=== PATIENT | female | born 1985 | race Caucasian/White ===

== ENCOUNTER 2018-01-25 13:47 | Emergency (ER) | payer SELFPAY ==
[2018-01-25 13:52] VITALS: BP 173/112; PULSE 104; RESP 16; TEMP 36.8; O2SAT 96; BMI 30.9
[2018-01-25] MEDS: HYDROcodone Bitartrate/Apap 5/325 Tablet PO (14:40)
--- NOTE | 2018-01-25 14:48 | RAD_ITS ---
STUDY: X-RAY - LEFT SHOULDER REASON FOR EXAM: Female, 32 years old. Pain following injury. TECHNIQUE: 2 view(s) of the shoulder. COMPARISON: None. FINDINGS: Normal glenohumeral articulation. Normal acromioclavicular joint. Normal acromion. Normal humeral head and visualized proximal humerus. The soft tissue structures are unremarkable. Normal visualized pulmonary apex. RAD/Shoulder min 2 Views IMPRESSION: Normal x-ray examination of the shoulder. Electronically Signed: Shalom Lewis MD at 15:04 EDT Tel [phone], Service support ,
--- NOTE | 2018-01-25 15:08 | ED.VISSUMM ---
- ER Visit Summary Date of Service: 01/25/18 Chief Complaint: Left shoulder pain after traumatic injury History of Present Illness: The patient is a 32 F who is right-handed and was doing flips. She landed on her left shoulder. Her arm was initially outstretched. She states she cannot move it. She denies paresthesia, anesthesia motors. She denied head trauma. Denies neck pain. No radicular pain. She denies any cardiac respiratory symptoms. Physical Examination: Patient vitals are noted. She appears in discomfort. She is holding her left upper extremity internally rotated and adductor. Radial pulses palpable. Axillary, median, radial and ulnar function intact. There is no pain the patient of the clavicle or AC joint. There is pain abrasion of the proximal humerus. She is apprehensive will not allow me to AB duct her left arm. There is no pain the patient of the lateral medial epicondyle has no pain the patient malignant process. Is no pain the patient over the radial head with supination pronation. Is no pain the patient with distal radius ulna. No pain patient with carpal bones, metacarpal bones or phalanges. Test Results: Two-view x-ray of the shoulder was obtained and reveals no evidence of fracture to the clavicle there is any widening of the AC joint. There is no fracture proximal humerus. Emergency Department Course and Treatment: X-ray was obtained to evaluate for fracture. Based on my dictation the x-ray was negative and patient allowed me now to AB duct to 90 degrees. She had negative drop test. She was medicated with one [place] tablet. Treatment Plan: Rest, ice, pendulous exercises and opiate analgesia since she had anaphylaxis to NSAIDs. Disposition: Discharge to home Impression: Left shoulder strain initial encounter This note was generated with [employer] dictation software. It may contain incorrect words, spelling, and punctuation that were not noted in review of the chart prior to signing ED Disposition - Plan for ED Patient: Disposition: Home or Assisted Living Chief Complaint: Upper Extremity Injury Instructions: ED Sprain Shoulder Prescriptions: Hydrocodone Bitart/Apap 5-325 [[place] 5MG-325MG] 1 tab PO Q6H PRN PRN 3 Days #10 tab PRN Reason: Pain Referrals: Kamari Pro MD [Primary Care Provider] - 3-5 Days if not improving
--- NOTE | 2018-01-25 15:13 | ED.DCSUM_ITS ---
- ER Visit Summary Date of Service: 01/25/18 Chief Complaint: Left shoulder pain after traumatic injury History of Present Illness: The patient is a 32 F who is right-handed and was doing flips. She landed on her left shoulder. Her arm was initially outstretched. She states she cannot move it. She denies paresthesia, anesthesia motors. She denied head trauma. Denies neck pain. No radicular pain. She denies any cardiac respiratory symptoms. Physical Examination: Patient vitals are noted. She appears in discomfort. She is holding her left upper extremity internally rotated and adductor. Radial pulses palpable. Axillary, median, radial and ulnar function intact. There is no pain the patient of the clavicle or AC joint. There is pain abrasion of the proximal humerus. She is apprehensive will not allow me to AB duct her left arm. There is no pain the patient of the lateral medial epicondyle has no pain the patient malignant process. Is no pain the patient over the radial head with supination pronation. Is no pain the patient with distal radius ulna. No pain patient with carpal bones, metacarpal bones or phalanges. Test Results: Two-view x-ray of the shoulder was obtained and reveals no evidence of fracture to the clavicle there is any widening of the AC joint. There is no fracture proximal humerus. Emergency Department Course and Treatment: X-ray was obtained to evaluate for fracture. Based on my dictation the x-ray was negative and patient allowed me now to AB duct to 90 degrees. She had negative drop test. She was medicated with one [place] tablet. Treatment Plan: Rest, ice, pendulous exercises and opiate analgesia since she had anaphylaxis to NSAIDs. Disposition: Discharge to home Impression: Left shoulder strain initial encounter This note was generated with [employer] dictation software. It may contain incorrect words, spelling, and punctuation that were not noted in review of the chart prior to signing ED Disposition - Plan for ED Patient: Disposition: Home or Assisted Living Chief Complaint: Upper Extremity Injury Instructions: ED Sprain Shoulder Prescriptions: Hydrocodone Bitart/Apap 5-325 [[place] 5MG-325MG] 1 tab PO Q6H PRN PRN 3 Days #10 tab PRN Reason: Pain Referrals: Kamari Pro MD [Primary Care Provider] - 3-5 Days if not improving
[2018-01-25 15:47] VITALS: BP 168/94; PULSE 89; RESP 16; O2SAT 98
== END 2018-01-25 15:51 | disposition home or self-care (01) ==
LOC: ED 15:29
PROVIDERS: Emergency Provider Emergency Medicine; Family Provider Family Medicine; PCP Family Medicine
DX: S46.912A Strain of unspecified muscle, fascia and tendon at shoulder and upper arm level, left arm, initial encounter (principal); W19.XXXA Unspecified fall, initial encounter; Y93.43 Activity, gymnastics; Y92.9 Unspecified place or not applicable; Y99.9 Unspecified external cause status; Z79.899 Other long term (current) drug therapy
CPT/HCPCS: 73030; 99283

== ENCOUNTER → 2018-07-23 13:00 | Outpatient (CLI) | payer MEDICAID, SELFPAY ==
[2018-07-24 14:35] LABS: Chlamydia Trachomatis by PCR Negative (Negative); Neisserai gonorrhoeae by PCR Negative (Negative); Probe Check PASS; Sample Adequacy Control PASS; Specimen Processing Control PASS
[2018-07-31 16:10] LABS: HPV Reflexed? NOT INDICATED
== END ==
PROVIDERS: Visit Provider Obstetrics & Gynecology
DX: Z12.4 Encounter for screening for malignant neoplasm of cervix (principal); Z11.3 Encounter for screening for infections with a predominantly sexual mode of transmission
CPT/HCPCS: 87491; 87591; 87624; 88175; G0145

== ENCOUNTER 2020-07-23 11:47 | Outpatient (RCR) | payer MEDICAID, SELFPAY | END 2020-09-08 23:59 | LOC: IMMUN 11:47 | PROVIDERS: Referring Provider Family Medicine; Visit Provider Family Medicine | DX: Z23 Encounter for immunization (principal) | CPT/HCPCS: 0001A; 0002A; 91300 ==

== ENCOUNTER 2023-11-27 11:29 | Emergency (ER) | payer OTHER, SELFPAY ==
[2023-11-27 11:31] VITALS: BP 215/135; PULSE 101; RESP 16; TEMP 36.3; O2SAT 100; BMI 30.5
--- NOTE | 2023-11-27 11:36 | EKG12_ITS ---
Test Reason : Blood Pressure : / mmHG Vent. Rate : 088 BPM Atrial Rate : 088 BPM P-R Int : 142 ms QRS Dur : 090 ms QT Int : 382 ms P-R-T Axes : 003 018 043 degrees QTc Int : 462 ms Normal sinus rhythm Normal ECG Confirmed by Chevy Gann ([id number]), senior editor KAVON BARONE ([id number]) on 11/29/2023 8:16:27 AM Referred By: BRANDY Confirmed By:Chevy Gann
[2023-11-27 12:36] LABS: Absolute Lymphocyte Count 2.14 X10^3/uL (0.83-4.51); Absolute Neutrophil Count 6.8 X10^3/uL (2.0-7.7); Basophil# 0.04 X10^3/uL; Basophil% 0.4 % (0-1); Eosinophil# 0.08 X10^3/uL; Eosinophils% 0.8 % (0-5); Hematocrit 43.8 % (37-47); Hemoglobin 14.5 g/dL (12.0-15.0); Lymphocyte # 2.14 X10^3/ul (0.83-4.51); Mean Corp Hgb Conc 33.1 g/dL (32-36); Mean Corpuscular Hgb 30.1 pg (27.0-32.0); Mean Corpuscular Volume 91.1 fL (81-99); Mean Platelet Vol. 9.6 fl (6.2-12.0); Monocyte# 0.65 X10^3/uL; Monocyte% 6.7 % (0-10); NRBC Flagged by Analyzer 0 % (0-5); Neutrophil # 6.75 X10^3/uL (2.7-7.7); Neutrophil % 69.5 % (47-70); Platelet Count 260 K/mm3 (150-450); RBC Distribution Width CV 11.2 % (11.6-14.6); RBC Distribution Width SD 37.7 fl (35.1-43.9); Red Blood Count 4.81 M/mm3 (4.2-5.4); White Blood Count 9.7 K/mm3 (4.4-11.0)
--- NOTE | 2023-11-27 12:55 | RAD_ITS ---
STUDY: X-RAY CHEST REASON FOR EXAM: Female, 38 years old. Chest pain. TECHNIQUE: Single frontal view of the chest. COMPARISON: None. FINDINGS: The lungs are clear and expanded. There is no demonstrated pleural abnormality. Normal size heart. Normal mediastinum and jessica. Normal visualized pulmonary arteries. Normal visualized aortic arch and descending thoracic aorta. No abnormality of the visualized soft tissue structures of the upper abdomen. RAD/Chest 1 View (Portable) IMPRESSION: Normal x-ray examination of the chest. Electronically Signed: Anuj Mancilla MD at 13:12 EDT ,
[2023-11-27 13:00] VITALS: O2SAT 98
--- NOTE | 2023-11-27 13:02 | EDS_ITS ---
HPI History of Present Illness Chief Complaint: Shortness of Breath Informant: patient Narrative Narrative: 38-year-old female presenting to the emergency concerns for hypertension. Patient states that yesterday she developed a sore throat and some fatigue. Today after dropping her child off at school she decided to take a nap prior to going to work in case she was getting sick. She began to have some right arm discomfort and felt a flushed feeling that she has had before when she has had hypertension. She noticed some tightness particularly right side of her chest when she went to take a full breath. She did not feel any wheezing. No cough no rhinorrhea. Patient states that now she feels pretty good. She states that the right arm is more annoying. She is not currently treated for hypertension as she states has been very episodic and many years ago was the last time it happened to her. No headache. No neurologic deficits. PFSH PFSH Home Medications ?Medication ?Instructions ?Recorded ?Last Taken ?Type dextroamphetamine-amphetamine 15 25 mg PO BID 07/17/14 Unknown History mg tablet (Adderall) loratadine 10 mg tablet (Claritin) 10 mg PO DAILY PRN PRN Allergies 01/25/18 Unknown History clonidine HCl 0.1 mg tablet 0.1 mg PO Q6H PRN hypertensive 11/27/23 Unknown Rx emergency #10 tabs Allergy/AdvReac Type Severity Reaction Status Date / Time codeine Allergy Unknown Verified 11/27/23 11:31 naproxen Allergy Hives Verified 11/27/23 11:31 Social History Smoking Status: Never smoker [facility] ED Constitutional Constitutional ED: Denies chills, fever(s) or weight loss Eyes Eyes: Denies change in vision or diplopia ENT ENT ED: Reports sore throat; Denies ear pain or rhinorrhea Cardiovascular Cardiovascular: Reports chest pain; Denies orthopnea, palpitations or racing heartbeat Respiratory/Chest Respiratory/Chest: Reports dyspnea; Denies cough or orthopnea Gastrointestinal Gastrointestinal: Denies abdominal pain, diarrhea, nausea or vomiting Genitourinary Genitourinary ED: Denies dysuria, hematuria or urinary frequency Musculoskeletal Musculoskeletal: Denies arthralgias or myalgias Integumentary Denies abscess or rash Neurologic Neurologic: Denies headache(s) or weakness Psychiatric Psychiatric: Denies anxiety, depression, suicidal ideation or suicidal thoughts Endocrine Endocrinology: Denies polydipsia, polyphagia or polyuria Allergic/Immunologic Allergic/Immunologic ED: Denies mouth swelling, tongue swelling or urticaria EXAM Physical Exam Const Vital Signs: 11/27/23 11:31 11/27/23 12:27 11/27/23 13:00 Temperature 97.4 F L Temperature Source Temporal Pulse Rate 101 H Respiratory Rate 16 Respiratory Effort Normal Non-Labored Respiratory Depth Normal Respiratory Pattern Normal Blood Pressure 215/135 H Blood Pressure Mean 161 Pulse Ox 100 Oxygen Delivery Method Room Air Room Air Room Air 11/27/23 13:19 11/27/23 13:25 11/27/23 14:32 Temperature Temperature Source Pulse Rate 85 99 Respiratory Rate Respiratory Effort Respiratory Depth Respiratory Pattern Blood Pressure 185/120 H 200/128 H 192/103 H Blood Pressure Mean 141 152 132 Pulse Ox Oxygen Delivery Method 11/27/23 15:21 Temperature 98 F Temperature Source Pulse Rate 101 H Respiratory Rate 19 H Respiratory Effort Respiratory Depth Respiratory Pattern Blood Pressure 190/102 H Blood Pressure Mean 131 Pulse Ox 95 Oxygen Delivery Method Positive well nourished and well developed General Appearance ED: well developed HEENT Reports normocephalic, head/scalp atraumatic and moist mucous membranes Eyes PERRL and EOMs intact bilaterally Neck no lymphadenopathy, supple and no JVD Resp normal respiratory effort and clear to auscultation bilaterally Cardio regular rate, regular rhythm and no murmurs GI normal to inspection, nondistended, normoactive bowel sounds and non-tender Palpation: soft Back/Spine no CVA tenderness and normal ROM Extremity normal to inspection General Extremety ED: Negative for edema General Extremity: Negative for edema Neuro oriented x3 and CN's II-XII intact bilaterally Sensorium / Orientation: alert Motor Exam: strength 5/5 throughout Psych mental status grossly normal Mood & Affect: Negative for depressed or tearful Skin no rashes or lesions noted and no wounds MDM MDM MDM Narrative Medical decision making narrative: Differential diagnosis includes but not limited to acute coronary syndrome aortic dissection/aneurysm hypertensive urgency/emergency renal and liver dysfunction CBC is essentially normal. Troponin is normal. Normal creatinine. My independent interpretation of the chest x-ray is no acute process normal mediastinal silhouette. Patient received a dose of hydralazine and later clonidine. Her blood pressure is improved but still high however hesitant to take her much lower. Patient is feeling rather asymptomatic at the current time. I will write for some clonidine should her blood pressure rise again to a concerning range. The patient continues to have high blood pressure would recommend PCP or cardiology follow-up. Return if symptomatic or concerns. Patient is comfortable with this plan. History & Record Review Discussion w/independent historian: Patient Lab Data Attestation: I reviewed the patient's lab results. Labs: Laboratory Results - last 24 hr 11/27/23 11/27/23 11/27/23 12:10 12:10 12:31 WBC Cancelled 9.7 Corrected WBC Cancelled RBC Cancelled 4.81 Hgb Cancelled 14.5 Hct Cancelled 43.8 MCV Cancelled 91.1 MCH Cancelled 30.1 MCHC Cancelled 33.1 RDW Std Deviation Cancelled 37.7 RDW Coeff of Maria Teresa Cancelled 11.2 L Plt Count Cancelled 260 MPV Cancelled 9.6 Immature Gran % (Auto) Cancelled 0.600 Neut % (Auto) Cancelled 69.5 Lymph % (Auto) Cancelled 22.0 Bond % (Auto) Cancelled 6.7 Eos % (Auto) Cancelled 0.8 Baso % (Auto) Cancelled 0.4 Absolute Neuts (auto) Cancelled 6.8 Absolute Lymphs (auto) Cancelled 2.14 Total Counted Cancelled Neutrophils % (Manual) Cancelled Band Neutrophils % Cancelled Lymphocytes % (Manual) Cancelled Monocytes % (Manual) Cancelled Eosinophils % (Manual) Cancelled Basophils % (Manual) Cancelled Metamyelocytes % Cancelled Myelocytes % Cancelled Promyelocytes % Cancelled Blast Cells % Cancelled Plasma Cell % (Manual) Cancelled Other Cells % Cancelled Nucleated RBC % Cancelled 0 Nucleated RBCs/100 WBC Cancelled Differential Comment Cancelled Diff Path Review Cancelled Hypersegmented Neuts Cancelled Atypical Lymphocytes Cancelled Reactive Lymphocytes Cancelled Smudge Cells Cancelled Toxic Granulation Cancelled Toxic Vacuolation Cancelled Dohle Bodies Cancelled Valerie Rods Cancelled Platelet Estimate Cancelled Plt Morphology Comment Cancelled RBC Morphology Cancelled Cancelled Polychromasia Cancelled Hypochromasia Cancelled Basophilic Stippling Cancelled Anisocytosis Cancelled Microcytosis Cancelled Macrocytosis Cancelled Spherocytes Cancelled Sickle Cells Cancelled Target Cells Cancelled Tear Drop Cells Cancelled Ovalocytes Cancelled Stomatocytes Cancelled [place] Bodies Cancelled [place] Cells Cancelled Bite Cells Cancelled Crenated Cell Cancelled Acanthocytes (Spur) Cancelled Rouleaux Cancelled Schistocytes Cancelled Sodium Cancelled Potassium Cancelled Chloride Cancelled Carbon Dioxide Cancelled Anion Gap Cancelled BUN Cancelled Creatinine Cancelled Estim Creat Clear Calc Cancelled Est GFR (MDRD) Af Amer Cancelled Est GFR (MDRD) Non-Af Cancelled BUN/Creatinine Ratio Cancelled Glucose Cancelled Calcium Cancelled Troponin I High Sens Cancelled 11/27/23 12:52 WBC Corrected WBC RBC Hgb Hct MCV MCH MCHC RDW Std Deviation RDW Coeff of Maria Teresa Plt Count MPV Immature Gran % (Auto) Neut % (Auto) Lymph % (Auto) Bond % (Auto) Eos % (Auto) Baso % (Auto) Absolute Neuts (auto) Absolute Lymphs (auto) Total Counted Neutrophils % (Manual) Band Neutrophils % Lymphocytes % (Manual) Monocytes % (Manual) Eosinophils % (Manual) Basophils % (Manual) Metamyelocytes % Myelocytes % Promyelocytes % Blast Cells % Plasma Cell % (Manual) Other Cells % Nucleated RBC % Nucleated RBCs/100 WBC Differential Comment Diff Path Review Hypersegmented Neuts Atypical Lymphocytes Reactive Lymphocytes Smudge Cells Toxic Granulation Toxic Vacuolation Dohle Bodies Valerie Rods Platelet Estimate Plt Morphology Comment RBC Morphology Polychromasia Hypochromasia Basophilic Stippling Anisocytosis Microcytosis Macrocytosis Spherocytes Sickle Cells Target Cells Tear Drop Cells Ovalocytes Stomatocytes [place] Bodies [place] Cells Bite Cells Crenated Cell Acanthocytes (Spur) Rouleaux Schistocytes Sodium 138 Potassium 4.1 Chloride 107 Carbon Dioxide 28.0 Anion Gap 3 L BUN 11 Creatinine 0.69 Estim Creat Clear Calc 111.41 Est GFR (MDRD) Af Amer 121 Est GFR (MDRD) Non-Af 100 BUN/Creatinine Ratio 15.9 Glucose 107 H Calcium 9.1 Troponin I High Sens 6 Radiography Diagnostic Testing: Clinical Impression(s) from Imaging Studies Chest X-Ray 11/27/23 12:55 IMPRESSION: Normal x-ray examination of the chest. Electronically Signed: Anuj Mancilla MD at 13:12 EDT Reading Location ID and State: [facility] / [place] , Service support , EKG Initial EKG: Attestation: I personally reviewed and interpreted this EKG as follows: Comments: Normal sinus rhythm ventricular rate of 88 bpm Discharge Plan Triage Chief Complaint: Shortness of Breath ED Provider: Lauri Puga Dx/Rx/DC Orders Clinical Impression: Hypertensive urgency, Chest pain Instructions: ED High Blood Pressure Hypertension Prescriptions: New clonidine HCl 0.1 mg tablet 0.1 mg PO Q6H PRN (Reason: hypertensive emergency) Qty: 10 0RF No Action dextroamphetamine-amphetamine [Adderall] 15 MG tablet 25 mg PO BID loratadine [Claritin] 10 MG tablet 10 mg PO DAILY PRN PRN (Reason: Allergies) Stand Alone Forms: ED Work / School Excuse, Work Status Form Primary Care Provider: Care Physician,No Primary Referrals: Chevy Gann MD [Med Staff - Active Staff] - As Needed Care Physician,No Primary [Primary Care Provider] - Activity Restrictions/Additional Instructions: Please take the clonidine if you find your systolic (top number) pressure greater than 200 or your diastolic pressure (bottom number greater than 115) If you continue to have elevated pressures I do recommend following up with primary care or the cash applications representative listed above Print Language: Martiniquais Disposition Disposition: Home, Self Care Discharge Date/Time: 11/27/23 15:27
[2023-11-27 13:15] LABS: Anion Gap 3 (5-15); BUN 11 mg/dL (7-18); BUN/Creat Ratio 15.9 RATIO (10-20); Calcium,Total 9.1 mg/dL (8.5-10.1); Chloride 107 mmol/L (98-107); Creatinine, Serum 0.69 mg/dL (0.55-1.02); EST Glomerular Filtration Rate 100 mL/min (>60); Est Glom Filt Rate - Afr Amer 121 mL/min (>60); Estimated Creatinine Clearance 111.41 ml/min; Glucose 107 mg/dL (74-106); Potassium 4.1 mmol/L (3.5-5.1); Sodium Level 138 mmol/L (136-145); Troponin-I HS (w/2H Reflex) 6 pg/mL (3.0-54.0)
[2023-11-27 13:19] VITALS: BP 185/120; PULSE 85
[2023-11-27] MEDS: hydrALAZINE 20 MG/ML Vial IV (13:19)
[2023-11-27 13:25] VITALS: BP 200/128
[2023-11-27 14:32] VITALS: BP 192/103; PULSE 99
[2023-11-27] MEDS: cloNIDine HCl 0.1 MG Tablet PO (14:33)
[2023-11-27 14:54] LABS: Reflex Troponin-HS? (from REC) Y
--- NOTE | 2023-11-27 15:20 | ED.RN ---
provider notified of pt elevated blood pressure. per Dr. Puga pt is still okay to DC.
[2023-11-27 15:21] VITALS: BP 190/102; PULSE 101; RESP 19; TEMP 36.6; O2SAT 95
[2023-11-27 15:35] LABS: Troponin-I HS 7 pg/mL (3.0-54.0)
== END 2023-11-27 15:27 | disposition home or self-care (01) ==
PROVIDERS: Emergency Provider Emergency Medicine; Visit Provider Emergency Medicine
DX: I16.0 Hypertensive urgency (principal); R07.9 Chest pain, unspecified; R06.00 Dyspnea, unspecified; I10 Essential (primary) hypertension; Z79.899 Other long term (current) drug therapy
CPT/HCPCS: 71045; 80048; 84484; 85025; 93005; 96374; 99283; A4216

== ENCOUNTER → 2024-08-19 | Outpatient (CLI) | payer OTHER, SELFPAY ==
--- NOTE | 2024-08-19 10:58 | RAD_ITS ---
PROCEDURE: FOOT MIN 3 VIEWS N/A REASON FOR EXAM: PAIN Of the great toe. TECHNIQUE: 3 views of the right foot. COMPARISON: None FINDINGS: Bones: No visible fracture. No suspicious bone lesion. Tiny spur at the insertion of the Achilles tendon. Joints: Moderate degree of degenerative changes at the 1st metatarsophalangeal joint in keeping with osteoarthritis. No evidence of fracture or dislocation. Soft tissues: Mild degree of soft tissue swelling. 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 No acute fracture or dislocation. Mild degree of soft tissue swelling. Reading Location: [facility]
== END | disposition home or self-care (01) ==
LOC: MTRAD 10:58
PROVIDERS: Referring Provider Physician Assistant; Visit Provider Physician Assistant
DX: M79.671 Pain in right foot (principal)
CPT/HCPCS: 73630

== ENCOUNTER 2024-10-30 20:40 | Inpatient (IN) | payer OTHER, SELFPAY ==
[2024-10-30] VITALS (9 sets, daily range): BP systolic 160–222; BP diastolic 95–121; PULSE 68–80; RESP 11–18; TEMP 36.6; O2SAT 98–100; BMI 29.3
--- NOTE | 2024-10-30 20:43 | EKG12_ITS ---
Test Reason : STROKE Blood Pressure : */* mmHG Vent. Rate : 73 BPM Atrial Rate : 73 BPM P-R Int : 152 ms QRS Dur : 94 ms QT Int : 428 ms P-R-T Axes : 33 26 51 degrees QTcB Int : 471 ms Normal sinus rhythm Normal ECG Confirmed by MAE SCHWAB, STELLA ([id number]), city editor STEPHANIE VILLA ([id number]) on 10/31/2024 8:43:28 AM Referred By: Confirmed By: STELLA WALL MD
--- NOTE | 2024-10-30 20:44 | ED.VIS.STROK ---
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 Patient's last known well was 3:30 PM today. Patient has been having weakness of her left upper and lower extremities. Patient denies any difficulty with her speech. Patient admits to a headache and some nausea. Patient denies any vomiting. Patient denies any chest pain. Patient denies any fevers or chills. [facility] Medical History (Updated 10/31/24 @ 00:[address] Domenico Silva, ) HTN (hypertension) ADHD Migraine Strain of great toe, right Contusion of right great toe without damage to nail Home Medications ?Medication ?Instructions ?Recorded ?Last Taken ?Type dextroamphetamine-amphetamine 15 25 mg PO BID 07/17/14 Unknown History mg tablet (Adderall) loratadine 10 mg tablet (Claritin) 10 mg PO DAILY PRN PRN Allergies 01/25/18 Unknown History clonidine HCl 0.1 mg tablet 0.1 mg PO Q6H PRN hypertensive 11/27/23 Unknown Rx emergency #10 tabs dexamethasone sodium phosphate 0.1 1 drp ophthalmic (eye) 4X/DAY 10/30/24 Unknown History % eye drops dextroamphetamine-amphetamine 30 1 tab PO BID 10/30/24 Unknown History mg tablet erythromycin 5 mg/gram (0.5 %) eye 1 applic ophthalmic (eye) QPM 10/30/24 Unknown History ointment rizatriptan 10 mg tablet 10 mg PO Q2H PRN migraine headache 10/30/24 Unknown History Allergy/AdvReac Type Severity Reaction Status Date / Time codeine Allergy Unknown Verified 10/30/24 21:22 naproxen Allergy Hives Verified 10/30/24 21:22 Social History Smoking Status: Current every day smoker tobacco type: e-cigarettes EXAM Physical Exam Const Vital Signs: 10/30/24 20:41 10/30/24 20:50 10/30/24 20:50 Temperature 98 F Temperature Source Oral Pulse Rate 80 Respiratory Rate 17 Blood Pressure 222/121 H Blood Pressure Mean 154 Pulse Ox 100 Oxygen Delivery Method Room Air Room Air 10/30/24 21:00 10/30/24 21:15 10/30/24 21:30 Temperature Temperature Source Pulse Rate 70 68 Respiratory Rate 11 L 17 Blood Pressure 201/116 H 188/109 H 171/102 H Blood Pressure Mean 144 135 125 Pulse Ox 99 99 Oxygen Delivery Method Room Air Room Air 10/30/24 22:00 10/30/24 22:30 10/30/24 23:00 Temperature Temperature Source Pulse Rate 68 68 69 Respiratory Rate 15 14 15 Blood Pressure 172/97 H 160/107 H 162/99 H Blood Pressure Mean 122 124 120 Pulse Ox 98 99 100 Oxygen Delivery Method Room Air Room Air Room Air 10/30/24 23:14 Temperature 98 F Temperature Source Pulse Rate 72 Respiratory Rate 18 Blood Pressure 163/95 H Blood Pressure Mean 117 Pulse Ox 100 Oxygen Delivery Method Positive well nourished and well developed General Appearance ED: well developed and NAD HEENT Reports moist mucous membranes Neck supple and no JVD Resp normal respiratory effort and clear to auscultation bilaterally Cardio Rate: regular rate Rhythm: regular rhythm GI soft to palpation, non-tender and non-distended Extremity normal to inspection General Extremety ED: Negative for deformity or edema General Extremity: Negative for deformity or edema Neuro oriented x3 and CN's II-XII intact bilaterally Didier Coma Scale: document GCS findings Spontaneous Obeys Commands Oriented 15 Sensorium / Orientation: alert Speech: speech normal MDM MDM MDM Narrative Medical decision making narrative: Prehospital stroke alert was called. Upon arrival, patient was evaluated in the ambulance bay. Patient had a left upper and lower extremity weakness. Patient was taken immediately to CT scan for CT scan of the brain to assess for intracranial bleeding and stroke. CTA of the head and neck was also obtained to assess for large vessel occlusion and vascular stenosis. Chest x-ray will be obtained to assess for pneumonia or bronchitis. EKG will be obtained to assess for cardiac dysrhythmia and cardiac ischemia. CBC will be obtained to assess for leukocytosis and anemia. Basic metabolic profile will be obtained to assess for electrolyte abnormality renal function. PT with INR and PTT will be obtained to assess for coagulopathy. High-sensitivity troponin will be obtained to assess for cardiac ischemia. 2-hour repeat high-sensitivity troponin will be obtained to assess for ongoing cardiac ischemia. Lab Data Attestation: I reviewed the patient's lab results. Lab results narrative: CBC was reviewed. Hemoglobin was slightly elevated at 18.5. Hematocrit was slightly elevated at 54.8. The remainder is within normal limits. PT with INR and PTT were reviewed and were within normal limits. Basic metabolic profile was reviewed and was essentially within normal limits. Initial high-sensitivity troponin was reviewed and was less than 6. Labs: Laboratory Results - last 24 hr 10/30/24 10/30/24 20:40 22:45 WBC 10.5 RBC 6.08 H Hgb 18.5 H* Hct 54.8 H MCV 90.1 MCH 30.4 MCHC 33.8 RDW Std Deviation 39.9 RDW Coeff of Maria Teresa 12.1 Plt Count 311 MPV 10.0 Immature Gran % (Auto) 0.600 Neut % (Auto) 79.3 H Lymph % (Auto) 15.0 L Wilcox % (Auto) 4.2 Eos % (Auto) 0.4 Baso % (Auto) 0.5 Absolute Neuts (auto) 8.3 H Absolute Lymphs (auto) 1.57 Nucleated RBC % 0 PT 11.8 INR 0.9 APTT 25.8 Sodium 141 Potassium 3.4 Chloride 100 Carbon Dioxide 24.6 Anion Gap 16 H BUN 13 Creatinine 0.80 Estim Creat Clear Calc 93.24 Est GFR (MDRD) Non-Af 95 BUN/Creatinine Ratio 16.5 Glucose 92 Hemoglobin A1c 5.4 Calcium 10.5 Troponin T High Sens < 6 Troponin T Hi Sens 2 Hr < 6 TSH 3.230 Radiography Chest X-Ray - ED: 1 View, Read by ED Physician, Read by Radiologist and No Acute Disease Diagnostic Testing: Clinical Impression(s) from Imaging Studies Brain CT 10/30/24 20:46 IMPRESSION: Left frontal lobe periventricular white matter focal hypodensity measuring approximally 7 x 7 mm, which may reflect a lacunar infarction however acute infarction is not entirely excluded. Dr. Silva was notified by Jeanette De Jesus at 9:01 pm EST on 10/30/24. Reading Location: [facility] Head/Neck CTA 10/30/24 20:52 IMPRESSION: No acute large vessel occlusion. No high grade stenosis. Reading Location: [facility] Chest X-Ray 10/30/24 21:41 IMPRESSION: No acute cardiopulmonary disease. Reading Location: [facility] CT scan of the brain was obtained. There is a left frontal lobe periventricular hypodensity measuring approximately 7 x 7 mm. This could be a lacunar infarct. This was interpreted by the radiologist and was also independently reviewed by myself. CTA of the head and neck was obtained. There is no acute large vessel occlusion. There is no high-grade stenosis. This was interpreted by the radiologist and was also independently reviewed by myself. Portable 1 view chest x-ray was obtained. On my independent interpretation, lung de leon are clear. There is normal cardiac silhouette. Bony thorax is normal. There is no acute process noted. Radiologist also interpreted the x-ray and agrees. EKG Initial EKG: Attestation: I personally reviewed and interpreted this EKG as follows: Interpretation: Sinus Rhythm (73) and No Acute Injury Pattern Comments: EKG was obtained. On my independent interpretation, it showed a normal sinus rhythm with a rate of 73. MI interval, QRS interval, and QTc intervals were all normal. [place] was normal. There are no acute ST or T wave changes. Prior EKG tracings: available for review Prior: Unchanged (11/27/2023) Management Discussion w/another healthcare provider: Hospitalist, Cafeteria Server (Stroke neurologist [facility]) and Radiologist Treatment and Re-Evaluation Narrative: Patient was evaluated by stroke neurologist. Patient is outside the window for tenecteplase. Patient's blood pressure remained elevated. Patient was given labetalol for her blood pressure. Patient was given Reglan, Benadryl, and IV fluids for migraine headache. Patient states her headache improved after this. Patient was advised of her findings. Patient was advised of the need for admission to the hospital for further stroke evaluation. Patient is agreeable with this. Case was discussed with the hospitalist. He will admit the patient for observation. Patient understood and was agreeable with plan. All questions were answered. Critical Care Time Critical Care Time: Yes Critical care time (excluding procedures): 30-74 minutes (36), Including time spent:, Discussing w/Patient &/or Family/Geomorphologist, Discussing w/Consultants, Arranging Admission or Transfer and Performing Direct Patient Care at Bedside Discharge Plan Dx/Rx/DC Orders Clinical Impression: Acute left-sided weakness, Hypertension, Migraine headache, Overweight (BMI 25.0-29.9), Polycythemia Disposition Disposition: [facility] Discharge Date/Time: 10/31/24 00:35 NIHSS NIHSS 1a. Level of Consciousness: 0 - Alert; keenly responsive 1b. LOC Questions: 0 - Answers BOTH questions correctly 1c. LOC Commands: 0 - Performs BOTH tasks correctly 2. Best Gaze: 0 - Normal 4. Facial Palsy: 0 - Normal symmetrical movements 5a. Left Arm: 1 - Drift; arm drifts downward but doesn?t hit the bed 5b. Right Arm: 0 - No drift; arm holds 90 (or 45) degrees for full 10 seconds 6a. Left Le - No effort against gravity; leg falls to bed immediately 6b. Right Le - No drift; leg holds 30-degree position for full 5 seconds 8. Sensory: 0 - Normal; no sensory loss 9. Best Language: 0 - No aphasia; normal 10. Dysarthria: 0 - Normal Total: 4 Stroke Questions Stroke Team Activated: Yes Reviewed Inclusion/Exclusion criteria: Yes IV Thrombolytic Administered: No (Patient's symptoms began more than 3 hours prior to arrival.)
--- NOTE | 2024-10-30 20:46 | CT_ITS ---
PROCEDURE: STROKE BRAIN/HEAD WITHOUT CONT 10/30/2024 REASON FOR EXAM: NEURO DEFICIT, ACUTE, STROKE SUSPECTED TECHNIQUE: STROKE BRAIN/HEAD WITHOUT CONT Coronal and Sagittal reconstruction series were provided. One or more dose reduction techniques were used (e.g., Automated exposure control, adjustment of the mA and/or kV according to patient size, use of iterative reconstruction technique. RADIATION DOSE SUMMARY: DLP: 813 mGycm COMPARISON: none FINDINGS: Left frontal lobe periventricular white matter focal hypodensity measuring approximally 7 x 7 mm, which may reflect a lacunar infarction however acute infarction is not entirely excluded. There is no intracranial hemorrhage, or mass effect. There is no hydrocephalus or significant midline shift. No acute, depressed calvarial fractures. No large scalp hematomas. The paranasal sinuses are clear. CT/STROKE Brain/Head without Cont IMPRESSION: Left frontal lobe periventricular white matter focal hypodensity measuring appr oximally 7 x 7 mm, which may reflect a lacunar infarction however acute infarction is not entirely excluded. Dr. Silva was notified by Jeanette De Jesus at 9:01 pm EST on 10/30/24. Reading Location: [facility]
--- NOTE | 2024-10-30 20:52 | CT_ITS ---
PROCEDURE: STROKE CTA HEAD AND NECK W/CON 10/30/2024 REASON FOR EXAM: NEURO DEFICIT, ACUTE, STROKE SUSPECTED TECHNIQUE: STROKE CTA HEAD AND NECK W/CON Multiplanar Sagittal and Coronal images were obtained. CONTRAST: 100 mL of Isovue 370 One or more dose reduction techniques were used (e.g., Automated exposure control, adjustment of the mA and/or kV according to patient size, use of iterative reconstruction technique). RADIATION DOSE SUMMARY: DLP: 987 mGycm COMPARISON: none FINDINGS: The aortic arch demonstrates a type I configuration. The ostia of the great vessels are patent. There is conventional branching. The right CCA is patent. There is no significant stenosis of the right carotid bifurcation by NASCET criteria. The cervical right ICA is patent. The right MCA and right CARMEN appear patent. There is no large vessel occlusion. The left CCA is patent. There is no significant stenoses at the left carotid bifurcation by NASCET criteria. The cervical left ICA is patent. The left MCA and left CARMEN appear patent. There is no large vessel occlusion. The right vertebral artery arises from the right subclavian artery. The left vertebral artery arises from the left subclavian artery. Both vertebral arteries are patent. Both vertebral arteries join to form the patent basilar artery. Both posterior cerebral arteries arise from the tip of the basilar. 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 There is no large vessel occlusion. There is no enhancing intracranial mass. [place] cervical lymph nodes are identified. The thyroid gland is heterogeneous. The lung apices demonstrate no pneumothorax. No destructive osseous abnormalities identified. CT/STROKE CTA Head AND Neck W/Con IMPRESSION: No acute large vessel occlusion. No high grade stenosis. Reading Location: [facility]
[2024-10-30 20:58] LABS: Hematocrit 54.8 % (37-47); Immature Granulocytes Count 0.060 X10^3/uL (0.0-0.0); Mean Corp Hgb Conc 33.8 g/dL (32-36); Mean Corpuscular Volume 90.1 fL (81-99); Mean Platelet Vol. 10.0 fl (6.2-12.0); NRBC Flagged by Analyzer 0 % (0-5); Platelet Count 311 K/mm3 (150-450); RBC Distribution Width CV 12.1 % (11.6-14.6); RBC Distribution Width SD 39.9 fl (35.1-43.9); Red Blood Count 6.08 M/mm3 (4.2-5.4); White Blood Count 10.5 K/mm3 (4.4-11.0)
[2024-10-30 21:00] LABS: Hemoglobin 18.5 g/dL (12.0-15.0)
[2024-10-30 21:05] LABS: Prothrombin Time (Protime)PT. 11.8 SECONDS (11.7-14.9)
[2024-10-30 21:06] LABS: Partial Thromboplast Time 25.8 Seconds (24.1-36.2)
--- NOTE | 2024-10-30 21:20 | ED.RN ---
Pt's symptom worse after returbing from ct scan. NIHSS increased from initial 4 to 9. ED MD aware.
[2024-10-30] MEDS: DiphenhydrAMINE 50 MG/ML Syringe 25 MG IV (21:26)
[2024-10-30] MEDS: 0.9% Normal Saline (1000mL) 1,000 ML 999 ML IV (21:26)
--- NOTE | 2024-10-30 21:41 | RAD_ITS ---
PROCEDURE: CHEST 1 VIEW 10/30/2024 REASON FOR EXAM: NEURO DEFICIT, ACUTE, STROKE SUSPECTED TECHNIQUE: Frontal view of the chest. COMPARISON: 11/27/2023 FINDINGS: Lungs/Pleura: Clear. Heart/Mediastinum: Normal in size. Bones/Soft tissues: Within normal limits. RAD/Chest 1 View IMPRESSION: No acute cardiopulmonary disease. Reading Location: [id number]
[2024-10-30 21:48] LABS: Anion Gap 16 (5-15); BUN 13 mg/dL (4-19); BUN/Creat Ratio 16.5 RATIO (10-20); Calcium,Total 10.5 mg/dL (7.6-11.0); Carbon Dioxide 24.6 mmol/L (21.0-32.0); Chloride 100 mmol/L (98-108); Estimated Creatinine Clearance 93.24 ml/min (50-250); Glucose 92 mg/dL (70-99); Potassium 3.4 mmol/L (3.3-5.1); Troponin T High Sensitivity < 6 ng/L (<=14)
--- NOTE | 2024-10-30 22:13 | ED.RN ---
Symptoms wax and wane, at times pt states she has less sensation on left side, other times she states she cannot feel any sensation. Facial paralysis fluctuates as well, so does dysarthria.
--- NOTE | 2024-10-30 22:52 | ED.RN ---
Pts family states pt was moving her left foot prior to this RN entering room. Pt previously had no movement in same foot and leg. Pt now withdraws left leg when bottom of left foot touched. No states she cannot move left hand at all, however moves left arm out of way of face and controls fall to bed. Pt speaking without slurring words at this time as well.
[2024-10-30 23:13] LABS: Troponin T High Sens 2 HR < 6 ng/L (<=14)
--- NOTE | 2024-10-30 23:23 | HP.PCM.HOS_ITS ---
[facility] - General General Date of Admission: 10/30/24 Date of Service: 10/30/24 Chief Complaint: Acute Left-sided Weakness with Slurred Speech. HPI Narrative JAYDA MACKEY, is a 39 F with a past medical history of being overweight; with BMI of 29.3 this admission, essential hypertension; on prn clonidine, tobacco abuse, migraine headaches; on prn rizatriptan, ADHD; on dextroamphetamine-amphetamine BID and seasonal allergies; on loratadine who presents to [facility] ER complaining of acute Left-sided weakness with slurred speech. Ms. Mackey reports her symptoms began at approximately 3:30 PM earlier today when she developed a migraine headache with nausea yesterday and this a.m. but then she experienced the abrupt-onset of weakness in the Left arm and leg. She also admits to somewhat slurred speech with occassional muscle spasms. She states her symptoms were not made better or worse by anything. She denies related fever, chills, vomiting, abdominal pain, diarrhea, constipation, chest pain, palpitations, heart racing, lower extremity edema, dysuria, hematuria or rash. In the ER she was noted to have a highly elevated initial blood pressure of 222/121 mmHg with a corresponding brain CT without contrast that revealed left frontal lobe periventricular white matter focal hypodensity measuring ~7mm x ~7mm which may reflect lacunar infarction, however acute infarction is not entirely excluded followed by a CTA of the head and neck with IV contrast that revealed no acute large vessel occlusion or high-grade stenosis. The [facility] teleneurologist suspected ischemic CVA with a stroke NIHSS score of 11 and with thrombolytics not recommended since she was outside of the time window. She was also incidentally noted to have Polycythemia with hemoglobin of 18.5 g/dL present on admission. She was admitted to the PCU for ongoing care for status expected to extend beyond 2 midnights. [facility] Medical History (Updated 10/31/24 @ 00:[address] Nehemiah Haney, DO) HTN (hypertension) ADHD Migraine Strain of great toe, right Contusion of right great toe without damage to nail Home Medications ?Medication ?Instructions ?Recorded ?Last Taken ?Type dextroamphetamine-amphetamine 15 25 mg PO BID 07/17/14 Unknown History mg tablet (Adderall) loratadine 10 mg tablet (Claritin) 10 mg PO DAILY PRN PRN Allergies 01/25/18 Unknown History clonidine HCl 0.1 mg tablet 0.1 mg PO Q6H PRN hyperten sive 11/27/23 Unknown Rx emergency #10 tabs dexamethasone sodium phosphate 0.1 1 drp ophthalmic (e ye) 4X/DAY 10/30/24 Unknown History % eye drops dextroamphetamine-amphetamine 30 1 tab PO BID 10/30/24 Unknown History mg tablet erythromycin 5 mg/gram (0.5 %) eye 1 applic ophthalmic (eye) QPM 10/30/24 Unknown History ointment rizatriptan 10 mg tablet 10 mg PO Q2H PRN migraine he adache 10/30/24 Unknown History Allergy/AdvReac Type Severity Reaction Status Date / Time codeine Allergy Unknown Verified 10/30/24 21:22 naproxen Allergy Hives Verified 10/30/24 21:22 Social History Smoking Status: Current every day smoker tobacco type: e-cigarettes ROS ROS Narrative Review of Systems: Constitutional: Patient denies fever or chills. Eyes: Patient denies changes in vision or discharge from eyes. ENT: Patient denies runny nose, sore throat or ear pain. Resp: Patient denies shortness of breath or cough. CV: Patient denies chest pain, palpitations, heart racing or lower extremity edema. GI: Patient admits to nausea but she denies vomiting as per HPI. She denies abdominal pain, diarrhea or constipation. : Patient denies dysuria or hematuria. MSK: Patient admits to Left-sided weakness as per HPI. Skin: Patient denies rash, abscess, wounds or jaundice. Psych: Patient denies symptoms of uncontrolled depression or anxiety. Neuro: Patient admits to migraine headaches and sudden-onset Left-sided weakness with transient slurred speech as per HPI. Allergy: Patient denies lip swelling, tongue swelling or urticaria. Hematology: Patient denies easy bleeding or easy bruisability. Endocrinology: Patient denies polyuria, polydipsia, polyphagia or heat/cold intolerance. 14 point ROS otherwise negative except for positives noted above in HPI. Vital Signs Vital Signs Vital Signs: 10/30/24 20:41 10/30/24 20:50 10/30/24 20:50 Temperature 98 F Temperature Source Oral Pulse Rate 80 Respiratory Rate 17 Blood Pressure 222/121 H Blood Pressure Mean 154 Pulse Ox 100 Oxygen Delivery Method Room Air Room Air 10/30/24 21:00 10/30/24 21:15 10/30/24 21:30 Temperature Temperature Source Pulse Rate 70 68 Respiratory Rate 11 L 17 Blood Pressure 201/116 H 188/109 H 171/102 H Blood Pressure Mean 144 135 125 Pulse Ox 99 99 Oxygen Delivery Method Room Air Room Air 10/30/24 22:00 10/30/24 22:30 10/30/24 23:14 Temperature 98 F Temperature Source Pulse Rate 68 68 72 Respiratory Rate 15 14 18 Blood Pressure 172/97 H 160/107 H 163/95 H Blood Pressure Mean 122 124 117 Pulse Ox 98 99 100 Oxygen Delivery Method Room Air Room Air Weight Weight: 170 lb 13.732 oz Body Mass Index (BMI) 29.3 Physical Exam Const alert, oriented x3, no apparent distress, average body habitus and healthy appearing General Appearance: cooperative HEENT normocephalic, head/scalp atraumatic, hearing grossly normal bilaterally and moist oral mucous membranes Eyes PERRL, EOMs intact bilaterally and conjunctivae normal Neck no lymphadenopathy, supple and no JVD Resp normal respiratory effort, no retractions, no use of accessory muscles and clear to auscultation bilaterally Cardio regular rate and regular rhythm GI normal to inspection, nondistended, normoactive bowel sounds, soft to palpation, non-tender and non-distended Extremity normal to inspection, full ROM and no clubbing, cyanosis or edema Skin Skin Narrative: Patient has no evidence of rash, abscess, wounds or jaundice. Neuro oriented x3 and CN's II-XII intact bilaterally Neuro Narrative: Patient has moderate left-sided weakness in the upper and lower extremity. Her speech is not slurred at this time. Sensorium / Orientation: awake, alert, oriented to person, oriented to place and oriented to time Speech: speech normal Psych affect normal Results Medical Records Data Attestation: I reviewed the patient's medical records Lab / Micro Data Attestation: I reviewed the patient's lab results. 10/30/24 20:40 10/30/24 20:40 Labs: Laboratory Results - last 24 hr 10/30/24 20:40: WBC 10.5, RBC 6.08 H, Hgb 18.5 H*, Hct 54.8 H, MCV 90.1, MCH 30.4, MCHC 33.8, RDW Std Deviation 39.9, RDW Coeff of Maria Teresa 12.1, Plt Count 311, MPV 10.0, Immature Gran % (Auto) 0.600, Neut % (Auto) 79.3 H, Lymph % (Auto) 15.0 L, Sumner % (Auto) 4.2, Eos % (Auto) 0.4, Baso % (Auto) 0.5, Absolute Neuts (auto) 8.3 H, Absolute Lymphs (auto) 1.57, Nucleated RBC % 0, PT 11.8, INR 0.9, APTT 25.8, Sodium 141, Potassium 3.4, Chloride 100, Carbon Dioxide 24.6, Anion Gap 16 H, BUN 13, Creatinine 0.80, Estim Creat Clear Calc 93.24, Est GFR (MDRD) Non-Af 95, BUN/Creatinine Ratio 16.5, Glucose 92, Calcium 10.5, Troponin T High Sens < 6 10/30/24 22:45: Troponin T Hi Sens 2 Hr < 6 Imaging Radiology Impression Brain CT 10/30/24 20:46 IMPRESSION: Left frontal lobe periventricular white matter focal hypodensity measuring approximally 7 x 7 mm, which may reflect a lacunar infarction however acute infarction is not entirely excluded. Dr. Silva was notified by Jeanette De Jesus at 9:01 pm EST on 10/30/24. Reading Location: [facility] Head/Neck CTA 10/30/24 20:52 IMPRESSION: No acute large vessel occlusion. No high grade stenosis. Reading Location: [facility] Chest X-Ray 10/30/24 21:41 IMPRESSION: No acute cardiopulmonary disease. Reading Location: [facility] Assessment & Plan Assessment/Plan (1) Ischemic cerebrovascular accident (CVA): (2) Acute left-sided weakness: (3) Migraine headache: QUALIFIERS: Intractability: not intractable Migraine type: u nspecified Status migrainosus presence: without status migrainosus Qualified Code(s): G43.909 - Migraine, unspecified, not intractable, without status migrainosus (4) Tobacco abuse: (5) Polycythemia: (6) ADHD: QUALIFIERS: Attention deficit-hyperactivity disorder type: u nspecified Qualified Code(s): F90.9 - Attention-deficit hyperactivity disorder, unspecified type (7) Overweight (BMI 25.0-29.9): PLAN: Plan 1. Left-sided weakness with transient slurred speech and head CT without contrast that revealed Left frontal lobe periventricular white matter focal hypodensity measuring ~7mm x ~7mm which may reflect lacunar infarction, however acute infarction is not entirely excluded - Admit to PCU. Check MRI of the brain without contrast to confirm suspicion of CVA noted on CT. Check echocardiogram to evaluate LVEF. Give BASA and statin plus check TSH, B12, Folate, FRANKIE, UDS and Lipid Profile to expand evaluation. Finally, [facility] teleneurology will be consulted to see patient after her new imaging and laboratory test have been completed with help appreciated in advance. 2. Uncontrolled Hypertension with highly elevated initial blood pressure of 222/121 mmHg likely due to #1 - Allow for permissive hypertension until CVA definitively ruled out on MRI. 3. Migraine headaches complicating #1 & #2 - Hold rizatriptan until further notice to diminish risk of potential cerebral artery vasospasm. Give acetaminophen as needed for [id number] (level 1-5/10) pain or fever. Give morphine IV as needed for severe (level 6-10/10) pain. 4. Tobacco abuse with Polycythemia revealed by elevated hemoglobin of 18.5 gram per deciliter present on admission compounding #1 - #3 - Tobacco Cessation will be strongly encouraged with nicotine patch however to control cravings. Check RITA-2 mutation. 5. Overweight; with BMI of 29.3 this admission - Weight loss will be recommended. Check TSH. 6. ADHD; on dextroamphetamine-amphetamine BID - Hold this agent until further notice to prevent potentially spiking blood pressure. 7. Seasonal allergies; on loratadine - Maintain loratadine as before. 8. DVT prophylaxis - Enoxaparin 40 mg sq daily plus SCD's. Total time: Approximately (but not less than) 75 minutes. Charges/Coding Visit Charges Inpatient E&M: 35002 Init Hosp L3
--- NOTE | 2024-10-30 23:42 | ECHOD_ITS ---
Reason For Study Reason For Study: TIA/Stroke Procedure This was a 2D Doppler, Color Flow transthoracic echocardiogram. Exam performed portable in patient room. Left Ventricle Normal LV size. The left ventricular ejection fraction is 65 %. Stage 1 diastolic dysfunction. No regional wall motion abnormalities noted. Right Ventricle Normal RV size. Normal systolic function. Atria Normal left atrium. Normal right atrium. Intact atrial septum. Bubble contrast study negative for right to left interatrial shunt. Mitral Valve Normal mitral valve. Tricuspid Valve Normal tricuspid valve. Aortic Valve Trisinus/trileaflet aortic valve. Pulmonic Valve Normal pulmonic valve. Great Vessels Normal aortic root. The pulmonary artery is normal size. Inferior vena cava collapse with respiration. Pericardium/Pleural No pericardial effusion. Medication Performed a rapid injection of agitated mix of 9 cc saline and 1cc air to assess for atrial septal defect. MMode/2D Measurements & Calculations LVIDd: 4.8 cm IVSd: 1.2 cm Ao root diam: 2.8 cm LVIDs: 3.1 cm LVPWd: 1.3 cm FS: 36.0 % LAV(MOD-bp): 29.9 ml LVAd ap4: 27.0 cm2 SV(MOD-sp4): 48.8 ml LAV(MOD-bp) Indexed: 16.2 ml/m2 LVLd ap4: 8.4 cm SI(MOD-sp4): 26.4 ml/m2 LAV(MOD-sp2): 12.7 ml EDV(MOD-sp4): 74.7 ml LAV(MOD-sp4): 45.0 ml EDV(sp4-el): 73.9 ml LVAs ap4: 14.1 cm2 LVLs ap4: 7.0 cm ESV(MOD-sp4): 25.9 ml ESV(sp4-el): 24.1 ml EF(MOD-sp4): 65.3 % EF(sp4-el): 67.4 % SV(sp4-el): 49.9 ml LA A4 area: 17.0 cm2 LA dimension(2D): 3.2 cm RA A4 area: 9.6 cm2 Time Measurements MV dec time: 0.20 sec Doppler Measurements & Calculations MV E max michael: 65.5 cm/sec Lat Peak E' Michael: 10.8 cm/sec Med Peak E' Michael: 10.6 cm/sec MV A max michael: 69.8 cm/sec E/E' lat: 6.1 E/E' med: 6.2 MV E/A: 0.94 MV V2 max: 83.7 cm/sec MV dec slope: 331.8 cm/sec2 Ao V2 max: 134.2 cm/sec MV max P.8 mmHg Ao max P.2 mmHg MV V2 mean: 45.0 cm/sec Ao V2 mean: 96.2 cm/sec MV mean P.98 mmHg Ao mean P.2 mmHg MV V2 VTI: 27.6 cm Ao V2 VTI: 29.1 cm LV V1 max: 101.3 cm/sec PA V2 max: 89.4 cm/sec LV V1 max P.1 mmHg PA V2 mean: 63.0 cm/sec ECHO/Echo Complete Interpretation Summary Normal LV size. The left ventricular ejection fraction is 65 %. Bubble contrast study negative for right to left interatrial shunt. Intact atrial septum Stage 1 diastolic dysfunction. Ordering Physician: Nehemiah Haney Referring Physician: Felicita PCP Performed By: Sandhya Baker and Student
--- OUTSIDE RECORDS SUMMARY | 2024-10-30 23:51 | XMS RPT_ITS | CCD ---
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 Order Comment: REDRA W. PREVIOUS SPECIMEN REJECTED DUE TO CLOT' . 11/27/23 1222 Елена Lewis. Performed By: #### L 100.0100 #### [facility] [address] [place], [address] RBC (Bld) [#/Vol] 4.81 10*6/uL Normal 4.2-5.4 [facility] Comment on above: Order Comment: REDRA W. PREVIOUS SPECIMEN REJECTED DUE TO CLOT' . 11/27/23 1222 Елена Joshua. Performed By: #### L 100.0100 #### [facility] [address] [place], [address] RDW SD 37.7 fl Normal 35.1-43.9 [facility] Comment on above: Order Comment: REDRA W. PREVIOUS SPECIMEN REJECTED DUE TO CLOT' . 11/27/23 1222 Еленаmalcolm Lewis. Performed By: #### L 100.0100 #### [facility] [address] [place], [address] WBC (Bld) [#/Vol] 9.7 10*3/uL Normal 4.4-11.0 [facility] Comment on above: Order Comment: REDRA W. PREVIOUS SPECIMEN REJECTED DUE TO CLOT' . 11/27/23 1222 Еленаsol Lewis. Performed By: #### L 100.0100 #### [facility] [address] [place], [address] Absolute Neut Normal 2.0-7.7 [facility] Comment on above: Result Comment: This specimen has been REJECTED due to Laboratory criteria: Clotted. NATALIA has been notified of need of recollection. 11/27/23 1221 Елена Lewis Performed By: #### L 100.0100, L500.2500 #### [facility] [address] [place], [address] HCT Normal 37-47 [facility] Comment on above: Result Comment: This specimen has been REJECTED due to Laboratory criteria: Clotted. NATALIA has been notified of need of recollection. 11/27/23 1221 Елена Lewis Performed By: #### L 100.0100, L500.2500 #### [facility] [address] [place], [address] HGB Normal 12.0-15.0 [facility] Comment on above: Result Comment: This specimen has been REJECTED due to Laboratory criteria: Clotted. NATALIA has been notified of need of recollection. 11/27/23 1221 Елена Lewis Performed By: #### L 100.0100, L500.2500 #### [facility] [address] [place], [address] MCH Normal 27.0-32.0 [facility] Comment on above: Result Comment: This specimen has been REJECTED due to Laboratory criteria: Clotted. NATALIA has been notified of need of recollection. 11/27/23 1221 Елена Lewis Performed By: #### L 100.0100, L500.2500 #### [facility] [address] [place], [address] MCHC Normal 32-36 [facility] Comment on above: Result Comment: This specimen has been REJECTED due to Laboratory criteria: Clotted. NATALIA has been notified of need of recollection. 11/27/23 1221 Елена Lewis Performed By: #### L 100.0100, L500.2500 #### [facility] [address] [place], [address] MCV Normal 81-99 [facility] Comment on above: Result Comment: This specimen has been REJECTED due to Laboratory criteria: Clotted. NATALIA has been notified of need of recollection. 11/27/23 1221 Елена Lewis Performed By: #### L 100.0100, L500.2500 #### [facility] [address] [place], [address] NEUT% Normal 47-70 [facility] Comment on above: Result Comment: This specimen has been REJECTED due to Laboratory criteria: Clotted. NATALIA has been notified of need of recollection. 11/27/23 1221 Елена Lewis Performed By: #### L 100.0100, L500.2500 #### [facility] [address] [place], [address] PLT Normal 150-450 [facility] Comment on above: Result Comment: This specimen has been REJECTED due to Laboratory criteria: Clotted. NATALIA has been notified of need of recollection. 11/27/23 1221 Елена Lewis Performed By: #### L 100.0100, L500.2500 #### [facility] [address] [place], [address] RBC Normal 4.2-5.4 [facility] Comment on above: Result Comment: This specimen has been REJECTED due to Laboratory criteria: Clotted. NATALIA has been notified of need of recollection. 11/27/23 1221 Елена Lewis Performed By: #### L 100.0100, L500.2500 #### [facility] [address] [place], [address] RDW CV Normal 11.6-14.6 [facility] Comment on above: Result Comment: This specimen has been REJECTED due to Laboratory criteria: Clotted. NATALIA has been notified of need of recollection. 11/27/23 1221 Елена Lewis Performed By: #### L 100.0100, L500.2500 #### [facility] [address] [place], [address] RDW SD Normal 35.1-43.9 [facility] Comment on above: Result Comment: This specimen has been REJECTED due to Laboratory criteria: Clotted. NATALIA has been notified of need of recollection. 11/27/23 1221 Елена Lewis Performed By: #### L 100.0100, L500.2500 #### [facility] [address] [place], [place], [address] WBC Normal 4.4-11.0 [facility] Comment on above: Result Comment: This specimen has been REJECTED due to Laboratory criteria: Clotted. NATALIA has been notified of need of recollection. 11/27/23 1221 Елена Lewis Performed By: #### L 100.0100, L500.2500 #### [facility] [address] [place], [place], [address] CNOVon 11-27-2023 CNOV Office Visit ([facility] ) -------- JAYDA OSHEA ([id number]) 1985 F Date Time Provider Department 11/27/23 11:30 AM VONNIE DICKERSON [facility] During your visit today, we recorded the following information about you: Blood pressure 190/110 Vonnie Dickerson APRN.CNP 11/27/2023 11:37 AM Signed Patient triaged at [facility]. Here today with sob, left arm pain, elevated bp. Bp 190/110. I will refer to ER. Patient declines squad. Patient in no visible distress at time of triage. Allergies As of Date: 11/27/2023 Noted Allergy Reaction NAPROSYN (NAPROXEN) 07/25/2014 4 - Hives SEASONAL ALLERGIES 06/30/2009 Comments: sinus reaction Date Reviewed: 05/15/2020 Reviewed by: Corinne Nichole ([facility]) - Fully Assessed Reason for Visit: Shortness of Breath [227] Primary Visit Diagnosis:Chest pressure [R07.89] Prescriptions as of 11/27/2023 - Lactobacillus acidophilus (FLORAJEN) 460 mg (20 billion cell) cap Take 1 capsule by mouth once daily. - metoprolol succinate ER (TOPROL XL) 50 mg 24 hr tablet Take 1 tablet by mouth once daily. - dextroamphetamine-amphet amine (ADDERALL) 20 mg tablet Take 1 tablet by mouth twice daily for 30 days. - dextroamphetamine-amphet amine (ADDERALL) 5 mg tablet Take 1 tablet by mouth twice daily for 30 days. - dicyclomine (BENTYL) 10 mg capsule Take 1 capsule by mouth three times daily as needed. - LORATADINE (CLARITIN ORAL) Take by mouth. Problem List As Of Date 11/27/2023 Noted Resolved ADD (attention deficit disorder) [F98.8] 11/12/2013 Migraine, unspecified, without mention of intra*11/12/2013 Hypertension, essential [I10] 01/02/2019 Toe pain, chronic, right [M79.674, G89.29] 01/02/2019 Irritable bowel syndrome with both constipation*01/02/2019 Marijuana use [F12.90] 04/15/2019 Controlled substance agreement broken [Z91.148] 04/15/2019 Encounter Status:Closed by VONNIE DICKERSON on 11/27/23 Normal [facility] Chest 1 View (Portable)on Chest 1 View (Portable) [facility] Imaging Services [address] [place] [address] [id number] Chest 1 View (Portable) MR#: [id number] Acct: [id number] Name: JAYDA OSHEA Maritza Rep #: [id number] : 1985 F 38 From: Anuj Mancilla MD PCP: Care Physician,No Primary Status: REG ER Study: Chest 1 View (Portable) Date of Exam: 11/27/23 Exam# [id number] Ordering Dr: Lauri Puga DO [id number] STUDY: X-RAY CHEST REASON FOR EXAM: Female, 38 years old. Chest pain. TECHNIQUE: Single frontal view of the chest. COMPARISON: None. FINDINGS: The lungs are clear and expanded. There is no demonstrated pleural abnormality. Normal size heart. Normal mediastinum and jessica. Normal visualized pulmonary arteries. Normal visualized aortic arch and descending thoracic aorta. No abnormality of the visualized soft tissue structures of the upper abdomen. RAD/Chest 1 View (Portable) IMPRESSION: Normal x-ray examination of the chest. Electronically Signed: Anuj Mancilla MD at 13:12 EDT , CC: Dr. Lauri Puga, ; No Primary Care Physician Manager Utilization Management: Signed Normal [facility] Emergency Department Summary on 11-27-2023 Emergency Department Summary [facility] Medical Records Department [address] [place] [id number] Emergency Department Summary 11/27/23 MR#: [id number] Acct: [id number] Name: JAYDA OSHEA Rep #: [id number] : 1985 38 From: Lauri Puga DO PCP: Care Physician,No Primary Status:DEP ER Location: ED HPI History of Present Illness Chief Complaint: Shortness of Breath Informant: patient Narrative Narrative: 38-year-old female presenting to the emergency concerns for hypertension. Patient states that yesterday she developed a sore throat and some fatigue. Today after dropping her child off at school she decided to take a nap prior to going to work in case she was getting sick. She began to have some right arm discomfort and felt a flushed feeling that she has had before when she has had hypertension. She noticed some tightness particularly right side of her chest when she went to take a full breath. She did not feel any wheezing. No cough no rhinorrhea. Patient states that now she feels pretty good. She states that the right arm is more annoying. She is not currently treated for hypertension as she states has been very episodic and many years ago was the last time it happened to her. No headache. No neurologic deficits. PFSH PFSH Home Medications ???Medication ???Instructions ???Recorded ???Last Taken ???Type dextroamphetamine-amphet amine 15 25 mg PO BID 07/17/14 Unknown History mg tablet (Adderall) loratadine 10 mg tablet (Claritin) 10 mg PO DAILY PRN PRN Allergies 01/25/18 Unknown History clonidine HCl 0.1 mg tablet 0.1 mg PO Q6H PRN hypertensive 11/27/23 Unknown Rx emergency #10 tabs Allergy/AdvReac Type Severity Reaction Status Date / Time codeine Allergy Unknown Verified 11/27/23 11:31 naproxen Allergy Hives Verified 11/27/23 11:31 Social History Smoking Status: Never smoker ROS ROS ED Constitutional Constitutional ED: Denies chills, fever(s) or weight loss Eyes Eyes: Denies change in vision or diplopia ENT ENT ED: Reports sore throat; Denies ear pain or rhinorrhea Cardiovascular Cardiovascular: Reports chest pain; Denies orthopnea, palpitations or racing heartbeat Respiratory/Chest Respiratory/Chest: Reports dyspnea; Denies cough or orthopnea Gastrointestinal Gastrointestinal: Denies abdominal pain, diarrhea, nausea or vomiting Genitourinary Genitourinary ED: Denies dysuria, hematuria or urinary frequency Musculoskeletal Musculoskeletal: Denies arthralgias or myalgias Integumentary Denies abscess or rash Neurologic Neurologic: Denies headache(s) or weakness Psychiatric Psychiatric: Denies anxiety, depression, suicidal ideation or suicidal thoughts Endocrine Endocrinology: Denies polydipsia, polyphagia or polyuria Allergic/Immunologic Allergic/Immunologic ED: Denies mouth swelling, tongue swelling or urticaria EXAM Physical Exam Const Vital Signs: 11/27/23 11:31 11/27/23 12:27 11/27/23 13:00 Temperature 97.4 F L Temperature Source Temporal Pulse Rate 101 H Respiratory Rate 16 Respiratory Effort Normal Non-Labored Respiratory Depth Normal Respiratory Pattern Normal Blood Pressure 215/135 H Blood Pressure Mean 161 Pulse Ox 100 Oxygen Delivery Method Room Air Room Air Room Air 11/27/23 13:19 11/27/23 13:25 11/27/23 14:32 Temperature Temperature Source Pulse Rate 85 99 Respiratory Rate Respiratory Effort Respiratory Depth Respiratory Pattern Blood Pressure 185/120 H 200/128 H 192/103 H Blood Pressure Mean 141 152 132 Pulse Ox Oxygen Delivery Method 11/27/23 15:21 Temperature 98 F Temperature Source Pulse Rate 101 H Respiratory Rate 19 H Respiratory Effort Respiratory Depth Respiratory Pattern Blood Pressure 190/102 H Blood Pressure Mean 131 Pulse Ox 95 Oxygen Delivery Method Positive well nourished and well developed General Appearance ED: well developed HEENT Reports normocephalic, head/scalp atraumatic and moist mucous membranes Eyes PERRL and EOMs intact bilaterally Neck no lymphadenopathy, supple and no JVD Resp normal respiratory effort and clear to auscultation bilaterally Cardio regular rate, regular rhythm and no murmurs GI normal to inspection, nondistended, normoactive bowel sounds and non-tender Palpation: soft Back/Spine no CVA tenderness and normal ROM Extremity normal to inspection General Extremety ED: Negative for edema General Extremity: Negative for edema Neuro oriented x3 and CN's II-XII intact bilaterally Sensorium / Orientation: alert Motor Exam: strength 5/5 throughout Psych mental status grossly normal Mood Affect: Negative for depressed or tearful Skin no rashes or lesions note (more content not included)... Normal [facility] L501.4020on 11-27-2023 TROPONIN-I HS 7 pg/mL Normal 3.0-54.0 [facility] Comment on above: Result Comment: Plea se Note: New Test Units and Gender Specific Reference Ranges. For more information see Policy Stat Procedure Dawson High Sensitivity Troponin (TNIH) and attachments. Performed By: #### L 501.4020 #### [facility] [address] [place], [place], [address] L501.5425on 11-27-2023 TROPONIN-I HS 6 pg/mL Normal 3.0-54.0 [facility] Comment on above: Order Comment: CIARA Perez PREVIOUS SPECIMEN REJECTED DUE TO HEMOLYSIS. 11/27/23 1248 1 Y Result Comment: Plea se Note: New Test Units and Gender Specific Reference Ranges. For more information see Policy Stat Procedure Dawson High Sensitivity Troponin (TNIH) and attachments. Performed By: #### L 500.2500, L501.5425 #### [facility] [address] [place], [address] Vital Signs Date Time Vital Sign Value Performing Clinician Leslye levin 08-19-2024 11:28-0400 Body height 162.56 cm No Primary Care Physician [facility] 08-19-2024 11:28-0400 Body mass index (BMI) [Ratio] 29.9 kg/m2 No Primary Care Physician [facility] 08-19-2024 11:28-0400 Body temperature 98.2 [degF] No Primary Care Physician [facility] 08-19-2024 11:28-0400 Body weight 79.03 kg No Primary Care Physician [facility] 08-19-2024 11:28-0400 Diastolic blood pressure 86 mm[Hg] No Primary Care Physician [facility] 08-19-2024 11:28-0400 Heart rate 94 /min No Primary Care Physician [facility] 08-19-2024 11:28-0400 SaO2% (BldA) [Mass fraction] 97 % No Primary Care Physician [facility] 08-19-2024 11:28-0400 Systolic blood pressure 122 mm[Hg] No Primary Care Physician [facility] 11-27-2023 11:34-0400 Diastolic blood pressure 110 mm[Hg] Vonnie Dickerson APRN.NC MACHINIST Work Phone: [facility] 11-27-2023 11:34-0400 Systolic blood pressure 190 mm[Hg] Vonnie Dickerson APRN.NC MACHINIST Work Phone: [facility] Encounters Encounter Date Encounter Type Care Provider Facility Start: 08-19-2024 End: 08-19-2024 Patient encounter procedure Yefri Sotelo [facility] Work Phone: Start: 08-19-2024 End: 08-19-2024 ambulatory No Primary Care Physician [facility] Work Phone: Start: 08-19-2024 End: 08-19-2024 ambulatory No Primary Care Physician Facility:[facility] Start: 11-27-2023 End: 11-27-2023 Patient encounter procedure Vonnie Dickerson APRN.NC MACHINIST Work Phone: [facility] Comment on above: Chest pressure (Prim michael Dx) Start: 11-27-2023 End: 11-27-2023 Emergency department patient visit No Primary Care Physician Facility:[facility] Start: 11-27-2023 End: 11-27-2023 ambulatory Facility:[facility] Procedures Date Procedure Procedure Detail Performing Clinician Start: 08-19-2024 X-ray of foot, three or more views No Primary Care Physician Plan of Treatment Date Care Activity Detail Author Start: 12-03-2023 Influenza vaccination Influenza Vacc ine (#1) [facility] Start: 2023 Screening for malign ant neoplasm of breast Mammogram Screening [facility] Start: 12-02-2022 Covid-19 Vaccine ( season) Covid-19 Vaccine () [facility] Start: 07-23-2021 Screening for malign ant neoplasm of cervix Cervical Cancer Screening [facility] Start: 04-09-2020 Annual PCP Team [employer] melba Disease Visit Annual PCP Team Chronic Disease Visit [facility] Start: 10-10-2002 Hepatitis B Vaccine (1 of 3 - 19+ 3-dose series) Hepatitis B Vaccine (1 of 3 - 19+ 3-dose series) [facility] Start: 10-10-2002 Urine microalbumin profile DTa P,Tdap,Td Vaccine (1 - Tdap) [facility] Start: 10-10-2001 Anxiety Screening Anxiety Screening [facility] Start: 10-10-2001 BP Controlled (<130/80) BP Controlle d (<130/80) [facility] Start: 10-10-2001 Depression Screening Depression Scre ening [facility] Start: 10-10-2001 Hepatitis C screening Hepatitis C Sc cece [facility] Start: 10-10-2001 HIV screening HIV Screening Justina grey [facility] Payers Date Payer Category Payer Self-pay [id number] 2023 Unknown [id number] 2013 Medicaid MEDICAID [id number] 2013 Unknown LUL [id number] Unknown [id number] Unknown [id number] Unknown [id number] Social History Date Type Detail Facility Start: 02[facility]18[facility] Start: 01-02-2011 End: 01-03-2016 History of tobacco use Current smoker [facility] Start: 01-02-2011 End: 01-03-2016 History of tobacco use Cigarette Smoker [facility] Start: 02-18-2019 End: 03-11-2020 Cigarettes smoked current (pack per day) - Reported 0.5 [facility] Start: 02-18-2019 Tobacco use and exposure Smokeless tobacco non-user [facility] Start: 05-15-2020 Alcoholic beverage intake Current drinker of alcohol (finding) [facility] Start: 03-11-2020 End: 05-15-2020 Tobacco use panel [facility] National Score (1-10 0), lower number is lower risk Not on file [facility] Start: 1985 Sex assigned at Not on file [facility] Start: 11-27-2023 [facility] tobacco (finding) [facility] Start: 1985 Sex Assigned At Female [facility] Progress note 11-27-2023 Note Date & Type Note Facility 11-27-2023 Note HNO ID: [id number] Author: VONNIE DICKERSON APRN.NC MACHINIST Service: ? Author Type: Nurse Practitioner Type: Progress Notes Filed: 11/27/2023 11:37 Note Text: Patient triaged at [facility]. Here today with sob, left arm pain, elevated bp. Bp 190/110. I will refer to ER. Patient declines squad. Patient in no visible distress at time of triage. [facility] History of Present illness Narrative 11-27-2023 Vonnie Dickerson APRN.MARY - 11/27/2023 11:35 AM EDT Note Date & Type Note Facility 11-27-2023 History of Presen t illness Narrative Patient triaged at [facility]. Here today with sob, left arm pain, elevated bp. Bp 190/110. I will refer to ER. Patient declines squad. Patient in no visible distress at time of triage. documented in this encounter [facility] Evaluation note Note Date & Type Note Facility Evaluation note Diagnosis Chest pressure- Primary Other chest pain documented in this encounter [facility] Evaluation note Note Date & Type Note Facility Evaluation note No assessment information availa moi [facility] Work Phone: Reason for referral (narrative) Note Date & Type Note Facility Reason for referral (narrative) No reason for referral information available [facility] Work Phone: Summary Purpose Family History No Family History Records FoundNo Family History Records Found Advance Directives No Advanced Directives Records FoundNo Advanced Directives Records Found Chief Complaint and Reason for Visit Chief Complaint Admit Date R FOOT INJURY August 19, 2024 10:40 am pain- RIGHT FOOT August 19, 2024 10:57 am Additional Source Comments Source Comments (unrecognize d section and content) In the event this informatio n is protected by the Federal Confidentiality of Alcohol and Drug Abuse Patient Records regulations: The Federal rules restrict any use of the information to criminally investigate or prosecute any alcohol or drug abuse patient.[facility] Reason for Visit (unrecogniz ed section and content) Reason Comments Shortness of Breath INFORMATION SOURCE (unrecogn ized section and content) DATE CREATED AUTHOR 11/28/2023 [facility] DATE CREATED AUTHOR AUTHOR'S ROHINI ATION 08/29/[address] [facility] Care Teams (unrecognized sec tion and content) Team Status: Active Member Role Status Dates No Primary Care Physician Primary Care Provider Active Team Status: Inactive Member Role Status Dates No Primary Care Physician Primary Care Provider Active Start: August 19, 2024 End: August 19, 2024 No Primary Care Physician Referring Provider Active Start: August 19, 2024 End: August 19, 2024 STAN Tai Attending Provider Active Start: August 19, 2024 End: August 19, 2024 Team Status: Active Member Role Status Dates No Primary Care Physician Primary Care Provider Active Start: August 19, 2024 STAN Tai Attending Provider Active Start: August 19, 2024 STAN Tai Referring Provider Active Start: August 19, 2024 Goals (unrecognized section and content) Goals may be documented in a n alternate section FOR RECORDS PERTAINING TO PATIENTS WHO ARE OR HAVE BEEN ENROLLED IN A CHEMICAL DEPENDENCY/SUBSTANCEABUSE PROGRAM, SOME INFORMATION MAY BE OMITTED. This clinical summary was aggregated from multiple sources. Caution should be exercised in using it in the provision of clinical care. This summary normalizes information from multiple sources, and as a consequence, information in this document may materially change the coding, format and clinical context of patient data. In addition, data may be omitted in some cases. CLINICAL DECISIONS SHOULD BE BASED ON THE PRIMARY CLINICAL RECORDS. [facility] [employer] provides no warranty or guarantee of the accuracy or completeness of information in this document.
[2024-10-31] VITALS (11 sets, daily range): BP systolic 118–187; BP diastolic 84–110; PULSE 62–85; RESP 16–18; TEMP 36.8–37.3; O2SAT 95–100
--- NOTE | 2024-10-31 00:12 | ED.RN ---
Pt unable to sit upright, leans to side, did not attempt further dysphagia screen due to lack of trunk control
--- OUTSIDE RECORDS SUMMARY | 2024-10-31 00:17 | XMS RPT_ITS | CCD ---
Author Organization [facility] Care Team Providers Care Aircraft Design Engineer Name Role Phone Unavailable Primary Care Provider Unavailabl e Care Physician, No Primary Primary Care Provider Unavailable Care Physician, No Primary Referring Provider Un available Yefri Mancera Attending Provider Yefri Mancera Referring Provider Care Physician, No Primary Primary Care Unava ilable Yefri Sotelo Attending Unavailable Care Physician, No Primary Referring Unava ilable Care Physician, No Primary Primary Care Unava ilable Yefri Sotelo Referring Unavailable Yefri Sotelo Attending Unavailable Care Physician, No Primary Primary Care Unava ilable Lauri Puga Attending Unavailable Allergies Allergy Classification Reported Allergen(s) Allergy Type Date of Onset Reaction(s) Facility (3 sources) Naproxen; Translations: [NAPROXEN] Drug Allergy 5 [facility] Work Phone: (2 sources) Seasonal allergy; Translations: [SEASONAL ALLERGIES] Propensity to adverse reactions 0 [facility] [place] (1 source) Codeine Drug Allergy 5 [facility] (1 source) Codeine Drug Allergy 5 [facility] (1 source) Naproxen Drug Allergy 5 [facility] Medications Current Medications Medication Drug Class(es) [...] Active Start: 03-25-2019 take 1 tablet by shya th twice daily dextroamphetamine-amphetamine (ADDERALL) 20 mg [...] 3 Viewson 5 Foot min 3 Views [facility] Imaging Services [address] [place], [place] [address] Foot min 3 Views MR#: [id number] Acct: [id number] Name: JAYDA OSHEA Maritza Rep #: [id number] : 1985 F 38 From: Shalom lin MD PCP: Care Physician,No Primary Status: REG CLI Study: Foot min 3 Views Date of Exam: 08/19/24 Exam# [id number] Ordering Dr: Yefri Sotelo PROCEDURE: FOOT MIN [...] degree of soft tissue swelling. Reading Location: [place] [address] CC: No Primary Care Physician; STAN Sanches Horticultural Farmworker: Signed Normal [facility] Urgent Care Visit Reporton 0 08-19-2024 Urgent Care Visit Report [facility] [address], [address] [place], [place] [address] OFFICE VISIT Date of Service: 08/19/24 MR#: [id number] Acct: [id number] Name: JAYDA OSHEA Maritza Rep #: [id number] : 1985 Provider: STAN Sanches Age/Sex: 38/F Location: [facility] [place] Status: Signed Intake Vital Signs 11/27/23 11:31 [...] as she describes. She has taken no wnyg-hxw-lkrifhc products to assist. Pain is aggravated/and with [...] the above. This note was generated with Flipter dictation software. It may contain incorrect words, spelling, and punctuation that were not noted in checking the note before signing. Orders: Orders Foot min 3 Views Today M79.671 - Pain in right foot 08/19/24 1149 Date Yefri Paniagua Signature: Date (if applicable) CC: Normal [facility] 12 Lead EKGon 11-27-2023 12 Lead EKG [facility] Cardiovascular Services [address] [place] [address] 12 Lead EKG 11/27/23 1143 MR#: [id number] Acct: [id number] Name: JAYDA OSHEA Rep #: [id number] : 1985 38 From: Chevy Gann MD [...] Normal ECG Confirmed by Chevy Gann ([id number]), copy editor KAVON BARONE ([id number]) on 11/29/2023 8:16:27 AM Referred By: BRANDY Confirmed By:Chevy Gann 11/29/23 0816 Date Cehvy Gann MD CC: Dr. Lauri Puga, ; No Primary Care Physician Signed Normal [facility] Basic Metabolic Profile (BMP )on 11-27-2023 BUN/CRE 15.9 RATIO Normal 10-20 [facility] Comment on above: Order Comment: REDRA W. PREVIOUS SPECIMEN REJECTED DUE TO HEMOLYSIS. 11/27/23 1248 1 Y Performed By: #### L 500.2500, L553.2408 #### [facility] [address] [facility] [facility], [place], [id number] CA,Total 9.1 mg/dL Normal 8.5-10.1 [facility] Comment on above: Order Comment: REDRA W. PREVIOUS SPECIMEN REJECTED DUE TO HEMOLYSIS. 11/27/23 1248 1 Y Performed By: #### L 500.2500, L501.5401 #### [facility] [address] [place], [place], [address] Chloride [Moles/Vol] 107 mmol/L Normal 98-107 [facility] Comment on above: Order Comment: REDRA W. PREVIOUS SPECIMEN REJECTED DUE TO HEMOLYSIS. 11/27/231247 1 Y Performed By: #### L 500.2500, L501.5425 #### [facility] [address] [place], [address] CO2 [Moles/Vol] 28.0 mmol/L Normal 21.0-32.0 [facility] Comment on above: Order Comment: REDRA W. PREVIOUS SPECIMEN REJECTED DUE TO HEMOLYSIS. 11/27/231247 1 Y Performed By: #### L 500.2500, L501.5425 #### [facility] [address] [place], [address] Creatinine [Mass/Vol] 0.69 mg/dL Normal 0.55-1.02 [facility] Comment on above: Order Comment: REDRA W. PREVIOUS SPECIMEN REJECTED DUE TO HEMOLYSIS. 11/27/231247 1 Y Result Comment: The validity of the calculated GFR GFRAA in patients over 70 years has not been determined. Clinical correlation is essential. Performed By: #### L 500.2500, L501.5425 #### [facility] [address] [place], [address] ECRCL 111.41 ml/min Normal [facility] Comment on above: Order Comment: REDRA W. PREVIOUS SPECIMEN REJECTED DUE TO HEMOLYSIS. 11/27/231247 1 Y Performed By: #### L 500.2500, L501.5425 #### [facility] [address] [place], [address] EST GFR - AA 121 mL/min Normal >60 [facility] Comment on above: Order Comment: REDRA W. PREVIOUS SPECIMEN REJECTED DUE TO HEMOLYSIS. 11/27/231247 1 Y Result Comment: Afri can [place] GFR Calc Performed By: #### L 500.2500, L501.5425 #### [facility] [address] [place], [address] GAP 3 Low 5-15 [facility] Comment on above: Order Comment: REDRA W. PREVIOUS SPECIMEN REJECTED DUE TO HEMOLYSIS. 11/27/231247 1 Y Performed By: #### L 500.2500, L501.5425 #### [facility] [address] [place], [address] GFR/1.73 sq M.predicted among non-blacks MDRD (S/P/Bld) [Vol rate/Area] 100 mL/min/{1.73_m2} Normal >60 [facility] Comment on above: Order Comment: REDRA W. PREVIOUS SPECIMEN REJECTED DUE TO HEMOLYSIS. 11/27/231247 1 Y Result Comment: Non- GFR Calc Performed By: #### L 500.2500, L501.5425 #### [facility] [address] [place], [address] Glucose [Mass/Vol] 107 mg/dL High 74-106 [facility] Comment on above: Order Comment: REDRA W. PREVIOUS SPECIMEN REJECTED DUE TO HEMOLYSIS. 11/27/231247 1 Y Result Comment: Fast ing Glucose result from 100 to 125 mg/dL suggests IMPAIRED HOMEOSTASIS per A.D.A. criteria. Performed By: #### L 500.2500, L501.5425 #### [facility] [address] [place], [address] Potassium [Moles/Vol] 4.1 mmol/L Normal 3.5-5.1 [facility] Comment on above: Order Comment: REDRA W. PREVIOUS SPECIMEN REJECTED DUE TO HEMOLYSIS. 11/27/231247 1 Y Performed By: #### L 500.2500, L501.5425 #### [facility] [address] [place], [address] Sodium [Moles/Vol] 138 mmol/L Normal 136-145 [facility] Comment on above: Order Comment: REDRA W. PREVIOUS SPECIMEN REJECTED DUE TO HEMOLYSIS. 11/27/231247 1 Y Performed By: #### L 500.2500, L501.5425 #### [facility] [address] [place], [address] Urea nitrogen [Mass/Vol] 11 mg/dL Normal 7-18 [facility] Comment on above: Order Comment: CIARA Miller. PREVIOUS SPECIMEN REJECTED DUE TO HEMOLYSIS. 11/27/23 1248 1 Y Performed By: #### L 500.2500, L501.5425 #### [facility] [address] [place], [address] BUN Normal 7-18 [facility] Comment on above: Order Comment: 1Y Result Comment: This specimen has been REJECTED due to Laboratory criteria: [golden CHRISTENSEN]. NATALIA has been notified of need of recollection. 11/27/236 Francisca Clapper Performed By: #### L 100.0100, L500.2500 ####[facility] [address] [place], [address] BUN/CRE Normal 10-20 [facility] Comment on above: Order Comment: 1Y Result Comment: This specimen has been REJECTED due to Laboratory criteria: [golden CHRISTENSEN]. NATALIA has been notified of need of recollection. 11/27/236 Francisca Clapper Performed By: #### L 100.0100, L500.2500 ####[facility] [address] [place], [address] CA,Total Normal 8.5-10.1 [facility] Comment on above: Order Comment: 1Y Result Comment: This specimen has been REJECTED due to Laboratory criteria: [golden CHRISTENSEN]. NATALIA has been notified of need of recollection. 11/27/23 1246 Francisca Clapper Performed By: #### L 100.0100, L500.2500 ####[facility] [address] [place], [address] CL Normal 98-107 [facility] Comment on above: Order Comment: 1Y Result Comment: This specimen has been REJECTED due to Laboratory criteria: [golden CHRISTENSEN]. NATALIA has been notified of need of recollection. 11/27/23 1246 Francisca Clapper Performed By: #### L 100.0100, L500.2500 ####[facility] [address] [place], [address] CO2 Normal 21.0-32.0 [facility] Comment on above: Order Comment: 1Y Result Comment: This specimen has been REJECTED due to Laboratory criteria: [golden CHRISTENSEN]. NATALIA has been notified of need of recollection. 11/27/23 1246 Francisca Clapper Performed By: #### L 100.0100, L500.2500 ####[facility] [address] [place], [address] CREAT,SERUM Normal 0.55-1.02 [facility] Comment on above: Order Comment: 1Y Result Comment: This specimen has been REJECTED due to Laboratory criteria: [golden CHRISTENSEN]. NATALIA has been notified of need of recollection. 11/27/23 1246 Francisca Clapper Performed By: #### L 100.0100, L500.2500 ####[facility] [address] [place], [address] EST GFR Normal >60 [facility] Comment on above: Order Comment: 1Y Result Comment: This specimen has been REJECTED due to Laboratory criteria: [golden CHRISTENSEN]. NATALIA has been notified of need of recollection. 11/27/23 1246 Francisca Clapper Performed By: #### L 100.0100, L500.2500 ####[facility] [address] [place], [address] EST GFR - AA Normal >60 [facility] Comment on above: Order Comment: 1Y Result Comment: This specimen has been REJECTED due to Laboratory criteria: [golden CHRISTENSEN]. NATALIA has been notified of need of recollection. 11/27/23 1246 Francisca Clapper Performed By: #### L 100.0100, L500.2500 ####[facility] [address] [place], [address] GAP Normal 5-15 [facility] Comment on above: Order Comment: 1Y Result Comment: This specimen has been REJECTED due to Laboratory criteria: [golden CHRISTENSEN]. NATALIA has been notified of need of recollection. 11/27/23 1246 Francisca Clapper Performed By: #### L 100.0100, L500.2500 ####[facility] [address] [place], [address] GLU Normal 74-106 [facility] Comment on above: Order Comment: 1Y Result Comment: This specimen has been REJECTED due to Laboratory criteria: [golden CHRISTENSEN]. NATALIA has been notified of need of recollection. 11/27/23 1246 Francisca Clapper Performed By: #### L 100.0100, L500.2500 ####[facility] [address] [place], [address] Potassium Normal 3.5-5.1 [facility] Comment on above: Order Comment: 1Y Result Comment: This specimen has been REJECTED due to Laboratory criteria: [golden CHRISTENSEN]. NATALIA has been notified of need of recollection. 11/27/23 1246 Francisca Clapper Performed By: #### L 100.0100, L500.2500 ####[facility] [address] [place], [address] Basic Metabolic Profile (BMP) Normal 136-145 [facility] Comment on above: Order Comment: 1Y Result Comment: This specimen has been REJECTED due to Laboratory criteria: [golden CHRISTENSEN]. NATALIA has been notified of need of recollection. 11/27/23 1246 Francisca Clapper Performed By: #### L 100.0100, L500.2500 ####[facility] [address] [place], [address] CBC W/Diff, Automatedon 08-2 6-2024 Absolute Lymph 2.14 X10 3/uL Normal 0.83-4.51 [facility] Comment on above: Order Comment: REDRA W. PREVIOUS SPECIMEN REJECTED DUE TO CLOT' . 11/27/23 1222 Елена Lewis. Performed By: #### L 100.0100 #### [facility] [address] [place], [address] Absolute Neut 6.8 X10 3/uL Normal 2.0-7.7 [facility] Comment on above: Order Comment: REDRA W. PREVIOUS SPECIMEN REJECTED DUE TO CLOT' . 11/27/23 1222 Еленаmalcolm Lewis. Performed By: #### L 100.0100 #### [facility] [address] [place], [address] Basophils/100 WBC (Bld) 0.4 % Normal 0-1 [facility] Comment on above: Order Comment: REDRA W. PREVIOUS SPECIMEN REJECTED DUE TO CLOT' . 11/27/23 1222 Елена Lewis. Performed By: #### L 100.0100 #### [facility] [address] [place], [address] Eosinophils/100 WBC (Bld) 0.8 % Normal 0-5 [facility] Comment on above: Order Comment: REDRA W. PREVIOUS SPECIMEN REJECTED DUE TO CLOT' . 11/27/23 1222 Елена Lewis. Performed By: #### L 100.0100 #### [facility] [address] [place], [address] Erythrocyte distribution width (RBC) [Ratio] 11.2 % Low 11.6-14.6 [facility] Comment on above: Order Comment: REDRA W. PREVIOUS SPECIMEN REJECTED DUE TO CLOT' . 11/27/23 1222 Еленаmalcolm Lewis. Performed By: #### L 100.0100 #### [facility] [address] [place], [address] Hematocrit (Bld) [Volume fraction] 43.8 % Normal 37-47 [facility] Comment on above: Order Comment: REDRA W. PREVIOUS SPECIMEN REJECTED DUE TO CLOT' . 11/27/23 1222 Елена Lewis. Performed By: #### L 100.0100 #### [facility] [address] [place], [address] Hemoglobin (Bld) [Mass/Vol] 14.5 g/dL Normal 12.0-15.0 [facility] Comment on above: Order Comment: REDRA W. PREVIOUS SPECIMEN REJECTED DUE TO CLOT' . 11/27/23 1222 Елена Lewis. Performed By: #### L 100.0100 #### [facility] [address] [place], [address] IG% 0.600 Normal 0.0-0.9 [facility] Comment on above: Order Comment: REDRA W. PREVIOUS SPECIMEN REJECTED DUE TO CLOT' . 11/27/23 1222 Елена Lewis. Result Comment: IG% - Immature Granulocytes (promyelocytes, myelocytes and metamyelocytes) > 1% indicates that a LEFT SHIFT is Present. Performed By: #### L 100.0100 #### [facility] [address] [place], [address] Lymphocytes/100 WBC (Bld) 22.0 % Normal 19-41 [facility] Comment on above: Order Comment: REDRA W. PREVIOUS SPECIMEN REJECTED DUE TO CLOT' . 11/27/23 1222 Елена Lewis. Performed By: #### L 100.0100 #### [facility] [address] [place], [address] MCH (RBC) [Entitic mass] 30.1 pg Normal 27.0-32.0 [facility] Comment on above: Order Comment: REDRA W. PREVIOUS SPECIMEN REJECTED DUE TO CLOT' . 11/27/23 122Karissa Lewis. Performed By: #### L 100.0100 #### [facility] [address] [place], [address] MCHC (RBC) [Mass/Vol] 33.1 g/dL Normal 32-36 [facility] Comment on above: Order Comment: REDRA W. PREVIOUS SPECIMEN REJECTED DUE TO CLOT' . 11/27/23 1222 Елена Lewis. Performed By: #### L 100.0100 #### [facility] [address] [place], [address] MCV (RBC) [Entitic vol] 91.1 fL Normal 81-99 [facility] Comment on above: Order Comment: REDRA W. PREVIOUS SPECIMEN REJECTED DUE TO CLOT' . 11/27/23 1222 Елена Lewis. Performed By: #### L 100.0100 #### [facility] [address] [place], [address] Monocytes/100 WBC (Bld) 6.7 % Normal 0-10 [facility] Comment on above: Order Comment: REDRA W. PREVIOUS SPECIMEN REJECTED DUE TO CLOT' . 11/27/23 1222 Еленаmalcolm Lewis. Performed By: #### L 100.0100 #### [facility] [address] [place], [address] Neutrophils/100 WBC (Bld) 69.5 % Normal 47-70 [facility] Comment on above: Order Comment: REDRA W. PREVIOUS SPECIMEN REJECTED DUE TO CLOT' . 11/27/23 1222 Еленаmalcolm Lewis. Performed By: #### L 100.0100 #### [facility] [address] [place], [address] Nucleated RBC (Bld) [#/Vol] 0 10*3/uL Normal 0-5 [facility] Comment on above: Order Comment: REDRA W. PREVIOUS SPECIMEN REJECTED DUE TO CLOT' . 11/27/23 1222 Елена Lewis. Performed By: #### L 100.0100 #### [facility] [address] [place], [address] Platelet mean volume (Bld) [Entitic vol] 9.6 fL Normal 6.2-12.0 [facility] Comment on above: Order Comment: REDRA W. PREVIOUS SPECIMEN REJECTED DUE TO CLOT' . 11/27/23 1222 Елена Lewis. Performed By: #### L 100.0100 #### [facility] [address] [place], [address] Platelets (Bld) [#/Vol] 260 10*3/uL Normal 150-450 [facility] Comment on above: Order Comment: REDRA W. PREVIOUS SPECIMEN REJECTED DUE TO CLOT' . 11/27/23 1222 Елена Lewis. Performed By: #### L 100.0100 #### [facility] [address] [place], [address] RBC (Bld) [#/Vol] 4.81 10*6/uL Normal 4.2-5.4 [facility] Comment on above: Order Comment: REDRA W. PREVIOUS SPECIMEN REJECTED DUE TO CLOT' . 11/27/23 1222 Елена Joshua. Performed By: #### L 100.0100 #### [facility] [address] [place], [address] RDW SD 37.7 fl Normal 35.1-43.9 [facility] Comment on above: Order Comment: REDRA W. PREVIOUS SPECIMEN REJECTED DUE TO CLOT' . 11/27/23 1222 Еленаmalcolm Lewis. Performed By: #### L 100.0100 #### [facility] [address] [place], [address] WBC (Bld) [#/Vol] 9.7 10*3/uL Normal 4.4-11.0 [facility] Comment on above: Order Comment: REDRA W. PREVIOUS SPECIMEN REJECTED DUE TO CLOT' . 11/27/23 1222 Еленаsol Lewis. Performed By: #### L 100.0100 #### [facility] [address] [place], [address] Absolute Neut Normal 2.0-7.7 [facility] Comment on above: Result Comment: This specimen has been REJECTED due to Laboratory criteria: Clotted. NATALIA has been notified of need of recollection. 11/27/23 1221 Елена Lewis Performed By: #### L 100.0100, L500.2500 #### [facility] [address] [place], [address] HCT Normal 37-47 [facility] Comment on above: Result Comment: This specimen has been REJECTED due to Laboratory criteria: Clotted. NATALIA has been notified of need of recollection. 11/27/23 1221 Елена Lewis Performed By: #### L 100.0100, L500.2500 #### [facility] [address] [place], [address] HGB Normal 12.0-15.0 [facility] Comment on above: Result Comment: This specimen has been REJECTED due to Laboratory criteria: Clotted. NATALIA has been notified of need of recollection. 11/27/23 1221 Елена Lewis Performed By: #### L 100.0100, L500.2500 #### [facility] [address] [place], [address] MCH Normal 27.0-32.0 [facility] Comment on above: Result Comment: This specimen has been REJECTED due to Laboratory criteria: Clotted. NATALIA has been notified of need of recollection. 11/27/23 1221 Елена Lewis Performed By: #### L 100.0100, L500.2500 #### [facility] [address] [place], [address] MCHC Normal 32-36 [facility] Comment on above: Result Comment: This specimen has been REJECTED due to Laboratory criteria: Clotted. NATALIA has been notified of need of recollection. 11/27/23 1221 Елена Lewis Performed By: #### L 100.0100, L500.2500 #### [facility] [address] [place], [address] MCV Normal 81-99 [facility] Comment on above: Result Comment: This specimen has been REJECTED due to Laboratory criteria: Clotted. NATALIA has been notified of need of recollection. 11/27/23 1221 Елена Lewis Performed By: #### L 100.0100, L500.2500 #### [facility] [address] [place], [address] NEUT% Normal 47-70 [facility] Comment on above: Result Comment: This specimen has been REJECTED due to Laboratory criteria: Clotted. NATALIA has been notified of need of recollection. 11/27/23 1221 Елена Lewis Performed By: #### L 100.0100, L500.2500 #### [facility] [address] [place], [address] PLT Normal 150-450 [facility] Comment on above: Result Comment: This specimen has been REJECTED due to Laboratory criteria: Clotted. NATALIA has been notified of need of recollection. 11/27/23 1221 Елена Lewis Performed By: #### L 100.0100, L500.2500 #### [facility] [address] [place], [address] RBC Normal 4.2-5.4 [facility] Comment on above: Result Comment: This specimen has been REJECTED due to Laboratory criteria: Clotted. NATALIA has been notified of need of recollection. 11/27/23 1221 Елена Lewis Performed By: #### L 100.0100, L500.2500 #### [facility] [address] [place], [address] RDW CV Normal 11.6-14.6 [facility] Comment on above: Result Comment: This specimen has been REJECTED due to Laboratory criteria: Clotted. NATALIA has been notified of need of recollection. 11/27/23 1221 Елена Lewis Performed By: #### L 100.0100, L500.2500 #### [facility] [address] [place], [address] RDW SD Normal 35.1-43.9 [facility] Comment on above: Result Comment: This specimen has been REJECTED due to Laboratory criteria: Clotted. NATALIA has been notified of need of recollection. 11/27/23 1221 Елена Lewis Performed By: #### L 100.0100, L500.2500 #### [facility] [address] [place], [place], [address] WBC Normal 4.4-11.0 [facility] Comment on above: Result Comment: This specimen has been REJECTED due to Laboratory criteria: Clotted. NATALIA has been notified of need of recollection. 11/27/23 1221 Елена Lewis Performed By: #### L 100.0100, L500.2500 #### [facility] [address] [place], [place], [address] CNOVon 11-27-2023 CNOV Office Visit ([facility] ) -------- JAYDA OSHEA ([id number]) 1985 F Date Time Provider Department 11/27/23 11:30 AM VONNIE DICKERSON [facility] During your visit today, we recorded the following information about you: Blood pressure 190/110 Vonnie Dickerson APRN.CNP 11/27/2023 11:37 AM Signed Patient triaged at [facility]. Here today with sob, left arm pain, elevated bp. Bp 190/110. I will refer to ER. Patient declines squad. Patient in no visible distress at time of triage. Allergies As of Date: 11/27/2023 Noted Allergy Reaction NAPROSYN (NAPROXEN) 07/25/2014 4 - Hives SEASONAL ALLERGIES 06/30/2009 Comments: sinus reaction Date Reviewed: 05/15/2020 Reviewed by: Corinne Nichole ([facility]) - Fully Assessed Reason for Visit: Shortness [...] Status:Closed by VONNIE DICKERSON on 11/27/23 Normal [facility] Chest 1 View (Portable)on Chest 1 View (Portable) [facility] Imaging Services [address] [place] [address] [phone] Chest 1 View (Portable) MR#: [id number] Acct: [id number] Name: JAYDA OSHEA Maritza Rep #: [id number] : 1985 F 38 From: Anuj Mancilla MD PCP: Care Physician,No Primary Status: REG ER Study: Chest 1 View (Portable) Date of Exam: 11/27/23 Exam# [id number] Ordering Dr: Lauri Puga DO [id number] STUDY: X-RAY CHEST REASON FOR EXAM: Female, [...] Lauri Puga, ; No Primary Care 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 Normal [facility] L501.4020on 11-27-2023 TROPONIN-I HS 7 pg/mL Normal 3.0-54.0 [facility] Comment on above: Result Comment: Plea se Note: New Test Units and Gender Specific Reference Ranges. For more information see Policy Stat Procedure [place] High Sensitivity Troponin (TNIH) and attachments. Performed By: #### L 501.4020 #### [facility] Laboratory [facility] [address]. [place], [place], [address] L501.5425on 11-27-2023 TROPONIN-I HS 6 pg/mL Normal 3.0-54.0 [facility] Comment on above: Order Comment: CIARA Perez PREVIOUS SPECIMEN REJECTED DUE TO HEMOLYSIS. 11/27/23 1248 1 Y Result Comment: Plea se Note: New Test Units and Gender Specific Reference Ranges. For more information see Policy Stat Procedure [place] High Sensitivity Troponin (TNIH) and attachments. Performed By: #### L 500.2500, L501.5425 #### [facility] Laboratory [address] [place], [address] Vital Signs Date Time Vital Sign Value Performing Clinician Leslye levin 08-19-2024 11:28-0400 Body height 162.56 cm No Primary Care Physician [facility] 08-19-2024 11:28-0400 Body mass index (BMI) [Ratio] 29.9 kg/m2 No Primary Care Physician [facility] 08-19-2024 11:28-0400 Body temperature 98.2 [degF] No Primary Care Physician [facility] 08-19-2024 11:28-0400 Body weight 79.03 kg No Primary Care Physician [facility] 08-19-2024 11:28-0400 Diastolic blood pressure 86 mm[Hg] No Primary Care Physician [facility] 08-19-2024 11:28-0400 Heart rate 94 /min No Primary Care Physician [facility] 08-19-2024 11:28-0400 SaO2% (BldA) [Mass fraction] 97 % No Primary Care Physician [facility] 08-19-2024 11:28-0400 Systolic blood pressure 122 mm[Hg] No Primary Care Physician [facility] 11-27-2023 11:34-0400 Diastolic blood pressure 110 mm[Hg] Vonnie Dickerson APRN.CREDIT ADMINISTRATION MANAGER Work Phone: [facility] [place] 11-27-2023 11:34-0400 Systolic blood pressure 190 mm[Hg] Vonnie Dickerson APRN.CREDIT ADMINISTRATION MANAGER Work Phone: [facility] [place] Encounters Encounter Date Encounter Type Care Provider Facility Start: 08-19-2024 End: 08-19-2024 Patient encounter procedure Yefri Sotelo [facility] Work Phone: Start: 08-19-2024 End: 08-19-2024 ambulatory No Primary Care Physician [facility] Work Phone: Start: 08-19-2024 End: 08-19-2024 ambulatory No Primary Care Physician Facility:[facility] Start: 11-27-2023 End: 11-27-2023 Patient encounter procedure Vonnie Dickerson APRN.CREDIT ADMINISTRATION MANAGER Work Phone: [facility] Comment on above: Chest pressure (Prim michael Dx) Start: 11-27-2023 End: 11-27-2023 Emergency department patient visit No Primary Care Physician Facility:[facility] Start: 11-27-2023 End: 11-27-2023 ambulatory Facility:[facility] Procedures Date Procedure Procedure Detail Performing Clinician [...] - [place] Start: 04-09-2020 Annual PCP Team Net Making Supervisor melba Disease Visit Annual PCP Team Chronic [...] 10-10-2001 HIV screening HIV Screening Justina grey [facility] Payers Date Payer Category Payer Self-pay [id number] 2023 Unknown [id number] 2013 Medicaid MEDICAID [id number] 2013 Unknown LUL [id number] Unknown [id number] Unknown [id number] Unknown [id number] Social History Date Type Detail Facility Start: [facility]-18-[facility] [place] [...] 1985 Sex assigned at Not on file [facility] Start: 11-27-2023 [facility] (finding) [facility] Start: 1985 Sex Assigned At Female [facility] Progress note 11-27-2023 Note Date & Type Note Facility 11-27-2023 Note HNO ID: [id number] Author: VONNIE DICKERSON APRN.CREDIT ADMINISTRATION MANAGER Service: ? Author Type: Nurse Practitioner Type: Progress Notes Filed: 11/27/2023 11:37 Note Text: Patient triaged at [facility]. Here today with sob, left arm pain, elevated bp. Bp 190/110. I will refer to ER. Patient declines squad. Patient in no visible distress at time of triage. [facility] History of Present illness Narrative 11-27-2023 Vonnie Dickerson APRN.MARY - 11/27/2023 11:35 AM EDT Note Date & Type Note Facility 11-27-2023 History of Presen t illness Narrative Patient triaged at [facility]. Here today with sob, left arm pain, [...] Evaluation note No assessment information availa moi [facility] Work Phone: Reason for referral (narrative) Note Date & Type Note Facility Reason for referral (narrative) No reason for referral information available [facility] Work Phone: Summary Purpose Family History No [...] section and content) DATE CREATED AUTHOR 11/28/2023 [facility] DATE CREATED AUTHOR AUTHOR'S ROHINI ATION 08/29/2024 [facility] Care Teams (unrecognized sec tion and content) [...] BE BASED ON THE PRIMARY CLINICAL RECORDS. [employer] provides no warranty or guarantee of the accuracy or completeness of information in this document.
[2024-10-31 00:48] LABS: FOLATES,SERUM (FOLIC ACID) 7.69 ng/mL (4.60-34.80)
[2024-10-31] MEDS: 0.9% Normal Saline (1000mL) 1,000 ML 70 ML IV (01:26)
--- NOTE | 2024-10-31 06:00 | MRI_ITS ---
EXAM: BRAIN WITHOUT CONTRAST CLINICAL HISTORY: ISCHEMIC CVA SUSPECTED ON CT. COMPARISON: None. TECHNIQUE: Multiplanar, multisequence MR images of the brain were obtained without gadolinium contrast material. FINDINGS: There is a large area of restricted diffusion in the right frontal and superior parietal precentral cortex and superior periventricular region, measuring 9.0 by 3.0 by 4.6 cm, with associated increased T2 signal, and decreased T1 signal components, consistent with a subacute infarct. There is a 0.6 cm focus of restricted diffusion in the left superior precentral cortex, axial image 25/26, which appears acute. There is a 0.8 cm old lacunar infarct in the deep white matter on the left. No cerebellar tonsillar ectopia. No sellar/suprasellar signal abnormalities. The ocular globes and intraorbital soft tissues are symmetrically unremarkable. Paranasal sinuses are essentially clear. MRI/Brain without Contrast IMPRESSION: There is a large area of restricted diffusion in the right frontal and superior parietal precentral cortex and superior periventricular region, measuring 9.0 by 3.0 by 4.6 cm, with associated increas ed T2 signal, and decreased T1 signal components, consistent with a subacute infarct, with acute components. There is a 0.6 cm f ocus of restricted diffusion in the left superior precentral cortex, axial image 25/26, which appears acute. There is a 0.8 cm o ld lacunar infarct in the deep white matter on the left. Critical results were discussed with Velia Parada by Thai at the time o f dictation. Reading Location: [facility]
[2024-10-31 08:33] LABS: Vitamin B12 484 pg/mL (180-914)
[2024-10-31 08:43] LABS: Cholesterol 209 mg/dL (<=200); Low Density Lipoprotein Calc. 108 mg/dL; Triglycerides 201 mg/dL; Very Low Density Lipoprotein 40 mg/dL (5-40); cholesterol:hdl ratio screen 3.43
--- NOTE | 2024-10-31 09:15 | NURSING ---
Patient off unit for MRI
--- NOTE | 2024-10-31 09:34 | NURSING ---
Patient returned to unit from MRI
--- NOTE | 2024-10-31 09:38 | PN.HOSP_ITS ---
Subjective Subjective Still having a migraine, and having a significant NIH of 13 Objective Data Objective Data Vital Signs: Vital Signs Temp Pulse Resp BP Pulse Ox O2 Del Method 98.5 F 62 16 118/84 H 99 Room Air 10/31/24 06:00 10/31/24 08:17 10/31/24 06:00 10/31/24 06:00 10/31/24 06:00 10/31/24 08:13 Oxygen Delivery Method Room Air Weight: 175 lb 0.752 oz Body Mass Index (BMI) 30.0 Intake & Output: Intake and Output for Last 24 Hours 10/30/24 10/31/24 11/01/24 03:59 03:59 03:59 Intake Total 1000 / 1000 679.67 / 679.67 Output Total 1400 / 1400 Balance 1000 / 1000 -720.33 / -720.33 Lab / Micro Data 10/30/24 20:40 10/30/24 20:40 Labs: Laboratory Results - last 24 hr 10/30/24 20:40: WBC 10.5, RBC 6.08 H, Hgb 18.5 H*, Hct 54.8 H, MCV 90.1, MCH 30.4, MCHC 33.8, RDW Std Deviation 39.9, RDW Coeff of Maria Teresa 12.1, Plt Count 311, MPV 10.0, Immature Gran % (Auto) 0.600, Neut % (Auto) 79.3 H, Lymph % (Auto) 15.0 L, [place] % (Auto) 4.2, Eos % (Auto) 0.4, Baso % (Auto) 0.5, Absolute Neuts (auto) 8.3 H, Absolute Lymphs (auto) 1.57, Nucleated RBC % 0, PT 11.8, INR 0.9, APTT 25.8, Sodium 141, Potassium 3.4, Chloride 100, Carbon Dioxide 24.6, Anion Gap 16 H, BUN 13, Creatinine 0.80, Estim Creat Clear Calc 93.24, Est GFR (MDRD) Non-Af 95, BUN/Creatinine Ratio 16.5, Glucose 92, Calcium 10.5, Troponin T High Sens < 6 10/30/24 22:45: Hemoglobin A1c 5.4, Troponin T Hi Sens 2 Hr < 6, TSH 3.230 10/30/24 23:50: Serum Folate 7.69 10/31/24 06:38: Triglycerides 201 H, Cholesterol 209 H, LDL Cholesterol, Calc 108, VLDL Cholesterol 40, HDL Cholesterol 61, Cholesterol/HDL Ratio 3.43, Vitamin B12 484 Radiography Diagnostic Testing: Radiology Impression Brain CT 10/30/24 20:46 IMPRESSION: Left frontal lobe periventricular white matter focal hypodensity measuring approximally 7 x 7 mm, which may reflect a lacunar infarction however acute infarction is not entirely excluded. Dr. Silva was notified by Jeanette De Jesus at 9:01 pm EST on 10/30/24. Reading Location: [facility] Head/Neck CTA 10/30/24 20:52 IMPRESSION: No acute large vessel occlusion. No high grade stenosis. Reading Location: [facility] Chest X-Ray 10/30/24 21:41 IMPRESSION: No acute cardiopulmonary disease. Reading Location: [facility] Physical Exam Narrative General: Alert, Oriented x3, Cooperative, No apparent distress HEENT: Atraumatic, PERRLA, EOMI, Normocephalic Oral: Moist Mucosa Neck: Supple, No JVD Lungs: Diminished, Normal air movement, No rhonchi, No wheeze, No rales Cardiovascular: Regular rate, Regular Rhythm, Normal S1, Normal S2, No murmurs Abdomen: Soft, Non Tender, Non-Distended, No Hepato-splenomegaly Extremities: No edema, Capillary Refill Less than 3 Seconds Skin: No rashes, No breakdown Musculoskeletal: No Tenderness to Palpation of Joints or Extremities Neurological: Left-sided paralysis in her arm and leg with partial gaze palsy and facial paralysis Psych/Mental Status: Flat Assessment & Plan Assessment/Plan (1) Ischemic cerebrovascular accident (CVA): (2) Acute left-sided weakness: (3) Migraine headache: QUALIFIERS: Migraine type: unspecified Status migrainosus presence: without status migrainosus Intractability: not intractable Qualified Code(s): G43.909 - Migraine, unspecified, not intractable, without status migrainosus PLAN: Plan 1. CVA with left-sided deficits complicated by migraine/tobacco abuse ? She has been having a migraine during this entire episode that was not resolved with rizatriptan ? Continue with MRI and echocardiogram ? Appreciate neurology's assistance ? Continue with stroke protocol ? Continue with NIH as ? Continue with permissive hypertension ? Discussed tobacco cessation 2. Concern for polycythemia ? Check to being evaluated ? She may also just be dehydrated in the setting of tobacco use DVT: SCDs Charges/Coding Visit Charges Inpatient E&M: 77128 Subs Hosp L2 NIHSS NIHSS Nursing Documentation NIHSS Nursing Documentation: NIHSS: Ischemic Stroke/TIA Start: 10/31/24 01:12 Text: For PCU Patients: NIH and Neuro Check every 4 Status: Active hours, PRN and with change in RN caregiver. Freq: [id number] Protocol: Activity Type Activity Date Activity User E-sign Co-sign Detail Recorded Client Recorded Date Recorded By Document 10/31/24 06:00 [facility] [id number] 10/31/24 06:25 [facility] 10/31/24 06:00 NIH Stroke Scale [NIHSS] A score of 0 is normal or asymptomatic . Total possible score is 42. Inpatient: RN or Physician to activate a stroke alert for onset of new stroke symptoms or with NIHSS increase >/= 3 points. Following change in neurological status, NIHSS will be performed per physician order or more frequently PRN. -1a. Level of Consciousness 0 - Alert; keenly responsive -1b. LOC Questions 0 - Answers BOTH questions correctly -1c. LOC Commands 0 - Performs BOTH tasks correctly -2. Best Gaze 1 - Partial gaze palsy; -3. Visual 0 - No visual loss -4. Facial Palsy 2 - Partial paralysis ( total or near- total paralysis of lower face) -5a. Left Arm 3 - No effort against gravity ; arm falls -5b. Right Arm 0 - No drift; arm holds 90 ( or 45) degrees for full 10 seconds -6a. Left Leg 3 - No effort against gravity ; leg falls to bed immediately -6b. Right Leg 0 - No drift; leg holds 30- degree position for full 5 seconds -7. Limb Ataxia 2 - Present in 2 limbs -8. Sensory 2 - Severe to total sensory loss; -9. Best Language 0 - No aphasia; normal -10. Dysarthria 0 - Normal -11. Extinction and Inattention 0 - No abnormality -Total 13 Query Text:A score of 0 is normal or asymptomatic. Total possible score is 42 . ED: Notify Physician for NIHSS increase by > / = 3 points. Inpatient: RN or Physician to activate a stroke alert for NIHSS increase of > / = 3 points. Coma Scale [Assess] -Eye Opening Spontaneous -Motor Obeys Commands -Verbal Oriented [Total] -Coma Scale Total 15
--- NOTE | 2024-10-31 11:45 | CASEMGMT ---
Addendum entered by Xander Bean 10/31/24 12:41: 12:18 PM: Message sent to Nathalie, cardiology coordinator, via Backline and referral made to [facility]. Original Note: RN?CM?ASSESSMENT ? RN?CM?to room to meet with patient for initial transition planning/care coordination?assessment.?RN?CM?introduced self and role at [facility].? Pt voices understanding and consents to?assessment?at this time.? Pt resting in bed. Pt kept eyes closed for most of the assessment, but would open eyes occasionally and would answer questions appropriately.?? Care providers, pharmacy, and demographics verified/updated at this time. ? Strata: 1 PCP: No PCP. Physician's Directory provided. Preferred Pharmacy: [facility] Insurance: [facility] 4 Me Prescription Benefit:?yes LNOK: Grandmother, Renée. Mother, Yael. Living Arrangements: Pt lives in 2-story home w/her son. There are 3 steps to enter. Bedroom and full bathroom upstairs. 1/2 bath on main floor. Pt is independent @ her baseline w/ADL's and IADL's. 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 Transportation:?Pt drives. DME: Pt uses no DME. HHC/SNF: No hx ST eval has been completed. PT/OT evals pending. Discussed discharge plan. Questions answered. Pt would like to go to [facility] @ discharge and declines wanting list of other facilities/locations unless [facility] unable to accept her. PLAN:?? [facility], pending acceptance and insurance approval. ? Levar CHAWLAN?RN?CM ? ?
[2024-10-31] MEDS: DEXAMETHASONE SODIUM PHOSPHATE 1 ML OPHTHALMIC ×3 (12:07→22:50)
[2024-10-31] MEDS: DEXTROAMPHETAMINE/AMPHETAMINE 30 MG TABLET PO (12:07)
--- NOTE | 2024-10-31 12:53 | CON.PCM.NE_ITS ---
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 Suspect that hypertension is the primary risk factor in this case, but an evaluation for cardioembolic causes is needed given that the CARMEN is a common cardioembolic territory. Neurological examination shows left hemiparesis, arm worse than leg. Neuroimaging shows a right CARMEN infarct and several scattered t2 hypertintensities that likely reflect more subtle prior ischemic injuries: - TTE. If possible, SUNDAY would be beneficial to rule out a cardiac thrombus or other embolic source if TTE is unremarkable. If evidence of PFO, would scan her lower extremities for DVT and could consider PFO closure with ROPE score of 6. - If no cardioembolic source noted, would get a 30 day event monitor to assess for AF at discharge. - BP management is likely to be the most importnat preventive effort going forward. In the short term, permissive hypertension is warranted given her subtle exam fluctuations. 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 If her exam is stable would slowly start adding oral anti-hypertensives in dany next several days - initially with low doses and slowly titrating up over the next several wees - Check a urine drug screen - Continue asa 81 indefinitely - Continue atorvasttin 80 indefinitely - Stressed the importance of stopping smoking - Call 911 with new stroke symptoms in the future - PT, OT, speech evals. Patient is likely a good acute rehab candidate. [Quick text reminder: .OSUtnk/.OSUnontnk] HPI Consult Data Date of Consult: 10/31/24 HPI Narrative HPI Narrative: JAYDA MACKEY, is a 39 F who presents for evaluation of left hemiparesis Ms. Mackey was in her normal state of health yesterday afternoon when she fell after trying to stand from a chair and found that her left leg and arm were weak. She eventually presented to the ED, outside of a thrombolysis window and her hemiparesis has persisted mostly unchanged since that time - she thinks that she may have some more moveent in her proximal arm than she did initially, but her hand movements may have decreased. She denies other focal neurolgoic symptoms. It appears she has likely had severe hypertension since she was about 14 years ago. She states that her typical BPs are in dany range of the 180s or above (although sometimes lower). She presented with an SBP around 220 and is currently in the 180s. She is just on clonidine as an outpatient and doesn't recall trialing other BP meds. No history of snoring, apneic episodes of excessive daytime somnolence. [facility] Medical History (Updated 10/31/24 @ 00:[address] Nehemiah Haney, DO) HTN (hypertension) ADHD Migraine Strain of great toe, right Contusion of right great toe without damage to nail Home Medications ?Medication ?Instructions ?Recorded ?Last Taken ?Type dextroamphetamine-amphetamine 15 25 mg PO BID 07/17/14 Unknown History mg tablet (Adderall) loratadine 10 mg tablet (Claritin) 10 mg PO DAILY PRN PRN Allergies 01/25/18 Unknown History clonidine HCl 0.1 mg tablet 0.1 mg PO Q6H PRN hyperten sive 11/27/23 Unknown Rx emergency #10 tabs dexamethasone sodium phosphate 0.1 1 drp ophthalmic (e ye) 4X/DAY 10/30/24 Unknown History % eye drops dextroamphetamine-amphetamine 30 1 tab PO BID 10/30/24 Unknown History mg tablet erythromycin 5 mg/gram (0.5 %) eye 1 applic ophthalmic (eye) QPM 10/30/24 Unknown History ointment rizatriptan 10 mg tablet 10 mg PO Q2H PRN migraine he adache 10/30/24 Unknown History Allergy/AdvReac Type Severity Reaction Status Date / Time codeine Allergy Unknown Verified 10/30/24 21:22 naproxen Allergy Hives Verified 10/30/24 21:22 Social History Smoking Status: Current every day smoker tobacco type: e-cigarettes Vital Signs Vital Signs Vital Signs: 10/30/24 20:41 10/30/24 20:50 10/30/24 20:50 Temperature 98 F Temperature Source Oral Pulse Rate 80 Pulse Strength Respiratory Rate 17 Respiratory Effort Respiratory Depth Respiratory Pattern Blood Pressure 222/121 H Blood Pressure Mean 154 Blood Pressure Source Blood Pressure Position Blood Pressure Location Pulse Ox 100 Oxygen Delivery Method Room Air Room Air 10/30/24 21:00 10/30/24 21:15 10/30/24 21:30 Temperature Temperature Source Pulse Rate 70 68 Pulse Strength Respiratory Rate 11 L 17 Respiratory Effort Respiratory Depth Respiratory Pattern Blood Pressure 201/116 H 188/109 H 171/102 H Blood Pressure Mean 144 135 125 Blood Pressure Source Blood Pressure Position Blood Pressure Location Pulse Ox 99 99 Oxygen Delivery Method Room Air Room Air 10/30/24 22:00 10/30/24 22:30 10/30/24 23:00 Temperature Temperature Source Pulse Rate 68 68 69 Pulse Strength Respiratory Rate 15 14 15 Respiratory Effort Respiratory Depth Respiratory Pattern Blood Pressure 172/97 H 160/107 H 162/99 H Blood Pressure Mean 122 124 120 Blood Pressure Source Blood Pressure Position Blood Pressure Location Pulse Ox 98 99 100 Oxygen Delivery Method Room Air Room Air Room Air 10/30/24 23:14 10/31/24 00:00 10/31/24 00:30 Temperature 98 F 98.2 F Temperature Source Oral Pulse Rate 72 69 67 Pulse Strength Respiratory Rate 18 16 16 Respiratory Effort Respiratory Depth Respiratory Pattern Blood Pressure 163/95 H 166/99 H 170/105 H Blood Pressure Mean 117 121 126 Blood Pressure Source Monitor Blood Pressure Position Supine Blood Pressure Location Left Arm Pulse Ox 100 100 100 Oxygen Delivery Method Room Air 10/31/24 01:30 10/31/24 02:00 10/31/24 06:00 Temperature 98.2 F 98.5 F Temperature Source Oral Oral Pulse Rate 74 73 Pulse Strength Respiratory Rate 16 16 Respiratory Effort Normal Respiratory Depth Normal Respiratory Pattern Normal Blood Pressure 157/110 H 118/84 H Blood Pressure Mean 125 95 Blood Pressure Source Monitor Monitor Blood Pressure Position Semi-Fowlers Supine Blood Pressure Location Left Arm Left Arm Pulse Ox 99 99 Oxygen Delivery Method Room Air Room Air Room Air 10/31/24 06:00 10/31/24 08:13 10/31/24 08:17 Temperature Temperature Source Pulse Rate 62 Pulse Strength Respiratory Rate Respiratory Effort Normal Respiratory Depth Normal Respiratory Pattern Normal Blood Pressure Blood Pressure Mean Blood Pressure Source Blood Pressure Position Blood Pressure Location Pulse Ox Oxygen Delivery Method Room Air Room Air 10/31/24 09:35 10/31/24 10:00 Temperature 98.2 F Temperature Source Oral Pulse Rate 85 Pulse Strength Normal (2+) Respiratory Rate 16 Respiratory Effort Respiratory Depth Respiratory Pattern Blood Pressure 187/94 H Blood Pressure Mean 125 Blood Pressure Source Monitor Blood Pressure Position Semi-Fowlers Blood Pressure Location Left Forearm Pulse Ox 95 Oxygen Delivery Method Room Air Weight Weight: 79.4 kg Body Mass Index (BMI) 30.0 Physical Exam Narrative Severe left hemiparesis, arm worse than leg with a hemisensory deficit. Lab / Micro Data 10/30/24 20:40 10/30/24 20:40 Labs: Laboratory Results - last 24 hr 10/30/24 20:40: WBC 10.5, RBC 6.08 H, Hgb 18.5 H*, Hct 54.8 H, MCV 90.1, MCH 30.4, MCHC 33.8, RDW Std Deviation 39.9, RDW Coeff of Maria Teresa 12.1, Plt Count 311, MPV 10.0, Immature Gran % (Auto) 0.600, Neut % (Auto) 79.3 H, Lymph % (Auto) 15.0 L, [place] % (Auto) 4.2, Eos % (Auto) 0.4, Baso % (Auto) 0.5, Absolute Neuts (auto) 8.3 H, Absolute Lymphs (auto) 1.57, Nucleated RBC % 0, PT 11.8, INR 0.9, APTT 25.8, Sodium 141, Potassium 3.4, Chloride 100, Carbon Dioxide 24.6, Anion Gap 16 H, BUN 13, Creatinine 0.80, Estim Creat Clear Calc 93.24, Est GFR (MDRD) Non-Af 95, BUN/Creatinine Ratio 16.5, Glucose 92, Calcium 10.5, Troponin T High Sens < 6 10/30/24 22:45: Hemoglobin A1c 5.4, Troponin T Hi Sens 2 Hr < 6, TSH 3.230 10/30/24 23:50: Serum Folate 7.69 10/31/24 06:38: Triglycerides 201 H, Cholesterol 209 H, LDL Cholesterol, Calc 108, VLDL Cholesterol 40, HDL Cholesterol 61, Cholesterol/HDL Ratio 3.43, Vitamin B12 484 Imaging Radiology Impression Brain CT 10/30/24 20:46 IMPRESSION: Left frontal lobe periventricular white matter focal hypodensity measuring approximally 7 x 7 mm, which may reflect a lacunar infarction however acute infarction is not entirely excluded. Dr. Silva was notified by Jeanette De Jesus at 9:01 pm EST on 10/30/24. Reading Location: [facility] Head/Neck CTA 10/30/24 20:52 IMPRESSION: No acute large vessel occlusion. No high grade stenosis. Reading Location: [facility] Chest X-Ray 10/30/24 21:41 IMPRESSION: No acute cardiopulmonary disease. Reading Location: [facility] Brain MRI 10/31/24 06:00 IMPRESSION: There is a large area of restricted diffusion in the right frontal and superior parietal precentral cortex and superior periventricular region, measuring 9.0 by 3.0 by 4.6 cm, with associated increased T2 signal, and decreased T1 signal components, consistent with a subacute infarct, with acute components. There is a 0.6 cm focus of restricted diffusion in the left superior precentral cortex, axial image /, which appears acute. There is a 0.8 cm old lacunar infarct in the deep white matter on the left. Critical results were discussed with Velia Parada by Thai at the time of dictation. [facility] Active Medications Active Medications Active Medications: Current Medications Generic Name Dose Route Start Last Admin Trade Name Freq PRN Reason Stop Dose Admin Acetaminophen 650 mg 10/31/24 01:12 10/31/24 06:35 Acetaminophen 325 Mg Tablet PO 650 mg Q4H PRN PRN Administration Pain 1-10 Or Fever>99.6 Amphetamine/Dextroamphetamine 30 mg 10/31/24 10:00 10/31/24 12:07 Dextroamphetamine/Amphetamine 30 Mg Tablet PO 30 mg BID MARIN Administration Aspirin 81 mg 10/31/24 08:00 10/31/24 12:07 Aspirin 81 Mg Tab.Chew PO 81 mg DAILYCM MARIN Administration Atorvastatin Calcium 80 mg 10/30/24 23:43 10/31/24 01:31 Atorvastatin Calcium 80 Mg Tablet PO 80 mg QHS MARIN Administration Cyclobenzaprine HCl 10 mg 10/31/24 02:24 10/31/24 03:00 Cyclobenzaprine Hcl 10 Mg Tablet PO 10 mg TID PRN PRN Administration MUSCLE SPASM Dexamethasone Sodium Phosphate 1 ml 10/31/24 10:00 10/31/24 12:07 Dexamethasone Sodium Phosphate 5 Ml Drops OPHTHALMIC 1 ml 4X/DAY MARIN Administration Erythromycin 1 applic 10/31/24 22:00 Erythromycin Base 1 Opth.Tube OPHTHALMIC QHS MARIN Hydralazine HCl 5 mg 10/31/24 01:12 Hydralazine 20 Mg/Ml Vial IV 11/01/24 01:12 Q30M PRN maintain BP parameters with HR <60 Sodium Chloride 1,000 mls @ 70 mls/hr 10/30/24 23:45 10/31/24 09:56 IV 10/31/24 14:02 70 mls/hr .[id number] MARIN Infusion Labetalol HCl 10 - 20 mg 10/31/24 01:12 Labetalol 20 Mg/4 Ml Vial IV 11/01/24 01:12 Q10M PRN PRN maintain BP parameters with HR >/=60 Loratadine 10 mg 10/31/24 01:12 Loratadine 10 Mg Tablet PO DAILY PRN PRN Allergies Sodium Chloride 10 - 40 ml 10/31/24 01:16 0.9% Saline Lock 10 Ml Syringe IV UD PRN SALINE FLUSH NIHSS NIHSS Nursing Documentation NIHSS Nursing Documentation: NIHSS: Ischemic Stroke/TIA Start: 10/31/24 01:12 Text: For PCU Patients: NIH and Neuro Check every 4 Status: Active hours, PRN and with change in RN caregiver. Freq: [id number] Protocol: Activity Type Activity Date Activity User E-sign Co-sign Detail Recorded Client Recorded Date Recorded By Document 10/31/24 10:00 [facility] [id number] 10/31/24 10:07 [facility] 10/31/24 10:00 NIH Stroke Scale [NIHSS] A score of 0 is normal or asymptomatic . Total possible score is 42. Inpatient: RN or Physician to activate a stroke alert for onset of new stroke symptoms or with NIHSS increase >/= 3 points. Following change in neurological status, NIHSS will be performed per physician order or more frequently PRN. -1a. Level of Consciousness 1 - Not alert; Arousable by minor stimuli to obey, answer & respond -1b. LOC Questions 0 - Answers BOTH questions correctly -1c. LOC Commands 0 - Performs BOTH tasks correctly -2. Best Gaze 0 - Normal -3. Visual 0 - No visual loss -4. Facial Palsy 1 - Minor paralysis ( flattened nasolabial fold , asymmetry on smiling) -5a. Left Arm 4 - No movement -5b. Right Arm 0 - No drift; arm holds 90 ( or 45) degrees for full 10 seconds -6a. Left Leg 4 - No movement -6b. Right Leg 0 - No drift; leg holds 30- degree position for full 5 seconds -7. Limb Ataxia UN - Amputation or joint fusion, explain -'UN' explanation can not move left side -8. Sensory 2 - Severe to total sensory loss; -9. Best Language 0 - No aphasia; normal -10. Dysarthria 0 - Normal -11. Extinction and Inattention 0 - No abnormality -Total 12 Query Text:A score of 0 is normal or asymptomatic. Total possible score is 42 . ED: Notify Physician for NIHSS increase by > / = 3 points. Inpatient: RN or Physician to activate a stroke alert for NIHSS increase of > / = 3 points. NIHSS 1b. LOC Questions: 0 - Answers BOTH questions correctly 1c. LOC Commands: 0 - Performs BOTH tasks correctly 2. Best Gaze: 1 - Partial gaze palsy; 3. Visual: 0 - No visual loss 4. Facial Palsy: 1 - Minor paralysis (flattened nasolabial fold, asymmetry on smiling) 5a. Left Arm: 2 - Some effort against gravity; 5b. Right Arm: 0 - No drift; arm holds 90 (or 45) degrees for full 10 seconds 6a. Left Le - No drift; leg holds 30-degree position for full 5 seconds 6b. Right Le - No movement 7. Limb Ataxia: 0 - Absent 8. Sensory: 1 - [id number] sensory loss; 9. Best Language: 0 - No aphasia; normal 10. Dysarthria: 1 = [id number] dysarthria; 11. Extinction and Inattention: 0 - No abnormality Total: 10
--- NOTE | 2024-10-31 14:52 | CHAPLAIN ---
Type of Pastoral Visit _x__ Initial Visit ___ Follow-up Visit ___ On-call Visit ___ General Patient Visit ___ Spiritual Assessment ___ Family Conference ___ Bereavement ___ Rapid Response ___ Code Blue ___ Other (describe below) Pastoral Care Referral From _x__ Patient ___ Family ___ Nurse ___ Physician ___ Thread Weaver ___ Advisor To Command In Combat ___ Other (describe below) Sacrament/Intervention _x__ Active listening ___ Anointing ___ Taoist ___ Bereavement ___ Communion _x__ Yadira exploration ___ _x__ Life review _x__ Prayer ___ Reconciliation ___ Sacrament of Sick _x__ Supportive presence ___ Wedding ___ Other (describe below) Pastoral Comments patient and several family members are in the room; pt states that she specifically asked for the analyst business analysis because I wanted someone to talk to God for me; pt expresses fears and worries due to I had a stroke and I am so young; pt gives some review of her life situation and speaks of the people in her family that support her; pt has a teenage son; pt speaks of yadira in God but does not have a personal connection to a yadira community; pt is tearful at times; many in the room express support and speak of how determined the patient has been in life challenges; affirmed feelings and offered spiritual support and calming words of care; pt asked for Bible verses to read and this was later supplied to her; prayer and presence given; pt asks for follow up visit for tomorrow if possible
--- NOTE | 2024-10-31 15:50 | CASEMGMT ---
Addendum entered by Maggy Kramer 10/31/24 16:25: MARIA R LUX updated patient and family that patient has been accepted by [facility] pending precert. Patient and family had no further quesitons or concerns. Original Note: MARIA R LUX updated by Nathalie in [facility] Rehab patient had been accepted and precert will be started after SUNDAY report and tox screen completed. MARIA R LUX updated nursing.
--- NOTE | 2024-10-31 17:26 | ECHOTEE_ITS ---
Reason For Study Reason For Study: CVA Medication SUNDAY probe 6VT-D (SN [id number]) passed with minimal difficulty. No complications were noted. Cetacaine Topical [place] given X3 orally. Versed 2 mg given slow IVP. Fentanyl 50 mcg given slow IVP. Performed a rapid injection of agitated mix of 9 cc saline and 1cc air to assess for atrial septal defect. Left Ventricle Normal LV size. The left ventricular ejection fraction is 60 %. No regional wall motion abnormalities noted. Right Ventricle Normal RV size. Normal systolic function. Atria Bubble contrast study negative for right to left interatrial shunt. Normal left atrium. No thrombus is detected in the left atrial appendage. Normal right atrium. Mitral Valve Normal mitral valve. Tricuspid Valve Normal tricuspid valve. Aortic Valve Normal aortic valve. Trisinus/trileaflet aortic valve. Pulmonic Valve Normal pulmonic valve. Vessels Normal aortic root. Pericardium No pericardial effusion. ECHO/Echo Transesophageal (SUNDAY) Interpretation Summary Normal LV size. The left ventricular ejection fraction is 60 %. Bubble contrast study negative for right to left interatrial shunt. No thrombus is detected in the left atrial appendage. Ordering Physician: Sen Clarke Performed By: Kim Rodriguez RDCS
[2024-10-31 18:06] LABS: Barbiturate Urine NEGATIVE (< 200 ng/mL); Benzodiazepine Urine NEGATIVE (< 200 ng/mL); PCP Urine NEGATIVE (< 25 ng/mL); THC Urine PRESUMPTIVE POSITIVE (< 50 ng/mL)
[2024-10-31] MEDS: Erythromycin Base 1 OPTH.TUBE 1 APPLIC OPHTHALMIC (22:50)
[2024-11-01] VITALS (11 sets, daily range): BP systolic 158–208; BP diastolic 90–115; PULSE 65–89; RESP 14–18; TEMP 35.9–37.2; O2SAT 95–99
[2024-11-01 07:01] LABS: Hematocrit 47.1 % (37-47); Hemoglobin 16.2 g/dL (12.0-15.0); Immature Granulocytes Count 0.050 X10^3/uL (0.0-0.0); Mean Corp Hgb Conc 34.4 g/dL (32-36); Mean Corpuscular Volume 88.7 fL (81-99); Mean Platelet Vol. 10.4 fl (6.2-12.0); NRBC Flagged by Analyzer 0 % (0-5); Platelet Count 290 K/mm3 (150-450); RBC Distribution Width CV 12.0 % (11.6-14.6); RBC Distribution Width SD 39.5 fl (35.1-43.9); Red Blood Count 5.31 M/mm3 (4.2-5.4); White Blood Count 12.7 K/mm3 (4.4-11.0)
[2024-11-01] MEDS: 0.9% Saline Lock 10 ML Syringe IV (10:51)
[2024-11-01] MEDS: DEXTROAMPHETAMINE/AMPHETAMINE 30 MG TABLET PO (13:14)
--- NOTE | 2024-11-01 14:11 | CASEMGMT ---
Social Work Pt did have a stroke. SW to room multiple times to complete PHQ9. Pt not opening eyes and waking up enough to cooperate with PHQ9. SATYA Lewis
--- NOTE | 2024-11-01 14:22 | DCINST_ITS ---
Discharge Instructions DC O2, CPAP, BIPAP needs Home O2 Discharge instructions: No Dressing / Incision Discharge Activity: - (Discharging to [facility] rehab) Follow Up Care Test Results: Test results from this visit will be discussed in further detail at your follow- up appointment, if applicable. Discharge Plan Admission Admit Date/Time: 10/30/24 23:35 Primary Reason for Your Visit: Left hemiparesis Attending Provider: Vee Stuart Primary Care Provider: Care Physician,No Primary Consulting Providers: David Gale; Ehsan Uriarte; Sheeba Rodriguez; Lydia Orantes; Renee Cleveland; Kyle Ghosh; Leidy Mckinnon; Reagan White; Tong Rai; Juaquin Campos; Shakira Anthony; Aaron Chavez; Sherry Lugo; Natalya Arredondo; Hemanth Reyna; Ajay Johnson; Melissa Haywood; Isac Levi; Meme Pepe; Mark Garcias; Nehemiah Haney; Sen Clarke Instructions Patient Instructions: Discharge Instructions for Stroke Additional Instructions / Restrictions: DISCHARGE INSTRUCTIONS PLEASE READ *Please take this with you to your next doctors appointment* - It was recommended by neurology that a 30-day event monitor be prescribed on discharge, this order has been entered - You will need to follow-up with neurology after discharge, a referral to [facility] neurology will be made - You have been started on lisinopril 10 mg, given how high your blood pressure has been it is also advised that you start 12.5 mg of hydrochlorothiazide tomorrow as well and uptitrate both of these as tolerated, ultimately goal blood pressure less than 130/85 -Would recommend lab work (BMP) to check your potassium and kidney function in 3 to 4 days - You have been started on aspirin 81 mg and atorvastatin 80 mg, you will need to take these lifelong - Smoking cessation is strongly advised - Rizatriptan as needed for migraine headaches has been discontinued on discharge due to her stroke - May need to consider tapering Adderall or start alternate agents if patient's blood pressure continues to be difficult to control - Family indicated the patient has chronic headaches and follows with neurology, would recommend she continue following on discharge for further evaluation and treatment -Please call your primary care provider's office upon discharge to schedule a hospital follow up within 1 week. -If you do not have a primary care physician of list of local primary care physicians can be provided for you upon discharge. Please ask for this list prior to discharge -For any concerning signs or symptoms please call 911 or proceed to the nearest emergency department Discharge Orders/Prescriptions Prescriptions: New cyclobenzaprine 10 mg Tablet 10 mg PO TID PRN PRN (Reason: Muscle Spasm) Qty: 0 0RF atorvastatin 80 mg Tablet 80 mg PO QHS Qty: 0 0RF lisinopril 10 mg Tablet 10 mg PO DAILY Qty: 0 0RF hydrochlorothiazide 12.5 mg Capsule 12.5 mg PO DAILY Qty: 0 0RF aspirin 81 mg Tablet,Chewable 81 mg PO DAILYCM Qty: 0 0RF Continued loratadine [Claritin] 10 MG tablet 10 mg PO DAILY PRN PRN (Reason: Allergies) dexamethasone sodium phosphate 0.1 % drops 1 drp ophthalmic (eye) 4X/DAY dextroamphetamine-amphetamine 30 mg tablet 1 tab PO BID erythromycin 5 mg/gram (0.5 %) ointment 1 applic ophthalmic (eye) QPM Discontinued dextroamphetamine-amphetamine [Adderall] 15 MG tablet 25 mg PO BID clonidine HCl 0.1 mg tablet 0.1 mg PO Q6H PRN (Reason: hypertensive emergency) Qty: 10 0RF rizatriptan 10 mg tablet 10 mg PO Q2H PRN (Reason: migraine headache) Other Ambulatory Orders: 30 Day Event Recorder Preventi (Urgent) Timeframe: 1 Day Facility: [facility] - Location: Cardiovascular Services Ordered By: Dr. Vee Stuart Referrals / Follow Up: [facility] [Other] (A referral will be sent to [facility] neurology for follow-up) Care Physician,No Primary [Primary Care Provider] - ( -If you do not have a primary care physician of list of local primary care physicians can be provided for you upon discharge. Please ask for this list prior to discharge ) Disposition Disposition (needs filled in before D/C Order can be placed): Inpatient Rehab Unit/Facility
--- NOTE | 2024-11-01 14:30 | PCM.DC.SUM ---
Providers Date of Admission: 10/30/24 Date of Discharge: 11/01/24 Primary Care Physician: No Primary Care Phys Consultations 10/31/24 01:12 Consult: Tele-Neurology Routine Consulting Provider: [facility] Reason for Consult: Acute Ischemic Stroke/TIA EMERGENT Consult: No MD Notified: Yes Date Notified: 10/30/24 Time Notified: 23:38 Method of Notification: ED Physician Initiated Nursing Unit Staff Notify [facility] of Tele-Neurology Consult: Yes Reason For Visit: ISCHEMIC CVA WITH LEFT SIDED WEAKNESS Diagnosis Discharge Diagnosis (1) Ischemic cerebrovascular accident (CVA): Status: Acute Code(s): I63.9 - Cerebral infarction, unspecified (2) Acute left-sided weakness: Status: Acute Code(s): R53.1 - Weakness (3) Migraine headache: Status: Acute Code(s): G43.909 - Migraine, unspecified, not intractable, without status migrainosus Qualifiers: Intractability: not intractable Migraine type: unspecified Status migrainosus presence: without status migrainosus Qualified Code(s): G43.909 - Migraine, unspecified, not intractable, without status migrainosus Plan # Acute ischemic CVA # Hypertensive urgency # History of ADHD # Chronic tobacco use # History of chronic headaches/migraines following with neurology Medications at Discharge Home Medications loratadine 10 mg tablet (Claritin) 10 mg PO DAILY PRN PRN Allergies 01/25/18 dexamethasone sodium phosphate 0.1 % eye drops 1 drp ophthalmic (eye) 4X/DAY eye inflamattion 10/30/24 dextroamphetamine-amphetamine 30 mg tablet 1 tab PO BID inflammation 10/30/24 erythromycin 5 mg/gram (0.5 %) eye ointment 1 applic ophthalmic (eye) QHS eye 10/30/24 aspirin 81 mg chewable tablet 81 mg PO DAILY heart health #0 tabs 11/01/24 atorvastatin 80 mg tablet 80 mg PO QHS cholesterol #0 tabs 11/01/24 cyclobenzaprine 10 mg tablet 10 mg PO TID PRN PRN Muscle Spasm #0 tabs 11/01/24 hydrochlorothiazide 12.5 mg capsule 12.5 mg PO DAILY blood pressure #0 caps 11/01/24 lisinopril 10 mg tablet 10 mg PO DAILY blood pressure #0 tabs 11/01/24 Hospital Course Procedures Transesophageal Echo and Transthoracic echo Summary of Care Provided Minutes Spent on Discharge: 38 Hospital Course: # Acute ischemic CVA # Hypertensive urgency # History of ADHD # Chronic tobacco use # History of chronic headaches/migraines following with neurology 39-year-old female history of chronic headaches and migraines following with neurology, ADHD, tobacco use, untreated hypertension presented [facility] ED 10/30/2024 due to acute left-sided weakness with slurred speech. In the ED blood pressure 222/[address] without contrast revealed left frontal lobe periventricular white matter focal hypodensity measuring 7 mm x 7 mm which may reflect lacunar infarct but cannot rule out acute infarct. She then had CTA with no LVO or high-grade stenosis. [facility] evaluated but no thrombolytics as patient was outside the window. She was admitted to PCU for further workup and management. MRI brain demonstrated large area of restricted diffusion in the right frontal and superior parietal precentral cortex and superior periventricular region measuring 9 x 3 x 4.6 cm with associated increased T2 signal and decreased T1 signal components consistent with subacute infarct with some acute components. There was also a 0.6 cm foci of restricted diffusion in the left superior precentral cortex which appeared acute and 0.8 cm old lacunar infarct in the deep white matter on the left. Patient had TTE with stage I diastolic dysfunction, normal EF and negative bubble study however given the extent of patient's infarcts a SUNDAY was recommended, this was completed with no acute abnormalities on 11/01/2024. Teleneurology advised in consultation that patient be on aspirin indefinitely and atorvastatin 80 indefinitely, advised smoking cessation and blood pressure management. They recommended slowly starting additional oral antihypertensives over several days with slow titration over several weeks. Also recommended a 30-day event monitor at discharge. Patient worked with physical therapy and Occupational Therapy and ultimately med rehab was recommended. Patient accepted and was able to be discharged 11/01/2024 MED rehab. Initially saw patient at bedside after her SUNDAY and she was very tired and would not wake up and engage, discussed with staff who said this was something that patient would intermittently do but with additional prompting would wake up and answer questions. When I went back to see patient there were multiple family members in the room and patient opened her eyes and did answer questions and participated in exam and then went back to sleep. She has no new or acute complaints. Has a headache in the back of her head but reportedly has a problem with chronic headaches and follows with neurology on an outpatient basis without significant success in treatment. Ultimately would benefit from continuing to follow on discharge for further management of her headaches. Discharge instructions as follows: DISCHARGE INSTRUCTIONS PLEASE READ *Please take this with you to your next doctors appointment* - It was recommended by neurology that a 30-day event monitor be prescribed on discharge, this order has been entered - You will need to follow-up with neurology after discharge, a referral to [facility] will be made - You have been started on lisinopril 10 mg, given how high your blood pressure has been it is also advised that you start 12.5 mg of hydrochlorothiazide tomorrow as well and uptitrate both of these as tolerated, ultimately goal blood pressure less than 130/85 -Would recommend lab work (BMP) to check your potassium and kidney function in 3 to 4 days - You have been started on aspirin 81 mg and atorvastatin 80 mg, you will need to take these lifelong - Smoking cessation is strongly advised - Rizatriptan as needed for migraine headaches has been discontinued on discharge due to her stroke - May need to consider tapering Adderall or start alternate agents if patient's blood pressure continues to be difficult to control - Family indicated the patient has chronic headaches and follows with neurology, would recommend she continue following on discharge for further evaluation and treatment -Please call your primary care provider's office upon discharge to schedule a hospital follow up within 1 week. -If you do not have a primary care physician of list of local primary care physicians can be provided for you upon discharge. Please ask for this list prior to discharge -For any concerning signs or symptoms please call 911 or proceed to the nearest emergency department Physical Exam Narrative General: Patient initially reluctant to wake up and engage however with family prompting she did wake up and answer questions appropriately and participate in exam HEENT: Atraumatic, normocephalic Eyes: Anicteric, normal conjunctiva, extraocular movements grossly intact Neck: Supple Respiratory: Clear to auscultation bilaterally, normal respiratory effort Cardiovascular: Regular rate and rhythm GI: Soft, nontender, nondistended Extremities: No edema Musculoskeletal: Patient with left hemiplegia, unable to squeeze left hand or wiggle left toes Neuro: Left hemiplegia as noted, NIH is up and fairly consistent across shifts Skin: No rashes appreciated Psych: Slightly reluctant to engage Weight / BMI Weight Weight: 79.4 kg Body Mass Index (BMI) 30.0 ABG / Lab / Microbiology Data 11/01/24 06:04 10/30/24 20:40 Laboratory: Laboratory Results - last 24 hr 10/30/24 16:42: Urine Opiates Screen NEGATIVE, U Buprenorphine Qual NEGATIVE, Ur Oxycodone Screen NEGATIVE, Urine Methadone Screen NEGATIVE, Urine Fentanyl Screen NEGATIVE, Ur Barbiturates Screen NEGATIVE, Ur Phencyclidine Scrn NEGATIVE, Ur Amphetamines Screen PRESUMPTIVE POSITIVE, U Benzodiazepines Scrn NEGATIVE, Urine Cocaine Screen NEGATIVE, U Cannabinoids Screen PRESUMPTIVE POSITIVE 11/01/24 06:04: WBC 12.7 H, RBC 5.31, Hgb 16.2 H, Hct 47.1 H, MCV 88.7, MCH 30.5, MCHC 34.4, RDW Std Deviation 39.5, RDW Coeff of Maria Teresa 12.0, Plt Count 290, MPV 10.4, Immature Gran % (Auto) 0.400, Neut % (Auto) 69.5, Lymph % (Auto) 21.5, [place] % (Auto) 7.5, Eos % (Auto) 0.8, Baso % (Auto) 0.3, Absolute Neuts (auto) 8.9 H, Absolute Lymphs (auto) 2.74, Nucleated RBC % 0, Sodium Cancelled, Potassium Cancelled, Chloride Cancelled, Carbon Dioxide Cancelled, Anion Gap Cancelled, BUN Cancelled, Creatinine Cancelled, Estim Creat Clear Calc Cancelled, Est GFR (MDRD) Non-Af Cancelled, BUN/Creatinine Ratio Cancelled, Glucose Cancelled, Calcium Cancelled Radiography Diagnostic Testing: Radiology Impression Transesophageal Echocardiogram 10/31/24 17:26 Interpretation Summary Normal LV size. The left ventricular ejection fraction is 60 %. Bubble contrast study negative for right to left interatrial shunt. No thrombus is detected in the left atrial appendage. Ordering Physician: Sen Clarke Performed By: Kim Rodriguez RDCS D/C Instructions DC O2, CPAP, BIPAP Needs Home O2 Discharge instructions: No Meaningful Use Info Meaningful Use Meaningful Use Diagnoses (Choose all that apply): Ischemic CVA CVA Therapy Assessed for PT,OT and/or ST?: Yes Ischemic Stroke Antithrombotic order at d/c?: Yes Dx of Atrial fib/flutter?: No Statins at discharge?: Yes If patient is 75 or younger, pt will be discharged on HIGH intensity statin.: Yes Primary Dx Acute Ischemic CVA?: Yes Discharge Plan Admission Admit Date/Time: 10/30/24 23:35 Primary Reason for Your Visit: Left hemiparesis Attending Provider: Vee Stuart Primary Care Provider: Care Physician,No Primary Consulting Providers: David Gale; Ehsan Uriarte; Sheeba Rodriguez; Lydia Orantes; Renee Cleveland; Kyle Ghosh; Leidy Mckinnon; Reagan White; Tong Rai; Juaquin Campos; Shakira Anthony; Aaron Chavez; Sherry Lugo; Natalya Arredondo; Hemanth Reyna; Ajay Johnson; Melissa Haywood; Isac Levi; Meme Pepe; Mark Garcias; Nehemiah Haney; Sen Clarke Instructions Patient Instructions: Discharge Instructions for Stroke Additional Instructions / Restrictions: DISCHARGE INSTRUCTIONS PLEASE READ *Please take this with you to your next doctors appointment* - It was recommended by neurology that a 30-day event monitor be prescribed on discharge, this order has been entered - You will need to follow-up with neurology after discharge, a referral to [facility] will be made - You have been started on lisinopril 10 mg, given how high your blood pressure has been it is also advised that you start 12.5 mg of hydrochlorothiazide tomorrow as well and uptitrate both of these as tolerated, ultimately goal blood pressure less than 130/85 -Would recommend lab work (BMP) to check your potassium and kidney function in 3 to 4 days - You have been started on aspirin 81 mg and atorvastatin 80 mg, you will need to take these lifelong - Smoking cessation is strongly advised - Rizatriptan as needed for migraine headaches has been discontinued on discharge due to her stroke - May need to consider tapering Adderall or start alternate agents if patient's blood pressure continues to be difficult to control - Family indicated the patient has chronic headaches and follows with neurology, would recommend she continue following on discharge for further evaluation and treatment -Please call your primary care provider's office upon discharge to schedule a hospital follow up within 1 week. -If you do not have a primary care physician of list of local primary care physicians can be provided for you upon discharge. Please ask for this list prior to discharge -For any concerning signs or symptoms please call 911 or proceed to the nearest emergency department Discharge Orders/Prescriptions Prescriptions: New cyclobenzaprine 10 mg Tablet 10 mg PO TID PRN PRN (Reason: Muscle Spasm) Qty: 0 0RF atorvastatin 80 mg Tablet 80 mg PO QHS Qty: 0 0RF lisinopril 10 mg Tablet 10 mg PO DAILY Qty: 0 0RF hydrochlorothiazide 12.5 mg Capsule 12.5 mg PO DAILY Qty: 0 0RF aspirin 81 mg Tablet,Chewable 81 mg PO DAILYCM Qty: 0 0RF Continued loratadine [Claritin] 10 MG tablet 10 mg PO DAILY PRN PRN (Reason: Allergies) dexamethasone sodium phosphate 0.1 % drops 1 drp ophthalmic (eye) 4X/DAY dextroamphetamine-amphetamine 30 mg tablet 1 tab PO BID erythromycin 5 mg/gram (0.5 %) ointment 1 applic ophthalmic (eye) QHS Discontinued dextroamphetamine-amphetamine [Adderall] 15 MG tablet 25 mg PO BID clonidine HCl 0.1 mg tablet 0.1 mg PO Q6H PRN (Reason: hypertensive emergency) Qty: 10 0RF rizatriptan 10 mg tablet 10 mg PO Q2H PRN (Reason: migraine headache) Other Ambulatory Orders: 30 Day Event Recorder Preventi (Urgent) Timeframe: 1 Day Facility: [facility] - Location: Cardiovascular Services Ordered By: Dr. Vee Stuart Referrals / Follow Up: [facility] [Other] (A referral will be sent to [facility] for follow-up) Care Physician,No Primary [Primary Care Provider] - ( -If you do not have a primary care physician of list of local primary care physicians can be provided for you upon discharge. Please ask for this list prior to discharge ) Disposition Disposition (needs filled in before D/C Order can be placed): Inpatient Rehab Unit/Facility Charges/Coding Visit Charges Inpatient E&M: 17778 Disch Hosp >30min
--- NOTE | 2024-11-01 14:40 | CHAPLAIN ---
Type of Pastoral Visit ___ Initial Visit _x__ Follow-up Visit ___ On-call Visit ___ General Patient Visit ___ Spiritual Assessment ___ Family Conference ___ Bereavement ___ Rapid Response ___ Code Blue ___ Other (describe below) Pastoral Care Referral From _x__ Patient ___ Family ___ Nurse ___ Physician ___ Ensemble Member ___ Director Of Institutional Giving ___ Other (describe below) Sacrament/Intervention ___ Active listening ___ Anointing ___ Islam ___ Bereavement ___ Communion ___ Yadira exploration ___ ___ Life review _x__ Prayer ___ Reconciliation ___ Sacrament of Sick _x__ Supportive presence ___ Wedding ___ Other (describe below) Pastoral Comments patient is resting; this is a follow up as requested by the pt from yesterday; pt opens eyes just enough to give a 'thumbs down' on how she is feeling and to say one word 'pray'; two family members also in the room; offer of support to all, and prayer given
--- NOTE | 2024-11-01 14:42 | CASEMGMT ---
MARIA R LUX received updated from [facility] that precert has been obtained. MARIA R LUX updated hospitalist, patient to discharge today. Nathalie at updated that patient will discharge today. MARIA R LUX in to patient room and updated patinet and family that she has been approved for [facility] and will discharge today. Patient and family had no further questions or concerns.
--- NOTE | 2024-11-01 14:48 | NURSING ---
Report called to inpatient rehab [facility]. Patient to go to room 405.
[2024-11-01 17:07] LABS: Anion Gap 14 (5-15); BUN 8 mg/dL (4-19); BUN/Creat Ratio 13.4 RATIO (10-20); Calcium,Total 9.2 mg/dL (7.6-11.0); Carbon Dioxide 20.1 mmol/L (21.0-32.0); Chloride 106 mmol/L (98-108); Estimated Creatinine Clearance 127.93 ml/min (50-250); Glucose 140 mg/dL (70-99); Potassium 3.6 mmol/L (3.3-5.1)
== END 2024-11-01 15:00 | DRG 65 ==
LOC: ED 22:45 → PCU 10-31 00:15
PROVIDERS: Family Medicine; Admitting Provider Internal Medicine; Emergency Provider Emergency Medicine; Visit Provider Internal Medicine
DX: I63.9 Cerebral infarction, unspecified (principal); G81.94 Hemiplegia, unspecified affecting left nondominant side; I16.0 Hypertensive urgency; I10 Essential (primary) hypertension; G43.909 Migraine, unspecified, not intractable, without status migrainosus; J30.2 Other seasonal allergic rhinitis; F17.290 Nicotine dependence, other tobacco product, uncomplicated; F90.9 Attention-deficit hyperactivity disorder, unspecified type; E66.3 Overweight; Z68.29 Body mass index [BMI] 29.0-29.9, adult; R29.713 NIHSS score 13
CPT/HCPCS: 36415; 51702; 70450; 70496; 70498; 70551; 71045; 80048; 80061; 80307; 81270; 82607; 82746; 83036; 84443; 84484; 85025; 85610; 85730; 92523; 92610; 93005; 93306; 93312; 93320; 93325; 97110; 97112; 97162; 97166; 97530; 97802; 99285; 99406; Q9967; A4216

== ENCOUNTER 2024-11-01 15:18 | Inpatient (IN) | payer OTHER, SELFPAY ==
--- NOTE | 2024-11-01 16:17 | HP.PCM_ITS ---
HPI - General General Date of Admission: 11/01/24 Date of Service: 11/01/24 Chief Complaint: Here for 3 hours daily rehabilitation. HPI Narrative JAYDA OSHEA, is a 39 Female who presents with followin10/30/2024 [facility] ED stroke alert. Sudden left arm weakness, left leg weakness, slurred speech. Headache, nausea. Left sided weakness, started today, LUE weakness, LLE weakness. Hemoglobin 18.5, inr okay, ptt okay. CT brain left frontal lacunar infarct, CTA head/neck negative large vessel occlusion, negative high grade stenosis. NIHSS 11. Chest x-ray okay, EKG okay. Outside window for TNK, Labetalol given for elevated blood pressure. Reglan, Benadryl, IV fluids given for migraine headache, headache improved. 10/30/2024 Admit [facility]. MRI brain, Echo, Aspirin, Statin for stroke. Permissive hypertension for HTN/stroke. Tylenol, Morphine IV prn for migraine headache. Recommend smoking cessation. Hold Adderall. 10/30/2024 Echo Normal LV size. LVSF 65%. Bubble study negative. Stage 1 diastolic dysfunction. 10/31/2024 Migraine, NIHSS 13. Migraine unresolved with Maxalt. 10/31/2024 MRI brain showed large right sided acute/subacute infarct, small left sided acute infarct, old left lacunar infarct. 11/01/2024 30 day monitor. Lisinopril 10mg daily, HCTZ 12.5mg daily for Hypertension. Aspirin 81mg daily, Atorvastatin 80mg qhs lifelong. Stop Maxalt 2/2 stroke. Taper Adderall 2/2 stroke. 11/01/2024 Admit to with debility, here for 3 hours daily rehabilitation, strengthening, prior to disposition determination. [facility] Medical History (Updated 11/01/24 @ 16:[address] Luis Ravi MD) HTN (hypertension) ADHD Migraine Strain of great toe, right Contusion of right great toe without damage to nail Home Medications ?Medication ?Instructions ?Recorded ?Last Taken ?Type loratadine 10 mg tablet (Claritin) 10 mg PO DAILY PRN PRN Allergies 01/25/18 Unknown History dexamethasone sodium phosphate 0.1 1 drp ophthalmic (e ye) 4X/DAY eye 10/30/24 Unknown History % eye drops inflamattion dextroamphetamine-amphetamine 30 1 tab PO BID inflamma tion 10/30/24 Unknown History mg tablet erythromycin 5 mg/gram (0.5 %) eye 1 applic ophthalmic (eye) QHS eye 10/30/24 10/31/24 History ointment aspirin 81 mg chewable tablet 81 mg PO DAILYCM heart h ealth #0 11/01/24 11/01/24 Rx tabs atorvastatin 80 mg tablet 80 mg PO QHS cholesterol #0 tabs 11/01/24 10/31/24 Rx cyclobenzaprine 10 mg tablet 10 mg PO TID PRN PRN Musc le Spasm 11/01/24 11/01/24 13:15 Rx #0 tabs hydrochlorothiazide 12.5 mg capsule 12.5 mg PO DAILY b lood pressure #0 11/01/24 Unknown Rx caps lisinopril 10 mg tablet 10 mg PO DAILY blood pressur e #0 11/01/24 11/01/24 Rx tabs Allergy/AdvReac Type Severity Reaction Status Date / Time codeine Allergy Unknown Verified 10/30/24 21:22 naproxen Allergy Hives Verified 10/30/24 21:22 Family History (Updated 11/01/24 @ 16:[address] Luis Ravi MD) Mother Hypertension Depression Anxiety PTSD (post-traumatic stress disorder) Surgical History (Updated 11/01/24 @ 16:[address] Luis Ravi MD) History of section Social History (Updated 11/01/24 @ 16:[address] Luis Ravi MD) household members: children and other details: Lives with son. Smoking Status: Current every day smoker tobacco type: e-cigarettes alcohol intake: current alcohol intake frequency: 0-2 drinks per day Alcohol type: wine substance use type: does not use ROS Constitutional Constitutional: Reports fatigue and weakness; Denies chills, fever(s) or weight gain ENT HEENT: Denies headache(s), nasal congestion or nasal discharge Cardiovascular Cardiovascular: Denies chest pain or palpitations Respiratory/Chest Respiratory/Chest: Denies cough, excessive phlegm production or shortness of breath with exertion Gastrointestinal Gastrointestinal: Denies abdominal pain, nausea or vomiting Genitourinary Genitourinary: Denies dysuria Musculoskeletal Musculoskeletal: Denies joint pain or joint swelling Integumentary Integumentary: Denies rash or wounds Neurologic Neurologic: Denies focal weakness, numbness or tingling Psychiatric Psychiatric: Denies anxiety, auditory hallucinations, depression, homicidal ideation or suicidal ideation Indicators for Scoring Admitted with or Primary Diagnosis of CVA/Stroke: Yes Hx of CVA/Stroke: No Modified Quinn Score MRS Score at time of Evaluation: 4-Moderate/severe disability NIHSS NIHSS 1a. Level of Consciousness: 1 - Not alert; Arousable by minor stimuli to obey, answer & respond 1b. LOC Questions: 1 - Answers ONE question correctly 1c. LOC Commands: 0 - Performs BOTH tasks correctly 2. Best Gaze: 1 - Partial gaze palsy; 3. Visual: 0 - No visual loss 4. Facial Palsy: 2 - Partial paralysis (total or near-total paralysis of lower face) 5a. Left Arm: 4 - No movement 5b. Right Arm: 0 - No drift; arm holds 90 (or 45) degrees for full 10 seconds 6a. Left Le - No movement 6b. Right Le - No drift; leg holds 30-degree position for full 5 seconds 7. Limb Ataxia: 0 - Absent 8. Sensory: 1 - [id number] sensory loss; 9. Best Language: 0 - No aphasia; normal 10. Dysarthria: 0 - Normal 11. Extinction and Inattention: 2 - Profound keya-inattention or extinction to more than one modality; Total: 16 Stroke Questions Stroke Team Activated: Yes a.Reviewed Inclusion/Exclusion criteria: Yes Was Patient considered for Endovascular Intervention?: No IV Thrombolytic Administered: No No contraindications from thrombolytic administration: Yes Risks, Benefits, Alternatives Discussed: Yes Not given: Patient refusal: No Physical Exam Const alert General Appearance: cooperative HEENT normocephalic Eyes PERRL and EOMs intact bilaterally Neck supple, no JVD and no carotid bruits Resp normal respiratory effort, normal air movement and clear to auscultation bilaterally Cardio regular rate and regular rhythm GI normal to inspection, nondistended, normoactive bowel sounds, non-tender and non-distended Extremity normal capillary refill General Extremity: Negative for edema Skin no rashes or lesions noted General Skin Exam: no breakdown Neuro Neuro Narrative: Dense left hemiplegia, left sided neglect. Psych affect normal Appearance: appropriate Assessment & Plan Assessment/Plan (1) Debility: (2) Stroke: (3) Left hemiplegia: (4) Polycythemia: (5) Essential (primary) hypertension: (6) Tobacco abuse: (7) ADHD: QUALIFIERS: Attention deficit-hyperactivity disorder type: unspecified Qualified Code(s): F90.9 - Attention-deficit hyperactivity disorder, unspecified type (8) Allergic rhinitis: (9) Migraine headache: QUALIFIERS: Intractability: not intractable Migraine type: unspecified Status migrainosus presence: without status migrainosus Qualified Code(s): G43.909 - Migraine, unspecified, not intractable, without status migrainosus PLAN: Plan 39 year old female with below past medical history hospitalized for stroke, left hemiplegia, left sided neglect, complicated by polycythemia, migraines, admitted to for 3 hours daily rehabilitation, strengthening, prior to disposition determination. * Debility - PT/OT/ST. * Pain - Tylenol 1000mg q6 prn pain (1-10). * Bowel - senna/colace 2 tablets bid, Dulcolax 10mg pr x1 prn, MOM 30mL po x 1 prn. * DVT prophylaxis - Lovenox 40mg sc daily. * Stroke - Aspirin 81mg daily. * Hyperlipidemia - Atorvastatin 80mg qhs. * Muscle spasm - Flexeril 10mg tid prn. * Conjunctivitis - Dexamethasone 1ml 4x/day, E-mycin [facility] QHS. * ADHD - Adderall 30mg bid. * Hypertension - Lisinopril 10mg daily, HCTZ 12.5mg daily. * Allergic rhinitis - Loratadine 10mg daily prn.
[2024-11-01 16:45] VITALS: BP 183/117; PULSE 87; RESP 17; TEMP 36.6; O2SAT 98; BMI 28.0
[2024-11-01] MEDS: DEXAMETHASONE SODIUM PHOSPHATE 1 ML OPHTHALMIC ×2 (16:52→21:32)
[2024-11-01 17:49] VITALS: BP 183/117; PULSE 87; RESP 19; TEMP 36.6; O2SAT 98
[2024-11-01] MEDS: Erythromycin Base 1 OPTH.TUBE 1 APPLIC OPHTHALMIC (21:31)
[2024-11-01] MEDS: Senna/Docusate Sodium 1 Tablet 2 TABLET PO (21:32)
[2024-11-01 23:00] VITALS: BP 175/105; PULSE 80
[2024-11-01 23:52] VITALS: BP 173/108; PULSE 79
[2024-11-02] VITALS (10 sets, daily range): BP systolic 148–180; BP diastolic 82–115; PULSE 73–108; RESP 16; TEMP 36.6; O2SAT 95–98; BMI 28.0
[2024-11-02 07:09] LABS: Hematocrit 53.0 % (37-47); Hemoglobin 17.9 g/dL (12.0-15.0); Immature Granulocytes Count 0.050 X10^3/uL (0.0-0.0); Mean Corp Hgb Conc 33.8 g/dL (32-36); Mean Corpuscular Volume 89.5 fL (81-99); Mean Platelet Vol. 10.2 fl (6.2-12.0); NRBC Flagged by Analyzer 0 % (0-5); Platelet Count 345 K/mm3 (150-450); RBC Distribution Width CV 12.3 % (11.6-14.6); RBC Distribution Width SD 40.8 fl (35.1-43.9); Red Blood Count 5.92 M/mm3 (4.2-5.4); White Blood Count 15.1 K/mm3 (4.4-11.0)
[2024-11-02 07:28] LABS: AST(SGOT) 19 U/L (<=31); Alanine Aminotransfer ALT/SGPT 15 U/L (<=34); Albumin, Serum 4.6 g/dL (3.5-5.0); Alkaline Phosphatase 103 U/L (35-104); Anion Gap 14 (5-15); BUN 11 mg/dL (4-19); BUN/Creat Ratio 19.1 RATIO (10-20); Calcium,Total 9.8 mg/dL (7.6-11.0); Carbon Dioxide 20.0 mmol/L (21.0-32.0); Chloride 104 mmol/L (98-108); Estimated Creatinine Clearance 130.27 ml/min (50-250); Globulin 3.2 g/dL (2.2-4.2); Glucose 152 mg/dL (70-99); Magnesium 2.4 mg/dL (1.5-2.2); Potassium 3.7 mmol/L (3.3-5.1)
[2024-11-02] MEDS: Senna/Docusate Sodium 1 Tablet 2 TABLET PO ×2 (08:25→22:18)
[2024-11-02] MEDS: DEXAMETHASONE SODIUM PHOSPHATE 1 ML OPHTHALMIC ×4 (08:30→22:21)
--- NOTE | 2024-11-02 13:06 | PCM.RU.PYE ---
Admission Information Primary Diagnosis:: Stroke, left hemiplegia, Hypertension, Migraines. Status Changes from Prescreening?: No changes Identified Actual Problem List:: Pain, ALteration in Cmfrt, Cognitve Impr/Memory Loss, Alteration in Sleep, Mobility Impaired, Self Care Deficit, Ineffective Communication, Know.Dfct/Disease Process, Know.Dfct of Medicaitons, BP, Hypertension and Alteration-Leisure Activ. Potential Problem List:: DVT, Bleeding, Infection, UTI, Aspiration, Falls, Skin Integrity and Depression Risk of Complications DVT: LMWH, DEBORAH Hose and Sequential Compression Device Bleeding: Monitor Lab Values, Nursing to Teach Precautions for anti-coagulation therapy., Wound, if applicable, to be assessed every shift. and Stroke patients assessed for lethargy or change in status. Infection: Clinical Staff to Monitor for S/S of infection: and S/S of infection include fever, redness, warmth, etc. Urinary Tract Infection: Monitor for frequency, burning, discomfort, or incontinence. and Nursing will obtain urine sample for urinalysis and C&S when ordered. Aspiration: Clinical staff will monitor for coughing, drooling, congestion., Speech will evaluate swallowing and dsyphasia. and Nursing will monitor patient swallowing during meals. Falls: Patient will be evaluated for Fall Precautions and Patient will be placed on Fall Precautions as indicated per protocol. Skin Breakdown: Nursing will assess skin daily using assessment tool. and Nursing will place on Skin Breakdown Precautions as indicated. Pain: Clinical staff will assess patient's pain level per protocol., Medications will be given, if needed, and the pain level reassessed. and Other methods: Massage, distraction, decrease stimulus, etc. used PRN. Plan of Care Patient requires physician specializing in physical medicine and rehab oversight to provide close medical supervision of rehab issues including: Pain Management, Sleep Problems, Bowel and Bladder, Medical and co-morbidity Management, DVT prophylaxis, Rehabilitation Leadership and Coordination of treatment team Patient needs Physical Therapy: For a minimum of 1 hour and At least 5 out of 7 days Patient needs Physical Therapy to improve:: Mobility, Strengthening, Transfers, Stretching, ROM, Endurance, Stairs, Gait and Balance Patient needs Occupational Therapy: For a minimum of 1 hour Patient needs Occupational Therapy to improve ADL's incl.: Eating, Grooming, Bathing, Dressing, Toileting, Toilet transfers, Community Reintegration, Higher functioning activities, Household tasks, Adaptive Equipment, Splinting and Other activities as determined Patient requires speech therapy: For a minimum of 1 hour Patient requires speech therapy for: Swallowing, Cognition, Language Skills and Compensatory Strategies Patient requires 24/7 Rehabilitation Nursing for: Pain Issues, Identifying and preventing risk factors, Monitoring and reporting current medical conditions, Assisting with ambulation, transfer, and all ADL's, Teaching patients about disease process and medications, Family teaching, Providing safe environment, Bowel and Bladder Issues, Skin integrity and Medication Management Patient needs Vineyard Tender/ Case Management for: Discharge Planning, Arranging Home Equipment or Services and Family Interventions Patient needs Dietary and Nutrition Services for: Adequate Nutrition, Nutritional Supplements and Nutritional Education Goals Goals Patient will remain: free from falls and or injury at time of discharge. Patient will perform bed mobility at: - (Min A.) Patient will complete transfers from bed to chair at: - (Min A.) Patient will ambulate: - (75 feet w/ hemiwalker min A x 1; 25 feet w/ hemiwalker min A x 2.) Patient will complete upper body dressing at: - (Min A.) Patient will complete lower body dressing at: - (Min A.) Patient will complete toilet transfer at: - (Min A.) Patient will complete toileting at: - (Min A.) Patient will perform bathing at: - (Min A.) Patient will perform Tub/Shower transfer at: - (DME PRN Min A.) Patient will complete grooming at: - (Min A.) Patient will complete home management skills at: - (Min A.) Patient will achieve: - (3 steps w/ 1 rail Min A.) Patient will have pain level of: of 3 or less Patient's skin will: remain intact and free from infection. Patient will receive: adequate nutrition. Discharge Planning Pt Prognosis for Sig. Practical Improv. w/in Reasonable Time: Fair Estimated Length of stay (days): 21 Anticipated D/C Destination: Home with Outpt Therapy Was Preadmission Assessment Accurate?: Yes
[2024-11-02] MEDS: 0.9% Saline Lock 10 ML Syringe IV (14:30)
[2024-11-02] MEDS: Ensure Plus High Protein 120 ML LIQUID PO (16:34)
--- NOTE | 2024-11-02 19:26 | NURSING ---
pt states she does not need to take Dextroamphetamie/Amphetamine medication while in the hospital. Medication returned to patients mother to take home per patients aprroval.
[2024-11-02] MEDS: Erythromycin Base 1 OPTH.TUBE 1 APPLIC OPHTHALMIC (22:18)
[2024-11-03] VITALS (12 sets, daily range): BP systolic 122–180; BP diastolic 76–112; PULSE 83–103; RESP 16–20; TEMP 35.8–36.8; O2SAT 94–98; BMI 28.0
--- NOTE | 2024-11-03 00:26 | NURSING ---
At 0000, Pt. complaining of 5/10 in her neck and back. Pt. last had Tylenol 1000 mg and Flexeril 10 mg at 2236. Hospitalist, Dr. Nehemiah Haney, paged and returned call. New order placed for one time dose of Oxy 5 mg now and Hydralazine [address] Nehemiah Haney requesting that regular physician on unit set parameters for patient's pain and BP.
[2024-11-03] MEDS: 0.9% Saline Lock 10 ML Syringe IV ×2 (00:51→13:18)
[2024-11-03 07:16] LABS: Hemoglobin 19.2 g/dL (12.0-15.0); Immature Granulocytes Count 0.080 X10^3/uL (0.0-0.0); Mean Corp Hgb Conc 32.8 g/dL (32-36); Mean Corpuscular Volume 91.1 fL (81-99); Mean Platelet Vol. 10.3 fl (6.2-12.0); NRBC Flagged by Analyzer 0 % (0-5); Platelet Count 371 K/mm3 (150-450); RBC Distribution Width CV 12.9 % (11.6-14.6); RBC Distribution Width SD 43.6 fl (35.1-43.9); Red Blood Count 6.42 M/mm3 (4.2-5.4); White Blood Count 17.6 K/mm3 (4.4-11.0)
[2024-11-03 07:20] LABS: Hematocrit 58.5 % (37-47)
[2024-11-03 08:07] LABS: Anion Gap 19 (5-15); BUN 21 mg/dL (4-19); BUN/Creat Ratio 31.0 RATIO (10-20); Calcium,Total 10.2 mg/dL (7.6-11.0); Carbon Dioxide 19.6 mmol/L (21.0-32.0); Chloride 99 mmol/L (98-108); Estimated Creatinine Clearance 105.73 ml/min (50-250); Glucose 122 mg/dL (70-99); Potassium 4.0 mmol/L (3.3-5.1)
[2024-11-03] MEDS: DEXAMETHASONE SODIUM PHOSPHATE 1 ML OPHTHALMIC ×4 (08:50→21:26)
[2024-11-03] MEDS: Ensure Plus High Protein 120 ML LIQUID PO ×3 (08:51→16:38)
[2024-11-03] MEDS: Senna/Docusate Sodium 1 Tablet 2 TABLET PO ×2 (08:52→21:28)
[2024-11-03 10:22] LABS: Mucous, Urine 0 SEEN /hpf (<or=2+); Red Blood Cells-Urine 0 SEEN /hpf (0-5); Squamous Epithelial Cells - UA 0 SEEN /hpf (5-10)
[2024-11-03 10:24] LABS: Color, Urine Yellow (Yellow); Glucose, Dipstick Normal (Normal); Ketone-Dipstick Negative (Negative); Leukocyte Esterase-Dipstick Negative /ul (Negative); Nitrite-Dipstick Negative (Negative); Occult Blood-Urine 10 /ul (Negative); Protein-Dipstick 30 mg/dl (Negative); Specific Gravity, Urine 1.025 (1.002-1.030); Urine Bilirubin Dipstick Negative (Negative)
[2024-11-03] MEDS: 0.9% Normal Saline (1000mL) 1,000 ML 75 ML IV (14:09)
[2024-11-03] MEDS: Erythromycin Base 1 OPTH.TUBE 1 APPLIC OPHTHALMIC (21:27)
[2024-11-04] VITALS (7 sets, daily range): BP systolic 122–172; BP diastolic 79–90; PULSE 76–87; RESP 14–16; TEMP 36.1–36.6; O2SAT 94–95; BMI 28.0
[2024-11-04] MEDS: 0.9% Normal Saline (1000mL) 1,000 ML 75 ML IV ×2 (03:15→10:22)
[2024-11-04 05:51] LABS: Hematocrit 54.0 % (37-47); Hemoglobin 17.7 g/dL (12.0-15.0); Immature Granulocytes Count 0.030 X10^3/uL (0.0-0.0); Mean Corp Hgb Conc 32.8 g/dL (32-36); Mean Corpuscular Volume 91.1 fL (81-99); Mean Platelet Vol. 10.2 fl (6.2-12.0); NRBC Flagged by Analyzer 0 % (0-5); Platelet Count 377 K/mm3 (150-450); RBC Distribution Width CV 12.8 % (11.6-14.6); RBC Distribution Width SD 43.2 fl (35.1-43.9); Red Blood Count 5.93 M/mm3 (4.2-5.4); White Blood Count 12.1 K/mm3 (4.4-11.0)
[2024-11-04] MEDS: DEXAMETHASONE SODIUM PHOSPHATE 1 ML OPHTHALMIC (05:53)
[2024-11-04] MEDS: Senna/Docusate Sodium 1 Tablet 2 TABLET PO (08:21)
[2024-11-04] MEDS: Ensure Plus High Protein 120 ML LIQUID PO (08:22)
--- NOTE | 2024-11-04 09:07 | EKG12_ITS ---
Test Reason : REPEAT Blood Pressure : */* mmHG Vent. Rate : 88 BPM Atrial Rate : 88 BPM P-R Int : 136 ms QRS Dur : 84 ms QT Int : 396 ms P-R-T Axes : 40 21 120 degrees QTcB Int : 479 ms Normal sinus rhythm with sinus arrhythmia T wave abnormality, consider lateral ischemia Abnormal ECG Confirmed by MAE SCHWAB, STELLA ([id number]), assistant film editor STEPHANIE VILLA ([id number]) on 11/05/2024 7:47:25 AM Referred By: Confirmed By: STELLA WALL MD
--- NOTE | 2024-11-04 09:10 | NURSING ---
This nurse notified by therapy that pt c/o chest tightness. Dr Domingo made aware. Stat EKG ordered. Nitro ordered. Troponin series and 500ml NS Bolus ordered. BP 172/84 HR 87.
[2024-11-04] MEDS: Nitroglycerin (INPATIENT USE) 0.4 MG TAB.SUBL SL (09:40)
--- NOTE | 2024-11-04 09:48 | EKG12_ITS ---
Test Reason : cp Blood Pressure : */* mmHG Vent. Rate : 83 BPM Atrial Rate : 83 BPM P-R Int : 134 ms QRS Dur : 86 ms QT Int : 386 ms P-R-T Axes : 10 19 175 degrees QTcB Int : 453 ms Normal sinus rhythm with sinus arrhythmia ST & T wave abnormality, consider inferolateral ischemia Abnormal ECG Confirmed by MAE SCHWAB, STELLA ([id number]), assistant editor STEPHANIE VILLA ([id number]) on 11/05/2024 7:47:51 AM Referred By: Confirmed By: STELLA WALL MD
--- NOTE | 2024-11-04 10:32 | EX.DISCHREH ---
Providers Date of Admission: 11/01/24 Date of Discharge: 11/04/24 Primary Care Physician: Felicita Primary Care Phys Consultations 11/04/24 10:09 Consult: Cardiology Routine Consulting Provider: Ventura Avilez Reason for Consult: chest pain with abnormal EKG EMERGENT Consult: Yes MD Notified: Yes Date Notified: 11/04/24 Time Notified: 10:09 Method of Notification: Text 11/04/24 10:12 Consult: Oncology/Hematology Routine Consulting Provider: Shaun Del Angel Reason for Consult: polycythemia with CVA EMERGENT Consult: Yes MD Notified: Yes Date Notified: 11/04/24 Time Notified: 10:12 Method of Notification: Text Reason For Visit: STROKE Diagnosis Discharge Diagnosis (1) Chest pain: Status: Acute Code(s): R07.9 - Chest pain, unspecified Qualifiers: Chest pain type: chest pain due to myocardial ischemia Ischemic chest pain type: unstable angina pectoris Qualified Code(s): I20.0 - Unstable angina (2) Debility: Status: Acute Code(s): R53.81 - Other malaise (3) Stroke: Status: Acute Code(s): I63.9 - Cerebral infarction, unspecified Qualifiers: CVA mechanism: unspecified Qualified Code(s): I63.9 - Cerebral infarction, unspecified (4) Left hemiplegia: Status: Acute Code(s): G81.94 - Hemiplegia, unspecified affecting left nondominant side (5) Polycythemia: Status: Acute Code(s): D75.1 - Secondary polycythemia (6) Essential (primary) hypertension: Status: Chronic Code(s): I10 - Essential (primary) hypertension (7) Tobacco abuse: Status: Chronic Code(s): Z72.0 - Tobacco use Plan: Vaping every day (8) ADHD: Status: Chronic Code(s): F90.9 - Attention-deficit hyperactivity disorder, unspecified type Qualifiers: Attention deficit-hyperactivity disorder type: unspecified Qualified Code(s): F90.9 - Attention-deficit hyperactivity disorder, unspecified type Plan: Taking dextroamphetamine/amphetamine 30 mg twice daily chronically. (9) Allergic rhinitis: Status: Acute Code(s): J30.9 - Allergic rhinitis, unspecified Qualifiers: Allergic rhinitis seasonality: unspecified Allergic rhinitis trigger: unspecified Qualified Code(s): J30.9 - Allergic rhinitis, unspecified (10) Migraine headache: Status: Chronic Code(s): G43.909 - Migraine, unspecified, not intractable, without status migrainosus Qualifiers: Intractability: not intractable Migraine type: unspecified Status migrainosus presence: without status migrainosus Qualified Code(s): G43.909 - Migraine, unspecified, not intractable, without status migrainosus Medications at Discharge Home Medications loratadine 10 mg tablet (Claritin) 10 mg PO DAILY PRN PRN Allergies 01/25/18 dexamethasone sodium phosphate 0.1 % eye drops 1 drp ophthalmic (eye) 4X/DAY eye inflamattion 10/30/24 dextroamphetamine-amphetamine 30 mg tablet 1 tab PO BID inflammation 10/30/24 erythromycin 5 mg/gram (0.5 %) eye ointment 1 applic ophthalmic (eye) QHS eye 10/30/24 aspirin 81 mg chewable tablet 81 mg PO DAILYCM heart health #0 tabs 11/01/24 atorvastatin 80 mg tablet 80 mg PO QHS cholesterol #0 tabs 11/01/24 cyclobenzaprine 10 mg tablet 10 mg PO TID PRN PRN Muscle Spasm #0 tabs 11/01/24 hydrochlorothiazide 12.5 mg capsule 12.5 mg PO DAILY blood pressure #0 caps 11/01/24 lisinopril 10 mg tablet 10 mg PO DAILY blood pressure #0 tabs 11/01/24 Physical Exam Const Constitutional Narrative: She is drowsy and c/o feeling very tired. She arouses easily and is able to stay awake to converse with me. General Appearance: cooperative HEENT HEENT Narrative: Mucous membranes are very dry Eyes PERRL, EOMs intact bilaterally, conjunctivae normal and no scleral icterus Eyes Narrative: No discharge from the eyes Resp normal respiratory effort, normal air movement and clear to auscultation bilaterally Resp Narrative: Diminished in the bases, suspect secondary to poor inspiratory effort. Effort and Inspection: able to speak in complete sentences Cardio regular rate, regular rhythm, S1 normal heart sound, S2 normal heart sound, no murmurs, no rub and no gallops GI normal to inspection, nondistended, normoactive bowel sounds, soft to palpation and non-tender GI Narrative: No guarding with palpation. no CVA tenderness Narrative: She came to us with a Smith catheter in place secondary to urinary retention. Bladder / Kidney Exam: catheter in place Extremity no calf tenderness and no pedal edema Skin General Skin Exam: no breakdown Rashes: no rashes Neuro Neuro Narrative: She has weakness of the entire left face. Positive left facial droop, weakness of the periorbital muscles on the left and inability to furrow her brow. Shoulder shrug on the left is very weak. Mucous membranes are very dry. Tongue protrudes on the midline. Mild dysarthria. She has no movement in the left upper extremity or the left lower extremity. No extinction. No visual field cuts. Psych cooperative Psych Narrative: Flat affect. Anxious. Appearance: appropriate Activity / Motor Behavior: appropriate eye contact Weight / BMI Weight Weight: 163 lb 2.273 oz Body Mass Index (BMI) 28.0 ABG / Lab / Microbiology Data 11/04/24 05:27 11/03/24 06:38 Laboratory: Laboratory Results - last 24 hr 11/04/24 05:27: WBC 12.1 H, RBC 5.93 H, Hgb 17.7 H, Hct 54.0 H, MCV 91.1, MCH 29.8, MCHC 32.8, RDW Std Deviation 43.2, RDW Coeff of Maria Teresa 12.8, Plt Count 377, MPV 10.2, Immature Gran % (Auto) 0.200, Neut % (Auto) 65.7, Lymph % (Auto) 24.9, Norman % (Auto) 8.2, Eos % (Auto) 0.6, Baso % (Auto) 0.4, Absolute Neuts (auto) 7.9 H, Absolute Lymphs (auto) 3.01, Nucleated RBC % 0 11/04/24 09:40: Troponin T High Sens Cancelled Indicators for Scoring Admitted with or Primary Diagnosis of CVA/Stroke: Yes Hx of CVA/Stroke: No Modified Quinn Score MRS Score at time of Evaluation: 5-Severe disability NIHSS NIHSS 1a. Level of Consciousness: 1 - Not alert; Arousable by minor stimuli to obey, answer & respond 1b. LOC Questions: 1 - Answers ONE question correctly 1c. LOC Commands: 0 - Performs BOTH tasks correctly 2. Best Gaze: 0 - Normal 3. Visual: 0 - No visual loss 4. Facial Palsy: 3 - Complete paralysis of one or both sides 5a. Left Arm: 0 - No drift; arm holds 90 (or 45) degrees for full 10 seconds 5b. Right Arm: 0 - No drift; arm holds 90 (or 45) degrees for full 10 seconds 6a. Left Le - No movement 6b. Right Le - No drift; leg holds 30-degree position for full 5 seconds 7. Limb Ataxia: 0 - Absent (Cannot be tested due to no movement of the left side. She has no ataxia on the right side.) 8. Sensory: 1 - Ydss-nv-[id number] sensory loss; 9. Best Language: 0 - No aphasia; normal 10. Dysarthria: 1 = Lazo-gm-mxenibst dysarthria; 11. Extinction and Inattention: 0 - No abnormality Total: 11 Stroke Questions Stroke Team Activated: No D/C Instructions Diet Diet Order/Speech Therapy: INPATIENT Hospital Diet / Speech Therapy Order(s) 11/01/24 15:46 Diet: Cardiac - Heart Healthy Discharge order: Continue INPATIENT Hospital Diet / Speech Therapy Orders: Yes DC O2, CPAP, BIPAP Needs RN Home O2 qualification: No Data to Display Home O2 Discharge instructions: No Meaningful Use Info Meaningful Use Meaningful Use Diagnoses (Choose all that apply): Ischemic CVA CVA Therapy Assessed for PT,OT and/or ST?: Yes Ischemic Stroke Antithrombotic order at d/c?: Yes Dx of Atrial fib/flutter?: No Anticoagulant at discharge?: No Reason anticoagulant not ordered: Treatment not Indicated Statin Dosing Therapy Reference: STATIN DOSE THERAPY REFERENCE: * Patients > 75 years receive moderate or high dose statin therapy. * Patients 75 years or YOUNGER should receive HIGH intensity statin dose unless contraindicated. You will be required to document reason for non-treatment if statin daily dose does not meet guidelines. HIGH DOSE STATIN THERAPY DAILY Atorvastatin > than or = to 40 mg Rosuvastatin > than or = to 20 mg Amlodipine + Atorvastatin > than or = to 2.5/40 mg Ezetimibe + Simvastatin 10/80 mg Simvastatin 80mg Statins at discharge?: Yes If patient is 75 or younger, pt will be discharged on HIGH intensity statin.: Yes Primary Dx Acute Ischemic CVA?: Yes IV thrombolytic ordered during stay?: No Reason IV thrombolytic not ordered: Procedure not Indicated Discharge Plan Admission Admit Date/Time: 11/01/24 15:18 Attending Provider: Kaleb Horta Primary Care Provider: Care Physician,No Primary Consulting Providers: Lori Hay; Kanwal Rodríguez; Eulalia Carpio; Susan Salas; Maurilio Rivera; Pedro Hong; Law Eduardo; Nehemiah Horton; Pratima Arrieta; Chevy Gann; Abigail Guerrero; Ellis Jerome; Nghia Hdez; Jarred Garg NP; Danielle Ferro; Omer Naranjo; Shaun Del Angel; Luis Ravi Chi Discharge Orders/Prescriptions Prescriptions: No Action loratadine [Claritin] 10 MG tablet 10 mg PO DAILY PRN PRN (Reason: Allergies) dexamethasone sodium phosphate 0.1 % drops 1 drp ophthalmic (eye) 4X/DAY dextroamphetamine-amphetamine 30 mg tablet 1 tab PO BID erythromycin 5 mg/gram (0.5 %) ointment 1 applic ophthalmic (eye) QHS cyclobenzaprine 10 mg Tablet 10 mg PO TID PRN PRN (Reason: Muscle Spasm) Qty: 0 0RF atorvastatin 80 mg Tablet 80 mg PO QHS Qty: 0 0RF lisinopril 10 mg Tablet 10 mg PO DAILY Qty: 0 0RF hydrochlorothiazide 12.5 mg Capsule 12.5 mg PO DAILY Qty: 0 0RF aspirin 81 mg Tablet,Chewable 81 mg PO DAILYCM Qty: 0 0RF Referrals / Follow Up: Care Physician,No Primary [Primary Care Provider] - Charges/Coding Visit Charges Inpatient E&M: 18109 Disch Hosp >30min Hospital Course RU Procedures Transesophageal Echo Summary of Care Provided Minutes Spent on Discharge: 55 Hospital Course: Patient is a 39-year-old female who presented to the emergency department at [facility] on 10/30/2024 complaining of left arm weakness, left leg weakness and slurred speech. Hemoglobin at admission was 18.5 and lab was not consistent with dehydration. Urine drug screen at admission was positive for amphetamine and cannabinoids. CT brain showed a left frontal lacunar infarct. CTA of the head and neck was negative for large vessel occlusion, high-grade stenosis and aneurysm. She was not a candidate for TNK due to time. She was admitted to the hospitalist service. MRI showed a large area of restricted diffusion in the right frontal and superior parietal precentral cortex and superior periventricular region measuring 9 cm x 3 cm x 4.6 cm with associated increased T2 signal and decreased T1 signal components. This was consistent with a subacute infarct. There was a 0.6 cm focus of restricted diffusion in the left superior precentral cortex which appeared acute. There was an old 0.8 cm lacunar infarct in the deep white matter on the left. Transesophageal echo showed normal left ventricular size with an ejection fraction of 60%. Bubble contrast study was negative for sompt-cy-oyim interatrial shunt and no thrombus was detected in the left atrial appendage. She was seen by neurology and they recommended aspirin 81 mg daily and atorvastatin 80 mg daily. She was instructed to stop vaping. Blood Pressures have been quite elevated at times and she is quite anxious. She had been taking dextroamphetamine/amphetamine 30 mg twice daily for ADD. She was transferred to the acute inpt rehab unit at [facility] on 11/01/24 for 3 hours of therapy daily to restore function, independence at or near her level prior to admission to the hospital. On 11/04/24 she c/o chest tightness associated with SOB. An EKG was checked and she had inferolateral ST and T wave changes that were new when compared to an EKG done at admission to the hospital. She was given a SL NTG and the pain resolved. Repeat EKG after NTG continued to show inferolateral ST and T wave changes. HGB on 11/03/24 was 91.2 but on 11/04 it was 17.7 following hydration. She was given a 500 cc bolus of NS and the IV rate was increased to 125 cc/hr. hemoglobin at admission to the hospital was 18.5 with a BUN of 13 and a creatinine of 0.8. The first troponin is elevated at 26. She was seen by Dr. Eduardo from cardiology who recommended adding metoprolol 25 mg p.o. twice daily. She is going to be transferred to the acute side of the hospital to the progressive care unit for NSTEMI with unstable angina. Dr. Mata is the admitting hospitalist. Dr. Del Angel was consulted for polycythemia. I ordered a Erythropoietin level prior to DC from rehab. She denies any hx of CP, VTE. She has migraines. Amphetamines have been discontinued and also HCTZ. I notified her aunt, Gloria Meehna, who is the primary contact listed of the change in her condition and transfer to PCU. I answered her questions.
--- NOTE | 2024-11-04 10:34 | PCM.HP.STD ---
HPI - General General Date of Admission: 11/01/24 Chief Complaint: Here for 3 hours daily rehabilitation. HPI Narrative JAYDA OSHEA, is a 39 F who presents [facility] Medical History HTN (hypertension) ADHD Migraine Strain of great toe, right Contusion of right great toe without damage to nail Home Medications ?Medication ?Instructions ?Recorded ?Last Taken ?Type loratadine 10 mg tablet (Claritin) 10 mg PO DAILY PRN PRN Allergies 01/25/18 Unknown History dexamethasone sodium phosphate 0.1 1 drp ophthalmic (eye) 4X/DAY eye 10/30/24 Unknown History % eye drops inflamattion dextroamphetamine-amphetamine 30 1 tab PO BID inflammation 10/30/24 Unknown History mg tablet erythromycin 5 mg/gram (0.5 %) eye 1 applic ophthalmic (eye) QHS eye 10/30/24 10/31/24 History ointment aspirin 81 mg chewable tablet 81 mg PO DAILYCM heart health #0 11/01/24 11/01/24 Rx tabs atorvastatin 80 mg tablet 80 mg PO QHS cholesterol #0 tabs 11/01/24 10/31/24 Rx cyclobenzaprine 10 mg tablet 10 mg PO TID PRN PRN Muscle Spasm 11/01/24 11/01/24 13:15 Rx #0 tabs hydrochlorothiazide 12.5 mg capsule 12.5 mg PO DAILY blood pressure #0 11/01/24 Unknown Rx caps lisinopril 10 mg tablet 10 mg PO DAILY blood pressure #0 11/01/24 11/01/24 Rx tabs Allergy/AdvReac Type Severity Reaction Status Date / Time naproxen Allergy Hives Verified 10/30/24 21:22 Family History Mother Hypertension Depression Anxiety PTSD (post-traumatic stress disorder) Surgical History History of section Social History household members: children and other details: Lives with son. Smoking Status: Current every day smoker tobacco type: e-cigarettes alcohol intake: current alcohol intake frequency: 0-2 drinks per day Alcohol type: wine substance use type: does not use Vital Signs Vital Signs Vital Signs: 11/03/24 13:46 11/03/24 14:00 11/03/24 18:00 Temperature 96.5 F L Temperature Source Temporal Pulse Rate 89 89 89 Pulse Strength Respiratory Rate 17 Blood Pressure 154/91 H 159/91 H 128/89 H Blood Pressure Mean 113 102 Blood Pressure Source Monitor Monitor Blood Pressure Position Semi-Fowlers Semi-Fowlers Blood Pressure Location Right Arm Right Arm Pulse Ox 94 Oxygen Delivery Method Room Air 11/03/24 20:20 11/03/24 21:28 11/03/24 21:58 Temperature 97 F L Temperature Source Temporal Pulse Rate 91 91 Pulse Strength Normal (2+) Respiratory Rate 16 Blood Pressure 156/94 H 156/94 H Blood Pressure Mean 114 Blood Pressure Source Monitor Blood Pressure Position Semi-Fowlers Blood Pressure Location Right Arm Pulse Ox 94 Oxygen Delivery Method Room Air 11/04/24 05:44 11/04/24 05:50 11/04/24 09:25 Temperature 97 F L Temperature Source Oral Pulse Rate 83 83 87 Pulse Strength Respiratory Rate 14 16 Blood Pressure 144/90 H 144/90 H 172/84 H Blood Pressure Mean 108 113 Blood Pressure Source Monitor Monitor Blood Pressure Position Semi-Fowlers Semi-Fowlers Blood Pressure Location Right Arm Right Arm Pulse Ox 95 94 Oxygen Delivery Method Room Air Room Air 11/04/24 09:40 11/04/24 09:50 11/04/24 10:00 Temperature Temperature Source Pulse Rate 87 76 Pulse Strength Normal (2+) Respiratory Rate Blood Pressure 172/84 H 122/79 H Blood Pressure Mean 93 Blood Pressure Source Monitor Blood Pressure Position Semi-Fowlers Blood Pressure Location Right Arm Pulse Ox Oxygen Delivery Method Weight Weight: 74 kg Body Mass Index (BMI) 28.0 Results Lab / Micro Data 11/04/24 05:27 11/03/24 06:38 Labs: Laboratory Results - last 24 hr 11/04/24 05:27: WBC 12.1 H, RBC 5.93 H, Hgb 17.7 H, Hct 54.0 H, MCV 91.1, MCH 29.8, MCHC 32.8, RDW Std Deviation 43.2, RDW Coeff of Maria Teresa 12.8, Plt Count 377, MPV 10.2, Immature Gran % (Auto) 0.200, Neut % (Auto) 65.7, Lymph % (Auto) 24.9, Lander % (Auto) 8.2, Eos % (Auto) 0.6, Baso % (Auto) 0.4, Absolute Neuts (auto) 7.9 H, Absolute Lymphs (auto) 3.01, Nucleated RBC % 0 11/04/24 09:40: Troponin T High Sens Cancelled
[2024-11-04 10:52] LABS: Troponin T High Sensitivity 26 ng/L (<=14)
--- NOTE | 2024-11-04 11:34 | NURSING ---
discharged to PCU report called to [place]
--- NOTE | 2024-11-04 11:41 | PCM.CONS.C ---
Assessment & Plan Assessment/Plan (1) Chest pain: QUALIFIERS: Chest pain type: chest pain due to myocardial ischemia Ischemic chest pain type: unstable angina pectoris Qualified Code(s): I20.0 - Unstable angina PLAN: She presents with chest discomfort etiology of which is unclear at this particular time. My recommendation is to proceed with a cardiac catheterization. Depending on the results further recommendations will be made. (2) Essential (primary) hypertension: PLAN: She does have a history of hypertension which does not appear to be very well-controlled. Will continue to try and better control this. I would recommend not using hydrochlorothiazide. An PALOMO inhibitor and a beta-vanita will be helpful. A calcium channel vanita should also be added. (3) Ischemic cerebrovascular accident (CVA): PLAN: She does have evidence of previous cerebrovascular accident. We should attempt to keep her blood pressure 130/80. HPI Consult Data Date of Consult: 11/04/24 HPI Narrative HPI Narrative: JAYDA OSHEA, is a 39 F who presented with a cerebrovascular accident was initially admitted to the progressive care unit. She had presented with left hemiparesis and a history of severe hypertension. Her blood pressure was approximately 220 systolic over 180 she had been on clonidine and was evaluated and echocardiogram demonstrated preserved ejection fraction. Cardiology was recommended to do a transesophageal echocardiogram which was unremarkable with no evidence of patent foramen ovale. The patient was treated with hypertensive therapy and had been on her Adderall was admitted to the rehabilitation unit and today started complaining of chest discomfort there were nonspecific ST changes and cardiology was called for further evaluation and management. There was a concern as to her polycythemic status may be contributing to coronary ischemia and her her cerebrovascular accident. At the time she was seen she had been complaining of vague chest discomfort EKG demonstrated sinus rhythm with lateral T wave inversions. [facility], LAT[facility] Medical History HTN (hypertension) ADHD Migraine Strain of great toe, right Contusion of right great toe without damage to nail Home Medications ?Medication ?Instructions ?Recorded ?Last Taken ?Type loratadine 10 mg tablet (Claritin) 10 mg PO DAILY PRN PRN Allergies 01/25/18 Unknown History dexamethasone sodium phosphate 0.1 1 drp ophthalmic (eye) 4X/DAY eye 10/30/24 Unknown History % eye drops inflamattion dextroamphetamine-amphetamine 30 1 tab PO BID inflammation 10/30/24 Unknown History mg tablet erythromycin 5 mg/gram (0.5 %) eye 1 applic ophthalmic (eye) QHS eye 10/30/24 10/31/24 History ointment aspirin 81 mg chewable tablet 81 mg PO DAILYCM heart health #0 11/01/24 11/01/24 Rx tabs atorvastatin 80 mg tablet 80 mg PO QHS cholesterol #0 tabs 11/01/24 10/31/24 Rx cyclobenzaprine 10 mg tablet 10 mg PO TID PRN PRN Muscle Spasm 11/01/24 11/01/24 13:15 Rx #0 tabs hydrochlorothiazide 12.5 mg capsule 12.5 mg PO DAILY blood pressure #0 11/01/24 Unknown Rx caps lisinopril 10 mg tablet 10 mg PO DAILY blood pressure #0 11/01/24 11/01/24 Rx tabs Allergy/AdvReac Type Severity Reaction Status Date / Time naproxen Allergy Hives Verified 10/30/24 21:22 Family History Mother Hypertension Depression Anxiety PTSD (post-traumatic stress disorder) Surgical History History of section Social History household members: children and other details: Lives with son. Smoking Status: Current every day smoker tobacco type: e-cigarettes alcohol intake: current alcohol intake frequency: 0-2 drinks per day Alcohol type: wine substance use type: does not use Risk Stratification Risk Stratification Applicable: Yes Age >/= 65: No >/= 3 CAD Risk Factors (HTN, HLD, DM, family hx of CAD, or current smoker): Yes Aspirin Use in the Past 7 Days: Yes Severe Angina (>/= episodes in 24 hours): No EKG ST Changes >/= 0.5mm: No Positive Cardiac Marker: No RICKEY Risk Stratification Score: 2 RICKEY % Risk: 8% Risk Objective Data Vital Signs: Vital Signs Temp Pulse Resp BP Pulse Ox O2 Del Method 97.8 F 76 16 172/84 H 94 Room Air 11/04/24 11:08 11/04/24 11:20 11/04/24 11:08 11/04/24 11:08 11/04/24 11:08 11/04/24 11:08 Oxygen Delivery Method Room Air Weight: 163 lb 2.273 oz Body Mass Index (BMI) 28.0 Intake & Output: Intake and Output for Last 24 Hours 11/02/24 11/03/24 11/04/24 23:59 23:59 23:59 Intake Total 300 / 300 1160 / 1160 2107. / 2107.08 Output Total 750 / 750 450 / 450 Balance 300 / 300 410 / 410 1657.08 / 1657.08 Lab / Micro Data 11/04/24 05:27 11/03/24 06:38 Labs: Laboratory Results - last 24 hr 11/04/24 05:27: WBC 12.1 H, RBC 5.93 H, Hgb 17.7 H, Hct 54.0 H, MCV 91.1, MCH 29.8, MCHC 32.8, RDW Std Deviation 43.2, RDW Coeff of Maria Teresa 12.8, Plt Count 377, MPV 10.2, Immature Gran % (Auto) 0.200, Neut % (Auto) 65.7, Lymph % (Auto) 24.9, Emmet % (Auto) 8.2, Eos % (Auto) 0.6, Baso % (Auto) 0.4, Absolute Neuts (auto) 7.9 H, Absolute Lymphs (auto) 3.01, Nucleated RBC % 0 11/04/24 09:40: Troponin T High Sens Cancelled 11/04/24 10:15: Troponin T High Sens 26 H D Cardiology Labs/Tests 11/04/24 05:27: WBC 12.1 H, RBC 5.93 H, Hgb 17.7 H, Hct 54.0 H, MCV 91.1, MCH 29.8, MCHC 32.8, Plt Count 377, MPV 10.2, Immature Gran % (Auto) 0.200, Neut % (Auto) 65.7, Lymph % (Auto) 24.9, Emmet % (Auto) 8.2, Eos % (Auto) 0.6, Baso % (Auto) 0.4, Absolute Neuts (auto) 7.9 H, Nucleated RBC % 0 Rhythm: EKG: ECHO: Stress Test: Cardiac Cath: PCI: CT Surgery: Holter monitor: EPS: PPM: CXR: Chest CT Scan:
--- NOTE | 2024-11-04 17:00 | CASEMGMT ---
Addendum entered by Tamra Romero 11/05/24 11:03: KATJA received return call from Aaron. KATJA educated to Aaron that he is the primary parent, and he is to assume all decision making with Ramiro. Aaron stated that he does have [employer] on Ramiro's phone to ensure the location of Ramiro. KATJA provided active listening to Aaron as he shared further history on the family dynamics. KATJA explained either the pt, pt's family or a SW will be in contact with Aaron if involvement is permitted. Aaron expressed understanding. Addendum entered by Tamra Romero 11/05/24 09:33: KATJA provided verbal hand-off to U SW on below information. Original Note: Social Work SW received VM from a man identifying as Aaron Warner requesting a return call for further assistance with pt's son and legal guardianship. SW returned call and spoke with Aaron ([phone]). Aaron explained he and pt have shared custody of their 16 yo son, Ramiro Warner 06/03/2008. Aaron stated his son texted him after the son found pt at home, but has not received an update on pt's condition since. Aaron is inquiring about pt's ability to make decisions, as he is seeking direction on how to proceed with caring for Ramiro. Aaron states he has been in contact with pt's mother and grandmother in regards to son's care, but is still wanting further direction. Aaron provided some examples of Ramiro staying at a cousin's house one night or asking for friends to come over pt's house, and Aaron was unsure if pt would allow those things to happen. Aaron stated Ramiro informed him that he was enrolled in the career center for the upcoming school year and Aaron stated he was unaware of this previously, citing the lack of communication with son and pt. 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 Aaron inquired further about pt's condition and timeframe for admission. Aaron acknowledged HIPPA but is looking for further assistance. SW to gather further information on how to proceed and follow up with Aaron with outcome. Aaron appreciative. - KATJA collaborated with Galvanometer Assembler of CM on situation. SW was unable to meet with pt for initial assessment as pt was transferred to PCU. Galvanometer Assembler concluded for hand-off be given to PCU SW, has PCU SW meet with pt and assess cognitive abilities; inform pt of Aaron's inquires, and request for either pt or pt's mother to contact Aaron to update on pt's condition. In the meantime, this worker will follow up with Aaron and explain Aaron is now the primary parent and will care for Ramiro at this home, whereabouts and decisions regarding Ramiro. - SW left VM with Aaron requesting call back at 1700. Will await return call. Tamra Romero PEST CONTROL OPERATOR TUBE BACKER
--- NOTE | 2024-11-11 09:47 | CL.D_ITS ---
Patient Name: JAYDA OSHEA Study Date: 11/04/2024 Performing: Law Eduardo MD Ht: 64 inches 162.56 cm : 1985 Wt: 169.6 lbs 76.84 kg Age: 39 Gender: female BSA: 1.82 PROCEDURE(S) PERFORMED [id number])LHC/COR/LV CLINICAL PROFILE AND INDICATIONS Indications: Suspected CAD Heart Failure: None Stress/Imaging Stress/Image Study Performed: No CAD Presentations: Symptom unlikely to be ischemic. CONCLUSIONS Normal coronary arteries Normal LV size, wall motion,and systolic function RECOMMENDATIONS Medical therapy DESCRIPTION OF PROCEDURE The patient arrived to the procedure lab. The risks and benefits of the procedure as well as a full description of our services here and current unavailability of surgical backup were fully explained to the patient and/or their significant other prior to the catheterization. The Timeout was completed, verifying the correct patient and procedure. The patient's procedural site was prepped and draped in the usual fashion. Local anesthetic was given subcutaneously to right radial region with Lidocaine 2%. Using a modified Seldinger technique, arterial access was obtained via the right radial artery, a 6Fr sheath was inserted. Left Coronary Artery selective angiography was performed in multiple views using a 5 Fr. 4.0 Niles catheter. Right Coronary Artery selective angiography was then performed in multiple views using a 5 Fr. 4.0 Niles catheter. Left Ventriculography was performed in KRISHNA projection using a 5 Fr. Pigtail catheter. LV to AO pullback pressures were then recorded.The arterial sheath was pulled and a TR Band was applied for hemostasis CORONARY ANGIOGRAPHY DOMINANCE: Right Dominant LEFT HEART ASSESSMENT Left Ventricular Ejection Fraction: by LV Gram 65 % Normal LV wall motion Normal Left Ventricular systolic function LEFT MAIN: Angiographically normal LEFT ANTERIOR DESCENDING ARTERY: Angiographically normal CIRCUMFLEX ARTERY: Angiographically normal RIGHT CORONARY ARTERY: Angiographically normal COMPLICATIONS No Complications PROCEDURE MEDICATIONS Fentanyl 50 mcg IV Versed 1 mg IV Heparin given IA 11/04/2024 14:53:58 Verapamil 2.5mg, Ntg 100mcgs, 3000 units of Heparin given IA 11/04/2024 14:53:58 SUMMARY OF HEMODYNAMIC DATA Time AIR REST ECG 14:33:11 AO 125/86 (105) SA 14:55:59 LV 136/9, 15 15:02:06 LV 131/8, 13 15:02:15 LV 122/9, 14 15:02:59 LVp 126/9, 15 15:03:03 AOp 135/78 (101) 15:03:10 Signed By Law Eduardo MD On 11/04/2024 16:19:39 Law Eduardo MD
== END 2024-11-04 11:35 | disposition short-term general hospital (02) | DRG 56 ==
PROVIDERS: Admitting Provider Family Medicine Geriatric Medicine; Visit Provider Internal Medicine
DX: I69.354 Hemiplegia and hemiparesis following cerebral infarction affecting left non-dominant side (principal); I21.4 Non-ST elevation (NSTEMI) myocardial infarction; I20.0 Unstable angina; I69.322 Dysarthria following cerebral infarction; I10 Essential (primary) hypertension; I69.398 Other sequelae of cerebral infarction; J30.9 Allergic rhinitis, unspecified; E78.5 Hyperlipidemia, unspecified; G43.909 Migraine, unspecified, not intractable, without status migrainosus; D75.1 Secondary polycythemia; H10.9 Unspecified conjunctivitis; F17.290 Nicotine dependence, other tobacco product, uncomplicated; I69.392 Facial weakness following cerebral infarction; F90.9 Attention-deficit hyperactivity disorder, unspecified type; Z79.899 Other long term (current) drug therapy; Z79.82 Long term (current) use of aspirin
CPT/HCPCS: 36415; 80048; 80053; 81001; 82668; 83735; 84100; 84484; 85025; 92523; 93005; 93458; 94668; 97162; 97166; 97530; 97802; 99152; 99153; Q9967; A4216; C1769; C1894

== ENCOUNTER 2024-11-04 13:09 | Observation (INO) | payer OTHER, SELFPAY ==
[2024-11-04] VITALS (10 sets, daily range): BP systolic 129–155; BP diastolic 77–91; PULSE 65–99; RESP 11–20; TEMP 35.9–36.5; O2SAT 95–100; BMI 29.0
[2024-11-04 12:38] LABS: Internal QC Validated? YES +Cl - CLEAR BKGD; Pregnancy, Urine Negative Negative; Record Kit Lot#,Urine Preg 0000962302
[2024-11-04 13:04] LABS: Partial Thromboplast Time 27.0 Seconds (24.1-36.2)
--- NOTE | 2024-11-04 13:09 | HP.PCM.HOS_ITS ---
HPI - General General Date of Admission: 11/04/24 Date of Service: 11/04/24 Chief Complaint: Chest pain HPI Narrative JAYDA OSHEA, is a 39 F who presented from [facility] rehab unit for chest pain. Patient was hospitalized here from 10/30-11/01 for acute ischemic CVA with left-sided deficits. MRI brain showed a large area of infarcted territory in the right frontal and superior parietal areas. Primary risk factors were uncontrolled hypertension and smoking. Both TTE and SUNDAY were unremarkable. She was stable for discharge to acute rehab on 11/01. This morning patient was working with physical therapy and developed chest tightness with associated shortness of breath. EKG was obtained and showed inferolateral ST and T wave changes that were new compared to prior EKG. She was given a dose of submental nitro and the pain resolved, but repeat EKG continued to show ST and T wave changes. Case was discussed with cardiology who recommended admission to PCU for further evaluation. Hospitalist was then contacted for admission. I saw the patient at bedside in the rehab unit. She was fatigued appearing but otherwise sitting back comfortably in bed and in no acute distress. She denied any chest pain currently. Denies any other acute concerns at this time. Will be admitted to the PCU for further management. [facility] Medical History HTN (hypertension) ADHD Migraine Strain of great toe, right Contusion of right great toe without damage to nail Home Medications ?Medication ?Instructions ?Recorded ?Last Taken ?Type loratadine 10 mg tablet (Claritin) 10 mg PO DAILY PRN PRN Allergies 01/25/18 Unknown History dexamethasone sodium phosphate 0.1 1 drp ophthalmic (e ye) 4X/DAY eye 10/30/24 Unknown History % eye drops inflamattion dextroamphetamine-amphetamine 30 1 tab PO BID inflamma tion 10/30/24 Unknown History mg tablet erythromycin 5 mg/gram (0.5 %) eye 1 applic ophthalmic (eye) QHS eye 10/30/24 10/31/24 History ointment aspirin 81 mg chewable tablet 81 mg PO DAILYCM heart h ealth #0 11/01/24 11/01/24 Rx tabs atorvastatin 80 mg tablet 80 mg PO QHS cholesterol #0 tabs 11/01/24 10/31/24 Rx cyclobenzaprine 10 mg tablet 10 mg PO TID PRN PRN Musc le Spasm 11/01/24 11/01/24 13:15 Rx #0 tabs hydrochlorothiazide 12.5 mg capsule 12.5 mg PO DAILY b lood pressure #0 11/01/24 Unknown Rx caps lisinopril 10 mg tablet 10 mg PO DAILY blood pressur e #0 11/01/24 11/01/24 Rx tabs Allergy/AdvReac Type Severity Reaction Status Date / Time naproxen Allergy Hives Verified 10/30/24 21:22 Family History Mother Hypertension Depression Anxiety PTSD (post-traumatic stress disorder) Surgical History History of section Social History household members: children and other details: Lives with son. Smoking Status: Current every day smoker tobacco type: e-cigarettes alcohol intake: current alcohol intake frequency: 0-2 drinks per day Alcohol type: wine substance use type: does not use ROS Constitutional Constitutional: Reports fatigue and weakness; Denies chills or fever(s) Eyes Eyes: Denies change in vision Cardiovascular Cardiovascular: Denies chest pain Respiratory/Chest Respiratory/Chest: Denies shortness of breath at rest Gastrointestinal Gastrointestinal: Denies abdominal pain Vital Signs Vital Signs Vital Signs: Weight Weight: 76.839 kg Body Mass Index (BMI) 29.0 Physical Exam Const alert, oriented x3, no apparent distress and average body habitus Constitutional Narrative: Young middle-aged female, fatigued appearing, neurologic deficits as below, otherwise sitting back comfortably in bed, answering questions with short appropriate responses, in no acute distress. General Appearance: cooperative and comfortable HEENT normocephalic, head/scalp atraumatic, hearing grossly normal bilaterally, nasal mucous membranes and turbinates normal and moist oral mucous membranes Eyes PERRL, EOMs intact bilaterally and conjunctivae normal Neck full ROM Chest inspection of chest normal Resp normal respiratory effort, normal air movement, no use of accessory muscles and clear to auscultation bilaterally Cardio regular rate, regular rhythm, no murmurs and peripheral pulses 2+ throughout GI normal to inspection, nondistended, normoactive bowel sounds, soft to palpation, non-tender and non-distended Extremity normal to inspection and no pedal edema Skin no rashes or lesions noted Neuro Neuro Narrative: Weakness of entire left face. Positive left facial droop. Weakness of periorbital muscles on left and inability to furrow her brow. Shoulder shrug on left is very weak. Mild dysarthria noted. No movement in left upper or left lower extremities. Psych mental status grossly normal Results Lab / Micro Data Labs: Laboratory Results - last 24 hr 11/04/24 12:30: APTT 27.0, Urine Test Negative Assessment & Plan Assessment/Plan (1) Chest pain: QUALIFIERS: Chest pain type: chest pain due to myocardial ischemia Ischemic chest pain type: unstable angina pectoris Qualified Code(s): I20.0 - Unstable angina PLAN: Plan Patient is a 39-year-old female who presented from the [facility] rehab unit for chest pain. 1. Chest pain, ACS ruled out ? Admit under inpatient status to PCU. Cardiology following. Had chest pain with exertion in rehab unit on 11/04. EKG showed inferolateral ST and T wave changes. Pain improved with 1 dose of nitro. Troponin trend 26 > 31. Left heart cath with cardiology on 11/04 with normal coronary arteries and normal heart function. Unclear etiology for the symptoms; suspected they may be secondary to erythrocytosis as noted below. No further cardiac workup needed at this time. 2. Recent CVA with residual left-sided deficits ? PT/OT/case management following. Hospitalized from 10/30-11/01 for acute CVA with residual left-sided deficits. Discharged to rehab unit on 11/01. Suspect patient will be okay to return to rehab unit on this discharge as well. Continue home aspirin and statin. 3. Erythrocytosis with concern for polycythemia vera ? Heme-onc consulted. Hemoglobin has been high in the 17-19 range since 10/30 along with elevated hematocrit. Given the events above, have concern for symptomatic polycythemia vera. Erythropoietin level pending. Appreciate further heme-onc recommendations. 4. Hypertension ? Mildly hypertensive to the 130s to 140s systolic on admit. Continue home lisinopril and hydrochlorothiazide. 5. Tobacco dependence ? Has been without tobacco use since 10/30. No need for nicotine replacement therapy at this time. Discussed cessation on discharge. 6. ADHD ? Hold home Adderall as this could be contributing and contributing factor to her chest pain as well as recent CVA as above. DVT prophylaxis: Lovenox CODE STATUS: Full code, verified Expected disposition: TBD Total clinical time spent by myself addressing the patient's medical issues, reviewing all the data, and collaborating with patient's care team: 75 minutes. Charges/Coding Visit Charges Inpatient E&M: 78295 Init Hosp L3
[2024-11-04 13:46] LABS: Troponin T High Sens 2 HR 31 ng/L (<=14)
--- NOTE | 2024-11-04 15:06 | SUR.HOLD ---
per Dr. Eduardo no need to continue Trop series patient in heart cath at this time
--- NOTE | 2024-11-04 15:37 | CHAPLAIN ---
Type of Pastoral Visit ___ Initial Visit _x__ Follow-up Visit ___ On-call Visit ___ General Patient Visit ___ Spiritual Assessment ___ Family Conference ___ Bereavement ___ Rapid Response ___ Code Blue ___ Other (describe below) Pastoral Care Referral From ___ Patient _x__ Family ___ Nurse ___ Physician ___ Electrical Test Technician ___ Brew House Supervisor ___ Other (describe below) Sacrament/Intervention ___ Active listening ___ Anointing ___ Evangelical ___ Bereavement ___ Communion ___ Yadira exploration ___ ___ Life review _x__ Prayer ___ Reconciliation ___ Sacrament of Sick _x__ Supportive presence ___ Wedding ___ Other (describe below) Pastoral Comments a family member saw this childcare center director in the hallway and asked for prayers for this patient who will be having a heart cath in an hour or so; entered patient room and she is resting quietly in bed with a friend at bedside; pt is offered support and prayers which she accepts; pt does not engage in conversation but gives a short reply to a question and then closes her eyes; supportive words given
--- NOTE | 2024-11-04 17:46 | ONC.CONSULT ---
Assessment & Plan Assessment/Plan (1) Polycythemia: Status: Acute Code(s): D75.1 - Secondary polycythemia Plan: JAK2 [id number] is negative, erythropoietin level is pending. Chest x-ray is negative. Since patient has a CVA, will suggest phlebotomy to keep hematocrit around 45. Will also suggest obtaining ultrasound of the abdomen to rule out renal and hepatic tumors. Will follow-up with further suggestion when reports of testing become available. (2) Ischemic cerebrovascular accident (CVA): Status: Acute Code(s): I63.9 - Cerebral infarction, unspecified Plan: To continue supportive care. HPI Consult Data Date of Service:: 11/04/24 PCP / Referring Provider: No Primary Care Phys Attending: Dr. Kaleb Horta DO Chief Complaint Chief Complaint: Asked to see patient with polycythemia and CVA. History of Present Illness History of Present Illness: 39-year-old woman presented to the hospital with left-sided weakness and acute ischemic CVA of the right brain.. MRI of the brain on 10/31/2024 showed large infarct in the right frontal and superior parietal areas of the brain. She was found to have polycythemia. Advanced Directives Do you have a Healthcare Power of Mechanical Laboratory Technician?: No [facility] Medical History HTN (hypertension) ADHD Migraine Strain of great toe, right Contusion of right great toe without damage to nail Home Medications ?Medication ?Instructions ?Recorded ?Last Taken ?Type loratadine 10 mg tablet (Claritin) 10 mg PO DAILY PRN PRN Allergies 01/25/18 Unknown History dexamethasone sodium phosphate 0.1 1 drp ophthalmic (eye) 4X/DAY eye 10/30/24 Unknown History % eye drops inflamattion dextroamphetamine-amphetamine 30 1 tab PO BID inflammation 10/30/24 Unknown History mg tablet erythromycin 5 mg/gram (0.5 %) eye 1 applic ophthalmic (eye) QHS eye 10/30/24 10/31/24 History ointment aspirin 81 mg chewable tablet 81 mg PO DAILYCM heart health #0 11/01/24 11/01/24 Rx tabs atorvastatin 80 mg tablet 80 mg PO QHS cholesterol #0 tabs 11/01/24 10/31/24 Rx cyclobenzaprine 10 mg tablet 10 mg PO TID PRN PRN Muscle Spasm 11/01/24 11/01/24 13:15 Rx #0 tabs hydrochlorothiazide 12.5 mg capsule 12.5 mg PO DAILY blood pressure #0 11/01/24 Unknown Rx caps lisinopril 10 mg tablet 10 mg PO DAILY blood pressure #0 11/01/24 11/01/24 Rx tabs Allergy/AdvReac Type Severity Reaction Status Date / Time naproxen Allergy Hives Verified 10/30/24 21:22 Family History Mother Hypertension Depression Anxiety PTSD (post-traumatic stress disorder) Surgical History History of section Social History household members: children and other details: Lives with son. Smoking Status: Current every day smoker tobacco type: e-cigarettes alcohol intake: current alcohol intake frequency: 0-2 drinks per day Alcohol type: wine substance use type: does not use Physical Exam Const alert, oriented x3 and no apparent distress HEENT normocephalic Eyes EOMs intact bilaterally, conjunctivae normal and no scleral icterus Neck supple Lymph Lymphatic: no lymphadenopathy noted Resp normal respiratory effort, no use of accessory muscles and clear to auscultation bilaterally Cardio regular rate, regular rhythm, S1 normal heart sound, S2 normal heart sound and no murmurs GI normal to inspection, nondistended, normoactive bowel sounds Extremity no clubbing, cyanosis or edema Skin no rashes or lesions noted Neuro Neuro Narrative: +Hemiplegia L upper and Lower extremities. Psych mental status grossly normal and cooperative Vital Signs Temperature 97.7 F L 11/04/24 15:30 Temperature Source Temporal 11/04/24 15:30 Pulse Rate 99 11/04/24 17:00 Respiratory Rate 14 11/04/24 16:30 Respiratory Effort Normal, Non-Labored 11/04/24 14:00 Respiratory Depth Normal 11/04/24 14:00 Respiratory Pattern Normal 11/04/24 14:00 Blood Pressure 155/91 H 11/04/24 17:00 Blood Pressure Mean 112 11/04/24 17:00 Pulse Ox 97 11/04/24 17:00 Oxygen Delivery Method Room Air 11/04/24 17:00 Laboratory Results - last 24 hr 11/04/24 12:30: APTT 27.0, Troponin T Hi Sens 2 Hr 31 H, Urine Test Negative
[2024-11-04] MEDS: prednisoLONE eye drops (5 mL) 1 DROP OPTH.BTL 1 DRP OPHTHALMIC ×2 (18:58→22:57)
[2024-11-04] MEDS: Erythromycin Base 1 OPTH.TUBE 1 APPLIC OPHTHALMIC (21:55)
--- OUTSIDE RECORDS SUMMARY | 2024-11-04 22:10 | XMS RPT_ITS | CCD ---
Author Organization [facility] Care Team Providers Care Chemical Inspector Name Role Phone Unavailable Primary Care Provider Unavailabl e Care Physician, No Primary Primary Care Provider Unavailable Care Physician, No Primary Referring Provider Un available Yefri Mancera Attending Provider Yefri Mancera Referring Provider [phone] Dr. Domenico Silva DO Emergency Provider Haney DO, Dr. Cerna Admit Provider Unavail able Dr. Nehemiah Haney DO Attending Provider Unav ailable Haney DO, Dr. Cerna Other Provider Unavail able David Gale MD Other Provider Unavailable Dr. Ehsan Uriarte MD Other Provider [phone] Sheeba Rodriguez MD Other Provider Unavailable Dr. Lydia Orantes DO Other Provider [phone] Dr. Renee Cleveland MD Other Provider [phone] Kyle Ghosh MD Other Provider Dr. Leidy Mckinnon MD Other Provider [phone] Reagan White MD Other Provider Dr. Tong Rai MD Other Provider Andres SCHWAB, Dr. Reza Other Provider Shakira Anthony MD Other Provider [phone] Aaron Chavez MD Other Provider [phone] Dr. Sherry Lugo MD Other Provider Arnulfo SCHWAB, Dr. Hoang Other Provider Maribell SCHWAB, Dr. Hemanth Domingo Other Provider Alex SCHWAB, Dr. Moss Other Provider [phone] Yobany SCHWAB, Dr. Torres Other Provider Gurmeet SCHWAB, Dr. Chau Other Provider Afshin SCHWAB, Dr. Valentine Other Provider Unavailable Katerine SCHWAB, Mark Other Provider Unavailable Narciso SCHWAB, Dr. Baxter Attending Provider Vince SCHWAB, Dr. Sen Whipple Other Provider Vince SCHWAB, Dr. Sen Whipple Attending Provider Jayce SCHWAB, Dr. Foy Attending Provider Law Eduardo Attending Unavailable Care Physician, No Primary Primary Care Unava ilable Law Eduardo Attending Unavailable Care Physician, No Primary Primary Care Unava ilable David Gale Consulting Unavailable Nehemiah Haney Admitting Unavailable Sen Clarke Attending Unavailable Care Physician, No Primary Primary Care Unava ilable Adeli, Amir Consulting Unavailable Hinduja, Sheeba Consulting Unavailable Lamberto, Lydia Consulting Unavailable Zha, Renee Consulting Unavailable Augie, Kyle Consulting Unavailable Pratibha, Leidy Consulting Unavailable BitReagan carias Consulting Unavailable Tong Rai Consulting Unavailable Juaquin Campos Consulting Unavailable Shakira Anthony Consulting Unavailable Aaron Chavez Consulting Unavailable Sherry Lugo Consulting Unavailable Natalya Arredondo Consulting Unavailable Hemanth Reyna Consulting UnavailAjay Dahl Consulting Unavailable Melissa [place] Consulting Unavailable Isac Levi Consulting Unavailable Meme Pepe Consulting Unavailable Mark Garcias Consulting Unavailable Nehemiah Haney Consulting Unavailable Sen Clarke Consulting Unavailable Vee Stuart Attending Unavailable Vee Stuart Consulting Unavailable Nehemiah Haney Attending Unavailable Yefri Mancera Attending Unavailable Care Physician, No Primary Referring Unava ilable Care Physician, No Primary Primary Care Unava ilable Care Physician, No Primary Primary Care Unava ilable Lauri Puga Attending Unavailable Yefri Mancera Referring Unavailable Yefri Mancera Attending Unavailable Care Physician, No Primary Primary Care Unava ilable Lori Hay Consulting Unavailable Care Physician, No Primary Primary Care Unava ilable Kaleb Horta Attending Unavailable Trav, Luis Chi Admitting Unavailable JaRick vitalmaque Consulting Unavailable Eulalia Carpio Consulting Unavailable Susan Salas Consulting Unavailable Maurilio Rivera Consulting Unavailable Pedro Hong Consulting Unavailable Law Eduardo Consulting Unavailable Nehemiah Horton Consulting Unavailable Pratima Arrieta Consulting Unavailable Chevy Gann Consulting Unavailable Abigail Guerrero Consulting UnavailEllis Barcenas Consulting Unavailable Nghia Hdez Consulting Unavailable Jarred Garg NP Consulting Unavailable Danielle Palm Consulting Unavail able Omer Naranjo Consulting Unavailable hSaun Del Angel Consulting Unavailable Trav, Luis Chi Consulting Unavailable David Gale Consulting Unavailable Nehemiah Haney Admitting Unavailable Vee Stuart Attending Unavailable Care Physician, No Primary Primary Care Unava ilable Ehsan Uriarte Consulting Unavailable HindSheeba yang Consulting Unavailable Lydia Orantes Consulting Unavailable Megha Renee Consulting Unavailable AugieKyle reyna Consulting Unavailable PratibhaLeidy mcgarry Consulting Unavailable Reagan White Consulting Unavailable Tong Rai Consulting Unavailable Juaquin Campos Consulting Unavailable Shakira Anthony Consulting Unavailable Aaron Chavez Consulting Unavailable Sherry Lugo Consulting Unavailable Natalya Arredondo Consulting Unavailable Hemanth Reyna Consulting UnavailAjay Dahl Consulting Unavailable Melissa [place] Consulting Unavailable Isac Levi Consulting Unavailable Meme Pepe Consulting Unavailable Mark Garcias Consulting Unavailable Nehemiah Haney Consulting Unavailable Sen Clarke Consulting Unavailable Allergies Allergy Classification Reported Allergen(s) Allergy Type Date of Onset Reaction(s) Facility (5 sources) Naproxen; Translations: [NAPROXEN] [facility] Work Phone: (2 sources) Seasonal allergy; Translations: [SEASONAL ALLERGIES] Propensity to adverse reactions 0 [facility] (3 sources) Codeine Drug Allergy 5 Unknown [facility] (1 source) Codeine Drug Allergy 5 [facility] Repository (1 source) Naproxen Drug Allergy 5 [facility] Repository Medications Current Medications Medication Drug Class(es) Dates Sig (Normalized) Sig (Original) amphetamine aspartate 7.5 mg / amphetamine sulfate 7.5 mg / dextroamphetamine saccharate 7.5 mg / dextroamphetamine sulfate 7.5 mg oral tablet (7 sources) Central Nervous System Stimulant Start: 10-30-2024 Dextroamphetamin e-Amphetamine 30 mg tablet Active 1 {tbl} PO TWICE A DAY October 30, 2024 12:00am Start: 03-25-2019 take 1 tablet by shay th twice daily dextroamphetamine-amphetamine (ADDERALL) 5 mg tablet Indications: Attention deficit [...] days. 60 tablet 03/25/2019 Active Start: 07-17-2014 End: 11-01-2024 Dextroamphetamine-Amphetamin e (Adderall 15 Mg Tablet) 15 MG tablet Discontinued 25 mg PO TWICE A DAY July 17, 2014 12:00am November 01, 2024 2:24pm aspirin 81 mg chewable tablet (1 source) Platelet Aggregation Inhibitor, Nonsteroidal Anti-inflammatory Drug Start: 11-01-2024 take 1 tablet by mouth once daily at mealtime Aspirin 81 mg Tablet,Chewable Active 81 mg PO DAILY WITH MEALS 0 November 01, 2024 12:00am atorvastatin 80 mg oral tablet (1 source) HMG-CoA Reductase Inhibitor Start: 11-01-2024 take 1 tablet by mouth at bedtime Atorvastatin 80 mg Tablet Active 80 mg PO AT BEDTIME 0 November 01, 2024 12:00am cyclobenzaprine hydrochloride 10 mg oral tablet (1 source) Muscle Relaxant Start: 11-01-2024 take 1 tablet by mouth three times daily as needed for muscle spasms Cyclobenzaprine 10 mg Tablet Active 10 mg PO 3 TIMES DAILY NEEDED as needed for Muscle Spasm 0 November 01, 2024 12:00am dexamethasone phosphate 1 mg/ml ophthalmic solution (2 sources) Corticosteroid Start: 10-30-2024 Dexamethasone Sodium Phosphate 0.1 % drops Active 1 NMA OPHTHALMIC 4 TIMES DAILY October 30, 2024 12:00am dicyclomine hydrochloride 10 mg oral capsule (1 source) Anticholinergic Start: 02-11-2019 take 1 capsule by mouth three times daily as needed dicyclomine (BENTYL) 10 mg capsule Indications: Altered bowel habits , Generalized abdominal pain Take 1 capsule by mouth three times daily as needed. 90 capsule 3 02/11/2019 Active erythromycin 0.005 mg/mg ophthalmic ointment (2 sources) Macrolide, Macrolide Antimicrobial Start: 10-30-2024 Erythromycin 5 mg/gram (0.5 %) ointment Active 1 NMA OPHTHALMIC EVERY EVENING October 30, 2024 12:00am hydroCHLOROthiazide 12.5 mg oral capsule (1 source) Thiazide Diuretic Start: 11-01-2024 take 1 capsule by mouth once daily Hydrochlorothiazide 12.5 mg Capsule Active 12.5 mg PO DAILY 0 0 November 01, 2024 12:00am lactobacillus acidophilus 460 mg oral capsule (1 source) Start: 11-20-2019 take 1 capsule by mouth once daily Lactobacillus acidophilus (FLORAJEN) 460 mg (20 billion cell) cap Take 1 capsule by mouth once daily. 30 capsule 11/20/2019 Active lisinopril 10 mg oral tablet (1 source) Angiotensin Converting Enzyme Inhibitor Start: 11-01-2024 take 1 tablet by mouth once daily Lisinopril 10 mg Tablet Active 10 mg PO DAILY 0 0 November 01, 2024 12:00am loratadine 10 mg oral tablet (4 sources) Start: 01-25-2018 take 1 tablet by [...] / HYDROcodone bitartrate 5 mg oral tablet (3 sources) Opioid Agonist Start: 01-25-2018 End: 01-28-2018 Hydrocodone-Acetam inophen 1 TABLET tablet Discontinued 1 {tbl} PO EVERY 6 HOURS NEEDED as needed for Pain 10 3 0 January 25, 2018 12:00am January 27, 2018 12:00am January 28, 2018 12:11am Strain of left shoulder Drug-induced anaphylaxis Anaphylactic shock, unspecified, initial encounter cloNIDine hydrochloride 0.1 mg oral tablet (3 sources) Central alpha-2 Adrenergic Agonist Start: 11-27-2023 End: 11-01-2024 take 1 tablet by mouth every six hours as needed Clonidine Hcl 0.1 mg tablet Discontinued 0.1 mg PO EVERY 6 HOURS as needed for hypertensive emergency 10 0 November 27, 2023 12:00am November 01, 2024 2:24pm rizatriptan 10 mg oral tablet (2 sources) Serotonin-1b and Serotonin-1d Receptor Agonist Start: 10-30-2024 End: 11-01-2024 take 1 tablet by mouth every two hours as needed for headache Rizatriptan 10 mg tablet Discontinued 10 mg PO Q2H as needed for migraine headache October 30, 2024 12:00am November 01, 2024 2:24pm Problems Active Problems Problem Classification Problem Date Documented Da te Episodic/Chronic Acute cerebrovascular disease (6 sources) Ischemic stroke; Translations: [Cerebral infarction, unspecified] Onset: 11-01-2024 10-30-2024 Chronic Attention-deficit, conduct, and disruptive behavior disorders (4 sources) Attention deficit hyperactivity disorder; Translations: [Attention-deficit hyperactivity disorder, unspecified type] 10-30-2024 Chronic Attention-deficit, conduct, and disruptive behavior disorders (2 sources) Attention-deficit hyperactivity disorder, unspecified type; Translations: [Attention-deficit hyperactivity disorder, unspecified type] Onset: 11-01-2024 Chronic Disorders usually diagnosed in infancy, childhood, or adolescence (1 source) Attention deficit hyperactivity disorder, predominantly inattentive type; Translations: [Other specified behavioral and emotional disorders with onset usually occurring in childhood and adolescence] Onset: 11-12-2013 11-12-2013 Chronic Essential hypertension (7 sources) Essential hypertension; Translations: [Essential (primary) hypertension] Onset: 01-02-2019 01-02-2019 Chronic Headache; including migraine (7 sources) Migraine; Translations: [Migraine, unspecified, not intractable, without status migrainosus] Onset: 11-12-2013 11-12-2013 Chronic Hypertension with complications and secondary hypertension (3 sources) Hypertensive urgency ; Translations: [Hypertensive urgency] 12-05-2023 Chronic Malaise and fatigue (7 sources) Muscle weakness; Translations: [Weakness] Onset: 11-01-2024 10-30-2024 Episodic Nonspecific chest pain (4 sources) Chest discomfort; Translations: [Other chest pain] 11-27-2023 Episodic Other connective tissue disease (1 source) Pain in right foot; Translations: [Pain in right foot] Onset: 08-22-2024 Episodic Other gastrointestinal disorders (1 source) Irritable bowel syndrome; Translations: [Mixed irritable bowel syndrome] Onset: 01-02-2019 01-02-2019 Chronic Other hematologic conditions (2 sources) Erythrocytosis; 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] 10-31-2024 Episodic Other hematologic conditions (2 sources) Secondary polycythemia; 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] Onset: 11-01-2024 Episodic Other nutritional; endocrine; and metabolic disorders (4 sources) Body mass index 25-29 - overweight; Translations: [Overweight] 10-30-2024 Episodic Other nutritional; endocrine; and metabolic disorders (2 sources) Overweight; Translations: [Overweight] Onset: 11-01-2024 Episodic Other upper respiratory disease (1 source) Allergic rhinitis, unspecified; Translations: [Allergic rhinitis, unspecified] Onset: 11-04-2024 Chronic Paralysis (1 source) Hemiplegia, unspecified affecting left nondominant side; Translations: [Hemiplegia, unspecified affecting left nondominant side] Onset: 11-04-2024 Chronic Residual codes; unclassified (2 sources) Tobacco user; Translations: [Tobacco use] 10-31-2024 Episodic Residual codes; unclassified (2 sources) Tobacco use; Translations: [Tobacco use] Onset: 11-01-2024 Episodic Sprains and strains (5 sources) Strain of great toe; Translations: [Strain of unspecified muscle and tendon at ankle and foot level, right foot, initial encounter] 08-19-2024 Episodic Superficial injury; contusion (5 sources) Contusion of right great toe; Translations: [Contusion of right great toe without damage to nail, initial encounter] 08-19-2024 Episodic Unclassified (1 source) A referral will be sent to [facility] neurology for follow-up Past or Other Problems Problem Classification Problem [...] Test Name Value Interpretation Reference Range Facility CBC W/Diff, Automatedon 08-0 Absolute Lymph 3.01 X10 3/uL Normal 0.83-4.51 [facility] Comment on above: Performed By: #### L 503.0106 #### [facility] [address] [place], [address] Absolute Neut 7.9 X10 3/uL High 2.0-7.7 [facility] Comment on above: Performed By: #### L 503.0106 #### [facility] [address] [facility] [place], [address] Basophils/100 WBC (Bld) 0.4 % Normal 0-1 [facility] Comment on above: Performed By: #### L 503.0106 #### [facility] [address] [facility] [place], [address] Eosinophils/100 WBC (Bld) 0.6 % Normal 0-5 [facility] Comment on above: Performed By: #### L 503.0106 #### [facility] [address] [facility] [place], [address] Erythrocyte distribution width (RBC) [Ratio] 12.8 % Normal 11.6-14.6 [facility] Comment on above: Performed By: #### L 503.0106 #### [facility] [address] [place], [address] Hematocrit (Bld) [Volume fraction] 54.0 % High 37-47 [facility] Comment on above: Performed By: #### L 503.0106 #### [facility] [address] [place], [address] Hemoglobin (Bld) [Mass/Vol] 17.7 g/dL High 12.0-15.0 [facility] Comment on above: Performed By: #### L 503.0106 #### [facility] [address] [place], [address] IG% 0.200 Normal 0.0-0.9 [facility] Comment on above: Result Comment: IG% - Immature Granulocytes (promyelocytes, myelocytes and metamyelocytes) > 1% indicates that a LEFT SHIFT is Present. Performed By: #### L 503.0106 #### [facility] [address] [facility] [place], [address] Lymphocytes/100 WBC (Bld) 24.9 % Normal 19-41 [facility] Comment on above: Performed By: #### L 503.0106 #### [facility] [address] [place], [address] MCH (RBC) [Entitic mass] 29.8 pg Normal 27.0-32.0 [facility] Comment on above: Performed By: #### L 503.0106 #### [facility] [address] [place], [address] MCHC (RBC) [Mass/Vol] 32.8 g/dL Normal 32-36 [facility] Comment on above: Performed By: #### L 503.0106 #### [facility] [address] [place], [address] MCV (RBC) [Entitic vol] 91.1 fL Normal 81-99 [facility] Comment on above: Performed By: #### L 503.0106 #### [facility] [address] [place], [address] Monocytes/100 WBC (Bld) 8.2 % Normal 0-10 [facility] Comment on above: Performed By: #### L 503.0106 #### [facility] [address] [place], [address] Neutrophils/100 WBC (Bld) 65.7 % Normal 47-70 [facility] Comment on above: Performed By: #### L 503.0106 #### [facility] [address] [place], [address] Nucleated RBC (Bld) [#/Vol] 0 10*3/uL Normal 0-5 [facility] Comment on above: Performed By: #### L 503.0106 #### [facility] [address] [place], [address] Platelet mean volume (Bld) [Entitic vol] 10.2 fL Normal 6.2-12.0 [facility] Comment on above: Performed By: #### L 503.0106 #### [facility] [address] [place], [address] Platelets (Bld) [#/Vol] 377 10*3/uL Normal 150-450 [facility] Comment on above: Performed By: #### L 503.0106 #### [facility] [address] [place], [address] RBC (Bld) [#/Vol] 5.93 10*6/uL High 4.2-5.4 [facility] Comment on above: Performed By: #### L 503.0106 #### [facility] [address] [place], [address] RDW SD 43.2 fl Normal 35.1-43.9 [facility] Comment on above: Performed By: #### L 503.0106 #### [facility] [address] [place], [address] WBC (Bld) [#/Vol] 12.1 10*3/uL High 4.4-11.0 [facility] Comment on above: Performed By: #### L 503.0106 #### [facility] [address] [place], [address] JAK2 Mutation Analysison JAK2 COMMENT Comment Normal . [facility] Comment on above: Result Comment: Tech nical Component performed at [facility] RT Professional Component performed by: Lisbet Price, PhD, [facility] Director, Molecular Oncology [facility] [id number], [address] [address] This test was developed and its performance characteristics determined by [facility]. It has not been cleared or approved by the Food and Drug Administration. Performed at: [facility] [address] [place], [place] [id number] Whip Operator: Neil Campos [facility], Phone: [phone] Performed at: - [facility] [address] [place], [place] [id number] Whip Operator: Neil Campos [facility], Phone: [phone] Performed By: #### L 503.0106 #### [facility] [address] [place], [address] JAK2 COMMENT 2 Comment Normal . [facility] Comment on above: Result Comment: JAK2 is a cytoplasmic tyrosine kinase with a connell role in signal transduction from multiple hematopoietic growth factor receptors. A point mutation within exon 14 of the JAK2 gene ([id number]) encoding a valine to phenylalanine substitution at position 617 of the JAK2 protein (V617F) has been identified in most patients with polycythemia vera, and in about half of those with either essential thrombocythemia or idiopathic myelofibrosis. The V617F has also been detected, although infrequently, in other myeloid disorders such as chronic myelomonocytic leukemia and chronic neutrophilic luekemia. V617F is an acquired mutation that alters a highly conserved valine present in the negative regulatory JH2 domain of the JAK2 protein and is predicted to dysregulate kinase activity. Methodology: Total genomic DNA was extracted and subjected to TaqMan real-time PCR amplification/detection. Two amplification products per sample were monitored by real-time PCR using primers/probes specific to JAK2 wild type (WT) and JAK2 mutant V617F. The [employer] Absolute Quantitation software will compare the patient specimen valuse to the standard curves and generate percent values for wild type and mutant type. In vitro studies have indicated that this assay has an analytical sensitivity of 1%. References: Solo EJ, Roger BAIG, Macho PJ, et al. Acquired mutation of the tyrosine kinase JAK2 in human myeloproliferative disorders. Lancet. 2005 Jun 19; 365(4775):0705-4337. Tong Bolden, Geraldo V, Adelina Curry JP. A unique clonal JAK2 mutation leading to constitutive signaling causes polycythaemia vera. Nature. 2005 Jul 29; 434(6549):1231-3549. Maryann R, Aly F, Joseph , et al. A gain-of- function mutation of JAK2 in myeloproliferative disorders. N Engl J Med. 2005 Jul 29; 35217):8045-9768. Performed By: #### L 503.0106 #### [facility] [address] [facility] [place], [place], [address] JAK2 MUT QUAL Comment Normal . [facility] Comment on above: Result Comment: Resu lt: NEGATIVE for the JAK2 V617F mutation. Interpretation: The G to T nucleotide change encoding the V617F mutation was not detected. This result does not rule out the presence of the JAK2 mutation at a level below the sensitivity of detection of this assay, or the presence of other mutations within JAK2 not detected by this assay. This result does not rule out a diagnosis of polycythemia vera, essential thrombocythemia or idiopathic myelofibrosis as the V617F mutation is not detected in all patients with these disorders. Performed By: #### L 503.0106 #### [facility] [address] [place], [address] L501.4021on 11-04-2024 Trop T High Sen 26 ng/L High <=14 [facility] Comment on above: Order Comment: CIARA Perez PREVIOUS SPECIMEN REJECTED DUE TOHEMOLYSIS. 11/04/24 Comfort Boss Garcia. Performed By: #### L 501.4020 #### [facility] [address] [place], [address] Basic Metabolic Profile (BMP )on 11-03-2024 BUN/CRE 31.0 RATIO High 10-20 [facility] Comment on above: Performed By: #### L 500.2500 #### [facility] [address] [place], [address] Calcium [Mass/Vol] 10.2 mg/dL Normal 7.6-11.0 [facility] Comment on above: Performed By: #### L 500.2500 #### [facility] [address] [place], [address] Chloride [Moles/Vol] 99 mmol/L Normal 98-108 [facility] Comment on above: Performed By: #### L 500.2500 #### [facility] [address] [place], [address] CO2 [Moles/Vol] 19.6 mmol/L Low 21.0-32.0 [facility] Comment on above: Performed By: #### L 500.2500 #### [facility] [address] [place], [address] Creatinine [Mass/Vol] 0.69 mg/dL Low 0.70-1.20 [facility] Comment on above: Performed By: #### L 500.2500 #### [facility] [address] [place], [address] ECRCL 105.73 ml/min Normal 50-250 [facility] Comment on above: Performed By: #### L 500.2500 #### [facility] [address] [place], [address] GAP 19 High 5-15 [facility] Comment on above: Performed By: #### L 500.2500 #### [facility] [address] [place], [address] GFR/1.73 sq M.predicted among non-blacks MDRD (S/P/Bld) [Vol rate/Area] 112 mL/min/{1.73_m2} Normal >60 [facility] Comment on above: Result Comment: mL/m in/1.73m2 CKD-EPI Creatinine Equation (2020) Performed By: #### L 500.2500 #### [facility] [address] [place], [address] Glucose [Mass/Vol] 122 mg/dL High 70-99 [facility] Comment on above: Performed By: #### L 500.2500 #### [facility] [address] [place], [address] Potassium [Moles/Vol] 4.0 mmol/L Normal 3.3-5.1 [facility] Comment on above: Result Comment: Hemo lysis present, Results??could be affected. ?? Performed By: #### L 500.2500 #### [facility] [address] [place], [address] Sodium [Moles/Vol] 138 mmol/L Normal 133-145 [facility] Comment on above: Performed By: #### L 500.2500 #### [facility] [address] [place], [address] Urea nitrogen [Mass/Vol] 21 mg/dL High 4-19 [facility] Comment on above: Performed By: #### L 500.2500 #### [facility] [address] [place], [address] CBC W/Diff, Automatedon 08-0 -2024 Hematocrit (Bld) [Volume fraction] 58.5 % High 37-47 [facility] Comment on above: Order Comment: CRITI MONICA VALUE CALLED TO PATRICK HOOVERTLER11/03/24 0720 Елена Joshua.RESULTS READ BACK BY SAME. Performed By: #### L 501.4020 #### [facility] [address] [place], [address] Absolute Lymph 2.41 X10 3/uL Normal 0.83-4.51 [facility] Comment on above: Order Comment: CRITI MONICA VALUE CALLED TO PATRICK HOOVERTLER11/03/24 0720 Елена Lewis.RESULTS READ BACK BY SAME. Performed By: #### L 501.4020 #### [facility] [address] [place], [address] Absolute Neut 13.7 X10 3/uL High 2.0-7.7 [facility] Comment on above: Order Comment: CRITI MONICA VALUE CALLED TO PATRICK HOOVERTLER11/03/24 0720 Елена Joshua.RESULTS READ BACK BY SAME. Performed By: #### L 501.4020 #### [facility] [address] [place], [address] Basophils/100 WBC (Bld) 0.5 % Normal 0-1 [facility] Comment on above: Order Comment: CRITI MONICA VALUE CALLED TO PATRICK [id number]/03/25 0720 Елена Joshua.RESULTS READ BACK BY SAME. Performed By: #### L 501.4020 #### [facility] [address] [place], [address] Eosinophils/100 WBC (Bld) 0.3 % Normal 0-5 [facility] Comment on above: Order Comment: CRITI MONICA VALUE CALLED TO PATRICK [id number] 0720 Елена Joshua.RESULTS READ BACK BY SAME. Performed By: #### L 501.4020 #### [facility] [address] [place], [address] Erythrocyte distribution width (RBC) [Ratio] 12.9 % Normal 11.6-14.6 [facility] Comment on above: Order Comment: CRITI MONICA VALUE CALLED TO PATRICK MORENO11/03/24 0720 Елена Lewis.RESULTS READ BACK BY SAME. Performed By: #### L 501.4020 #### [facility] [address] [place], [address] Hemoglobin (Bld) [Mass/Vol] 19.2 g/dL Invalid Interpretation Code 12.0-15.0 [facility] Comment on above: Order Comment: CRITI MONICA VALUE CALLED TO PATRICK MORENO11/03/24719 Елена Lewis.RESULTS READ BACK BY SAME. Performed By: #### L 501.4020 #### [facility] [address] [place], [address] ( IG% 0.500 Normal 0.0-0.9 [facility] Comment on above: Order Comment: CRITI MONICA VALUE CALLED TO PATRICK MORENO11/03/24719 Елена Lewis.RESULTS READ BACK BY SAME. Result Comment: IG% - Immature Granulocytes (promyelocytes, myelocytes and metamyelocytes) > 1% indicates that a LEFT SHIFT is Present. Performed By: #### L 501.4020 #### [facility] [address] [place], [address] Lymphocytes/100 WBC (Bld) 13.7 % Low 19-41 [facility] Comment on above: Order Comment: CRITI MONICA VALUE CALLED TO PATRICK HOOVERTLER11/03/2420 Елена Lewis.RESULTS READ BACK BY SAME. Performed By: #### L 501.4020 #### [facility] [address] [place], [address] MCH (RBC) [Entitic mass] 29.9 pg Normal 27.0-32.0 [facility] Comment on above: Order Comment: CRITI MONICA VALUE CALLED TO PATRICK MORENO11/03/24719 Елена Joshua.RESULTS READ BACK BY SAME. Performed By: #### L 501.4020 #### [facility] [address] [place], [address] MCHC (RBC) [Mass/Vol] 32.8 g/dL Normal 32-36 [facility] Comment on above: Order Comment: CRITI MONICA VALUE CALLED TO PATRICK [id number]/03/25719 Елена Lewis.RESULTS READ BACK BY SAME. Performed By: #### L 501.4020 #### [facility] [address] [place], [address] MCV (RBC) [Entitic vol] 91.1 fL Normal 81-99 [facility] Comment on above: Order Comment: CRITI MONICA VALUE CALLED TO PATRICK [id number] Елена Lewis.RESULTS READ BACK BY SAME. Performed By: #### L 501.4020 #### [facility] [address] [place], [address] Monocytes/100 WBC (Bld) 7.3 % Normal 0-10 [facility] Comment on above: Order Comment: CRITI MONICA VALUE CALLED TO PATRICK [id number] Елена Lewis.RESULTS READ BACK BY SAME. Performed By: #### L 501.4020 #### [facility] [address] [place], [address] Neutrophils/100 WBC (Bld) 77.7 % High 47-70 [facility] Comment on above: Order Comment: CRITI MONICA VALUE CALLED TO PATRICK HOOVERTLER11/03/2420 Елена Lewis.RESULTS READ BACK BY SAME. Performed By: #### L 501.4020 #### [facility] [address] [place], [address] Nucleated RBC (Bld) [#/Vol] 0 10*3/uL Normal 0-5 [facility] Comment on above: Order Comment: CRITI MONICA VALUE CALLED TO PATRICK MORENO11/03/2420 Елена Lewis.RESULTS READ BACK BY SAME. Performed By: #### L 501.4020 #### [facility] [address] [place], [address] Platelet mean volume (Bld) [Entitic vol] 10.3 fL Normal 6.2-12.0 [facility] Comment on above: Order Comment: CRITI MONICA VALUE CALLED TO PATRICK MORENO11/03/2420 Елена Joshua.RESULTS READ BACK BY SAME. Performed By: #### L 501.4020 #### [facility] [address] [place], [address] Platelets (Bld) [#/Vol] 371 10*3/uL Normal 150-450 [facility] Comment on above: Order Comment: CRITI MONICA VALUE CALLED TO PATRICK MORENO11/03/2420 Елена Lewis.RESULTS READ BACK BY SAME. Performed By: #### L 501.4020 #### [facility] [address] [place], [address] RBC (Bld) [#/Vol] 6.42 10*6/uL High 4.2-5.4 [facility] Comment on above: Order Comment: CRITI MONICA VALUE CALLED TO PATRICK MORENO11/03/2420 Елена Lewis.RESULTS READ BACK BY SAME. Performed By: #### L 501.4020 #### [facility] [address] [place], [address] RDW SD 43.6 fl Normal 35.1-43.9 [facility] Comment on above: Order Comment: CRITI MONICA VALUE CALLED TO PATRICK MORENO11/03/2420 Елена Joshua.RESULTS READ BACK BY SAME. Performed By: #### L 501.4020 #### [facility] [address] [place], [address] WBC (Bld) [#/Vol] 17.6 10*3/uL High 4.4-11.0 [facility] Comment on above: Order Comment: CRITI MONICA VALUE CALLED TO PATRICK MORENO11/03/24 0720 Елена Lewis.RESULTS READ BACK BY SAME. Performed By: #### L 501.4020 #### [facility] [address] [place], [address] Urinalysis, Completeon 11-03 CAST,HYALINE 0-5 SEEN Normal 0-5 [facility] Comment on above: Order Comment: CHANDLER TER SPECIMEN Performed By: #### L 501.4020 #### [facility] [address] [place], [address] BACTERIA 0 SEEN Normal None Seen [facility] Comment on above: Order Comment: CHANDLER TER SPECIMEN Performed By: #### L 501.4020 #### [facility] [address] [place], [address] EPI,SQUAMOUS 0 SEEN Normal 5-10 [facility] Comment on above: Order Comment: CHANDLER TER SPECIMEN Performed By: #### L 501.4020 #### [facility] [address] [place], [address] Mucus Ql (Urine sed) 0 SEEN Normal [facility] Comment on above: Order Comment: CHANDLER TER SPECIMEN Performed By: #### L 501.4020 #### [facility] [address] [place], [address] RBC 0 SEEN Normal 0-5 [facility] Comment on above: Order Comment: CHANDLER TER SPECIMEN Performed By: #### L 501.4020 #### [facility] [address] [place], [address] WBC 0 SEEN Normal 0-5 [facility] Comment on above: Order Comment: CHANDLER TER SPECIMEN Performed By: #### L 501.4020 #### [facility] [address] [place], [address] CBC W/Diff, Automatedon 08-0 2-2025 Absolute Lymph 2.15 X10 3/uL Normal 0.83-4.51 [facility] Comment on above: Performed By: #### L 501.4020 #### [facility] [address] [place], [address] Absolute Neut 12.0 X10 3/uL High 2.0-7.7 [facility] Comment on above: Performed By: #### L 501.4020 #### [facility] [address] [place], [address] Basophils/100 WBC (Bld) 0.4 % Normal 0-1 [facility] Comment on above: Performed By: #### L 501.4020 #### [facility] [address] [place], [address] Eosinophils/100 WBC (Bld) 0.3 % Normal 0-5 [facility] Comment on above: Performed By: #### L 501.4020 #### [facility] [address] [place], [address] Erythrocyte distribution width (RBC) [Ratio] 12.3 % Normal 11.6-14.6 [facility] Comment on above: Performed By: #### L 501.4020 #### [facility] [address] [place], [address] Hematocrit (Bld) [Volume fraction] 53.0 % High 37-47 [facility] Comment on above: Performed By: #### L 501.4020 #### [facility] [address] [place], [address] Hemoglobin (Bld) [Mass/Vol] 17.9 g/dL High 12.0-15.0 [facility] Comment on above: Performed By: #### L 501.4020 #### [facility] [address] [place], [address] IG% 0.300 Normal 0.0-0.9 [facility] Comment on above: Result Comment: IG% - Immature Granulocytes (promyelocytes, myelocytes and metamyelocytes) > 1% indicates that a LEFT SHIFT is Present. Performed By: #### L 501.4020 #### [facility] [address] [place], [address] Lymphocytes/100 WBC (Bld) 14.2 % Low 19-41 [facility] Comment on above: Performed By: #### L 501.4020 #### [facility] [address] [place], [address] MCH (RBC) [Entitic mass] 30.2 pg Normal 27.0-32.0 [facility] Comment on above: Performed By: #### L 501.4020 #### [facility] [address] [place], [address] MCHC (RBC) [Mass/Vol] 33.8 g/dL Normal 32-36 [facility] Comment on above: Performed By: #### L 501.4020 #### [facility] [address] [place], [address] MCV (RBC) [Entitic vol] 89.5 fL Normal 81-99 [facility] Comment on above: Performed By: #### L 501.4020 #### [facility] [address] [place], [address] Monocytes/100 WBC (Bld) 5.7 % Normal 0-10 [facility] Comment on above: Performed By: #### L 501.4020 #### [facility] [address] [place], [address] Neutrophils/100 WBC (Bld) 79.1 % High 47-70 [facility] Comment on above: Performed By: #### L 501.4020 #### [facility] [address] [place], [address] Nucleated RBC (Bld) [#/Vol] 0 10*3/uL Normal 0-5 [facility] Comment on above: Performed By: #### L 501.4020 #### [facility] [address] [place], [address] Platelet mean volume (Bld) [Entitic vol] 10.2 fL Normal 6.2-12.0 [facility] Comment on above: Performed By: #### L 501.4020 #### [facility] [address] [place], [address] Platelets (Bld) [#/Vol] 345 10*3/uL Normal 150-450 [facility] Comment on above: Performed By: #### L 501.4020 #### [facility] [address] [place], [address] RBC (Bld) [#/Vol] 5.92 10*6/uL High 4.2-5.4 [facility] Comment on above: Performed By: #### L 501.4020 #### [facility] [address] [place], [address] RDW SD 40.8 fl Normal 35.1-43.9 [facility] Comment on above: Performed By: #### L 501.4020 #### [facility] [address] [place], [address] WBC (Bld) [#/Vol] 15.1 10*3/uL High 4.4-11.0 [facility] Comment on above: Performed By: #### L 501.4020 #### [facility] [address] [place], [address] Comprehensive Metabolic Prof ilon 11-02-2024 Albumin [Mass/Vol] 4.6 g/dL Normal 3.5-5.0 [facility] Comment on above: Performed By: #### L 501.4020 #### [facility] [address] [place], [address] Albumin/Globulin [Mass ratio] 1.4 {ratio} Normal 0.9-2.4 [facility] Comment on above: Performed By: #### L 501.4020 #### [facility] [address] [place], [address] ALK PHOS 103 U/L Normal 35-104 [facility] Comment on above: Performed By: #### L 501.4020 #### [facility] [address] [place], [address] ALT [Catalytic activity/Vol] 15 U/L Normal <=34 [facility] Comment on above: Performed By: #### L 501.4020 #### [facility] [address] [place], [address] AST [Catalytic activity/Vol] 19 U/L Normal <=31 [facility] Comment on above: Performed By: #### L 501.4020 #### [facility] [address] [place], [address] Bilirubin [Mass/Vol] 0.68 mg/dL Normal 0.00-1.30 [facility] Comment on above: Performed By: #### L 501.4020 #### [facility] [address] [place], [address] BUN/CRE 19.1 RATIO Normal 10-20 [facility] Comment on above: Performed By: #### L 501.4020 #### [facility] [address] [place], [address] Calcium [Mass/Vol] 9.8 mg/dL Normal 7.6-11.0 [facility] Comment on above: Performed By: #### L 501.4020 #### [facility] [address] [place], [address] Chloride [Moles/Vol] 104 mmol/L Normal 98-108 [facility] Comment on above: Performed By: #### L 501.4020 #### [facility] [address] [place], [address] CO2 [Moles/Vol] 20.0 mmol/L Low 21.0-32.0 [facility] Comment on above: Performed By: #### L 501.4020 #### [facility] [address] [place], [address] Creatinine [Mass/Vol] 0.56 mg/dL Low 0.70-1.20 [facility] Comment on above: Performed By: #### L 501.4020 #### [facility] [address] [place], [address] ECRCL 130.27 ml/min Normal 50-250 [facility] Comment on above: Performed By: #### L 501.4020 #### [facility] [address] [place], [address] GAP 14 Normal 5-15 [facility] Comment on above: Performed By: #### L 501.4020 #### [facility] [address] [place], [address] GFR/1.73 sq M.predicted among non-blacks MDRD (S/P/Bld) [Vol rate/Area] 118 mL/min/{1.73_m2} Normal >60 [facility] Comment on above: Result Comment: mL/m in/1.73m2 CKD-EPI Creatinine Equation (2020) Performed By: #### L 501.4020 #### [facility] [address] [place], [address] Globulin (S) [Mass/Vol] 3.2 g/dL Normal 2.2-4.2 [facility] Comment on above: Performed By: #### L 501.4020 #### [facility] [address] [place], [address] Glucose [Mass/Vol] 152 mg/dL High 70-99 [facility] Comment on above: Performed By: #### L 501.4020 #### [facility] [address] [place], [address] Potassium [Moles/Vol] 3.7 mmol/L Normal 3.3-5.1 [facility] Comment on above: Performed By: #### L 501.4020 #### [facility] [address] [place], [address] Sodium [Moles/Vol] 138 mmol/L Normal 133-145 [facility] Comment on above: Performed By: #### L 501.4020 #### [facility] [address] [place], [address] T PROT 7.7 g/dL Normal 5.9-8.4 [facility] Comment on above: Performed By: #### L 501.4020 #### [facility] [address] [place], [address] Urea nitrogen [Mass/Vol] 11 mg/dL Normal 4-19 [facility] Comment on above: Performed By: #### L 501.4020 #### [facility] [address] [place], [address] Magnesiumon 11-02-2024 Magnesium [Mass/Vol] 2.4 mg/dL High 1.5-2.2 [facility] Comment on above: Performed By: #### L 501.4020 #### [facility] [address] [place], [address] Phosphoruson 11-02-2024 Phosphate [Mass/Vol] 3.6 mg/dL Normal 2.7-4.5 [facility] Comment on above: Performed By: #### L 501.4020 #### [facility] [address] [place], [address] Absolute lymphocyte countOrd ered By: Sen Clarke on 11-01-2024 Lymphocytes Auto (Unsp spec) [#/Vol] 2.74 10*3/uL 0.83-4.51 [facility] Absolute neutrophil countOrd ered By: Sen Clarke on 11-01-2024 Neutrophils (Bld) [#/Vol] 8.9 10*3/uL High 2.0-7.7 [facility] Automated lymphocyte count a s percentage of total leukocytesOrdered By: Sen Clarke on 11-01-2024 Lymphocytes/100 WBC Auto (Unsp spec) 21.5 % 19-41 [facility] Basic Metabolic Profile (BMP )on 11-01-2024 BUN/CRE 13.4 RATIO Normal 10-20 [facility] Comment on above: Order Comment: REDRA W. PREVIOUS SPECIMEN REJECTED DUE TOHEMOLYSIS. 11/01/2439 Tong Mccormick. Performed By: #### L 503.0106 #### [facility] [address] [place], [address] Calcium [Mass/Vol] 9.2 mg/dL Normal 7.6-11.0 [facility] Comment on above: Order Comment: REDRA W. PREVIOUS SPECIMEN REJECTED DUE TOHEMOLYSIS. 11/01/2439 Tong Mccormick. Performed By: #### L 503.0106 #### [facility] [address] [place], [address] Chloride [Moles/Vol] 106 mmol/L Normal 98-108 [facility] Comment on above: Order Comment: REDRA W. PREVIOUS SPECIMEN REJECTED DUE TOHEMOLYSIS. 11/01/2439 Tong Mccormick. Performed By: #### L 503.0106 #### [facility] [address] [place], [address] CO2 [Moles/Vol] 20.1 mmol/L Low 21.0-32.0 [facility] Comment on above: Order Comment: REDRA W. PREVIOUS SPECIMEN REJECTED DUE TOHEMOLYSIS. 11/01/24738 Tong Castañeda Jace. Performed By: #### L 503.0106 #### [facility] [address] [place], [address] Creatinine [Mass/Vol] 0.59 mg/dL Low 0.70-1.20 [facility] Comment on above: Order Comment: REDRA W. PREVIOUS SPECIMEN REJECTED DUE TOHEMOLYSIS. 11/01/24738 Tong Mccormick. Performed By: #### L 503.0106 #### [facility] [address] [place], [address] ECRCL 127.93 ml/min Normal 50-250 [facility] Comment on above: Order Comment: REDRA W. PREVIOUS SPECIMEN REJECTED DUE TOHEMOLYSIS. 11/01/24738 Tong Garry Jace. Performed By: #### L 503.0106 #### [facility] [address] [place], [address] GAP 14 Normal 5-15 [facility] Comment on above: Order Comment: REDRA W. PREVIOUS SPECIMEN REJECTED DUE TOHEMOLYSIS. 11/01/24738 Tong Mccormick. Performed By: #### L 503.0106 #### [facility] [address] [place], [address] GFR/1.73 sq M.predicted among non-blacks MDRD (S/P/Bld) [Vol rate/Area] 116 mL/min/{1.73_m2} Normal >60 [facility] Comment on above: Order Comment: REDRA W. PREVIOUS SPECIMEN REJECTED DUE TOHEMOLYSIS. 11/01/24738 Tong Castañeda Jace. Result Comment: mL/m in/1.73m2 CKD-EPI Creatinine Equation (2020) Performed By: #### L 503.0106 #### [facility] [address] [place], [address] Glucose [Mass/Vol] 140 mg/dL High 70-99 [facility] Comment on above: Order Comment: REDRA W. PREVIOUS SPECIMEN REJECTED DUE TOHEMOLYSIS. 11/01/24738 Tong Mccormick. Performed By: #### L 503.0106 #### [facility] [address] [place], [address] Potassium [Moles/Vol] 3.6 mmol/L Normal 3.3-5.1 [facility] Comment on above: Order Comment: REDRA W. PREVIOUS SPECIMEN REJECTED DUE TOHEMOLYSIS. 11/01/24738 Tong Mccormick. Performed By: #### L 503.0106 #### [facility] [address] [place], [address] Sodium [Moles/Vol] 140 mmol/L Normal 133-145 [facility] Comment on above: Order Comment: REDRA W. PREVIOUS SPECIMEN REJECTED DUE TOHEMOLYSIS. 11/01/24738 Tong Mccormick. Performed By: #### L 503.0106 #### [facility] [address] [place], [address] Urea nitrogen [Mass/Vol] 8 mg/dL Normal 4-19 [facility] Comment on above: Order Comment: REDRA W. PREVIOUS SPECIMEN REJECTED DUE TOHEMOLYSIS. 11/01/2439 Tong Mccormick. Performed By: #### L 503.0106 #### [facility] [address] [place], [address] BUN Normal -19 [facility] Comment on above: Result Comment: This specimen has been REJECTED due to Laboratory criteria: Hemolyzed. NESS BURNETT has been notified of need of recollection. 11/01/2437 Tong Mccormick Performed By: #### L 100.0100, L500.2500 #### [facility] [address] [place], [address] BUN/CRE Normal 10-20 [facility] Comment on above: Result Comment: This specimen has been REJECTED due to Laboratory criteria: Hemolyzed. NESS BURNETT has been notified of need of recollection. 11/01/24736 Tong L White Performed By: #### L 100.0100, L500.2500 #### [facility] [address] [place], [address] Calcium Normal 7.6-11.0 [facility] Comment on above: Result Comment: This specimen has been REJECTED due to Laboratory criteria: Hemolyzed. NESS BURNETT has been notified of need of recollection. 11/01/24736 Tong L White Performed By: #### L 100.0100, L500.2500 #### [facility] [address] [place], [address] CL Normal 98-108 [facility] Comment on above: Result Comment: This specimen has been REJECTED due to Laboratory criteria: Hemolyzed. NESS BURNETT has been notified of need of recollection. 11/01/24736 Tong L White Performed By: #### L 100.0100, L500.2500 #### [facility] [address] [place], [address] CO2 Normal 21.0-32.0 [facility] Comment on above: Result Comment: This specimen has been REJECTED due to Laboratory criteria: Hemolyzed. NESS BURNETT has been notified of need of recollection. 11/01/24736 Tong L White Performed By: #### L 100.0100, L500.2500 #### [facility] [address] [place], [address] CREAT,SERUM Normal 0.70-1.20 [facility] Comment on above: Result Comment: This specimen has been REJECTED due to Laboratory criteria: Hemolyzed. NESS BURNETT has been notified of need of recollection. 11/01/24736 Tong L White Performed By: #### L 100.0100, L500.2500 #### [facility] [address] [place], [address] eGFR Normal >60 [facility] Comment on above: Result Comment: This specimen has been REJECTED due to Laboratory criteria: Hemolyzed. NESS BURNETT has been notified of need of recollection. 11/01/24736 Tong L White Performed By: #### L 100.0100, L500.2500 #### [facility] [address] [place], [address] GAP Normal 5-15 [facility] Comment on above: Result Comment: This specimen has been REJECTED due to Laboratory criteria: Hemolyzed. NESS BURNETT has been notified of need of recollection. 11/01/24736 Tong L White Performed By: #### L 100.0100, L500.2500 #### [facility] [address] [place], [address] GLU Normal 70-99 [facility] Comment on above: Result Comment: This specimen has been REJECTED due to Laboratory criteria: Hemolyzed. NESS BURNETT has been notified of need of recollection. 11/01/24736 Tong L White Performed By: #### L 100.0100, L500.2500 #### [facility] [address] [place], [address] Potassium Normal 3.3-5.1 [facility] Comment on above: Result Comment: This specimen has been REJECTED due to Laboratory criteria: Hemolyzed. NESS BURNETT has been notified of need of recollection. 11/01/24736 Tong L White Performed By: #### L 100.0100, L500.2500 #### [facility] [address] [place], [address] Basic Metabolic Profile (BMP) Normal 133-145 [facility] Comment on above: Result Comment: This specimen has been REJECTED due to Laboratory criteria: Hemolyzed. NESS BURNETT has been notified of need of recollection. 11/01/24736 Tong L White Performed By: #### L 100.0100, L500.2500 #### [facility] [address] [place], [address] Basophil percentageOrdered B y: Sen Clarke on 11-01-2024 Basophils/100 WBC (Bld) 0.3 % 0-1 [facility] CBC W/Diff, Automatedon Absolute Lymph 2.74 X10 3/uL Normal 0.83-4.51 [facility] Comment on above: Performed By: #### L 100.0100, L500.2500 #### [facility] [address] [place], [address] Absolute Neut 8.9 X10 3/uL High 2.0-7.7 [facility] Comment on above: Performed By: #### L 100.0100, L500.2500 #### [facility] [address] [place], [address] Basophils/100 WBC (Bld) 0.3 % Normal 0-1 [facility] Comment on above: Performed By: #### L 100.0100, L500.2500 #### [facility] [address] [place], [address] Eosinophils/100 WBC (Bld) 0.8 % Normal 0-5 [facility] Comment on above: Performed By: #### L 100.0100, L500.2500 #### [facility] [address] [place], [address] Erythrocyte distribution width (RBC) [Ratio] 12.0 % Normal 11.6-14.6 [facility] Comment on above: Performed By: #### L 100.0100, L500.2500 #### [facility] [address] [place], [address] Hematocrit (Bld) [Volume fraction] 47.1 % High 37-47 [facility] Comment on above: Performed By: #### L 100.0100, L500.2500 #### [facility] [address] [place], [address] Hemoglobin (Bld) [Mass/Vol] 16.2 g/dL High 12.0-15.0 [facility] Comment on above: Performed By: #### L 100.0100, L500.2500 #### [facility] [address] [place], [address] IG% 0.400 Normal 0.0-0.9 [facility] Comment on above: Result Comment: IG% - Immature Granulocytes (promyelocytes, myelocytes and metamyelocytes) > 1% indicates that a LEFT SHIFT is Present. Performed By: #### L 100.0100, L500.2500 #### [facility] [address] [place], [address] Lymphocytes/100 WBC (Bld) 21.5 % Normal 19-41 [facility] Comment on above: Performed By: #### L 100.0100, L500.2500 #### [facility] [address] [place], [address] MCH (RBC) [Entitic mass] 30.5 pg Normal 27.0-32.0 [facility] Comment on above: Performed By: #### L 100.0100, L500.2500 #### [facility] [address] [place], [address] MCHC (RBC) [Mass/Vol] 34.4 g/dL Normal 32-36 [facility] Comment on above: Performed By: #### L 100.0100, L500.2500 #### [facility] [address] [place], [address] MCV (RBC) [Entitic vol] 88.7 fL Normal 81-99 [facility] Comment on above: Performed By: #### L 100.0100, L500.2500 #### [facility] [address] [place], [address] Monocytes/100 WBC (Bld) 7.5 % Normal 0-10 [facility] Comment on above: Performed By: #### L 100.0100, L500.2500 #### [facility] [address] [place], [address] Neutrophils/100 WBC (Bld) 69.5 % Normal 47-70 [facility] Comment on above: Performed By: #### L 100.0100, L500.2500 #### [facility] [address] [place], [address] Nucleated RBC (Bld) [#/Vol] 0 10*3/uL Normal 0-5 [facility] Comment on above: Performed By: #### L 100.0100, L500.2500 #### [facility] [address] [place], [address] Platelet mean volume (Bld) [Entitic vol] 10.4 fL Normal 6.2-12.0 [facility] Comment on above: Performed By: #### L 100.0100, L500.2500 #### [facility] [address] [place], [address] Platelets (Bld) [#/Vol] 290 10*3/uL Normal 150-450 [facility] Comment on above: Performed By: #### L 100.0100, L500.2500 #### [facility] [address] [place], [address] RBC (Bld) [#/Vol] 5.31 10*6/uL Normal 4.2-5.4 [facility] Comment on above: Performed By: #### L 100.0100, L500.2500 #### [facility] [address] [place], [address] RDW SD 39.5 fl Normal 35.1-43.9 [facility] Comment on above: Performed By: #### L 100.0100, L500.2500 #### [facility] [address] [place], [address] WBC (Bld) [#/Vol] 12.7 10*3/uL High 4.4-11.0 [facility] Comment on above: Performed By: #### L 100.0100, L500.2500 #### [facility] [address] [place], [address] Discharge Instructionon 08-0 Discharge Instruction [facility] Medical Records Department [address] [place] [address] Instructions for Home/Discharge Instructions 11/01/24 1422 MR#: [id number] Acct: [id number] Name: JAYDA OSHEA Rep #: [id number] : 1985 39 From: Vee Stuart MD PCP: Care Physician,No Primary Status:ADM IN Discharge Instructions DC O2, CPAP, BIPAP needs Home O2 Discharge instructions: No Dressing / Incision Discharge Activity: - (Discharging to [facility]) Follow Up Care Test Results: Test results from this visit will be discussed in further detail at your follow-up appointment, if applicable. Discharge Plan Admission Admit Date/Time: 10/30/24 23:35 Primary Reason for Your Visit: Left hemiparesis Attending Provider: Vee Stuart Primary Care Provider: Care Physician,No Primary Consulting Providers: David Gale; Ehsan Uriarte; Sheeba Rodriguez; Lydia Orantes; Rneee Cleveland; Kyle Ghosh; Leidy Mckinnon; Reagan White; Tong Rai; Juaquin Campos; Shakira Anthony; Aaron Chavez; Sherry Lugo; Natalya Arredondo; Hemanth Reyna; Ajay Johnson; Melissa [place]; Isac Levi; Meme Pepe; Mark Garcias; Nehemiah Haney; Sen Clarke Instructions Patient Instructions: Discharge Instructions for Stroke Additional Instructions / Restrictions: DISCHARGE INSTRUCTIONS PLEASE READ *Please take this with you to your next doctors appointment* - It was recommended by neurology that a 30-day event monitor be prescribed on discharge, this order has been entered - You will need to follow-up with neurology after discharge, a referral to [facility] neurology will be made - You have been started on lisinopril 10 mg, given how high your blood pressure has been it is also advised that you start 12.5 mg of hydrochlorothiazide tomorrow as well and uptitrate both of these as tolerated, ultimately goal blood pressure less than 130/85 -Would recommend lab work (BMP) to check your potassium and kidney function in 3 to 4 days - You have been started on aspirin 81 mg and atorvastatin 80 mg, you will need to take these lifelong - Smoking cessation is strongly advised - Rizatriptan as needed for migraine headaches has been discontinued on discharge due to her stroke - May need to consider tapering Adderall or start alternate agents if patient's blood pressure continues to be difficult to control - Family indicated the patient has chronic headaches and follows with neurology, would recommend she continue following on discharge for further evaluation and treatment -Please call your primary care provider's office upon discharge to schedule a hospital follow up within 1 week. -If you do not have a primary care physician of list of local primary care physicians can be provided for you upon discharge. Please ask for this list prior to discharge -For any concerning signs or symptoms please call 911 or proceed to the nearest emergency department Discharge Orders/Prescriptions Prescriptions: New cyclobenzaprine 10 mg Tablet 10 mg PO TID PRN PRN (Reason: Muscle Spasm) Qty: 0 0RF atorvastatin 80 mg Tablet 80 mg PO QHS Qty: 0 0RF lisinopril 10 mg Tablet 10 mg PO DAILY Qty: 0 0RF hydrochlorothiazide 12.5 mg Capsule 12.5 mg PO DAILY Qty: 0 0RF aspirin 81 mg Tablet,Chewable 81 mg PO DAILYCM Qty: 0 0RF Continued loratadine [Claritin] 10 MG tablet 10 mg PO DAILY PRN PRN (Reason: Allergies) dexamethasone sodium phosphate 0.1 % drops 1 drp ophthalmic (eye) 4X/DAY dextroamphetamine-amph etamine 30 mg tablet 1 tab PO BID erythromycin 5 mg/gram (0.5 %) ointment 1 applic ophthalmic (eye) QPM Discontinued dextroamphetamine-amph etamine [Adderall] 15 MG tablet 25 mg PO BID clonidine HCl 0.1 mg tablet 0.1 mg PO Q6H PRN (Reason: hypertensive emergency) Qty: 10 0RF rizatriptan 10 mg tablet 10 mg PO Q2H PRN (Reason: migraine headache) Other Ambulatory Orders: 30 Day Event Recorder Preventi (Urgent) Timeframe: 1 Day Facility: [facility] - Location: Cardiovascular Services Ordered By: Dr. Vee Stuart Referrals / Follow Up: [facility] [Other] (A referral will be sent to [facility] neurology for follow-up) Care Physician,No Primary [Primary Care Provider] - ( -If you do not have a primary care physician of list of local primary care physicians can be provided for you upon discharge. Please ask for this list prior to discharge ) Disposition Disposition (needs filled in before D/C Order can be placed): Inpatient Rehab Unit/Facility 11/01/24 1430 Vee Stuart MD CC: Lydia Orantes; Sherry Luog; Ajay Johnson; Renee Cleveland MD; Sheeba Rodriguez MD; David Gale MD; Dr. Ehsan Uriarte MD; Dr. Nehemiah Haney DO; Dr. Kyle Ghosh MD; Dr. Leidy Mckinnon MD; Dr. Tong Rai MD; Dr. Reagan White MD; Dr. Juaquin Campos MD; Dr. Aaron Chavez DO; Dr. Hemanth Reyna MD; Dr. Natalya Arredondo MD (more content not included)... Normal [facility] Eosinophil percentageOrdered By: Sen Clarke on 11-01-2024 Eosinophils/100 WBC (Bld) 0.8 % 0-5 [facility] Erythrocyte distribution wid th ratioOrdered By: Sen Clarke on 11-01-2024 Erythrocyte distribution width (RBC) [Ratio] 12.0 % 11.6-14.6 [facility] Erythrocyte distribution wid th standard deviationOrdered By: Sen Clarke on 11-01-2024 Erythrocyte distribution width (RBC) [Ratio] 39.5 fl 35.1-43.9 [facility] Hematocrit Auto (Bld) [Volum e fraction]Ordered By: Sen Clarke on 11-01-2024 Hematocrit (Bld) [Volume fraction] 47.1 % High 37-47 [facility] Hemoglobin measurementOrdere d By: Sen Clarke on 11-01-2024 Hemoglobin (Bld) [Mass/Vol] 16.2 g/dL High 12.0-15.0 [facility] Immature granulocytes/100 WB C Auto (Bld)Ordered By: Sen Clarke on 11-01-2024 Immature granulocytes/100 WBC (Bld) 0.400 % 0.0-0.9 [facility] Comment on above: IG% - Immature Granu locytes (promyelocytes, myelocytes and metamyelocytes) > 1% indicates that a LEFT SHIFT is Present. MCV (mean corpuscular volume ) determinationOrdered By: Sen Clarke on 11-01-2024 MCV (RBC) [Entitic vol] 88.7 fL 81-99 [facility] Mean corpuscular hemoglobin (MCH) determinationOrdered By: Sen Clarke on 11-01-2024 MCH (RBC) [Entitic mass] 30.5 pg 27.0-32.0 [facility] Mean corpuscular hemoglobin concentration (MCHC) determinationOrdered By: Sen Clarke on 11-01-2024 MCHC (RBC) [Mass/Vol] 34.4 g/dL 32-36 [facility] Mean platelet volume determi nationOrdered By: Sen Clarke on 11-01-2024 Platelet mean volume (Bld) [Entitic vol] 10.4 fL 6.2-12.0 [facility] Monocyte percentageOrdered B y: Sen Clarke on 11-01-2024 Monocytes/100 WBC (Bld) 7.5 % 0-10 [facility] Neutrophil percentageOrdered By: Sen Clarke on 11-01-2024 Neutrophils/100 WBC (Bld) 69.5 % 47-70 [facility] Nucleated red blood cell per centageOrdered By: Sen Clarke on 11-01-2024 Nucleated RBC/100 WBC (Bld) [Ratio] 0 % 0-5 [facility] Platelet countOrdered By: Amita Clarke on 11-01-2024 Platelets (Bld) [#/Vol] 290 10*3/uL 150-450 [facility] RBC Auto (Bld) [#/Vol]Ordere d By: Seneli Clarke on 11-01-2024 RBC (Bld) [#/Vol] 5.31 10*6/uL 4.2-5.4 [facility] White blood cell (WBC) count Ordered By: Sen Clarke on 11-01-2024 WBC (Bld) [#/Vol] 12.7 10*3/uL High 4.4-11.0 [facility] Brain without Contraston Brain without Contrast [facility] Imaging Services [address] [place] [address] Brain without Contrast MR#: [id number] Acct: [id number] Name: DAYOJAYDA N Rep #: [id number] : 1985 F 39 From: Richi Andre MD PCP: Care Physician,No Primary Status: ADM IN Study: Brain without Contrast Date of Exam: 10/31/24 Exam# [id number] Ordering Dr: Nehemiah Haney DO EXAM: BRAIN WITHOUT CONTRAST CLINICAL HISTORY: ISCHEMIC CVA SUSPECTED ON CT. COMPARISON: None. TECHNIQUE: Multiplanar, multisequence MR images of the brain were obtained without gadolinium contrast material. FINDINGS: There is a large area of restricted diffusion in the right frontal and superior parietal precentral cortex and superior periventricular region, measuring 9.0 by 3.0 by 4.6 cm, with associated increased T2 signal, and decreased T1 signal components, consistent with a subacute infarct. There is a 0.6 cm focus of restricted diffusion in the left superior precentral cortex, axial image 25/26, which appears acute. There is a 0.8 cm old lacunar infarct in the deep white matter on the left. No cerebellar tonsillar ectopia. No sellar/suprasellar signal abnormalities. The ocular globes and intraorbital soft tissues are symmetrically unremarkable. Paranasal sinuses are essentially clear. MRI/Brain without Contrast IMPRESSION: There is a large area of restricted diffusion in the right frontal and superior parietal precentral cortex and superior periventricular region, measuring 9.0 by 3.0 by 4.6 cm, with associated increased T2 signal, and decreased T1 signal components, consistent with a subacute infarct, with acute components. There is a 0.6 cm focus of restricted diffusion in the left superior precentral cortex, axial image 25/26, which appears acute. There is a 0.8 cm old lacunar infarct in the deep white matter on the left. Critical results were discussed with Velia Parada by Thai at the time of dictation. [facility] CC: Dr. Nehemiah Haney, DO; No Primary Care Physician Carpenter Assembler: Signed Normal [facility] Calculated very low density lipoprotein (VLDL) cholesterol measurementOrdered By: Nehemiah Medrano on 10-31-2024 Calculated very low density lipoprotein (VLDL) cholesterol measurement 40 mg/dL 5-40 [facility] Echo Transesophageal (SUNDAY)on 10-31-2024 Echo Transesophageal (SUNDAY) [facility] Cardiovascular Services [address] [place] [address] Echo Transesophageal (SUNDAY) 11/01/24 0948 MR#: [id number] Acct: [id number] Name: JAYDA OSHEA Rep #: [id number] : 1985 39 From: Law Eduardo MD Attending Dr: Dr. Vee Stuart MD Status: DIS IN Ordering Dr: Sen Clarke MD Date: 10/31/24 Location: U Sex: F C Admitted: 10/30/24 Reason For Study Reason For Study: CVA Medication SUNDAY probe 6VT-D (SN [id number]) passed with minimal difficulty. No complications were noted. Cetacaine Topical [place] given X3 orally. Versed 2 mg given slow IVP. Fentanyl 50 mcg given slow IVP. Performed a rapid injection of agitated mix of 9 cc saline and 1cc air to assess for atrial septal defect. Left Ventricle Normal LV size. The left ventricular ejection fraction is 60 %. No regional wall motion abnormalities noted. Right Ventricle Normal RV size. Normal systolic function. Atria Bubble contrast study negative for right to left interatrial shunt. Normal left atrium. No thrombus is detected in the left atrial appendage. Normal right atrium. Mitral Valve Normal mitral valve. Tricuspid Valve Normal tricuspid valve. Aortic Valve Normal aortic valve. Trisinus/trileaflet aortic valve. Pulmonic Valve Normal pulmonic valve. Vessels Normal aortic root. Pericardium No pericardial effusion. ECHO/Echo Transesophageal (SUNDAY) Interpretation Summary Normal LV size. The left ventricular ejection fraction is 60 %. Bubble contrast study negative for right to left interatrial shunt. No thrombus is detected in the left atrial appendage. Ordering Physician: Sen Clarke Performed By: Kim Rodriguez RDCS 11/01/24 1628 Date Law Eduardo MD CC: Dr. Sen Clarke MD; Dr. Vee Stuart MD; No Primary Care Physician Date Dictated: 11/01/24 0948 Date Transcribed: 11/01/24 1628 Carpenter Assembler: Signed Normal [facility] Echocardiogram study reportO rdered By: Law Eduardo on 10-31-2024 Study report [facility] Cardiovascular Services [address] [place] [address] Echo Complete 10/31/24 1012 MR#: [id number] Acct: [id number] Name: JAYDA OSHEA Rep #:[id number] : 1985 39 From: Law Roque Attending Dr: Dr. Sen Clarke MD Status: ADM IN Ordering Dr: Nehemiah Haney DO Date: 10/30/24 Location: [facility] Sex: F C Admitted: 10/30/24 Reason For Study Reason For Study: TIA/Stroke Procedure This was a 2D Doppler, Color Flow transthoracic echocardiogram. Exam performed portable in patient room. Left Ventricle Normal LV size. The left ventricular ejection fraction is 65 %. Stage 1 diastolic dysfunction. No regional wall motion abnormalities noted. Right Ventricle Normal RV size. Normal systolic function. Atria Normal left atrium. Normal right atrium. Intact atrial septum. Bubble contrast study negative for right to left interatrial shunt. Mitral Valve Normal mitral valve. Tricuspid Valve Normal tricuspid valve. Aortic Valve Trisinus/trileaflet aortic valve. Pulmonic Valve Normal pulmonic valve. Great Vessels Normal aortic root. The pulmonary artery is normal size. Inferior vena cava collapse with respiration. Pericardium/Pleural No pericardial effusion. Medication Performed a rapid injection of agitated mix of 9 cc saline and 1cc air to assessfor atrial septal defect. MMode/2D Measurements & Calculations LVIDd: 4.8 cm IVSd: 1.2 cm Ao root diam: 2.8 cm LVIDs: 3.1 cm LVPWd: 1.3 cm FS: 36.0 % LAV(MOD-bp): 29.9 ml LVAd ap4: 27.0 cm2 SV(MOD-sp4): 48.8 ml LAV(MOD-bp) Indexed: 16.2 ml/m2 LVLd ap4: 8.4 cm SI(MOD-sp4): 26.4 ml/m2 LAV(MOD-sp2): 12.7 ml EDV(MOD-sp4): 74.7 ml LAV(MOD-sp4): 45.0 ml EDV(sp4-el): 73.9 ml LVAs ap4: 14.1 cm2 LVLs ap4: 7.0 cm ESV(MOD-sp4): 25.9 ml ESV(sp4-el): 24.1 ml EF(MOD-sp4): 65.3 % EF(sp4-el): 67.4 % SV(sp4-el): 49.9 ml LA A4 area: 17.0 cm2 LA dimension(2D): 3.2 cm RA A4 area: 9.6 cm2 Time Measurements MV dec time: 0.20 sec Doppler Measurements & Calculations MV E max les: 65.5 cm/sec Lat Peak E' Les: 10.8 cm/sec Med Peak E' Les: 10.6 cm/sec MV A max les: 69.8 cm/sec E/E' lat: 6.1 E/E' med: 6.2 MV E/A: 0.94 MV V2 max: 83.7 cm/sec MV dec slope: 331.8 cm/sec2 Ao V2 max: 134.2 cm/sec MV max P.8 mmHg Ao max P.2 mmHg MV V2 mean: 45.0 cm/sec Ao V2 mean: 96.2 cm/sec MV mean P.98 mmHg Ao mean P.2 mmHg MV V2 VTI: 27.6 cm Ao V2 VTI: 29.1 cm LV V1 max: 101.3 cm/sec PA V2 max: 89.4 cm/sec LV V1 max P.1 mmHg PA V2 mean: 63.0 cm/sec ECHO/Echo Complete Interpretation Summary Normal LV size. The left ventricular ejection fraction is 65 %. Bubble contrast study negative for right to left interatrial shunt. Intact atrial septum Stage 1 diastolic dysfunction. Ordering Physician: Nehemiah Haney Referring Physician: Felicita PCP Performed By: Sandhya Baker and Student 10/31/241658 Date _ Law Eduardo MD CC: Dr. Nehemiah Haney DO; Dr. Sen Clarke MD; No Primary Care Physician ~ Date Dictated: 10/31/24 1012 Date Transcribed: 10/31/241658 Carpenter Assembler: Signed [facility] Work Phone: Electrocardiogram reportOrde red By: Law Eduardo on 10-31-2024 EKG study [facility] Cardiovascular Services [address] [place] [address] 12 Lead EKG 10/30/242056 MR#: [id number] Acct: [id number] Name: JAYDA OSHEA Rep #:[id number] : 1985 39 From: Law Eduardo MD Attending Dr: Dr. Sen Clarke MD Status: ADM IN Ordering Dr: Domenico Silva DO Date: 10/30/24 Location: [facility] Sex: F C Admitted: 10/30/24 Test Reason : STROKE Blood Pressure : */* mmHG Vent. Rate : 73 BPM Atrial Rate : 73 BPM P-R Int : 152 ms QRS Dur : 94 ms QT Int : 428 ms P-R-T Axes : 33 26 51 degrees QTcB Int : 471 ms Normal sinus rhythm Normal ECG Confirmed by JAYCE SCHWAB, LAW ([id number]), book editor VELIA VILLA ([id number]) on 58:43:28 AM Referred By: Confirmed By: LAW EDUARDO MD 10/31/24 0843 Date _ Law Eduardo MD CC: Dr. Domenico Silva DO; Dr. Sen Clarke MD; No Primary Care Physician ~ Signed [facility] Work Phone: Folates,Serum (Folic Acid)on 10-31-2024 FOLATES,SERUM 7.69 ng/mL Normal 4.60-34.80 [facility] Comment on above: Result Comment: Hemo lysis, Results will be affected, Requires Recollection. Performed By: #### L 500.2500, L100.0100 #### [facility] [address] [place], [address] Hemoglobin A1con 10-31-2024 HbA1c (Bld) [Mass fraction] 5.4 % Normal <=5.6 [facility] Comment on above: Result Comment: Norm al < 5.7 % Prediabetic 5.7 - 6.4 % Diabetic >or= 6.5 % Please note range changes. Performed By: #### L 500.2500, L100.0100 #### [facility] [address] [place], [address] LDL calc ser/plasOrdered By: Nehemiah Medrano on 10-31-2024 Cholesterol in LDL [Mass/Vol] 108 mg/dL [facility] Comment on above: Xfgkukuliv=290-671 m g/dL & Higher Emhk=971 mg/dL or greaterFriedwald Equation for LDL-C Lipid Profileon 10-31-2024 CHOL:HDL 3.43 Normal [facility] Comment on above: Performed By: #### L 500.2500, L100.0100 #### [facility] [address] [place], [address] Cholesterol [Mass/Vol] 209 mg/dL High <=200 [facility] Comment on above: Result Comment: Chol esterol level, Desirable <200 mg/dL Borderline high cholesterol 200-239 mg/dL High cholesterol >=240 mg/dL Recommendations of the NCEP Adult Treatment Panel for the following risk-cutoff thresholds for the [place] population. Performed By: #### L 500.2500, L100.0100 #### [facility] [address] [place], [address] Cholesterol in HDL [Mass/Vol] 61 mg/dL Normal [facility] Comment on above: Result Comment: [place] onal Cholesterol Education Program (NCEP) guidelines: <40 mg/dL: Low HDL-cholesterol (major risk factor for CHD) >= 60 mg/dL: High HDL-cholesterol (negative risk factor for CHD) HDL-cholesterol is affected by a number of factors, e.g. smoking, exercise, hormones, sex and age. Performed By: #### L 500.2500, L100.0100 #### [facility] [address] [place], [address] Cholesterol in LDL [Mass/Vol] 108 mg/dL Normal [facility] Comment on above: Result Comment: Bord hqiaug=001-237 mg/dL Higher Byjd=204 mg/dL or greater Friedwald Equation for LDL-C Performed By: #### L 500.2500, L100.0100 #### [facility] [address] [place], [address] Cholesterol in VLDL [Mass/Vol] 40 mg/dL Normal 5-40 [facility] Comment on above: Performed By: #### L 500.2500, L100.0100 #### [facility] [address] [place], [address] Triglyceride [Mass/Vol] 201 mg/dL High [facility] Comment on above: Result Comment: The drugs N-Acetylcysteine and Metamizole may falsely depress this assay. Normal range: <150 mg/dL Borderline High: 150-199 mg/dL High: 200-499 mg/dL Very High: >500 mg/dL Performed By: #### L 500.2500, L100.0100 #### [facility] [address] [place], [address] MR/CON.PCM.NEon 10-31-2024 MR/CON.PCM.NE [facility] Medical Records Department [address] [place] [address] Consultation - Neurology 10/31/24 1253 MR#: [id number] Acct: [id number] Name: JAYDA OSHEA Maritza Rep #: [id number] : 1985 39 From: Tong Rai MD PCP: Care Physician,No Primary Status:ADM IN Location: [place] [address] Assessment and Plan: Stroke Assessment/Plan JAYDA OSHEA is a 39 F with a history of severe uncontrolled htn who presents for evaluation of left hemiparesi 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 Suspect that hypertension is the primary risk factor in this case, but an evaluation for cardioembolic causes is needed given that the CARMEN is a common cardioembolic territory. Neurological examination shows left hemiparesis, arm worse than leg. Neuroimaging shows a right CARMEN infarct and several scattered t2 hypertintensities that likely reflect more subtle prior ischemic injuries: - TTE. If possible, SUNDAY would be beneficial to rule out a cardiac thrombus or other embolic source if TTE is unremarkable. If evidence of PFO, would scan her lower extremities for DVT and could consider PFO closure with ROPE score of 6. - If no cardioembolic source noted, would get a 30 day event monitor to assess for AF at discharge. - BP management is likely to be the most importnat preventive effort going forward. In the short term, permissive hypertension is warranted given her subtle exam fluctuations. In the shelter, BP goal is < 130/85. If her exam is stable would slowly start adding oral anti-hypertensives in dany next several days - initially with low doses and slowly titrating up over the next several wees - Check a urine drug screen - Continue asa 81 indefinitely - Continue atorvasttin 80 indefinitely - Stressed the importance of stopping smoking - Call 911 with new stroke symptoms in the future - PT, OT, speech evals. Patient is likely a good acute rehab candidate. [Quick text reminder: .OSUtnk/.OSUnontnk] HPI Consult Data Date of Consult: 10/31/24 HPI Narrative HPI Narrative: JAYDA OSHEA, is a 39 F who presents for evaluation of left hemiparesis Ms. Oshea was in her normal state of health yesterday afternoon when she fell after trying to stand from a chair and found that her left leg and arm were weak. She eventually presented to the ED, outside of a thrombolysis window and her hemiparesis has persisted mostly unchanged since that time - she thinks that she may have some more moveent in her proximal arm than she did initially, but her hand movements may have decreased. She denies other focal neurolgoic symptoms. It appears she has likely had severe hypertension since she was about 14 years ago. She states that her typical BPs are in dany range of the 180s or above (although sometimes lower). She presented with an SBP around 220 and is currently in the 180s. She is just on clonidine as an outpatient and doesn't recall trialing other BP meds. No history of snoring, apneic episodes of excessive daytime somnolence. [facility] Medical History (Updated 10/31/24 @ 00:[address] Nehemiah Haney, DO) HTN (hypertension) ADHD Migraine Strain of great toe, right Contusion of right great toe without damage to nail Home Medications ???Medication ???Instructions ???Recorded ???Last Taken ???Type dextroamphetamine-amph etamine 15 25 mg PO BID 07/17/14 Unknown Hist ory mg tablet (Adderall) loratadine 10 mg tablet (Claritin) 10 mg PO DAILY PRN PRN Allergies 01/25/18 Unknown History clonidine HCl 0.1 mg tablet 0.1 mg PO Q6H PRN hypertensive Unknown Rx emergency #10 tabs dexamethasone sodium phosphate 0.1 1 drp ophthalmic (eye) 4X/DAY Unknown History % eye drops dextroamphetamine-amph etamine 30 1 tab PO BID 10/30/24 Unknown Hist ory mg tablet erythromycin 5 mg/gram (0.5 %) eye 1 applic ophthalmic (eye) QPM Unknown History ointment rizatriptan 10 mg tablet 10 mg PO Q2H PRN migraine headache 10/30/24 Unknown History Allergy/AdvReac Type Severity Reaction Status Date / Time codeine Allergy Unknown Verified 10/30/24 21:22 naproxen Allergy Hives Verified 10/30/24 21:22 Social History Smoking Status: Current every day smoker tobacco type: e-cigarettes Vital Signs Vital Signs Vital Signs: 10/30/24 20:41 10/30/24 20:50 10/30/24 20:50 Temperature 98 F Temperature Source Oral Pulse Rate 80 Pulse Strength Respiratory Rate 17 Respiratory Effort Respiratory Depth Respiratory Pattern Blood Pressure 222/121 H Blood Pressure Mean 154 Blood Pressure Source Blood Pressure Position Blood Pressure Location Pulse Ox 100 Oxygen Delivery Method Room Air Room Air 10/30/24 21:00 10/30/24 21:15 10/30/24 21:30 Temperature (more content not included)... Normal [facility] Magnetic resonance imaging r eportOrdered By: Richi Andre on 10-31-2024 Study report [facility] Imaging Services [address] [place] [address] Brain without Contrast MR#: [id number] Acct: [id number] Name: JAYDA OSHEA Rep #: [id number] : 1985 F 39 From: Ykoo Andre MD PCP: Care Physician,No Primary Status: ADM IN Study:Brain without Contrast Date of Exam: 10/31/24 Exam# [id number] Ordering Dr: Nehemiah Lorenz DO EXAM: BRAIN WITHOUT CONTRAST CLINICAL HISTORY: ISCHEMIC CVA SUSPECTED ON CT. COMPARISON: None. TECHNIQUE: Multiplanar, multisequence MR images of the brain were obtained without gadolinium contrast material. FINDINGS: There is a large area of restricted diffusion in the right frontal and superior parietal precentral cortex and superior periventricular region, measuring 9.0 by 3.0 by 4.6 cm, with associated increased T2 signal, and decreased T1 signal components, consistent with a subacute infarct. There is a 0.6 cm focus of restricted diffusion in the left superior precentral cortex, axial image 25/26, which appears acute. There is a 0.8 cm old lacunar infarct in the deep white matter on the left. No cerebellar tonsillar ectopia. No sellar/suprasellar signal abnormalities. The ocular globes and intraorbital soft tissues are symmetrically unremarkable. Paranasal sinuses are essentially clear. MRI/Brain without Contrast IMPRESSION: There is a large area of restricted diffusion in the right frontal and superior parietal precentral cortex and superior periventricular region, measuring 9.0 by 3.0 by 4.6 cm, with associated increased T2 signal, and decreased T1 signal components, consistent with a subacute infarct, with acute components. There is a 0.6 cm focus of restricted diffusion in the left superior precentral cortex, axial image 25/26, which appears acute. There is a 0.8 cm old lacunar infarct in the deep white matter on the left. Critical results were discussed with Velia Parada by Thai at the time ofdictation. Reading Location: [facility] CC: Dr. Nehemiah Haney DO; No Primary Care Physician ~ Carpenter Assembler: Signed [facility] Screening total cholesterol/ high density lipoprotein (HDL) cholesterol ratioOrdered By: Nehemiah Medrano on 10-31-2024 Cholesterol.total/Indy sterol in HDL [Mass ratio] 3.43 {ratio} [facility] Serum or plasma cholesterol in HDL measurement (mass/volume)Ordered By: Nehemiah Medrano on 10-31-2024 Cholesterol in HDL [Mass/Vol] 61 mg/dL >40 [facility] Comment on above: National Cholesterol Education Program (NCEP) guidelines:<40 mg/dL: Low HDL-cholesterol (major risk factor for CHD)>= 60 mg/dL: High HDL-cholesterol (negative risk factor for CHD)HDL-cholesterol is affected by a number of factors, e.g. smoking, exercise, hormones, sex and age. Serum or plasma cholesterol measurement (mass/volume)Ordered By: Nehemiah Medrano on 10-31-2024 Cholesterol [Mass/Vol] 209 mg/dL High <201 [facility] Comment on above: Cholesterol level, D esirable <200 mg/dLBorderline high cholesterol 200-239 mg/dLHigh cholesterol >=240 mg/dLRecommendations of the NCEP Adult Treatment Panel for the following risk-cutoff thresholds for the [place] population. Thyroid Stim Hormone (TSH)on 10-31-2024 TSH 3.230 uIU/mL Normal 0.300-4.200 [facility] Comment on above: Performed By: #### L 500.2500, L100.0100 #### [facility] [address] [place], [address] Triglycerides measurementOrd ered By: Nehemiah Medrano on 10-31-2024 Triglyceride [Mass/Vol] 201 mg/dL High <199 [facility] Comment on above: The drugs N-Acetylcy steine and Metamizole may falsely depress this assay. Normal range: <150 mg/dLBorderline High: 150-199 mg/dLHigh: 200-499 mg/dLVery High: >500 mg/dL Troponin T HS 4 HRon 025 Trop T High Sen Normal <=14 [facility] Comment on above: Result Comment: CANC ELLATION ORDER Performed By: #### L 501.4020 #### [facility] [address] [place], [place], [id number] Urine Drug Screen (VISTA)on 10-31-2024 AMPHETAMINES Positive Normal <1000 ng/mL [facility] Comment on above: Result Comment: If c onfirmation testing is needed, a separate order will be required to send out testing to the reference laboratory. Performed By: #### L 503.0106 #### [facility] [address] [place], [address] BARBITIURATES Negative Normal < 200 ng/mL [facility] Comment on above: Performed By: #### L 503.0106 #### [facility] [address] [place], [address] BENZODIAZIPINE Negative Normal < 200 ng/mL [facility] Comment on above: Performed By: #### L 503.0106 #### [facility] [address] [place], [address] BUP Ur Drug Scr Negative Normal < 200 ng/mL [facility] Comment on above: Performed By: #### L 503.0106 #### [facility] [address] [place], [address] COCAINE Negative Normal < 300 ng/mL [facility] Comment on above: Performed By: #### L 503.0106 #### [facility] [address] [place], [address] Fentanyl Negative Normal [facility] Comment on above: Performed By: #### L 503.0106 #### [facility] [address] [place], [address] METHADONE Negative Normal < 300 ng/mL [facility] Comment on above: Performed By: #### L 503.0106 #### [facility] [address] [place], [address] OPIATES Negative Normal < 300 ng/mL [facility] Comment on above: Performed By: #### L 503.0106 #### [facility] [address] [place], [place], [address] OXYCODONE Negative Normal < 100 ng/mL [facility] Comment on above: Performed By: #### L 503.0106 #### [facility] [address] [place], [place], [id number] PCP Negative Normal < 25 ng/mL [facility] Comment on above: Performed By: #### L 503.0106 #### [facility] [address] [place], [place], [id number] THC Positive Normal < 50 ng/mL [facility] Comment on above: Result Comment: If c onfirmation testing is needed, a separate order will be required to send out testing to the reference laboratory. Performed By: #### L 503.0106 #### [facility] [address] [place], [address] Vitamin B12on 10-31-2024 Cobalamin (Vitamin B12) [Mass/Vol] 484 pg/mL Normal 180-914 [facility] Comment on above: Performed By: #### L 503.0106 #### [facility] [address] [place], [place], [address] Vitamin B12 ser/plasOrdered By: Nehemiah Medrano on 10-31-2024 Cobalamin (Vitamin B12) [Mass/Vol] 484 pg/mL 180-914 [facility] 12 Lead EKGon 10-30-2024 12 Lead EKG [facility] Cardiovascular Services [address] [place] [address] 12 Lead EKG 10/30/242056 MR#: [id number] Acct: [id number] Name: JAYDA OSHEA Maritza Rep #: [id number] : 1985 39 From: Law Eduardo MD Attending Dr: Dr. Sen Clarke MD Status : ADM IN Ordering Dr: Domenico Silva DO Date: 10/30/24 Location: U Sex: F C Admitted: 10/30/24 Test Reason : STROKE Blood Pressure : */* mmHG Vent. Rate : 73 BPM Atrial Rate : 73 BPM P-R Int : 152 ms QRS Dur : 94 ms QT Int : 428 ms P-R-T Axes : 33 26 51 degrees QTcB Int : 471 ms Normal sinus rhythm Normal ECG Confirmed by JAYCE SCHWAB, LAW ([id number]), book editor ALLEN VELIA ([id number]) on 10/31/2024 8:43:28 AM Referred By: Confirmed By: LAW EDUARDO MD 10/31/24842 Date Law Eduardo MD CC: Dr. Domenico Silva, ; Dr. Sen Clarke MD; No Primary Care Physician Signed Normal [facility] Absolute lymphocyte countOrd ered By: Domenico Silva on 10-30-2024 Lymphocytes Auto (Unsp spec) [#/Vol] 1.57 10*3/uL 0.83-4.51 [facility] Absolute neutrophil countOrd ered By: Domenico Silva on 10-30-2024 Neutrophils (Bld) [#/Vol] 8.3 10*3/uL High 2.0-7.7 [facility] Activated partial thrombopla stin time (aPTT) in platelet poor plasma by coagulation aOrdered By: Domenico Silva on 10-30-2024 aPTT Coag (PPP) [Time] 25.8 s 24.1-36.2 [facility] Amphetamine detection with 1 000 ng/mL as cutoffOrdered By: Nehemiah Medrano on 10-30-2024 Amphetamines Screen method >1000 ng/mL Ql (U) Positive <1000 ng/mL [facility] Comment on above: If confirmation test ing is needed, a separate order will be required to send out testing to the reference laboratory. Amphetamines Screen method >1000 ng/mL Ql (U) Negative < 200 ng/mL [facility] Anion gap in Serum or Plasma Ordered By: Domenico Silva on 10-30-2024 Anion gap [Moles/Vol] 16 mmol/L High 5-15 [facility] Automated lymphocyte count a s percentage of total leukocytesOrdered By: Domenico Silva on 10-30-2024 Lymphocytes/100 WBC Auto (Unsp spec) 15.0 % Low 19-41 [facility] BUN/creatinine ratioOrdered By: Domenico Silva on 10-30-2024 Urea nitrogen/Creatinine [Mass ratio] 16.5 mg/mg 10- [facility] Basic Metabolic Profile (BMP )on 10-30-2024 BUN/CRE 16.5 RATIO Normal 10- [facility] Comment on above: Performed By: #### L 503.0106 #### [facility] [address] [place], [address] Calcium [Mass/Vol] 10.5 mg/dL Normal 7.6-11.0 [facility] Comment on above: Performed By: #### L 503.0106 #### [facility] [address] [place], [address] Chloride [Moles/Vol] 100 mmol/L Normal 98-108 [facility] Comment on above: Performed By: #### L 503.0106 #### [facility] [address] [place], [address] CO2 [Moles/Vol] 24.6 mmol/L Normal 21.0-32.0 [facility] Comment on above: Performed By: #### L 503.0106 #### [facility] [address] [place], [address] Creatinine [Mass/Vol] 0.80 mg/dL Normal 0.70-1.20 [facility] Comment on above: Performed By: #### L 503.0106 #### [facility] [address] [place], [address] ECRCL 93.24 ml/min Normal 50-250 [facility] Comment on above: Performed By: #### L 503.0106 #### [facility] [address] [place], [address] GAP 16 High 5-15 [facility] Comment on above: Performed By: #### L 503.0106 #### [facility] [address] [place], [address] GFR/1.73 sq M.predicted among non-blacks MDRD (S/P/Bld) [Vol rate/Area] 95 mL/min/{1.73_m2} Normal >60 [facility] Comment on above: Result Comment: mL/m in/1.73m2 CKD-EPI Creatinine Equation (2020) Performed By: #### L 503.0106 #### [facility] [address] [place], [address] Glucose [Mass/Vol] 92 mg/dL Normal 70-99 [facility] Comment on above: Performed By: #### L 503.0106 #### [facility] [address] [place], [address] Potassium [Moles/Vol] 3.4 mmol/L Normal 3.3-5.1 [facility] Comment on above: Performed By: #### L 503.0106 #### [facility] [address] [place], [address] Sodium [Moles/Vol] 141 mmol/L Normal 133-145 [facility] Comment on above: Performed By: #### L 503.0106 #### [facility] [address] [place], [address] Urea nitrogen [Mass/Vol] 13 mg/dL Normal 4-19 [facility] Comment on above: Performed By: #### L 503.0106 #### [facility] [address] [place], [address] Basophil percentageOrdered B y: Domenico Silva on 10-30-2024 Basophils/100 WBC (Bld) 0.5 % 0-1 [facility] CBC W/Diff, Automatedon 10-03 Absolute Lymph 1.57 X10 3/uL Normal 0.83-4.51 [facility] Comment on above: Performed By: #### L 503.0106 #### [facility] [address] [place], [address] Absolute Neut 8.3 X10 3/uL High 2.0-7.7 [facility] Comment on above: Performed By: #### L 503.0106 #### [facility] [address] [place], [address] Basophils/100 WBC (Bld) 0.5 % Normal 0-1 [facility] Comment on above: Performed By: #### L 503.0106 #### [facility] [address] [place], [address] Eosinophils/100 WBC (Bld) 0.4 % Normal 0-5 [facility] Comment on above: Performed By: #### L 503.0106 #### [facility] [address] [place], [address] Erythrocyte distribution width (RBC) [Ratio] 12.1 % Normal 11.6-14.6 [facility] Comment on above: Performed By: #### L 503.0106 #### [facility] [address] [place], [address] Hematocrit (Bld) [Volume fraction] 54.8 % High 37-47 [facility] Comment on above: Performed By: #### L 503.0106 #### [facility] [address] [place], [address] IG% 0.600 Normal 0.0-0.9 [facility] Comment on above: Result Comment: IG% - Immature Granulocytes (promyelocytes, myelocytes and metamyelocytes) > 1% indicates that a LEFT SHIFT is Present. Performed By: #### L 503.0106 #### [facility] [address] [place], [address] Lymphocytes/100 WBC (Bld) 15.0 % Low 19-41 [facility] Comment on above: Performed By: #### L 503.0106 #### [facility] [address] [place], [address] MCH (RBC) [Entitic mass] 30.4 pg Normal 27.0-32.0 [facility] Comment on above: Performed By: #### L 503.0106 #### [facility] [address] [place], [address] MCHC (RBC) [Mass/Vol] 33.8 g/dL Normal 32-36 [facility] Comment on above: Performed By: #### L 503.0106 #### [facility] [address] [place], [address] MCV (RBC) [Entitic vol] 90.1 fL Normal 81-99 [facility] Comment on above: Performed By: #### L 503.0106 #### [facility] [address] [place], [address] Monocytes/100 WBC (Bld) 4.2 % Normal 0-10 [facility] Comment on above: Performed By: #### L 503.0106 #### [facility] [address] [place], [address] Neutrophils/100 WBC (Bld) 79.3 % High 47-70 [facility] Comment on above: Performed By: #### L 503.0106 #### [facility] [address] [place], [address] Nucleated RBC (Bld) [#/Vol] 0 10*3/uL Normal 0-5 [facility] Comment on above: Performed By: #### L 503.0106 #### [facility] [address] [place], [address] Platelet mean volume (Bld) [Entitic vol] 10.0 fL Normal 6.2-12.0 [facility] Comment on above: Performed By: #### L 503.0106 #### [facility] [address] [place], [address] Platelets (Bld) [#/Vol] 311 10*3/uL Normal 150-450 [facility] Comment on above: Performed By: #### L 503.0106 #### [facility] [address] [place], [address] RBC (Bld) [#/Vol] 6.08 10*6/uL High 4.2-5.4 [facility] Comment on above: Performed By: #### L 503.0106 #### [facility] [address] [place], [address] RDW SD 39.9 fl Normal 35.1-43.9 [facility] Comment on above: Performed By: #### L 503.0106 #### [facility] [address] [place], [address] WBC (Bld) [#/Vol] 10.5 10*3/uL Normal 4.4-11.0 [facility] Comment on above: Performed By: #### L 503.0106 #### [facility] [address] [place], [address] Carbon dioxide, total [Moles /volume] in Central venous bloodOrdered By: Domenico Silva on 10-30-2024 CO2 [Moles/Vol] 24.6 mmol/L 21.0-32.0 [facility] Chest 1 Viewon 10-30-2024 Chest 1 View [facility] Imaging Services [address] [place] [address] Chest 1 View MR#: [id number] Acct: [id number] Name: JAYDA OSHEA Rep #: [id number] : 1985 F 39 From: Rich Hammond MD PCP: Care Physician,No Primary Status: REG ER Study: Chest 1 View Date of Exam: 10/30/24 Exam# [id number] Ordering Dr: Domenico Silva DO PROCEDURE: CHEST 1 VIEW 10/30/2024 REASON FOR EXAM: NEURO DEFICIT, ACUTE, STROKE SUSPECTED TECHNIQUE: Frontal view of the chest. COMPARISON: 11/27/2023 FINDINGS: Lungs/Pleura: Clear. Heart/Mediastinum: Normal in size. Bones/Soft tissues: Within normal limits. RAD/Chest 1 View IMPRESSION: No acute cardiopulmonary disease. Reading Location: [id number] CC: Dr. Domenico Silva, ; No Primary Care Physician Carpenter Assembler: Signed Normal [facility] Chloride assayOrdered By: Galen Silva on 10-30-2024 Chloride [Moles/Vol] 100 mmol/L 98-108 [facility] Echo Completeon 10-30-2024 Echo Complete [facility] [address] [place] [address] Echo Complete 10/31/24 1012 MR#: [id number] Acct: [id number] Name: JAYDA OSHEA Rep #: [id number] : 1985 39 From: Law Eduardo MD Attending Dr: Dr. Sen Clarke MD Status : ADM IN Ordering Dr: Nehemiah Haney DO Date: 10/30/24 Location: U Sex: F C Admitted: 10/30/24 Reason For Study Reason For Study: TIA/Stroke Procedure This was a 2D Doppler, Color Flow transthoracic echocardiogram. Exam performed portable in patient room. Left Ventricle Normal LV size. The left ventricular ejection fraction is 65 %. Stage 1 diastolic dysfunction. No regional wall motion abnormalities noted. Right Ventricle Normal RV size. Normal systolic function. Atria Normal left atrium. Normal right atrium. Intact atrial septum. Bubble contrast study negative for right to left interatrial shunt. Mitral Valve Normal mitral valve. Tricuspid Valve Normal tricuspid valve. Aortic Valve Trisinus/trileaflet aortic valve. Pulmonic Valve Normal pulmonic valve. Great Vessels Normal aortic root. The pulmonary artery is normal size. Inferior vena cava collapse with respiration. Pericardium/Pleural No pericardial effusion. Medication Performed a rapid injection of agitated mix of 9 cc saline and 1cc air to assess for atrial septal defect. MMode/2D Measurements Calculations LVIDd: 4.8 cm IVSd: 1.2 cm Ao root diam: 2.8 cm LVIDs: 3.1 cm LVPWd: 1.3 cm FS: 36.0 % LAV(MOD-bp): 29.9 ml LVAd ap4: 27.0 cm2 SV(MOD-sp4): 48.8 ml LAV(MOD-bp) Indexed: 16.2 ml/m2 LVLd ap4: 8.4 cm SI(MOD-sp4): 26.4 ml/m2 LAV(MOD-sp2): 12.7 ml EDV(MOD-sp4): 74.7 ml LAV(MOD-sp4): 45.0 ml EDV(sp4-el): 73.9 ml LVAs ap4: 14.1 cm2 LVLs ap4: 7.0 cm ESV(MOD-sp4): 25.9 ml ESV(sp4-el): 24.1 ml EF(MOD-sp4): 65.3 % EF(sp4-el): 67.4 % SV(sp4-el): 49.9 ml LA A4 area: 17.0 cm2 LA dimension(2D): 3.2 cm RA A4 area: 9.6 cm2 Time Measurements MV dec time: 0.20 sec Doppler Measurements Calculations MV E max les: 65.5 cm/sec Lat Peak E' Les: 10.8 cm/sec Med Peak E' Les: 10.6 cm/sec MV A max les: 69.8 cm/sec E/E' lat: 6.1 E/E' med: 6.2 MV E/A: 0.94 MV V2 max: 83.7 cm/sec MV dec slope: 331.8 cm/sec2 Ao V2 max: 134.2 cm/sec MV max P.8 mmHg Ao max P.2 mmHg MV V2 mean: 45.0 cm/sec Ao V2 mean: 96.2 cm/sec MV mean P.98 mmHg Ao mean P.2 mmHg MV V2 VTI: 27.6 cm Ao V2 VTI: 29.1 cm LV V1 max: 101.3 cm/sec PA V2 max: 89.4 cm/sec LV V1 max P.1 mmHg PA V2 mean: 63.0 cm/sec ECHO/Echo Complete Interpretation Summary Normal LV size. The left ventricular ejection fraction is 65 %. Bubble contrast study negative for right to left interatrial shunt. Intact atrial septum Stage 1 diastolic dysfunction. Ordering Physician: Nehemiah Haney Referring Physician: Felicita PCP Performed By: Sandhya Baker and Student 10/31/241658 Date Law Eduardo MD CC: Dr. Nehemiah Haney DO; Dr. Sen Clarke MD; No Primary Care Physician Date Dictated: 10/31/24 1012 Date Transcribed: 10/31/241658 Carpenter Assembler: Signed Normal [facility] Emergency Department Summary on 10-30-2024 Emergency Department Summary [facility] Medical Records Department [address] [place] [address] Emergency Department Summary 10/30/24 MR#: [id number] Acct: [id number] Name: JAYDA OSHEA Rep #: [id number] : 1985 39 From: Domenico Silva DO PCP: Care Physician,No Primary Status:ADM IN Location: [address] History of Present Illness Chief Complaint: Stroke Alert Informant: patient and EMS Onset/Context/Timing Onset: Today Context: Sudden Onset Timing: Continuous Quality and Location: Positive for Left Arm Weakness and Left Leg Weakness Onset: Last known well was 1530 today (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 Patient's last known well was 3:30 PM today. Patient has been having weakness of her left upper and lower extremities. Patient denies any difficulty with her speech. Patient admits to a headache and some nausea. Patient denies any vomiting. Patient denies any chest pain. Patient denies any fevers or chills. [facility] Medical History (Updated 10/31/24 @ 00:[address] Domenico Silva, DO) HTN (hypertension) ADHD Migraine Strain of great toe, right Contusion of right great toe without damage to nail Home Medications ???Medication ???Instructions ???Recorded ???Last Taken ???Type dextroamphetamine-amph etamine 15 25 mg PO BID 07/17/14 Unknown Hist ory mg tablet (Adderall) loratadine 10 mg tablet (Claritin) 10 mg PO DAILY PRN PRN Allergies 01/25/18 Unknown History clonidine HCl 0.1 mg tablet 0.1 mg PO Q6H PRN hypertensive Unknown Rx emergency #10 tabs dexamethasone sodium phosphate 0.1 1 drp ophthalmic (eye) 4X/DAY Unknown History % eye drops dextroamphetamine-amph etamine 30 1 tab PO BID 10/30/24 Unknown Hist ory mg tablet erythromycin 5 mg/gram (0.5 %) eye 1 applic ophthalmic (eye) QPM Unknown History ointment rizatriptan 10 mg tablet 10 mg PO Q2H PRN migraine headache 10/30/24 Unknown History Allergy/AdvReac Type Severity Reaction Status Date / Time codeine Allergy Unknown Verified 10/30/24 21:22 naproxen Allergy Hives Verified 10/30/24 21:22 Social History Smoking Status: Current every day smoker tobacco type: e-cigarettes EXAM Physical Exam Const Vital Signs: 10/30/24 20:41 10/30/24 20:50 10/30/24 20:50 Temperature 98 F Temperature Source Oral Pulse Rate 80 Respiratory Rate 17 Blood Pressure 222/121 H Blood Pressure Mean 154 Pulse Ox 100 Oxygen Delivery Method Room Air Room Air 10/30/24 21:00 10/30/24 21:15 10/30/24 21:30 Temperature Temperature Source Pulse Rate 70 68 Respiratory Rate 11 L 17 Blood Pressure 201/116 H 188/109 H 171/102 H Blood Pressure Mean 144 135 125 Pulse Ox 99 99 Oxygen Delivery Method Room Air Room Air 10/30/24 22:00 10/30/24 22:30 10/30/24 23:00 Temperature Temperature Source Pulse Rate 68 68 69 Respiratory Rate 15 14 15 Blood Pressure 172/97 H 160/107 H 162/99 H Blood Pressure Mean 122 124 120 Pulse Ox 98 99 100 Oxygen Delivery Method Room Air Room Air Room Air 10/30/24 23:14 Temperature 98 F Temperature Source Pulse Rate 72 Respiratory Rate 18 Blood Pressure 163/95 H Blood Pressure Mean 117 Pulse Ox 100 Oxygen Delivery Method Positive well nourished and well developed General Appearance ED: well developed and NAD HEENT Reports moist mucous membranes Neck supple and no JVD Resp normal respiratory effort and clear to auscultation bilaterally Cardio Rate: regular rate Rhythm: regular rhythm GI soft to palpation, non-tender and non-distended Extremity normal to inspection General Extremety ED: Negative for deformity or edema General Extremity: Negative for deformity or edema Neuro oriented x3 and CN's II-XII intact bilaterally Didier Coma Scale: document GCS findings Spontaneous Obeys Commands Oriented 15 Sensorium / Orientation: alert Speech: speech normal MDM MDM MDM Narrative Medical decision making narrative: Prehospital stroke alert was called. Upon arrival, patient was evaluated in the ambulance bay. Patient had a left upper and lower extremity weakness. Patient was taken immediately to CT scan for CT scan of the brain to assess for intracranial bleeding and stroke. CTA of the head and neck was also obtained to assess for large vessel occlusion and vascular stenosis. Chest x-ray will be obtained to assess for pneumonia or bronchitis. EKG will be obtained to assess for cardi (more content not included)... Normal [facility] Eosinophil percentageOrdered By: Domenico Silva on 10-30-2024 Eosinophils/100 WBC (Bld) 0.4 % 0-5 [facility] Erythrocyte distribution wid th ratioOrdered By: Domenico Silva on 10-30-2024 Erythrocyte distribution width (RBC) [Ratio] 12.1 % 11.6-14.6 [facility] Erythrocyte distribution wid th standard deviationOrdered By: Domenico Silva on 10-30-2024 Erythrocyte distribution width (RBC) [Ratio] 39.9 fl 35.1-43.9 [facility] Folate [Moles/volume] in Ser um or PlasmaOrdered By: Nehemiah Medrano on 10-30-2024 Folate [Moles/Vol] 7.69 ng/mL 4.60-34.80 [facility] Comment on above: Hemolysis, Results w ill be affected, Requires Recollection. Glomerular filtration rate ( GFR) estimation/1.73 sq m using serum, plasma, or whole bOrdered By: Domenico Silva on 10-30-2024 GFR/1.73 sq M.predicted among non-blacks MDRD (S/P/Bld) [Vol rate/Area] 95 mL/min/{1.73_m2} >60 [facility] Comment on above: mL/min/1.73m2 CKD-EP I Creatinine Equation (2020) H AND P Exam - [facility] 10-30-2024 H&P Exam - Hospitalist [facility] Medical Records Department [address] [place] [address] H P Exam - Hospitalist 10/30/24 2323 MR#: [id number] Acct: [id number] Name: JAYDA OSHEA Rep #: [id number] : 1985 39 From: Nehemiah Haney DO PCP: Care Physician,No Primary Status:ADM IN Location: [place] [address] HPI - General General Date of Admission: 10/30/24 Date of Service: 10/30/24 Chief Complaint: Acute Left-sided Weakness with Slurred Speech. HPI Narrative JAYDA OSHEA, is a 39 F with a past medical history of being overweight; with BMI of 29.3 this admission, essential hypertension; on prn clonidine, tobacco abuse, migraine headaches; on prn rizatriptan, ADHD; on dextroamphetamine-amph etamine BID and seasonal allergies; on loratadine who presents to [facility] ER complaining of acute Left-sided weakness with slurred speech. Ms. Oshea reports her symptoms began at approximately 3:30 PM earlier today when she developed a migraine headache with nausea yesterday and this a.m. but then she experienced the abrupt-onset of weakness in the Left arm and leg. She also admits to somewhat slurred speech with occassional muscle spasms. She states her symptoms were not made better or worse by anything. She denies related fever, chills, vomiting, abdominal pain, diarrhea, constipation, chest pain, palpitations, heart racing, lower extremity edema, dysuria, hematuria or rash. In the ER she was noted to have a highly elevated initial blood pressure of 222/121 mmHg with a corresponding brain CT without contrast that revealed left frontal lobe periventricular white matter focal hypodensity measuring 7mm x 7mm which may reflect lacunar infarction, however acute infarction is not entirely excluded followed by a CTA of the head and neck with IV contrast that revealed no acute large vessel occlusion or high-grade stenosis. The [facility] teleneurologist suspected ischemic CVA with a stroke NIHSS score of 11 and with thrombolytics not recommended since she was outside of the time window. She was also incidentally noted to have Polycythemia with hemoglobin of 18.5 g/dL present on admission. She was admitted to the PCU for ongoing care for status expected to extend beyond 2 midnights. [facility] Medical History (Updated 10/31/24 @ 00:[address] Nehemiah Haney, DO) HTN (hypertension) ADHD Migraine Strain of great toe, right Contusion of right great toe without damage to nail Home Medications ???Medication ???Instructions ???Recorded ???Last Taken ???Type dextroamphetamine-amph etamine 15 25 mg PO BID 07/17/14 Unknown Hist ory mg tablet (Adderall) loratadine 10 mg tablet (Claritin) 10 mg PO DAILY PRN PRN Allergies 01/25/18 Unknown History clonidine HCl 0.1 mg tablet 0.1 mg PO Q6H PRN hypertensive Unknown Rx emergency #10 tabs dexamethasone sodium phosphate 0.1 1 drp ophthalmic (eye) 4X/DAY Unknown History % eye drops dextroamphetamine-amph etamine 30 1 tab PO BID 10/30/24 Unknown Hist ory mg tablet erythromycin 5 mg/gram (0.5 %) eye 1 applic ophthalmic (eye) QPM Unknown History ointment rizatriptan 10 mg tablet 10 mg PO Q2H PRN migraine headache 10/30/24 Unknown History Allergy/AdvReac Type Severity Reaction Status Date / Time codeine Allergy Unknown Verified 10/30/24 21:22 naproxen Allergy Hives Verified 10/30/24 21:22 Social History Smoking Status: Current every day smoker tobacco type: e-cigarettes ROS ROS Narrative Review of Systems: Constitutional: Patient denies fever or chills. Eyes: Patient denies changes in vision or discharge from eyes. ENT: Patient denies runny nose, sore throat or ear pain. Resp: Patient denies shortness of breath or cough. CV: Patient denies chest pain, palpitations, heart racing or lower extremity edema. GI: Patient admits to nausea but she denies vomiting as per HPI. She denies abdominal pain, diarrhea or constipation. : Patient denies dysuria or hematuria. MSK: Patient admits to Left-sided weakness as per HPI. Skin: Patient denies rash, abscess, wounds or jaundice. Psych: Patient denies symptoms of uncontrolled depression or anxiety. Neuro: Patient admits to migraine headaches and sudden-onset Left-sided weakness with transient slurred speech as per HPI. Allergy: Patient denies lip swelling, tongue swelling or urticaria. Hematology: Patient denies easy bleeding or easy bruisability. Endocrinology: Patient denies polyuria, polydipsia, polyphagia or heat/cold intolerance. 14 point ROS otherwise negative except for positives noted above in HPI. Vital Signs Vital Signs Vital Signs: 10/30/24 20:41 10/30/24 20:50 10/30/24 20:50 Temperature 98 F Temperature Source Oral Pulse Rate 80 Respiratory Rate 17 (more content not included)... Normal [facility] Hematocrit Auto (Bld) [Volum e fraction]Ordered By: Domenico Silva on 10-30-2024 Hematocrit (Bld) [Volume fraction] 54.8 % High 37-47 [facility] Hemoglobin A1c percentageOrd ered By: Nehemiah Medrano on 10-30-2024 HbA1c (Bld) [Mass fraction] 5.4 % <5.7 [facility] Comment on above: Normal < 5.7 % Predi abetic 5.7 - 6.4 % Diabetic >or= 6.5 % Please note range changes. Hemoglobin measurementOrdere d By: Domenico Silva on 10-30-2024 Hemoglobin (Bld) [Mass/Vol] 18.5 g/dL Invalid Interpretation Code 12.0-15.0 [facility] Comment on above: CRITICAL VALUE PETERSON D TO [id number]/30/252058 Laquita Shell.RESULTS READ BACK BY SAME. Result Comment: CRIT ICAL VALUE CALLED TO MMARTIN 10/30/242058 Laquita Shell. RESULTS READ BACK BY SAME. Performed By: #### L 503.0106 #### [facility] [address] [place], [place], [address] Immature granulocytes/100 WB C Auto (Bld)Ordered By: Domenico Silva on 10-30-2024 Immature granulocytes/100 WBC (Bld) 0.600 % 0.0-0.9 [facility] Comment on above: IG% - Immature Granu locytes (promyelocytes, myelocytes and metamyelocytes) > 1% indicates that a LEFT SHIFT is Present. International normalized rat io (INR) calculationOrdered By: Domenico Silva on 10-30-2024 INR Coag (Bld) [Relative time] 0.9 {INR} [facility] L501.4021on 10-30-2024 Trop T High Sen < 6 Normal <=14 [facility] Comment on above: Performed By: #### L 503.0106 #### [facility] [address] [place], [place], [address] MCV (mean corpuscular volume ) determinationOrdered By: Domenico Silva on 10-30-2024 MCV (RBC) [Entitic vol] 90.1 fL 81-99 [facility] Mean corpuscular hemoglobin (MCH) determinationOrdered By: Domenico Silva on 10-30-2024 MCH (RBC) [Entitic mass] 30.4 pg 27.0-32.0 [facility] Mean corpuscular hemoglobin concentration (MCHC) determinationOrdered By: Domenico Silva on 10-30-2024 MCHC (RBC) [Mass/Vol] 33.8 g/dL 32-36 [facility] Mean platelet volume determi nationOrdered By: Domenico Silva on 10-30-2024 Platelet mean volume (Bld) [Entitic vol] 10.0 fL 6.2-12.0 [facility] Monocyte percentageOrdered B y: Domenico Silva on 10-30-2024 Monocytes/100 WBC (Bld) 4.2 % 0-10 [facility] Neutrophil percentageOrdered By: Domenico Silva on 10-30-2024 Neutrophils/100 WBC (Bld) 79.3 % High 47-70 [facility] No Panel InformationOrdered By: Nehemiah Medrano on 10-30-2024 Urine Buprenorphine Qualitative Negative < 200 ng/mL [facility] Urine Oxycodone Screen Negative < 100 ng/mL [facility] Nucleated red blood cell per centageOrdered By: Domenico Silva on 10-30-2024 Nucleated RBC/100 WBC (Bld) [Ratio] 0 % 0-5 [facility] Partial Thromboplast Timeon 10-30-2024 aPTT Coag (Bld) [Time] 25.8 s Normal 24.1-36.2 [facility] Comment on above: Performed By: #### L 503.0106 #### [facility] [address] [place], [place], [address] Platelet countOrdered By: Galen Silva on 10-30-2024 Platelets (Bld) [#/Vol] 311 10*3/uL 150-450 [facility] Potassium measurement (mass/ volume)Ordered By: Domenico Silva on 10-30-2024 Potassium (Unsp spec) [Mass/Vol] 3.4 mmol/L 3.3-5.1 [facility] Prothrombin Time w/INRon INR Coag (PPP) [Relative time] 0.9 {INR} Normal [facility] Comment on above: Performed By: #### L 503.0106 #### [facility] [address] [place], [place], [address] PT Coag (PPP) [Time] 11.8 s Normal 11.7-14.9 [facility] Comment on above: Performed By: #### L 503.0106 #### [facility] [address] [place], [place], [address] Prothrombin timeOrdered By: Domenico Silva on 10-30-2024 PT Coag (PPP) [Time] 11.8 s 11.7-14.9 [facility] Quantitative urine opiates m easurementOrdered By: Nehemiah Medrano on 10-30-2024 Opiates Ql (U) Negative < 300 ng/mL [facility] RBC Auto (Bld) [#/Vol]Ordere d By: Domenico Silva on 10-30-2024 RBC (Bld) [#/Vol] 6.08 10*6/uL High 4.2-5.4 [facility] STROKE Brain/Head without Co nton 10-30-2024 STROKE Brain/Head without Cont [facility] Imaging Services [address] [place] [address] STROKE Brain/Head without Cont MR#: [id number] Acct: [id number] Name: JAYDA OSHEA Rep #: [id number] : 1985 F 39 From: Jeanette Roque PCP: Care Physician,No Primary Status: REG ER Study: STROKE Brain/Head without Cont Date of Exam: 0 10/30/24 Exam# [id number] Ordering Dr: Domenico Silva DO PROCEDURE: STROKE BRAIN/HEAD WITHOUT CONT 10/30/2024 REASON FOR EXAM: NEURO DEFICIT, ACUTE, STROKE SUSPECTED TECHNIQUE: STROKE BRAIN/HEAD WITHOUT CONT Coronal and Sagittal reconstruction series were provided. One or more dose reduction techniques were used (e.g., Automated exposure control, adjustment of the mA and/or kV according to patient size, use of iterative reconstruction technique. RADIATION DOSE SUMMARY: DLP: 813 mGycm COMPARISON: none FINDINGS: Left frontal lobe periventricular white matter focal hypodensity measuring approximally 7 x 7 mm, which may reflect a lacunar infarction however acute infarction is not entirely excluded. There is no intracranial hemorrhage, or mass effect. There is no hydrocephalus or significant midline shift. No acute, depressed calvarial fractures. No large scalp hematomas. The paranasal sinuses are clear. CT/STROKE Brain/Head without Cont IMPRESSION: Left frontal lobe periventricular white matter focal hypodensity measuring approximally 7 x 7 mm, which may reflect a lacunar infarction however acute infarction is not entirely excluded. Dr. Silva was notified by Jeanette De Jesus at 9:01 pm EST on 10/30/24. Reading Location: [facility] CC: Dr. Domenico Silva, DO; No Primary Care Physician Carpenter Assembler: Signed Normal [facility] STROKE CTA Head AND Neck W/C onon 10-30-2024 STROKE CTA Head AND Neck W/Con [facility] Imaging Services [address] [place] [id number] STROKE CTA Head AND Neck W/Con MR#: [id number] Acct: [id number] Name: JAYDA OSHEA Rep #: [id number] : 1985 F 39 From: Jeanette Roque PCP: Care Physician,No Primary Status: REG ER Study: STROKE CTA Head AND Neck W/Con Date of Exam: 0 10/30/24 Exam# [id number] Ordering Dr: Domenico Silva DO PROCEDURE: STROKE CTA HEAD AND NECK W/CON 10/30/2024 REASON FOR EXAM: NEURO DEFICIT, ACUTE, STROKE SUSPECTED TECHNIQUE: STROKE CTA HEAD AND NECK W/CON Multiplanar Sagittal and Coronal images were obtained. CONTRAST: 100 mL of Isovue 370 One or more dose reduction techniques were used (e.g., Automated exposure control, adjustment of the mA and/or kV according to patient size, use of iterative reconstruction technique). RADIATION DOSE SUMMARY: DLP: 987 mGycm COMPARISON: none FINDINGS: The aortic arch demonstrates a type I configuration. The ostia of the great vessels are patent. There is conventional branching. The right CCA is patent. There is no significant stenosis of the right carotid bifurcation by NASCET criteria. The cervical right ICA is patent. The right MCA and right CARMEN appear patent. There is no large vessel occlusion. The left CCA is patent. There is no significant stenoses at the left carotid bifurcation by NASCET criteria. The cervical left ICA is patent. The left MCA and left CARMEN appear patent. There is no large vessel occlusion. The right vertebral artery arises from the right subclavian artery. The left vertebral artery arises from the left subclavian artery. Both vertebral arteries are patent. Both vertebral arteries join to form the patent basilar artery. Both posterior cerebral arteries arise from the tip of the basilar. Both proximal CONSUMER INSIGHT MANAGER segments are patent. There is no large vessel occlusion. There is no enhancing intracranial mass. Shotty cervical lymph nodes are identified. The thyroid gland is heterogeneous. The lung apices demonstrate no pneumothorax. No destructive osseous abnormalities identified. CT/STROKE CTA Head AND Neck W/Con IMPRESSION: No acute large vessel occlusion. No high grade stenosis. Reading Location: [facility] CC: Dr. Domenico Silva, DO; No Primary Care Physician Carpenter Assembler: Signed Normal [facility] Screening urine fentanyl silva surementOrdered By: Nehemiah Medrano on 10-30-2024 fentaNYL Screen Ql (U) Negative [facility] Serum creatinine measurement (mass/volume)Ordered By: Domenico Silva on 10-30-2024 Creatinine [Mass/Vol] 0.80 mg/dL 0.70-1.20 [facility] Serum glucose measurement (m ass/volume)Ordered By: Domenico Silva on 10-30-2024 Glucose [Mass/Vol] 92 mg/dL 70-99 [facility] Serum or plasma calcium sasha urement (mass/volume)Ordered By: Domenico Silva on 10-30-2024 Calcium [Mass/Vol] 10.5 mg/dL 7.6-11.0 [facility] Serum or plasma urea nitroge n measurement (mass/volume)Ordered By: Domenico Silva on 10-30-2024 Urea nitrogen [Mass/Vol] 13 mg/dL 4-19 [facility] Sodium levelOrdered By: Domenico Silva on 10-30-2024 Sodium [Moles/Vol] 141 mmol/L 133-145 [facility] TSH DL <= 0.005 mIU/L QnOrde red By: Nehemiah Medrano on 10-30-2024 TSH Qn 3.230 uIU/mL 0.300-4.200 [facility] Troponin T HS 2 HRon 025 Trop T High Sen < 6 Normal <=14 [facility] Comment on above: Performed By: #### L 503.0106 #### [facility] [address] [place], [place], [id number] Troponin T.cardiac [Mass/vol ume] in Serum or Plasma by High sensitivity methodOrdered By: Domenico Silva on 10-30-2024 Troponin T.cardiac High sensitivity method [Mass/Vol] < 6 ng/L <14 [facility] Troponin T.cardiac High sensitivity method [Mass/Vol] < 6 ng/L <14 [facility] Urine benzodiazepine levelOr dered By: Nehemiah Medrano on 10-30-2024 Benzodiazepines Ql (U) Negative < 200 ng/mL [facility] Urine cocaine levelOrdered B y: Nehemiah Medrano on 10-30-2024 Cocaine Ql (U) Negative < 300 ng/mL [facility] Urine avasz-9-odnemryataoccf abinol (THC) measurementOrdered By: Nehemiah Medrano on 10-30-2024 Cannabinoids Screen Ql (U) Positive < 50 ng/mL [facility] Comment on above: If confirmation test ing is needed, a separate order will be required to send out testing to the reference laboratory. Urine phencyclidine (PCP) de tectionOrdered By: Nehemiah Medrano on 10-30-2024 Phencyclidine Ql (U) Negative < 25 ng/mL [facility] White blood cell (WBC) count Ordered By: Domenico Silva on 10-30-2024 WBC (Bld) [#/Vol] 10.5 10*3/uL 4.4-11.0 [facility] Foot min 3 Viewson 5 Foot min 3 Views [facility] Imaging Services [address] [place], [place] [address] (931) Foot min 3 Views MR#: [id number] Acct: [id number] Name: JAYDA OSHEA Rep #: [id number] : 1985 F 38 From: Shalom lin MD PCP: Care Physician,No Primary Status: REG CLI Study: Foot min 3 Views Date of Exam: 08/19/24 Exam# [id number] Ordering Dr: Yefri Sotelo PROCEDURE: FOOT MIN [...] degree of soft tissue swelling. Reading Location: [place] [address] CC: No Primary Care Physician; STAN Sanches Carpenter Assembler: Signed Normal [facility] Urgent Care Visit Reporton 0 08-19-2024 Urgent Care Visit Report [facility] [address], [address] [place] [id number] OFFICE VISIT Date of Service: 08/19/24 MR#: [id number] Acct: [id number] Name: JAYDA OSHEA Rep #: [id number] : 1985 Provider: STAN Sanches Age/Sex: 38/F Location: [facility] [place] Status: Signed Intake Vital [...] Hives Medications ???Medication ???Instructions ???Recorded ???Confirmed ???Type dextroamphetamine-amph etamine 15 25 mg PO BID 07/17/14 08/19/24 [...] a HX of breaking her big toe. [facility] Medical History (Updated 08/19/24 @ 11:47 by Yefri PIERCE, PA) Strain of great toe, right Contusion of [...] as she describes. She has taken no suss-kxz-rsrsrrl products to assist. Pain is aggravated/and with weightbearing/ambulati on, alleviated with sit/rest. No other complaints at [...] same. Postop shoe and rodolfo taping as dispensed/applied/inst ructed today. Rest, ice, elevate, NSAIDs/acetaminophen as needed for symptomatic relief. Follow-up with orthopedics or podiatry in 5 to 7 days should symptoms not improve, sooner should symptoms only worsen or any other concerns develop. Patient states acknowledging understanding all the above. This note was generated with [employer] dictation software. It may contain incorrect words, spelling, and punctuation that were not noted in checking the note before signing. Orders: Orders Foot min 3 Views Today M79.671 - Pain in right foot 08/19/24 1149 Date Yefri Paniagua Signature: Date (if applicable) CC: Normal [facility] 12 Lead EKGon 11-27-2023 12 Lead EKG [facility] Cardiovascular Services [address] [place] [address] 12 Lead EKG 11/27/23 1143 MR#: [id number] Acct: [id number] Name: JAYDA OSHEA Rep #: [id number] : 1985 38 From: hCevy Gann MD Attending Dr: Status: DEP ER [...] rhythm Normal ECG Confirmed by Chevy Gann ([id number]), book editor KAVON BARONE ([id number]) on 11/29/2023 8:16:27 AM Referred By: BRANDY Confirmed By:Chevy Gann 11/29/23815 Date Chevy Gann MD CC: Dr. Lauri Puga, DO; No Primary Care Physician Signed Normal [facility] Basic Metabolic Profile (BMP )on 11-27-2023 BUN/CRE 15.9 RATIO Normal 10-20 [facility] Comment on above: Order Comment: REDRA W. PREVIOUS SPECIMEN REJECTED DUE TO HEMOLYSIS. 11/27/231247 1 Y Performed By: #### L 500.2500, L501.5425 #### [facility] Laboratory [address] [place], [address] CA,Total 9.1 mg/dL Normal 8.5-10.1 [facility] Comment on above: Order Comment: REDRA W. PREVIOUS SPECIMEN REJECTED DUE TO HEMOLYSIS. 11/27/231247 1 Y Performed By: #### L 500.2500, L501.5425 #### [facility] [address] [place], [address] Chloride [Moles/Vol] 107 mmol/L Normal 98-107 [facility] Comment on above: Order Comment: REDRA W. PREVIOUS SPECIMEN REJECTED DUE TO HEMOLYSIS. 11/27/231247 1 Y Performed By: #### L 500.2500, L501.5425 #### [facility] [address] [place], [address] CO2 [Moles/Vol] 28.0 mmol/L Normal 21.0-32.0 [facility] Comment on above: Order Comment: REDRA W. PREVIOUS SPECIMEN REJECTED DUE TO HEMOLYSIS. 11/27/231247 1 Y Performed By: #### L 500.2500, L501.5425 #### [facility] [address] [place], [address] Creatinine [Mass/Vol] 0.69 mg/dL Normal 0.55-1.02 [facility] Comment on above: Order Comment: REDRA W. PREVIOUS SPECIMEN REJECTED DUE TO HEMOLYSIS. 11/27/231247 1 Y Result Comment: The validity of the calculated GFR GFRAA in patients over 70 years has not been determined. Clinical correlation is essential. Performed By: #### L 500.2500, L501.5425 #### [facility] [address] [place], [address] ECRCL 111.41 ml/min Normal [facility] Comment on above: Order Comment: REDRA W. PREVIOUS SPECIMEN REJECTED DUE TO HEMOLYSIS. 11/27/231247 1 Y Performed By: #### L 500.2500, L501.5425 #### [facility] [address] [place], [address] EST GFR - AA 121 mL/min Normal >60 [facility] Comment on above: Order Comment: REDRA W. PREVIOUS SPECIMEN REJECTED DUE TO HEMOLYSIS. 11/27/231247 1 Y Result Comment: Afri can Guinean GFR Calc Performed By: #### L 500.2500, L501.5425 #### [facility] [address] [place], [address] GAP 3 Low 5-15 [facility] Comment on above: Order Comment: REDRA W. PREVIOUS SPECIMEN REJECTED DUE TO HEMOLYSIS. 11/27/231247 1 Y Performed By: #### L 500.2500, L501.5425 #### [facility] [address] [place], [address] GFR/1.73 sq M.predicted among non-blacks MDRD (S/P/Bld) [Vol rate/Area] 100 mL/min/{1.73_m2} Normal >60 [facility] Comment on above: Order Comment: REDRA W. PREVIOUS SPECIMEN REJECTED DUE TO HEMOLYSIS. 11/27/231247 1 Y Result Comment: Non- GFR Calc Performed By: #### L 500.2500, L501.5425 #### [facility] [address] [place], [address] Glucose [Mass/Vol] 107 mg/dL High 74-106 [facility] Comment on above: Order Comment: REDRA W. PREVIOUS SPECIMEN REJECTED DUE TO HEMOLYSIS. 11/27/231247 1 Y Result Comment: Fast ing Glucose result from 100 to 125 mg/dL suggests IMPAIRED HOMEOSTASIS per A.D.A. criteria. Performed By: #### L 500.2500, L501.5425 #### [facility] [address] [place], [address] Potassium [Moles/Vol] 4.1 mmol/L Normal 3.5-5.1 [facility] Comment on above: Order Comment: REDRA W. PREVIOUS SPECIMEN REJECTED DUE TO HEMOLYSIS. 11/27/231247 1 Y Performed By: #### L 500.2500, L501.5425 #### [facility] [address] [place], [address] Sodium [Moles/Vol] 138 mmol/L Normal 136-145 [facility] Comment on above: Order Comment: REDRA W. PREVIOUS SPECIMEN REJECTED DUE TO HEMOLYSIS. 11/27/231247 1 Y Performed By: #### L 500.2500, L501.5425 #### [facility] [address] [place], [address] Urea nitrogen [Mass/Vol] 11 mg/dL Normal 7-18 [facility] Comment on above: Order Comment: REDRA W. PREVIOUS SPECIMEN REJECTED DUE TO HEMOLYSIS. 11/27/231247 1 Y Performed By: #### L 500.2500, L501.5425 #### [facility] [address] [place], [address] BUN Normal 7-18 [facility] Comment on above: Order Comment: 1 Y Result Comment: This specimen has been REJECTED due to Laboratory criteria: [golden CHRISTENSEN]. NATALIA has been notified of need of recollection. 11/27/23 1246 Francisca Clapper Performed By: #### L 500.2500, L100.0100 #### [facility] [address] [place], [address] BUN/CRE Normal 10-20 [facility] Comment on above: Order Comment: 1 Y Result Comment: This specimen has been REJECTED due to Laboratory criteria: [golden CHRISTENSEN]. NATALIA has been notified of need of recollection. 11/27/23 1246 Francisca Clapper Performed By: #### L 500.2500, L100.0100 #### [facility] [address] [place], [address] CA,Total Normal 8.5-10.1 [facility] Comment on above: Order Comment: 1 Y Result Comment: This specimen has been REJECTED due to Laboratory criteria: [golden CHRISTENSEN]. NATALIA has been notified of need of recollection. 11/27/23 1246 Francisca Clapper Performed By: #### L 500.2500, L100.0100 #### [facility] [address] [place], [address] CL Normal 98-107 [facility] Comment on above: Order Comment: 1 Y Result Comment: This specimen has been REJECTED due to Laboratory criteria: [golden CHRISTENSEN]. NATALIA has been notified of need of recollection. 11/27/23 1246 Francisca Clapper Performed By: #### L 500.2500, L100.0100 #### [facility] [address] [place], [address] CO2 Normal 21.0-32.0 [facility] Comment on above: Order Comment: 1 Y Result Comment: This specimen has been REJECTED due to Laboratory criteria: [golden CHRISTENSEN]. NATALIA has been notified of need of recollection. 11/27/23 1246 Francisca Clapper Performed By: #### L 500.2500, L100.0100 #### [facility] [address] [place], [address] CREAT,SERUM Normal 0.55-1.02 [facility] Comment on above: Order Comment: 1 Y Result Comment: This specimen has been REJECTED due to Laboratory criteria: [golden CHRISTENSEN]. NATALIA has been notified of need of recollection. 11/27/23 1246 Francisca Clapper Performed By: #### L 500.2500, L100.0100 #### [facility] [address] [place], [address] EST GFR Normal >60 [facility] Comment on above: Order Comment: 1 Y Result Comment: This specimen has been REJECTED due to Laboratory criteria: [golden CHRISTENSEN]. NATALIA has been notified of need of recollection. 11/27/23 1246 Francisca Clapper Performed By: #### L 500.2500, L100.0100 #### [facility] [address] [place], [address] EST GFR - AA Normal >60 [facility] Comment on above: Order Comment: 1 Y Result Comment: This specimen has been REJECTED due to Laboratory criteria: [golden CHRISTENSEN]. NATALIA has been notified of need of recollection. 11/27/23 1246 Francisca Clapper Performed By: #### L 500.2500, L100.0100 #### [facility] [address] [place], [address] GAP Normal 5-15 [facility] Comment on above: Order Comment: 1 Y Result Comment: This specimen has been REJECTED due to Laboratory criteria: [golden CHRISTENSEN]. NATALIA has been notified of need of recollection. 11/27/23 1246 Francisca Clapper Performed By: #### L 500.2500, L100.0100 #### [facility] [address] [place], [address] GLU Normal 74-106 [facility] Comment on above: Order Comment: 1 Y Result Comment: This specimen has been REJECTED due to Laboratory criteria: [golden CHRISTENSEN]. NATALIA has been notified of need of recollection. 11/27/23 1246 Francisca Clapper Performed By: #### L 500.2500, L100.0100 #### [facility] [address] [place], [address] Potassium Normal 3.5-5.1 [facility] Comment on above: Order Comment: 1 Y Result Comment: This specimen has been REJECTED due to Laboratory criteria: [golden CHRISTENSEN]. NATALIA has been notified of need of recollection. 11/27/23 1246 Francisca Clapper Performed By: #### L 500.2500, L100.0100 #### [facility] [address] [place], [address] Basic Metabolic Profile (BMP) Normal 136-145 [facility] Comment on above: Order Comment: 1 Y Result Comment: This specimen has been REJECTED due to Laboratory criteria: [golden CHRISTENSEN]. NATALIA has been notified of need of recollection. 11/27/23 1246 Francisca Clapper Performed By: #### L 500.2500, L100.0100 #### [facility] [address] [place], [address] CBC W/Diff, Automatedon 11-02 Absolute Lymph 2.14 X10 3/uL Normal 0.83-4.51 [facility] Comment on above: Order Comment: REDRA W. PREVIOUS SPECIMEN REJECTED DUE TO CLOT' . 11/27/23 1222 Елена Lewis. Performed By: #### L 100.0100 #### [facility] [address] [place], [address] Absolute Neut 6.8 X10 3/uL Normal 2.0-7.7 [facility] Comment on above: Order Comment: REDRA W. PREVIOUS SPECIMEN REJECTED DUE TO CLOT' . 11/27/23 1222 Елена Lewis. Performed By: #### L 100.0100 #### [facility] [address] [place], [address] Basophils/100 WBC (Bld) 0.4 % Normal 0-1 [facility] Comment on above: Order Comment: REDRA W. PREVIOUS SPECIMEN REJECTED DUE TO CLOT' . 11/27/23 1222 Елена Lewis. Performed By: #### L 100.0100 #### [facility] [address] [place], [address] Eosinophils/100 WBC (Bld) 0.8 % Normal 0-5 [facility] Comment on above: Order Comment: REDRA W. PREVIOUS SPECIMEN REJECTED DUE TO CLOT' . 11/27/23 1222 Елена Joshua. Performed By: #### L 100.0100 #### [facility] [address] [place], [address] Erythrocyte distribution width (RBC) [Ratio] 11.2 % Low 11.6-14.6 [facility] Comment on above: Order Comment: REDRA W. PREVIOUS SPECIMEN REJECTED DUE TO CLOT' . 11/27/23 1222 Еленаmalcolm Lewis. Performed By: #### L 100.0100 #### [facility] [address] [place], [address] Hematocrit (Bld) [Volume fraction] 43.8 % Normal 37-47 [facility] Comment on above: Order Comment: REDRA W. PREVIOUS SPECIMEN REJECTED DUE TO CLOT' . 11/27/23 1222 Елена Lewis. Performed By: #### L 100.0100 #### [facility] [address] [place], [address] Hemoglobin (Bld) [Mass/Vol] 14.5 g/dL Normal 12.0-15.0 [facility] Comment on above: Order Comment: REDRA W. PREVIOUS SPECIMEN REJECTED DUE TO CLOT' . 11/27/23 1222 Елена Lewis. Performed By: #### L 100.0100 #### [facility] [address] [place], [address] IG% 0.600 Normal 0.0-0.9 [facility] Comment on above: Order Comment: REDRA W. PREVIOUS SPECIMEN REJECTED DUE TO CLOT' . 11/27/23 1222 Елена Joshua. Result Comment: IG% - Immature Granulocytes (promyelocytes, myelocytes and metamyelocytes) > 1% indicates that a LEFT SHIFT is Present. Performed By: #### L 100.0100 #### [facility] [address] [place], [address] Lymphocytes/100 WBC (Bld) 22.0 % Normal 19-41 [facility] Comment on above: Order Comment: REDRA W. PREVIOUS SPECIMEN REJECTED DUE TO CLOT' . 11/27/23 1222 Елена Joshua. Performed By: #### L 100.0100 #### [facility] [address] [place], [address] MCH (RBC) [Entitic mass] 30.1 pg Normal 27.0-32.0 [facility] Comment on above: Order Comment: REDRA W. PREVIOUS SPECIMEN REJECTED DUE TO CLOT' . 11/27/23 1222 Еленаmalcolm Lewis. Performed By: #### L 100.0100 #### [facility] [address] [place], [address] MCHC (RBC) [Mass/Vol] 33.1 g/dL Normal 32-36 [facility] Comment on above: Order Comment: REDRA W. PREVIOUS SPECIMEN REJECTED DUE TO CLOT' . 11/27/23 1222 Елена Lewis. Performed By: #### L 100.0100 #### [facility] [address] [place], [address] MCV (RBC) [Entitic vol] 91.1 fL Normal 81-99 [facility] Comment on above: Order Comment: REDRA W. PREVIOUS SPECIMEN REJECTED DUE TO CLOT' . 11/27/23 1222 Еленаmalcolm Lewis. Performed By: #### L 100.0100 #### [facility] [address] [place], [address] Monocytes/100 WBC (Bld) 6.7 % Normal 0-10 [facility] Comment on above: Order Comment: REDRA W. PREVIOUS SPECIMEN REJECTED DUE TO CLOT' . 11/27/23 1222 Елена Lewis. Performed By: #### L 100.0100 #### [facility] [address] [place], [address] Neutrophils/100 WBC (Bld) 69.5 % Normal 47-70 [facility] Comment on above: Order Comment: REDRA W. PREVIOUS SPECIMEN REJECTED DUE TO CLOT' . 11/27/23 1222 Елена Lewis. Performed By: #### L 100.0100 #### [facility] [address] [place], [address] Nucleated RBC (Bld) [#/Vol] 0 10*3/uL Normal 0-5 [facility] Comment on above: Order Comment: REDRA W. PREVIOUS SPECIMEN REJECTED DUE TO CLOT' . 11/27/23 [facility] Елена Lewis. Performed By: #### L 100.0100 #### [facility] [address] [place], [address] Platelet mean volume (Bld) [Entitic vol] 9.6 fL Normal 6.2-12.0 [facility] Comment on above: Order Comment: REDRA W. PREVIOUS SPECIMEN REJECTED DUE TO CLOT' . 11/27/23 1222 Елена Lewis. Performed By: #### L 100.0100 #### [facility] [address] [place], [address] Platelets (Bld) [#/Vol] 260 10*3/uL Normal 150-450 [facility] Comment on above: Order Comment: REDRA W. PREVIOUS SPECIMEN REJECTED DUE TO CLOT' . 11/27/23 1222 Елена Lewis. Performed By: #### L 100.0100 #### [facility] [address] [place], [address] RBC (Bld) [#/Vol] 4.81 10*6/uL Normal 4.2-5.4 [facility] Comment on above: Order Comment: REDRA W. PREVIOUS SPECIMEN REJECTED DUE TO CLOT' . 11/27/23 1222 Елена Lewis. Performed By: #### L 100.0100 #### [facility] [address] [place], [address] RDW SD 37.7 fl Normal 35.1-43.9 [facility] Comment on above: Order Comment: REDRA W. PREVIOUS SPECIMEN REJECTED DUE TO CLOT' . 11/27/23 1222 Елена Lewis. Performed By: #### L 100.0100 #### [facility] [address] [place], [address] WBC (Bld) [#/Vol] 9.7 10*3/uL Normal 4.4-11.0 [facility] Comment on above: Order Comment: REDRA W. PREVIOUS SPECIMEN REJECTED DUE TO CLOT' . 11/27/23 1222 Елена Joshua. Performed By: #### L 100.0100 #### [facility] [address] [place], [address] Absolute Neut Normal 2.0-7.7 [facility] Comment on above: Result Comment: This specimen has been REJECTED due to Laboratory criteria: Clotted. NATALIA has been notified of need of recollection. 11/27/23 1221 Елена Joshua Performed By: #### L 500.2500, L100.0100 #### [facility] [address] [place], [address] HCT Normal 37-47 [facility] Comment on above: Result Comment: This specimen has been REJECTED due to Laboratory criteria: Clotted. NATALIA has been notified of need of recollection. 11/27/23 1221 Елена Joshua Performed By: #### L 500.2500, L100.0100 #### [facility] [address] [place], [address] HGB Normal 12.0-15.0 [facility] Comment on above: Result Comment: This specimen has been REJECTED due to Laboratory criteria: Clotted. NATALIA has been notified of need of recollection. 11/27/23 1221 Елена Lewis Performed By: #### L 500.2500, L100.0100 #### [facility] [address] [place], [address] MCH Normal 27.0-32.0 [facility] Comment on above: Result Comment: This specimen has been REJECTED due to Laboratory criteria: Clotted. NATALIA has been notified of need of recollection. 11/27/23 1221 Елена Lewis Performed By: #### L 500.2500, L100.0100 #### [facility] [address] [place], [address] MCHC Normal 32-36 [facility] Comment on above: Result Comment: This specimen has been REJECTED due to Laboratory criteria: Clotted. NATALIA has been notified of need of recollection. 11/27/23 1221 Елена Lewis Performed By: #### L 500.2500, L100.0100 #### [facility] [address] [place], [address] MCV Normal 81-99 [facility] Comment on above: Result Comment: This specimen has been REJECTED due to Laboratory criteria: Clotted. NATALIA has been notified of need of recollection. 11/27/23 1221 Елена Lewis Performed By: #### L 500.2500, L100.0100 #### [facility] [address] [place], [address] NEUT% Normal 47-70 [facility] Comment on above: Result Comment: This specimen has been REJECTED due to Laboratory criteria: Clotted. NATALIA has been notified of need of recollection. 11/27/23 1221 Елена Lewis Performed By: #### L 500.2500, L100.0100 #### [facility] [address] [place], [address] PLT Normal 150-450 [facility] Comment on above: Result Comment: This specimen has been REJECTED due to Laboratory criteria: Clotted. NATALIA has been notified of need of recollection. 11/27/23 1221 Елена Lewis Performed By: #### L 500.2500, L100.0100 #### [facility] [address] [place], [address] RBC Normal 4.2-5.4 [facility] Comment on above: Result Comment: This specimen has been REJECTED due to Laboratory criteria: Clotted. NATALIA has been notified of need of recollection. 11/27/23 1221 Елена Lewis Performed By: #### L 500.2500, L100.0100 #### [facility] [address] [place], [address] RDW CV Normal 11.6-14.6 [facility] Comment on above: Result Comment: This specimen has been REJECTED due to Laboratory criteria: Clotted. NATALIA has been notified of need of recollection. 11/27/23 1221 Елена Lewis Performed By: #### L 500.2500, L100.0100 #### [facility] [address] [place], [address] RDW SD Normal 35.1-43.9 [facility] Comment on above: Result Comment: This specimen has been REJECTED due to Laboratory criteria: Clotted. NATALIA has been notified of need of recollection. 11/27/23 1221 Елена Lewis Performed By: #### L 500.2500, L100.0100 #### [facility] [address] [place], [address] WBC Normal 4.4-11.0 [facility] Comment on above: Result Comment: This specimen has been REJECTED due to Laboratory criteria: Clotted. NATALIA has been notified of need of recollection. 11/27/23 1221 Елена Lewis Performed By: #### L 500.2500, L100.0100 #### [facility] [address] [place], [address] CNOVon 11-27-2023 CNOV Office Visit (UCWSTR ) JAYDA OSHEA ([id number]) 1985 F Date Time Provider Department 11/27/23 11:30 AM VONNIE DICKERSON [facility] During your visit today, we recorded the following information about you: Blood pressure 190/110 Vonnie Dickerson APRN.CNP 11/27/2023 11:37 AM Signed Patient triaged at [facility]. Here today with sob, left arm pain, elevated bp. Bp 190/110. I will refer to ER. Patient declines squad. Patient in no visible distress at time of triage. Allergies As of Date: 11/27/2023 Noted Allergy Reaction NAPROSYN (NAPROXEN) 07/25/2014 4 - Hives SEASONAL ALLERGIES 06/30/2009 Comments: sinus reaction Date Reviewed: 05/15/2020 Reviewed by: Corinne Nichole ([facility]) - Fully Assessed Reason for Visit: Shortness of Breath [227] Primary Visit Diagnosis:Chest pressure [R07.89] Prescriptions as of 11/27/2023 - Lactobacillus acidophilus (FLORAJEN) 460 mg (20 billion cell) cap Take 1 capsule by mouth once daily. - metoprolol succinate ER (TOPROL XL) 50 mg 24 hr tablet Take 1 tablet by mouth once daily. - dextroamphetamine-amph etamine (ADDERALL) 20 mg tablet Take 1 tablet by mouth twice daily for 30 days. - dextroamphetamine-amph etamine (ADDERALL) 5 mg tablet Take 1 tablet [...] G89.29] 01/02/2019 Irritable bowel syndrome with both constipation* 9 Marijuana use [F12.90] 04/15/2019 Controlled substance agreement broken [Z91.148] 04/15/2019 Encounter Status:Closed by VONNIE DICKERSON on 11/27/23 Normal [facility] Chest 1 View (Portable)on Chest 1 View (Portable) [facility] Imaging Services [address] [place] [address] [id number] Chest 1 View (Portable) MR#: [id number] Acct: [id number] Name: JAYDA OSHEA Maritza Rep #: [id number] : 1985 F 38 From: Anuj Mancilla MD PCP: Care Physician,No Primary Status: REG ER Study: Chest 1 View (Portable) Date of Exam: 11/27/23 Exam# [id number] Ordering Dr: Lauri Puga DO [id number] STUDY: X-RAY CHEST REASON FOR EXAM: Female, [...] 13:12 EDT , CC: Dr. Lauri Puga, DO; No Primary Care Physician Carpenter Assembler: Signed Normal [facility] Emergency Department Summary on 11-27-2023 Emergency Department Summary [facility] Medical Records Department [address] [place] [address] Emergency Department Summary 11/27/23 MR#: [id number] Acct: [id number] Name: JAYDA OSHEA Rep #: [id number] : 1985 38 From: Lauri Puga DO [...] Medications ???Medication ???Instructions ???Recorded ???Last Taken ???Type dextroamphetamine-amph etamine 15 25 mg PO BID 07/17/14 Unknown [...] lesions note (more content not included)... Normal [facility] L501.4020on 11-27-2023 TROPONIN-I HS 7 pg/mL Normal 3.0-54.0 [facility] Comment on above: Result Comment: Plea se Note: New Test Units and Gender Specific Reference Ranges. For more information see Policy Stat Procedure [place] High Sensitivity Troponin (TNIH) and attachments. Performed By: #### L 501.4020 #### [facility] Laboratory [address] [place], [place], [address] L501.5425on 11-27-2023 TROPONIN-I HS 6 pg/mL Normal 3.0-54.0 [facility] Comment on above: Order Comment: RED W. PREVIOUS SPECIMEN REJECTED DUE TO HEMOLYSIS. 11/27/23 1248 1 Y Result Comment: Plea se Note: New Test Units and Gender Specific Reference Ranges. For more information see Policy Stat Procedure [place] High Sensitivity Troponin (TNIH) and attachments. Performed By: #### L 500.2500, L501.5425 #### [facility] [address] [place], [place], [address] Vital Signs Date Time Vital Sign Value Performing Clinician Leslye levin 11-01-2024 14:30-0400 Body temperature 97.2 [degF] No Primary Care Physician [facility] 11-01-2024 14:30-0400 Diastolic blood pressure 103 mm[Hg] No Primary Care Physician [facility] 11-01-2024 14:30-0400 Heart rate 77 /min No Primary Care Physician [facility] 11-01-2024 14:30-0400 Respiratory rate 16 /min No Primary Care Physician [facility] 11-01-2024 14:30-0400 SaO2% (BldA) [Mass fraction] 99 % No Primary Care Physician [facility] 11-01-2024 14:30-0400 Systolic blood pressure 183 mm[Hg] No Primary Care Physician [facility] 11-01-2024 13:00-0400 Body mass index (BMI) [Ratio] 30 kg/m2 No Primary Care Physician [facility] 10-31-2024 10:21-0400 Body height 162.56 cm No Primary Care Physician [facility] 10-31-2024 10:21-0400 Body weight 79.4 kg No Primary Care Physician [facility] 10-31-2024 00:00-0400 Diastolic blood pressure 99 mm[Hg] No Primary Care Physician [facility] 10-31-2024 00:00-0400 Heart rate 69 /min No Primary Care Physician [facility] 10-31-2024 00:00-0400 Respiratory rate 16 /min No Primary Care Physician [facility] 10-31-2024 00:00-0400 SaO2% (BldA) [Mass fraction] 100 % No Primary Care Physician [facility] 10-31-2024 00:00-0400 Systolic blood pressure 166 mm[Hg] No Primary Care Physician [facility] 10-30-2024 23:14-0400 Body temperature 98 [degF] No Primary Care Physician [facility] 10-30-2024 20:50-0400 Body height 162.56 cm No Primary Care Physician [facility] 10-30-2024 20:50-0400 Body mass index (BMI) [Ratio] 29.3 kg/m2 No Primary Care Physician [facility] 10-30-2024 20:50-0400 Body weight 77.5 kg No Primary Care Physician [facility] 08-19-2024 11:28-0400 Body height 162.56 cm No Primary Care Physician [facility] 08-19-2024 11:28-0400 Body mass index (BMI) [Ratio] 29.9 kg/m2 No Primary Care Physician [facility] 08-19-2024 11:28-0400 Body temperature 98.2 [degF] No Primary Care Physician [facility] 08-19-2024 11:28-0400 Body weight 79.03 kg No Primary Care Physician [facility] 08-19-2024 11:28-0400 Diastolic blood pressure 86 mm[Hg] No Primary Care Physician [facility] 08-19-2024 11:28-0400 Heart rate 94 /min No Primary Care Physician [facility] 08-19-2024 11:28-0400 SaO2% (BldA) [Mass fraction] 97 % No Primary Care Physician [facility] 08-19-2024 11:28-0400 Systolic blood pressure 122 mm[Hg] No Primary Care Physician [facility] 11-27-2023 11:34-0400 Diastolic blood pressure 110 mm[Hg] Vonnie Dickerson APRN.MANAGER OF INVESTIGATIONS Work Phone: [facility] 11-27-2023 11:34-0400 Systolic blood pressure 190 mm[Hg] Vonnie Dickerson APRN.MANAGER OF INVESTIGATIONS Work Phone: [facility] Encounters Encounter Date Encounter Type Care Provider Facility Start: 11-01-2024 Evaluation and management of inpatient Lori Mcdonougho Facility:[facility] Start: 11-01-2024 ambulatory [facility] Start: 10-31-2024 ambulatory Law Jayce Facility:[facility] Start: 10-31-2024 Non-patient / Non-visit [facility] Start: 10-30-2024 ambulatory David Baljinder [facility] Start: 10-30-2024 End: 11-01-2024 Evaluation and management of inpatient Dr. Nehemiah Haney DO -Progressive Care Unit Work Phone: Start: 08-19-2024 End: 08-19-2024 Patient encounter procedure Yefri Sotelo [facility] Work Phone: Start: 08-19-2024 End: 08-19-2024 ambulatory No Primary Care Physician [facility] Work Phone: Start: 08-19-2024 End: 08-19-2024 ambulatory Yefri PIERCE Facility:[facility] Start: 11-27-2023 End: 11-27-2023 Patient encounter procedure Vonnie Dickerson APRN.MANAGER OF INVESTIGATIONS Work Phone: [facility] Comment on above: Chest pressure (Prim michael Dx) Start: 11-27-2023 End: 11-27-2023 Emergency department patient visit No Primary Care Physician Facility:[facility] Start: 11-27-2023 End: 11-27-2023 ambulatory Facility:[facility] Procedures Date Procedure Procedure Detail Performing Clinician Start: 10-31-2024 MRI of brain without contrast No Primary Care Physician Start: 10-30-2024 Plain chest X-ray No Pr imary Care Physician Start: 10-30-2024 CT angiography of he ad and neck No Primary Care Physician Start: 10-30-2024 CT of head without contrast No Primary Care Physician Start: 10-30-2024 Estimated creatinine clearance No Primary Care Physician Start: 10-30-2024 Methadone measuremen t, urine No Primary Care Physician Start: 08-19-2024 X-ray of foot, three or more views No Primary Care Physician Plan of Treatment Date Care Activity Detail Author Start: 11-01-2024 Patient discharge [facility] Start: 10-31-2024 [facility] Start: 10-31-2024 Application of intermittent pneumatic compression device [facility] Start: 10-31-2024 Following clinical pathway protocol [facility] Start: 10-31-2024 Aspiration precautions [facility] Start: 10-31-2024 Cardiac monitoring [facility] Start: 10-31-2024 Catheterization of vein [facility] Start: 10-31-2024 Consultation [facility] Start: 10-31-2024 Elevation of head of bed [facility] Start: 10-31-2024 Exercises [facility] Start: 10-31-2024 Notification of physician [facility] Start: 10-31-2024 Oxygen therapy [facility] Start: 10-31-2024 End: 10-31-2024 Patient referral to dietitian [facility] Start: 10-31-2024 Referral to occupational therapist [facility] Start: 10-31-2024 Referral to service [facility] Start: 10-31-2024 Speech therapy assessment [facility] Start: 10-31-2024 Telemedicine consultation with patient [facility] Start: 10-31-2024 Tobacco use cessation education [facility] Start: 10-31-2024 End: 10-31-2024 [facility] Start: 10-31-2024 Vital signs measurements [facility] Start: 10-30-2024 MRI of brain without contrast Brain without Contrast [facility] Start: 10-30-2024 Hospital admission, emergency, from emergency room, medical nature [facility] Start: 10-30-2024 Admission procedure [facility] Start: 10-30-2024 Thyroid stimulating hormone measurement [facility] Start: 10-30-2024 Oxygen therapy [facility] Start: 10-30-2024 [facility] Start: 12-03-2023 Influenza vaccination Influenza Vaccine (#1) [facility] Start: 2023 Screening for malignant neoplasm of breast Mammogram Screening [facility] Start: 12-02-2022 Covid-19 Vaccine ( season) Covid-19 Vaccine ( season) [facility] Start: 07-23-2021 Screening for malignant neoplasm of cervix Cervical Cancer Screening [facility] Start: 04-09-2020 Annual PCP Team Chronic Disease Visit Annual PCP Team Chronic Disease Visit [facility] Start: 10-10-2002 Hepatitis B Vaccine (1 of 3 - 19+ 3-dose series) Hepatitis B Vaccine (1 of 3 - 19+ 3-dose series) [facility] Start: 10-10-2002 Urine microalbumin profile DTaP,Tdap,Td Vaccine (1 - Tdap) [facility] Start: 10-10-2001 Anxiety Screening Anxiety Screening [facility] Start: 10-10-2001 BP Controlled (<130/80) BP Controlled (<130/80) [facility] Start: 10-10-2001 Depression Screening Depression Screening [facility] Start: 10-10-2001 Hepatitis C screening Hepatitis C Screening [facility] Start: 10-10-2001 HIV screening HIV Screening [facility] Amphetamines [Presen ce] in Urine by Screen method >1000 ng/mL [facility] Anion gap in Serum o r Plasma [facility] Benzodiazepine measurement, urine [facility] BUN/Creatinine ratio [facility] Calcium [Mass/volume ] in Serum or Plasma [facility] Carbon dioxide, tota l [Moles/volume] in Central venous blood [facility] Cardiac event recording [facility] Cocaine measurement, urine [facility] Creatinine [Mass/vol ume] in Serum or Plasma [facility] fentaNYL [Presence] in Urine by Screen method [facility] Folate [Moles/volume ] in Serum or Plasma [facility] Glucose [Mass/volume ] in Serum or Plasma [facility] JAK2 gene [id number] [Presence] in Blood or Tissue by Molecular genetics method [facility] Measurement of renal function [facility] Methadone measuremen t, urine [facility] Patient Education Discharge Inst ructions for Stroke [facility] Work Phone: Phencyclidine [Prese nce] in Urine [facility] Potassium measurement [facility] Serum chloride measurement [facility] Sodium measurement [facility] Troponin T.cardiac [Mass/volume] in Serum or Plasma by High sensitivity method [facility] Urea nitrogen [Mass/volume] in Serum or Plasma [facility] Urine cannabinoid measurement [facility] Urine opiate measurement [facility] Payers Date Payer Category Payer Self-pay [id number] 2023 Unknown [id number] 2013 Medicaid [id number] 2013 Unknown [id number] Unknown [id number] 2.16.8 [id number] Unknown [id number] 2.16.8 [id number] Unknown [id number] 2.16.8 [id number] Unknown [id number] 2.16.8 [id number] Unknown [id number] 2.16.8 [id number] Unknown [id number] 2.16.8 [id number] Unknown [id number] 2.16.8 [id number] Unknown [id number] 2.16.8 [id number] Unknown [id number] 2.16.8 [id number] Unknown [id number] 2.16.8 [id number] Social History Date Type Detail Facility Start: 02-18-2019 Tobacco smoking stat us [facility]IS Ex-smoker [facility] Start: 01-02-2011 End: 01-03-2016 History of tobacco use Current smoker [facility] Start: 01-02-2011 End: 01-03-2016 History of tobacco use Cigarette Smoker [facility] Start: 02-18-2019 End: 03-11-2020 Cigarettes smoked current (pack per day) - Reported 0.5 [facility] Start: 02-18-2019 Tobacco use and exposure Smokeless tobacco non-user [facility] Start: 05-15-2020 Alcoholic beverage intake Current drinker of alcohol (finding) [facility] Start: 03-11-2020 End: 05-15-2020 Tobacco use panel [facility] National Score (1-10 0), lower number is lower risk Not on file [facility] Start: 1985 Sex assigned at Not on file [facility] Start: 11-27-2023 Tobacco smoking stat us MTIS Never smoked tobacco (finding) [facility] Start: 1985 Sex Assigned At Female [facility] Start: 10-30-2024 End: 11-01-2024 Tobacco smoking status NHIS Smokes tobacco daily (finding) [facility] Start: 11-01-2024 Tobacco Use Tobacco Use [facility] Goals Date Patient Goal Desired Activity /State Functional Status Date Assessment Result Facility 11-01-2024 Functional status Stand and pivot [facility] Work Phone: Mental Status Date Assessment Result Facility 11-01-2024 Cognitive function Voice/Name [facility] Work Phone: 10-30-2024 Cognitive function Awake;Alert;A ppropriate;Fol lows Commands [facility] Work Phone: Clinical Notes 11-27-2023 to 11-01-2024 Note Date & Type Note Facility 11-01-2024 Note [facility] Medical Records Department [address] [place] [address] History Physical Exam 11/01/24 1617 MR#: [id number] Acct: [id number] Name: JAYDA OSHEA Rep #: [id number] : 1985 39 From: Luis Ravi MD PCP: Care Physician,No Primary Status:ADM IN Location: [place] [address] HPI - General General Date of Admission: 11/01/24 Date of Service: 11/01/24 Chief Complaint: Here for 3 hours daily rehabilitation. HPI Narrative JAYDA OSHEA, is a 39 Female who presents with followin10/30/2024 [facility] ED stroke alert. Sudden left arm weakness, left leg weakness, slurred speech. Headache, nausea. Left sided weakness, started today, LUE weakness, LLE weakness. Hemoglobin 18.5, inr okay, ptt okay. CT brain left frontal lacunar infarct, CTA head/neck negative large vessel occlusion, negative high grade stenosis. NIHSS 11. Chest x-ray okay, EKG okay. Outside window for TNK, Labetalol given for elevated blood pressure. Reglan, Benadryl, IV fluids given for migraine headache, headache improved. 10/30/2024 Admit [facility]. MRI brain, Echo, Aspirin, Statin for stroke. Permissive hypertension for HTN/stroke. Tylenol, Morphine IV prn for migraine headache. Recommend smoking cessation. Hold Adderall. 10/30/2024 Echo Normal LV size. LVSF 65%. Bubble study negative. Stage 1 diastolic dysfunction. 10/31/2024 Migraine, NIHSS 13. Migraine unresolved with Maxalt. 10/31/2024 MRI brain showed large right sided acute/subacute infarct, small left sided acute infarct, old left lacunar infarct. 11/01/2024 30 day monitor. Lisinopril 10mg daily, HCTZ 12.5mg daily for Hypertension. Aspirin 81mg daily, Atorvastatin 80mg qhs lifelong. Stop Maxalt 2/2 stroke. Taper Adderall 2/2 stroke. 11/01/2024 Admit to with debility, here for 3 hours daily rehabilitation, strengthening, prior to disposition determination. [facility] Medical History (Updated 11/01/24 @ 16:[address] Luis Ravi MD) HTN (hypertension) ADHD Migraine Strain of great toe, right Contusion of right great toe without damage to nail Home Medications ???Medication ???Instructions ???Recorded ???Last Taken ???Type loratadine 10 mg tablet (Claritin) 10 mg PO DAILY PRN PRN Allergies 01/25/18 Unknown History dexamethasone sodium phosphate 0.1 1 drp ophthalmic (eye) 4X/DAY ey e 10/30/24 Unknown History % eye drops inflamattion dextroamphetamine-amphetamine 30 1 tab PO BID inflammation 10/30/24 Unknown History mg tablet erythromycin 5 mg/gram (0.5 %) eye 1 applic ophthalmic (eye) QHS ey e 10/30/24 10/31/24 History ointment aspirin 81 mg chewable tablet 81 mg PO DAILY heart health #0 0 11/01/24 11/01/24 Rx tabs atorvastatin 80 mg tablet 80 mg PO QHS cholesterol #0 tabs 0 11/01/24 10/31/24 Rx cyclobenzaprine 10 mg tablet 10 mg PO TID PRN PRN Muscle Spasm 11/01/24 11/01/24 13:15 Rx #0 tabs hydrochlorothiazide 12.5 mg capsule 12.5 mg PO DAILY blood pressure #0 11/01/24 Unknown Rx caps lisinopril 10 mg tablet 10 mg PO DAILY blood pressure #0 0 11/01/24 11/01/24 Rx tabs Allergy/AdvReac Type Severity Reaction Status Date / Time codeine Allergy Unknown Verified 10/30/24 21:22 naproxen Allergy Hives Verified 10/30/24 21:22 Family History (Updated 11/01/24 @ 16:[address] Luis Ravi MD) Mother Hypertension Depression Anxiety PTSD (post-traumatic stress disorder) Surgical History (Updated 11/01/24 @ 16:[address] Luis Ravi MD) History of section Social History (Updated 11/01/24 @ 16:[address] Luis Ravi MD) household members: children and other details: Lives with son. Smoking Status: Current every day smoker tobacco type: e-cigarettes alcohol intake: current alcohol intake frequency: 0-2 drinks per day Alcohol type: wine substance use type: does not use ROS Constitutional Constitutional: Reports fatigue and weakness; Denies chills, fever(s) or weight gain ENT HEENT: Denies headache(s), nasal congestion or nasal discharge Cardiovascular Cardiovascular: Denies chest pain or palpitations Respiratory/Chest Respiratory/Chest: Denies cough, excessive phlegm production or shortness of breath with exertion Gastrointestinal Gastrointestinal: Denies abdominal pain, nausea or vomiting Genitourinary Genitourinary: Denies dysuria Musculoskeletal Musculoskeletal: Denies joint pain or joint swelling Integumentary Integumentary: Denies rash or wounds Neurologic Neurologic: Denies focal weakness, numbness or tingling Psychiatric Psychiatric: Denies anxiety, auditory hallucinations, depression, homicidal ideation or suicidal ideation Indicators for Scoring Admitted with or Primary Diagnosis of CVA/Stroke: Yes Hx of CVA/Stroke: No Modified [place] Score MRS Score at time of Evaluation: 4-Moderate/severe disability NIHSS NIHSS 1a. L (more content not included)... [facility] 11-01-2024 Discharge summary [facility] 11-01-2024 Note [facility] Medical Records Department [address] [place] [address] Discharge Summary 11/01/24 1430 MR#: [id number] Acct: [id number] Name: DAYOJAYDA Murdock Maritza Rep #: [id number] : 1985 39 From: Vee Stuart MD PCP: Care Physician,No Primary Status:DIS IN Location: [facility] [id number] Providers Date of Admission: 10/30/24 Date of Discharge: 11/01/24 Primary Care Physician: No Primary Care Phys Consultations 10/31/24 01:12 Consult: Tele-Neurology Routine Consulting Provider: [facility] Reason for Consult: Acute Ischemic Stroke/TIA EMERGENT Consult: No MD Notified: Yes Date Notified: 10/30/24 Time Notified: 23:38 Method of Notification: ED Physician Initiated Nursing Unit Staff Notify [facility] of Tele-Neurology Consult: Yes Reason For Visit: ISCHEMIC CVA WITH LEFT SIDED WEAKNESS Diagnosis Discharge Diagnosis (1) Ischemic cerebrovascular accident (CVA): Status: Acute Code(s): I63.9 - Cerebral infarction, unspecified (2) Acute left-sided weakness: Status: Acute Code(s): R53.1 - Weakness (3) Migraine headache: Status: Acute Code(s): G43.909 - Migraine, unspecified, not intractable, without status migrainosus Qualifiers: Intractability: not intractable Migraine type: unspecified Status migrainosus presence: w ithout status migrainosus Qualified Code(s): G43.909 - Migraine, unspecified, not intractable, without status migrainosus Plan # Acute ischemic CVA # Hypertensive urgency # History of ADHD # Chronic tobacco use # History of chronic headaches/migraines following with neurology Medications at Discharge Home Medications loratadine 10 mg tablet (Claritin) 10 mg PO DAILY PRN PRN Allergies 01/25/18 dexamethasone sodium phosphate 0.1 % eye drops 1 drp ophthalmic (eye) 4X/DAY eye inflamattion 10/30/24 dextroamphetamine-amphetamine 30 mg tablet 1 tab PO BID inflammation 10/30/24 erythromycin 5 mg/gram (0.5 %) eye ointment 1 applic ophthalmic (eye) QHS eye 10/30/24 aspirin 81 mg chewable tablet 81 mg PO DAILY heart health #0 tabs 11/01/24 atorvastatin 80 mg tablet 80 mg PO QHS cholesterol #0 tabs 11/01/24 cyclobenzaprine 10 mg tablet 10 mg PO TID PRN PRN Muscle Spasm #0 tabs 11/01/24 hydrochlorothiazide 12.5 mg capsule 12.5 mg PO DAILY blood pressure #0 caps 11/01/24 lisinopril 10 mg tablet 10 mg PO DAILY blood pressure #0 tabs 11/01/24 Hospital Course Procedures Transesophageal Echo and Transthoracic echo Summary of Care Provided Minutes Spent on Discharge: 38 Hospital Course: # Acute ischemic CVA # Hypertensive urgency # History of ADHD # Chronic tobacco use # History of chronic headaches/migraines following with neurology 39-year-old female history of chronic headaches and migraines following with neurology, ADHD, tobacco use, untreated hypertension presented [facility] ED 10/30/2024 due to acute left-sided weakness with slurred speech. In the ED blood pressure 222/[address] without contrast revealed left frontal lobe periventricular white matter focal hypodensity measuring 7 mm x 7 mm which may reflect lacunar infarct but cannot rule out acute infarct. She then had CTA with no LVO or high-grade stenosis. [facility] teleneurology evaluated but no thrombolytics as patient was outside the window. She was admitted to PCU for further workup and management. MRI brain demonstrated large area of restricted diffusion in the right frontal and superior parietal precentral cortex and superior periventricular region measuring 9 x 3 x 4.6 cm with associated increased T2 signal and decreased T1 signal components consistent with subacute infarct with some acute components. There was also a 0.6 cm foci of restricted diffusion in the left superior precentral cortex which appeared acute and 0.8 cm old lacunar infarct in the deep white matter on the left. Patient had TTE with stage I diastolic dysfunction, normal EF and negative bubble study however given the extent of patient's infarcts a SUNDAY was recommended, this was completed with no acute abnormalities on 11/01/2024. Teleneurology advised in consultation that patient be on aspirin indefinitely and atorvastatin 80 indefinitely, advised smoking cessation and blood pressure management. They recommended slowly starting additional oral antihypertensives over several days with slow titration over several weeks. Also recommended a 30-day event monitor at discharge. Patient worked with physical therapy and Occupational Therapy and ultimately med rehab was recommended. Patient accepted and was able to be discharged 11/01/2024 MED rehab. Initially saw patient at bedside after her SUNDAY and she was very tired and would not wake up and engage, discussed with staff who said this was something that patient would intermittently do but with additional prompting would wake up and answer questions. When I went back to see patient (more content not included)... [facility] 10-31-2024 Consult note Note Date/Time October 31, 2024 1:03pm [facility] Medical Records Department [address] [place] [address] Consultation - Neurology 10/31/24 1253 MR#: [id number] Acct: [id number] Name: JAYDA OSHEA Rep #:[id number] : 1985 39 From: Tong Rai MD PCP: Care Physician,No Primary Status :ADM IN Location: [place] [address] Assessment and Plan: Stroke Assessment/Plan JAYDA OSHEA is a 39 F with a history of severe uncontrolled htn who presents for evaluation of left hemiparesi 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 Suspect that hypertension is the primary risk factor in this case, but an evaluation forcardioembolic causes is needed given that the CARMEN is a common cardioembolic territory. Neurological examination shows left hemiparesis, arm worse than leg. Neuroimaging shows a right CARMEN infarct and several scattered t2 hypertintensities that likely reflect more subtle prior ischemic injuries: - TTE. If possible, SUNDAY would be beneficial to rule out a cardiac thrombus or other embolic source if TTE is unremarkable. If evidence of PFO, would scan her lower extremities for DVT and could consider PFO closure with ROPE score of 6. - If no cardioembolic source noted, would get a 30 day event monitor to assess for AF at discharge. - BP management is likely to be the most importnat preventive effort going forward. In the short term, permissive hypertension is warranted given her subtle exam fluctuations. 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 If her exam is stable would slowly start adding oral anti-hypertensives in dany next several days - initially with low doses and slowly titrating up over the next several wees - Check a urine drug screen - Continue asa 81 indefinitely - Continue atorvasttin 80 indefinitely - Stressed the importance of stopping smoking - Call 911 with new stroke symptoms in the future - PT, OT, speech evals. Patient is likely a good acute rehab candidate. [Quick text reminder: .OSUtnk/.OSUnontnk] HPI Consult Data Date of Consult: 10/31/24 HPI Narrative HPI Narrative: JAYDA OSHEA, is a 39 F who presents for evaluation of left hemiparesis Ms. Oshea was in her normal state of health yesterday afternoon when she fell after tryingto stand from a chair and found that her left leg and arm were weak. She eventually presented to the ED, outside of a thrombolysis window and her hemiparesis has persisted mostly unchanged since that time - she thinks that shemay have some more moveent in her proximal arm than she did initially, but her hand movements may have decreased. She denies other focal neurolgoic symptoms. It appears she has likely had severe hypertension since she was about 16 years ago. She states that her typical BPs are in dany range of the 180s or above (although sometimes lower). She presented with an SBP around 220 and is currently in the 180s. She is just on clonidine as an outpatient and doesn't recall trialing other BP meds. No history of snoring, apneic episodes of excessive daytime somnolence. [facility] Medical History (Updated 10/31/24 @ 00:[address] Nehemiah Haney DO) HTN (hypertension) ADHD Migraine Strain of great toe, right Contusion of right great toe without damage to nail Home Medications ?Medication ?Instructions ?Recorded ?Last Taken ?Type dextroamphetamine-amphetamine 15 25 mg PO BID 07/17/14 Unknown History mg tablet (Adderall) loratadine 10 mg tablet (Claritin) 10 mg PO DAILY PRN PRN Allergies 01/25/18 Unknown History clonidine HCl 0.1 mg tablet 0.1 mg PO Q6H PRN hyperten sive 11/27/23 Unknown Rx emergency #10 tabs dexamethasone sodium phosphate 0.1 1 drp ophthalmic (e ye) 4X/DAY 10/30/24 Unknown History % eye drops dextroamphetamine-amphetamine 30 1 tab PO BID 10/30/24 Unknown History mg tablet erythromycin 5 mg/gram (0.5 %) eye 1 applic ophthalmic (eye) QPM 10/30/24 Unknown History ointment rizatriptan 10 mg tablet 10 mg PO Q2H PRN migraine he adache 10/30/24 Unknown History Allergy/AdvReac Type Severity Reaction Status Date / Time codeine Allergy Unknown Verified 10/30/24 21:22 naproxen Allergy Hives Verified 10/30/24 21:22 Social History Smoking Status: Current every day smoker tobacco type: e-cigarettes Vital Signs Vital Signs Vital Signs: 10/30/24 20:41 10/30/24 20:50 10/30/24 20:50 Temperature 98 F Temperature Source Oral Pulse Rate 80 Pulse Strength Respiratory Rate 17 Respiratory Effort Respiratory Depth Respiratory Pattern Blood Pressure 222/121 H Blood Pressure Mean 154 Blood Pressure Source Blood Pressure Position Blood Pressure Location Pulse Ox 100 Oxygen Delivery Method Room Air Room Air 10/30/24 21:00 10/30/24 21:15 10/30/24 21:30 Temperature Temperature Source Pulse Rate 70 68 Pulse Strength Respiratory Rate 11 L 17 Respiratory Effort Respiratory Depth Respiratory Pattern Blood Pressure 201/116 H 188/109 H 171/102 H Blood Pressure Mean 144 135 125 Blood Pressure Source Blood Pressure Position Blood Pressure Location Pulse Ox 99 99 Oxygen Delivery Method Room Air Room Air 10/30/24 22:00 10/30/24 22:30 10/30/24 23:00 Temperature Temperature Source Pulse Rate 68 68 69 Pulse Strength Respiratory Rate 15 14 15 Respiratory Effort Respiratory Depth Respiratory Pattern Blood Pressure 172/97 H 160/107 H 162/99 H Blood Pressure Mean 122 124 120 Blood Pressure Source Blood Pressure Position Blood Pressure Location Pulse Ox 98 99 100 Oxygen Delivery Method Room Air Room Air Room Air 10/30/24 23:14 10/31/24 00:00 10/31/24 00:30 Temperature 98 F 98.2 F Temperature Source Oral Pulse Rate 72 69 67 Pulse Strength Respiratory Rate 18 16 16 Respiratory Effort Respiratory Depth Respiratory Pattern Blood Pressure 163/95 H 166/99 H 170/105 H Blood Pressure Mean 117 121 126 Blood Pressure Source Monitor Blood Pressure Position Supine Blood Pressure Location Left Arm Pulse Ox 100 100 100 Oxygen Delivery Method Room Air 10/31/24 01:30 10/31/24 02:00 10/31/24 06:00 Temperature 98.2 F 98.5 F Temperature Source Oral Oral Pulse Rate 74 73 Pulse Strength Respiratory Rate 16 16 Respiratory Effort Normal Respiratory Depth Normal Respiratory Pattern Normal Blood Pressure 157/110 H 118/84 H Blood Pressure Mean 125 95 Blood Pressure Source Monitor Monitor Blood Pressure Position Semi-Fowlers Supine Blood Pressure Location Left Arm Left Arm Pulse Ox 99 99 Oxygen Delivery Method Room Air Room Air Room Air 10/31/24 06:00 10/31/24 08:13 10/31/24 08:17 Temperature Temperature Source Pulse Rate 62 Pulse Strength Respiratory Rate Respiratory Effort Normal Respiratory Depth Normal Respiratory Pattern Normal Blood Pressure Blood Pressure Mean Blood Pressure Source Blood Pressure Position Blood Pressure Location Pulse Ox Oxygen Delivery Method Room Air Room Air 10/31/24 09:35 10/31/24 10:00 Temperature 98.2 F Temperature Source Oral Pulse Rate 85 Pulse Strength Normal (2+) Respiratory Rate 16 Respiratory Effort Respiratory Depth Respiratory Pattern Blood Pressure 187/94 H Blood Pressure Mean 125 Blood Pressure Source Monitor Blood Pressure Position Semi-Fowlers Blood Pressure Location Left Forearm Pulse Ox 95 Oxygen Delivery Method Room Air Weight Weight: 79.4 kg Body Mass Index (BMI) 30.0 Physical Exam Narrative Severe left hemiparesis, arm worse than leg with a hemisensory deficit. Lab / Micro Data 10/30/24 20:40 10/30/24 20:40 Labs: Laboratory Results - last 24 hr 10/30/24 20:40: WBC 10.5, RBC 6.08 H, Hgb 18.5 H*, Hct 54.8 H, MCV 90.1, MCH 30.4, MCHC 33.8, RDW Std Deviation 39.9, RDW Coeff of Maria Teresa 12.1, Plt Count 311, MPV 10.0, Immature Gran % (Auto) 0.600, Neut % (Auto) 79.3 H, Lymph % (Auto) 15.0 L, [place] % (Auto) 4.2, Eos % (Auto) 0.4, Baso % (Auto) 0.5, Absolute Neuts (auto) 8.3 H, Absolute Lymphs (auto) 1.57, Nucleated RBC % 0, PT 11.8, INR 0.9, APTT 25.8, Sodium 141, Potassium 3.4, Chloride 100, Carbon Dioxide 24.6, Anion Gap 16 H, BUN 13, Creatinine 0.80, Estim Creat Clear Calc 93.24, Est GFR (MDRD) Non-Af 95, BUN/Creatinine Ratio 16.5, Glucose 92, Calcium 10.5, Troponin T High Sens < 6 10/30/24 22:45: Hemoglobin A1c 5.4, Troponin T Hi Sens 2 Hr < 6, TSH 3.230 10/30/24 23:50: Serum Folate 7.69 10/31/24 06:38: Triglycerides 201 H, Cholesterol 209 H, LDL Cholesterol, Calc 108, VLDL Cholesterol 40, HDL Cholesterol 61, Cholesterol/HDL Ratio 3.43, Vitamin B12 484 Imaging Radiology Impression Brain CT 10/30/24 20:46 IMPRESSION: Left frontal lobe periventricular white matter focal hypodensity measuring approximally 7 x 7 mm, which may reflect a lacunar infarction however acute infarction is not entirely excluded. Dr. Silva was notified by Jeanette De Jesus at 9:01 pm EST on 10/30/24. Reading Location: [facility] Head/Neck CTA 10/30/24 20:52 IMPRESSION: No acute large vessel occlusion. No high grade stenosis. Reading Location: [facility] Chest X-Ray 10/30/24 21:41 IMPRESSION: No acute cardiopulmonary disease. Reading Location: [facility] Brain MRI 10/31/24 06:00 IMPRESSION: There is a large area of restricted diffusion in the right frontal and superior parietal precentral cortex and superior periventricular region, measuring 9.0 by 3.0 by 4.6 cm, with associated increased T2 signal, and decreased T1 signal components, consistent with a subacute infarct, with acute components. There is a 0.6 cm focus of restricted diffusion in the left superior precentral cortex, axial image , which appears acute. There is a 0.8 cm old lacunar infarct in the deep white matter on the left. Critical results were discussed with Velia Parada by Thai at the time ofdictation. Reading [facility] Active Medications Active Medications Active Medications: Current Medications Generic Name Dose Route Start Last Admin Trade Name Freq PRN Reason Stop Dose Admin Acetaminophen 650 mg 10/31/24 01:12 10/31/24 06:35 Acetaminophen 325 Mg Tablet PO 650 mg Q4H PRN PRN Administration Pain 1-10 Or Fever>99.6 Amphetamine/Dextroamphetamine 30 mg 10/31/24 10:00 10/31/24 12:07 Dextroamphetamine/Amphetamine 30 Mg Tablet PO 30 mg BID MARIN Administration Aspirin 81 mg 10/31/24 08:00 10/31/24 12:07 Aspirin 81 Mg Tab.Chew PO 81 mg DAILYCM MARIN Administration Atorvastatin Calcium 80 mg 10/30/24 23:43 10/31/24 01:31 Atorvastatin Calcium 80 Mg Tablet PO 80 mg QHS MARIN Administration Cyclobenzaprine HCl 10 mg 10/31/24 02:24 10/31/24 03:00 Cyclobenzaprine Hcl 10 Mg Tablet PO 10 mg TID PRN PRN Administration MUSCLE SPASM Dexamethasone Sodium Phosphate 1 ml 10/31/24 10:00 10/31/24 12:07 Dexamethasone Sodium Phosphate 5 Ml Drops OPHTHALMIC 1 ml 4X/DAY MARIN Administration Erythromycin 1 applic 10/31/24 22:00 Erythromycin Base 1 Opth.Tube OPHTHALMIC QHS MARIN Hydralazine HCl 5 mg 10/31/24 01:12 Hydralazine 20 Mg/Ml Vial IV 11/01/24 01:12 Q30M PRN maintain BP parameters with HR <60 Sodium Chloride 1,000 mls @ 70 mls/hr 10/30/24 23:45 10/31/24 09:56 IV 10/31/24 14:02 70 mls/hr .[id number] MARIN Infusion Labetalol HCl 10 - 20 mg 10/31/24 01:12 Labetalol 20 Mg/4 Ml Vial IV 11/01/24 01:12 Q10M PRN PRN maintain BP parameters with HR >/=60 Loratadine 10 mg 10/31/24 01:12 Loratadine 10 Mg Tablet PO DAILY PRN PRN Allergies Sodium Chloride 10 - 40 ml 10/31/24 01:16 0.9% Saline Lock 10 Ml Syringe IV UD PRN SALINE FLUSH NIHSS NIHSS Nursing Documentation NIHSS Nursing Documentation: NIHSS: Ischemic Stroke/TIA Start: 10/31/24 01:12 Text: For PCU Patients: NIH and Neuro Check every 4 Status: Active hours, PRN and with change in RN caregiver. Freq: [id number] Protocol: Activity Type Activity Date Activity User E-sign Co-sign Detail Recorded Client Recorded Date Recorded By Document 10/31/24 10:00 TERESA [id number] 10/31/24 10:07 TERESA 10/31/24 10:00 NIH Stroke Scale [NIHSS] A score of 0 is normal or asymptomatic . Total possible score is 42. Inpatient: RN or Physician to activate a stroke alert for onset of new stroke symptoms or with NIHSS increase >/= 3 points. Following change in neurological status, NIHSS will be performed per physician order or more frequently PRN. -1a. Level of Consciousness 1 - Not alert; Arousable by minor stimuli to obey, answer & respond -1b. LOC Questions 0 - Answers BOTH questions correctly -1c. LOC Commands 0 - Performs BOTH tasks correctly -2. Best Gaze 0 - Normal -3. Visual 0 - No visual loss -4. Facial Palsy 1 - Minor paralysis ( flattened nasolabial fold , asymmetry on smiling) -5a. Left Arm 4 - No movement -5b. Right Arm 0 - No drift; arm holds 90 ( or 45) degrees for full 10 seconds -6a. Left Leg 4 - No movement -6b. Right Leg 0 - No drift; leg holds 30- degree position for full 5 seconds -7. Limb Ataxia UN - Amputation or joint fusion, explain -'UN' explanation can not move left side -8. Sensory 2 - Severe to total sensory loss; -9. Best Language 0 - No aphasia; normal -10. Dysarthria 0 - Normal -11. Extinction and Inattention 0 - No abnormality -Total 12 Query Text:A score of 0 is normal or asymptomatic. Total possible score is 42 . ED: Notify Physician for NIHSS increase by > / = 3 points. Inpatient: RN or Physician to activate a stroke alert for NIHSS increase of > / = 3 points. NIHSS 1b. LOC Questions: 0 - Answers BOTH questions correctly 1c. LOC Commands: 0 - Performs BOTH tasks correctly 2. Best Gaze: 1 - Partial gaze palsy; 3. Visual: 0 - No visual loss 4. Facial Palsy: 1 - Minor paralysis (flattened nasolabial fold, asymmetry on smiling) 5a. Left Arm: 2 - Some effort against gravity; 5b. Right Arm: 0 - No drift; arm holds 90 (or 45) degrees for full 10 seconds 6a. Left Le - No drift; leg holds 30-degree position for full 5 seconds 6b. Right Le - No movement 7. Limb Ataxia: 0 - Absent 8. Sensory: 1 - [id number]-[id number] sensory loss; 9. Best Language: 0 - No aphasia; normal 10. Dysarthria: 1 = Wjdw-[id number] dysarthria; 11. Extinction and Inattention: 0 - No abnormality Total: 10 10/31/24 1303 <Electronically signed by Tong Rai MD> Cosigner Signature (if applicable): CC: No Primary Care Physician~ Signed [facility] Work Phone: [phone]) 422-497307-31-2025 Consult note [facility] Medical Records Department [address] [place] [address] Consultation - Neurology 10/31/24 1253 MR#: [id number] Acct: [id number] Name: JAYDA OSHEA Rep #:[id number] : 1985 39 From: Tong Rai MD PCP: Care Physician,No Primary Status :ADM IN Location: [place] [address] Assessment and Plan: Stroke Assessment/Plan JAYDA OSHEA is a 39 F with a history of severe uncontrolled htn who presents for evaluation of left hemiparesi 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 Suspect that hypertension is the primary risk factor in this case, but an evaluation forcardioembolic causes is needed given that the CARMEN is a commoncardioembolic territory. Neurological examination shows left hemiparesis, arm worse than leg. Neuroimaging shows a right ACAinfarct and several scattered t2 hypertintensities that likely reflect more subtle prior ischemic injuries: - TTE. If possible, SUNDAY would be beneficial to rule out a cardiac thrombus or other embolic source if TTE is unremarkable. If evidence of PFO, would scan her lower extremities for DVT and could consider PFO closure with ROPE score of 6. - If no cardioembolic source noted, would get a 30 day event monitor to assess for AF at discharge. - BP management is likely to be the most importnat preventive effort going forward. In the short term, permissive hypertension is warranted given her subtle exam fluctuations. In the shelter, BP goal is < 130/85. If her exam is stable would slowly start adding oral anti-hypertensives in dany next several days - initially with low doses and slowly titrating up over the next several wees - Check a urine drug screen - Continue asa 81 indefinitely - Continue atorvasttin 80 indefinitely - Stressed the importance of stopping smoking - Call 911 with new stroke symptoms in the future - PT, OT, speech evals. Patient is likely a good acute rehab candidate. [Quick text reminder: .OSUtnk/.OSUnontnk] HPI Consult Data Date of Consult: 10/31/24 HPI Narrative HPI Narrative: JAYDA OSHEA, is a 39 F who presents for evaluation of left hemiparesis Ms. Oshea was in her normal state of health yesterday afternoon when she fell after tryingto stand from a chair and found that her left leg and arm were weak. She eventually presented to the ED, outside of a thrombolysis window and her hemiparesis has persisted mostly unchanged since that time - she thinks that shemay have somemore moveent in her proximal arm than she did initially, but her hand movements may have decreased.She denies other focal neurolgoic symptoms. It appears she has likely had severe hypertension sinceshe was about 16 years ago. She states that her typical BPs are in dany range of the 180s or above (although sometimes lower). She presented with an SBP around 220 and is currently in the 180s. She is just on clonidine as an outpatient and doesn't recall trialing other BP meds. No history of snoring, apneic episodes of excessive daytime somnolence. [facility] Medical History (Updated 10/31/24 @ 00:[address] Nehemiah Haney, ) HTN (hypertension) ADHD Migraine Strain of great toe, right Contusion of right great toe without damage to nail Home Medications ?Medication ?Instructions ?Recorded ?Last Taken ?Type dextroamphetamine-amphetamine 15 25 mg PO BID 07/17/14 Unknown History mg tablet (Adderall) loratadine 10 mg tablet (Claritin) 10 mg PO DAILY PRN PRN Allergies 01/25/18 Unknown History clonidine HCl 0.1 mg tablet 0.1 mg PO Q6H PRN hyperten sive 11/27/23 Unknown Rx emergency #10 tabs dexamethasone sodium phosphate 0.1 1 drp ophthalmic (e ye) 4X/DAY 10/30/24 Unknown History % eye drops dextroamphetamine-amphetamine 30 1 tab PO BID 10/30/24 Unknown History mg tablet erythromycin 5 mg/gram (0.5 %) eye 1 applic ophthalmic (eye) QPM 10/30/24 Unknown History ointment rizatriptan 10 mg tablet 10 mg PO Q2H PRN migraine he adache 10/30/24 Unknown History Allergy/AdvReac Type Severity Reaction Status Date / Time codeine Allergy Unknown Verified 10/30/24 21:22 naproxen Allergy Hives Verified 10/30/24 21:22 Social History Smoking Status: Current every day smoker tobacco type: e-cigarettes Vital Signs Vital Signs Vital Signs: 10/30/24 20:41 10/30/24 20:50 10/30/24 20:50 Temperature 98 F Temperature Source Oral Pulse Rate 80 Pulse Strength Respiratory Rate 17 Respiratory Effort Respiratory Depth Respiratory Pattern Blood Pressure 222/121 H Blood Pressure Mean 154 Blood Pressure Source Blood Pressure Position Blood Pressure Location Pulse Ox 100 Oxygen Delivery Method Room Air Room Air 10/30/24 21:00 10/30/24 21:15 10/30/24 21:30 Temperature Temperature Source Pulse Rate 70 68 Pulse Strength Respiratory Rate 11 L 17 Respiratory Effort Respiratory Depth Respiratory Pattern Blood Pressure 201/116 H 188/109 H 171/102 H Blood Pressure Mean 144 135 125 Blood Pressure Source Blood Pressure Position Blood Pressure Location Pulse Ox 99 99 Oxygen Delivery Method Room Air Room Air 10/30/24 22:00 10/30/24 22:30 10/30/24 23:00 Temperature Temperature Source Pulse Rate 68 68 69 Pulse Strength Respiratory Rate 15 14 15 Respiratory Effort Respiratory Depth Respiratory Pattern Blood Pressure 172/97 H 160/107 H 162/99 H Blood Pressure Mean 122 124 120 Blood Pressure Source Blood Pressure Position Blood Pressure Location Pulse Ox 98 99 100 Oxygen Delivery Method Room Air Room Air Room Air 10/30/24 23:14 10/31/24 00:00 10/31/24 00:30 Temperature 98 F 98.2 F Temperature Source Oral Pulse Rate 72 69 67 Pulse Strength Respiratory Rate 18 16 16 Respiratory Effort Respiratory Depth Respiratory Pattern Blood Pressure 163/95 H 166/99 H 170/105 H Blood Pressure Mean 117 121 126 Blood Pressure Source Monitor Blood Pressure Position Supine Blood Pressure Location Left Arm Pulse Ox 100 100 100 Oxygen Delivery Method Room Air 10/31/24 01:30 10/31/24 02:00 10/31/24 06:00 Temperature 98.2 F 98.5 F Temperature Source Oral Oral Pulse Rate 74 73 Pulse Strength Respiratory Rate 16 16 Respiratory Effort Normal Respiratory Depth Normal Respiratory Pattern Normal Blood Pressure 157/110 H 118/84 H Blood Pressure Mean 125 95 Blood Pressure Source Monitor Monitor Blood Pressure Position Semi-Fowlers Supine Blood Pressure Location Left Arm Left Arm Pulse Ox 99 99 Oxygen Delivery Method Room Air Room Air Room Air 10/31/24 06:00 10/31/24 08:13 10/31/24 08:17 Temperature Temperature Source Pulse Rate 62 Pulse Strength Respiratory Rate Respiratory Effort Normal Respiratory Depth Normal Respiratory Pattern Normal Blood Pressure Blood Pressure Mean Blood Pressure Source Blood Pressure Position Blood Pressure Location Pulse Ox Oxygen Delivery Method Room Air Room Air 10/31/24 09:35 10/31/24 10:00 Temperature 98.2 F Temperature Source Oral Pulse Rate 85 Pulse Strength Normal (2+) Respiratory Rate 16 Respiratory Effort Respiratory Depth Respiratory Pattern Blood Pressure 187/94 H Blood Pressure Mean 125 Blood Pressure Source Monitor Blood Pressure Position Semi-Fowlers Blood Pressure Location Left Forearm Pulse Ox 95 Oxygen Delivery Method Room Air Weight Weight: 79.4 kg Body Mass Index (BMI) 30.0 Physical Exam Narrative Severe left hemiparesis, arm worse than leg with a hemisensory deficit. Lab / Micro Data 10/30/24 20:40 10/30/24 20:40 Labs: Laboratory Results - last 24 hr 10/30/24 20:40: WBC 10.5, RBC 6.08 H, Hgb 18.5 H*, Hct 54.8 H, MCV 90.1, MCH 30.4, MCHC 33.8, RDW Std Deviation 39.9, RDW Coeff of Maria Teresa 12.1, Plt Count 311, MPV 10.0, Immature Gran % (Auto) 0.600, Neut % (Auto) 79.3 H, Lymph % (Auto) 15.0 L, [place] % (Auto) 4.2, Eos % (Auto) 0.4, Baso % (Auto) 0.5, Absolute Neuts (auto) 8.3 H, Absolute Lymphs (auto) 1.57, Nucleated RBC % 0, PT 11.8, INR 0.9, APTT 25.8, Sodium 141, Potassium 3.4, Chloride 100, Carbon Dioxide 24.6, Anion Gap 16 H, BUN 13, Creatinine0.80, Estim Creat Clear Calc 93.24, Est GFR (MDRD) Non-Af 95, BUN/Creatinine Ratio 16.5, Glucose 92, Calcium 10.5, Troponin T High Sens < 6 10/30/24 22:45: Hemoglobin A1c 5.4, Troponin T Hi Sens 2 Hr < 6, TSH 3.230 10/30/24 23:50: Serum Folate 7.69 10/31/24 06:38: Triglycerides 201 H, Cholesterol 209 H, LDL Cholesterol, Calc 108, VLDL [id number], HDL Cholesterol 61, Cholesterol/HDL Ratio 3.43, Vitamin B12 484 Imaging Radiology Impression Brain CT 10/30/24 20:46 IMPRESSION: Left frontal lobe periventricular white matter focal hypodensity measuring approximally 7 x 7 mm, which may reflect a lacunar infarction however acute infarction is not entirely excluded. Dr. Silva was notified by Jeanette De Jesus at 9:01 pm EST on 10/30/24. Reading Location: [facility] Head/Neck CTA 10/30/24 20:52 IMPRESSION: No acute large vessel occlusion. No high grade stenosis. Reading Location: [facility] Chest X-Ray 10/30/24 21:41 IMPRESSION: No acute cardiopulmonary disease. Reading Location: [facility] Brain MRI 10/31/24 06:00 IMPRESSION: There is a large area of restricted diffusion in the right frontal and superior parietal precentralcortex and superior periventricular region, measuring 9.0 by 3.0 by 4.6 cm, with associated increased T2 signal, and decreased T1 signal components, consistent with a subacute infarct, with acute components. There is a 0.6 cm focus of restricted diffusion in the left superior precentral cortex, axial image , which appears acute. There is a 0.8 cm old lacunar infarct inthe deep white matter on the left. Critical results were discussed with Velia Parada by Thai at the time ofdictation. [facility] Active Medications Active Medications Active Medications: Current Medications Generic Name Dose Route Start Last Admin Trade Name Freq PRN Reason Stop Dose Admin Acetaminophen 650 mg 10/31/24 01:12 10/31/24 06:35 Acetaminophen 325 Mg Tablet PO 650 mg Q4H PRN PRN Administration Pain 1-10 Or Fever>99.6 Amphetamine/Dextroamphetamine 30 mg 10/31/24 10:00 10/31/24 12:07 Dextroamphetamine/Amphetamine 30 Mg Tablet PO 30 mg BID MARIN Administration Aspirin 81 mg 10/31/24 08:00 10/31/24 12:07 Aspirin 81 Mg Tab.Chew PO 81 mg DAILYCM MARIN Administration Atorvastatin Calcium 80 mg 10/30/24 23:43 10/31/24 01:31 Atorvastatin Calcium 80 Mg Tablet PO 80 mg QHS MARIN Administration Cyclobenzaprine HCl 10 mg 10/31/24 02:24 10/31/24 03:00 Cyclobenzaprine Hcl 10 Mg Tablet PO 10 mg TID PRN PRN Administration MUSCLE SPASM Dexamethasone Sodium Phosphate 1 ml 10/31/24 10:00 10/31/24 12:07 Dexamethasone Sodium Phosphate 5 Ml Drops OPHTHALMIC 1 ml 4X/DAY MARIN Administration Erythromycin 1 applic 10/31/24 22:00 Erythromycin Base 1 Opth.Tube OPHTHALMIC QHS MARIN Hydralazine HCl 5 mg 10/31/24 01:12 Hydralazine 20 Mg/Ml Vial IV 11/01/24 01:12 Q30M PRN maintain BP parameters with HR <60 Sodium Chloride 1,000 mls @ 70 mls/hr 10/30/24 23:45 10/31/24 09:56 IV 10/31/24 14:02 70 mls/hr .[id number] MARIN Infusion Labetalol HCl 10 - 20 mg 10/31/24 01:12 Labetalol 20 Mg/4 Ml Vial IV 11/01/24 01:12 Q10M PRN PRN maintain BP parameters with HR >/=60 Loratadine 10 mg 10/31/24 01:12 Loratadine 10 Mg Tablet PO DAILY PRN PRN Allergies Sodium Chloride 10 - 40 ml 10/31/24 01:16 0.9% Saline Lock 10 Ml Syringe IV UD PRN SALINE FLUSH NIHSS NIHSS Nursing Documentation NIHSS Nursing Documentation: NIHSS: Ischemic Stroke/TIA Start: 10/31/24 01:12 Text: For PCU Patients: NIH and Neuro Check every 4 Status: Active hours, PRN and with change in RN caregiver. Freq: [id number] Protocol: Activity Type Activity Date Activity User E-sign Co-sign Detail Recorded Client Recorded Date Recorded By Document 10/31/24 10:00 [facility] [id number] 10/31/24 10:07 [facility] 10/31/24 10:00 NIH Stroke Scale [NIHSS] A score of 0 is normal or asymptomatic . Total possible score is 42. Inpatient: RN or Physician to activate a stroke alert for onset of new stroke symptoms or with NIHSS increase >/= 3 points. Following change in neurological status, NIHSS will be performed per physician order or more frequently PRN. -1a. Level of Consciousness 1 - Not alert; Arousable by minor stimuli to obey, answer & respond -1b. LOC Questions 0 - Answers BOTH questions correctly -1c. LOC Commands 0 - Performs BOTH tasks correctly -2. Best Gaze 0 - Normal -3. Visual 0 - No visual loss -4. Facial Palsy 1 - Minor paralysis ( flattened nasolabial fold , asymmetry on smiling) -5a. Left Arm 4 - No movement -5b. Right Arm 0 - No drift; arm holds 90 ( or 45) degrees for full 10 seconds -6a. Left Leg 4 - No movement -6b. Right Leg 0 - No drift; leg holds 30- degree position for full 5 seconds -7. Limb Ataxia UN - Amputation or joint fusion, explain -'UN' explanation can not move left side -8. Sensory 2 - Severe to total sensory loss; -9. Best Language 0 - No aphasia; normal -10. Dysarthria 0 - Normal -11. Extinction and Inattention 0 - No abnormality -Total 12 Query Text:A score of 0 is normal or asymptomatic. Total possible score is 42 . ED: Notify Physician for NIHSS increase by > / = 3 points. Inpatient: RN or Physician to activate a stroke alert for NIHSS increase of > / = 3 points. NIHSS 1b. LOC Questions: 0 - Answers BOTH questions correctly 1c. LOC Commands: 0 - Performs BOTH tasks correctly 2. Best Gaze: 1 - Partial gaze palsy; 3. Visual: 0 - No visual loss 4. Facial Palsy: 1 - Minor paralysis (flattened nasolabial fold, asymmetry on smiling) 5a. Left Arm: 2 - Some effort against gravity; 5b. Right Arm: 0 - No drift; arm holds 90 (or 45) degrees for full 10 seconds 6a. Left Le - No drift; leg holds 30-degree position for full 5 seconds 6b. Right Le - No movement 7. Limb Ataxia: 0 - Absent 8. Sensory: 1 - [id number] sensory loss; 9. Best Language: 0 - No aphasia; normal 10. Dysarthria: 1 = Wvak-eu-[id number] dysarthria; 11. Extinction and Inattention: 0 - No abnormality Total: 10 10/31/24 1303 Cosigner Signature (if applicable): CC: No Primary Care Physician~ Signed [facility]07-31-2025 Progress note Author Sen Clarke [facility] Note Date/Time October 31, 2024 9:46 am [facility] Medical Records Department [address] [place] [address] Progress Note - Hospitalist 10/31/2438 MR#: [id number] Acct: [id number] Name: JAYDA OSHEA Rep #:[id number] : 1985 39 From: Sen sherwood MD PCP: Care Physician,No Primary Status :ADM IN Location: [place] [address] Subjective Subjective Still having a migraine, and having a significant NIH of 13 Objective Data Objective Data Vital Signs: Vital Signs Temp Pulse Resp BP Pulse Ox O2 Del Method 98.5 F 62 16 118/84 H 99 Room Air 10/31/24 06:00 10/31/24 08:17 10/31/24 06:00 10/31/24 06:00 10/31/24 06:00 10/31/24 08:13 Oxygen Delivery Method Room Air Weight: 175 lb 0.752 oz Body Mass Index (BMI) 30.0 Intake & Output: Intake and Output for Last 24 Hours 10/30/24 10/31/24 11/01/24 03:59 03:59 03:59 Intake Total 1000 / 1000 679.67 / 679.67 Output Total 1400 / 1400 Balance 1000 / 1000 -720.33 / -720.33 Lab / Micro Data 10/30/24 20:40 10/30/24 20:40 Labs: Laboratory Results - last 24 hr 10/30/24 20:40: WBC 10.5, RBC 6.08 H, Hgb 18.5 H*, Hct 54.8 H, MCV 90.1, MCH 30.4, MCHC 33.8, RDW Std Deviation 39.9, RDW Coeff of Maria Teresa 12.1, Plt Count 311, MPV 10.0, Immature Gran % (Auto) 0.600, Neut % (Auto) 79.3 H, Lymph % (Auto) 15.0 L, [place] % (Auto) 4.2, Eos % (Auto) 0.4, Baso % (Auto) 0.5, Absolute Neuts (auto) 8.3 H, Absolute Lymphs (auto) 1.57, Nucleated RBC % 0, PT 11.8, INR 0.9, APTT 25.8, Sodium 141, Potassium 3.4, Chloride 100, Carbon Dioxide 24.6, Anion Gap 16 H, BUN 13, Creatinine 0.80, Estim Creat Clear Calc 93.24, Est GFR (MDRD) Non-Af 95, BUN/Creatinine Ratio 16.5, Glucose 92, Calcium 10.5, Troponin T High Sens < 6 10/30/24 22:45: Hemoglobin A1c 5.4, Troponin T Hi Sens 2 Hr < 6, TSH 3.230 10/30/24 23:50: Serum Folate 7.69 10/31/24 06:38: Triglycerides 201 H, Cholesterol 209 H, LDL Cholesterol, Calc 108, VLDL Cholesterol 40, HDL Cholesterol 61, Cholesterol/HDL Ratio 3.43, Vitamin B12 484 Radiography Diagnostic Testing: Radiology Impression Brain CT 10/30/24 20:46 IMPRESSION: Left frontal lobe periventricular white matter focal hypodensity measuring approximally 7 x 7 mm, which may reflect a lacunar infarction however acute infarction is not entirely excluded. Dr. Silva was notified by Jeanette De Jesus at 9:01 pm EST on 10/30/24. Reading Location: [facility] Head/Neck CTA 10/30/24 20:52 IMPRESSION: No acute large vessel occlusion. No high grade stenosis. Reading Location: [facility] Chest X-Ray 10/30/24 21:41 IMPRESSION: No acute cardiopulmonary disease. Reading Location: [facility] Physical Exam Narrative General: Alert, Oriented x3, Cooperative, No apparent distress HEENT: Atraumatic, PERRLA, EOMI, Normocephalic Oral: Moist Mucosa Neck: Supple, No JVD Lungs: Diminished, Normal air movement, No rhonchi, No wheeze, No rales Cardiovascular: Regular rate, Regular Rhythm, Normal S1, Normal S2, No murmurs Abdomen: Soft, Non Tender, Non-Distended, No Hepato-splenomegaly Extremities: No edema, Capillary Refill Less than 3 Seconds Skin: No rashes, No breakdown Musculoskeletal: No Tenderness to Palpation of Joints or Extremities Neurological: Left-sided paralysis in her arm and leg with partial gaze palsy and facial paralysis Psych/Mental Status: Flat Assessment & Plan Assessment/Plan (1) Ischemic cerebrovascular accident (CVA): (2) Acute left-sided weakness: (3) Migraine headache: QUALIFIERS: Migraine type: unspecified Status migrainosus presence: without status migrainosus Intractability: not intractable QualifiedCode(s): G43.909 - Migraine, unspecified, not intractable, without status migrainosus PLAN: Plan 1. CVA with left-sided deficits complicated by migraine/tobacco abuse ? She has been having a migraine during this entire episode that was not resolved with rizatriptan ? Continue with MRI and echocardiogram ? Appreciate neurology's assistance ? Continue with stroke protocol ? Continue with NIH as ? Continue with permissive hypertension ? Discussed tobacco cessation 2. Concern for polycythemia ? Check to being evaluated ? She may also just be dehydrated in the setting of tobacco use DVT: SCDs Charges/Coding Visit Charges Inpatient E&M: 92687 Subs Hosp L2 NIHSS NIHSS Nursing Documentation NIHSS Nursing Documentation: NIHSS: Ischemic Stroke/TIA Start: 10/31/24 01:12 Text: For PCU Patients: NIH and Neuro Check every 4 Status: Active hours, PRN and with change in RN caregiver. Freq: [id number] Protocol: Activity Type Activity Date Activity User E-sign Co-sign Detail Recorded Client Recorded Date Recorded By Document 10/31/24 06:00 RPS [id number] 10/31/24 06:25 RPS 10/31/24 06:00 NIH Stroke Scale [NIHSS] A score of 0 is normal or asymptomatic . Total possible score is 42. Inpatient: RN or Physician to activate a stroke alert for onset of new stroke symptoms or with NIHSS increase >/= 3 points. Following change in neurological status, NIHSS will be performed per physician order or more frequently PRN. -1a. Level of Consciousness 0 - Alert; keenly responsive -1b. LOC Questions 0 - Answers BOTH questions correctly -1c. LOC Commands 0 - Performs BOTH tasks correctly -2. Best Gaze 1 - Partial gaze palsy; -3. Visual 0 - No visual loss -4. Facial Palsy 2 - Partial paralysis ( total or near- total paralysis of lower face) -5a. Left Arm 3 - No effort against gravity ; arm falls -5b. Right Arm 0 - No drift; arm holds 90 ( or 45) degrees for full 10 seconds -6a. Left Leg 3 - No effort against gravity ; leg falls to bed immediately -6b. Right Leg 0 - No drift; leg holds 30- degree position for full 5 seconds -7. Limb Ataxia 2 - Present in 2 limbs -8. Sensory 2 - Severe to total sensory loss; -9. Best Language 0 - No aphasia; normal -10. Dysarthria 0 - Normal -11. Extinction and Inattention 0 - No abnormality -Total 13 Query Text:A score of 0 is normal or asymptomatic. Total possible score is 42 . ED: Notify Physician for NIHSS increase by > / = 3 points. Inpatient: RN or Physician to activate a stroke alert for NIHSS increase of > / = 3 points. Coma Scale [Assess] -Eye Opening Spontaneous -Motor Obeys Commands -Verbal Oriented [Total] -Coma Scale Total 15 10/31/24 0946 <Electronically signed by Sen Clarke MD> Cosigner Signature (if applicable): CC: ~ Signed [facility] Work Phone: [phone]) 454-668407-31-2025 Progress note [facility] Medical Records Department [address] [place] [address] Progress Note - Hospitalist 10/31/24937 MR#: [id number] Acct: [id number] Name: JAYDA OSHEA Rep #:[id number] : 1985 39 From: Sen sherwood MD PCP: Care Physician,No Primary Status :ADM IN Location: [facility] [id number] Subjective Subjective Still having a migraine, and having a significant NIH of 13 Objective Data Objective Data Vital Signs: Vital Signs Temp Pulse Resp BP Pulse Ox O2 Del Method 98.5 F 62 16 118/84 H 99 Room Air 10/31/24 06:00 10/31/24 08:17 10/31/24 06:00 10/31/24 06:00 10/31/24 06:00 10/31/24 08:13 Oxygen Delivery Method Room Air Weight: 175 lb 0.752 oz Body Mass Index (BMI) 30.0 Intake & Output: Intake and Output for Last 24 Hours 10/30/24 10/31/24 11/01/24 03:59 03:59 03:59 Intake Total 1000 / 1000 679.67 / 679.67 Output Total 1400 / 1400 Balance 1000 / 1000 -720.33 / -720.33 Lab / Micro Data 10/30/24 20:40 10/30/24 20:40 Labs: Laboratory Results - last 24 hr 10/30/24 20:40: WBC 10.5, RBC 6.08 H, Hgb 18.5 H*, Hct 54.8 H, MCV 90.1, MCH 30.4, MCHC 33.8, RDW Std Deviation 39.9, RDW Coeff of Maria Teresa 12.1, Plt Count 311, MPV 10.0, Immature Gran % (Auto) 0.600, Neut % (Auto) 79.3 H, Lymph % (Auto) 15.0 L, [place] % (Auto) 4.2, Eos % (Auto) 0.4, Baso % (Auto) 0.5, Absolute Neuts (auto) 8.3 H, Absolute Lymphs (auto) 1.57, Nucleated RBC % 0, PT 11.8, INR 0.9, APTT 25.8, Sodium 141, Potassium 3.4, Chloride 100, Carbon Dioxide 24.6, Anion Gap 16 H, BUN 13, Creatinine0.80, Estim Creat Clear Calc 93.24, Est GFR (MDRD) Non-Af 95, BUN/Creatinine Ratio 16.5, Glucose 92, Calcium 10.5, Troponin T High Sens < 6 10/30/24 22:45: Hemoglobin A1c 5.4, Troponin T Hi Sens 2 Hr < 6, TSH 3.230 10/30/24 23:50: Serum Folate 7.69 10/31/24 06:38: Triglycerides 201 H, Cholesterol 209 H, LDL Cholesterol, Calc 108, VLDL [id number], HDL Cholesterol 61, Cholesterol/HDL Ratio 3.43, Vitamin B12 484 Radiography Diagnostic Testing: Radiology Impression Brain CT 10/30/24 20:46 IMPRESSION: Left frontal lobe periventricular white matter focal hypodensity measuring approximally 7 x 7 mm, which may reflect a lacunar infarction however acute infarction is not entirely excluded. Dr. Silva was notified by Jeanette De Jesus at 9:01 pm EST on 10/30/24. Reading Location: [facility] Head/Neck CTA 10/30/24 20:52 IMPRESSION: No acute large vessel occlusion. No high grade stenosis. Reading Location: [facility] Chest X-Ray 10/30/24 21:41 IMPRESSION: No acute cardiopulmonary disease. Reading Location: [facility] Physical Exam Narrative General: Alert, Oriented x3, Cooperative, No apparent distress HEENT: Atraumatic, PERRLA, EOMI, Normocephalic Oral: Moist Mucosa Neck: Supple, No JVD Lungs: Diminished, Normal air movement, No rhonchi, No wheeze, No rales Cardiovascular: Regular rate, Regular Rhythm, Normal S1, Normal S2, No murmurs Abdomen: Soft, Non Tender, Non-Distended, No Hepato-splenomegaly Extremities: No edema, Capillary Refill Less than 3 Seconds Skin: No rashes, No breakdown Musculoskeletal: No Tenderness to Palpation of Joints or Extremities Neurological: Left-sided paralysis in her arm and leg with partial gaze palsy and facial paralysis Psych/Mental Status: Flat Assessment & Plan Assessment/Plan (1) Ischemic cerebrovascular accident (CVA): (2) Acute left-sided weakness: (3) Migraine headache: QUALIFIERS: Migraine type: unspecified Status migrainosus presence: without status migrainosus Intractability: not intractable QualifiedCode(s): G43.909 - Migraine, unspecified, not intractable, without status migrainosus PLAN: Plan 1. CVA with left-sided deficits complicated by migraine/tobacco abuse ? She has been having a migraine during this entire episode that was not resolved with rizatriptan ? Continue with MRI and echocardiogram ? Appreciate neurology's assistance ? Continue with stroke protocol ? Continue with NIH as ? Continue with permissive hypertension ? Discussed tobacco cessation 2. Concern for polycythemia ? Check to being evaluated ? She may also just be dehydrated in the setting of tobacco use DVT: SCDs Charges/Coding Visit Charges Inpatient E&M: 10940 Subs Hosp L2 NIHSS NIHSS Nursing Documentation NIHSS Nursing Documentation: NIHSS: Ischemic Stroke/TIA Start: 10/31/24 01:12 Text: For PCU Patients: NIH and Neuro Check every 4 Status: Active hours, PRN and with change in RN caregiver. Freq: [id number] Protocol: Activity Type Activity Date Activity User E-sign Co-sign Detail Recorded Client Recorded Date Recorded By Document 10/31/24 06:[address] [facility] [id number] 10/31/24 06:[address] [facility] 10/31/24 06:00 NIH Stroke Scale [NIHSS] A score of 0 is normal or asymptomatic . Total possible score is 42. Inpatient: RN or Physician to activate a stroke alert for onset of new stroke symptoms or with NIHSS increase >/= 3 points. Following change in neurological status, NIHSS will be performed per physician order or more frequently PRN. -1a. Level of Consciousness 0 - Alert; keenly responsive -1b. LOC Questions 0 - Answers BOTH questions correctly -1c. LOC Commands 0 - Performs BOTH tasks correctly -2. Best Gaze 1 - Partial gaze palsy; -3. Visual 0 - No visual loss -4. Facial Palsy 2 - Partial paralysis ( total or near- total paralysis of lower face) -5a. Left Arm 3 - No effort against gravity ; arm falls -5b. Right Arm 0 - No drift; arm holds 90 ( or 45) degrees for full 10 seconds -6a. Left Leg 3 - No effort against gravity ; leg falls to bed immediately -6b. Right Leg 0 - No drift; leg holds 30- degree position for full 5 seconds -7. Limb Ataxia 2 - Present in 2 limbs -8. Sensory 2 - Severe to total sensory loss; -9. Best Language 0 - No aphasia; normal -10. Dysarthria 0 - Normal -11. Extinction and Inattention 0 - No abnormality -Total 13 Query Text:A score of 0 is normal or asymptomatic. Total possible score is 42 . ED: Notify Physician for NIHSS increase by > / = 3 points. Inpatient: RN or Physician to activate a stroke alert for NIHSS increase of > / = 3 points. Coma Scale [Assess] -Eye Opening Spontaneous -Motor Obeys Commands -Verbal Oriented [Total] -Coma Scale Total 15 10/31/24 0946 Cosigner Signature (if applicable): CC: ~ Signed [facility]07-31-2025 History and physical note Author Nehemiah Medrano [facility] Note Date/Time October 31, 2024 6:31 am [facility] Medical Records Department [address] [place] [address] H&P Exam - Hospitalist 10/30/24 2323 MR#: [id number] Acct: [id number] Name: JAYDA OSHEA Rep #:[id number] : 1985 39 From: Nehemiah Cordova DO PCP: Care Physician,No Primary Status :ADM IN Location: [place] [address] HPI - General General Date of Admission: 10/30/24 Date of Service: 10/30/24 Chief Complaint: Acute Left-sided Weakness with Slurred Speech. HPI Narrative JAYDA OSHEA, is a 39 F with a past medical history of being overweight; with BMIof 29.3 this admission, essential hypertension; on prn clonidine, tobacco abuse,migraine headaches; on prn rizatriptan, ADHD; on dextroamphetamine-amphetamine BID and seasonal allergies; on loratadine who presents to [facility] ER complaining of acute Left-sided weakness with slurred speech. Ms. Oshea reports her symptoms began at approximately 3:30 PM earlier today when she developed a migraine headache with nausea yesterday and this a.m. but then she experienced the abrupt-onset of weakness in the Left arm and leg. She also admits to somewhat slurred speech with occassional muscle spasms. She states her symptoms were not made better or worse by anything. She denies related fever, chills, vomiting, abdominal pain, diarrhea, constipation, chest pain, palpitations, heart racing, lower extremity edema, dysuria, hematuria or rash. In the ER she was noted to have a highly elevated initial blood pressure of 222/121 mmHg with a corresponding brain CT without contrast that revealed left frontal lobe periventricular white matter focal hypodensity measuring ~7mm x ~7mm which may reflect lacunar infarction, however acute infarction is not entirely excluded followed by a CTA of the head and neck with IV contrast that revealed no acute large vessel occlusion or high-grade stenosis. The [facility] teleneurologist suspected ischemic CVA with a stroke NIHSS score of 11 and with thrombolytics not recommended since she was outside of the time window. She wasalso incidentally noted to have Polycythemia with hemoglobin of 18.5 g/dL present on admission. She was admitted to the PCU for ongoing care for status expected to extend beyond 2 midnights. [facility] Medical History (Updated 10/31/24 @ 00:[address] Nehemiah Haney DO) HTN (hypertension) ADHD Migraine Strain of great toe, right Contusion of right great toe without damage to nail Home Medications ?Medication ?Instructions ?Recorded ?Last Taken ?Type dextroamphetamine-amphetamine 15 25 mg PO BID 07/17/14 Unknown History mg tablet (Adderall) loratadine 10 mg tablet (Claritin) 10 mg PO DAILY PRN PRN Allergies 01/25/18 Unknown History clonidine HCl 0.1 mg tablet 0.1 mg PO Q6H PRN hyperten sive 11/27/23 Unknown Rx emergency #10 tabs dexamethasone sodium phosphate 0.1 1 drp ophthalmic (e ye) 4X/DAY 10/30/24 Unknown History % eye drops dextroamphetamine-amphetamine 30 1 tab PO BID 10/30/24 Unknown History mg tablet erythromycin 5 mg/gram (0.5 %) eye 1 applic ophthalmic (eye) QPM 10/30/24 Unknown History ointment rizatriptan 10 mg tablet 10 mg PO Q2H PRN migraine he adache 10/30/24 Unknown History Allergy/AdvReac Type Severity Reaction Status Date / Time codeine Allergy Unknown Verified 10/30/24 21:22 naproxen Allergy Hives Verified 10/30/24 21:22 Social History Smoking Status: Current every day smoker tobacco type: e-cigarettes ROS ROS Narrative Review of Systems: Constitutional: Patient denies fever or chills. Eyes: Patient denies changes in vision or discharge from eyes. ENT: Patient denies runny nose, sore throat or ear pain. Resp: Patient denies shortness of breath or cough. CV: Patient denies chest pain, palpitations, heart racing or lower extremity edema. GI: Patient admits to nausea but she denies vomiting as per HPI. She denies abdominal pain, diarrhea or constipation. : Patient denies dysuria or hematuria. MSK: Patient admits to Left-sided weakness as per HPI. Skin: Patient denies rash, abscess, wounds or jaundice. Psych: Patient denies symptoms of uncontrolled depression or anxiety. Neuro: Patient admits to migraine headaches and sudden-onset Left-sided weaknesswith transient slurred speech as per HPI. Allergy: Patient denies lip swelling, tongue swelling or urticaria. Hematology: Patient denies easy bleeding or easy bruisability. Endocrinology: Patient denies polyuria, polydipsia, polyphagia or heat/cold intolerance. 14 point ROS otherwise negative except for positives noted above in HPI. Vital Signs Vital Signs Vital Signs: 10/30/24 20:41 10/30/24 20:50 10/30/24 20:50 Temperature 98 F Temperature Source Oral Pulse Rate 80 Respiratory Rate 17 Blood Pressure 222/121 H Blood Pressure Mean 154 Pulse Ox 100 Oxygen Delivery Method Room Air Room Air 10/30/24 21:00 10/30/24 21:15 10/30/24 21:30 Temperature Temperature Source Pulse Rate 70 68 Respiratory Rate 11 L 17 Blood Pressure 201/116 H 188/109 H 171/102 H Blood Pressure Mean 144 135 125 Pulse Ox 99 99 Oxygen Delivery Method Room Air Room Air 10/30/24 22:00 10/30/24 22:30 10/30/24 23:14 Temperature 98 F Temperature Source Pulse Rate 68 68 72 Respiratory Rate 15 14 18 Blood Pressure 172/97 H 160/107 H 163/95 H Blood Pressure Mean 122 124 117 Pulse Ox 98 99 100 Oxygen Delivery Method Room Air Room Air Weight Weight: 170 lb 13.732 oz Body Mass Index (BMI) 29.3 Physical Exam Const alert, oriented x3, no apparent distress, average body habitus and healthy appearing General Appearance: cooperative HEENT normocephalic, head/scalp atraumatic, hearing grossly normal bilaterally and moist oral mucous membranes Eyes PERRL, EOMs intact bilaterally and conjunctivae normal Neck no lymphadenopathy, supple and no JVD Resp normal respiratory effort, no retractions, no use of accessory muscles and clearto auscultation bilaterally Cardio regular rate and regular rhythm GI normal to inspection, nondistended, normoactive bowel sounds, soft to palpation,non-tender and non-distended Extremity normal to inspection, full ROM and no clubbing, cyanosis or edema Skin Skin Narrative: Patient has no evidence of rash, abscess, wounds or jaundice. Neuro oriented x3 and CN's II-XII intact bilaterally Neuro Narrative: Patient has moderate left-sided weakness in the upper and lower extremity. Her speech is not slurred at this time. Sensorium / Orientation: awake, alert, oriented to person, oriented to place andoriented to time Speech: speech normal Psych affect normal Results Medical Records Data Attestation: I reviewed the patient's medical records Lab / Micro Data Attestation: I reviewed the patient's lab results. 10/30/24 20:40 10/30/24 20:40 Labs: Laboratory Results - last 24 hr 10/30/24 20:40: WBC 10.5, RBC 6.08 H, Hgb 18.5 H*, Hct 54.8 H, MCV 90.1, MCH 30.4, MCHC 33.8, RDW Std Deviation 39.9, RDW Coeff of Maria Teresa 12.1, Plt Count 311, MPV 10.0, Immature Gran % (Auto) 0.600, Neut % (Auto) 79.3 H, Lymph % (Auto) 15.0 L, [place] % (Auto) 4.2, Eos % (Auto) 0.4, Baso % (Auto) 0.5, Absolute Neuts (auto) 8.3 H, Absolute Lymphs (auto) 1.57, Nucleated RBC % 0, PT 11.8, INR 0.9, APTT 25.8, Sodium 141, Potassium 3.4, Chloride 100, Carbon Dioxide 24.6, Anion Gap 16 H, BUN 13, Creatinine 0.80, Estim Creat Clear Calc 93.24, Est GFR (MDRD) Non-Af 95, BUN/Creatinine Ratio 16.5, Glucose 92, Calcium 10.5, Troponin T High Sens < 6 10/30/24 22:45: Troponin T Hi Sens 2 Hr < 6 Imaging Radiology Impression Brain CT 10/30/24 20:46 IMPRESSION: Left frontal lobe periventricular white matter focal hypodensity measuring approximally 7 x 7 mm, which may reflect a lacunar infarction however acute infarction is not entirely excluded. Dr. Silva was notified by Jeanette De Jesus at 9:01 pm EST on 10/30/24. Reading Location: [facility] Head/Neck CTA 10/30/24 20:52 IMPRESSION: No acute large vessel occlusion. No high grade stenosis. Reading Location: [facility] Chest X-Ray 10/30/24 21:41 IMPRESSION: No acute cardiopulmonary disease. Reading Location: [facility] Assessment & Plan Assessment/Plan (1) Ischemic cerebrovascular accident (CVA): (2) Acute left-sided weakness: (3) Migraine headache: QUALIFIERS: Intractability: not intractable Migraine type: unspecified Status migrainosus presence: without status migrainosus Qualified Code(s): G43.909 - Migraine, unspecified, not intractable, without status migrainosus (4) Tobacco abuse: (5) Polycythemia: (6) ADHD: QUALIFIERS: Attention deficit-hyperactivity disorder type: unspecified Qualified Code(s): F90.9 - Attention-deficit hyperactivity disorder,unspecified type (7) Overweight (BMI 25.0-29.9): PLAN: Plan 1. Left-sided weakness with transient slurred speech and head CT without contrast that revealed Left frontal lobe periventricular white matter focal hypodensity measuring ~7mm x ~7mm which may reflect lacunar infarction, however acute infarction is not entirely excluded - Admit to PCU. Check MRI of the brain without contrast to confirm suspicion of CVA noted on CT. Check echocardiogram to evaluate LVEF. Give BASA and statin plus check TSH, B12, Folate, FRANKIE, UDS and Lipid Profile to expand evaluation. Finally, [facility] teleneurology will be consulted to see patient after her new imaging and laboratory test have been completed with help appreciated in advance. 2. Uncontrolled Hypertension with highly elevated initial blood pressure of 222/121 mmHg likely due to #1 - Allow for permissive hypertension until CVA definitively ruled out on MRI. 3. Migraine headaches complicating #1 & #2 - Hold rizatriptan until further notice to diminish risk of potential cerebral artery vasospasm. Give acetaminophen as needed for [id number] (level 1-5/10) pain or fever. Givemorphine IV as needed for severe (level 6-10/10) pain. 4. Tobacco abuse with Polycythemia revealed by elevated hemoglobin of 18.5 gramper deciliter present on admission compounding #1 - #3 - Tobacco Cessation will be strongly encouraged with nicotine patch however to control cravings. Check RITA-2 mutation. 5. Overweight; with BMI of 29.3 this admission - Weight loss will be recommended. Check TSH. 6. ADHD; on dextroamphetamine-amphetamine BID - Hold this agent until further notice to prevent potentially spiking blood pressure. 7. Seasonal allergies; on loratadine - Maintain loratadine as before. 8. DVT prophylaxis - Enoxaparin 40 mg sq daily plus SCD's. Total time: Approximately (but not less than) 75 minutes. Charges/Coding Visit Charges Inpatient E&M: 37596 Init Hosp L3 10/31/24 0631 <Electronically signed by Nehemiah Haney DO> Cosigner Signature (if applicable): CC: Dr. Nehemiah Haney DO; No Primary Care Physician~ Signed [facility] Work Phone: 1([phone]) 457-851307-31-2025 History and physical note [facility] Medical Records Department [address] [place] [address] H&P Exam - Hospitalist 10/30/24 2323 MR#: [id number] Acct: [id number] Name: JAYDA OSHEA Rep #:[id number] : 1985 39 From: Neehmiah Cordova DO PCP: Care Physician,No Primary Status :ADM IN Location: [address] HPI - General General Date of Admission: 10/30/24 Date of Service: 10/30/24 Chief Complaint: Acute Left-sided Weakness with Slurred Speech. HPI Narrative JAYDA OSHEA, is a 39 F with a past medical history of being overweight; with BMIof 29.3 this admission, essential hypertension; on prn clonidine, tobacco abuse,migraine headaches; on prn rizatriptan,ADHD; on dextroamphetamine- amphetamine BID and seasonal allergies; on loratadine who presents to [facility] ER complaining of acute Left-sided weakness with slurred speech. Ms. Oshea reports her symptoms began at approximately 3:30 PM earlier today when she developed a migraine headache with nausea yesterday and this a.m. but then she experienced the abrupt-onset of weakness in theLeft arm and leg. She also admits to somewhat slurred speech with occassional muscle spasms. She states her symptoms were not made better or worse by anything. She denies related fever, chills, vomiting, abdominal pain, diarrhea, constipation, chest pain, palpitations, heart racing, lower extremityedema, dysuria, hematuria or rash. In the ER she was noted to have a highly elevated initial blood pressure of 222/121 mmHg with a corresponding brain CT without contrast that revealed left frontal lobe periventricular white matter focal hypodensity measuring ~7mm x ~7mm which may reflect lacunar infarction, however acute infarction is not entirely excluded followed by a CTA of the head and neck with IV contrast that revealed no acute large vessel occlusion or high-grade stenosis. The [facility] telene urologist suspected ischemic CVA with a stroke NIHSS score of 11 and with thrombolytics not recommended since she was outside of the time window. She wasalso incidentally noted to have Polycythemia with hemoglobin of 18.5 g/dL present on admission. She was admitted to the PCU for ongoing care for status expected to extend beyond 2 midnights. [facility] Medical History (Updated 10/31/24 @ 00:[address] Nehemiah Haney, DO) HTN (hypertension) ADHD Migraine Strain of great toe, right Contusion of right great toe without damage to nail Home Medications ?Medication ?Instructions ?Recorded ?Last Taken ?Type dextroamphetamine-amphetamine 15 25 mg PO BID 07/17/14 Unknown History mg tablet (Adderall) loratadine 10 mg tablet (Claritin) 10 mg PO DAILY PRN PRN Allergies 01/25/18 Unknown History clonidine HCl 0.1 mg tablet 0.1 mg PO Q6H PRN hyperten sive 11/27/23 Unknown Rx emergency #10 tabs dexamethasone sodium phosphate 0.1 1 drp ophthalmic (e ye) 4X/DAY 10/30/24 Unknown History % eye drops dextroamphetamine-amphetamine 30 1 tab PO BID 10/30/24 Unknown History mg tablet erythromycin 5 mg/gram (0.5 %) eye 1 applic ophthalmic (eye) QPM 10/30/24 Unknown History ointment rizatriptan 10 mg tablet 10 mg PO Q2H PRN migraine he adache 10/30/24 Unknown History Allergy/AdvReac Type Severity Reaction Status Date / Time codeine Allergy Unknown Verified 10/30/24 21:22 naproxen Allergy Hives Verified 10/30/24 21:22 Social History Smoking Status: Current every day smoker tobacco type: e-cigarettes ROS ROS Narrative Review of Systems: Constitutional: Patient denies fever or chills. Eyes: Patient denies changes in vision or discharge from eyes. ENT: Patient denies runny nose, sore throat or ear pain. Resp: Patient denies shortness of breath or cough. CV: Patient denies chest pain, palpitations, heart racing or lower extremity edema. GI: Patient admits to nausea but she denies vomiting as per HPI. She denies abdominal pain, diarrhea or constipation. : Patient denies dysuria or hematuria. MSK: Patient admits to Left-sided weakness as per HPI. Skin: Patient denies rash, abscess, wounds or jaundice. Psych: Patient denies symptoms of uncontrolled depression or anxiety. Neuro: Patient admits to migraine headaches and sudden-onset Left-sided weaknesswith transient slurred speech as per HPI. Allergy: Patient denies lip swelling, tongue swelling or urticaria. Hematology: Patient denies easy bleeding or easy bruisability. Endocrinology: Patient denies polyuria, polydipsia, polyphagia or heat/cold intolerance. 14 point ROS otherwise negative except for positives noted above in HPI. Vital Signs Vital Signs Vital Signs: 10/30/24 20:41 10/30/24 20:50 10/30/24 20:50 Temperature 98 F Temperature Source Oral Pulse Rate 80 Respiratory Rate 17 Blood Pressure 222/121 H Blood Pressure Mean 154 Pulse Ox 100 Oxygen Delivery Method Room Air Room Air 10/30/24 21:00 10/30/24 21:15 10/30/24 21:30 Temperature Temperature Source Pulse Rate 70 68 Respiratory Rate 11 L 17 Blood Pressure 201/116 H 188/109 H 171/102 H Blood Pressure Mean 144 135 125 Pulse Ox 99 99 Oxygen Delivery Method Room Air Room Air 10/30/24 22:00 10/30/24 22:30 10/30/24 23:14 Temperature 98 F Temperature Source Pulse Rate 68 68 72 Respiratory Rate 15 14 18 Blood Pressure 172/97 H 160/107 H 163/95 H Blood Pressure Mean 122 124 117 Pulse Ox 98 99 100 Oxygen Delivery Method Room Air Room Air Weight Weight: 170 lb 13.732 oz Body Mass Index (BMI) 29.3 Physical Exam Const alert, oriented x3, no apparent distress, average body habitus and healthy appearing General Appearance: cooperative HEENT normocephalic, head/scalp atraumatic, hearing grossly normal bilaterally and moist oral mucous membranes Eyes PERRL, EOMs intact bilaterally and conjunctivae normal Neck no lymphadenopathy, supple and no JVD Resp normal respiratory effort, no retractions, no use of accessory muscles and clearto auscultation bilaterally Cardio regular rate and regular rhythm GI normal to inspection, nondistended, normoactive bowel sounds, soft to palpation,non-tender and non-distended Extremity normal to inspection, full ROM and no clubbing, cyanosis or edema Skin Skin Narrative: Patient has no evidence of rash, abscess, wounds or jaundice. Neuro oriented x3 and CN's II-XII intact bilaterally Neuro Narrative: Patient has moderate left-sided weakness in the upper and lower extremity. Her speech is not slurred at this time. Sensorium / Orientation: awake, alert, oriented to person, oriented to place andoriented to time Speech: speech normal Psych affect normal Results Medical Records Data Attestation: I reviewed the patient's medical records Lab / Micro Data Attestation: I reviewed the patient's lab results. 10/30/24 20:40 10/30/24 20:40 Labs: Laboratory Results - last 24 hr 10/30/24 20:40: WBC 10.5, RBC 6.08 H, Hgb 18.5 H*, Hct 54.8 H, MCV 90.1, MCH 30.4, MCHC 33.8, RDW Std Deviation 39.9, RDW Coeff of Maria Teresa 12.1, Plt Count 311, MPV 10.0, Immature Gran % (Auto) 0.600, Neut % (Auto) 79.3 H, Lymph % (Auto) 15.0 L, [place] % (Auto) 4.2, Eos % (Auto) 0.4, Baso % (Auto) 0.5, Absolute Neuts (auto) 8.3 H, Absolute Lymphs (auto) 1.57, Nucleated RBC % 0, PT 11.8, INR 0.9, APTT 25.8, Sodium 141, Potassium 3.4, Chloride 100, Carbon Dioxide 24.6, Anion Gap 16 H, BUN 13, Creatinine0.80, Estim Creat Clear Calc 93.24, Est GFR (MDRD) Non-Af 95, BUN/Creatinine Ratio 16.5, Glucose 92, Calcium 10.5, Troponin T High Sens < 6 10/30/24 22:45: Troponin T Hi Sens 2 Hr < 6 Imaging Radiology Impression Brain CT 10/30/24 20:46 IMPRESSION: Left frontal lobe periventricular white matter focal hypodensity measuring approximally 7 x 7 mm, which may reflect a lacunar infarction however acute infarction is not entirely excluded. Dr. Silva was notified by Jeanette De Jesus at 9:01 pm EST on 10/30/24. Reading Location: [facility] Head/Neck CTA 10/30/24 20:52 IMPRESSION: No acute large vessel occlusion. No high grade stenosis. Reading Location: [facility] Chest X-Ray 10/30/24 21:41 IMPRESSION: No acute cardiopulmonary disease. Reading Location: [facility] Assessment & Plan Assessment/Plan (1) Ischemic cerebrovascular accident (CVA): (2) Acute left-sided weakness: (3) Migraine headache: QUALIFIERS: Intractability: not intractable Migraine type: unspecified Status migrainosus presence:without status migrainosus Qualified Code(s): G43.909 - Migraine, unspecified, not intractable, without status migrainosus (4) Tobacco abuse: (5) Polycythemia: (6) ADHD: QUALIFIERS: Attention deficit-hyperactivity disorder type: unspecified Qualified Code(s): F90.9 - Attention-deficit hyperactivity disorder,unspecified type (7) Overweight (BMI 25.0-29.9): PLAN: Plan 1. Left-sided weakness with transient slurred speech and head CT without contrast that revealed Left frontal lobe periventricular white matter focal hypodensity measuring ~7mm x ~7mm which may reflect lacunar infarction, however acute infarction is not entirely excluded - Admit to PCU. Check MRI ofthe brain without contrast to confirm suspicion of CVA noted on CT. Check echocardiogram to evaluate LVEF. Give BASA and statin plus check TSH, B12, Folate, FRANKIE, UDS and Lipid Profile to expand evaluation. Finally, [facility] teleneurology will be consulted to see patient after her new imaging and laboratory test have been completed with help appreciated in advance. 2. Uncontrolled Hypertension with highly elevated initial blood pressure of 222/121 mmHg likely dueto #1 - Allow for permissive hypertension until CVA definitively ruled out on MRI. 3. Migraine headaches complicating #1 & #2 - Hold rizatriptan until further notice to diminish risk of potential cerebral artery vasospasm. Give acetaminophen as needed for [id number] (level 1-5/10) pain or fever. Givemorphine IV as needed for severe (level 6-10/10) pain. 4. Tobacco abuse with Polycythemia revealed by elevated hemoglobin of 18.5 gramper deciliter present on admission compounding #1 - #3 - Tobacco Cessation will be strongly encouraged with nicotine patch however to control cravings. Check RITA-2 mutation. 5. Overweight; with BMI of 29.3 this admission - Weight loss will be recommended. Check TSH. 6. ADHD; on dextroamphetamine-amphetamine BID - Hold this agent until further notice to prevent potentially spiking blood pressure. 7. Seasonal allergies; on loratadine - Maintain loratadine as before. 8. DVT prophylaxis - Enoxaparin 40 mg sq daily plus SCD's. Total time: Approximately (but not less than) 75 minutes. Charges/Coding Visit Charges Inpatient E&M: 74335 Init Hosp L3 10/31/24 0631 Cosigner Signature (if applicable): CC: Dr. Nehemiah Haney, ; No Primary Care Physician~ Signed [facility]07-31-2025 Discharge summary Author Domenico Silva [facility] Note Date/Time October 31, 2024 1:01 am [facility] Medical Records Department [address] [place] [address] Emergency Department Summary 10/30/24 MR#: [id number] Acct: [id number] Name: JAYDA OSHEA Rep #:[id number] : 1985 39 From: Domenico Poon PCP: Care Physician,No Primary Status :ADM IN Location: [address] History of Present Illness Chief Complaint: Stroke Alert Informant: patient and EMS Onset/Context/Timing Onset: Today Context: Sudden Onset Timing: Continuous Quality and Location: Positive for Left Arm Weakness and Left Leg Weakness Onset: Last known well was 1530 today (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 Patient's last known well was 3:30 PM today. Patient has been having weakness of her left upper and lower extremities. Patient denies any difficulty with her speech. Patient admits to a headache and some nausea. Patient denies any vomiting. Patient denies any chest pain. Patient denies any fevers or chills. [facility] Medical History (Updated 10/31/24 @ 00:[address] Domenico Silva DO) HTN (hypertension) ADHD Migraine Strain of great toe, right Contusion of right great toe without damage to nail Home Medications ?Medication ?Instructions ?Recorded ?Last Taken ?Type dextroamphetamine-amphetamine 15 25 mg PO BID 07/17/14 Unknown History mg tablet (Adderall) loratadine 10 mg tablet (Claritin) 10 mg PO DAILY PRN PRN Allergies 01/25/18 Unknown History clonidine HCl 0.1 mg tablet 0.1 mg PO Q6H PRN hyperten sive 11/27/23 Unknown Rx emergency #10 tabs dexamethasone sodium phosphate 0.1 1 drp ophthalmic (e ye) 4X/DAY 10/30/24 Unknown History % eye drops dextroamphetamine-amphetamine 30 1 tab PO BID 10/30/24 Unknown History mg tablet erythromycin 5 mg/gram (0.5 %) eye 1 applic ophthalmic (eye) QPM 10/30/24 Unknown History ointment rizatriptan 10 mg tablet 10 mg PO Q2H PRN migraine he adache 10/30/24 Unknown History Allergy/AdvReac Type Severity Reaction Status Date / Time codeine Allergy Unknown Verified 10/30/24 21:22 naproxen Allergy Hives Verified 10/30/24 21:22 Social History Smoking Status: Current every day smoker tobacco type: e-cigarettes EXAM Physical Exam Const Vital Signs: 10/30/24 20:41 10/30/24 20:50 10/30/24 20:50 Temperature 98 F Temperature Source Oral Pulse Rate 80 Respiratory Rate 17 Blood Pressure 222/121 H Blood Pressure Mean 154 Pulse Ox 100 Oxygen Delivery Method Room Air Room Air 10/30/24 21:00 10/30/24 21:15 10/30/24 21:30 Temperature Temperature Source Pulse Rate 70 68 Respiratory Rate 11 L 17 Blood Pressure 201/116 H 188/109 H 171/102 H Blood Pressure Mean 144 135 125 Pulse Ox 99 99 Oxygen Delivery Method Room Air Room Air 10/30/24 22:00 10/30/24 22:30 10/30/24 23:00 Temperature Temperature Source Pulse Rate 68 68 69 Respiratory Rate 15 14 15 Blood Pressure 172/97 H 160/107 H 162/99 H Blood Pressure Mean 122 124 120 Pulse Ox 98 99 100 Oxygen Delivery Method Room Air Room Air Room Air 10/30/24 23:14 Temperature 98 F Temperature Source Pulse Rate 72 Respiratory Rate 18 Blood Pressure 163/95 H Blood Pressure Mean 117 Pulse Ox 100 Oxygen Delivery Method Positive well nourished and well developed General Appearance ED: well developed and NAD HEENT Reports moist mucous membranes Neck supple and no JVD Resp normal respiratory effort and clear to auscultation bilaterally Cardio Rate: regular rate Rhythm: regular rhythm GI soft to palpation, non-tender and non-distended Extremity normal to inspection General Extremety ED: Negative for deformity or edema General Extremity: Negative for deformity or edema Neuro oriented x3 and CN's II-XII intact bilaterally Didier Coma Scale: document GCS findings Spontaneous Obeys Commands Oriented 15 Sensorium / Orientation: alert Speech: speech normal MDM MDM MDM Narrative Medical decision making narrative: Prehospital stroke alert was called. [facility] Patient had a left upper and lower extremity weakness. Patient was taken immediately to CT scan for CT scan of the brain to assess for intracranial bleeding and stroke. CTA of the head and neck was also obtained toassess for large vessel occlusion and vascular stenosis. Chest x-ray will be obtained to assess for pneumonia or bronchitis. EKG will be obtained to assess for cardiac dysrhythmia and cardiac ischemia. CBC will be obtained to assess for leukocytosis and anemia. Basic metabolic profile will be obtained to assessfor electrolyte abnormality renal function. PT with INR and PTT will be obtained to assess for coagulopathy. High-sensitivity troponin will be obtainedto assess for cardiac ischemia. 2-hour repeat high-sensitivity troponin will beobtained to assess for ongoing cardiac ischemia. Lab Data Attestation: I reviewed the patient's lab results. Lab results narrative: CBC was reviewed. Hemoglobin was slightly elevated at 18.5. Hematocrit was slightly elevated at 54.8. The remainder is within normal limits. PT with INR and PTT were reviewed and were within normal limits. Basic metabolic profile was reviewed and was essentially within normal limits. Initial high-sensitivitytroponin was reviewed and was less than 6. Labs: Laboratory Results - last 24 hr 10/30/24 10/30/24 20:40 22:45 WBC 10.5 RBC 6.08 H Hgb 18.5 H* Hct 54.8 H MCV 90.1 MCH 30.4 MCHC 33.8 RDW Std Deviation 39.9 RDW Coeff of Maria Teresa 12.1 Plt Count 311 MPV 10.0 Immature Gran % (Auto) 0.600 Neut % (Auto) 79.3 H Lymph % (Auto) 15.0 L [place] % (Auto) 4.2 Eos % (Auto) 0.4 Baso % (Auto) 0.5 Absolute Neuts (auto) 8.3 H Absolute Lymphs (auto) 1.57 Nucleated RBC % 0 PT 11.8 INR 0.9 APTT 25.8 Sodium 141 Potassium 3.4 Chloride 100 Carbon Dioxide 24.6 Anion Gap 16 H BUN 13 Creatinine 0.80 Estim Creat Clear Calc 93.24 Est GFR (MDRD) Non-Af 95 BUN/Creatinine Ratio 16.5 Glucose 92 Hemoglobin A1c 5.4 Calcium 10.5 Troponin T High Sens < 6 Troponin T Hi Sens 2 Hr < 6 TSH 3.230 Radiography Chest X-Ray - ED: 1 View, Read by ED Physician, Read by Radiologist and No AcuteDisease Diagnostic Testing: Clinical Impression(s) from Imaging Studies Brain CT 10/30/24 20:46 IMPRESSION: Left frontal lobe periventricular white matter focal hypodensity measuring approximally 7 x 7 mm, which may reflect a lacunar infarction however acute infarction is not entirely excluded. Dr. Silva was notified by Jeanette De Jesus at 9:01 pm EST on 10/30/24. Reading Location: [facility] Head/Neck CTA 10/30/24 20:52 IMPRESSION: No acute large vessel occlusion. No high grade stenosis. Reading Location: [facility] Chest X-Ray 10/30/24 21:41 IMPRESSION: No acute cardiopulmonary disease. Reading Location: [facility] CT scan of the brain was obtained. There is a left frontal lobe periventricularhypodensity measuring approximately 7 x 7 mm. This could be a lacunar infarct. This was interpreted by the radiologist and was also independently reviewed by myself. CTA of the head and neck was obtained. There is no acute large vessel occlusion. There is no high-grade stenosis. This was interpreted by the radiologist and was also independently reviewed by myself. Portable 1 view chest x-ray was obtained. On my independent interpretation, lung de leon are clear. There is normal cardiac silhouette. Bony thorax is normal. There is no acute process noted. Radiologist also interpreted the x-rayand agrees. EKG Initial EKG: Attestation: I personally reviewed and interpreted this EKG as follows: Interpretation: Sinus Rhythm (73) and No Acute Injury Pattern Comments: EKG was obtained. On my independent interpretation, it showed anormal sinus rhythm with a rate of 73. DC interval, QRS interval, and QTc intervals were all normal. Reserve was normal. There are no acute ST or T wave changes. Prior EKG tracings: available for review Prior: Unchanged (11/27/2023) Management Discussion w/another healthcare provider: Hospitalist, C2 Tactical Analysis Technician (Stroke neurologist [facility]) and Radiologist Treatment and Re-Evaluation Narrative: Patient was evaluated by stroke neurologist. Patient is outside the window for tenecteplase. Patient's blood pressure remained elevated. Patient was given labetalol for her blood pressure. Patient was given Reglan, Benadryl, and IV fluids for migraine headache. Patient states her headache improved after this. Patient was advised of her findings. Patient was advised of the need for admission to the hospital for further stroke evaluation. Patient is agreeable with this. Case was discussed with the hospitalist. He will admit the patient for observation. Patient understood and was agreeable with plan. All questionswere answered. Critical Care Time Critical Care Time: Yes Critical care time (excluding procedures): 30-74 minutes (36), Including time spent:, Discussing w/Patient &/or Family/Warehouse Representative, Discussing w/Consultants, Arranging Admission or Transfer and Performing Direct Patient Care at Bedside Discharge Plan Dx/Rx/DC Orders Clinical Impression: Acute left-sided weakness, Hypertension, Migraine headache, Overweight (BMI 25.0-29.9), Polycythemia Disposition Disposition: Acute Care Hospital [facility] Discharge Date/Time: 10/31/24 00:35 NIHSS NIHSS 1a. Level of Consciousness: 0 - Alert; keenly responsive 1b. LOC Questions: 0 - Answers BOTH questions correctly 1c. LOC Commands: 0 - Performs BOTH tasks correctly 2. Best Gaze: 0 - Normal 4. Facial Palsy: 0 - Normal symmetrical movements 5a. Left Arm: 1 - Drift; arm drifts downward but doesn?t hit the bed 5b. Right Arm: 0 - No drift; arm holds 90 (or 45) degrees for full 10 seconds 6a. Left Le - No effort against gravity; leg falls to bed immediately 6b. Right Le - No drift; leg holds 30-degree position for full 5 seconds 8. Sensory: 0 - Normal; no sensory loss 9. Best Language: 0 - No aphasia; normal 10. Dysarthria: 0 - Normal Total: 4 Stroke Questions Stroke Team Activated: Yes Reviewed Inclusion/Exclusion criteria: Yes IV Thrombolytic Administered: No (Patient's symptoms began more than 3 hours prior to arrival.) What to do if you have Problems For any increased pain, shortness of breath, bleeding, nausea or vomiting, chestpain, or any unexpected problems, contact your Primary Care Provider. Call [facility] ([phone]) or report to the closest Emergency Room. Call 911 if necessary. 10/31/24 0101 <Electronically signed by Domenico Silva DO> Cosigner Signature (if applicable): CC: No Primary Care Physician ~ Signed [facility] Work Phone: 1(469) 141-367907-31-2025 Discharge summary [facility] Medical Records Department [address] [place] [address] Emergency Department Summary 10/30/24 MR#: [id number] Acct: [id number] Name: JAYDA OSHEA Rep #:[id number] : 1985 39 From: Domenico Poon PCP: Care Physician,No Primary Status :ADM IN Location: [address] History of Present Illness Chief Complaint: Stroke Alert Informant: patient and EMS Onset/Context/Timing Onset: Today Context: Sudden Onset Timing: Continuous Quality and Location: Positive for Left Arm Weakness and Left Leg Weakness Onset: Last known well was 1530 today (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 Patient's last known well was 3:30 PM today. Patient has been having weakness of her left upper and lower extremities. Patient denies any difficulty with her speech. Patient admits to a headache and some nausea. Patient denies any vomiting. Patient denies any chest pain. Patient denies any fevers or chills. [facility] Medical History (Updated 10/31/24 @ 00:[address] Domenico Silva DO) HTN (hypertension) ADHD Migraine Strain of great toe, right Contusion of right great toe without damage to nail Home Medications ?Medication ?Instructions ?Recorded ?Last Taken ?Type dextroamphetamine-amphetamine 15 25 mg PO BID 07/17/14 Unknown History mg tablet (Adderall) loratadine 10 mg tablet (Claritin) 10 mg PO DAILY PRN PRN Allergies 01/25/18 Unknown History clonidine HCl 0.1 mg tablet 0.1 mg PO Q6H PRN hyperten sive 11/27/23 Unknown Rx emergency #10 tabs dexamethasone sodium phosphate 0.1 1 drp ophthalmic (e ye) 4X/DAY 10/30/24 Unknown History % eye drops dextroamphetamine-amphetamine 30 1 tab PO BID 10/30/24 Unknown History mg tablet erythromycin 5 mg/gram (0.5 %) eye 1 applic ophthalmic (eye) QPM 10/30/24 Unknown History ointment rizatriptan 10 mg tablet 10 mg PO Q2H PRN migraine he adache 10/30/24 Unknown History Allergy/AdvReac Type Severity Reaction Status Date / Time codeine Allergy Unknown Verified 10/30/24 21:22 naproxen Allergy Hives Verified 10/30/24 21:22 Social History Smoking Status: Current every day smoker tobacco type: e-cigarettes EXAM Physical Exam Const Vital Signs: 10/30/24 20:41 10/30/24 20:50 10/30/24 20:50 Temperature 98 F Temperature Source Oral Pulse Rate 80 Respiratory Rate 17 Blood Pressure 222/121 H Blood Pressure Mean 154 Pulse Ox 100 Oxygen Delivery Method Room Air Room Air 10/30/24 21:00 10/30/24 21:15 10/30/24 21:30 Temperature Temperature Source Pulse Rate 70 68 Respiratory Rate 11 L 17 Blood Pressure 201/116 H 188/109 H 171/102 H Blood Pressure Mean 144 135 125 Pulse Ox 99 99 Oxygen Delivery Method Room Air Room Air 10/30/24 22:00 10/30/24 22:30 10/30/24 23:00 Temperature Temperature Source Pulse Rate 68 68 69 Respiratory Rate 15 14 15 Blood Pressure 172/97 H 160/107 H 162/99 H Blood Pressure Mean 122 124 120 Pulse Ox 98 99 100 Oxygen Delivery Method Room Air Room Air Room Air 10/30/24 23:14 Temperature 98 F Temperature Source Pulse Rate 72 Respiratory Rate 18 Blood Pressure 163/95 H Blood Pressure Mean 117 Pulse Ox 100 Oxygen Delivery Method Positive well nourished and well developed General Appearance ED: well developed and NAD HEENT Reports moist mucous membranes Neck supple and no JVD Resp normal respiratory effort and clear to auscultation bilaterally Cardio Rate: regular rate Rhythm: regular rhythm GI soft to palpation, non-tender and non-distended Extremity normal to inspection General Extremety ED: Negative for deformity or edema General Extremity: Negative for deformity or edema Neuro oriented x3 and CN's II-XII intact bilaterally Mclean Coma Scale: document GCS findings Spontaneous Obeys Commands Oriented 15 Sensorium / Orientation: alert Speech: speech normal MDM MDM MDM Narrative Medical decision making narrative: Prehospital stroke alert was called. Upon arrival, patient was evaluated in [facility]. Patient had a left upper and lower extremity weakness. Patient was taken immediately to CT scan for CT scan of the brain to assess for intracranial bleeding and stroke. CTA of the head and neck was also obtained toassess for large vessel occlusion and vascular stenosis. Chest x-ray will be obtained to assess for pneumonia or bronchitis. EKG will be obtained to assess for cardiac dysrhythmia and cardiacischemia. CBC will be obtained to assess for leukocytosis and anemia. Basic metabolic profile will be obtained to assessfor electrolyte abnormality renal function. PT with INR and PTT will be obtained to assess for coagulopathy. High-sensitivity troponin will be obtainedto assess for cardiac ischemia. 2-hour repeat high-sensitivity troponin will beobtained to assess for ongoing cardiac ischemia. Lab Data Attestation: I reviewed the patient's lab results. Lab results narrative: CBC was reviewed. Hemoglobin was slightly elevated at 18.5. Hematocrit was slightly elevated at 54.8. The remainder is within normal limits. PT with INR and PTT were reviewed and were within normal limits. Basic metabolic profile was reviewed and was essentially within normal limits. Initial high-se nsitivitytroponin was reviewed and was less than 6. Labs: Laboratory Results - last 24 hr 10/30/24 10/30/24 20:40 22:45 WBC 10.5 RBC 6.08 H Hgb 18.5 H* Hct 54.8 H MCV 90.1 MCH 30.4 MCHC 33.8 RDW Std Deviation 39.9 RDW Coeff of Maria Teresa 12.1 Plt Count 311 MPV 10.0 Immature Gran % (Auto) 0.600 Neut % (Auto) 79.3 H Lymph % (Auto) 15.0 L [place] % (Auto) 4.2 Eos % (Auto) 0.4 Baso % (Auto) 0.5 Absolute Neuts (auto) 8.3 H Absolute Lymphs (auto) 1.57 Nucleated RBC % 0 PT 11.8 INR 0.9 APTT 25.8 Sodium 141 Potassium 3.4 Chloride 100 Carbon Dioxide 24.6 Anion Gap 16 H BUN 13 Creatinine 0.80 Estim Creat Clear Calc 93.24 Est GFR (MDRD) Non-Af 95 BUN/Creatinine Ratio 16.5 Glucose 92 Hemoglobin A1c 5.4 Calcium 10.5 Troponin T High Sens < 6 Troponin T Hi Sens 2 Hr < 6 TSH 3.230 Radiography Chest X-Ray - ED: 1 View, Read by ED Physician, Read by Radiologist and No AcuteDisease Diagnostic Testing: Clinical Impression(s) from Imaging Studies Brain CT 10/30/24 20:46 IMPRESSION: Left frontal lobe periventricular white matter focal hypodensity measuring approximally 7 x 7 mm, which may reflect a lacunar infarction however acute infarction is not entirely excluded. Dr. Silva was notified by Jeanette De Jesus at 9:01 pm EST on 10/30/24. Reading Location: [facility] Head/Neck CTA 10/30/24 20:52 IMPRESSION: No acute large vessel occlusion. No high grade stenosis. Reading Location: [facility] Chest X-Ray 10/30/24 21:41 IMPRESSION: No acute cardiopulmonary disease. Reading Location: [facility] CT scan of the brain was obtained. There is a left frontal lobe periventricularhypodensity measuring approximately 7 x 7 mm. This could be a lacunar infarct. This was interpreted by the radiologist and was also independently reviewed by myself. CTA of the head and neck was obtained. There is no acute large vessel occlusion. There is no high-grade stenosis. This was interpreted by the radiologist and was also independently reviewed by myself. Portable 1 view chest x-ray was obtained. On my independent interpretation, lung de leon are clear. There is normal cardiac silhouette. Bony thorax is normal. There is no acute process noted. Radiologist also interpreted the x-rayand agrees. EKG Initial EKG: Attestation: I personally reviewed and interpreted this EKG as follows: Interpretation: Sinus Rhythm (73) and No Acute Injury Pattern Comments: EKG was obtained. On my independent interpretation, it showed anormal sinus rhythm with arate of 73. DC interval, QRS interval, and QTc intervals were all normal. Reserve was normal. There are no acute ST or T wave changes. Prior EKG tracings: available for review Prior: Unchanged (11/27/2023) Management Discussion w/another healthcare provider: Hospitalist, C2 Tactical Analysis Technician (Stroke neurologist [facility]) and Radiologist Treatment and Re-Evaluation Narrative: Patient was evaluated by stroke neurologist. Patient is outside the window for tenecteplase. Patient's blood pressure remained elevated. Patient was given labetalol for her blood pressure. Patient was given Reglan, Benadryl, and IV fluids for migraine headache. Patient states her headache improved after this. Patient was advised of her findings. Patient was advised of the need for admission to the hospital for further stroke evaluation. Patient is agreeable with this. Case was discussed with the hospitalist. He will admit the patient for observation. Patient understood and was agreeable with plan. All questionswere answered. Critical Care Time Critical Care Time: Yes Critical care time (excluding procedures): 30-74 minutes (36), Including time spent:, Discussing w/Patient &/or Family/Warehouse Representative, Discussing w/Consultants, Arranging Admission or Transfer and Performing Direct Patient Care at Bedside Discharge Plan Dx/Rx/DC Orders Clinical Impression: Acute left-sided weakness, Hypertension, Migraine headache, Overweight (BMI 25.0-29.9), Polycythemia Disposition Disposition: Acute Care Hospital [facility] Discharge Date/Time: 10/31/24 00:35 NIHSS NIHSS 1a. Level of Consciousness: 0 - Alert; keenly responsive 1b. LOC Questions: 0 - Answers BOTH questions correctly 1c. LOC Commands: 0 - Performs BOTH tasks correctly 2. Best Gaze: 0 - Normal 4. Facial Palsy: 0 - Normal symmetrical movements 5a. Left Arm: 1 - Drift; arm drifts downward but doesn?t hit the bed 5b. Right Arm: 0 - No drift; arm holds 90 (or 45) degrees for full 10 seconds 6a. Left Le - No effort against gravity; leg falls to bed immediately 6b. Right Le - No drift; leg holds 30-degree position for full 5 seconds 8. Sensory: 0 - Normal; no sensory loss 9. Best Language: 0 - No aphasia; normal 10. Dysarthria: 0 - Normal Total: 4 Stroke Questions Stroke Team Activated: Yes Reviewed Inclusion/Exclusion criteria: Yes IV Thrombolytic Administered: No (Patient's symptoms began more than 3 hours prior to arrival.) What to do if you have Problems For any increased pain, shortness of breath, bleeding, nausea or vomiting, chestpain, or any unexpected problems, contact your Primary Care Provider. Call [facility] ([phone]) or report tothe closest Emergency Room. Call 911 if necessary. 10/31/24100 Cosigner Signature (if applicable): CC: No Primary Care Physician ~ Signed [facility]07-30-2025 Radiology Diagnostic study note [facility] Imaging Services [address] [place] [address] Chest 1 View MR#: [id number] Acct: [id number] Name: JAYDA OSHEA Rep #: [id number] : 1985 F 39 From: Lyndon Hammond MD PCP: Care Physician,No Primary Status: REG ER Study:Chest 1 View Date of Exam: 5 Exam# [id number] Ordering Dr: Domenico Silva DO PROCEDURE: CHEST 1 VIEW 10/30/2024 REASON FOR EXAM: NEURO DEFICIT, ACUTE, STROKE SUSPECTED TECHNIQUE: Frontal view of the chest. COMPARISON: 11/27/2023 FINDINGS: Lungs/Pleura: Clear. Heart/Mediastinum: Normal in size. Bones/Soft tissues: Within normal limits. RAD/Chest 1 View IMPRESSION: No acute cardiopulmonary disease. Reading Location: [facility] CC: Dr. Domenico Silva DO; No Primary Care Physician ~ Carpenter Assembler: Signed [facility]07-30-2025 Radiology Diagnostic study note [facility] Imaging Services [address] [place] [address] STROKE CTA Head AND Neck W/Con MR#: [id number] Acct: [id number] Name: JAYDA OSHEA Rep #: [id number] : 1985 F 39 From: Taylor De Jesus MD PCP: Care Physician,No Primary Status: REG ER Study:STROKE CTA Head AND Neck W/Con Date of Exam: 10/30/24 Exam# [id number] Ordering Dr: Domenico Silva DO PROCEDURE: STROKE CTA HEAD AND NECK W/CON 10/30/2024 REASON FOR EXAM: NEURO DEFICIT, ACUTE, STROKE SUSPECTED TECHNIQUE: STROKE CTA HEAD AND NECK W/CON Multiplanar Sagittal and Coronal images were obtained. CONTRAST: 100 mL of Isovue 370 One or more dose reduction techniques were used (e.g., Automated exposure control, adjustment of the mA and/or kV according to patient size, use of iterative reconstruction technique). RADIATION DOSE SUMMARY: DLP: 987 mGycm COMPARISON: none FINDINGS: The aortic arch demonstrates a type I configuration. The ostia of the great vessels are patent. There is conventional branching. The right CCA is patent. There is no significant stenosis of the right carotid bifurcation by NASCET criteria. The cervical right ICA is patent. The right MCA and right CARMEN appear patent. There is no large vessel occlusion. The left CCA is patent. There is no significant stenoses at the left carotid bifurcation by NASCET criteria. The cervical left ICA is patent. The left MCA and left CARMEN appear patent. There is no large vessel occlusion. The right vertebral artery arises from the right subclavian artery. The left vertebral artery arises from the left subclavian artery. Both vertebral arteries are patent. Both vertebral arteries join to form the patent basilarartery. Both posterior cerebral arteries arise from the tip of the basilar. Both proximal CONSUMER INSIGHT MANAGER segmentsare patent. There isno large vessel occlusion. There is no enhancing intracranial mass. Shotty cervical lymph nodes are identified. The thyroid gland is heterogeneous. The lung apices demonstrate no pneumothorax. No destructive osseous abnormalities identified. CT/STROKE CTA Head AND Neck W/Con IMPRESSION: No acute large vessel occlusion. No high grade stenosis. Reading Location: [facility] CC: Dr. Domenico Silva, ; No Primary Care Physician ~ Carpenter Assembler: Signed [facility]07-30-2025 Radiology Diagnostic study note [facility] Imaging Services [address] [place] [address] STROKE Brain/Head without Cont MR#: [id number] Acct: [id number] Name: JAYDA OSHEA Rep #: [id number] : 1985 F 39 From: Taylor De Jesus MD PCP: Care Physician,No Primary Status: REG ER Study:STROKE Brain/Head without Cont Date of Exam: 10/30/24 Exam# [id number] Ordering Dr: Domenico Silva DO PROCEDURE: STROKE BRAIN/HEAD WITHOUT CONT 10/30/2024 REASON FOR EXAM: NEURO DEFICIT, ACUTE, STROKE SUSPECTED TECHNIQUE: STROKE BRAIN/HEAD WITHOUT CONT Coronal and Sagittal reconstruction series were provided. One or more dose reduction techniques were used (e.g., Automated exposure control, adjustment of the mA and/or kV according to patient size, use of iterative reconstruction technique. RADIATION DOSE SUMMARY: DLP: 813 mGycm COMPARISON: none FINDINGS: Left frontal lobe periventricular white matter focal hypodensity measuring approximally 7 x 7 mm, which may reflect a lacunar infarction however acute infarction is not entirely excluded. There is no intracranial hemorrhage, or mass effect. There is no hydrocephalus or significant midline shift. No acute, depressed calvarial fractures. No large scalp hematomas. The paranasal sinuses are clear. CT/STROKE Brain/Head without Cont IMPRESSION: Left frontal lobe periventricular white matter focal hypodensity measuring approximally 7 x 7 mm, which may reflect a lacunar infarction however acute infarction is not entirely excluded. Dr. Silva was notified by Jeanette De Jesus at 9:01 pm EST on 10/30/24. Reading Location: [facility] CC: Dr. Domenico Silva DO; No Primary Care Physician ~ Carpenter Assembler: Signed [facility]05-19-2025 Evaluation note* Diagnosis Onset Date Resolution Status Admit Date Contusion of right great toe without damage to nail acute August 19, 2024 10:40am Strain of great toe, right acute August 19, 2024 10:40am Acute left-sided weakness acute October 30, 2024 11:35pm ADHD acute October 30 11:35pm Ischemic cerebrovascular acc ident (CVA) acute October 30, 2024 11:35pm Migraine headache acute October 302024 11:35pm Overweight (BMI 25.0-29.9) acute October 30, 2024 11:35pm Hypertension chronic October 30, 025 11:35pm [facility] Work Phone: 1(934) 367-479105-19-2025 Evaluation note* Diagnosis Onset Date Resolution Status Admit Date Contusion of right great toe without damage to nail acute August 19, 2024 10:40am Strain of great toe, right acute August 19, 2024 10:40am Acute left-sided weakness acute October 30, 2024 11:35pm ADHD acute October 30 11:35pm Ischemic cerebrovascular acc ident (CVA) acute October 30, 2024 11:35pm Migraine headache acute October 302024 11:35pm Overweight (BMI 25.0-29.9) acute October 30, 2024 11:35pm Polycythemia acute October 30, 025 11:35pm Tobacco abuse acute October 30, 2024 11:35pm Hypertension chronic October 30, 025 11:35pm [facility] Work Phone: 1(210) 343-195308-26-2024 NoteHNO ID: [id number] Author: VONNIE DICKERSON APRN.MARY Service: ? Author Type: Nurse Practitioner Type: Progress Notes Filed: 11/27/2023 11:37 Note Text: Patient triaged at [facility]. Here today with sob, left arm pain, elevated bp. Bp 190/110. I will refer to ER. Patient declines squad. Patient in no visible distress at time of triage.[facility]08-26-2024 History of Present illness Narrative* Vonnie Dickerson APRN.CNP - 11/27/2023 11:35 AM EDT Patient triaged at [facility]. Here today with sob, left arm pain, elevated bp. Bp 190/110. I will refer to ER. Patient declines squad. Patient in no visible distress at time of triage. [facility] Author Vee Stuart [facility] Note Date/Time November 01, 2024 2:3 0pm [facility] Medical Records Department [address] [place] [address] Instructions for Home/Discharge Instructions 11/01/24 1422 MR#: [id number] Acct: [id number] Name: JAYDA OSHEA Rep #:[id number] : 1985 39 From: Vee Stuart MD PCP: Care Physician,No Primary Status :ADM IN Discharge Instructions DC O2, CPAP, BIPAP needs Home O2 Discharge instructions: No Dressing / Incision Discharge Activity: - (Discharging to [facility]) Follow Up Care Test Results: Test results from this visit will be discussed in further detail at your follow- up appointment, if applicable. Discharge Plan Admission Admit Date/Time: 10/30/24 23:35 Primary Reason for Your Visit: Left hemiparesis Attending Provider: Vee Stuart Primary Care Provider: Care Physician,No Primary Consulting Providers: David Gale; Ehsan Uriarte; Sheeba Rodriguez; Lydia Orantes; Renee Cleveland; Kyle Ghosh; Leidy Mckinnon; Reagan White; Tong Rai; Juaquin Campos; Shakira Anthony; Aaron Chavez; Sherry Lugo; Natalya Arredondo; Hemanth Reyna; Ajay Johnson; Melissa Haywood; Isac Levi; Meme Pepe; Mark Garcias;Nehemiah Haney; Sen Clarke Instructions Patient Instructions: Discharge Instructions for Stroke Additional Instructions / Restrictions: DISCHARGE INSTRUCTIONS PLEASE READ *Please take this with you to your next doctors appointment* - It was recommended by neurology that a 30-day event monitor be prescribed on discharge, this order has been entered - You will need to follow-up with neurology after discharge, a referral to [facility] neurology will be made - You have been started on lisinopril 10 mg, given how high your blood pressure has been it is also advised that you start 12.5 mg of hydrochlorothiazide tomorrow as well and uptitrate both of these as tolerated, ultimately goal bloodpressure less than 130/85 -Would recommend lab work (BMP) to check your potassium and kidney function in 3to 4 days - You have been started on aspirin 81 mg and atorvastatin 80 mg, you will need to take these lifelong - Smoking cessation is strongly advised - Rizatriptan as needed for migraine headaches has been discontinued on discharge due to her stroke - May need to consider tapering Adderall or start alternate agents if patient's blood pressure continues to be difficult to control - Family indicated the patient has chronic headaches and follows with neurology,would recommend she continue following on discharge for further evaluation and treatment -Please call your primary care provider's office upon discharge to schedule a hospital follow up within 1 week. -If you do not have a primary care physician of list of local primary care physicians can be provided for you upon discharge. Please ask for this list prior to discharge -For any concerning signs or symptoms please call 911 or proceed to the nearest emergency department Discharge Orders/Prescriptions Prescriptions: New cyclobenzaprine 10 mg Tablet 10 mg PO TID PRN PRN (Reason: Muscle Spasm) Qty: 0 0RF atorvastatin 80 mg Tablet 80 mg PO QHS Qty: 0 0RF lisinopril 10 mg Tablet 10 mg PO DAILY Qty: 0 0RF hydrochlorothiazide 12.5 mg Capsule 12.5 mg PO DAILY Qty: 0 0RF aspirin 81 mg Tablet,Chewable 81 mg PO DAILYCM Qty: 0 0RF Continued loratadine [Claritin] 10 MG tablet 10 mg PO DAILY PRN PRN (Reason: Allergies) dexamethasone sodium phosphate 0.1 % drops 1 drp ophthalmic (eye) 4X/DAY dextroamphetamine-amphetamine 30 mg tablet 1 tab PO BID erythromycin 5 mg/gram (0.5 %) ointment 1 applic ophthalmic (eye) QPM Discontinued dextroamphetamine-amphetamine [Adderall] 15 MG tablet 25 mg PO BID clonidine HCl 0.1 mg tablet 0.1 mg PO Q6H PRN (Reason: hypertensive emergency) Qty: 10 0RF rizatriptan 10 mg tablet 10 mg PO Q2H PRN (Reason: migraine headache) Other Ambulatory Orders: 30 Day Event Recorder Preventi (Urgent) Timeframe: 1 Day Facility: [facility] - Location: Cardiovascular Services Ordered By: Dr. Vee Stuart Referrals / Follow Up: [facility] [Other] (A referral will be sent to [facility] for follow-up) Care Physician,No Primary [Primary Care Provider] - ( -If you do not have a primary care physician of list of local primary care physicians can be provided for you upon discharge. Please ask for this list prior to discharge ) Disposition Disposition (needs filled in before D/C Order can be placed): Inpatient Rehab Unit/Facility 11/01/24 1430<Electronically signed by Vee Stuart MD>Vee Stuart MD CC: Lydia Orantes; Sherry Lugo; Ajay Johnson; Renee Cleveland MD; Sheeba Rodriguez MD; David Gale MD; Dr. Ehsan Uriarte MD; Dr. Nehemiah Haney DO; Dr. Kyle Ghosh MD; Dr. Leidy Mckinnon MD; Dr. Tong Rai MD; Dr. Reagan White MD;Dr. Juaquin Campos MD; Dr. Aaron Chavez DO; Dr. Hemanth Reyna MD; Dr.Mohamed Arnulfo MD; Dr. Sen Clarke MD; Dr. Melissa Haywood MD; Dr. Sandra MD; Dr. Meme Pepe MD; Shakira Anthony DO; No Primary Care Physician; Mark Garcias MD ~ Signed [facility] Work Phone: Evaluation note* Diagnosis Chest pressure- Primary Other chest pain documented in this encounter [facility] noteNo assessment information availableProvidence Mission Hospital Work Phone: Hospital Discharge instructionsAdditional Instructions DISCHARGE INSTRUCTIONS PLEASE READ *Please take this with you to your next doctors appointment* - It was recommended by neurology that a 30-day event monitor be prescribed on discharge, this order has been entered - You will need to follow-up with neurology after discharge, a referral to [facility] will be made - You have been started on lisinopril 10 mg, given how high your blood pressure has been it is also advised that you start 12.5 mg of hydrochlorothiazide tomorrow as well and uptitrate both of these as tolerated, ultimately goal blood pressure less than 130/85 -Would recommend lab work (BMP) to check your potassium and kidney function in 3 to 4 days - You have been started on aspirin 81 mg and atorvastatin 80 mg, you will need to take these lifelong - Smoking cessation is strongly advised - Rizatriptan as needed for migraine headaches has been discontinued on discharge due to her stroke - May need to consider tapering Adderall or start alternate agents if patient's blood pressure continues to be difficult to control - Family indicated the patient has chronic headaches and follows with neurology, would recommend she continue following on discharge for further evaluation and treatment -Please call your primary care provider's office upon discharge to schedule a hospital follow up within 1 week. -If you do not have a primary care physician of list of local primary care physicians can be provided for you upon discharge. Please ask for this list prior to discharge -For any concerning signs or symptoms please call 911 or proceed to the nearest emergency departmentWLakeHealth [facility] Work Phone: Reason for referral (narrative)No reason for referral information availableSt. Elizabeth [facility] Work Phone: Summary Purpose Family History No Family History Records FoundNo Family History Records Found Advance Directives No Advanced Directives Records Found Advance Directive Response Recorded Date/ Time Do you have a Healthcare Power of Station [employer]? No October 30, 2024 9:22pm Advance Directive Response Recorded Date/ Time Do you have a Healthcare Power of Station Baggage [employer]? No October 31, 2024 12:41am Chief Complaint and Reason for Visit Chief Complaint Admit Date R FOOT INJURY August 19, 2024 10:40 am pain- RIGHT FOOT August 19, 2024 10:57 am Chief Complaint Admit Date R FOOT INJURY August 19, 2024 10:40 am pain- RIGHT FOOT August 19, 2024 10:57 am ISCHEMIC CVA WITH LEFT SIDED WEAKNESS Ju ly 2024 11:35pm Reason for Visit Admit Date Contusion of right great toe without dam age to nail August 19, 2024 10:40am Strain of great toe, right August 19 10:40am Acute left-sided weakness October 30 11:35pm ADHD October 30, 2024 11:3 5pm Ischemic cerebrovascular accident (CVA) October 30, 2024 11:35pm Migraine headache October 30, 2024 11:3 5pm Overweight (BMI 25.0-29.9) October 30 11:35pm Hypertension October 30, 2024 11:3 5pm Chief Complaint Admit Date R FOOT INJURY August 19, 2024 10:40 am pain- RIGHT FOOT August 19, 2024 10:57 am ISCHEMIC CVA WITH LEFT SIDED WEAKNESS Ju ly 2024 11:35pm ISCHEMIC CVA WITH LEFT SIDED WEAKNESS Ju ly 2024 9:38am Reason for Visit Admit Date Contusion of right great toe without dam age to nail August 19, 2024 10:40am Strain of great toe, right August 19 10:40am Acute left-sided weakness October 30 11:35pm ADHD October 30, 2024 11:3 5pm Ischemic cerebrovascular accident (CVA) October 30, 2024 11:35pm Migraine headache October 30, 2024 11:3 5pm Overweight (BMI 25.0-29.9) October 30 11:35pm Polycythemia October 30, 2024 11:3 5pm Tobacco abuse October 30, 2024 11:3 5pm Hypertension October 30, 2024 11:3 5pm Additional Source Comments Source Comments (unrecognize d section and content) In the event this informatio n is protected by the Federal Confidentiality of Alcohol and Drug Abuse Patient Records regulations: The Federal rules restrict any use of the information to criminally investigate or prosecute any alcohol or drug abuse patient.[facility] Reason for Visit (unrecogniz ed section and content) Reason Comments Shortness of Breath INFORMATION SOURCE (unrecogn ized section and content) DATE CREATED AUTHOR 11/28/2023 [facility] DATE CREATED AUTHOR AUTHOR'S ROHINI ATION [facility] Care Teams (unrecognized sec tion and content) Team Status: Active Member Role Status Dates No Primary Care Physician Primary Care Provider Active Team Status: Inactive Member Role Status Dates No Primary Care Physician Primary Care Provider Active Start: August 19, 2024 End: August 19, 2024 No Primary Care Physician Referring Provider Active Start: August 19, 2024 End: August 19, 2024 Yefri PIERCE PA Attending Provider Active Start: August 19, 2024 End: August 19, 2024 Team Status: Active Member Role Status Dates No Primary Care Physician Primary Care Provider Active Start: August 19, 2024 Yefri PIERCE PA Attending Provider Active Start: August 19, 2024 STAN Tai Referring Provider Active Start: August 19, 2024 Team Status: Active Member Role/Relationship Status Dates No Primary Care Physician Primary Care Provider Active Team Status: Inactive Member Role/Relationship Status Dates No Primary Care Physician Primary Care Provider Active Start: August 19, 2024 End: August 19, 2024 No Primary Care Physician Referring Provider Active Start: August 19, 2024 End: August 19, 2024 Yefri PIERCE PA Attending Provider Active Start: August 19, 2024 End: August 19, 2024 Team Status: Inactive Member Role/Relationship Status Dates No Primary Care Physician Primary Care Provider Active Start: August 19, 2024 End: August 19, 2024 Yefri PIERCE PA Attending Provider Active Start: August 19, 2024 End: August 19, 2024 Yefri PIERCE PA Referring Provider Active Start: August 19, 2024 End: August 19, 2024 Team Status: Active Member Role/Relationship Status Dates No Primary Care Physician Primary Care Provider Active Start: October 30, 2024 Dr. Domenico Silva , DO Emergency Provider Active Start: October 30, 2024 Dr. Nehemiah Haney , DO Admit Provider Active Start: October 30, 2024 Dr. Nehemiah Haney , Attending Provider Active Start: October 30, 2024 Team Status: Inactive Member Role/Relationship Status Dates No Primary Care Physician Primary Care Provider Active Start: October 30, 2024 End: November 01, 2024 Dr. Domenico Silva , Emergency Provider Active Start: October 30, 2024 End: November 01, 2024 Dr. Nehemiah Haney DO Admit Provider Active Start: October 30, 2024 End: November 01, 2024 Dr. Nehemiah Haney DO Other Provider Active Start: October 30, 2024 End: November 01, 2024 David Gale MD Other Provider Active Start: 2024 End: November 01, 2024 Dr. Ehsan Uriarte MD Other Provider Active Start: October 30, 2024 End: November 01, 2024 Sheeba Rodriguez MD Other Provider Active Start : October 30, 2024 End: November 01, 2024 Dr. Lydia Orantes DO Other Provider Active St art: October 30, 2024 End: November 01, 2024 Dr. Renee Cleveland MD Other Provider Active Start: October 30, 2024 End: November 01, 2024 Dr. Kyle Ghosh MD Other Provider Active Sta rt: October 30, 2024 End: November 01, 2024 Dr. Leidy Mckinnon MD Other Provider Active Start : October 30, 2024 End: November 01, 2024 Dr. Reagan White MD Other Provider Active Start: October 30, 2024 End: November 01, 2024 Dr. Tong Rai MD Other Provider Active Start : October 30, 2024 End: November 01, 2024 Dr. Juaquin Campos MD Other Provider Active Sta rt: October 30, 2024 End: November 01, 2024 Shakira Anthony MD Other Provider Active Start : October 30, 2024 End: November 01, 2024 Dr. Aaron Chavez MD Other Provider Active St art: October 30, 2024 End: November 01, 2024 Dr. Sherry Lugo MD Other Provider Active Start : October 30, 2024 End: November 01, 2024 Dr. Natalya Arredondo MD Other Provider Active Sta rt: October 30, 2024 End: November 01, 2024 Dr. Hemanth Reyna MD Other Provider Active Start: October 30, 2024 End: November 01, 2024 Dr. Ajay Johnson MD Other Provider Active St art: October 30, 2024 End: November 01, 2024 Dr. Melissa Haywood MD Other Provider Active Star t: October 30, 2024 End: November 01, 2024 Dr. Isac Levi MD Other Provider Active St art: October 30, 2024 End: November 01, 2024 Dr. Meme Pepe MD Other Provider Active Start: October 30, 2024 End: November 01, 2024 Mark Garcias MD Other Provider Active Start: October 30, 2024 End: November 01, 2024 Dr. Vee Stuart MD Attending Provider Active Start: October 30, 2024 End: November 01, 2024 Dr. Sen Clarke MD Other Provider Active Start: October 30, 2024 End: November 01, 2024 Team Status: Active Member Role/Relationship Status Dates No Primary Care Physician Primary Care Provider Active Start: October 31, 2024 Dr. Domenico Silva DO Emergency Provider Active Start: October 31, 2024 Dr. Nehemiah Haney DO Admit Provider Active Start: October 31, 2024 Dr. Nehemiah Haney DO Other Provider Active Start: October 31, 2024 David Gale MD Other Provider Active Start: 2024 Dr. Ehsan Uriarte MD Other Provider Active Start: October 31, 2024 Sheeba Rodriguez MD Other Provider Active Start : October 31, 2024 Dr. Lydia Orantes DO Other Provider Active St art: October 31, 2024 Dr. Renee Cleveland MD Other Provider Active Start: October 31, 2024 Dr. Kyle Ghosh MD Other Provider Active Sta rt: October 31, 2024 Dr. Leidy Mckinnon MD Other Provider Active Start : October 31, 2024 Dr. Reagan White MD Other Provider Active Start: October 31, 2024 Dr. Tong Rai MD Other Provider Active Start : October 31, 2024 Dr. Juaquin Campos MD Other Provider Active Sta rt: October 31, 2024 Shakira Anthony MD Other Provider Active Start : October 31, 2024 Dr. Aaron Chavez MD Other Provider Active St art: October 31, 2024 Dr. Sherry Lugo MD Other Provider Active Start : October 31, 2024 Dr. Natalya Arredondo MD Other Provider Active Sta rt: October 31, 2024 Dr. Hemanth Reyna MD Other Provider Active Start: October 31, 2024 Dr. Ajay Johnson MD Other Provider Active St art: October 31, 2024 Dr. Melissa Haywood MD Other Provider Active Star t: October 31, 2024 Dr. Isac Levi MD Other Provider Active St art: October 31, 2024 Dr. Meme Pepe MD Other Provider Active Start: October 31, 2024 Mark Garcias MD Other Provider Active Start: October 31, 2024 Dr. Sen Clarke MD Attending Provider Active Start: October 31, 2024 Dr. Sen Clarke MD Other Provider Active Start: October 31, 2024 Team Status: Active Member Role/Relationship Status Dates No Primary Care Physician Primary Care Provider Active Start: October 31, 2024 Dr. Law Eduardo MD Attending Provider Active S tart: October 31, 2024 Goals (unrecognized section and content) Goals may be documented in a n alternate sectionGoals may be documented in an alternate section FOR RECORDS PERTAINING TO PATIENTS [...] BE BASED ON THE PRIMARY CLINICAL RECORDS. [employer] provides no warranty or guarantee of the accuracy or completeness of information in this document.
--- OUTSIDE RECORDS SUMMARY | 2024-11-04 22:10 | XMS RPT_ITS | CCD ---
Author Organization [facility] Care Team Providers Care Pipe Recovery Specialist Name Role Phone Unavailable Primary Care Provider Unavailabl e Care Physician, No Primary Primary Care Provider Unavailable Care Physician, No Primary Referring Provider Un available Yefri Mancera Attending Provider Yefri Mancera Referring Provider [phone] Dr. Domenico Silva DO Emergency Provider Haney DO, Dr. Cerna Admit Provider Unavail able Dr. Nehemiah Haney DO Attending Provider Unav ailable Haney DO, Dr. Cerna Other Provider Unavail able David Gale MD Other Provider Unavailable Dr. Ehsan Uriarte MD Other Provider [phone] Sheeba Rodriguez MD Other Provider Unavailable Dr. Lydia Orantes DO Other Provider Dr. Renee Cleveland MD Other Provider Dr. Kyle Ghosh MD Other Provider Dr. Leidy Mckinnon MD Other Provider Dr. Reagan White MD Other Provider [phone] Tong Rai MD Other Provider [phone] Andres SCHWAB, Dr. Reza Other Provider Shakira Anthony MD Other Provider Dr. Aaron Chavez MD Other Provider Dr. Sherry Lugo MD Other Provider Arnulfo SCHWAB, Dr. Honag Other Provider Maribell SCHWAB, Dr. Hemanth Domingo Other Provider Alex SCHWAB, Dr. Moss Other Provider [phone] Yobany SCHWAB, Dr. Torres Other Provider Gurmeet [...] Salas Consulting Unavailable Maurilio Rivera Consulting Unavailable Perdo Hong Consulting Unavailable Law Eduardo Consulting Unavailable Nehemiah Horton Consulting Unavailable Pratima Arrieta Consulting Unavailable Chevy Gann Consulting Unavailable Abigail Guerrero Consulting UnavailEllis Barcenas Consulting Unavailable Nghia Hdez Consulting Unavailable Jarred Garg NP Consulting Unavailable Danielle Palm Consulting Unavail able Omer Naranjo Consulting Unavailable Shaun Del Angel Consulting Unavailable Trav, Luis Chi [...] sources) Naproxen; Translations: [NAPROXEN] [facility] Work Phone: (2 sources) Seasonal allergy; Translations: [SEASONAL ALLERGIES] Propensity to adverse reactions 0 [facility] (3 sources) Codeine Drug Allergy 5 Unknown [facility] (1 source) Codeine Drug Allergy 5 [facility] Repository (1 source) Naproxen Drug Allergy 5 [facility] Repository Medications Current Medications Medication Drug [...] Absolute Lymph 3.01 X10 3/uL Normal 0.83-4.51 [facility] Comment on above: Performed By: #### L 503.0106 #### [facility] [address] [place], [address] Absolute Neut 7.9 X10 3/uL High 2.0-7.7 [facility] Comment on above: Performed By: #### L 503.0106 #### [facility] [address] [facility] [place], [address] Basophils/100 WBC (Bld) 0.4 % Normal 0-[address] [facility] Comment on above: Performed By: #### L 503.0106 #### [facility] [address] [facility] [place], [address] Eosinophils/100 WBC (Bld) 0.6 % Normal 0-5 [facility] Comment on above: Performed By: #### L 503.0106 #### [facility] [address] [facility] [place], [address] Erythrocyte distribution width (RBC) [Ratio] 12.8 % Normal 11.6-14.6 [facility] Comment on above: Performed By: #### L 503.0106 #### [facility] [address] [place], [address] Hematocrit (Bld) [Volume fraction] 54.0 % High 37-47 [facility] Comment on above: Performed By: #### L 503.0106 #### [facility] [address] [place], [address] Hemoglobin (Bld) [Mass/Vol] 17.7 g/dL High 12.0-15.0 [facility] Comment on above: Performed By: #### L 503.0106 #### [facility] [address] [place], [address] IG% 0.200 Normal 0.0-0.9 [facility] Comment on above: Result Comment: IG% - Immature Granulocytes (promyelocytes, myelocytes and metamyelocytes) > 1% indicates that a LEFT SHIFT is Present. Performed By: #### L 503.0106 #### [facility] [address] [facility] [place], [address] Lymphocytes/100 WBC (Bld) 24.9 % Normal 19-41 [facility] Comment on above: Performed By: #### L 503.0106 #### [facility] [address] [place], [address] MCH (RBC) [Entitic mass] 29.8 pg Normal 27.0-32.0 [facility] Comment on above: Performed By: #### L 503.0106 #### [facility] [address] [place], [address] MCHC (RBC) [Mass/Vol] 32.8 g/dL Normal 32-36 [facility] Comment on above: Performed By: #### L 503.0106 #### [facility] [address] [place], [address] MCV (RBC) [Entitic vol] 91.1 fL Normal 81-[address] [facility] Comment on above: Performed By: #### L 503.0106 #### [facility] [address] [place], [address] Monocytes/100 WBC (Bld) 8.2 % Normal 0-10 [facility] Comment on above: Performed By: #### L 503.0106 #### [facility] [address] [place], [address] Neutrophils/100 WBC (Bld) 65.7 % Normal 47-70 [facility] Comment on above: Performed By: #### L 503.0106 #### [facility] [address] [place], [address] Nucleated RBC (Bld) [#/Vol] 0 10*3/uL Normal 0-5 [facility] Comment on above: Performed By: #### L 503.0106 #### [facility] [address] [place], [address] Platelet mean volume (Bld) [Entitic vol] 10.2 fL Normal 6.2-12.0 [facility] Comment on above: Performed By: #### L 503.0106 #### [facility] [address] [place], [address] Platelets (Bld) [#/Vol] 377 10*3/uL Normal 150-450 [facility] Comment on above: Performed By: #### L 503.0106 #### [facility] [address] [place], [address] RBC (Bld) [#/Vol] 5.93 10*6/uL High 4.2-5.4 [facility] Comment on above: Performed By: #### L 503.0106 #### [facility] [address] [place], [address] RDW SD 43.2 fl Normal 35.1-43.9 [facility] Comment on above: Performed By: #### L 503.0106 #### [facility] [address] [place], [address] WBC (Bld) [#/Vol] 12.1 10*3/uL High 4.4-11.0 [facility] Comment on above: Performed By: #### L 503.0106 #### [facility] [address] [place], [address] JAK2 Mutation Analysison JAK2 COMMENT Comment Normal . [facility] Comment on above: Result Comment: Tech nical Component performed at [facility] RT Professional Component performed by: Lisbet Price, PhD, [facility] Director, [facility] [id number], [address] [address] This test was developed and its performance characteristics determined by [facility]. It has not been cleared or approved by the Food and Drug Administration. Performed at: [facility] [address] [place], [place] [id number] Marketing Research Analyst: Neil Campos [facility], Phone: [phone] Performed at: - [facility] [address] [place], [place] [id number] Marketing Research Analyst: Neil Campos [facility], Phone: [phone] Performed By: #### L 503.0106 #### [facility] [address] [place], [address] JAK2 COMMENT 2 Comment Normal . [facility] Comment on above: Result Comment: JAK2 is a cytoplasmic tyrosine kinase with a connell role in signal transduction from multiple hematopoietic growth factor receptors. 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 The [employer] Absolute Quantitation software will compare the patient specimen valuse to the standard curves and generate percent values for wild type and mutant type. In vitro studies have indicated that this assay has an analytical sensitivity of 1%. References: Solo EJ, Roger BAIG, Macho PJ, et al. Acquired mutation of the tyrosine kinase JAK2 in human myeloproliferative disorders. Lancet. 2005 Jun 19; 365(9489):6054-5314. Tong Bolden, Geraldo V, Adelina Curry JP. A unique clonal JAK2 mutation leading to constitutive signaling causes polycythaemia vera. Nature. 2005 Jul 29; 434(5022):6477-5608. Maryann R, Aly F, Joseph , et al. A gain-of- function mutation of JAK2 in myeloproliferative disorders. N Engl J Med. 2005 Jul 29; 35217):2420-7580. Performed By: #### L 503.0106 #### [facility] [address] [facility]. [place], [place], [address] JAK2 MUT QUAL Comment Normal . [facility] Comment on above: Result Comment: Resu [...] disorders. Performed By: #### L 503.0106 #### [facility] [address] [place], [address] L501.4021on 11-04-2024 Trop T High Sen 26 ng/L High <=14 [facility] Comment on above: Order Comment: CIARA Perez PREVIOUS SPECIMEN REJECTED DUE TOHEMOLYSIS. 11/04/24 Comfort Boss Garcia. Performed By: #### L 501.4020 #### [facility] [address] [place], [address] Basic Metabolic Profile (BMP )on 11-03-2024 BUN/CRE 31.0 RATIO High 10-20 [facility] Comment on above: Performed By: #### L 500.2500 #### [facility] [address] [place], [address] Calcium [Mass/Vol] 10.2 mg/dL Normal 7.6-11.0 [facility] Comment on above: Performed By: #### L 500.2500 #### [facility] [address] [place], [address] Chloride [Moles/Vol] 99 mmol/L Normal 98-108 [facility] Comment on above: Performed By: #### L 500.2500 #### [facility] [address] [place], [address] CO2 [Moles/Vol] 19.6 mmol/L Low 21.0-32.0 [facility] Comment on above: Performed By: #### L 500.2500 #### [facility] [address] [place], [address] Creatinine [Mass/Vol] 0.69 mg/dL Low 0.70-1.20 [facility] Comment on above: Performed By: #### L 500.2500 #### [facility] [address] [place], [address] ECRCL 105.73 ml/min Normal 50-250 [facility] Comment on above: Performed By: #### L 500.2500 #### [facility] [address] [place], [address] GAP 19 High 5-15 [facility] Comment on above: Performed By: #### L 500.2500 #### [facility] [address] [place], [address] GFR/1.73 sq M.predicted among non-blacks MDRD (S/P/Bld) [Vol rate/Area] 112 mL/min/{1.73_m2} Normal >60 [facility] Comment on above: Result Comment: mL/m in/1.73m2 CKD-EPI Creatinine Equation (2020) Performed By: #### L 500.2500 #### [facility] [address] [place], [address] Glucose [Mass/Vol] 122 mg/dL High 70-99 [facility] Comment on above: Performed By: #### L 500.2500 #### [facility] [address] [place], [address] Potassium [Moles/Vol] 4.0 mmol/L Normal 3.3-5.1 [facility] Comment on above: Result Comment: Hemo lysis present, Results??could be affected. ?? Performed By: #### L 500.2500 #### [facility] [address] [place], [address] Sodium [Moles/Vol] 138 mmol/L Normal 133-145 [facility] Comment on above: Performed By: #### L 500.2500 #### [facility] [address] [place], [address] Urea nitrogen [Mass/Vol] 21 mg/dL High 4-19 [facility] Comment on above: Performed By: #### L 500.2500 #### [facility] [address] [place], [address] CBC W/Diff, Automatedon 08-0 -2024 Hematocrit (Bld) [Volume fraction] 58.5 % High 37-47 [facility] Comment on above: Order Comment: CRITI MONICA VALUE CALLED TO PATRICK HOOVERTLER11/03/24 0720 Елена Joshua.RESULTS READ BACK BY SAME. Performed By: #### L 501.4020 #### [facility] [address] [place], [address] Absolute Lymph 2.41 X10 3/uL Normal 0.83-4.51 [facility] Comment on above: Order Comment: CRITI MONICA VALUE CALLED TO PATRICK HOOVERTLER11/03/24 0720 Елена Lewis.RESULTS READ BACK BY SAME. Performed By: #### L 501.4020 #### [facility] [address] [place], [address] Absolute Neut 13.7 X10 3/uL High 2.0-7.7 [facility] Comment on above: Order Comment: CRITI MONICA VALUE CALLED TO PATRICK HOOVERTLER11/03/24 0720 Елена Joshua.RESULTS READ BACK BY SAME. Performed By: #### L 501.4020 #### [facility] [address] [place], [address] Basophils/100 WBC (Bld) 0.5 % Normal 0-[address] [facility] Comment on above: Order Comment: CRITI MONICA VALUE CALLED TO PATRICK HYQWHWM82/03/25 0720 Елена Joshua.RESULTS READ BACK BY SAME. Performed By: #### L 501.4020 #### [facility] [address] [place], [address] Eosinophils/100 WBC (Bld) 0.3 % Normal 0-5 [facility] Comment on above: Order Comment: CRITI MONICA VALUE CALLED TO PATRICK [id number] 0720 Елена Joshua.RESULTS READ BACK BY SAME. Performed By: #### L 501.4020 #### [facility] [address] [place], [address] Erythrocyte distribution width (RBC) [Ratio] 12.9 % Normal 11.6-14.6 [facility] Comment on above: Order Comment: CRITI MONICA VALUE CALLED TO PATRICK MORENO11/03/24 0720 Елена Lewis.RESULTS READ BACK BY SAME. Performed By: #### L 501.4020 #### [facility] [address] [place], [address] Hemoglobin (Bld) [Mass/Vol] 19.2 g/dL Invalid Interpretation Code 12.0-15.0 [facility] Comment on above: Order Comment: CRITI MONICA VALUE CALLED TO PATRICK MORENO11/03/24719 Елена Lewis.RESULTS READ BACK BY SAME. Performed By: #### L 501.4020 #### [facility] [address] [place], [address] ( IG% 0.500 Normal 0.0-0.9 [facility] Comment on above: Order Comment: CRITI MONICA VALUE CALLED TO PATRICK MORENO11/03/24719 Елена Lewis.RESULTS READ BACK BY SAME. Result Comment: IG% - Immature Granulocytes (promyelocytes, myelocytes and metamyelocytes) > 1% indicates that a LEFT SHIFT is Present. Performed By: #### L 501.4020 #### [facility] [address] [place], [address] Lymphocytes/100 WBC (Bld) 13.7 % Low 19-41 [facility] Comment on above: Order Comment: CRITI MONICA VALUE CALLED TO PATRICK HOOVERTLER11/03/2420 Елена Lewis.RESULTS READ BACK BY SAME. Performed By: #### L 501.4020 #### [facility] [address] [place], [address] MCH (RBC) [Entitic mass] 29.9 pg Normal 27.0-32.0 [facility] Comment on above: Order Comment: CRITI MONICA VALUE CALLED TO PATRICK MORENO11/03/24719 Елена Joshua.RESULTS READ BACK BY SAME. Performed By: #### L 501.4020 #### [facility] [address] [place], [address] MCHC (RBC) [Mass/Vol] 32.8 g/dL Normal 32-36 [facility] Comment on above: Order Comment: CRITI MONICA VALUE CALLED TO PATRICK VITOIUA54/03/25719 Елена Lewis.RESULTS READ BACK BY SAME. Performed By: #### L 501.4020 #### [facility] [address] [place], [address] MCV (RBC) [Entitic vol] 91.1 fL Normal 81-99 [facility] Comment on above: Order Comment: CRITI MONICA VALUE CALLED TO PATRICK [id number] Елена Lewis.RESULTS READ BACK BY SAME. Performed By: #### L 501.4020 #### [facility] [address] [place], [address] Monocytes/100 WBC (Bld) 7.3 % Normal 0-10 [facility] Comment on above: Order Comment: CRITI MONICA VALUE CALLED TO PATRICK HOOVERTLER08719 Елена Lewis.RESULTS READ BACK BY SAME. Performed By: #### L 501.4020 #### [facility] [address] [place], [address] Neutrophils/100 WBC (Bld) 77.7 % High 47-70 [facility] Comment on above: Order Comment: CRITI MONICA VALUE CALLED TO PATRICK HOOVERTLER11/03/2420 Елена Lewis.RESULTS READ BACK BY SAME. Performed By: #### L 501.4020 #### [facility] [address] [place], [address] Nucleated RBC (Bld) [#/Vol] 0 10*3/uL Normal 0-5 [facility] Comment on above: Order Comment: CRITI MONICA VALUE CALLED TO PATRICK MORENO11/03/2420 Елена Lewis.RESULTS READ BACK BY SAME. Performed By: #### L 501.4020 #### [facility] [address] [place], [address] Platelet mean volume (Bld) [Entitic vol] 10.3 fL Normal 6.2-12.0 [facility] Comment on above: Order Comment: CRITI MONICA VALUE CALLED TO PATRICK MORENO11/03/2420 Елена Joshua.RESULTS READ BACK BY SAME. Performed By: #### L 501.4020 #### [facility] [address] [place], [address] Platelets (Bld) [#/Vol] 371 10*3/uL Normal 150-450 [facility] Comment on above: Order Comment: CRITI MONICA VALUE CALLED TO PATRICK MORENO11/03/2420 Елена Lewis.RESULTS READ BACK BY SAME. Performed By: #### L 501.4020 #### [facility] [address] [place], [address] RBC (Bld) [#/Vol] 6.42 10*6/uL High 4.2-5.4 [facility] Comment on above: Order Comment: CRITI MONICA VALUE CALLED TO PATRICK MORENO11/03/2420 Елена Lewis.RESULTS READ BACK BY SAME. Performed By: #### L 501.4020 #### [facility] [address] [place], [address] RDW SD 43.6 fl Normal 35.1-43.9 [facility] Comment on above: Order Comment: CRITI MONICA VALUE CALLED TO PATRICK MORENO11/03/2420 Елена Joshua.RESULTS READ BACK BY SAME. Performed By: #### L 501.4020 #### [facility] [address] [place], [address] WBC (Bld) [#/Vol] 17.6 10*3/uL High 4.4-11.0 [facility] Comment on above: Order Comment: CRITI MONICA VALUE CALLED TO PATRICK MORENO11/03/24 0720 Елена Lewis.RESULTS READ BACK BY SAME. Performed By: #### L 501.4020 #### [facility] [address] [place], [address] Urinalysis, Completeon 11-03 CAST,HYALINE 0-5 SEEN Normal 0-5 [facility] Comment on above: Order Comment: CHANDLER TER SPECIMEN Performed By: #### L 501.4020 #### [facility] [address] [place], [address] BACTERIA 0 SEEN Normal None Seen [facility] Comment on above: Order Comment: CHANDLER TER SPECIMEN Performed By: #### L 501.4020 #### [facility] [address] [place], [address] EPI,SQUAMOUS 0 SEEN Normal 5-10 [facility] Comment on above: Order Comment: CHANDLER TER SPECIMEN Performed By: #### L 501.4020 #### [facility] [address] [place], [address] Mucus Ql (Urine sed) 0 SEEN Normal [facility] Comment on above: Order Comment: CHANDLER TER SPECIMEN Performed By: #### L 501.4020 #### [facility] [address] [place], [address] RBC 0 SEEN Normal 0-5 [facility] Comment on above: Order Comment: CHANDLER TER SPECIMEN Performed By: #### L 501.4020 #### [facility] [address] [place], [address] WBC 0 SEEN Normal 0-5 [facility] Comment on above: Order Comment: CHANDLER TER SPECIMEN Performed By: #### L 501.4020 #### [facility] [address] [place], [address] CBC W/Diff, Automatedon 08-0 2-2025 Absolute Lymph 2.15 X10 3/uL Normal 0.83-4.51 [facility] Comment on above: Performed By: #### L 501.4020 #### [facility] [address] [place], [address] Absolute Neut 12.0 X10 3/uL High 2.0-7.7 [facility] Comment on above: Performed By: #### L 501.4020 #### [facility] [address] [place], [address] Basophils/100 WBC (Bld) 0.4 % Normal 0-[address] [facility] Comment on above: Performed By: #### L 501.4020 #### [facility] [address] [place], [address] Eosinophils/100 WBC (Bld) 0.3 % Normal 0-5 [facility] Comment on above: Performed By: #### L 501.4020 #### [facility] [address] [place], [address] Erythrocyte distribution width (RBC) [Ratio] 12.3 % Normal 11.6-14.6 [facility] Comment on above: Performed By: #### L 501.4020 #### [facility] [address] [place], [address] Hematocrit (Bld) [Volume fraction] 53.0 % High 37-47 [facility] Comment on above: Performed By: #### L 501.4020 #### [facility] [address] [place], [address] Hemoglobin (Bld) [Mass/Vol] 17.9 g/dL High 12.0-15.0 [facility] Comment on above: Performed By: #### L 501.4020 #### [facility] [address] [place], [address] IG% 0.300 Normal 0.0-0.9 [facility] Comment on above: Result Comment: IG% - Immature Granulocytes (promyelocytes, myelocytes and metamyelocytes) > 1% indicates that a LEFT SHIFT is Present. Performed By: #### L 501.4020 #### [facility] [address] [place], [address] Lymphocytes/100 WBC (Bld) 14.2 % Low 19-41 [facility] Comment on above: Performed By: #### L 501.4020 #### [facility] [address] [place], [address] MCH (RBC) [Entitic mass] 30.2 pg Normal 27.0-32.0 [facility] Comment on above: Performed By: #### L 501.4020 #### [facility] [address] [place], [address] MCHC (RBC) [Mass/Vol] 33.8 g/dL Normal 32-36 [facility] Comment on above: Performed By: #### L 501.4020 #### [facility] [address] [place], [address] MCV (RBC) [Entitic vol] 89.5 fL Normal 81-[address] [facility] Comment on above: Performed By: #### L 501.4020 #### [facility] [address] [place], [address] Monocytes/100 WBC (Bld) 5.7 % Normal 0-[address] [facility] Comment on above: Performed By: #### L 501.4020 #### [facility] [address] [place], [address] Neutrophils/100 WBC (Bld) 79.1 % High 47-70 [facility] Comment on above: Performed By: #### L 501.4020 #### [facility] [address] [place], [address] Nucleated RBC (Bld) [#/Vol] 0 10*3/uL Normal 0-5 [facility] Comment on above: Performed By: #### L 501.4020 #### [facility] [address] [place], [address] Platelet mean volume (Bld) [Entitic vol] 10.2 fL Normal 6.2-12.0 [facility] Comment on above: Performed By: #### L 501.4020 #### [facility] [address] [place], [address] Platelets (Bld) [#/Vol] 345 10*3/uL Normal 150-450 [facility] Comment on above: Performed By: #### L 501.4020 #### [facility] [address], [address] RBC (Bld) [#/Vol] 5.92 10*6/uL High 4.2-5.4 [facility] Comment on above: Performed By: #### L 501.4020 #### [facility] [address] [place], [address] RDW SD 40.8 fl Normal 35.1-43.9 [facility] Comment on above: Performed By: #### L 501.4020 #### [facility] [address] [place], [address] WBC (Bld) [#/Vol] 15.1 10*3/uL High 4.4-11.0 [facility] Comment on above: Performed By: #### L 501.4020 #### [facility] [address] [place], [address] Comprehensive Metabolic Prof ilon 11-02-2024 Albumin [Mass/Vol] 4.6 g/dL Normal 3.5-5.0 [facility] Comment on above: Performed By: #### L 501.4020 #### [facility] [address] [place], [address] Albumin/Globulin [Mass ratio] 1.4 {ratio} Normal 0.9-2.4 [facility] Comment on above: Performed By: #### L 501.4020 #### [facility] [address] [place], [address] ALK PHOS 103 U/L Normal 35-104 [facility] Comment on above: Performed By: #### L 501.4020 #### [facility] [address] [place], [address] ALT [Catalytic activity/Vol] 15 U/L Normal <=34 [facility] Comment on above: Performed By: #### L 501.4020 #### [facility] [address] [place], [address] AST [Catalytic activity/Vol] 19 U/L Normal <=31 [facility] Comment on above: Performed By: #### L 501.4020 #### [facility] [address] [place], [address] Bilirubin [Mass/Vol] 0.68 mg/dL Normal 0.00-1.30 [facility] Comment on above: Performed By: #### L 501.4020 #### [facility] [address] [place], [address] BUN/CRE 19.1 RATIO Normal 10-20 [facility] Comment on above: Performed By: #### L 501.4020 #### [facility] [address] [place], [address] Calcium [Mass/Vol] 9.8 mg/dL Normal 7.6-11.0 [facility] Comment on above: Performed By: #### L 501.4020 #### [facility] [address] [place], [address] Chloride [Moles/Vol] 104 mmol/L Normal 98-108 [facility] Comment on above: Performed By: #### L 501.4020 #### [facility] [address] [place], [address] CO2 [Moles/Vol] 20.0 mmol/L Low 21.0-32.0 [facility] Comment on above: Performed By: #### L 501.4020 #### [facility] [address] [place], [address] Creatinine [Mass/Vol] 0.56 mg/dL Low 0.70-1.20 [facility] Comment on above: Performed By: #### L 501.4020 #### [facility] [address] [place], [address] ECRCL 130.27 ml/min Normal 50-250 [facility] Comment on above: Performed By: #### L 501.4020 #### [facility] [address] [place], [address] GAP 14 Normal 5-15 [facility] Comment on above: Performed By: #### L 501.4020 #### [facility] [address] [place], [address] GFR/1.73 sq M.predicted among non-blacks MDRD (S/P/Bld) [Vol rate/Area] 118 mL/min/{1.73_m2} Normal >60 [facility] Comment on above: Result Comment: mL/m in/1.73m2 CKD-EPI Creatinine Equation (2020) Performed By: #### L 501.4020 #### [facility] [address] [place], [address] Globulin (S) [Mass/Vol] 3.2 g/dL Normal 2.2-4.2 [facility] Comment on above: Performed By: #### L 501.4020 #### [facility] [address] [place], [address] Glucose [Mass/Vol] 152 mg/dL High 70-99 [facility] Comment on above: Performed By: #### L 501.4020 #### [facility] [address] [place], [address] Potassium [Moles/Vol] 3.7 mmol/L Normal 3.3-5.1 [facility] Comment on above: Performed By: #### L 501.4020 #### [facility] [address] [place], [address] Sodium [Moles/Vol] 138 mmol/L Normal 133-145 [facility] Comment on above: Performed By: #### L 501.4020 #### [facility] [address] [place], [address] T PROT 7.7 g/dL Normal 5.9-8.4 [facility] Comment on above: Performed By: #### L 501.4020 #### [facility] [address] [place], [address] Urea nitrogen [Mass/Vol] 11 mg/dL Normal 4-19 [facility] Comment on above: Performed By: #### L 501.4020 #### [facility] [address] [place], [address] Magnesiumon 11-02-2024 Magnesium [Mass/Vol] 2.4 mg/dL High 1.5-2.2 [facility] Comment on above: Performed By: #### L 501.4020 #### [facility] [address] [place], [address] Phosphoruson 11-02-2024 Phosphate [Mass/Vol] 3.6 mg/dL Normal 2.7-4.5 [facility] Comment on above: Performed By: #### L 501.4020 #### [facility] [address] [place], [address] Absolute lymphocyte countOrd ered By: Sen Clarke on 11-01-2024 Lymphocytes Auto (Unsp spec) [#/Vol] 2.74 10*3/uL 0.83-4.51 [facility] Absolute neutrophil countOrd ered By: Sen Clarke on 11-01-2024 Neutrophils (Bld) [#/Vol] 8.9 10*3/uL High 2.0-7.7 [facility] Automated lymphocyte count a s percentage of total leukocytesOrdered By: Sen Clarke on 11-01-2024 Lymphocytes/100 WBC Auto (Unsp spec) 21.5 % 19-41 [facility] Basic Metabolic Profile (BMP )on 11-01-2024 BUN/CRE 13.4 RATIO Normal 10-20 [facility] Comment on above: Order Comment: REDRA W. PREVIOUS SPECIMEN REJECTED DUE TOHEMOLYSIS. 11/01/2439 Tong Mccormick. Performed By: #### L 503.0106 #### [facility] [address] [place], [address] Calcium [Mass/Vol] 9.2 mg/dL Normal 7.6-11.0 [facility] Comment on above: Order Comment: REDRA W. PREVIOUS SPECIMEN REJECTED DUE TOHEMOLYSIS. 11/01/2439 Tong Mccormick. Performed By: #### L 503.0106 #### [facility] [address] [place], [address] Chloride [Moles/Vol] 106 mmol/L Normal 98-108 [facility] Comment on above: Order Comment: REDRA W. PREVIOUS SPECIMEN REJECTED DUE TOHEMOLYSIS. 11/01/2439 Tong Mccormick. Performed By: #### L 503.0106 #### [facility] [address] [place], [address] CO2 [Moles/Vol] 20.1 mmol/L Low 21.0-32.0 [facility] Comment on above: Order Comment: REDRA W. PREVIOUS SPECIMEN REJECTED DUE TOHEMOLYSIS. 11/01/24738 Tong Castañeda Jace. Performed By: #### L 503.0106 #### [facility] [address] [place], [address] Creatinine [Mass/Vol] 0.59 mg/dL Low 0.70-1.20 [facility] Comment on above: Order Comment: REDRA W. PREVIOUS SPECIMEN REJECTED DUE TOHEMOLYSIS. 11/01/24738 Tong Mccormick. Performed By: #### L 503.0106 #### [facility] [address] [place], [address] ECRCL 127.93 ml/min Normal 50-250 [facility] Comment on above: Order Comment: REDRA W. PREVIOUS SPECIMEN REJECTED DUE TOHEMOLYSIS. 11/01/24738 Tong Garry Jace. Performed By: #### L 503.0106 #### [facility] [address] [place], [address] GAP 14 Normal 5-15 [facility] Comment on above: Order Comment: REDRA W. PREVIOUS SPECIMEN REJECTED DUE TOHEMOLYSIS. 11/01/24738 Tong Mccormick. Performed By: #### L 503.0106 #### [facility] [address] [place], [address] GFR/1.73 sq M.predicted among non-blacks MDRD (S/P/Bld) [Vol rate/Area] 116 mL/min/{1.73_m2} Normal >60 [facility] Comment on above: Order Comment: REDRA W. PREVIOUS SPECIMEN REJECTED DUE TOHEMOLYSIS. 11/01/24738 Tong Castañeda Jace. Result Comment: mL/m in/1.73m2 CKD-EPI Creatinine Equation (2020) Performed By: #### L 503.0106 #### [facility] [address] [place], [address] Glucose [Mass/Vol] 140 mg/dL High 70-99 [facility] Comment on above: Order Comment: REDRA W. PREVIOUS SPECIMEN REJECTED DUE TOHEMOLYSIS. 11/01/24738 Tong Mccormick. Performed By: #### L 503.0106 #### [facility] [address] [place], [address] Potassium [Moles/Vol] 3.6 mmol/L Normal 3.3-5.1 [facility] Comment on above: Order Comment: REDRA W. PREVIOUS SPECIMEN REJECTED DUE TOHEMOLYSIS. 11/01/24738 Tong Mccormick. Performed By: #### L 503.0106 #### [facility] [address] [place], [address] Sodium [Moles/Vol] 140 mmol/L Normal 133-145 [facility] Comment on above: Order Comment: REDRA W. PREVIOUS SPECIMEN REJECTED DUE TOHEMOLYSIS. 11/01/24738 Tong Mccormick. Performed By: #### L 503.0106 #### [facility] [address] [place], [address] Urea nitrogen [Mass/Vol] 8 mg/dL Normal 4-19 [facility] Comment on above: Order Comment: REDRA W. PREVIOUS SPECIMEN REJECTED DUE TOHEMOLYSIS. 11/01/2439 Tong Mccormick. Performed By: #### L 503.0106 #### [facility] [address] [place], [address] BUN Normal -19 [facility] Comment on above: Result Comment: This specimen has been REJECTED due to Laboratory criteria: Hemolyzed. NESS BURNETT has been notified of need of recollection. 11/01/2437 Tong Mccormick Performed By: #### L 100.0100, L500.2500 #### [facility] [address] [place], [address] BUN/CRE Normal 10-20 [facility] Comment on above: Result Comment: This specimen has been REJECTED due to Laboratory criteria: Hemolyzed. NESS BURNETT has been notified of need of recollection. 11/01/24736 Tong L White Performed By: #### L 100.0100, L500.2500 #### [facility] [address] [place], [address] Calcium Normal 7.6-11.0 [facility] Comment on above: Result Comment: This specimen has been REJECTED due to Laboratory criteria: Hemolyzed. NESS BURNETT has been notified of need of recollection. 11/01/24736 Tong L White Performed By: #### L 100.0100, L500.2500 #### [facility] [address] [place], [address] CL Normal 98-108 [facility] Comment on above: Result Comment: This specimen has been REJECTED due to Laboratory criteria: Hemolyzed. NESS BURNETT has been notified of need of recollection. 11/01/24736 Tong L White Performed By: #### L 100.0100, L500.2500 #### [facility] [address] [place], [address] CO2 Normal 21.0-32.0 [facility] Comment on above: Result Comment: This specimen has been REJECTED due to Laboratory criteria: Hemolyzed. NESS BURNETT has been notified of need of recollection. 11/01/24736 Tong L White Performed By: #### L 100.0100, L500.2500 #### [facility] [address] [place], [address] CREAT,SERUM Normal 0.70-1.20 [facility] Comment on above: Result Comment: This specimen has been REJECTED due to Laboratory criteria: Hemolyzed. NESS BURNETT has been notified of need of recollection. 11/01/24736 Tong L White Performed By: #### L 100.0100, L500.2500 #### [facility] [address] [place], [address] eGFR Normal >60 [facility] Comment on above: Result Comment: This specimen has been REJECTED due to Laboratory criteria: Hemolyzed. NESS BURNETT has been notified of need of recollection. 11/01/24736 Tong L White Performed By: #### L 100.0100, L500.2500 #### [facility] [address] [place], [address] GAP Normal 5-15 [facility] Comment on above: Result Comment: This specimen has been REJECTED due to Laboratory criteria: Hemolyzed. NESS BURNETT has been notified of need of recollection. 11/01/24736 Tong L White Performed By: #### L 100.0100, L500.2500 #### [facility] [address] [place], [address] GLU Normal 70-99 [facility] Comment on above: Result Comment: This specimen has been REJECTED due to Laboratory criteria: Hemolyzed. NESS BURNETT has been notified of need of recollection. 11/01/24736 Tong L White Performed By: #### L 100.0100, L500.2500 #### [facility] [address] [place], [address] Potassium Normal 3.3-5.1 [facility] Comment on above: Result Comment: This specimen has been REJECTED due to Laboratory criteria: Hemolyzed. NESS BURNETT has been notified of need of recollection. 11/01/24736 Tong L White Performed By: #### L 100.0100, L500.2500 #### [facility] [address] [place], [address] Basic Metabolic Profile (BMP) Normal 133-145 [facility] Comment on above: Result Comment: This specimen has been REJECTED due to Laboratory criteria: Hemolyzed. NESS BURNETT has been notified of need of recollection. 11/01/24736 Tong L White Performed By: #### L 100.0100, L500.2500 #### [facility] [address] [place], [address] Basophil percentageOrdered B y: Sen Clarke on 11-01-2024 Basophils/100 WBC (Bld) 0.3 % 0-[address] [facility] CBC W/Diff, Automatedon Absolute Lymph 2.74 X10 3/uL Normal 0.83-4.51 [facility] Comment on above: Performed By: #### L 100.0100, L500.2500 #### [facility] [address] [place], [address] Absolute Neut 8.9 X10 3/uL High 2.0-7.7 [facility] Comment on above: Performed By: #### L 100.0100, L500.2500 #### [facility] [address] [place], [address] Basophils/100 WBC (Bld) 0.3 % Normal 0-[address] [facility] Comment on above: Performed By: #### L 100.0100, L500.2500 #### [facility] [address] [place], [address] Eosinophils/100 WBC (Bld) 0.8 % Normal 0-5 [facility] Comment on above: Performed By: #### L 100.0100, L500.2500 #### [facility] [address] [place], [address] Erythrocyte distribution width (RBC) [Ratio] 12.0 % Normal 11.6-14.6 [facility] Comment on above: Performed By: #### L 100.0100, L500.2500 #### [facility] [address] [place], [address] Hematocrit (Bld) [Volume fraction] 47.1 % High 37-47 [facility] Comment on above: Performed By: #### L 100.0100, L500.2500 #### [facility] [address] [place], [address] Hemoglobin (Bld) [Mass/Vol] 16.2 g/dL High 12.0-15.0 [facility] Comment on above: Performed By: #### L 100.0100, L500.2500 #### [facility] [address] [place], [address] IG% 0.400 Normal 0.0-0.9 [facility] Comment on above: Result Comment: IG% - Immature Granulocytes (promyelocytes, myelocytes and metamyelocytes) > 1% indicates that a LEFT SHIFT is Present. Performed By: #### L 100.0100, L500.2500 #### [facility] [address] [place], [address] Lymphocytes/100 WBC (Bld) 21.5 % Normal 19-41 [facility] Comment on above: Performed By: #### L 100.0100, L500.2500 #### [facility] [address] [place], [address] MCH (RBC) [Entitic mass] 30.5 pg Normal 27.0-32.0 [facility] Comment on above: Performed By: #### L 100.0100, L500.2500 #### [facility] [address] [place], [address] MCHC (RBC) [Mass/Vol] 34.4 g/dL Normal 32-36 [facility] Comment on above: Performed By: #### L 100.0100, L500.2500 #### [facility] [address] [place], [address] MCV (RBC) [Entitic vol] 88.7 fL Normal 81-99 [facility] Comment on above: Performed By: #### L 100.0100, L500.2500 #### [facility] [address] [place], [address] Monocytes/100 WBC (Bld) 7.5 % Normal 0-[address] [facility] Comment on above: Performed By: #### L 100.0100, L500.2500 #### [facility] [address] [place], [address] Neutrophils/100 WBC (Bld) 69.5 % Normal 47-70 [facility] Comment on above: Performed By: #### L 100.0100, L500.2500 #### [facility] [address] [place], [address] Nucleated RBC (Bld) [#/Vol] 0 10*3/uL Normal 0-5 [facility] Comment on above: Performed By: #### L 100.0100, L500.2500 #### [facility] [address] [place], [address] Platelet mean volume (Bld) [Entitic vol] 10.4 fL Normal 6.2-12.0 [facility] Comment on above: Performed By: #### L 100.0100, L500.2500 #### [facility] [address] [place], [address] Platelets (Bld) [#/Vol] 290 10*3/uL Normal 150-450 [facility] Comment on above: Performed By: #### L 100.0100, L500.2500 #### [facility] [address] [place], [address] RBC (Bld) [#/Vol] 5.31 10*6/uL Normal 4.2-5.4 [facility] Comment on above: Performed By: #### L 100.0100, L500.2500 #### [facility] [address] [place], [address] RDW SD 39.5 fl Normal 35.1-43.9 [facility] Comment on above: Performed By: #### L 100.0100, L500.2500 #### [facility] [address] [place], [address] WBC (Bld) [#/Vol] 12.7 10*3/uL High 4.4-11.0 [facility] Comment on above: Performed By: #### L 100.0100, L500.2500 #### [facility] [address] [place], [address] Discharge Instructionon 08-0 Discharge Instruction [facility] Medical Records Department [address] [place] [address] Instructions for Home/Discharge Instructions 11/01/24 1422 MR#: [id number] Acct: [id number] Name: JAYDA OSHEA Rep #: [id number] : 1985 39 From: Vee Stuart MD PCP: Care Physician,No Primary Status:ADM IN Discharge Instructions DC O2, CPAP, BIPAP needs Home O2 Discharge instructions: No Dressing / Incision Discharge Activity: - (Discharging to [facility]) Follow Up Care Test Results: Test [...] Recorder Preventi (Urgent) Timeframe: 1 Day Facility: [facility] - Location: Cardiovascular Services Ordered By: [...] Vee Stuart MD CC: Lydia Orantes; Sherry Lugo; Ajay Johnson; Renee Cleveland MD; Sheeba Rodriguez MD; David Gale MD; Dr. Ehsan Uriarte MD; Dr. Nehemiah Haney DO; Dr. Kyle Ghosh MD; Dr. Leidy Mckinnon MD; Dr. Tong Rai MD; Dr. Reagan White MD; Dr. Juaquin Campos MD; Dr. Aaron Chavez DO; Dr. Hemanth Reyna MD; Dr. Natalya Arredondo MD (more content not included)... Normal [facility] Eosinophil percentageOrdered By: Sen Clarke on 11-01-2024 Eosinophils/100 WBC (Bld) 0.8 % 0-5 [facility] Erythrocyte distribution wid th ratioOrdered By: Sen Clarke on 11-01-2024 Erythrocyte distribution width (RBC) [Ratio] 12.0 % 11.6-14.6 [facility] Erythrocyte distribution wid th standard deviationOrdered By: Sen Clarke on 11-01-2024 Erythrocyte distribution width (RBC) [Ratio] 39.5 fl 35.1-43.9 [facility] Hematocrit Auto (Bld) [Volum e fraction]Ordered By: Sen Clarke on 11-01-2024 Hematocrit (Bld) [Volume fraction] 47.1 % High 37-47 [facility] Hemoglobin measurementOrdere d By: Sen Clarke on 11-01-2024 Hemoglobin (Bld) [Mass/Vol] 16.2 g/dL High 12.0-15.0 [facility] Immature granulocytes/100 WB C Auto (Bld)Ordered By: Sen Clarke on 11-01-2024 Immature granulocytes/100 WBC (Bld) 0.400 % 0.0-0.9 [facility] Comment on above: IG% - Immature Granu locytes (promyelocytes, myelocytes and metamyelocytes) > 1% indicates that a LEFT SHIFT is Present. MCV (mean corpuscular volume ) determinationOrdered By: Sen Clarke on 11-01-2024 MCV (RBC) [Entitic vol] 88.7 fL 81-[address] [facility] Mean corpuscular hemoglobin (MCH) determinationOrdered By: Sen Clarke on 11-01-2024 MCH (RBC) [Entitic mass] 30.5 pg 27.0-32.0 [facility] Mean corpuscular hemoglobin concentration (MCHC) determinationOrdered By: Sen Clarke on 11-01-2024 MCHC (RBC) [Mass/Vol] 34.4 g/dL 32-36 [facility] Mean platelet volume determi nationOrdered By: Sen Clarke on 11-01-2024 Platelet mean volume (Bld) [Entitic vol] 10.4 fL 6.2-12.0 [facility] Monocyte percentageOrdered B y: Sen Clarke on 11-01-2024 Monocytes/100 WBC (Bld) 7.5 % 0-[address] [facility] Neutrophil percentageOrdered By: Sen Clarke on 11-01-2024 Neutrophils/100 WBC (Bld) 69.5 % 47-70 [facility] Nucleated red blood cell per centageOrdered By: Sen Clarke on 11-01-2024 Nucleated RBC/100 WBC (Bld) [Ratio] 0 % 0-5 [facility] Platelet countOrdered By: Amita Clarke on 11-01-2024 Platelets (Bld) [#/Vol] 290 10*3/uL 150-450 [facility] RBC Auto (Bld) [#/Vol]Ordere d By: Seneli Clarke on 11-01-2024 RBC (Bld) [#/Vol] 5.31 10*6/uL 4.2-5.4 [facility] White blood cell (WBC) count Ordered By: Sen Clarke on 11-01-2024 WBC (Bld) [#/Vol] 12.7 10*3/uL High 4.4-11.0 [facility] Brain without Contraston Brain without Contrast [facility] Imaging Services [address] [place] [address] Brain without Contrast MR#: [id number] Acct: [id number] Name: DAYOJAYDA N Rep #: [id number] : 1985 F 39 From: Richi Andre MD PCP: Care Physician,No Primary Status: ADM IN Study: Brain without Contrast Date of Exam: 10/31/24 Exam# [id number] Ordering Dr: Nehemiah Haney DO EXAM: BRAIN [...] at the time of dictation. [facility]: Dr. Nehemiah Haney, DO; No Primary Care Physician Busser: Signed Normal [facility] Calculated very low density lipoprotein (VLDL) cholesterol measurementOrdered By: Nehemiah Medrano on 10-31-2024 Calculated very low density lipoprotein (VLDL) cholesterol measurement 40 mg/dL 5-40 [facility] Echo Transesophageal (SUNADY)on 10-31-2024 Echo Transesophageal (SUNDAY) [facility] Cardi[facility] Services [address] [place] [address] Echo Transesophageal (SUNDAY) 11/01/24 0948 MR#: [id number] Acct: [id number] Name: JAYDA OSHEA Rep #: [id number] : 1985 39 From: Law Eduardo MD Attending Dr: Dr. Vee Stuart MD Status: DIS IN Ordering Dr: Sen Clarke MD Date: 10/31/24 Location: U Sex: F C Admitted: 10/30/24 Reason For Study Reason For Study: CVA Medication SUNDAY probe 6VT-D (SN [id number]) passed with minimal difficulty. No complications were noted. Cetacaine Topical [place] given X3 orally. Versed 2 mg given [...] Dictated: 11/01/24 0948 Date Transcribed: 11/01/24 1628 Busser: Signed Normal [facility] Echocardiogram study reportO rdered By: Law Eduardo on 10-31-2024 Study report [facility] [address] [place] [address] Echo Complete 10/31/24 1012 MR#: [id number] Acct: [id number] Name: JAYDA OSHEA Rep #:[id number] : 1985 39 From: Law Roque Attending Dr: Dr. Sen Clarke MD Status: ADM IN Ordering Dr: Nehemiah Haney DO Date: 10/30/24 Location: [facility] Sex: F C Admitted: 10/30/24 Reason For [...] Date Dictated: 10/31/24 1012 Date Transcribed: 10/31/241658 Busser: Signed [facility] Work Phone: Electrocardiogram reportOrde red By: Law Eduardo on 10-31-2024 EKG study [facility] Cardiovascular Services [address] [place] [address] 12 Lead EKG 10/30/242056 MR#: [id number] Acct: [id number] Name: JAYDA OSHEA Rep #:[id number] : 1985 39 From: Law Eduardo MD Attending Dr: Dr. Sen Clarke MD Status: ADM IN Ordering Dr: Domenico Silva DO Date: 10/30/24 Location: [facility] Sex: F C Admitted: 10/30/24 Test Reason : STROKE Blood Pressure : */* mmHG Vent. Rate : 73 BPM Atrial Rate : 73 BPM P-R Int : 152 ms QRS Dur : 94 ms QT Int : 428 ms P-R-T Axes : 33 26 51 degrees QTcB Int : 471 ms Normal sinus rhythm Normal ECG Confirmed by JAYCE SCHWAB, LAW ([id number]), communications editor VELIA VILLA ([id number]) on 58:43:28 AM Referred By: Confirmed By: LAW EDUARDO MD 10/31/24 0843 Date _ Law Eduardo MD CC: Dr. Domenico Silva DO; Dr. Sen Clarke MD; No Primary Care Physician ~ Signed [facility] Work Phone: Folates,Serum (Folic Acid)on 10-31-2024 FOLATES,SERUM 7.69 ng/mL Normal 4.60-34.80 [facility] Comment on above: Result Comment: Hemo lysis, Results will be affected, Requires Recollection. Performed By: #### L 500.2500, L100.0100 #### [facility] Laboratory [address] [place], [address] Hemoglobin A1con 10-31-2024 HbA1c (Bld) [Mass fraction] 5.4 % Normal <=5.6 [facility] Comment on above: Result Comment: Norm al < 5.7 % Prediabetic 5.7 - 6.4 % Diabetic >or= 6.5 % Please note range changes. Performed By: #### L 500.2500, L100.0100 #### [facility] Laboratory [address] [place], [address] LDL calc ser/plasOrdered By: Nehemiah Medrano on 10-31-2024 Cholesterol in LDL [Mass/Vol] 108 mg/dL [facility] Comment on above: Jhkdbjcqba=975-993 m g/dL & Higher Nvkb=656 mg/dL or greaterFriedwald Equation for LDL-C Lipid Profileon 10-31-2024 CHOL:HDL 3.43 Normal [facility] Comment on above: Performed By: #### L 500.2500, L100.0100 #### [facility] Laboratory [address] [place], [address] Cholesterol [Mass/Vol] 209 mg/dL High <=200 [facility] Comment on above: Result Comment: Chol esterol level, Desirable <200 mg/dL Borderline high cholesterol 200-239 mg/dL High cholesterol >=240 mg/dL Recommendations of the NCEP Adult Treatment Panel for the following risk-cutoff thresholds for the [place] population. Performed By: #### L 500.2500, L100.0100 #### [facility] Laboratory [address] [place], [address] Cholesterol in HDL [Mass/Vol] 61 mg/dL Normal [facility] Comment on above: Result Comment: [place] onal Cholesterol Education Program (NCEP) guidelines: <40 mg/dL: Low HDL-cholesterol (major risk factor for CHD) >= 60 mg/dL: High HDL-cholesterol (negative risk factor for CHD) HDL-cholesterol is affected by a number of factors, e.g. smoking, exercise, hormones, sex and age. Performed By: #### L 500.2500, L100.0100 #### [facility] Laboratory [address] [place], [address] Cholesterol in LDL [Mass/Vol] 108 mg/dL Normal [facility] Comment on above: Result Comment: Bord mmamfh=391-887 mg/dL Higher Gype=759 mg/dL or greater Friedwald Equation for LDL-C Performed By: #### L 500.2500, L100.0100 #### [facility] Laboratory [address] [place], [address] Cholesterol in VLDL [Mass/Vol] 40 mg/dL Normal 5-40 [facility] Comment on above: Performed By: #### L 500.2500, L100.0100 #### [facility] Laboratory [address] [place], [address] Triglyceride [Mass/Vol] 201 mg/dL High [facility] Comment on above: Result Comment: The drugs N-Acetylcysteine and Metamizole may falsely depress this assay. Normal range: <150 mg/dL Borderline High: 150-199 mg/dL High: 200-499 mg/dL Very High: >500 mg/dL Performed By: #### L 500.2500, L100.0100 #### [facility] Laboratory [address] [place], [address] MR/CON.PCM.NEon 10-31-2024 MR/CON.PCM.NE [facility] Medical Records Department [address] [place] [address] Consultation - Neurology 10/31/24 1253 MR#: [id number] Acct: [id number] Name: JAYDA OSHEA Maritza Rep #: [id number] : 1985 39 From: Tong Rai MD PCP: Care Physician,No Primary Status:ADM IN Location: [place] [address] Assessment and Plan: Stroke Assessment/Plan JAYDA OSHEA [...] given her subtle exam fluctuations. 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 If her [...] episodes of excessive daytime somnolence. [facility] Medical History (Updated 10/31/24 @ 00:55 by [...] 21:30 Temperature (more content not included)... Normal [facility] Magnetic resonance imaging r eportOrdered By: Richi Andre on 10-31-2024 Study report [facility] Imaging Services [address] [place] [address] Brain without Contrast MR#: [id number] Acct: [id number] Name: JAYDA OSHEA Rep #: [id number] : 1985 F 39 From: Yoko Andre MD PCP: Care Physician,No Primary Status: ADM IN Study:Brain without Contrast Date of Exam: 10/31/24 Exam# [id number] Ordering Dr: Nehemiah Lorenz DO EXAM: BRAIN [...] Haney DO; No Primary Care Physician ~ Busser: Signed [facility] Screening total cholesterol/ high density lipoprotein (HDL) cholesterol ratioOrdered By: Nehemiah Medrano on 10-31-2024 Cholesterol.total/Indy sterol in HDL [Mass ratio] 3.43 {ratio} [facility] Serum or plasma cholesterol in HDL measurement (mass/volume)Ordered By: Nehemiah Medrano on 10-31-2024 Cholesterol in HDL [Mass/Vol] 61 mg/dL >40 [facility] Comment on above: National Cholesterol Education Program (NCEP) guidelines:<40 mg/dL: Low HDL-cholesterol (major risk factor for CHD)>= 60 mg/dL: High HDL-cholesterol (negative risk factor for CHD)HDL-cholesterol is affected by a number of factors, e.g. smoking, exercise, hormones, sex and age. Serum or plasma cholesterol measurement (mass/volume)Ordered By: Nehemiah Medrano on 10-31-2024 Cholesterol [Mass/Vol] 209 mg/dL High <201 [facility] Comment on above: Cholesterol level, D esirable <200 mg/dLBorderline high cholesterol 200-239 mg/dLHigh cholesterol >=240 mg/dLRecommendations of the NCEP Adult Treatment Panel for the following risk-cutoff thresholds for the [place] population. Thyroid Stim Hormone (TSH)on 10-31-2024 TSH 3.230 uIU/mL Normal 0.300-4.200 [facility] Comment on above: Performed By: #### L 500.2500, L100.0100 #### [facility] Laboratory [address] [place], [address] Triglycerides measurementOrd ered By: Nehemiah Medrano on 10-31-2024 Triglyceride [Mass/Vol] 201 mg/dL High <[address] [facility] Comment on above: The drugs N-Acetylcy steine and Metamizole may falsely depress this assay. Normal range: <150 mg/dLBorderline High: 150-199 mg/dLHigh: 200-499 mg/dLVery High: >500 mg/dL Troponin T HS 4 HRon 025 Trop T High Sen Normal <=14 [facility] Comment on above: Result Comment: CANC ELLATION ORDER Performed By: #### L 501.4020 #### [facility] Laboratory [address] [place], [place], [address] Urine Drug Screen (VISTA)on 10-31-2024 AMPHETAMINES Positive Normal <1000 ng/mL [facility] Comment on above: Result Comment: If c onfirmation testing is needed, a separate order will be required to send out testing to the reference laboratory. Performed By: #### L 503.0106 #### [facility] Laboratory [address] [place], [address] BARBITIURATES Negative Normal < 200 ng/mL [facility] Comment on above: Performed By: #### L 503.0106 #### [facility] Laboratory [address] [place], [address] BENZODIAZIPINE Negative Normal < 200 ng/mL [facility] Comment on above: Performed By: #### L 503.0106 #### [facility] Laboratory [address] [place], [address] BUP Ur Drug Scr Negative Normal < 200 ng/mL [facility] Comment on above: Performed By: #### L 503.0106 #### [facility] Laboratory [address] [place], [address] COCAINE Negative Normal < 300 ng/mL [facility] Comment on above: Performed By: #### L 503.0106 #### [facility] Laboratory [address] [place], [address] Fentanyl Negative Normal [facility] Comment on above: Performed By: #### L 503.0106 #### [facility] Laboratory [address] [place], [address] METHADONE Negative Normal < 300 ng/mL [facility] Comment on above: Performed By: #### L 503.0106 #### [facility] Laboratory [address] [place], [address] OPIATES Negative Normal < 300 ng/mL [facility] Comment on above: Performed By: #### L 503.0106 #### [facility] Laboratory [address] [place], [place], [address] OXYCODONE Negative Normal < 100 ng/mL [facility] Comment on above: Performed By: #### L 503.0106 #### [facility] Laboratory [address] [place], [place], [address] PCP Negative Normal < 25 ng/mL [facility] Comment on above: Performed By: #### L 503.0106 #### [facility] Laboratory [address] [place], [place], [address] THC Positive Normal < 50 ng/mL [facility] Comment on above: Result Comment: If c onfirmation testing is needed, a separate order will be required to send out testing to the reference laboratory. Performed By: #### L 503.0106 #### [facility] Laboratory [address] [place], [address] Vitamin B12on 10-31-2024 Cobalamin (Vitamin B12) [Mass/Vol] 484 pg/mL Normal 180-914 [facility] Comment on above: Performed By: #### L 503.0106 #### [facility] Laboratory [address] [place], [place], [address] Vitamin B12 ser/plasOrdered By: Nehemiah Medrano on 10-31-2024 Cobalamin (Vitamin B12) [Mass/Vol] 484 pg/mL 180-914 [facility] 12 Lead EKGon 10-30-2024 12 Lead EKG [facility] Cardiovascular Services [address] [place] [address] 12 Lead EKG 10/30/242056 MR#: [id number] Acct: [id number] Name: JAYDA OSHEA Maritza Rep #: [id number] : 1985 39 From: Law Eduardo MD [...] ECG Confirmed by JAYCE SCHWAB, LAW ([id number]), communications editor ALLEN VELIA ([id number]) on 10/31/2024 8:43:28 AM Referred By: Confirmed By: LAW EDUARDO MD 10/31/24842 Date Law Eduardo MD CC: Dr. Domenico Silva, ; Dr. Sen Clarke MD; No Primary Care Physician Signed Normal [facility] Absolute lymphocyte countOrd ered By: Domenico Silva on 10-30-2024 Lymphocytes Auto (Unsp spec) [#/Vol] 1.57 10*3/uL 0.83-4.51 [facility] Absolute neutrophil countOrd ered By: Domenico Silva on 10-30-2024 Neutrophils (Bld) [#/Vol] 8.3 10*3/uL High 2.0-7.7 [facility] Activated partial thrombopla stin time (aPTT) in platelet poor plasma by coagulation aOrdered By: Domenico Silva on 10-30-2024 aPTT Coag (PPP) [Time] 25.8 s 24.1-36.2 [facility] Amphetamine detection with 1 000 ng/mL as cutoffOrdered By: Nehemiah Medrano on 10-30-2024 Amphetamines Screen method >1000 ng/mL Ql (U) Positive <1000 ng/mL [facility] Comment on above: If confirmation test ing is needed, a separate order will be required to send out testing to the reference laboratory. Amphetamines Screen method >1000 ng/mL Ql (U) Negative < 200 ng/mL [facility] Anion gap in Serum or Plasma Ordered By: Domenico Silva on 10-30-2024 Anion gap [Moles/Vol] 16 mmol/L High 5-15 [facility] Automated lymphocyte count a s percentage of total leukocytesOrdered By: Domenico Silva on 10-30-2024 Lymphocytes/100 WBC Auto (Unsp spec) 15.0 % Low 19-41 [facility] BUN/creatinine ratioOrdered By: Domenico Silva on 10-30-2024 Urea nitrogen/Creatinine [Mass ratio] 16.5 mg/mg 10- [facility] Basic Metabolic Profile (BMP )on 10-30-2024 BUN/CRE 16.5 RATIO Normal 10- [facility] Comment on above: Performed By: #### L 503.0106 #### [facility] Laboratory [address] [place], [address] Calcium [Mass/Vol] 10.5 mg/dL Normal 7.6-11.0 [facility] Comment on above: Performed By: #### L 503.0106 #### [facility] Laboratory [address] [place], [address] Chloride [Moles/Vol] 100 mmol/L Normal 98-108 [facility] Comment on above: Performed By: #### L 503.0106 #### [facility] Laboratory [address] [place], [address] CO2 [Moles/Vol] 24.6 mmol/L Normal 21.0-32.0 [facility] Comment on above: Performed By: #### L 503.0106 #### [facility] Laboratory [address] [place], [address] Creatinine [Mass/Vol] 0.80 mg/dL Normal 0.70-1.20 [facility] Comment on above: Performed By: #### L 503.0106 #### [facility] Laboratory [address] [place], [address] ECRCL 93.24 ml/min Normal 50-250 [facility] Comment on above: Performed By: #### L 503.0106 #### [facility] Laboratory [address] [place], [address] GAP 16 High 5-15 [facility] Comment on above: Performed By: #### L 503.0106 #### [facility] Laboratory [address] [place], [address] GFR/1.73 sq M.predicted among non-blacks MDRD (S/P/Bld) [Vol rate/Area] 95 mL/min/{1.73_m2} Normal >60 [facility] Comment on above: Result Comment: mL/m in/1.73m2 CKD-EPI Creatinine Equation (2020) Performed By: #### L 503.0106 #### [facility] Laboratory [address] [place], [address] Glucose [Mass/Vol] 92 mg/dL Normal 70-99 [facility] Comment on above: Performed By: #### L 503.0106 #### [facility] Laboratory [address] [place], [address] Potassium [Moles/Vol] 3.4 mmol/L Normal 3.3-5.1 [facility] Comment on above: Performed By: #### L 503.0106 #### [facility] [address] [place], [address] Sodium [Moles/Vol] 141 mmol/L Normal 133-145 [facility] Comment on above: Performed By: #### L 503.0106 #### [facility] Laboratory [address] [place], [address] Urea nitrogen [Mass/Vol] 13 mg/dL Normal 4-19 [facility] Comment on above: Performed By: #### L 503.0106 #### [facility] Laboratory [address] [place], [address] Basophil percentageOrdered B y: Domenico Silva on 10-30-2024 Basophils/100 WBC (Bld) 0.5 % 0-[address] [facility] CBC W/Diff, Automatedon 10-03 Absolute Lymph 1.57 X10 3/uL Normal 0.83-4.51 [facility] Comment on above: Performed By: #### L 503.0106 #### [facility] Laboratory [address] [place], [address] Absolute Neut 8.3 X10 3/uL High 2.0-7.7 [facility] Comment on above: Performed By: #### L 503.0106 #### [facility] Laboratory [address] [place], [address] Basophils/100 WBC (Bld) 0.5 % Normal 0-[address] [facility] Comment on above: Performed By: #### L 503.0106 #### [facility] Laboratory [address] [place], [address] Eosinophils/100 WBC (Bld) 0.4 % Normal 0-5 [facility] Comment on above: Performed By: #### L 503.0106 #### [facility] Laboratory [address] [place], [address] Erythrocyte distribution width (RBC) [Ratio] 12.1 % Normal 11.6-14.6 [facility] Comment on above: Performed By: #### L 503.0106 #### [facility] Laboratory [address] [place], [address] Hematocrit (Bld) [Volume fraction] 54.8 % High 37-47 [facility] Comment on above: Performed By: #### L 503.0106 #### [facility] Laboratory [address] [place], [address] IG% 0.600 Normal 0.0-0.9 [facility] Comment on above: Result Comment: IG% - Immature Granulocytes (promyelocytes, myelocytes and metamyelocytes) > 1% indicates that a LEFT SHIFT is Present. Performed By: #### L 503.0106 #### [facility] Laboratory [address] [place], [address] Lymphocytes/100 WBC (Bld) 15.0 % Low 19-41 [facility] Comment on above: Performed By: #### L 503.0106 #### [facility] Laboratory [address] [place], [address] MCH (RBC) [Entitic mass] 30.4 pg Normal 27.0-32.0 [facility] Comment on above: Performed By: #### L 503.0106 #### [facility] Laboratory [address] [place], [address] MCHC (RBC) [Mass/Vol] 33.8 g/dL Normal 32-36 [facility] Comment on above: Performed By: #### L 503.0106 #### [facility] Laboratory [address] [place], [address] MCV (RBC) [Entitic vol] 90.1 fL Normal 81-99 [facility] Comment on above: Performed By: #### L 503.0106 #### [facility] [address] [place], [address] Monocytes/100 WBC (Bld) 4.2 % Normal 0-10 [facility] Comment on above: Performed By: #### L 503.0106 #### [facility] [address] [place], [address] Neutrophils/100 WBC (Bld) 79.3 % High 47-70 [facility] Comment on above: Performed By: #### L 503.0106 #### [facility] Laboratory [address] [place], [address] Nucleated RBC (Bld) [#/Vol] 0 10*3/uL Normal 0-5 [facility] Comment on above: Performed By: #### L 503.0106 #### [facility] Laboratory [address] [place], [address] Platelet mean volume (Bld) [Entitic vol] 10.0 fL Normal 6.2-12.0 [facility] Comment on above: Performed By: #### L 503.0106 #### [facility] Laboratory [address] [place], [address] Platelets (Bld) [#/Vol] 311 10*3/uL Normal 150-450 [facility] Comment on above: Performed By: #### L 503.0106 #### [facility] [address] [place], [address] RBC (Bld) [#/Vol] 6.08 10*6/uL High 4.2-5.4 [facility] Comment on above: Performed By: #### L 503.0106 #### [facility] [address] [place], [address] RDW SD 39.9 fl Normal 35.1-43.9 [facility] Comment on above: Performed By: #### L 503.0106 #### [facility] [address] [place], [address] WBC (Bld) [#/Vol] 10.5 10*3/uL Normal 4.4-11.0 [facility] Comment on above: Performed By: #### L 503.0106 #### [facility] [address] [place], [address] Carbon dioxide, total [Moles /volume] in Central venous bloodOrdered By: Domenico Silva on 10-30-2024 CO2 [Moles/Vol] 24.6 mmol/L 21.0-32.0 [facility] Chest 1 Viewon 10-30-2024 Chest 1 View [facility] Imaging Services [address] [place] [address] Chest 1 View MR#: [id number] Acct: [id number] Name: JAYDA OSHEA Rep #: [id number] : 1985 F 39 From: Rich Hammond MD PCP: Care Physician,No Primary Status: REG ER Study: Chest 1 View Date of Exam: 10/30/24 Exam# [id number] Ordering Dr: Domenico Silva DO PROCEDURE: CHEST 1 VIEW 10/30/2024 REASON FOR EXAM: NEURO DEFICIT, ACUTE, STROKE SUSPECTED TECHNIQUE: Frontal view of the chest. COMPARISON: 11/27/2023 FINDINGS: Lungs/Pleura: Clear. Heart/Mediastinum: Normal in size. Bones/Soft tissues: Within normal limits. RAD/Chest 1 View IMPRESSION: No acute cardiopulmonary disease. Reading Location: [id number] CC: Dr. Domenico Silva, ; No Primary Care Physician Busser: Signed Normal [facility] Chloride assayOrdered By: Galen Silva on 10-30-2024 Chloride [Moles/Vol] 100 mmol/L 98-108 [facility] Echo Completeon 10-30-2024 Echo Complete [facility] [address] [place] [address] Echo Complete 10/31/24 1012 MR#: [id number] Acct: [id number] Name: JAYDA OSHEA Rep #: [id number] : 1985 39 From: Law Eduardo MD [...] Date Dictated: 10/31/24 1012 Date Transcribed: 10/31/241658 Busser: Signed Normal [facility] Emergency Department Summary on 10-30-2024 Emergency Department Summary [facility] Medical Records Department [address] [place] [address] Emergency Department Summary 10/30/24 MR#: [id number] Acct: [id number] Name: JAYDA OSHEA Rep #: [id number] : 1985 39 From: oDmenico Silva DO PCP: Care Physician,No Primary Status:ADM IN Location: [address] History of Present Illness Chief Complaint: Stroke Alert Informant: patient and EMS Onset/Context/Timing Onset: Today Context: Sudden Onset Timing: Continuous Quality and Location: Positive for Left Arm Weakness and Left Leg Weakness Onset: Last known well was 1530 today (approximately 5 hours and 15 minutes 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 Patient denies any fevers or chills. [facility] Medical History (Updated 10/31/24 @ 00:54 by [...] for cardi (more content not included)... Normal [facility] Eosinophil percentageOrdered By: Domenico Silva on 10-30-2024 Eosinophils/100 WBC (Bld) 0.4 % 0-5 [facility] Erythrocyte distribution wid th ratioOrdered By: Domenico Silva on 10-30-2024 Erythrocyte distribution width (RBC) [Ratio] 12.1 % 11.6-14.6 [facility] Erythrocyte distribution wid th standard deviationOrdered By: Domenico Silva on 10-30-2024 Erythrocyte distribution width (RBC) [Ratio] 39.9 fl 35.1-43.9 [facility] Folate [Moles/volume] in Ser um or PlasmaOrdered By: Nehemiah Medrano on 10-30-2024 Folate [Moles/Vol] 7.69 ng/mL 4.60-34.80 [facility] Comment on above: Hemolysis, Results w ill be affected, Requires Recollection. Glomerular filtration rate ( GFR) estimation/1.73 sq m using serum, plasma, or whole bOrdered By: Domenico Silva on 10-30-2024 GFR/1.73 sq M.predicted among non-blacks MDRD (S/P/Bld) [Vol rate/Area] 95 mL/min/{1.73_m2} >60 [facility] Comment on above: mL/min/1.73m2 CKD-EP I Creatinine Equation (2020) H AND P Exam - Hospital[place] 10-30-2024 H&P Exam - Hospitalist [facility] Medical Records Department [address] [place] [address] H P Exam - Hospitalist 10/30/24 2323 MR#: [id number] Acct: [id number] Name: JAYDA OSHEA Rep #: [id number] : 1985 39 From: Nehemiah Haney DO PCP: Care Physician,No Primary Status:ADM IN Location: [place] [address] HPI - General General Date of Admission: [...] seasonal allergies; on loratadine who presents to [facility] ER complaining of acute Left-sided weakness [...] to extend beyond 2 midnights. [facility] Medical History (Updated 10/31/24 @ 00:55 by [...] Rate 17 (more content not included)... Normal [facility] Hematocrit Auto (Bld) [Volum e fraction]Ordered By: Domenico Silva on 10-30-2024 Hematocrit (Bld) [Volume fraction] 54.8 % High 37-47 [facility] Hemoglobin A1c percentageOrd ered By: Nehemiah Medrano on 10-30-2024 HbA1c (Bld) [Mass fraction] 5.4 % <5.7 [facility] Comment on above: Normal < 5.7 % Predi abetic 5.7 - 6.4 % Diabetic >or= 6.5 % Please note range changes. Hemoglobin measurementOrdere d By: Domenico Silva on 10-30-2024 Hemoglobin (Bld) [Mass/Vol] 18.5 g/dL Invalid Interpretation Code 12.0-15.0 [facility] Comment on above: CRITICAL VALUE PETERSON D TO [id number]/30/252058 Laquita Shell.RESULTS READ BACK BY SAME. Result Comment: CRIT ICAL VALUE CALLED TO MMARTIN 10/30/242058 Laquita Shell. RESULTS READ BACK BY SAME. Performed By: #### L 503.0106 #### [facility] [address] [place], [place], [address] Immature granulocytes/100 WB C Auto (Bld)Ordered By: Domenico Silva on 10-30-2024 Immature granulocytes/100 WBC (Bld) 0.600 % 0.0-0.9 [facility] Comment on above: IG% - Immature Granu locytes (promyelocytes, myelocytes and metamyelocytes) > 1% indicates that a LEFT SHIFT is Present. International normalized rat io (INR) calculationOrdered By: Domenico Silva on 10-30-2024 INR Coag (Bld) [Relative time] 0.9 {INR} [facility] L501.4021on 10-30-2024 Trop T High Sen < 6 Normal <=14 [facility] Comment on above: Performed By: #### L 503.0106 #### [facility] [address] [place], [place], [address] MCV (mean corpuscular volume ) determinationOrdered By: Domenico Silva on 10-30-2024 MCV (RBC) [Entitic vol] 90.1 fL 81-[address] [facility] Mean corpuscular hemoglobin (MCH) determinationOrdered By: Domenico Silva on 10-30-2024 MCH (RBC) [Entitic mass] 30.4 pg 27.0-32.0 [facility] Mean corpuscular hemoglobin concentration (MCHC) determinationOrdered By: Domenico Silva on 10-30-2024 MCHC (RBC) [Mass/Vol] 33.8 g/dL 32-36 [facility] Mean platelet volume determi nationOrdered By: Domenico Silva on 10-30-2024 Platelet mean volume (Bld) [Entitic vol] 10.0 fL 6.2-12.0 [facility] Monocyte percentageOrdered B y: Domenico Silva on 10-30-2024 Monocytes/100 WBC (Bld) 4.2 % 0-[address] [facility] Neutrophil percentageOrdered By: Domenico Silva on 10-30-2024 Neutrophils/100 WBC (Bld) 79.3 % High 47-70 [facility] No Panel InformationOrdered By: Nehemiah Medrano on 10-30-2024 Urine Buprenorphine Qualitative Negative < 200 ng/mL [facility] Urine Oxycodone Screen Negative < 100 ng/mL [facility] Nucleated red blood cell per centageOrdered By: Domenico Silva on 10-30-2024 Nucleated RBC/100 WBC (Bld) [Ratio] 0 % 0-5 [facility] Partial Thromboplast Timeon 10-30-2024 aPTT Coag (Bld) [Time] 25.8 s Normal 24.1-36.2 [facility] Comment on above: Performed By: #### L 503.0106 #### [facility] [address] [place], [place], [address] Platelet countOrdered By: Galen Silva on 10-30-2024 Platelets (Bld) [#/Vol] 311 10*3/uL 150-450 [facility] Potassium measurement (mass/ volume)Ordered By: Domenico Silva on 10-30-2024 Potassium (Unsp spec) [Mass/Vol] 3.4 mmol/L 3.3-5.1 [facility] Prothrombin Time w/INRon INR Coag (PPP) [Relative time] 0.9 {INR} Normal [facility] Comment on above: Performed By: #### L 503.0106 #### [facility] [address] [place], [place], [address] PT Coag (PPP) [Time] 11.8 s Normal 11.7-14.9 [facility] Comment on above: Performed By: #### L 503.0106 #### [facility] [address] [place], [place], [address] Prothrombin timeOrdered By: Domenico Silva on 10-30-2024 PT Coag (PPP) [Time] 11.8 s 11.7-14.9 [facility] Quantitative urine opiates m easurementOrdered By: Nehemiah Medrano on 10-30-2024 Opiates Ql (U) Negative < 300 ng/mL [facility] RBC Auto (Bld) [#/Vol]Ordere d By: Domenico Silva on 10-30-2024 RBC (Bld) [#/Vol] 6.08 10*6/uL High 4.2-5.4 [facility] STROKE Brain/Head without Co nton 10-30-2024 STROKE Brain/Head without Cont [facility] Imaging Services [address] [place] [address] STROKE Brain/Head without Cont MR#: [id number] Acct: [id number] Name: JAYDA OSHEA Rep #: [id number] : 1985 F 39 From: Jeanette Roque PCP: Care Physician,No Primary Status: REG ER Study: STROKE Brain/Head without Cont Date of Exam: 0 10/30/24 Exam# [id number] Ordering Dr: Domenico Silva DO PROCEDURE: STROKE [...] 9:01 pm EST on 10/30/24. Reading Location: [facility] CC: Dr. Domenico Silva, DO; No Primary Care Physician Busser: Signed Normal [facility] STROKE CTA Head AND Neck W/C onon 10-30-2024 STROKE CTA Head AND Neck W/Con [facility] Imaging Services [address] [place] [address] STROKE CTA Head AND Neck W/Con MR#: [id number] Acct: [id number] Name: JAYDA OSHEA Rep #: [id number] : 1985 F 39 From: Jeanette Roque PCP: Care Physician,No Primary Status: REG ER Study: STROKE CTA Head AND Neck W/Con Date of Exam: 0 10/30/24 Exam# [id number] Ordering Dr: Domenico Silva DO PROCEDURE: STROKE [...] the tip of the basilar. Both proximal SCRATCH BRUSHER segments are patent. There is no large vessel occlusion. There is no enhancing intracranial mass. Shotty cervical lymph nodes are identified. The thyroid gland is heterogeneous. The lung apices demonstrate no pneumothorax. No destructive osseous abnormalities identified. CT/STROKE CTA Head AND Neck W/Con IMPRESSION: No acute large vessel occlusion. No high grade stenosis. Reading Location: [facility] CC: Dr. Domenico Silva, DO; No Primary Care Physician Busser: Signed Normal [facility] Screening urine fentanyl silva surementOrdered By: Nehemiah Medrano on 10-30-2024 fentaNYL Screen Ql (U) Negative [facility] Serum creatinine measurement (mass/volume)Ordered By: Domenico Silva on 10-30-2024 Creatinine [Mass/Vol] 0.80 mg/dL 0.70-1.20 [facility] Serum glucose measurement (m ass/volume)Ordered By: Domenico Silva on 10-30-2024 Glucose [Mass/Vol] 92 mg/dL 70-99 [facility] Serum or plasma calcium sasha urement (mass/volume)Ordered By: Domenico Silva on 10-30-2024 Calcium [Mass/Vol] 10.5 mg/dL 7.6-11.0 [facility] Serum or plasma urea nitroge n measurement (mass/volume)Ordered By: Domenico Silva on 10-30-2024 Urea nitrogen [Mass/Vol] 13 mg/dL 4-19 [facility] Sodium levelOrdered By: Domenico Silva on 10-30-2024 Sodium [Moles/Vol] 141 mmol/L 133-145 [facility] TSH DL <= 0.005 mIU/L QnOrde red By: Nehemiah Medrano on 10-30-2024 TSH Qn 3.230 uIU/mL 0.300-4.200 [facility] Troponin T HS 2 HRon 025 Trop T High Sen < 6 Normal <=14 [facility] Comment on above: Performed By: #### L 503.0106 #### [facility] Laboratory [address] [place], [place], [address] Troponin T.cardiac [Mass/vol ume] in Serum or Plasma by High sensitivity methodOrdered By: Domenico Silva on 10-30-2024 Troponin T.cardiac High sensitivity method [Mass/Vol] < 6 ng/L <14 [facility] Troponin T.cardiac High sensitivity method [Mass/Vol] < 6 ng/L <14 [facility] Urine benzodiazepine levelOr dered By: Nehemiah Medrano on 10-30-2024 Benzodiazepines Ql (U) Negative < 200 ng/mL [facility] Urine cocaine levelOrdered B y: Nehemiah Medrano on 10-30-2024 Cocaine Ql (U) Negative < 300 ng/mL [facility] Urine nbwhe-2-faagcrmpkygjge abinol (THC) measurementOrdered By: Nehemiah Medrano on 10-30-2024 Cannabinoids Screen Ql (U) Positive < 50 ng/mL [facility] Comment on above: If confirmation test ing is needed, a separate order will be required to send out testing to the reference laboratory. Urine phencyclidine (PCP) de tectionOrdered By: Nehemiah Medrano on 10-30-2024 Phencyclidine Ql (U) Negative < 25 ng/mL [facility] White blood cell (WBC) count Ordered By: Domenico Silva on 10-30-2024 WBC (Bld) [#/Vol] 10.5 10*3/uL 4.4-11.0 [facility] Foot min 3 Viewson 5 Foot min 3 Views [facility] Imaging Services [address] [place], [place] [address] (038) Foot min 3 Views MR#: [id number] Acct: [id number] Name: JAYDA OSHEA Rep #: [id number] : 1985 F 38 From: Shalom lin MD PCP: Care Physician,No Primary Status: REG CLI Study: Foot min 3 Views Date of Exam: 08/19/24 Exam# [id number] Ordering Dr: Yefri Sotelo PROCEDURE: FOOT MIN [...] degree of soft tissue swelling. Reading Location: [place] [address] CC: No Primary Care Physician; STAN Sanches Busser: Signed Normal [facility] Urgent Care Visit Reporton 0 08-19-2024 Urgent Care Visit Report [facility] [address] [place] [id number] OFFICE VISIT Date of Service: 08/19/24 MR#: [id number] Acct: [id number] Name: JAYDA OSHEA Rep #: [id number] : 1985 Provider: STAN Sanches Age/Sex: 38/F Location[facility] Status: Signed Intake Vital Signs 11/27/23 11:31 [...] of breaking her big toe. [facility] Medical History (Updated 08/19/24 @ 11:47 by [...] as she describes. She has taken no pmdn-tgi-tlenzmh products to assist. Pain is aggravated/and with [...] the above. This note was generated with [employer] dictation software. It may contain incorrect words, spelling, and punctuation that were not noted in checking the note before signing. Orders: Orders Foot min 3 Views Today M79.671 - Pain in right foot 08/19/24 1149 Date Yefri Paniagua Signature: Date (if applicable) CC: Normal [facility] 12 Lead EKGon 11-27-2023 12 Lead EKG [facility] Cardiovascular Services [address] [place] [address] 12 Lead EKG 11/27/23 1143 MR#: [id number] Acct: [id number] Name: JAYDA OSHEA Rep #: [id number] : 1985 38 From: Chevy Gann MD [...] rhythm Normal ECG Confirmed by Chevy Gann ([id number]), communications editor KAVON BARONE ([id number]) on 11/29/2023 8:16:27 AM Referred By: BRANDY Confirmed By:Chevy Gann 11/29/23815 Date Chevy Gann MD CC: Dr. Lauri Puga, DO; No Primary Care Physician Signed Normal [facility] Basic Metabolic Profile (BMP )on 11-27-2023 BUN/CRE 15.9 RATIO Normal 10-20 [facility] Comment on above: Order Comment: REDRA W. PREVIOUS SPECIMEN REJECTED DUE TO HEMOLYSIS. 11/27/231247 1 Y Performed By: #### L 500.2500, L501.5425 #### [facility] Laboratory [address] [place], [address] CA,Total 9.1 mg/dL Normal 8.5-10.1 [facility] Comment on above: Order Comment: REDRA W. PREVIOUS SPECIMEN REJECTED DUE TO HEMOLYSIS. 11/27/231247 1 Y Performed By: #### L 500.2500, L501.5425 #### [facility] [address] [place], [address] Chloride [Moles/Vol] 107 mmol/L Normal 98-107 [facility] Comment on above: Order Comment: REDRA W. PREVIOUS SPECIMEN REJECTED DUE TO HEMOLYSIS. 11/27/231247 1 Y Performed By: #### L 500.2500, L501.5425 #### [facility] [address] [place], [address] CO2 [Moles/Vol] 28.0 mmol/L Normal 21.0-32.0 [facility] Comment on above: Order Comment: REDRA W. PREVIOUS SPECIMEN REJECTED DUE TO HEMOLYSIS. 11/27/231247 1 Y Performed By: #### L 500.2500, L501.5425 #### [facility] [address] [place], [address] Creatinine [Mass/Vol] 0.69 mg/dL Normal 0.55-1.02 [facility] Comment on above: Order Comment: REDRA W. PREVIOUS SPECIMEN REJECTED DUE TO HEMOLYSIS. 11/27/231247 1 Y Result Comment: The validity of the calculated GFR GFRAA in patients over 70 years has not been determined. Clinical correlation is essential. Performed By: #### L 500.2500, L501.5425 #### [facility] [address] [place], [address] ECRCL 111.41 ml/min Normal [facility] Comment on above: Order Comment: REDRA W. PREVIOUS SPECIMEN REJECTED DUE TO HEMOLYSIS. 11/27/231247 1 Y Performed By: #### L 500.2500, L501.5425 #### [facility] [address] [place], [address] EST GFR - AA 121 mL/min Normal >60 [facility] Comment on above: Order Comment: REDRA W. PREVIOUS SPECIMEN REJECTED DUE TO HEMOLYSIS. 11/27/231247 1 Y Result Comment: Afri can Fijian GFR Calc Performed By: #### L 500.2500, L501.5425 #### [facility] [address] [place], [address] GAP 3 Low 5-15 [facility] Comment on above: Order Comment: REDRA W. PREVIOUS SPECIMEN REJECTED DUE TO HEMOLYSIS. 11/27/231247 1 Y Performed By: #### L 500.2500, L501.5425 #### [facility] [address] [place], [address] GFR/1.73 sq M.predicted among non-blacks MDRD (S/P/Bld) [Vol rate/Area] 100 mL/min/{1.73_m2} Normal >60 [facility] Comment on above: Order Comment: REDRA W. PREVIOUS SPECIMEN REJECTED DUE TO HEMOLYSIS. 11/27/231247 1 Y Result Comment: Non- GFR Calc Performed By: #### L 500.2500, L501.5425 #### [facility] [address] [place], [address] Glucose [Mass/Vol] 107 mg/dL High 74-106 [facility] Comment on above: Order Comment: REDRA W. PREVIOUS SPECIMEN REJECTED DUE TO HEMOLYSIS. 11/27/231247 1 Y Result Comment: Fast ing Glucose result from 100 to 125 mg/dL suggests IMPAIRED HOMEOSTASIS per A.D.A. criteria. Performed By: #### L 500.2500, L501.5425 #### [facility] [address] [place], [address] Potassium [Moles/Vol] 4.1 mmol/L Normal 3.5-5.1 [facility] Comment on above: Order Comment: REDRA W. PREVIOUS SPECIMEN REJECTED DUE TO HEMOLYSIS. 11/27/231247 1 Y Performed By: #### L 500.2500, L501.5425 #### [facility] [address] [place], [address] Sodium [Moles/Vol] 138 mmol/L Normal 136-145 [facility] Comment on above: Order Comment: REDRA W. PREVIOUS SPECIMEN REJECTED DUE TO HEMOLYSIS. 11/27/231247 1 Y Performed By: #### L 500.2500, L501.5425 #### [facility] [address] [place], [address] Urea nitrogen [Mass/Vol] 11 mg/dL Normal 7-18 [facility] Comment on above: Order Comment: REDRA W. PREVIOUS SPECIMEN REJECTED DUE TO HEMOLYSIS. 11/27/231247 1 Y Performed By: #### L 500.2500, L501.5425 #### [facility] [address] [place], [address] BUN Normal 7-18 [facility] Comment on above: Order Comment: 1 Y Result Comment: This specimen has been REJECTED due to Laboratory criteria: [golden CHRISTENSEN]. NATALIA has been notified of need of recollection. 11/27/23 1246 Francisca Clapper Performed By: #### L 500.2500, L100.0100 #### [facility] [address] [place], [address] BUN/CRE Normal 10-20 [facility] Comment on above: Order Comment: 1 Y Result Comment: This specimen has been REJECTED due to Laboratory criteria: [golden CHRISTENSEN]. NATALIA has been notified of need of recollection. 11/27/23 1246 Francisca Clapper Performed By: #### L 500.2500, L100.0100 #### [facility] [address] [place], [address] CA,Total Normal 8.5-10.1 [facility] Comment on above: Order Comment: 1 Y Result Comment: This specimen has been REJECTED due to Laboratory criteria: [golden CHRISTENSEN]. NATALIA has been notified of need of recollection. 11/27/23 1246 Francisca Clapper Performed By: #### L 500.2500, L100.0100 #### [facility] [address] [place], [address] CL Normal 98-107 [facility] Comment on above: Order Comment: 1 Y Result Comment: This specimen has been REJECTED due to Laboratory criteria: [golden CHRISTENSEN]. NATALIA has been notified of need of recollection. 11/27/23 1246 Francisca Clapper Performed By: #### L 500.2500, L100.0100 #### [facility] [address] [place], [address] CO2 Normal 21.0-32.0 [facility] Comment on above: Order Comment: 1 Y Result Comment: This specimen has been REJECTED due to Laboratory criteria: [golden CHRISTENSEN]. NATALIA has been notified of need of recollection. 11/27/23 1246 Francisca Clapper Performed By: #### L 500.2500, L100.0100 #### [facility] [address] [place], [address] CREAT,SERUM Normal 0.55-1.02 [facility] Comment on above: Order Comment: 1 Y Result Comment: This specimen has been REJECTED due to Laboratory criteria: [golden CHRISTENSEN]. NATALIA has been notified of need of recollection. 11/27/23 1246 Francisca Clapper Performed By: #### L 500.2500, L100.0100 #### [facility] [address] [place], [address] EST GFR Normal >60 [facility] Comment on above: Order Comment: 1 Y Result Comment: This specimen has been REJECTED due to Laboratory criteria: [golden CHRISTENSEN]. NATALIA has been notified of need of recollection. 11/27/23 1246 Francisca Clapper Performed By: #### L 500.2500, L100.0100 #### [facility] [address] [place], [address] EST GFR - AA Normal >60 [facility] Comment on above: Order Comment: 1 Y Result Comment: This specimen has been REJECTED due to Laboratory criteria: [golden CHRISTENSEN]. NATALIA has been notified of need of recollection. 11/27/23 1246 Francisca Clapper Performed By: #### L 500.2500, L100.0100 #### [facility] [address] [place], [address] GAP Normal 5-15 [facility] Comment on above: Order Comment: 1 Y Result Comment: This specimen has been REJECTED due to Laboratory criteria: [golden CHRISTENSEN]. NATALIA has been notified of need of recollection. 11/27/23 1246 Francisca Clapper Performed By: #### L 500.2500, L100.0100 #### [facility] [address] [place], [address] GLU Normal 74-106 [facility] Comment on above: Order Comment: 1 Y Result Comment: This specimen has been REJECTED due to Laboratory criteria: [golden CHRISTENSEN]. NATALIA has been notified of need of recollection. 11/27/23 1246 Francisca Clapper Performed By: #### L 500.2500, L100.0100 #### [facility] [address] [place], [address] Potassium Normal 3.5-5.1 [facility] Comment on above: Order Comment: 1 Y Result Comment: This specimen has been REJECTED due to Laboratory criteria: [golden CHRISTENSEN]. NATALIA has been notified of need of recollection. 11/27/23 1246 Francisca Clapper Performed By: #### L 500.2500, L100.0100 #### [facility] [address] [place], [address] Basic Metabolic Profile (BMP) Normal 136-145 [facility] Comment on above: Order Comment: 1 Y Result Comment: This specimen has been REJECTED due to Laboratory criteria: [gloden CHRISTENSEN]. NATALIA has been notified of need of recollection. 11/27/23 1246 Francisca Clapper Performed By: #### L 500.2500, L100.0100 #### [facility] [address] [place], [address] CBC W/Diff, Automatedon 11-02 Absolute Lymph 2.14 X10 3/uL Normal 0.83-4.51 [facility] Comment on above: Order Comment: REDRA W. PREVIOUS SPECIMEN REJECTED DUE TO CLOT' . 11/27/23 1222 Елена Lewis. Performed By: #### L 100.0100 #### [facility] [address] [place], [address] Absolute Neut 6.8 X10 3/uL Normal 2.0-7.7 [facility] Comment on above: Order Comment: REDRA W. PREVIOUS SPECIMEN REJECTED DUE TO CLOT' . 11/27/23 1222 Елена Lewis. Performed By: #### L 100.0100 #### [facility] [address] [place], [address] Basophils/100 WBC (Bld) 0.4 % Normal 0-[address] [facility] Comment on above: Order Comment: REDRA W. PREVIOUS SPECIMEN REJECTED DUE TO CLOT' . 11/27/23 1222 Елена Lewis. Performed By: #### L 100.0100 #### [facility] [address] [place], [address] Eosinophils/100 WBC (Bld) 0.8 % Normal 0-5 [facility] Comment on above: Order Comment: REDRA W. PREVIOUS SPECIMEN REJECTED DUE TO CLOT' . 11/27/23 1222 Леена Joshua. Performed By: #### L 100.0100 #### [facility] [address] [place], [address] Erythrocyte distribution width (RBC) [Ratio] 11.2 % Low 11.6-14.6 [facility] Comment on above: Order Comment: REDRA W. PREVIOUS SPECIMEN REJECTED DUE TO CLOT' . 11/27/23 1222 Еленаmalcolm Lewis. Performed By: #### L 100.0100 #### [facility] [address] [place], [address] Hematocrit (Bld) [Volume fraction] 43.8 % Normal 37-47 [facility] Comment on above: Order Comment: REDRA W. PREVIOUS SPECIMEN REJECTED DUE TO CLOT' . 11/27/23 1222 Елена Lewis. Performed By: #### L 100.0100 #### [facility] [address] [place], [address] Hemoglobin (Bld) [Mass/Vol] 14.5 g/dL Normal 12.0-15.0 [facility] Comment on above: Order Comment: REDRA W. PREVIOUS SPECIMEN REJECTED DUE TO CLOT' . 11/27/23 1222 Елена Lewis. Performed By: #### L 100.0100 #### [facility] [address] [place], [address] IG% 0.600 Normal 0.0-0.9 [facility] Comment on above: Order Comment: REDRA W. PREVIOUS SPECIMEN REJECTED DUE TO CLOT' . 11/27/23 1222 Елена Joshua. Result Comment: IG% - Immature Granulocytes (promyelocytes, myelocytes and metamyelocytes) > 1% indicates that a LEFT SHIFT is Present. Performed By: #### L 100.0100 #### [facility] [address] [place], [address] Lymphocytes/100 WBC (Bld) 22.0 % Normal 19-41 [facility] Comment on above: Order Comment: REDRA W. PREVIOUS SPECIMEN REJECTED DUE TO CLOT' . 11/27/23 1222 Елена Joshua. Performed By: #### L 100.0100 #### [facility] [address] [place], [address] MCH (RBC) [Entitic mass] 30.1 pg Normal 27.0-32.0 [facility] Comment on above: Order Comment: REDRA W. PREVIOUS SPECIMEN REJECTED DUE TO CLOT' . 11/27/23 1222 Еленаmalcolm Lewis. Performed By: #### L 100.0100 #### [facility] [address] [place], [address] MCHC (RBC) [Mass/Vol] 33.1 g/dL Normal 32-36 [facility] Comment on above: Order Comment: REDRA W. PREVIOUS SPECIMEN REJECTED DUE TO CLOT' . 11/27/23 1222 Елена Lewis. Performed By: #### L 100.0100 #### [facility] [address] [place], [address] MCV (RBC) [Entitic vol] 91.1 fL Normal 81-99 [facility] Comment on above: Order Comment: REDRA W. PREVIOUS SPECIMEN REJECTED DUE TO CLOT' . 11/27/23 1222 Еленаmalcolm Lewis. Performed By: #### L 100.0100 #### [facility] [address] [place], [address] Monocytes/100 WBC (Bld) 6.7 % Normal 0-[address] [facility] Comment on above: Order Comment: REDRA W. PREVIOUS SPECIMEN REJECTED DUE TO CLOT' . 11/27/23 1222 Елена Lewis. Performed By: #### L 100.0100 #### [facility] [address] [place], [address] Neutrophils/100 WBC (Bld) 69.5 % Normal 47-70 [facility] Comment on above: Order Comment: REDRA W. PREVIOUS SPECIMEN REJECTED DUE TO CLOT' . 11/27/23 1222 Елена Lewis. Performed By: #### L 100.0100 #### [facility] [address] [place], [address] Nucleated RBC (Bld) [#/Vol] 0 10*3/uL Normal 0-5 [facility] Comment on above: Order Comment: REDRA W. PREVIOUS SPECIMEN REJECTED DUE TO CLOT' . 11/27/23 [facility]2 Елена Lewis. Performed By: #### L 100.0100 #### [facility] [address] [place], [address] Platelet mean volume (Bld) [Entitic vol] 9.6 fL Normal 6.2-12.0 [facility] Comment on above: Order Comment: REDRA W. PREVIOUS SPECIMEN REJECTED DUE TO CLOT' . 11/27/23 1222 Елена Lewis. Performed By: #### L 100.0100 #### [facility] [address] [place], [address] Platelets (Bld) [#/Vol] 260 10*3/uL Normal 150-450 [facility] Comment on above: Order Comment: REDRA W. PREVIOUS SPECIMEN REJECTED DUE TO CLOT' . 11/27/23 1222 Елена Lewis. Performed By: #### L 100.0100 #### [facility] [address] [place], [address] RBC (Bld) [#/Vol] 4.81 10*6/uL Normal 4.2-5.4 [facility] Comment on above: Order Comment: REDRA W. PREVIOUS SPECIMEN REJECTED DUE TO CLOT' . 11/27/23 1222 Елена Lewis. Performed By: #### L 100.0100 #### [facility] [address] [place], [address] RDW SD 37.7 fl Normal 35.1-43.9 [facility] Comment on above: Order Comment: REDRA W. PREVIOUS SPECIMEN REJECTED DUE TO CLOT' . 11/27/23 1222 Елена Lewis. Performed By: #### L 100.0100 #### [facility] [address] [place], [address] WBC (Bld) [#/Vol] 9.7 10*3/uL Normal 4.4-11.0 [facility] Comment on above: Order Comment: REDRA W. PREVIOUS SPECIMEN REJECTED DUE TO CLOT' . 11/27/23 1222 Елена Joshua. Performed By: #### L 100.0100 #### [facility] [address] [place], [address] Absolute Neut Normal 2.0-7.7 [facility] Comment on above: Result Comment: This specimen has been REJECTED due to Laboratory criteria: Clotted. NATALIA has been notified of need of recollection. 11/27/23 1221 Елена Joshua Performed By: #### L 500.2500, L100.0100 #### [facility] [address] [place], [address] HCT Normal 37-47 [facility] Comment on above: Result Comment: This specimen has been REJECTED due to Laboratory criteria: Clotted. NATALIA has been notified of need of recollection. 11/27/23 1221 Елена Joshua Performed By: #### L 500.2500, L100.0100 #### [facility] [address] [place], [address] HGB Normal 12.0-15.0 [facility] Comment on above: Result Comment: This specimen has been REJECTED due to Laboratory criteria: Clotted. NATALIA has been notified of need of recollection. 11/27/23 1221 Елена Lewis Performed By: #### L 500.2500, L100.0100 #### [facility] [address] [place], [address] MCH Normal 27.0-32.0 [facility] Comment on above: Result Comment: This specimen has been REJECTED due to Laboratory criteria: Clotted. NATALIA has been notified of need of recollection. 11/27/23 1221 Елена Lewis Performed By: #### L 500.2500, L100.0100 #### [facility] [address] [place], [address] MCHC Normal 32-36 [facility] Comment on above: Result Comment: This specimen has been REJECTED due to Laboratory criteria: Clotted. NATALIA has been notified of need of recollection. 11/27/23 1221 Елена Lewis Performed By: #### L 500.2500, L100.0100 #### [facility] [address] [place], [address] MCV Normal 81-99 [facility] Comment on above: Result Comment: This specimen has been REJECTED due to Laboratory criteria: Clotted. NATALIA has been notified of need of recollection. 11/27/23 1221 Елена Lewis Performed By: #### L 500.2500, L100.0100 #### [facility] [address] [place], [address] NEUT% Normal 47-70 [facility] Comment on above: Result Comment: This specimen has been REJECTED due to Laboratory criteria: Clotted. NATALIA has been notified of need of recollection. 11/27/23 1221 Елена Lewis Performed By: #### L 500.2500, L100.0100 #### [facility] [address] [place], [address] PLT Normal 150-450 [facility] Comment on above: Result Comment: This specimen has been REJECTED due to Laboratory criteria: Clotted. NATALIA has been notified of need of recollection. 11/27/23 1221 Елена Lewis Performed By: #### L 500.2500, L100.0100 #### [facility] [address] [place], [address] RBC Normal 4.2-5.4 [facility] Comment on above: Result Comment: This specimen has been REJECTED due to Laboratory criteria: Clotted. NATALIA has been notified of need of recollection. 11/27/23 1221 Елена Lewis Performed By: #### L 500.2500, L100.0100 #### [facility] [address] [place], [address] RDW CV Normal 11.6-14.6 [facility] Comment on above: Result Comment: This specimen has been REJECTED due to Laboratory criteria: Clotted. NATALIA has been notified of need of recollection. 11/27/23 1221 Елена Lewis Performed By: #### L 500.2500, L100.0100 #### [facility] [address] [place], [address] RDW SD Normal 35.1-43.9 [facility] Comment on above: Result Comment: This specimen has been REJECTED due to Laboratory criteria: Clotted. NATALIA has been notified of need of recollection. 11/27/23 1221 Елена Lewis Performed By: #### L 500.2500, L100.0100 #### [facility] [address] [place], [address] WBC Normal 4.4-11.0 [facility] Comment on above: Result Comment: This specimen has been REJECTED due to Laboratory criteria: Clotted. NATALIA has been notified of need of recollection. 11/27/23 1221 Елена Lewis Performed By: #### L 500.2500, L100.0100 #### [facility] [address] [place], [address] CNOVon 11-27-2023 CNOV Office Visit (UCWSTR ) JAYDA OSHEA ([id number]) 1985 F Date Time Provider Department 11/27/23 11:30 AM VONNIE DICKERSON [facility] During your visit today, we recorded the following information about you: Blood pressure 190/110 Vonnie Dickerson APRN.CNP 11/27/2023 11:37 AM Signed Patient triaged at [facility]. Here today with sob, left arm pain, elevated bp. Bp 190/110. I will refer to ER. Patient declines squad. Patient in no visible distress at time of triage. Allergies As of Date: 11/27/2023 Noted Allergy Reaction NAPROSYN (NAPROXEN) 07/25/2014 4 - Hives SEASONAL ALLERGIES 06/30/2009 Comments: sinus reaction Date Reviewed: 05/15/2020 Reviewed by: Corinne Nichole ([facility]) - Fully Assessed Reason for [...] Status:Closed by VONNIE DICKERSON on 11/27/23 Normal [facility] Chest 1 View (Portable)on Chest 1 View (Portable) [facility] Imaging Services [address] [place] [id number] Chest 1 View (Portable) MR#: [id number] Acct: [id number] Name: JAYDA OSHEA Maritza Rep #: [id number] : 1985 F 38 From: Anuj Mancilla MD PCP: Care Physician,No Primary Status: REG ER Study: Chest 1 View (Portable) Date of Exam: 11/27/23 Exam# [id number] Ordering Dr: Lauri Puga [place] [id number] STUDY: X-RAY CHEST REASON FOR EXAM: Female, [...] Lauri Puga, DO; No Primary Care Physician Busser: Signed Normal [facility] Emergency Department Summary on 11-27-2023 Emergency Department Summary [facility] Medical Records Department [address] [place] [address] Emergency Department Summary 11/27/23 MR#: [id number] Acct: [id number] Name: JAYDA OSHEA Rep #: [id number] : 1985 38 From: Lauri Puga DO [...] lesions note (more content not included)... Normal [facility] L501.4020on 11-27-2023 TROPONIN-I HS 7 pg/mL Normal 3.0-54.0 [facility] Comment on above: Result Comment: Plea se Note: New Test Units and Gender Specific Reference Ranges. For more information see Policy Stat Procedure [place] High Sensitivity Troponin (TNIH) and attachments. Performed By: #### L 501.4020 #### [facility] [address] [place], [place], [address] L501.5425on 11-27-2023 TROPONIN-I HS 6 pg/mL Normal 3.0-54.0 [facility] Comment on above: Order Comment: RED W. PREVIOUS SPECIMEN REJECTED DUE TO HEMOLYSIS. 11/27/23 1248 1 Y Result Comment: Plea se Note: New Test Units and Gender Specific Reference Ranges. For more information see Policy Stat Procedure [place] High Sensitivity Troponin (TNIH) and attachments. Performed By: #### L 500.2500, L501.5425 #### [facility] [address] [place], [place], [address] Vital Signs Date Time Vital Sign Value Performing Clinician Leslye levin 11-01-2024 14:30-0400 Body temperature 97.2 [degF] No Primary Care Physician [facility] 11-01-2024 14:30-0400 Diastolic blood pressure 103 mm[Hg] No Primary Care Physician [facility] 11-01-2024 14:30-0400 Heart rate 77 /min No Primary Care Physician [facility] 11-01-2024 14:30-0400 Respiratory rate 16 /min No Primary Care Physician [facility] 11-01-2024 14:30-0400 SaO2% (BldA) [Mass fraction] 99 % No Primary Care Physician [facility] 11-01-2024 14:30-0400 Systolic blood pressure 183 mm[Hg] No Primary Care Physician [facility] 11-01-2024 13:00-0400 Body mass index (BMI) [Ratio] 30 kg/m2 No Primary Care Physician [facility] 10-31-2024 10:21-0400 Body height 162.56 cm No Primary Care Physician [facility] 10-31-2024 10:21-0400 Body weight 79.4 kg No Primary Care Physician [facility] 10-31-2024 00:00-0400 Diastolic blood pressure 99 mm[Hg] No Primary Care Physician [facility] 10-31-2024 00:00-0400 Heart rate 69 /min No Primary Care Physician [facility] 10-31-2024 00:00-0400 Respiratory rate 16 /min No Primary Care Physician [facility] 10-31-2024 00:00-0400 SaO2% (BldA) [Mass fraction] 100 % No Primary Care Physician [facility] 10-31-2024 00:00-0400 Systolic blood pressure 166 mm[Hg] No Primary Care Physician [facility] 10-30-2024 23:14-0400 Body temperature 98 [degF] No Primary Care Physician [facility] 10-30-2024 20:50-0400 Body height 162.56 cm No Primary Care Physician [facility] 10-30-2024 20:50-0400 Body mass index (BMI) [Ratio] 29.3 kg/m2 No Primary Care Physician [facility] 10-30-2024 20:50-0400 Body weight 77.5 kg No Primary Care Physician [facility] 08-19-2024 11:28-0400 Body height 162.56 cm No Primary Care Physician [facility] 08-19-2024 11:28-0400 Body mass index (BMI) [Ratio] 29.9 kg/m2 No Primary Care Physician [facility] 08-19-2024 11:28-0400 Body temperature 98.2 [degF] No Primary Care Physician [facility] 08-19-2024 11:28-0400 Body weight 79.03 kg No Primary Care Physician [facility] 08-19-2024 11:28-0400 Diastolic blood pressure 86 mm[Hg] No Primary Care Physician [facility] 08-19-2024 11:28-0400 Heart rate 94 /min No Primary Care Physician [facility] 08-19-2024 11:28-0400 SaO2% (BldA) [Mass fraction] 97 % No Primary Care Physician [facility] 08-19-2024 11:28-0400 Systolic blood pressure 122 mm[Hg] No Primary Care Physician [facility] 11-27-2023 11:34-0400 Diastolic blood pressure 110 mm[Hg] Vonnie Dickerson APRN.[employer] Work Phone: [facility] 11-27-2023 11:34-0400 Systolic blood pressure 190 mm[Hg] Vonnie Dickerson APRN.[employer]IST Work Phone: [facility] Encounters Encounter Date Encounter Type Care Provider Facility Start: 11-01-2024 Evaluation and management of inpatient Lori Mcdonougho Facility:[facility] Start: 11-01-2024 ambulatory [place] [facility] Start: 10-31-2024 ambulatory Law Jayce Facility:[facility] Start: 10-31-2024 Non-patient / Non-visit [facility] Start: 10-30-2024 ambulatory David Baljinder [facility] Start: 10-30-2024 End: 11-01-2024 Evaluation and management of inpatient Dr. Nehemiah Haney DO -Progressive Care Unit Work Phone: Start: 08-19-2024 End: 08-19-2024 Patient encounter procedure Yefri Sotelo [facility] Work Phone: Start: 08-19-2024 End: 08-19-2024 ambulatory No Primary Care Physician [facility] Work Phone: Start: 08-19-2024 End: 08-19-2024 ambulatory Yefri PIERCE Facility:[facility] Start: 11-27-2023 End: 11-27-2023 Patient encounter procedure Vonnie Dickerson APRN.[employer] Work Phone: [facility] Comment on above: Chest pressure (Prim michael Dx) Start: 11-27-2023 End: 11-27-2023 Emergency department patient visit No Primary Care Physician Facility:[facility] Start: 11-27-2023 End: 11-27-2023 ambulatory Facility:[facility] Procedures Date Procedure Procedure Detail Performing [...] Activity Detail Author Start: 11-01-2024 Patient discharge [facility] Start: 10-31-2024 [facility] Start: 10-31-2024 Application of intermittent pneumatic compression device [facility] Start: 10-31-2024 Following clinical pathway protocol [facility] Start: 10-31-2024 Aspiration precautions [facility] Start: 10-31-2024 Cardiac monitoring [facility] Start: 10-31-2024 Catheterization of vein [facility] Start: 10-31-2024 Consultation [facility] Start: 10-31-2024 Elevation of head of bed [facility] Start: 10-31-2024 Exercises [facility] Start: 10-31-2024 Notification of physician [facility] Start: 10-31-2024 Oxygen therapy [facility] Start: 10-31-2024 End: 10-31-2024 Patient referral to dietitian [facility] Start: 10-31-2024 Referral to occupational therapist [facility] Start: 10-31-2024 Referral to service [facility] Start: 10-31-2024 Speech therapy assessment [facility] Start: 10-31-2024 Telemedicine consultation with patient [facility] Start: 10-31-2024 Tobacco use cessation education [facility] Start: 10-31-2024 End: 10-31-2024 [facility] Start: 10-31-2024 Vital signs measurements [facility] Start: 10-30-2024 MRI of brain without contrast Brain without Contrast [facility] Start: 10-30-2024 Hospital admission, emergency, from emergency room, medical nature [facility] Start: 10-30-2024 Admission procedure [facility] Start: 10-30-2024 Thyroid stimulating hormone measurement [facility] Start: 10-30-2024 Oxygen therapy [facility] Start: 10-30-2024 [facility] Start: 12-03-2023 Influenza vaccination Influenza Vaccine (#1) [facility] Start: 2023 Screening for malignant neoplasm of breast Mammogram Screening [facility] Start: 12-02-2022 Covid-19 Vaccine ( season) Covid-19 Vaccine ( season) [facility] Start: 07-23-2021 Screening for malignant neoplasm of cervix Cervical Cancer Screening [facility] Start: 04-09-2020 Annual PCP Team Chronic Disease Visit Annual PCP Team Chronic Disease Visit [facility] Start: 10-10-2002 Hepatitis B Vaccine (1 of 3 - 19+ 3-dose series) Hepatitis B Vaccine (1 of 3 - 19+ 3-dose series) [facility] Start: 10-10-2002 Urine microalbumin profile DTaP,Tdap,Td Vaccine (1 - Tdap) [facility] Start: 10-10-2001 Anxiety Screening Anxiety Screening [facility] Start: 10-10-2001 BP Controlled (<130/80) BP Controlled (<130/80) [facility] Start: 10-10-2001 Depression Screening Depression Screening [facility] Start: 10-10-2001 Hepatitis C screening Hepatitis C Screening [facility] Start: 10-10-2001 HIV screening HIV Screening [facility] Amphetamines [Presen ce] in Urine by Screen method >1000 ng/mL [facility] Anion gap in Serum o r Plasma [facility] Benzodiazepine measurement, urine [facility] BUN/Creatinine ratio [facility] Calcium [Mass/volume ] in Serum or Plasma [facility] Carbon dioxide, tota l [Moles/volume] in Central venous blood [facility] Cardiac event recording [facility] Cocaine measurement, urine [facility] Creatinine [Mass/vol ume] in Serum or Plasma [facility] fentaNYL [Presence] in Urine by Screen method [facility] Folate [Moles/volume ] in Serum or Plasma [facility] Glucose [Mass/volume ] in Serum or Plasma [facility] JAK2 gene p.Yer859Ti e [Presence] in Blood or Tissue by Molecular genetics method [facility] Measurement of renal function [facility] Methadone measuremen t, urine [facility] Patient Education Discharge Inst ructions for Stroke [facility] Work Phone: Phencyclidine [Prese nce] in Urine [facility] Potassium measurement [facility] Serum chloride measurement [facility] Sodium measurement [facility] Troponin T.cardiac [Mass/volume] in Serum or Plasma by High sensitivity method [facility] Urea nitrogen [Mass/volume] in Serum or Plasma [facility] Urine cannabinoid measurement [facility] Urine opiate measurement [facility] Payers Date Payer Category Payer Self-pay [id number] 2023 Unknown [id number] 2013 Medicaid [id number] [id number] 2013 Unknown [id number] Unknown [id number] 2.16.8 [id number] Unknown [id number] 2.16.8 [id number] Unknown [id number] 2.16.8 [id number] Unknown [id number] 2.16.8 [id number] Unknown [id number] 2.16.8 [id number] Unknown [id number] 2.16.8 [id number] Unknown [id number] 2.16.8 [id number] Unknown [id number] 2.16.8 [id number] Unknown [id number] 2.16.8 [id number] Unknown [id number] 2.16.8 [id number] Social History Date Type Detail Facility Start: 02-18-2019 Tobacco smoking stat us LAIS Ex-smoker [facility] Start: 01-02-2011 End: 01-03-2016 History of tobacco use Current smoker [facility] Start: 01-02-2011 End: 01-03-2016 History of tobacco use Cigarette Smoker [facility] Start: 02-18-2019 End: 03-11-2020 Cigarettes smoked current (pack per day) - Reported 0.5 [facility] Start: 02-18-2019 Tobacco use and exposure Smokeless tobacco non-user [facility] Start: 05-15-2020 Alcoholic beverage intake Current drinker of alcohol (finding) [facility] Start: 03-11-2020 End: 05-15-2020 Tobacco use panel [facility] National Score (1-10 0), lower number is lower risk Not on file [facility] Start: 1985 Sex assigned at Not on file [facility] Start: 11-27-2023 Tobacco smoking stat us LAIS Never smoked tobacco (finding) [facility] Start: 1985 Sex Assigned At Female [facility] Start: 10-30-2024 End: 11-01-2024 Tobacco smoking status NHIS Smokes tobacco daily (finding) [facility] Start: 11-01-2024 Tobacco Use Tobacco Use [facility] Goals Date Patient Goal Desired Activity /State Functional Status Date Assessment Result Facility 11-01-2024 Functional status Stand and pivot [facility] Work Phone: Mental Status Date Assessment Result Facility 11-01-2024 Cognitive function Voice/Name [facility] Work Phone: 10-30-2024 Cognitive function Awake;Alert;A ppropriate;Fol lows Commands [facility] Work Phone: Clinical Notes 11-27-2023 to 11-01-2024 Note Date & Type Note Facility 11-01-2024 Note [facility] Medical Records Department [address] [place] [address] History Physical Exam 11/01/24 1617 MR#: [id number] Acct: [id number] Name: JAYDA OSHEA Rep #: [id number] : 1985 39 From: Luis Ravi MD PCP: Care Physician,No Primary Status:ADM IN Location: [place] [address] HPI - General General Date of Admission: 11/01/24 Date of Service: 11/01/24 Chief Complaint: Here for 3 hours daily rehabilitation. HPI Narrative JAYDA OSHEA, is a 39 Female who presents with followin10/30/2024 [facility] ED stroke alert. Sudden left arm weakness, [...] for migraine headache, headache improved. 10/30/[address] [facility]. MRI brain, Echo, Aspirin, Statin for stroke. [...] strengthening, prior to disposition determination. [facility] Medical History (Updated 11/01/24 @ 16:38 by [...] CVA/Stroke: Yes Hx of CVA/Stroke: No Modified [place] Score MRS Score at time of Evaluation: 4-Moderate/severe disability NIHSS NIHSS 1a. L (more content not included)... [facility] 11-01-2024 Discharge summary [facility] 11-01-2024 Note [facility] Medical Records Department [address] [place] [address] Discharge Summary 11/01/24 1430 MR#: [id number] Acct: [id number] Name: DAYOJAYDA Murdock Maritza Rep #: [id number] : 1985 39 From: Vee Stuart MD PCP: Care Physician,No Primary Status:DIS IN Location: [facility] [id number] Providers Date of Admission: 10/30/24 Date of [...] neurology, ADHD, tobacco use, untreated hypertension presented [facility] ED 10/30/2024 due to acute left-sided [...] to see patient (more content not included)... [facility] 10-31-2024 Consult note Note Date/Time October 31, 2024 1:03pm [facility] Medical Records Department [address] [place] [address] Consultation - Neurology 10/31/24 1253 MR#: [id number] Acct: [id number] Name: JAYDA OSHEA Rep #:[id number] : 1985 39 From: Tong Rai MD PCP: Care Physician,No Primary Status :ADM IN Location: [place] [address] Assessment and Plan: Stroke Assessment/Plan JAYDA OSHEA [...] given her subtle exam fluctuations. 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 If her [...] episodes of excessive daytime somnolence. [facility] Medical History (Updated 10/31/24 @ 00:55 by [...] 79.3 H, Lymph % (Auto) 15.0 L, Toombs % (Auto) 4.2, Eos % (Auto) 0.4, [...] 9:01 pm EST on 10/30/24. Reading Location: [facility] Head/Neck CTA 10/30/24 20:52 IMPRESSION: No acute large vessel occlusion. No high grade stenosis. Reading Location: [facility] Chest X-Ray 10/30/24 21:41 IMPRESSION: No acute cardiopulmonary disease. Reading Location: [facility] Brain MRI 10/31/24 06:00 IMPRESSION: There is [...] Thai at the time ofdictation. Reading [facility] Active Medications Active Medications Active Medications: Current [...] 10/31/24 09:56 IV 10/31/24 14:02 70 mls/hr .[id number] MARIN Infusion Labetalol HCl 10 - 20 [...] and with change in RN caregiver. Freq: [id number] Protocol: Activity Type Activity Date Activity User E-sign Co-sign Detail Recorded Client Recorded Date Recorded By Document 10/31/24 10:00 TERESA [id number] 10/31/24 10:07 TERESA 10/31/24 10:00 NIH Stroke [...] 0 - Absent 8. Sensory: 1 - Yeth-ue-szusebqj sensory loss; 9. Best Language: 0 - No aphasia; normal 10. Dysarthria: 1 = Hsht-sl-ntebhtqc dysarthria; 11. Extinction and Inattention: 0 - No abnormality Total: 10 10/31/24 1303 <Electronically signed by Tong Rai MD> Cosigner Signature (if applicable): CC: No Primary Care Physician~ Signed [facility] Work Phone: 1(685) 794-736607-31-2025 Consult note [facility] Medical Records Department [address] [place] [address] Consultation - Neurology 10/31/24 1253 MR#: [id number] Acct: [id number] Name: JAYDA OSHEA Rep #:[id number] : 1985 39 From: Tong Rai MD PCP: Care Physician,No Primary Status :ADM IN Location: [place] [address] Assessment and Plan: Stroke Assessment/Plan JAYDA OSHEA [...] given her subtle exam fluctuations. 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 If her [...] episodes of excessive daytime somnolence. [facility] Medical History (Updated 10/31/24 @ 00:55 by [...] 79.3 H, Lymph % (Auto) 15.0 L, Toombs % (Auto) 4.2, Eos % (Auto) 0.4, [...] 209 H, LDL Cholesterol, Calc 108, VLDL Kqfsaxcqbly78, HDL Cholesterol 61, Cholesterol/HDL Ratio 3.43, Vitamin B12 484 Imaging Radiology Impression Brain CT 10/30/24 20:46 IMPRESSION: Left frontal lobe periventricular white matter focal hypodensity measuring approximally 7 x 7 mm, which may reflect a lacunar infarction however acute infarction is not entirely excluded. Dr. Silva was notified by Jeanette De Jesus at 9:01 pm EST on 10/30/24. Reading Location: [facility] Head/Neck CTA 10/30/24 20:52 IMPRESSION: No acute large vessel occlusion. No high grade stenosis. Reading Location: [facility] Chest X-Ray 10/30/24 21:41 IMPRESSION: No acute cardiopulmonary disease. Reading Location: [facility] Brain MRI 10/31/24 06:00 IMPRESSION: There is [...] Thai at the time ofdictation. Reading [facility] Active Medications Active Medications Active [...] 10/31/24 09:56 IV 10/31/24 14:02 70 mls/hr .[id number] MARIN Infusion Labetalol HCl 10 - 20 [...] and with change in RN caregiver. Freq: [id number] Protocol: Activity Type Activity Date Activity User E-sign Co-sign Detail Recorded Client Recorded Date Recorded By Document 10/31/24 10:00 [facility] [id number] 10/31/24 10:07 [facility] 10/31/24 10:00 NIH Stroke Scale [NIHSS] [...] 0 - Absent 8. Sensory: 1 - Rvxk-js-xwykpxre sensory loss; 9. Best Language: 0 - No aphasia; normal 10. Dysarthria: 1 = Nvoi-rw-ilkiylyj dysarthria; 11. Extinction and Inattention: 0 - No abnormality Total: 10 10/31/24 1303 Cosigner Signature (if applicable): CC: No Primary Care Physician~ Signed [facility]07-31-2025 Progress note Author Sen Clarke [facility] Note Date/Time October 31, 2024 9:46 am [facility] Medical Records Department [address] [place] [address] Progress Note - Hospitalist 10/31/2438 MR#: [id number] Acct: [id number] Name: JAYDA OSHEA Rep #:[id number] : 1985 39 From: Sen sherwood MD PCP: Care Physician,No Primary Status :ADM IN Location: [place] [address] Subjective Subjective Still having a migraine, and [...] 79.3 H, Lymph % (Auto) 15.0 L, Toombs % (Auto) 4.2, Eos % (Auto) 0.4, [...] 9:01 pm EST on 10/30/24. Reading Location: [facility] Head/Neck CTA 10/30/24 20:52 IMPRESSION: No acute large vessel occlusion. No high grade stenosis. Reading Location: [facility] Chest X-Ray 10/30/24 21:41 IMPRESSION: No acute cardiopulmonary disease. Reading Location: [facility] Physical Exam Narrative General: Alert, Oriented x3, [...] DVT: SCDs Charges/Coding Visit Charges Inpatient E&M: 25139 Subs Hosp L2 NIHSS NIHSS Nursing Documentation NIHSS Nursing Documentation: NIHSS: Ischemic Stroke/TIA Start: 10/31/24 01:12 Text: For PCU Patients: NIH and Neuro Check every 4 Status: Active hours, PRN and with change in RN caregiver. Freq: [id number] Protocol: Activity Type Activity Date Activity User E-sign Co-sign Detail Recorded Client Recorded Date Recorded By Document 10/31/24 06:00 RPS [id number] 10/31/24 06:25 RPS 10/31/24 06:00 NIH Stroke [...] Cosigner Signature (if applicable): CC: ~ Signed [facility] Work Phone: 1(140) 717-501907-31-2025 Progress note [facility] Medical Records Department [address] [place] [address] Progress Note - Hospitalist 10/31/24937 MR#: [id number] Acct: [id number] Name: JAYDA OSHEA Rep #:[id number] : 1985 39 From: Sen sherwood MD PCP: Care Physician,No Primary Status :ADM IN Location: [facility] [id number] Subjective Subjective Still having a migraine, [...] 79.3 H, Lymph % (Auto) 15.0 L, Toombs % (Auto) 4.2, Eos % (Auto) 0.4, [...] 209 H, LDL Cholesterol, Calc 108, VLDL Qyjixccfbwg24, HDL Cholesterol 61, Cholesterol/HDL Ratio 3.43, Vitamin B12 484 Radiography Diagnostic Testing: Radiology Impression Brain CT 10/30/24 20:46 IMPRESSION: Left frontal lobe periventricular white matter focal hypodensity measuring approximally 7 x 7 mm, which may reflect a lacunar infarction however acute infarction is not entirely excluded. Dr. Silva was notified by Jeanette De Jesus at 9:01 pm EST on 10/30/24. Reading Location: [facility] Head/Neck CTA 10/30/24 20:52 IMPRESSION: No acute large vessel occlusion. No high grade stenosis. Reading Location: [facility] Chest X-Ray 10/30/24 21:41 IMPRESSION: No acute cardiopulmonary disease. Reading Location: [facility] Physical Exam Narrative General: Alert, Oriented x3, [...] DVT: SCDs Charges/Coding Visit Charges Inpatient E&M: 49754 Subs Hosp L2 NIHSS NIHSS Nursing Documentation NIHSS Nursing Documentation: NIHSS: Ischemic Stroke/TIA Start: 10/31/24 01:12 Text: For PCU Patients: NIH and Neuro Check every 4 Status: Active hours, PRN and with change in RN caregiver. Freq: [id number] Protocol: Activity Type Activity Date Activity User E-sign Co-sign Detail Recorded Client Recorded Date Recorded By Document 10/31/24 06:00 [facility] [id number] 10/31/24 06:25 [facility] 10/31/24 06:00 NIH Stroke Scale [NIHSS] [...] Cosigner Signature (if applicable): CC: ~ Signed [facility]07-31-2025 History and physical note Author Nehemiah Medrano [facility] Note Date/Time October 31, 2024 6:31 am [facility] Medical Records Department [address] [place] [address] H&P Exam - Hospitalist 10/30/24 2323 MR#: [id number] Acct: [id number] Name: JAYDA OSHEA Rep #:[id number] : 1985 39 From: Nehemiah Cordova DO PCP: Care Physician,No Primary Status :ADM IN Location: [place] [address] HPI - General General Date of Admission: [...] seasonal allergies; on loratadine who presents to [facility] ER complaining of acute Left-sided weakness [...] to extend beyond 2 midnights. [facility] Medical History (Updated 10/31/24 @ 00:55 by [...] 79.3 H, Lymph % (Auto) 15.0 L, Toombs % (Auto) 4.2, Eos % (Auto) 0.4, [...] 9:01 pm EST on 10/30/24. Reading Location: [facility] Head/Neck CTA 10/30/24 20:52 IMPRESSION: No acute large vessel occlusion. No high grade stenosis. Reading Location: [facility] Chest X-Ray 10/30/24 21:41 IMPRESSION: No acute cardiopulmonary disease. Reading Location: [facility] Assessment & Plan Assessment/Plan (1) Ischemic cerebrovascular [...] artery vasospasm. Give acetaminophen as needed for xrte-da-dxhzaarj (level 1-5/10) pain or fever. Givemorphine IV [...] 75 minutes. Charges/Coding Visit Charges Inpatient E&M: 81553 Init Hosp L3 10/31/24 0631 <Electronically signed by Neheimah Haney DO> Cosigner Signature (if applicable): CC: Dr. Nehemiah Haney DO; No Primary Care Physician~ Signed [facility] Work Phone: 1(154) 813-574807-31-2025 History and physical note [facility] Medical Records Department [address] [place] [address] H&P Exam - Hospitalist 10/30/24 2323 MR#: [id number] Acct: [id number] Name: JAYDA OSHEA Rep #:[id number] : 1985 39 From: Nehemiah Cordova DO PCP: Care Physician,No Primary Status :ADM IN Location: [address] HPI - General General Date [...] seasonal allergies; on loratadine who presents to [facility] ER complaining of acute Left-sided weakness [...] to extend beyond 2 midnights. [facility] Medical History (Updated 10/31/24 @ 00:55 by [...] 79.3 H, Lymph % (Auto) 15.0 L, Toombs % (Auto) 4.2, Eos % (Auto) 0.4, [...] 9:01 pm EST on 10/30/24. Reading Location: [facility] Head/Neck CTA 10/30/24 20:52 IMPRESSION: No acute large vessel occlusion. No high grade stenosis. Reading Location: [facility] Chest X-Ray 10/30/24 21:41 IMPRESSION: No acute cardiopulmonary disease. Reading Location: [facility] Assessment & Plan Assessment/Plan (1) Ischemic cerebrovascular [...] artery vasospasm. Give acetaminophen as needed for zljc-re-zuwiuvkz (level 1-5/10) pain or fever. Givemorphine IV [...] 75 minutes. Charges/Coding Visit Charges Inpatient E&M: 04824 Init Hosp L3 10/31/24 0631 Cosigner Signature (if applicable): CC: Dr. Nehemiah Haney, ; No Primary Care Physician~ Signed [facility]07-31-2025 Discharge summary Author Domenico Silva [facility] Note Date/Time October 31, 2024 1:01 am [facility] Medical Records Department [address] [place] [address] Emergency Department Summary 10/30/24 MR#: [id number] Acct: [id number] Name: JAYDA OSHEA Rep #:[id number] : 1985 39 From: Domenico Poon PCP: Care Physician,No Primary Status :ADM IN Location: [address] History of Present Illness Chief Complaint: Stroke Alert Informant: patient and EMS Onset/Context/Timing Onset: Today Context: Sudden Onset Timing: Continuous Quality and Location: Positive for Left Arm Weakness and Left Leg Weakness Onset: Last known well was 1530 today (approximately 5 hours and 15 minutes 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 Patient denies any fevers or chills. [facility] Medical History (Updated 10/31/24 @ 00:54 by [...] called. [facility] Patient had a left upper and [...] 79.3 H Lymph % (Auto) 15.0 L Toombs % (Auto) 4.2 Eos % (Auto) 0.4 [...] 9:01 pm EST on 10/30/24. Reading Location: [facility] Head/Neck CTA 10/30/24 20:52 IMPRESSION: No acute large vessel occlusion. No high grade stenosis. Reading Location: [facility] Chest X-Ray 10/30/24 21:41 IMPRESSION: No acute cardiopulmonary disease. Reading Location: [facility] CT scan of the brain was obtained. [...] sinus rhythm with a rate of 73. HI interval, QRS interval, and QTc intervals were all normal. Griffith was normal. There are no acute ST or T wave changes. Prior EKG tracings: available for review Prior: Unchanged (11/27/2023) Management Discussion w/another healthcare provider: Hospitalist, Construction Recruiter (Stroke neurologist [facility]) and Radiologist Treatment and Re-Evaluation Narrative: [...] (36), Including time spent:, Discussing w/Patient &/or Family/Stationary Engineer, Discussing w/Consultants, Arranging Admission or Transfer and Performing Direct Patient Care at Bedside Discharge Plan Dx/Rx/DC Orders Clinical Impression: Acute left-sided weakness, Hypertension, Migraine headache, Overweight (BMI 25.0-29.9), Polycythemia Disposition Disposition: Acute Care Hospital [facility] Discharge Date/Time: 10/31/24 00:35 NIHSS NIHSS 1a. [...] your Primary Care Provider. Call [facility] ([phone]) or report to the closest Emergency Room. Call 911 if necessary. 10/31/24 0101 <Electronically signed by Domenico Silva DO> Cosigner Signature (if applicable): CC: No Primary Care Physician ~ Signed [facility] Work Phone: 1(209) 234-333507-31-2025 Discharge summary [facility] Medical Records Department [address] [place] [address] Emergency Department Summary 10/30/24 MR#: [id number] Acct: [id number] Name: JAYDA OSHEA Rep #:[id number] : 1985 39 From: Domenico Poon PCP: Care Physician,No Primary Status :ADM IN Location: [address] History of Present Illness Chief Complaint: Stroke Alert Informant: patient and EMS Onset/Context/Timing Onset: Today Context: Sudden Onset Timing: Continuous Quality and Location: Positive for Left Arm Weakness and Left Leg Weakness Onset: Last known well was 1530 today (approximately 5 hours and 15 minutes 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 Patient denies any fevers or chills. [facility] Medical History (Updated 10/31/24 @ 00:54 by [...] oriented x3 and CN's II-XII intact bilaterally [place] Coma Scale: document GCS findings Spontaneous Obeys Commands Oriented 15 Sensorium / Orientation: alert Speech: speech normal MDM MDM MDM Narrative Medical decision making narrative: Prehospital stroke alert was called. Upon arrival, patient was evaluated in [facility]. Patient had a left upper and lower [...] 79.3 H Lymph % (Auto) 15.0 L Toombs % (Auto) 4.2 Eos % (Auto) 0.4 [...] 9:01 pm EST on 10/30/24. Reading Location: [facility] Head/Neck CTA 10/30/24 20:52 IMPRESSION: No acute large vessel occlusion. No high grade stenosis. Reading Location: [facility] Chest X-Ray 10/30/24 21:41 IMPRESSION: No acute cardiopulmonary disease. Reading Location: [facility] CT scan of the brain was obtained. [...] anormal sinus rhythm with arate of 73. HI interval, QRS interval, and QTc intervals were all normal. Griffith was normal. There are no acute ST or T wave changes. Prior EKG tracings: available for review Prior: Unchanged (11/27/2023) Management Discussion w/another healthcare provider: Hospitalist, Construction Recruiter (Stroke neurologist [facility]) and Radiologist Treatment and Re-Evaluation Narrative: [...] (36), Including time spent:, Discussing w/Patient &/or Family/Stationary Engineer, Discussing w/Consultants, Arranging Admission or Transfer and Performing Direct Patient Care at Bedside Discharge Plan Dx/Rx/DC Orders Clinical Impression: Acute left-sided weakness, Hypertension, Migraine headache, Overweight (BMI 25.0-29.9), Polycythemia Disposition Disposition: Acute Care Hospital [facility] Discharge Date/Time: 10/31/24 00:35 NIHSS NIHSS 1a. [...] your Primary Care Provider. Call [facility] ([phone]) or report tothe closest Emergency Room. Call 911 if necessary. 10/31/24100 Cosigner Signature (if applicable): CC: No Primary Care Physician ~ Signed [facility]07-30-2025 Radiology Diagnostic study note [facility] Imaging Services [address] [place] [address] Chest 1 View MR#: [id number] Acct: [id number] Name: JAYDA OSHEA Rep #: [id number] : 1985 F 39 From: Lyndon Hammond MD PCP: Care Physician,No Primary Status: REG ER Study:Chest 1 View Date of Exam: 5 Exam# [id number] Ordering Dr: Domenico Silva DO PROCEDURE: CHEST 1 VIEW 10/30/2024 REASON FOR EXAM: NEURO DEFICIT, ACUTE, STROKE SUSPECTED TECHNIQUE: Frontal view of the chest. COMPARISON: 11/27/2023 FINDINGS: Lungs/Pleura: Clear. Heart/Mediastinum: Normal in size. Bones/Soft tissues: Within normal limits. RAD/Chest 1 View IMPRESSION: No acute cardiopulmonary disease. Reading Location: [facility] CC: Dr. Domenico Silva DO; No Primary Care Physician ~ Busser: Signed [facility]07-30-2025 Radiology Diagnostic study note [facility] Imaging Services [address] [place] [address] STROKE CTA Head AND Neck W/Con MR#: [id number] Acct: [id number] Name: JAYDA OSHEA Rep #: [id number] : 1985 F 39 From: Taylor De Jesus MD PCP: Care Physician,No Primary Status: REG ER Study:STROKE CTA Head AND Neck W/Con Date of Exam: 10/30/24 Exam# [id number] Ordering Dr: Domenico Silva DO PROCEDURE: STROKE [...] the tip of the basilar. Both proximal SCRATCH BRUSHER segmentsare patent. There isno large vessel occlusion. There is no enhancing intracranial mass. Shotty cervical lymph nodes are identified. The thyroid gland is heterogeneous. The lung apices demonstrate no pneumothorax. No destructive osseous abnormalities identified. CT/STROKE CTA Head AND Neck W/Con IMPRESSION: No acute large vessel occlusion. No high grade stenosis. Reading Location: [facility] CC: Dr. Domenico Silva, ; No Primary Care Physician ~ Busser: Signed [facility]07-30-2025 Radiology Diagnostic study note [facility] Imaging Services [address] [place] [address] STROKE Brain/Head without Cont MR#: [id number] Acct: [id number] Name: JAYDA OSHEA Rep #: [id number] : 1985 F 39 From: Taylor De Jesus MD PCP: Care Physician,No Primary Status: REG ER Study:STROKE Brain/Head without Cont Date of Exam: 10/30/24 Exam# [id number] Ordering Dr: Domenico Silva DO PROCEDURE: STROKE [...] 9:01 pm EST on 10/30/24. Reading Location: [facility] CC: Dr. Domenico Silva DO; No Primary Care Physician ~ Busser: Signed [facility]05-19-2025 Evaluation note* Diagnosis Onset Date Resolution [...] 11:35pm Hypertension chronic October 30, 025 11:35pm [facility] Work Phone: [phone] Evaluation note* Diagnosis Onset Date Resolution Status [...] 11:35pm Hypertension chronic October 30, 025 11:35pm [facility] Work Phone: [phone] NoteHNO ID: [id number] Author: VONNIE DICKERSON APRN.MARY Service: ? Author Type: Nurse Practitioner Type: Progress Notes Filed: 11/27/2023 11:37 Note Text: Patient triaged at [facility]. Here today with sob, left arm pain, elevated bp. Bp 190/110. I will refer to ER. Patient declines squad. Patient in no visible distress at time of triage.[facility]08-26-2024 History of Present illness Narrative* Vonnie Dickerson APRN.CNP - 11/27/2023 11:35 AM EDT Patient triaged at [facility]. Here today with sob, left arm pain, elevated bp. Bp 190/110. I will refer to ER. Patient declines squad. Patient in no visible distress at time of triage. [facility] Author Vee Stuart [facility] Note Date/Time November 01, 2024 2:3 0pm [facility] Medical Records Department [address] [place] [address] Instructions for Home/Discharge Instructions 11/01/24 1422 MR#: [id number] Acct: [id number] Name: JAYDA OSHEA Rep #:[id number] : 1985 39 From: Vee Stuart MD PCP: Care Physician,No Primary Status :ADM IN Discharge Instructions DC O2, CPAP, BIPAP needs Home O2 Discharge instructions: No Dressing / Incision Discharge Activity: - (Discharging to [facility] rehab) Follow Up Care Test Results: Test [...] Recorder Preventi (Urgent) Timeframe: 1 Day Facility: [facility] - Location: Cardiovascular Services Ordered By: [...] Care Physician; Mark Garcias MD ~ Signed [facility] Work Phone: Evaluation note* Diagnosis Chest pressure- Primary Other chest pain documented in this encounter [facility] information available[facility] Work Phone: Hospital Discharge instructionsAdditional Instructions [...] 911 or proceed [facility] the [facility] Work Phone: Reason for referral (narrative)No reason for referral information [facility]Johnson [facility] Work Phone: Summary Purpose Family History No Family History Records FoundNo Family History Records Found Advance Directives No Advanced Directives Records Found Advance Directive Response Recorded Date/ Time Do you have a Healthcare Power of Air Press Operator? No October 30, 2024 9:22pm Advance Directive Response Recorded Date/ Time Do you have a Healthcare Power of Air Press Operator? No October 31, 2024 12:41am Chief Complaint [...] or prosecute any alcohol or drug abuse patient.[facility] Reason for Visit (unrecogniz ed section and content) Reason Comments Shortness of Breath INFORMATION SOURCE (unrecogn ized section and content) DATE CREATED AUTHOR 11/28/2023 [facility] DATE CREATED AUTHOR AUTHOR'S ROHINI ATION [facility] Care Teams (unrecognized sec tion [...] BE BASED ON THE PRIMARY CLINICAL RECORDS. [employer] provides no warranty or guarantee of the accuracy or completeness of information in this document.
[2024-11-04 23:52] LABS: Troponin T High Sens 4 HR 48 ng/L (<=14)
[2024-11-05 04:30] VITALS: BP 158/87; PULSE 101; RESP 16; TEMP 36.2; O2SAT 96
--- NOTE | 2024-11-05 06:00 | US_ITS ---
PROCEDURE: ABDOMEN COMPLETE 11/05/2024 REASON FOR EXAM: PV EVAL FOR HEPATOSPLENOMEGALY AND RENAL TUMOR TECHNIQUE: ABDOMEN COMPLETE COMPARISON: None. FINDINGS: The examination is somewhat limited due to patient's difficulty in positioning. Liver: The liver is not enlarged, measured at 14.1 cm in length. Normal hepatic echogenicity is seen. No evidence of intrahepatic biliary ductal dilation. The main portal vein demonstrates hepatopetal flow. Gallbladder: No stones, sludge, wall thickening or tenderness. Common bile duct: Normal measuring 5.8 mm diameter. Pancreas: Normal Kidneys: Limited visualization of the left kidney is seen due to the presence of overlying bowel. No renal mass is seen in visualized areas, bilaterally. The right kidney measures 10.6 x 4.6 x 5.3 cm. The right renal cortex is measured at 12 mm, the left also at 12 mm in thickness. The left kidney measures 11.7 x 3.9 x 4.8 cm. Renal parenchymal thicknesses and echotextures are preserved. No hydronephrosis. Spleen: Normal in size and echotexture measuring 10.5 x 3.2 x 2.3 cm. Aorta: Visualized abdominal aorta is of normal size. IVC: Visualized inferior vena cava is unremarkable. Peritoneal Findings: No ascites identified. US/Abdomen Complete IMPRESSION: 1. Limited visualization of the left kidney but no renal mass is seen on either side. 2. No evidence of hepatomegaly or splenomegaly. No focal hepatic process is no ro. Reading Location: [place] [address]
[2024-11-05 06:52] LABS: Hematocrit 52.8 % (37-47); Hemoglobin 17.5 g/dL (12.0-15.0); Mean Corp Hgb Conc 33.1 g/dL (32-36); Mean Corpuscular Volume 90.3 fL (81-99); Mean Platelet Vol. 10.3 fl (6.2-12.0); Platelet Count 342 K/mm3 (150-450); RBC Distribution Width CV 12.1 % (11.6-14.6); RBC Distribution Width SD 40.9 fl (35.1-43.9); Red Blood Count 5.85 M/mm3 (4.2-5.4); White Blood Count 12.9 K/mm3 (4.4-11.0)
[2024-11-05] MEDS: prednisoLONE eye drops (5 mL) 1 DROP OPTH.BTL 1 DRP OPHTHALMIC ×3 (08:59→18:02)
[2024-11-05 09:00] VITALS: BP 138/95; BP 174/97; PULSE 75; RESP 16; TEMP 37.2; O2SAT 99
--- NOTE | 2024-11-05 11:17 | PN.HOSP_ITS ---
Reason for Visit Chief Complaint: Chest pain Subjective Subjective Patient is a 39-year-old lady with recent CVA with significant left-sided deficit who presented with chest pain Objective Data Objective Data Vital Signs: Vital Signs Temp Pulse Resp BP Pulse Ox O2 Del Method 98.9 F 75 16 174/97 H 99 Room Air 11/05/24 09:00 11/05/24 09:00 11/05/24 09:00 11/05/24 09:00 11/05/24 09:00 11/05/24 09:00 Oxygen Delivery Method Room Air Weight: 76.839 kg Body Mass Index (BMI) 29.0 Intake & Output: Intake and Output for Last 24 Hours 11/03/24 11/04/24 11/05/24 23:59 23:59 23:59 Intake Total 500 / 500 Output Total 1700 / 2300 950 / 950 Balance -1700 / -1900 -450 / -450 Lab / Micro Data 11/05/24 06:05 Labs: Laboratory Results - last 24 hr 11/04/24 12:30: APTT 27.0, Troponin T Hi Sens 2 Hr 31 H, Urine Test Negative 11/04/24 22:44: Troponin T Hi Sens 4Hr 48 H 11/05/24 06:05: WBC 12.9 H, RBC 5.85 H, Hgb 17.5 H, Hct 52.8 H, MCV 90.3, MCH 29.9, MCHC 33.1, RDW Std Deviation 40.9, RDW Coeff of Maria Teresa 12.1, Plt Count 342, MPV 10.3 Radiography Diagnostic Testing: Radiology Impression Abdomen Ultrasound 11/05/24 06:00 IMPRESSION: 1. Limited visualization of the left kidney but no renal mass is seen on either side. 2. No evidence of hepatomegaly or splenomegaly. No focal hepatic process is noted. Reading Location: [place] [address] Physical Exam Narrative GENERAL: cooperative HEENT: Atraumatic; normocephalic EYES; Anicteric, Normal Conjunctiva NECK; supple, normal thyroid, RESPIRATORY: Diminished to auscultation CARDIOVASCULAR: Regular S1 S2, GI: soft, normoactive bowel sounds, : No Renal angle tenderness; EXTREMITIES: No edema, no clubbing, MUSCULOSKELETAL: no muscle wasting NEURO: Awake; left-sided hemiplegia SKIN: No Rash PSYCH; Flat affect Assessment & Plan Assessment/Plan (1) Chest pain: QUALIFIERS: Chest pain type: chest pain due to myocardial ischemia Ischemic chest pain type: unstable angina pectoris Qualified Code(s): I20.0 - Unstable angina PLAN: Plan Patient is a 39-year-old lady with recent CVA with significant left-sided deficit who presented with chest pain 1. Chest pain ? EKG demonstrated inferior lateral ST wave changes patient underwent left heart catheterization which showed normal coronaries and heart function 2.. Recent CVA with residual left-sided deficits ? PT/OT/case management following. Hospitalized from 10/30-11/01 for acute CVA with residual left-sided deficits. Discharged to rehab unit on 11/01. Continue home aspirin and statin.. Patient medically ready to be discharged back to inpatient rehab unit awaiting insurance precertification 3. Erythrocytosis with concern for polycythemia vera ? Heme-onc consulted. Hemoglobin has been high in the 17-19 range since 10/30 along with elevated hematocrit. Given the events above, have concern for symptomatic polycythemia vera. Erythropoietin level pending. Patient was seen in consultation by heme-onc notes and recommendations reviewed 4. Hypertension ? Mildly hypertensive to the 130s to 140s systolic on admit. Continue home lisinopril and hydrochlorothiazide. 5. Tobacco dependence ? Has been without tobacco use since 10/30. No need for nicotine replacement therapy at this time. Discussed cessation on discharge. 6. ADHD ? Hold home Adderall as this could be contributing and contributing factor to her chest pain as well as recent CVA as above. 7. DVT prophylaxis ? Subcu Lovenox Time spent in the patient's overall evaluation,decision-making process, review of diagnostic data, adjustment of management, discussion with other providers, nursing nursing and ancillary staff involved in patient's care documentation, 36 Minutes Charges/Coding Visit Charges Inpatient E&M: 65822 Subs Hosp L2 Date medically ready for discharge: 11/05/24 Reason for DC delay: Precert pending from insurance
--- NOTE | 2024-11-05 11:19 | CASEMGMT ---
Social Work SW spoke w/Nathalie in rehab, pt can return to rehab when ready, but will need a new precert. Pt has not yet had PT/OT so precert cannot be started yet, it has been ordered. SW spoke w/the SW in rehab, Tamra, pt's son Valeriano (Ramiro is 16) father Aaron Warner([phone]) has called her multiple times, not certain how to proceed in regard to Ramiro. As per Aaron, they coparent Ramiro. Aaron has indicated he does not know what is going on w/pt, how long she will be in the hospital, her prognosis. SW spoke w/pt in room in regard to discharge plan. She is agreeable to return to rehab, states will do the work, she wants to walk again. SW asked her about Aaron and Ramiro. Pt states Aaron came in yesterday w/his mother, and pt seemed to think he understood that he needs to step and care for Ramiro. She may be willing to speak w/Aaron later on the phone if needed, though she thought they had a good conversation yesterday and things were clarified. SW spoke w/KATJA in rehab Tamra again, Aaron has since called her and still does not seem to have an understanding of what he needs to do in regard to their son. SW will follow up later this afternoon w/pt and see if she is up for calling Aaron together. SW will continue to follow. MESSI Hamm
--- NOTE | 2024-11-05 14:54 | CT_ITS ---
PROCEDURE: ABDOMEN/PELVIS WITH CONTRAST 11/05/2024 REASON FOR EXAM: POLYCYTHEMIA RULE OUT ABDOMINAL MALIGNANCY TECHNIQUE: ABDOMEN/PELVIS WITH CONTRAST Coronal and Sagittal reconstruction series were provided. CONTRAST: Isovue 370 VOLUME: 100 mL One or more dose reduction techniques were used (e.g., Automated exposure control, adjustment of the mA and/or kV according to patient size, use of iterative reconstruction technique. RADIATION DOSE SUMMARY: CTDlvol: 18.19 mGy DLP: 994.27 mGycm COMPARISON: CT abdomen and pelvis earlier today November 05, 2024. FINDINGS: Lung bases: Clear. Liver: Unremarkable Gallbladder: Unremarkable. Spleen: Unremarkable. Pancreas: Unremarkable. Adrenals: Unremarkable. Kidneys: Unremarkable. No hydronephrosis. No nephrolithiasis. Bladder: The bladder is partially distended and decompressed by Smith catheter. Reproductive Organs: Unremarkable. Bowel: No bowel wall thickening or bowel obstruction. Appendix: No evidence of acute appendicitis. Lymph nodes: No lymphadenopathy. Vasculature: No aneurysm. Peritoneum / Retroperitoneum: No free air or free fluid. Bones: No acute bony findings. CT/Abdomen/Pelvis WITH Contrast IMPRESSION: Unremarkable study with no acute abdominopelvic abnormalities. Reading Location: [facility]
[2024-11-05 15:00] VITALS: BP 153/102; PULSE 95; RESP 18; TEMP 36.7; O2SAT 99
--- NOTE | 2024-11-05 15:07 | CASEMGMT ---
Social Work Pt completed POA for healthcare. LW deferred at this time. SW gave pt the originals and copies, and a copy placed on the chart and put to go to medical records. MESSI Hamm
--- NOTE | 2024-11-05 15:08 | CASEMGMT ---
Addendum entered by Genevieve Barajas 11/05/24 16:28: Social Work SW did get a call back from Aaron in regard to Ramiro, their son. Aaron expressed concerns about how to manage Ramiro, SW offered support. He states Ramiro has stayed w/a friend, and w/a cousin since this has happeneed, and he was okay w/this. Initially he informed SW that Ramiro was staying at home w/a roundhouse worker and this was not appropriate, as the roundhouse worker is only 23 and not equipped to be supervising Ramiro. SW agreed w/Aaron on this. SW reiterated to Aaron that Ramiro is 16 and should not be staying by himself at home however. It is this SW's undertanding that the and pt coparent Ramiro, Aaron states this to be true. SW did also reiterate to Aaron that pt had a stroke and has a long recovery, and when asked how long SW explained we do not know. SW explained cannot give additional information, it is up to the pt what information she wants to share w/Aaron. He states he has tried to text but doesn't know if it is her responding or someone else. SW explained If he wants further information he can come speak w/pt, pt states it is fine for him to come in to see her any time. Aaron does not want to come too often he said. SW did let Aaron know that pt's grandmother Yael had said that she can stay w/Ramiro at his home. As per Aaron, Ramiro does not want to do that, his grandmother smokes in the home. Additionally as per Aaron she may try to overstep. He also states Ramiro does not want to stay w/him as he has another family now with small children, he knows they can be annoying. SW again reiterated that he is going to need to be the decision maker for Ramiro at this time, and let him know that Ramiro can choose the best of the scenarios offered. SW again reiterated that Ramiro should not be staying by himself. SW explained the only thing this SW can do is call Children's Services which seems unnecessary with this many responsible adults available for pt's son. Aaron agreed and does not want Children's Services involved. Aaron also asked about visiting hours and if Ramiro can stay overnight w/pt. SW spoke w/roundhouse supervisor, SW let Aaron know that no, he cannot stay here overnight. We reviewed visiting hours as well. SW again reiterated that the adults need to come together for the well being of Ramiro. Aaron aware this is a difficult situation for a 16 year old, and they need to work together. SW remains available for support to family as needed. MESSI Hamm Original Note: Social Work SW spoke w/pt and mother(w/pt's permission) in room in regard to Aaron and his concerns around parenting Ramiro. Pt does not want Aaron to know information extensively about pt's condition, but he does already know as per pt that she had a stroke and the recovery will be long. Pt does not want to speak w/Aaron but states he is welcome to come visit. As per pt's mother, she is willing to stay w/Ramiro. Ramiro can also stay w/his father, but as per pt he will not want to do that. SW explained will call Aaron back and is going to direct him to speak w/the family to work out the best plan for Ramiro. Pt and pt's mother both state Ramiro is responsible. SW did remind pt and pt's mother that Ramiro is a minor and should not be staying by himself. Pt's mother states, he is 16, and SW again reminded them that he is still a minor. Both state understanding. SW reiterated to pt and mother that they need to work this out amongst themselves, as the only thing this SW can do is call Children's Services. Pt does not want this. SW explained will call Aaron to let him know that they need to work this out within the family. SW called Aaron, message left. KATJA will continue to follow. MESSI Hamm
[2024-11-05 23:00] VITALS: BP 152/83; PULSE 98; RESP 16; TEMP 35.9; O2SAT 97
[2024-11-06] VITALS (8 sets, daily range): BP systolic 129–185; BP diastolic 81–108; PULSE 73–110; RESP 12–18; TEMP 35.8–36.6; O2SAT 93–99
[2024-11-06] MEDS: prednisoLONE eye drops (5 mL) 1 DROP OPTH.BTL 1 DRP OPHTHALMIC ×5 (00:52→22:41)
[2024-11-06] MEDS: Erythromycin Base 1 OPTH.TUBE 1 APPLIC OPHTHALMIC ×2 (00:53→22:42)
--- NOTE | 2024-11-06 05:46 | PCM.HOSP.N ---
Hospitalist Note Patient with significant asymptomatic bout of VT. Resolved. Cardiology made aware. Will obtain a.m. labs including magnesium.
[2024-11-06 07:00] LABS: Hematocrit 52.1 % (37-47); Hemoglobin 17.4 g/dL (12.0-15.0); Immature Granulocytes Count 0.040 X10^3/uL (0.0-0.0); Mean Corp Hgb Conc 33.4 g/dL (32-36); Mean Corpuscular Volume 90.1 fL (81-99); Mean Platelet Vol. 10.3 fl (6.2-12.0); NRBC Flagged by Analyzer 0 % (0-5); Platelet Count 361 K/mm3 (150-450); RBC Distribution Width CV 11.9 % (11.6-14.6); RBC Distribution Width SD 39.6 fl (35.1-43.9); Red Blood Count 5.78 M/mm3 (4.2-5.4); White Blood Count 9.6 K/mm3 (4.4-11.0)
[2024-11-06 07:04] LABS: Magnesium 2.3 mg/dL (1.5-2.2)
--- NOTE | 2024-11-06 07:33 | PCM.PN.CARD ---
Subjective Subjective Patient seen and evaluated Objective Data Vital Signs: Vital Signs Temp Pulse Resp BP Pulse Ox O2 Del Method 96.6 F L 98 16 152/83 H 97 Room Air 11/05/24 23:00 11/05/24 23:00 11/05/24 23:00 11/05/24 23:00 11/05/24 23:00 11/05/24 23:00 Oxygen Delivery Method Room Air Weight: 169 lb 6.416 oz Body Mass Index (BMI) 29.0 Intake & Output: Intake and Output for Last 24 Hours 11/04/24 11/05/24 11/06/24 23:59 23:59 23:59 Intake Total 1100 / 1600 500 / 500 Output Total 1700 / 2300 1750 / 2375 625 / 625 Balance -1700 / -1900 -650 / -775 -125 / -125 Lab / Micro Data 11/06/24 06:16 11/06/24 06:16 Labs: Laboratory Results - last 24 hr 11/06/24 06:16: WBC 9.6, RBC 5.78 H, Hgb 17.4 H, Hct 52.1 H, MCV 90.1, MCH 30.1, MCHC 33.4, RDW Std Deviation 39.6, RDW Coeff of Maria Teresa 11.9, Plt Count 361, MPV 10.3, Immature Gran % (Auto) 0.400, Neut % (Auto) 58.7, Lymph % (Auto) 27.6, Sharkey % (Auto) 10.9 H, Eos % (Auto) 1.7, Baso % (Auto) 0.7, Absolute Neuts (auto) 5.7, Absolute Lymphs (auto) 2.66, Nucleated RBC % 0, Magnesium 2.3 H Cardiology Labs/Tests 11/06/24 06:16: WBC 9.6, RBC 5.78 H, Hgb 17.4 H, Hct 52.1 H, MCV 90.1, MCH 30.1, MCHC 33.4, Plt Count 361, MPV 10.3, Immature Gran % (Auto) 0.400, Neut % (Auto) 58.7, Lymph % (Auto) 27.6, Sharkey % (Auto) 10.9 H, Eos % (Auto) 1.7, Baso % (Auto) 0.7, Absolute Neuts (auto) 5.7, Nucleated RBC % 0, Magnesium 2.3 H Rhythm: EKG: ECHO: Stress Test: Cardiac Cath: PCI: CT Surgery: Holter monitor: EPS: PPM: CXR: Chest CT Scan: Radiography Diagnostic Testing: Radiology Impression Abdomen Ultrasound 11/05/24 06:00 IMPRESSION: 1. Limited visualization of the left kidney but no renal mass is seen on either side. 2. No evidence of hepatomegaly or splenomegaly. No focal hepatic process is noted. [facility]Pelvis CT 11/05/24 14:54 IMPRESSION: Unremarkable study with no acute abdominopelvic abnormalities. Reading Location: [facility] Assessment & Plan Assessment/Plan (1) Chest pain: QUALIFIERS: Chest pain type: chest pain due to myocardial ischemia Ischemic chest pain type: unstable angina pectoris Qualified Code(s): I20.0 - Unstable angina PLAN: She presented with chest discomfort and underwent a cardiac catheterization which revealed normal coronary arteries. Her echocardiogram had previously documented preserved ejection fraction. (2) Essential (primary) hypertension: PLAN: She does have a history of hypertension which does not appear to be very well-controlled. I had recommended an PALOMO inhibitor and a beta-vanita. (3) Ischemic cerebrovascular accident (CVA): PLAN: She does have evidence of previous cerebrovascular accident. We should attempt to keep her blood pressure 130/80. (4) V-tach: PLAN: Patient had an episode of asymptomatic nonsustained ventricular tachycardia. Was not on beta-vanita medication yet. Above started. Will check magnesium and potassium levels.
[2024-11-06 07:42] LABS: Anion Gap 15 (5-15); BUN 17 mg/dL (4-19); BUN/Creat Ratio 29.5 RATIO (10-20); Calcium,Total 9.5 mg/dL (7.6-11.0); Carbon Dioxide 22.2 mmol/L (21.0-32.0); Chloride 101 mmol/L (98-108); Estimated Creatinine Clearance 128.07 ml/min (50-250); Glucose 112 mg/dL (70-99); Potassium 3.9 mmol/L (3.3-5.1)
--- NOTE | 2024-11-06 08:58 | PN.HOSP_ITS ---
Reason for Visit Chief Complaint: Chest pain Subjective Subjective Patient is scheduled to undergo phlebectomy. Had runs of nonsustained VT was seen in consultation by Dr. Eduardo cardiology added beta-blockers. Objective Data Objective Data Vital Signs: Vital Signs Temp Pulse Resp BP Pulse Ox O2 Del Method 98 F 98 12 166/98 H 97 Room Air 11/06/24 08:24 11/06/24 08:28 11/06/24 08:24 11/06/24 08:24 11/06/24 08:24 11/06/24 08:24 Oxygen Delivery Method Room Air Weight: 76.839 kg Body Mass Index (BMI) 29.0 Intake & Output: Intake and Output for Last 24 Hours 11/04/24 11/05/24 11/06/24 23:59 23:59 23:59 Intake Total 1100 / 1600 1000 / 1000 Output Total 1700 / 2300 1750 / 2375 1025 / 1025 Balance -1700 / -1900 -650 / -775 -25 / -25 Lab / Micro Data 11/06/24 06:16 11/06/24 06:16 Labs: Laboratory Results - last 24 hr 11/06/24 06:16: WBC 9.6, RBC 5.78 H, Hgb 17.4 H, Hct 52.1 H, MCV 90.1, MCH 30.1, MCHC 33.4, RDW Std Deviation 39.6, RDW Coeff of Maria Teresa 11.9, Plt Count 361, MPV 10.3, Immature Gran % (Auto) 0.400, Neut % (Auto) 58.7, Lymph % (Auto) 27.6, [place] % (Auto) 10.9 H, Eos % (Auto) 1.7, Baso % (Auto) 0.7, Absolute Neuts (auto) 5.7, Absolute Lymphs (auto) 2.66, Nucleated RBC % 0, Sodium 138, Potassium 3.9, Chloride 101, Carbon Dioxide 22.2, Anion Gap 15, BUN 17, Creatinine 0.58 L, Estim Creat Clear Calc 128.07, Est GFR (MDRD) Non-Af 117, BUN/Creatinine Ratio 29.5 H, Glucose 112 H, Calcium 9.5, Magnesium 2.3 H Radiography Diagnostic Testing: Radiology Impression Abdomen/Pelvis CT 11/05/24 14:54 IMPRESSION: Unremarkable study with no acute abdominopelvic abnormalities. Reading Location: [facility] Physical Exam Narrative GENERAL: cooperative HEENT: Atraumatic; normocephalic EYES; Anicteric, Normal Conjunctiva NECK; supple, normal thyroid, RESPIRATORY: Diminished to auscultation CARDIOVASCULAR: Regular S1 S2, GI: soft, normoactive bowel sounds, : No Renal angle tenderness; EXTREMITIES: No edema, no clubbing, MUSCULOSKELETAL: no muscle wasting NEURO: Awake; left-sided hemiplegia SKIN: No Rash PSYCH; Flat affect Assessment & Plan Assessment/Plan (1) Chest pain: QUALIFIERS: Chest pain type: chest pain due to myocardial ischemia Ischemic chest pain type: unstable angina pectoris Qualified Code(s): I20.0 - Unstable angina PLAN: Plan Patient is a 39-year-old lady with recent CVA with significant left-sided deficit who presented with chest pain 1. Chest pain ? EKG demonstrated inferior lateral ST wave changes patient underwent left heart catheterization which showed normal coronaries and heart function 2.. Recent CVA with residual left-sided deficits ? PT/OT/case management following. Hospitalized from 10/30-11/01 for acute CVA with residual left-sided deficits. Discharged to rehab unit on 11/01. Continue home aspirin and statin.. Patient medically ready to be discharged back to inpatient rehab unit awaiting insurance precertification 3. Erythrocytosis with concern for polycythemia vera ? Heme-onc consulted. Hemoglobin has been high in the 17-19 range since 10/30 along with elevated hematocrit. Given the events above, have concern for symptomatic polycythemia vera. Erythropoietin level pending. Patient was seen in consultation by heme-onc notes and recommendations reviewed ? 11/06/2024. Scheduled to undergo phlebectomy 4. Hypertension ? Mildly hypertensive to the 130s to 140s systolic on admit. Continue home lisinopril and hydrochlorothiazide. 5. Tobacco dependence ? Has been without tobacco use since 10/30. No need for nicotine replacement therapy at this time. Discussed cessation on discharge. 6. ADHD ? Hold home Adderall as this could be contributing and contributing factor to her chest pain as well as recent CVA as above. 7. DVT prophylaxis ? Subcu Lovenox 8. Nonsustained VT ? Had runs of nonsustained VT was seen in consultation by Dr. Eduardo cardiology added beta-blockers. Time spent in the patient's overall evaluation,decision-making process, review of diagnostic data, adjustment of management, discussion with other providers, nursing nursing and ancillary staff involved in patient's care documentation, 35 Minutes Charges/Coding Visit Charges Inpatient E&M: 01103 Subs Hosp L2 Date medically ready for discharge: 11/05/24 Reason for DC delay: Precert pending from insurance
--- NOTE | 2024-11-06 14:19 | CASEMGMT ---
Social Work SW spoke with Nathalie in [facility]. Pt to have procedure today and tomorrow and may be ready for discharge tomorrow after procedure. [facility] will need to get a new precert prior to readmission to [facility]. SATYA Rogers
--- NOTE | 2024-11-06 15:04 | NURSING ---
phlebotomy started at 1430 by infusion nurse ended at 1445 300cc removed rt ac 20g needle
[2024-11-06 17:31] LABS: Hematocrit 51.2 % (37-47); Hemoglobin 17.0 g/dL (12.0-15.0)
[2024-11-06] MEDS: 0.9% Saline Lock 10 ML Syringe IV (22:53)
[2024-11-07] VITALS (7 sets, daily range): BP systolic 131–150; BP diastolic 85–105; PULSE 79–110; RESP 14–18; TEMP 36.4–36.8; O2SAT 95–100
[2024-11-07] MEDS: prednisoLONE eye drops (5 mL) 1 DROP OPTH.BTL 1 DRP OPHTHALMIC ×4 (09:31→21:31)
--- NOTE | 2024-11-07 10:06 | PCM.PN.HOSP ---
Reason for Visit Chief Complaint: Chest pain Subjective Subjective Patient had a second section of phlebotomy this a.m. Repeat H&H ordered for 1 PM this afternoon. Objective Data Objective Data Vital Signs: Vital Signs Temp Pulse Resp BP Pulse Ox O2 Del Method 97.9 F 110 H 18 150/105 H 98 Room Air 11/07/24 09:29 11/07/24 09:31 11/07/24 09:29 11/07/24 09:29 11/07/24 09:29 11/07/24 09:42 Oxygen Delivery Method Room Air Weight: 76.839 kg Body Mass Index (BMI) 29.0 Intake & Output: Intake and Output for Last 24 Hours 11/05/24 11/06/24 11/07/24 23:59 23:59 23:59 Intake Total 1100 / 1600 1950 / 1950 400 / 400 Output Total 1750 / 2375 2975 / 2975 350 / 350 Balance -650 / -775 -1025 / -1025 50 / 50 Lab / Micro Data 11/06/24 17:12 11/06/24 06:16 Labs: Laboratory Results - last 24 hr 11/06/24 17:12: Hgb 17.0 H, Hct 51.2 H Physical Exam Narrative GENERAL: cooperative HEENT: Atraumatic; normocephalic EYES; Anicteric, Normal Conjunctiva NECK; supple, normal thyroid, RESPIRATORY: Diminished to auscultation CARDIOVASCULAR: Regular S1 S2, GI: soft, normoactive bowel sounds, : No Renal angle tenderness; EXTREMITIES: No edema, no clubbing, MUSCULOSKELETAL: no muscle wasting NEURO: Awake; left-sided hemiplegia SKIN: No Rash PSYCH; Flat affect Assessment & Plan Assessment/Plan (1) Chest pain: QUALIFIERS: Chest pain type: chest pain due to myocardial ischemia Ischemic chest pain type: unstable angina pectoris Qualified Code(s): I20.0 - Unstable angina PLAN: Plan Patient is a 39-year-old lady with recent CVA with significant left-sided deficit who presented with chest pain 1. Chest pain ? EKG demonstrated inferior lateral ST wave changes patient underwent left heart catheterization which showed normal coronaries and heart function 2.. Recent CVA with residual left-sided deficits ? PT/OT/case management following. Hospitalized from 10/30-11/01 for acute CVA with residual left-sided deficits. Discharged to rehab unit on 11/01. Continue home aspirin and statin.. Patient medically ready to be discharged back to inpatient rehab unit awaiting insurance precertification 3. Erythrocytosis with concern for polycythemia vera ? Heme-onc consulted. Hemoglobin has been high in the 17-19 range since 10/30 along with elevated hematocrit. Given the events above, have concern for symptomatic polycythemia vera. Erythropoietin level pending. Patient was seen in consultation by heme-onc notes and recommendations reviewed ? 11/06/2024. Scheduled to undergo phlebectomy ? 11/07/2024;Patient had a second section of phlebotomy this a.m. Repeat H&H ordered for 1 PM this afternoon. 4. Hypertension ? Mildly hypertensive to the 130s to 140s systolic on admit. Continue home lisinopril and hydrochlorothiazide. 5. Tobacco dependence ? Has been without tobacco use since 10/30. No need for nicotine replacement therapy at this time. Discussed cessation on discharge. 6. ADHD ? Hold home Adderall as this could be contributing and contributing factor to her chest pain as well as recent CVA as above. 7. DVT prophylaxis ? Subcu Lovenox 8. Nonsustained VT ? Had runs of nonsustained VT was seen in consultation by Dr. Eduardo cardiology added beta-blockers. Time spent in the patient's overall evaluation,decision-making process, review of diagnostic data, adjustment of management, discussion with other providers, nursing nursing and ancillary staff involved in patient's care documentation, 35 Minutes Charges/Coding Visit Charges Inpatient E&M: 37866 Subs Hosp L2 Date medically ready for discharge: 11/05/24 Reason for DC delay: Precert pending from insurance
[2024-11-07 10:43] LABS: Hematocrit 46.2 % (37-47); Hemoglobin 15.8 g/dL (12.0-15.0); Immature Granulocytes Count 0.030 X10^3/uL (0.0-0.0); Mean Corp Hgb Conc 34.2 g/dL (32-36); Mean Corpuscular Volume 90.6 fL (81-99); Mean Platelet Vol. 10.2 fl (6.2-12.0); NRBC Flagged by Analyzer 0 % (0-5); Platelet Count 382 K/mm3 (150-450); RBC Distribution Width CV 11.7 % (11.6-14.6); RBC Distribution Width SD 38.9 fl (35.1-43.9); Red Blood Count 5.10 M/mm3 (4.2-5.4); White Blood Count 10.7 K/mm3 (4.4-11.0)
[2024-11-07] MEDS: 0.9% Normal Saline (1000mL) 1,000 ML 100 ML IV ×2 (11:01→21:26)
--- NOTE | 2024-11-07 11:41 | CASEMGMT ---
Social Work Per physician, pt will tentatively be ready to return to inpatient rehab tomorrow. Nathalie in [facility] notified. SATYA Rogers
--- NOTE | 2024-11-07 12:24 | CASEMGMT ---
Social Work SW met with pt, pt's mother and pt's grandmother. Updated on dc plan back to rehab and pt is agreeable. SW inquired about pt's son and living situation. Pt confirms son is with his father although son is unhappy about this. SW reiterated need for 14 year old son to be living with a responsible adult and all family members in the room acknowledged understanding of this. Pt family asking for information on disability. Information provided. SATYA Rogers
[2024-11-07] MEDS: FLUCONAZOLE 150 MG TABLET PO (13:24)
[2024-11-07 13:35] LABS: Hematocrit 46.4 % (37-47); Hemoglobin 15.4 g/dL (12.0-15.0); Mean Corp Hgb Conc 33.2 g/dL (32-36); Mean Corpuscular Volume 92.2 fL (81-99); Mean Platelet Vol. 10.4 fl (6.2-12.0); Platelet Count 424 K/mm3 (150-450); RBC Distribution Width CV 11.8 % (11.6-14.6); RBC Distribution Width SD 39.5 fl (35.1-43.9); Red Blood Count 5.03 M/mm3 (4.2-5.4); White Blood Count 11.0 K/mm3 (4.4-11.0)
[2024-11-07] MEDS: Hydrocortisone 2.5% Ointment 20 gm tube 1 APPLIC TOPICAL ×2 (18:00→21:34)
[2024-11-07] MEDS: Erythromycin Base 1 OPTH.TUBE 1 APPLIC OPHTHALMIC (21:30)
[2024-11-07] MEDS: 0.9% Saline Lock 10 ML Syringe IV (21:34)
[2024-11-08] VITALS (10 sets, daily range): BP systolic 124–151; BP diastolic 77–88; PULSE 75–102; RESP 14–16; TEMP 36.8–37.4; O2SAT 98–100
[2024-11-08] MEDS: 0.9% Normal Saline (1000mL) 1,000 ML 100 ML IV (07:36)
[2024-11-08 07:37] LABS: Hematocrit 39.2 % (37-47); Hemoglobin 13.0 g/dL (12.0-15.0); Immature Granulocytes Count 0.030 X10^3/uL (0.0-0.0); Mean Corp Hgb Conc 33.2 g/dL (32-36); Mean Corpuscular Volume 92.0 fL (81-99); Mean Platelet Vol. 10.7 fl (6.2-12.0); NRBC Flagged by Analyzer 0 % (0-5); Platelet Count 329 K/mm3 (150-450); RBC Distribution Width CV 11.7 % (11.6-14.6); RBC Distribution Width SD 39.6 fl (35.1-43.9); Red Blood Count 4.26 M/mm3 (4.2-5.4); White Blood Count 8.6 K/mm3 (4.4-11.0)
--- NOTE | 2024-11-08 07:51 | PCM.PN.HOSP ---
Reason for Visit Chief Complaint: Chest pain Subjective Subjective Patient hemoglobin down to 13.0 with hematocrit of 39.2. Patient complains of spasms lower extremity. On Flexeril for spasms. Awaiting insurance precertification prior to transfer back to inpatient rehab unit Objective Data Objective Data Vital Signs: Vital Signs Temp Pulse Resp BP Pulse Ox O2 Del Method 98.2 F 92 14 129/77 H 98 Room Air 11/08/24 04:07 11/08/24 04:07 11/08/24 04:07 11/08/24 04:07 11/08/24 04:07 11/08/24 04:08 Oxygen Delivery Method Room Air Weight: 76.839 kg Body Mass Index (BMI) 29.0 Intake & Output: Intake and Output for Last 24 Hours 11/06/24 11/07/24 11/08/24 23:59 23:59 23:59 Intake Total 1950 / 1950 1999 / 1999 1000 / 1000 Output Total 2975 / 2975 850 / 1100 1050 / 1050 Balance -1025 / -1025 1150 / 900 -50 / -50 Lab / Micro Data 11/08/24 06:45 11/08/24 06:45 Labs: Laboratory Results - last 24 hr 11/07/24 10:15: WBC 10.7, RBC 5.10, Hgb 15.8 H, Hct 46.2, MCV 90.6, MCH 31.0, MCHC 34.2, RDW Std Deviation 38.9, RDW Coeff of Maria Teresa 11.7, Plt Count 382, MPV 10.2, Immature Gran % (Auto) 0.300, Neut % (Auto) 63.9, Lymph % (Auto) 24.1, [place] % (Auto) 9.6, Eos % (Auto) 1.7, Baso % (Auto) 0.4, Absolute Neuts (auto) 6.8, Absolute Lymphs (auto) 2.57, Nucleated RBC % 0 11/07/24 13:20: WBC 11.0, RBC 5.03, Hgb 15.4 H, Hct 46.4, MCV 92.2, MCH 30.6, MCHC 33.2, RDW Std Deviation 39.5, RDW Coeff of Maria Teresa 11.8, Plt Count 424, MPV 10.4 11/08/24 06:45: WBC 8.6, RBC 4.26, Hgb 13.0, Hct 39.2, MCV 92.0, MCH 30.5, MCHC 33.2, RDW Std Deviation 39.6, RDW Coeff of Maria Teresa 11.7, Plt Count 329, MPV 10.7, Immature Gran % (Auto) 0.300, Neut % (Auto) 55.6, Lymph % (Auto) 32.3, [place] % (Auto) 9.0, Eos % (Auto) 2.2, Baso % (Auto) 0.6, Absolute Neuts (auto) 4.8, Absolute Lymphs (auto) 2.78, Nucleated RBC % 0 Physical Exam Narrative GENERAL: cooperative HEENT: Atraumatic; normocephalic EYES; Anicteric, Normal Conjunctiva NECK; supple, normal thyroid, RESPIRATORY: Diminished to auscultation CARDIOVASCULAR: Regular S1 S2, GI: soft, normoactive bowel sounds, : No Renal angle tenderness; EXTREMITIES: No edema, no clubbing, MUSCULOSKELETAL: no muscle wasting NEURO: Awake; left-sided hemiplegia SKIN: No Rash PSYCH; Flat affect Assessment & Plan Assessment/Plan (1) Chest pain: QUALIFIERS: Chest pain type: chest pain due to myocardial ischemia Ischemic chest pain type: unstable angina pectoris Qualified Code(s): I20.0 - Unstable angina PLAN: Plan Patient is a 39-year-old lady with recent CVA with significant left-sided deficit who presented with chest pain 1. Chest pain ? EKG demonstrated inferior lateral ST wave changes patient underwent left heart catheterization which showed normal coronaries and heart function 2.. Recent CVA with residual left-sided deficits ? PT/OT/case management following. Hospitalized from 10/30-11/01 for acute CVA with residual left-sided deficits. Discharged to rehab unit on 11/01. Continue home aspirin and statin.. Patient medically ready to be discharged back to inpatient rehab unit awaiting insurance precertification ? 11/08/2024; awaiting insurance precertification prior to transfer back to the inpatient rehab unit 3. Erythrocytosis with concern for polycythemia vera ? Heme-onc consulted. Hemoglobin has been high in the 17-19 range since 10/30 along with elevated hematocrit. Given the events above, have concern for symptomatic polycythemia vera. Erythropoietin level pending. Patient was seen in consultation by heme-onc notes and recommendations reviewed ? 11/06/2024. Scheduled to undergo phlebectomy ? 11/07/2024;Patient had a second section of phlebotomy this a.m. Repeat H&H ordered for 1 PM this afternoon. ? 11/08/2024; patient hematocrit down to 39.2 with hemoglobin of 13.0. 4. Hypertension ? Mildly hypertensive to the 130s to 140s systolic on admit. Continue home lisinopril and hydrochlorothiazide. 5. Tobacco dependence ? Has been without tobacco use since 10/30. No need for nicotine replacement therapy at this time. Discussed cessation on discharge. 6. ADHD ? Hold home Adderall as this could be contributing and contributing factor to her chest pain as well as recent CVA as above. 7. DVT prophylaxis ? Subcu Lovenox 8. Nonsustained VT ? Had runs of nonsustained VT was seen in consultation by Dr. Eduardo cardiology added beta-blockers. Time spent in the patient's overall evaluation,decision-making process, review of diagnostic data, adjustment of management, discussion with other providers, nursing nursing and ancillary staff involved in patient's care documentation, 35 Minutes Charges/Coding Visit Charges Inpatient E&M: 75402 Subs Hosp L2 Date medically ready for discharge: 11/05/24 Reason for DC delay: Precert pending from insurance
[2024-11-08 08:16] LABS: Anion Gap 9 (5-15); BUN 13 mg/dL (4-19); BUN/Creat Ratio 26.1 RATIO (10-20); Calcium,Total 8.4 mg/dL (7.6-11.0); Carbon Dioxide 20.9 mmol/L (21.0-32.0); Chloride 108 mmol/L (98-108); Estimated Creatinine Clearance 151.59 ml/min (50-250); Glucose 94 mg/dL (70-99); Magnesium 2.4 mg/dL (1.5-2.2); Potassium 4.3 mmol/L (3.3-5.1)
--- NOTE | 2024-11-08 09:00 | CASEMGMT ---
Social Work SW notified Nathalie in [facility] that per haroldo, pt is ready for discharge. Nathalie states she will start precert at this time. SATYA Rogers
[2024-11-08] MEDS: prednisoLONE eye drops (5 mL) 1 DROP OPTH.BTL 1 DRP OPHTHALMIC ×4 (09:53→20:47)
--- NOTE | 2024-11-08 16:20 | CASEMGMT ---
Social Work SW spoke with Nathalie in [facility]. Precert has not yet been obtained. If precert is obtained over the weekend, pt can admit to rehab on Monday (not Monday). Pt and physician updated. Green Sheet placed on chart to facilitate weekend discharge. plan: Inpaitent rehab, pending precert SATYA Lewis
[2024-11-08] MEDS: Erythromycin Base 1 OPTH.TUBE 1 APPLIC OPHTHALMIC (20:47)
[2024-11-08] MEDS: 0.9% Saline Lock 10 ML Syringe IV (20:48)
[2024-11-09] VITALS (7 sets, daily range): BP systolic 112–150; BP diastolic 68–86; PULSE 75–95; RESP 13–18; TEMP 36.6–36.7; O2SAT 95–97
[2024-11-09 03:48] LABS: Hematocrit 35.7 % (37-47); Hemoglobin 12.0 g/dL (12.0-15.0); Immature Granulocytes Count 0.030 X10^3/uL (0.0-0.0); Mean Corp Hgb Conc 33.6 g/dL (32-36); Mean Corpuscular Volume 90.4 fL (81-99); Mean Platelet Vol. 10.5 fl (6.2-12.0); NRBC Flagged by Analyzer 0 % (0-5); Platelet Count 325 K/mm3 (150-450); RBC Distribution Width CV 11.6 % (11.6-14.6); RBC Distribution Width SD 38.4 fl (35.1-43.9); Red Blood Count 3.95 M/mm3 (4.2-5.4); White Blood Count 9.1 K/mm3 (4.4-11.0)
[2024-11-09 04:41] LABS: Anion Gap 9 (5-15); BUN 12 mg/dL (4-19); BUN/Creat Ratio 20.4 RATIO (10-20); Calcium,Total 8.9 mg/dL (7.6-11.0); Carbon Dioxide 23.8 mmol/L (21.0-32.0); Chloride 108 mmol/L (98-108); Estimated Creatinine Clearance 130.32 ml/min (50-250); Glucose 123 mg/dL (70-99); Potassium 4.2 mmol/L (3.3-5.1)
--- NOTE | 2024-11-09 07:29 | PN.HOSP_ITS ---
Reason for Visit Chief Complaint: Chest pain Subjective Subjective No change in patient clinical condition awaiting insurance approval prior to transfer to the inpatient rehab unit Objective Data Objective Data Vital Signs: Vital Signs Temp Pulse Resp BP Pulse Ox O2 Del Method 97.9 F 75 13 112/71 96 Room Air 11/09/24 03:28 11/09/24 03:28 11/09/24 03:28 11/09/24 03:28 11/09/24 03:28 11/09/24 03:28 Oxygen Delivery Method Room Air Weight: 76.839 kg Body Mass Index (BMI) 29.0 Intake & Output: Intake and Output for Last 24 Hours 11/07/24 11/08/24 11/09/24 23:59 23:59 23:59 Intake Total 2000 / 1999 3400 / 3400 Output Total 850 / 1100 1050 / 1050 900 / 900 Balance 1150 / 900 2350 / 2350 -900 / -900 Lab / Micro Data 11/09/24 03:17 11/09/24 03:17 Labs: Laboratory Results - last 24 hr 11/08/24 06:45: WBC 8.6, RBC 4.26, Hgb 13.0, Hct 39.2, MCV 92.0, MCH 30.5, MCHC 33.2, RDW Std Deviation 39.6, RDW Coeff of Maria Teresa 11.7, Plt Count 329, MPV 10.7, Immature Gran % (Auto) 0.300, Neut % (Auto) 55.6, Lymph % (Auto) 32.3, [place] % (Auto) 9.0, Eos % (Auto) 2.2, Baso % (Auto) 0.6, Absolute Neuts (auto) 4.8, Absolute Lymphs (auto) 2.78, Nucleated RBC % 0, Sodium 138, Potassium 4.3, Chloride 108, Carbon Dioxide 20.9 L, Anion Gap 9, BUN 13, Creatinine 0.49 L, Estim Creat Clear Calc 151.59, Est GFR (MDRD) Non-Af 121, BUN/Creatinine Ratio 26.1 H, Glucose 94, Calcium 8.4, Phosphorus 3.5, Magnesium 2.4 H 11/09/24 03:17: WBC 9.1, RBC 3.95 L, Hgb 12.0, Hct 35.7 L, MCV 90.4, MCH 30.4, MCHC 33.6, RDW Std Deviation 38.4, RDW Coeff of Maria Teresa 11.6, Plt Count 325, MPV 10.5, Immature Gran % (Auto) 0.300, Neut % (Auto) 55.4, Lymph % (Auto) 32.6, [place] % (Auto) 9.2, Eos % (Auto) 1.9, Baso % (Auto) 0.6, Absolute Neuts (auto) 5.0, Absolute Lymphs (auto) 2.95, Nucleated RBC % 0, Sodium 140, Potassium 4.2, Chloride 108, Carbon Dioxide 23.8, Anion Gap 9, BUN 12, Creatinine 0.57 L, Estim Creat Clear Calc 130.32, Est GFR (MDRD) Non-Af 117, BUN/Creatinine Ratio 20.4 H, Glucose 123 H, Calcium 8.9 Physical Exam Narrative GENERAL: cooperative HEENT: Atraumatic; normocephalic EYES; Anicteric, Normal Conjunctiva NECK; supple, normal thyroid, RESPIRATORY: Diminished to auscultation CARDIOVASCULAR: Regular S1 S2, GI: soft, normoactive bowel sounds, : No Renal angle tenderness; EXTREMITIES: No edema, no clubbing, MUSCULOSKELETAL: no muscle wasting NEURO: Awake; left-sided hemiplegia SKIN: No Rash PSYCH; Flat affect Assessment & Plan Assessment/Plan (1) Chest pain: QUALIFIERS: Chest pain type: chest pain due to myocardial ischemia Ischemic chest pain type: unstable angina pectoris Qualified Code(s): I20.0 - Unstable angina PLAN: Plan Patient is a 39-year-old lady with recent CVA with significant left-sided deficit who presented with chest pain 1. Chest pain ? EKG demonstrated inferior lateral ST wave changes patient underwent left heart catheterization which showed normal coronaries and heart function 2.. Recent CVA with residual left-sided deficits ? PT/OT/case management following. Hospitalized from 10/30-11/01 for acute CVA with residual left-sided deficits. Discharged to rehab unit on 11/01. Continue home aspirin and statin.. Patient medically ready to be discharged back to inpatient rehab unit awaiting insurance precertification ? 11/08/2024; awaiting insurance precertification prior to transfer back to the inpatient rehab unit ? 11/09/2024; approval from patient insurance still pending prior to transfer to senior care for 3. Erythrocytosis with concern for polycythemia vera ? Heme-onc consulted. Hemoglobin has been high in the 17-19 range since 10/30 along with elevated hematocrit. Given the events above, have concern for symptomatic polycythemia vera. Erythropoietin level pending. Patient was seen in consultation by heme-onc notes and recommendations reviewed ? 11/06/2024. Scheduled to undergo phlebectomy ? 11/07/2024;Patient had a second section of phlebotomy this a.m. Repeat H&H ordered for 1 PM this afternoon. ? 11/08/2024; patient hematocrit down to 39.2 with hemoglobin of 13.0. 4. Hypertension ? Mildly hypertensive to the 130s to 140s systolic on admit. Continue home lisinopril and hydrochlorothiazide. 5. Tobacco dependence ? Has been without tobacco use since 10/30. No need for nicotine replacement therapy at this time. Discussed cessation on discharge. 6. ADHD ? Hold home Adderall as this could be contributing and contributing factor to her chest pain as well as recent CVA as above. 7. DVT prophylaxis ? Subcu Lovenox 8. Nonsustained VT ? Had runs of nonsustained VT was seen in consultation by Dr. Eduardo cardiology added beta-blockers. Time spent in the patient's overall evaluation,decision-making process, review of diagnostic data, adjustment of management, discussion with other providers, nursing nursing and ancillary staff involved in patient's care documentation, 35 Minutes Charges/Coding Visit Charges Inpatient E&M: 77584 Subs Hosp L2 Date medically ready for discharge: 11/08/24 Reason for DC delay: Precert pending from insurance
[2024-11-09] MEDS: prednisoLONE eye drops (5 mL) 1 DROP OPTH.BTL 1 DRP OPHTHALMIC ×4 (10:12→21:15)
--- NOTE | 2024-11-09 13:53 | CASEMGMT ---
Social Work Per Nathalie in inpatient rehab. Precert has been obtained and pt can admit to [facility] on Monday. Physician notified. SATYA Lewis
--- NOTE | 2024-11-09 14:29 | NURSING ---
Patient had chapin catheter when she came from Inpatient Rehab unit. Chapin catheter removed per .
[2024-11-09] MEDS: Erythromycin Base 1 OPTH.TUBE 1 APPLIC OPHTHALMIC (21:14)
[2024-11-10 05:30] VITALS: BP 134/90; PULSE 82; RESP 18; TEMP 37.1; O2SAT 95
[2024-11-10 06:47] LABS: Hematocrit 38.8 % (37-47); Hemoglobin 12.7 g/dL (12.0-15.0); Immature Granulocytes Count 0.030 X10^3/uL (0.0-0.0); Mean Corp Hgb Conc 32.7 g/dL (32-36); Mean Corpuscular Volume 91.7 fL (81-99); Mean Platelet Vol. 10.7 fl (6.2-12.0); NRBC Flagged by Analyzer 0 % (0-5); Platelet Count 384 K/mm3 (150-450); RBC Distribution Width CV 11.6 % (11.6-14.6); RBC Distribution Width SD 39.0 fl (35.1-43.9); Red Blood Count 4.23 M/mm3 (4.2-5.4); White Blood Count 8.8 K/mm3 (4.4-11.0)
[2024-11-10 07:04] LABS: Anion Gap 9 (5-15); BUN 12 mg/dL (4-19); BUN/Creat Ratio 19.8 RATIO (10-20); Calcium,Total 9.2 mg/dL (7.6-11.0); Carbon Dioxide 26.0 mmol/L (21.0-32.0); Chloride 107 mmol/L (98-108); Estimated Creatinine Clearance 123.80 ml/min (50-250); Glucose 98 mg/dL (70-99); Potassium 4.2 mmol/L (3.3-5.1)
--- NOTE | 2024-11-10 08:33 | PCM.DC.SUM ---
Providers Date of Admission: 11/04/24 Primary Care Physician: Felicita Primary Care Phys Consultations 11/04/24 13:13 Consult: Oncology/Hematology Routine Consulting Provider: [facility] ([facility]) Reason for Consult: 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 Domingo prior to transfer to [facility] 11/04/24 13:55 Consult: Cardiology Routine Consulting Provider: Law Eduardo Reason for Consult: CP with abnormal EKG EMERGENT Consult: No Notified: Yes Date Notified: 11/04/24 Time Notified: 13:55 Method of Notification: Text Reason For Visit: CHEST PAIN, RECENT CVA Diagnosis Discharge Diagnosis (1) Chest pain: Status: Acute Code(s): R07.9 - Chest pain, unspecified Qualifiers: Chest pain type: chest pain due to myocardial ischemia Ischemic chest pain type: unstable angina pectoris Qualified Code(s): I20.0 - Unstable angina Plan Patient is a 39-year-old lady with recent CVA with significant left-sided deficit who presented with chest pain 1. Chest pain ? EKG demonstrated inferior lateral ST wave changes patient underwent left heart catheterization which showed normal coronaries and heart function 2.. Recent CVA with residual left-sided deficits ? PT/OT/case management following. Hospitalized from 10/30-11/01 for acute CVA with residual left-sided deficits. Discharged to rehab unit on 11/01. Continue home aspirin and statin.. Patient medically ready to be discharged back to inpatient rehab unit awaiting insurance precertification ? 11/08/2024; awaiting insurance precertification prior to transfer back to the inpatient rehab unit ? 11/09/2024; approval from patient insurance still pending prior to transfer to assisted for 3. Erythrocytosis with concern for polycythemia vera ? Heme-onc consulted. Hemoglobin has been high in the 17-19 range since 10/30 along with elevated hematocrit. Given the events above, have concern for symptomatic polycythemia vera. Erythropoietin level pending. Patient was seen in consultation by heme-onc notes and recommendations reviewed ? 11/06/2024. Scheduled to undergo phlebectomy ? 11/07/2024;Patient had a second section of phlebotomy this a.m. Repeat H&H ordered for 1 PM this afternoon. ? 11/08/2024; patient hematocrit down to 39.2 with hemoglobin of 13.0. 4. Hypertension ? Mildly hypertensive to the 130s to 140s systolic on admit. Continue home lisinopril and hydrochlorothiazide. 5. Tobacco dependence ? Has been without tobacco use since 10/30. No need for nicotine replacement therapy at this time. Discussed cessation on discharge. 6. ADHD ? Hold home Adderall as this could be contributing and contributing factor to her chest pain as well as recent CVA as above. 7. DVT prophylaxis ? Subcu Lovenox 8. Nonsustained VT ? Had runs of nonsustained VT was seen in consultation by Dr. Eduardo cardiology added beta-blockers. Time spent in the patient's overall evaluation,decision-making process, review of diagnostic data, adjustment of management, discussion with other providers, nursing nursing and ancillary staff involved in patient's care documentation, 35 Minutes Medications at Discharge Home Medications loratadine 10 mg tablet (Claritin) 10 mg PO DAILY PRN PRN Allergies 01/25/18 dexamethasone sodium phosphate 0.1 % eye drops 1 drp ophthalmic (eye) 4X/DAY eye inflamattion 10/30/24 dextroamphetamine-amphetamine 30 mg tablet 1 tab PO BID inflammation 10/30/24 erythromycin 5 mg/gram (0.5 %) eye ointment 1 applic ophthalmic (eye) QHS eye 10/30/24 aspirin 81 mg chewable tablet 81 mg PO DAILY heart health #0 tabs 11/01/24 atorvastatin 80 mg tablet 80 mg PO QHS cholesterol #0 tabs 11/01/24 cyclobenzaprine 10 mg tablet 10 mg PO TID PRN PRN Muscle Spasm #0 tabs 11/01/24 lisinopril 10 mg tablet 10 mg PO DAILY blood pressure #0 tabs 11/01/24 metoprolol tartrate 50 mg tablet 50 mg PO BID #0 tabs 11/10/24 Physical Exam Narrative GENERAL: cooperative HEENT: Atraumatic; normocephalic EYES; Anicteric, Normal Conjunctiva NECK; supple, normal thyroid, RESPIRATORY: Diminished to auscultation CARDIOVASCULAR: Regular S1 S2, GI: soft, normoactive bowel sounds, : No Renal angle tenderness; EXTREMITIES: No edema, no clubbing, MUSCULOSKELETAL: no muscle wasting NEURO: Awake; left-sided hemiplegia SKIN: No Rash PSYCH; Flat affect Weight / BMI Weight Weight: 76.839 kg Body Mass Index (BMI) 29.0 ABG / Lab / Microbiology Data 11/10/24 05:55 11/10/24 05:55 Laboratory: Laboratory Results - last 24 hr 11/10/24 05:55: WBC 8.8, RBC 4.23, Hgb 12.7, Hct 38.8, MCV 91.7, MCH 30.0, MCHC 32.7, RDW Std Deviation 39.0, RDW Coeff of Maria Teresa 11.6, Plt Count 384, MPV 10.7, Immature Gran % (Auto) 0.300, Neut % (Auto) 51.5, Lymph % (Auto) 37.4, [place] % (Auto) 8.7, Eos % (Auto) 1.6, Baso % (Auto) 0.5, Absolute Neuts (auto) 4.5, Absolute Lymphs (auto) 3.28, Nucleated RBC % 0, Sodium 141, Potassium 4.2, Chloride 107, Carbon Dioxide 26.0, Anion Gap 9, BUN 12, Creatinine 0.60 L, Estim Creat Clear Calc 123.80, Est GFR (MDRD) Non-Af 116, BUN/Creatinine Ratio 19.8, Glucose 98, Calcium 9.2 D/C Instructions Discharge Activity: Return to Normal Activity Call your doctor if you observe: Fever of 101 or Higher, Shortness of breath, Fainting spells and Chest pain DC O2, CPAP, BIPAP Needs Home O2 Discharge instructions: No Meaningful Use Info Meaningful Use Meaningful Use Diagnoses (Choose all that apply): None applicable Discharge Plan Admission Admit Date/Time: 11/04/24 13:09 Attending Provider: Nehemiah Hammond Primary Care Provider: Care Physician,No Primary Consulting Providers: Nehemiah Ugarte; Shaun Del Angel; Trae Washington; Ann Andrews; Chase Mccauley; Jonathan Pérez; Aaron Crooks; Aubrey Saxena; Angelica Lawson NP; Law Eduardo; Kaleb Horta Discharge Orders/Prescriptions Prescriptions: New metoprolol tartrate 50 mg Tablet 50 mg PO BID Qty: 0 0RF Continued loratadine [Claritin] 10 MG tablet 10 mg PO DAILY PRN PRN (Reason: Allergies) dexamethasone sodium phosphate 0.1 % drops 1 drp ophthalmic (eye) 4X/DAY dextroamphetamine-amphetamine 30 mg tablet 1 tab PO BID erythromycin 5 mg/gram (0.5 %) ointment 1 applic ophthalmic (eye) QHS cyclobenzaprine 10 mg Tablet 10 mg PO TID PRN PRN (Reason: Muscle Spasm) Qty: 0 0RF atorvastatin 80 mg Tablet 80 mg PO QHS Qty: 0 0RF lisinopril 10 mg Tablet 10 mg PO DAILY Qty: 0 0RF aspirin 81 mg Tablet,Chewable 81 mg PO DAILYCM Qty: 0 0RF Discontinued hydrochlorothiazide 12.5 mg Capsule 12.5 mg PO DAILY Qty: 0 0RF Referrals / Follow Up: Shaun Del Angel MD [Med Staff - Active Staff] - Within 1 Month Care Physician,No Primary [Primary Care Provider] - Disposition Disposition (needs filled in before D/C Order can be placed): Inpatient Rehab Unit/Facility Charges/Coding Visit Charges Inpatient E&M: 07355 Disch Hosp >30min
[2024-11-10 10:25] VITALS: BP 125/90; PULSE 85; RESP 17; TEMP 36.6; O2SAT 95
[2024-11-10] MEDS: prednisoLONE eye drops (5 mL) 1 DROP OPTH.BTL 1 DRP OPHTHALMIC (10:28)
[2024-11-10 10:32] VITALS: PULSE 85
--- NOTE | 2024-11-10 12:32 | NURSING ---
Report called to Inpatient acid correction hand.
[2024-11-10 13:42] VITALS: BP 110/95; PULSE 88; RESP 17; O2SAT 96
== END 2024-11-10 13:45 ==
PROVIDERS: Family Medicine; Internal Medicine; Internal Medicine Cardiovascular Disease; Admitting Provider Hospitalist; Referring Provider Hospitalist; Visit Provider Internal Medicine
DX: I20.0 Unstable angina (principal); I69.354 Hemiplegia and hemiparesis following cerebral infarction affecting left non-dominant side; I47.20 Ventricular tachycardia, unspecified; I10 Essential (primary) hypertension; D75.1 Secondary polycythemia; F17.290 Nicotine dependence, other tobacco product, uncomplicated; F90.9 Attention-deficit hyperactivity disorder, unspecified type; Z79.82 Long term (current) use of aspirin; Z79.899 Other long term (current) drug therapy; Z82.49 Family history of ischemic heart disease and other diseases of the circulatory system
CPT/HCPCS: 36415; 74177; 76700; 80048; 81025; 81270; 83735; 84100; 84484; 85014; 85018; 85025; 85027; 85730; 93458; 94668; 96360; 96361; 96372; 97110; 97112; 97116; 97163; 97166; 97530; 97535; 97802; 99152; 99153; 99221; 99406; Q9967; A4216; C1769; C1894; G0378

== ENCOUNTER 2024-11-10 13:53 | Inpatient (IN) | payer OTHER, SELFPAY ==
--- OUTSIDE RECORDS SUMMARY | 2024-11-10 14:33 | XMS RPT_ITS | CCD ---
Author Organization [facility] Care Team Providers Care Order Entry Technician Name Role Phone Unavailable Primary Care Provider Unavailabl e Care Physician, No Primary Primary Care Provider Unavailable Care Physician, No Primary Referring Provider Un available Yefri Mancera Attending Provider Yefri Mancera Referring Provider Dr. Domenico Silva DO Emergency Provider Haney DO, Dr. Cerna Admit Provider Unavail able Haney DO, Dr. Cerna Attending Provider Unav ailable Haney DO, Dr. Cerna Other Provider Unavail able David Gale MD Other Provider Unavailable Dr. Ehsan Uriarte MD Other Provider Sheeba Rodriguez MD Other Provider Unavailable Dr. Lydia Orantes DO Other Provider [phone] Dr. Renee Cleveland MD Other Provider Dr. Kyle Ghosh MD Other Provider Dr. Leidy Mckinnon MD Other Provider Dr. Reagan White MD Other Provider Dr. Tong Rai MD Other Provider Andres SCHWAB, Dr. Reza Other Provider Shakira Anthony MD Other Provider Dr. Aaron Chvaez MD Other Provider Dr. Sherry Lugo MD Other Provider Arnulfo SCHWAB, Dr. Hoang Other Provider [phone] Dr. Hemanth Reyna MD Other Provider Alex SCHWAB Dr. Moss Other Provider [phone] Yobany SCHWAB, Dr. Torres Other Provider Gurmeet SCHWAB, Dr. Chau Other Provider Afshin SCHWAB, Dr. Valentine Other Provider Unavailable Katerine SCHWAB, Mark Other Provider Unavailable Narciso SCHWAB, Dr. Baxter Attending Provider Vince SCHWAB, Dr. Sen Whipple Other Provider Vince SCHWAB, Dr. Sen Whipple Attending Provider Jayce SCHWAB, Dr. Foy Attending Provider Narciso SCHWAB, Dr. Baxter Other Provider Trav SCHWAB, Dr. Luis Saucedo Admit Provider Trav SCHWAB, Dr. Luis Saucedo Other Provider Satnam SCHWAB, Dr. Sandoval Other Provider Unavailable Anne SCHWAB, Dr. Schofield Other Provider Unavailable Balaji SCHWAB, Dr. Esteban Other Provider Josue SCHWAB, Dr. Davis Other Provider Miguel SCHWAB, Dr. Thorpe Other Provider Hal SCHWAB, Dr. Vasquez Other Provider Unavailable Jayce SCHWAB, Dr. Foy Other Provider Clifford PHILLIPS, Dr. Nehemiah Jackson Other Provider Berny SCHWAB, Dr. Andujar Other Provider Sanjuanita SCHWAB, Dr. Reece Other Provider Yolanda SCHWAB, Dr. Hayes Other Provider Justus SCHWAB, Dr. Corral Other Provider Lemuel SCHWAB, Dr. Agrawal Other Provider Forest PROOFER PREPRESS-C, Jarred Medina Other Provider Danielle Palm Other Provider Omer Shaver Other Provider Dr. Shaun Del Angel MD Other Provider [phone] Chayo PHILLIPS, Dr. Lois Reyez Attending Provide r Dr. Kaleb Horta DO Other Provider Care Physician, No Primary Primary Care Unava ilable Nehemiah Haney Admitting Unavailable Vee Stuart Attending Unavailable David Gale Consulting Unavailable AdeEhsan rios Consulting Unavailable Hindulinda, Sheeba Consulting Unavailable Lamberto Lydia Consulting Unavailable Zha, Renee Consulting Unavailable Augie, Kyle Consulting Unavailable PratibhaLeidy mcgarry Consulting Unavailable Reagan [...] Unavailable Sen Clarke Consulting Unavailable Vee Stuart Consulting Unavailable Jayce, Bellef[place] Attending Unavailable Care Physician, No Primary Primary Care Unava ilable Kaleb Horta Admitting Unavailable Kaleb Horta Referring Unavailable Nehemiah Ugarte Consulting Unavailable Shaun Del Angel Consulting Unavailable Trae Washington Consulting Unavailable Ann Andrews Consulting Unavailable Chase Mccauley Consulting Unavailable Jonathan Pérez Consulting Unavailable Aaron Crooks Consulting Unavailable Aubrey Saxena Consulting Unavailable Renny QUICK, Angelica Consulting Unavailable Jayce, Law Consulting Unavailable Kaleb Horta Consulting Unavailable Nehemiah Hammond Consulting Unavailable Kaleb Horta Attending Unavailable Shaun Del Angel Attending Unavailable Nehemiah Hammond Attending Unavailable Lois Domingo Attending Unavaila [facility] Care Physician, No Primary Primary Care Unava ilable Lori Hay Consulting Unavailable Trav, Luis Chi Admitting Unavailable Rick Rodríguezmamya Consulting Unavailable afchristina Eulalia Consulting Unavailable Josue Susan Consulting Unavailable Maurilio Rivera Consulting Unavailable Pedro Hong Consulting Unavailable Jayce, Law Consulting Unavailable Nehemiah Horton Consulting Unavailable Pratima Arrieta Consulting Unavailable Chevy Gann Consulting Unavailable Docanehemiah, Nagapradee Consulting Unavailabl e Satti, Elils Consulting Unavailable Lemuel, Nghia Consulting Unavailable Roof PROOFER PREPRESS, Jarred Medina Consulting Unavailable Danielle Palm Consulting Unavail able Omer Naranjo Consulting Unavailable Shaun Del Angel Consulting Unavailable Trav, Luis Chi Consulting Unavailable Kaleb Horta Consulting Unavailable Law Eduardo Attending Unavailable Lois Domingo Consulting Unavaila ble Care Physician, No Primary Primary Care Unava ilable Yefri Mancera Referring Unavailable Yefri Mancera Attending Unavailable Care Physician, No Primary Referring Unava ilable Care Physician, No Primary Primary Care Unava ilable Yefri Mancera Attending Unavailable Ximena Mccormick Attending Unavailable JayceVinh noyolaril Attending Unavailable Care Physician, No Primary Primary Care Unava ilable Care Physician, No Primary Primary Care Unava ilable Lauri Puga Attending Unavailable SemenLois rose Attending Unavaila ble Care Physician, No Primary Primary Care Unava ilable Trav, Luis Chi Admitting Unavailable Amrangle Ahmed Consulting Unavailable Jabri, Ahmad Consulting Unavailable Mostafa, Eulalia Consulting Unavailable Josue, Susan Consulting Unavailable Maurilio Rivera Consulting Unavailable Pedro Hong Consulting Unavailable Jayce, Bellefonte Consulting Unavailable Nehemiah Horton Consulting Unavailable Pratima Arrieta Consulting Unavailable Chevy Gann Consulting Unavailable Yolanda, Nagapradee Consulting Unavailabl e Satti, Ellis Consulting Unavailable Lemuel, Nghia Consulting Unavailable Forest PROOFER PREPRESS, Jarred Medina Consulting Unavailable Danielle Palm Consulting Unavail able Omer Naranjo Consulting Unavailable Shaun Del Angel Consulting Unavailable Trav, Luis Chi Consulting Unavailable Kaleb Horta Consulting Unavailable Nehemiah Haney Admitting Unavailable Vee Stuart Attending Unavailable Care Physician, No Primary Primary Care Unava ilable David Gale Consulting Unavailable Ehsan Uriarte Consulting Unavailable Sheeba Rodriguez Consulting Unavailable Lydia Orantes Consulting Unavailable Renee Cleveland Consulting Unavailable Kyel Ghosh Consulting Unavailable Leidy Mckinnon Consulting Unavailable Reagan White Consulting Unavailable Tong Rai Consulting Unavailable Juaquin Campos Consulting Unavailable Shakira Anthony Consulting Unavailable Aaron Chavez Consulting Unavailable Sherry Lugo Consulting Unavailable Ridha, Mohamed Consulting Unavailable Zaghlouleh, Mhd Jose L Consulting UnavailAjay Dahl Consulting Unavailable Haywood, Rami Consulting Unavailable Carolyne Levihil Consulting Unavailable Meme Pepe Consulting Unavailable Katerine Gregghenny Consulting Unavailable Nehemiah Haney Consulting Unavailable Sen Clarke Consulting Unavailable Law Eduardo Attending Unavailable Care Physician, No Primary Primary Care Unava ilable Nehemiah Haney Attending Unavailable Sen Clarke Attending Unavailable Chayo PHILLIPS, Dr. Lois Reyez Other Provider Mychal PHILLIPS, Dr. Manuel Admit Provider [phone] Mychal PHILLIPS, Dr. Manuel Referring Provider Shanel SCHWAB, Dr. Cerna Other Provider Dr. Trae Washington MD Other Provider Unavailable Juliana SCHWAB, Dr. Juarez Other Provider Dr. Chase Mccauley MD Other Provider Beto SCHWAB, Dr. Castillo Other Provider Unavailable Valeriy SCHWAB, Dr. Walker Other Provider Dr. Aubrey Saxena DO Other Provider Renny PROOFER PREPRESS-C, Angelica Other Provider Dr. Nehemiah Hammond MD Attending Provider Unavaila Dr. Shaun Alvarenga MD Attending Provider Dr. Nehemiah Hammond MD Other Provider Unavailable Jace SCHWAB, Dr. Ximena Castañeda Attending Provider Allergies Allergy Classification Reported Allergen(s) Allergy Type Date of Onset Reaction(s) Facility (7 sources) Naproxen; Translations: [NAPROXEN] Drug Allergy [facility] Work Phone: (2 sources) Seasonal allergy; Translations: [SEASONAL ALLERGIES] Propensity to adverse reactions 0 [facility] (3 sources) Codeine Drug Allergy 5 [facility] (1 source) Codeine Drug Allergy 5 [facility] (1 source) Naproxen Drug Allergy [facility] Medications Current Medications Medication Drug Class(es) Dates Sig (Normalized) Sig (Original) amphetamine aspartate 7.5 mg / amphetamine sulfate 7.5 mg / dextroamphetamine saccharate 7.5 mg / dextroamphetamine sulfate 7.5 mg oral tablet (11 sources) Central Nervous System Stimulant Start: 10-30-2024 Dextroamphetamine- Amphetamine 30 mg tablet Active 1 {tbl} PO TWICE A DAY October 30, 2024 12:00am inflammation Start: 03-25-2019 take 1 tablet by shay [...] 2024 2:24pm aspirin 81 mg chewable tablet (3 sources) Platelet Aggregation Inhibitor, Nonsteroidal Anti-inflammatory Drug Start: 11-01-2024 take 1 tablet by mouth once daily at mealtime Aspirin 81 mg Tablet,Chewable Active 81 mg PO DAILY WITH MEALS 0 November 01, 2024 12:00am heart [facility] atorvastatin 80 mg oral tablet (3 sources) HMG-CoA Reductase Inhibitor Start: 11-01-2024 take 1 tablet by mouth at bedtime Atorvastatin 80 mg Tablet Active 80 mg PO AT BEDTIME 0 November 01, 2024 12:00am cholesterol cyclobenzaprine hydrochloride 10 mg oral tablet (3 sources) Muscle Relaxant Start: 11-01-2024 take 1 tablet by mouth three times daily as needed for muscle spasms Cyclobenzaprine 10 mg Tablet Active 10 mg PO 3 TIMES DAILY NEEDED as needed for Muscle Spasm 0 November 01, 2024 12:00am dexamethasone phosphate 1 mg/ml ophthalmic solution (4 sources) Corticosteroid Start: 10-30-2024 Dexamethasone Sodium Phosphate 0.1 % drops Active 1 NMA OPHTHALMIC 4 TIMES DAILY October 30, 2024 12:00am eye inflamattion dicyclomine hydrochloride 10 mg oral capsule (1 source) Anticholinergic Start: 02-11-2019 take 1 capsule by mouth three times daily as needed dicyclomine (BENTYL) 10 mg capsule Indications: Altered bowel habits , Generalized abdominal pain Take 1 capsule by mouth three times daily as needed. 90 capsule 3 02/11/2019 Active erythromycin 0.005 mg/mg ophthalmic ointment (4 sources) Macrolide, Macrolide Antimicrobial Start: 10-30-2024 Erythromycin 5 mg/gram (0.5 %) ointment Active 1 NMA OPHTHALMIC AT BEDTIME October 30, 2024 12:00am eye Start: 10-30-2024 Erythromycin 5 mg/gram (0.5 %) ointment Active 1 NMA OPHTHALMIC EVERY EVENING October 30, 2024 12:00am lactobacillus acidophilus 460 mg oral capsule (1 source) Start: 11-20-2019 take 1 capsule by mouth once daily Lactobacillus acidophilus (FLORAJEN) 460 mg (20 billion cell) cap Take 1 capsule by mouth once daily. 30 capsule 11/20/2019 Active lisinopril 10 mg oral tablet (3 sources) Angiotensin Converting Enzyme Inhibitor Start: 11-01-2024 take 1 tablet by mouth once daily Lisinopril 10 mg Tablet Active 10 mg PO DAILY 0 0 November 01, 2024 12:00am blood pressure loratadine 10 mg oral tablet (6 sources) Start: 01-25-2018 take 1 tablet by mouth once daily as needed Loratadine (Claritin) 10 MG tablet Active 10 mg PO DAILY NEEDED as needed for Allergies January 25, 2018 12:00am LORATADINE (CLAR ITIN ORAL) Take by mouth. Active metoprolol tartrate 50 mg oral tablet (2 sources) beta-Adrenergic Vanita Start: 11-10-2024 take 1 tablet by mouth twice daily Metoprolol Tartrate 50 mg Tablet Active 50 mg PO TWICE A DAY 0 0 November 10, 2024 12:00am Start: 04-09-2019 take 1 tablet by shay th once daily metoprolol succinate ER (TOPROL XL) 50 mg 24 hr tablet Indications: Hypertension, essential Take 1 tablet by mouth once daily. 30 tablet 5 04/09/2019 Active Completed/Discontinued Medications Medication Drug Class(es) Dates Sig (Normalized) Sig (Original) acetaminophen 325 mg / HYDROcodone bitartrate 5 mg oral tablet (5 sources) Opioid Agonist Start: 8 End: 8 Hydrocodone-Acetaminoph en 1 TABLET tablet Discontinued 1 {tbl} PO EVERY 6 HOURS NEEDED as needed for Pain 10 3 0 January 25, 2018 12:00am January 27, 2018 12:00am January 28, 2018 12:11am Strain of left shoulder Drug-induced anaphylaxis Anaphylactic shock, unspecified, initial encounter cloNIDine hydrochloride 0.1 mg oral tablet (5 sources) Central alpha-2 Adrenergic Agonist Start: 4 End: 5 take 1 tablet by mouth every six hours as needed Clonidine Hcl 0.1 mg tablet Discontinued 0.1 mg PO EVERY 6 HOURS as needed for hypertensive emergency 10 0 November 27, 2023 12:00am November 01, 2024 2:24pm hydroCHLOROthiazide 12.5 mg oral capsule (3 sources) Thiazide Diuretic Start: 5 End: 5 take 1 capsule by mouth once daily Hydrochlorothiazide 12.5 mg Capsule Discontinued 12.5 mg PO DAILY 0 0 November 01, 2024 12:00am November 10, 2024 8:34am blood pressure rizatriptan 10 mg oral tablet (4 sources) Serotonin-1b and Serotonin-1d Receptor Agonist Start: 5 End: 5 take 1 tablet by mouth every two hours as needed for headache Rizatriptan 10 mg tablet Discontinued 10 mg PO Q2H as needed for migraine headache October 30, 2024 12:00am November 01, 2024 2:24pm Problems Active Problems Problem Classification Problem Date Documented Da te Episodic/Chronic Acute cerebrovascular disease (16 sources) Ischemic stroke; Translations: [Cerebral infarction, unspecified] Onset: 11-06-2024 10-30-2024 Chronic Attention-deficit, conduct, and disruptive behavior disorders (10 sources) Attention deficit hyperactivity disorder; Translations: [Attention-deficit hyperactivity disorder, unspecified type] 10-30-2024 Chronic Attention-deficit, conduct, and disruptive behavior disorders (1 source) Attention-deficit hyperactivity disorder, unspecified type; Translations: [Attention-deficit hyperactivity disorder, unspecified type] Onset: 11-06-2024 Chronic Cardiac dysrhythmias (2 sources) Ventricular tachycardia; Translations: [Ventricular tachycardia] 11-06-2024 Chronic Coronary atherosclerosis and other heart disease (1 source) Unstable angina; Translations: [Unstable angina] Onset: 11-08-2024 Chronic Disorders usually diagnosed in infancy, childhood, or adolescence (1 source) Attention deficit hyperactivity disorder, predominantly inattentive type; Translations: [Other specified behavioral and emotional disorders with onset usually occurring in childhood and adolescence] Onset: 11-12-2013 11-12-2013 Chronic Essential hypertension (15 sources) Essential hypertension; Translations: [Essential (primary) hypertension] Onset: 01-02-2019 01-02-2019 Chronic Headache; including migraine (12 sources) Migraine; Translations: [Migraine, unspecified, not intractable, without status migrainosus] Onset: 11-12-2013 11-12-2013 Chronic Hypertension with complications and secondary hypertension (5 sources) Hypertensive urgency ; Translations: [Hypertensive urgency] 12-05-2023 Chronic Malaise and fatigue (14 sources) Muscle weakness; Translations: [Weakness] Onset: 11-05-2024 10-30-2024 Episodic Nonspecific chest pain (11 sources) Chest discomfort; Translations: [Other chest pain] 11-27-2023 Episodic Comment on above: with Inferolateral E KG changes. Other connective tissue disease (1 source) Pain in right foot; Translations: [Pain in right foot] Onset: 08-22-2024 Episodic Other gastrointestinal disorders (1 source) Irritable bowel syndrome; Translations: [Mixed irritable bowel syndrome] Onset: 01-02-2019 01-02-2019 Chronic Other hematologic conditions (9 sources) Erythrocytosis; 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] 10-31-2024 Episodic Other hematologic conditions (1 source) Secondary polycythemia; 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] Onset: 11-08-2024 Episodic Other nutritional; endocrine; and metabolic disorders (7 sources) Body mass index 25-29 - overweight; Translations: [Overweight] 10-30-2024 Episodic Other nutritional; endocrine; and metabolic disorders (1 source) Overweight; Translations: [Overweight] Onset: 11-06-2024 Episodic Other upper respiratory disease (4 sources) Allergic rhinitis; Translations: [Allergic rhinitis, unspecified] 11-04-2024 Chronic Other upper respiratory disease (1 source) Allergic rhinitis, unspecified; Translations: [Allergic rhinitis, unspecified] Onset: 11-05-2024 Chronic Paralysis (5 sources) Left hemiplegia; Translations: [Hemiplegia, unspecified affecting left nondominant side] Onset: 11-05-2024 11-01-2024 Chronic Residual codes; unclassified (8 sources) Tobacco user; Translations: [Tobacco use] 10-31-2024 Episodic Residual codes; unclassified (1 source) Tobacco use; Translations: [Tobacco use] Onset: 11-06-2024 Episodic Sprains and strains (9 sources) Strain of great toe; Translations: [Strain of unspecified muscle and tendon at ankle and foot level, right foot, initial encounter] 08-19-2024 Episodic Superficial injury; contusion (9 sources) Contusion of right great toe; Translations: [Contusion of right great toe without damage to nail, initial encounter] 08-19-2024 Episodic Unclassified (3 sources) A referral will be sent to [facility] neurology for follow-up Unclassified (1 source) Ventricular tachycardia, unspecified; Translations: [Ventricular tachycardia, unspecified] Onset: 11-08-2024 Past or Other Problems Problem Classification Problem [...] Test Name Value Interpretation Reference Range Facility Absolute lymphocyte countOrd ered By: Nehemiah Hammond on 11-10-2024 Lymphocytes Auto (Unsp spec) [#/Vol] 3.28 10*3/uL 0.83-4.51 [facility] Absolute neutrophil countOrd ered By: Nehemiah Hammond on 11-10-2024 Neutrophils (Bld) [#/Vol] 4.5 10*3/uL 2.0-7.7 [facility] Anion gap in Serum or Plasma Ordered By: Nehemiah Hammond on 11-10-2024 Anion gap [Moles/Vol] 9 mmol/L 5-15 [facility] Automated lymphocyte count a s percentage of total leukocytesOrdered By: Nehemiah Hammond on 11-10-2024 Lymphocytes/100 WBC Auto (Unsp spec) 37.4 % 19-41 [facility] BUN/creatinine ratioOrdered By: Nehemiah Hammond on 11-10-2024 Urea nitrogen/Creatinine [Mass ratio] 19.8 mg/mg 10-20 [facility] Basophil percentageOrdered B y: Nehemiah Hammond on 11-10-2024 Basophils/100 WBC (Bld) 0.5 % 0-1 [facility] Carbon dioxide, total [Moles /volume] in Central venous bloodOrdered By: Nehemiah Hammond on 11-10-2024 CO2 [Moles/Vol] 26.0 mmol/L 21.0-32.0 [facility] Chloride assayOrdered By: Edward Hammond on 11-10-2024 Chloride [Moles/Vol] 107 mmol/L 98-108 [facility] Eosinophil percentageOrdered By: Nehemiah Hammond on 11-10-2024 Eosinophils/100 WBC (Bld) 1.6 % 0-5 [facility] Erythrocyte distribution wid th ratioOrdered By: Nehemiah Hammond on 11-10-2024 Erythrocyte distribution width (RBC) [Ratio] 11.6 % 11.6-14.6 [facility] Erythrocyte distribution wid th standard deviationOrdered By: Nehemiah Hammond on 11-10-2024 Erythrocyte distribution width (RBC) [Ratio] 39.0 fl 35.1-43.9 [facility] Glomerular filtration rate ( GFR) estimation/1.73 sq m using serum, plasma, or whole bOrdered By: Nehemiah Hammond on 11-10-2024 GFR/1.73 sq M.predicted among non-blacks MDRD (S/P/Bld) [Vol rate/Area] 116 mL/min/{1.73_m2} >60 [facility] Comment on above: mL/min/1.73m2 CKD-EP I Creatinine Equation (2020) Hematocrit Auto (Bld) [Volum e fraction]Ordered By: Nehemiah Hammond on 11-10-2024 Hematocrit (Bld) [Volume fraction] 38.8 % 37-47 [facility] Hemoglobin measurementOrdere d By: Nehemiah Hammond on 11-10-2024 Hemoglobin (Bld) [Mass/Vol] 12.7 g/dL 12.0-15.0 [facility] Immature granulocytes/100 WB C Auto (Bld)Ordered By: Nehemiah Hammond on 11-10-2024 Immature granulocytes/100 WBC (Bld) 0.300 % 0.0-0.9 [facility] Comment on above: IG% - Immature Granu locytes (promyelocytes, myelocytes and metamyelocytes) > 1% indicates that a LEFT SHIFT is Present. MCV (mean corpuscular volume ) determinationOrdered By: Nehemiah Hammond on 11-10-2024 MCV (RBC) [Entitic vol] 91.7 fL 81-99 [facility] Mean corpuscular hemoglobin (MCH) determinationOrdered By: Nehemiah Hammond on 11-10-2024 MCH (RBC) [Entitic mass] 30.0 pg 27.0-32.0 [facility] Mean corpuscular hemoglobin concentration (MCHC) determinationOrdered By: Nehemiah Hammond on 11-10-2024 MCHC (RBC) [Mass/Vol] 32.7 g/dL 32-36 [facility] Mean platelet volume determi nationOrdered By: Nehemiah Hammond on 11-10-2024 Platelet mean volume (Bld) [Entitic vol] 10.7 fL 6.2-12.0 [facility] Monocyte percentageOrdered B y: Nehemiah Hammond on 11-10-2024 Monocytes/100 WBC (Bld) 8.7 % 0-10 [facility] Neutrophil percentageOrdered By: Nehemiah Hammond on 11-10-2024 Neutrophils/100 WBC (Bld) 51.5 % 47-70 [facility] Nucleated red blood cell per centageOrdered By: Nehemiah Hammond on 11-10-2024 Nucleated RBC/100 WBC (Bld) [Ratio] 0 % 0-5 [facility] Platelet countOrdered By: Edward Hammond on 11-10-2024 Platelets (Bld) [#/Vol] 384 10*3/uL 150-450 [facility] Potassium measurement (mass/ volume)Ordered By: Nehemiah Hammond on 11-10-2024 Potassium (Unsp spec) [Mass/Vol] 4.2 mmol/L 3.3-5.1 [facility] RBC Auto (Bld) [#/Vol]Ordere d By: Nehemiah Hammond on 11-10-2024 RBC (Bld) [#/Vol] 4.23 10*6/uL 4.2-5.4 [facility] Serum creatinine measurement (mass/volume)Ordered By: Nehemiah Hammond on 11-10-2024 Creatinine [Mass/Vol] 0.60 mg/dL Low 0.70-1.20 [facility] Serum glucose measurement (m ass/volume)Ordered By: Nehemiah Hammond on 11-10-2024 Glucose [Mass/Vol] 98 mg/dL 70-[address] [facility] Serum or plasma calcium sasha urement (mass/volume)Ordered By: Nehemiah Hammond on 11-10-2024 Calcium [Mass/Vol] 9.2 mg/dL 7.6-11.[address] [facility] Serum or plasma urea nitroge n measurement (mass/volume)Ordered By: Nehemiah Hammond on 11-10-2024 Urea nitrogen [Mass/Vol] 12 mg/dL 4-19 [facility] Sodium levelOrdered By: Himanshu Hammond on 11-10-2024 Sodium [Moles/Vol] 141 mmol/L 133-[address] [facility] White blood cell (WBC) count Ordered By: Nehemiah Hammond on 11-10-2024 WBC (Bld) [#/Vol] 8.8 10*3/uL 4.4-11.[address] [facility] Basic Metabolic Profile (BMP )on 11-08-2024 BUN/CRE 26.1 RATIO High 10-20 [facility] Comment on above: Performed By: #### L 100.0100, L500.2500, L501.5200, L501.2300 ####[facility] [id number] [place], [address] Calcium [Mass/Vol] 8.4 mg/dL Normal 7.6-11.[address] [facility] Comment on above: Performed By: #### L 100.0100, L500.2500, L501.5200, L501.2300 ####[facility] [id number] [place], [address] Chloride [Moles/Vol] 108 mmol/L Normal 98-108 [facility] Comment on above: Performed By: #### L 100.0100, L500.2500, L501.5200, L501.2300 ####[facility] [id number] [place], [address] CO2 [Moles/Vol] 20.9 mmol/L Low 21.0-32.0 [facility] Comment on above: Performed By: #### L 100.0100, L500.2500, L501.5200, L501.2300 ####[facility] [address] [place], [address] Creatinine [Mass/Vol] 0.49 mg/dL Low 0.70-1.20 [facility] Comment on above: Performed By: #### L 100.0100, L500.2500, L501.5200, L501.2300 ####[facility] [address] [place], [address] ECRCL 151.59 ml/min Normal 50-250 [facility] Comment on above: Performed By: #### L 100.0100, L500.2500, L501.5200, L501.2300 ####[facility] [address] [place], [address] GAP 9 Normal 5-15 [facility] Comment on above: Performed By: #### L 100.0100, L500.2500, L501.5200, L501.2300 ####[facility] [address] [place], [address] GFR/1.73 sq M.predicted among non-blacks MDRD (S/P/Bld) [Vol rate/Area] 121 mL/min/{1.73_m2} Normal >60 [facility] Comment on above: Result Comment: mL/m in/1.73m2 CKD-EPI Creatinine Equation (2020) Performed By: #### L 100.0100, L500.2500, L501.5200, L501.2300 ####[facility] [address] [place], [address] Glucose [Mass/Vol] 94 mg/dL Normal 70-[address] [facility] Comment on above: Performed By: #### L 100.0100, L500.2500, L501.5200, L501.2300 ####[facility] [address] [place], [address] Potassium [Moles/Vol] 4.3 mmol/L Normal 3.3-5.1 [facility] Comment on above: Performed By: #### L 100.0100, L500.2500, L501.5200, L501.2300 ####[facility] [address] [place], [address] Sodium [Moles/Vol] 138 mmol/L Normal 133-[address] [facility] Comment on above: Performed By: #### L 100.0100, L500.2500, L501.5200, L501.2300 ####[facility] [address] [place], [address] Urea nitrogen [Mass/Vol] 13 mg/dL Normal 4-19 [facility] Comment on above: Performed By: #### L 100.0100, L500.2500, L501.5200, L501.2300 ####[facility] [address] [place], [address] CBC W/Diff, Automatedon 08-0 8-2025 Absolute Lymph 2.78 X10 3/uL Normal 0.83-4.51 [facility] Comment on above: Performed By: #### L 100.0100, L500.2500, L501.5200, L501.2300 ####[facility] [address] [place], [address] Absolute Neut 4.8 X10 3/uL Normal 2.0-7.7 [facility] Comment on above: Performed By: #### L 100.0100, L500.2500, L501.5200, L501.2300 ####[facility] [address] [place], [address] Basophils/100 WBC (Bld) 0.6 % Normal 0-1 [facility] Comment on above: Performed By: #### L 100.0100, L500.2500, L501.5200, L501.2300 ####[facility] [address] [place], [address] Eosinophils/100 WBC (Bld) 2.2 % Normal 0-5 [facility] Comment on above: Performed By: #### L 100.0100, L500.2500, L501.5200, L501.2300 ####[facility] [address] [place], [address] Erythrocyte distribution width (RBC) [Ratio] 11.7 % Normal 11.6-14.6 [facility] Comment on above: Performed By: #### L 100.0100, L500.2500, L501.5200, L501.2300 ####[facility] [address] [place], [address] Hematocrit (Bld) [Volume fraction] 39.2 % Normal 37-47 [facility] Comment on above: Performed By: #### L 100.0100, L500.2500, L501.5200, L501.2300 ####[facility] [address] [place], [address] Hemoglobin (Bld) [Mass/Vol] 13.0 g/dL Normal 12.0-15.0 [facility] Comment on above: Performed By: #### L 100.0100, L500.2500, L501.5200, L501.2300 ####[facility] [address] [place], [address] IG% 0.300 Normal 0.0-0.9 [facility] Comment on above: Result Comment: IG% - Immature Granulocytes (promyelocytes, myelocytes andmetamyelocytes) > 1% indicates that a LEFT SHIFT is Present. Performed By: #### L 100.0100, L500.2500, L501.5200, L501.2300 ####[facility] [address] [place], [address] Lymphocytes/100 WBC (Bld) 32.3 % Normal 19-41 [facility] Comment on above: Performed By: #### L 100.0100, L500.2500, L501.5200, L501.2300 ####[facility] [address] [place], [address] MCH (RBC) [Entitic mass] 30.5 pg Normal 27.0-32.0 [facility] Comment on above: Performed By: #### L 100.0100, L500.2500, L501.5200, L501.2300 ####[facility] [address] [place], [address] MCHC (RBC) [Mass/Vol] 33.2 g/dL Normal 32-36 [facility] Comment on above: Performed By: #### L 100.0100, L500.2500, L501.5200, L501.2300 ####[facility] [address] [place], [address] MCV (RBC) [Entitic vol] 92.0 fL Normal 81-99 [facility] Comment on above: Performed By: #### L 100.0100, L500.2500, L501.5200, L501.2300 ####[facility] [address] [place], [address] Monocytes/100 WBC (Bld) 9.0 % Normal 0-10 [facility] Comment on above: Performed By: #### L 100.0100, L500.2500, L501.5200, L501.2300 ####[facility] [address] [place], [address] Neutrophils/100 WBC (Bld) 55.6 % Normal 47-70 [facility] Comment on above: Performed By: #### L 100.0100, L500.2500, L501.5200, L501.2300 ####[facility] [address] [place], [address] Nucleated RBC (Bld) [#/Vol] 0 10*3/uL Normal 0-5 [facility] Comment on above: Performed By: #### L 100.0100, L500.2500, L501.5200, L501.2300 ####[facility] [address] [place], [address] Platelet mean volume (Bld) [Entitic vol] 10.7 fL Normal 6.2-12.0 [facility] Comment on above: Performed By: #### L 100.0100, L500.2500, L501.5200, L501.2300 ####[facility] [address] [place], [address] Platelets (Bld) [#/Vol] 329 10*3/uL Normal 150-450 [facility] Comment on above: Performed By: #### L 100.0100, L500.2500, L501.5200, L501.2300 ####[facility] [address] [place], [address] RBC (Bld) [#/Vol] 4.26 10*6/uL Normal 4.2-5.4 [facility] Comment on above: Performed By: #### L 100.0100, L500.2500, L501.5200, L501.2300 ####[facility] [address] [place], [address] RDW SD 39.6 fl Normal 35.1-43.9 [facility] Comment on above: Performed By: #### L 100.0100, L500.2500, L501.5200, L501.2300 ####[facility] [address] [place], [address] WBC (Bld) [#/Vol] 8.6 10*3/uL Normal 4.4-11.[address] [facility] Comment on above: Performed By: #### L 100.0100, L500.2500, L501.5200, L501.2300 ####[facility] [address] [place], [address] Magnesiumon 11-08-2024 Magnesium [Mass/Vol] 2.4 mg/dL High 1.5-2.2 [facility] Comment on above: Performed By: #### L 100.0100, L500.2500, L501.5200, L501.2300 ####[facility] [address] [place], [address] Magnesium measurement (mass/ volume)Ordered By: Nehemiah Hammond on 11-08-2024 Magnesium (Unsp spec) [Mass/Vol] 2.4 mg/dL High 1.5-2.2 [facility] Phosphoruson 11-08-2024 Phosphate [Mass/Vol] 3.5 mg/dL Normal 2.7-4.5 [facility] Comment on above: Performed By: #### L 100.0100, L500.2500, L501.5200, L501.2300 ####[facility] [address] [place], [address] CBC W/Diff, Automatedon 08-0 7-2024 Absolute Lymph 2.57 X10 3/uL Normal 0.83-4.51 [facility] Comment on above: Performed By: #### L 100.0100 ####[facility] [address] [place], [address] Absolute Neut 6.8 X10 3/uL Normal 2.0-7.7 [facility] Comment on above: Performed By: #### L 100.0100 ####[facility] [address] [place], [address] Basophils/100 WBC (Bld) 0.4 % Normal 0-1 [facility] Comment on above: Performed By: #### L 100.0100 ####[facility] [address] [place], [address] Eosinophils/100 WBC (Bld) 1.7 % Normal 0-5 [facility] Comment on above: Performed By: #### L 100.0100 ####[facility] [address] [place], [address] Erythrocyte distribution width (RBC) [Ratio] 11.7 % Normal 11.6-14.6 [facility] Comment on above: Performed By: #### L 100.0100 ####[facility] [address] [place], [address] Hematocrit (Bld) [Volume fraction] 46.2 % Normal 37-47 [facility] Comment on above: Performed By: #### L 100.0100 ####[facility] [address] [place], [address] Hemoglobin (Bld) [Mass/Vol] 15.8 g/dL High 12.0-15.0 [facility] Comment on above: Performed By: #### L 100.0100 ####[facility] [address] [place], [address] IG% 0.300 Normal 0.0-0.9 [facility] Comment on above: Result Comment: IG% - Immature Granulocytes (promyelocytes, myelocytes andmetamyelocytes) > 1% indicates that a LEFT SHIFT is Present. Performed By: #### L 100.0100 ####[facility] [address] [place], [address] Lymphocytes/100 WBC (Bld) 24.1 % Normal 19-41 [facility] Comment on above: Performed By: #### L 100.0100 ####[facility] [address] [place], [address] MCH (RBC) [Entitic mass] 31.0 pg Normal 27.0-32.0 [facility] Comment on above: Performed By: #### L 100.0100 ####[facility] [address] [place], [address] MCHC (RBC) [Mass/Vol] 34.2 g/dL Normal 32-36 [facility] Comment on above: Performed By: #### L 100.0100 ####[facility] [address] [place], [address] MCV (RBC) [Entitic vol] 90.6 fL Normal 81-99 [facility] Comment on above: Performed By: #### L 100.0100 ####[facility] [address] [place], [address] Monocytes/100 WBC (Bld) 9.6 % Normal 0-10 [facility] Comment on above: Performed By: #### L 100.0100 ####[facility] [address] [place], [address] Neutrophils/100 WBC (Bld) 63.9 % Normal 47-70 [facility] Comment on above: Performed By: #### L 100.0100 ####[facility] [address] [place], [address] Nucleated RBC (Bld) [#/Vol] 0 10*3/uL Normal 0-5 [facility] Comment on above: Performed By: #### L 100.0100 ####[facility] [address] [place], [address] Platelet mean volume (Bld) [Entitic vol] 10.2 fL Normal 6.2-12.0 [facility] Comment on above: Performed By: #### L 100.0100 ####[facility] [address] [place], [address] Platelets (Bld) [#/Vol] 382 10*3/uL Normal 150-450 [facility] Comment on above: Performed By: #### L 100.0100 ####[facility] [address] [place], [address] RBC (Bld) [#/Vol] 5.10 10*6/uL Normal 4.2-5.4 [facility] Comment on above: Performed By: #### L 100.0100 ####[facility] [address] [place], [address] RDW SD 38.9 fl Normal 35.1-43.9 [facility] Comment on above: Performed By: #### L 100.0100 ####[facility] [address] [place], [address] WBC (Bld) [#/Vol] 10.7 10*3/uL Normal 4.4-11.0 [facility] Comment on above: Performed By: #### L 100.0100 ####[facility] [address] [place], [address] CBC-Complete Blood Cnt No Di ffon 11-07-2024 Erythrocyte distribution width (RBC) [Ratio] 11.8 % Normal 11.6-14.6 [facility] Comment on above: Performed By: #### L 100.0500 ####[facility] [address] [place], [address] Hematocrit (Bld) [Volume fraction] 46.4 % Normal 37-47 [facility] Comment on above: Performed By: #### L 100.0500 ####[facility] [address] [place], [address] Hemoglobin (Bld) [Mass/Vol] 15.4 g/dL High 12.0-15.0 [facility] Comment on above: Performed By: #### L 100.0500 ####[facility] [address] [place], [address] MCH (RBC) [Entitic mass] 30.6 pg Normal 27.0-32.0 [facility] Comment on above: Performed By: #### L 100.0500 ####[facility] [address] [place], [address] MCHC (RBC) [Mass/Vol] 33.2 g/dL Normal 32-36 [facility] Comment on above: Performed By: #### L 100.0500 ####[facility] [address] [place], [address] MCV (RBC) [Entitic vol] 92.2 fL Normal 81-99 [facility] Comment on above: Performed By: #### L 100.0500 ####[facility] [address] [place], [address] Platelet mean volume (Bld) [Entitic vol] 10.4 fL Normal 6.2-12.0 [facility] Comment on above: Performed By: #### L 100.0500 ####[facility] [address] [place], [address] Platelets (Bld) [#/Vol] 424 10*3/uL Normal 150-450 [facility] Comment on above: Performed By: #### L 100.0500 ####[facility] [address] [place], [address] RBC (Bld) [#/Vol] 5.03 10*6/uL Normal 4.2-5.4 [facility] Comment on above: Performed By: #### L 100.0500 ####[facility] [address] [place], [address] RDW SD 39.5 fl Normal 35.1-43.9 [facility] Comment on above: Performed By: #### L 100.0500 ####[facility] [address] [place], [address] WBC (Bld) [#/Vol] 11.0 10*3/uL Normal 4.4-11.0 [facility] Comment on above: Performed By: #### L 100.0500 ####[facility] [address] [place], [address] Basic Metabolic Profile (BMP )on 11-06-2024 BUN/CRE 29.5 RATIO High 10-20 [facility] Comment on above: Performed By: #### L 100.0100, L500.2500 ####[facility] [address] [place], [address] Calcium [Mass/Vol] 9.5 mg/dL Normal 7.6-11.[address] [facility] Comment on above: Performed By: #### L 100.0100, L500.2500 ####[facility] [address] [place], [address] Chloride [Moles/Vol] 101 mmol/L Normal 98-108 [facility] Comment on above: Performed By: #### L 100.0100, L500.2500 ####[facility] [address] [place], [address] CO2 [Moles/Vol] 22.2 mmol/L Normal 21.0-32.0 [facility] Comment on above: Performed By: #### L 100.0100, L500.2500 ####[facility] [address] [place], [address] Creatinine [Mass/Vol] 0.58 mg/dL Low 0.70-1.20 [facility] Comment on above: Performed By: #### L 100.0100, L500.2500 ####[facility] [address] [place], [address] ECRCL 128.07 ml/min Normal 50-250 [facility] Comment on above: Performed By: #### L 100.0100, L500.2500 ####[facility] [address] [place], [address] GAP 15 Normal 5-15 [facility] Comment on above: Performed By: #### L 100.0100, L500.2500 ####[facility] [address] [place], [address] GFR/1.73 sq M.predicted among non-blacks MDRD (S/P/Bld) [Vol rate/Area] 117 mL/min/{1.73_m2} Normal >60 [facility] Comment on above: Result Comment: mL/m in/1.73m2 CKD-EPI Creatinine Equation (2020) Performed By: #### L 100.0100, L500.2500 ####[facility] [address] [place], [address] Glucose [Mass/Vol] 112 mg/dL High 70-[address] [facility] Comment on above: Performed By: #### L 100.0100, L500.2500 ####[facility] [address] [place], [address] Potassium [Moles/Vol] 3.9 mmol/L Normal 3.3-5.1 [facility] Comment on above: Performed By: #### L 100.0100, L500.2500 ####[facility] [address] [place], [address] Sodium [Moles/Vol] 138 mmol/L Normal 133-[address] [facility] Comment on above: Performed By: #### L 100.0100, L500.2500 ####[facility] [address] [place], [address] Urea nitrogen [Mass/Vol] 17 mg/dL Normal 4-19 [facility] Comment on above: Performed By: #### L 100.0100, L500.2500 ####[facility] [address] [place], [address] CBC W/Diff, Automatedon 08-0 6-2024 Absolute Lymph 2.66 X10 3/uL Normal 0.83-4.51 [facility] Comment on above: Performed By: #### L 100.0100, L500.2500 ####[facility] [address] [place], [address] Absolute Neut 5.7 X10 3/uL Normal 2.0-7.7 [facility] Comment on above: Performed By: #### L 100.0100, L500.2500 ####[facility] [address] [place], [address] Basophils/100 WBC (Bld) 0.7 % Normal 0-1 [facility] Comment on above: Performed By: #### L 100.0100, L500.2500 ####[facility] [address] [place], [address] Eosinophils/100 WBC (Bld) 1.7 % Normal 0-5 [facility] Comment on above: Performed By: #### L 100.0100, L500.2500 ####[facility] [address] [place], [address] Erythrocyte distribution width (RBC) [Ratio] 11.9 % Normal 11.6-14.6 [facility] Comment on above: Performed By: #### L 100.0100, L500.2500 ####[facility] [address] [place], [address] Hematocrit (Bld) [Volume fraction] 52.1 % High 37-47 [facility] Comment on above: Performed By: #### L 100.0100, L500.2500 ####[facility] [address] [place], [address] Hemoglobin (Bld) [Mass/Vol] 17.4 g/dL High 12.0-15.0 [facility] Comment on above: Performed By: #### L 100.0100, L500.2500 ####[facility] [address] [place], [address] IG% 0.400 Normal 0.0-0.9 [facility] Comment on above: Result Comment: IG% - Immature Granulocytes (promyelocytes, myelocytes andmetamyelocytes) > 1% indicates that a LEFT SHIFT is Present. Performed By: #### L 100.0100, L500.2500 ####[facility] [address] [place], [address] Lymphocytes/100 WBC (Bld) 27.6 % Normal 19-41 [facility] Comment on above: Performed By: #### L 100.0100, L500.2500 ####[facility] [address] [place], [address] MCH (RBC) [Entitic mass] 30.1 pg Normal 27.0-32.0 [facility] Comment on above: Performed By: #### L 100.0100, L500.2500 ####[facility] [address] [place], [address] MCHC (RBC) [Mass/Vol] 33.4 g/dL Normal 32-36 [facility] Comment on above: Performed By: #### L 100.0100, L500.2500 ####[facility] [address] [place], [address] MCV (RBC) [Entitic vol] 90.1 fL Normal 81-99 [facility] Comment on above: Performed By: #### L 100.0100, L500.2500 ####[facility] [address] [place], [address] Monocytes/100 WBC (Bld) 10.9 % High 0-10 [facility] Comment on above: Performed By: #### L 100.0100, L500.2500 ####[facility] [address] [place], [address] Neutrophils/100 WBC (Bld) 58.7 % Normal 47-70 [facility] Comment on above: Performed By: #### L 100.0100, L500.2500 ####[facility] [address] [place], [address] Nucleated RBC (Bld) [#/Vol] 0 10*3/uL Normal 0-5 [facility] Comment on above: Performed By: #### L 100.0100, L500.2500 ####[facility] [address] [place], [address] Platelet mean volume (Bld) [Entitic vol] 10.3 fL Normal 6.2-12.0 [facility] Comment on above: Performed By: #### L 100.0100, L500.2500 ####[facility] [address] [place], [address] Platelets (Bld) [#/Vol] 361 10*3/uL Normal 150-450 [facility] Comment on above: Performed By: #### L 100.0100, L500.2500 ####[facility] [address] [place], [address] RBC (Bld) [#/Vol] 5.78 10*6/uL High 4.2-5.4 [facility] Comment on above: Performed By: #### L 100.0100, L500.2500 ####[facility] [address] [place], [address] RDW SD 39.6 fl Normal 35.1-43.9 [facility] Comment on above: Performed By: #### L 100.0100, L500.2500 ####[facility] [address] [place], [address] WBC (Bld) [#/Vol] 9.6 10*3/uL Normal 4.4-11.[address] [facility] Comment on above: Performed By: #### L 100.0100, L500.2500 ####[facility] [address] [place], [address] HH, Hemoglobin AND Hematocri ton 11-06-2024 Hematocrit (Bld) [Volume fraction] 51.2 % High 37-47 [facility] Comment on above: Performed By: #### L 100.0600 ####[facility] [address] [place], [address] Hemoglobin (Bld) [Mass/Vol] 17.0 g/dL High 12.0-15.0 [facility] Comment on above: Performed By: #### L 100.0600 ####[facility] [address] [place], [address] Magnesiumon 11-06-2024 Magnesium [Mass/Vol] 2.3 mg/dL High 1.5-2.2 [facility] Comment on above: Performed By: #### L 501.5200 ####[facility] [address] [place], [address] Abdomen Completeon Abdomen Complete Normal [facility] Abdomen/Pelvis WITH Contrast on 11-05-2024 Abdomen/Pelvis WITH Contrast Normal [facility] Basic Metabolic Profile (BMP )on 11-05-2024 BUN Normal 4-19 [facility] Comment on above: Result Comment: Canc elled via OM: MD Ordered Performed By: #### L 100.0500, L500.2500 ####[facility] [address] [place], [address] BUN/CRE Normal 10-20 [facility] Comment on above: Result Comment: Canc elled via OM: MD Ordered Performed By: #### L 100.0500, L500.2500 ####[facility] [address] [place], [address] Calcium Normal 7.6-11.0 [facility] Comment on above: Result Comment: Canc elled via OM: MD Ordered Performed By: #### L 100.0500, L500.2500 ####[facility] [address] [place], [address] CL Normal 98-108 [facility] Comment on above: Result Comment: Canc elled via OM: MD Ordered Performed By: #### L 100.0500, L500.2500 ####[facility] [address] [place], [address] CO2 Normal 21.0-32.0 [facility] Comment on above: Result Comment: Canc elled via OM: MD Ordered Performed By: #### L 100.0500, L500.2500 ####[facility] [address] [place], [address] CREAT,SERUM Normal 0.70-1.20 [facility] Comment on above: Result Comment: Canc elled via OM: MD Ordered Performed By: #### L 100.0500, L500.2500 ####[facility] [address] [place], [address] eGFR Normal >60 [facility] Comment on above: Result Comment: Canc elled via OM: MD Ordered Performed By: #### L 100.0500, L500.2500 ####[facility] [address] [place], [address] GAP Normal 5-15 [facility] Comment on above: Result Comment: Canc elled via OM: MD Ordered Performed By: #### L 100.0500, L500.2500 ####[facility] [address] [place], [address] GLU Normal 70-99 [facility] Comment on above: Result Comment: Canc elled via OM: MD Ordered Performed By: #### L 100.0500, L500.2500 ####[facility] [address] [place], [address] Potassium Normal 3.3-5.1 [facility] Comment on above: Result Comment: Canc elled via OM: MD Ordered Performed By: #### L 100.0500, L500.2500 ####[facility] [address] [place], [address] Basic Metabolic Profile (BMP) Normal 133-145 [facility] Comment on above: Result Comment: Canc elled via OM: MD Ordered Performed By: #### L 100.0500, L500.2500 ####[facility] [address] [place], [address] CBC-Complete Blood Cnt No Di ffon 11-05-2024 Erythrocyte distribution width (RBC) [Ratio] 12.1 % Normal 11.6-14.6 [facility] Comment on above: Performed By: #### L 100.0500, L500.2500 ####[facility] [address] [place], [address] Hematocrit (Bld) [Volume fraction] 52.8 % High 37-47 [facility] Comment on above: Performed By: #### L 100.0500, L500.2500 ####[facility] [address] [place], [address] Hemoglobin (Bld) [Mass/Vol] 17.5 g/dL High 12.0-15.0 [facility] Comment on above: Performed By: #### L 100.0500, L500.2500 ####[facility] [address] [place], [address] MCH (RBC) [Entitic mass] 29.9 pg Normal 27.0-32.0 [facility] Comment on above: Performed By: #### L 100.0500, L500.2500 ####[facility] [address] [place], [address] MCHC (RBC) [Mass/Vol] 33.1 g/dL Normal 32-36 [facility] Comment on above: Performed By: #### L 100.0500, L500.2500 ####[facility] [address] [place], [address] MCV (RBC) [Entitic vol] 90.3 fL Normal 81-99 [facility] Comment on above: Performed By: #### L 100.0500, L500.2500 ####[facility] [address] [place], [address] Platelet mean volume (Bld) [Entitic vol] 10.3 fL Normal 6.2-12.0 [facility] Comment on above: Performed By: #### L 100.0500, L500.2500 ####[facility] [address] [place], [address] Platelets (Bld) [#/Vol] 342 10*3/uL Normal 150-450 [facility] Comment on above: Performed By: #### L 100.0500, L500.2500 ####[facility] [address] [place], [address] RBC (Bld) [#/Vol] 5.85 10*6/uL High 4.2-5.4 [facility] Comment on above: Performed By: #### L 100.0500, L500.2500 ####[facility] [address] [place], [address] RDW SD 40.9 fl Normal 35.1-43.9 [facility] Comment on above: Performed By: #### L 100.0500, L500.2500 ####[facility] [address] [place], [address] WBC (Bld) [#/Vol] 12.9 10*3/uL High 4.4-11.0 [facility] Comment on above: Performed By: #### L 100.0500, L500.2500 ####[facility] [address] [place], [address] Erythropoietinon 11-05-2024 ERYTHROPOIETIN 2.1 mIU/mL Low 2.6-18.5 [facility] Comment on above: Result Comment: Mingly DxI 800 Immunoassay SystemValues obtained with different assay methods or kits cannotbe used interchangeably. Results cannot be interpreted asabsolute evidence of the presence or absence of malignantdisease.Performed at: [place] [id number] Director: Dl Campuzano PhD, Phone: [phone] Performed By: #### L 0193.5861 ####[facility] [address] [place], [address] 12 Lead EKGon 11-04-2024 12 Lead EKG Normal [facility] 12 Lead EKG Normal [facility] Absolute lymphocyte countOrd ered By: Luis Ravi on 11-04-2024 Lymphocytes Auto (Unsp spec) [#/Vol] 3.01 10*3/uL 0.83-4.51 [facility] Absolute neutrophil countOrd ered By: Luis Ravi on 11-04-2024 Neutrophils (Bld) [#/Vol] 7.9 10*3/uL High 2.0-7.7 [facility] Activated partial thrombopla stin time (aPTT) in platelet poor plasma by coagulation aOrdered By: Law Jayce on 11-04-2024 aPTT Coag (PPP) [Time] 27.0 s 24.1-36.2 [facility] Automated lymphocyte count a s percentage of total leukocytesOrdered By: Luis Ravi on 11-04-2024 Lymphocytes/100 WBC Auto (Unsp spec) 24.9 % 19-41 [facility] Basophil percentageOrdered B y: Luis Ravi on 11-04-2024 Basophils/100 WBC (Bld) 0.4 % 0-1 [facility] CBC W/Diff, Automatedon Absolute Lymph 3.01 X10 3/uL Normal 0.83-4.51 [facility] Comment on above: Performed By: #### L 100.0100 ####[facility] [address] [place], [address] Absolute Neut 7.9 X10 3/uL High 2.0-7.7 [facility] Comment on above: Performed By: #### L 100.0100 ####[facility] [address] [place], [address] Basophils/100 WBC (Bld) 0.4 % Normal 0-1 [facility] Comment on above: Performed By: #### L 100.0100 ####[facility] [address] [place], [address] Eosinophils/100 WBC (Bld) 0.6 % Normal 0-5 [facility] Comment on above: Performed By: #### L 100.0100 ####[facility] [address] [place], [address] Erythrocyte distribution width (RBC) [Ratio] 12.8 % Normal 11.6-14.6 [facility] Comment on above: Performed By: #### L 100.0100 ####[facility] [address] [place], [address] Hematocrit (Bld) [Volume fraction] 54.0 % High 37-47 [facility] Comment on above: Performed By: #### L 100.0100 ####[facility] [address] [place], [address] Hemoglobin (Bld) [Mass/Vol] 17.7 g/dL High 12.0-15.0 [facility] Comment on above: Performed By: #### L 100.0100 ####[facility] [address] [place], [address] IG% 0.200 Normal 0.0-0.9 [facility] Comment on above: Result Comment: IG% - Immature Granulocytes (promyelocytes, myelocytes andmetamyelocytes) > 1% indicates that a LEFT SHIFT is Present. Performed By: #### L 100.0100 ####[facility] [address] [place], [address] Lymphocytes/100 WBC (Bld) 24.9 % Normal 19-41 [facility] Comment on above: Performed By: #### L 100.0100 ####[facility] [address] [place], [address] MCH (RBC) [Entitic mass] 29.8 pg Normal 27.0-32.0 [facility] Comment on above: Performed By: #### L 100.0100 ####[facility] [address] [place], [address] MCHC (RBC) [Mass/Vol] 32.8 g/dL Normal 32-36 [facility] Comment on above: Performed By: #### L 100.0100 ####[facility] [address] [place], [address] MCV (RBC) [Entitic vol] 91.1 fL Normal 81-99 [facility] Comment on above: Performed By: #### L 100.0100 ####[facility] [address] [place], [address] Monocytes/100 WBC (Bld) 8.2 % Normal 0-10 [facility] Comment on above: Performed By: #### L 100.0100 ####[facility] [address] [place], [address] Neutrophils/100 WBC (Bld) 65.7 % Normal 47-70 [facility] Comment on above: Performed By: #### L 100.0100 ####[facility] [address] [place], [address] Nucleated RBC (Bld) [#/Vol] 0 10*3/uL Normal 0-5 [facility] Comment on above: Performed By: #### L 100.0100 ####[facility] [address] [place], [address] Platelet mean volume (Bld) [Entitic vol] 10.2 fL Normal 6.2-12.0 [facility] Comment on above: Performed By: #### L 100.0100 ####[facility] [address] [place], [address] Platelets (Bld) [#/Vol] 377 10*3/uL Normal 150-450 [facility] Comment on above: Performed By: #### L 100.0100 ####[facility] [address] [place], [address] RBC (Bld) [#/Vol] 5.93 10*6/uL High 4.2-5.4 [facility] Comment on above: Performed By: #### L 100.0100 ####[facility] [address] [place], [address] RDW SD 43.2 fl Normal 35.1-43.9 [facility] Comment on above: Performed By: #### L 100.0100 ####[facility] [address] [place], [place], [address] WBC (Bld) [#/Vol] 12.1 10*3/uL High 4.4-11.0 [facility] Comment on above: Performed By: #### L 100.0100 ####[facility] [address] [place], [address] Consultation - Cardiologyon 11-04-2024 Consultation - Cardiology Normal [facility] Consultation - Oncology IPon 11-04-2024 Consultation - Oncology IP Normal [facility] Eosinophil percentageOrdered By: Luis Ravi on 11-04-2024 Eosinophils/100 WBC (Bld) 0.6 % 0-5 [facility] Erythrocyte distribution wid th ratioOrdered By: Luis Ravi on 11-04-2024 Erythrocyte distribution width (RBC) [Ratio] 12.8 % 11.6-14.6 [facility] Erythrocyte distribution wid th standard deviationOrdered By: Luis Ravi on 11-04-2024 Erythrocyte distribution width (RBC) [Ratio] 43.2 fl 35.1-43.9 [facility] H AND P Exam - Hospitaliston 11-04-2024 H&P Exam - Hospitalist Normal [facility] Hematocrit Auto (Bld) [Volum e fraction]Ordered By: Luis Ravi on 11-04-2024 Hematocrit (Bld) [Volume fraction] 54.0 % High 37-47 [facility] Hemoglobin measurementOrdere d By: Luis Ravi on 11-04-2024 Hemoglobin (Bld) [Mass/Vol] 17.7 g/dL High 12.0-15.0 [facility] Immature granulocytes/100 WB C Auto (Bld)Ordered By: Luis Ravi on 11-04-2024 Immature granulocytes/100 WBC (Bld) 0.200 % 0.0-0.9 [facility] Comment on above: IG% - Immature Granu locytes (promyelocytes, myelocytes and metamyelocytes) > 1% indicates that a LEFT SHIFT is Present. JAK2 Mutation Analysison JAK2 COMMENT Comment Normal . [facility] Comment on above: Result Comment: Tech nical Component performed at [facility] RTPProfessional Component performed by:Lisbet Price, PhD, FACMGDirector, Molecular OncologyGaebler Children'S Center [id number], [address] [facility] [phone] test was developed and its performance characteristicsdetermined by [facility]. It has not been cleared orapproved by the Food and Drug Administration.Performed at: [facility] [id number] [facility], [place], [place] [id number] Director: Neil Campos [facility], Phone: [phone] at: [facility] [id number], [facility], [place] [id number] Director: Neil Campos [facility], Phone: [phone] Performed By: #### L 3440.5000 ####[facility] [address] [place], [place], [id number] JAK2 COMMENT 2 Comment Normal . [facility] Comment on above: Result Comment: JAK2 is a cytoplasmic tyrosine kinase with a connell role insignal transduction from multiple hematopoietic growthfactor receptors. A point mutation within exon 14 of theJAK2 gene ([id number]) encoding a valine to phenylalaninesubstitution at position 617 of the JAK2 protein (V617F)has been identified in most patients with polycythemiavera, and in about half of those with either essentialthrombocythemia or idiopathic myelofibrosis. The V617F hasalso been detected, although infrequently, in other myeloiddisorders such as chronic myelomonocytic leukemia andchronic neutrophilic luekemia. V617F is an acquiredmutation that alters a highly conserved valine present inthe negative regulatory JH2 domain of the JAK2 proteinand is predicted to dysregulate kinase activity.Methodology:Total genomic DNA was extracted and subjected to TaqManreal-time PCR amplification/detection. Two amplificationproducts per sample were monitored by real-time PCR usingprimers/probes specific to JAK2 wild type (WT) and JKP6ttpgav V617F. The [employer] Absolute Quantitation softwarewill compare the patient specimen valuse to the standardcurves and generate percent values for wild type andmutant type. In vitro studies have indicated that thisassay has an analytical sensitivity of 1%.References:Solo EJ, Roger LM, Macho PJ, et al. Acquiredmutation of the tyrosine kinase JAK2 in humanmyeloproliferative disorders. Lancet. 2005 Jun 19;365(0414):4740-3634. Tong Bolden, Geraldo V, Adelina Curry JP. Aunique clonal JAK2 mutation leading to constitutivesignaling causes polycythaemia vera. Nature. 2005 Jul 29;079(6111):8652-7337.Maryann R, Aly F, Joseph , et al. A otfo-wr-xpwrzvyn mutation of JAK2 in myeloproliferative disorders.N Engl J Med. 2005 Jul 29; 35217):6528-5646. Performed By: #### L 3440.5000 ####[facility] [address] [place], [place], [phone] JAK2 MUT QUAL Comment Normal . [facility] Comment on above: Result Comment: Resu lt: NEGATIVE for the JAK2 V617F mutation.Interpretation: The G to T nucleotide change encoding [id number] mutation was not detected. This result does not ruleout the presence of the JAK2 mutation at a level below thesensitivity of detection of this assay, or the presence ofother mutations within JAK2 not detected by this assay.This result does not rule out a diagnosis of polycythemiavera, essential thrombocythemia or idiopathicmyelofibrosis as the V617F mutation is not detected inall patients with these disorders. Performed By: #### L 0040.5000 ####[facility] [address] [place], [address] L501.4021on 11-04-2024 Trop T High Sen 26 ng/L High <=14 [facility] Comment on above: Order Comment: CIARA Perez PREVIOUS SPECIMEN REJECTED DUE TOHEMOLYSIS. 11/04/24 Comfort Garcia. Performed By: #### L 501.4021 ####[facility] [address] [place], [place], [id number] MCV (mean corpuscular volume ) determinationOrdered By: Luis Ravi on 11-04-2024 MCV (RBC) [Entitic vol] 91.1 fL 81-99 [facility] Mean corpuscular hemoglobin (MCH) determinationOrdered By: Luis Ravi on 11-04-2024 MCH (RBC) [Entitic mass] 29.8 pg 27.0-32.0 [facility] Mean corpuscular hemoglobin concentration (MCHC) determinationOrdered By: Luis Ravi on 11-04-2024 MCHC (RBC) [Mass/Vol] 32.8 g/dL 32-36 [facility] Mean platelet volume determi nationOrdered By: Luis Ravi on 11-04-2024 Platelet mean volume (Bld) [Entitic vol] 10.2 fL 6.2-12.0 [facility] Monocyte percentageOrdered B y: Luis Ravi on 11-04-2024 Monocytes/100 WBC (Bld) 8.2 % 0-10 [facility] Neutrophil percentageOrdered By: Luis Ravi on 11-04-2024 Neutrophils/100 WBC (Bld) 65.7 % 47-70 [facility] Nucleated red blood cell per centageOrdered By: Luis Ravi on 11-04-2024 Nucleated RBC/100 WBC (Bld) [Ratio] 0 % 0-5 [facility] Partial Thromboplast Timeon 11-04-2024 aPTT Coag (Bld) [Time] 27.0 s Normal 24.1-36.2 [facility] Comment on above: Performed By: #### L 300.8180 ####[facility] [address] [place], [address] Platelet countOrdered By: Aurelio Ravi on 11-04-2024 Platelets (Bld) [#/Vol] 377 10*3/uL 150-450 [facility] ,Urineon 11-04-2024 Beta HCG ( test) Ql (U) Negative Normal [facility] Comment on above: Result Comment: Very dilute urine specimens, as indicated by a low specificgravity, may not contain customer success representative levels of hCG.If is still suspected, a first morning urinespecimen should be collected 48 hours later and tested. Performed By: #### L 400.1640 ####[facility] [address] [place], [place], [phone] RBC Auto (Bld) [#/Vol]Ordere d By: Luis Ravi on 11-04-2024 RBC (Bld) [#/Vol] 5.93 10*6/uL High 4.2-5.4 [facility] Serum or plasma erythropoiet in (EPO) measurement (units/volume)Ordered By: Lois Domingo on 11-04-2024 Erythropoietin (EPO) Qn 2.1 mIU/mL Low 2.6-18.5 [facility] Comment on above: Lab42 el DxI 800 Immunoassay SystemValues obtained with different assay methods or kits cannotbe used interchangeably. Results cannot be interpreted asabsolute evidence of the presence or absence of malignantdisease.Performed at: [employer] [id number] Director: Dl Campuzano PhD, Phone: [phone] Troponin T HS 2 HRon 025 Trop T High Sen 31 ng/L High <=14 [facility] Comment on above: Performed By: #### L 499.0042 ####[facility] [address] [place], [address] Trop T High Sen Normal <=14 [facility] Comment on above: Result Comment: WAS DRAWN ON PCU UNDER PCU DR ORDER Performed By: #### L 499.0042 ####[facility] [address] [place], [place], [phone] Troponin T HS 4 HRon 025 Trop T High Sen 48 ng/L High <=14 [facility] Comment on above: Result Comment: Hemo lysis present, Results??could be affected.?? Performed By: #### L 499.0043 ####[facility] [address] [place], [place], [phone] Trop T High Sen Normal <=14 [facility] Comment on above: Result Comment: Canc elled via OM: Order cancelled - Patient discharged Performed By: #### L 499.0043 ####[facility] [address] [place], [place], [phone] Troponin T.cardiac [Mass/vol ume] in Serum or Plasma by High sensitivity methodOrdered By: Lois Domingo on 11-04-2024 Troponin T.cardiac High sensitivity method [Mass/Vol] 48 ng/L High <14 [facility] Comment on above: Hemolysis present, R esults could be affected. Troponin T.cardiac High sensitivity method [Mass/Vol] 31 ng/L High <14 [facility] Troponin T.cardiac [Mass/vol ume] in Serum or Plasma by High sensitivity methodOrdered By: Luis Ravi on 11-04-2024 Troponin T.cardiac High sensitivity method [Mass/Vol] 26 ng/L High <14 [facility] Comment on above: Delta: < 6 on -2039 Urine testOrdered By: Law Eduardo on 11-04-2024 HCG ( test) Ql (U) Negative [facility] Comment on above: Very dilute urine sp ecimens, as indicated by a low specificgravity, may not contain customer success representative levels of hCG. If is still suspected, a first morning urinespecimen should be collected 48 hours later and tested. White blood cell (WBC) count Ordered By: Luis Ravi on 11-04-2024 WBC (Bld) [#/Vol] 12.1 10*3/uL High 4.4-11.0 [facility] Anion gap in Serum or Plasma Ordered By: Luis Ravi on 11-03-2024 Anion gap [Moles/Vol] 19 mmol/L High 5-15 [facility] BUN/creatinine ratioOrdered By: Luis Ravi on 11-03-2024 Urea nitrogen/Creatinine [Mass ratio] 31.0 mg/mg High 10-20 [facility] Basic Metabolic Profile (BMP )on 11-03-2024 BUN/CRE 31.0 RATIO High - [facility] Comment on above: Performed By: #### L 500.2500 ####[facility] [address] [place], [address] Calcium [Mass/Vol] 10.2 mg/dL Normal 7.6-11.[address] [facility] Comment on above: Performed By: #### L 500.2500 ####[facility] [address] [place], [address] Chloride [Moles/Vol] 99 mmol/L Normal 98-108 [facility] Comment on above: Performed By: #### L 500.2500 ####[facility] [address] [place], [address] CO2 [Moles/Vol] 19.6 mmol/L Low 21.0-32.0 [facility] Comment on above: Performed By: #### L 500.2500 ####[facility] [address] [place], [address] Creatinine [Mass/Vol] 0.69 mg/dL Low 0.70-1.20 [facility] Comment on above: Performed By: #### L 500.2500 ####[facility] [address] [place], [address] ECRCL 105.73 ml/min Normal 50-250 [facility] Comment on above: Performed By: #### L 500.2500 ####[facility] [address] [place], [address] GAP 19 High 5-15 [facility] Comment on above: Performed By: #### L 500.2500 ####[facility] [address] [place], [address] GFR/1.73 sq M.predicted among non-blacks MDRD (S/P/Bld) [Vol rate/Area] 112 mL/min/{1.73_m2} Normal >60 [facility] Comment on above: Result Comment: mL/m in/1.73m2 CKD-EPI Creatinine Equation (2020) Performed By: #### L 500.2500 ####[facility] [address] [place], [address] Glucose [Mass/Vol] 122 mg/dL High 70-[address] [facility] Comment on above: Performed By: #### L 500.2500 ####[facility] [address] [place], [address] Potassium [Moles/Vol] 4.0 mmol/L Normal 3.3-5.1 [facility] Comment on above: Result Comment: Hemo lysis present, Results??could be affected.?? Performed By: #### L 500.2500 ####[facility] [address] [place], [address] Sodium [Moles/Vol] 138 mmol/L Normal 133-[address] [facility] Comment on above: Performed By: #### L 500.2500 ####[facility] [address] [place], [address] Urea nitrogen [Mass/Vol] 21 mg/dL High 4-19 [facility] Comment on above: Performed By: #### L 500.2500 ####[facility] [address] [place], [address] Bilirubin Test strip Ql (U)O rdered By: Lois Domingo on 11-03-2024 Bilirubin Ql (U) Negative Negative [facility] CBC W/Diff, Automatedon 08-0 Hematocrit (Bld) [Volume fraction] 58.5 % High 37-47 [facility] Comment on above: Order Comment: CRITI MONICA VALUE CALLED TO PATRICK MORENO11/03/24 0720 Елена Lewis.RESULTS READ BACK BY SAME. Performed By: #### L 100.0100 ####[facility] [address] [place], [address] Absolute Lymph 2.41 X10 3/uL Normal 0.83-4.51 [facility] Comment on above: Order Comment: CRITI MONICA VALUE CALLED TO PATRICK MORENO11/03/24 0720 Елена Lewis.RESULTS READ BACK BY SAME. Performed By: #### L 100.0100 ####[facility] [address] [place], [address] Absolute Neut 13.7 X10 3/uL High 2.0-7.7 [facility] Comment on above: Order Comment: CRITI MONICA VALUE CALLED TO PATRICK MORENO11/03/24 0720 Елена Lewis.RESULTS READ BACK BY SAME. Performed By: #### L 100.0100 ####[facility] [address] [place], [address] Basophils/100 WBC (Bld) 0.5 % Normal 0-1 [facility] Comment on above: Order Comment: CRITI MONICA VALUE CALLED TO PATRICK HOOVERTLER11/03/2420 Елена Lewis.RESULTS READ BACK BY SAME. Performed By: #### L 100.0100 ####[facility] [address] [place], [address] Eosinophils/100 WBC (Bld) 0.3 % Normal 0-5 [facility] Comment on above: Order Comment: CRITI MONICA VALUE CALLED TO PATRICK HOOVERTLER11/03/24 0720 Елена Lewis.RESULTS READ BACK BY SAME. Performed By: #### L 100.0100 ####[facility] [address] [place], [address] Erythrocyte distribution width (RBC) [Ratio] 12.9 % Normal 11.6-14.6 [facility] Comment on above: Order Comment: CRITI MONICA VALUE CALLED TO PATRICK PEOPLES 0720 Елена Lewis.RESULTS READ BACK BY SAME. Performed By: #### L 100.0100 ####[facility] [address] [place], [address] Hemoglobin (Bld) [Mass/Vol] 19.2 g/dL Invalid Interpretation Code 12.0-15.0 [facility] Comment on above: Order Comment: CRITI MONICA VALUE CALLED TO PATRICK GQCLVEM48 0720 Елена Lewis.RESULTS READ BACK BY SAME. Performed By: #### L 100.0100 ####[facility] [address] [place], [address] IG% 0.500 Normal 0.0-0.9 [facility] Comment on above: Order Comment: CRITI MONICA VALUE CALLED TO PATRICK MORENO11/03/24 0720 Елена Lewis.RESULTS READ BACK BY SAME. Result Comment: IG% - Immature Granulocytes (promyelocytes, myelocytes andmetamyelocytes) > 1% indicates that a LEFT SHIFT is Present. Performed By: #### L 100.0100 ####[facility] [address] [place], [address] Lymphocytes/100 WBC (Bld) 13.7 % Low 19-41 [facility] Comment on above: Order Comment: CRITI MONICA VALUE CALLED TO PATRICK HOOVERTLER08 0720 Елена Lewis.RESULTS READ BACK BY SAME. Performed By: #### L 100.0100 ####[facility] [address] [place], [address] MCH (RBC) [Entitic mass] 29.9 pg Normal 27.0-32.0 [facility] Comment on above: Order Comment: CRITI MONICA VALUE CALLED TO PATRICK MORENO08 0720 Елена Joshua.RESULTS READ BACK BY SAME. Performed By: #### L 100.0100 ####[facility] [address] [place], [address] MCHC (RBC) [Mass/Vol] 32.8 g/dL Normal 32-36 [facility] Comment on above: Order Comment: CRITI MONICA VALUE CALLED TO PATRICK MORENO08 0720 Елена Lewis.RESULTS READ BACK BY SAME. Performed By: #### L 100.0100 ####[facility] [address] [place], [address] MCV (RBC) [Entitic vol] 91.1 fL Normal 81-99 [facility] Comment on above: Order Comment: CRITI MONICA VALUE CALLED TO PATRICK MORENO11/03/2420 Елена Lewis.RESULTS READ BACK BY SAME. Performed By: #### L 100.0100 ####[facility] [address] [place], [address] Monocytes/100 WBC (Bld) 7.3 % Normal 0-10 [facility] Comment on above: Order Comment: CRITI MONICA VALUE CALLED TO PATRICK MORENO11/03/2420 Елена Lewis.RESULTS READ BACK BY SAME. Performed By: #### L 100.0100 ####[facility] [address] [place], [address] Neutrophils/100 WBC (Bld) 77.7 % High 47-70 [facility] Comment on above: Order Comment: CRITI MONICA VALUE CALLED TO PATRICK MORENO11/03/2420 Елена Lewis.RESULTS READ BACK BY SAME. Performed By: #### L 100.0100 ####[facility] [address] [place], [address] Nucleated RBC (Bld) [#/Vol] 0 10*3/uL Normal 0-5 [facility] Comment on above: Order Comment: CRITI MONICA VALUE CALLED TO PATRICK MORENO11/03/2420 Елена Lewis.RESULTS READ BACK BY SAME. Performed By: #### L 100.0100 ####[facility] [address] [place], [address] Platelet mean volume (Bld) [Entitic vol] 10.3 fL Normal 6.2-12.0 [facility] Comment on above: Order Comment: CRITI MONICA VALUE CALLED TO PATRICK MORENO11/03/2420 Елена Lewis.RESULTS READ BACK BY SAME. Performed By: #### L 100.0100 ####[facility] [address] [place], [address] Platelets (Bld) [#/Vol] 371 10*3/uL Normal 150-450 [facility] Comment on above: Order Comment: CRITI MONICA VALUE CALLED TO PATRICK MORENO11/03/24719 Елена Lewis.RESULTS READ BACK BY SAME. Performed By: #### L 100.0100 ####[facility] [address] [place], [address] RBC (Bld) [#/Vol] 6.42 10*6/uL High 4.2-5.4 [facility] Comment on above: Order Comment: CRITI MONICA VALUE CALLED TO PATRICK MORENO11/03/2420 Елена Lewis.RESULTS READ BACK BY SAME. Performed By: #### L 100.0100 ####[facility] [address] [place], [address] RDW SD 43.6 fl Normal 35.1-43.9 [facility] Comment on above: Order Comment: CRITI MONICA VALUE CALLED TO PATRICK MORENO11/03/2420 Елена Lewis.RESULTS READ BACK BY SAME. Performed By: #### L 100.0100 ####[facility] [address] [place], [address] WBC (Bld) [#/Vol] 17.6 10*3/uL High 4.4-11.0 [facility] Comment on above: Order Comment: CRITI MONICA VALUE CALLED TO PATRICK MORENO11/03/24719 Елена Lewis.RESULTS READ BACK BY SAME. Performed By: #### L 100.0100 ####[facility] [address] [place], [address] Carbon dioxide, total [Moles /volume] in Central venous bloodOrdered By: Luis Ravi on 11-03-2024 CO2 [Moles/Vol] 19.6 mmol/L Low 21.0-32.0 [facility] Chloride assayOrdered By: Aurelio Ravi on 11-03-2024 Chloride [Moles/Vol] 99 mmol/L 98-108 [facility] Glomerular filtration rate ( GFR) estimation/1.73 sq m using serum, plasma, or whole bOrdered By: Luis Ravi on 11-03-2024 GFR/1.73 sq M.predicted among non-blacks MDRD (S/P/Bld) [Vol rate/Area] 112 mL/min/{1.73_m2} >60 [facility] Comment on above: mL/min/1.73m2 CKD-EP I Creatinine Equation (2020) Hyaline casts LM.LPF (Urine sed) [#/Area]Ordered By: Lois Domingo on 11-03-2024 Hyaline casts (Urine sed) [#/Area] 0 /[LPF] 0-5 [facility] Ketones Test strip Ql (U)Ord ered By: Lois Domingo on 11-03-2024 Ketones Ql (U) Negative Negative [facility] Microscopic analysis of urin e for red blood cells (RBC)Ordered By: Lois Domingo on 11-03-2024 Microscopic analysis of urine for red blood cells (RBC) 0 SEEN /hpf 0-5 [facility] Mucus LM Ql (Urine sed)Order ed By: Lois Domingo on 11-03-2024 Mucus Ql (Urine sed) 0 SEEN /hpf [facility] Nitrite Test strip Ql (U)Ord ered By: Lois Domingo on 11-03-2024 Nitrite Ql (U) Negative Negative [facility] Potassium measurement (mass/ volume)Ordered By: Luis Ravi on 11-03-2024 Potassium (Unsp spec) [Mass/Vol] 4.0 mmol/L 3.3-5.1 [facility] Comment on above: Hemolysis present, R esults could be affected. Protein Test strip Ql (U)Ord ered By: Lois Domingo on 11-03-2024 Protein Ql (U) 30 mg/dl High Negative [facility] Serum creatinine measurement (mass/volume)Ordered By: Luis Ravi on 11-03-2024 Creatinine [Mass/Vol] 0.69 mg/dL Low 0.70-1.20 [facility] Serum glucose measurement (m ass/volume)Ordered By: Luis Ravi on 11-03-2024 Glucose [Mass/Vol] 122 mg/dL High 70-[address] [facility] Serum or plasma calcium sasha urement (mass/volume)Ordered By: Luis Ravi on 11-03-2024 Calcium [Mass/Vol] 10.2 mg/dL 7.6-11.[address] [facility] Serum or plasma urea nitroge n measurement (mass/volume)Ordered By: Luis Ravi on 11-03-2024 Urea nitrogen [Mass/Vol] 21 mg/dL High 4-19 [facility] Sodium levelOrdered By: Luis aRvi on 11-03-2024 Sodium [Moles/Vol] 138 mmol/L 133-[address] [facility] Squamous epithelial cells de tection in urine sediment by light microscopyOrdered By: Lois Mendozamilton on 11-03-2024 Epithelial cells.squamous LM Ql (Urine sed) 0 SEEN /hpf -10 [facility] Urinalysis, Completeon 11-03 CAST,HYALINE 0-5 SEEN Normal 0-5 [facility] Comment on above: Order Comment: CHANDLER TER SPECIMEN Performed By: #### L 400.0001 ####[facility] [address] [place], [address] BACTERIA 0 SEEN Normal None Seen [facility] Comment on above: Order Comment: CHANDLER TER SPECIMEN Performed By: #### L 400.0001 ####[facility] [address] [place], [address] EPI,SQUAMOUS 0 SEEN Normal 5- [facility] Comment on above: Order Comment: CHANDLER TER SPECIMEN Performed By: #### L 400.0001 ####[facility] [address] [place], [address] Mucus Ql (Urine sed) 0 SEEN Normal [facility] Comment on above: Order Comment: CHANDLER TER SPECIMEN Performed By: #### L 400.0001 ####[facility] [address] [place], [address] RBC 0 SEEN Normal 0-5 [facility] Comment on above: Order Comment: CHANDLER TER SPECIMEN Performed By: #### L 400.0001 ####[facility] [address] [place], [place], [id number] WBC 0 SEEN Normal 0-5 [facility] Comment on above: Order Comment: CHANDLER TER SPECIMEN Performed By: #### L 400.0001 ####[facility] [address] [place], [address] Urine clarityOrdered By: Liz marte Chayo on 11-03-2024 Clarity (U) Clear Clear [facility] Urine color determinationOrd ered By: Lois Domingo on 11-03-2024 Color (U) Yellow Yellow [facility] Urine glucose detectionOrder ed By: Lois Domingo on 11-03-2024 Glucose Ql (U) Normal mg/dl Normal [facility] Urine leukocyte esterase det ection by dipstickOrdered By: Lois Domingo on 11-03-2024 Leukocyte esterase Test strip Ql (U) Negative Negative [facility] Urine pHOrdered By: Lois cruz on 11-03-2024 pH (U) 5.0 [pH] 5.0 - 8.0 [facility] Urine sediment bacteria coun t by microscopy (number/high power field)Ordered By: Lois Domingo on 11-03-2024 Bacteria LM.HPF (Urine sed) [#/Area] 0 /[HPF] None Seen [facility] Urine specific gravity measu rementOrdered By: Lois Domingo on 11-03-2024 Specific gravity (U) [Rel density] 1.025 1.002-1.03 0 [facility] Urine urobilinogen measureme ntOrdered By: Lois Domingo on 11-03-2024 Urobilinogen Ql (U) Normal mg/dl Normal [facility] White blood cell countOrdere d By: Lois Domingo on 11-03-2024 White blood cell count 0 SEEN /hpf 0-5 [facility] Bilirubin, totalOrdered By: Luis Ravi on 11-02-2024 Bilirubin [Mass/Vol] 0.68 mg/dL 0.00-1.30 [facility] CBC W/Diff, Automatedon Absolute Lymph 2.15 X10 3/uL Normal 0.83-4.51 [facility] Comment on above: Performed By: #### L 501.5200, L501.2300, L100.0100, L500.4050 ####[facility] [address] [place], [address] Absolute Neut 12.0 X10 3/uL High 2.0-7.7 [facility] Comment on above: Performed By: #### L 501.5200, L501.2300, L100.0100, L500.4050 ####[facility] [address] [place], [address] Basophils/100 WBC (Bld) 0.4 % Normal 0-1 [facility] Comment on above: Performed By: #### L 501.5200, L501.2300, L100.0100, L500.4050 ####[facility] [address] [place], [address] Eosinophils/100 WBC (Bld) 0.3 % Normal 0-5 [facility] Comment on above: Performed By: #### L 501.5200, L501.2300, L100.0100, L500.4050 ####[facility] [address] [place], [address] Erythrocyte distribution width (RBC) [Ratio] 12.3 % Normal 11.6-14.6 [facility] Comment on above: Performed By: #### L 501.5200, L501.2300, L100.0100, L500.4050 ####[facility] [address] [place], [address] Hematocrit (Bld) [Volume fraction] 53.0 % High 37-47 [facility] Comment on above: Performed By: #### L 501.5200, L501.2300, L100.0100, L500.4050 ####[facility] [address] [place], [address] Hemoglobin (Bld) [Mass/Vol] 17.9 g/dL High 12.0-15.0 [facility] Comment on above: Performed By: #### L 501.5200, L501.2300, L100.0100, L500.4050 ####[facility] [address] [place], [address] IG% 0.300 Normal 0.0-0.9 [facility] Comment on above: Result Comment: IG% - Immature Granulocytes (promyelocytes, myelocytes andmetamyelocytes) > 1% indicates that a LEFT SHIFT is Present. Performed By: #### L 501.5200, L501.2300, L100.0100, L500.4050 ####[facility] [address] [place], [address] Lymphocytes/100 WBC (Bld) 14.2 % Low 19-41 [facility] Comment on above: Performed By: #### L 501.5200, L501.2300, L100.0100, L500.4050 ####[facility] [address] [place], [address] MCH (RBC) [Entitic mass] 30.2 pg Normal 27.0-32.0 [facility] Comment on above: Performed By: #### L 501.5200, L501.2300, L100.0100, L500.4050 ####[facility] [address] [place], [address] MCHC (RBC) [Mass/Vol] 33.8 g/dL Normal 32-36 [facility] Comment on above: Performed By: #### L 501.5200, L501.2300, L100.0100, L500.4050 ####[facility] [address] [place], [address] MCV (RBC) [Entitic vol] 89.5 fL Normal 81-99 [facility] Comment on above: Performed By: #### L 501.5200, L501.2300, L100.0100, L500.4050 ####[facility] [address] [place], [address] Monocytes/100 WBC (Bld) 5.7 % Normal 0-10 [facility] Comment on above: Performed By: #### L 501.5200, L501.2300, L100.0100, L500.4050 ####[facility] [address] [place], [address] Neutrophils/100 WBC (Bld) 79.1 % High 47-70 [facility] Comment on above: Performed By: #### L 501.5200, L501.2300, L100.0100, L500.4050 ####[facility] [address] [place], [address] Nucleated RBC (Bld) [#/Vol] 0 10*3/uL Normal 0-5 [facility] Comment on above: Performed By: #### L 501.5200, L501.2300, L100.0100, L500.4050 ####[facility] [address] [place], [address] Platelet mean volume (Bld) [Entitic vol] 10.2 fL Normal 6.2-12.0 [facility] Comment on above: Performed By: #### L 501.5200, L501.2300, L100.0100, L500.4050 ####[facility] [address] [place], [address] Platelets (Bld) [#/Vol] 345 10*3/uL Normal 150-450 [facility] Comment on above: Performed By: #### L 501.5200, L501.2300, L100.0100, L500.4050 ####[facility] [address] [place], [address] RBC (Bld) [#/Vol] 5.92 10*6/uL High 4.2-5.4 [facility] Comment on above: Performed By: #### L 501.5200, L501.2300, L100.0100, L500.4050 ####[facility] [address] [place], [address] RDW SD 40.8 fl Normal 35.1-43.9 [facility] Comment on above: Performed By: #### L 501.5200, L501.2300, L100.0100, L500.4050 ####[facility] [address] [place], [address] WBC (Bld) [#/Vol] 15.1 10*3/uL High 4.4-11.0 [facility] Comment on above: Performed By: #### L 501.5200, L501.2300, L100.0100, L500.4050 ####[facility] [address] [place], [address] Comprehensive Metabolic Prof [facility] 11-02-2024 Albumin [Mass/Vol] 4.6 g/dL Normal 3.5-5.[address] [facility] Comment on above: Performed By: #### L 501.5200, L501.2300, L100.0100, L500.4050 ####[facility] [address] [place], [address] Albumin/Globulin [Mass ratio] 1.4 {ratio} Normal 0.9-2.4 [facility] Comment on above: Performed By: #### L 501.5200, L501.2300, L100.0100, L500.4050 ####[facility] [address] [place], [address] ALK PHOS 103 U/L Normal 35-104 [facility] Comment on above: Performed By: #### L 501.5200, L501.2300, L100.0100, L500.4050 ####[facility] [address] [place], [address] ALT [Catalytic activity/Vol] 15 U/L Normal <=34 [facility] Comment on above: Performed By: #### L 501.5200, L501.2300, L100.0100, L500.4050 ####[facility] [address] [place], [address] AST [Catalytic activity/Vol] 19 U/L Normal <=31 [facility] Comment on above: Performed By: #### L 501.5200, L501.2300, L100.0100, L500.4050 ####[facility] [address] [place], [address] Bilirubin [Mass/Vol] 0.68 mg/dL Normal 0.00-1.30 [facility] Comment on above: Performed By: #### L 501.5200, L501.2300, L100.0100, L500.4050 ####[facility] [address] [place], [address] BUN/CRE 19.1 RATIO Normal 10-20 [facility] Comment on above: Performed By: #### L 501.5200, L501.2300, L100.0100, L500.4050 ####[facility] [address] [place], [address] Calcium [Mass/Vol] 9.8 mg/dL Normal 7.6-11.[address] [facility] Comment on above: Performed By: #### L 501.5200, L501.2300, L100.0100, L500.4050 ####[facility] [address] [place], [address] Chloride [Moles/Vol] 104 mmol/L Normal 98-108 [facility] Comment on above: Performed By: #### L 501.5200, L501.2300, L100.0100, L500.4050 ####[facility] [address] [place], [address] CO2 [Moles/Vol] 20.0 mmol/L Low 21.0-32.0 [facility] Comment on above: Performed By: #### L 501.5200, L501.2300, L100.0100, L500.4050 ####[facility] [address] [place], [address] Creatinine [Mass/Vol] 0.56 mg/dL Low 0.70-1.20 [facility] Comment on above: Performed By: #### L 501.5200, L501.2300, L100.0100, L500.4050 ####[facility] [address] [place], [address] ECRCL 130.27 ml/min Normal 50-250 [facility] Comment on above: Performed By: #### L 501.5200, L501.2300, L100.0100, L500.4050 ####[facility] [address] [place], [address] GAP 14 Normal 5-15 [facility] Comment on above: Performed By: #### L 501.5200, L501.2300, L100.0100, L500.4050 ####[facility] [address] [place], [address] GFR/1.73 sq M.predicted among non-blacks MDRD (S/P/Bld) [Vol rate/Area] 118 mL/min/{1.73_m2} Normal >60 [facility] Comment on above: Result Comment: mL/m in/1.73m2 CKD-EPI Creatinine Equation (2020) Performed By: #### L 501.5200, L501.2300, L100.0100, L500.4050 ####[facility] [address] [place], [address] Globulin (S) [Mass/Vol] 3.2 g/dL Normal 2.2-4.2 [facility] Comment on above: Performed By: #### L 501.5200, L501.2300, L100.0100, L500.4050 ####[facility] [address] [place], [address] Glucose [Mass/Vol] 152 mg/dL High 70-[address] [facility] Comment on above: Performed By: #### L 501.5200, L501.2300, L100.0100, L500.4050 ####[facility] [address] [place], [address] Potassium [Moles/Vol] 3.7 mmol/L Normal 3.3-5.1 [facility] Comment on above: Performed By: #### L 501.5200, L501.2300, L100.0100, L500.4050 ####[facility] [address] [place], [address] Sodium [Moles/Vol] 138 mmol/L Normal 133-[address] [facility] Comment on above: Performed By: #### L 501.5200, L501.2300, L100.0100, L500.4050 ####[facility] [address] [place], [address] T PROT 7.7 g/dL Normal 5.9-8.4 [facility] Comment on above: Performed By: #### L 501.5200, L501.2300, L100.0100, L500.4050 ####[facility] [address] [place], [address] Urea nitrogen [Mass/Vol] 11 mg/dL Normal 4-19 [facility] Comment on above: Performed By: #### L 501.5200, L501.2300, L100.0100, L500.4050 ####[facility] [address] [place], [address] Laboratory - Chemistry and C hemistry - challengeOrdered By: Luis Ravi on 11-02-2024 AST [Catalytic activity/Vol] 19 U/L <32 [facility] Magnesiumon 11-02-2024 Magnesium [Mass/Vol] 2.4 mg/dL High 1.5-2.2 [facility] Comment on above: Performed By: #### L 501.5200, L501.2300, L100.0100, L500.4050 ####[facility] [address] [place], [address] Magnesium measurement (mass/ volume)Ordered By: Luis Ravi on 11-02-2024 Magnesium (Unsp spec) [Mass/Vol] 2.4 mg/dL High 1.5-2.2 [facility] Phosphoruson 11-02-2024 Phosphate [Mass/Vol] 3.6 mg/dL Normal 2.7-4.5 [facility] Comment on above: Performed By: #### L 501.5200, L501.2300, L100.0100, L500.4050 ####[facility] [address] [place], [address] Serum globulin measurementOr dered By: Luis Ravi on 11-02-2024 Globulin (S) [Mass/Vol] 3.2 g/dL 2.2-4.2 [facility] Serum or plasma alanine quintana otransferase (ALT) measurementOrdered By: Luis Ravi on 11-02-2024 ALT [Catalytic activity/Vol] 15 U/L <35 [facility] Serum or plasma albumin sasha urement (mass/volume)Ordered By: Luis Ravi 11-02-2024 Albumin [Mass/Vol] 4.6 g/dL 3.5-5.[address] [facility] Serum or plasma albumin/glob ulin mass ratioOrdered By: Luis Ravi 11-02-2024 Albumin/Globulin [Mass ratio] 1.4 {ratio} 0.9-2.4 [facility] Serum or plasma alkaline malvin sphatase measurementOrdered By: Luis Ravi on 11-02-2024 ALP [Catalytic activity/Vol] 103 U/L 35-104 [facility] Total proteinOrdered By: Luis Ravi on 11-02-2024 Protein [Mass/Vol] 7.7 g/dL 5.9-8.[address] [facility] Absolute lymphocyte countOrd ered By: Sen Clarke on 11-01-2024 Lymphocytes Auto (Unsp spec) [#/Vol] 2.74 10*3/uL 0.83-4.51 [facility] Absolute neutrophil countOrd ered By: Sen Clarke on 11-01-2024 Neutrophils (Bld) [#/Vol] 8.9 10*3/uL High 2.0-7.7 [facility] Anion gap in Serum or Plasma Ordered By: Vee Stuart on 11-01-2024 Anion gap [Moles/Vol] 14 mmol/L 5-15 [facility] Automated lymphocyte count a s percentage of total leukocytesOrdered By: Sen Clarke on 11-01-2024 Lymphocytes/100 WBC Auto (Unsp spec) 21.5 % 19-41 [facility] BUN/creatinine ratioOrdered By: Vee Stuart on 11-01-2024 Urea nitrogen/Creatinine [Mass ratio] 13.4 mg/mg 10-20 [facility] Basic Metabolic Profile (BMP )on 11-01-2024 BUN/CRE 13.4 RATIO Normal - [facility] Comment on above: Order Comment: CIARA Perez PREVIOUS SPECIMEN REJECTED DUE TOHEMOLYSIS. 11/01/24738 Tong Pope Performed By: #### L 500.2500 ####[facility] [address] [place], [place], [address] Calcium [Mass/Vol] 9.2 mg/dL Normal 7.6-11.[address] [facility] Comment on above: Order Comment: CIARA Miller. PREVIOUS SPECIMEN REJECTED DUE TOHEMOLYSIS. 11/01/24738 Tong Mccormick. Performed By: #### L 500.2500 ####[facility] [address] [place], [address] Chloride [Moles/Vol] 106 mmol/L Normal 98-108 [facility] Comment on above: Order Comment: REDRA W. PREVIOUS SPECIMEN REJECTED DUE TOHEMOLYSIS. 11/01/24738 Tong Mccormick. Performed By: #### L 500.2500 ####[facility] [address] [place], [place], [phone] CO2 [Moles/Vol] 20.1 mmol/L Low 21.0-32.0 [facility] Comment on above: Order Comment: REDRA W. PREVIOUS SPECIMEN REJECTED DUE TOHEMOLYSIS. 11/01/24738 Tong Castañeda Jace. Performed By: #### L 500.2500 ####[facility] [address] [place], [place], [phone] Creatinine [Mass/Vol] 0.59 mg/dL Low 0.70-1.20 [facility] Comment on above: Order Comment: REDRA W. PREVIOUS SPECIMEN REJECTED DUE TOHEMOLYSIS. 11/01/24738 Tong Castañeda Jace. Performed By: #### L 500.2500 ####[facility] [address] [place], [place], [phone] ECRCL 127.93 ml/min Normal 50-250 [facility] Comment on above: Order Comment: REDRA W. PREVIOUS SPECIMEN REJECTED DUE TOHEMOLYSIS. 11/01/24738 Tong Garry Jace. Performed By: #### L 500.2500 ####[facility] [address] [place], [address] GAP 14 Normal 5-15 [facility] Comment on above: Order Comment: REDRA W. PREVIOUS SPECIMEN REJECTED DUE TOHEMOLYSIS. 11/01/24738 Tong Castañeda Jace. Performed By: #### L 500.2500 ####[facility] [address] [place], [place], [phone] GFR/1.73 sq M.predicted among non-blacks MDRD (S/P/Bld) [Vol rate/Area] 116 mL/min/{1.73_m2} Normal >60 [facility] Comment on above: Order Comment: REDRA W. PREVIOUS SPECIMEN REJECTED DUE TOHEMOLYSIS. 11/01/24738 Tong Mccormick. Result Comment: mL/m in/1.73m2 CKD-EPI Creatinine Equation (2020) Performed By: #### L 500.2500 ####[facility] [address] [place], [address] Glucose [Mass/Vol] 140 mg/dL High 70-[address] [facility] Comment on above: Order Comment: REDRA W. PREVIOUS SPECIMEN REJECTED DUE TOHEMOLYSIS. 11/01/24738 Tong Mccormick. Performed By: #### L 500.2500 ####[facility] [address] [place], [address] Potassium [Moles/Vol] 3.6 mmol/L Normal 3.3-5.1 [facility] Comment on above: Order Comment: REDRA W. PREVIOUS SPECIMEN REJECTED DUE TOHEMOLYSIS. 11/01/24738 Tong cMcormick. Performed By: #### L 500.2500 ####[facility] [address] [place], [address] Sodium [Moles/Vol] 140 mmol/L Normal 133-[address] [facility] Comment on above: Order Comment: REDRA W. PREVIOUS SPECIMEN REJECTED DUE TOHEMOLYSIS. 11/01/24738 Tong Mccormick. Performed By: #### L 500.2500 ####[facility] [address] [place], [address] Urea nitrogen [Mass/Vol] 8 mg/dL Normal 4-19 [facility] Comment on above: Order Comment: REDRA W. PREVIOUS SPECIMEN REJECTED DUE TOHEMOLYSIS. 11/01/24738 Tong Mccormick. Performed By: #### L 500.2500 ####[facility] [address] [place], [address] BUN Normal 4-19 [facility] Comment on above: Result Comment: This specimen has been REJECTED due to Laboratory criteria:Hemolyzed.NESS BURNETT has been notified of need of recollection.11/01/24736 Tong L White Performed By: #### L 100.0100, L500.2500 ####[facility] [address] [place], [address] BUN/CRE Normal 10-20 [facility] Comment on above: Result Comment: This specimen has been REJECTED due to Laboratory criteria:Hemolyzed.NESS BURNETT has been notified of need of recollection.11/01/24736 Tong L White Performed By: #### L 100.0100, L500.2500 ####[facility] [address] [place], [address] Calcium Normal 7.6-11.0 [facility] Comment on above: Result Comment: This specimen has been REJECTED due to Laboratory criteria:Hemolyzed.NESS BURNETT has been notified of need of recollection.11/01/24736 Tong L White Performed By: #### L 100.0100, L500.2500 ####[facility] [address] [place], [address] CL Normal 98-108 [facility] Comment on above: Result Comment: This specimen has been REJECTED due to Laboratory criteria:Hemolyzed.NESS BURNETT has been notified of need of recollection.11/01/24736 Tong L White Performed By: #### L 100.0100, L500.2500 ####[facility] [address] [place], [address] CO2 Normal 21.0-32.0 [facility] Comment on above: Result Comment: This specimen has been REJECTED due to Laboratory criteria:Hemolyzed.NESS BURNETT has been notified of need of recollection.11/01/24736 Tong L White Performed By: #### L 100.0100, L500.2500 ####[facility] [address] [place], [address] CREAT,SERUM Normal 0.70-1.20 [facility] Comment on above: Result Comment: This specimen has been REJECTED due to Laboratory criteria:Hemolyzed.NESS BURNETT has been notified of need of recollection.11/01/2437 Tong L White Performed By: #### L 100.0100, L500.2500 ####[facility] [address] [place], [address] eGFR Normal >60 [facility] Comment on above: Result Comment: This specimen has been REJECTED due to Laboratory criteria:Hemolyzed.NESS BURNETT has been notified of need of recollection.11/01/24736 Tong L White Performed By: #### L 100.0100, L500.2500 ####[facility] [address] [place], [address] GAP Normal 5-15 [facility] Comment on above: Result Comment: This specimen has been REJECTED due to Laboratory criteria:Hemolyzed.NESS BURNETT has been notified of need of recollection.11/01/24736 Tong L White Performed By: #### L 100.0100, L500.2500 ####[facility] [address] [place], [address] GLU Normal 70-99 [facility] Comment on above: Result Comment: This specimen has been REJECTED due to Laboratory criteria:Hemolyzed.NESS BURNETT has been notified of need of recollection.11/01/24736 Tong L White Performed By: #### L 100.0100, L500.2500 ####[facility] [address] [place], [address] Potassium Normal 3.3-5.1 [facility] Comment on above: Result Comment: This specimen has been REJECTED due to Laboratory criteria:Hemolyzed.NESS BURNETT has been notified of need of recollection.11/01/24736 Tong L White Performed By: #### L 100.0100, L500.2500 ####[facility] [address] [place], [address] Basic Metabolic Profile (BMP) Normal 133-145 [facility] Comment on above: Result Comment: This specimen has been REJECTED due to Laboratory criteria:Hemolyzed.NESS BURNETT has been notified of need of recollection.11/01/24 0737 Tong Mccormick Performed By: #### L 100.0100, L500.2500 ####[facility] [address] [place], [address] Basophil percentageOrdered B y: Sen Clarke on 11-01-2024 Basophils/100 WBC (Bld) 0.3 % 0-1 [facility] CBC W/Diff, Automatedon -2024 Absolute Lymph 2.74 X10 3/uL Normal 0.83-4.51 [facility] Comment on above: Performed By: #### L 100.0100, L500.2500 ####[facility] [address] [place], [address] Absolute Neut 8.9 X10 3/uL High 2.0-7.7 [facility] Comment on above: Performed By: #### L 100.0100, L500.2500 ####[facility] [address] [place], [address] Basophils/100 WBC (Bld) 0.3 % Normal 0-1 [facility] Comment on above: Performed By: #### L 100.0100, L500.2500 ####[facility] [address] [place], [address] Eosinophils/100 WBC (Bld) 0.8 % Normal 0-5 [facility] Comment on above: Performed By: #### L 100.0100, L500.2500 ####[facility] [address] [place], [address] Erythrocyte distribution width (RBC) [Ratio] 12.0 % Normal 11.6-14.6 [facility] Comment on above: Performed By: #### L 100.0100, L500.2500 ####[facility] [address] [place], [address] Hematocrit (Bld) [Volume fraction] 47.1 % High 37-47 [facility] Comment on above: Performed By: #### L 100.0100, L500.2500 ####[facility] [address] [place], [address] Hemoglobin (Bld) [Mass/Vol] 16.2 g/dL High 12.0-15.0 [facility] Comment on above: Performed By: #### L 100.0100, L500.2500 ####[facility] [address] [place], [address] IG% 0.400 Normal 0.0-0.9 [facility] Comment on above: Result Comment: IG% - Immature Granulocytes (promyelocytes, myelocytes andmetamyelocytes) > 1% indicates that a LEFT SHIFT is Present. Performed By: #### L 100.0100, L500.2500 ####[facility] [address] [place], [address] Lymphocytes/100 WBC (Bld) 21.5 % Normal 19-41 [facility] Comment on above: Performed By: #### L 100.0100, L500.2500 ####[facility] [address] [place], [address] MCH (RBC) [Entitic mass] 30.5 pg Normal 27.0-32.0 [facility] Comment on above: Performed By: #### L 100.0100, L500.2500 ####[facility] [address] [place], [address] MCHC (RBC) [Mass/Vol] 34.4 g/dL Normal 32-36 [facility] Comment on above: Performed By: #### L 100.0100, L500.2500 ####[facility] [address] [place], [address] MCV (RBC) [Entitic vol] 88.7 fL Normal 81-99 [facility] Comment on above: Performed By: #### L 100.0100, L500.2500 ####[facility] [address] [place], [address] Monocytes/100 WBC (Bld) 7.5 % Normal 0-10 [facility] Comment on above: Performed By: #### L 100.0100, L500.2500 ####[facility] [address] [place], [address] Neutrophils/100 WBC (Bld) 69.5 % Normal 47-70 [facility] Comment on above: Performed By: #### L 100.0100, L500.2500 ####[facility] [address] [place], [address] Nucleated RBC (Bld) [#/Vol] 0 10*3/uL Normal 0-5 [facility] Comment on above: Performed By: #### L 100.0100, L500.2500 ####[facility] [address] [place], [address] Platelet mean volume (Bld) [Entitic vol] 10.4 fL Normal 6.2-12.0 [facility] Comment on above: Performed By: #### L 100.0100, L500.2500 ####[facility] [address] [place], [address] Platelets (Bld) [#/Vol] 290 10*3/uL Normal 150-450 [facility] Comment on above: Performed By: #### L 100.0100, L500.2500 ####[facility] [address] [place], [address] RBC (Bld) [#/Vol] 5.31 10*6/uL Normal 4.2-5.4 [facility] Comment on above: Performed By: #### L 100.0100, L500.2500 ####[facility] [address] [place], [address] RDW SD 39.5 fl Normal 35.1-43.9 [facility] Comment on above: Performed By: #### L 100.0100, L500.2500 ####[facility] [address] [place], [address] WBC (Bld) [#/Vol] 12.7 10*3/uL High 4.4-11.0 [facility] Comment on above: Performed By: #### L 100.0100, L500.2500 ####[facility] [address] [place], [address] Carbon dioxide, total [Moles /volume] in Central venous bloodOrdered By: Vee Stuart on 11-01-2024 CO2 [Moles/Vol] 20.1 mmol/L Low 21.0-32.0 [facility] Chloride assayOrdered By: Stan Stuart on 11-01-2024 Chloride [Moles/Vol] 106 mmol/L 98-108 [facility] Discharge Instructionon 08-0 Discharge Instruction Normal [facility] Eosinophil percentageOrdered By: Sen Clarke on 11-01-2024 Eosinophils/100 WBC (Bld) 0.8 % 0-5 [facility] Erythrocyte distribution wid th ratioOrdered By: eSn Clarke on 11-01-2024 Erythrocyte distribution width (RBC) [Ratio] 12.0 % 11.6-14.6 [facility] Erythrocyte distribution wid th standard deviationOrdered By: Sen Clarke on 11-01-2024 Erythrocyte distribution width (RBC) [Ratio] 39.5 fl 35.1-43.9 [facility] Glomerular filtration rate ( GFR) estimation/1.73 sq m using serum, plasma, or whole bOrdered By: Vee Stuart on 11-01-2024 GFR/1.73 sq M.predicted among non-blacks MDRD (S/P/Bld) [Vol rate/Area] 116 mL/min/{1.73_m2} >60 [facility] Comment on above: mL/min/1.73m2 CKD-EP I Creatinine Equation (2020) Hematocrit Auto (Bld) [Volum e fraction]Ordered By: Sen Clarke on 11-01-2024 Hematocrit (Bld) [Volume fraction] 47.1 % High 37-47 [facility] Hemoglobin measurementOrdere d By: Sen Clarke on 11-01-2024 Hemoglobin (Bld) [Mass/Vol] 16.2 g/dL High 12.0-15.0 [facility] Immature granulocytes/100 WB C Auto (Bld)Ordered By: Sen Clarke on 11-01-2024 Immature granulocytes/100 WBC (Bld) 0.400 % 0.0-0.9 [facility] Comment on above: IG% - Immature Granu locytes (promyelocytes, myelocytes and metamyelocytes) > 1% indicates that a LEFT SHIFT is Present. MCV (mean corpuscular volume ) determinationOrdered By: Sen Clarke on 11-01-2024 MCV (RBC) [Entitic vol] 88.7 fL 81-99 [facility] Mean corpuscular hemoglobin (MCH) determinationOrdered By: Sen Clarke on 11-01-2024 MCH (RBC) [Entitic mass] 30.5 pg 27.0-32.0 [facility] Mean corpuscular hemoglobin concentration (MCHC) determinationOrdered By: Sen Clarke on 11-01-2024 MCHC (RBC) [Mass/Vol] 34.4 g/dL 32-36 [facility] Mean platelet volume determi nationOrdered By: Sen Clarke on 11-01-2024 Platelet mean volume (Bld) [Entitic vol] 10.4 fL 6.2-12.0 [facility] Monocyte percentageOrdered B y: Sen Clarke on 11-01-2024 Monocytes/100 WBC (Bld) 7.5 % 0-10 [facility] Neutrophil percentageOrdered By: Sen Clarke on 11-01-2024 Neutrophils/100 WBC (Bld) 69.5 % 47-70 [facility] Nucleated red blood cell per centageOrdered By: Sen Clarke on 11-01-2024 Nucleated RBC/100 WBC (Bld) [Ratio] 0 % 0-5 [facility] Platelet countOrdered By: Amita Clarke on 11-01-2024 Platelets (Bld) [#/Vol] 290 10*3/uL 150-450 [facility] Potassium measurement (mass/ volume)Ordered By: Vee Stuart on 11-01-2024 Potassium (Unsp spec) [Mass/Vol] 3.6 mmol/L 3.3-5.1 [facility] RBC Auto (Bld) [#/Vol]Ordere d By: Sen Clarke on 11-01-2024 RBC (Bld) [#/Vol] 5.31 10*6/uL 4.2-5.4 [facility] Serum creatinine measurement (mass/volume)Ordered By: Vee Stuart on 11-01-2024 Creatinine [Mass/Vol] 0.59 mg/dL Low 0.70-1.20 [facility] Serum glucose measurement (m ass/volume)Ordered By: Vee Stuart on 11-01-2024 Glucose [Mass/Vol] 140 mg/dL High 70-[address] [facility] Serum or plasma calcium sasha urement (mass/volume)Ordered By: Vee Stuart on 11-01-2024 Calcium [Mass/Vol] 9.2 mg/dL 7.6-11.[address] [facility] Serum or plasma urea nitroge n measurement (mass/volume)Ordered By: Vee Stuart on 11-01-2024 Urea nitrogen [Mass/Vol] 8 mg/dL 4-19 [facility] Sodium levelOrdered By: Aron Stuart on 11-01-2024 Sodium [Moles/Vol] 140 mmol/L 133-[address] [facility] White blood cell (WBC) count Ordered By: Sen Clarke on 11-01-2024 WBC (Bld) [#/Vol] 12.7 10*3/uL High 4.4-11.0 [facility] Brain without Contraston Brain without Contrast Normal [facility] Calculated very low density lipoprotein (VLDL) cholesterol measurementOrdered By: Nehemiah Medrano on 10-31-2024 Calculated very low density lipoprotein (VLDL) cholesterol measurement 40 mg/dL 5-40 [facility] Echo Transesophageal (SUNDAY)on 10-31-2024 Echo Transesophageal (SUNDAY) Normal [facility] Echocardiogram study reportO rdered By: Law Eduardo on 10-31-2024 Study report [facility] [address] [place] [address] Echo Complete 10/31/24 1012 MR#: [id number] Acct: [id number] Name: JAYDA OSHEA Rep #:[id number] : 1985 39 From: Law Roque Attending [...] Date Dictated: 10/31/24 1012 Date Transcribed: 10/31/241658 Pastoral Worker: Signed [facility] Work Phone: Electrocardiogram reportOrde red By: Law Eduardo on 10-31-2024 EKG study [facility] [address] [place] [address] 12 Lead EKG 10/30/242056 MR#: [id number] Acct: [id number] Name: AJYDA OSHEA Rep #:[id number] : 1985 39 From: Law Eduardo MD Attending Dr: Dr. Sen Clarke MD Status: ADM IN Ordering Dr: Domenico Silva DO Date: 0 10/30/24 Location: [facility] Sex: F C Admitted: 10/30/24 Test Reason : STROKE Blood Pressure : */* mmHG Vent. Rate : 73 BPM Atrial Rate : 73 BPM P-R Int : 152 ms QRS Dur : 94 ms QT Int : 428 ms P-R-T Axes : 33 26 51 degrees QTcB Int : 471 ms Normal sinus rhythm Normal ECG Confirmed by LAW EDUARDO MD ([id number]), editor publications VELIA VILLA ([id number]) on 58:43:28 AM Referred By: Confirmed By: LAW EDUARDO MD 10/31/24 0843 Date _ Law Eduardo MD CC: Dr. Domenico Silva, DO; Dr. Sen Clarke MD; No Primary Care Physician ~ Signed [facility] Work Phone: Folates,Serum (Folic Acid)on 10-31-2024 FOLATES,SERUM 7.69 ng/mL Normal 4.60-34.80 [facility] Comment on above: Result Comment: Hemo lysis, Results will be affected, Requires Recollection. Performed By: #### L 505.5000, L501.9985, L501.9520, L506.0200 ####[facility] [address] [place], [place], [address] Hemoglobin A1con 10-31-2024 HbA1c (Bld) [Mass fraction] 5.4 % Normal <=5.6 [facility] Comment on above: Result Comment: Norm al < 5.7 % Prediabetic 5.7 - 6.4 % Diabetic >or= 6.5 % Please note range changes. Performed By: #### L 505.5000, L501.9985, L501.9520, L506.0200 ####[facility] [address] [place], [place], [address] LDL calc ser/plasOrdered By: Nehemiah Medrano on 10-31-2024 Cholesterol in LDL [Mass/Vol] 108 mg/dL [facility] Comment on above: Pdzclgynik=689-160 m g/dL & Higher Qtoh=062 mg/dL or greaterFriedwald Equation for LDL-C Lipid Profileon 10-31-2024 CHOL:HDL 3.43 Normal [facility] Comment on above: Performed By: #### L 500.4100 ####[facility] [address] [place], [place], [address] Cholesterol [Mass/Vol] 209 mg/dL High <=200 [facility] Comment on above: Result Comment: Chol esterol level, Desirable <200 mg/dLBorderline high cholesterol 200-239 mg/dLHigh cholesterol >=240 mg/dLRecommendations of the NCEP Adult Treatment Panel for thefollowing risk-cutoff thresholds for the [place] Americanpopulation. Performed By: #### L 500.4100 ####[facility] [address] [facility] [address] Cholesterol in HDL [Mass/Vol] 61 mg/dL Normal [facility] Comment on above: Result Comment: [place] onal Cholesterol Education Program (NCEP) guidelines:<40 mg/dL: Low HDL-cholesterol (major risk factor for CHD)>= 60 mg/dL: High HDL-cholesterol (negative risk factor forCHD)HDL-cholesterol is affected by a number of factors, e.g.smoking, exercise, hormones, sex and age. Performed By: #### L 500.4100 ####[facility] [address] [place] [address] Cholesterol in LDL [Mass/Vol] 108 mg/dL Normal [facility] Comment on above: Result Comment: Bord fspudg=039-656 mg/dL Higher Jcfu=473 mg/dL or greaterFriedwald Equation for LDL-C Performed By: #### L 500.4100 ####[facility] [address] [place], [address] Cholesterol in VLDL [Mass/Vol] 40 mg/dL Normal 5-40 [facility] Comment on above: Performed By: #### L 500.4100 ####[facility] [address] [place], [address] Triglyceride [Mass/Vol] 201 mg/dL High [facility] Comment on above: Result Comment: The drugs N-Acetylcysteine and Metamizole may falselydepress this assay.Normal range: <150 mg/dLBorderline High: 150-199 mg/dLHigh: 200-499 mg/dLVery High: >500 mg/dL Performed By: #### L 500.4100 ####[facility] [address] [place], [address] MR/CON.PCM.NEon 10-31-2024 MR/CON.PCM.NE Normal [facility] Magnetic resonance imaging r eportOrdered By: Richi Andre on 10-31-2024 Study report [facility] Services [address] [place] [address] Brain without Contrast MR#: [id number] Acct: [id number] Name: JAYDA OSHEA Rep #: [id number] : 1985 F 39 From: Yoko Andre MD PCP: Care Physician,No Primary Status: ADM IN Study:Brain without Contrast Date of Exam: 10/31/24 Exam# [id number] Ordering Dr: Nehemiah Lorenz DO EXAM: BRAIN [...] ofdictation. Reading Location: [facility] CC: Dr. Nehemiah Haney, DO; No Primary Care Physician ~ Pastoral Worker: Signed [facility] No Panel InformationOrdered By: Nehemiah Medrano on 10-31-2024 JAK2 Mutation Comment . [facility] Comment on above: Technical Component performed at [employer] RTPProfessional Component performed by:Lisbet Price, PhD, FACMGDirector, Molecular OncologyLabco [id number], [address] [facility] [phone] test was developed and its performance characteristicsdetermined by [employer]. 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 [facility] Comment on above: JAK2 is a cytoplasmi c tyrosine kinase with a connell role insignal transduction from multiple hematopoietic growthfactor receptors. A point mutation within exon 14 of theJAK2 gene (L2010I) encoding a valine to phenylalaninesubstitution at position 617 of the JAK2 protein (V617F)has been identified in most patients with polycythemiavera, and in about half of those with either essentialthrombocythemia or idiopathic myelofibrosis. The V617F hasalso been detected, although infrequently, in other myeloiddisorders such as chronic myelomonocytic leukemia andchronic neutrophilic luekemia. V617F is an acquiredmutation that alters a highly conserved valine present inthe negative regulatory JH2 domain of the JAK2 proteinand is predicted to dysregulate kinase activity.Methodology:Total genomic DNA was extracted and subjected to TaqManreal-time PCR amplification/detection. Two amplificationproducts per sample were monitored by real-time PCR usingprimers/probes specific to JAK2 wild type (WT) and SVR4zugsjr V617F. The [employer] Absolute Quantitation softwarewill compare the patient specimen valuse to the standardcurves and generate percent values for wild type andmutant type. In vitro studies have indicated that thisassay has an analytical sensitivity of 1%.References:Solo EJ, Roger BAIG, Macho PJ, et al. Acquiredmutation of the tyrosine kinase JAK2 in humanmyeloproliferative disorders. Lancet. 2005 Jun 19;365(4089):5383-0451. Tong Bolden, Geraldo Jean-Baptiste, Adelina Curry JP. Aunique clonal JAK2 mutation leading to constitutivesignaling causes polycythaemia vera. Nature. 2005 Jul 29;590(7782):0203-3624.Maryann R, Aly F, Joseph , et al. A xmoo-bn-lcexxgxl mutation of JAK2 in myeloproliferative disorders.N Engl J Med. 2005 Jul 29; 352(79):3287-7236. Screening total cholesterol/ high density lipoprotein (HDL) cholesterol ratioOrdered By: Nehemiah Medrano on 10-31-2024 Cholesterol.total/Chol esterol in HDL [Mass ratio] 3.43 {ratio} [facility] Serum or plasma cholesterol in HDL measurement (mass/volume)Ordered By: Nehemiah Medrano on 10-31-2024 Cholesterol in HDL [Mass/Vol] 61 mg/dL >40 [facility] Comment on above: National Cholesterol Education Program (NCEP) guidelines:<40 mg/dL: Low HDL-cholesterol (major risk factor for CHD)>= 60 mg/dL: High HDL-cholesterol (negative risk factor for CHD)HDL-cholesterol is affected by a number of factors, e.g. smoking, exercise, hormones, sex and age. Serum or plasma cholesterol measurement (mass/volume)Ordered By: Nehemiah Medrano on 10-31-2024 Cholesterol [Mass/Vol] 209 mg/dL High <201 [facility] Comment on above: Cholesterol level, D esirable <200 mg/dLBorderline high cholesterol 200-239 mg/dLHigh cholesterol >=240 mg/dLRecommendations of the NCEP Adult Treatment Panel for the following risk-cutoff thresholds for the [place] population. Thyroid Stim Hormone (TSH)on 10-31-2024 TSH 3.230 uIU/mL Normal 0.300-4.20 0 [facility] Comment on above: Performed By: #### L 505.5000, L501.9985, L501.9520, L506.0200 ####[facility] [address] [place], [place], [address] Triglycerides measurementOrd ered By: Nehemiah Medrano on 10-31-2024 Triglyceride [Mass/Vol] 201 mg/dL High <199 [facility] Comment on above: The drugs N-Acetylcy steine and Metamizole may falsely depress this assay. Normal range: <150 mg/dLBorderline High: 150-199 mg/dLHigh: 200-499 mg/dLVery High: >500 mg/dL Troponin T HS 4 HRon 025 Trop T High Sen Normal <=14 [facility] Comment on above: Result Comment: CANC ELLATION ORDER Performed By: #### L 499.0043 ####[facility] [address] [place], [place], [address] Urine Drug Screen (VISTA)on 10-31-2024 AMPHETAMINES Positive Normal <1000 ng/mL [facility] Comment on above: Result Comment: If c onfirmation testing is needed, a separate order will berequired to send out testing to the reference laboratory. Performed By: #### L 505.5000, L501.9985, L501.9520, L506.0200 ####[facility] [address] [place], [place], [address] BARBITIURATES Negative Normal < 200 ng/mL [facility] Comment on above: Performed By: #### L 505.5000, L501.9985, L501.9520, L506.0200 ####[facility] [address] [place], [address] BENZODIAZIPINE Negative Normal < 200 ng/mL [facility] Comment on above: Performed By: #### L 505.5000, L501.9985, L501.9520, L506.0200 ####[facility] [address] [place], [address] BUP Ur Drug Scr Negative Normal < 200 ng/mL [facility] Comment on above: Performed By: #### L 505.5000, L501.9985, L501.9520, L506.0200 ####[facility] [address] [place], [address] COCAINE Negative Normal < 300 ng/mL [facility] Comment on above: Performed By: #### L 505.5000, L501.9985, L501.9520, L506.0200 ####[facility] [address] [place], [address] Fentanyl Negative Normal [facility] Comment on above: Performed By: #### L 505.5000, L501.9985, L501.9520, L506.0200 ####[facility] [address] [place], [address] METHADONE Negative Normal < 300 ng/mL [facility] Comment on above: Performed By: #### L 505.5000, L501.9985, L501.9520, L506.0200 ####[facility] [address] [place], [address] OPIATES Negative Normal < 300 ng/mL [facility] Comment on above: Performed By: #### L 505.5000, L501.9985, L501.9520, L506.0200 ####[facility] [address] [place], [address] OXYCODONE Negative Normal < 100 ng/mL [facility] Comment on above: Performed By: #### L 505.5000, L501.9985, L501.9520, L506.0200 ####[facility] [address] [place], [address] PCP Negative Normal < 25 ng/mL [facility] Comment on above: Performed By: #### L 505.5000, L501.9985, L501.9520, L506.0200 ####[facility] [address] [place], [address] THC Positive Normal < 50 ng/mL [facility] Comment on above: Result Comment: If c onfirmation testing is needed, a separate order will berequired to send out testing to the reference laboratory. Performed By: #### L 505.5000, L501.9985, L501.9520, L506.0200 ####[facility] [address] [place], [address] Vitamin B12on 10-31-2024 Cobalamin (Vitamin B12) [Mass/Vol] 484 pg/mL Normal 180-914 [facility] Comment on above: Performed By: #### L 503.0106 ####[facility] [address] [place], [address] Vitamin B12 ser/plasOrdered By: Nehemiah Medrano on 10-31-2024 Cobalamin (Vitamin B12) [Mass/Vol] 484 pg/mL 180-914 [facility] 12 Lead EKGon 10-30-2024 12 Lead EKG Normal [facility] Absolute lymphocyte countOrd ered By: Domenico Silva on 10-30-2024 Lymphocytes Auto (Unsp spec) [#/Vol] 1.57 10*3/uL 0.83-4.51 [facility] Absolute neutrophil countOrd ered By: Domenico Silva on 10-30-2024 Neutrophils (Bld) [#/Vol] 8.3 10*3/uL High 2.0-7.7 [facility] Activated partial thrombopla stin time (aPTT) in platelet poor plasma by coagulation aOrdered By: Domenico Silva on 10-30-2024 aPTT Coag (PPP) [Time] 25.8 s 24.1-36.2 [facility] Amphetamine detection with 1 000 ng/mL as cutoffOrdered By: Nehemiah Medrano on 10-30-2024 Amphetamines Screen method >1000 ng/mL Ql (U) Positive <1000 ng/mL [facility] Comment on above: If confirmation test ing is needed, a separate order will be required to send out testing to the reference laboratory. Amphetamines Screen method >1000 ng/mL Ql (U) Negative < 200 ng/mL [facility] Anion gap in Serum or Plasma Ordered By: Domenico Silva on 10-30-2024 Anion gap [Moles/Vol] 16 mmol/L High 5-15 [facility] Automated lymphocyte count a s percentage of total leukocytesOrdered By: Domenico Silva on 10-30-2024 Lymphocytes/100 WBC Auto (Unsp spec) 15.0 % Low 19-41 [facility] BUN/creatinine ratioOrdered By: Domenico Silva on 10-30-2024 Urea nitrogen/Creatinine [Mass ratio] 16.5 mg/mg 10- [facility] Basic Metabolic Profile (BMP )on 10-30-2024 BUN/CRE 16.5 RATIO Normal 01-20 [facility] Comment on above: Performed By: #### L 300.3900, L300.4310, L500.2500, L100.0100, L501.4021 ####[facility] [address] [place], [address] Calcium [Mass/Vol] 10.5 mg/dL Normal 7.6-11.[address] [facility] Comment on above: Performed By: #### L 300.3900, L300.4310, L500.2500, L100.0100, L501.4021 ####[facility] [address] [place], [address] Chloride [Moles/Vol] 100 mmol/L Normal 98-108 [facility] Comment on above: Performed By: #### L 300.3900, L300.4310, L500.2500, L100.0100, L501.4021 ####[facility] [address] [place], [address] CO2 [Moles/Vol] 24.6 mmol/L Normal 21.0-32.0 [facility] Comment on above: Performed By: #### L 300.3900, L300.4310, L500.2500, L100.0100, L501.4021 ####[facility] [address] [place], [address] Creatinine [Mass/Vol] 0.80 mg/dL Normal 0.70-1.20 [facility] Comment on above: Performed By: #### L 300.3900, L300.4310, L500.2500, L100.0100, L501.4021 ####[facility] [address] [place], [address] ECRCL 93.24 ml/min Normal 50-250 [facility] Comment on above: Performed By: #### L 300.3900, L300.4310, L500.2500, L100.0100, L501.4021 ####[facility] [address] [place], [address] GAP 16 High 5-15 [facility] Comment on above: Performed By: #### L 300.3900, L300.4310, L500.2500, L100.0100, L501.4021 ####[facility] [address] [place], [address] GFR/1.73 sq M.predicted among non-blacks MDRD (S/P/Bld) [Vol rate/Area] 95 mL/min/{1.73_m2} Normal >60 [facility] Comment on above: Result Comment: mL/m in/1.73m2 CKD-EPI Creatinine Equation (2020) Performed By: #### L 300.3900, L300.4310, L500.2500, L100.0100, L501.4021 ####[facility] [address] [place], [address] Glucose [Mass/Vol] 92 mg/dL Normal 70-[address] [facility] Comment on above: Performed By: #### L 300.3900, L300.4310, L500.2500, L100.0100, L501.4021 ####[facility] [address] [place], [address] Potassium [Moles/Vol] 3.4 mmol/L Normal 3.3-5.1 [facility] Comment on above: Performed By: #### L 300.3900, L300.4310, L500.2500, L100.0100, L501.4021 ####[facility] [address] [place], [address] Sodium [Moles/Vol] 141 mmol/L Normal 133-[address] [facility] Comment on above: Performed By: #### L 300.3900, L300.4310, L500.2500, L100.0100, L501.4021 ####[facility] [address] [place], [address] Urea nitrogen [Mass/Vol] 13 mg/dL Normal 4-19 [facility] Comment on above: Performed By: #### L 300.3900, L300.4310, L500.2500, L100.0100, L501.4021 ####[facility] [address] [place], [address] Basophil percentageOrdered B y: Domenico Silva on 10-30-2024 Basophils/100 WBC (Bld) 0.5 % 0-1 [facility] CBC W/Diff, Automatedon 10-03 0 Absolute Lymph 1.57 X10 3/uL Normal 0.83-4.51 [facility] Comment on above: Performed By: #### L 300.3900, L300.4310, L500.2500, L100.0100, L501.4021 ####[facility] [address] [place], [address] Absolute Neut 8.3 X10 3/uL High 2.0-7.7 [facility] Comment on above: Performed By: #### L 300.3900, L300.4310, L500.2500, L100.0100, L501.4021 ####[facility] [address] [place], [address] Basophils/100 WBC (Bld) 0.5 % Normal 0-1 [facility] Comment on above: Performed By: #### L 300.3900, L300.4310, L500.2500, L100.0100, L501.4021 ####[facility] [address] [place], [address] Eosinophils/100 WBC (Bld) 0.4 % Normal 0-5 [facility] Comment on above: Performed By: #### L 300.3900, L300.4310, L500.2500, L100.0100, L501.4021 ####[facility] [address] [place], [address] Erythrocyte distribution width (RBC) [Ratio] 12.1 % Normal 11.6-14.6 [facility] Comment on above: Performed By: #### L 300.3900, L300.4310, L500.2500, L100.0100, L501.4021 ####[facility] [address] [place], [address] Hematocrit (Bld) [Volume fraction] 54.8 % High 37-47 [facility] Comment on above: Performed By: #### L 300.3900, L300.4310, L500.2500, L100.0100, L501.4021 ####[facility] [address] [place], [address] IG% 0.600 Normal 0.0-0.9 [facility] Comment on above: Result Comment: IG% - Immature Granulocytes (promyelocytes, myelocytes andmetamyelocytes) > 1% indicates that a LEFT SHIFT is Present. Performed By: #### L 300.3900, L300.4310, L500.2500, L100.0100, L501.4021 ####[facility] [address] [place], [address] Lymphocytes/100 WBC (Bld) 15.0 % Low 19-41 [facility] Comment on above: Performed By: #### L 300.3900, L300.4310, L500.2500, L100.0100, L501.4021 ####[facility] [address] [place], [address] MCH (RBC) [Entitic mass] 30.4 pg Normal 27.0-32.0 [facility] Comment on above: Performed By: #### L 300.3900, L300.4310, L500.2500, L100.0100, L501.4021 ####[facility] [address] [place], [address] MCHC (RBC) [Mass/Vol] 33.8 g/dL Normal 32-36 [facility] Comment on above: Performed By: #### L 300.3900, L300.4310, L500.2500, L100.0100, L501.4021 ####[facility] [address] [place], [address] MCV (RBC) [Entitic vol] 90.1 fL Normal 81-99 [facility] Comment on above: Performed By: #### L 300.3900, L300.4310, L500.2500, L100.0100, L501.4021 ####[facility] [address] [place], [address] Monocytes/100 WBC (Bld) 4.2 % Normal 0-10 [facility] Comment on above: Performed By: #### L 300.3900, L300.4310, L500.2500, L100.0100, L501.4021 ####[facility] [address] [place], [address] Neutrophils/100 WBC (Bld) 79.3 % High 47-70 [facility] Comment on above: Performed By: #### L 300.3900, L300.4310, L500.2500, L100.0100, L501.4021 ####[facility] [address] [place], [address] Nucleated RBC (Bld) [#/Vol] 0 10*3/uL Normal 0-5 [facility] Comment on above: Performed By: #### L 300.3900, L300.4310, L500.2500, L100.0100, L501.4021 ####[facility] [address] [place], [address] Platelet mean volume (Bld) [Entitic vol] 10.0 fL Normal 6.2-12.0 [facility] Comment on above: Performed By: #### L 300.3900, L300.4310, L500.2500, L100.0100, L501.4021 ####[facility] [address] [place], [address] Platelets (Bld) [#/Vol] 311 10*3/uL Normal 150-450 [facility] Comment on above: Performed By: #### L 300.3900, L300.4310, L500.2500, L100.0100, L501.4021 ####[facility] [address] [place], [address] RBC (Bld) [#/Vol] 6.08 10*6/uL High 4.2-5.4 [facility] Comment on above: Performed By: #### L 300.3900, L300.4310, L500.2500, L100.0100, L501.4021 ####[facility] [address] [place], [address] RDW SD 39.9 fl Normal 35.1-43.9 [facility] Comment on above: Performed By: #### L 300.3900, L300.4310, L500.2500, L100.0100, L501.4021 ####[facility] [address] [place], [address] WBC (Bld) [#/Vol] 10.5 10*3/uL Normal 4.4-11.0 [facility] Comment on above: Performed By: #### L 300.3900, L300.4310, L500.2500, L100.0100, L501.4021 ####[facility] [address] [facility], [address] Carbon dioxide, total [Moles /volume] in Central venous bloodOrdered By: Domenico Silva on 10-30-2024 CO2 [Moles/Vol] 24.6 mmol/L 21.0-32.0 [facility] Chest 1 Viewon 10-30-2024 Chest 1 View Normal [facility] Chloride assayOrdered By: Galen Silva on 10-30-2024 Chloride [Moles/Vol] 100 mmol/L 98-108 [facility] Echo Completeon 10-30-2024 Echo Complete Normal [facility] Emergency Department Summary on 10-30-2024 Emergency Department Summary Normal [facility] Eosinophil percentageOrdered By: Domenico Silva on 10-30-2024 Eosinophils/100 WBC (Bld) 0.4 % 0-5 [facility] Erythrocyte distribution wid th ratioOrdered By: Domenico Silva on 10-30-2024 Erythrocyte distribution width (RBC) [Ratio] 12.1 % 11.6-14.6 [facility] Erythrocyte distribution wid th standard deviationOrdered By: Domenico Silva on 10-30-2024 Erythrocyte distribution width (RBC) [Ratio] 39.9 fl 35.1-43.9 [facility] Folate [Moles/volume] in Ser um or PlasmaOrdered By: Nehemiah Medrano on 10-30-2024 Folate [Moles/Vol] 7.69 ng/mL 4.60-34.[address] [facility] Comment on above: Hemolysis, Results w ill be affected, Requires Recollection. Glomerular filtration rate ( GFR) estimation/1.73 sq m using serum, plasma, or whole bOrdered By: Domenico Silva on 10-30-2024 GFR/1.73 sq M.predicted among non-blacks MDRD (S/P/Bld) [Vol rate/Area] 95 mL/min/{1.73_m2} >60 [facility] Comment on above: mL/min/1.73m2 CKD-EP I Creatinine Equation (2020) H AND P Exam - [facility] 10-30-2024 H&P Exam - Hospitalist Normal [facility] Hematocrit Auto (Bld) [Volum e fraction]Ordered By: Domenico Silva on 10-30-2024 Hematocrit (Bld) [Volume fraction] 54.8 % High 37-47 [facility] Hemoglobin A1c percentageOrd ered By: Nehemiah Medrano on 10-30-2024 HbA1c (Bld) [Mass fraction] 5.4 % <5.7 [facility] Comment on above: Normal < 5.7 % Predi abetic 5.7 - 6.4 % Diabetic >or= 6.5 % Please note range changes. Hemoglobin measurementOrdere d By: Domenico Silva on 10-30-2024 Hemoglobin (Bld) [Mass/Vol] 18.5 g/dL Invalid Interpretation Code 12.0-15.0 [facility] Comment on above: CRITICAL VALUE PETERSON D TO [id number] Laquita Shell.RESULTS READ BACK BY SAME. Result Comment: CRIT ICAL VALUE CALLED TO [id number] Laquita Shell.RESULTS READ BACK BY SAME. Performed By: #### L 300.3900, L300.4310, L500.2500, L100.0100, L501.4021 ####[facility] [address] [place], [address] Immature granulocytes/100 WB C Auto (Bld)Ordered By: Domenico Silva on 10-30-2024 Immature granulocytes/100 WBC (Bld) 0.600 % 0.0-0.9 [facility] Comment on above: IG% - Immature Granu locytes (promyelocytes, myelocytes and metamyelocytes) > 1% indicates that a LEFT SHIFT is Present. International normalized rat io (INR) calculationOrdered By: Domenico Silva on 10-30-2024 INR Coag (Bld) [Relative time] 0.9 {INR} [facility] L501.4021on 10-30-2024 Trop T High Sen < 6 Normal <=14 [facility] Comment on above: Performed By: #### L 300.3900, L300.4310, L500.2500, L100.0100, L501.4021 ####[facility] [address] [place], [address] MCV (mean corpuscular volume ) determinationOrdered By: Domenico Silva on 10-30-2024 MCV (RBC) [Entitic vol] 90.1 fL 81-99 [facility] Mean corpuscular hemoglobin (MCH) determinationOrdered By: Domenico Silva on 10-30-2024 MCH (RBC) [Entitic mass] 30.4 pg 27.0-32.0 [facility] Mean corpuscular hemoglobin concentration (MCHC) determinationOrdered By: Domenico Silva on 10-30-2024 MCHC (RBC) [Mass/Vol] 33.8 g/dL 32-36 [facility] Mean platelet volume determi nationOrdered By: Domenico Silva on 10-30-2024 Platelet mean volume (Bld) [Entitic vol] 10.0 fL 6.2-12.0 [facility] Monocyte percentageOrdered B y: Domenico Silva on 10-30-2024 Monocytes/100 WBC (Bld) 4.2 % 0-10 [facility] Neutrophil percentageOrdered By: Domenico Silva on 10-30-2024 Neutrophils/100 WBC (Bld) 79.3 % High 47-70 [facility] No Panel InformationOrdered By: Nehemiah Medrano on 10-30-2024 Urine Buprenorphine Qualitative Negative < 200 ng/mL [facility] Urine Oxycodone Screen Negative < 100 ng/mL [facility] Nucleated red blood cell per centageOrdered By: Domenico Silva on 10-30-2024 Nucleated RBC/100 WBC (Bld) [Ratio] 0 % 0-5 [facility] Partial Thromboplast Timeon 10-30-2024 aPTT Coag (Bld) [Time] 25.8 s Normal 24.1-36.2 [facility] Comment on above: Performed By: #### L 300.3900, L300.4310, L500.2500, L100.0100, L501.4021 ####[facility] [address] [place], [address] Platelet countOrdered By: Galen Silva on 10-30-2024 Platelets (Bld) [#/Vol] 311 10*3/uL 150-450 [facility] Potassium measurement (mass/ volume)Ordered By: Domenico Silva on 10-30-2024 Potassium (Unsp spec) [Mass/Vol] 3.4 mmol/L 3.3-5.1 [facility] Prothrombin Time w/INRon INR Coag (PPP) [Relative time] 0.9 {INR} Normal [facility] Comment on above: Performed By: #### L 300.3900, L300.4310, L500.2500, L100.0100, L501.4021 ####[facility] [address] [place], [address] PT Coag (PPP) [Time] 11.8 s Normal 11.7-14.9 [facility] Comment on above: Performed By: #### L 300.3900, L300.4310, L500.2500, L100.0100, L501.4021 ####[facility] [address] [place], [address] Prothrombin timeOrdered By: Domenico Silva on 10-30-2024 PT Coag (PPP) [Time] 11.8 s 11.7-14.9 [facility] Quantitative urine opiates m easurementOrdered By: Nehemiah Medrano on 10-30-2024 Opiates Ql (U) Negative < 300 ng/mL [facility] RBC Auto (Bld) [#/Vol]Ordere d By: Domenico Silva on 10-30-2024 RBC (Bld) [#/Vol] 6.08 10*6/uL High 4.2-5.4 [facility] STROKE Brain/Head without Co nton 10-30-2024 STROKE Brain/Head without Cont Normal [facility] STROKE CTA Head AND Neck W/C onon 10-30-2024 STROKE CTA Head AND Neck W/Con Normal [facility] Screening urine fentanyl silva surementOrdered By: Nehemiah Medrano on 10-30-2024 fentaNYL Screen Ql (U) Negative [facility] Serum creatinine measurement (mass/volume)Ordered By: Domenico Silva on 10-30-2024 Creatinine [Mass/Vol] 0.80 mg/dL 0.70-1.20 [facility] Serum glucose measurement (m ass/volume)Ordered By: Domenico Silva on 10-30-2024 Glucose [Mass/Vol] 92 mg/dL 70-[address] [facility] Serum or plasma calcium sasha urement (mass/volume)Ordered By: Domenico Silva on 10-30-2024 Calcium [Mass/Vol] 10.5 mg/dL 7.6-11.[address] [facility] Serum or plasma urea nitroge n measurement (mass/volume)Ordered By: Domenico Silva on 10-30-2024 Urea nitrogen [Mass/Vol] 13 mg/dL 4-19 [facility] Sodium levelOrdered By: Domenico Silva on 10-30-2024 Sodium [Moles/Vol] 141 mmol/L 133-[address] [facility] TSH DL <= 0.005 mIU/L QnOrde red By: Nehemiah Medrano on 10-30-2024 TSH Qn 3.230 uIU/mL 0.300-4.20 0 [facility] Troponin T HS 2 HRon 025 Trop T High Sen < 6 Normal <=14 [facility] Comment on above: Performed By: #### L 499.0042 ####[facility] [address] [place], [address] Troponin T.cardiac [Mass/vol ume] in Serum or Plasma by High sensitivity methodOrdered By: Domenico Silva on 10-30-2024 Troponin T.cardiac High sensitivity method [Mass/Vol] < 6 ng/L <14 [facility] Troponin T.cardiac High sensitivity method [Mass/Vol] < 6 ng/L <14 [facility] Urine benzodiazepine levelOr dered By: Nehemiah Medrano on 10-30-2024 Benzodiazepines Ql (U) Negative < 200 ng/mL [facility] Urine cocaine levelOrdered B y: Nehemiah Medrano on 10-30-2024 Cocaine Ql (U) Negative < 300 ng/mL [facility] Urine zuwnu-3-ppjfkdisrzdokq abinol (THC) measurementOrdered By: Nehemiah Medrano on 10-30-2024 Cannabinoids Screen Ql (U) Positive < 50 ng/mL [facility] Comment on above: If confirmation test ing is needed, a separate order will be required to send out testing to the reference laboratory. Urine phencyclidine (PCP) de tectionOrdered By: Nehemiah Medrano on 10-30-2024 Phencyclidine Ql (U) Negative < 25 ng/mL [facility] White blood cell (WBC) count Ordered By: Domenico Silva on 10-30-2024 WBC (Bld) [#/Vol] 10.5 10*3/uL 4.4-11.0 [facility] Foot min 3 Viewson 5 Foot min 3 Views Normal [facility] Urgent Care Visit Reporton 0 08-19-2024 Urgent Care Visit Report Normal [facility] 12 Lead EKGon 11-27-2023 12 Lead EKG Normal [facility] Basic Metabolic Profile (BMP )on 11-27-2023 BUN/CRE 15.9 RATIO Normal 10-20 [facility] Comment on above: Order Comment: CIARA Perez PREVIOUS SPECIMEN REJECTED DUE TOHEMOLYSIS. 11/27/23 [id number] Performed By: #### L 500.2500, L501.5425 ####[facility] [address] [place], [address] CA,Total 9.1 mg/dL Normal 8.5-10.1 [facility] Comment on above: Order Comment: REDRA W. PREVIOUS SPECIMEN REJECTED DUE TOHEMOLYSIS. 11/27/23 [id number] Performed By: #### L 500.2500, L501.5425 ####[facility] [address] [place], [address] Chloride [Moles/Vol] 107 mmol/L Normal 98-107 [facility] Comment on above: Order Comment: REDRA W. PREVIOUS SPECIMEN REJECTED DUE TOHEMOLYSIS. 11/27/23 [id number] Performed By: #### L 500.2500, L501.5425 ####[facility] [address] [place], [address] CO2 [Moles/Vol] 28.0 mmol/L Normal 21.0-32.0 [facility] Comment on above: Order Comment: REDRA W. PREVIOUS SPECIMEN REJECTED DUE TOHEMOLYSIS. 11/27/23 [id number] Performed By: #### L 500.2500, L501.5425 ####[facility] [address] [place], [address] Creatinine [Mass/Vol] 0.69 mg/dL Normal 0.55-1.02 [facility] Comment on above: Order Comment: REDRA W. PREVIOUS SPECIMEN REJECTED DUE TOHEMOLYSIS. 11/27/23 [id number] Result Comment: The validity of the calculated GFR GFRAA in patients over70 years has not been determined. Clinical correlation isessential. Performed By: #### L 500.2500, L501.5425 ####[facility] [address] [place], [address] ECRCL 111.41 ml/min Normal [facility] Comment on above: Order Comment: REDRA W. PREVIOUS SPECIMEN REJECTED DUE TOHEMOLYSIS. 11/27/23 [id number] Performed By: #### L 500.2500, L501.5425 ####[facility] [address] [place], [address] EST GFR - AA 121 mL/min Normal >60 [facility] Comment on above: Order Comment: REDRA W. PREVIOUS SPECIMEN REJECTED DUE TOHEMOLYSIS. 11/27/23 [id number] Result Comment: Afri can Lithuanian GFR Calc Performed By: #### L 500.2500, L501.5425 ####[facility] [address] [place], [address] GAP 3 Low 5-15 [facility] Comment on above: Order Comment: REDRA W. PREVIOUS SPECIMEN REJECTED DUE TOHEMOLYSIS. 11/27/23 [id number] Performed By: #### L 500.2500, L501.5425 ####[facility] [address] [place], [address] GFR/1.73 sq M.predicted among non-blacks MDRD (S/P/Bld) [Vol rate/Area] 100 mL/min/{1.73_m2} Normal >60 [facility] Comment on above: Order Comment: REDRA W. PREVIOUS SPECIMEN REJECTED DUE TOHEMOLYSIS. 11/27/23 [id number] Result Comment: Non- GFR Calc Performed By: #### L 500.2500, L501.5425 ####[facility] [address] [place], [address] Glucose [Mass/Vol] 107 mg/dL High 74-[address] [facility] Comment on above: Order Comment: REDRA W. PREVIOUS SPECIMEN REJECTED DUE TOHEMOLYSIS. 11/27/23 [id number] Result Comment: Fast ing Glucose result from 100 to 125 mg/dLsuggests IMPAIRED HOMEOSTASIS per A.D.A. criteria. Performed By: #### L 500.2500, L501.5425 ####[facility] [address] [place], [address] Potassium [Moles/Vol] 4.1 mmol/L Normal 3.5-5.1 [facility] Comment on above: Order Comment: REDRA W. PREVIOUS SPECIMEN REJECTED DUE TOHEMOLYSIS. 11/27/23 [id number] Performed By: #### L 500.2500, L501.5425 ####[facility] [address] [place], [address] Sodium [Moles/Vol] 138 mmol/L Normal 136-[address] [facility] Comment on above: Order Comment: REDRA W. PREVIOUS SPECIMEN REJECTED DUE TOHEMOLYSIS. 11/27/23 [id number] Performed By: #### L 500.2500, L501.5425 ####[facility] [address] [place], [address] Urea nitrogen [Mass/Vol] 11 mg/dL Normal 7-18 [facility] Comment on above: Order Comment: REDRA W. PREVIOUS SPECIMEN REJECTED DUE TOHEMOLYSIS. 11/27/23 [id number] Performed By: #### L 500.2500, L501.5425 ####[facility] [address] [place], [address] BUN Normal 7-18 [facility] Comment on above: Order Comment: 1Y Result Comment: This specimen has been REJECTED due to Laboratory criteria:[golden CHRISTENSEN].NATALIA has been notified of need of recollection.11/27/23 1246 Francisca Clapper Performed By: #### L 500.2500, L100.0100 ####[facility] [address] [place], [address] BUN/CRE Normal 10-20 [facility] Comment on above: Order Comment: 1Y Result Comment: This specimen has been REJECTED due to Laboratory criteria:[golden CHRISTENSEN].NATALIA has been notified of need of recollection.11/27/23 1246 Francisca Clapper Performed By: #### L 500.2500, L100.0100 ####[facility] [address] [place], [address] CA,Total Normal 8.5-10.1 [facility] Comment on above: Order Comment: 1Y Result Comment: This specimen has been REJECTED due to Laboratory criteria:[golden CHRISTENSEN]JUSTYN has been notified of need of recollection.11/27/23 1246 Francisca Clapper Performed By: #### L 500.2500, L100.0100 ####[facility] [address] [place], [address] CL Normal 98-107 [facility] Comment on above: Order Comment: 1Y Result Comment: This specimen has been REJECTED due to Laboratory criteria:[golden CHRISTENSEN].NATALIA has been notified of need of recollection.11/27/23 1246 Francisca Clapper Performed By: #### L 500.2500, L100.0100 ####[facility] [address] [place], [address] CO2 Normal 21.0-32.0 [facility] Comment on above: Order Comment: 1Y Result Comment: This specimen has been REJECTED due to Laboratory criteria:[golden CHRISTENSEN].NATALIA has been notified of need of recollection.11/27/23 1246 Francisca Clapper Performed By: #### L 500.2500, L100.0100 ####[facility] [address] [place], [address] CREAT,SERUM Normal 0.55-1.02 [facility] Comment on above: Order Comment: 1Y Result Comment: This specimen has been REJECTED due to Laboratory criteria:[golden CHRISTENSEN].NATALIA has been notified of need of recollection.11/27/23 1246 Francisca Clapper Performed By: #### L 500.2500, L100.0100 ####[facility] [address] [place], [address] EST GFR Normal >60 [facility] Comment on above: Order Comment: 1Y Result Comment: This specimen has been REJECTED due to Laboratory criteria:[golden CHRISTENSEN].NATALIA has been notified of need of recollection.11/27/23 1246 Francisca Clapper Performed By: #### L 500.2500, L100.0100 ####[facility] [address] [place], [address] EST GFR - AA Normal >60 [facility] Comment on above: Order Comment: 1Y Result Comment: This specimen has been REJECTED due to Laboratory criteria:[golden CHRISTENSEN].NATALIA has been notified of need of recollection.11/27/23 1246 Francisca Clapper Performed By: #### L 500.2500, L100.0100 ####[facility] [facility] [address] [place], [address] GAP Normal 5-15 [facility] Comment on above: Order Comment: 1Y Result Comment: This specimen has been REJECTED due to Laboratory criteria:[golden CHRISTENSEN].NATALIA has been notified of need of recollection.11/27/23 1246 Francisca Clapper Performed By: #### L 500.2500, L100.0100 ####[facility] [address] [place], [address] GLU Normal 74-106 [facility] Comment on above: Order Comment: 1Y Result Comment: This specimen has been REJECTED due to Laboratory criteria:[golden CHRISTENSEN].NATALIA has been notified of need of recollection.11/27/23 1246 Francisca Clapper Performed By: #### L 500.2500, L100.0100 ####[facility] [address] [place], [address] Potassium Normal 3.5-5.1 [facility] Comment on above: Order Comment: 1Y Result Comment: This specimen has been REJECTED due to Laboratory criteria:[golden CHRISTENSEN].NATALIA has been notified of need of recollection.11/27/23 1246 Francisca Clapper Performed By: #### L 500.2500, L100.0100 ####[facility] [address] [place], [address] Basic Metabolic Profile (BMP) Normal 136-145 [facility] Comment on above: Order Comment: 1Y Result Comment: This specimen has been REJECTED due to Laboratory criteria:[golden CHRISTENSEN].NATALIA has been notified of need of recollection.11/27/23 1246 Francisca Pete Performed By: #### L 500.2500, L100.0100 ####[facility] [address] [place], [address] CBC W/Diff, Automatedon 11-02 Absolute Lymph 2.14 X10 3/uL Normal 0.83-4.51 [facility] Comment on above: Order Comment: REDRA W. PREVIOUS SPECIMEN REJECTED DUE TOCLOT'. 11/27/23 1222 Елена Lewis. Performed By: #### L 100.0100 ####[facility] [address] [place], [address] Absolute Neut 6.8 X10 3/uL Normal 2.0-7.7 [facility] Comment on above: Order Comment: REDRA W. PREVIOUS SPECIMEN REJECTED DUE TOCLOT'. 11/27/23 1222 Елена Lewis. Performed By: #### L 100.0100 ####[facility] [address] [place], [address] Basophils/100 WBC (Bld) 0.4 % Normal 0-1 [facility] Comment on above: Order Comment: REDRA W. PREVIOUS SPECIMEN REJECTED DUE TOCLOT'. 11/27/23 1222 Елена Lewis. Performed By: #### L 100.0100 ####[facility] [address] [place], [address] Eosinophils/100 WBC (Bld) 0.8 % Normal 0-5 [facility] Comment on above: Order Comment: REDRA W. PREVIOUS SPECIMEN REJECTED DUE TOCLOT'. 11/27/23 1222 Елена Lewis. Performed By: #### L 100.0100 ####[facility] [address] [place], [address] Erythrocyte distribution width (RBC) [Ratio] 11.2 % Low 11.6-14.6 [facility] Comment on above: Order Comment: REDRA W. PREVIOUS SPECIMEN REJECTED DUE TOCLOT'. 11/27/23 1222 Елена Lewis. Performed By: #### L 100.0100 ####[facility] [address] [place], [address] Hematocrit (Bld) [Volume fraction] 43.8 % Normal 37-47 [facility] Comment on above: Order Comment: REDRA W. PREVIOUS SPECIMEN REJECTED DUE TOCLOT'. 11/27/23 1222 Елена Lewis. Performed By: #### L 100.0100 ####[facility] [address] [place], [address] Hemoglobin (Bld) [Mass/Vol] 14.5 g/dL Normal 12.0-15.0 [facility] Comment on above: Order Comment: REDRA W. PREVIOUS SPECIMEN REJECTED DUE TOCLOT'. 11/27/23 1222 Елена Joshua. Performed By: #### L 100.0100 ####[facility] [address] [place], [address] IG% 0.600 Normal 0.0-0.9 [facility] Comment on above: Order Comment: REDRA W. PREVIOUS SPECIMEN REJECTED DUE TOCLOT'. 11/27/23 1222 Елена Lewis. Result Comment: IG% - Immature Granulocytes (promyelocytes, myelocytes andmetamyelocytes) > 1% indicates that a LEFT SHIFT is Present. Performed By: #### L 100.0100 ####[facility] [address] [place], [address] Lymphocytes/100 WBC (Bld) 22.0 % Normal 19-41 [facility] Comment on above: Order Comment: REDRA W. PREVIOUS SPECIMEN REJECTED DUE TOCLOT'. 11/27/23 1222 Елена Lewis. Performed By: #### L 100.0100 ####[facility] [address] [place], [address] MCH (RBC) [Entitic mass] 30.1 pg Normal 27.0-32.0 [facility] Comment on above: Order Comment: REDRA W. PREVIOUS SPECIMEN REJECTED DUE TOCLOT'. 11/27/23 1222 Елена Lewis. Performed By: #### L 100.0100 ####[facility] [address] [place], [address] MCHC (RBC) [Mass/Vol] 33.1 g/dL Normal 32-36 [facility] Comment on above: Order Comment: REDRA W. PREVIOUS SPECIMEN REJECTED DUE TOCLOT'. 11/27/23 1222 Елена Lewis. Performed By: #### L 100.0100 ####[facility] [address] [place], [address] MCV (RBC) [Entitic vol] 91.1 fL Normal 81-99 [facility] Comment on above: Order Comment: REDRA W. PREVIOUS SPECIMEN REJECTED DUE TOCLOT'. 11/27/23 1222 Елена Lewis. Performed By: #### L 100.0100 ####[facility] [address] [place], [address] Monocytes/100 WBC (Bld) 6.7 % Normal 0-10 [facility] Comment on above: Order Comment: REDRA W. PREVIOUS SPECIMEN REJECTED DUE TOCLOT'. 11/27/23 1222 Елена Lewis. Performed By: #### L 100.0100 ####[facility] [address] [place], [address] Neutrophils/100 WBC (Bld) 69.5 % Normal 47-70 [facility] Comment on above: Order Comment: REDRA W. PREVIOUS SPECIMEN REJECTED DUE TOCLOT'. 11/27/23 1222 Елена Lewis. Performed By: #### L 100.0100 ####[facility] [address] [place], [address] Nucleated RBC (Bld) [#/Vol] 0 10*3/uL Normal 0-5 [facility] Comment on above: Order Comment: REDRA W. PREVIOUS SPECIMEN REJECTED DUE TOCLOT'. 11/27/23 1222 Елена Lewis. Performed By: #### L 100.0100 ####[facility] [address] [place], [address] Platelet mean volume (Bld) [Entitic vol] 9.6 fL Normal 6.2-12.0 [facility] Comment on above: Order Comment: REDRA W. PREVIOUS SPECIMEN REJECTED DUE TOCLOT'. 11/27/23 1222 Елена Lewis. Performed By: #### L 100.0100 ####[facility] [address] [place], [address] Platelets (Bld) [#/Vol] 260 10*3/uL Normal 150-450 [facility] Comment on above: Order Comment: REDRA W. PREVIOUS SPECIMEN REJECTED DUE TOCLOT'. 11/27/23 1222 Елена Lewis. Performed By: #### L 100.0100 ####[facility] [address] [place], [address] RBC (Bld) [#/Vol] 4.81 10*6/uL Normal 4.2-5.4 [facility] Comment on above: Order Comment: REDRA W. PREVIOUS SPECIMEN REJECTED DUE TOCLOT'. 11/27/23 1222 Елена Lewis. Performed By: #### L 100.0100 ####[facility] [address] [place], [address] RDW SD 37.7 fl Normal 35.1-43.9 [facility] Comment on above: Order Comment: REDRA W. PREVIOUS SPECIMEN REJECTED DUE TOCLOT'. 11/27/23 1222 Елена Lewis. Performed By: #### L 100.0100 ####[facility] [address] [place], [address] WBC (Bld) [#/Vol] 9.7 10*3/uL Normal 4.4-11.[address] [facility] Comment on above: Order Comment: RONY W. PREVIOUS SPECIMEN REJECTED DUE TOCLOT'. 11/27/23 1222 Елена Lewis. Performed By: #### L 100.0100 ####[facility] [address] [place], [address] Absolute Neut Normal 2.0-7.7 [facility] Comment on above: Result Comment: This specimen has been REJECTED due to Laboratory criteria:Clotted.NATALIA has been notified of need of recollection.11/27/23 1221 Елена Lewis Performed By: #### L 500.2500, L100.0100 ####[facility] [address] [place], [address] HCT Normal 37-47 [facility] Comment on above: Result Comment: This specimen has been REJECTED due to Laboratory criteria:Clotted.NATALIA has been notified of need of recollection.11/27/23 1221 Елена Lewis Performed By: #### L 500.2500, L100.0100 ####[facility] [address] [place], [address] HGB Normal 12.0-15.0 [facility] Comment on above: Result Comment: This specimen has been REJECTED due to Laboratory criteria:Clotted.NATALIA has been notified of need of recollection.11/27/23 1221 Елена Lewis Performed By: #### L 500.2500, L100.0100 ####[facility] [address] [place], [address] MCH Normal 27.0-32.0 [facility] Comment on above: Result Comment: This specimen has been REJECTED due to Laboratory criteria:Clotted.NATALIA has been notified of need of recollection.11/27/23 1221 Елена Lewis Performed By: #### L 500.2500, L100.0100 ####[facility] [address] [place], [address] MCHC Normal 32-36 [facility] Comment on above: Result Comment: This specimen has been REJECTED due to Laboratory criteria:Clotted.NATALIA has been notified of need of recollection.11/27/23 1221 Елена Lewis Performed By: #### L 500.2500, L100.0100 ####[facility] [address] [place], [address] MCV Normal 81-99 [facility] Comment on above: Result Comment: This specimen has been REJECTED due to Laboratory criteria:Clotted.NATALIA has been notified of need of recollection.11/27/23 1221 Елена Lewis Performed By: #### L 500.2500, L100.0100 ####[facility] [address] [place], [address] NEUT% Normal 47-70 [facility] Comment on above: Result Comment: This specimen has been REJECTED due to Laboratory criteria:Clotted.NATALIA has been notified of need of recollection.11/27/23 1221 Елена Lewis Performed By: #### L 500.2500, L100.0100 ####[facility] [address] [place], [address] PLT Normal 150-450 [facility] Comment on above: Result Comment: This specimen has been REJECTED due to Laboratory criteria:Clotted.NATALIA has been notified of need of recollection.11/27/23 1221 Елена Lewis Performed By: #### L 500.2500, L100.0100 ####[facility] [address] [place], [address] RBC Normal 4.2-5.4 [facility] Comment on above: Result Comment: This specimen has been REJECTED due to Laboratory criteria:Clotted.NATALIA has been notified of need of recollection.11/27/23 1221 Елена Lewis Performed By: #### L 500.2500, L100.0100 ####[facility] [address] [place], [address] RDW CV Normal 11.6-14.6 [facility] Comment on above: Result Comment: This specimen has been REJECTED due to Laboratory criteria:Clotted.NATALIA has been notified of need of recollection.11/27/23 1221 Елена Lewis Performed By: #### L 500.2500, L100.0100 ####[facility] [address] [place], [address] RDW SD Normal 35.1-43.9 [facility] Comment on above: Result Comment: This specimen has been REJECTED due to Laboratory criteria:Clotted.NATALIA has been notified of need of recollection.11/27/23 1221 Елена Lewis Performed By: #### L 500.2500, L100.0100 ####[facility] [address] [place], [address] WBC Normal 4.4-11.0 [facility] Comment on above: Result Comment: This specimen has been REJECTED due to Laboratory criteria:Clotted.NATALIA has been notified of need of recollection.11/27/23 1221 Елена Lewis Performed By: #### L 500.2500, L100.0100 ####[facility] [address] [place], [address] CNOVon 11-27-2023 CNOV Office Visit ([facility] ) JAYDA OSHEA ([id number]) 1985 F Date Time Provider Department 11/27/23 11:[address] [facility] During your visit today, we recorded the following information about you: Blood pressure 190/110 Vonnie Dickerson APRN.CNP 11/27/2023 11:37 AM Signed Patient triaged at [facility]. Here today with sob, left arm pain, elevated bp. Bp 190/110. I will refer to ER. Patient declines squad. Patient in no visible distress at time of triage. Allergies As of Date: 11/27/2023 Noted Allergy Reaction NAPROSYN (NAPROXEN) 07/25/2014 4 - Hives SEASONAL ALLERGIES 06/30/2009 Comments: sinus reaction Date Reviewed: 05/15/2020 Reviewed by: Corinne Nichole ([facility]) - Fully Assessed Reason for Visit: Shortness of Breath [227] Primary Visit Diagnosis:Chest pressure [R07.89] Prescriptions as of 11/27/2023 - Lactobacillus acidophilus (FLORAJEN) 460 mg (20 billion cell) cap Take 1 capsule by mouth once daily. - metoprolol succinate ER (TOPROL XL) 50 mg 24 hr tablet Take 1 tablet by mouth once daily. - dextroamphetamine-amphetami ne (ADDERALL) 20 mg tablet Take 1 tablet by mouth twice daily for 30 days. - dextroamphetamine-amphetami ne (ADDERALL) 5 mg tablet Take 1 tablet [...] Status:Closed by VONNIE DICKERSON on 11/27/23 Normal [facility] Chest 1 View (Portable)on Chest 1 View (Portable) Normal [facility] Emergency Department Summary on 11-27-2023 Emergency Department Summary Normal [facility] L501.4020on 11-27-2023 TROPONIN-I HS 7 pg/mL Normal 3.0-54.0 [facility] Comment on above: Result Comment: Mahogany fulton Note: New Test Units and Gender Specific Reference Ranges. For more information see Policy Stat Procedure [place] High Sensitivity Troponin (TNIH) and attachments. Performed By: #### L 501.4020 ####[facility] [address] [place], [place], [address] L501.5425on 11-27-2023 TROPONIN-I HS 6 pg/mL Normal 3.0-54.0 [facility] Comment on above: Order Comment: CIARA W. PREVIOUS SPECIMEN REJECTED DUE TOHEMOLYSIS. 11/27/23 [id number] Result Comment: Mahogany fulton Note: New Test Units and Gender Specific Reference Ranges. For more information see Policy Stat Procedure [place] High Sensitivity Troponin (TNIH) and attachments. Performed By: #### L 500.2500, Y211.4272 ####[facility] [address] [place], [place], [address] Vital Signs Date Time Vital Sign Value Performing Clinician Leslye levin 11-10-2024 13:42-0400 Diastolic blood pressure 95 mm[Hg] No Primary Care Physician [facility] 11-10-2024 13:42-0400 Heart rate 88 /min No Primary Care Physician [facility] 11-10-2024 13:42-0400 Respiratory rate 17 /min No Primary Care Physician [facility] 11-10-2024 13:42-0400 SaO2% (BldA) [Mass fraction] 96 % No Primary Care Physician [facility] 11-10-2024 13:42-0400 Systolic blood pressure 110 mm[Hg] No Primary Care Physician [facility] 11-10-2024 10:25-0400 Body temperature 97.9 [degF] No Primary Care Physician [facility] 11-05-2024 13:39-0400 Body height 162.56 cm No Primary Care Physician [facility] 11-05-2024 13:39-0400 Body weight 76.83 kg No Primary Care Physician [facility] 11-04-2024 12:25-0400 Body mass index (BMI) [Ratio] 29 kg/m2 No Primary Care Physician [facility] 11-04-2024 11:20-0400 Heart rate 76 /min No Primary Care Physician [facility] 11-04-2024 11:08-0400 Body temperature 97.8 [degF] No Primary Care Physician [facility] 11-04-2024 11:08-0400 Diastolic blood pressure 84 mm[Hg] No Primary Care Physician [facility] 11-04-2024 11:08-0400 Respiratory rate 16 /min No Primary Care Physician [facility] 11-04-2024 11:08-0400 SaO2% (BldA) [Mass fraction] 94 % No Primary Care Physician [facility] 11-04-2024 11:08-0400 Systolic blood pressure 172 mm[Hg] No Primary Care Physician [facility] 11-04-2024 04:16-0400 Body mass index (BMI) [Ratio] 28 kg/m2 No Primary Care Physician [facility] 11-02-2024 13:33-0400 Body height 162.56 cm No Primary Care Physician [facility] 11-02-2024 13:33-0400 Body weight 74 kg No Primary Care Physician [facility] 11-01-2024 14:30-0400 Body temperature 97.2 [degF] No Primary Care Physician [facility] 11-01-2024 14:30-0400 Diastolic blood pressure 103 mm[Hg] No Primary Care Physician [facility] 11-01-2024 14:30-0400 Heart rate 77 /min No Primary Care Physician [facility] 11-01-2024 14:30-0400 Respiratory rate 16 /min No Primary Care Physician [facility] 11-01-2024 14:30-0400 SaO2% (BldA) [Mass fraction] 99 % No Primary Care Physician [facility] 11-01-2024 14:30-0400 Systolic blood pressure 183 mm[Hg] No Primary Care Physician [facility] 11-01-2024 13:00-0400 Body mass index (BMI) [Ratio] 30 kg/m2 No Primary Care Physician [facility] 10-31-2024 10:21-0400 Body height 162.56 cm No Primary Care Physician [facility] 10-31-2024 10:21-0400 Body weight 79.4 kg No Primary Care Physician [facility] 10-31-2024 00:00-0400 Diastolic blood pressure 99 mm[Hg] No Primary Care Physician [facility] 10-31-2024 00:00-0400 Heart rate 69 /min No Primary Care Physician [facility] 10-31-2024 00:00-0400 Respiratory rate 16 /min No Primary Care Physician [facility] 10-31-2024 00:00-0400 SaO2% (BldA) [Mass fraction] 100 % No Primary Care Physician [facility] 10-31-2024 00:00-0400 Systolic blood pressure 166 mm[Hg] No Primary Care Physician [facility] 10-30-2024 23:14-0400 Body temperature 98 [degF] No Primary Care Physician [facility] 10-30-2024 20:50-0400 Body height 162.56 cm No Primary Care Physician [facility] 10-30-2024 20:50-0400 Body mass index (BMI) [Ratio] 29.3 kg/m2 No Primary Care Physician [facility] 10-30-2024 20:50-0400 Body weight 77.5 kg No Primary Care Physician [facility] 08-19-2024 11:28-0400 Body height 162.56 cm No Primary Care Physician [facility] 08-19-2024 11:28-0400 Body mass index (BMI) [Ratio] 29.9 kg/m2 No Primary Care Physician [facility] 08-19-2024 11:28-0400 Body temperature 98.2 [degF] No Primary Care Physician [facility] 08-19-2024 11:28-0400 Body weight 79.03 kg No Primary Care Physician [facility] 08-19-2024 11:28-0400 Diastolic blood pressure 86 mm[Hg] No Primary Care Physician [facility] 08-19-2024 11:28-0400 Heart rate 94 /min No Primary Care Physician [facility] 08-19-2024 11:28-0400 SaO2% (BldA) [Mass fraction] 97 % No Primary Care Physician [facility] 08-19-2024 11:28-0400 Systolic blood pressure 122 mm[Hg] No Primary Care Physician [facility] 11-27-2023 11:34-0400 Diastolic blood pressure 110 mm[Hg] Vonnie Dickerson APRN.CNP Work Phone: [facility] 11-27-2023 11:34-0400 Systolic blood pressure 190 mm[Hg] Vonnie Dickerson GENA Work Phone: [facility] Encounters Encounter Date Encounter Type Care Provider Facility Start: 11-10-2024 Non-patient / Non-visit Dr. Nehemiah stanley MD [facility] Work Phone: Start: 11-09-2024 Non-patient / Non-visit Dr. Nehemiah stanley MD [facility] Work Phone: Start: 11-08-2024 Non-patient / Non-visit Dr. Nehemiah stanley MD [facility] Work Phone: Start: 11-07-2024 Non-patient / Non-visit Dr. Nehemiah stanley MD [facility] Work Phone: Start: 11-06-2024 Non-patient / Non-visit Dr. Taylor [facility] Start: 11-06-2024 Non-patient / Non-visit Dr. Ximena Mccormick MD [facility] Work Phone: Start: 11-05-2024 Non-patient / Non-visit Dr. Nehemiah stanley [facility] Work Phone: Start: 11-04-2024 [facility] Start: 11-04-2024 ambulatory Law Eduardo [facility] Start: 11-04-2024 End: 11-10-2024 Evaluation and management of inpatient No Primary Care Physician Facility:[facility] Start: 11-04-2024 Non-patient / Non-visit Dr. Taylor [facility] Start: 11-04-2024 Non-patient / Non-visit Dr. Bakari Domingo DO [facility] Work Phone: Start: 11-01-2024 ambulatory Lois Domingo Facility:[facility] Start: 11-01-2024 End: 11-04-2024 Evaluation and management of inpatient Dr. Lois Domingo DO -Rehab Unit Work Phone: Start: 11-01-2024 Non-patient / Non-visit Dr. Vee hansen MD -[facility] Work Phone: Start: 11-01-[facility] Start: 11-01-2024 Non-patient / Non-visit [facility] F[facility] Start: 10-31-2024 [facility] Start: 10-31-2024 Non-patient / Non-visit Dr. Foy [facility] Start: 10-30-2024 ambulatory No Primary Car e Physician Facility:[facility] [place] [place] Start: 10-30-2024 End: 11-01-2024 Evaluation and management of inpatient Dr. Nehemiah Haney DO -Pro[facility] Unit Work Phone: Start: 08-19-2024 End: 08-19-2024 Patient encounter procedure Yefri Sotelo MD -[facility] Work Phone: Start: 08-19-2024 End: 08-19-2024 ambulatory No Primary Care Physician [facility] Work Phone: Start: 08-19-2024 End: 08-19-2024 ambulatory No Primary Care Physician Facility:[facility] Start: 11-27-2023 End: 11-27-2023 Patient encounter procedure Vonnie Dickerson APRN.CIVIL TECHNICIAN Work Phone: [facility] Comment on above: Chest pressure (Prim michael Dx) Start: 11-27-2023 End: 11-27-2023 Emergency department patient visit No Primary Care Physician Facility:[facility] Start: 11-27-2023 End: 11-27-2023 ambulatory Facility:[facility] Procedures Date Procedure Procedure Detail Performing Clinician Start: 11-10-2024 Estimated creatinine clearance No Primary Care Physician Start: 11-08-2024 Serum inorganic phos phate measurement No Primary Care Physician Start: 11-05-2024 Computed tomography of abdomen and pelvis with contrast No Primary Care Physician Start: 11-05-2024 CT of abdomen No Primar y Care Physician Start: 11-03-2024 Urnls dip stick/tabl et reagent auto microscopy No Primary Care Physician Start: 11-03-2024 Estimated creatinine clearance No Primary Care Physician Start: 11-02-2024 Serum inorganic phos phate measurement No Primary Care Physician Start: 11-01-2024 Estimated creatinine clearance No Primary Care Physician Start: 10-31-2024 Targeted analysis fo r gene mutation No Primary Care Physician Comment on above: Result: NEGATIVE for the JAK2 V617F mutation.Interpretation: The G to T nucleotide change encoding [id number] mutation was not detected. This result does not ruleout the presence of the JAK2 mutation at a level below thesensitivity of detection of this assay, or the presence ofother mutations within JAK2 not detected by this assay.This result does not rule out a diagnosis of polycythemiavera, essential thrombocythemia or idiopathicmyelofibrosis as the V617F mutation is not detected inall patients with these disorders. Start: 10-31-2024 MRI of brain without contrast No Primary Care Physician Start: 10-30-2024 Plain chest X-ray No Pr imary Care Physician Start: 10-30-2024 CT angiography of head and neck No Primary Care Physician Start: 10-30-2024 CT of head without contrast No Primary Care Physician Start: 10-30-2024 Estimated creatinine clearance No Primary Care Physician Start: 10-30-2024 Methadone measurement, urine No Primary Care Physician Start: 08-19-2024 X-ray of foot, three or more views No Primary Care Physician Plan of Treatment Date Care Activity Detail Author Start: 11-10-2024 Patient discharge [facility] Start: 11-09-2024 [facility] Start: 11-07-2024 Phlebotomy [facility] Start: 11-05-2024 Phlebotomy [facility] Start: 11-04-2024 [facility] Start: 11-04-2024 [facility] Start: 11-04-2024 Notification of physician [facility] Start: 11-04-2024 Patient education [facility] Start: 11-04-2024 Provision of activity privileges [facility] Start: 11-04-2024 Pulse taking [facility] Start: 11-04-2024 Taking patient vital signs [facility] Start: 11-04-2024 Wound care [facility] Start: 11-04-2024 [facility] Start: 11-04-2024 Following clinical pathway protocol [facility] Start: 11-04-2024 Referral to undercoater [facility] Start: 11-04-2024 Ambulation without limitation [facility] Start: 11-04-2024 Assessment of risk of venous thromboembolism [facility] Start: 11-04-2024 Insertion of catheter into peripheral vein [facility] Start: 11-04-2024 Measuring intake and output [facility] Start: 11-04-2024 Providing care according to standard [facility] Start: 11-04-2024 Referral to occupational therapist [facility] Start: 11-04-2024 Referral to service [facility] Start: 11-04-2024 [facility] Start: 11-04-2024 Consultation [facility] Start: 11-04-2024 Admission procedure [facility] Start: 11-04-2024 End: 11-04-2024 [facility] Start: 11-04-2024 Catheterization of left heart [facility] Start: 11-04-2024 Patient discharge [facility] Start: 11-04-2024 Catheterization of vein [facility] Start: 11-04-2024 Notification of physician [facility] Start: 11-04-2024 Preoperative care [facility] Start: 11-04-2024 Consultation [facility] Start: 11-04-2024 Referral to undercoater [facility] Start: 11-04-2024 [facility] Start: 11-04-2024 Consultation [facility] Start: 11-04-2024 Patient referral to dietitian [facility] Start: 11-03-2024 End: 11-04-2024 [facility] Start: 11-01-2024 End: 11-02-2024 Patient referral to dietitian [facility] Start: 11-01-2024 [facility] Start: 11-01-2024 [facility] Start: 11-01-2024 Following clinical pathway protocol [facility] Start: 11-01-2024 Recommendation to continue with treatment [facility] Start: 11-01-2024 Referral to service [facility] Start: 11-01-2024 Urinary bladder training [facility] Start: 11-01-2024 Admission procedure [facility] Start: 11-01-2024 Measuring intake and output [facility] Start: 11-01-2024 Vital signs measurements [facility] Start: 11-01-2024 [facility] Start: 11-01-2024 Referral to occupational therapist [facility] Start: 11-01-2024 Patient discharge [facility] Start: 11-01-2024 Speech therapy assessment [facility] Start: 10-31-2024 [facility] Start: 10-31-2024 Application of intermittent pneumatic compression device [facility] Start: 10-31-2024 Following clinical pathway protocol [facility] Start: 10-31-2024 Aspiration precautions [facility] Start: 10-31-2024 Cardiac monitoring [facility] Start: 10-31-2024 Catheterization of vein [facility] Start: 10-31-2024 Consultation [facility] Start: 10-31-2024 Elevation of head of bed [facility] Start: 10-31-2024 Exercises [facility] Start: 10-31-2024 Notification of physician [facility] Start: 10-31-2024 Oxygen therapy [facility] Start: 10-31-2024 End: 10-31-2024 Patient referral to dietitian [facility] Start: 10-31-2024 Referral to occupational therapist [facility] Start: 10-31-2024 Referral to service [facility] Start: 10-31-2024 Speech therapy assessment [facility] Start: 10-31-2024 Telemedicine consultation with patient [facility] Start: 10-31-2024 Tobacco use cessation education [facility] Start: 10-31-2024 End: 10-31-2024 [facility] Start: 10-31-2024 Vital signs measurements [facility] Start: 10-30-2024 MRI of brain without contrast Brain without Contrast [facility] Start: 10-30-2024 Hospital admission, emergency, from emergency room, medical nature [facility] Start: 10-30-2024 Admission procedure [facility] Start: 10-30-2024 Thyroid stimulating hormone measurement [facility] Start: 10-30-2024 Oxygen therapy [facility] Start: 10-30-2024 [facility] Start: 12-03-2023 Influenza vaccination Influenza Vaccine (#1) [facility] Start: 2023 Screening for malignant neoplasm of breast Mammogram Screening [facility] Start: 12-02-2022 Covid-19 Vaccine ( season) Covid-19 Vaccine () [facility] Start: 07-23-2021 Screening for malignant neoplasm of cervix Cervical Cancer Screening [facility] Start: 04-09-2020 Annual PCP Team Chronic Disease Visit Annual PCP Team Chronic Disease Visit [facility] Start: 10-10-2002 Hepatitis B Vaccine (1 of 3 - 19+ 3-dose series) Hepatitis B Vaccine (1 of 3 - 19+ 3-dose series) [facility] Start: 10-10-2002 Urine microalbumin profile DTaP,Tdap,Td Vaccine (1 - Tdap) [facility] Start: 10-10-2001 Anxiety Screening Anxiety Screening [facility] Start: 10-10-2001 BP Controlled (<130/80) BP Controlled (<130/80) [facility] Start: 10-10-2001 Depression Screening Depression Screening [facility] Start: 10-10-2001 Hepatitis C screening Hepatitis C Screening [facility] Start: 10-10-2001 HIV screening HIV Screening [facility] Amphetamines [Presen ce] in Urine by Screen method >1000 ng/mL [facility] Anion gap in Serum o r Plasma [facility] Benzodiazepine measurement, urine [facility] BUN/Creatinine ratio [facility] Calcium [Mass/volume ] in Serum or Plasma [facility] Carbon dioxide, tota l [Moles/volume] in Central venous blood [facility] Cardiac event recording [facility] Cocaine measurement, urine [facility] Creatinine [Mass/vol ume] in Serum or Plasma [facility] Erythropoietin (EPO) [Units/volume] in Serum or Plasma [facility] fentaNYL [Presence] in Urine by Screen method [facility] Folate [Moles/volume ] in Serum or Plasma [facility] Glucose [Mass/volume ] in Serum or Plasma [facility] JAK2 gene p.[id number] [Presence] in Blood or Tissue by Molecular genetics method [facility] JAK2 gene p.[id number] [Presence] in Blood or Tissue by Molecular genetics method [facility] Measurement of renal function [facility] Methadone measuremen t, urine [facility] Patient Education Discharge Inst ructions for Stroke [facility] Work Phone: Phencyclidine [Prese nce] in Urine [facility] Potassium measurement [facility] Serum chloride measurement [facility] Sodium measurement [facility] Troponin T.cardiac [Mass/volume] in Serum or Plasma by High sensitivity method [facility] Troponin T.cardiac [Mass/volume] in Serum or Plasma by High sensitivity method [facility] Urea nitrogen [Mass/volume] in Serum or Plasma [facility] Urine cannabinoid measurement [facility] Urine opiate measurement [facility] Immunizations Immunization Date Immunization Notes Care Provider Fa cility 08-13-2020 Covid (Pfizer) No Primary Ca re Physician [facility] 07-23-2020 Covid (Pfizer) No Primary Ca re Physician [facility] Payers Date Payer Category Payer Self-pay [id number] 2023 Unknown [id number] 2013 Medicaid [id number] 2013 Unknown [id number] Unknown [id number] 2.16.8 [id number] Unknown [id number] 2.16.8 [id number] Unknown [id number] 2.16.8 40.1.763299.3.579.2.462 Unknown [id number] 2.16.8 40.1.480083.3.579.2.462 Unknown [id number] 2.16.8 40.1.831395.3.579.2.462 Unknown [id number] 2.16.8 40.1.827957.3.579.2.462 Unknown [id number] 2.16.8 40.1.245770.3.579.2.462 Unknown [id number] 2.16.8 40.1.476472.3.579.2.462 Unknown [id number] 2.16.8 40.1.323998.3.579.2.462 Unknown [id number] 2.16.8 40.1.793869.3.579.2.462 Unknown [id number] 2.16.8 40.1.873098.3.579.2.462 Unknown [id number] 2.16.8 40.1.729589.3.579.2.462 Unknown [id number] 2.16.8 40.1.556688.3.579.2.462 Unknown [id number] 2.16.8 40.1.953122.3.579.2.462 Unknown [id number] 2.16.8 40.1.205455.3.579.2.462 Unknown [id number] 2.16.8 40.1.296852.3.579.2.462 Unknown [id number] 2.16.8 40.1.016979.3.579.2.462 Unknown [id number] 2.16.8 40.1.847187.3.579.2.462 Unknown [id number] 2.16.8 40.1.170172.3.579.2.462 Unknown [id number] 2.16.8 40.1.162696.3.579.2.462 Social History Date Type Detail Facility Start: 02-18-2019 [facility] Start: 01-02-2011 End: 01-03-2016 History of tobacco use Current smoker [facility] Start: 01-02-2011 End: 01-03-2016 History of tobacco use Cigarette Smoker [facility] Start: 02-18-2019 End: 03-11-2020 Cigarettes smoked current (pack per day) - Reported 0.5 [facility] Start: 02-18-2019 Tobacco use and exposure Smokeless tobacco non-user [facility] Start: 05-15-2020 Alcoholic beverage intake Current drinker of alcohol (finding) [facility] Start: 03-11-2020 End: 05-15-2020 Tobacco use panel [facility] National Score (1-10 0), lower number is lower risk Not on file [facility] Start: 1985 Sex assigned at Not on file [facility] Start: 11-27-2023 Tobacco smoking stat us [facility] Never smoked tobacco (finding) [facility] Start: 1985 Sex Assigned At Female [facility] Start: 10-30-2024 End: 11-04-2024 Tobacco smoking status [facility] Smokes tobacco daily (finding) [facility] Start: 11-01-2024 Tobacco Use Tobacco Use [facility] Goals Date Patient Goal Desired Activity /State Functional Status Date Assessment Result Facility 11-10-2024 Functional status Bedside [facility] Work Phone: 11-04-2024 Functional status Activity Abili ty With Assist of 1 [facility] Work Phone: 11-04-2024 Functional status Tolerates Activity [facility] Work Phone: 11-02-2024 Functional status Patient Activity [facility] Work Phone: 11-01-2024 Functional status Stand and pivot [facility] Work Phone: Mental Status Date Assessment Result Facility 11-10-2024 Cognitive function Voice/Name [facility] Work Phone: 11-04-2024 Cognitive function Voice/Name [facility] Work Phone: 11-01-2024 Cognitive function Voice/Name [facility] Work Phone: 10-30-2024 Cognitive function Awake;Alert;A ppropriate;Fol lows [facility] Work Phone: Clinical Notes 11-27-2023 to 11-10-2024 Note Date & Type Note Facility 11-10-2024 Discharge summary Note Date/Time November 10, 2024 8:55am [facility] Medical Records Department [address] [place] [address] Discharge Summary 11/10/24 0833 MR#: [id number] Acct: [id number] Name: JAYDA OSHEA Rep #:[id number] : 1985 39 From: Nehemiah Hammond MD PCP: Care Physician,No Primary Status :ADM IN Location: [place] [address] Providers Date of Admission: 11/04/24 Primary Care Physician: No Primary Care Phys Consultations 11/04/24 13:13 Consult: Oncology/Hematology [facility]ine [facility] Reason for Consult: 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 Domingo prior to transfer to [facility] 11/04/24 13:55 Consult: Cardiology Routine Consulting Provider: Law Eduardo Reason for Consult: CP with abnormal EKG EMERGENT Consult: No Notified: Yes Date Notified: 11/04/24 Time Notified: 13:55 Method of Notification: Text Reason For Visit: CHEST PAIN, RECENT CVA Diagnosis Discharge Diagnosis (1) Chest pain: Status: Acute Code(s): R07.9 - Chest pain, unspecified Qualifiers: Chest pain type: chest pain due to myocardial ischemia Ischemic chest pain type: unstable angina pectoris Qualified Code(s): I20.0 - Unstable angina Plan Patient is a 39-year-old lady with recent CVA with significant left-sided deficit who presented with chest pain 1. Chest pain ? EKG demonstrated inferior lateral ST wave changes patient underwent left heartcatheterization which showed normal coronaries and heart function 2.. Recent CVA with residual left-sided deficits ? PT/OT/case management following. Hospitalized from 10/30-11/01 for acute CVA with residual left-sided deficits. Discharged to rehab unit on 11/01. Continue home aspirin and statin.. Patient medically ready to be discharged back to inpatient rehab unit awaiting insurance precertification ? 11/08/2024; awaiting insurance precertification prior to transfer back to the inpatient rehab unit ? 11/09/2024; approval from patient insurance still pending prior to transfer to shelter for 3. Erythrocytosis with concern for polycythemia vera ? Heme-onc consulted. Hemoglobin has been high in the 17-19 range since 10/30 along with elevated hematocrit. Given the events above, have concern for symptomatic polycythemia vera. Erythropoietin level pending. Patient was seen in consultation by heme-onc notes and recommendations reviewed ? 11/06/2024. Scheduled to undergo phlebectomy ? 11/07/2024;Patient had a second section of phlebotomy this a.m. Repeat H&H ordered for 1 PM this afternoon. ? 11/08/2024; patient hematocrit down to 39.2 with hemoglobin of 13.0. 4. Hypertension ? Mildly hypertensive to the 130s to 140s systolic on admit. Continue home lisinopril and hydrochlorothiazide. 5. Tobacco dependence ? Has been without tobacco use since 10/30. No need for nicotine replacement therapy at this time. Discussed cessation on discharge. 6. ADHD ? Hold home Adderall as this could be contributing and contributing factor to her chest pain as well as recent CVA as above. 7. DVT prophylaxis ? Subcu Lovenox 8. Nonsustained VT ? Had runs of nonsustained VT was seen in consultation by Dr. Eduardo cardiology added beta-blockers. Time spent in the patient's overall evaluation,decision-making process, review of diagnostic data, adjustment of management, discussion with other providers, nursing nursing and ancillary staff involved in patient's care documentation, 35 Minutes Medications at Discharge Home Medications loratadine 10 mg tablet (Claritin) 10 mg PO DAILY PRN PRN Allergies 01/25/18 dexamethasone sodium phosphate 0.1 % eye drops 1 drp ophthalmic (eye) 4X/DAY eyeinflamattion 10/30/24 dextroamphetamine-amphetamine 30 mg tablet 1 tab PO BID inflammation 10/30/24 erythromycin 5 mg/gram (0.5 %) eye ointment 1 applic ophthalmic (eye) QHS eye 10/30/24 aspirin 81 mg chewable tablet [facility] 11/01/24 atorvastatin 80 mg tablet 80 mg PO QHS cholesterol #0 tabs 11/01/24 cyclobenzaprine 10 mg tablet 10 mg PO TID PRN PRN Muscle Spasm #0 tabs 11/01/24 lisinopril 10 mg tablet 10 mg PO DAILY blood pressure #0 tabs 11/01/24 metoprolol tartrate 50 mg tablet 50 mg PO BID #0 tabs 11/10/24 Physical Exam Narrative GENERAL: cooperative HEENT: Atraumatic; normocephalic EYES; Anicteric, Normal Conjunctiva NECK; supple, normal thyroid, RESPIRATORY: Diminished to auscultation CARDIOVASCULAR: Regular S1 S2, GI: soft, normoactive bowel sounds, : No Renal angle tenderness; EXTREMITIES: No edema, no clubbing, MUSCULOSKELETAL: no muscle wasting NEURO: Awake; left-sided hemiplegia SKIN: No Rash PSYCH; Flat affect Weight / BMI Weight Weight: 76.839 kg Body Mass Index (BMI) 29.0 ABG / Lab / Microbiology Data 11/10/24 05:55 11/10/24 05:55 Laboratory: Laboratory Results - last 24 hr 11/10/24 05:55: WBC 8.8, RBC 4.23, Hgb 12.7, Hct 38.8, MCV 91.7, MCH 30.0, MCHC 32.7, RDW Std Deviation 39.0, RDW Coeff of Maria Teresa 11.6, Plt Count 384, MPV 10.7, Immature Gran % (Auto) 0.300, Neut % (Auto) 51.5, Lymph % (Auto) 37.4, [place] % (Auto) 8.7, Eos % (Auto) 1.6, Baso % (Auto) 0.5, Absolute Neuts (auto) 4.5, Absolute Lymphs (auto) 3.28, Nucleated RBC % 0, Sodium 141, Potassium 4.2, Chloride 107, Carbon Dioxide 26.0, Anion Gap 9, BUN 12, Creatinine 0.60 L, EstimCreat Clear Calc 123.80, Est GFR (MDRD) Non-Af 116, BUN/Creatinine Ratio 19.8, Glucose 98, Calcium 9.2 D/C Instructions Discharge Activity: Return to Normal Activity Call your doctor if you observe: Fever of 101 or Higher, Shortness of breath, Fainting spells and Chest pain DC O2, CPAP, BIPAP Needs Home O2 Discharge instructions: No Meaningful Use Info Meaningful Use Meaningful Use Diagnoses (Choose all that apply): None applicable Discharge Plan Admission Admit Date/Time: 11/04/24 13:09 Attending Provider: Nehemiah Hammond Primary Care Provider: Care Physician,No Primary Consulting Providers: Nehemiah Ugarte; Shaun Del Angel; Trae Washington; Ann Andrews; Chase Mccauley; Jonathan Pérez; Aaron Crooks; Aubrey Saxena; Angelica Lawson NP; Law Eduardo; Kaleb Horta Discharge Orders/Prescriptions Prescriptions: New metoprolol tartrate 50 mg Tablet 50 mg PO BID Qty: 0 0RF Continued loratadine [Claritin] 10 MG tablet 10 mg PO DAILY PRN PRN (Reason: Allergies) dexamethasone sodium phosphate 0.1 % drops 1 drp ophthalmic (eye) 4X/DAY dextroamphetamine-amphetamine 30 mg tablet 1 tab PO BID erythromycin 5 mg/gram (0.5 %) ointment 1 applic ophthalmic (eye) QHS cyclobenzaprine 10 mg Tablet 10 mg PO TID PRN PRN (Reason: Muscle Spasm) Qty: 0 0RF atorvastatin 80 mg Tablet 80 mg PO QHS Qty: 0 0RF lisinopril 10 mg Tablet 10 mg PO DAILY Qty: 0 0RF aspirin 81 mg Tablet,Chewable 81 mg PO DAILYCM Qty: 0 0RF Discontinued hydrochlorothiazide 12.5 mg Capsule 12.5 mg PO DAILY Qty: 0 0RF Referrals / Follow Up: Shaun Del Angel MD [Med Staff - Active Staff] - Within 1 Month Care Physician,No Primary [Primary Care Provider] - Disposition Disposition (needs filled in before D/C Order can be placed): Inpatient Rehab Unit/Facility Charges/Coding Visit Charges Inpatient E&M: 27232 Disch Hosp >30min 11/10/24 0855 <Electronically signed by Nehemiah Hammond MD> Cosigner Signature (if applicable): CC: Dr. Nehemiah Hammond MD; No Primary Care Physician~ Signed [facility] Work Phone: [phone]) 424-292008-10-2025 Discharge summary [facility] Medical Records Department [address] [place] [address] Discharge Summary 11/10/24 0833 MR#: [id number] Acct: [id number] Name: JAYDA OSHEA Rep #:[id number] : 1985 39 From: Nehemiah Hammond MD PCP: Care Physician,No Primary Status :ADM IN Location: [place] [address] Providers Date of Admission: 11/04/24 Primary Care Physician: Felicita Primary Care Phys Consultations 11/04/24 13:13 Consult: Oncology/Hematology Routine Consulting Provider: [facility] Reason for Consult: 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 Domingo prior to transfer to [facility] 11/04/24 13:55 Consult: Cardiology Routine Consulting Provider: Law Eduardo Reason for Consult: CP with abnormal EKG EMERGENT Consult: No MD Notified: Yes Date Notified: 11/04/24 Time Notified: 13:55 Method of Notification: Text Reason For Visit: CHEST PAIN, RECENT CVA Diagnosis Discharge Diagnosis (1) Chest pain: Status: Acute Code(s): R07.9 - Chest pain, unspecified Qualifiers: Chest pain type: chest pain due to myocardial ischemia Ischemic chest pain type: unstable angina pectoris Qualified Code(s): I20.0 - Unstable angina Plan Patient is a 39-year-old lady with recent CVA with significant left-sided deficit who presented with chest pain 1. Chest pain ? EKG demonstrated inferior lateral ST wave changes patient underwent left heartcatheterization which showed normal coronaries and heart function 2.. Recent CVA with residual left-sided deficits ? PT/OT/case management following. Hospitalized from 10/30-11/01 for acute CVA with residual left-sided deficits. Discharged to rehab unit on 11/01. Continue home aspirin and statin.. Patient medically ready to be discharged back to inpatient rehab unit awaiting insurance precertification ? 11/08/2024; awaiting insurance precertification prior to transfer back to the inpatient rehab unit ? 11/09/2024; approval from patient insurance still pending prior to transfer to shelter for 3. Erythrocytosis with concern for polycythemia vera ? Heme-onc consulted. Hemoglobin has been high in the 17-19 range since 10/30 along with elevated hematocrit. Given the events above, have concern for symptomatic polycythemia vera. Erythropoietin level pending. Patient was seen in consultation by heme-onc notes and recommendations reviewed ? 11/06/2024. Scheduled to undergo phlebectomy ? 11/07/2024;Patient had a second section of phlebotomy this a.m. Repeat H&H ordered for 1 PM this afternoon. ? 11/08/2024; patient hematocrit down to 39.2 with hemoglobin of 13.0. 4. Hypertension ? Mildly hypertensive to the 130s to 140s systolic on admit. Continue home lisinopril and hydrochlorothiazide. 5. Tobacco dependence ? Has been without tobacco use since 10/30. No need for nicotine replacement therapy at this time. Discussed cessation on discharge. 6. ADHD ? Hold home Adderall as this could be contributing and contributing factor to her chest pain as well as recent CVA as above. 7. DVT prophylaxis ? Subcu Lovenox 8. Nonsustained VT ? Had runs of nonsustained VT was seen in consultation by Dr. Eduardo cardiology added beta-blockers. Time spent in the patient's overall evaluation,decision-making process, review of diagnostic data, adjustment of management, discussion with other providers, nursing nursing and ancillary staff involved in patient's care documentation, 35 Minutes Medications at Discharge Home Medications loratadine 10 mg tablet (Claritin) 10 mg PO DAILY PRN PRN Allergies 01/25/18 dexamethasone sodium phosphate 0.1 % eye drops 1 drp ophthalmic (eye) 4X/DAY eyeinflamattion 10/30/24 dextroamphetamine-amphetamine 30 mg tablet 1 tab PO BID inflammation 10/30/24 erythromycin 5 mg/gram (0.5 %) eye ointment 1 applic ophthalmic (eye) QHS eye 10/30/24 aspirin 81 mg chewable tablet 81 mg PO DAILYCM heart health #0 tabs 11/01/24 atorvastatin 80 mg tablet 80 mg PO QHS cholesterol #0 tabs 11/01/24 cyclobenzaprine 10 mg tablet 10 mg PO TID PRN PRN Muscle Spasm #0 tabs 11/01/24 lisinopril 10 mg tablet 10 mg PO DAILY blood pressure #0 tabs 11/01/24 metoprolol tartrate 50 mg tablet 50 mg PO BID #0 tabs 11/10/24 Physical Exam Narrative GENERAL: cooperative HEENT: Atraumatic; normocephalic EYES; Anicteric, Normal Conjunctiva NECK; supple, normal thyroid, RESPIRATORY: Diminished to auscultation CARDIOVASCULAR: Regular S1 S2, GI: soft, normoactive bowel sounds, : No Renal angle tenderness; EXTREMITIES: No edema, no clubbing, MUSCULOSKELETAL: no muscle wasting NEURO: Awake; left-sided hemiplegia SKIN: No Rash PSYCH; Flat affect Weight / BMI Weight Weight: 76.839 kg Body Mass Index (BMI) 29.0 ABG / Lab / Microbiology Data 11/10/24 05:55 11/10/24 05:55 Laboratory: Laboratory Results - last 24 hr 11/10/24 05:55: WBC 8.8, RBC 4.23, Hgb 12.7, Hct 38.8, MCV 91.7, MCH 30.0, MCHC 32.7, RDW Std Deviation 39.0, RDW Coeff of Maria Teresa 11.6, Plt Count 384, MPV 10.7, Immature Gran % (Auto) 0.300, Neut % (Auto) 51.5, Lymph % (Auto) 37.4, [place] % (Auto) 8.7, Eos % (Auto) 1.6, Baso % (Auto) 0.5, Absolute Neuts(auto) 4.5, Absolute Lymphs (auto) 3.28, Nucleated RBC % 0, Sodium 141, Potassium 4.2, Chloride 107, Carbon Dioxide 26.0, Anion Gap 9, BUN 12, Creatinine 0.60 L, EstimCreat Clear Calc 123.80, Est GFR(MDRD) Non-Af 116, BUN/Creatinine Ratio 19.8, Glucose 98, Calcium 9.2 D/C Instructions Discharge Activity: Return to Normal Activity Call your doctor if you observe: Fever of 101 or Higher, Shortness of breath, Fainting spells and Chest pain DC O2, CPAP, BIPAP Needs Home O2 Discharge instructions: No Meaningful Use Info Meaningful Use Meaningful Use Diagnoses (Choose all that apply): None applicable Discharge Plan Admission Admit Date/Time: 11/04/24 13:09 Attending Provider: Nehemiah Hammond Primary Care Provider: Care Physician,No Primary Consulting Providers: Nehemiah Ugarte; Shaun Del Angel; Trae Washington; Ann Andrews; Chase Mccauley;Jonathan Pérez; Aaron Crooks; Aubrey Saxena; Angelica Lawson NP; Law Eduardo; Kaleb Horta Discharge Orders/Prescriptions Prescriptions: New metoprolol tartrate 50 mg Tablet 50 mg PO BID Qty: 0 0RF Continued loratadine [Claritin] 10 MG tablet 10 mg PO DAILY PRN PRN (Reason: Allergies) dexamethasone sodium phosphate 0.1 % drops 1 drp ophthalmic (eye) 4X/DAY dextroamphetamine-amphetamine 30 mg tablet 1 tab PO BID erythromycin 5 mg/gram (0.5 %) ointment 1 applic ophthalmic (eye) QHS cyclobenzaprine 10 mg Tablet 10 mg PO TID PRN PRN (Reason: Muscle Spasm) Qty: 0 0RF atorvastatin 80 mg Tablet 80 mg PO QHS Qty: 0 0RF lisinopril 10 mg Tablet 10 mg PO DAILY Qty: 0 0RF aspirin 81 mg Tablet,Chewable 81 mg PO DAILYCM Qty: 0 0RF Discontinued hydrochlorothiazide 12.5 mg Capsule 12.5 mg PO DAILY Qty: 0 0RF Referrals / Follow Up: Shaun Del Angel MD [Med Staff - Active Staff] - Within 1 Month Care Physician,No Primary [Primary Care Provider] - Disposition Disposition (needs filled in before D/C Order can be placed): Inpatient Rehab Unit/Facility Charges/Coding Visit Charges Inpatient E&M: 56696 Disch Hosp >30min 11/10/24 0855 Cosigner Signature (if applicable): CC: Dr. Nehemiah Hammond MD; No Primary Care Physician~ Signed [facility]08-09-2025 Progress note Author Nehemiah Hammond [facility] Note Date/Time November 09, 2024 10: 29am [facility] Medical Records Department [address] [place] [address] Progress Note - Hospitalist 11/09/2429 MR#: [id number] Acct: [id number] Name: JAYDA OSHEA Rep #:[id number] : 1985 39 From: Nehemiah Hammond MD PCP: Care Physician,No Primary Status :ADM IN Location: [place] [address] Reason for Visit Chief Complaint: Chest pain Subjective Subjective No change in patient clinical condition awaiting insurance approval prior to transfer to the inpatient rehab unit Objective Data Objective Data Vital Signs: Vital Signs Temp Pulse Resp BP Pulse Ox O2 Del Method 97.9 F 75 13 112/71 96 Room Air 11/09/24 03:28 11/09/24 03:28 11/09/24 03:28 11/09/24 03:28 11/09/24 03:28 11/09/24 03:28 Oxygen Delivery Method Room Air Weight: 76.839 kg Body Mass Index (BMI) 29.0 Intake & Output: Intake and Output for Last 24 Hours 11/07/24 11/08/24 11/09/24 23:59 23:59 23:59 Intake Total 1999 / 1999 3400 / 3400 Output Total 850 / 1100 1050 / 1050 900 / 900 Balance 1150 / 900 2350 / 2350 -900 / -900 Lab / Micro Data 11/09/24 03:17 11/09/24 03:17 Labs: Laboratory Results - last 24 hr 11/08/24 06:45: WBC 8.6, RBC 4.26, Hgb 13.0, Hct 39.2, MCV 92.0, MCH 30.5, MCHC 33.2, RDW Std Deviation 39.6, RDW Coeff of Maria Teresa 11.7, Plt Count 329, MPV 10.7, Immature Gran % (Auto) 0.300, Neut % (Auto) 55.6, Lymph % (Auto) 32.3, [place] % (Auto) 9.0, Eos % (Auto) 2.2, Baso % (Auto) 0.6, Absolute Neuts (auto) 4.8, Absolute Lymphs (auto) 2.78, Nucleated RBC % 0, Sodium 138, Potassium 4.3, Chloride 108, Carbon Dioxide 20.9 L, Anion Gap 9, BUN 13, Creatinine 0.49 L, Estim Creat Clear Calc 151.59, Est GFR (MDRD) Non-Af 121, BUN/Creatinine Ratio 26.1 H, Glucose 94, Calcium 8.4, Phosphorus 3.5, Magnesium 2.4 H 11/09/24 03:17: WBC 9.1, RBC 3.95 L, Hgb 12.0, Hct 35.7 L, MCV 90.4, MCH 30.4, MCHC 33.6, RDW Std Deviation 38.4, RDW Coeff of Maria Teresa 11.6, Plt Count 325, MPV 10.5, Immature Gran % (Auto) 0.300, Neut % (Auto) 55.4, Lymph % (Auto) 32.6, [place] % (Auto) 9.2, Eos % (Auto) 1.9, Baso % (Auto) 0.6, Absolute Neuts (auto) 5.0, Absolute Lymphs (auto) 2.95, Nucleated RBC % 0, Sodium 140, Potassium 4.2, Chloride 108, Carbon Dioxide 23.8, Anion Gap 9, BUN 12, Creatinine 0.57 L, EstimCreat Clear Calc 130.32, Est GFR (MDRD) Non-Af 117, BUN/Creatinine Ratio 20.4 H,Glucose 123 H, Calcium 8.9 Physical Exam Narrative GENERAL: cooperative HEENT: Atraumatic; normocephalic EYES; Anicteric, Normal Conjunctiva NECK; supple, normal thyroid, RESPIRATORY: Diminished to auscultation CARDIOVASCULAR: Regular S1 S2, GI: soft, normoactive bowel sounds, : No Renal angle tenderness; EXTREMITIES: No edema, no clubbing, MUSCULOSKELETAL: no muscle wasting NEURO: Awake; left-sided hemiplegia SKIN: No Rash PSYCH; Flat affect Assessment & Plan Assessment/Plan (1) Chest pain: QUALIFIERS: Chest pain type: chest pain due to myocardial ischemia Ischemic chest pain type: unstable angina pectoris Qualified Code(s): I20.0 - Unstable angina PLAN: Plan Patient is a 39-year-old lady with recent CVA with significant left-sided deficit who presented with chest pain 1. Chest pain ? EKG demonstrated inferior lateral ST wave changes patient underwent left heartcatheterization which showed normal coronaries and heart function 2.. Recent CVA with residual left-sided deficits ? PT/OT/case management following. Hospitalized from 10/30-11/01 for acute CVA with residual left-sided deficits. Discharged to rehab unit on 11/01. Continue home aspirin and statin.. Patient medically ready to be discharged back to inpatient rehab unit awaiting insurance precertification ? 11/08/2024; awaiting insurance precertification prior to transfer back to the inpatient rehab unit ? 11/09/2024; approval from patient insurance still pending prior to transfer to shelter for 3. Erythrocytosis with concern for polycythemia vera ? Heme-onc consulted. Hemoglobin has been high in the 17-19 range since 10/30 along with elevated hematocrit. Given the events above, have concern for symptomatic polycythemia vera. Erythropoietin level pending. Patient was seen in consultation by heme-onc notes and recommendations reviewed ? 11/06/2024. Scheduled to undergo phlebectomy ? 11/07/2024;Patient had a second section of phlebotomy this a.m. Repeat H&H ordered for 1 PM this afternoon. ? 11/08/2024; patient hematocrit down to 39.2 with hemoglobin of 13.0. 4. Hypertension ? Mildly hypertensive to the 130s to 140s systolic on admit. Continue home lisinopril and hydrochlorothiazide. 5. Tobacco dependence ? Has been without tobacco use since 10/30. No need for nicotine replacement therapy at this time. Discussed cessation on discharge. 6. ADHD ? Hold home Adderall as this could be contributing and contributing factor to her chest pain as well as recent CVA as above. 7. DVT prophylaxis ? Subcu Lovenox 8. Nonsustained VT ? Had runs of nonsustained VT was seen in consultation by Dr. Eduardo cardiology added beta-blockers. Time spent in the patient's overall evaluation,decision-making process, review of diagnostic data, adjustment of management, discussion with other providers, nursing nursing and ancillary staff involved in patient's care documentation, 35 Minutes Charges/Coding Visit Charges Inpatient E&M: 70678 Subs Hosp L2 Date medically ready for discharge: 11/08/24 Reason for DC delay: Precert pending from insurance 11/09/24 1029 <Electronically signed by Nehemiah Hammond MD> Cosigner Signature (if applicable): CC: ~ Signed [facility] Work Phone: 1(883) 730-181108-09-2025 Progress note [facility] Medical Records Department [address] [place] [address] Progress Note - Hospitalist 11/09/24 0729 MR#: [id number] Acct: [id number] Name: JAYDA OSHEA Rep #:[id number] : 1985 39 From: Nehemiah Hammond MD PCP: Care Physician,No Primary Status :ADM IN Location: [place] [id number] Reason for Visit Chief Complaint: Chest pain Subjective Subjective No change in patient clinical condition awaiting insurance approval prior to transfer to the inpatient rehab unit Objective Data Objective Data Vital Signs: Vital Signs Temp Pulse Resp BP Pulse Ox O2 Del Method 97.9 F 75 13 112/71 96 Room Air 11/09/24 03:28 11/09/24 03:28 11/09/24 03:28 11/09/24 03:28 11/09/24 03:28 11/09/24 03:28 Oxygen Delivery Method Room Air Weight: 76.839 kg Body Mass Index (BMI) 29.0 Intake & Output: Intake and Output for Last 24 Hours 11/07/24 11/08/24 11/09/24 23:59 23:59 23:59 Intake Total 2000 / 2000 3400 / 3400 Output Total 850 / 1100 1050 / 1050 900 / 900 Balance 1150 / 900 2350 / 2350 -900 / -900 Lab / Micro Data 11/09/24 03:17 11/09/24 03:17 Labs: Laboratory Results - last 24 hr 11/08/24 06:45: WBC 8.6, RBC 4.26, Hgb 13.0, Hct 39.2, MCV 92.0, MCH 30.5, MCHC 33.2, RDW Std Deviation 39.6, RDW Coeff of Maria Teresa 11.7, Plt Count 329, MPV 10.7, Immature Gran % (Auto) 0.300, Neut % (Auto) 55.6, Lymph % (Auto) 32.3, [place] % (Auto) 9.0, Eos % (Auto) 2.2, Baso % (Auto) 0.6, Absolute Neuts(auto) 4.8, Absolute Lymphs (auto) 2.78, Nucleated RBC % 0, Sodium 138, Potassium 4.3, Chloride 108, Carbon Dioxide 20.9 L, Anion Gap 9, BUN 13, Creatinine 0.49 L, Estim Creat Clear Calc 151.59, Est GFR (MDRD) Non-Af 121, BUN/Creatinine Ratio 26.1 H, Glucose 94, Calcium 8.4, Phosphorus 3.5, Magnesium 2.4 H 11/09/24 03:17: WBC 9.1, RBC 3.95 L, Hgb 12.0, Hct 35.7 L, MCV 90.4, MCH 30.4, MCHC 33.6, RDW Std Deviation 38.4, RDW Coeff of Maria Teresa 11.6, Plt Count 325, MPV 10.5, Immature Gran % (Auto) 0.300, Neut % (Auto) 55.4, Lymph % (Auto) 32.6, [place] % (Auto) 9.2, Eos % (Auto) 1.9, Baso % (Auto) 0.6, Absolute Neuts (auto) 5.0, Absolute Lymphs (auto) 2.95, Nucleated RBC % 0, Sodium 140, Potassium 4.2, [id number], Carbon Dioxide 23.8, Anion Gap 9, BUN 12, Creatinine 0.57 L, EstimCreat Clear Calc 130.32, EstGFR (MDRD) Non-Af 117, BUN/Creatinine Ratio 20.4 H,Glucose 123 H, Calcium 8.9 Physical Exam Narrative GENERAL: cooperative HEENT: Atraumatic; normocephalic EYES; Anicteric, Normal Conjunctiva NECK; supple, normal thyroid, RESPIRATORY: Diminished to auscultation CARDIOVASCULAR: Regular S1 S2, GI: soft, normoactive bowel sounds, : No Renal angle tenderness; EXTREMITIES: No edema, no clubbing, MUSCULOSKELETAL: no muscle wasting NEURO: Awake; left-sided hemiplegia SKIN: No Rash PSYCH; Flat affect Assessment & Plan Assessment/Plan (1) Chest pain: QUALIFIERS: Chest pain type: chest pain due to myocardial ischemia Ischemic chest pain type: unstable angina pectoris Qualified Code(s): I20.0 - Unstable angina PLAN: Plan Patient is a 39-year-old lady with recent CVA with significant left-sided deficit who presented with chest pain 1. Chest pain ? EKG demonstrated inferior lateral ST wave changes patient underwent left heartcatheterization which showed normal coronaries and heart function 2.. Recent CVA with residual left-sided deficits ? PT/OT/case management following. Hospitalized from 10/30-11/01 for acute CVA with residual left-sided deficits. Discharged to rehab unit on 11/01. Continue home aspirin and statin.. Patient medically ready to be discharged back to inpatient rehab unit awaiting insurance precertification ? 11/08/2024; awaiting insurance precertification prior to transfer back to the inpatient rehab unit ? 11/09/2024; approval from patient insurance still pending prior to transfer to shelter for 3. Erythrocytosis with concern for polycythemia vera ? Heme-onc consulted. Hemoglobin has been high in the 17-19 range since 10/30 along with elevated hematocrit. Given the events above, have concern for symptomatic polycythemia vera. Erythropoietin level pending. Patient was seen in consultation by heme-onc notes and recommendations reviewed ? 11/06/2024. Scheduled to undergo phlebectomy ? 11/07/2024;Patient had a second section of phlebotomy this a.m. Repeat H&H ordered for 1 PM this afternoon. ? 11/08/2024; patient hematocrit down to 39.2 with hemoglobin of 13.0. 4. Hypertension ? Mildly hypertensive to the 130s to 140s systolic on admit. Continue home lisinopril and hydrochlorothiazide. 5. Tobacco dependence ? Has been without tobacco use since 10/30. No need for nicotine replacement therapy at this time. Discussed cessation on discharge. 6. ADHD ? Hold home Adderall as this could be contributing and contributing factor to her chest pain as well as recent CVA as above. 7. DVT prophylaxis ? Subcu Lovenox 8. Nonsustained VT ? Had runs of nonsustained VT was seen in consultation by Dr. Eduardo cardiology added beta-blockers. Time spent in the patient's overall evaluation,decision-making process, review of diagnostic data, adjustment of management, discussion with other providers, nursing nursing and ancillary staff involved in patient's care documentation, 35 Minutes Charges/Coding Visit Charges Inpatient E&M: 58863 Subs Hosp L2 Date medically ready for discharge: 11/08/24 Reason for DC delay: Precert pending from insurance 11/09/24 1029 Cosigner Signature (if applicable): CC: ~ Signed [facility]08-08-2025 Progress note Author Nehemiah Hammond [facility] Note Date/Time November 08, 2024 9:[address] [facility] Medical Records Department [address] [place] [address] Progress Note - Hospitalist 11/08/24 0751 MR#: [id number] Acct: [id number] Name: JAYDA OSHEA Rep #:[id number] : 1985 39 From: Nehemiah Hammond MD PCP: Care Physician,No Primary Status :ADM IN Location: [place] [address] Reason for Visit Chief Complaint: Chest pain Subjective Subjective Patient hemoglobin down to 13.0 with hematocrit of 39.2. Patient complains of spasms lower extremity. On Flexeril for spasms. Awaiting insurance precertification prior to transfer back to inpatient rehab unit Objective Data Objective Data Vital Signs: Vital Signs Temp Pulse Resp BP Pulse Ox O2 Del Method 98.2 F 92 14 129/77 H 98 Room Air 11/08/24 04:07 11/08/24 04:07 11/08/24 04:07 11/08/24 04:07 11/08/24 04:07 11/08/24 04:08 Oxygen Delivery Method Room Air Weight: 76.839 kg Body Mass Index (BMI) 29.0 Intake & Output: Intake and Output for Last 24 Hours 11/06/24 11/07/24 11/08/24 23:59 23:59 23:59 Intake Total 1950 / 1950 1999 / 1999 1000 / 1000 Output Total 2975 / 2975 850 / 1100 1050 / 1050 Balance -1025 / -1025 1150 / 900 -50 / -50 Lab / Micro Data 11/08/24 06:45 11/08/24 06:45 Labs: Laboratory Results - last 24 hr 11/07/24 10:15: WBC 10.7, RBC 5.10, Hgb 15.8 H, Hct 46.2, MCV 90.6, MCH 31.0, MCHC 34.2, RDW Std Deviation 38.9, RDW Coeff of Maria Teresa 11.7, Plt Count 382, MPV 10.2, Immature Gran % (Auto) 0.300, Neut % (Auto) 63.9, Lymph % (Auto) 24.1, [place] % (Auto) 9.6, Eos % (Auto) 1.7, Baso % (Auto) 0.4, Absolute Neuts (auto) 6.8, Absolute Lymphs (auto) 2.57, Nucleated RBC % 0 11/07/24 13:20: WBC 11.0, RBC 5.03, Hgb 15.4 H, Hct 46.4, MCV 92.2, MCH 30.6, MCHC 33.2, RDW Std Deviation 39.5, RDW Coeff of Maria Teresa 11.8, Plt Count 424, MPV 10.4 11/08/24 06:45: WBC 8.6, RBC 4.26, Hgb 13.0, Hct 39.2, MCV 92.0, MCH 30.5, MCHC 33.2, RDW Std Deviation 39.6, RDW Coeff of Maria Teresa 11.7, Plt Count 329, MPV 10.7, Immature Gran % (Auto) 0.300, Neut % (Auto) 55.6, Lymph % (Auto) 32.3, [place] % (Auto) 9.0, Eos % (Auto) 2.2, Baso % (Auto) 0.6, Absolute Neuts (auto) 4.8, Absolute Lymphs (auto) 2.78, Nucleated RBC % 0 Physical Exam Narrative GENERAL: cooperative HEENT: Atraumatic; normocephalic EYES; Anicteric, Normal Conjunctiva NECK; supple, normal thyroid, RESPIRATORY: Diminished to auscultation CARDIOVASCULAR: Regular S1 S2, GI: soft, normoactive bowel sounds, : No Renal angle tenderness; EXTREMITIES: No edema, no clubbing, MUSCULOSKELETAL: no muscle wasting NEURO: Awake; left-sided hemiplegia SKIN: No Rash PSYCH; Flat affect Assessment & Plan Assessment/Plan (1) Chest pain: QUALIFIERS: Chest pain type: chest pain due to myocardial ischemia Ischemic chest pain type: unstable angina pectoris Qualified Code(s): I20.0 - Unstable angina PLAN: Plan Patient is a 39-year-old lady with recent CVA with significant left-sided deficit who presented with chest pain 1. Chest pain ? EKG demonstrated inferior lateral ST wave changes patient underwent left heartcatheterization which showed normal coronaries and heart function 2.. Recent CVA with residual left-sided deficits ? PT/OT/case management following. Hospitalized from 10/30-11/01 for acute CVA with residual left-sided deficits. Discharged to rehab unit on 11/01. Continue home aspirin and statin.. Patient medically ready to be discharged back to inpatient rehab unit awaiting insurance precertification ? 11/08/2024; awaiting insurance precertification prior to transfer back to the inpatient rehab unit 3. Erythrocytosis with concern for polycythemia vera ? Heme-onc consulted. Hemoglobin has been high in the 17-19 range since 10/30 along with elevated hematocrit. Given the events above, have concern for symptomatic polycythemia vera. Erythropoietin level pending. Patient was seen in consultation by heme-onc notes and recommendations reviewed ? 11/06/2024. Scheduled to undergo phlebectomy ? 11/07/2024;Patient had a second section of phlebotomy this a.m. Repeat H&H ordered for 1 PM this afternoon. ? 11/08/2024; patient hematocrit down to 39.2 with hemoglobin of 13.0. 4. Hypertension ? Mildly hypertensive to the 130s to 140s systolic on admit. Continue home lisinopril and hydrochlorothiazide. 5. Tobacco dependence ? Has been without tobacco use since 10/30. No need for nicotine replacement therapy at this time. Discussed cessation on discharge. 6. ADHD ? Hold home Adderall as this could be contributing and contributing factor to her chest pain as well as recent CVA as above. 7. DVT prophylaxis ? Subcu Lovenox 8. Nonsustained VT ? Had runs of nonsustained VT was seen in consultation by Dr. Eduardo cardiology added beta-blockers. Time spent in the patient's overall evaluation,decision-making process, review of diagnostic data, adjustment of management, discussion with other providers, nursing nursing and ancillary staff involved in patient's care documentation, 35 Minutes Charges/Coding Visit Charges Inpatient E&M: 70633 Subs Hosp L2 Date medically ready for discharge: 11/05/24 Reason for DC delay: Precert pending from insurance 11/08/24 09 <Electronically signed by Nehemiah Hammond MD> Cosigner Signature (if applicable): CC: ~ Signed [facility] Work Phone: 1(234) 643-415408-08-2025 Progress note [facility] Medical Records Department [address] [place] [address] Progress Note - Hospitalist 11/08/24 0751 MR#: [id number] Acct: [id number] Name: JAYDA OSHEA Maritza Rep #:[id number] : 1985 39 From: Nehemiah Hammond MD PCP: Care Physician,No Primary Status :ADM IN Location: [place] [address] Reason for Visit Chief Complaint: Chest pain Subjective Subjective Patient hemoglobin down to 13.0 with hematocrit of 39.2. Patient complains of spasms lower extremity. On Flexeril for spasms. Awaiting insurance precertification prior to transfer back to inpatient rehab unit Objective Data Objective Data Vital Signs: Vital Signs Temp Pulse Resp BP Pulse Ox O2 Del Method 98.2 F 92 14 129/77 H 98 Room Air 11/08/24 04:07 11/08/24 04:07 11/08/24 04:07 11/08/24 04:07 11/08/24 04:07 11/08/24 04:08 Oxygen Delivery Method Room Air Weight: 76.839 kg Body Mass Index (BMI) 29.0 Intake & Output: Intake and Output for Last 24 Hours 11/06/24 11/07/24 11/08/24 23:59 23:59 23:59 Intake Total 1950 / 1950 1999 / 1999 1000 / 1000 Output Total 2975 / 2975 850 / 1100 1050 / 1050 Balance -1025 / -1025 1150 / 900 -50 / -50 Lab / Micro Data 11/08/24 06:45 11/08/24 06:45 Labs: Laboratory Results - last 24 hr 11/07/24 10:15: WBC 10.7, RBC 5.10, Hgb 15.8 H, Hct 46.2, MCV 90.6, MCH 31.0, MCHC 34.2, RDW Std Deviation 38.9, RDW Coeff of Maria Teresa 11.7, Plt Count 382, MPV 10.2, Immature Gran % (Auto) 0.300, Neut % (Auto) 63.9, Lymph % (Auto) 24.1, [place] % (Auto) 9.6, Eos % (Auto) 1.7, Baso % (Auto) 0.4, Absolute Neuts (auto) 6.8, Absolute Lymphs (auto) 2.57, Nucleated RBC % 0 11/07/24 13:20: WBC 11.0, RBC 5.03, Hgb 15.4 H, Hct 46.4, MCV 92.2, MCH 30.6, MCHC 33.2, RDW Std Deviation 39.5, RDW Coeff of Maria Teresa 11.8, Plt Count 424, MPV 10.4 11/08/24 06:45: WBC 8.6, RBC 4.26, Hgb 13.0, Hct 39.2, MCV 92.0, MCH 30.5, MCHC 33.2, RDW Std Deviation 39.6, RDW Coeff of Maria Teresa 11.7, Plt Count 329, MPV 10.7, Immature Gran % (Auto) 0.300, Neut % (Auto) 55.6, Lymph % (Auto) 32.3, [place] % (Auto) 9.0, Eos % (Auto) 2.2, Baso % (Auto) 0.6, Absolute Neuts(auto) 4.8, Absolute Lymphs (auto) 2.78, Nucleated RBC % 0 Physical Exam Narrative GENERAL: cooperative HEENT: Atraumatic; normocephalic EYES; Anicteric, Normal Conjunctiva NECK; supple, normal thyroid, RESPIRATORY: Diminished to auscultation CARDIOVASCULAR: Regular S1 S2, GI: soft, normoactive bowel sounds, : No Renal angle tenderness; EXTREMITIES: No edema, no clubbing, MUSCULOSKELETAL: no muscle wasting NEURO: Awake; left-sided hemiplegia SKIN: No Rash PSYCH; Flat affect Assessment & Plan Assessment/Plan (1) Chest pain: QUALIFIERS: Chest pain type: chest pain due to myocardial ischemia Ischemic chest pain type: unstable angina pectoris Qualified Code(s): I20.0 - Unstable angina PLAN: Plan Patient is a 39-year-old lady with recent CVA with significant left-sided deficit who presented with chest pain 1. Chest pain ? EKG demonstrated inferior lateral ST wave changes patient underwent left heartcatheterization which showed normal coronaries and heart function 2.. Recent CVA with residual left-sided deficits ? PT/OT/case management following. Hospitalized from 10/30-11/01 for acute CVA with residual left-sided deficits. Discharged to rehab unit on 11/01. Continue home aspirin and statin.. Patient medically ready to be discharged back to inpatient rehab unit awaiting insurance precertification ? 11/08/2024; awaiting insurance precertification prior to transfer back to the inpatient rehab unit 3. Erythrocytosis with concern for polycythemia vera ? Heme-onc consulted. Hemoglobin has been high in the 17-19 range since 10/30 along with elevated hematocrit. Given the events above, have concern for symptomatic polycythemia vera. Erythropoietin level pending. Patient was seen in consultation by heme-onc notes and recommendations reviewed ? 11/06/2024. Scheduled to undergo phlebectomy ? 11/07/2024;Patient had a second section of phlebotomy this a.m. Repeat H&H ordered for 1 PM this afternoon. ? 11/08/2024; patient hematocrit down to 39.2 with hemoglobin of 13.0. 4. Hypertension ? Mildly hypertensive to the 130s to 140s systolic on admit. Continue home lisinopril and hydrochlorothiazide. 5. Tobacco dependence ? Has been without tobacco use since 10/30. No need for nicotine replacement therapy at this time. Discussed cessation on discharge. 6. ADHD ? Hold home Adderall as this could be contributing and contributing factor to her chest pain as well as recent CVA as above. 7. DVT prophylaxis ? Subcu Lovenox 8. Nonsustained VT ? Had runs of nonsustained VT was seen in consultation by Dr. Eduardo cardiology added beta-blockers. Time spent in the patient's overall evaluation,decision-making process, review of diagnostic data, adjustment of management, discussion with other providers, nursing nursing and ancillary staff involved in patient's care documentation, 35 Minutes Charges/Coding Visit Charges Inpatient E&M: 10862 Subs Hosp L2 Date medically ready for discharge: 11/05/24 Reason for DC delay: Precert pending from insurance 11/08/24924 Cosigner Signature (if applicable): CC: ~ Signed [facility]08-07-2025 Progress note Author Nehemiah Hammond [facility] Note Date/Time November 07, 2024 10: 13am [facility] Medical Records Department [address] [place] [address] Progress Note - Hospitalist 11/07/24 1006 MR#: [id number] Acct: [id number] Name: JAYDA OSHEA Rep #:[id number] : 1985 39 From: Nehemiah Hammond MD PCP: Care Physician,No Primary Status :ADM IN Location: [place] [address] Reason for Visit Chief Complaint: Chest pain Subjective Subjective Patient had a second section of phlebotomy this a.m. Repeat H&H ordered for 1 PM this afternoon. Objective Data Objective Data Vital Signs: Vital Signs Temp Pulse Resp BP Pulse Ox O2 Del Method 97.9 F 110 H 18 150/105 H 98 Room Air 11/07/24 09:29 11/07/24 09:31 11/07/24 09:29 11/07/24 09:29 11/07/24 09:29 11/07/24 09:42 Oxygen Delivery Method Room Air Weight: 76.839 kg Body Mass Index (BMI) 29.0 Intake & Output: Intake and Output for Last 24 Hours 11/05/24 11/06/24 11/07/24 23:59 23:59 23:59 Intake Total 1100 / 1600 1950 / 1950 400 / 400 Output Total 1750 / 2375 2975 / 2975 350 / 350 Balance -650 / -775 -1025 / -1025 50 / 50 Lab / Micro Data 11/06/24 17:12 11/06/24 06:16 Labs: Laboratory Results - last 24 hr 11/06/24 17:12: Hgb 17.0 H, Hct 51.2 H Physical Exam Narrative GENERAL: cooperative HEENT: Atraumatic; normocephalic EYES; Anicteric, Normal Conjunctiva NECK; supple, normal thyroid, RESPIRATORY: Diminished to auscultation CARDIOVASCULAR: Regular S1 S2, GI: soft, normoactive bowel sounds, : No Renal angle tenderness; EXTREMITIES: No edema, no clubbing, MUSCULOSKELETAL: no muscle wasting NEURO: Awake; left-sided hemiplegia SKIN: No Rash PSYCH; Flat affect Assessment & Plan Assessment/Plan (1) Chest pain: QUALIFIERS: Chest pain type: chest pain due to myocardial ischemia Ischemic chest pain type: unstable angina pectoris Qualified Code(s): I20.0 - Unstable angina PLAN: Plan Patient is a 39-year-old lady with recent CVA with significant left-sided deficit who presented with chest pain 1. Chest pain ? EKG demonstrated inferior lateral ST wave changes patient underwent left heartcatheterization which showed normal coronaries and heart function 2.. Recent CVA with residual left-sided deficits ? PT/OT/case management following. Hospitalized from 10/30-11/01 for acute CVA with residual left-sided deficits. Discharged to rehab unit on 11/01. Continue home aspirin and statin.. Patient medically ready to be discharged back to inpatient rehab unit awaiting insurance precertification 3. Erythrocytosis with concern for polycythemia vera ? Heme-onc consulted. Hemoglobin has been high in the 17-19 range since 10/30 along with elevated hematocrit. Given the events above, have concern for symptomatic polycythemia vera. Erythropoietin level pending. Patient was seen in consultation by heme-onc notes and recommendations reviewed ? 11/06/2024. Scheduled to undergo phlebectomy ? 11/07/2024;Patient had a second section of phlebotomy this a.m. Repeat H&H ordered for 1 PM this afternoon. 4. Hypertension ? Mildly hypertensive to the 130s to 140s systolic on admit. Continue home lisinopril and hydrochlorothiazide. 5. Tobacco dependence ? Has been without tobacco use since 10/30. No need for nicotine replacement therapy at this time. Discussed cessation on discharge. 6. ADHD ? Hold home Adderall as this could be contributing and contributing factor to her chest pain as well as recent CVA as above. 7. DVT prophylaxis ? Subcu Lovenox 8. Nonsustained VT ? Had runs of nonsustained VT was seen in consultation by Dr. Eduardo cardiology added beta-blockers. Time spent in the patient's overall evaluation,decision-making process, review of diagnostic data, adjustment of management, discussion with other providers, nursing nursing and ancillary staff involved in patient's care documentation, 35 Minutes Charges/Coding Visit Charges Inpatient E&M: 19617 Subs Hosp L2 Date medically ready for discharge: 11/05/24 Reason for DC delay: Precert pending from insurance 11/07/24 1013 <Electronically signed by Nehemiah Hammond MD> Cosigner Signature (if applicable): CC: ~ Signed [facility] Work Phone: 1(705) 318-326908-07-2025 Progress note [facility] Medical Records Department [address] [place] [id number] Progress Note - Hospitalist 11/07/24 1006 MR#: [id number] Acct: [id number] Name: JAYDA OSHEA Maritza Rep #:[id number] : 1985 39 From: Nehemiah Hammond MD PCP: Care Physician,No Primary Status :ADM IN Location: [place] [address] Reason for Visit Chief Complaint: Chest pain Subjective Subjective Patient had a second section of phlebotomy this a.m. Repeat H&H ordered for 1 PM this afternoon. Objective Data Objective Data Vital Signs: Vital Signs Temp Pulse Resp BP Pulse Ox O2 Del Method 97.9 F 110 H 18 150/105 H 98 Room Air 11/07/24 09:29 11/07/24 09:31 11/07/24 09:29 11/07/24 09:29 11/07/24 09:29 11/07/24 09:42 Oxygen Delivery Method Room Air Weight: 76.839 kg Body Mass Index (BMI) 29.0 Intake & Output: Intake and Output for Last 24 Hours 11/05/24 11/06/24 11/07/24 23:59 23:59 23:59 Intake Total 1100 / 1600 1950 / 1950 400 / 400 Output Total 1750 / 2375 2975 / 2975 350 / 350 Balance -650 / -775 -1025 / -1025 50 / 50 Lab / Micro Data 11/06/24 17:12 11/06/24 06:16 Labs: Laboratory Results - last 24 hr 11/06/24 17:12: Hgb 17.0 H, Hct 51.2 H Physical Exam Narrative GENERAL: cooperative HEENT: Atraumatic; normocephalic EYES; Anicteric, Normal Conjunctiva NECK; supple, normal thyroid, RESPIRATORY: Diminished to auscultation CARDIOVASCULAR: Regular S1 S2, GI: soft, normoactive bowel sounds, : No Renal angle tenderness; EXTREMITIES: No edema, no clubbing, MUSCULOSKELETAL: no muscle wasting NEURO: Awake; left-sided hemiplegia SKIN: No Rash PSYCH; Flat affect Assessment & Plan Assessment/Plan (1) Chest pain: QUALIFIERS: Chest pain type: chest pain due to myocardial ischemia Ischemic chest pain type: unstable angina pectoris Qualified Code(s): I20.0 - Unstable angina PLAN: Plan Patient is a 39-year-old lady with recent CVA with significant left-sided deficit who presented with chest pain 1. Chest pain ? EKG demonstrated inferior lateral ST wave changes patient underwent left heartcatheterization which showed normal coronaries and heart function 2.. Recent CVA with residual left-sided deficits ? PT/OT/case management following. Hospitalized from 10/30-11/01 for acute CVA with residual left-sided deficits. Discharged to rehab unit on 11/01. Continue home aspirin and statin.. Patient medically ready to be discharged back to inpatient rehab unit awaiting insurance precertification 3. Erythrocytosis with concern for polycythemia vera ? Heme-onc consulted. Hemoglobin has been high in the 17-19 range since 10/30 along with elevated hematocrit. Given the events above, have concern for symptomatic polycythemia vera. Erythropoietin level pending. Patient was seen in consultation by heme-onc notes and recommendations reviewed ? 11/06/2024. Scheduled to undergo phlebectomy ? 11/07/2024;Patient had a second section of phlebotomy this a.m. Repeat H&H ordered for 1 PM this afternoon. 4. Hypertension ? Mildly hypertensive to the 130s to 140s systolic on admit. Continue home lisinopril and hydrochlorothiazide. 5. Tobacco dependence ? Has been without tobacco use since 10/30. No need for nicotine replacement therapy at this time. Discussed cessation on discharge. 6. ADHD ? Hold home Adderall as this could be contributing and contributing factor to her chest pain as well as recent CVA as above. 7. DVT prophylaxis ? Subcu Lovenox 8. Nonsustained VT ? Had runs of nonsustained VT was seen in consultation by Dr. Eduardo cardiology added beta-blockers. Time spent in the patient's overall evaluation,decision-making process, review of diagnostic data, adjustment of management, discussion with other providers, nursing nursing and ancillary staff involved in patient's care documentation, 35 Minutes Charges/Coding Visit Charges Inpatient E&M: 84515 Subs Hosp L2 Date medically ready for discharge: 11/05/24 Reason for DC delay: Precert pending from insurance 11/07/24 1013 Cosigner Signature (if applicable): CC: ~ Signed [facility]08-06-2025 Progress note Author Nehemiah Hammond [facility] Note Date/Time November 06, 2024 8:5 9am [facility] Medical Records Department [address] [place] [address] Progress Note - Hospitalist 11/06/24 0858 MR#: [id number] Acct: [id number] Name: JAYDA OSHEA Maritza Rep #:[id number] : 1985 39 From: Nehemiah Hammond MD PCP: Care Physician,No Primary Status :ADM IN Location: [place] [address] Reason for Visit Chief Complaint: Chest pain Subjective Subjective Patient is scheduled to undergo phlebectomy. Had runs of nonsustained VT was seen in consultation by Dr. Eduardo cardiology added beta-blockers. Objective Data Objective Data Vital Signs: Vital Signs Temp Pulse Resp BP Pulse Ox O2 Del Method 98 F 98 12 166/98 H 97 Room Air 11/06/24 08:24 11/06/24 08:28 11/06/24 08:24 11/06/24 08:24 11/06/24 08:24 11/06/24 08:24 Oxygen Delivery Method Room Air Weight: 76.839 kg Body Mass Index (BMI) 29.0 Intake & Output: Intake and Output for Last 24 Hours 11/04/24 11/05/24 11/06/24 23:59 23:59 23:59 Intake Total 1100 / 1600 1000 / 1000 Output Total 1700 / 2300 1750 / 2375 1025 / 1025 Balance -1700 / -1900 -650 / -775 - Lab / Micro Data 11/06/24 06:16 11/06/24 06:16 Labs: Laboratory Results - last 24 hr 11/06/24 06:16: WBC 9.6, RBC 5.78 H, Hgb 17.4 H, Hct 52.1 H, MCV 90.1, MCH 30.1,MCHC 33.4, RDW Std Deviation 39.6, RDW Coeff of Maria Teresa 11.9, Plt Count 361, MPV 10.3, Immature Gran % (Auto) 0.400, Neut % (Auto) 58.7, Lymph % (Auto) 27.6, [place] % (Auto) 10.9 H, Eos % (Auto) 1.7, Baso % (Auto) 0.7, Absolute Neuts (auto) 5.7, Absolute Lymphs (auto) 2.66, Nucleated RBC % 0, Sodium 138, Potassium 3.9, Chloride 101, Carbon Dioxide 22.2, Anion Gap 15, BUN 17, Creatinine 0.58 L, Estim Creat Clear Calc 128.07, Est GFR (MDRD) Non-Af 117, BUN/Creatinine Ratio 29.5 H, Glucose 112 H, Calcium 9.5, Magnesium 2.3 H Radiography Diagnostic Testing: Radiology Impression Abdomen/Pelvis CT 11/05/24 14:54 IMPRESSION: Unremarkable study with no acute abdominopelvic abnormalities. Reading Location: [facility] Physical Exam Narrative GENERAL: cooperative HEENT: Atraumatic; normocephalic EYES; Anicteric, Normal Conjunctiva NECK; supple, normal thyroid, RESPIRATORY: Diminished to auscultation CARDIOVASCULAR: Regular S1 S2, GI: soft, normoactive bowel sounds, : No Renal angle tenderness; EXTREMITIES: No edema, no clubbing, MUSCULOSKELETAL: no muscle wasting NEURO: Awake; left-sided hemiplegia SKIN: No Rash PSYCH; Flat affect Assessment & Plan Assessment/Plan (1) Chest pain: QUALIFIERS: Chest pain type: chest pain due to myocardial ischemia Ischemic chest pain type: unstable angina pectoris Qualified Code(s): I20.0 - Unstable angina PLAN: Plan Patient is a 39-year-old lady with recent CVA with significant left-sided deficit who presented with chest pain 1. Chest pain ? EKG demonstrated inferior lateral ST wave changes patient underwent left heartcatheterization which showed normal coronaries and heart function 2.. Recent CVA with residual left-sided deficits ? PT/OT/case management following. Hospitalized from 10/30-11/01 for acute CVA with residual left-sided deficits. Discharged to rehab unit on 11/01. Continue home aspirin and statin.. Patient medically ready to be discharged back to inpatient rehab unit awaiting insurance precertification 3. Erythrocytosis with concern for polycythemia vera ? Heme-onc consulted. Hemoglobin has been high in the 17-19 range since 10/30 along with elevated hematocrit. Given the events above, have concern for symptomatic polycythemia vera. Erythropoietin level pending. Patient was seen in consultation by heme-onc notes and recommendations reviewed ? 11/06/2024. Scheduled to undergo phlebectomy 4. Hypertension ? Mildly hypertensive to the 130s to 140s systolic on admit. Continue home lisinopril and hydrochlorothiazide. 5. Tobacco dependence ? Has been without tobacco use since 10/30. No need for nicotine replacement therapy at this time. Discussed cessation on discharge. 6. ADHD ? Hold home Adderall as this could be contributing and contributing factor to her chest pain as well as recent CVA as above. 7. DVT prophylaxis ? Subcu Lovenox 8. Nonsustained VT ? Had runs of nonsustained VT was seen in consultation by Dr. Eduardo cardiology added beta-blockers. Time spent in the patient's overall evaluation,decision-making process, review of diagnostic data, adjustment of management, discussion with other providers, nursing nursing and ancillary staff involved in patient's care documentation, 35 Minutes Charges/Coding Visit Charges Inpatient E&M: 36461 Subs Hosp L2 Date medically ready for discharge: 11/05/24 Reason for DC delay: Precert pending from insurance 11/06/24 0859 <Electronically signed by Nehemiah Hammond MD> Cosigner Signature (if applicable): CC: ~ Signed [facility] Work Phone: 1(811) 658-723208-06-2025 Progress note Author Law Eduardo [facility] Note Date/Time November 06, 2024 7:[address] [facility] Medical Records Department [address] [place] [address] Progress Note - Cardiology 11/06/24732 MR#: [id number] Acct: [id number] Name: JAYDA OSHEA Rep #:[id number] : 1985 39 From: Law Eduardo MD PCP: Care Physician,No Primary Status :ADM IN Location: [place] [address] Subjective Subjective Patient seen and evaluated Objective Data Vital Signs: Vital Signs Temp Pulse Resp BP Pulse Ox O2 Del Method 96.6 F L 98 16 152/83 H 97 Room Air 11/05/24 23:00 11/05/24 23:00 11/05/24 23:00 11/05/24 23:00 11/05/24 23:00 11/05/24 23:00 Oxygen Delivery Method Room Air Weight: 169 lb 6.416 oz Body Mass Index (BMI) 29.0 Intake & Output: Intake and Output for Last 24 Hours 11/04/24 11/05/24 11/06/24 23:59 23:59 23:59 Intake Total 1100 / 1600 500 / 500 Output Total 1700 / 2300 1750 / 2375 625 / 625 Balance -1700 / -1900 -650 / -775 -125 / -125 Lab / Micro Data 11/06/24 06:16 11/06/24 06:16 Labs: Laboratory Results - last 24 hr 11/06/24 06:16: WBC 9.6, RBC 5.78 H, Hgb 17.4 H, Hct 52.1 H, MCV 90.1, MCH 30.1,MCHC 33.4, RDW Std Deviation 39.6, RDW Coeff of Maria Teresa 11.9, Plt Count 361, MPV 10.3, Immature Gran % (Auto) 0.400, Neut % (Auto) 58.7, Lymph % (Auto) 27.6, [place] % (Auto) 10.9 H, Eos % (Auto) 1.7, Baso % (Auto) 0.7, Absolute Neuts (auto) 5.7, Absolute Lymphs (auto) 2.66, Nucleated RBC % 0, Magnesium 2.3 H Cardiology Labs/Tests 11/06/24 06:16: WBC 9.6, RBC 5.78 H, Hgb 17.4 H, Hct 52.1 H, MCV 90.1, MCH 30.1,MCHC 33.4, Plt Count 361, MPV 10.3, Immature Gran % (Auto) 0.400, Neut % (Auto) 58.7, Lymph % (Auto) 27.6, [place] % (Auto) 10.9 H, Eos % (Auto) 1.7, Baso % (Auto)0.7, Absolute Neuts (auto) 5.7, Nucleated RBC % 0, Magnesium 2.3 H Rhythm: EKG: ECHO: Stress Test: Cardiac Cath: PCI: CT Surgery: Holter monitor: EPS: PPM: CXR: Chest CT Scan: Radiography Diagnostic Testing: Radiology Impression Abdomen Ultrasound 11/05/24 06:00 IMPRESSION: 1. Limited visualization of the left kidney but no renal mass is seen on either side. 2. No evidence of hepatomegaly or splenomegaly. No focal hepatic process is noted. Reading Location: [facility] Abdomen/Pelvis CT 11/05/24 14:54 IMPRESSION: Unremarkable study with no acute abdominopelvic abnormalities. Reading Location: [facility] Assessment & Plan Assessment/Plan (1) Chest pain: QUALIFIERS: Chest pain type: chest pain due to myocardial ischemia Ischemic chest pain type: unstable angina pectoris Qualified Code(s): I20.0 - Unstable angina PLAN: She presented with chest discomfort and underwent a cardiac catheterization which revealed normal coronary arteries. Her echocardiogram hadpreviously documented preserved ejection fraction. (2) Essential (primary) hypertension: PLAN: She does have a history of hypertension which does not appear to be very well-controlled. I had recommended an PALOMO inhibitor and a beta-vanita. (3) Ischemic cerebrovascular accident (CVA): PLAN: She does have evidence of previous cerebrovascular accident. We should attempt to keep her blood pressure 130/80. (4) V-tach: PLAN: Patient had an episode of asymptomatic nonsustained ventricular tachycardia. Was not on beta-vanita medication yet. Above started. Will check magnesium and potassium levels. 11/06/24 0737 <Electronically signed by Law Eduardo MD> Cosigner Signature (if applicable): CC: ~ Signed [facility] Work Phone: 1(368) 152-256008-06-2025 Progress note [facility] Medical Records Department [address] [place] [address] Progress Note - Hospitalist 11/06/24 0858 MR#: [id number] Acct: [id number] Name: JAYDA OSHEA Rep #:[id number] : 1985 39 From: Nehemiah Hammond MD PCP: Care Physician,No Primary Status :ADM IN Location: [place] [address] Reason for Visit Chief Complaint: Chest pain Subjective Subjective Patient is scheduled to undergo phlebectomy. Had runs of nonsustained VT was seen in consultation by Dr. Eduardo cardiology added beta-blockers. Objective Data Objective Data Vital Signs: Vital Signs Temp Pulse Resp BP Pulse Ox O2 Del Method 98 F 98 12 166/98 H 97 Room Air 11/06/24 08:24 11/06/24 08:28 11/06/24 08:24 11/06/24 08:24 11/06/24 08:24 11/06/24 08:24 Oxygen Delivery Method Room Air Weight: 76.839 kg Body Mass Index (BMI) 29.0 Intake & Output: Intake and Output for Last 24 Hours 11/04/24 11/05/24 11/06/24 23:59 23:59 23:59 Intake Total 1100 / 1600 1000 / 1000 Output Total 1700 / 2300 1750 / 2375 1025 / 1025 Balance -1700 / -1900 -650 / -775 - Lab / Micro Data 11/06/24 06:16 11/06/24 06:16 Labs: Laboratory Results - last 24 hr 11/06/24 06:16: WBC 9.6, RBC 5.78 H, Hgb 17.4 H, Hct 52.1 H, MCV 90.1, MCH 30.1,MCHC 33.4, RDW Std Deviation 39.6, RDW Coeff of Maria Teresa 11.9, Plt Count 361, MPV 10.3, Immature Gran % (Auto) 0.400, Neut %(Auto) 58.7, Lymph % (Auto) 27.6, [place] % (Auto) 10.9 H, Eos % (Auto) 1.7, Baso % (Auto) 0.7, Absolute Neuts (auto) 5.7, Absolute Lymphs (auto) 2.66, Nucleated RBC % 0, Sodium 138, Potassium 3.9, Chloride 101, Carbon Dioxide 22.2, Anion Gap 15, BUN 17, Creatinine 0.58 L, Estim Creat Clear Calc 128.07, Est GFR (MDRD) Non-Af 117, BUN/Creatinine Ratio 29.5 H, Glucose 112 H, Calcium 9.5, Magnesium 2.3H Radiography Diagnostic Testing: Radiology Impression Abdomen/Pelvis CT 11/05/24 14:54 IMPRESSION: Unremarkable study with no acute abdominopelvic abnormalities. Reading Location: [facility] Physical Exam Narrative GENERAL: cooperative HEENT: Atraumatic; normocephalic EYES; Anicteric, Normal Conjunctiva NECK; supple, normal thyroid, RESPIRATORY: Diminished to auscultation CARDIOVASCULAR: Regular S1 S2, GI: soft, normoactive bowel sounds, : No Renal angle tenderness; EXTREMITIES: No edema, no clubbing, MUSCULOSKELETAL: no muscle wasting NEURO: Awake; left-sided hemiplegia SKIN: No Rash PSYCH; Flat affect Assessment & Plan Assessment/Plan (1) Chest pain: QUALIFIERS: Chest pain type: chest pain due to myocardial ischemia Ischemic chest pain type: unstable angina pectoris Qualified Code(s): I20.0 - Unstable angina PLAN: Plan Patient is a 39-year-old lady with recent CVA with significant left-sided deficit who presented with chest pain 1. Chest pain ? EKG demonstrated inferior lateral ST wave changes patient underwent left heartcatheterization which showed normal coronaries and heart function 2.. Recent CVA with residual left-sided deficits ? PT/OT/case management following. Hospitalized from 10/30-11/01 for acute CVA with residual left-sided deficits. Discharged to rehab unit on 11/01. Continue home aspirin and statin.. Patient medically ready to be discharged back to inpatient rehab unit awaiting insurance precertification 3. Erythrocytosis with concern for polycythemia vera ? Heme-onc consulted. Hemoglobin has been high in the 17-19 range since 10/30 along with elevated hematocrit. Given the events above, have concern for symptomatic polycythemia vera. Erythropoietin level pending. Patient was seen in consultation by heme-onc notes and recommendations reviewed ? 11/06/2024. Scheduled to undergo phlebectomy 4. Hypertension ? Mildly hypertensive to the 130s to 140s systolic on admit. Continue home lisinopril and hydrochlorothiazide. 5. Tobacco dependence ? Has been without tobacco use since 10/30. No need for nicotine replacement therapy at this time. Discussed cessation on discharge. 6. ADHD ? Hold home Adderall as this could be contributing and contributing factor to her chest pain as well as recent CVA as above. 7. DVT prophylaxis ? Subcu Lovenox 8. Nonsustained VT ? Had runs of nonsustained VT was seen in consultation by Dr. Eduardo cardiology added beta-blockers. Time spent in the patient's overall evaluation,decision-making process, review of diagnostic data, adjustment of management, discussion with other providers, nursing nursing and ancillary staff involved in patient's care documentation, 35 Minutes Charges/Coding Visit Charges Inpatient E&M: 81257 Subs Hosp L2 Date medically ready for discharge: 11/05/24 Reason for DC delay: Precert pending from insurance 11/06/24 0859 Cosigner Signature (if applicable): CC: ~ Signed [facility]08-06-2025 Progress note Author Ximena Mccormick [facility] Note Date/Time November 06, 2024 6:[address] [facility] Medical Records Department [address] [place] [address] Progress Note - Hospitalist 11/06/24 0546 MR#: [id number] Acct: [id number] Name: JAYDA OSHEA Rep #:[id number] : 1985 39 From: Ximena Mccormick MD PCP: Care Physician,No Primary Status :ADM IN Location: [place] [address] Hospitalist Note Patient with significant asymptomatic bout of VT. Resolved. Cardiology made aware. Will obtain a.m. labs including magnesium. 11/06/24 0647 <Electronically signed by Ximena Mccormick MD> Cosigner Signature (if applicable): CC: ~ Signed [facility] Work Phone: 1(572) 506-371208-06-2025 Progress note [facility] Medical Records Department [address] [place] [address] Progress Note - Cardiology 11/06/24732 MR#: [id number] Acct: [id number] Name: JAYDA OSHEA Rep #:[id number] : 1985 39 From: Law Eduardo MD PCP: Care Physician,No Primary Status :ADM IN Location: [place] [address] Subjective Subjective Patient seen and evaluated Objective Data Vital Signs: Vital Signs Temp Pulse Resp BP Pulse Ox O2 Del Method 96.6 F L 98 16 152/83 H 97 Room Air 11/05/24 23:00 11/05/24 23:00 11/05/24 23:00 11/05/24 23:00 11/05/24 23:00 11/05/24 23:00 Oxygen Delivery Method Room Air Weight: 169 lb 6.416 oz Body Mass Index (BMI) 29.0 Intake & Output: Intake and Output for Last 24 Hours 11/04/24 11/05/24 11/06/24 23:59 23:59 23:59 Intake Total 1100 / 1600 500 / 500 Output Total 1700 / 2300 1750 / 2375 625 / 625 Balance -1700 / -1900 -650 / -775 -125 / -125 Lab / Micro Data 11/06/24 06:16 11/06/24 06:16 Labs: Laboratory Results - last 24 hr 11/06/24 06:16: WBC 9.6, RBC 5.78 H, Hgb 17.4 H, Hct 52.1 H, MCV 90.1, MCH 30.1,MCHC 33.4, RDW Std Deviation 39.6, RDW Coeff of Maria Teresa 11.9, Plt Count 361, MPV 10.3, Immature Gran % (Auto) 0.400, Neut %(Auto) 58.7, Lymph % (Auto) 27.6, [place] % (Auto) 10.9 H, Eos % (Auto) 1.7, Baso % (Auto) 0.7, Absolute Neuts (auto) 5.7, Absolute Lymphs (auto) 2.66, Nucleated RBC % 0, Magnesium 2.3 H Cardiology Labs/Tests 11/06/24 06:16: WBC 9.6, RBC 5.78 H, Hgb 17.4 H, Hct 52.1 H, MCV 90.1, MCH 30.1,MCHC 33.4, Plt Count 361, MPV 10.3, Immature Gran % (Auto) 0.400, Neut % (Auto) 58.7, Lymph % (Auto) 27.6, [place] % (Auto) 10.9 H, Eos % (Auto) 1.7, Baso % (Auto)0.7, Absolute Neuts (auto) 5.7, Nucleated RBC % 0, Magnesium 2.3 H Rhythm: EKG: ECHO: Stress Test: Cardiac Cath: PCI: CT Surgery: Holter monitor: EPS: PPM: CXR: Chest CT Scan: Radiography Diagnostic Testing: Radiology Impression Abdomen Ultrasound 11/05/24 06:00 IMPRESSION: 1. Limited visualization of the left kidney but no renal mass is seen on either side. 2. No evidence of hepatomegaly or splenomegaly. No focal hepatic process is noted. Reading Location: [facility] Abdomen/Pelvis CT 11/05/24 14:54 IMPRESSION: Unremarkable study with no acute abdominopelvic abnormalities. Reading Location: [id number] Assessment & Plan Assessment/Plan (1) Chest pain: QUALIFIERS: Chest pain type: chest pain due to myocardial ischemia Ischemic chest pain type: unstable angina pectoris Qualified Code(s): I20.0 - Unstable angina PLAN: She presented with chest discomfort and underwent a cardiac catheterization which revealed normal coronary arteries. Her echocardiogram hadpreviously documented preserved ejection fraction. (2) Essential (primary) hypertension: PLAN: She does have a history of hypertension which does not appear to be very well-controlled. I had recommended an PALOMO inhibitor and a beta-vanita. (3) Ischemic cerebrovascular accident (CVA): PLAN: She does have evidence of previous cerebrovascular accident. We should attempt to keep her blood pressure 130/80. (4) V-tach: PLAN: Patient had an episode of asymptomatic nonsustained ventricular tachycardia. Was not on beta-vanita medication yet. Above started. Will check magnesium and potassium levels. 11/06/24 0737 Cosigner Signature (if applicable): CC: ~ Signed [facility]08-06-20[address] Progress note [facility] Medical Records Department [address] [place] [address] Progress Note - Hospitalist 11/06/24 0546 MR#: [id number] Acct: [id number] Name: JAYDA OSHEA Rep #:[id number] : 1985 39 From: Ximena Mccormick MD PCP: Care Physician,No Primary Status :ADM IN Location: [place] [address] Hospitalist Note Patient with significant asymptomatic bout of VT. Resolved. Cardiology made aware. Will obtain a.m.labs including magnesium. 11/06/24 0647 Cosigner Signature (if applicable): CC: ~ Signed [facility]08-05-2025 Radiology Diagnostic study note [facility] Imaging Services [address] [place] [address] Abdomen/Pelvis WITH Contrast MR#: [id number] Acct: [id number] Name: JAYDA OSHEA Rep #: [id number] : 1985 F 39 From: Chaz Hugo MD PCP: Care Physician,No Primary Status: ADM IN Study:Abdomen/Pelvis WITH Contrast Date of Ex am: 11/05/24 Exam# [id number] Ordering Dr: Mya Hammond MD PROCEDURE: ABDOMEN/PELVIS WITH CONTRAST 11/05/2024 REASON FOR EXAM: POLYCYTHEMIA RULE OUT ABDOMINAL MALIGNANCY TECHNIQUE: ABDOMEN/PELVIS WITH CONTRAST Coronal and Sagittal reconstruction series were provided. CONTRAST: Isovue 370 VOLUME: 100 mL One or more dose reduction techniques were used (e.g., Automated exposure control, adjustment of the mA and/or kV according to patient size, use of iterative reconstruction technique. RADIATION DOSE SUMMARY: CTDlvol: 18.19 mGy DLP: 994.27 mGycm COMPARISON: CT abdomen and pelvis earlier today November 05, 2024. FINDINGS: Lung bases: Clear. Liver: Unremarkable Gallbladder: Unremarkable. Spleen: Unremarkable. Pancreas: Unremarkable. Adrenals: Unremarkable. Kidneys: Unremarkable. No hydronephrosis. No nephrolithiasis. Bladder: The bladder is partially distended and decompressed by Smith catheter. Reproductive Organs: Unremarkable. Bowel: No bowel wall thickening or bowel obstruction. Appendix: No evidence of acute appendicitis. Lymph nodes: No lymphadenopathy. Vasculature: No aneurysm. Peritoneum / Retroperitoneum: No free air or free fluid. Bones: No acute bony findings. CT/Abdomen/Pelvis WITH Contrast IMPRESSION: Unremarkable study with no acute abdominopelvic abnormalities. Reading Location: [facility] CC: Dr. Nehemiah Hammond MD; No Primary Care Physician ~ Pastoral Worker: Signed [facility]08-05-2025 Progress note Author Nehemiah Hammond [facility] Note Date/Time November 05, 2024 11: 20am [facility] Medical Records Department [address] [place] [address] Progress Note - Hospitalist 11/05/24 1117 MR#: [id number] Acct: [id number] Name: JAYDA OSHEA Rep #:[id number] : 1985 39 From: Nehemiah Hammond MD PCP: Care Physician,No Primary Status :ADM IN Location: [place] [address] Reason for Visit Chief Complaint: Chest pain Subjective Subjective Patient is a 39-year-old lady with recent CVA with significant left-sided deficit who presented with chest pain Objective Data Objective Data Vital Signs: Vital Signs Temp Pulse Resp BP Pulse Ox O2 Del Method 98.9 F 75 16 174/97 H 99 Room Air 11/05/24 09:00 11/05/24 09:00 11/05/24 09:00 11/05/24 09:00 11/05/24 09:00 11/05/24 09:00 Oxygen Delivery Method Room Air Weight: 76.839 kg Body Mass Index (BMI) 29.0 Intake & Output: Intake and Output for Last 24 Hours 11/03/24 11/04/24 11/05/24 23:59 23:59 23:59 Intake Total 500 / 500 Output Total 1700 / 2300 950 / 950 Balance -1700 / -1900 -450 / -450 Lab / Micro Data 11/05/24 06:05 Labs: Laboratory Results - last 24 hr 11/04/24 12:30: APTT 27.0, Troponin T Hi Sens 2 Hr 31 H, Urine Test Negative 11/04/24 22:44: Troponin T Hi Sens 4Hr 48 H 11/05/24 06:05: WBC 12.9 H, RBC 5.85 H, Hgb 17.5 H, Hct 52.8 H, MCV 90.3, MCH 29.9, MCHC 33.1, RDW Std Deviation 40.9, RDW Coeff of Maria Teresa 12.1, Plt Count 342, MPV 10.3 Radiography Diagnostic Testing: Radiology Impression Abdomen Ultrasound 11/05/24 06:00 IMPRESSION: 1. Limited visualization of the left kidney but no renal mass is seen on either side. 2. No evidence of hepatomegaly or splenomegaly. No focal hepatic process is noted. Reading Location: [place] [address] Physical Exam Narrative GENERAL: cooperative HEENT: Atraumatic; normocephalic EYES; Anicteric, Normal Conjunctiva NECK; supple, normal thyroid, RESPIRATORY: Diminished to auscultation CARDIOVASCULAR: Regular S1 S2, GI: soft, normoactive bowel sounds, : No Renal angle tenderness; EXTREMITIES: No edema, no clubbing, MUSCULOSKELETAL: no muscle wasting NEURO: Awake; left-sided hemiplegia SKIN: No Rash PSYCH; Flat affect Assessment & Plan Assessment/Plan (1) Chest pain: QUALIFIERS: Chest pain type: chest pain due to myocardial ischemia Ischemic chest pain type: unstable angina pectoris Qualified Code(s): I20.0 - Unstable angina PLAN: Plan Patient is a 39-year-old lady with recent CVA with significant left-sided deficit who presented with chest pain 1. Chest pain ? EKG demonstrated inferior lateral ST wave changes patient underwent left heartcatheterization which showed normal coronaries and heart function 2.. Recent CVA with residual left-sided deficits ? PT/OT/case management following. Hospitalized from 10/30-11/01 for acute CVA with residual left-sided deficits. Discharged to rehab unit on 11/01. Continue home aspirin and statin.. Patient medically ready to be discharged back to inpatient rehab unit awaiting insurance precertification 3. Erythrocytosis with concern for polycythemia vera ? Heme-onc consulted. Hemoglobin has been high in the 17-19 range since 10/30 along with elevated hematocrit. Given the events above, have concern for symptomatic polycythemia vera. Erythropoietin level pending. Patient was seen in consultation by heme-onc notes and recommendations reviewed 4. Hypertension ? Mildly hypertensive to the 130s to 140s systolic on admit. Continue home lisinopril and hydrochlorothiazide. 5. Tobacco dependence ? Has been without tobacco use since 10/30. No need for nicotine replacement therapy at this time. Discussed cessation on discharge. 6. ADHD ? Hold home Adderall as this could be contributing and contributing factor to her chest pain as well as recent CVA as above. 7. DVT prophylaxis ? Subcu Lovenox Time spent in the patient's overall evaluation,decision-making process, review of diagnostic data, adjustment of management, discussion with other providers, nursing nursing and ancillary staff involved in patient's care documentation, 36 Minutes Charges/Coding Visit Charges Inpatient E&M: 14964 Subs Hosp L2 Date medically ready for discharge: 11/05/24 Reason for DC delay: Precert pending from insurance 11/05/24 1120 <Electronically signed by Nehemiah Hammond MD> Cosigner Signature (if applicable): CC: ~ Signed [facility] Work Phone: 1(680) 701-787008-05-2025 Progress note [facility] Medical Records Department [address] [place] [address] Progress Note - Hospitalist 11/05/24 1117 MR#: [id number] Acct: [id number] Name: JAYDA OSHEA Rep #:[id number] : 1985 39 From: Nehemiah Hammond MD PCP: Care Physician,No Primary Status :ADM IN Location: [facility]U [id number] Reason for Visit Chief Complaint: Chest pain Subjective Subjective Patient is a 39-year-old lady with recent CVA with significant left-sided deficit who presented with chest pain Objective Data Objective Data Vital Signs: Vital Signs Temp Pulse Resp BP Pulse Ox O2 Del Method 98.9 F 75 16 174/97 H 99 Room Air 11/05/24 09:00 11/05/24 09:00 11/05/24 09:00 11/05/24 09:00 11/05/24 09:00 11/05/24 09:00 Oxygen Delivery Method Room Air Weight: 76.839 kg Body Mass Index (BMI) 29.0 Intake & Output: Intake and Output for Last 24 Hours 11/03/24 11/04/24 11/05/24 23:59 23:59 23:59 Intake Total 500 / 500 Output Total 1700 / 2300 950 / 950 Balance -1700 / -1900 -450 / -450 Lab / Micro Data 11/05/24 06:05 Labs: Laboratory Results - last 24 hr 11/04/24 12:30: APTT 27.0, Troponin T Hi Sens 2 Hr 31 H, Urine Test Negative 11/04/24 22:44: Troponin T Hi Sens 4Hr 48 H 11/05/24 06:05: WBC 12.9 H, RBC 5.85 H, Hgb 17.5 H, Hct 52.8 H, MCV 90.3, MCH 29.9, MCHC 33.1, RDW Std Deviation 40.9, RDW Coeff of Maria Teresa 12.1, Plt Count 342, MPV 10.3 Radiography Diagnostic Testing: Radiology Impression Abdomen Ultrasound 11/05/24 06:00 IMPRESSION: 1. Limited visualization of the left kidney but no renal mass is seen on either side. 2. No evidence of hepatomegaly or splenomegaly. No focal hepatic process is noted. Reading Location: [place] [address] Physical Exam Narrative GENERAL: cooperative HEENT: Atraumatic; normocephalic EYES; Anicteric, Normal Conjunctiva NECK; supple, normal thyroid, RESPIRATORY: Diminished to auscultation CARDIOVASCULAR: Regular S1 S2, GI: soft, normoactive bowel sounds, : No Renal angle tenderness; EXTREMITIES: No edema, no clubbing, MUSCULOSKELETAL: no muscle wasting NEURO: Awake; left-sided hemiplegia SKIN: No Rash PSYCH; Flat affect Assessment & Plan Assessment/Plan (1) Chest pain: QUALIFIERS: Chest pain type: chest pain due to myocardial ischemia Ischemic chest pain type: unstable angina pectoris Qualified Code(s): I20.0 - Unstable angina PLAN: Plan Patient is a 39-year-old lady with recent CVA with significant left-sided deficit who presented with chest pain 1. Chest pain ? EKG demonstrated inferior lateral ST wave changes patient underwent left heartcatheterization which showed normal coronaries and heart function 2.. Recent CVA with residual left-sided deficits ? PT/OT/case management following. Hospitalized from 10/30-11/01 for acute CVA with residual left-sided deficits. Discharged to rehab unit on 11/01. Continue home aspirin and statin.. Patient medically ready to be discharged back to inpatient rehab unit awaiting insurance precertification 3. Erythrocytosis with concern for polycythemia vera ? Heme-onc consulted. Hemoglobin has been high in the 17-19 range since 10/30 along with elevated hematocrit. Given the events above, have concern for symptomatic polycythemia vera. Erythropoietin level pending. Patient was seen in consultation by heme-onc notes and recommendations reviewed 4. Hypertension ? Mildly hypertensive to the 130s to 140s systolic on admit. Continue home lisinopril and hydrochlorothiazide. 5. Tobacco dependence ? Has been without tobacco use since 10/30. No need for nicotine replacement therapy at this time. Discussed cessation on discharge. 6. ADHD ? Hold home Adderall as this could be contributing and contributing factor to her chest pain as well as recent CVA as above. 7. DVT prophylaxis ? Subcu Lovenox Time spent in the patient's overall evaluation,decision-making process, review of diagnostic data, adjustment of management, discussion with other providers, nursing nursing and ancillary staff involved in patient's care documentation, 36 Minutes Charges/Coding Visit Charges Inpatient E&M: 63868 Subs Hosp L2 Date medically ready for discharge: 11/05/24 Reason for DC delay: Precert pending from insurance 11/05/24 1120 Cosigner Signature (if applicable): CC: ~ Signed [facility]08-05-2025 Radiology Diagnostic study note [facility] Imaging Services [address] [place] [address] Abdomen Complete MR#: [id number] Acct: [id number] Name: JAYDA OSHEA Rep #: [id number] : 1985 F 39 From: Demetrius Zarate MD PCP: Care Physician,No Primary Status: ADM IN Study:Abdomen Complete Date of Exam: 08/25 Exam# [id number] Ordering Dr: Kaleb Vick DO PROCEDURE: ABDOMEN COMPLETE 11/05/2024 REASON FOR EXAM: PV EVAL FOR HEPATOSPLENOMEGALY AND RENAL TUMOR TECHNIQUE: ABDOMEN COMPLETE COMPARISON: None. FINDINGS: The examination is somewhat limited due to patient's difficulty in positioning. Liver: The liver is not enlarged, measured at 14.1 cm in length. Normal hepaticechogenicity is seen. No evidence of intrahepatic biliary ductal dilation. The main portal vein demonstrates hepatopetal flow. Gallbladder: No stones, sludge, wall thickening or tenderness. Common bile duct: Normal measuring 5.8 mm diameter. Pancreas: Normal Kidneys: Limited visualization of the left kidney is seen due to the presence of overlying bowel. No renal mass is seen in visualized areas, bilaterally. The right kidney measures 10.6 x 4.6 x 5.3 cm. The right renal cortex is measured at 12 mm, the left also at 12 mm in thickness. The left kidney measures 11.7 x 3.9 x 4.8 cm. Renal parenchymal thicknesses and echotextures are preserved. No hydronephrosis. Spleen: Normal in size and echotexture measuring 10.5 x 3.2 x 2.3 cm. Aorta: Visualized abdominal aorta is of normal size. IVC: Visualized inferior vena cava is unremarkable. Peritoneal Findings: No ascites identified. US/Abdomen Complete IMPRESSION: 1. Limited visualization of the left kidney but no renal mass is seen on either side. 2. No evidence of hepatomegaly or splenomegaly. No focal hepatic process is noted. Reading Location: [place] [address] CC: Dr. Kaleb Horta DO; No Primary Care Physician ~ Pastoral Worker: Signed [facility]08-04-2025 Consult note Author Shaun [facility] Note Date/Time November 04, 2024 6:[address] [facility] Cancer Care [address] [place] [address] Consultation - Oncology IP 11/04/24 1746 MR#: [id number] Acct: [id number] Name: JAYDA OSHEA Rep #:[id number] : 1985 39 From: Shaun Del Angel MD PCP: Care Physician,No Primary Status :ADM IN Location: [place] [address] Assessment & Plan Assessment/Plan (1) Polycythemia: Status: Acute Code(s): D75.1 - Secondary polycythemia Plan: JAK2 V617F is negative, erythropoietin level is pending. Chest x-ray is negative. Since patient has a CVA, will suggest phlebotomy to keep hematocrit around 45. Will also suggest obtaining ultrasound of the abdomen to rule out renal and hepatic tumors. Will follow-up with further suggestion when reports of testing become available. (2) Ischemic cerebrovascular accident (CVA): Status: Acute Code(s): I63.9 - Cerebral infarction, unspecified Plan: To continue supportive care. HPI Consult Data Date of Service:: 11/04/24 PCP / Referring Provider: No Primary Care Phys Attending: Dr. Kaleb Horta DO Chief Complaint Chief Complaint: Asked to see patient with polycythemia and CVA. History of Present Illness History of Present Illness: 39-year-old woman presented to the hospital with left-sided weakness and acute ischemic CVA of the right brain.. MRI of the brain on 10/31/2024 showed large infarct in the right frontal and superior parietal areas of the brain. She was found to have polycythemia. Advanced Directives Do you have a Healthcare Power of Paper Sorter And Counter?: No [facility] Medical History HTN (hypertension) ADHD Migraine Strain of great toe, right Contusion of right great toe without damage to nail Home Medications ?Medication ?Instructions ?Recorded ?Last Taken ?Type loratadine 10 mg tablet (Claritin) 10 mg PO DAILY PRN PRN Allergies 01/25/18 Unknown History dexamethasone sodium phosphate 0.1 1 drp ophthalmic (e ye) 4X/DAY eye 10/30/24 Unknown History % eye drops inflamattion dextroamphetamine-amphetamine 30 1 tab PO BID inflamma tion 10/30/24 Unknown History mg tablet erythromycin 5 mg/gram (0.5 %) eye 1 applic ophthalmic (eye) QHS eye 10/30/24 10/31/24 History ointment aspirin 81 mg chewable tablet 81 mg PO DAILYCM heart h ealth #0 11/01/24 11/01/24 Rx tabs atorvastatin 80 mg tablet 80 mg PO QHS cholesterol #0 tabs 11/01/24 10/31/24 Rx cyclobenzaprine 10 mg tablet 10 mg PO TID PRN PRN Musc le Spasm 11/01/24 11/01/24 13:15 Rx #0 tabs hydrochlorothiazide 12.5 mg capsule 12.5 mg PO DAILY b lood pressure #0 11/01/24 Unknown Rx caps lisinopril 10 mg tablet 10 mg PO DAILY blood pressur e #0 11/01/24 11/01/24 Rx tabs Allergy/AdvReac Type Severity Reaction Status Date / Time naproxen Allergy Hives Verified 10/30/24 21:22 Family History Mother Hypertension Depression Anxiety PTSD (post-traumatic stress disorder) Surgical History History of section Social History household members: children and other details: Lives with son. Smoking Status: Current every day smoker tobacco type: e-cigarettes alcohol intake: current alcohol intake frequency: 0-2 drinks per day Alcohol type: wine substance use type: does not use Physical Exam Const alert, oriented x3 and no apparent distress HEENT normocephalic Eyes EOMs intact bilaterally, conjunctivae normal and no scleral icterus Neck supple Lymph Lymphatic: no lymphadenopathy noted Resp normal respiratory effort, no use of accessory muscles and clear to auscultationbilaterally Cardio regular rate, regular rhythm, S1 normal heart sound, S2 normal heart sound and no murmurs GI normal to inspection, nondistended, normoactive bowel sounds Extremity no clubbing, cyanosis or edema Skin no rashes or lesions noted Neuro Neuro Narrative: +Hemiplegia L upper and Lower extremities. Psych mental status grossly normal and cooperative Vital Signs Temperature 97.7 F L 11/04/24 15:30 Temperature Source Temporal 11/04/24 15:30 Pulse Rate 99 11/04/24 17:00 Respiratory Rate 14 11/04/24 16:30 Respiratory Effort Normal, Non-Labored 11/04/24 14:00 Respiratory Depth Normal 11/04/24 14:00 Respiratory Pattern Normal 11/04/24 14:00 Blood Pressure 155/91 H 11/04/24 17:00 Blood Pressure Mean 112 11/04/24 17:00 Pulse Ox 97 11/04/24 17:00 Oxygen Delivery Method Room Air 11/04/24 17:00 Laboratory Results - last 24 hr 11/04/24 12:30: APTT 27.0, Troponin T Hi Sens 2 Hr 31 H, Urine Test Negative 11/04/24 1816 <Electronically signed by Shaun Del Angel MD> CC: Dr. Kaleb Horta DO; No Primary Care Physician ~ Signed [facility] Work Phone: 1(759) 914-973408-04-2025 History and physical note Author Kaleb Horta [facility] Note Date/Time November 04, 2024 4:[address] [facility] Medical Records Department [address] [place] [address] H&P Exam - Hospitalist 11/04/24 1309 MR#: [id number] Acct: [id number] Name: JAYDA OSHEA Rep #:[id number] : 1985 39 From: Kaleb bridges DO PCP: Care Physician,No Primary Status :ADM IN Location: [place] [address] HPI - General General Date of Admission: 11/04/24 Date of Service: 11/04/24 Chief Complaint: Chest pain HPI Narrative JAYDA OSHEA, is a 39 F who presented from [facility] rehab unit for chest pain. Patient was hospitalized here from 10/30-11/01 for acute ischemic CVA with left-sided deficits. MRI brain showed a large area of infarcted territory in the right frontal and superior parietal areas. Primary risk factors were uncontrolled hypertension and smoking. Both TTE and SUNDAY were unremarkable. She was stable for discharge to acute rehab on 11/01. This morningpatient was working with physical therapy and developed chest tightness with associated shortness of breath. EKG was obtained and showed inferolateral ST and T wave changes that were new compared to prior EKG. She was given a dose ofsubmental nitro and the pain resolved, but repeat EKG continued to show ST and Twave changes. Case was discussed with cardiology who recommended admission to PCU for further evaluation. Hospitalist was then contacted for admission. I saw the patient at bedside in the rehab unit. She was fatigued appearing but otherwise sitting back comfortably in bed and in no acute distress. She denied any chest pain currently. Denies any other acute concerns at this time. Will be admitted to the PCU for further management. [facility] Medical History HTN (hypertension) ADHD Migraine Strain of great toe, right Contusion of right great toe without damage to nail Home Medications ?Medication ?Instructions ?Recorded ?Last Taken ?Type loratadine 10 mg tablet (Claritin) 10 mg PO DAILY PRN PRN Allergies 01/25/18 Unknown History dexamethasone sodium phosphate 0.1 1 drp ophthalmic (e ye) 4X/DAY eye 10/30/24 Unknown History % eye drops inflamattion dextroamphetamine-amphetamine 30 1 tab PO BID inflamma tion 10/30/24 Unknown History mg tablet erythromycin 5 mg/gram (0.5 %) eye 1 applic ophthalmic (eye) QHS eye 10/30/24 10/31/24 History ointment aspirin 81 mg chewable tablet 81 mg PO DAILYCM heart h ealth #0 11/01/24 11/01/24 Rx tabs atorvastatin 80 mg tablet 80 mg PO QHS cholesterol #0 tabs 11/01/24 10/31/24 Rx cyclobenzaprine 10 mg tablet 10 mg PO TID PRN PRN Musc le Spasm 11/01/24 11/01/24 13:15 Rx #0 tabs hydrochlorothiazide 12.5 mg capsule 12.5 mg PO DAILY b lood pressure #0 11/01/24 Unknown Rx caps lisinopril 10 mg tablet 10 mg PO DAILY blood pressur e #0 11/01/24 11/01/24 Rx tabs Allergy/AdvReac Type Severity Reaction Status Date / Time naproxen Allergy Hives Verified 10/30/24 21:22 Family History Mother Hypertension Depression Anxiety PTSD (post-traumatic stress disorder) Surgical History History of section Social History household members: children and other details: Lives with son. Smoking Status: Current every day smoker tobacco type: e-cigarettes alcohol intake: current alcohol intake frequency: 0-2 drinks per day Alcohol type: wine substance use type: does not use ROS Constitutional Constitutional: Reports fatigue and weakness; Denies chills or fever(s) Eyes Eyes: Denies change in vision Cardiovascular Cardiovascular: Denies chest pain Respiratory/Chest Respiratory/Chest: Denies shortness of breath at rest Gastrointestinal Gastrointestinal: Denies abdominal pain Vital Signs Vital Signs Vital Signs: Weight Weight: 76.839 kg Body Mass Index (BMI) 29.0 Physical Exam Const alert, oriented x3, no apparent distress and average body habitus Constitutional Narrative: Young middle-aged female, fatigued appearing, neurologic deficits as below, otherwise sitting back comfortably in bed, answering questions with short appropriate responses, in no acute distress. General Appearance: cooperative and comfortable HEENT normocephalic, head/scalp atraumatic, hearing grossly normal bilaterally, nasal mucous membranes and turbinates normal and moist oral mucous membranes Eyes PERRL, EOMs intact bilaterally and conjunctivae normal Neck full ROM Chest inspection of chest normal Resp normal respiratory effort, normal air movement, no use of accessory muscles and clear to auscultation bilaterally Cardio regular rate, regular rhythm, no murmurs and peripheral pulses 2+ throughout GI normal to inspection, nondistended, normoactive bowel sounds, soft to palpation,non-tender and non-distended Extremity normal to inspection and no pedal edema Skin no rashes or lesions noted Neuro Neuro Narrative: Weakness of entire left face. Positive left facial droop. Weakness of periorbital muscles on left and inability to furrow her brow. Shoulder shrug onleft is very weak. Mild dysarthria noted. No movement in left upper or left lower extremities. Psych mental status grossly normal Results Lab / Micro Data Labs: Laboratory Results - last 24 hr 11/04/24 12:30: APTT 27.0, Urine Test Negative Assessment & Plan Assessment/Plan (1) Chest pain: QUALIFIERS: Chest pain type: chest pain due to myocardial ischemia Ischemic chest pain type: unstable angina pectoris Qualified Code(s): I20.0 - Unstable angina PLAN: Plan Patient is a 39-year-old female who presented from the [facility] rehab unit for chest pain. 1. Chest pain, ACS ruled out ? Admit under inpatient status to PCU. Cardiology following. Had chest pain with exertion in rehab unit on 11/04. EKG showed inferolateral ST and T wave changes. Pain improved with 1 dose of nitro. Troponin trend 26 > 31. Left heart cath with cardiology on 11/04 with normal coronary arteries and normal heartfunction. Unclear etiology for the symptoms; suspected they may be secondary toerythrocytosis as noted below. No further cardiac workup needed at this time. 2. Recent CVA with residual left-sided deficits ? PT/OT/case management following. Hospitalized from 10/30-11/01 for acute CVA with residual left-sided deficits. Discharged to rehab unit on 11/01. Suspect patient will be okay to return to rehab unit on this discharge as well. Continue home aspirin and statin. 3. Erythrocytosis with concern for polycythemia vera ? Heme-onc consulted. Hemoglobin has been high in the 17-19 range since 10/30 along with elevated hematocrit. Given the events above, have concern for symptomatic polycythemia vera. Erythropoietin level pending. Appreciate further heme-onc recommendations. 4. Hypertension ? Mildly hypertensive to the 130s to 140s systolic on admit. Continue home lisinopril and hydrochlorothiazide. 5. Tobacco dependence ? Has been without tobacco use since 10/30. No need for nicotine replacement therapy at this time. Discussed cessation on discharge. 6. ADHD ? Hold home Adderall as this could be contributing and contributing factor to her chest pain as well as recent CVA as above. DVT prophylaxis: Lovenox CODE STATUS: Full code, verified Expected disposition: TBD Total clinical time spent by myself addressing the patient's medical issues, reviewing all the data, and collaborating with patient's care team: 75 minutes. Charges/Coding Visit Charges Inpatient E&M: 62776 Init Hosp L3 11/04/24 2843 <Electronically signed by Kaleb Horta DO> Cosigner Signature (if applicable): CC: Dr. Kaleb Horta DO; No Primary Care Physician~ Signed [facility] Work Phone: [phone]) 712-674708-04-2025 Consult [address] [facility] [address] [place] [address] Consultation - Oncology IP 11/04/24 1746 MR#: [id number] Acct: [id number] Name: JAYDA OSHEA Rep #:[id number] : 1985 39 From: Shaun Del Angel MD PCP: Care Physician,No Primary Status :ADM IN Location: [place] [id number] Assessment & Plan Assessment/Plan (1) Polycythemia: Status: Acute Code(s): D75.1 - Secondary polycythemia Plan: JAK2 V617F is negative, erythropoietin level is pending. Chest x-ray is negative. Since patient has a CVA, will suggest phlebotomy to keep hematocrit around 45. Will also suggest obtaining ultrasound of the abdomen to rule out renal and hepatic tumors. Will follow-up with further suggestion when reports of testing become available. (2) Ischemic cerebrovascular accident (CVA): Status: Acute Code(s): I63.9 - Cerebral infarction, unspecified Plan: To continue supportive care. HPI Consult Data Date of Service:: 11/04/24 PCP / Referring Provider: No Primary Care Phys Attending: Dr. Kaleb Horta DO Chief Complaint Chief Complaint: Asked to see patient with polycythemia and CVA. History of Present Illness History of Present Illness: 39-year-old woman presented to the hospital with left-sided weakness and acute ischemic CVA of the right brain.. MRI of the brain on 10/31/2024 showed large infarct in the right frontal and superior parietal areas of the brain. She was found to have polycythemia. Advanced Directives Do you have a Healthcare Power of Paper Sorter And Counter?: No [facility] Medical History HTN (hypertension) ADHD Migraine Strain of great toe, right Contusion of right great toe without damage to nail Home Medications ?Medication ?Instructions ?Recorded ?Last Taken ?Type loratadine 10 mg tablet (Claritin) 10 mg PO DAILY PRN PRN Allergies 01/25/18 Unknown History dexamethasone sodium phosphate 0.1 1 drp ophthalmic (e ye) 4X/DAY eye 10/30/24 Unknown History % eye drops inflamattion dextroamphetamine-amphetamine 30 1 tab PO BID inflamma tion 10/30/24 Unknown History mg tablet erythromycin 5 mg/gram (0.5 %) eye 1 applic ophthalmic (eye) QHS eye 10/30/24 10/31/24 History ointment aspirin 81 mg chewable tablet 81 mg PO DAILYCM heart h ealth #0 11/01/24 11/01/24 Rx tabs atorvastatin 80 mg tablet 80 mg PO QHS cholesterol #0 tabs 11/01/24 10/31/24 Rx cyclobenzaprine 10 mg tablet 10 mg PO TID PRN PRN Musc le Spasm 11/01/24 11/01/24 13:15 Rx #0 tabs hydrochlorothiazide 12.5 mg capsule 12.5 mg PO DAILY b lood pressure #0 11/01/24 Unknown Rx caps lisinopril 10 mg tablet 10 mg PO DAILY blood pressur e #0 11/01/24 11/01/24 Rx tabs Allergy/AdvReac Type Severity Reaction Status Date / Time naproxen Allergy Hives Verified 10/30/24 21:22 Family History Mother Hypertension Depression Anxiety PTSD (post-traumatic stress disorder) Surgical History History of section Social History household members: children and other details: Lives with son. Smoking Status: Current every day smoker tobacco type: e-cigarettes alcohol intake: current alcohol intake frequency: 0-2 drinks per day Alcohol type: wine substance use type: does not use Physical Exam Const alert, oriented x3 and no apparent distress HEENT normocephalic Eyes EOMs intact bilaterally, conjunctivae normal and no scleral icterus Neck supple Lymph Lymphatic: no lymphadenopathy noted Resp normal respiratory effort, no use of accessory muscles and clear to auscultationbilaterally Cardio regular rate, regular rhythm, S1 normal heart sound, S2 normal heart sound and no murmurs GI normal to inspection, nondistended, normoactive bowel sounds Extremity no clubbing, cyanosis or edema Skin no rashes or lesions noted Neuro Neuro Narrative: +Hemiplegia L upper and Lower extremities. Psych mental status grossly normal and cooperative Vital Signs Temperature 97.7 F L 11/04/24 15:30 Temperature Source Temporal 11/04/24 15:30 Pulse Rate 99 11/04/24 17:00 Respiratory Rate 14 11/04/24 16:30 Respiratory Effort Normal, Non-Labored 11/04/24 14:00 Respiratory Depth Normal 11/04/24 14:00 Respiratory Pattern Normal 11/04/24 14:00 Blood Pressure 155/91 H 11/04/24 17:00 Blood Pressure Mean 112 11/04/24 17:00 Pulse Ox 97 11/04/24 17:00 Oxygen Delivery Method Room Air 11/04/24 17:00 Laboratory Results - last 24 hr 11/04/24 12:30: APTT 27.0, Troponin T Hi Sens 2 Hr 31 H, Urine Test Negative 11/04/24 1816 CC: Dr. Kaleb oHrta DO; No Primary Care Physician ~ Signed [facility]08-04-2025 History and physical note [facility] Medical Records Department [address] [place] [id number] H&P Exam - Hospitalist 11/04/24 1309 MR#: [id number] Acct: [id number] Name: JAYDA OSHEA Rep #:[id number] : 1985 39 From: Kaleb bridges DO PCP: Care Physician,No Primary Status :ADM IN Location: [place] [address] HPI - General General Date of Admission: 11/04/24 Date of Service: 11/04/24 Chief Complaint: Chest pain HPI Narrative JAYDA OSHEA, is a 39 F who presented from [facility] rehab unit for chest pain. Patient was hospitalized here from 10/30-11/01 for acute ischemic CVA with left-sided deficits. MRI brain showed a large area of infarcted territory in the right frontal and superior parietal areas. Primaryrisk factors were uncontrolled hypertension and smoking. Both TTE and SUNDAY were unremarkable. She was stable for discharge to acute rehab on 11/01. This morningpatient was working with physical therapy and developed chest tightness with associated shortness of breath. EKG was obtained and showed inferolateral ST and T wave changes that were new compared to prior EKG. She was given a dose ofsubmental nitro and the pain resolved, but repeat EKG continued to show ST and Twave changes. Case was discussed with cardiology who recommended admission to PCU for further evaluation. Hospitalist was then contacted for admission. I saw the patient at bedside in the rehab unit. She was fatigued appearing but otherwise sitting back comfortably in bed and in no acute distress. She denied any chest pain currently. Denies any other acute concerns at this time. Will be admitted to the PCU for further management. [facility] Medical History HTN (hypertension) ADHD Migraine Strain of great toe, right Contusion of right great toe without damage to nail Home Medications ?Medication ?Instructions ?Recorded ?Last Taken ?Type loratadine 10 mg tablet (Claritin) 10 mg PO DAILY PRN PRN Allergies 01/25/18 Unknown History dexamethasone sodium phosphate 0.1 1 drp ophthalmic (e ye) 4X/DAY eye 10/30/24 Unknown History % eye drops inflamattion dextroamphetamine-amphetamine 30 1 tab PO BID inflamma tion 10/30/24 Unknown History mg tablet erythromycin 5 mg/gram (0.5 %) eye 1 applic ophthalmic (eye) QHS eye 10/30/24 10/31/24 History ointment aspirin 81 mg chewable tablet 81 mg PO DAILYCM heart h ealth #0 11/01/24 11/01/24 Rx tabs atorvastatin 80 mg tablet 80 mg PO QHS cholesterol #0 tabs 11/01/24 10/31/24 Rx cyclobenzaprine 10 mg tablet 10 mg PO TID PRN PRN Musc le Spasm 11/01/24 11/01/24 13:15 Rx #0 tabs hydrochlorothiazide 12.5 mg capsule 12.5 mg PO DAILY b lood pressure #0 11/01/24 Unknown Rx caps lisinopril 10 mg tablet 10 mg PO DAILY blood pressur e #0 11/01/24 11/01/24 Rx tabs Allergy/AdvReac Type Severity Reaction Status Date / Time naproxen Allergy Hives Verified 10/30/24 21:22 Family History Mother Hypertension Depression Anxiety PTSD (post-traumatic stress disorder) Surgical History History of section Social History household members: children and other details: Lives with son. Smoking Status: Current every day smoker tobacco type: e-cigarettes alcohol intake: current alcohol intake frequency: 0-2 drinks per day Alcohol type: wine substance use type: does not use ROS Constitutional Constitutional: Reports fatigue and weakness; Denies chills or fever(s) Eyes Eyes: Denies change in vision Cardiovascular Cardiovascular: Denies chest pain Respiratory/Chest Respiratory/Chest: Denies shortness of breath at rest Gastrointestinal Gastrointestinal: Denies abdominal pain Vital Signs Vital Signs Vital Signs: Weight Weight: 76.839 kg Body Mass Index (BMI) 29.0 Physical Exam Const alert, oriented x3, no apparent distress and average body habitus Constitutional Narrative: Young middle-aged female, fatigued appearing, neurologic deficits as below, otherwise sitting back comfortably in bed, answering questions with short appropriate responses, in no acute distress. General Appearance: cooperative and comfortable HEENT normocephalic, head/scalp atraumatic, hearing grossly normal bilaterally, nasal mucous membranes and turbinates normal and moist oral mucous membranes Eyes PERRL, EOMs intact bilaterally and conjunctivae normal Neck full ROM Chest inspection of chest normal Resp normal respiratory effort, normal air movement, no use of accessory muscles and clear to auscultation bilaterally Cardio regular rate, regular rhythm, no murmurs and peripheral pulses 2+ throughout GI normal to inspection, nondistended, normoactive bowel sounds, soft to palpation,non-tender and non-distended Extremity normal to inspection and no pedal edema Skin no rashes or lesions noted Neuro Neuro Narrative: Weakness of entire left face. Positive left facial droop. Weakness of periorbital muscles on left and inability to furrow her brow. Shoulder shrug onleft is very weak. Mild dysarthria noted. No movement in left upper or left lower extremities. Psych mental status grossly normal Results Lab / Micro Data Labs: Laboratory Results - last 24 hr 11/04/24 12:30: APTT 27.0, Urine Test Negative Assessment & Plan Assessment/Plan (1) Chest pain: QUALIFIERS: Chest pain type: chest pain due to myocardial ischemia Ischemic chest pain type: unstable angina pectoris Qualified Code(s): I20.0 - Unstable angina PLAN: Plan Patient is a 39-year-old female who presented from the [facility] rehab unit for chest pain. 1. Chest pain, ACS ruled out ? Admit under inpatient status to PCU. Cardiology following. Had chest pain with exertion in rehab unit on 11/04. EKG showed inferolateral ST and T wave changes. Pain improved with 1 dose of nitro. Troponin trend 26 > 31. Left heart cath with cardiology on 11/04 with normal coronary arteries and normal heartfunction. Unclear etiology for the symptoms; suspected they may be secondary toerythrocytosis as noted below. No further cardiac workup needed at this time. 2. Recent CVA with residual left-sided deficits ? PT/OT/case management following. Hospitalized from 10/30-11/01 for acute CVA with residual left-sided deficits. Discharged to rehab unit on 11/01. Suspect patient will be okay to return to rehab unit onthis discharge as well. Continue home aspirin and statin. 3. Erythrocytosis with concern for polycythemia vera ? Heme-onc consulted. Hemoglobin has been high in the 17-19 range since 10/30 along with elevated hematocrit. Given the events above, have concern for symptomatic polycythemia vera. Erythropoietin level pending. Appreciate further heme-onc recommendations. 4. Hypertension ? Mildly hypertensive to the 130s to 140s systolic on admit. Continue home lisinopril and hydrochlorothiazide. 5. Tobacco dependence ? Has been without tobacco use since 10/30. No need for nicotine replacement therapy at this time. Discussed cessation on discharge. 6. ADHD ? Hold home Adderall as this could be contributing and contributing factor to her chest pain as well as recent CVA as above. DVT prophylaxis: Lovenox CODE STATUS: Full code, verified Expected disposition: TBD Total clinical time spent by myself addressing the patient's medical issues, reviewing all the data, and collaborating with patient's care team: 75 minutes. Charges/Coding Visit Charges Inpatient E&M: 52557 Init Hosp L3 11/04/24 0614 Cosigner Signature (if applicable): CC: Dr. Kaleb Horta, DO; No Primary Care Physician~ Signed [facility]08-04-2025 Discharge summary [facility] Medical Records Department [address] [place] [address] Discharge Summary 11/04/24 1032 MR#: [id number] Acct: [id number] Name: JAYDA OSHEA Rep #:[id number] : 1985 39 From: Lois Jennifer Domingo DO PCP: Care Physician,No Primary Status :ADM IN Location: [place] [address] Providers Date of Admission: 11/01/24 Date of Discharge: 11/04/24 Primary Care Physician: No Primary Care Phys Consultations 11/04/24 10:09 Consult: Cardiology Routine Consulting Provider: [facility] Reason for Consult: chest pain with abnormal EKG EMERGENT Consult: Yes MD Notified: Yes Date Notified: 11/04/24 Time Notified: 10:09 Method of Notification: Text 11/04/24 10:12 Consult: Oncology/Hematology Routine Consulting Provider: Shaun Del Angel Reason for Consult: polycythemia with CVA EMERGENT Consult: Yes MD Notified: Yes Date Notified: 11/04/24 Time Notified: 10:12 Method of Notification: Text Reason For Visit: STROKE Diagnosis Discharge Diagnosis (1) Chest pain: Status: Acute Code(s): R07.9 - Chest pain, unspecified Qualifiers: Chest pain type: chest pain due to myocardial ischemia Ischemic chest pain type: unstable angina pectoris Qualified Code(s): I20.0 - Unstable angina (2) Debility: Status: Acute Code(s): R53.81 - Other malaise (3) Stroke: Status: Acute Code(s): I63.9 - Cerebral infarction, unspecified Qualifiers: CVA mechanism: unspecified Qualified Code(s): I63.9 - Cerebral infarction, unspecified (4) Left hemiplegia: Status: Acute Code(s): G81.94 - Hemiplegia, unspecified affecting left nondominant side (5) Polycythemia: Status: Acute Code(s): D75.1 - Secondary polycythemia (6) Essential (primary) hypertension: Status: Chronic Code(s): I10 - Essential (primary) hypertension (7) Tobacco abuse: Status: Chronic Code(s): Z72.0 - Tobacco use Plan: Vaping every day (8) ADHD: Status: Chronic Code(s): F90.9 - Attention-deficit hyperactivity disorder, unspecified type Qualifiers: Attention deficit-hyperactivity disorder type: unspecified Qualified Code(s): F90.9 - Attention-deficit hyperactivity disorder, unspecified type Plan: Taking dextroamphetamine/amphetamine 30 mg twice daily chronically. (9) Allergic rhinitis: Status: Acute Code(s): J30.9 - Allergic rhinitis, unspecified Qualifiers: Allergic rhinitis seasonality: unspecified Allergic rhinitis trigger: unspecified Qualified Code(s): J30.9 - Allergic rhinitis, unspecified (10) Migraine headache: Status: Chronic Code(s): G43.909 - Migraine, unspecified, not intractable, without status migrainosus Qualifiers: Intractability: not intractable Migraine type: unspecified Status migrainosus presence: without status migrainosus Qualified Code(s): G43.909 - Migraine, unspecified, not intractable, without status migrainosus Medications at Discharge Home Medications loratadine 10 mg tablet (Claritin) 10 mg PO DAILY PRN PRN Allergies 01/25/18 dexamethasone sodium phosphate 0.1 % eye drops 1 drp ophthalmic (eye) 4X/DAY eyeinflamattion 10/30/24 dextroamphetamine-amphetamine 30 mg tablet 1 tab [...] PO DAILY blood pressure #0 tabs 11/01/24 Physical Exam Const Constitutional Narrative: She is drowsy and c/o feeling very tired. She arouses easily and is able to stay awake to converse with me. General Appearance: cooperative HEENT HEENT Narrative: Mucous membranes are very dry Eyes PERRL, EOMs intact bilaterally, conjunctivae normal and no scleral icterus Eyes Narrative: No discharge from the eyes Resp normal respiratory effort, normal air movement and clear to auscultation bilaterally Resp Narrative: Diminished in the bases, suspect secondary to poor inspiratory effort. Effort and Inspection: able to speak in complete sentences Cardio regular rate, regular rhythm, S1 normal heart sound, S2 normal heart sound, no murmurs, no rub and no gallops GI normal to inspection, nondistended, normoactive bowel sounds, soft to palpation and non-tender GI Narrative: No guarding with palpation. no CVA tenderness Narrative: She came to us with a Smith catheter in place secondary to urinary retention. Bladder / Kidney Exam: catheter in place Extremity no calf tenderness and no pedal edema Skin General Skin Exam: no breakdown Rashes: no rashes Neuro Neuro Narrative: She has weakness of the entire left face. Positive left facial droop, weakness of the periorbital muscles on the left and inability to furrow her brow. Shoulder shrug on the left is very weak. Mucousmembranes are very dry. Tongueprotrudes on the midline. Mild dysarthria. She has no movement in theleft upper extremity or the left lower extremity. No extinction. No visual field cuts. Psych cooperative Psych Narrative: Flat affect. Anxious. Appearance: appropriate Activity / Motor Behavior: appropriate eye contact Weight / BMI Weight Weight: 163 lb 2.273 oz Body Mass Index (BMI) 28.0 ABG / Lab / Microbiology Data 11/04/24 05:27 11/03/24 06:38 Laboratory: Laboratory Results - last 24 hr 11/04/24 05:27: WBC 12.1 H, RBC 5.93 H, Hgb 17.7 H, Hct 54.0 H, MCV 91.1, MCH 29.8, MCHC 32.8, RDW Std Deviation 43.2, RDW Coeff of Maria Teresa 12.8, Plt Count 377, MPV 10.2, Immature Gran % (Auto) 0.200, Neut % (Auto) 65.7, Lymph % (Auto) 24.9,[place] % (Auto) 8.2, Eos % (Auto) 0.6, Baso % (Auto) 0.4, Absolute Neuts (auto) 7.9 H, Absolute Lymphs (auto) 3.01, Nucleated RBC % 0 11/04/24 09:40: Troponin T High Sens Cancelled Indicators for Scoring Admitted with or Primary Diagnosis of CVA/Stroke: Yes Hx of CVA/Stroke: No Modified Pleasants Score MRS Score at time of Evaluation: 5-Severe disability NIHSS NIHSS 1a. Level of Consciousness: 1 - Not alert; Arousable by minor stimuli to obey, answer & respond 1b. LOC Questions: 1 - Answers ONE question correctly 1c. LOC Commands: 0 - Performs BOTH tasks correctly 2. Best Gaze: 0 - Normal 3. Visual: 0 - No visual loss 4. Facial Palsy: 3 - Complete paralysis of one or both sides 5a. Left Arm: 0 - No drift; arm holds 90 (or 45) degrees for full 10 seconds 5b. Right Arm: 0 - No drift; arm holds 90 (or 45) degrees for full 10 seconds 6a. Left Le - No movement 6b. Right Le - No drift; leg holds 30-degree position for full 5 seconds 7. Limb Ataxia: 0 - Absent (Cannot be tested due to no movement of the left side. She has no ataxiaon the right side.) 8. Sensory: 1 - [id number]-fcfstyqi sensory loss; 9. Best Language: 0 - No aphasia; normal 10. Dysarthria: 1 = [id number] dysarthria; 11. Extinction and Inattention: 0 - No abnormality Total: 11 Stroke Questions Stroke Team Activated: No D/C Instructions Diet Diet Order/Speech Therapy: INPATIENT Hospital Diet / Speech Therapy Order(s) 11/01/24 15:46 Diet: Cardiac - Heart Healthy Discharge order: Continue INPATIENT Hospital Diet / Speech Therapy Orders: Yes DC O2, CPAP, BIPAP Needs RN Home O2 qualification: 2 No Data to Display Home O2 Discharge instructions: No Meaningful Use Info Meaningful Use Meaningful Use Diagnoses (Choose all that apply): Ischemic CVA CVA Therapy Assessed for PT,OT and/or ST?: Yes Ischemic Stroke Antithrombotic order at d/c?: Yes Dx of Atrial fib/flutter?: No Anticoagulant at discharge?: No Reason anticoagulant not ordered: Treatment not Indicated Statin Dosing Therapy Reference: STATIN DOSE THERAPY REFERENCE: * Patients > 75 years receive moderate or high dose statin therapy. * Patients 75 years or YOUNGER should receive HIGH intensity statin dose unless contraindicated. You will be required to document reason for non-treatment if statin daily dose does not meet guidelines. HIGH DOSE STATIN THERAPY DAILY Atorvastatin > than or = to 40 mg Rosuvastatin > than or = to 20 mg Amlodipine + Atorvastatin > than or = to 2.5/40 mg Ezetimibe + Simvastatin 10/80 mg Simvastatin 80mg Statins at discharge?: Yes If patient is 75 or younger, pt will be discharged on HIGH intensity statin.: Yes Primary Dx Acute Ischemic CVA?: Yes IV thrombolytic ordered during stay?: No Reason IV thrombolytic not ordered: Procedure not Indicated Discharge Plan Admission Admit Date/Time: 11/01/24 15:18 Attending Provider: Kaleb Horta Primary Care Provider: Care Physician,No Primary Consulting Providers: Lori Hay; Kanwal Rodríguez; Eulalia Carpio; Susan Salas; Maurilio Rivera; Pedro Hong; Law Eduardo; Nehemiah Horton; Pratima Arrieta; Chevy Gann; Abigail Guerrero; Ellis Jerome; Nghia Hdez; Jarred Garg NP; Danielle Ferro; Omer Naranjo; Shaun Del Angel; Luis Ravi Chi Discharge Orders/Prescriptions Prescriptions: No Action loratadine [Claritin] 10 MG tablet 10 mg PO DAILY PRN PRN (Reason: Allergies) dexamethasone sodium phosphate 0.1 % drops 1 drp ophthalmic (eye) 4X/DAY dextroamphetamine-amphetamine 30 mg tablet 1 tab PO BID erythromycin 5 mg/gram (0.5 %) ointment 1 applic ophthalmic (eye) QHS cyclobenzaprine 10 mg Tablet 10 mg PO TID PRN PRN (Reason: Muscle Spasm) Qty: 0 0RF atorvastatin 80 mg Tablet 80 mg PO QHS Qty: 0 0RF lisinopril 10 mg Tablet 10 mg PO DAILY Qty: 0 0RF hydrochlorothiazide 12.5 mg Capsule 12.5 mg PO DAILY Qty: 0 0RF aspirin 81 mg Tablet,Chewable 81 mg PO DAILYCM Qty: 0 0RF Referrals / Follow Up: Care Physician,No Primary [Primary Care Provider] - Charges/Coding Visit Charges Inpatient E&M: 84017 Disch Hosp >30min Hospital Course RU Procedures Transesophageal Echo Summary of Care Provided Minutes Spent on Discharge: 55 Hospital Course: Patient is a 39-year-old female who presented to the emergency department at [facility] on 10/30/2024 complaining of left arm weakness, left leg weakness and slurred speech. Hemoglobinat admission was 18.5 and lab was not consistent with dehydration. Urine drug screen at admission was positive for amphetamine and cannabinoids. CT brain showed a left frontal lacunar infarct. CTA ofthe head and neck was negative for large vessel occlusion, high-grade stenosis and aneurysm. She was not a candidate for TNK due to time. She was admitted to the hospitalist service. MRI showed a large area of restricted diffusion in the right frontal and superior parietal precentral cortex and supe rior periventricular region measuring 9 cm x 3 cm x 4.6 cm with associated increased T2 signal and decreased T1 signal components. This was consistent with a subacute infarct. There was a 0.6 cm focus of restricted diffusion in the left superior precentral cortex which appeared acute. There was an old 0.8 cm lacunar infarct in the deep white matter on the left. Transesophageal echo showed normal left ventricular size with an ejectionfraction of 60%. Bubble contrast study was negative for [id number] interatrial shunt and no thrombus was detected in the left atrial appendage. She was seen byneurology and they recommended aspirin 81 mg daily and atorvastatin 80 mg daily. She was instructedto stop vaping. Blood Pressures have been quite elevated at times and she is quite anxious. She had been taking dextroamphetamine/amphetamine 30 mg twice daily for ADD. She was transferred to the acute inpt rehab unit at [facility] on 11/01/24 for 3 hours of therapydaily to restore function, independence ator near her level prior to admission to the hospital. On 11/04/24 she c/o chest tightness associated with SOB. An EKG was checked and she had inferolateralST and T wave changes that were new when compared to an EKG done at admission to the hospital. She was given a SL NTG and the pain resolved. Repeat EKG after NTG continued to show inferolateral ST and T wave changes. HGB on 11/03/24 was 91.2 but on 11/04 it was 17.7 following hydration. She was given a 500 cc bolus of NS and the IV rate was increased to 125 cc/hr. hemoglobin at admission to the hospital was 18.5 with a BUN of 13 and a creatinine of 0.8. The first troponin is elevated at 26. She was seen by Dr. Eduardo from cardiology who recommended adding [id number] mg p.o. twice daily. She is going to be transferred to the acute side of thehospital to the progressive care unit for NSTEMI with unstable angina. Dr. Mata is the admitting hospitalist. Dr. Del Angel was consulted for polycythemia. I ordered a Erythropoietin level prior to DC from rehab. She denies any hx of CP, VTE. She has migraines. Amphetamines have been discontinued and also HCTZ. I notified her aunt, Gloria Meehan, who is the primary contact listed of the change in her condition and transfer to PCU. I answered her questions. 11/04/24 1128 Cosigner Signature (if applicable): CC: Dr. Lois Domingo, DO; No Primary Care Physician~ Signed [facility]08-04-2025 [facility]08-02-2025 History and physical note Author Luis Ravi [facility] Note Date/Time November 02, 2024 1:1 [facility] Medical [facility] Department [address] [place] [address] Post Admission Physician Pearl 11/02/24 1306 MR#: [id number] Acct: [id number] Name: JAYDA OSHEA Rep #:[id number] : 1985 39 From: Luis Ravi MD PCP: Care Physician,No Primary Status :ADM IN Location: [place] [address] Admission Information Primary Diagnosis:: Stroke, left hemiplegia, Hypertension, Migraines. Status Changes from Prescreening?: No changes Identified Actual Problem List:: Pain, ALteration in Cmfrt, Cognitve Impr/Memory Loss, Alteration in Sleep, Mobility Impaired, Self Care Deficit, Ineffective Communication, Know.Dfct/Disease Process, Know.Dfct of Medicaitons, BP, Hypertensionand Alteration-Leisure Activ. Potential Problem List:: DVT, Bleeding, Infection, UTI, Aspiration, Falls, Skin Integrity and Depression Risk of Complications DVT: LMWH, DEBORAH Hose and Sequential Compression Device Bleeding: Monitor Lab Values, Nursing to Teach Precautions for anti-coagulation therapy., Wound, if applicable, to be assessed every shift. and Stroke patients assessed for lethargy or change in status. Infection: Clinical Staff to Monitor for S/S of infection: and S/S of infection include fever, redness, warmth, etc. Urinary Tract Infection: Monitor for frequency, burning, discomfort, or incontinence. and Nursing will obtain urine sample for urinalysis and C&S when ordered. Aspiration: Clinical staff will monitor for coughing, drooling, congestion., Speech will evaluate swallowing and dsyphasia. and Nursing will monitor patient swallowing during meals. Falls: Patient will be evaluated for Fall Precautions and Patient will be placedon Fall Precautions as indicated per protocol. Skin Breakdown: Nursing will assess skin daily using assessment tool. and Nursing will place on Skin Breakdown Precautions as indicated. Pain: Clinical staff will assess patient's pain level per protocol., Medicationswill be given, if needed, and the pain level reassessed. and Other methods: Massage, distraction, decrease stimulus, etc. used PRN. Plan of Care Patient requires physician specializing in physical medicine and rehab oversightto provide close medical supervision of rehab issues including: Pain Management,Sleep Problems, Bowel and Bladder, Medical and co-morbidity Management, DVT prophylaxis, Rehabilitation Leadership and Coordination of treatment team Patient needs Physical Therapy: For a minimum of 1 hour and At least 5 out of 7 days Patient needs Physical Therapy to improve:: Mobility, Strengthening, Transfers, Stretching, ROM, Endurance, Stairs, Gait and Balance Patient needs Occupational Therapy: For a minimum of 1 hour Patient needs Occupational Therapy to improve ADL's incl.: Eating, Grooming, Bathing, Dressing, Toileting, Toilet transfers, Community Reintegration, Higher functioning activities, Household tasks, Adaptive Equipment, Splinting and Otheractivities as determined Patient requires speech therapy: For a minimum of 1 hour Patient requires speech therapy for: Swallowing, Cognition, Language Skills and Compensatory Strategies Patient requires 24/7 Rehabilitation Nursing for: Pain Issues, Identifying and preventing risk factors, Monitoring and reporting current medical conditions, Assisting with ambulation, transfer, and all ADL's, Teaching patients about disease process and medications, Family teaching, Providing safe environment, Bowel and Bladder Issues, Skin integrity and Medication Management Patient needs Banana Loader/ Case Management for: Discharge Planning, Arranging Home Equipment or Services and Family Interventions Patient needs Dietary and Nutrition Services for: Adequate Nutrition, Nutritional Supplements and Nutritional Education Goals Goals Patient will remain: free from falls and or injury at time of discharge. Patient will perform bed mobility at: - (Min A.) Patient will complete transfers from bed to chair at: - (Min A.) Patient will ambulate: - (75 feet w/ hemiwalker min A x 1; 25 feet w/ hemiwalkermin A x 2.) Patient will complete upper body dressing at: - (Min A.) Patient will complete lower body dressing at: - (Min A.) Patient will complete toilet transfer at: - (Min A.) Patient will complete toileting at: - (Min A.) Patient will perform bathing at: - (Min A.) Patient will perform Tub/Shower transfer at: - (DME PRN Min A.) Patient will complete grooming at: - (Min A.) Patient will complete home management skills at: - (Min A.) Patient will achieve: - (3 steps w/ 1 rail Min A.) Patient will have pain level of: of 3 or less Patient's skin will: remain intact and free from infection. Patient will receive: adequate nutrition. Discharge Planning Pt Prognosis for Sig. Practical Improv. w/in Reasonable Time: Fair Estimated Length of stay (days): 21 Anticipated D/C Destination: Home with Outpt Therapy Was Preadmission Assessment Accurate?: Yes 11/02/24 1311 <Electronically signed by Luis Ravi MD> Cosigner Signature (if applicable): CC: ~ Signed [facility] Work Phone: 1(605) 864-263008-02-2025 History and physical note [facility] Medical Records Department [address] [place] [address] Post Admission Physician Pearl 11/02/24 1306 MR#: [id number] Acct: [id number] Name: JAYDA OSHEA Rep #:[id number] : 1985 39 From: Luis Ravi MD PCP: Care Physician,No Primary Status :ADM IN Location: [place] [address] Admission Information Primary Diagnosis:: Stroke, left hemiplegia, Hypertension, Migraines. Status Changes from Prescreening?: No changes Identified Actual Problem List:: Pain, ALteration in Cmfrt, Cognitve Impr/Memory Loss, Alteration in Sleep, Mobility Impaired, Self Care Deficit, Ineffective Communication, Know.Dfct/Disease Process, Know.Dfct of Medicaitons, BP, Hypertensionand Alteration-Leisure Activ. Potential Problem List:: DVT, Bleeding, Infection, UTI, Aspiration, Falls, Skin Integrity and Depression Risk of Complications DVT: LMWH, DEBORAH Hose and Sequential Compression Device Bleeding: Monitor Lab Values, Nursing to Teach Precautions for anti-coagulation therapy., Wound, ifapplicable, to be assessed every shift. and Stroke patients assessed for lethargy or change in status. Infection: Clinical Staff to Monitor for S/S of infection: and S/S of infection include fever, redness, warmth, etc. Urinary Tract Infection: Monitor for frequency, burning, discomfort, or incontinence. and Nursing will obtain urine sample for urinalysis and C&S when ordered. Aspiration: Clinical staff will monitor for coughing, drooling, congestion., Speech will evaluate swallowing and dsyphasia. and Nursing will monitor patient swallowing during meals. Falls: Patient will be evaluated for Fall Precautions and Patient will be placedon Fall Precautionsas indicated per protocol. Skin Breakdown: Nursing will assess skin daily using assessment tool. and Nursing will place on Skin Breakdown Precautions as indicated. Pain: Clinical staff will assess patient's pain level per protocol., Medicationswill be given, if needed, and the pain level reassessed. and Other methods: Massage, distraction, decrease stimulus, etc. used PRN. Plan of Care Patient requires physician specializing in physical medicine and rehab oversightto provide close medical supervision of rehab issues including: Pain Management,Sleep Problems, Bowel and Bladder, Medical and co-morbidity Management, DVT prophylaxis, Rehabilitation Leadership and Coordination of treat ment team Patient needs Physical Therapy: For a minimum of 1 hour and At least 5 out of 7 days Patient needs Physical Therapy to improve:: Mobility, Strengthening, Transfers, Stretching, ROM, Endurance, Stairs, Gait and Balance Patient needs Occupational Therapy: For a minimum of 1 hour Patient needs Occupational Therapy to improve ADL's incl.: Eating, Grooming, Bathing, Dressing, Toileting, Toilet transfers, Community Reintegration, Higher functioning activities, Household tasks, Adaptive Equipment, Splinting and Otheractivities as determined Patient requires speech therapy: For a minimum of 1 hour Patient requires speech therapy for: Swallowing, Cognition, Language Skills and Compensatory Strategies Patient requires / Rehabilitation Nursing for: Pain Issues, Identifying and preventing risk factors, Monitoring and reporting current medical conditions, Assisting with ambulation, transfer, and all ADL's, Teaching patients about disease process and medications, Family teaching, Providing safe environment, Bowel and Bladder Issues, Skin integrity and Medication Management Patient needs Banana Loader/ Case Management for: Discharge Planning, Arranging Home Equipment orServices and Family Interventions Patient needs Dietary and Nutrition Services for: Adequate Nutrition, Nutritional Supplements and Nutritional Education Goals Goals Patient will remain: free from falls and or injury at time of discharge. Patient will perform bed mobility at: - (Min A.) Patient will complete transfers from bed to chair at: - (Min A.) Patient will ambulate: - (75 feet w/ hemiwalker min A x 1; 25 feet w/ hemiwalkermin A x 2.) Patient will complete upper body dressing at: - (Min A.) Patient will complete lower body dressing at: - (Min A.) Patient will complete toilet transfer at: - (Min A.) Patient will complete toileting at: - (Min A.) Patient will perform bathing at: - (Min A.) Patient will perform Tub/Shower transfer at: - (DME PRN Min A.) Patient will complete grooming at: - (Min A.) Patient will complete home management skills at: - (Min A.) Patient will achieve: - (3 steps w/ 1 rail Min A.) Patient will have pain level of: of 3 or less Patient's skin will: remain intact and free from infection. Patient will receive: adequate nutrition. Discharge Planning Pt Prognosis for Sig. Practical Improv. w/in Reasonable Time: Fair Estimated Length of stay (days): 21 Anticipated D/C Destination: Home with Outpt Therapy Was Preadmission Assessment Accurate?: Yes 11/02/24 1311 Cosigner Signature (if applicable): CC: ~ Signed [facility]08-01-2025 History and physical note Author Luis Ravi [facility] Note Date/Time November 01, 2024 4:5 3pm [facility] Medical Records Department [address] [place] [address] History & Physical Exam 11/01/24 1617 MR#: [id number] Acct: [id number] Name: JAYDA OSHEA Rep #:[id number] : 1985 39 From: Luis Ravi MD PCP: Care Physician,No Primary Status :ADM IN Location: [id number] HPI - General General Date of Admission: 11/01/24 Date of Service: 11/01/24 Chief Complaint: Here for 3 hours daily rehabilitation. HPI Narrative JAYDA OSHEA, is a 39 Female who presents with followin10/30/2024 [facility] ED stroke alert. Sudden left arm weakness, [...] for migraine headache, headache improved. 10/30/2024 Admit [facility]. MRI brain, Echo, Aspirin, Statin for stroke. [...] daily rehabilitation, strengthening, prior to disposition determination. [facility] Medical History (Updated 11/01/24 @ 16:[address] Luis Ravi MD) HTN (hypertension) ADHD Migraine Strain of great toe, right Contusion of right great toe without damage to nail Home Medications ?Medication ?Instructions ?Recorded ?Last Taken ?Type loratadine 10 mg tablet (Claritin) 10 mg PO DAILY PRN PRN Allergies 01/25/18 Unknown History dexamethasone sodium phosphate 0.1 1 drp ophthalmic (e ye) 4X/DAY eye 10/30/24 Unknown History % eye drops inflamattion dextroamphetamine-amphetamine 30 1 tab PO BID inflamma tion 10/30/24 Unknown History mg tablet erythromycin 5 mg/gram (0.5 %) eye 1 applic ophthalmic (eye) QHS eye 10/30/24 10/31/24 History ointment aspirin 81 mg chewable tablet 81 mg PO DAILYCM heart h ealth #0 11/01/24 11/01/24 Rx tabs atorvastatin 80 mg tablet 80 mg PO QHS cholesterol #0 tabs 11/01/24 10/31/24 Rx cyclobenzaprine 10 mg tablet 10 mg PO TID PRN PRN Musc le Spasm 11/01/24 11/01/24 13:15 Rx #0 tabs hydrochlorothiazide 12.5 mg capsule 12.5 mg PO DAILY b lood pressure #0 11/01/24 Unknown Rx caps lisinopril 10 mg tablet 10 mg PO DAILY blood pressur e #0 11/01/24 11/01/24 Rx tabs Allergy/AdvReac Type Severity [...] CVA/Stroke: Yes Hx of CVA/Stroke: No Modified Quinn Score MRS Score at time of Evaluation: 4-Moderate/severe disability NIHSS NIHSS 1a. Level of Consciousness: 1 - Not alert; Arousable by minor stimuli to obey, answer & respond 1b. LOC Questions: 1 - Answers ONE question correctly 1c. LOC Commands: 0 - Performs BOTH tasks correctly 2. Best Gaze: 1 - Partial gaze palsy; 3. Visual: 0 - No visual loss 4. Facial Palsy: 2 - Partial paralysis (total or near-total paralysis of lower face) 5a. Left Arm: 4 - No movement 5b. Right Arm: 0 - No drift; arm holds 90 (or 45) degrees for full 10 seconds 6a. Left Le - No movement 6b. Right Le - No drift; leg holds 30-degree position for full 5 seconds 7. Limb Ataxia: 0 - Absent 8. Sensory: 1 - Hsed-mc-roxsdqjr sensory loss; 9. Best Language: 0 - No aphasia; normal 10. Dysarthria: 0 - Normal 11. Extinction and Inattention: 2 - Profound keya-inattention or extinction to more than one modality; Total: 16 Stroke Questions Stroke Team Activated: Yes a.Reviewed Inclusion/Exclusion criteria: Yes Was Patient considered for Endovascular Intervention?: No IV Thrombolytic Administered: No No contraindications from thrombolytic administration: Yes Risks, Benefits, Alternatives Discussed: Yes Not given: Patient refusal: No Physical Exam Const alert General Appearance: cooperative HEENT normocephalic Eyes PERRL and EOMs intact bilaterally Neck supple, no JVD and no carotid bruits Resp normal respiratory effort, normal air movement and clear to auscultation bilaterally Cardio regular rate and regular rhythm GI normal to inspection, nondistended, normoactive bowel sounds, non-tender and non-distended Extremity normal capillary refill General Extremity: Negative for edema Skin no rashes or lesions noted General Skin Exam: no breakdown Neuro Neuro Narrative: Dense left hemiplegia, left sided neglect. Psych affect normal Appearance: appropriate Assessment & Plan Assessment/Plan (1) Debility: (2) Stroke: (3) Left hemiplegia: (4) Polycythemia: (5) Essential (primary) hypertension: (6) Tobacco abuse: (7) ADHD: QUALIFIERS: Attention deficit-hyperactivity disorder type: unspecified Qualified Code(s): F90.9 - Attention-deficit hyperactivity disorder, unspecified type (8) Allergic rhinitis: (9) Migraine headache: QUALIFIERS: Intractability: not intractable Migraine type: unspecified Status migrainosus presence: without status migrainosus Qualified Code(s): G43.909 - Migraine, unspecified, not intractable, without status migrainosus PLAN: Plan 39 year old female with below past medical history hospitalized for stroke, lefthemiplegia, left sided neglect, complicated by polycythemia, migraines, admittedto [facility] for 3 hours daily rehabilitation, strengthening, prior to disposition determination. * Debility - PT/OT/ST. * Pain - Tylenol 1000mg q6 prn pain (1-10). * Bowel - senna/colace 2 tablets bid, Dulcolax 10mg pr x1 prn, MOM 30mL po x 1 prn. * DVT prophylaxis - Lovenox 40mg sc daily. * Stroke - Aspirin 81mg daily. * Hyperlipidemia - Atorvastatin 80mg qhs. * Muscle spasm - Flexeril 10mg tid prn. * Conjunctivitis - Dexamethasone 1ml 4x/day, E-mycin OU QHS. * ADHD - Adderall 30mg bid. * Hypertension - Lisinopril 10mg daily, HCTZ 12.5mg daily. * Allergic rhinitis - Loratadine 10mg daily prn. 11/01/24 165 <Electronically signed by Luis Ravi MD> Cosigner Signature (if applicable): CC: Dr. Luis Ravi MD; No Primary Care Physician~ Signed [facility] Work Phone: 1(232) 890-492508-01-2025 History and physical note [facility] Medical Records Department [address] [place] [address] History & Physical Exam 11/01/24 1617 MR#: [id number] Acct: [id number] Name: DAYOJAYDA Rep #:[id number] : 1985 39 From: Luis Ravi MD PCP: Care Physician,No Primary Status :ADM IN Location: [place] [address]-1 HPI - General General Date of Admission: 11/01/24 Date of Service: 11/01/24 Chief Complaint: Here for 3 hours daily rehabilitation. HPI Narrative JAYDA OSHEA, is a 39 Female who presents with followin10/30/2024 [facility] ED stroke alert. Sudden left arm weakness, left leg weakness, slurred speech. Headache, nausea. Left sided weakness, started today, LUE weakness, LLE weakness. Hemoglobin 18.5, inr okay, ptt okay. CT brain left frontal lacunar infarct, CTA head/neck negative large vessel occlusion, negative highgrade stenosis. NIHSS 11. Chest x-ray okay, EKG okay. Outside window for TNK, Labetalol given for elevated blood pressure. Reglan, Benadryl, IV fluids given for migraine headache, headache improved. 10/30/2024 Admit [facility]. MRI brain, Echo, Aspirin, Statin for stroke. [...] daily rehabilitation, strengthening, prior to disposition determination. [facility] Medical History (Updated 11/01/24 @ 16:[address] Luis Ravi MD) HTN (hypertension) ADHD Migraine Strain of great toe, right Contusion of right great toe without damage to nail Home Medications ?Medication ?Instructions ?Recorded ?Last Taken ?Type loratadine 10 mg tablet (Claritin) 10 mg PO DAILY PRN PRN Allergies 01/25/18 Unknown History dexamethasone sodium phosphate 0.1 1 drp ophthalmic (e ye) 4X/DAY eye 10/30/24 Unknown History % eye drops inflamattion dextroamphetamine-amphetamine 30 1 tab PO BID inflamma tion 10/30/24 Unknown History mg tablet erythromycin 5 mg/gram (0.5 %) eye 1 applic ophthalmic (eye) QHS eye 10/30/24 10/31/24 History ointment aspirin 81 mg chewable tablet 81 mg PO DAILYCM heart h ealth #0 11/01/24 11/01/24 Rx tabs atorvastatin 80 mg tablet 80 mg PO QHS cholesterol #0 tabs 11/01/24 10/31/24 Rx cyclobenzaprine 10 mg tablet 10 mg PO TID PRN PRN Musc le Spasm 11/01/24 11/01/24 13:15 Rx #0 tabs hydrochlorothiazide 12.5 mg capsule 12.5 mg PO DAILY b lood pressure #0 11/01/24 Unknown Rx caps lisinopril 10 mg tablet 10 mg PO DAILY blood pressur e #0 11/01/24 11/01/24 Rx tabs Allergy/AdvReac Type Severity [...] CVA/Stroke: Yes Hx of CVA/Stroke: No Modified Pleasants Score MRS Score at time of Evaluation: 4-Moderate/severe disability NIHSS NIHSS 1a. Level of Consciousness: 1 - Not alert; Arousable by minor stimuli to obey, answer & respond 1b. LOC Questions: 1 - Answers ONE question correctly 1c. LOC Commands: 0 - Performs BOTH tasks correctly 2. Best Gaze: 1 - Partial gaze palsy; 3. Visual: 0 - No visual loss 4. Facial Palsy: 2 - Partial paralysis (total or near-total paralysis of lower face) 5a. Left Arm: 4 - No movement 5b. Right Arm: 0 - No drift; arm holds 90 (or 45) degrees for full 10 seconds 6a. Left Le - No movement 6b. Right Le - No drift; leg holds 30-degree position for full 5 seconds 7. Limb Ataxia: 0 - Absent 8. Sensory: 1 - Suym-zh-jxgiezdg sensory loss; 9. Best Language: 0 - No aphasia; normal 10. Dysarthria: 0 - Normal 11. Extinction and Inattention: 2 - Profound keya-inattention or extinction to more than one modality; Total: 16 Stroke Questions Stroke Team Activated: Yes a.Reviewed Inclusion/Exclusion criteria: Yes Was Patient considered for Endovascular Intervention?: No IV Thrombolytic Administered: No No contraindications from thrombolytic administration: Yes Risks, Benefits, Alternatives Discussed: Yes Not given: Patient refusal: No Physical Exam Const alert General Appearance: cooperative HEENT normocephalic Eyes PERRL and EOMs intact bilaterally Neck supple, no JVD and no carotid bruits Resp normal respiratory effort, normal air movement and clear to auscultation bilaterally Cardio regular rate and regular rhythm GI normal to inspection, nondistended, normoactive bowel sounds, non-tender and non-distended Extremity normal capillary refill General Extremity: Negative for edema Skin no rashes or lesions noted General Skin Exam: no breakdown Neuro Neuro Narrative: Dense left hemiplegia, left sided neglect. Psych affect normal Appearance: appropriate Assessment & Plan Assessment/Plan (1) Debility: (2) Stroke: (3) Left hemiplegia: (4) Polycythemia: (5) Essential (primary) hypertension: (6) Tobacco abuse: (7) ADHD: QUALIFIERS: Attention deficit-hyperactivity disorder type: unspecified Qualified Code(s): F90.9 - Attention-deficit hyperactivity disorder, unspecified type (8) Allergic rhinitis: (9) Migraine headache: QUALIFIERS: Intractability: not intractable Migraine type: unspecified Status migrainosus presence:without status migrainosus Qualified Code(s): G43.909 - Migraine, unspecified, not intractable, without status migrainosus PLAN: Plan 39 year old female with below past medical history hospitalized for stroke, lefthemiplegia, left sided neglect, complicated by polycythemia, migraines, admittedto for 3 hours daily rehabilitation,strengthening, prior to disposition determination. * Debility - PT/OT/ST. * Pain - Tylenol 1000mg q6 prn pain (1-10). * Bowel - senna/colace 2 tablets bid, Dulcolax 10mg pr x1 prn, MOM 30mL po x 1 prn. * DVT prophylaxis - Lovenox 40mg sc daily. * Stroke - Aspirin 81mg daily. * Hyperlipidemia - Atorvastatin 80mg qhs. * Muscle spasm - Flexeril 10mg tid prn. * Conjunctivitis - Dexamethasone 1ml 4x/day, E-mycin OU QHS. * ADHD - Adderall 30mg bid. * Hypertension - Lisinopril 10mg daily, HCTZ 12.5mg daily. * Allergic rhinitis - Loratadine 10mg daily prn. 11/01/24 1650 Cosigner Signature (if applicable): CC: Dr. Luis Ravi MD; No Primary Care Physician~ Signed [facility]08-01-2025 [facility]08-01-2025 Discharge summary [facility] Medical Records Department [address] [place] [address] Instructions for Home/Discharge Instructions 11/01/24 1422 MR#: [id number] Acct: [id number] Name: JAYDA OSHEA Rep #:[id number] : 1985 39 From: Vee Stuart MD PCP: Care Physician,No Primary Status :ADM IN Discharge Instructions DC O2, CPAP, BIPAP needs Home O2 Discharge instructions: No Dressing / Incision Discharge Activity: - (Discharging to [facility] re[facility]) Follow Up Care Test Results: Test [...] your blood pressure has been it is alsoadvised that you start 12.5 mg of hydrochlorothiazide [...] chronic headaches and follows with neurology,would recommend shecontinue following on discharge for further evaluation and [...] Recorder Preventi (Urgent) Timeframe: 1 Day Facility: [facility] - Location: Cardiovascular Services Ordered By: Dr. [...] can be placed): Inpatient Rehab Unit/Facility 11/01/24 1430Vee Stuart MD CC: Lydia Orantes; Sherry Lugo; [...] Primary Care Physician; Mark Garcias MD ~ [facility]08-01-2025 [facility]07-31-2025 Consult note Author Tong [facility] Note Date/Time October 31, 2024 1:03 pm [facility] Medical Records Department [address] [place] [address] Consultation - Neurology 10/31/24 1253 MR#: [id number] Acct: [id number] Name: JAYDA OSHEA Rep #:[id number] : 1985 39 From: Tong Rai MD PCP: Care Physician,No Primary Status :ADM IN Location: [place] [address] Assessment and Plan: Stroke Assessment/Plan JAYDA OSHEA [...] given her subtle exam fluctuations. In the usp, BP goal is < 130/85. If her [...] snoring, apneic episodes of excessive daytime somnolence. [facility] Medical History (Updated 10/31/24 @ 00:55 by [...] 79.3 H, Lymph % (Auto) 15.0 L, [place] % (Auto) 4.2, Eos % (Auto) 0.4, [...] 9:01 pm EST on 10/30/24. Reading Location: [facility] Head/Neck CTA 10/30/24 20:52 IMPRESSION: No acute large vessel occlusion. No high grade stenosis. Reading Location: [facility] Chest X-Ray 10/30/24 21:41 IMPRESSION: No acute cardiopulmonary disease. Reading Location: [facility] Brain MRI 10/31/24 06:00 IMPRESSION: There is [...] Thai at the time ofdictation. [facility] Active Medications Active Medications Active Medications: [...] 10/31/24 09:56 IV 10/31/24 14:02 70 mls/hr .[id number] MARIN Infusion Labetalol HCl 10 - 20 [...] and with change in RN caregiver. Freq: [id number] Protocol: Activity Type Activity Date Activity User E-sign Co-sign Detail Recorded Client Recorded Date Recorded By Document 10/31/24 10:00 [facility] [id number] 10/31/24 10:07 [facility] 10/31/24 10:00 NIH Stroke Scale [NIHSS] A [...] 0 - Absent 8. Sensory: 1 - Cqjs-xc-clritjew sensory loss; 9. Best Language: 0 - No aphasia; normal 10. Dysarthria: 1 = Pqyw-wr-mucadztq dysarthria; 11. Extinction and Inattention: 0 - No abnormality Total: 10 10/31/24 1303 <Electronically signed by Tong Rai MD> Cosigner Signature (if applicable): CC: No Primary Care Physician~ Signed [facility] Work Phone: 1(448) 122-632107-31-[address] [facility] Medical Records Department [address] [place] [address] Consultation - Neurology 10/31/24 1253 MR#: [id number] Acct: [id number] Name: JAYDA OSHEA Rep #:[id number] : 1985 39 From: Tong Rai MD PCP: Care Physician,No Primary Status :ADM IN Location: [place] [address] Assessment and Plan: Stroke Assessment/Plan JAYDA OSHEA [...] given her subtle exam fluctuations. In the usp, BP goal is < 130/85. If her [...] snoring, apneic episodes of excessive daytime somnolence. [facility] Medical History (Updated 10/31/24 @ 00:55 by [...] 79.3 H, Lymph % (Auto) 15.0 L, [place] % (Auto) 4.2, Eos % (Auto) 0.4, [...] 209 H, LDL Cholesterol, Calc 108, VLDL Vmkeiexnqol98, HDL Cholesterol 61, Cholesterol/HDL Ratio 3.43, Vitamin B12 484 Imaging Radiology Impression Brain CT 10/30/24 20:46 IMPRESSION: Left frontal lobe periventricular white matter focal hypodensity measuring approximally 7 x 7 mm, which may reflect a lacunar infarction however acute infarction is not entirely excluded. Dr. Silva was notified by Jeanette De Jesus at 9:01 pm EST on 10/30/24. Reading Location: [facility] Head/Neck CTA 10/30/24 20:52 IMPRESSION: No acute large vessel occlusion. No high grade stenosis. Reading Location: [facility] Chest X-Ray 10/30/24 21:41 IMPRESSION: No acute cardiopulmonary disease. Reading Location: [facility] Brain MRI 10/31/24 06:00 IMPRESSION: There is [...] the left superior precentral cortex, axial image /, which appears acute. There is a 0.8 cm old lacunar infarct inthe deep white matter on the left. Critical results were discussed with Velia Parada by Thai at the time ofdictation. Reading Location: [facility] Active Medications Active Medications Active Medications: [...] 22:00 Erythromycin Base 1 Opth.Tube [facility] Hydralazine HCl 5 mg 07/31/25 01:12 Hydralazine 20 Mg/Ml Vial IV 11/01/24 01:12 Q30M PRN maintain BP parameters with HR <60 Sodium Chloride 1,000 mls @ 70 mls/hr 10/30/24 23:45 10/31/24 09:56 IV 10/31/24 14:02 70 mls/hr .[id number] MARIN Infusion Labetalol HCl 10 - 20 [...] and with change in RN caregiver. Freq: [id number] Protocol: Activity Type Activity Date Activity User E-sign Co-sign Detail Recorded Client Recorded Date Recorded By Document 10/31/24 10:00 [facility] [id number] 10/31/24 10:07 [facility] 10/31/24 10:00 NIH Stroke Scale [NIHSS] A [...] 0 - Absent 8. Sensory: 1 - Qoit-pg-nscsqcch sensory loss; 9. Best Language: 0 - No aphasia; normal 10. Dysarthria: 1 = Zdzv-rx-ohebrhvn dysarthria; 11. Extinction and Inattention: 0 - No abnormality Total: 10 10/31/24 1303 Cosigner Signature (if applicable): CC: No Primary Care Physician~ Signed [facility]07-31-2025 Progress note Author Sen [facility] Note Date/Time October 31, 2024 9:46 am [facility] Medical Records Department [address] [place] [address] Progress Note - Hospitalist 10/31/24 0938 MR#: [id number] Acct: [id number] Name: JAYDA OSHEA Rep #:[id number] : 1985 39 From: Sen sherwood MD PCP: Care Physician,No Primary Status :ADM IN Location: [place] [id number]- [id number] Subjective Subjective Still having a migraine, [...] 79.3 H, Lymph % (Auto) 15.0 L, [place] % (Auto) 4.2, Eos % (Auto) 0.4, [...] 9:01 pm EST on 10/30/24. Reading Location: [facility] Head/Neck CTA 10/30/24 20:52 IMPRESSION: No acute large vessel occlusion. No high grade stenosis. Reading Location: [facility] Chest X-Ray 10/30/24 21:41 IMPRESSION: No acute cardiopulmonary disease. Reading Location: [facility] Physical Exam Narrative General: Alert, Oriented x3, [...] DVT: SCDs Charges/Coding Visit Charges Inpatient E&M: 17474 Subs Hosp L2 NIHSS NIHSS Nursing Documentation NIHSS Nursing Documentation: NIHSS: Ischemic Stroke/TIA Start: 10/31/24 01:12 Text: For PCU Patients: NIH and Neuro Check every 4 Status: Active hours, PRN and with change in RN caregiver. Freq: [id number] Protocol: Activity Type Activity Date Activity User E-sign Co-sign Detail Recorded Client Recorded Date Recorded By Document 10/31/24 06:00 [facility] [id number] 10/31/24 06:25 [facility] 10/31/24 06:00 NIH Stroke Scale [NIHSS] A [...] Cosigner Signature (if applicable): CC: ~ Signed [facility] Work Phone: 1(208) 636-863507-31-[address] [facility] Medical Records Department [address] [place] [address] Progress Note - Hospitalist 10/31/2438 MR#: [id number] Acct: [id number] Name: JAYDA OSHEA Rep #:[id number] : 1985 39 From: Sen sherwood MD PCP: Care Physician,No Primary Status :ADM IN Location: [place] [address] Subjective Subjective Still having a migraine, and [...] 79.3 H, Lymph % (Auto) 15.0 L, [place] % (Auto) 4.2, Eos % (Auto) 0.4, [...] 209 H, LDL Cholesterol, Calc 108, VLDL Xhicpzqialf43, HDL Cholesterol 61, Cholesterol/HDL Ratio 3.43, Vitamin B12 484 Radiography Diagnostic Testing: Radiology Impression Brain CT 10/30/24 20:46 IMPRESSION: Left frontal lobe periventricular white matter focal hypodensity measuring approximally 7 x 7 mm, which may reflect a lacunar infarction however acute infarction is not entirely excluded. Dr. Silva was notified by Jeanette De Jesus at 9:01 pm EST on 10/30/24. Reading Location: [facility] Head/Neck CTA 10/30/24 20:52 IMPRESSION: No acute large vessel occlusion. No high grade stenosis. Reading Location: [facility] Chest X-Ray 10/30/24 21:41 IMPRESSION: No acute cardiopulmonary disease. Reading Location: [facility] Physical Exam Narrative General: Alert, Oriented x3, [...] DVT: SCDs Charges/Coding Visit Charges Inpatient E&M: 85276 Subs Hosp L2 NIHSS NIHSS Nursing Documentation NIHSS Nursing Documentation: NIHSS: Ischemic Stroke/TIA Start: 10/31/24 01:12 Text: For PCU Patients: NIH and Neuro Check every 4 Status: Active hours, PRN and with change in RN caregiver. Freq: [id number] Protocol: Activity Type Activity Date Activity User E-sign Co-sign Detail Recorded Client Recorded Date Recorded By Document 10/31/24 06:00 [facility] [id number] 10/31/24 06:25 [facility] 10/31/24 06:00 NIH Stroke [...] Cosigner Signature (if applicable): CC: ~ Signed [facility]07-31-2025 History and physical note Author Nehemiah Medrano [facility] Note Date/Time October 31, 2024 6:[address] [facility] Medical Records Department [address] [place] [address] H&P Exam - Hospitalist 10/30/24 4085 MR#: [id number] Acct: [id number] Name: JAYDA OSHEA Rep #:[id number] : 1985 39 From: Nehemiah Cordova DO PCP: Care Physician,No Primary Status :ADM IN Location: [place] [address]- 1 HPI - General General Date of [...] seasonal allergies; on loratadine who presents to [facility] ER complaining of acute Left-sided weakness with [...] status expected to extend beyond 2 midnights. [facility] Medical History (Updated 10/31/24 @ 00:55 by [...] 79.3 H, Lymph % (Auto) 15.0 L, [place] % (Auto) 4.2, Eos % (Auto) 0.4, [...] 9:01 pm EST on 10/30/24. Reading Location: [facility] Head/Neck CTA 10/30/24 20:52 IMPRESSION: No acute large vessel occlusion. No high grade stenosis. Reading Location: [facility] Chest X-Ray 10/30/24 21:41 IMPRESSION: No acute cardiopulmonary disease. Reading Location: [id number] Assessment & Plan Assessment/Plan (1) Ischemic cerebrovascular [...] artery vasospasm. Give acetaminophen as needed for liss-ub-vjvgbfqy (level 1-5/10) pain or fever. Givemorphine IV [...] 75 minutes. Charges/Coding Visit Charges Inpatient E&M: 04898 Init Hosp L3 10/31/24 0631 <Electronically signed by Nehemiah Haney DO> Cosigner Signature (if applicable): CC: Dr. Nehemiah Haney DO; No Primary Care Physician~ Signed [facility] Work Phone: 1(625) 395-911007-31-2025 History and physical note [facility] Medical Records Department [address] [place] [address] H&P Exam - Hospitalist 10/30/24 2323 MR#: [id number] Acct: [id number] Name: JAYDA OSHEA Rep #:[id number] : 1985 39 From: Nehemiah Cordova DO PCP: Care Physician,No Primary Status :ADM IN Location: [place] [address] HPI - General General Date of Admission: [...] seasonal allergies; on loratadine who presents to [facility] ER complaining of acute Left-sided weakness with [...] status expected to extend beyond 2 midnights. [facility] Medical History (Updated 10/31/24 @ 00:55 by [...] 79.3 H, Lymph % (Auto) 15.0 L, [place] % (Auto) 4.2, Eos % (Auto) 0.4, [...] 9:01 pm EST on 10/30/24. Reading Location: [facility] Head/Neck CTA 10/30/24 20:52 IMPRESSION: No acute large vessel occlusion. No high grade stenosis. Reading Location: [facility] Chest X-Ray 10/30/24 21:41 IMPRESSION: No acute cardiopulmonary disease. Reading Location: [facility] Assessment & Plan Assessment/Plan (1) Ischemic cerebrovascular [...] artery vasospasm. Give acetaminophen as needed for zslf-tz-cdkcsoch (level 1-5/10) pain or fever. Givemorphine IV [...] 75 minutes. Charges/Coding Visit Charges Inpatient E&M: 96166 Init Hosp L3 10/31/24 0631 Cosigner Signature (if applicable): CC: Dr. Nehemiah Haney, DO; No Primary Care Physician~ Signed [facility]07-31-2025 Discharge summary Author Domenico Silva [facility] Note Date/Time October 31, 2024 1:01 am [facility] Medical Records Department [address] [place] [address] Emergency Department Summary 10/30/24 MR#: [id number] Acct: [id number] Name: DAYORAVINDER MurdockChristina Salas Rep #:[id number] : 1985 39 From: Domenico Poon PCP: Care Physician,No Primary Status :ADM IN Location: [place] [address] HPI History of Present Illness Chief Complaint: Stroke Alert Informant: patient and EMS Onset/Context/Timing Onset: Today Context: Sudden Onset Timing: Continuous Quality and Location: Positive for Left Arm Weakness and Left Leg Weakness Onset: Last known well was 1530 today (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 Patient denies any fevers or chills. [facility] Medical History (Updated 10/31/24 @ 00:[address] Domenico Silva, ) HTN (hypertension) ADHD Migraine Strain of [...] oriented x3 and CN's II-XII intact bilaterally [place] Coma Scale: document GCS findings Spontaneous Obeys Commands Oriented 15 Sensorium / Orientation: alert Speech: speech normal MDM MDM MDM Narrative Medical decision making narrative: Prehospital stroke alert was called. [facility] Patient had a left [...] 79.3 H Lymph % (Auto) 15.0 L [place] % (Auto) 4.2 Eos % (Auto) 0.4 [...] 9:01 pm EST on 10/30/24. Reading Location: [facility] Head/Neck CTA 10/30/24 20:52 IMPRESSION: No acute large vessel occlusion. No high grade stenosis. Reading Location: [facility] Chest X-Ray 10/30/24 21:41 IMPRESSION: No acute cardiopulmonary disease. Reading Location: [facility] CT scan of the brain was obtained. [...] sinus rhythm with a rate of 73. MI interval, QRS interval, and QTc intervals were all normal. [place] was normal. There are no acute ST or T wave changes. Prior EKG tracings: available for review Prior: Unchanged (11/27/2023) Management Discussion w/another healthcare provider: Hospitalist, City Council Member (Stroke neurologist [facility]) and Radiologist Treatment and Re-Evaluation Narrative: [...] (36), Including time spent:, Discussing w/Patient &/or Family/Brazer Induction, Discussing w/Consultants, Arranging Admission or Transfer and Performing Direct Patient Care at Bedside Discharge Plan Dx/Rx/DC Orders Clinical Impression: Acute left-sided weakness, Hypertension, Migraine headache, Overweight (BMI 25.0-29.9), Polycythemia Disposition Disposition: Acute Care Hospital [facility] Discharge Date/Time: 10/31/24 00:35 NIHSS NIHSS 1a. [...] your Primary Care Provider. Call [facility] ([phone]) or report to the closest Emergency Room. Call 911 if necessary. 10/31/24 0101 <Electronically signed by Domenico Silva DO> Cosigner Signature (if applicable): CC: No Primary Care Physician ~ Signed [facility] Work Phone: 1([phone]) [phone] Discharge summary [facility] Medical Records Department [address] [place] [address] Emergency Department Summary 10/30/24 MR#: [id number] Acct: [id number] Name: JAYDA OSHEA Rep #:[id number] : 1985 39 From: Domenico Poon PCP: Care Physician,No Primary Status :ADM IN Location: [address] History of Present Illness Chief Complaint: Stroke Alert Informant: patient and EMS Onset/Context/Timing Onset: Today Context: Sudden Onset Timing: Continuous Quality and Location: Positive for Left Arm Weakness and Left Leg Weakness Onset: Last known well was 1530 today (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 Patient denies any fevers or chills. [facility] Medical History (Updated 10/31/24 @ [...] called. [facility]. Patient had a left [...] 79.3 H Lymph % (Auto) 15.0 L [place] % (Auto) 4.2 Eos % (Auto) 0.4 [...] 9:01 pm EST on 10/30/24. Reading Location: [facility] Head/Neck CTA 10/30/24 20:52 IMPRESSION: No acute large vessel occlusion. No high grade stenosis. Reading Location: [facility] Chest X-Ray 10/30/24 21:41 IMPRESSION: No acute cardiopulmonary disease. Reading Location: [facility] CT scan of the brain was obtained. [...] anormal sinus rhythm with arate of 73. MI interval, QRS interval, and QTc intervals were all normal. [place] was normal. There are no acute ST or T wave changes. Prior EKG tracings: available for review Prior: Unchanged (11/27/2023) Management Discussion w/another healthcare provider: Hospitalist, City Council Member (Stroke neurologist [facility]) and Radiologist Treatment and Re-Evaluation Narrative: [...] (36), Including time spent:, Discussing w/Patient &/or Family/Brazer Induction, Discussing w/Consultants, Arranging Admission or Transfer and Performing Direct Patient Care at Bedside Discharge Plan Dx/Rx/DC Orders Clinical Impression: Acute left-sided weakness, Hypertension, Migraine headache, Overweight (BMI 25.0-29.9), Polycythemia Disposition Disposition: [facility] Discharge Date/Time: 10/31/24 00:35 NIHSS NIHSS 1a. [...] problems, contact your Primary Care Provider. Call [facility] ([phone]) or report tothe closest Emergency Room. Call 911 if necessary. 10/31/24 010 Cosigner Signature (if applicable): CC: No Primary Care Physician ~ Signed [facility]07-30-2025 Radiology Diagnostic study note [facility] Imaging Services [address] [place], [place] [address] Chest 1 View MR#: [id number] Acct: [id number] Name: JAYDA OSHEA Rep #: [id number] : 1985 F 39 From: Lyndon Hammond MD PCP: Care Physician,No Primary Status: REG ER Study:Chest 1 View Date of Exam: 5 Exam# [id number] Ordering Dr: Domenico Silva DO PROCEDURE: CHEST 1 VIEW 10/30/2024 REASON FOR EXAM: NEURO DEFICIT, ACUTE, STROKE SUSPECTED TECHNIQUE: Frontal view of the chest. COMPARISON: 11/27/2023 FINDINGS: Lungs/Pleura: Clear. Heart/Mediastinum: Normal in size. Bones/Soft tissues: Within normal limits. RAD/Chest 1 View IMPRESSION: No acute cardiopulmonary disease. Reading Location: [id number] CC: Dr. Domenico Silva DO; No Primary Care Physician ~ Pastoral Worker: Signed [facility]07-30-2025 Radiology Diagnostic study note [facility] Imaging Services [address] [place], [place] [address] STROKE CTA Head AND Neck W/Con MR#: [id number] Acct: [id number] Name: JAYDA OSHEA Maritza Rep #: [id number] : 1985 F 39 From: Taylor De Jesus MD PCP: Care Physician,No Primary Status: REG ER Study:STROKE CTA Head AND Neck W/Con Date of Exam: 10/30/24 Exam# [id number] Ordering Dr: Domenico Silva DO PROCEDURE: STROKE [...] the tip of the basilar. 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 There isno large vessel occlusion. There is no enhancing intracranial mass. Shotty cervical lymph nodes are identified. The thyroid gland is heterogeneous. The lung apices demonstrate no pneumothorax. No destructive osseous abnormalities identified. CT/STROKE CTA Head AND Neck W/Con IMPRESSION: No acute large vessel occlusion. No high grade stenosis. Reading Location: [facility] CC: Dr. Domenico Silva DO; No Primary Care Physician ~ Pastoral Worker: Signed [facility]07-30-2025 Radiology Diagnostic study note [facility] Imaging Services [address] [place], [place] [address] STROKE Brain/Head without Cont MR#: [id number] Acct: [id number] Name: JAYDA OSHEA Rep #: [id number] : 1985 F 39 From: Taylor De Jesus MD PCP: Care Physician,No Primary Status: REG ER Study:STROKE Brain/Head without Cont Date of Exam: 10/30/24 Exam# [id number] Ordering Dr: Domenico Silva DO PROCEDURE: STROKE [...] 9:01 pm EST on 10/30/24. Reading Location: [facility] CC: Dr. Domenico Silva, DO; No Primary Care Physician ~ Pastoral Worker: Signed [facility]05-19-2025 Evaluation note* Diagnosis Onset Date Resolution Status [...] 30, 2024 11:35pm Hypertension chronic October 30, 11:35pm [facility] Work Phone: 1(662) 499-179805-19-2025 Evaluation note* Diagnosis Onset Date Resolution Status [...] October 30, 2024 11:35pm Hypertension chronic October 30 025 11:35pm [facility] Work Phone: 1(373) 887-873805-19-2025 Evaluation note* Diagnosis Onset Date Resolution Status Admit Date Contusion of right great toe without damage to nail acute August 19, 2024 10:40am Strain of great toe, right acute August 19, 2024 10:40am Acute left-sided weakness acute October 30, 2024 11:35pm Ischemic cerebrovascular accident (CVA) acute October 30, 2024 11:35pm Overweight (BMI 25.0-29.9) acute October 30, 2024 11:35pm Polycythemia acute October 30, 025 11:35pm ADHD chronic October 30 11:35pm Hypertension chronic October 30, 025 11:35pm Migraine headache chronic October 302024 11:35pm Tobacco abuse chronic October 30, 2024 11:35pm Allergic rhinitis acute November 01, 2024 3:18pm Chest pain acute November 01 3:18pm Debility acute November 01 3:18pm Left hemiplegia acute November 3:18pm Polycythemia acute November 01, 2024 3:18pm Stroke acute November 01 3:18pm ADHD chronic November 01 3:18pm Essential (primary) hypertension chr onic November 01, 2024 3:18pm Migraine headache chronic November 01, 2024 3:18pm Tobacco abuse chronic November 01, 2024 3:18pm [facility] Work Phone: [phone]) 756-521305-19-2025 Evaluation note* Diagnosis Onset Date Resolution Status Admit Date Contusion of right great toe without damage to nail acute August 19, 2024 10:40am Strain of great toe, right acute August 19, 2024 10:40am Acute left-sided weakness acute October 30, 2024 11:35pm Ischemic cerebrovascular accident (CVA) acute October 30, 2024 11:35pm ADHD chronic October 30 11:35pm Hypertension chronic October 30, 11:35pm Migraine headache chronic October 302024 11:35pm Tobacco abuse chronic October 30, 2024 11:35pm Polycythemia inactive October 30, 025 11:35pm Overweight (BMI 25.0-29.9) deleted October 30, 2024 11:35pm Allergic rhinitis acute November 01, 2024 3:18pm Chest pain acute November 01 3:18pm Debility acute November 01 3:18pm Ischemic cerebrovascular accident (CVA) acute November 01, 2024 3:18pm Left hemiplegia acute November 3:18pm Stroke acute November 01 3:18pm ADHD chronic November 01 3:18pm Essential (primary) hypertension chr onic November 01, 2024 3:18pm Migraine headache chronic November 01, 2024 3:18pm Tobacco abuse chronic November 01, 2024 3:18pm Polycythemia inactive November 01, 2024 3:18pm Chest pain acute November 04 1:09pm Ischemic cerebrovascular accident (CVA) acute November 04, 2024 1:09pm V-tach acute November 04 1:09pm Essential (primary) hypertension chr onic November 04, 2024 1:09pm Polycythemia inactive November 04, 2024 1:09pm [facility] Work Phone: 1(143) 932-685708-26-2024 NoteHNO ID: [id number] Author: VONNIE DICKERSON APRN.MARY Service: ? Author Type: Nurse Practitioner Type: Progress Notes Filed: 11/27/2023 11:37 Note Text: Patient triaged at [facility]. Here today with sob, left arm pain, elevated bp. Bp 190/110. I will refer to ER. Patient declines squad. Patient in no visible distress at time of triage.[facility]08-26-2024 History of Present illness Narrative* Vonnie Dickerson APRN.CNP - 11/27/2023 11:35 AM EDT Patient triaged at [facility]. Here today with sob, left arm pain, elevated bp. Bp 190/110. I will refer to ER. Patient declines squad. Patient in no visible distress at time of triage. [facility] Author Vee Stuart [facility] Note Date/Time November 01, 2024 2:3 0pm [facility] [facility] Medical Records Department [address] [place] [address] Instructions for Home/Discharge Instructions 11/01/24 1422 MR#: [id number] Acct: [id number] Name: JAYDA OSHEA Rep #:[id number] : 1985 39 From: Vee Stuart MD PCP: Care Physician,No Primary Status :ADM IN Discharge Instructions DC O2, CPAP, BIPAP needs Home O2 Discharge instructions: No Dressing / Incision Discharge Activity: - (Discharging to [facility] rehab) Follow Up Care Test Results: Test [...] Recorder Preventi (Urgent) Timeframe: 1 Day Facility: [facility] - Location: Cardiovascular Services Ordered By: Dr. [...] Inpatient Rehab Unit/Facility 11/01/24 1430<Electronically signed by eVe Stuart MD>Vee Stuart MD CC: Lydia Orantes; Sherry Lugo; Ajay Johnson; Renee Cleveland MD; Sheeba Rodriguez MD; David Gale MD; Dr. Ehsan Uriarte MD; Dr. Nehemiah Haney DO; Dr. Kyle Ghosh MD; Dr. Leidy Mckinnon MD; Dr. Tong Rai MD; Dr. Reagan White MD;Dr. Juaquin Campos MD; Dr. Aaron Chavez DO; Dr. Hemanth eRyna MD; Dr.Mohamed Arnulfo MD; Dr. Sen Clarke MD; Dr. Melissa Haywood MD; Dr. Sandra MD; Dr. Meme Pepe MD; Shakira Anthony DO; No Primary Care Physician; Mark Garcias MD ~ Signed [facility] Work Phone: Discharge summary Author Lois Ch[facility]o [facility] Note Date/Time November 04, 2024 11: 28am [facility] Medical Records Department [address] [place] [address] Discharge Summary 11/04/24 1032 MR#: [id number] Acct: [id number] Name: JAYDA OSHEA Rep #:[id number] : 1985 39 From: Lois Domingo DO PCP: Care Physician,No Primary Status :ADM IN Location: [id number] Providers Date of Admission: 11/01/24 Date of Discharge: 11/04/24 Primary Care Physician: Felicita Primary Care Phys Consultations 11/04/24 10:09 Consult: Cardiology Routine Consulting Provider: Ventura Avilez Reason for Consult: chest pain with abnormal EKG EMERGENT Consult: Yes MD Notified: Yes Date Notified: 11/04/24 Time Notified: 10:09 Method of Notification: Text 11/04/24 10:12 Consult: Oncology/Hematology Routine Consulting Provider: Shaun Del Angel Reason for Consult: polycythemia with CVA EMERGENT Consult: Yes MD Notified: Yes Date Notified: 11/04/24 Time Notified: 10:12 Method of Notification: Text Reason For Visit: STROKE Diagnosis Discharge Diagnosis (1) Chest pain: Status: Acute Code(s): R07.9 - Chest pain, unspecified Qualifiers: Chest pain type: chest pain due to myocardial ischemia Ischemic chest pain type: unstable angina pectoris Qualified Code(s): I20.0 - Unstable angina (2) Debility: Status: Acute Code(s): R53.81 - Other malaise (3) Stroke: Status: Acute Code(s): I63.9 - Cerebral infarction, unspecified Qualifiers: CVA mechanism: unspecified Qualified Code(s): I63.9 - Cerebral infarction, unspecified (4) Left hemiplegia: Status: Acute Code(s): G81.94 - Hemiplegia, unspecified affecting left nondominant side (5) Polycythemia: Status: Acute Code(s): D75.1 - Secondary polycythemia (6) Essential (primary) hypertension: Status: Chronic Code(s): I10 - Essential (primary) hypertension (7) Tobacco abuse: Status: Chronic Code(s): Z72.0 - Tobacco use Plan: Vaping every day (8) ADHD: Status: Chronic Code(s): F90.9 - Attention-deficit hyperactivity disorder, unspecified type Qualifiers: Attention deficit-hyperactivity disorder type: unspecified Qualified Code(s): F90.9 - Attention-deficit hyperactivity disorder, unspecified type Plan: Taking dextroamphetamine/amphetamine 30 mg twice daily chronically. (9) Allergic rhinitis: Status: Acute Code(s): J30.9 - Allergic rhinitis, unspecified Qualifiers: Allergic rhinitis seasonality: unspecified Allergic rhinitis trigger: unspecified Qualified Code(s): J30.9 - Allergic rhinitis, unspecified (10) Migraine headache: Status: Chronic Code(s): G43.909 - Migraine, unspecified, not intractable, without status migrainosus Qualifiers: Intractability: not intractable Migraine type: unspecified Status migrainosus presence: without status migrainosus Qualified Code(s): G43.909 - Migraine, unspecified, not intractable, without status migrainosus Medications at Discharge Home Medications loratadine 10 mg tablet (Claritin) 10 mg PO DAILY PRN PRN Allergies 01/25/18 dexamethasone sodium phosphate 0.1 % eye drops 1 drp ophthalmic (eye) 4X/DAY eyeinflamattion 10/30/24 dextroamphetamine-amphetamine 30 mg tablet 1 tab [...] PO DAILY blood pressure #0 tabs 11/01/24 Physical Exam Const Constitutional Narrative: She is drowsy and c/o feeling very tired. She arouses easily and is able to stay awake to converse with me. General Appearance: cooperative HEENT HEENT Narrative: Mucous membranes are very dry Eyes PERRL, EOMs intact bilaterally, conjunctivae normal and no scleral icterus Eyes Narrative: No discharge from the eyes Resp normal respiratory effort, normal air movement and clear to auscultation bilaterally Resp Narrative: Diminished in the bases, suspect secondary to poor inspiratory effort. Effort and Inspection: able to speak in complete sentences Cardio regular rate, regular rhythm, S1 normal heart sound, S2 normal heart sound, no murmurs, no rub and no gallops GI normal to inspection, nondistended, normoactive bowel sounds, soft to palpation and non-tender GI Narrative: No guarding with palpation. no CVA tenderness Narrative: She came to us with a Smith catheter in place secondary to urinary retention. Bladder / Kidney Exam: catheter in place Extremity no calf tenderness and no pedal edema Skin General Skin Exam: no breakdown Rashes: no rashes Neuro Neuro Narrative: She has weakness of the entire left face. Positive left facial droop, weakness of the periorbital muscles on the left and inability to furrow her brow. Shoulder shrug on the left is very weak. Mucous membranes are very dry. Tongueprotrudes on the midline. Mild dysarthria. She has no movement in the left upper extremity or the left lower extremity. No extinction. No visual field cuts. Psych cooperative Psych Narrative: Flat affect. Anxious. Appearance: appropriate Activity / Motor Behavior: appropriate eye contact Weight / BMI Weight Weight: 163 lb 2.273 oz Body Mass Index (BMI) 28.0 ABG / Lab / Microbiology Data 11/04/24 05:27 11/03/24 06:38 Laboratory: Laboratory Results - last 24 hr 11/04/24 05:27: WBC 12.1 H, RBC 5.93 H, Hgb 17.7 H, Hct 54.0 H, MCV 91.1, MCH 29.8, MCHC 32.8, RDW Std Deviation 43.2, RDW Coeff of Maria Teresa 12.8, Plt Count 377, MPV 10.2, Immature Gran % (Auto) 0.200, Neut % (Auto) 65.7, Lymph % (Auto) 24.9,[place] % (Auto) 8.2, Eos % (Auto) 0.6, Baso % (Auto) 0.4, Absolute Neuts (auto) 7.9 H, Absolute Lymphs (auto) 3.01, Nucleated RBC % 0 11/04/24 09:40: Troponin T High Sens Cancelled Indicators for Scoring Admitted with or Primary Diagnosis of CVA/Stroke: Yes Hx of CVA/Stroke: No Modified Pleasants Score MRS Score at time of Evaluation: 5-Severe disability NIHSS NIHSS 1a. Level of Consciousness: 1 - Not alert; Arousable by minor stimuli to obey, answer & respond 1b. LOC Questions: 1 - Answers ONE question correctly 1c. LOC Commands: 0 - Performs BOTH tasks correctly 2. Best Gaze: 0 - Normal 3. Visual: 0 - No visual loss 4. Facial Palsy: 3 - Complete paralysis of one or both sides 5a. Left Arm: 0 - No drift; arm holds 90 (or 45) degrees for full 10 seconds 5b. Right Arm: 0 - No drift; arm holds 90 (or 45) degrees for full 10 seconds 6a. Left Le - No movement 6b. Right Le - No drift; leg holds 30-degree position for full 5 seconds 7. Limb Ataxia: 0 - Absent (Cannot be tested due to no movement of the left side. She has no ataxia on the right side.) 8. Sensory: 1 - Auyr-vb-helyzssg sensory loss; 9. Best Language: 0 - No aphasia; normal 10. Dysarthria: 1 = Dcvh-wc-yefcavoi dysarthria; 11. Extinction and Inattention: 0 - No abnormality Total: 11 Stroke Questions Stroke Team Activated: No D/C Instructions Diet Diet Order/Speech Therapy: INPATIENT Hospital Diet / Speech Therapy Order(s) 11/01/24 15:46 Diet: Cardiac - Heart Healthy Discharge order: Continue INPATIENT Hospital Diet / Speech Therapy Orders: Yes DC O2, CPAP, BIPAP Needs RN Home O2 qualification: 2 No Data to Display Home O2 Discharge instructions: No Meaningful Use Info Meaningful Use Meaningful Use Diagnoses (Choose all that apply): Ischemic CVA CVA Therapy Assessed for PT,OT and/or ST?: Yes Ischemic Stroke Antithrombotic order at d/c?: Yes Dx of Atrial fib/flutter?: No Anticoagulant at discharge?: No Reason anticoagulant not ordered: Treatment not Indicated Statin Dosing Therapy Reference: STATIN DOSE THERAPY REFERENCE: * Patients > 75 years receive moderate or high dose statin therapy. * Patients 75 years or YOUNGER should receive HIGH intensity statin dose unless contraindicated. You will be required to document reason for non-treatment if statin daily dose does not meet guidelines. HIGH DOSE STATIN THERAPY DAILY Atorvastatin > than or = to 40 mg Rosuvastatin > than or = to 20 mg Amlodipine + Atorvastatin > than or = to 2.5/40 mg Ezetimibe + Simvastatin 10/80 mg Simvastatin 80mg Statins at discharge?: Yes If patient is 75 or younger, pt will be discharged on HIGH intensity statin.: Yes Primary Dx Acute Ischemic CVA?: Yes IV thrombolytic ordered during stay?: No Reason IV thrombolytic not ordered: Procedure not Indicated Discharge Plan Admission Admit Date/Time: 11/01/24 15:18 Attending Provider: Kaleb Horta Primary Care Provider: Care Physician,Felicita Primary Consulting Providers: Lori Hay; Kanwal Rodríguez; Eulalia Carpio; Susan Salas; Maurilio Rivera; Pedro Hong; Law Eduardo; Nehemiah Horton; Pratima Arrieta; Chevy Gann; Abigail Guerrero; Ellis Jerome; Nghia Hdez; Jarred Garg NP; Danielle Ferro; Omer Naranjo; Shaun Del Angel; Luis Ravi Chi Discharge Orders/Prescriptions Prescriptions: No Action loratadine [Claritin] 10 MG tablet 10 mg PO DAILY PRN PRN (Reason: Allergies) dexamethasone sodium phosphate 0.1 % drops 1 drp ophthalmic (eye) 4X/DAY dextroamphetamine-amphetamine 30 mg tablet 1 tab PO BID erythromycin 5 mg/gram (0.5 %) ointment 1 applic ophthalmic (eye) QHS cyclobenzaprine 10 mg Tablet 10 mg PO TID PRN PRN (Reason: Muscle Spasm) Qty: 0 0RF atorvastatin 80 mg Tablet 80 mg PO QHS Qty: 0 0RF lisinopril 10 mg Tablet 10 mg PO DAILY Qty: 0 0RF hydrochlorothiazide 12.5 mg Capsule 12.5 mg PO DAILY Qty: 0 0RF aspirin 81 mg Tablet,Chewable 81 mg PO DAILYCM Qty: 0 0RF Referrals / Follow Up: Care Physician,No Primary [Primary Care Provider] - Charges/Coding Visit Charges Inpatient E&M: 14173 Disch Hosp >30min Hospital Course RU Procedures Transesophageal Echo Summary of Care Provided Minutes Spent on Discharge: 55 Hospital Course: Patient is a 39-year-old female who presented to the emergency department at [facility] on 10/30/2024 complaining of left arm weakness, left leg weakness and slurred speech. Hemoglobin at admission was 18.5 and lab was not consistent with dehydration. Urine drug screen at admission was positive for amphetamine and cannabinoids. CT brain showed a left frontal lacunar infarct. CTA of the head and neck was negative for large vessel occlusion, high-grade stenosis and aneurysm. She was not a candidate for TNK due to time. She was admitted to the hospitalist service. MRI showed a large area of restricted diffusion in the right frontal and superior parietal precentral cortex and superior periventricular region measuring 9 cm x 3 cm x 4.6 cm with associated increased T2 signal and decreased T1 signal components. This was consistent with a subacute infarct. There was a 0.6 cm focus of restricted diffusion in the left superior precentral cortex which appeared acute. There was an old 0.8 cm lacunar infarct in the deep white matter on the left. Transesophageal echo showed normal left ventricular size with an ejectionfraction of 60%. Bubble contrast study was negative for torpy-if-joqu interatrial shunt and no thrombus was detected in the left atrial appendage. She was seen by neurology and they recommended aspirin 81 mg daily and atorvastatin 80 mg daily. She was instructed to stop vaping. Blood Pressures have been quite elevated at times and she is quite anxious. She had been taking dextroamphetamine/amphetamine 30 mg twice daily for ADD. She was transferred to the acute inpt rehab unit at [facility] on 11/01/24 for 3 hours of therapydaily to restore function, independence at or near her level prior to admission to the hospital. On 11/04/24 she c/o chest tightness associated with SOB. An EKG was checked and she had inferolateral ST and T wave changes that were new when compared to an EKG done at admission to the hospital. She was given a SL NTG and the pain resolved. Repeat EKG after NTG continued to show inferolateral ST and T wave changes. HGB on 11/03/24 was 91.2 but on 11/04 it was 17.7 following hydration. She was given a 500 cc bolus of NS and the IV rate was increased to 125 cc/hr. hemoglobin at admission to the hospital was 18.5 with a BUN of 13 and a creatinine of 0.8. The first troponin is elevated at 26. She was seen by Dr. Eduardo from cardiology who recommended adding [id number] mg p.o. twice daily. She is going to be transferred to the acute side of thehospital to the progressive care unit for NSTEMI with unstable angina. Dr. Mata is the admitting hospitalist. Dr. Del Angel was consulted for polycythemia. I ordered a Erythropoietin level prior to DC from rehab. She denies any hx of CP, VTE. She has migraines. Amphetamines have been discontinued and also HCTZ. I notified her aunt, Gloria Meehan, who is the primary contact listed of the change in her condition and transfer to PCU. I answered her questions. 11/04/24 1128 <Electronically signed by Lois Domingo DO> Cosigner Signature (if applicable): CC: Dr. Lois Domingo, DO; No Primary Care Physician~ Signed [facility] Work Phone: Evaluation note* Diagnosis Chest pressure- Primary Other chest pain [facility] this [facility] noteNo assessment information availableArrowhead [facility] Work Phone: Hospital Discharge instructionsAdditional Instructions DISCHARGE [...] 911 or proceed [facility] the [facility] Work Phone: Hospital Discharge instructionsAdditional Instructions Date [facility]: [facility]24[facility]: Reason for referral (narrative)No reason for referral information availableOrthoindy [facility] Services Work Phone: Summary Purpose Family History Relationship Condition Age at Onset Recorded Date/T nay mother Hypertension Unknown Depression Unknown Anxiety Unknown Posttraumatic stress disorder Unknown Advance Directives Advance Directive Response Recorded Date/ Time Do you have a Healthcare Power of Paper Sorter And Counter? No October 30, 2024 9:22pm Advance Directive Response Recorded Date/ Time Do you have a Healthcare Power of Paper Sorter And Counter? No October 31, 2024 12:41am Advance Directive Response Recorded Date/ Time Do you have a Healthcare Power of Paper Sorter And Counter? No October 31, 2024 12:41am Do you have a Healthcare Power of Paper Sorter And Counter? No November 01, 2024 4:45pm Advance Directive Response Recorded Date/ Time Do you have a Healthcare Power of Paper Sorter And Counter? No October 31, 2024 12:41am Do you have a Healthcare Power of Paper Sorter And Counter? No November 04, 2024 6:02pm Do you have a Healthcare Power of Paper Sorter And Counter? No November 01, 2024 4:45pm Chief Complaint and Reason for Visit Chief Complaint Admit Date R FOOT INJURY August 19, 2024 10:40 am pain- RIGHT FOOT August 19, 2024 10:57 am Chief Complaint Admit Date R FOOT INJURY August 19, 2024 10:40 am pain- RIGHT FOOT August 19, 2024 10:57 am ISCHEMIC CVA WITH LEFT SIDED WEAKNESS Ju 2024 11:35pm Reason for Visit Admit Date [...] 5pm Hypertension October 30, 2024 11:3 5pm Chief Complaint Admit Date R FOOT INJURY August 19, 2024 10:40 am pain- RIGHT FOOT August 19, 2024 10:57 am ISCHEMIC CVA WITH LEFT SIDED WEAKNESS Ju ly 2024 11:35pm ISCHEMIC CVA WITH LEFT SIDED WEAKNESS Ju ly 2024 9:38am ISCHEMIC CVA WITH LEFT SIDED WEAKNESS Au angie 2024 2:30pm STROKE November 01, 2024 3:1 8pm STROKE November 04, 2024 10: 32am Reason for Visit Admit Date Contusion of right great toe without dam age to nail August 19, 2024 10:40am Strain of great toe, right August 19 10:40am Acute left-sided weakness October 30 11:35pm Ischemic cerebrovascular accident (CVA) October 30, 2024 11:35pm Overweight (BMI 25.0-29.9) October 30 11:35pm Polycythemia October 30, 2024 11:3 5pm ADHD October 30, 2024 11:3 5pm Hypertension October 30, 2024 11:3 5pm Migraine headache October 30, 2024 11:3 5pm Tobacco abuse October 30, 2024 11:3 5pm Allergic rhinitis November 01, 2024 3:1 8pm Chest pain November 01, 2024 3:1 8pm Debility November 01, 2024 3:1 8pm Left hemiplegia November 01, 2024 3:1 8pm Polycythemia November 01, 2024 3:1 8pm Stroke November 01, 2024 3:1 8pm ADHD November 01, 2024 3:1 8pm Essential (primary) hypertension November 01, 2024 3:18pm Migraine headache November 01, 2024 3:1 8pm Tobacco abuse November 01, 2024 3:1 8pm Chief Complaint Admit Date R FOOT INJURY August 19, 2024 10:40 am pain- RIGHT FOOT August 19, 2024 10:57 am ISCHEMIC CVA WITH LEFT SIDED WEAKNESS Ju ly 2024 11:35pm ISCHEMIC CVA WITH LEFT SIDED WEAKNESS Ju ly 2024 9:38am ISCHEMIC CVA WITH LEFT SIDED WEAKNESS Au 2024 2:30pm STROKE November 01, 2024 3:1 8pm STROKE November 04, 2024 10: 32am STROKE November 04, 2024 11: 41am CHEST PAIN, RECENT CVA November 04, 2024 1:09pm UNKNOWN DIAGNOSIS November 04, 2024 5:4 6pm UNKNOWN DIAGNOSIS November 05, 2024 11: 17am UNKNOWN DIAGNOSIS November 06, 2024 5:4 6am UNKNOWN DIAGNOSIS November 06, 2024 7:3 3am CHEST PAIN, RECENT CVA November 07, 2024 10:06am CHEST PAIN, RECENT CVA November 08, 2024 7:51am CHEST PAIN, RECENT CVA November 09, 2024 7:29am CHEST PAIN, RECENT CVA November 10, 2024 8:33am Reason for Visit Admit Date Contusion of right great toe without dam age to nail August 19, 2024 10:40am Strain of great toe, right August 19 10:40am Acute left-sided weakness October 30 11:35pm Ischemic cerebrovascular accident (CVA) October 30, 2024 11:35pm ADHD October 30, 2024 11:3 5pm Hypertension October 30, 2024 11:3 5pm Migraine headache October 30, 2024 11:3 5pm Tobacco abuse October 30, 2024 11:3 5pm Polycythemia October 30, 2024 11:3 5pm Overweight (BMI 25.0-29.9) October 30 11:35pm Allergic rhinitis November 01, 2024 3:1 8pm Chest pain November 01, 2024 3:1 8pm Debility November 01, 2024 3:1 8pm Ischemic cerebrovascular accident (CVA) November 01, 2024 3:18pm Left hemiplegia November 01, 2024 3:1 8pm Stroke November 01, 2024 3:1 8pm ADHD November 01, 2024 3:1 8pm Essential (primary) hypertension November 01, 2024 3:18pm Migraine headache November 01, 2024 3:1 8pm Tobacco abuse November 01, 2024 3:1 8pm Polycythemia November 01, 2024 3:1 8pm Chest pain November 04, 2024 1:0 9pm Ischemic cerebrovascular accident (CVA) November 04, 2024 1:09pm V-tach November 04, 2024 1:0 9pm Essential (primary) hypertension November 04, 2024 1:09pm Polycythemia November 04, 2024 1:0 9pm Additional Source Comments Source Comments (unrecognize d section and content) In the event this informatio n is protected by the Federal Confidentiality of Alcohol and Drug Abuse Patient Records regulations: The Federal rules restrict any use of the information to criminally investigate or prosecute any alcohol or drug abuse patient.[facility] Reason for Visit (unrecogniz ed section and content) Reason Comments Shortness of Breath INFORMATION SOURCE (unrecogn ized section and content) DATE CREATED AUTHOR 11/28/2023 [facility] DATE CREATED AUTHOR AUTHOR'S ROHINI ATION 11/08/2024 [facility] y Hospital Care Teams (unrecognized sec tion [...] Attending Provider Active Start: August 19, 2024 Yefri PIERCE PA Referring [...] 2024 End: August 19, 2024 STAN Tai Referring Provider Active Start: August 19, 2024 End: August 19, 2024 Team Status: Active Member Role/Relationship Status Dates No Primary Care Physician Primary Care Provider Active Start: October 30, 2024 Dr. Domenico Silva DO Emergency Provider Active Start: October 30, 2024 Dr. Nehemiah Haney DO Admit Provider Active Start: October 30, 2024 Dr. Nehemiah Haney DO Attending Provider Active Start: October 30, 2024 [...] Start: October 31, 2024 Dr. Domenico Silva , DO Emergency Provider Active Start: October 31, 2024 Dr. Nehemiah Haney , DO Admit Provider Active Start: October 31, 2024 Dr. Nehemiah Haney , Other Provider Active Start: October 31, 2024 David Gale MD Other Provider Active Start: Ju 2024 Dr. Ehsan Uriarte MD Other Provider [...] Provider Active S tart: October 31, 2024 Team Status: Active Member Role/Relationship Status Dates No Primary Care Physician Primary Care Provider Active Start: November 01, 2024 Dr. Law Eduardo MD Attending Provider Active S tart: November 01, 2024 Team Status: Active Member Role/Relationship Status Dates No Primary Care Physician Primary Care Provider Active Start: November 01, 2024 Dr. Domenico Silva , Emergency Provider Active Start: November 01, 2024 Dr. Nehemiah Haney DO Admit Provider Active Start: November 01, 2024 Dr. Nehemiah Haney DO Other Provider Active Start: November 01, 2024 David Gale MD Other Provider Active Start: 2024 Dr. Ehsan Uriarte MD Other Provider Active Start: November 01, 2024 Sheeba Rodriguez MD Other Provider Active Start : November 01, 2024 Dr. Lydia Orantes DO Other Provider Active St art: November 01, 2024 Dr. Renee Cleveland MD Other Provider Active Start: November 01, 2024 Dr. Kyle Ghosh MD Other Provider Active Sta rt: November 01, 2024 Dr. Leidy Mckinnon MD Other Provider Active Start : November 01, 2024 Dr. Reagan White MD Other Provider Active Start: November 01, 2024 Dr. Tong Rai MD Other Provider Active Start : November 01, 2024 Dr. Juaquin Campos MD Other Provider Active Sta rt: November 01, 2024 Shakira Anthony MD Other Provider Active Start : November 01, 2024 Dr. Aaron Chavez MD Other Provider Active St art: November 01, 2024 Dr. Sherry Lugo MD Other Provider Active Start : November 01, 2024 Dr. Natalya Arredondo MD Other Provider Active Sta rt: November 01, 2024 Dr. Hemanth Reyna MD Other Provider Active Start: November 01, 2024 Dr. Ajay Johnson MD Other Provider Active St art: November 01, 2024 Dr. Melissa Haywood MD Other Provider Active Star t: November 01, 2024 Dr. Isac Levi MD Other Provider Active St art: November 01, 2024 Dr. Meme Pepe MD Other Provider Active Start: November 01, 2024 Mark Garcias MD Other Provider Active Start: November 01, 2024 Dr. Vee Stuart MD Attending Provider Active Start: November 01, 2024 Dr. Vee Stuart MD Other Provider Active Star t: November 01, 2024 Dr. Sen Clarke MD Other Provider Active Start: November 01, 2024 Team Status: Inactive Member Role/Relationship Status Dates No Primary Care Physician Primary Care Provider Active Start: November 01, 2024 End: November 04, 2024 Dr. Luis Ravi MD Admit Provider Active Star t: November 01, 2024 End: November 04, 2024 Dr. Luis Ravi MD Other Provider Active Star t: November 01, 2024 End: November 04, 2024 Dr. Lori Hay MD Other Provider Active Start: November 01, 2024 End: November 04, 2024 Dr. Kanwal Rodríguez MD Other Provider Active Start : November 01, 2024 End: November 04, 2024 Dr. Eulalia Carpio MD Other Provider Active St art: November 01, 2024 End: November 04, 2024 Dr. Susan Salas MD Other Provider Active Star t: November 01, 2024 End: November 04, 2024 Dr. Maurilio Rivera MD Other Provider Active Sta rt: November 01, 2024 End: November 04, 2024 Dr. Pedro Hong MD Other Provider Active Star t: November 01, 2024 End: November 04, 2024 Dr. Law Eduardo MD Other Provider Active Start : November 01, 2024 End: November 04, 2024 Dr. Jhon Wells , DO Other Provider Active Sta rt: November 01, 2024 End: November 04, 2024 Dr. Pratima Arrieta MD Other Provider Active Star t: November 01, 2024 End: November 04, 2024 Dr. Chevy Gann MD Other Provider Active St art: November 01, 2024 End: November 04, 2024 Dr. Abigail Guerrero MD Other Provider Active Start: November 01, 2024 End: November 04, 2024 Dr. Ellis Jerome MD Other Provider Active S tart: November 01, 2024 End: November 04, 2024 Dr. Nghia Hdez MD Other Provider Active Start: November 01, 2024 End: November 04, 2024 Jarred Garg [employer], PROOFER [employer]-C Other Provider Active Start : November 01, 2024 End: November 04, 2024 Danielle Ferro PA, PA Other Provider Active Start: November 01, 2024 End: November 04, 2024 STAN Baker Other Provider Active Start: November 01, 2024 End: November 04, 2024 Dr. Shaun Del Angel MD Other Provider Active Start : November 01, 2024 End: November 04, 2024 Dr. Lois Domingo DO Attending Provider Act brie Start: November 01, 2024 End: November 04, 2024 Dr. Kaleb Horta DO Other Provider Active Start: November 01, 2024 End: November 04, 2024 Team Status: Active Member Role/Relationship Status Dates No Primary Care Physician Primary Care Provider Active Start: November 04, 2024 Dr. Luis Ravi MD Admit Provider Active Star t: November 04, 2024 Dr. Luis Ravi MD Other Provider Active Star t: November 04, 2024 Dr. Lori Hay MD Other Provider Active Start: November 04, 2024 Dr. Kanwal Rodríguez MD Other Provider Active Start : November 04, 2024 Dr. Eulalia Carpio MD Other Provider Active St art: November 04, 2024 Dr. Susan Salas MD Other Provider Active Star t: November 04, 2024 Dr. Maurilio Rivera MD Other Provider Active Sta rt: November 04, 2024 Dr. Pedro Hong MD Other Provider Active Star t: November 04, 2024 Dr. Law Eduardo MD Other Provider Active Start : November 04, 2024 Dr. Nehemiah Horton DO Other Provider Active Sta rt: November 04, 2024 Dr. Pratima Arrieta MD Other Provider Active Star t: November 04, 2024 Dr. Chevy Gann MD Other Provider Active St art: November 04, 2024 Dr. Abigail Guerrero MD Other Provider Active Start: November 04, 2024 Dr. Ellis Jerome MD Other Provider Active S tart: November 04, 2024 Dr. Nghia Hdez MD Other Provider Active Start: November 04, 2024 Jarred Garg [employer], PROOFER [employer]-C Other Provider Active Start : November 04, 2024 Danielle Ferro PA, PA Other Provider Active Start: November 04, 2024 STAN Baker Other Provider Active Start: November 04, 2024 Dr. Shaun Del Angel MD Other Provider Active Start : November 04, 2024 Dr. Kaleb Horta DO Other Provider Active Start: November 04, 2024 Dr. Lois Domingo DO Attending Provider Act brie Start: November 04, 2024 Team Status: Active Member Role/Relationship Status Dates No Primary Care Physician Primary Care Provider Active Start: November 04, 2024 Dr. Luis Ravi MD Admit Provider Active Star t: November 04, 2024 Dr. Luis Ravi MD Other Provider Active Star t: November 04, 2024 Dr. Lori Hay MD Other Provider Active Start: November 04, 2024 Dr. Kanwal Rodríguez MD Other Provider Active Start : November 04, 2024 Dr. Eulalia Carpio MD Other Provider Active St art: November 04, 2024 Dr. Susan Salas MD Other Provider Active Star t: November 04, 2024 Dr. Maurilio Rivera MD Other Provider Active Sta rt: November 04, 2024 Dr. Pedro Hong MD Other Provider Active Star t: November 04, 2024 Dr. Law Eduardo MD Attending Provider Active S tart: November 04, 2024 Dr. Law Eduardo MD Other Provider Active Start : November 04, 2024 Dr. Nehemiah Horton DO Other Provider Active Sta rt: November 04, 2024 Dr. Pratima Arrieta MD Other Provider Active Star t: November 04, 2024 Dr. Chevy Gann MD Other Provider Active St art: November 04, 2024 Dr. Abigail Guerrero MD Other Provider Active Start: November 04, 2024 Dr. Ellis Jerome MD Other Provider Active S tart: November 04, 2024 Dr. Nghia Hdez MD Other Provider Active Start: November 04, 2024 Jarred Garg [employer], PROOFER [employer]-C Other Provider Active Start : November 04, 2024 Daneille Ferro PA, PA Other Provider Active Start: November 04, 2024 STAN Baker Other Provider Active Start: November 04, 2024 Dr. Shaun Del Angel MD Other Provider Active Start : November 04, 2024 Dr. Lois Domingo DO Other Provider Active Start: November 04, 2024 Dr. Kaleb Horta DO Other Provider Active Start: November 04, 2024 Team Status: Inactive Member Role/Relationship Status Dates No Primary Care Physician Primary Care Provider Active Start: November 04, 2024 End: November 10, 2024 Dr. Kaleb Horta DO Admit Provider Active Start: November 04, 2024 End: November 10, 2024 Dr. Kaleb Horta DO Referring Provider Active Start: November 04, 2024 End: November 10, 2024 Dr. Kaleb Horta DO Other Provider Active Start: November 04, 2024 End: November 10, 2024 Dr. Nehemiah Ugarte MD Other Provider Active Start: November 04, 2024 End: November 10, 2024 Dr. Shaun Del Angel MD Other Provider Active Start : November 04, 2024 End: November 10, 2024 Dr. Trae Washington MD Other Provider Active Star t: November 04, 2024 End: November 10, 2024 Dr. Ann Andrews MD Other Provider Active Start: November 04, 2024 End: November 10, 2024 Dr. Chase Mccauley MD Other Provider Active Star t: November 04, 2024 End: November 10, 2024 Dr. Jonathan Pérez MD Other Provider Active Start: A 2024 End: November 10, 2024 Dr. Aaron Crooks MD Other Provider Active Sta rt: November 04, 2024 End: November 10, 2024 Dr. Aubrey Saxena DO Other Provider Active Sta rt: November 04, 2024 End: November 10, 2024 Angelica Lawson PR[employer], PROOFER PREPRESS-C Other Provider Active St art: November 04, 2024 End: November 10, 2024 Dr. Law Eduardo MD Other Provider Active Start : November 04, 2024 End: November 10, 2024 Dr. Nehemiah Hammond MD Attending Provider Active Start: November 04, 2024 End: November 10, 2024 Team Status: Active Member Role/Relationship Status Dates No Primary Care Physician Primary Care Provider Active Start: November 04, 2024 Dr. Kaleb Horta DO Admit Provider Active Start: November 04, 2024 Dr. Kaleb Horta DO Referring Provider Active Start: November 04, 2024 Dr. Kaleb Horta DO Other Provider Active Start: November 04, 2024 Dr. Nehemiah Ugarte MD Other Provider Active Start: November 04, 2024 Dr. Shaun Del Angel MD Attending Provider Active S tart: November 04, 2024 Dr. Shaun Del Angel MD Other Provider Active Start : November 04, 2024 Dr. Trae Washington MD Other Provider Active Star t: November 04, 2024 Dr. Ann Andrews MD Other Provider Active Start: November 04, 2024 Dr. Chase Mccauley MD Other Provider Active Star t: November 04, 2024 Dr. Jonathan Pérez MD Other Provider Active Start: A 2024 Dr. Aaron Crooks MD Other Provider Active Sta rt: November 04, 2024 Dr. Aubrey Saxena DO Other Provider Active Sta rt: November 04, 2024 Angelica Lawson PR[employer], PROOFER PREPRESS-C Other Provider Active St art: November 04, 2024 Dr. Law Eduardo MD Other Provider Active Start : November 04, 2024 Team Status: Active Member Role/Relationship Status Dates No Primary Care Physician Primary Care Provider Active Start: November 05, 2024 Dr. Kaleb Horta DO Admit Provider Active Start: November 05, 2024 Dr. Kaleb Horta DO Referring Provider Active Start: November 05, 2024 Dr. Kaleb Horta DO Other Provider Active Start: November 05, 2024 Dr. Nehemiah Ugarte MD Other Provider Active Start: November 05, 2024 Dr. Shaun Del Angel MD Other Provider Active Start : November 05, 2024 Dr. Trae Washington MD Other Provider Active Star t: November 05, 2024 Dr. Ann Andrews MD Other Provider Active Start: November 05, 2024 Dr. Chase Mccauley MD Other Provider Active Star t: November 05, 2024 Dr. Jonathan Pérez MD Other Provider Active Start: A ugust 2024 Dr. Aaron Crooks MD Other Provider Active Sta rt: November 05, 2024 Dr. Aubrey Saxena DO Other Provider Active Sta rt: November 05, 2024 Angelica Renny PROO[employer], PROOFER PREPRESS-C Other Provider Active St art: November 05, 2024 Dr. Law Eduardo MD Other Provider Active Start : November 05, 2024 Dr. Nehemiah Hammond MD Attending Provider Active Start: November 05, 2024 Dr. Nehemiah Hammond MD Other Provider Active Star t: November 05, 2024 Team Status: Active Member Role/Relationship Status Dates No Primary Care Physician Primary Care Provider Active Start: November 06, 2024 Dr. Kaleb Horta DO Admit Provider Active Start: November 06, 2024 Dr. Kaleb Horta DO Referring Provider Active Start: November 06, 2024 Dr. Kaleb Horta DO Other Provider Active Start: November 06, 2024 Dr. Nehemiah Ugarte MD Other Provider Active Start: November 06, 2024 Dr. Shaun Del Angel MD Other Provider Active Start : November 06, 2024 Dr. Trae Washington MD Other Provider Active Star t: November 06, 2024 Dr. Ann Andrews MD Other Provider Active Start: November 06, 2024 Dr. Chase Mccauley MD Other Provider Active Star t: November 06, 2024 Dr. Jonathan Pérez MD Other Provider Active Start: A ugust 2024 Dr. Aaron Crooks MD Other Provider Active Sta rt: November 06, 2024 Dr. Aubrey Saxena DO Other Provider Active Sta rt: November 06, 2024 Angelica Lawson PROOFER [employer], PROOFER PREPRESS-C Other Provider Active St art: November 06, 2024 Dr. Law Eduardo MD Other Provider Active Start : November 06, 2024 Dr. Nehemiah Hammond MD Other Provider Active Star t: November 06, 2024 Dr. Ximena Mccormick MD Attending Provider Active Start: November 06, 2024 Team Status: Active Member Role/Relationship Status Dates No Primary Care Physician Primary Care Provider Active Start: November 06, 2024 Dr. Kaleb Horta DO Admit Provider Active Start: November 06, 2024 Dr. Kaleb Horta DO Referring Provider Active Start: November 06, 2024 Dr. Kaleb Horta DO Other Provider Active Start: November 06, 2024 Dr. Nehemiah Ugarte MD Other Provider Active Start: November 06, 2024 Dr. Shaun Del Angel MD Other Provider Active Start : November 06, 2024 Dr. Trae Washington MD Other Provider Active Star t: November 06, 2024 Dr. Ann Andrews MD Other Provider Active Start: November 06, 2024 Dr. Chase Mccauley MD Other Provider Active Star t: November 06, 2024 Dr. Jonathan Pérez MD Other Provider Active Start: A ugust 2024 Dr. Aaron Coroks MD Other Provider Active Sta rt: November 06, 2024 Dr. Aubrey Saxena DO Other Provider Active Sta rt: November 06, 2024 Angelica Lawson PROO[employer], PROOFER PREPRESS-C Other Provider Active St art: November 06, 2024 Dr. Law Eduardo MD Attending Provider Active S tart: November 06, 2024 Dr. Law Eduardo MD Other Provider Active Start : November 06, 2024 Dr. Nehemiah Hammond MD Other Provider Active Star t: November 06, 2024 Team Status: Active Member Role/Relationship Status Dates No Primary Care Physician Primary Care Provider Active Start: November 07, 2024 Dr. Kaleb Horta DO Admit Provider Active Start: November 07, 2024 Dr. Kaleb Horta DO Referring Provider Active Start: November 07, 2024 Dr. Kaleb Horta DO Other Provider Active Start: November 07, 2024 Dr. Nehemiah Ugarte MD Other Provider Active Start: November 07, 2024 Dr. Shaun Del Angel MD Other Provider Active Start : November 07, 2024 Dr. Trae Washington MD Other Provider Active Star t: November 07, 2024 Dr. Ann Andrews MD Other Provider Active Start: November 07, 2024 Dr. Chase Mccauley MD Other Provider Active Star t: November 07, 2024 Dr. Jonathan Pérez MD Other Provider Active Start: A ugust 2024 Dr. Aaron Crooks MD Other Provider Active Sta rt: November 07, 2024 Dr. Aubrey Saxena DO Other Provider Active Sta rt: November 07, 2024 Angelica Renny PROOFER [employer]PRESS, PROOFER PREPRESS-C Other Provider Active St art: November 07, 2024 Dr. Law Eduardo MD Other Provider Active Start : November 07, 2024 Dr. Nehemiah Hammond MD Attending Provider Active Start: November 07, 2024 Dr. Nehemiah Hammond MD Other Provider Active Star t: November 07, 2024 Team Status: Active Member Role/Relationship Status Dates No Primary Care Physician Primary Care Provider Active Start: November 08, 2024 Dr. Kaleb Horta , Admit Provider Active Start: November 08, 2024 Dr. Kaleb Horta DO Referring Provider Active Start: November 08, 2024 Dr. Kaleb Horta DO Other Provider Active Start: November 08, 2024 Dr. Nehemiah Ugarte MD Other Provider Active Start: November 08, 2024 Dr. Shaun Del Angel MD Other Provider Active Start : November 08, 2024 Dr. Trae Washington MD Other Provider Active Star t: November 08, 2024 Dr. Ann Andresw MD Other Provider Active Start: November 08, 2024 Dr. Chase Mccauley MD Other Provider Active Star t: November 08, 2024 Dr. Jonathan Pérez MD Other Provider Active Start: A 2024 Dr. Aaron Crooks MD Other Provider Active Sta rt: November 08, 2024 Dr. Aubrey Saxena , Other Provider Active Sta rt: November 08, 2024 Angelica Lawson PROOFER [employer], PROOFER PREPRESS-C Other Provider Active St art: November 08, 2024 Dr. Law Eduardo MD Other Provider Active Start : November 08, 2024 Dr. Nehemiah Hammond MD Attending Provider Active Start: November 08, 2024 Dr. Nehemiah Hammond MD Other Provider Active Star t: November 08, 2024 Team Status: Active Member Role/Relationship Status Dates No Primary Care Physician Primary Care Provider Active Start: November 09, 2024 Dr. Kaleb Horta DO Admit Provider Active Start: November 09, 2024 Dr. Kaleb Horta DO Referring Provider Active Start: November 09, 2024 Dr. Kaleb Horta DO Other Provider Active Start: November 09, 2024 Dr. Nehemiah Ugarte MD Other Provider Active Start: November 09, 2024 Dr. Shaun Del Angel MD Other Provider Active Start : November 09, 2024 Dr. Trae Washington MD Other Provider Active Star t: November 09, 2024 Dr. Ann Andrews MD Other Provider Active Start: November 09, 2024 Dr. Chase Mccauley MD Other Provider Active Star t: November 09, 2024 Dr. Jonathan Pérez MD Other Provider Active Start: A ugust 2024 Dr. Aaron Crooks MD Other Provider Active Sta rt: November 09, 2024 Dr. Aubrey Saxena DO Other Provider Active Sta rt: November 09, 2024 Angelcia Lawson PROOFER PRE[employer], PROOFER PREPRESS-C Other Provider Active St art: November 09, 2024 Dr. Law Eduardo MD Other Provider Active Start : November 09, 2024 Dr. Nehemiah Hammond MD Attending Provider Active Start: November 09, 2024 Dr. Nehemiah Hammond MD Other Provider Active Star t: November 09, 2024 Team Status: Active Member Role/Relationship Status Dates No Primary Care Physician Primary Care Provider Active Start: November 10, 2024 Dr. Kaleb Horta DO Admit Provider Active Start: November 10, 2024 Dr. Kaleb Horta DO Referring Provider Active Start: November 10, 2024 Dr. Kaleb Horta DO Other Provider Active Start: November 10, 2024 Dr. Nehemiah Ugarte MD Other Provider Active Start: November 10, 2024 Dr. Shaun Del Angel MD Other Provider Active Start : November 10, 2024 Dr. Trae Washington MD Other Provider Active Star t: November 10, 2024 Dr. Ann Andrews MD Other Provider Active Start: November 10, 2024 Dr. Chase Mccauley MD Other Provider Active Star t: November 10, 2024 Dr. Jonathan Pérez MD Other Provider Active Start: A ugust 2024 Dr. Aaron Crooks MD Other Provider Active Sta rt: November 10, 2024 Dr. Aubrey Saxena DO Other Provider Active Sta rt: November 10, 2024 Angelica Lawson PROOFER PREPRESS, PROOFER PREPRESS-C Other Provider Active St art: November 10, 2024 Dr. Law Eduardo MD Other Provider Active Start : November 10, 2024 Dr. Nehemiah Hammond MD Attending Provider Active Start: November 10, 2024 Dr. Nehemiah Hammond MD Other Provider Active Star t: November 10, 2024 Goals (unrecognized section and content) Goals [...] BE BASED ON THE PRIMARY CLINICAL RECORDS. [facility] [employer] [facility]. provides no warranty or guarantee of the accuracy or completeness of information in this document.
--- OUTSIDE RECORDS SUMMARY | 2024-11-10 14:35 | XMS RPT_ITS | CCD ---
Author Organization [facility] Care Team Providers Care Department Helper Name Role Phone Unavailable Primary Care Provider Unavailabl e Care Physician, No Primary Primary Care Provider Unavailable Care Physician, No Primary Referring Provider Un available Yefri Mancera Attending Provider Yefri Mancera Referring Provider Dr. Domenico Silva DO Emergency Provider [phone] Haney DO, Dr. Cerna Admit Provider Unavail able Haney DO, Dr. Cerna Attending Provider Unav ailable Haney DO, Dr. Cerna Other Provider Unavail able David Gale MD Other Provider Unavailable Dr. Ehsan Uriarte MD Other Provider Sheeba Rodriguez MD Other Provider Unavailable Dr. Lydia Orantes DO Other Provider Dr. Renee Cleveland MD Other Provider [phone] Kyle Ghosh MD Other Provider [phone] Dr. Leidy Mckinnon MD Other Provider Dr. Reagan White MD Other Provider Dr. Tong Rai MD Other Provider Andres SCHWAB, Dr. Reza Other Provider Shakira Anthony MD Other Provider Dr. Aaron Chavez MD Other Provider [phone] Dr. Sherry Lugo MD Other Provider Arnulfo SCHWAB, Dr. Hoang Other Provider [phone] Dr. Hemanth Reyna MD Other Provider [phone] Moss Other Provider [phone] Yobany SCHWAB, Dr. Torres Other Provider Gurmeet [...] Lemuel SCHWAB, Dr. Agrawal Other Provider Forest REAL ESTATE RENTAL AGENT-C, Jarred Medina Other Provider Danielle Palm Other Provider Omer Shaver Other Provider Dr. Shaun Del Angel MD Other Provider Chayo PHILLIPS, Dr. Lois Reyez Attending Provide [...] Consulting Unavailable Vee Stuart Consulting Unavailable Jayce, Minerva Attending Unavailable Care Physician, No Primary Primary [...] Hammond Attending Unavailable Lois Domingo Attending Unavaila [facility] Care Physician, No Primary Primary Care Unava ilable Lori Hay Consulting Unavailable Trav, Luis Chi Admitting Unavailable Rick Rodríguezmamya Consulting Unavailable afchristina Eulalia Consulting Unavailable Josue Susan Consulting Unavailable Maurilio Rivera Consulting Unavailable Pedro Hong Consulting Unavailable Jayce, Law Consulting Unavailable Nehemiah Horton Consulting Unavailable Pratima Arrieta Consulting Unavailable Chevy Gann Consulting Unavailable Docanehemiah, Nagapradee Consulting Unavailabl e Satti, Ellis Consulting Unavailable Lemuel, Nghia Consulting Unavailable Roof REAL ESTATE RENTAL AGENT, Jarred Medina Consulting Unavailable Danielle Palm Consulting [...] Consulting Unavailable Pedro Hong Consulting Unavailable Jayce, Minerva Consulting Unavailable Nehemiah Horton Consulting Unavailable Pratima Arrieta Consulting Unavailable Chevy Gann Consulting Unavailable Yolanda, Nagapradee Consulting Unavailabl e Satti, Ellis Consulting Unavailable Lemuel, Nghia Consulting Unavailable Forest REAL ESTATE RENTAL AGENT, Jarred Medina Consulting Unavailable Danielle Palm Consulting Unavail able Omer Naranjo Consulting Unavailable Shaun Del Angel Consulting Unavailable Trav, Luis Chi Consulting Unavailable Kaleb Horta Consulting Unavailable Nehemiah Haney Admitting Unavailable Vee Stuart Attending Unavailable Care Physician, No Primary Primary Care Unava ilable David Gale Consulting Unavailable Ehsan Uriarte Consulting Unavailable Sheeba Rodriguez Consulting Unavailable Lydia Orantes Consulting Unavailable Renee Cleveland Consulting Unavailable Kyle Ghosh Consulting Unavailable Leidy Mckinnon Consulting Unavailable [...] Provider Mychal PHILLIPS, Dr. Manuel Admit Provider Mychal PHILLIPS, Dr. Manuel Referring Provider Shanel SCHWAB, Dr. Cerna Other Provider Dr. Trae Washington MD Other Provider Unavailable Juliana SCHWAB, Dr. Juarez Other Provider Dr. Chase Mccauley MD Other Provider Beto SCHWAB, Dr. Castillo Other Provider Unavailable Valeriy SHCWAB, Dr. Walker Other Provider Dr. Aubrey Saxena DO Other Provider Renny REAL ESTATE RENTAL AGENT-C, Angelica Other Provider Dr. Nehemiah Hammond MD Attending Provider Unavaila Dr. Shaun Alvarenga MD Attending Provider Dr. Nehemiah Hammond MD Other Provider Unavailable Jace SCHWAB, Dr. Ximena Castañeda Attending Provider Allergies Allergy Classification Reported Allergen(s) Allergy Type Date of Onset Reaction(s) Facility (7 sources) Naproxen; Translations: [NAPROXEN] [facility] Work Phone: (2 sources) Seasonal allergy; Translations: [SEASONAL ALLERGIES] Propensity to adverse reactions 0 [facility] (3 sources) Codeine Drug Allergy 5 Unknown [facility] (1 source) Codeine Drug Allergy 5 [facility] Repository (1 source) Naproxen Drug Allergy [facility] Repository Medications Current Medications Medication Drug [...] MEALS 0 November 01, 2024 12:00am [facility] atorvastatin 80 mg oral tablet (3 sources) [...] Auto (Unsp spec) [#/Vol] 3.28 10*3/uL 0.83-4.51 [facility] Absolute neutrophil countOrd ered By: Nehemiah Hammond on 11-10-2024 Neutrophils (Bld) [#/Vol] 4.5 10*3/uL 2.0-7.7 [facility] Anion gap in Serum or Plasma Ordered By: Nehemiah Hammond on 11-10-2024 Anion gap [Moles/Vol] 9 mmol/L 5-15 [facility] Automated lymphocyte count a s percentage of total leukocytesOrdered By: Nehemiah Hammond on 11-10-2024 Lymphocytes/100 WBC Auto (Unsp spec) 37.4 % 19-41 [facility] BUN/creatinine ratioOrdered By: Nehemiah Hammond on 11-10-2024 Urea nitrogen/Creatinine [Mass ratio] 19.8 mg/mg 10-20 [facility] Basophil percentageOrdered B y: Nehemiah Hammond on 11-10-2024 Basophils/100 WBC (Bld) 0.5 % 0-1 [facility] Carbon dioxide, total [Moles /volume] in Central venous bloodOrdered By: Nehemiah Hammond on 11-10-2024 CO2 [Moles/Vol] 26.0 mmol/L 21.0-32.0 [facility] Chloride assayOrdered By: Edward Hammond on 11-10-2024 Chloride [Moles/Vol] 107 mmol/L 98-108 [facility] Eosinophil percentageOrdered By: Nehemiah Hammond on 11-10-2024 Eosinophils/100 WBC (Bld) 1.6 % 0-5 [facility] Erythrocyte distribution wid th ratioOrdered By: Nehemiah Hammond on 11-10-2024 Erythrocyte distribution width (RBC) [Ratio] 11.6 % 11.6-14.6 [facility] Erythrocyte distribution wid th standard deviationOrdered By: Nehemiah Hammond on 11-10-2024 Erythrocyte distribution width (RBC) [Ratio] 39.0 fl 35.1-43.9 [facility] Glomerular filtration rate ( GFR) estimation/1.73 sq m using serum, plasma, or whole bOrdered By: Nehemiah Hammond on 11-10-2024 GFR/1.73 sq M.predicted among non-blacks MDRD (S/P/Bld) [Vol rate/Area] 116 mL/min/{1.73_m2} >60 [facility] Comment on above: mL/min/1.73m2 CKD-EP I Creatinine Equation (2020) Hematocrit Auto (Bld) [Volum e fraction]Ordered By: Nehemiah Hammond on 11-10-2024 Hematocrit (Bld) [Volume fraction] 38.8 % 37-47 [facility] Hemoglobin measurementOrdere d By: Nehemiah Hammond on 11-10-2024 Hemoglobin (Bld) [Mass/Vol] 12.7 g/dL 12.0-15.0 [facility] Immature granulocytes/100 WB C Auto (Bld)Ordered By: Nehemiah Hammond on 11-10-2024 Immature granulocytes/100 WBC (Bld) 0.300 % 0.0-0.9 [facility] Comment on above: IG% - Immature Granu locytes (promyelocytes, myelocytes and metamyelocytes) > 1% indicates that a LEFT SHIFT is Present. MCV (mean corpuscular volume ) determinationOrdered By: Nehemiah Hammond on 11-10-2024 MCV (RBC) [Entitic vol] 91.7 fL 81-99 [facility] Mean corpuscular hemoglobin (MCH) determinationOrdered By: Nehemiah Hammond on 11-10-2024 MCH (RBC) [Entitic mass] 30.0 pg 27.0-32.0 [facility] Mean corpuscular hemoglobin concentration (MCHC) determinationOrdered By: Nehemiah Hammond on 11-10-2024 MCHC (RBC) [Mass/Vol] 32.7 g/dL 32-36 [facility] Mean platelet volume determi nationOrdered By: Nehemiah Hammond on 11-10-2024 Platelet mean volume (Bld) [Entitic vol] 10.7 fL 6.2-12.0 [facility] Monocyte percentageOrdered B y: Nehemiah Hammond on 11-10-2024 Monocytes/100 WBC (Bld) 8.7 % 0-10 [facility] Neutrophil percentageOrdered By: Nehemiah Hammond on 11-10-2024 Neutrophils/100 WBC (Bld) 51.5 % 47-70 [facility] Nucleated red blood cell per centageOrdered By: Neheimah Hammond on 11-10-2024 Nucleated RBC/100 WBC (Bld) [Ratio] 0 % 0-5 [facility] Platelet countOrdered By: Edward Hammond on 11-10-2024 Platelets (Bld) [#/Vol] 384 10*3/uL 150-450 [facility] Potassium measurement (mass/ volume)Ordered By: Nehemiah Hammond on 11-10-2024 Potassium (Unsp spec) [Mass/Vol] 4.2 mmol/L 3.3-5.1 [facility] RBC Auto (Bld) [#/Vol]Ordere d By: Nehemiah Hammond on 11-10-2024 RBC (Bld) [#/Vol] 4.23 10*6/uL 4.2-5.4 [facility] Serum creatinine measurement (mass/volume)Ordered By: Nehemiah Hammond on 11-10-2024 Creatinine [Mass/Vol] 0.60 mg/dL Low 0.70-1.20 [facility] Serum glucose measurement (m ass/volume)Ordered By: Nheemiah Hammond on 11-10-2024 Glucose [Mass/Vol] 98 mg/dL 70-99 [facility] Serum or plasma calcium sasha urement (mass/volume)Ordered By: Nehemiah Hammond on 11-10-2024 Calcium [Mass/Vol] 9.2 mg/dL 7.6-11.0 [facility] Serum or plasma urea nitroge n measurement (mass/volume)Ordered By: Nehemiah Hammond on 11-10-2024 Urea nitrogen [Mass/Vol] 12 mg/dL 4-19 [facility] Sodium levelOrdered By: Himanshu Hammond on 11-10-2024 Sodium [Moles/Vol] 141 mmol/L 133-145 [facility] White blood cell (WBC) count Ordered By: Nehemiah Hammond on 11-10-2024 WBC (Bld) [#/Vol] 8.8 10*3/uL 4.4-11.0 [facility] Basic Metabolic Profile (BMP )on 11-08-2024 BUN/CRE 26.1 RATIO High 10-20 [facility] Comment on above: Performed By: #### L 100.0100, L500.2500, L501.5200, L501.2300 ####[facility] [address] [place], [address] Calcium [Mass/Vol] 8.4 mg/dL Normal 7.6-11.0 [facility] Comment on above: Performed By: #### L 100.0100, L500.2500, L501.5200, L501.2300 ####[facility] [address] [place], [address] Chloride [Moles/Vol] 108 mmol/L Normal 98-108 [facility] Comment on above: Performed By: #### L 100.0100, L500.2500, L501.5200, L501.2300 ####[facility] [address] [place], [address] CO2 [Moles/Vol] 20.9 mmol/L Low 21.0-32.0 [facility] Comment on above: Performed By: #### L 100.0100, L500.2500, L501.5200, L501.2300 ####[facility] [address] [place], [address] Creatinine [Mass/Vol] 0.49 mg/dL Low 0.70-1.20 [facility] Comment on above: Performed By: #### L 100.0100, L500.2500, L501.5200, L501.2300 ####[facility] [address] [place], [address] ECRCL 151.59 ml/min Normal 50-250 [facility] Comment on above: Performed By: #### L 100.0100, L500.2500, L501.5200, L501.2300 ####[facility] [address] [place], [address] GAP 9 Normal 5-15 [facility] Comment on above: Performed By: #### L 100.0100, L500.2500, L501.5200, L501.2300 ####[facility] [address] [place], [address] GFR/1.73 sq M.predicted among non-blacks MDRD (S/P/Bld) [Vol rate/Area] 121 mL/min/{1.73_m2} Normal >60 [facility] Comment on above: Result Comment: mL/m in/1.73m2 CKD-EPI Creatinine Equation (2020) Performed By: #### L 100.0100, L500.2500, L501.5200, L501.2300 ####[facility] [address] [place], [address] Glucose [Mass/Vol] 94 mg/dL Normal 70-99 [facility] Comment on above: Performed By: #### L 100.0100, L500.2500, L501.5200, L501.2300 ####[facility] [address] [place], [address] Potassium [Moles/Vol] 4.3 mmol/L Normal 3.3-5.1 [facility] Comment on above: Performed By: #### L 100.0100, L500.2500, L501.5200, L501.2300 ####[facility] [address] [place], [address] Sodium [Moles/Vol] 138 mmol/L Normal 133-145 [facility] Comment on above: Performed By: #### L 100.0100, L500.2500, L501.5200, L501.2300 ####[facility] [address] [place], [address] Urea nitrogen [Mass/Vol] 13 mg/dL Normal 4-19 [facility] Comment on above: Performed By: #### L 100.0100, L500.2500, L501.5200, L501.2300 ####[facility] [address] [place], [address] CBC W/Diff, Automatedon 08-0 8-2025 Absolute Lymph 2.78 X10 3/uL Normal 0.83-4.51 [facility] Comment on above: Performed By: #### L 100.0100, L500.2500, L501.5200, L501.2300 ####[facility] [address] [place], [address] Absolute Neut 4.8 X10 3/uL Normal 2.0-7.7 [facility] Comment on above: Performed By: #### L 100.0100, L500.2500, L501.5200, L501.2300 ####[facility] [address] [place], [address] Basophils/100 WBC (Bld) 0.6 % Normal 0-1 [facility] Comment on above: Performed By: #### L 100.0100, L500.2500, L501.5200, L501.2300 ####[facility] [address] [place], [address] Eosinophils/100 WBC (Bld) 2.2 % Normal 0-5 [facility] Comment on above: Performed By: #### L 100.0100, L500.2500, L501.5200, L501.2300 ####[facility] [address] [place], [address] Erythrocyte distribution width (RBC) [Ratio] 11.7 % Normal 11.6-14.6 [facility] Comment on above: Performed By: #### L 100.0100, L500.2500, L501.5200, L501.2300 ####[facility] [address] [place], [address] Hematocrit (Bld) [Volume fraction] 39.2 % Normal 37-47 [facility] Comment on above: Performed By: #### L 100.0100, L500.2500, L501.5200, L501.2300 ####[facility] [address] [place], [address] Hemoglobin (Bld) [Mass/Vol] 13.0 g/dL Normal 12.0-15.0 [facility] Comment on above: Performed By: #### L 100.0100, L500.2500, L501.5200, L501.2300 ####[facility] [address] [place], [address] IG% 0.300 Normal 0.0-0.9 [facility] Comment on above: Result Comment: IG% - Immature Granulocytes (promyelocytes, myelocytes andmetamyelocytes) > 1% indicates that a LEFT SHIFT is Present. Performed By: #### L 100.0100, L500.2500, L501.5200, L501.2300 ####[facility] [address] [place], [address] Lymphocytes/100 WBC (Bld) 32.3 % Normal 19-41 [facility] Comment on above: Performed By: #### L 100.0100, L500.2500, L501.5200, L501.2300 ####[facility] [address] [place], [address] MCH (RBC) [Entitic mass] 30.5 pg Normal 27.0-32.0 [facility] Comment on above: Performed By: #### L 100.0100, L500.2500, L501.5200, L501.2300 ####[facility] [address] [place], [address] MCHC (RBC) [Mass/Vol] 33.2 g/dL Normal 32-36 [facility] Comment on above: Performed By: #### L 100.0100, L500.2500, L501.5200, L501.2300 ####[facility] [address] [place], [address] MCV (RBC) [Entitic vol] 92.0 fL Normal 81-99 [facility] Comment on above: Performed By: #### L 100.0100, L500.2500, L501.5200, L501.2300 ####[facility] [address] [place], [address] Monocytes/100 WBC (Bld) 9.0 % Normal 0-10 [facility] Comment on above: Performed By: #### L 100.0100, L500.2500, L501.5200, L501.2300 ####[facility] [address] [place], [address] Neutrophils/100 WBC (Bld) 55.6 % Normal 47-70 [facility] Comment on above: Performed By: #### L 100.0100, L500.2500, L501.5200, L501.2300 ####[facility] [address] [place], [address] Nucleated RBC (Bld) [#/Vol] 0 10*3/uL Normal 0-5 [facility] Comment on above: Performed By: #### L 100.0100, L500.2500, L501.5200, L501.2300 ####[facility] [address] [place], [address] Platelet mean volume (Bld) [Entitic vol] 10.7 fL Normal 6.2-12.0 [facility] Comment on above: Performed By: #### L 100.0100, L500.2500, L501.5200, L501.2300 ####[facility] [address] [place], [address] Platelets (Bld) [#/Vol] 329 10*3/uL Normal 150-450 [facility] Comment on above: Performed By: #### L 100.0100, L500.2500, L501.5200, L501.2300 ####[facility] [address] [place], [address] RBC (Bld) [#/Vol] 4.26 10*6/uL Normal 4.2-5.4 [facility] Comment on above: Performed By: #### L 100.0100, L500.2500, L501.5200, L501.2300 ####[facility] [address] [place], [address] RDW SD 39.6 fl Normal 35.1-43.9 [facility] Comment on above: Performed By: #### L 100.0100, L500.2500, L501.5200, L501.2300 ####[facility] [address] [place], [address] WBC (Bld) [#/Vol] 8.6 10*3/uL Normal 4.4-11.0 [facility] Comment on above: Performed By: #### L 100.0100, L500.2500, L501.5200, L501.2300 ####[facility] [address] [place], [address] Magnesiumon 11-08-2024 Magnesium [Mass/Vol] 2.4 mg/dL High 1.5-2.2 [facility] Comment on above: Performed By: #### L 100.0100, L500.2500, L501.5200, L501.2300 ####[facility] [address] [place], [address] Magnesium measurement (mass/ volume)Ordered By: Nehemiah Hammond on 11-08-2024 Magnesium (Unsp spec) [Mass/Vol] 2.4 mg/dL High 1.5-2.2 [facility] Phosphoruson 11-08-2024 Phosphate [Mass/Vol] 3.5 mg/dL Normal 2.7-4.5 [facility] Comment on above: Performed By: #### L 100.0100, L500.2500, L501.5200, L501.2300 ####[facility] [address] [place], [address] CBC W/Diff, Automatedon 08-0 7-2024 Absolute Lymph 2.57 X10 3/uL Normal 0.83-4.51 [facility] Comment on above: Performed By: #### L 100.0100 ####[facility] [address] [place], [address] Absolute Neut 6.8 X10 3/uL Normal 2.0-7.7 [facility] Comment on above: Performed By: #### L 100.0100 ####[facility] [address] [place], [address] Basophils/100 WBC (Bld) 0.4 % Normal 0-1 [facility] Comment on above: Performed By: #### L 100.0100 ####[facility] [address] [place], [address] Eosinophils/100 WBC (Bld) 1.7 % Normal 0-5 [facility] Comment on above: Performed By: #### L 100.0100 ####[facility] [address] [place], [address] Erythrocyte distribution width (RBC) [Ratio] 11.7 % Normal 11.6-14.6 [facility] Comment on above: Performed By: #### L 100.0100 ####[facility] [address] [place], [address] Hematocrit (Bld) [Volume fraction] 46.2 % Normal 37-47 [facility] Comment on above: Performed By: #### L 100.0100 ####[facility] [address] [place], [address] Hemoglobin (Bld) [Mass/Vol] 15.8 g/dL High 12.0-15.0 [facility] Comment on above: Performed By: #### L 100.0100 ####[facility] [address] [place], [address] IG% 0.300 Normal 0.0-0.9 [facility] Comment on above: Result Comment: IG% - Immature Granulocytes (promyelocytes, myelocytes andmetamyelocytes) > 1% indicates that a LEFT SHIFT is Present. Performed By: #### L 100.0100 ####[facility] [address] [place], [address] Lymphocytes/100 WBC (Bld) 24.1 % Normal 19-41 [facility] Comment on above: Performed By: #### L 100.0100 ####[facility] [address] [place], [address] MCH (RBC) [Entitic mass] 31.0 pg Normal 27.0-32.0 [facility] Comment on above: Performed By: #### L 100.0100 ####[facility] [address] [place], [address] MCHC (RBC) [Mass/Vol] 34.2 g/dL Normal 32-36 [facility] Comment on above: Performed By: #### L 100.0100 ####[facility] [address] [place], [address] MCV (RBC) [Entitic vol] 90.6 fL Normal 81-99 [facility] Comment on above: Performed By: #### L 100.0100 ####[facility] [address] [place], [address] Monocytes/100 WBC (Bld) 9.6 % Normal 0-10 [facility] Comment on above: Performed By: #### L 100.0100 ####[facility] [address] [place], [address] Neutrophils/100 WBC (Bld) 63.9 % Normal 47-70 [facility] Comment on above: Performed By: #### L 100.0100 ####[facility] [address] [place], [address] Nucleated RBC (Bld) [#/Vol] 0 10*3/uL Normal 0-5 [facility] Comment on above: Performed By: #### L 100.0100 ####[facility] [address] [place], [address] Platelet mean volume (Bld) [Entitic vol] 10.2 fL Normal 6.2-12.0 [facility] Comment on above: Performed By: #### L 100.0100 ####[facility] [address] [place], [address] Platelets (Bld) [#/Vol] 382 10*3/uL Normal 150-450 [facility] Comment on above: Performed By: #### L 100.0100 ####[facility] [address] [place], [address] RBC (Bld) [#/Vol] 5.10 10*6/uL Normal 4.2-5.4 [facility] Comment on above: Performed By: #### L 100.0100 ####[facility] [address] [place], [address] RDW SD 38.9 fl Normal 35.1-43.9 [facility] Comment on above: Performed By: #### L 100.0100 ####[facility] [address] [place], [address] WBC (Bld) [#/Vol] 10.7 10*3/uL Normal 4.4-11.0 [facility] Comment on above: Performed By: #### L 100.0100 ####[facility] [address] [place], [address] CBC-Complete Blood Cnt No Di ffon 11-07-2024 Erythrocyte distribution width (RBC) [Ratio] 11.8 % Normal 11.6-14.6 [facility] Comment on above: Performed By: #### L 100.0500 ####[facility] [address] [place], [address] Hematocrit (Bld) [Volume fraction] 46.4 % Normal 37-47 [facility] Comment on above: Performed By: #### L 100.0500 ####[facility] [address] [place], [address] Hemoglobin (Bld) [Mass/Vol] 15.4 g/dL High 12.0-15.0 [facility] Comment on above: Performed By: #### L 100.0500 ####[facility] [address] [place], [address] MCH (RBC) [Entitic mass] 30.6 pg Normal 27.0-32.0 [facility] Comment on above: Performed By: #### L 100.0500 ####[facility] [address] [place], [address] MCHC (RBC) [Mass/Vol] 33.2 g/dL Normal 32-36 [facility] Comment on above: Performed By: #### L 100.0500 ####[facility] [address] [place], [address] MCV (RBC) [Entitic vol] 92.2 fL Normal 81-99 [facility] Comment on above: Performed By: #### L 100.0500 ####[facility] [address] [place], [address] Platelet mean volume (Bld) [Entitic vol] 10.4 fL Normal 6.2-12.0 [facility] Comment on above: Performed By: #### L 100.0500 ####[facility] [address] [place], [address] Platelets (Bld) [#/Vol] 424 10*3/uL Normal 150-450 [facility] Comment on above: Performed By: #### L 100.0500 ####[facility] [address] [place], [address] RBC (Bld) [#/Vol] 5.03 10*6/uL Normal 4.2-5.4 [facility] Comment on above: Performed By: #### L 100.0500 ####[facility] [address] [place], [address] RDW SD 39.5 fl Normal 35.1-43.9 [facility] Comment on above: Performed By: #### L 100.0500 ####[facility] [address] [place], [address] WBC (Bld) [#/Vol] 11.0 10*3/uL Normal 4.4-11.0 [facility] Comment on above: Performed By: #### L 100.0500 ####[facility] [address] [place], [address] Basic Metabolic Profile (BMP )on 11-06-2024 BUN/CRE 29.5 RATIO High 10-20 [facility] Comment on above: Performed By: #### L 100.0100, L500.2500 ####[facility] [address] [place], [address] Calcium [Mass/Vol] 9.5 mg/dL Normal 7.6-11.0 [facility] Comment on above: Performed By: #### L 100.0100, L500.2500 ####[facility] [address] [place], [address] Chloride [Moles/Vol] 101 mmol/L Normal 98-108 [facility] Comment on above: Performed By: #### L 100.0100, L500.2500 ####[facility] [address] [place], [address] CO2 [Moles/Vol] 22.2 mmol/L Normal 21.0-32.0 [facility] Comment on above: Performed By: #### L 100.0100, L500.2500 ####[facility] [address] [place], [address] Creatinine [Mass/Vol] 0.58 mg/dL Low 0.70-1.20 [facility] Comment on above: Performed By: #### L 100.0100, L500.2500 ####[facility] [address] [place], [address] ECRCL 128.07 ml/min Normal 50-250 [facility] Comment on above: Performed By: #### L 100.0100, L500.2500 ####[facility] [address] [place], [address] GAP 15 Normal 5-15 [facility] Comment on above: Performed By: #### L 100.0100, L500.2500 ####[facility] [address] [place], [address] GFR/1.73 sq M.predicted among non-blacks MDRD (S/P/Bld) [Vol rate/Area] 117 mL/min/{1.73_m2} Normal >60 [facility] Comment on above: Result Comment: mL/m in/1.73m2 CKD-EPI Creatinine Equation (2020) Performed By: #### L 100.0100, L500.2500 ####[facility] [address] [place], [address] Glucose [Mass/Vol] 112 mg/dL High 70-99 [facility] Comment on above: Performed By: #### L 100.0100, L500.2500 ####[facility] [address] [place], [address] Potassium [Moles/Vol] 3.9 mmol/L Normal 3.3-5.1 [facility] Comment on above: Performed By: #### L 100.0100, L500.2500 ####[facility] [address] [place], [address] Sodium [Moles/Vol] 138 mmol/L Normal 133-145 [facility] Comment on above: Performed By: #### L 100.0100, L500.2500 ####[facility] [address] [place], [address] Urea nitrogen [Mass/Vol] 17 mg/dL Normal 4-19 [facility] Comment on above: Performed By: #### L 100.0100, L500.2500 ####[facility] [address] [place], [address] CBC W/Diff, Automatedon 08-0 6-2024 Absolute Lymph 2.66 X10 3/uL Normal 0.83-4.51 [facility] Comment on above: Performed By: #### L 100.0100, L500.2500 ####[facility] [address] [place], [address] Absolute Neut 5.7 X10 3/uL Normal 2.0-7.7 [facility] Comment on above: Performed By: #### L 100.0100, L500.2500 ####[facility] [address] [place], [address] Basophils/100 WBC (Bld) 0.7 % Normal 0-1 [facility] Comment on above: Performed By: #### L 100.0100, L500.2500 ####[facility] [address] [place], [address] Eosinophils/100 WBC (Bld) 1.7 % Normal 0-5 [facility] Comment on above: Performed By: #### L 100.0100, L500.2500 ####[facility] [address] [place], [address] Erythrocyte distribution width (RBC) [Ratio] 11.9 % Normal 11.6-14.6 [facility] Comment on above: Performed By: #### L 100.0100, L500.2500 ####[facility] [address] [place], [address] Hematocrit (Bld) [Volume fraction] 52.1 % High 37-47 [facility] Comment on above: Performed By: #### L 100.0100, L500.2500 ####[facility] [address] [place], [address] Hemoglobin (Bld) [Mass/Vol] 17.4 g/dL High 12.0-15.0 [facility] Comment on above: Performed By: #### L 100.0100, L500.2500 ####[facility] [address] [place], [address] IG% 0.400 Normal 0.0-0.9 [facility] Comment on above: Result Comment: IG% - Immature Granulocytes (promyelocytes, myelocytes andmetamyelocytes) > 1% indicates that a LEFT SHIFT is Present. Performed By: #### L 100.0100, L500.2500 ####[facility] [address] [place], [address] Lymphocytes/100 WBC (Bld) 27.6 % Normal 19-41 [facility] Comment on above: Performed By: #### L 100.0100, L500.2500 ####[facility] [address] [place], [address] MCH (RBC) [Entitic mass] 30.1 pg Normal 27.0-32.0 [facility] Comment on above: Performed By: #### L 100.0100, L500.2500 ####[facility] [address] [place], [address] MCHC (RBC) [Mass/Vol] 33.4 g/dL Normal 32-36 [facility] Comment on above: Performed By: #### L 100.0100, L500.2500 ####[facility] [address] [place], [address] MCV (RBC) [Entitic vol] 90.1 fL Normal 81-99 [facility] Comment on above: Performed By: #### L 100.0100, L500.2500 ####[facility] [address] [place], [address] Monocytes/100 WBC (Bld) 10.9 % High 0-10 [facility] Comment on above: Performed By: #### L 100.0100, L500.2500 ####[facility] [address] [place], [address] Neutrophils/100 WBC (Bld) 58.7 % Normal 47-70 [facility] Comment on above: Performed By: #### L 100.0100, L500.2500 ####[facility] [address] [place], [address] Nucleated RBC (Bld) [#/Vol] 0 10*3/uL Normal 0-5 [facility] Comment on above: Performed By: #### L 100.0100, L500.2500 ####[facility] [address] [place], [address] Platelet mean volume (Bld) [Entitic vol] 10.3 fL Normal 6.2-12.0 [facility] Comment on above: Performed By: #### L 100.0100, L500.2500 ####[facility] [address] [place], [address] Platelets (Bld) [#/Vol] 361 10*3/uL Normal 150-450 [facility] Comment on above: Performed By: #### L 100.0100, L500.2500 ####[facility] [address] [place], [address] RBC (Bld) [#/Vol] 5.78 10*6/uL High 4.2-5.4 [facility] Comment on above: Performed By: #### L 100.0100, L500.2500 ####[facility] [address] [place], [address] RDW SD 39.6 fl Normal 35.1-43.9 [facility] Comment on above: Performed By: #### L 100.0100, L500.2500 ####[facility] [address] [place], [address] WBC (Bld) [#/Vol] 9.6 10*3/uL Normal 4.4-11.0 [facility] Comment on above: Performed By: #### L 100.0100, L500.2500 ####[facility] [address] [place], [address] HH, Hemoglobin AND Hematocri ton 11-06-2024 Hematocrit (Bld) [Volume fraction] 51.2 % High 37-47 [facility] Comment on above: Performed By: #### L 100.0600 ####[facility] [address] [place], [address] Hemoglobin (Bld) [Mass/Vol] 17.0 g/dL High 12.0-15.0 [facility] Comment on above: Performed By: #### L 100.0600 ####[facility] [address] [place], [address] Magnesiumon 11-06-2024 Magnesium [Mass/Vol] 2.3 mg/dL High 1.5-2.2 [facility] Comment on above: Performed By: #### L 501.5200 ####[facility] [address] [place], [address] Abdomen Completeon Abdomen Complete Normal [facility] Abdomen/Pelvis WITH Contrast on 11-05-2024 Abdomen/Pelvis WITH Contrast Normal [facility] Basic Metabolic Profile (BMP )on 11-05-2024 BUN Normal 4-19 [facility] Comment on above: Result Comment: Canc elled via OM: MD Ordered Performed By: #### L 100.0500, L500.2500 ####[facility] [address] [place], [address] BUN/CRE Normal 10-20 [facility] Comment on above: Result Comment: Canc elled via OM: MD Ordered Performed By: #### L 100.0500, L500.2500 ####[facility] [address] [place], [address] Calcium Normal 7.6-11.0 [facility] Comment on above: Result Comment: Canc elled via OM: MD Ordered Performed By: #### L 100.0500, L500.2500 ####[facility] [address] [place], [address] CL Normal 98-108 [facility] Comment on above: Result Comment: Canc elled via OM: MD Ordered Performed By: #### L 100.0500, L500.2500 ####[facility] [address] [place], [address] CO2 Normal 21.0-32.0 [facility] Comment on above: Result Comment: Canc elled via OM: MD Ordered Performed By: #### L 100.0500, L500.2500 ####[facility] [address] [place], [address] CREAT,SERUM Normal 0.70-1.20 [facility] Comment on above: Result Comment: Canc elled via OM: MD Ordered Performed By: #### L 100.0500, L500.2500 ####[facility] [address] [place], [address] eGFR Normal >60 [facility] Comment on above: Result Comment: Canc elled via OM: MD Ordered Performed By: #### L 100.0500, L500.2500 ####[facility] [address] [place], [address] GAP Normal 5-15 [facility] Comment on above: Result Comment: Canc elled via OM: MD Ordered Performed By: #### L 100.0500, L500.2500 ####[facility] [address] [place], [address] GLU Normal 70-99 [facility] Comment on above: Result Comment: Canc elled via OM: MD Ordered Performed By: #### L 100.0500, L500.2500 ####[facility] [address] [place], [address] Potassium Normal 3.3-5.1 [facility] Comment on above: Result Comment: Canc elled via OM: MD Ordered Performed By: #### L 100.0500, L500.2500 ####[facility] [address] [place], [address] Basic Metabolic Profile (BMP) Normal 133-145 [facility] Comment on above: Result Comment: Canc elled via OM: MD Ordered Performed By: #### L 100.0500, L500.2500 ####[facility] [address] [place], [address] CBC-Complete Blood Cnt No Di ffon 11-05-2024 Erythrocyte distribution width (RBC) [Ratio] 12.1 % Normal 11.6-14.6 [facility] Comment on above: Performed By: #### L 100.0500, L500.2500 ####[facility] [address] [place], [address] Hematocrit (Bld) [Volume fraction] 52.8 % High 37-47 [facility] Comment on above: Performed By: #### L 100.0500, L500.2500 ####[facility] [address] [place], [address] Hemoglobin (Bld) [Mass/Vol] 17.5 g/dL High 12.0-15.0 [facility] Comment on above: Performed By: #### L 100.0500, L500.2500 ####[facility] [address] [place], [address] MCH (RBC) [Entitic mass] 29.9 pg Normal 27.0-32.0 [facility] Comment on above: Performed By: #### L 100.0500, L500.2500 ####[facility] [address] [place], [address] MCHC (RBC) [Mass/Vol] 33.1 g/dL Normal 32-36 [facility] Comment on above: Performed By: #### L 100.0500, L500.2500 ####[facility] [address] [place], [address] MCV (RBC) [Entitic vol] 90.3 fL Normal 81-99 [facility] Comment on above: Performed By: #### L 100.0500, L500.2500 ####[facility] [address] [place], [address] Platelet mean volume (Bld) [Entitic vol] 10.3 fL Normal 6.2-12.0 [facility] Comment on above: Performed By: #### L 100.0500, L500.2500 ####[facility] [address] [place], [address] Platelets (Bld) [#/Vol] 342 10*3/uL Normal 150-450 [facility] Comment on above: Performed By: #### L 100.0500, L500.2500 ####[facility] [address] [place], [address] RBC (Bld) [#/Vol] 5.85 10*6/uL High 4.2-5.4 [facility] Comment on above: Performed By: #### L 100.0500, L500.2500 ####[facility] [address] [place], [address] RDW SD 40.9 fl Normal 35.1-43.9 [facility] Comment on above: Performed By: #### L 100.0500, L500.2500 ####[facility] [address] [place], [address] WBC (Bld) [#/Vol] 12.9 10*3/uL High 4.4-11.0 [facility] Comment on above: Performed By: #### L 100.0500, L500.2500 ####[facility] [address] [place], [address] Erythropoietinon 11-05-2024 ERYTHROPOIETIN 2.1 mIU/mL Low 2.6-18.5 [facility] Comment on above: Result Comment: [employer] DxI 800 Immunoassay SystemValues obtained with different assay methods or kits cannotbe used interchangeably. Results cannot be interpreted asabsolute evidence of the presence or absence of malignantdisease.Performed at: [place] [id number] Director: Dl Campuzano PhD, Phone: [phone] Performed By: #### L 1934.5046 ####[facility] [address] [place], [address] 12 Lead EKGon 11-04-2024 12 Lead EKG Normal [facility] 12 Lead EKG Normal [facility] Absolute lymphocyte countOrd ered By: Luis Ravi on 11-04-2024 Lymphocytes Auto (Unsp spec) [#/Vol] 3.01 10*3/uL 0.83-4.51 [facility] Absolute neutrophil countOrd ered By: Luis Ravi on 11-04-2024 Neutrophils (Bld) [#/Vol] 7.9 10*3/uL High 2.0-7.7 [facility] Activated partial thrombopla stin time (aPTT) in platelet poor plasma by coagulation aOrdered By: Law Jayce on 11-04-2024 aPTT Coag (PPP) [Time] 27.0 s 24.1-36.2 [facility] Automated lymphocyte count a s percentage of total leukocytesOrdered By: Luis Ravi on 11-04-2024 Lymphocytes/100 WBC Auto (Unsp spec) 24.9 % 19-41 [facility] Basophil percentageOrdered B y: Luis Ravi on 11-04-2024 Basophils/100 WBC (Bld) 0.4 % 0-1 [facility] CBC W/Diff, Automatedon Absolute Lymph 3.01 X10 3/uL Normal 0.83-4.51 [facility] Comment on above: Performed By: #### L 100.0100 ####[facility] [address] [place], [address] Absolute Neut 7.9 X10 3/uL High 2.0-7.7 [facility] Comment on above: Performed By: #### L 100.0100 ####[facility] [address] [place], [address] Basophils/100 WBC (Bld) 0.4 % Normal 0-1 [facility] Comment on above: Performed By: #### L 100.0100 ####[facility] [address] [place], [address] Eosinophils/100 WBC (Bld) 0.6 % Normal 0-5 [facility] Comment on above: Performed By: #### L 100.0100 ####[facility] [address] [place], [address] Erythrocyte distribution width (RBC) [Ratio] 12.8 % Normal 11.6-14.6 [facility] Comment on above: Performed By: #### L 100.0100 ####[facility] [address] [place], [address] Hematocrit (Bld) [Volume fraction] 54.0 % High 37-47 [facility] Comment on above: Performed By: #### L 100.0100 ####[facility] [address] [place], [address] Hemoglobin (Bld) [Mass/Vol] 17.7 g/dL High 12.0-15.0 [facility] Comment on above: Performed By: #### L 100.0100 ####[facility] [address] [place], [address] IG% 0.200 Normal 0.0-0.9 [facility] Comment on above: Result Comment: IG% - Immature Granulocytes (promyelocytes, myelocytes andmetamyelocytes) > 1% indicates that a LEFT SHIFT is Present. Performed By: #### L 100.0100 ####[facility] [address] [place], [address] Lymphocytes/100 WBC (Bld) 24.9 % Normal 19-41 [facility] Comment on above: Performed By: #### L 100.0100 ####[facility] [address] [place], [address] MCH (RBC) [Entitic mass] 29.8 pg Normal 27.0-32.0 [facility] Comment on above: Performed By: #### L 100.0100 ####[facility] [address] [place], [address] MCHC (RBC) [Mass/Vol] 32.8 g/dL Normal 32-36 [facility] Comment on above: Performed By: #### L 100.0100 ####[facility] [address] [place], [address] MCV (RBC) [Entitic vol] 91.1 fL Normal 81-99 [facility] Comment on above: Performed By: #### L 100.0100 ####[facility] [address] [place], [address] Monocytes/100 WBC (Bld) 8.2 % Normal 0-10 [facility] Comment on above: Performed By: #### L 100.0100 ####[facility] [address] [place], [address] Neutrophils/100 WBC (Bld) 65.7 % Normal 47-70 [facility] Comment on above: Performed By: #### L 100.0100 ####[facility] [address] [place], [address] Nucleated RBC (Bld) [#/Vol] 0 10*3/uL Normal 0-5 [facility] Comment on above: Performed By: #### L 100.0100 ####[facility] [address] [place], [address] Platelet mean volume (Bld) [Entitic vol] 10.2 fL Normal 6.2-12.0 [facility] Comment on above: Performed By: #### L 100.0100 ####[facility] [address] [place], [address] Platelets (Bld) [#/Vol] 377 10*3/uL Normal 150-450 [facility] Comment on above: Performed By: #### L 100.0100 ####[facility] [address] [place], [address] RBC (Bld) [#/Vol] 5.93 10*6/uL High 4.2-5.4 [facility] Comment on above: Performed By: #### L 100.0100 ####[facility] [address] [place], [address] RDW SD 43.2 fl Normal 35.1-43.9 [facility] Comment on above: Performed By: #### L 100.0100 ####[facility] [address] [place], [place], [address] WBC (Bld) [#/Vol] 12.1 10*3/uL High 4.4-11.0 [facility] Comment on above: Performed By: #### L 100.0100 ####[facility] [address] [place], [address] Consultation - Cardiologyon 11-04-2024 Consultation - Cardiology Normal [facility] Consultation - Oncology IPon 11-04-2024 Consultation - Oncology IP Normal [facility] Eosinophil percentageOrdered By: Luis Ravi on 11-04-2024 Eosinophils/100 WBC (Bld) 0.6 % 0-5 [facility] Erythrocyte distribution wid th ratioOrdered By: Luis Ravi on 11-04-2024 Erythrocyte distribution width (RBC) [Ratio] 12.8 % 11.6-14.6 [facility] Erythrocyte distribution wid th standard deviationOrdered By: Luis Ravi on 11-04-2024 Erythrocyte distribution width (RBC) [Ratio] 43.2 fl 35.1-43.9 [facility] H AND P Exam - Hospitaliston 11-04-2024 H&P Exam - Hospitalist Normal [facility] Hematocrit Auto (Bld) [Volum e fraction]Ordered By: Luis Ravi on 11-04-2024 Hematocrit (Bld) [Volume fraction] 54.0 % High 37-47 [facility] Hemoglobin measurementOrdere d By: Luis Ravi on 11-04-2024 Hemoglobin (Bld) [Mass/Vol] 17.7 g/dL High 12.0-15.0 [facility] Immature granulocytes/100 WB C Auto (Bld)Ordered By: Luis Ravi on 11-04-2024 Immature granulocytes/100 WBC (Bld) 0.200 % 0.0-0.9 [facility] Comment on above: IG% - Immature Granu locytes (promyelocytes, myelocytes and metamyelocytes) > 1% indicates that a LEFT SHIFT is Present. JAK2 Mutation Analysison JAK2 COMMENT Comment Normal . [facility] Comment on above: Result Comment: Tech nical Component performed at [facility] RTPProfessional Component performed by:Lisbet Price, PhD, FACMGDirector, Molecular OncologyCharles [facility] Hospital [id number], [address] [facility] [phone] test was developed and its performance characteristicsdetermined by [facility]. It has not been cleared orapproved by the Food and Drug Administration.Performed at: [facility] [id number] [facility], [place], [place] [id number] Director: Neil Campos [facility], Phone: [phone] at: [facility] [place] [id number], [facility] [place] [id number] Director: Neil Campos [facility], Phone: [phone] Performed By: #### L 3440.5000 ####[facility] [address] [place], [place], [address] JAK2 COMMENT 2 Comment Normal . [facility] Comment on above: Result Comment: JAK2 is a cytoplasmic tyrosine kinase with a connell role insignal transduction from multiple hematopoietic growthfactor receptors. A point mutation within exon 14 of theJAK2 gene ([id number]) encoding a valine to phenylalaninesubstitution at position [...] specific to JAK2 wild type (WT) and GUF9vqrhjg V617F. The [employer] Absolute Quantitation softwarewill compare the patient specimen valuse to the standardcurves and generate percent values for wild type andmutant type. In vitro studies have indicated that thisassay has an analytical sensitivity of 1%.References:Solo EJ, Roger LM, Macho PJ, et al. Acquiredmutation of the tyrosine kinase JAK2 in humanmyeloproliferative disorders. Lancet. 2005 Jun 19;365(7451):8005-3317. Tong Bolden, Geraldo V, Adelina Curry JP. Aunique clonal JAK2 mutation leading to constitutivesignaling causes polycythaemia vera. Nature. 2005 Jul 29;835(4609):2810-9418.Maryann R, Aly F, Joseph , et al. A rxum-ai-azhkugjp mutation of JAK2 in myeloproliferative disorders.N Engl J Med. 2005 Jul 29; 35217):9566-9045. Performed By: #### L 3440.5000 ####[facility] [address] [place], [place], [address] JAK2 MUT QUAL Comment Normal . [facility] Comment on above: Result Comment: Resu lt: NEGATIVE for the JAK2 V617F mutation.Interpretation: The G to T nucleotide change encoding tojL035H mutation was not detected. This result does [...] with these disorders. Performed By: #### L 7140.5000 ####[facility] [address] [place], [address] L501.4021on 11-04-2024 Trop T High Sen 26 ng/L High <=14 [facility] Comment on above: Order Comment: CIARA Perez PREVIOUS SPECIMEN REJECTED DUE TOHEMOLYSIS. 11/04/24 Comfort Garcia. Performed By: #### L 501.4021 ####[facility] [address] [place], [place], [address] MCV (mean corpuscular volume ) determinationOrdered By: Luis Ravi on 11-04-2024 MCV (RBC) [Entitic vol] 91.1 fL 81-99 [facility] Mean corpuscular hemoglobin (MCH) determinationOrdered By: Luis Ravi on 11-04-2024 MCH (RBC) [Entitic mass] 29.8 pg 27.0-32.0 [facility] Mean corpuscular hemoglobin concentration (MCHC) determinationOrdered By: Luis Ravi on 11-04-2024 MCHC (RBC) [Mass/Vol] 32.8 g/dL 32-36 [facility] Mean platelet volume determi nationOrdered By: Lius Ravi on 11-04-2024 Platelet mean volume (Bld) [Entitic vol] 10.2 fL 6.2-12.0 [facility] Monocyte percentageOrdered B y: Luis Ravi on 11-04-2024 Monocytes/100 WBC (Bld) 8.2 % 0-10 [facility] Neutrophil percentageOrdered By: Luis Ravi on 11-04-2024 Neutrophils/100 WBC (Bld) 65.7 % 47-70 [facility] Nucleated red blood cell per centageOrdered By: Luis Ravi on 11-04-2024 Nucleated RBC/100 WBC (Bld) [Ratio] 0 % 0-5 [facility] Partial Thromboplast Timeon 11-04-2024 aPTT Coag (Bld) [Time] 27.0 s Normal 24.1-36.2 [facility] Comment on above: Performed By: #### L 300.4900 ####[facility] [address] [place], [address] Platelet countOrdered By: Aurelio Ravi on 11-04-2024 Platelets (Bld) [#/Vol] 377 10*3/uL 150-450 [facility] ,Urineon 11-04-2024 Beta HCG ( test) Ql (U) Negative Normal [facility] Comment on above: Result Comment: Very dilute urine specimens, as indicated by a low specificgravity, may not contain sales representative graphic art levels of hCG.If is still suspected, a first morning urinespecimen should be collected 48 hours later and tested. Performed By: #### L 400.7770 ####[facility] [address] [place], [place], [phone] RBC Auto (Bld) [#/Vol]Ordere d By: Luis Ravi on 11-04-2024 RBC (Bld) [#/Vol] 5.93 10*6/uL High 4.2-5.4 [facility] Serum or plasma erythropoiet in (EPO) measurement (units/volume)Ordered By: Lois Domingo on 11-04-2024 Erythropoietin (EPO) Qn 2.1 mIU/mL Low 2.6-18.5 [facility] Comment on above: Blurr el DxI 800 Immunoassay SystemValues obtained with different assay methods or kits cannotbe used interchangeably. Results cannot be interpreted asabsolute evidence of the presence or absence of malignantdisease.Performed at: [email or web address] [id number] Director: Dl Campuzano PhD, Phone: [phone] Troponin T HS 2 HRon 025 Trop T High Sen 31 ng/L High <=14 [facility] Comment on above: Performed By: #### L 499.0042 ####[facility] [address] [place], [address] Trop T High Sen Normal <=14 [facility] Comment on above: Result Comment: WAS DRAWN ON PCU UNDER PCU DR ORDER Performed By: #### L 499.0042 ####[facility] [address] [place], [place], [phone] Troponin T HS 4 HRon 025 Trop T High Sen 48 ng/L High <=14 [facility] Comment on above: Result Comment: Hemo lysis present, Results??could be affected.?? Performed By: #### L 499.0043 ####[facility] [address] [place], [place], [phone] Trop T High Sen Normal <=14 [facility] Comment on above: Result Comment: Canc elled via OM: Order cancelled - Patient discharged Performed By: #### L 499.0043 ####[facility] [address] [place], [place], [phone] Troponin T.cardiac [Mass/vol ume] in Serum or Plasma by High sensitivity methodOrdered By: Lois Domingo on 11-04-2024 Troponin T.cardiac High sensitivity method [Mass/Vol] 48 ng/L High <14 [facility] Comment on above: Hemolysis present, R esults could be affected. Troponin T.cardiac High sensitivity method [Mass/Vol] 31 ng/L High <14 [facility] Troponin T.cardiac [Mass/vol ume] in Serum or Plasma by High sensitivity methodOrdered By: Luis Ravi on 11-04-2024 Troponin T.cardiac High sensitivity method [Mass/Vol] 26 ng/L High <14 [facility] Comment on above: Delta: < 6 on -2039 Urine testOrdered By: Law Eduardo on 11-04-2024 HCG ( test) Ql (U) Negative [facility] Comment on above: Very dilute urine sp ecimens, as indicated by a low specificgravity, may not contain sales representative graphic art levels of hCG. If is still suspected, a first morning urinespecimen should be collected 48 hours later and tested. White blood cell (WBC) count Ordered By: Luis Ravi on 11-04-2024 WBC (Bld) [#/Vol] 12.1 10*3/uL High 4.4-11.0 [facility] Anion gap in Serum or Plasma Ordered By: Luis Ravi on 11-03-2024 Anion gap [Moles/Vol] 19 mmol/L High 5-15 [facility] BUN/creatinine ratioOrdered By: Luis Ravi on 11-03-2024 Urea nitrogen/Creatinine [Mass ratio] 31.0 mg/mg High 10-20 [facility] Basic Metabolic Profile (BMP )on 11-03-2024 BUN/CRE 31.0 RATIO High - [facility] Comment on above: Performed By: #### L 500.2500 ####[facility] [address] [place], [address] Calcium [Mass/Vol] 10.2 mg/dL Normal 7.6-11.0 [facility] Comment on above: Performed By: #### L 500.2500 ####[facility] [address] [place], [address] Chloride [Moles/Vol] 99 mmol/L Normal 98-108 [facility] Comment on above: Performed By: #### L 500.2500 ####[facility] [address] [place], [address] CO2 [Moles/Vol] 19.6 mmol/L Low 21.0-32.0 [facility] Comment on above: Performed By: #### L 500.2500 ####[facility] [address] [place], [address] Creatinine [Mass/Vol] 0.69 mg/dL Low 0.70-1.20 [facility] Comment on above: Performed By: #### L 500.2500 ####[facility] [address] [place], [address] ECRCL 105.73 ml/min Normal 50-250 [facility] Comment on above: Performed By: #### L 500.2500 ####[facility] [address] [place], [address] GAP 19 High 5-15 [facility] Comment on above: Performed By: #### L 500.2500 ####[facility] [address] [place], [address] GFR/1.73 sq M.predicted among non-blacks MDRD (S/P/Bld) [Vol rate/Area] 112 mL/min/{1.73_m2} Normal >60 [facility] Comment on above: Result Comment: mL/m in/1.73m2 CKD-EPI Creatinine Equation (2020) Performed By: #### L 500.2500 ####[facility] [address] [place], [address] Glucose [Mass/Vol] 122 mg/dL High 70-99 [facility] Comment on above: Performed By: #### L 500.2500 ####[facility] [address] [place], [address] Potassium [Moles/Vol] 4.0 mmol/L Normal 3.3-5.1 [facility] Comment on above: Result Comment: Hemo lysis present, Results??could be affected.?? Performed By: #### L 500.2500 ####[facility] [address] [place], [address] Sodium [Moles/Vol] 138 mmol/L Normal 133-145 [facility] Comment on above: Performed By: #### L 500.2500 ####[facility] [address] [place], [address] Urea nitrogen [Mass/Vol] 21 mg/dL High 4-19 [facility] Comment on above: Performed By: #### L 500.2500 ####[facility] [address] [place], [address] Bilirubin Test strip Ql (U)O rdered By: Lois Domingo on 11-03-2024 Bilirubin Ql (U) Negative Negative [facility] CBC W/Diff, Automatedon 08-0 Hematocrit (Bld) [Volume fraction] 58.5 % High 37-47 [facility] Comment on above: Order Comment: CRITI MONICA VALUE CALLED TO PATRICK MORENO11/03/24 0720 Елена Lewis.RESULTS READ BACK BY SAME. Performed By: #### L 100.0100 ####[facility] [address] [place], [address] Absolute Lymph 2.41 X10 3/uL Normal 0.83-4.51 [facility] Comment on above: Order Comment: CRITI MONICA VALUE CALLED TO PATRICK MORENO11/03/24 0720 Елена Lewis.RESULTS READ BACK BY SAME. Performed By: #### L 100.0100 ####[facility] [address] [place], [address] Absolute Neut 13.7 X10 3/uL High 2.0-7.7 [facility] Comment on above: Order Comment: CRITI MONICA VALUE CALLED TO PATRICK MORENO11/03/24 0720 Елена Lewis.RESULTS READ BACK BY SAME. Performed By: #### L 100.0100 ####[facility] [address] [place], [address] Basophils/100 WBC (Bld) 0.5 % Normal 0-1 [facility] Comment on above: Order Comment: CRITI MONICA VALUE CALLED TO PATRICK HOOVERTLER11/03/2420 Елена Lewis.RESULTS READ BACK BY SAME. Performed By: #### L 100.0100 ####[facility] [address] [place], [address] Eosinophils/100 WBC (Bld) 0.3 % Normal 0-5 [facility] Comment on above: Order Comment: CRITI MONICA VALUE CALLED TO PATRICK HOOVERTLER11/03/24 0720 Елена Lewis.RESULTS READ BACK BY SAME. Performed By: #### L 100.0100 ####[facility] [address] [place], [address] Erythrocyte distribution width (RBC) [Ratio] 12.9 % Normal 11.6-14.6 [facility] Comment on above: Order Comment: CRITI MONICA VALUE CALLED TO PATRICK PEOPLES 0720 Елена Lewis.RESULTS READ BACK BY SAME. Performed By: #### L 100.0100 ####[facility] [address] [place], [address] Hemoglobin (Bld) [Mass/Vol] 19.2 g/dL Invalid Interpretation Code 12.0-15.0 [facility] Comment on above: Order Comment: CRITI MONICA VALUE CALLED TO PATRICK ODAFNWQ52 0720 Елена Lewis.RESULTS READ BACK BY SAME. Performed By: #### L 100.0100 ####[facility] [address] [place], [address] IG% 0.500 Normal 0.0-0.9 [facility] Comment on above: Order Comment: CRITI MONICA VALUE CALLED TO PATRICK MORENO11/03/24 0720 Елена Lewis.RESULTS READ BACK BY SAME. Result Comment: IG% - Immature Granulocytes (promyelocytes, myelocytes andmetamyelocytes) > 1% indicates that a LEFT SHIFT is Present. Performed By: #### L 100.0100 ####[facility] [address] [place], [address] Lymphocytes/100 WBC (Bld) 13.7 % Low 19-41 [facility] Comment on above: Order Comment: CRITI MONICA VALUE CALLED TO PATRICK HOOVERTLER08 0720 Елена Lewis.RESULTS READ BACK BY SAME. Performed By: #### L 100.0100 ####[facility] [address] [place], [address] MCH (RBC) [Entitic mass] 29.9 pg Normal 27.0-32.0 [facility] Comment on above: Order Comment: CRITI MONICA VALUE CALLED TO PATRICK MORENO08 0720 Елена Joshua.RESULTS READ BACK BY SAME. Performed By: #### L 100.0100 ####[facility] [address] [place], [address] MCHC (RBC) [Mass/Vol] 32.8 g/dL Normal 32-36 [facility] Comment on above: Order Comment: CRITI MONICA VALUE CALLED TO PATRICK MORENO08 0720 Елена Lewis.RESULTS READ BACK BY SAME. Performed By: #### L 100.0100 ####[facility] [address] [place], [address] MCV (RBC) [Entitic vol] 91.1 fL Normal 81-99 [facility] Comment on above: Order Comment: CRITI MONICA VALUE CALLED TO PATRICK MORENO11/03/2420 Елена Lewis.RESULTS READ BACK BY SAME. Performed By: #### L 100.0100 ####[facility] [address] [place], [address] Monocytes/100 WBC (Bld) 7.3 % Normal 0-10 [facility] Comment on above: Order Comment: CRITI MONICA VALUE CALLED TO PATRICK MORENO11/03/2420 Елена Lewis.RESULTS READ BACK BY SAME. Performed By: #### L 100.0100 ####[facility] [address] [place], [address] Neutrophils/100 WBC (Bld) 77.7 % High 47-70 [facility] Comment on above: Order Comment: CRITI MONICA VALUE CALLED TO PATRICK MORENO11/03/2420 Елена Lewis.RESULTS READ BACK BY SAME. Performed By: #### L 100.0100 ####[facility] [address] [place], [address] Nucleated RBC (Bld) [#/Vol] 0 10*3/uL Normal 0-5 [facility] Comment on above: Order Comment: CRITI MONICA VALUE CALLED TO PATRICK MORENO11/03/2420 Елена Lewis.RESULTS READ BACK BY SAME. Performed By: #### L 100.0100 ####[facility] [address] [place], [address] Platelet mean volume (Bld) [Entitic vol] 10.3 fL Normal 6.2-12.0 [facility] Comment on above: Order Comment: CRITI MONICA VALUE CALLED TO PATRICK MORENO11/03/2420 Елена Lewis.RESULTS READ BACK BY SAME. Performed By: #### L 100.0100 ####[facility] [address] [place], [address] Platelets (Bld) [#/Vol] 371 10*3/uL Normal 150-450 [facility] Comment on above: Order Comment: CRITI MONICA VALUE CALLED TO PATRICK MORENO11/03/24719 Елена Lewis.RESULTS READ BACK BY SAME. Performed By: #### L 100.0100 ####[facility] [address] [place], [address] RBC (Bld) [#/Vol] 6.42 10*6/uL High 4.2-5.4 [facility] Comment on above: Order Comment: CRITI MONICA VALUE CALLED TO PATRICK MORENO11/03/2420 Елена Lewis.RESULTS READ BACK BY SAME. Performed By: #### L 100.0100 ####[facility] [address] [place], [address] RDW SD 43.6 fl Normal 35.1-43.9 [facility] Comment on above: Order Comment: CRITI MONICA VALUE CALLED TO PATRICK MORENO11/03/2420 Елена Lewis.RESULTS READ BACK BY SAME. Performed By: #### L 100.0100 ####[facility] [address] [place], [address] WBC (Bld) [#/Vol] 17.6 10*3/uL High 4.4-11.0 [facility] Comment on above: Order Comment: CRITI MONICA VALUE CALLED TO PATRICK MORENO11/03/247[address] Елена Lewis.RESULTS READ BACK BY SAME. Performed By: #### L 100.0100 ####[facility] [address] [place], [address] Carbon dioxide, total [Moles /volume] in Central venous bloodOrdered By: Luis Ravi on 11-03-2024 CO2 [Moles/Vol] 19.6 mmol/L Low 21.0-32.0 [facility] Chloride assayOrdered By: Aurelio Ravi on 11-03-2024 Chloride [Moles/Vol] 99 mmol/L 98-108 [facility] Glomerular filtration rate ( GFR) estimation/1.73 sq m using serum, plasma, or whole bOrdered By: Luis Ravi on 11-03-2024 GFR/1.73 sq M.predicted among non-blacks MDRD (S/P/Bld) [Vol rate/Area] 112 mL/min/{1.73_m2} >60 [facility] Comment on above: mL/min/1.73m2 CKD-EP I Creatinine Equation (2020) Hyaline casts LM.LPF (Urine sed) [#/Area]Ordered By: Lois Domingo on 11-03-2024 Hyaline casts (Urine sed) [#/Area] 0 /[LPF] 0-5 [facility] Ketones Test strip Ql (U)Ord ered By: Lois Domingo on 11-03-2024 Ketones Ql (U) Negative Negative [facility] Microscopic analysis of urin e for red blood cells (RBC)Ordered By: Lois Domingo on 11-03-2024 Microscopic analysis of urine for red blood cells (RBC) 0 SEEN /hpf 0-5 [facility] Mucus LM Ql (Urine sed)Order ed By: Lois Domingo on 11-03-2024 Mucus Ql (Urine sed) 0 SEEN /hpf [facility] Nitrite Test strip Ql (U)Ord ered By: Lois Domingo on 11-03-2024 Nitrite Ql (U) Negative Negative [facility] Potassium measurement (mass/ volume)Ordered By: Luis Ravi on 11-03-2024 Potassium (Unsp spec) [Mass/Vol] 4.0 mmol/L 3.3-5.1 [facility] Comment on above: Hemolysis present, R esults could be affected. Protein Test strip Ql (U)Ord ered By: Lois Domingo on 11-03-2024 Protein Ql (U) 30 mg/dl High Negative [facility] Serum creatinine measurement (mass/volume)Ordered By: Luis Ravi on 11-03-2024 Creatinine [Mass/Vol] 0.69 mg/dL Low 0.70-1.20 [facility] Serum glucose measurement (m ass/volume)Ordered By: Luis Ravi on 11-03-2024 Glucose [Mass/Vol] 122 mg/dL High 70-99 [facility] Serum or plasma calcium sasha urement (mass/volume)Ordered By: Luis Ravi on 11-03-2024 Calcium [Mass/Vol] 10.2 mg/dL 7.6-11.0 [facility] Serum or plasma urea nitroge n measurement (mass/volume)Ordered By: Luis Ravi on 11-03-2024 Urea nitrogen [Mass/Vol] 21 mg/dL High 4-19 [facility] Sodium levelOrdered By: Luis Ravi on 11-03-2024 Sodium [Moles/Vol] 138 mmol/L 133-145 [facility] Squamous epithelial cells de tection in urine sediment by light microscopyOrdered By: Lois Mendozamilton on 11-03-2024 Epithelial cells.squamous LM Ql (Urine sed) 0 SEEN /hpf -10 [facility] Urinalysis, Completeon 11-03 CAST,HYALINE 0-5 SEEN Normal 0-5 [facility] Comment on above: Order Comment: CHANDLER TER SPECIMEN Performed By: #### L 400.0001 ####[facility] [address] [place], [address] BACTERIA 0 SEEN Normal None Seen [facility] Comment on above: Order Comment: CHANDLER TER SPECIMEN Performed By: #### L 400.0001 ####[facility] [address] [place], [address] EPI,SQUAMOUS 0 SEEN Normal 5- [facility] Comment on above: Order Comment: CHANDLER TER SPECIMEN Performed By: #### L 400.0001 ####[facility] [address] [place], [address] Mucus Ql (Urine sed) 0 SEEN Normal [facility] Comment on above: Order Comment: CHANDLER TER SPECIMEN Performed By: #### L 400.0001 ####[facility] [address] [place], [address] RBC 0 SEEN Normal 0-5 [facility] Comment on above: Order Comment: CHANDLER TER SPECIMEN Performed By: #### L 400.0001 ####[facility] [address] [place], [place], [id number] WBC 0 SEEN Normal 0-5 [facility] Comment on above: Order Comment: CHANDLER TER SPECIMEN Performed By: #### L 400.0001 ####[facility] [address] [place], [address] Urine clarityOrdered By: Liz marte Chayo on 11-03-2024 Clarity (U) Clear Clear [facility] Urine color determinationOrd ered By: Lois Domingo on 11-03-2024 Color (U) Yellow Yellow [facility] Urine glucose detectionOrder ed By: Lois Domingo on 11-03-2024 Glucose Ql (U) Normal mg/dl Normal [facility] Urine leukocyte esterase det ection by dipstickOrdered By: Lois Domingo on 11-03-2024 Leukocyte esterase Test strip Ql (U) Negative Negative [facility] Urine pHOrdered By: Lois cruz on 11-03-2024 pH (U) 5.0 [pH] 5.0 - 8.0 [facility] Urine sediment bacteria coun t by microscopy (number/high power field)Ordered By: Lois Domingo on 11-03-2024 Bacteria LM.HPF (Urine sed) [#/Area] 0 /[HPF] None Seen [facility] Urine specific gravity measu rementOrdered By: Lois Domingo on 11-03-2024 Specific gravity (U) [Rel density] 1.025 1.002-1.03 0 [facility] Urine urobilinogen measureme ntOrdered By: Lois Domingo on 11-03-2024 Urobilinogen Ql (U) Normal mg/dl Normal [facility] White blood cell countOrdere d By: Lois Domingo on 11-03-2024 White blood cell count 0 SEEN /hpf 0-5 [facility] Bilirubin, totalOrdered By: Luis Ravi on 11-02-2024 Bilirubin [Mass/Vol] 0.68 mg/dL 0.00-1.30 [facility] CBC W/Diff, Automatedon Absolute Lymph 2.15 X10 3/uL Normal 0.83-4.51 [facility] Comment on above: Performed By: #### L 501.5200, L501.2300, L100.0100, L500.4050 ####[facility] [address] [place], [address] Absolute Neut 12.0 X10 3/uL High 2.0-7.7 [facility] Comment on above: Performed By: #### L 501.5200, L501.2300, L100.0100, L500.4050 ####[facility] [address] [place], [address] Basophils/100 WBC (Bld) 0.4 % Normal 0-1 [facility] Comment on above: Performed By: #### L 501.5200, L501.2300, L100.0100, L500.4050 ####[facility] [address] [place], [address] Eosinophils/100 WBC (Bld) 0.3 % Normal 0-5 [facility] Comment on above: Performed By: #### L 501.5200, L501.2300, L100.0100, L500.4050 ####[facility] [address] [place], [address] Erythrocyte distribution width (RBC) [Ratio] 12.3 % Normal 11.6-14.6 [facility] Comment on above: Performed By: #### L 501.5200, L501.2300, L100.0100, L500.4050 ####[facility] [address] [place], [address] Hematocrit (Bld) [Volume fraction] 53.0 % High 37-47 [facility] Comment on above: Performed By: #### L 501.5200, L501.2300, L100.0100, L500.4050 ####[facility] [address] [place], [address] Hemoglobin (Bld) [Mass/Vol] 17.9 g/dL High 12.0-15.0 [facility] Comment on above: Performed By: #### L 501.5200, L501.2300, L100.0100, L500.4050 ####[facility] [address] [place], [address] IG% 0.300 Normal 0.0-0.9 [facility] Comment on above: Result Comment: IG% - Immature Granulocytes (promyelocytes, myelocytes andmetamyelocytes) > 1% indicates that a LEFT SHIFT is Present. Performed By: #### L 501.5200, L501.2300, L100.0100, L500.4050 ####[facility] [address] [place], [address] Lymphocytes/100 WBC (Bld) 14.2 % Low 19-41 [facility] Comment on above: Performed By: #### L 501.5200, L501.2300, L100.0100, L500.4050 ####[facility] [address] [place], [address] MCH (RBC) [Entitic mass] 30.2 pg Normal 27.0-32.0 [facility] Comment on above: Performed By: #### L 501.5200, L501.2300, L100.0100, L500.4050 ####[facility] [address] [place], [address] MCHC (RBC) [Mass/Vol] 33.8 g/dL Normal 32-36 [facility] Comment on above: Performed By: #### L 501.5200, L501.2300, L100.0100, L500.4050 ####[facility] [address] [place], [address] MCV (RBC) [Entitic vol] 89.5 fL Normal 81-99 [facility] Comment on above: Performed By: #### L 501.5200, L501.2300, L100.0100, L500.4050 ####[facility] [address] [place], [address] Monocytes/100 WBC (Bld) 5.7 % Normal 0-10 [facility] Comment on above: Performed By: #### L 501.5200, L501.2300, L100.0100, L500.4050 ####[facility] [address] [place], [address] Neutrophils/100 WBC (Bld) 79.1 % High 47-70 [facility] Comment on above: Performed By: #### L 501.5200, L501.2300, L100.0100, L500.4050 ####[facility] [address] [place], [address] Nucleated RBC (Bld) [#/Vol] 0 10*3/uL Normal 0-5 [facility] Comment on above: Performed By: #### L 501.5200, L501.2300, L100.0100, L500.4050 ####[facility] [address] [place], [address] Platelet mean volume (Bld) [Entitic vol] 10.2 fL Normal 6.2-12.0 [facility] Comment on above: Performed By: #### L 501.5200, L501.2300, L100.0100, L500.4050 ####[facility] [address] [place], [address] Platelets (Bld) [#/Vol] 345 10*3/uL Normal 150-450 [facility] Comment on above: Performed By: #### L 501.5200, L501.2300, L100.0100, L500.4050 ####[facility] [address] [place], [address] RBC (Bld) [#/Vol] 5.92 10*6/uL High 4.2-5.4 [facility] Comment on above: Performed By: #### L 501.5200, L501.2300, L100.0100, L500.4050 ####[facility] [address] [place], [address] RDW SD 40.8 fl Normal 35.1-43.9 [facility] Comment on above: Performed By: #### L 501.5200, L501.2300, L100.0100, L500.4050 ####[facility] [address] [place], [address] WBC (Bld) [#/Vol] 15.1 10*3/uL High 4.4-11.0 [facility] Comment on above: Performed By: #### L 501.5200, L501.2300, L100.0100, L500.4050 ####[facility] [address] [place], [address] Comprehensive Metabolic Prof [facility] 11-02-2024 Albumin [Mass/Vol] 4.6 g/dL Normal 3.5-5.0 [facility] Comment on above: Performed By: #### L 501.5200, L501.2300, L100.0100, L500.4050 ####[facility] [address] [place], [address] Albumin/Globulin [Mass ratio] 1.4 {ratio} Normal 0.9-2.4 [facility] Comment on above: Performed By: #### L 501.5200, L501.2300, L100.0100, L500.4050 ####[facility] [address] [place], [address] ALK PHOS 103 U/L Normal 35-104 [facility] Comment on above: Performed By: #### L 501.5200, L501.2300, L100.0100, L500.4050 ####[facility] [address] [place], [address] ALT [Catalytic activity/Vol] 15 U/L Normal <=34 [facility] Comment on above: Performed By: #### L 501.5200, L501.2300, L100.0100, L500.4050 ####[facility] [address] [place], [address] AST [Catalytic activity/Vol] 19 U/L Normal <=31 [facility] Comment on above: Performed By: #### L 501.5200, L501.2300, L100.0100, L500.4050 ####[facility] [address] [place], [address] Bilirubin [Mass/Vol] 0.68 mg/dL Normal 0.00-1.30 [facility] Comment on above: Performed By: #### L 501.5200, L501.2300, L100.0100, L500.4050 ####[facility] [address] [place], [address] BUN/CRE 19.1 RATIO Normal 10-20 [facility] Comment on above: Performed By: #### L 501.5200, L501.2300, L100.0100, L500.4050 ####[facility] [address] [place], [address] Calcium [Mass/Vol] 9.8 mg/dL Normal 7.6-11.0 [facility] Comment on above: Performed By: #### L 501.5200, L501.2300, L100.0100, L500.4050 ####[facility] [address] [place], [address] Chloride [Moles/Vol] 104 mmol/L Normal 98-108 [facility] Comment on above: Performed By: #### L 501.5200, L501.2300, L100.0100, L500.4050 ####[facility] [address] [place], [address] CO2 [Moles/Vol] 20.0 mmol/L Low 21.0-32.0 [facility] Comment on above: Performed By: #### L 501.5200, L501.2300, L100.0100, L500.4050 ####[facility] [address] [place], [address] Creatinine [Mass/Vol] 0.56 mg/dL Low 0.70-1.20 [facility] Comment on above: Performed By: #### L 501.5200, L501.2300, L100.0100, L500.4050 ####[facility] [address] [place], [address] ECRCL 130.27 ml/min Normal 50-250 [facility] Comment on above: Performed By: #### L 501.5200, L501.2300, L100.0100, L500.4050 ####[facility] [address] [place], [address] GAP 14 Normal 5-15 [facility] Comment on above: Performed By: #### L 501.5200, L501.2300, L100.0100, L500.4050 ####[facility] [address] [place], [address] GFR/1.73 sq M.predicted among non-blacks MDRD (S/P/Bld) [Vol rate/Area] 118 mL/min/{1.73_m2} Normal >60 [facility] Comment on above: Result Comment: mL/m in/1.73m2 CKD-EPI Creatinine Equation (2020) Performed By: #### L 501.5200, L501.2300, L100.0100, L500.4050 ####[facility] [address] [place], [address] Globulin (S) [Mass/Vol] 3.2 g/dL Normal 2.2-4.2 [facility] Comment on above: Performed By: #### L 501.5200, L501.2300, L100.0100, L500.4050 ####[facility] [address] [place], [address] Glucose [Mass/Vol] 152 mg/dL High 70-99 [facility] Comment on above: Performed By: #### L 501.5200, L501.2300, L100.0100, L500.4050 ####[facility] [address] [place], [address] Potassium [Moles/Vol] 3.7 mmol/L Normal 3.3-5.1 [facility] Comment on above: Performed By: #### L 501.5200, L501.2300, L100.0100, L500.4050 ####[facility] [address] [place], [address] Sodium [Moles/Vol] 138 mmol/L Normal 133-145 [facility] Comment on above: Performed By: #### L 501.5200, L501.2300, L100.0100, L500.4050 ####[facility] [address] [place], [address] T PROT 7.7 g/dL Normal 5.9-8.4 [facility] Comment on above: Performed By: #### L 501.5200, L501.2300, L100.0100, L500.4050 ####[facility] [address] [place], [address] Urea nitrogen [Mass/Vol] 11 mg/dL Normal 4-19 [facility] Comment on above: Performed By: #### L 501.5200, L501.2300, L100.0100, L500.4050 ####[facility] [address] [place], [address] Laboratory - Chemistry and C hemistry - challengeOrdered By: Luis Ravi on 11-02-2024 AST [Catalytic activity/Vol] 19 U/L <32 [facility] Magnesiumon 11-02-2024 Magnesium [Mass/Vol] 2.4 mg/dL High 1.5-2.2 [facility] Comment on above: Performed By: #### L 501.5200, L501.2300, L100.0100, L500.4050 ####[facility] [address] [place], [address] Magnesium measurement (mass/ volume)Ordered By: Luis Ravi on 11-02-2024 Magnesium (Unsp spec) [Mass/Vol] 2.4 mg/dL High 1.5-2.2 [facility] Phosphoruson 11-02-2024 Phosphate [Mass/Vol] 3.6 mg/dL Normal 2.7-4.5 [facility] Comment on above: Performed By: #### L 501.5200, L501.2300, L100.0100, L500.4050 ####[facility] [address] [place], [address] Serum globulin measurementOr dered By: Luis Ravi on 11-02-2024 Globulin (S) [Mass/Vol] 3.2 g/dL 2.2-4.2 [facility] Serum or plasma alanine quintana otransferase (ALT) measurementOrdered By: Luis Ravi on 11-02-2024 ALT [Catalytic activity/Vol] 15 U/L <35 [facility] Serum or plasma albumin sasha urement (mass/volume)Ordered By: Luis Ravi 11-02-2024 Albumin [Mass/Vol] 4.6 g/dL 3.5-5.0 [facility] Serum or plasma albumin/glob ulin mass ratioOrdered By: Lius Ravi 11-02-2024 Albumin/Globulin [Mass ratio] 1.4 {ratio} 0.9-2.4 [facility] Serum or plasma alkaline malvin sphatase measurementOrdered By: Luis Ravi on 11-02-2024 ALP [Catalytic activity/Vol] 103 U/L 35-104 [facility] Total proteinOrdered By: Luis Ravi on 11-02-2024 Protein [Mass/Vol] 7.7 g/dL 5.9-8.4 [facility] Absolute lymphocyte countOrd ered By: Sen Clarke on 11-01-2024 Lymphocytes Auto (Unsp spec) [#/Vol] 2.74 10*3/uL 0.83-4.51 [facility] Absolute neutrophil countOrd ered By: Sen Clarke on 11-01-2024 Neutrophils (Bld) [#/Vol] 8.9 10*3/uL High 2.0-7.7 [facility] Anion gap in Serum or Plasma Ordered By: Vee Stuart on 11-01-2024 Anion gap [Moles/Vol] 14 mmol/L 5-15 [facility] Automated lymphocyte count a s percentage of total leukocytesOrdered By: Sen Clarke on 11-01-2024 Lymphocytes/100 WBC Auto (Unsp spec) 21.5 % 19-41 [facility] BUN/creatinine ratioOrdered By: Vee Stuart on 11-01-2024 Urea nitrogen/Creatinine [Mass ratio] 13.4 mg/mg 10-20 [facility] Basic Metabolic Profile (BMP )on 11-01-2024 BUN/CRE 13.4 RATIO Normal - [facility] Comment on above: Order Comment: CIARA Perez PREVIOUS SPECIMEN REJECTED DUE TOHEMOLYSIS. 11/01/24738 Tong Pope Performed By: #### L 500.2500 ####[facility] [address] [place], [place], [id number] Calcium [Mass/Vol] 9.2 mg/dL Normal 7.6-11.0 [facility] Comment on above: Order Comment: CIARA Miller. PREVIOUS SPECIMEN REJECTED DUE TOHEMOLYSIS. 11/01/24738 Tong Mccormick. Performed By: #### L 500.2500 ####[facility] [address] [place], [address] Chloride [Moles/Vol] 106 mmol/L Normal 98-108 [facility] Comment on above: Order Comment: REDRA W. PREVIOUS SPECIMEN REJECTED DUE TOHEMOLYSIS. 11/01/24738 Tong Mccormick. Performed By: #### L 500.2500 ####[facility] [address] [place], [place], [phone] CO2 [Moles/Vol] 20.1 mmol/L Low 21.0-32.0 [facility] Comment on above: Order Comment: REDRA W. PREVIOUS SPECIMEN REJECTED DUE TOHEMOLYSIS. 11/01/24738 Tong Castañeda Jace. Performed By: #### L 500.2500 ####[facility] [address] [place], [place], [phone] Creatinine [Mass/Vol] 0.59 mg/dL Low 0.70-1.20 [facility] Comment on above: Order Comment: REDRA W. PREVIOUS SPECIMEN REJECTED DUE TOHEMOLYSIS. 11/01/24738 Tong Castañeda Jace. Performed By: #### L 500.2500 ####[facility] [address] [place], [place], [phone] ECRCL 127.93 ml/min Normal 50-250 [facility] Comment on above: Order Comment: REDRA W. PREVIOUS SPECIMEN REJECTED DUE TOHEMOLYSIS. 11/01/24738 Tong Garry Jace. Performed By: #### L 500.2500 ####[facility] [address] [place], [address] GAP 14 Normal 5-15 [facility] Comment on above: Order Comment: REDRA W. PREVIOUS SPECIMEN REJECTED DUE TOHEMOLYSIS. 11/01/24738 Tong Castañeda Jace. Performed By: #### L 500.2500 ####[facility] [address] [place], [place], [phone] GFR/1.73 sq M.predicted among non-blacks MDRD (S/P/Bld) [Vol rate/Area] 116 mL/min/{1.73_m2} Normal >60 [facility] Comment on above: Order Comment: REDRA W. PREVIOUS SPECIMEN REJECTED DUE TOHEMOLYSIS. 11/01/24738 Tong Mccormick. Result Comment: mL/m in/1.73m2 CKD-EPI Creatinine Equation (2020) Performed By: #### L 500.2500 ####[facility] [address] [place], [address] Glucose [Mass/Vol] 140 mg/dL High 70-99 [facility] Comment on above: Order Comment: REDRA W. PREVIOUS SPECIMEN REJECTED DUE TOHEMOLYSIS. 11/01/24738 Tong Mccormick. Performed By: #### L 500.2500 ####[facility] [address] [place], [address] Potassium [Moles/Vol] 3.6 mmol/L Normal 3.3-5.1 [facility] Comment on above: Order Comment: REDRA W. PREVIOUS SPECIMEN REJECTED DUE TOHEMOLYSIS. 11/01/24738 Tong Mccormick. Performed By: #### L 500.2500 ####[facility] [address] [place], [address] Sodium [Moles/Vol] 140 mmol/L Normal 133-145 [facility] Comment on above: Order Comment: REDRA W. PREVIOUS SPECIMEN REJECTED DUE TOHEMOLYSIS. 11/01/24738 Tong Mccormick. Performed By: #### L 500.2500 ####[facility] [address] [place], [address] Urea nitrogen [Mass/Vol] 8 mg/dL Normal 4-19 [facility] Comment on above: Order Comment: REDRA W. PREVIOUS SPECIMEN REJECTED DUE TOHEMOLYSIS. 11/01/24738 Tong Mccormick. Performed By: #### L 500.2500 ####[facility] [address] [place], [address] BUN Normal 4-19 [facility] Comment on above: Result Comment: This specimen has been REJECTED due to Laboratory criteria:Hemolyzed.NESS BURNETT has been notified of need of recollection.11/01/24736 Tong L White Performed By: #### L 100.0100, L500.2500 ####[facility] [address] [place], [address] BUN/CRE Normal 10-20 [facility] Comment on above: Result Comment: This specimen has been REJECTED due to Laboratory criteria:Hemolyzed.NESS BURNETT has been notified of need of recollection.11/01/24736 Tong L White Performed By: #### L 100.0100, L500.2500 ####[facility] [address] [place], [address] Calcium Normal 7.6-11.0 [facility] Comment on above: Result Comment: This specimen has been REJECTED due to Laboratory criteria:Hemolyzed.NESS BURNETT has been notified of need of recollection.11/01/24736 Tong L White Performed By: #### L 100.0100, L500.2500 ####[facility] [address] [place], [address] CL Normal 98-108 [facility] Comment on above: Result Comment: This specimen has been REJECTED due to Laboratory criteria:Hemolyzed.NESS BURNETT has been notified of need of recollection.11/01/24736 Tong L White Performed By: #### L 100.0100, L500.2500 ####[facility] [address] [place], [address] CO2 Normal 21.0-32.0 [facility] Comment on above: Result Comment: This specimen has been REJECTED due to Laboratory criteria:Hemolyzed.NESS BURNETT has been notified of need of recollection.11/01/24736 Tong L White Performed By: #### L 100.0100, L500.2500 ####[facility] [address] [place], [address] CREAT,SERUM Normal 0.70-1.20 [facility] Comment on above: Result Comment: This specimen has been REJECTED due to Laboratory criteria:Hemolyzed.NESS BURNETT has been notified of need of recollection.11/01/2437 Tong L White Performed By: #### L 100.0100, L500.2500 ####[facility] [address] [place], [address] eGFR Normal >60 [facility] Comment on above: Result Comment: This specimen has been REJECTED due to Laboratory criteria:Hemolyzed.NESS BURNETT has been notified of need of recollection.11/01/24736 Tong L White Performed By: #### L 100.0100, L500.2500 ####[facility] [address] [place], [address] GAP Normal 5-15 [facility] Comment on above: Result Comment: This specimen has been REJECTED due to Laboratory criteria:Hemolyzed.NESS BURNETT has been notified of need of recollection.11/01/24736 Tong L White Performed By: #### L 100.0100, L500.2500 ####[facility] [address] [place], [address] GLU Normal 70-99 [facility] Comment on above: Result Comment: This specimen has been REJECTED due to Laboratory criteria:Hemolyzed.NESS BURNETT has been notified of need of recollection.11/01/24736 Tong L White Performed By: #### L 100.0100, L500.2500 ####[facility] [address] [place], [address] Potassium Normal 3.3-5.1 [facility] Comment on above: Result Comment: This specimen has been REJECTED due to Laboratory criteria:Hemolyzed.NESS BURNETT has been notified of need of recollection.11/01/24736 Tong L White Performed By: #### L 100.0100, L500.2500 ####[facility] [address] [place], [address] Basic Metabolic Profile (BMP) Normal 133-145 [facility] Comment on above: Result Comment: This specimen has been REJECTED due to Laboratory criteria:Hemolyzed.NESS BURNETT has been notified of need of recollection.11/01/24 0737 Tong Mccormick Performed By: #### L 100.0100, L500.2500 ####[facility] [address] [place], [address] Basophil percentageOrdered B y: Sen Clarke on 11-01-2024 Basophils/100 WBC (Bld) 0.3 % 0-1 [facility] CBC W/Diff, Automatedon -2024 Absolute Lymph 2.74 X10 3/uL Normal 0.83-4.51 [facility] Comment on above: Performed By: #### L 100.0100, L500.2500 ####[facility] [address] [place], [address] Absolute Neut 8.9 X10 3/uL High 2.0-7.7 [facility] Comment on above: Performed By: #### L 100.0100, L500.2500 ####[facility] [address] [place], [address] Basophils/100 WBC (Bld) 0.3 % Normal 0-1 [facility] Comment on above: Performed By: #### L 100.0100, L500.2500 ####[facility] [address] [place], [address] Eosinophils/100 WBC (Bld) 0.8 % Normal 0-5 [facility] Comment on above: Performed By: #### L 100.0100, L500.2500 ####[facility] [address] [place], [address] Erythrocyte distribution width (RBC) [Ratio] 12.0 % Normal 11.6-14.6 [facility] Comment on above: Performed By: #### L 100.0100, L500.2500 ####[facility] [address] [place], [address] Hematocrit (Bld) [Volume fraction] 47.1 % High 37-47 [facility] Comment on above: Performed By: #### L 100.0100, L500.2500 ####[facility] [address] [place], [address] Hemoglobin (Bld) [Mass/Vol] 16.2 g/dL High 12.0-15.0 [facility] Comment on above: Performed By: #### L 100.0100, L500.2500 ####[facility] [address] [place], [address] IG% 0.400 Normal 0.0-0.9 [facility] Comment on above: Result Comment: IG% - Immature Granulocytes (promyelocytes, myelocytes andmetamyelocytes) > 1% indicates that a LEFT SHIFT is Present. Performed By: #### L 100.0100, L500.2500 ####[facility] [address] [place], [address] Lymphocytes/100 WBC (Bld) 21.5 % Normal 19-41 [facility] Comment on above: Performed By: #### L 100.0100, L500.2500 ####[facility] [address] [place], [address] MCH (RBC) [Entitic mass] 30.5 pg Normal 27.0-32.0 [facility] Comment on above: Performed By: #### L 100.0100, L500.2500 ####[facility] [address] [place], [address] MCHC (RBC) [Mass/Vol] 34.4 g/dL Normal 32-36 [facility] Comment on above: Performed By: #### L 100.0100, L500.2500 ####[facility] [address] [place], [address] MCV (RBC) [Entitic vol] 88.7 fL Normal 81-99 [facility] Comment on above: Performed By: #### L 100.0100, L500.2500 ####[facility] [address] [place], [address] Monocytes/100 WBC (Bld) 7.5 % Normal 0-10 [facility] Comment on above: Performed By: #### L 100.0100, L500.2500 ####[facility] [address] [place], [address] Neutrophils/100 WBC (Bld) 69.5 % Normal 47-70 [facility] Comment on above: Performed By: #### L 100.0100, L500.2500 ####[facility] [address] [place], [address] Nucleated RBC (Bld) [#/Vol] 0 10*3/uL Normal 0-5 [facility] Comment on above: Performed By: #### L 100.0100, L500.2500 ####[facility] [address] [place], [address] Platelet mean volume (Bld) [Entitic vol] 10.4 fL Normal 6.2-12.0 [facility] Comment on above: Performed By: #### L 100.0100, L500.2500 ####[facility] [address] [place], [address] Platelets (Bld) [#/Vol] 290 10*3/uL Normal 150-450 [facility] Comment on above: Performed By: #### L 100.0100, L500.2500 ####[facility] [address] [place], [address] RBC (Bld) [#/Vol] 5.31 10*6/uL Normal 4.2-5.4 [facility] Comment on above: Performed By: #### L 100.0100, L500.2500 ####[facility] [address] [place], [address] RDW SD 39.5 fl Normal 35.1-43.9 [facility] Comment on above: Performed By: #### L 100.0100, L500.2500 ####[facility] [address] [place], [address] WBC (Bld) [#/Vol] 12.7 10*3/uL High 4.4-11.0 [facility] Comment on above: Performed By: #### L 100.0100, L500.2500 ####[facility] [address] [place], [address] Carbon dioxide, total [Moles /volume] in Central venous bloodOrdered By: Vee Stuart on 11-01-2024 CO2 [Moles/Vol] 20.1 mmol/L Low 21.0-32.0 [facility] Chloride assayOrdered By: Stan Stuart on 11-01-2024 Chloride [Moles/Vol] 106 mmol/L 98-108 [facility] Discharge Instructionon 08-0 Discharge Instruction Normal [facility] Eosinophil percentageOrdered By: Sen Clarke on 11-01-2024 Eosinophils/100 WBC (Bld) 0.8 % 0-5 [facility] Erythrocyte distribution wid th ratioOrdered By: Sen Clarke on 11-01-2024 Erythrocyte distribution width (RBC) [Ratio] 12.0 % 11.6-14.6 [facility] Erythrocyte distribution wid th standard deviationOrdered By: Sen Clarke on 11-01-2024 Erythrocyte distribution width (RBC) [Ratio] 39.5 fl 35.1-43.9 [facility] Glomerular filtration rate ( GFR) estimation/1.73 sq m using serum, plasma, or whole bOrdered By: Vee Stuart on 11-01-2024 GFR/1.73 sq M.predicted among non-blacks MDRD (S/P/Bld) [Vol rate/Area] 116 mL/min/{1.73_m2} >60 [facility] Comment on above: mL/min/1.73m2 CKD-EP I Creatinine Equation (2020) Hematocrit Auto (Bld) [Volum e fraction]Ordered By: Sen Clarke on 11-01-2024 Hematocrit (Bld) [Volume fraction] 47.1 % High 37-47 [facility] Hemoglobin measurementOrdere d By: Sen Clarke on 11-01-2024 Hemoglobin (Bld) [Mass/Vol] 16.2 g/dL High 12.0-15.0 [facility] Immature granulocytes/100 WB C Auto (Bld)Ordered By: Sen Clarke on 11-01-2024 Immature granulocytes/100 WBC (Bld) 0.400 % 0.0-0.9 [facility] Comment on above: IG% - Immature Granu locytes (promyelocytes, myelocytes and metamyelocytes) > 1% indicates that a LEFT SHIFT is Present. MCV (mean corpuscular volume ) determinationOrdered By: Sen Clarke on 11-01-2024 MCV (RBC) [Entitic vol] 88.7 fL 81-99 [facility] Mean corpuscular hemoglobin (MCH) determinationOrdered By: Sen Clarke on 11-01-2024 MCH (RBC) [Entitic mass] 30.5 pg 27.0-32.0 [facility] Mean corpuscular hemoglobin concentration (MCHC) determinationOrdered By: Sen Clarke on 11-01-2024 MCHC (RBC) [Mass/Vol] 34.4 g/dL 32-36 [facility] Mean platelet volume determi nationOrdered By: Sen Clarke on 11-01-2024 Platelet mean volume (Bld) [Entitic vol] 10.4 fL 6.2-12.0 [facility] Monocyte percentageOrdered B y: Sen Clarke on 11-01-2024 Monocytes/100 WBC (Bld) 7.5 % 0-10 [facility] Neutrophil percentageOrdered By: Sen Clarke on 11-01-2024 Neutrophils/100 WBC (Bld) 69.5 % 47-70 [facility] Nucleated red blood cell per centageOrdered By: Sen Clarke on 11-01-2024 Nucleated RBC/100 WBC (Bld) [Ratio] 0 % 0-5 [facility] Platelet countOrdered By: Amita Clarke on 11-01-2024 Platelets (Bld) [#/Vol] 290 10*3/uL 150-450 [facility] Potassium measurement (mass/ volume)Ordered By: Vee Stuart on 11-01-2024 Potassium (Unsp spec) [Mass/Vol] 3.6 mmol/L 3.3-5.1 [facility] RBC Auto (Bld) [#/Vol]Ordere d By: Sen Clarke on 11-01-2024 RBC (Bld) [#/Vol] 5.31 10*6/uL 4.2-5.4 [facility] Serum creatinine measurement (mass/volume)Ordered By: Vee Stuart on 11-01-2024 Creatinine [Mass/Vol] 0.59 mg/dL Low 0.70-1.20 [facility] Serum glucose measurement (m ass/volume)Ordered By: Vee Stuart on 11-01-2024 Glucose [Mass/Vol] 140 mg/dL High 70-99 [facility] Serum or plasma calcium sasha urement (mass/volume)Ordered By: Vee Stuart on 11-01-2024 Calcium [Mass/Vol] 9.2 mg/dL 7.6-11.0 [facility] Serum or plasma urea nitroge n measurement (mass/volume)Ordered By: Vee Stuart on 11-01-2024 Urea nitrogen [Mass/Vol] 8 mg/dL 4-19 [facility] Sodium levelOrdered By: Aron Stuart on 11-01-2024 Sodium [Moles/Vol] 140 mmol/L 133-145 [facility] White blood cell (WBC) count Ordered By: Sen Clarke on 11-01-2024 WBC (Bld) [#/Vol] 12.7 10*3/uL High 4.4-11.0 [facility] Brain without Contraston Brain without Contrast Normal [facility] Calculated very low density lipoprotein (VLDL) cholesterol measurementOrdered By: Nehemiah Medrano on 10-31-2024 Calculated very low density lipoprotein (VLDL) cholesterol measurement 40 mg/dL 5-40 [facility] Echo Transesophageal (SUNDAY)on 10-31-2024 Echo Transesophageal (SUNDAY) Normal [facility] Echocardiogram study reportO rdered By: Law Eduardo on 10-31-2024 Study report [facility] [address] [place] [address] Echo Complete 10/31/24 1012 MR#: [id number] Acct: [id number] Name: JAYDA OSHEA Rep #:[id number] : 1985 39 From: Law Roque Attending [...] Date Dictated: 10/31/24 1012 Date Transcribed: 10/31/241658 Market Analyst: Signed [facility] Work Phone: Electrocardiogram reportOrde red By: Law Eduardo on 10-31-2024 EKG study [facility] Cardi[facility] Services [address] [place] [address] 12 Lead EKG 10/30/242056 MR#: [id number] Acct: [id number] Name: JAYDA OSHEA Rep #:[id number] : 1985 39 From: Law Eduardo MD Attending Dr: Dr. Sen Clarke MD Status: ADM IN Ordering Dr: Domenico Silva DO Date: 0 10/30/24 Location: [facility] Sex: F C Admitted: 10/30/24 Test Reason : STROKE Blood Pressure : */* mmHG Vent. Rate : 73 BPM Atrial Rate : 73 BPM P-R Int : 152 ms QRS Dur : 94 ms QT Int : 428 ms P-R-T Axes : 33 26 51 degrees QTcB Int : 471 ms Normal sinus rhythm Normal ECG Confirmed by LAW EDUARDO MD ([id number]), book editor VELIA VILLA ([id number]) on 58:43:28 AM Referred By: Confirmed By: LAW EDUARDO MD 10/31/24 0843 Date _ Law Eduardo MD CC: Dr. Domenico Silva, DO; Dr. Sen Clarke MD; No Primary Care Physician ~ Signed [facility] Work Phone: Folates,Serum (Folic Acid)on 10-31-2024 FOLATES,SERUM 7.69 ng/mL Normal 4.60-34.80 [facility] Comment on above: Result Comment: Hemo lysis, Results will be affected, Requires Recollection. Performed By: #### L 505.5000, L501.9985, L501.9520, L506.0200 ####[facility] [address] [place], [place], [address] Hemoglobin A1con 10-31-2024 HbA1c (Bld) [Mass fraction] 5.4 % Normal <=5.6 [facility] Comment on above: Result Comment: Norm al < 5.7 % Prediabetic 5.7 - 6.4 % Diabetic >or= 6.5 % Please note range changes. Performed By: #### L 505.5000, L501.9985, L501.9520, L506.0200 ####[facility] [address] [place], [place], [address] LDL calc ser/plasOrdered By: Nehemiah Medrano on 10-31-2024 Cholesterol in LDL [Mass/Vol] 108 mg/dL [facility] Comment on above: Ebadulximl=287-993 m g/dL & Higher Sdst=645 mg/dL or greaterFriedwald Equation for LDL-C Lipid Profileon 10-31-2024 CHOL:HDL 3.43 Normal [facility] Comment on above: Performed By: #### L 500.4100 ####[facility] [address] [place], [place], [address] Cholesterol [Mass/Vol] 209 mg/dL High <=200 [facility] Comment on above: Result Comment: Chol esterol level, Desirable <200 mg/dLBorderline high cholesterol 200-239 mg/dLHigh cholesterol >=240 mg/dLRecommendations of the NCEP Adult Treatment Panel for thefollowing risk-cutoff thresholds for the US Americanpopulation. Performed By: #### L 500.4100 ####[facility] [address] [facility] [address] Cholesterol in HDL [Mass/Vol] 61 mg/dL Normal [facility] Comment on above: Result Comment: [place] onal Cholesterol Education Program (NCEP) guidelines:<40 mg/dL: Low HDL-cholesterol (major risk factor for CHD)>= 60 mg/dL: High HDL-cholesterol (negative risk factor forCHD)HDL-cholesterol is affected by a number of factors, e.g.smoking, exercise, hormones, sex and age. Performed By: #### L 500.4100 ####[facility] [address] [place] [id number] Cholesterol in LDL [Mass/Vol] 108 mg/dL Normal [facility] Comment on above: Result Comment: Bord dsccmu=808-950 mg/dL Higher Pkml=484 mg/dL or greaterFriedwald Equation for LDL-C Performed By: #### L 500.4100 ####[facility] [address] [place], [address] Cholesterol in VLDL [Mass/Vol] 40 mg/dL Normal 5-40 [facility] Comment on above: Performed By: #### L 500.4100 ####[facility] [address] [place], [address] Triglyceride [Mass/Vol] 201 mg/dL High [facility] Comment on above: Result Comment: The drugs N-Acetylcysteine and Metamizole may falselydepress this assay.Normal range: <150 mg/dLBorderline High: 150-199 mg/dLHigh: 200-499 mg/dLVery High: >500 mg/dL Performed By: #### L 500.4100 ####[facility] [address] [place], [address] MR/CON.PCM.NEon 10-31-2024 MR/CON.PCM.NE Normal [facility] Magnetic resonance imaging r eportOrdered By: Richi Andre on 10-31-2024 Study report [facility] Imaging Services [address] [place] [address] Brain without Contrast MR#: [id number] Acct: [id number] Name: JAYDA OSHEA Rep #: [id number] : 1985 F 39 From: Yoko Andre MD PCP: Care Physician,No Primary Status: ADM IN Study:Brain without Contrast Date of Exam: 10/31/24 Exam# [id number] Ordering Dr: Nehemiah Lorenz DO EXAM: BRAIN [...] Haney, DO; No Primary Care Physician ~ Market Analyst: Signed [facility] No Panel InformationOrdered By: Nehemiah Medarno on 10-31-2024 JAK2 Mutation Comment . [facility] Comment on above: Technical Component performed at [employer] RTPProfessional Component performed by:Lisbet Price, PhD, FACMGDirector, Molecular OncologyLabco [id number], [address] [facility] [phone] test was developed and its performance characteristicsdetermined by [employer]. It has not been cleared orapproved by the Food and Drug Administration.Performed at: [facility] [employer] [id number] [employer] [facility], [place], [place] [id number] Director: Neil Campos [facility], Phone: [phone] at: [facility] [employer] [id number] [employer], [facility], [place] [id number] Director: hair Campos [facility], Phone: [phone] JAK2 V617F Reviewed By Comment . [facility] Comment on above: JAK2 is a cytoplasmi c tyrosine kinase with a connell role insignal transduction from multiple hematopoietic growthfactor receptors. 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 The [employer] Absolute Quantitation softwarewill compare the patient specimen valuse to the standardcurves and generate percent values for wild type andmutant type. In vitro studies have indicated that thisassay has an analytical sensitivity of 1%.References:Solo EJ, Roger BAIG, Macho PJ, et al. Acquiredmutation of the tyrosine kinase JAK2 in humanmyeloproliferative disorders. Lancet. 2005 Jun 19;365(3163):5830-7645. Tong Bolden, Geraldo Jean-Baptiste, Adelina Curry JP. Aunique clonal JAK2 mutation leading to constitutivesignaling causes polycythaemia vera. Nature. 2005 Jul 29;246(4620):8271-0198.Maryann R, Aly F, Joseph , et al. A ofzx-br-qpwrzvvc mutation of JAK2 in myeloproliferative disorders.N Engl J Med. 2005 Jul 29; 352(26):6138-1919. Screening total cholesterol/ high density lipoprotein (HDL) cholesterol ratioOrdered By: Nehemiah Medrano on 10-31-2024 Cholesterol.total/Chol esterol in HDL [Mass ratio] 3.43 {ratio} [facility] Serum or plasma cholesterol in HDL measurement (mass/volume)Ordered By: Nehemiah Medrano on 10-31-2024 Cholesterol in HDL [Mass/Vol] 61 mg/dL >40 [facility] Comment on above: National Cholesterol Education Program (NCEP) guidelines:<40 mg/dL: Low HDL-cholesterol (major risk factor for CHD)>= 60 mg/dL: High HDL-cholesterol (negative risk factor for CHD)HDL-cholesterol is affected by a number of factors, e.g. smoking, exercise, hormones, sex and age. Serum or plasma cholesterol measurement (mass/volume)Ordered By: Nehemiah Medrano on 10-31-2024 Cholesterol [Mass/Vol] 209 mg/dL High <201 [facility] Comment on above: Cholesterol level, D esirable <200 mg/dLBorderline high cholesterol 200-239 mg/dLHigh cholesterol >=240 mg/dLRecommendations of the NCEP Adult Treatment Panel for the following risk-cutoff thresholds for the [place] Citizen Of [place] population. Thyroid Stim Hormone (TSH)on 10-31-2024 TSH 3.230 uIU/mL Normal 0.300-4.20 0 [facility] Comment on above: Performed By: #### L 505.5000, L501.9985, L501.9520, L506.0200 ####[facility] [address] [place], [place], [address] Triglycerides measurementOrd ered By: Nehemiah Medrano on 10-31-2024 Triglyceride [Mass/Vol] 201 mg/dL High <199 [facility] Comment on above: The drugs N-Acetylcy steine and Metamizole may falsely depress this assay. Normal range: <150 mg/dLBorderline High: 150-199 mg/dLHigh: 200-499 mg/dLVery High: >500 mg/dL Troponin T HS 4 HRon 025 Trop T High Sen Normal <=14 [facility] Comment on above: Result Comment: CANC ELLATION ORDER Performed By: #### L 499.0043 ####[facility] [address] [place], [place], [id number] Urine Drug Screen (VISTA)on 10-31-2024 AMPHETAMINES Positive Normal <1000 ng/mL [facility] Comment on above: Result Comment: If c onfirmation testing is needed, a separate order will berequired to send out testing to the reference laboratory. Performed By: #### L 505.5000, L501.9985, L501.9520, L506.0200 ####[facility] [address] [place], [place], [address] BARBITIURATES Negative Normal < 200 ng/mL [facility] Comment on above: Performed By: #### L 505.5000, L501.9985, L501.9520, L506.0200 ####[facility] [address] [place], [address] BENZODIAZIPINE Negative Normal < 200 ng/mL [facility] Comment on above: Performed By: #### L 505.5000, L501.9985, L501.9520, L506.0200 ####[facility] [address] [place], [address] BUP Ur Drug Scr Negative Normal < 200 ng/mL [facility] Comment on above: Performed By: #### L 505.5000, L501.9985, L501.9520, L506.0200 ####[facility] [address] [place], [address] COCAINE Negative Normal < 300 ng/mL [facility] Comment on above: Performed By: #### L 505.5000, L501.9985, L501.9520, L506.0200 ####[facility] [address] [place], [address] Fentanyl Negative Normal [facility] Comment on above: Performed By: #### L 505.5000, L501.9985, L501.9520, L506.0200 ####[facility] [address] [place], [address] METHADONE Negative Normal < 300 ng/mL [facility] Comment on above: Performed By: #### L 505.5000, L501.9985, L501.9520, L506.0200 ####[facility] [address] [place], [address] OPIATES Negative Normal < 300 ng/mL [facility] Comment on above: Performed By: #### L 505.5000, L501.9985, L501.9520, L506.0200 ####[facility] [address] [place], [address] OXYCODONE Negative Normal < 100 ng/mL [facility] Comment on above: Performed By: #### L 505.5000, L501.9985, L501.9520, L506.0200 ####[facility] [address] [place], [address] PCP Negative Normal < 25 ng/mL [facility] Comment on above: Performed By: #### L 505.5000, L501.9985, L501.9520, L506.0200 ####[facility] [address] [place], [address] THC Positive Normal < 50 ng/mL [facility] Comment on above: Result Comment: If c onfirmation testing is needed, a separate order will berequired to send out testing to the reference laboratory. Performed By: #### L 505.5000, L501.9985, L501.9520, L506.0200 ####[facility] [address] [place], [address] Vitamin B12on 10-31-2024 Cobalamin (Vitamin B12) [Mass/Vol] 484 pg/mL Normal 180-914 [facility] Comment on above: Performed By: #### L 503.0106 ####[facility] [address] [place], [address] Vitamin B12 ser/plasOrdered By: Nehemiah Medrano on 10-31-2024 Cobalamin (Vitamin B12) [Mass/Vol] 484 pg/mL 180-914 [facility] 12 Lead EKGon 10-30-2024 12 Lead EKG Normal [facility] Absolute lymphocyte countOrd ered By: Domenico Silva on 10-30-2024 Lymphocytes Auto (Unsp spec) [#/Vol] 1.57 10*3/uL 0.83-4.51 [facility] Absolute neutrophil countOrd ered By: Domenico Silva on 10-30-2024 Neutrophils (Bld) [#/Vol] 8.3 10*3/uL High 2.0-7.7 [facility] Activated partial thrombopla stin time (aPTT) in platelet poor plasma by coagulation aOrdered By: Domenico Silva on 10-30-2024 aPTT Coag (PPP) [Time] 25.8 s 24.1-36.2 [facility] Amphetamine detection with 1 000 ng/mL as cutoffOrdered By: Nehemiah Medrano on 10-30-2024 Amphetamines Screen method >1000 ng/mL Ql (U) Positive <1000 ng/mL [facility] Comment on above: If confirmation test ing is needed, a separate order will be required to send out testing to the reference laboratory. Amphetamines Screen method >1000 ng/mL Ql (U) Negative < 200 ng/mL [facility] Anion gap in Serum or Plasma Ordered By: Domenico Silva on 10-30-2024 Anion gap [Moles/Vol] 16 mmol/L High 5-15 [facility] Automated lymphocyte count a s percentage of total leukocytesOrdered By: Domenico Silva on 10-30-2024 Lymphocytes/100 WBC Auto (Unsp spec) 15.0 % Low 19-41 [facility] BUN/creatinine ratioOrdered By: Domenico Silva on 10-30-2024 Urea nitrogen/Creatinine [Mass ratio] 16.5 mg/mg 10- [facility] Basic Metabolic Profile (BMP )on 10-30-2024 BUN/CRE 16.5 RATIO Normal 01-20 [facility] Comment on above: Performed By: #### L 300.3900, L300.4310, L500.2500, L100.0100, L501.4021 ####[facility] [address] [place], [address] Calcium [Mass/Vol] 10.5 mg/dL Normal 7.6-11.0 [facility] Comment on above: Performed By: #### L 300.3900, L300.4310, L500.2500, L100.0100, L501.4021 ####[facility] [address] [place], [address] Chloride [Moles/Vol] 100 mmol/L Normal 98-108 [facility] Comment on above: Performed By: #### L 300.3900, L300.4310, L500.2500, L100.0100, L501.4021 ####[facility] [address] [place], [address] CO2 [Moles/Vol] 24.6 mmol/L Normal 21.0-32.0 [facility] Comment on above: Performed By: #### L 300.3900, L300.4310, L500.2500, L100.0100, L501.4021 ####[facility] [address] [place], [address] Creatinine [Mass/Vol] 0.80 mg/dL Normal 0.70-1.20 [facility] Comment on above: Performed By: #### L 300.3900, L300.4310, L500.2500, L100.0100, L501.4021 ####[facility] [address] [place], [address] ECRCL 93.24 ml/min Normal 50-250 [facility] Comment on above: Performed By: #### L 300.3900, L300.4310, L500.2500, L100.0100, L501.4021 ####[facility] [address] [place], [address] GAP 16 High 5-15 [facility] Comment on above: Performed By: #### L 300.3900, L300.4310, L500.2500, L100.0100, L501.4021 ####[facility] [address] [place], [address] GFR/1.73 sq M.predicted among non-blacks MDRD (S/P/Bld) [Vol rate/Area] 95 mL/min/{1.73_m2} Normal >60 [facility] Comment on above: Result Comment: mL/m in/1.73m2 CKD-EPI Creatinine Equation (2020) Performed By: #### L 300.3900, L300.4310, L500.2500, L100.0100, L501.4021 ####[facility] [address] [place], [address] Glucose [Mass/Vol] 92 mg/dL Normal 70-99 [facility] Comment on above: Performed By: #### L 300.3900, L300.4310, L500.2500, L100.0100, L501.4021 ####[facility] [address] [place], [address] Potassium [Moles/Vol] 3.4 mmol/L Normal 3.3-5.1 [facility] Comment on above: Performed By: #### L 300.3900, L300.4310, L500.2500, L100.0100, L501.4021 ####[facility] [address] [place], [address] Sodium [Moles/Vol] 141 mmol/L Normal 133-145 [facility] Comment on above: Performed By: #### L 300.3900, L300.4310, L500.2500, L100.0100, L501.4021 ####[facility] [address] [place], [address] Urea nitrogen [Mass/Vol] 13 mg/dL Normal 4-19 [facility] Comment on above: Performed By: #### L 300.3900, L300.4310, L500.2500, L100.0100, L501.4021 ####[facility] [address] [place], [address] Basophil percentageOrdered B y: Domenico Silva on 10-30-2024 Basophils/100 WBC (Bld) 0.5 % 0-1 [facility] CBC W/Diff, Automatedon 10-03 0 Absolute Lymph 1.57 X10 3/uL Normal 0.83-4.51 [facility] Comment on above: Performed By: #### L 300.3900, L300.4310, L500.2500, L100.0100, L501.4021 ####[facility] [address] [place], [address] Absolute Neut 8.3 X10 3/uL High 2.0-7.7 [facility] Comment on above: Performed By: #### L 300.3900, L300.4310, L500.2500, L100.0100, L501.4021 ####[facility] [address] [place], [address] Basophils/100 WBC (Bld) 0.5 % Normal 0-1 [facility] Comment on above: Performed By: #### L 300.3900, L300.4310, L500.2500, L100.0100, L501.4021 ####[facility] [address] [place], [address] Eosinophils/100 WBC (Bld) 0.4 % Normal 0-5 [facility] Comment on above: Performed By: #### L 300.3900, L300.4310, L500.2500, L100.0100, L501.4021 ####[facility] [address] [place], [address] Erythrocyte distribution width (RBC) [Ratio] 12.1 % Normal 11.6-14.6 [facility] Comment on above: Performed By: #### L 300.3900, L300.4310, L500.2500, L100.0100, L501.4021 ####[facility] [address] [place], [address] Hematocrit (Bld) [Volume fraction] 54.8 % High 37-47 [facility] Comment on above: Performed By: #### L 300.3900, L300.4310, L500.2500, L100.0100, L501.4021 ####[facility] [address] [place], [address] IG% 0.600 Normal 0.0-0.9 [facility] Comment on above: Result Comment: IG% - Immature Granulocytes (promyelocytes, myelocytes andmetamyelocytes) > 1% indicates that a LEFT SHIFT is Present. Performed By: #### L 300.3900, L300.4310, L500.2500, L100.0100, L501.4021 ####[facility] [address] [place], [address] Lymphocytes/100 WBC (Bld) 15.0 % Low 19-41 [facility] Comment on above: Performed By: #### L 300.3900, L300.4310, L500.2500, L100.0100, L501.4021 ####[facility] [address] [place], [address] MCH (RBC) [Entitic mass] 30.4 pg Normal 27.0-32.0 [facility] Comment on above: Performed By: #### L 300.3900, L300.4310, L500.2500, L100.0100, L501.4021 ####[facility] [address] [place], [address] MCHC (RBC) [Mass/Vol] 33.8 g/dL Normal 32-36 [facility] Comment on above: Performed By: #### L 300.3900, L300.4310, L500.2500, L100.0100, L501.4021 ####[facility] [address] [place], [address] MCV (RBC) [Entitic vol] 90.1 fL Normal 81-99 [facility] Comment on above: Performed By: #### L 300.3900, L300.4310, L500.2500, L100.0100, L501.4021 ####[facility] [address] [place], [address] Monocytes/100 WBC (Bld) 4.2 % Normal 0-10 [facility] Comment on above: Performed By: #### L 300.3900, L300.4310, L500.2500, L100.0100, L501.4021 ####[facility] [address] [place], [address] Neutrophils/100 WBC (Bld) 79.3 % High 47-70 [facility] Comment on above: Performed By: #### L 300.3900, L300.4310, L500.2500, L100.0100, L501.4021 ####[facility] [address] [place], [address] Nucleated RBC (Bld) [#/Vol] 0 10*3/uL Normal 0-5 [facility] Comment on above: Performed By: #### L 300.3900, L300.4310, L500.2500, L100.0100, L501.4021 ####[facility] [address] [place], [address] Platelet mean volume (Bld) [Entitic vol] 10.0 fL Normal 6.2-12.0 [facility] Comment on above: Performed By: #### L 300.3900, L300.4310, L500.2500, L100.0100, L501.4021 ####[facility] [address] [place], [address] Platelets (Bld) [#/Vol] 311 10*3/uL Normal 150-450 [facility] Comment on above: Performed By: #### L 300.3900, L300.4310, L500.2500, L100.0100, L501.4021 ####[facility] [address] [place], [address] RBC (Bld) [#/Vol] 6.08 10*6/uL High 4.2-5.4 [facility] Comment on above: Performed By: #### L 300.3900, L300.4310, L500.2500, L100.0100, L501.4021 ####[facility] [address] [place], [address] RDW SD 39.9 fl Normal 35.1-43.9 [facility] Comment on above: Performed By: #### L 300.3900, L300.4310, L500.2500, L100.0100, L501.4021 ####[facility] [address] [place], [address] WBC (Bld) [#/Vol] 10.5 10*3/uL Normal 4.4-11.0 [facility] Comment on above: Performed By: #### L 300.3900, L300.4310, L500.2500, L100.0100, L501.4021 ####[facility] [address] [facility] [place], [address] Carbon dioxide, total [Moles /volume] in Central venous bloodOrdered By: Domenico Silva on 10-30-2024 CO2 [Moles/Vol] 24.6 mmol/L 21.0-32.0 [facility] Chest 1 Viewon 10-30-2024 Chest 1 View Normal [facility] Chloride assayOrdered By: Galen Silva on 10-30-2024 Chloride [Moles/Vol] 100 mmol/L 98-108 [facility] Echo Completeon 10-30-2024 Echo Complete Normal [facility] Emergency Department Summary on 10-30-2024 Emergency Department Summary Normal [facility] Eosinophil percentageOrdered By: Domenico Silva on 10-30-2024 Eosinophils/100 WBC (Bld) 0.4 % 0-5 [facility] Erythrocyte distribution wid th ratioOrdered By: Domenico Silva on 10-30-2024 Erythrocyte distribution width (RBC) [Ratio] 12.1 % 11.6-14.6 [facility] Erythrocyte distribution wid th standard deviationOrdered By: Domenico Silva on 10-30-2024 Erythrocyte distribution width (RBC) [Ratio] 39.9 fl 35.1-43.9 [facility] Folate [Moles/volume] in Ser um or PlasmaOrdered By: Nehemiah Medrano on 10-30-2024 Folate [Moles/Vol] 7.69 ng/mL 4.60-34.80 [facility] Comment on above: Hemolysis, Results w ill be affected, Requires Recollection. Glomerular filtration rate ( GFR) estimation/1.73 sq m using serum, plasma, or whole bOrdered By: Domenico Silva on 10-30-2024 GFR/1.73 sq M.predicted among non-blacks MDRD (S/P/Bld) [Vol rate/Area] 95 mL/min/{1.73_m2} >60 [facility] Comment on above: mL/min/1.73m2 CKD-EP I Creatinine Equation (2020) H AND P Exam - [facility] 10-30-2024 H&P Exam - Hospitalist Normal [facility] Hematocrit Auto (Bld) [Volum e fraction]Ordered By: Domenico Silva on 10-30-2024 Hematocrit (Bld) [Volume fraction] 54.8 % High 37-47 [facility] Hemoglobin A1c percentageOrd ered By: Nehemiah Medrano on 10-30-2024 HbA1c (Bld) [Mass fraction] 5.4 % <5.7 [facility] Comment on above: Normal < 5.7 % Predi abetic 5.7 - 6.4 % Diabetic >or= 6.5 % Please note range changes. Hemoglobin measurementOrdere d By: Domenico Silva on 10-30-2024 Hemoglobin (Bld) [Mass/Vol] 18.5 g/dL Invalid Interpretation Code 12.0-15.0 [facility] Comment on above: CRITICAL VALUE PETERSON D TO [id number]/30/252058 Laquita Shell.RESULTS READ BACK BY SAME. Result Comment: CRIT ICAL VALUE CALLED TO [id number]/30/252058 Laquita Shell.RESULTS READ BACK BY SAME. Performed By: #### L 300.3900, L300.4310, L500.2500, L100.0100, L501.4021 ####[facility] [address] [place], [address] Immature granulocytes/100 WB C Auto (Bld)Ordered By: Domenico Silva on 10-30-2024 Immature granulocytes/100 WBC (Bld) 0.600 % 0.0-0.9 [facility] Comment on above: IG% - Immature Granu locytes (promyelocytes, myelocytes and metamyelocytes) > 1% indicates that a LEFT SHIFT is Present. International normalized rat io (INR) calculationOrdered By: Domenico Silva on 10-30-2024 INR Coag (Bld) [Relative time] 0.9 {INR} [facility] L501.4021on 10-30-2024 Trop T High Sen < 6 Normal <=14 [facility] Comment on above: Performed By: #### L 300.3900, L300.4310, L500.2500, L100.0100, L501.4021 ####[facility] [address] [place], [address] MCV (mean corpuscular volume ) determinationOrdered By: Domenico Silva on 10-30-2024 MCV (RBC) [Entitic vol] 90.1 fL 81-99 [facility] Mean corpuscular hemoglobin (MCH) determinationOrdered By: Domenico Silva on 10-30-2024 MCH (RBC) [Entitic mass] 30.4 pg 27.0-32.0 [facility] Mean corpuscular hemoglobin concentration (MCHC) determinationOrdered By: Domenico Silva on 10-30-2024 MCHC (RBC) [Mass/Vol] 33.8 g/dL 32-36 [facility] Mean platelet volume determi nationOrdered By: Domenico Silva on 10-30-2024 Platelet mean volume (Bld) [Entitic vol] 10.0 fL 6.2-12.0 [facility] Monocyte percentageOrdered B y: Domenico Silva on 10-30-2024 Monocytes/100 WBC (Bld) 4.2 % 0-10 [facility] Neutrophil percentageOrdered By: Domenico Silva on 10-30-2024 Neutrophils/100 WBC (Bld) 79.3 % High 47-70 [facility] No Panel InformationOrdered By: Nehemiah Medrano on 10-30-2024 Urine Buprenorphine Qualitative Negative < 200 ng/mL [facility] Urine Oxycodone Screen Negative < 100 ng/mL [facility] Nucleated red blood cell per centageOrdered By: Domenico Silva on 10-30-2024 Nucleated RBC/100 WBC (Bld) [Ratio] 0 % 0-5 [facility] Partial Thromboplast Timeon 10-30-2024 aPTT Coag (Bld) [Time] 25.8 s Normal 24.1-36.2 [facility] Comment on above: Performed By: #### L 300.3900, L300.4310, L500.2500, L100.0100, L501.4021 ####[facility] [address] [place], [address] Platelet countOrdered By: Galen Silva on 10-30-2024 Platelets (Bld) [#/Vol] 311 10*3/uL 150-450 [facility] Potassium measurement (mass/ volume)Ordered By: Domenico Silva on 10-30-2024 Potassium (Unsp spec) [Mass/Vol] 3.4 mmol/L 3.3-5.1 [facility] Prothrombin Time w/INRon INR Coag (PPP) [Relative time] 0.9 {INR} Normal [facility] Comment on above: Performed By: #### L 300.3900, L300.4310, L500.2500, L100.0100, L501.4021 ####[facility] [address] [place], [address] PT Coag (PPP) [Time] 11.8 s Normal 11.7-14.9 [facility] Comment on above: Performed By: #### L 300.3900, L300.4310, L500.2500, L100.0100, L501.4021 ####[facility] [address] [place], [address] Prothrombin timeOrdered By: Domenico Silva on 10-30-2024 PT Coag (PPP) [Time] 11.8 s 11.7-14.9 [facility] Quantitative urine opiates m easurementOrdered By: Nehemiah Medrano on 10-30-2024 Opiates Ql (U) Negative < 300 ng/mL [facility] RBC Auto (Bld) [#/Vol]Ordere d By: Domenico Silva on 10-30-2024 RBC (Bld) [#/Vol] 6.08 10*6/uL High 4.2-5.4 [facility] STROKE Brain/Head without Co nton 10-30-2024 STROKE Brain/Head without Cont Normal [facility] STROKE CTA Head AND Neck W/C onon 10-30-2024 STROKE CTA Head AND Neck W/Con Normal [facility] Screening urine fentanyl silva surementOrdered By: Nehemiah Medrano on 10-30-2024 fentaNYL Screen Ql (U) Negative [facility] Serum creatinine measurement (mass/volume)Ordered By: Domenico Silva on 10-30-2024 Creatinine [Mass/Vol] 0.80 mg/dL 0.70-1.20 [facility] Serum glucose measurement (m ass/volume)Ordered By: Domenico Silva on 10-30-2024 Glucose [Mass/Vol] 92 mg/dL 70-99 [facility] Serum or plasma calcium sasha urement (mass/volume)Ordered By: Domenico Silva on 10-30-2024 Calcium [Mass/Vol] 10.5 mg/dL 7.6-11.0 [facility] Serum or plasma urea nitroge n measurement (mass/volume)Ordered By: Domenico Silva on 10-30-2024 Urea nitrogen [Mass/Vol] 13 mg/dL 4-19 [facility] Sodium levelOrdered By: Domenico Silva on 10-30-2024 Sodium [Moles/Vol] 141 mmol/L 133-145 [facility] TSH DL <= 0.005 mIU/L QnOrde red By: Nehemiah Medrano on 10-30-2024 TSH Qn 3.230 uIU/mL 0.300-4.20 0 [facility] Troponin T HS 2 HRon 025 Trop T High Sen < 6 Normal <=14 [facility] Comment on above: Performed By: #### L 499.0042 ####[facility] [address] [place], [address] Troponin T.cardiac [Mass/vol ume] in Serum or Plasma by High sensitivity methodOrdered By: Domenico Silva on 10-30-2024 Troponin T.cardiac High sensitivity method [Mass/Vol] < 6 ng/L <14 [facility] Troponin T.cardiac High sensitivity method [Mass/Vol] < 6 ng/L <14 [facility] Urine benzodiazepine levelOr dered By: Nehemiah Medrano on 10-30-2024 Benzodiazepines Ql (U) Negative < 200 ng/mL [facility] Urine cocaine levelOrdered B y: Nehemiah Medrano on 10-30-2024 Cocaine Ql (U) Negative < 300 ng/mL [facility] Urine gxugb-1-seecxbqtbfpsks abinol (THC) measurementOrdered By: Nehemiah Medrano on 10-30-2024 Cannabinoids Screen Ql (U) Positive < 50 ng/mL [facility] Comment on above: If confirmation test ing is needed, a separate order will be required to send out testing to the reference laboratory. Urine phencyclidine (PCP) de tectionOrdered By: Nehemiah Medrano on 10-30-2024 Phencyclidine Ql (U) Negative < 25 ng/mL [facility] White blood cell (WBC) count Ordered By: Domenico Silva on 10-30-2024 WBC (Bld) [#/Vol] 10.5 10*3/uL 4.4-11.0 [facility] Foot min 3 Viewson 5 Foot min 3 Views Normal [facility] Urgent Care Visit Reporton 0 08-19-2024 Urgent Care Visit Report Normal [facility] 12 Lead EKGon 11-27-2023 12 Lead EKG Normal [facility] Basic Metabolic Profile (BMP )on 11-27-2023 BUN/CRE 15.9 RATIO Normal 10-20 [facility] Comment on above: Order Comment: CIARA Perez PREVIOUS SPECIMEN REJECTED DUE TOHEMOLYSIS. 11/27/23 [id number] Performed By: #### L 500.2500, L501.5425 ####[facility] [address] [place], [address] CA,Total 9.1 mg/dL Normal 8.5-10.1 [facility] Comment on above: Order Comment: REDRA W. PREVIOUS SPECIMEN REJECTED DUE TOHEMOLYSIS. 11/27/23 [id number] Performed By: #### L 500.2500, L501.5425 ####[facility] [address] [place], [address] Chloride [Moles/Vol] 107 mmol/L Normal 98-107 [facility] Comment on above: Order Comment: REDRA W. PREVIOUS SPECIMEN REJECTED DUE TOHEMOLYSIS. 11/27/23 [id number] Performed By: #### L 500.2500, L501.5425 ####[facility] [address] [place], [address] CO2 [Moles/Vol] 28.0 mmol/L Normal 21.0-32.0 [facility] Comment on above: Order Comment: REDRA W. PREVIOUS SPECIMEN REJECTED DUE TOHEMOLYSIS. 11/27/23 [id number] Performed By: #### L 500.2500, L501.5425 ####[facility] [address] [place], [address] Creatinine [Mass/Vol] 0.69 mg/dL Normal 0.55-1.02 [facility] Comment on above: Order Comment: REDRA W. PREVIOUS SPECIMEN REJECTED DUE TOHEMOLYSIS. 11/27/23 [id number] Result Comment: The validity of the calculated GFR GFRAA in patients over70 years has not been determined. Clinical correlation isessential. Performed By: #### L 500.2500, L501.5425 ####[facility] [address] [place], [address] ECRCL 111.41 ml/min Normal [facility] Comment on above: Order Comment: REDRA W. PREVIOUS SPECIMEN REJECTED DUE TOHEMOLYSIS. 11/27/23 [id number] Performed By: #### L 500.2500, L501.5425 ####[facility] [address] [place], [address] EST GFR - AA 121 mL/min Normal >60 [facility] Comment on above: Order Comment: REDRA W. PREVIOUS SPECIMEN REJECTED DUE TOHEMOLYSIS. 11/27/23 [id number] Result Comment: Afri can Citizen Of [place] GFR Calc Performed By: #### L 500.2500, L501.5425 ####[facility] [address] [place], [address] GAP 3 Low 5-15 [facility] Comment on above: Order Comment: REDRA W. PREVIOUS SPECIMEN REJECTED DUE TOHEMOLYSIS. 11/27/23 [id number] Performed By: #### L 500.2500, L501.5425 ####[facility] [address] [place], [address] GFR/1.73 sq M.predicted among non-blacks MDRD (S/P/Bld) [Vol rate/Area] 100 mL/min/{1.73_m2} Normal >60 [facility] Comment on above: Order Comment: REDRA W. PREVIOUS SPECIMEN REJECTED DUE TOHEMOLYSIS. 11/27/23 [id number] Result Comment: Non- GFR Calc Performed By: #### L 500.2500, L501.5425 ####[facility] [address] [place], [address] Glucose [Mass/Vol] 107 mg/dL High 74-106 [facility] Comment on above: Order Comment: REDRA W. PREVIOUS SPECIMEN REJECTED DUE TOHEMOLYSIS. 11/27/23 [id number] Result Comment: Fast ing Glucose result from 100 to 125 mg/dLsuggests IMPAIRED HOMEOSTASIS per A.D.A. criteria. Performed By: #### L 500.2500, L501.5425 ####[facility] [address] [place], [address] Potassium [Moles/Vol] 4.1 mmol/L Normal 3.5-5.1 [facility] Comment on above: Order Comment: REDRA W. PREVIOUS SPECIMEN REJECTED DUE TOHEMOLYSIS. 11/27/23 [id number] Performed By: #### L 500.2500, L501.5425 ####[facility] [address] [place], [address] Sodium [Moles/Vol] 138 mmol/L Normal 136-145 [facility] Comment on above: Order Comment: REDRA W. PREVIOUS SPECIMEN REJECTED DUE TOHEMOLYSIS. 11/27/23 [id number] Performed By: #### L 500.2500, L501.5425 ####[facility] [address] [place], [address] Urea nitrogen [Mass/Vol] 11 mg/dL Normal 7-18 [facility] Comment on above: Order Comment: REDRA W. PREVIOUS SPECIMEN REJECTED DUE TOHEMOLYSIS. 11/27/23 [id number] Performed By: #### L 500.2500, L501.5425 ####[facility] [address] [place], [address] BUN Normal 7-18 [facility] Comment on above: Order Comment: 1Y Result Comment: This specimen has been REJECTED due to Laboratory criteria:[golden CHRISTENSEN].NATALIA has been notified of need of recollection.11/27/23 1246 Francisca Clapper Performed By: #### L 500.2500, L100.0100 ####[facility] [address] [place], [address] BUN/CRE Normal 10-20 [facility] Comment on above: Order Comment: 1Y Result Comment: This specimen has been REJECTED due to Laboratory criteria:[golden CHRISTENSEN].NATALIA has been notified of need of recollection.11/27/23 1246 Francisca Clapper Performed By: #### L 500.2500, L100.0100 ####[facility] [address] [place], [address] CA,Total Normal 8.5-10.1 [facility] Comment on above: Order Comment: 1Y Result Comment: This specimen has been REJECTED due to Laboratory criteria:[golden CHRISTENSEN]JUSTYN has been notified of need of recollection.11/27/23 1246 Francisca Clapper Performed By: #### L 500.2500, L100.0100 ####[facility] [address] [place], [address] CL Normal 98-107 [facility] Comment on above: Order Comment: 1Y Result Comment: This specimen has been REJECTED due to Laboratory criteria:[golden CHRISTENSEN].NATALIA has been notified of need of recollection.11/27/23 1246 Francisca Clapper Performed By: #### L 500.2500, L100.0100 ####[facility] [address] [place], [address] CO2 Normal 21.0-32.0 [facility] Comment on above: Order Comment: 1Y Result Comment: This specimen has been REJECTED due to Laboratory criteria:[golden CHRISTENSEN].NATALIA has been notified of need of recollection.11/27/23 1246 Francisca Clapper Performed By: #### L 500.2500, L100.0100 ####[facility] [address] [place], [address] CREAT,SERUM Normal 0.55-1.02 [facility] Comment on above: Order Comment: 1Y Result Comment: This specimen has been REJECTED due to Laboratory criteria:[golden CHRISTENSEN].NATALIA has been notified of need of recollection.11/27/23 1246 Francisca Clapper Performed By: #### L 500.2500, L100.0100 ####[facility] [address] [place], [address] EST GFR Normal >60 [facility] Comment on above: Order Comment: 1Y Result Comment: This specimen has been REJECTED due to Laboratory criteria:[golden CHRISTENSEN].NATALIA has been notified of need of recollection.11/27/23 1246 Francisca Clapper Performed By: #### L 500.2500, L100.0100 ####[facility] [address] [place], [address] EST GFR - AA Normal >60 [facility] Comment on above: Order Comment: 1Y Result Comment: This specimen has been REJECTED due to Laboratory criteria:[oglden CHRISTENSEN].NATALIA has been notified of need of recollection.11/27/23 1246 Francisca Clapper Performed By: #### L 500.2500, L100.0100 ####[facility] [address] [place], [address] GAP Normal 5-15 [facility] Comment on above: Order Comment: 1Y Result Comment: This specimen has been REJECTED due to Laboratory criteria:[golden CHRISTENSEN].NATALIA has been notified of need of recollection.11/27/23 1246 Francisca Clapper Performed By: #### L 500.2500, L100.0100 ####[facility] [address] [place], [address] GLU Normal 74-106 [facility] Comment on above: Order Comment: 1Y Result Comment: This specimen has been REJECTED due to Laboratory criteria:[golden CHRISTENSEN].NATALIA has been notified of need of recollection.11/27/23 1246 Francisca Clapper Performed By: #### L 500.2500, L100.0100 ####[facility] [address] [place], [address] Potassium Normal 3.5-5.1 [facility] Comment on above: Order Comment: 1Y Result Comment: This specimen has been REJECTED due to Laboratory criteria:[golden CHRISTENSEN].NATALIA has been notified of need of recollection.11/27/23 1246 Francisca Clapper Performed By: #### L 500.2500, L100.0100 ####[facility] [address] [place], [address] Basic Metabolic Profile (BMP) Normal 136-145 [facility] Comment on above: Order Comment: 1Y Result Comment: This specimen has been REJECTED due to Laboratory criteria:[godlen CHRISTENSEN].NATALIA has been notified of need of recollection.11/27/23 1246 Francisca Pete Performed By: #### L 500.2500, L100.0100 ####[facility] [address] [place], [address] CBC W/Diff, Automatedon 11-02 Absolute Lymph 2.14 X10 3/uL Normal 0.83-4.51 [facility] Comment on above: Order Comment: REDRA W. PREVIOUS SPECIMEN REJECTED DUE TOCLOT'. 11/27/23 1222 Елена Lewis. Performed By: #### L 100.0100 ####[facility] [address] [place], [address] Absolute Neut 6.8 X10 3/uL Normal 2.0-7.7 [facility] Comment on above: Order Comment: REDRA W. PREVIOUS SPECIMEN REJECTED DUE TOCLOT'. 11/27/23 1222 Елена Lewis. Performed By: #### L 100.0100 ####[facility] [address] [place], [address] Basophils/100 WBC (Bld) 0.4 % Normal 0-1 [facility] Comment on above: Order Comment: REDRA W. PREVIOUS SPECIMEN REJECTED DUE TOCLOT'. 11/27/23 1222 Елена Lewis. Performed By: #### L 100.0100 ####[facility] [address] [place], [address] Eosinophils/100 WBC (Bld) 0.8 % Normal 0-5 [facility] Comment on above: Order Comment: REDRA W. PREVIOUS SPECIMEN REJECTED DUE TOCLOT'. 11/27/23 1222 Елена Lewis. Performed By: #### L 100.0100 ####[facility] [address] [place], [address] Erythrocyte distribution width (RBC) [Ratio] 11.2 % Low 11.6-14.6 [facility] Comment on above: Order Comment: REDRA W. PREVIOUS SPECIMEN REJECTED DUE TOCLOT'. 11/27/23 1222 Елена Lewis. Performed By: #### L 100.0100 ####[facility] [address] [place], [address] Hematocrit (Bld) [Volume fraction] 43.8 % Normal 37-47 [facility] Comment on above: Order Comment: REDRA W. PREVIOUS SPECIMEN REJECTED DUE TOCLOT'. 11/27/23 1222 Елена Lewis. Performed By: #### L 100.0100 ####[facility] [address] [place], [address] Hemoglobin (Bld) [Mass/Vol] 14.5 g/dL Normal 12.0-15.0 [facility] Comment on above: Order Comment: REDRA W. PREVIOUS SPECIMEN REJECTED DUE TOCLOT'. 11/27/23 1222 Елена Joshua. Performed By: #### L 100.0100 ####[facility] [address] [place], [address] IG% 0.600 Normal 0.0-0.9 [facility] Comment on above: Order Comment: REDRA W. PREVIOUS SPECIMEN REJECTED DUE TOCLOT'. 11/27/23 1222 Елена Lewis. Result Comment: IG% - Immature Granulocytes (promyelocytes, myelocytes andmetamyelocytes) > 1% indicates that a LEFT SHIFT is Present. Performed By: #### L 100.0100 ####[facility] [address] [place], [address] Lymphocytes/100 WBC (Bld) 22.0 % Normal 19-41 [facility] Comment on above: Order Comment: REDRA W. PREVIOUS SPECIMEN REJECTED DUE TOCLOT'. 11/27/23 1222 Елена Lewis. Performed By: #### L 100.0100 ####[facility] [address] [place], [address] MCH (RBC) [Entitic mass] 30.1 pg Normal 27.0-32.0 [facility] Comment on above: Order Comment: REDRA W. PREVIOUS SPECIMEN REJECTED DUE TOCLOT'. 11/27/23 1222 Елена Lewis. Performed By: #### L 100.0100 ####[facility] [address] [place], [address] MCHC (RBC) [Mass/Vol] 33.1 g/dL Normal 32-36 [facility] Comment on above: Order Comment: REDRA W. PREVIOUS SPECIMEN REJECTED DUE TOCLOT'. 11/27/23 1222 Елена Lewis. Performed By: #### L 100.0100 ####[facility] [address] [place], [address] MCV (RBC) [Entitic vol] 91.1 fL Normal 81-99 [facility] Comment on above: Order Comment: REDRA W. PREVIOUS SPECIMEN REJECTED DUE TOCLOT'. 11/27/23 1222 Елена Lewis. Performed By: #### L 100.0100 ####[facility] [address] [place], [address] Monocytes/100 WBC (Bld) 6.7 % Normal 0-10 [facility] Comment on above: Order Comment: REDRA W. PREVIOUS SPECIMEN REJECTED DUE TOCLOT'. 11/27/23 1222 Елена Lewis. Performed By: #### L 100.0100 ####[facility] [address] [place], [address] Neutrophils/100 WBC (Bld) 69.5 % Normal 47-70 [facility] Comment on above: Order Comment: REDRA W. PREVIOUS SPECIMEN REJECTED DUE TOCLOT'. 11/27/23 1222 Елена Lewis. Performed By: #### L 100.0100 ####[facility] [address] [place], [address] Nucleated RBC (Bld) [#/Vol] 0 10*3/uL Normal 0-5 [facility] Comment on above: Order Comment: REDRA W. PREVIOUS SPECIMEN REJECTED DUE TOCLOT'. 11/27/23 1222 Елена Lewis. Performed By: #### L 100.0100 ####[facility] [address] [place], [address] Platelet mean volume (Bld) [Entitic vol] 9.6 fL Normal 6.2-12.0 [facility] Comment on above: Order Comment: REDRA W. PREVIOUS SPECIMEN REJECTED DUE TOCLOT'. 11/27/23 1222 Елена Lewis. Performed By: #### L 100.0100 ####[facility] [address] [place], [address] Platelets (Bld) [#/Vol] 260 10*3/uL Normal 150-450 [facility] Comment on above: Order Comment: REDRA W. PREVIOUS SPECIMEN REJECTED DUE TOCLOT'. 11/27/23 1222 Елена Lewis. Performed By: #### L 100.0100 ####[facility] [address] [place], [address] RBC (Bld) [#/Vol] 4.81 10*6/uL Normal 4.2-5.4 [facility] Comment on above: Order Comment: REDRA W. PREVIOUS SPECIMEN REJECTED DUE TOCLOT'. 11/27/23 1222 Елена Lewis. Performed By: #### L 100.0100 ####[facility] [address] [place], [address] RDW SD 37.7 fl Normal 35.1-43.9 [facility] Comment on above: Order Comment: REDRA W. PREVIOUS SPECIMEN REJECTED DUE TOCLOT'. 11/27/23 1222 Елена Lewis. Performed By: #### L 100.0100 ####[facility] [address] [place], [address] WBC (Bld) [#/Vol] 9.7 10*3/uL Normal 4.4-11.0 [facility] Comment on above: Order Comment: RONY W. PREVIOUS SPECIMEN REJECTED DUE TOCLOT'. 11/27/23 1222 Елена Lewis. Performed By: #### L 100.0100 ####[facility] [address] [place], [address] Absolute Neut Normal 2.0-7.7 [facility] Comment on above: Result Comment: This specimen has been REJECTED due to Laboratory criteria:Clotted.NATALIA has been notified of need of recollection.11/27/23 1221 Елена Lewis Performed By: #### L 500.2500, L100.0100 ####[facility] [address] [place], [address] HCT Normal 37-47 [facility] Comment on above: Result Comment: This specimen has been REJECTED due to Laboratory criteria:Clotted.NATALIA has been notified of need of recollection.11/27/23 1221 Елена Lewis Performed By: #### L 500.2500, L100.0100 ####[facility] [address] [place], [address] HGB Normal 12.0-15.0 [facility] Comment on above: Result Comment: This specimen has been REJECTED due to Laboratory criteria:Clotted.NATALIA has been notified of need of recollection.11/27/23 1221 Елена Lewis Performed By: #### L 500.2500, L100.0100 ####[facility] [address] [place], [address] MCH Normal 27.0-32.0 [facility] Comment on above: Result Comment: This specimen has been REJECTED due to Laboratory criteria:Clotted.NATALIA has been notified of need of recollection.11/27/23 1221 Елена Lewis Performed By: #### L 500.2500, L100.0100 ####[facility] [address] [place], [address] MCHC Normal 32-36 [facility] Comment on above: Result Comment: This specimen has been REJECTED due to Laboratory criteria:Clotted.NATALIA has been notified of need of recollection.11/27/23 1221 Елена Lewis Performed By: #### L 500.2500, L100.0100 ####[facility] [address] [place], [address] MCV Normal 81-99 [facility] Comment on above: Result Comment: This specimen has been REJECTED due to Laboratory criteria:Clotted.NATALIA has been notified of need of recollection.11/27/23 1221 Елена Lewis Performed By: #### L 500.2500, L100.0100 ####[facility] [address] [place], [address] NEUT% Normal 47-70 [facility] Comment on above: Result Comment: This specimen has been REJECTED due to Laboratory criteria:Clotted.NATALIA has been notified of need of recollection.11/27/23 1221 Елена Lewis Performed By: #### L 500.2500, L100.0100 ####[facility] [address] [place], [address] PLT Normal 150-450 [facility] Comment on above: Result Comment: This specimen has been REJECTED due to Laboratory criteria:Clotted.NATALIA has been notified of need of recollection.11/27/23 1221 Елена Lewis Performed By: #### L 500.2500, L100.0100 ####[facility] [address] [place], [address] RBC Normal 4.2-5.4 [facility] Comment on above: Result Comment: This specimen has been REJECTED due to Laboratory criteria:Clotted.NATALIA has been notified of need of recollection.11/27/23 1221 Елена Lewis Performed By: #### L 500.2500, L100.0100 ####[facility] [address] [place], [address] RDW CV Normal 11.6-14.6 [facility] Comment on above: Result Comment: This specimen has been REJECTED due to Laboratory criteria:Clotted.NATALIA has been notified of need of recollection.11/27/23 1221 Елена Lewis Performed By: #### L 500.2500, L100.0100 ####[facility] [address] [place], [address] RDW SD Normal 35.1-43.9 [facility] Comment on above: Result Comment: This specimen has been REJECTED due to Laboratory criteria:Clotted.NATALIA has been notified of need of recollection.11/27/23 1221 Елена Lewis Performed By: #### L 500.2500, L100.0100 ####[facility] [address] [place], [address] WBC Normal 4.4-11.0 [facility] Comment on above: Result Comment: This specimen has been REJECTED due to Laboratory criteria:Clotted.NATALIA has been notified of need of recollection.11/27/23 1221 Елена Lewis Performed By: #### L 500.2500, L100.0100 ####[facility] [address] [place], [address] CNOVon 11-27-2023 CNOV Office Visit ([facility] ) JAYDA OSHEA ([id number]) 1985 F Date Time Provider Department 11/27/23 11:30 AM VONNIE DICKERSON [facility] During your visit today, we recorded the following information about you: Blood pressure 190/110 Vonnie Dickerson APRN.CNP 11/27/2023 11:37 AM Signed Patient triaged at [facility]. Here today with sob, left arm pain, elevated bp. Bp 190/110. I will refer to ER. Patient declines squad. Patient in no visible distress at time of triage. Allergies As of Date: 11/27/2023 Noted Allergy Reaction NAPROSYN (NAPROXEN) 07/25/2014 4 - Hives SEASONAL ALLERGIES 06/30/2009 Comments: sinus reaction Date Reviewed: 05/15/2020 Reviewed by: Corinne Nichole ([facility]) - Fully Assessed Reason for Visit: [...] Status:Closed by VONNIE DICKERSON on 11/27/23 Normal [facility] Chest 1 View (Portable)on Chest 1 View (Portable) Normal [facility] Emergency Department Summary on 11-27-2023 Emergency Department Summary Normal [facility] L501.4020on 11-27-2023 TROPONIN-I HS 7 pg/mL Normal 3.0-54.0 [facility] Comment on above: Result Comment: Mahogany fulton Note: New Test Units and Gender Specific Reference Ranges. For more information see Policy Stat Procedure [place] High Sensitivity Troponin (TNIH) and attachments. Performed By: #### L 501.4020 ####[facility] [address] [place], [place], [address] L501.5425on 11-27-2023 TROPONIN-I HS 6 pg/mL Normal 3.0-54.0 [facility] Comment on above: Order Comment: CIARA W. PREVIOUS SPECIMEN REJECTED DUE TOHEMOLYSIS. 11/27/23 [id number] Result Comment: Mahogany fulton Note: New Test Units and Gender Specific Reference Ranges. For more information see Policy Stat Procedure [place] High Sensitivity Troponin (TNIH) and attachments. Performed By: #### L 500.2500, Q078.5670 ####[facility] [address] [place], [place], [address] Vital Signs Date Time Vital Sign Value Performing Clinician Leslye levin 11-10-2024 13:42-0400 Diastolic blood pressure 95 mm[Hg] No Primary Care Physician [facility] 11-10-2024 13:42-0400 Heart rate 88 /min No Primary Care Physician [facility] 11-10-2024 13:42-0400 Respiratory rate 17 /min No Primary Care Physician [facility] 11-10-2024 13:42-0400 SaO2% (BldA) [Mass fraction] 96 % No Primary Care Physician [facility] 11-10-2024 13:42-0400 Systolic blood pressure 110 mm[Hg] No Primary Care Physician [facility] 11-10-2024 10:25-0400 Body temperature 97.9 [degF] No Primary Care Physician [facility] 11-05-2024 13:39-0400 Body height 162.56 cm No Primary Care Physician [facility] 11-05-2024 13:39-0400 Body weight 76.83 kg No Primary Care Physician [facility] 11-04-2024 12:25-0400 Body mass index (BMI) [Ratio] 29 kg/m2 No Primary Care Physician [facility] 11-04-2024 11:20-0400 Heart rate 76 /min No Primary Care Physician [facility] 11-04-2024 11:08-0400 Body temperature 97.8 [degF] No Primary Care Physician [facility] 11-04-2024 11:08-0400 Diastolic blood pressure 84 mm[Hg] No Primary Care Physician [facility] 11-04-2024 11:08-0400 Respiratory rate 16 /min No Primary Care Physician [facility] 11-04-2024 11:08-0400 SaO2% (BldA) [Mass fraction] 94 % No Primary Care Physician [facility] 11-04-2024 11:08-0400 Systolic blood pressure 172 mm[Hg] No Primary Care Physician [facility] 11-04-2024 04:16-0400 Body mass index (BMI) [Ratio] 28 kg/m2 No Primary Care Physician [facility] 11-02-2024 13:33-0400 Body height 162.56 cm No Primary Care Physician [facility] 11-02-2024 13:33-0400 Body weight 74 kg No Primary Care Physician [facility] 11-01-2024 14:30-0400 Body temperature 97.2 [degF] No Primary Care Physician [facility] 11-01-2024 14:30-0400 Diastolic blood pressure 103 mm[Hg] No Primary Care Physician [facility] 11-01-2024 14:30-0400 Heart rate 77 /min No Primary Care Physician [facility] 11-01-2024 14:30-0400 Respiratory rate 16 /min No Primary Care Physician [facility] 11-01-2024 14:30-0400 SaO2% (BldA) [Mass fraction] 99 % No Primary Care Physician [facility] 11-01-2024 14:30-0400 Systolic blood pressure 183 mm[Hg] No Primary Care Physician [facility] 11-01-2024 13:00-0400 Body mass index (BMI) [Ratio] 30 kg/m2 No Primary Care Physician [facility] 10-31-2024 10:21-0400 Body height 162.56 cm No Primary Care Physician [facility] 10-31-2024 10:21-0400 Body weight 79.4 kg No Primary Care Physician [facility] 10-31-2024 00:00-0400 Diastolic blood pressure 99 mm[Hg] No Primary Care Physician [facility] 10-31-2024 00:00-0400 Heart rate 69 /min No Primary Care Physician [facility] 10-31-2024 00:00-0400 Respiratory rate 16 /min No Primary Care Physician [facility] 10-31-2024 00:00-0400 SaO2% (BldA) [Mass fraction] 100 % No Primary Care Physician [facility] 10-31-2024 00:00-0400 Systolic blood pressure 166 mm[Hg] No Primary Care Physician [facility] 10-30-2024 23:14-0400 Body temperature 98 [degF] No Primary Care Physician [facility] 10-30-2024 20:50-0400 Body height 162.56 cm No Primary Care Physician [facility] 10-30-2024 20:50-0400 Body mass index (BMI) [Ratio] 29.3 kg/m2 No Primary Care Physician [facility] 10-30-2024 20:50-0400 Body weight 77.5 kg No Primary Care Physician [facility] 08-19-2024 11:28-0400 Body height 162.56 cm No Primary Care Physician [facility] 08-19-2024 11:28-0400 Body mass index (BMI) [Ratio] 29.9 kg/m2 No Primary Care Physician [facility] 08-19-2024 11:28-0400 Body temperature 98.2 [degF] No Primary Care Physician [facility] 08-19-2024 11:28-0400 Body weight 79.03 kg No Primary Care Physician [facility] 08-19-2024 11:28-0400 Diastolic blood pressure 86 mm[Hg] No Primary Care Physician [facility] 08-19-2024 11:28-0400 Heart rate 94 /min No Primary Care Physician [facility] 08-19-2024 11:28-0400 SaO2% (BldA) [Mass fraction] 97 % No Primary Care Physician [facility] 08-19-2024 11:28-0400 Systolic blood pressure 122 mm[Hg] No Primary Care Physician [facility] 11-27-2023 11:34-0400 Diastolic blood pressure 110 mm[Hg] Vonnie Dickerson APRN.CNP Work Phone: [facility] 11-27-2023 11:34-0400 Systolic blood pressure 190 mm[Hg] Vonnie Dickerson GENA Work Phone: [facility] Encounters Encounter Date Encounter Type Care Provider Facility Start: 11-10-2024 Non-patient / Non-visit Dr. Nehemiah stanley MD [facility] Work Phone: Start: 11-09-2024 Non-patient / Non-visit Dr. Nehemiah stanley MD [facility] Work Phone: Start: 11-08-2024 Non-patient / Non-visit Dr. Nehemiah stanley MD [facility] Work Phone: Start: 11-07-2024 Non-patient / Non-visit Dr. Nehemiah stanley MD [facility] Work Phone: Start: 11-06-2024 Non-patient / Non-visit Dr. Taylor [facility] Start: 11-06-2024 Non-patient / Non-visit Dr. Ximena Mccormick MD [facility] Work Phone: Start: 11-05-2024 Non-patient / Non-visit Dr. Nehemiah stanley [facility] Work Phone: Start: 11-04-2024 [facility] Start: 11-04-2024 ambulatory Law Eduardo Facility:[facility] Start: 11-04-2024 End: 11-10-2024 Evaluation and management of inpatient No Primary Care Physician Facility:[facility] Start: 11-04-2024 Non-patient / Non-visit Dr. Taylor [facility] Start: 11-04-2024 Non-patient / Non-visit Dr. Bakari Domingo DO [facility] Work Phone: Start: 11-01-2024 ambulatory Lois Domingo Facility:[facility] Start: 11-01-2024 End: 11-04-2024 Evaluation and management of inpatient Dr. Lois Domingo DO -Rehab Unit Work Phone: Start: 11-01-2024 Non-patient / Non-visit Dr. Vee hansen MD [facility] Work Phone: Start: 11-01-[facility] Start: 11-01-2024 Non-patient / Non-visit [facility] Start: 10-31-2024 [facility] Start: 10-31-2024 Non-patient / Non-visit Dr. Foy [facility] Start: 10-30-2024 ambulatory No Primary Car e Physician Facility:[facility] Start: 10-30-2024 End: 11-01-2024 Evaluation and management of inpatient Dr. Nehemiah Haney DO -Progressive Care Unit Work Phone: Start: 08-19-2024 End: 08-19-2024 Patient encounter procedure Yefri Sotelo [place] [facility] Work Phone: Start: 08-19-2024 End: 08-19-2024 ambulatory No Primary Care Physician [facility] Work Phone: Start: 08-19-2024 End: 08-19-2024 ambulatory No Primary Care Physician Facility:[facility] Start: 11-27-2023 End: 11-27-2023 Patient encounter procedure Vonnie Dickerson APRN.TECHNOLOGY ARCHITECT Work Phone: [facility] Comment on above: Chest pressure (Prim michael Dx) Start: 11-27-2023 End: 11-27-2023 Emergency department patient visit No Primary Care Physician Facility:[facility] Start: 11-27-2023 End: 11-27-2023 ambulatory Facility:[facility] Procedures Date Procedure Procedure Detail Performing [...] The G to T nucleotide change encoding [id number] mutation was not detected. This result does [...] Activity Detail Author Start: 11-10-2024 Patient discharge [facility] Start: 11-09-2024 [facility] Start: 11-07-2024 Phlebotomy [facility] Start: 11-05-2024 Phlebotomy [facility] Start: 11-04-2024 [facility] Start: 11-04-2024 [facility] Start: 11-04-2024 Notification of physician [facility] Start: 11-04-2024 Patient education [facility] Start: 11-04-2024 Provision of activity privileges [facility] Start: 11-04-2024 Pulse taking [facility] Start: 11-04-2024 Taking patient vital signs [facility] Start: 11-04-2024 Wound care [facility] Start: 11-04-2024 [facility] Start: 11-04-2024 Following clinical pathway protocol [facility] Start: 11-04-2024 Referral to life insurance sales [facility] Start: 11-04-2024 Ambulation without limitation [facility] Start: 11-04-2024 Assessment of risk of venous thromboembolism [facility] Start: 11-04-2024 Insertion of catheter into peripheral vein [facility] Start: 11-04-2024 Measuring intake and output [facility] Start: 11-04-2024 Providing care according to standard [facility] Start: 11-04-2024 Referral to occupational therapist [facility] Start: 11-04-2024 Referral to service [facility] Start: 11-04-2024 [facility] Start: 11-04-2024 Consultation [facility] Start: 11-04-2024 Admission procedure [facility] Start: 11-04-2024 End: 11-04-2024 [facility] Start: 11-04-2024 Catheterization of left heart [facility] Start: 11-04-2024 Patient discharge [facility] Start: 11-04-2024 Catheterization of vein [facility] Start: 11-04-2024 Notification of physician [facility] Start: 11-04-2024 Preoperative care [facility] Start: 11-04-2024 Consultation [facility] Start: 11-04-2024 Referral to life insurance sales [facility] Start: 11-04-2024 [facility] Start: 11-04-2024 Consultation [facility] Start: 11-04-2024 Patient referral to dietitian [facility] Start: 11-03-2024 End: 11-04-2024 [facility] Start: 11-01-2024 End: 11-02-2024 Patient referral to dietitian [facility] Start: 11-01-2024 [facility] Start: 11-01-2024 [facility] Start: 11-01-2024 Following clinical pathway protocol [facility] Start: 11-01-2024 Recommendation to continue with treatment [facility] Start: 11-01-2024 Referral to service [facility] Start: 11-01-2024 Urinary bladder training [facility] Start: 11-01-2024 Admission procedure [facility] Start: 11-01-2024 Measuring intake and output [facility] Start: 11-01-2024 Vital signs measurements [facility] Start: 11-01-2024 [facility] Start: 11-01-2024 Referral to occupational therapist [facility] Start: 11-01-2024 Patient discharge [facility] Start: 11-01-2024 Speech therapy assessment [facility] Start: 10-31-2024 [facility] Start: 10-31-2024 Application of intermittent pneumatic compression device [facility] Start: 10-31-2024 Following clinical pathway protocol [facility] Start: 10-31-2024 Aspiration precautions [facility] Start: 10-31-2024 Cardiac monitoring [facility] Start: 10-31-2024 Catheterization of vein [facility] Start: 10-31-2024 Consultation [facility] Start: 10-31-2024 Elevation of head of bed [facility] Start: 10-31-2024 Exercises [facility] Start: 10-31-2024 Notification of physician [facility] Start: 10-31-2024 Oxygen therapy [facility] Start: 10-31-2024 End: 10-31-2024 Patient referral to dietitian [facility] Start: 10-31-2024 Referral to occupational therapist [facility] Start: 10-31-2024 Referral to service [facility] Start: 10-31-2024 Speech therapy assessment [facility] Start: 10-31-2024 Telemedicine consultation with patient [facility] Start: 10-31-2024 Tobacco use cessation education [facility] Start: 10-31-2024 End: 10-31-2024 [facility] Start: 10-31-2024 Vital signs measurements [facility] Start: 10-30-2024 MRI of brain without contrast Brain without Contrast [facility] Start: 10-30-2024 Hospital admission, emergency, from emergency room, medical nature [facility] Start: 10-30-2024 Admission procedure [facility] Start: 10-30-2024 Thyroid stimulating hormone measurement [facility] Start: 10-30-2024 Oxygen therapy [facility] Start: 10-30-2024 [facility] Start: 12-03-2023 Influenza vaccination Influenza Vaccine (#1) [facility] Start: 2023 Screening for malignant neoplasm of breast Mammogram Screening [facility] Start: 12-02-2022 Covid-19 Vaccine ( season) Covid-19 Vaccine () [facility] Start: 07-23-2021 Screening for malignant neoplasm of cervix Cervical Cancer Screening [facility] Start: 04-09-2020 Annual PCP Team Chronic Disease Visit Annual PCP Team Chronic Disease Visit [facility] Start: 10-10-2002 Hepatitis B Vaccine (1 of 3 - 19+ 3-dose series) Hepatitis B Vaccine (1 of 3 - 19+ 3-dose series) [facility] Start: 10-10-2002 Urine microalbumin profile DTaP,Tdap,Td Vaccine (1 - Tdap) [facility] Start: 10-10-2001 Anxiety Screening Anxiety Screening [facility] Start: 10-10-2001 BP Controlled (<130/80) BP Controlled (<130/80) [facility] Start: 10-10-2001 Depression Screening Depression Screening [facility] Start: 10-10-2001 Hepatitis C screening Hepatitis C Screening [facility] Start: 10-10-2001 HIV screening HIV Screening [facility] Amphetamines [Presen ce] in Urine by Screen method >1000 ng/mL [facility] Anion gap in Serum o r Plasma [facility] Benzodiazepine measurement, urine [facility] BUN/Creatinine ratio [facility] Calcium [Mass/volume ] in Serum or Plasma [facility] Carbon dioxide, tota l [Moles/volume] in Central venous blood [facility] Cardiac event recording [facility] Cocaine measurement, urine [facility] Creatinine [Mass/vol ume] in Serum or Plasma [facility] Erythropoietin (EPO) [Units/volume] in Serum or Plasma [facility] fentaNYL [Presence] in Urine by Screen method [facility] Folate [Moles/volume ] in Serum or Plasma [facility] Glucose [Mass/volume ] in Serum or Plasma [facility] JAK2 gene p.[id number] [Presence] in Blood or Tissue by Molecular genetics method [facility] JAK2 gene p.[id number] e [Presence] in Blood or Tissue by Molecular genetics method [facility] Measurement of renal function [facility] Methadone measuremen t, urine [facility] Patient Education Discharge Inst ructions for Stroke [facility] Work Phone: Phencyclidine [Prese nce] in Urine [facility] Potassium measurement [facility] Serum chloride measurement [facility] Sodium measurement [facility] Troponin T.cardiac [Mass/volume] in Serum or Plasma by High sensitivity method [facility] Troponin T.cardiac [Mass/volume] in Serum or Plasma by High sensitivity method [facility] Urea nitrogen [Mass/volume] in Serum or Plasma [facility] Urine cannabinoid measurement [facility] Urine opiate measurement [facility] Immunizations Immunization Date Immunization Notes Care Provider Fa cility 08-13-2020 Covid (Pfizer) No Primary Ca re Physician [facility] 07-23-2020 Covid (Pfizer) No Primary Ca re Physician [facility] Payers Date Payer Category Payer Self-pay [id number] 2023 Unknown [id number] 2013 Medicaid [id number] 2013 Unknown [id number] Unknown [id number] 2.16.8 [id number] Unknown [id number] 2.16.8 [id number] Unknown [id number] 2.16.8 40.1.676821.3.579.2.462 Unknown [id number] 2.16.8 40.1.509680.3.579.2.462 Unknown [id number] 2.16.8 40.1.898579.3.579.2.462 Unknown [id number] 2.16.8 40.1.029773.3.579.2.462 Unknown [id number] 2.16.8 40.1.270058.3.579.2.462 Unknown [id number] 2.16.8 40.1.089084.3.579.2.462 Unknown [id number] 2.16.8 40.1.185028.3.579.2.462 Unknown [id number] 2.16.8 40.1.954310.3.579.2.462 Unknown [id number] 2.16.8 40.1.617835.3.579.2.462 Unknown [id number] 2.16.8 40.1.028285.3.579.2.462 Unknown [id number] 2.16.8 40.1.548919.3.579.2.462 Unknown [id number] 2.16.8 40.1.373821.3.579.2.462 Unknown [id number] 2.16.8 40.1.014506.3.579.2.462 Unknown [id number] 2.16.8 40.1.121723.3.579.2.462 Unknown [id number] 2.16.8 40.1.619920.3.579.2.462 Unknown [id number] 2.16.8 40.1.059874.3.579.2.462 Unknown [id number] 2.16.8 40.1.078928.3.579.2.462 Unknown [id number] 2.16.8 40.1.693596.3.579.2.462 Social History Date Type Detail Facility [facility] Start: 01-02-2011 End: 01-03-2016 History of tobacco use Current smoker [facility] Start: 01-02-2011 End: 01-03-2016 History of tobacco use Cigarette Smoker [facility] Start: 02-18-2019 End: 03-11-2020 Cigarettes smoked current (pack per day) - Reported 0.5 [facility] Start: 02-18-2019 Tobacco use and exposure Smokeless tobacco non-user [facility] Start: 05-15-2020 Alcoholic beverage intake Current drinker of alcohol (finding) [facility] Start: 03-11-2020 End: 05-15-2020 Tobacco use panel [facility] National Score (1-10 0), lower number is lower risk Not on file [facility] Start: 1985 Sex assigned at Not on file [facility] Start: 11-27-2023 Tobacco smoking stat us RUST Never smoked tobacco (finding) [facility] Start: 1985 Sex Assigned At Female [facility] Start: 10-30-2024 End: 11-04-2024 Tobacco smoking status NHIS Smokes tobacco daily (finding) [facility] Start: 11-01-2024 Tobacco Use Tobacco Use [facility] Goals Date Patient Goal Desired Activity /State Functional Status Date Assessment Result Facility 11-10-2024 Functional status Bedside Commode [facility] Work Phone: 11-04-2024 Functional status Activity Abili ty With Assist of 1 [facility] Work Phone: 11-04-2024 Functional status Tolerates Activity Well [facility] Work Phone: 11-02-2024 Functional status Patient Activity Bedpan [facility] Work Phone: 11-01-2024 Functional status Stand and pivot [facility] Work Phone: Mental Status Date Assessment Result Facility 11-10-2024 Cognitive function Voice/Name [facility] Work Phone: 11-04-2024 Cognitive function Voice/Name [facility] Work Phone: 11-01-2024 Cognitive function Voice/Name [facility] Work Phone: 10-30-2024 Cognitive function Awake;Alert;A ppropriate;Fol lows Commands [facility] Work Phone: Clinical Notes 11-27-2023 to 11-10-2024 Note Date & Type Note Facility 11-10-2024 Discharge summary Note Date/Time November 10, 2024 8:55am [facility] Medical Records Department [address] [place] [address] Discharge Summary 11/10/24 0833 MR#: [id number] Acct: [id number] Name: JAYDA OSHEA Rep #:[id number] : 1985 39 From: Nehemiah Hammond MD PCP: Care Physician,No Primary Status :ADM IN Location: [place] [address] Providers Date of Admission: 11/04/24 Primary Care Physician: No Primary Care Phys Consultations 11/04/24 13:13 Consult: Oncology/Hematology [facility] Reason for Consult: 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 Domingo prior to transfer to [facility] 11/04/24 13:55 Consult: Cardiology Routine Consulting [...] insurance still pending prior to transfer to [facility] for 3. Erythrocytosis with concern for polycythemia [...] 81 [facility]able [facility]/01/24 atorvastatin 80 mg tablet [...] % (Auto) 51.5, Lymph % (Auto) 37.4, Snyder % (Auto) 8.7, Eos % (Auto) 1.6, [...] Rehab Unit/Facility Charges/Coding Visit Charges Inpatient E&M: 57212 Disch Hosp >30min 11/10/24 0855 <Electronically signed by Nehmeiah Hammond MD> Cosigner Signature (if applicable): CC: Dr. Nehemiah Hammond MD; No Primary Care Physician~ Signed [facility] Work Phone: 1(593) 680-625008-10-2025 Discharge summary [facility] Medical Records Department [address] [place] [address] Discharge Summary 11/10/24 0833 MR#: [id number] Acct: [id number] Name: JAYDA OSHEA Rep #:[id number] : 1985 39 From: Nehemiah Hammond MD PCP: Care Physician,No Primary Status :ADM IN Location: [place] [address] Providers Date of Admission: 11/04/24 Primary Care Physician: Felicita Primary Care Phys Consultations 11/04/24 13:13 Consult: Oncology/Hematology Routine Consulting Provider: [facility]) Reason for Consult: 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 Domingo prior to transfer to [facility] 11/04/24 13:55 Consult: Cardiology Routine Consulting [...] insurance still pending prior to transfer to [facility] for 3. Erythrocytosis with concern for polycythemia [...] % (Auto) 51.5, Lymph % (Auto) 37.4, Snyder % (Auto) 8.7, Eos % (Auto) 1.6, [...] Rehab Unit/Facility Charges/Coding Visit Charges Inpatient E&M: 76039 Disch Hosp >30min 11/10/24 0855 Cosigner Signature (if applicable): CC: Dr. Nehemiah Hammond MD; No Primary Care Physician~ Signed [facility]08-09-2025 Progress note Author Nehemiah Hammond [facility] Note Date/Time November 09, 2024 10: 29am [facility] Medical Records Department [address] [place] [address] Progress Note - Hospitalist 11/09/2429 MR#: [id number] Acct: [id number] Name: JAYDA OSHEA Rep #:[id number] : 1985 39 From: Nehemiah Hammond MD PCP: Care Physician,No Primary Status :ADM IN Location: [place] [address] Reason for Visit Chief Complaint: Chest pain [...] % (Auto) 55.6, Lymph % (Auto) 32.3, Snyder % (Auto) 9.0, Eos % (Auto) 2.2, [...] % (Auto) 55.4, Lymph % (Auto) 32.6, Snyder % (Auto) 9.2, Eos % (Auto) 1.9, [...] insurance still pending prior to transfer to [facility] for 3. Erythrocytosis with concern for polycythemia [...] 35 Minutes Charges/Coding Visit Charges Inpatient E&M: 03740 Subs Hosp L2 Date medically ready for discharge: 11/08/24 Reason for DC delay: Precert pending from insurance 11/09/24 1029 <Electronically signed by Nehemiah Hammond MD> Cosigner Signature (if applicable): CC: ~ Signed [facility] Work Phone: 1(231) 640-836608-09-2025 Progress note [facility] Medical Records Department [address] [place] [address] Progress Note - Hospitalist 11/09/24 0729 MR#: [id number] Acct: [id number] Name: JAYDA OSHEA Rep #:[id number] : 1985 39 From: Nehemiah Hammond MD PCP: Care Physician,No Primary Status :ADM IN Location: [place] [id number] Reason for Visit Chief Complaint: Chest [...] % (Auto) 55.6, Lymph % (Auto) 32.3, Snyder % (Auto) 9.0, Eos % (Auto) 2.2, [...] % (Auto) 55.4, Lymph % (Auto) 32.6, Snyder % (Auto) 9.2, Eos % (Auto) 1.9, Baso % (Auto) 0.6, Absolute Neuts (auto) 5.0, Absolute Lymphs (auto) 2.95, Nucleated RBC % 0, Sodium 140, Potassium 4.2, Watjvabe116, Carbon Dioxide 23.8, Anion Gap 9, BUN [...] insurance still pending prior to transfer to [facility] for 3. Erythrocytosis with concern for polycythemia [...] 35 Minutes Charges/Coding Visit Charges Inpatient E&M: 03818 Subs Hosp L2 Date medically ready for discharge: 11/08/24 Reason for DC delay: Precert pending from insurance 11/09/24 1029 Cosigner Signature (if applicable): CC: ~ Signed [facility]08-08-2025 Progress note Author Nehemiah Hammond [facility] Note Date/Time November 08, 2024 9:2 5am [facility] Medical Records Department [address] [place] [address] Progress Note - Hospitalist 11/08/24 0751 MR#: [id number] Acct: [id number] Name: JAYDA OSHEA Rep #:[id number] : 1985 39 From: Nehemiah Hammond MD PCP: Care Physician,No Primary Status :ADM IN Location: [place] [address] Reason for Visit Chief Complaint: Chest pain [...] % (Auto) 63.9, Lymph % (Auto) 24.1, Snyder % (Auto) 9.6, Eos % (Auto) 1.7, [...] % (Auto) 55.6, Lymph % (Auto) 32.3, Snyder % (Auto) 9.0, Eos % (Auto) 2.2, [...] 35 Minutes Charges/Coding Visit Charges Inpatient E&M: 96123 Subs Hosp L2 Date medically ready for discharge: 11/05/24 Reason for DC delay: Precert pending from insurance 11/08/24 09 <Electronically signed by Nehemiah Hammond MD> Cosigner Signature (if applicable): CC: ~ Signed [facility] Work Phone: 1(402) 228-986008-08-2025 Progress note [facility] Medical Records Department [address] [place] [address] Progress Note - Hospitalist 11/08/24 0751 MR#: [id number] Acct: [id number] Name: JAYDA OSHEA Maritza Rep #:[id number] : 1985 39 From: Nehemiah Hammond MD PCP: Care Physician,No Primary Status :ADM IN Location: [place] [address] Reason for Visit Chief Complaint: Chest pain [...] % (Auto) 63.9, Lymph % (Auto) 24.1, Snyder % (Auto) 9.6, Eos % (Auto) 1.7, [...] % (Auto) 55.6, Lymph % (Auto) 32.3, Snyder % (Auto) 9.0, Eos % (Auto) 2.2, [...] 35 Minutes Charges/Coding Visit Charges Inpatient E&M: 39332 Subs Hosp L2 Date medically ready for discharge: 11/05/24 Reason for DC delay: Precert pending from insurance 11/08/24924 Cosigner Signature (if applicable): CC: ~ Signed [facility]08-07-2025 Progress note Author Nehemiah Hammond [facility] Note Date/Time November 07, 2024 10: 13am [facility] Medical Records Department [address] [place] [address] Progress Note - Hospitalist 11/07/24 1006 MR#: [id number] Acct: [id number] Name: JAYDA OSHEA Rep #:[id number] : 1985 39 From: Nehemiah Hammond MD PCP: Care Physician,No Primary Status :ADM IN Location: [place] [address] Reason for Visit Chief Complaint: Chest pain [...] 35 Minutes Charges/Coding Visit Charges Inpatient E&M: 32003 Subs Hosp L2 Date medically ready for discharge: 11/05/24 Reason for DC delay: Precert pending from insurance 11/07/24 1013 <Electronically signed by Nehemiah Hammond MD> Cosigner Signature (if applicable): CC: ~ Signed [facility] Work Phone: 1([phone]) 973-153108-07-2025 Progress note [facility] Medical Records Department [address] [place] [address] Progress Note - Hospitalist 11/07/24 1006 MR#: [id number] Acct: [id number] Name: JAYDA OSHEA Maritza Rep #:[id number] : 1985 39 From: Nehemiah Hammond MD PCP: Care Physician,No Primary Status :ADM IN Location: [place] [address] Reason for Visit Chief Complaint: Chest pain [...] 35 Minutes Charges/Coding Visit Charges Inpatient E&M: 89682 Subs Hosp L2 Date medically ready for discharge: 11/05/24 Reason for DC delay: Precert pending from insurance 11/07/24 1013 Cosigner Signature (if applicable): CC: ~ Signed [facility]08-06-2025 Progress note Author Nehemiah Hammond [facility] Note Date/Time November 06, 2024 8:5 9am [facility] Medical Records Department [address] [place] [address] Progress Note - Hospitalist 11/06/24 0858 MR#: [id number] Acct: [id number] Name: JAYDA OSHEA Maritza Rep #:[id number] : 1985 39 From: Nehemiah Hammond MD PCP: Care Physician,No Primary Status :ADM IN Location: [place] [address] Reason for Visit Chief Complaint: Chest pain [...] % (Auto) 58.7, Lymph % (Auto) 27.6, Snyder % (Auto) 10.9 H, Eos % (Auto) [...] with no acute abdominopelvic abnormalities. Reading Location: [facility] Physical Exam Narrative GENERAL: cooperative HEENT: Atraumatic; [...] 35 Minutes Charges/Coding Visit Charges Inpatient E&M: 15505 Subs Hosp L2 Date medically ready for discharge: 11/05/24 Reason for DC delay: Precert pending from insurance 11/06/24 0859 <Electronically signed by Nehemiah Hammond MD> Cosigner Signature (if applicable): CC: ~ Signed [facility] Work Phone: 1(687) 371-953208-06-2025 Progress note Author Law Eduardo [facility] Note Date/Time November 06, 2024 7:3 7am [facility] Medical Records Department [address] [place] [address] Progress Note - Cardiology 11/06/24732 MR#: [id number] Acct: [id number] Name: JAYDA OSHEA Rep #:[id number] : 1985 39 From: Law Eduardo MD PCP: Care Physician,No Primary Status :ADM IN Location: [place] [address] Subjective Subjective Patient seen and evaluated Objective [...] % (Auto) 58.7, Lymph % (Auto) 27.6, Snyder % (Auto) 10.9 H, Eos % (Auto) [...] % (Auto) 58.7, Lymph % (Auto) 27.6, Snyder % (Auto) 10.9 H, Eos % (Auto) [...] focal hepatic process is noted. Reading Location: [facility] Abdomen/Pelvis CT 11/05/24 14:54 IMPRESSION: Unremarkable study with no acute abdominopelvic abnormalities. Reading Location: [facility] Assessment & Plan Assessment/Plan (1) Chest pain: [...] Cosigner Signature (if applicable): CC: ~ Signed [facility] Work Phone: [phone]) 224-552308-06-2025 Progress note [facility] Medical Records Department [address] [place] [address] Progress Note - Hospitalist 11/06/24 0858 MR#: [id number] Acct: [id number] Name: JAYDA OSHEA Rep #:[id number] : 1985 39 From: Nehemiah Hammond MD PCP: Care Physician,No Primary Status :ADM IN Location: [place] [address] Reason for Visit Chief Complaint: Chest pain [...] Neut %(Auto) 58.7, Lymph % (Auto) 27.6, Snyder % (Auto) 10.9 H, Eos % (Auto) [...] with no acute abdominopelvic abnormalities. Reading Location: [facility] Physical Exam Narrative GENERAL: cooperative HEENT: Atraumatic; [...] 35 Minutes Charges/Coding Visit Charges Inpatient E&M: 31581 Subs Hosp L2 Date medically ready for discharge: 11/05/24 Reason for DC delay: Precert pending from insurance 11/06/24 0859 Cosigner Signature (if applicable): CC: ~ Signed [facility]08-06-2025 Progress note Author Ximena Mccormick [facility] Note Date/Time November 06, 2024 6:4 7am [facility] Medical Records Department [address] [place] [address] Progress Note - Hospitalist 11/06/24 0546 MR#: [id number] Acct: [id number] Name: JAYDA OSHEA Rep #:[id number] : 1985 39 From: Ximena Mccormick MD PCP: Care Physician,No Primary Status :ADM IN Location: [place] [address] Hospitalist Note Patient with significant asymptomatic bout of VT. Resolved. Cardiology made aware. Will obtain a.m. labs including magnesium. 11/06/24 0647 <Electronically signed by Ximena Mccormick MD> Cosigner Signature (if applicable): CC: ~ Signed [facility] Work Phone: 1(902) 426-214208-06-2025 Progress note [facility] Medical Records Department [address] [place] [address] Progress Note - Cardiology 11/06/24732 MR#: [id number] Acct: [id number] Name: JAYDA OSHEA Rep #:[id number] : 1985 39 From: Law Eduardo MD PCP: Care Physician,No Primary Status :ADM IN Location: [place] [address] Subjective Subjective Patient seen and evaluated Objective [...] Neut %(Auto) 58.7, Lymph % (Auto) 27.6, Snyder % (Auto) 10.9 H, Eos % (Auto) [...] % (Auto) 58.7, Lymph % (Auto) 27.6, Snyder % (Auto) 10.9 H, Eos % (Auto) [...] focal hepatic process is noted. Reading Location: [facility] Abdomen/Pelvis CT 11/05/24 14:54 IMPRESSION: Unremarkable study with no acute abdominopelvic abnormalities. Reading Location: [id number] Assessment & Plan Assessment/Plan (1) Chest pain: [...] Cosigner Signature (if applicable): CC: ~ Signed [facility]08-06-2025 Progress note [facility] Medical Records Department [address] [place] [address] Progress Note - Hospitalist 11/06/24 0546 MR#: [id number] Acct: [id number] Name: JAYDA OSHEA Rep #:[id number] : 1985 39 From: Ximena Mccormick MD PCP: Care Physician,No Primary Status :ADM IN Location: [place] [address] Hospitalist Note Patient with significant asymptomatic bout of VT. Resolved. Cardiology made aware. Will obtain a.m.labs including magnesium. 11/06/24 0647 Cosigner Signature (if applicable): CC: ~ Signed [facility]08-05-2025 Radiology Diagnostic study note [facility] Imaging Services [address] [place] [address] Abdomen/Pelvis WITH Contrast MR#: [id number] Acct: [id number] Name: JAYDA OSHEA Rep #: [id number] : 1985 F 39 From: Chaz Hugo MD PCP: Care Physician,No Primary Status: ADM IN Study:Abdomen/Pelvis WITH Contrast Date of Ex am: 11/05/24 Exam# [id number] Ordering Dr: Mya Hammond MD PROCEDURE: ABDOMEN/PELVIS [...] with no acute abdominopelvic abnormalities. Reading Location: [facility] CC: Dr. Nehemiah Hammond MD; No Primary Care Physician ~ Market Analyst: Signed [facility]08-05-2025 Progress note Author Nehemiah Hammond [facility] Note Date/Time November 05, 2024 11: 20am [facility] Medical Records Department [address] [place] [address] Progress Note - Hospitalist 11/05/24 1117 MR#: [id number] Acct: [id number] Name: JAYDA OSHEA Rep #:[id number] : 1985 39 From: Nehemiah Hammond MD PCP: Care Physician,No Primary Status :ADM IN Location: [place] [address] Reason for Visit Chief Complaint: Chest pain [...] focal hepatic process is noted. Reading Location: [place] [address] Physical Exam Narrative GENERAL: cooperative HEENT: Atraumatic; [...] 36 Minutes Charges/Coding Visit Charges Inpatient E&M: 93214 Subs Hosp L2 Date medically ready for discharge: 11/05/24 Reason for DC delay: Precert pending from insurance 11/05/24 1120 <Electronically signed by Nehemiah Hammond MD> Cosigner Signature (if applicable): CC: ~ Signed [facility] Work Phone: 1(937) 364-403808-05-2025 Progress note [facility] Medical Records Department [address] [place] [address] Progress Note - Hospitalist 11/05/24 1117 MR#: [id number] Acct: [id number] Name: JAYDA OSHEA Rep #:[id number] : 1985 39 From: Nehemiah Hammond MD PCP: Care Physician,No Primary Status :ADM IN Location: [facility] [id number] Reason for Visit Chief Complaint: Chest [...] focal hepatic process is noted. Reading Location: [place] [address] Physical Exam Narrative GENERAL: cooperative HEENT: Atraumatic; [...] 36 Minutes Charges/Coding Visit Charges Inpatient E&M: 10953 Subs Hosp L2 Date medically ready for discharge: 11/05/24 Reason for DC delay: Precert pending from insurance 11/05/24 1120 Cosigner Signature (if applicable): CC: ~ Signed [facility]08-05-2025 Radiology Diagnostic study note [facility] Imaging Services [address] [place] [address] Abdomen Complete MR#: [id number] Acct: [id number] Name: JAYDA OSHEA Rep #: [id number] : 1985 F 39 From: Demetrius Zarate MD PCP: Care Physician,No Primary Status: ADM IN Study:Abdomen Complete Date of Exam: 08/25 Exam# [id number] Ordering Dr: Kaleb Vick DO PROCEDURE: ABDOMEN [...] focal hepatic process is noted. Reading Location: [place] [address] CC: Dr. Kaleb Horta DO; No Primary Care Physician ~ Market Analyst: Signed [facility]08-04-2025 Consult note Author Shaun [facility] Note Date/Time November 04, 2024 6:1 6pm [facility] [address] [place] [address] Consultation - Oncology IP 11/04/24 1746 MR#: [id number] Acct: [id number] Name: JAYDA OSHEA Rep #:[id number] : 1985 39 From: Shaun Del Angel MD PCP: Care Physician,No Primary Status :ADM IN Location: [place] [address] Assessment & Plan Assessment/Plan (1) Polycythemia: Status: [...] Do you have a Healthcare Power of Finisher Cold Rolling?: No [facility] Medical History HTN (hypertension) ADHD Migraine Strain [...] DO; No Primary Care Physician ~ Signed [facility] Work Phone: 1(889) 736-584908-04-2025 History and physical note Author Kaleb Horta [facility] Note Date/Time November 04, 2024 4:4 4pm [facility] Medical Records Department [address] [place] [address] H&P Exam - Hospitalist 11/04/24 1309 MR#: [id number] Acct: [id number] Name: JAYDA OSHEA Rep #:[id number] : 1985 39 From: Kaleb bridges DO PCP: Care Physician,No Primary Status :ADM IN Location: [place] [address] HPI - General General Date of Admission: 11/04/24 Date of Service: 11/04/24 Chief Complaint: Chest pain HPI Narrative JAYDA OSHEA, is a 39 F who presented from [facility] rehab unit for chest pain. Patient was [...] admitted to the PCU for further management. [facility] Medical History HTN (hypertension) ADHD Migraine Strain [...] a 39-year-old female who presented from the [facility] rehab unit for chest pain. 1. Chest [...] 75 minutes. Charges/Coding Visit Charges Inpatient E&M: 35014 Init Hosp L3 11/04/24 7296 <Electronically signed by Kaleb Horta DO> Cosigner Signature (if applicable): CC: Dr. Kaleb Horta DO; No Primary Care Physician~ Signed [facility] Work Phone: 1(803) 434-534908-04-2025 Consult note [facility] [address] [place] [address] Consultation - Oncology IP 11/04/24 1746 MR#: [id number] Acct: [id number] Name: JAYDA OSHEA Rep #:[id number] : 1985 39 From: Shaun Del Angel MD PCP: Care Physician,No Primary Status :ADM IN Location: [place] [id number]- Assessment & Plan Assessment/Plan (1) Polycythemia: Status: [...] Do you have a Healthcare Power of Finisher Cold Rolling?: No [facility] Medical History HTN (hypertension) ADHD Migraine Strain [...] Test Negative 11/04/24 1816 CC: Dr. Kaleb Horta DO; No Primary Care Physician ~ Signed [facility]08-04-2025 History and physical note [facility] Medical Records Department [address] [place] [address] H&P Exam - Hospitalist 11/04/24 1309 MR#: [id number] Acct: [id number] Name: JAYDA OSHEA Rep #:[id number] : 1985 39 From: Kaleb bridges DO PCP: Care Physician,No Primary Status :ADM IN Location: [place] [address] HPI - General General Date of Admission: 11/04/24 Date of Service: 11/04/24 Chief Complaint: Chest pain HPI Narrative JAYDA OSHEA, is a 39 F who presented from [facility] rehab unit for chest pain. Patient was [...] admitted to the PCU for further management. [facility] Medical History HTN (hypertension) ADHD Migraine Strain [...] a 39-year-old female who presented from the [facility] rehab unit for chest pain. 1. Chest [...] 75 minutes. Charges/Coding Visit Charges Inpatient E&M: 05170 Init Hosp L3 11/04/24 4692 Cosigner Signature (if applicable): CC: Dr. Kaleb Horta, DO; No Primary Care Physician~ Signed [facility]08-04-2025 Discharge summary [facility] Medical Records Department [address] [place] [address] Discharge Summary 11/04/24 1032 MR#: [id number] Acct: [id number] Name: JAYDA OSHEA Rep #:[id number] : 1985 39 From: Lois Jennifer Domingo DO PCP: Care Physician,No Primary Status :ADM IN Location: [place] [address] Providers Date of Admission: 11/01/24 Date of Discharge: 11/04/24 Primary Care Physician: No Primary Care Phys Consultations 11/04/24 10:09 Consult: Cardiology Routine Consulting Provider: [facility] Reason for Consult: chest pain with abnormal [...] Neut % (Auto) 65.7, Lymph % (Auto) 24.9,Snyder % (Auto) 8.2, Eos % (Auto) 0.6, Baso % (Auto) 0.4, Absolute Neuts (auto) 7.9 H, Absolute Lymphs (auto) 3.01, Nucleated RBC % 0 11/04/24 09:40: Troponin T High Sens Cancelled Indicators for Scoring Admitted with or Primary Diagnosis of CVA/Stroke: Yes Hx of CVA/Stroke: No Modified [place] Score MRS Score at time of Evaluation: [...] the right side.) 8. Sensory: 1 - Laqh-qo-uzxqugpw sensory loss; 9. Best Language: 0 - No aphasia; normal 10. Dysarthria: 1 = Voxg-di-lwtqfofa dysarthria; 11. Extinction and Inattention: 0 - [...] Provider] - Charges/Coding Visit Charges Inpatient E&M: 15768 Disch Hosp >30min Hospital Course RU Procedures Transesophageal Echo Summary of Care Provided Minutes Spent on Discharge: 55 Hospital Course: Patient is a 39-year-old female who presented to the emergency department at [facility] on 10/30/2024 complaining of left arm weakness, [...] 60%. Bubble contrast study was negative for mkwfs-cq-nfrj interatrial shunt and no thrombus was detected [...] to the acute inpt rehab unit at [facility] on 11/01/24 for 3 hours of [...] Dr. Eduardo from cardiology who recommended adding mdzicurvio41 mg p.o. twice daily. She is going [...] Domingo, DO; No Primary Care Physician~ Signed [facility]08-04-2025 [facility]08-02-2025 History and physical note Author Luis Ravi [facility] Note Date/Time November 02, 2024 1:[facility] [address] [place] [address] Post Admission Physician Pearl 11/02/24 1306 MR#: [id number] Acct: [id number] Name: JAYDA OSHEA Rep #:[id number] : 1985 39 From: Luis Ravi MD PCP: Care Physician,No Primary Status :ADM IN Location: [place] [address] Admission Information Primary Diagnosis:: Stroke, left hemiplegia, [...] Skin integrity and Medication Management Patient needs Enterprise Systems Administrator/ Case Management for: Discharge Planning, Arranging Home [...] Cosigner Signature (if applicable): CC: ~ Signed [facility] Work Phone: 1(360) 818-700908-02-2025 History and physical note [facility] Medical Records Department [address] [place] [address] Post Admission Physician Pearl 11/02/24 1306 MR#: [id number] Acct: [id number] Name: JAYDA OSHEA Rep #:[id number] : 1985 39 From: Luis Ravi MD PCP: Care Physician,No Primary Status :ADM IN Location: [place] [address] Admission Information Primary Diagnosis:: Stroke, left hemiplegia, [...] Skin integrity and Medication Management Patient needs Enterprise Systems Administrator/ Case Management for: Discharge Planning, Arranging Home [...] Cosigner Signature (if applicable): CC: ~ Signed [facility]08-01-2025 History and physical note Author Luis Ravi [facility] Note Date/Time November 01, 2024 4:5 3pm [facility] Medical Records Department [address] [place] [address] History & Physical Exam 11/01/24 1617 MR#: [id number] Acct: [id number] Name: JAYDA OSHEA Rep #:[id number] : 1985 39 From: Luis Ravi MD PCP: Care Physician,No Primary Status :ADM IN Location: [id number] HPI - General General Date of Admission: 11/01/24 Date of Service: 11/01/24 Chief Complaint: Here for 3 hours daily rehabilitation. HPI Narrative JAYDA OSHEA, is a 39 Female who presents with followin10/30/2024 [facility] ED stroke alert. Sudden left arm [...] migraine headache, headache improved. 10/30/[address] [facility]. MRI brain, Echo, Aspirin, Statin for [...] daily rehabilitation, strengthening, prior to disposition determination. [facility] Medical History (Updated 11/01/24 @ 16:38 by [...] 0 - Absent 8. Sensory: 1 - Kcsr-bu-wmfieduw sensory loss; 9. Best Language: 0 - [...] rhinitis - Loratadine 10mg daily prn. 11/01/24 1651 <Electronically signed by Luis Ravi MD> Cosigner Signature (if applicable): CC: Dr. Luis Ravi MD; No Primary Care Physician~ Signed [facility] Work Phone: 1(932) 161-403808-01-2025 History and physical note [facility] Medical Records Department [address] [place] [address] History & Physical Exam 11/01/24 1617 MR#: [id number] Acct: [id number] Name: DAYOJAYDA Rep #:[id number] : 1985 39 From: Luis Ravi MD PCP: Care Physician,No Primary Status :ADM IN Location: [place] [address]1 HPI - General General Date of Admission: 11/01/24 Date of Service: 11/01/24 Chief Complaint: Here for 3 hours daily rehabilitation. HPI Narrative JAYDA OSHEA, is a 39 Female who presents with followin10/30/2024 [facility] ED stroke alert. Sudden left arm [...] migraine headache, headache improved. 10/30/[address] [facility]. MRI brain, Echo, Aspirin, Statin for [...] daily rehabilitation, strengthening, prior to disposition determination. [facility] Medical History (Updated 11/01/24 @ 16:38 by [...] CVA/Stroke: Yes Hx of CVA/Stroke: No Modified [place] Score MRS Score at time of Evaluation: [...] 0 - Absent 8. Sensory: 1 - Khnk-uc-geyccybp sensory loss; 9. Best Language: 0 - [...] rhinitis - Loratadine 10mg daily prn. 11/01/24 1654 Cosigner Signature (if applicable): CC: Dr. Luis Ravi MD; No Primary Care Physician~ Signed [facility]08-01-2025 [facility]08-01-2025 Discharge summary [facility] Medical Records Department [address] [place] [address] Instructions for Home/Discharge Instructions 11/01/24 1422 MR#: [id number] Acct: [id number] Name: JAYDA OSHEA Rep #:[id number] : 1985 39 From: Vee Stuart MD [...] Recorder Preventi (Urgent) Timeframe: 1 Day Facility: [facility] - Location: Cardiovascular Services Ordered By: [...] Primary Care Physician; Mark Garcias MD ~ [facility]08-01-2025 [facility]07-31-2025 Consult note Author Tong [facility] Note Date/Time October 31, 2024 1:03 pm [facility] Medical Records Department [address] [place] [address] Consultation - Neurology 10/31/24 1253 MR#: [id number] Acct: [id number] Name: JAYDA OSHEA Rep #:[id number] : 1985 39 From: Tong Rai MD PCP: Care Physician,No Primary Status :ADM IN Location: [place] [address] Assessment and Plan: Stroke Assessment/Plan JAYDA OSHEA [...] given her subtle exam fluctuations. In the group home, BP goal is < 130/85. If her [...] snoring, apneic episodes of excessive daytime somnolence. [facility] Medical History (Updated 10/31/24 @ 00:55 by [...] 79.3 H, Lymph % (Auto) 15.0 L, Snyder % (Auto) 4.2, Eos % (Auto) 0.4, [...] 9:01 pm EST on 10/30/24. Reading Location: [facility] Head/Neck CTA 10/30/24 20:52 IMPRESSION: No acute large vessel occlusion. No high grade stenosis. Reading Location: [facility] Chest X-Ray 10/30/24 21:41 IMPRESSION: No acute cardiopulmonary disease. Reading Location: [facility] Brain MRI 10/31/24 06:00 IMPRESSION: There [...] Thai at the time ofdictation. [facility] Active Medications Active Medications Active [...] 10/31/24 09:56 IV 10/31/24 14:02 70 mls/hr .P12A80P MARIN Infusion Labetalol HCl 10 - 20 [...] and with change in RN caregiver. Freq: [id number] Protocol: Activity Type Activity Date Activity User E-sign Co-sign Detail Recorded Client Recorded Date Recorded By Document 10/31/24 10:00 [facility] [id number] 10/31/24 10:07 [facility] 10/31/24 10:00 NIH Stroke Scale [NIHSS] [...] 0 - Absent 8. Sensory: 1 - Jejl-ld-wphtrmrp sensory loss; 9. Best Language: 0 - No aphasia; normal 10. Dysarthria: 1 = Msab-hg-jxpbiuqp dysarthria; 11. Extinction and Inattention: 0 - No abnormality Total: 10 10/31/24 1303 <Electronically signed by Tong Rai MD> Cosigner Signature (if applicable): CC: No Primary Care Physician~ Signed [facility] Work Phone: 1([phone]) 951-196607-31-2025 Consult note [facility] Medical Records Department [address] [place] [address] Consultation - Neurology 10/31/24 1253 MR#: [id number] Acct: [id number] Name: JAYDA OSHEA Rep #:[id number] : 1985 39 From: Tong Rai MD PCP: Care Physician,No Primary Status :ADM IN Location: [place] [address] Assessment and Plan: Stroke Assessment/Plan JAYDA OSHEA [...] given her subtle exam fluctuations. In the group home, BP goal is < 130/85. If her [...] snoring, apneic episodes of excessive daytime somnolence. [facility] Medical History (Updated 10/31/24 @ 00:55 by [...] 79.3 H, Lymph % (Auto) 15.0 L, Snyder % (Auto) 4.2, Eos % (Auto) 0.4, [...] 209 H, LDL Cholesterol, Calc 108, VLDL Xvfseahfrzv24, HDL Cholesterol 61, Cholesterol/HDL Ratio 3.43, Vitamin B12 484 Imaging Radiology Impression Brain CT 10/30/24 20:46 IMPRESSION: Left frontal lobe periventricular white matter focal hypodensity measuring approximally 7 x 7 mm, which may reflect a lacunar infarction however acute infarction is not entirely excluded. Dr. Silva was notified by Jeanette De Jesus at 9:01 pm EST on 10/30/24. Reading Location: [facility] Head/Neck CTA 10/30/24 20:52 IMPRESSION: No acute large vessel occlusion. No high grade stenosis. Reading Location: [facility] Chest X-Ray 10/30/24 21:41 IMPRESSION: No acute cardiopulmonary disease. Reading Location: [facility] Brain MRI 10/31/24 06:00 IMPRESSION: There [...] Thai at the time ofdictation. Reading Location: [facility] Active Medications Active Medications Active Medications: Current [...] 22:00 Erythromycin Base 1 Opth.Tube OPHTHALMIC QHS [facility] Hydralazine HCl 5 mg 07/31/25 01:12 Hydralazine 20 Mg/Ml Vial IV 11/01/24 01:12 Q30M PRN maintain BP parameters with HR <60 Sodium Chloride 1,000 mls @ 70 mls/hr 10/30/24 23:45 10/31/24 09:56 IV 10/31/24 14:02 70 mls/hr .[id number] MARIN Infusion Labetalol HCl 10 - 20 [...] and with change in RN caregiver. Freq: [id number] Protocol: Activity Type Activity Date Activity User E-sign Co-sign Detail Recorded Client Recorded Date Recorded By Document 10/31/24 10:00 [facility] [id number] 10/31/24 10:07 [facility] 10/31/24 10:00 NIH Stroke Scale [NIHSS] [...] 0 - Absent 8. Sensory: 1 - Comj-tm-jcupznpi sensory loss; 9. Best Language: 0 - No aphasia; normal 10. Dysarthria: 1 = Aweh-uf-bplzfetv dysarthria; 11. Extinction and Inattention: 0 - No abnormality Total: 10 10/31/24 1303 Cosigner Signature (if applicable): CC: No Primary Care Physician~ Signed [facility]07-31-2025 Progress note Author Sen Clarke [facility] Note Date/Time October 31, 2024 9:46 am [facility] Medical Records Department [address] [place] [address] Progress Note - Hospitalist 10/31/24 0938 MR#: [id number] Acct: [id number] Name: JAYDA OSHEA Rep #:[id number] : 1985 39 From: Sen sherwood MD PCP: Care Physician,No Primary Status :ADM IN Location: [place] [id number]- [id number] Subjective Subjective Still having a migraine, [...] 79.3 H, Lymph % (Auto) 15.0 L, Snyder % (Auto) 4.2, Eos % (Auto) 0.4, [...] 9:01 pm EST on 10/30/24. Reading Location: [facility] Head/Neck CTA 10/30/24 20:52 IMPRESSION: No acute large vessel occlusion. No high grade stenosis. Reading Location: [facility] Chest X-Ray 10/30/24 21:41 IMPRESSION: No acute cardiopulmonary disease. Reading Location: [facility] Physical Exam Narrative General: Alert, Oriented [...] DVT: SCDs Charges/Coding Visit Charges Inpatient E&M: 05096 Subs Hosp L2 NIHSS NIHSS Nursing Documentation NIHSS Nursing Documentation: NIHSS: Ischemic Stroke/TIA Start: 10/31/24 01:12 Text: For PCU Patients: NIH and Neuro Check every 4 Status: Active hours, PRN and with change in RN caregiver. Freq: [id number] Protocol: Activity Type Activity Date Activity User E-sign Co-sign Detail Recorded Client Recorded Date Recorded By Document 10/31/24 06:00 [facility] [id number] 10/31/24 06:25 [facility] 10/31/24 06:00 NIH Stroke Scale [NIHSS] [...] Cosigner Signature (if applicable): CC: ~ Signed [facility] Work Phone: 1(752) 861-870007-31-2025 Progress note [facility] Medical Records Department [address] [place] [address] Progress Note - Hospitalist 10/31/2438 MR#: [id number] Acct: [id number] Name: JAYDA OSHEA Rep #:[id number] : 1985 39 From: Sen sherwood MD PCP: Care Physician,No Primary Status :ADM IN Location: [place] [address] Subjective Subjective Still having a migraine, and [...] 79.3 H, Lymph % (Auto) 15.0 L, Snyder % (Auto) 4.2, Eos % (Auto) 0.4, [...] 209 H, LDL Cholesterol, Calc 108, VLDL Cjkbnjfadzh74, HDL Cholesterol 61, Cholesterol/HDL Ratio 3.43, Vitamin B12 484 Radiography Diagnostic Testing: Radiology Impression Brain CT 10/30/24 20:46 IMPRESSION: Left frontal lobe periventricular white matter focal hypodensity measuring approximally 7 x 7 mm, which may reflect a lacunar infarction however acute infarction is not entirely excluded. Dr. Silva was notified by Jeanette De Jesus at 9:01 pm EST on 10/30/24. Reading Location: [facility] Head/Neck CTA 10/30/24 20:52 IMPRESSION: No acute large vessel occlusion. No high grade stenosis. Reading Location: [facility] Chest X-Ray 10/30/24 21:41 IMPRESSION: No acute cardiopulmonary disease. Reading Location: [facility] Physical Exam Narrative General: Alert, Oriented [...] DVT: SCDs Charges/Coding Visit Charges Inpatient E&M: 81250 Subs Hosp L2 NIHSS NIHSS Nursing Documentation NIHSS Nursing Documentation: NIHSS: Ischemic Stroke/TIA Start: 10/31/24 01:12 Text: For PCU Patients: NIH and Neuro Check every 4 Status: Active hours, PRN and with change in RN caregiver. Freq: [id number] Protocol: Activity Type Activity Date Activity User E-sign Co-sign Detail Recorded Client Recorded Date Recorded By Document 10/31/24 06:00 [facility] [id number] 10/31/24 06:25 [facility] 10/31/24 06:00 NIH Stroke [...] Cosigner Signature (if applicable): CC: ~ Signed [facility]07-31-2025 History and physical note Author Nehemiah Medrano [facility] Note Date/Time October 31, 2024 6:31 am [facility] Medical Records Department [address] [place] [address] H&P Exam - Hospitalist 10/30/24 2572 MR#: [id number] Acct: [id number] Name: JAYDA OSHEA Rep #:[id number] : 1985 39 From: Nehemiah Cordova DO PCP: Care Physician,No Primary Status :ADM IN Location: [place] [address] 1 HPI - General General Date of [...] seasonal allergies; on loratadine who presents to [facility] ER complaining of acute Left-sided weakness [...] status expected to extend beyond 2 midnights. [facility] Medical History (Updated 10/31/24 @ 00:55 by [...] 79.3 H, Lymph % (Auto) 15.0 L, Snyder % (Auto) 4.2, Eos % (Auto) 0.4, [...] 9:01 pm EST on 10/30/24. Reading Location: [facility] Head/Neck CTA 10/30/24 20:52 IMPRESSION: No acute large vessel occlusion. No high grade stenosis. Reading Location: [facility] Chest X-Ray 10/30/24 21:41 IMPRESSION: No acute cardiopulmonary disease. Reading Location: [id number] Assessment & Plan Assessment/Plan (1) Ischemic cerebrovascular [...] artery vasospasm. Give acetaminophen as needed for yaik-ra-bsrmanst (level 1-5/10) pain or fever. Givemorphine IV [...] 75 minutes. Charges/Coding Visit Charges Inpatient E&M: 86789 Init Hosp L3 10/31/24 0631 <Electronically signed by Nehemiah Haney DO> Cosigner Signature (if applicable): CC: Dr. Nehemiah Haney DO; No Primary Care Physician~ Signed [facility] Work Phone: 1([phone]) 425-699007-31-2025 History and physical note [facility] Medical Records Department [address] [place] [address] H&P Exam - Hospitalist 10/30/24 2323 MR#: [id number] Acct: [id number] Name: JAYDA OSHEA Rep #:[id number] : 1985 39 From: Nehemiah Cordova DO PCP: Care Physician,No Primary Status :ADM IN Location: [place] [address] HPI - General General Date of Admission: [...] seasonal allergies; on loratadine who presents to [facility] ER complaining of acute Left-sided weakness [...] status expected to extend beyond 2 midnights. [facility] Medical History (Updated 10/31/24 @ 00:55 by [...] 79.3 H, Lymph % (Auto) 15.0 L, Snyder % (Auto) 4.2, Eos % (Auto) 0.4, [...] 9:01 pm EST on 10/30/24. Reading Location: [facility] Head/Neck CTA 10/30/24 20:52 IMPRESSION: No acute large vessel occlusion. No high grade stenosis. Reading Location: [facility] Chest X-Ray 10/30/24 21:41 IMPRESSION: No acute cardiopulmonary disease. Reading Location: [facility] Assessment & Plan Assessment/Plan (1) Ischemic [...] artery vasospasm. Give acetaminophen as needed for gufe-jr-fgygajno (level 1-5/10) pain or fever. Givemorphine IV [...] 75 minutes. Charges/Coding Visit Charges Inpatient E&M: 34306 Init Hosp L3 10/31/24 0631 Cosigner Signature (if applicable): CC: Dr. Nehemiah Haney, DO; No Primary Care Physician~ Signed [facility]07-31-2025 Discharge summary Author Domenico Silva [facility] Note Date/Time October 31, 2024 1:01 am [facility] Medical Records Department [address] [place] [address] Emergency Department Summary 10/30/24 MR#: [id number] Acct: [id number] Name: DAYORAVINDER MurdockChristina Salas Rep #:[id number] : 1985 39 From: Domenico Poon PCP: Care Physician,No Primary Status :ADM IN Location: [place] [address] HPI History of Present Illness Chief Complaint: Stroke Alert Informant: patient and EMS Onset/Context/Timing Onset: Today Context: Sudden Onset Timing: Continuous Quality and Location: Positive for Left Arm Weakness and Left Leg Weakness Onset: Last known well was 1530 today (approximately 5 hours and 15 minutes 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 Patient denies any fevers or chills. [facility] Medical History (Updated 10/31/24 @ 00:54 by [...] oriented x3 and CN's II-XII intact bilaterally [place] Coma Scale: document GCS findings Spontaneous Obeys Commands Oriented 15 Sensorium / Orientation: alert Speech: speech normal MDM MDM MDM Narrative Medical decision making narrative: Prehospital stroke alert was called. [facility] Patient had a [...] 79.3 H Lymph % (Auto) 15.0 L Snyder % (Auto) 4.2 Eos % (Auto) 0.4 [...] 9:01 pm EST on 10/30/24. Reading Location: [facility] Head/Neck CTA 10/30/24 20:52 IMPRESSION: No acute large vessel occlusion. No high grade stenosis. Reading Location: [facility] Chest X-Ray 10/30/24 21:41 IMPRESSION: No acute cardiopulmonary disease. Reading Location: [facility] CT scan of the brain was [...] sinus rhythm with a rate of 73. MT interval, QRS interval, and QTc intervals were all normal. [place] was normal. There are no acute ST or T wave changes. Prior EKG tracings: available for review Prior: Unchanged (11/27/2023) Management Discussion w/another healthcare provider: Hospitalist, Extraction Supervisor (Stroke neurologist [facility]) and Radiologist Treatment and Re-Evaluation Narrative: [...] (36), Including time spent:, Discussing w/Patient &/or Family/Power Barker, Discussing w/Consultants, Arranging Admission or Transfer and Performing Direct Patient Care at Bedside Discharge Plan Dx/Rx/DC Orders Clinical Impression: Acute left-sided weakness, Hypertension, Migraine headache, Overweight (BMI 25.0-29.9), Polycythemia Disposition Disposition: Acute Care [facility] Discharge Date/Time: 10/31/24 00:35 NIHSS NIHSS [...] your Primary Care Provider. Call [facility] ([phone]) or report to the closest Emergency Room. Call 911 if necessary. 10/31/24 0101 <Electronically signed by Domenico Silva DO> Cosigner Signature (if applicable): CC: No Primary Care Physician ~ Signed [facility] Work Phone: 1(315) 238-793807-31-2025 Discharge summary [facility] Medical Records Department [address] [place] [address] Emergency Department Summary 10/30/24 MR#: [id number] Acct: [id number] Name: JAYDA OSHEA Rep #:[id number] : 1985 39 From: Domenico Poon PCP: Care Physician,No Primary Status :ADM IN Location: [address] History of Present Illness Chief Complaint: Stroke Alert Informant: patient and EMS Onset/Context/Timing Onset: Today Context: Sudden Onset Timing: Continuous Quality and Location: Positive for Left Arm Weakness and Left Leg Weakness Onset: Last known well was 1530 today (approximately 5 hours and 15 minutes 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 Patient denies any fevers or chills. [facility] Medical History (Updated 10/31/24 @ 00:54 by [...] called. [facility] Patient had a [...] 79.3 H Lymph % (Auto) 15.0 L Snyder % (Auto) 4.2 Eos % (Auto) 0.4 [...] 9:01 pm EST on 10/30/24. Reading Location: [facility] Head/Neck CTA 10/30/24 20:52 IMPRESSION: No acute large vessel occlusion. No high grade stenosis. Reading Location: [facility] Chest X-Ray 10/30/24 21:41 IMPRESSION: No acute cardiopulmonary disease. Reading Location: [facility] CT scan of the brain was [...] anormal sinus rhythm with arate of 73. MT interval, QRS interval, and QTc intervals were all normal. [place] was normal. There are no acute ST or T wave changes. Prior EKG tracings: available for review Prior: Unchanged (11/27/2023) Management Discussion w/another healthcare provider: Hospitalist, Extraction Supervisor (Stroke neurologist [facility]) and Radiologist Treatment and Re-Evaluation Narrative: [...] (36), Including time spent:, Discussing w/Patient &/or Family/Power Barker, Discussing w/Consultants, Arranging Admission or Transfer and Performing Direct Patient Care at Bedside Discharge Plan Dx/Rx/DC Orders Clinical Impression: Acute left-sided weakness, Hypertension, Migraine headache, Overweight (BMI 25.0-29.9), Polycythemia Disposition Disposition: [facility] Discharge Date/Time: 10/31/24 00:35 NIHSS NIHSS [...] problems, contact your Primary Care Provider. Call [facility] ([phone]) or report tothe closest Emergency Room. Call 911 if necessary. 10/31/24 010 Cosigner Signature (if applicable): CC: No Primary Care Physician ~ Signed [facility]07-30-2025 Radiology Diagnostic study note [facility] Imaging Services [address] [place], [place] [address] Chest 1 View MR#: [id number] Acct: [id number] Name: JAYDA OSHEA Rep #: [id number] : 1985 F 39 From: Lyndon Hammond MD PCP: Care Physician,No Primary Status: REG ER Study:Chest 1 View Date of Exam: 5 Exam# [id number] Ordering Dr: Domenico Silva DO PROCEDURE: CHEST 1 VIEW 10/30/2024 REASON FOR EXAM: NEURO DEFICIT, ACUTE, STROKE SUSPECTED TECHNIQUE: Frontal view of the chest. COMPARISON: 11/27/2023 FINDINGS: Lungs/Pleura: Clear. Heart/Mediastinum: Normal in size. Bones/Soft tissues: Within normal limits. RAD/Chest 1 View IMPRESSION: No acute cardiopulmonary disease. Reading Location: [id number] CC: Dr. Domenico Silva DO; No Primary Care Physician ~ Market Analyst: Signed [facility]07-30-2025 Radiology Diagnostic study note [facility] Imaging Services [address] [place], [place] [address] STROKE CTA Head AND Neck W/Con MR#: [id number] Acct: [id number] Name: JAYDA OSHEA Maritza Rep #: [id number] : 1985 F 39 From: Taylor De Jesus MD PCP: Care Physician,No Primary Status: REG ER Study:STROKE CTA Head AND Neck W/Con Date of Exam: 10/30/24 Exam# [id number] Ordering Dr: Domenico Silva DO PROCEDURE: STROKE [...] the tip of the basilar. Both proximal CAP MACHINE OPERATOR segmentsare patent. There isno large vessel occlusion. There is no enhancing intracranial mass. Shotty cervical lymph nodes are identified. The thyroid gland is heterogeneous. The lung apices demonstrate no pneumothorax. No destructive osseous abnormalities identified. CT/STROKE CTA Head AND Neck W/Con IMPRESSION: No acute large vessel occlusion. No high grade stenosis. Reading Location: [facility] CC: Dr. Domenico Silva DO; No Primary Care Physician ~ Market Analyst: Signed [facility]07-30-2025 Radiology Diagnostic study note [facility] Imaging Services [address] [place], [place] [address] STROKE Brain/Head without Cont MR#: [id number] Acct: [id number] Name: JAYDA OSHEA Rep #: [id number] : 1985 F 39 From: Taylor De Jesus MD PCP: Care Physician,No Primary Status: REG ER Study:STROKE Brain/Head without Cont Date of Exam: 10/30/24 Exam# [id number] Ordering Dr: Domenico Silva DO PROCEDURE: STROKE [...] 9:01 pm EST on 10/30/24. Reading Location: [facility] CC: Dr. Domenico Silva, DO; No Primary Care Physician ~ Market Analyst: Signed [facility]05-19-2025 Evaluation note* Diagnosis Onset Date Resolution [...] 2024 11:35pm Hypertension chronic October 30, 11:35pm [facility] Work Phone: 1(321) 665-711705-19-2025 Evaluation note* Diagnosis Onset Date Resolution Status [...] 11:35pm Hypertension chronic October 30 025 11:35pm [facility] Work Phone: 1(271) [phone] Evaluation note* Diagnosis Onset Date Resolution Status [...] Tobacco abuse chronic November 01, 2024 3:18pm [facility] Work Phone: 1([phone]) 650-785505-19-2025 Evaluation note* Diagnosis Onset Date Resolution Status [...] 1:09pm Polycythemia inactive November 04, 2024 1:09pm [facility] Work Phone: 1(957) 248-650908-26-2024 NoteHNO ID: [id number] Author: VONNIE DICKERSON APRN.MARY Service: ? Author Type: Nurse Practitioner Type: Progress Notes Filed: 11/27/2023 11:37 Note Text: Patient triaged at [facility]. Here today with sob, left arm pain, elevated bp. Bp 190/110. I will refer to ER. Patient declines squad. Patient in no visible distress at time of triage.[facility]08-26-2024 History of Present illness Narrative* Vonnie Dickerson APRN.CNP - 11/27/2023 11:35 AM EDT Patient triaged at [facility]. Here today with sob, left arm pain, elevated bp. Bp 190/110. I will refer to ER. Patient declines squad. Patient in no visible distress at time of triage. [facility] Author Vee Stuart [facility] Note Date/Time November 01, 2024 2:3 0pm [facility] Medical Records Department [address] [place] [address] Instructions for Home/Discharge Instructions 11/01/24 1422 MR#: [id number] Acct: [id number] Name: JAYDA OSHEA Rep #:[id number] : 1985 39 From: Vee Stuart MD [...] Recorder Preventi (Urgent) Timeframe: 1 Day Facility: [facility] - Location: Cardiovascular Services Ordered By: [...] Care Physician; Mark Garcias MD ~ Signed [facility] Work Phone: Discharge summary Author Lois Chayo [facility] Note Date/Time November 04, 2024 11: 28am [facility] Medical Records Department [address] [place] [address] Discharge Summary 11/04/24 1032 MR#: [id number] Acct: [id number] Name: JAYDA OSHEA Rep #:[id number] : 1985 39 From: Lois Domingo DO PCP: Care Physician,No Primary Status :ADM IN Location: [id number] Providers Date of Admission: 11/01/24 Date of [...] Neut % (Auto) 65.7, Lymph % (Auto) 24.9,Snyder % (Auto) 8.2, Eos % (Auto) 0.6, Baso % (Auto) 0.4, Absolute Neuts (auto) 7.9 H, Absolute Lymphs (auto) 3.01, Nucleated RBC % 0 11/04/24 09:40: Troponin T High Sens Cancelled Indicators for Scoring Admitted with or Primary Diagnosis of CVA/Stroke: Yes Hx of CVA/Stroke: No Modified [place] Score MRS Score at time of Evaluation: [...] the right side.) 8. Sensory: 1 - Jjnh-zb-kypccdlf sensory loss; 9. Best Language: 0 - No aphasia; normal 10. Dysarthria: 1 = Fcla-xa-kdjieytj dysarthria; 11. Extinction and Inattention: 0 - [...] Provider] - Charges/Coding Visit Charges Inpatient E&M: 38759 Disch Hosp >30min Hospital Course RU Procedures Transesophageal Echo Summary of Care Provided Minutes Spent on Discharge: 55 Hospital Course: Patient is a 39-year-old female who presented to the emergency department at [facility] on 10/30/2024 complaining of left arm weakness, [...] 60%. Bubble contrast study was negative for mzowd-cq-whld interatrial shunt and no thrombus was detected [...] to the acute inpt rehab unit at [facility] on 11/01/24 for 3 hours of [...] Dr. Eduardo from cardiology who recommended adding [id number] mg p.o. twice daily. She is going [...] Domingo, DO; No Primary Care Physician~ Signed [facility] Work Phone: Evaluation note* Diagnosis Chest pressure- Primary Other chest pain [facility] this [facility] noteNo assessment information availableCor[facility] Work Phone: Hospital Discharge instructionsAdditional Instructions [...] 911 or proceed [facility] the [facility] Work Phone: Hospital Discharge instructionsAdditional Instructions [facility]: [facility]: Reason for referral (narrative)No reason for referral information availableIndiana [facility] Work Phone: Summary Purpose Family History Relationship Condition Age at Onset Recorded Date/T nay mother Hypertension Unknown Depression Unknown Anxiety Unknown Posttraumatic stress disorder Unknown Advance Directives Advance Directive Response Recorded Date/ Time Do you have a Healthcare Power of Finisher Cold Rolling? No October 30, 2024 9:22pm Advance Directive Response Recorded Date/ Time Do you have a Healthcare Power of Finisher Cold Rolling? No October 31, 2024 12:41am Advance Directive Response Recorded Date/ Time Do you have a Healthcare Power of Finisher Cold Rolling? No October 31, 2024 12:41am Do you have a Healthcare Power of Finisher Cold Rolling? No November 01, 2024 4:45pm Advance Directive Response Recorded Date/ Time Do you have a Healthcare Power of Finisher Cold Rolling? No October 31, 2024 12:41am Do you have a Healthcare Power of Finisher Cold Rolling? No November 04, 2024 6:02pm Do you have a Healthcare Power of Finisher Cold Rolling? No November 01, 2024 4:45pm Chief Complaint [...] or prosecute any alcohol or drug abuse patient.[facility] Reason for Visit (unrecogniz ed section and content) Reason Comments Shortness of Breath INFORMATION SOURCE (unrecogn ized section and content) DATE CREATED AUTHOR 11/28/2023 [facility] DATE CREATED AUTHOR AUTHOR'S ROHINI ATION 11/08/2024 [facility] y Hospital Care Teams (unrecognized sec [...] Active Sta rt: October 31, 2024 Dr. Leiyd Mckinnon MD Other Provider Active Start : [...] 2024 End: November 04, 2024 Jarred Garg REAL ESTATE RENTAL AGENT, REAL ESTATE RENTAL AGENT-C Other Provider Active Start : November 01, [...] Active Start: November 04, 2024 Jarred Garg REAL ESTATE RENTAL AGENT, REAL ESTATE RENTAL AGENT-C Other Provider Active Start : November 04, [...] Active Start: November 04, 2024 Jarred Garg REAL ESTATE RENTAL AGENT, REAL ESTATE RENTAL AGENT-C Other Provider Active Start : November 04, [...] 2024 End: November 10, 2024 Angelica Lawson REAL ESTATE RENTAL AGENT, REAL ESTATE RENTAL AGENT-C Other Provider Active St art: November 04, [...] Sta rt: November 04, 2024 Angelica Lawson REAL ESTATE RENTAL AGENT, REAL ESTATE RENTAL AGENT-C Other Provider Active St art: November 04, [...] Sta rt: November 05, 2024 Angelica Renny REAL ESTATE RENTAL AGENT, REAL ESTATE RENTAL AGENT-C Other Provider Active St art: November 05, [...] Sta rt: November 06, 2024 Angelica Lawson REAL ESTATE RENTAL AGENT, REAL ESTATE RENTAL AGENT-C Other Provider Active St art: November 06, [...] Sta rt: November 06, 2024 Angelica Lawson REAL ESTATE RENTAL AGENT, REAL ESTATE RENTAL AGENT-C Other Provider Active St art: November 06, [...] Sta rt: November 07, 2024 Angelica Renny REAL ESTATE RENTAL AGENT, REAL ESTATE RENTAL AGENT-C Other Provider Active St art: November 07, 2024 Dr. Law Eduardo MD Other Provider Active Start : November 07, 2024 Dr. Nehemiah Hammodn MD Attending Provider Active Start: November 07, [...] Star t: November 08, 2024 Dr. Ann Andrews MD Other Provider Active Start: November 08, 2024 Dr. Chase Mccauley MD Other Provider Active Star t: November 08, 2024 Dr. Jonathan Pérez MD Other Provider Active Start: A 2024 Dr. Aaron Crooks MD Other Provider Active Sta rt: November 08, 2024 Dr. Aubrey Saxena , Other Provider Active Sta rt: November 08, 2024 Angelica Lawson REAL ESTATE RENTAL AGENT, REAL ESTATE RENTAL AGENT-C Other Provider Active St art: November 08, [...] Provider Active Sta rt: November 09, 2024 Angelica Lawson REAL ESTATE RENTAL AGENT, REAL ESTATE RENTAL AGENT-C Other Provider Active St art: November 09, [...] Sta rt: November 10, 2024 Angelica Lawson REAL ESTATE RENTAL AGENT, REAL ESTATE RENTAL AGENT-C Other Provider Active St art: November 10, [...] BE BASED ON THE PRIMARY CLINICAL RECORDS. [facility] [employer] [facility]. provides no warranty or guarantee of the accuracy or completeness of information in this document.
[2024-11-10 14:45] VITALS: BP 138/77; PULSE 86; RESP 17; TEMP 36.8; O2SAT 97; BMI 28.8
[2024-11-10 15:12] VITALS: PULSE 68; RESP 17; O2SAT 97
[2024-11-10] MEDS: prednisoLONE eye drops (5 mL) 1 DROP OPTH.BTL 1 DRP EACH EYE ×2 (16:56→21:44)
[2024-11-10 17:49] VITALS: BP 136/70; PULSE 85; RESP 16; TEMP 36.8; O2SAT 97
[2024-11-10] MEDS: Senna/Docusate Sodium 1 Tablet 2 TABLET PO (21:46)
[2024-11-10 21:54] VITALS: BP 146/92; PULSE 95
[2024-11-11 05:40] LABS: Hematocrit 37.5 % (37-47); Hemoglobin 12.6 g/dL (12.0-15.0); Mean Corp Hgb Conc 33.6 g/dL (32-36); Mean Corpuscular Volume 91.2 fL (81-99); Mean Platelet Vol. 10.0 fl (6.2-12.0); Platelet Count 372 K/mm3 (150-450); RBC Distribution Width CV 11.6 % (11.6-14.6); RBC Distribution Width SD 38.8 fl (35.1-43.9); Red Blood Count 4.11 M/mm3 (4.2-5.4); White Blood Count 8.3 K/mm3 (4.4-11.0)
[2024-11-11 06:00] VITALS: BP 134/87; PULSE 92; RESP 18; TEMP 36.9; O2SAT 96
[2024-11-11 06:23] LABS: AST(SGOT) 60 U/L (<=31); Alanine Aminotransfer ALT/SGPT 98 U/L (<=34); Albumin, Serum 3.9 g/dL (3.5-5.0); Alkaline Phosphatase 73 U/L (35-104); Anion Gap 9 (5-15); BUN 11 mg/dL (4-19); BUN/Creat Ratio 15.8 RATIO (10-20); Calcium,Total 9.4 mg/dL (7.6-11.0); Carbon Dioxide 28.2 mmol/L (21.0-32.0); Chloride 105 mmol/L (98-108); Estimated Creatinine Clearance 111.95 ml/min (50-250); Globulin 2.3 g/dL (2.2-4.2); Glucose 138 mg/dL (70-99); Magnesium 2.3 mg/dL (1.5-2.2); Potassium 4.1 mmol/L (3.3-5.1)
[2024-11-11] MEDS: Hydrocortisone 2.5% Ointment 20 gm tube 1 APPLIC TOPICAL (06:50)
[2024-11-11 08:07] VITALS: PULSE 92
[2024-11-11] MEDS: Senna/Docusate Sodium 1 Tablet 2 TABLET PO (08:08)
[2024-11-11] MEDS: prednisoLONE eye drops (5 mL) 1 DROP OPTH.BTL 1 DRP EACH EYE ×4 (08:08→20:51)
--- NOTE | 2024-11-11 08:09 | HP.PCM_ITS ---
HPI - General General Date of Admission: 11/10/24 Date of Service: 11/11/24 HPI Narrative JAYDA OSHEA, is a 39 F with a PMH of ADD, HTN, migraines, seasonal allergies and cannabis use who was admitted to [facility] on 10/30/24 with ischemic CVA. MRI showed a large area of restricted diffusion in the right frontal and superior parietal precentral cortex and superior periventricular region measuring 9 cm x 3 cm x 4.6 cm with associated increased T2 signal and decreased T1 signal components. There was also a 0.6 cm focus of restricted diffusion in the left superior precentral cortex which appeared acute and an old 0.8 cm lacunar infarct in the deep white matter on the left. She was taking amphetamine/dextroamphetamine 30 mg twice daily for ADD. She was transferred to the acute inpt rehab unit at [facility] for rehabilitation. On 11/04/24 she c/o CP and there were EKG changes. She was transferred to the acute and was seen by Cardiology. Cardiac cath was performed and showed normal coronary arteries with normal left ventricular size, wall motion and systolic function. She was polycythemic and was seen by Heme/onc. JAK2 V617F was negative. CT scan of the abd and pelvis with contrast was unremarkable showing no hepatic or renal tumors. Erythropoietin level was unremarkable at 2.1. Phlebotomy was suggested to keep HCT at 45 or less. She underwent phlebotomy X 2 and the HCT on 11/08/24 was 39.2. She was transferred back to inpt rehab for 3 hours of therapy daily on 11/10/24 to restore function/independence. She tells me that she sees a MENTAL HEALTH SPECIALIST (Lisette Gonsalves) from [facility] in [place] to manage ADD and migraines. They are the ones prescribing the amphetamine. She also was getting a triptan to use at onset of a migraine.......she tool 2 on the day she had a stroke. She tells me that the triptans do not help. The BRIGGS's are always on the R side of the head and she has pain at the base of the neck on the R. She has never had Botox. She has had a RX for Metoprolol in the past that she got at a hospital that she was instructed to take PRN for elevated BP? She has a IUD that was supposed to be removed a year ago and she never had it done. She is complaining of pain in the Left axilla and Left upper rib area and is also c/o pain in the left buttock and left hamstring. The pain in the left buttock/hamstring is precipitated by rolling on the therapy quan. She tells me that she has had it in the past but, not often. She admits to being anxious. She tells me that prior to starting the amphetamine she was more anxious but, the medication helped her to focus at work and her anxiety level went down. [facility] Medical History (Updated 11/12/24 @ 15:[address] Lois Domingo DO) Anxiety Insomnia Amphetamine use Polycythemia HTN (hypertension) ADHD Migraine Home Medications ?Medication ?Instructions ?Recorded ?Last Taken ?Type loratadine 10 mg tablet (Claritin) 10 mg PO DAILY PRN PRN Allergies 01/25/18 Unknown History dexamethasone sodium phosphate 0.1 1 drp ophthalmic (e ye) 4X/DAY eye 10/30/24 Unknown History % eye drops inflamattion erythromycin 5 mg/gram (0.5 %) eye 1 applic ophthalmic (eye) QHS eye 10/30/24 10/31/24 History ointment aspirin 81 mg chewable tablet 81 mg PO DAILYCM heart h ealth #0 11/01/24 11/01/24 Rx tabs atorvastatin 80 mg tablet 80 mg PO QHS cholesterol #0 tabs 11/01/24 10/31/24 Rx lisinopril 10 mg tablet 10 mg PO DAILY blood pressur e #0 11/01/24 11/01/24 Rx tabs metoprolol tartrate 50 mg tablet 50 mg PO BID bp #0 ta bs 11/10/24 Unknown Rx tizanidine 2 mg capsule (Zanaflex) 2 mg PO Q8H PRN mus florencia relaxer 11/10/24 Unknown History Allergy/AdvReac Type Severity Reaction Status Date / Time naproxen Allergy Hives Verified 10/30/24 21:22 Family History Mother Hypertension Depression Anxiety PTSD (post-traumatic stress disorder) Surgical History History of section Social History (Updated 11/12/24 @ 15:[address] 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 Smoking Status: Current every day smoker tobacco type: e-cigarettes alcohol intake: current alcohol intake frequency: 0-2 drinks per day Alcohol type: wine substance use type: marijuana additional social history: She takes Prescribed amphetamines for ADHD ROS Constitutional Constitutional: Reports fatigue and weakness; Denies anorexia, change in weight, chills, fever(s) or night sweats Eyes Eyes: Denies blurry vision, diplopia, discharge from eye(s), eye pain or loss of vision ENT HEENT: Reports headache(s); Denies abnormal hearing, dysphagia, facial pain, hearing loss, nasal congestion or sore throat Cardiovascular Cardiovascular: Reports chest pain and palpitations; Denies dyspnea on exertion, edema, lightheadedness, orthopnea, paroxysmal nocturnal dyspnea or syncope Respiratory/Chest Respiratory/Chest: Denies cough, dyspnea, shortness of breath at rest, shortness of breath with exertion or wheezing Gastrointestinal Gastrointestinal: Denies abdominal pain, constipation, diarrhea, dyspepsia, hematemesis, hematochezia, nausea or vomiting Genitourinary Genitourinary: Denies dysuria, hematuria, nocturia, urinary frequency, urinary hesitancy, urinary incontinence or urinary urgency Musculoskeletal Musculoskeletal: Reports neck pain; Denies back pain, joint pain or joint swelling Integumentary Integumentary: Denies acne, alopecia, jaundice, rash or wounds Neurologic Neurologic: Reports disequilibrium, focal weakness, headache(s) and sensory deficit; Denies dizziness, paresthesias, seizures or tremor(s) Psychiatric Psychiatric: Reports anxiety, depression and panic attacks; Denies homicidal ideation or suicidal ideation Endocrine Endocrinology: Denies change in body appearance, polydipsia or polyuria Hematologic/Lymphatic Hematologic/Lymphatic: Denies easy bleeding, easy bruising or lymphadenopathy Allergic/Immunologic Allergic/Immunologic: Reports rhinitis; Denies eczemia or asthma Vital Signs Vital Signs Vital Signs: 11/10/24 14:45 11/10/24 15:12 11/10/24 16:00 Temperature 98.3 F Temperature Source Temporal Pulse Rate 86 68 Respiratory Rate 17 17 Respiratory Effort Normal Non-Labored Respiratory Depth Normal Respiratory Pattern Normal Blood Pressure 138/77 H Blood Pressure Mean 97 Blood Pressure Source Monitor Blood Pressure Position Semi-Fowlers Blood Pressure Location Right Arm Pulse Ox 97 97 Oxygen Delivery Method Room Air Room Air Room Air 11/10/24 17:49 11/10/24 21:54 11/11/24 06:00 Temperature 98.2 F 98.4 F Temperature Source Temporal Oral Pulse Rate 85 95 92 Respiratory Rate 16 18 Respiratory Effort Respiratory Depth Respiratory Pattern Blood Pressure 136/70 H 146/92 H 134/87 H Blood Pressure Mean 92 102 Blood Pressure Source Monitor Monitor Blood Pressure Position Semi-Fowlers Supine Blood Pressure Location Right Arm Right Arm Pulse Ox 97 96 Oxygen Delivery Method Room Air Room Air Weight Weight: 167 lb 8.821 oz Body Mass Index (BMI) 28.8 Indicators for Scoring Admitted with or Primary Diagnosis of CVA/Stroke: Yes Hx of CVA/Stroke: Yes Modified [place]iff[place] Score MRS Score at time of Evaluation: 4-Moderate/severe disability NIHSS NIHSS 1a. Level of Consciousness: 0 - Alert; keenly responsive 1b. LOC Questions: 0 - Answers BOTH questions correctly 1c. LOC Commands: 0 - Performs BOTH tasks correctly 2. Best Gaze: 0 - Normal 3. Visual: 0 - No visual loss 4. Facial Palsy: 1 - Minor paralysis (flattened nasolabial fold, asymmetry on smiling) (This has improved significantly since admission. Limited to less teeth visible on the left when smiling.) 5a. Left Arm: 1 - Drift; arm drifts downward but doesn?t hit the bed (she is left handed. Left hand compliance review officer is weaker than the R Very weak Left shoulder shrug) 5b. Right Arm: 0 - No drift; arm holds 90 (or 45) degrees for full 10 seconds 6a. Left Le - Drift; leg falls by the end of 5-seconds, but does not hit bed (Able to lift the left leg off the bed and hold for 5 sec with some drift but, did not hit the bed. Able to lift the R leg much higher off the bed. ) 6b. Right Le - No drift; leg holds 30-degree position for full 5 seconds 7. Limb Ataxia: 1 - Present in 1 limb 8. Sensory: 1 - Tivm-th-kkxyazle sensory loss; (sensory loss in the face, arm and leg on the left) 9. Best Language: 0 - No aphasia; normal 10. Dysarthria: 0 - Normal (when I initially saw her prior to transfer to PCU for CP she had dysarthria but, speech is now more crisp and I do not perceive any dysarthria. ) 11. Extinction and Inattention: 1 - Visual, tactile, auditory, spatial, or personal inattention; Total: 6 (Down from 16 at arrival to rehab ) Stroke Questions Stroke Team Activated: No Physical Exam Const alert and oriented x3 Constitutional Narrative: she is lying in bed at the time of my exam. General Appearance: well developed HEENT normocephalic, head/scalp atraumatic and hearing grossly normal bilaterally HEENT Narrative: Mucous membranes are dry Eyes PERRL, EOMs intact bilaterally, conjunctivae normal and no scleral icterus Eyes Narrative: No discharge from the eyes Neck supple, No nodes and no carotid bruits Chest Chest: symmetrical chest wall rise Resp normal respiratory effort, normal air movement and clear to auscultation bilaterally Effort and Inspection: able to speak in complete sentences Cardio regular rate, regular rhythm, S1 normal heart sound, S2 normal heart sound, no murmurs, no rub and no gallops Cardio Narrative: No ectopy GI normal to inspection, nondistended, normoactive bowel sounds, soft to palpation and non-tender GI Narrative: No guarding with palpation. no CVA tenderness Narrative: She came to us with a Smith catheter in place secondary to urinary retention. Back/Spine Back/Spine Narrative: Negative SLR on the left. Negative Hesham test. Intact sensation to pinprick LLE. No pain with lightly stroking the skin of the thigh, hamstring or calf. She has pain at the base of the skull where the trapezius attaches to the occiput. There is muscle tension/spasm localized to this area. This is where the migraines always start. Cervical Spine: trapevius muscle tenderness Trapezius Muscle Tenderness Details: right (neck and at the attachment of the muscle to the occiput) Extremity no calf tenderness and no pedal edema Peripheral Pulses: Yes pulses 2+ throughout Skin no jaundice General Skin Exam: no breakdown Rashes: no rashes Neuro oriented x3 Neuro Narrative: Has noticed a slowing of her thought processing since the stroke. She has a very mild left facial droop. PERRLA, EOMI. Right after the stroke she had a partial gaze palsy. Decreased shoulder shrug on the left. She is left hand dominant. Able to lift the Left arm off the bed but has some drift....does not hit the bed. No drift with the RUE. She can lift the LLE off the bed about 3 but has drift. It does not hit the bed. RLE has no drift and has good strength. Can plantar flex and dorsiflex the left foot but, weaker than the R. Decreased sensation in the Left face and left leg........mild decrease L arm. + extinction with left leg and intemittently with the L face. + ataxia of the L leg. HAs left side neglect. No dysarthria today and no aphasia. Psych Psych Narrative: She is anxious, depressed and overwhelmed. Somewhat confrontational. Tearful at times. Having some panic attacks. Was having panic attacks as an OP. Has a stressful job and has a 16 YO at home who now has to live with his father while she is in the hospital and her son is complaining to her and there is nothing else she can do at this time. She is very upset at this. Making good eye contact with me today. I answered all her questions. She denies homicidal or suicidal ideation. She is open to get counselling and being treated for anxiety/depression/panic attacks. Results Lab / Micro Data 11/11/24 05:30 11/11/24 05:30 Labs: Laboratory Results - last 24 hr 11/11/24 05:30: WBC 8.3, RBC 4.11 L, Hgb 12.6, Hct 37.5, MCV 91.2, MCH 30.7, MCHC 33.6, RDW Std Deviation 38.8, RDW Coeff of Maria Teresa 11.6, Plt Count 372, MPV 10.0, Sodium 142, Potassium 4.1, Chloride 105, Carbon Dioxide 28.2, Anion Gap 9, BUN 11, Creatinine 0.66 L, Estim Creat Clear Calc 111.95, Est GFR (MDRD) Non-Af 113, BUN/Creatinine Ratio 15.8, Glucose 138 H, Calcium 9.4, Phosphorus 3.6, M agnesium 2.3 H, Total Bilirubin 0.19, AST 60 H, ALT 98 H, Alkaline Phosphatase 73, Total Protein 6.2, Albumin 3.9, Globulin 2.3, Albumin/Globulin Ratio 1.7 Assessment & Plan Assessment/Plan (1) Debility: (2) Stroke: QUALIFIERS: CVA mechanism: unspecified Qualified Code(s): I63.9 - Cerebral infarction, unspecified PLAN: Etiology? No PFO. No hx of AF. Was not on an antihypertensive at admission to the hospital. Had a RX for Metoprolol to use PRN? (3) Acute left-sided weakness: (4) Hypertension: QUALIFIERS: Hypertension type: unspecified Qualified Code(s): I10 - Essential (primary) hypertension PLAN: Uncertain if this is essential HTN or if it is related to chronic amphetamine use for ADD. (5) Vaping nicotine dependence, non-tobacco product: (6) Acquired polycythemia: PLAN: Will need to follow up with Dr. Bean gallegos [place]. (7) ADHD: QUALIFIERS: Attention deficit-hyperactivity disorder type: u nspecified Qualified Code(s): F90.9 - Attention-deficit hyperactivity disorder, unspecified type PLAN: Treated for this and also migraine cephalgia at [facility] in [place]. She sees MENTAL HEALTH SPECIALIST Lisette Gonsalves. Will get records and med list. She has migraines about 4 times a month and is taking a triptan PRN. Pt tells me that Triptans do not work. (8) Amphetamine use: PLAN: Adderall for ADD. (9) Migraine headache: QUALIFIERS: Intractability: not intractable Migraine type: u nspecified Status migrainosus presence: without status migrainosus Qualified Code(s): G43.909 - Migraine, unspecified, not intractable, without status migrainosus PLAN: Has prescriptions for Nurtec and a Triptan from neurology. (10) Anxiety: PLAN: Drinks alcohol and uses cannabis to control. Has panic attacks at times. (11) Abnormal LFTs: PLAN: She is now on a high dose statin since the CVA........will recheck in another week. they were normal in the past. (12) V-tach: PLAN: Asymptomatic. Cardiology recommended a beta vanita and she was started on Metoprolol. (13) Central neuropathic pain: (14) Insomnia: QUALIFIERS: Insomnia type: unspecified Qualified Code(s): G47.00 - Insomnia, unspecified (15) 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 (CVA): PLAN: Plan PLAN PT for gait stability OT for ADL's ST for evaluation Analgesics as needed Bowel protocol Fall precautions Assess for Anxiety/Depression GI prophylaxis -not necessary at this time. She denies nausea/vomiting/epigastric pain/history of peptic ulcer disease/heartburn. DVT prophylaxis with enoxaparin 40 mg subcu daily Follow up with neurology, PCP (will need to get established with a PCP) following DC from [facility] AM lab including CMP, CBC, Mag and Phos - all recent lab was personally reviewed. Change the beta vanita to a non-selective beta vanita.......may treat the HTN, NSVT and the migraines. DC amphetamines. Try Wellbutrin for ADD. Pt had a work colleague who got severely depressed on Wellbutrin........she is hesitant to take this but, will try. DC HCTZ........do not want her to get dehydrated and hemoconcentrated. If the BP is not controlled on a beta vanita and Lisinopril will adjust the doses. Add Buspar for anxiety now. Would like to avoid benzo's if at all possible. Gabapentin 200 mg at HS for central neuropathic pain and it may help with sleep. Recheck a CMP and a lipid panel in 1 week. Why is she on Prednisolone and erythromycin eye drops? Sclera is clear and there is no DC from the eyes. Obtain records from [facility]al[facility] [place] We discussed DC all nicotine products, no ETOH, no caffeine, no amphetamines and no Cannabis. she understands how this could have contributed to the stroke. I am also not in favor of continuing Triptans. Consider a neurology consult after I have her records from Lisette Gonsalves and more information. She was seen by [facility] teleneurology at initial presentation to the ER for stroke sx. I recommended she follow up with a sports book writer for concerns about the IUD she was supposed to have removed 1 year ago. She will need a 30-day event monitor at discharge. He can follow-up with cardiology for nonsustained V. tach and to review the results of the 30-day event monitor.
--- NOTE | 2024-11-11 11:12 | PCM.PN.BLA ---
Documented by User: ABELARDO Perez 11/11/24 11:39 Progress Note At the request of Dr. Vasquez, I met with the patient, Elin to discuss goals of care going forward as well as discussion of her current medical status. Elin was sitting in a bedside recliner with her feet elevated. She was open to conversation after introduced myself. I did note her to have poor eye contact as well as being very restless. She stated that she was feeling very anxious and requested that the family moved closer to her in which I did. Elin states that she has a 16-year-old son that lives with her that she is very concerned about. She states that he is currently staying with his father and he is not very happy about it and he feels that it is not a good environment. She is very worried about him and is one of the why's in her life to get better and return home. She does indicate that she is prone to panic attacks and feels like she is getting ready to have one I was able to talk her through some relaxation techniques with deep breathing and distraction. She then became very tearful when talking about her job which she is fearful of losing. She states that she works for a [employer] and that she just got a promotion and a raise. She states that they assured her that her job would be secured but she is fearful that they are just placating me. We then had an extensive discussion about her mental wellbeing. She states that she is open to going to therapy and has been interested previously but she could not afford it at the time and there was also difficulty with gaining access to good mental health care. I did state that I would place a referral to behavioral health in which she states that she is very interested. She states that she has been meeting with Jason escobar, which has been helpful. Elin states that she also has a friend from work who comes in and prays with her and that she plans on attending uatsdin with this friend once she is discharged. I did place a phone call to Mike Dempsey and behavioral health and had to leave a message. I also placed the consult to behavioral health. We then had an extensive discussion about her current medications and lifestyle and given her current post CVA. She states that she has done vaping and feels that she will be successful. We also discussed the fact that she is been taking Adderall for her ADHD and its incidence in regard regards to strokes. She does state understanding of the need to discontinue taking Adderall. She does acknowledge that she has depression and anxiety and I did remind her that Adderall can exacerbate these types of symptoms. She states that she would be open to medication management. After discussion with Dr. Vasquez, decision was made to initiate Wellbutrin 75 mg p.o. twice daily and BuSpar 5 mg p.o. twice daily. Adderall has been discontinued. She states that she has had history of migraines and frustration over the fact that she has had not found good control with medications. I did discuss this with Dr. Vasquez and decision was made to take the patient off of metoprolol 50 twice daily and initiate propranolol. I did contact the pharmacist, Alisson, and discussed dosing is to be transition from metoprolol to propranolol she indicated that the patient should take 40 mg twice daily. Order was placed. Elin acknowledges that she does utilize marijuana nightly to induce sleep. We discussed alternatives to marijuana such as melatonin which she states that she does not like because of the dreams that she has when she takes it. We also discussed CBD, which she states that she has the same type of dreams that are lucid and she does not feel rested. She says that 1 hit of marijuana is the only thing that seems to help her. We discussed alternatives such as guided imagery, meditation and deep breathing techniques which she states she is open to. I stressed the importance of stroke prevention and utilization of stimulants, alcohol and marijuana. She states understanding and assures me that she is planning to discontinue vaping, stimulants and alcohol, as she feels that her job and her son are the most important things and she does not want to have another stroke. Patient states that her ultimate goal is to return home and to return to her job as soon as possible. All questions were answered. Physical Exam Const oriented x3 and no apparent distress General Appearance: cooperative, comfortable and well kempt Orientation / Consciousness: awake, oriented to person, oriented to place and oriented to time Exam Limitations: no limitations HEENT normocephalic Eyes PERRL Neck full ROM Lymph Lymphatic: no lymphadenopathy noted Resp normal respiratory effort, normal air movement, no retractions, no use of accessory muscles and clear to auscultation bilaterally Cardio regular rate and regular rhythm GI normal to inspection, nondistended, normoactive bowel sounds Extremity Extremity Narrative: Left-sided weakness status post CVA Skin no rashes or lesions noted Neuro oriented x3 Speech: speech normal Psych Appearance: appropriate Activity / Motor Behavior: fidgetting and restless Speech: normal speech Mood & Affect: depressed and anxious Thought Content: normal thought content Memory / Cognition: memory grossly intact Insight: fair Judgement: fair Assessment & Plan Assessment/Plan (1) 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 (CVA): (2) Anxiety: PLAN: Plan Referral to behavioral health Wellbutrin 75 mg p.o. twice daily BuSpar 5 mg p.o. twice daily Continued discussions with Jason escobar. Medical management per primary team. Documented by User: Dr. Lois Domingo DO 11/11/24 17:27 Progress Note At the request of Dr. Domingo, I met with the patient, Elin to discuss goals of care going forward as well as discussion of her current medical status. Elin was sitting in a bedside recliner with her feet elevated. She was open to conversation after introduced myself. I did note her to have poor eye contact as well as being very restless. She stated that she was feeling very anxious and requested that the family moved closer to her in which I did. Elin states that she has a 16-year-old son that lives with her that she is very concerned about. She states that he is currently staying with his father and he is not very happy about it and he feels that it is not a good environment. She is very worried about him and is one of the why's in her life to get better and return home. She does indicate that she is prone to panic attacks and feels like she is getting ready to have one I was able to talk her through some relaxation techniques with deep breathing and distraction. She then became very tearful when talking about her job which she is fearful of losing. 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 She states that they assured her that her job would be secured but she is fearful that they are just placating me. We then had an extensive discussion about her mental wellbeing. She states that she is open to going to therapy and has been interested previously but she could not afford it at the time and there was also difficulty with gaining access to good mental health care. I did state that I would place a referral to behavioral health in which she states that she is very interested. She states that she has been meeting with Jason escobar, which has been helpful. Elin states that she also has a friend from work who comes in and prays with her and that she plans on attending uatsdin with this friend once she is discharged. I did place a phone call to Mike [facility] and had to leave a message. I also placed the consult to behavioral health. We then had an extensive discussion about her current medications and lifestyle and given her current post CVA. She states that she is done vaping and feels that she will be successful. We also discussed the fact that she has been taking Adderall for her ADHD and its incidence in regard regards to strokes. She does state understanding of the need to discontinue taking Adderall. She does acknowledge that she has depression and anxiety and I did remind her that Adderall can exacerbate these types of symptoms. She states that she would be open to medication management. After discussion with Dr. Vasquez, decision was made to initiate Wellbutrin 75 mg p.o. twice daily and BuSpar 5 mg p.o. twice daily. Adderall has been discontinued. She states that she has had history of migraines and frustration over the fact that she has had not found good control with medications. I did discuss this with Dr. Vasquez and decision was made to take the patient off of metoprolol 50 twice daily and initiate propranolol. I did contact the pharmacist, Alisson, and discussed dosing is to be transition from metoprolol to propranolol she indicated that the patient should take 40 mg twice daily. Order was placed. Elin acknowledges that she does utilize marijuana nightly to induce sleep. We discussed alternatives to marijuana such as melatonin which she states that she does not like because of the dreams that she has when she takes it. We also discussed CBD, which she states that she has the same type of dreams that are lucid and she does not feel rested. She says that 1 hit of marijuana is the only thing that seems to help her. We discussed alternatives such as guided imagery, meditation and deep breathing techniques which she states she is open to. I stressed the importance of stroke prevention and utilization of stimulants, alcohol and marijuana. She states understanding and assures me that she is planning to discontinue vaping, stimulants and alcohol, as she feels that her job and her son are the most important things and she does not want to have another stroke. Patient states that her ultimate goal is to return home and to return to her job as soon as possible. All questions were answered. Assessment & Plan Assessment/Plan (1) 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 (CVA): (2) Anxiety: PLAN: Plan Referral to behavioral health Wellbutrin 75 mg p.o. twice daily BuSpar 5 mg p.o. twice daily Continued discussions with Jason escobar. Medical management per primary team. I saw the pt independently of the WHE[employer] DEALER and completed her H&P. We discussed her findings with regard to mental health and also discussed changes to the medication regimen. She has been transitioned from Metoprolol to Propanolol in hopes that this will help with management of migraines and well as HTN. She does not have a regular PCP and I encouraged her to follow up regularly with a PCP to establish a relationship and provide routine medical care as well as preventative health care. I think that good mental health care and counselling are going to be critical for this patient going forward.
--- NOTE | 2024-11-11 15:16 | CASEMGMT ---
Social Work SW attempted to see pt twice, but in therapy or unavailable. SW will continue to attempt. Tamra Romero SEALER [employer] NON PROFIT DIRECTOR
--- NOTE | 2024-11-11 17:28 | PCM.RU.PYE ---
Admission Information Primary Diagnosis:: Poststroke debility Status Changes from Prescreening?: Medical Actual Problem List:: Pain, ALteration in Cmfrt, Depression, Alteration in Sleep, Mobility Impaired, Self Care Deficit, Know.Dfct/Disease Process, Know.Dfct of Medicaitons, BP, Hypertension and Alteration-Leisure Activ. Potential Problem List:: DVT, Bleeding, Infection, UTI, Aspiration, Falls, Skin Integrity and Depression Risk of Complications DVT: LMWH and DEBORAH Hose Bleeding: Monitor Lab Values, Nursing to Teach Precautions for anti-coagulation therapy., Wound, if applicable, to be assessed every shift. and Stroke patients assessed for lethargy or change in status. Infection: Clinical Staff to Monitor for S/S of infection: and S/S of infection include fever, redness, warmth, etc. Urinary Tract Infection: Monitor for frequency, burning, discomfort, or incontinence. and Nursing will obtain urine sample for urinalysis and C&S when ordered. Aspiration: Clinical staff will monitor for coughing, drooling, congestion., Speech will evaluate swallowing and dsyphasia. and Nursing will monitor patient swallowing during meals. Falls: Patient will be evaluated for Fall Precautions and Patient will be placed on Fall Precautions as indicated per protocol. Skin Breakdown: Nursing will assess skin daily using assessment tool. and Nursing will place on Skin Breakdown Precautions as indicated. Pain: Clinical staff will assess patient's pain level per protocol., Medications will be given, if needed, and the pain level reassessed. and Other methods: Massage, distraction, decrease stimulus, etc. used PRN. Plan of Care Patient requires physician specializing in physical medicine and rehab oversight to provide close medical supervision of rehab issues including: Pain Management, Sleep Problems, Bowel and Bladder, Medical and co-morbidity Management, DVT prophylaxis, Rehabilitation Leadership and Coordination of treatment team Patient needs Physical Therapy: For a minimum of 1 hour and At least 5 out of 7 days Patient needs Physical Therapy to improve:: Mobility, Strengthening, Transfers, Stretching, ROM, Endurance, Stairs, Gait and Balance Patient needs Occupational Therapy: For a minimum of 1 hour and At least 5 out of 7 days Patient needs Occupational Therapy to improve ADL's incl.: Eating, Grooming, Bathing, Dressing, Toileting, Toilet transfers, Community Reintegration, Higher functioning activities, Household tasks, Adaptive Equipment, Splinting and Other activities as determined Patient requires speech therapy: For a minimum of 1 hour and At least 5 out of 7 days Patient requires speech therapy for: Swallowing, Cognition, Language Skills and Compensatory Strategies Patient requires 24/ Rehabilitation Nursing for: Pain Issues, Identifying and preventing risk factors, Monitoring and reporting current medical conditions, Assisting with ambulation, transfer, and all ADL's, Teaching patients about disease process and medications, Family teaching, Providing safe environment, Bowel and Bladder Issues, Skin integrity and Medication Management Patient needs Custodial Supervisor/ Case Management for: Discharge Planning, Arranging Home Equipment or Services and Family Interventions Patient needs Dietary and Nutrition Services for: Adequate Nutrition, Nutritional Supplements and Nutritional Education Goals Goals Patient will remain: free from falls Patient will perform eating at: MOD I level of assist. Patient will perform bed mobility at: MOD I level of assist. Patient will complete transfers from bed to chair at: Standby Assist. Patient will ambulate: - (150 feet with least restrictive device on various surfaces at contact-guard assist) Patient will complete upper body dressing at: - (Set up) Patient will complete lower body dressing at: Standby Assist. (Using adaptive equipment as needed to increase independence with self-care) Patient will complete toilet transfer at: Standby Assist. Patient will complete toileting at: Standby Assist. Patient will perform bathing at: Standby Assist. (Upper body bathing at standby assist and lower body bathing at standby assist with adaptive equipment as needed.) Patient will perform Tub/Shower transfer at: Standby Assist. (Using DME as needed as needed.) Patient will complete grooming at: Standby Assist. (While standing at the sink) Patient will complete home management skills at: Standby Assist. Patient will achieve: - (3 steps with 1 handrail at min assist to allow access to her home entrance) Patient will have pain level of: of 3 or less Patient's skin will: remain intact Patient will receive: adequate nutrition. Discharge Planning Pt Prognosis for Sig. Practical Improv. w/in Reasonable Time: Good Estimated Length of stay (days): 28 Anticipated D/C Destination: Home w/ family or friends (With outpatient therapy) Was Preadmission Assessment Accurate?: Yes
[2024-11-11 18:00] VITALS: BP 124/84; PULSE 81; RESP 17; TEMP 36.6; O2SAT 99
[2024-11-11 20:50] VITALS: BP 139/93; PULSE 89; RESP 16; O2SAT 97
[2024-11-11] MEDS: Erythromycin Base 1 OPTH.TUBE 1 APPLIC OPHTHALMIC (20:55)
[2024-11-12 06:00] VITALS: BP 124/74; PULSE 72; RESP 16; TEMP 36.4; O2SAT 99
[2024-11-12] MEDS: Senna/Docusate Sodium 1 Tablet 2 TABLET PO (07:50)
[2024-11-12] MEDS: prednisoLONE eye drops (5 mL) 1 DROP OPTH.BTL 1 DRP EACH EYE ×3 (07:51→17:33)
[2024-11-12 10:33] VITALS: BP 147/93; PULSE 89
--- NOTE | 2024-11-12 15:19 | NURSING ---
[employer] TANKER DRIVER alerted this nurse that upon entering pt's room pt was sitting on the floor. Pt stated that she slithered out of bed while reaching for her computer, that was on the bedside table. Pt denies hitting her head or any other injuries. No injuries noted. VS WNL. Dr Domingo made aware. Assessment complete. NNO.
--- NOTE | 2024-11-12 15:44 | CASEMGMT ---
Social Work SW made two more attempts to meet with pt this date, but both unsuccessful. SW will continue to return. Tamra Romero DENTURE FINISHER VERIFICATION SPECIALIST
--- NOTE | 2024-11-12 15:45 | PCM.PROGNOTE ---
Subjective Subjective Afebrile VSS -blood pressure over the past 24 hours has ranged from 124/74 to 147/93. Heart rate is within normal limits. Maintaining appropriate oxygen saturation on RA Oral intake - FOOD good FLUIDS good Discussed with nursing - Had flushing last night and blamed it on medication but, it sound to me like she had a panic attack. Nursing reports she slept well. Reviewed the THERAPY notes Medication list reviewed. She is less confrontational today and is more realistic. No longer thinks she is going to be able to go hoe Monday and back to work. Very open to get psychotherapy. Admits to me she is anxious and depressed and overwhelmed and having panic attacks. Realizes that she can no longer vape, drink alcohol, smoke pot or take amphetamines and triptans. She is making good eye contact with me today and she is tearful at times. She is being much more open and less closed off. She wants help. She is very motivated to get better and back to work. We discussed her BRIGGS's and what we can try to avoid using triptans and Nurtec. These medications did not consistently help her........what seems to help most is sleep. She has chronic insomnia. The migraines seem to always start at the base of the occiput on the R and she tells me that she never has a BRIGGS on the Left side of the head. More talkative and saying thank you today. Wants help but, she has a hard time trusting. Joslyn denies chest pain, shortness of breath, palpitations, nausea/vomiting/abdominal pain, dysuria and calf tenderness. She does have right-sided cephalgia and pain in the right side of her neck posteriorly. Objective Data Objective Data Vital Signs: Vital Signs Temp Pulse Resp BP Pulse Ox O2 Del Method 97.6 F L 89 16 147/93 H 99 Room Air 11/12/24 06:00 11/12/24 10:11/12/24 06:00 11/12/24 10:11/12/24 06:00 11/12/24 09:43 Oxygen Delivery Method Room Air Weight: 167 lb 8.821 oz Body Mass Index (BMI) 28.8 Intake & Output: Intake and Output for Last 24 Hours 11/10/24 11/11/24 11/12/24 23:59 23:59 23:59 Intake Total 1610 / 1610 600 / 600 Output Total 500 / 800 2375 / 2375 350 / 350 Balance -500 / -350 -765 / -765 250 / 250 Lab / Micro Data 11/11/24 05:30 11/11/24 05:30 Physical Exam Const alert and oriented x3 Constitutional Narrative: she is pleasant and asking appropriate questions. More talkative today and seems more relaxed. She is cooperating with therapy and more trusting of what we are trying to help her with. General Appearance: cooperative Eyes PERRL and EOMs intact bilaterally Neck Neck Narrative: She has pain in the R posterior neck along the cervical vertebral muscles. The pain is worst at the insertion of the R trapezius muscle into the occiput........has localized spasm of the muscle at this point. No nuchal rigidity and she has good ROM in the cervical spine. No cervical adenopathy. Resp clear to auscultation bilaterally Resp Narrative: No conversational dyspnea. Effort and Inspection: Negative for tachypneic or respiratory distress Cardio regular rate, regular rhythm, no murmurs, no rub and no gallops Cardio Narrative: No ectopy GI normal to inspection, nondistended, normoactive bowel sounds, soft to palpation and non-tender GI Narrative: No guarding with palpation. Extremity no calf tenderness Extremity Narrative: Some edema of the left hand and the left ankle due to immobility/hemiplegia General Extremity: edema Skin Rashes: no rashes Assessment & Plan Assessment/Plan (1) Debility: (2) Stroke: QUALIFIERS: CVA mechanism: unspecified Qualified Code(s): I63.9 - Cerebral infarction, unspecified (3) Acute left-sided weakness: (4) Hypertension: QUALIFIERS: Hypertension type: unspecified Qualified Code(s): I10 - Essential (primary) hypertension (5) Vaping nicotine dependence, non-tobacco product: (6) Acquired polycythemia: (7) ADHD: QUALIFIERS: Attention deficit-hyperactivity disorder type: unspecified Qualified Code(s): F90.9 - Attention-deficit hyperactivity disorder, unspecified type (8) Amphetamine use: (9) Migraine headache: QUALIFIERS: Migraine type: unspecified Status migrainosus presence: without status migrainosus Intractability: not intractable Qualified Code(s): G43.909 - Migraine, unspecified, not intractable, without status migrainosus (10) Anxiety: (11) Abnormal LFTs: (12) V-tach: PLAN: Non-sustained. Was on Amphetamine at the time. (13) Central neuropathic pain: (14) Insomnia: QUALIFIERS: Insomnia type: unspecified Qualified Code(s): G47.00 - Insomnia, unspecified PLAN: chronic........may be due to anxiety and amphetamines......using ETOH and marijuana to self-medicate. (15) 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 (CVA): PLAN: this predated the stroke (16) Neck pain on right side: PLAN: Plan 1. Continue therapy 2. Change the Wellbutrin, being utilized for ADHD, to 0700 and 1500. 3. Continue the Gabapentin.......she denies Left buttock and Left leg pain today and also denies pain in the R upper arm/shoulder. Slept well last night. 4. D/W plans on how to get her counselling at [place]. 5. Will get an appt with Dr. Ge when we have a [place] date........Elin is agreeable to seeing Dr. Ge for management of CVA, migraines and ADD. 6. Continue Buspar for anxiety. 7. plan trigger point injections R cervical paravertebral muscles. D/W Dr. Escobar. He is currently out of town but, it the trigger point injections are not effective will consider botox. He will be back in town next Monday. Can also try Baclofen if tizanidine is not working. 8. Continue propranolol for nonsustained ventricular tachycardia, migraine and hypertension Charges/Coding Visit Charges Inpatient E&M: 91278 Subs Hosp L1
--- NOTE | 2024-11-12 15:46 | CHAPLAIN ---
Type of Pastoral Visit ___ Initial Visit _x__ Follow-up Visit ___ On-call Visit ___ General Patient Visit ___ Spiritual Assessment ___ Family Conference ___ Bereavement ___ Rapid Response ___ Code Blue ___ Other (describe below) Pastoral Care Referral From _x__ Patient ___ Family ___ Nurse ___ Physician ___ Flower Arranger ___ Warehouse Foreman ___ Other (describe below) Sacrament/Intervention _x__ Active listening ___ Anointing ___ Rastafari ___ Bereavement ___ Communion ___ Yadira exploration ___ ___ Life review _x__ Prayer ___ Reconciliation ___ Sacrament of Sick _x__ Supportive presence ___ Wedding ___ Other (describe below) Pastoral Comments patient was previously seen in PCU; pt is now in Rehab and doing her therapy; pt is resting in bed but awake; pt is moving her extremities and talking clearly in obvious improvements to her condition; pt states that same and reports feeling more encouraged and motivated to get home and back to work soon; pt acknowledges good support and many prayers that have contributed to her recovery so far; pt is asked about how to help and support her and she replies 'just keep on praying'; pt welcomes prayer and presence
[2024-11-12] MEDS: Lidocaine/Prilocaine HCl 5 GM Tube TOPICAL (16:01)
--- NOTE | 2024-11-12 17:33 | PCM.PN.BLA ---
Progress Note Pt was reaching for her bedside table and slid out of bed. Nursing found her on the floor when they responded to the alarm. she denies hitting her head and denies any injuries. she has no bone deformities and she is alert and oriented. No lacerations or abrasions. No hematomas. She was assisted back to bed. Procedure note: Procedure - trigger point injects in the R paracervical muscles. Medication: Decadron 10 mg and bupivacaine 0.5% solution, 2 mL The area was anesthetized with EMLA cream and an occlusive dressing. After 5 minutes the area was cleansed with betadine. A line of injections were done starting at the insertion of the trapezius onto the occiput and ending at the base of the neck along the cervical paravertebral muscles. She tolerated the procedure well. I re-examoined after 10 minutes and the paqin was nearly completely gone.
[2024-11-12 18:00] VITALS: BP 137/85; PULSE 71; RESP 16; TEMP 36.8; O2SAT 98
[2024-11-12] MEDS: Erythromycin Base 1 OPTH.TUBE 1 APPLIC OPHTHALMIC (21:47)
[2024-11-13 06:00] VITALS: BP 109/71; PULSE 79; RESP 18; TEMP 36.3; O2SAT 97
[2024-11-13] MEDS: prednisoLONE eye drops (5 mL) 1 DROP OPTH.BTL 1 DRP EACH EYE ×4 (08:14→22:11)
--- NOTE | 2024-11-13 11:58 | CASEMGMT ---
Social Work SW met with patient to complete initial assessment. Introduced self and role. Educated to [facility] insurance with NRD 11/19 and continued stay is not guaranteed with each review; advanced notice is not required. SW will assist with ongoing discharge planning. Identified pt will likely need a FWW and [facility] PT/OT/ST/SN/SW at time of DC. SW educated some DME recommended, is not covered by the insurance and pt will need to purchase to some OOP. Pt expressed understanding. SW and pt discussed extensively pt's mental health and personal history. SW provided ongoing emotional and verbal support. previously discussed the importance of mental health and alcohol counseling, psychiatry, along with tobacco cessation program, and establishing with a PCP. HATCHERY WORKER spoke with pt about [facility], but pt prefers individual counseling and is not currently interested in IOP. SW provided a list of options and educated to [employer] as a resource that can assist with mental health, alcohol and psychiatry services. Pt agreeable as her employer works closely with [facility] [employer]. SW offered to make referral and gather insurance coverage information. pt appreciative. Pt also agreeable to 's suggestion to establish at [facility] with Torri Zapata NP, as PCP. Pt also inquired about assistance with pediatricians for son. SW offered to provide options and assist with establishing. Pt appreciative. SW offered ongoing support throughout stay, and to ask for SW anytime. Pt appreciative of time. SW will continue to follow. Time Spent: 90 minutes Tamra Romero PIT SHOVEL OPERATOR INSURANCE MARKETING REP
[2024-11-13] MEDS: Arthritis Pain Compound 60 CLICK TUBE TOPICAL ×2 (14:00→22:11)
[2024-11-13 17:11] VITALS: BP 140/95; PULSE 88; RESP 16; TEMP 36.8; O2SAT 99
[2024-11-13 22:00] VITALS: BP 130/79; PULSE 92; RESP 16; TEMP 37.3; O2SAT 97
[2024-11-13] MEDS: Erythromycin Base 1 OPTH.TUBE 1 APPLIC OPHTHALMIC (22:12)
[2024-11-14 06:00] VITALS: BP 107/72; PULSE 78; RESP 16; TEMP 36.9; O2SAT 97
[2024-11-14] MEDS: Arthritis Pain Compound 60 CLICK TUBE TOPICAL ×3 (06:08→22:07)
[2024-11-14] MEDS: prednisoLONE eye drops (5 mL) 1 DROP OPTH.BTL 1 DRP EACH EYE ×2 (08:00→15:03)
--- NOTE | 2024-11-14 13:01 | CASEMGMT ---
Addendum entered by Tamra Romero 11/14/24 14:12: SW phoned Aaron and left him a detailed VM. Addendum entered by Tamra Romero 11/14/24 14:06: SW scheduled pt's son with [facility] with ABDELRAHMAN Nur for 11/25/24 at 0930. SW updated pt and pt appreciative and requested this worker contact Aaron to notify him of that appt for Aaron to take son to appt. SW agreed. Pt inquired about custody arrangements with son. SW confirmed with pt that it is court order shared custody, thus while pt is unable to be the primary parent, Aaron would assume that role, until pt returns home, then arrangements will return to normal. Pt appreciative. Original Note: Social Work IDT met with patient at bedside and Aunt Gloria via conference call for Team meeting. Discussed patient's progress in PT/OT/ST/SN/MD. [facility]ated to [facility] with [facility] 11/19 and continued stay is not guaranteed with each review, and advanced notice is not required. Pt is making improvements and optimistic for continued stay with therapy. Pt's goal is to return home with family support with increased progress and independence. Pt is not wishing to DC to a SNF. KATJA provided pt with [facility], Healthcare Provider Directory with noted Dr's that pt will follow up with at DC. SW to contact twine reeling machine operator offices to inquire about who is accepting new patients and can accept son's insurance. Pt appreciative. SW will continue to follow for ongoing support and DC planning. Will ReTeam weekly. Mother walked in at the conclusion of Team meeting. Pt to share updates with mother. Tamra Romero ARMOR RECONNAISSANCE SPECIALIST SERVICE ELECTRICIAN
--- NOTE | 2024-11-14 15:48 | PCM.PROGNOTE ---
Subjective Subjective Elin was seen on team rounds today. Her aunt, Gloria, participated by phone. Mother showed up late after rounds were completed. Afebrile The blood pressure over the past 24 hours has ranged from 107/72 to 140/95. Heart rate is within normal limits. Maintaining appropriate oxygen saturation on room air Good appetite and intake. Good fluid intake. She is not complaining of pain to me or PT but, if you ask her about pain she complains and it is very severe. Does not appear to be in any significant distress. Has not c/o a BRIGGS. The Tizanidine seems to help with c/o neck pain. She had a dose last night close to [place] and she took a dose before lunch today. But, she says it makes her sleepy and she does not want to take it. She is tearful at times. She tells me that she is not sleeping well at night but, she does not want to take Tizanidine because it makes her sleepy. Gloria mentioned that Elin is very worried about the ADD and being off amphetamines. This contributed to the strokes she has and she can no longer take this medication or Triptans or Nurtac due to the cerebrovascular disease. Strattera is also contraindicated with Strokes, CP, CV disease. We are left with treating with Wellbutrin. She has not c/o CP, SOB, N/V/abd pain, dysuria. She tells me that she is taking Erythromycin eye drops and prednisolone ophthalmic because she saw an eye doctor at the [facility] and she had hundreds of cuts in her eyes and they were dry an red? She apparently applies artificial eyelashes......she wanted the nurse to help her with this today. She can not recall the name of the eye doctor she saw. She has a very difficult time maintaining focus. Objective Data Objective Data Vital Signs: Vital Signs Temp Pulse Resp BP Pulse Ox O2 Del Method 98.5 F 78 16 107/72 97 Room Air 11/14/24 06:00 11/14/24 06:00 11/14/24 06:00 11/14/24 06:00 11/14/24 06:00 11/14/24 06:00 Oxygen Delivery Method Room Air Weight: 167 lb 8.821 oz Body Mass Index (BMI) 28.8 Intake & Output: Intake and Output for Last 24 Hours 11/12/24 11/13/24 11/14/24 23:59 23:59 23:59 Intake Total 1660 / 1660 1340 / 1340 1030 / 1030 Output Total 1300 / 1300 1525 / 1525 750 / 750 Balance 360 / 360 -185 / -185 280 / 280 Lab / Micro Data 11/11/24 05:30 11/11/24 05:30 Physical Exam Const Constitutional Narrative: Awake, does not appear to be in any distress. she does better lezama she has distractions......the complaints decrease and she is better able to focus when she is working with therapy. Eyes PERRL and EOMs intact bilaterally Eyes Narrative: NO conjunctival injection and no DC from the eyes. There is no mattering of the eyelashes. She is tearful at times when we are talking. Emotionally labile. Neck supple, thyroid normal and No nodes Neck Narrative: She has full ROM in the cervical spine. General: trachea midline Resp clear to auscultation bilaterally Resp Narrative: No conversational dyspnea. Effort and Inspection: Negative for tachypneic Cardio regular rate, regular rhythm, no murmurs, no rub and no gallops Cardio Narrative: No ectopy GI normal to inspection, nondistended, normoactive bowel sounds, soft to palpation and non-tender GI Narrative: Having BM's. No guarding with palpation. Neuro Neuro Narrative: Still with L side neglect. She is able to advance her Left leg when walking now but, she has no control over where it is going and she is not paying attention to what it is doing. Assessment & Plan Assessment/Plan (1) Debility: (2) Stroke: QUALIFIERS: CVA mechanism: unspecified Qualified Code(s): I63.9 - Cerebral infarction, unspecified (3) Acute left-sided weakness: (4) Hypertension: QUALIFIERS: Hypertension type: unspecified Qualified Code(s): I10 - Essential (primary) hypertension (5) Vaping nicotine dependence, non-tobacco product: (6) Acquired polycythemia: (7) ADHD: QUALIFIERS: Attention deficit-hyperactivity disorder type: unspecified Qualified Code(s): F90.9 - Attention-deficit hyperactivity disorder, unspecified type (8) Amphetamine use: (9) Migraine headache: QUALIFIERS: Migraine type: unspecified Status migrainosus presence: without status migrainosus Intractability: not intractable Qualified Code(s): G43.909 - Migraine, unspecified, not intractable, without status migrainosus (10) Anxiety: (11) Abnormal LFTs: (12) V-tach: (13) Central neuropathic pain: (14) Insomnia: QUALIFIERS: Insomnia type: unspecified Qualified Code(s): G47.00 - Insomnia, unspecified (15) 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 (CVA): (16) Neck pain on right side: PLAN: Plan 1. Continue therapy 2. Discontinue prednisolone and erythromycin ophthalmic preparations 3. Obtain records from [facility] regarding what she is being treated for. 4. No eye make-up and no fake eyelashes. The eyes are normal in appearance, she has no visual field cuts, there is no conjunctival irritation or injection, there is no discharge from the eyes and there is no mattering of the eyelashes. 5. DC PRN Tizanidine and schedule a dose of 4 mg Tizanidine at HS. 6. Recheck labs on Monday. 7. Increase Buspar to 5 mg TID. 8. We had a talk about polypharmacy and drug interactions. Charges/Coding Visit Charges Inpatient E&M: 55701 Subs Hosp L2
[2024-11-14 18:00] VITALS: BP 115/64; PULSE 80; RESP 16; TEMP 36.3; O2SAT 98
[2024-11-14 22:00] VITALS: BP 112/66; PULSE 87; RESP 16; TEMP 36.8; O2SAT 97
[2024-11-15 06:00] VITALS: BP 100/61; PULSE 72; RESP 16; TEMP 36.7; O2SAT 97; BMI 29.0
[2024-11-15] MEDS: Arthritis Pain Compound 60 CLICK TUBE TOPICAL ×3 (06:32→21:36)
[2024-11-15] MEDS: buPROPion (XL) 150 MG TABLET.XL PO (08:56)
[2024-11-15 18:00] VITALS: BP 132/87; PULSE 72; RESP 16; TEMP 36.2; O2SAT 96
[2024-11-16 05:33] VITALS: BP 131/88; PULSE 74; RESP 16; TEMP 36.4; O2SAT 98
[2024-11-16] MEDS: Arthritis Pain Compound 60 CLICK TUBE TOPICAL ×3 (05:48→22:09)
[2024-11-16] MEDS: buPROPion (XL) 150 MG TABLET.XL PO (08:01)
[2024-11-16 09:40] VITALS: BP 136/90; PULSE 77
[2024-11-16 13:39] VITALS: BP 136/82; PULSE 75
[2024-11-16 17:58] VITALS: BP 145/90; PULSE 76; RESP 16; TEMP 36.4; O2SAT 97
[2024-11-16] MEDS: Senna/Docusate Sodium 1 Tablet 2 TABLET PO (22:10)
[2024-11-17 06:00] VITALS: BP 155/92; PULSE 67; RESP 18; TEMP 36.8; O2SAT 98
[2024-11-17] MEDS: Arthritis Pain Compound 60 CLICK TUBE TOPICAL ×3 (06:11→20:20)
[2024-11-17 08:34] VITALS: BP 142/88; PULSE 74
[2024-11-17] MEDS: Senna/Docusate Sodium 1 Tablet 2 TABLET PO (08:36)
[2024-11-17] MEDS: buPROPion (XL) 150 MG TABLET.XL PO (08:37)
[2024-11-17 13:00] VITALS: BP 144/86; PULSE 71
[2024-11-17 17:30] VITALS: BP 134/94; PULSE 78; RESP 16; TEMP 36.7; O2SAT 98
[2024-11-18] MEDS: Arthritis Pain Compound 60 CLICK TUBE TOPICAL ×3 (04:53→21:46)
[2024-11-18 05:11] VITALS: BP 136/84; PULSE 68; RESP 17; TEMP 36.8; O2SAT 100
[2024-11-18 06:09] LABS: Hematocrit 37.2 % (37-47); Hemoglobin 12.7 g/dL (12.0-15.0); Immature Granulocytes Count 0.090 X10^3/uL (0.0-0.0); Mean Corp Hgb Conc 34.1 g/dL (32-36); Mean Corpuscular Volume 90.5 fL (81-99); Mean Platelet Vol. 9.7 fl (6.2-12.0); NRBC Flagged by Analyzer 0 % (0-5); Platelet Count 405 K/mm3 (150-450); RBC Distribution Width CV 12.1 % (11.6-14.6); RBC Distribution Width SD 39.4 fl (35.1-43.9); Red Blood Count 4.11 M/mm3 (4.2-5.4); White Blood Count 9.9 K/mm3 (4.4-11.0)
[2024-11-18 06:48] LABS: AST(SGOT) 32 U/L (<=31); Alanine Aminotransfer ALT/SGPT 65 U/L (<=34); Albumin, Serum 3.8 g/dL (3.5-5.0); Alkaline Phosphatase 68 U/L (35-104); Anion Gap 10 (5-15); BUN 13 mg/dL (4-19); BUN/Creat Ratio 20.2 RATIO (10-20); Calcium,Total 9.0 mg/dL (7.6-11.0); Carbon Dioxide 24.0 mmol/L (21.0-32.0); Chloride 104 mmol/L (98-108); Cholesterol 143 mg/dL (<=200); Estimated Creatinine Clearance 117.83 ml/min (50-250); Globulin 2.4 g/dL (2.2-4.2); Glucose 102 mg/dL (70-99); Low Density Lipoprotein Calc. 59 mg/dL; Potassium 4.1 mmol/L (3.3-5.1); Triglycerides 179 mg/dL; Very Low Density Lipoprotein 36 mg/dL (5-40); cholesterol:hdl ratio screen 2.94
[2024-11-18] MEDS: buPROPion (XL) 150 MG TABLET.XL PO (07:54)
[2024-11-18 09:11] VITALS: BP 135/80; PULSE 73
[2024-11-18] MEDS: Senna/Docusate Sodium 1 Tablet 2 TABLET PO ×2 (09:15→21:43)
--- NOTE | 2024-11-18 10:13 | PCM.PROGNOTE ---
Subjective Subjective Afebrile VSS -blood pressure over the past 48 hours has ranged from 135/80 - 155/92. Heart rate is within normal limits. Lisinopril dose was increased yesterday back to 10 mg daily. Maintaining appropriate oxygen saturation on RA Oral intake - FOOD good FLUIDS good Discussed with nursing - no problems that need addressed Reviewed the THERAPY notes - I discuss the attention with ST and the ST feels she is better able to focus and attend to what she is working on. She is less impulsive. Medication list reviewed. BuSpar was increased to 10 mg twice daily and 5 mg at bedtime yesterday for anxiety. She is still feeling somewhat anxious at times but better than at admission. Elin tells me she is sleeping well at night. She denies headache. Neck pain is much better with the trigger point injections and use of tizanidine at bedtime. She has been very cooperative. Seems a little more focused. Denies N/V/abd pain/abd cramping/constipation. Tolerating Wellbutrin 150 mg daily with no adverse side effects. She denies chest pain, shortness of breath, palpitations, vertigo, lightheadedness, nausea/vomiting/abdominal pain, dysuria and calf pain. All lab from this morning was personally reviewed. White blood cell count is normal. Hemoglobin is 12.7 and stable. Platelets are within normal limits. Sodium is normal at 138 and the potassium is 4.1. The BUN is 13 with a stable creatinine of 0.63. LFTs are unremarkable. The AST is normal today at 32, down from 60 at admission. The ALT is still mildly elevated at 65 but this is down from 98 at admission. Bilirubin and alk phos are within normal limits. Triglycerides are 179 and the LDL is 59 with an HDL of 49. Objective Data Objective Data Vital Signs: Vital Signs Temp Pulse Resp BP Pulse Ox O2 Del Method 98.2 F 73 17 135/80 H 100 Room Air 11/18/24 05:11 11/18/24 09:11 11/18/24 05:11 11/18/24 09:11 11/18/24 05:11 11/18/24 05:11 Oxygen Delivery Method Room Air Weight: 169 lb 2.924 oz Body Mass Index (BMI) 29.0 Intake & Output: Intake and Output for Last 24 Hours 11/16/24 11/17/24 11/18/24 23:59 23:59 23:59 Intake Total 2124 1465 / 1465 Output Total 2074 1300 / 1300 600 / 600 Balance 50 / 50 165 / 165 -600 / -600 Lab / Micro Data 11/18/24 06:00 11/18/24 06:00 Labs: Laboratory Results - last 24 hr 11/18/24 06:00: WBC 9.9, RBC 4.11 L, Hgb 12.7, Hct 37.2, MCV 90.5, MCH 30.9, MCHC 34.1, RDW Std Deviation 39.4, RDW Coeff of Maria Teresa 12.1, Plt Count 405, MPV 9.7, Immature Gran % (Auto) 0.900, Neut % (Auto) 62.3, Lymph % (Auto) 28.2, Jackson % (Auto) 6.4, Eos % (Auto) 1.9, Baso % (Auto) 0.3, Absolute Neuts (auto) 6.2, Absolute Lymphs (auto) 2.80, Nucleated RBC % 0, Sodium 138, Potassium 4.1, Chloride 104, Carbon Dioxide 24.0, Anion Gap 10, BUN 13, Creatinine 0.63 L, Estim Creat Clear Calc 117.83, Est GFR (MDRD) Non-Af 114, BUN/Creatinine Ratio 20.2 H, Glucose 102 H, Calcium 9.0, Total Bilirubin 0.24, AST 32, ALT 65 H, Alkaline Phosphatase 68, Total Protein 6.1, Albumin 3.8, Globulin 2.4, Albumin/Globulin Ratio 1.6, Triglycerides 179, Cholesterol 143, LDL Cholesterol, Calc 59, VLDL Cholesterol 36, HDL Cholesterol 49, Cholesterol/HDL Ratio 2.94 Physical Exam Const Constitutional Narrative: I observed her ambulating in the mota with FWW and she is advancing the Left foot with no assistance and her pace is much improved. She is more aware of the LLE and it is not swinging out laterally nearly as much. She is calmer and flight of ideas and fidgeting are less. General Appearance: cooperative Eyes PERRL and EOMs intact bilaterally Eyes Narrative: Conjunctiva is clear. No discharge from the eyes and no mattering of the eyelashes. Neck supple Neck Narrative: She is telling me that the spasms in the Trapezius ridges are much better than her normal. General: trachea midline Resp normal respiratory effort and clear to auscultation bilaterally Cardio regular rate, regular rhythm, no murmurs, no rub and no gallops Cardio Narrative: No ectopy GI normal to inspection, nondistended, normoactive bowel sounds, soft to palpation and non-tender GI Narrative: No guarding with palpation. Last bowel movement was today.....also had a BM yesterday and Monday Extremity no calf tenderness General Extremity: Negative for edema Skin General Skin Exam: no breakdown Rashes: no rashes Assessment & Plan Assessment/Plan (1) Debility: (2) Stroke: QUALIFIERS: CVA mechanism: unspecified Qualified Code(s): I63.9 - Cerebral infarction, unspecified (3) Acute left-sided weakness: (4) Hypertension: QUALIFIERS: Hypertension type: unspecified Qualified Code(s): I10 - Essential (primary) hypertension (5) Vaping nicotine dependence, non-tobacco product: (6) Acquired polycythemia: (7) ADHD: QUALIFIERS: Attention deficit-hyperactivity disorder type: unspecified Qualified Code(s): F90.9 - Attention-deficit hyperactivity disorder, unspecified type (8) Amphetamine use: (9) Migraine headache: QUALIFIERS: Migraine type: unspecified Status migrainosus presence: without status migrainosus Intractability: not intractable Qualified Code(s): G43.909 - Migraine, unspecified, not intractable, without status migrainosus (10) Anxiety: (11) Abnormal LFTs: (12) V-tach: (13) Central neuropathic pain: (14) Insomnia: QUALIFIERS: Insomnia type: unspecified Qualified Code(s): G47.00 - Insomnia, unspecified (15) 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 (CVA): (16) Neck pain on right side: PLAN: Plan 1. Continue therapy 2. Increase Wellbutrin XL to 300 milligrams daily in the a.m. Continue Cymbalta. Continue Buspar for anxiety. Multiple psychoactive drugs being used to control ADHD and treat anxiety and depression which predated the stroke. She is making good improvement. 3. Continue to monitor the blood pressure closely with a goal of less than 135/80. If it remains above goal will increase the Lisinopril......No cough. 4. Continue high intensity statin. LFTs are actually improving. Charges/Coding Visit Charges Inpatient E&M: 12692 Subs Hosp L1
[2024-11-18 16:54] VITALS: BP 133/88; PULSE 74; RESP 16; TEMP 36.7; O2SAT 98
[2024-11-18 17:00] VITALS: BMI 29.0
--- NOTE | 2024-11-18 22:04 | CM.ED ---
Social work Patient's son was in the ED with anxiety. Since it was after visiting hours ended, this SW called [facility] nurses and accompanied patient's son (with permission) to meet with patient and go over patient's son's safety plan. Patient was grateful for SW support and help with bringing patient's son up to visit. Erica Holley, AVIATION MEDICINE SPECIALIST, CHARGE MANAGER
[2024-11-19 03:31] VITALS: BMI 29.0
[2024-11-19 04:26] VITALS: BP 101/62; PULSE 67; RESP 16; TEMP 36.4; O2SAT 93
[2024-11-19] MEDS: Arthritis Pain Compound 60 CLICK TUBE TOPICAL ×3 (05:30→20:30)
[2024-11-19] MEDS: buPROPion (XL) 300 MG TABLET.XL PO (08:00)
--- NOTE | 2024-11-19 08:19 | PN_ITS ---
Subjective Subjective Afebrile VSS -blood pressure over the past 24 hours has ranged from 101/62 to 133/88. Maintaining appropriate oxygen saturation on RA Oral intake - FOOD good FLUIDS good Having regular bowel movements. Discussed with nursing - Had some family drama last night. Apparently her son said he was going to kill himself and he was sent to the Ed to be evaluated. The ED SW came up and talked with the patient and they discussed plan for safety. She slept well after she spoke with the SW. She was surprised that she could go to sleep after the SW talked with her. Normally she would be awake and upset. She recognizes that she is better able to focus. she is making great progress with therapy. Reviewed the THERAPY notes Medication list reviewed. Will start Wellbutrin XL 300 mg daily today. Agustina denies cephalgia, neck pain, lightheadedness, chest pain, shortness of breath, cough, nausea/vomiting/abdominal pain and calf pain. Objective Data Objective Data Vital Signs: Vital Signs Temp Pulse Resp BP Pulse Ox O2 Del Method 97.5 F L 67 16 101/62 93 Room Air 11/19/24 04:26 11/19/24 04:26 11/19/24 04:26 11/19/24 04:26 11/19/24 04:26 11/19/24 04:26 Oxygen Delivery Method Room Air Weight: 169 lb 2.924 oz Body Mass Index (BMI) 29.0 Intake & Output: Intake and Output for Last 24 Hours 11/17/24 11/18/24 11/19/24 23:59 23:59 23:59 Intake Total 1465 / 1465 1260 / 1260 240 / 240 Output Total 1300 / 1300 2150 / 2150 300 / 300 Balance 165 / 165 -890 / -890 -60 / -60 Lab / Micro Data 11/18/24 06:00 11/18/24 06:00 Physical Exam Const alert, oriented x3 and no apparent distress General Appearance: cooperative Resp normal respiratory effort and clear to auscultation bilaterally Cardio regular rate and regular rhythm Cardio Narrative: No ectopy GI normal to inspection, nondistended, normoactive bowel sounds, soft to palpation and non-tender Extremity no calf tenderness Assessment & Plan Assessment/Plan (1) Debility: (2) Stroke: QUALIFIERS: CVA mechanism: unspecified Qualified Code(s): I63.9 - Cerebral infarction, unspecified (3) Acute left-sided weakness: (4) Hypertension: QUALIFIERS: Hypertension type: unspecified Qualified Code(s): I10 - Essential (primary) hypertension (5) Vaping nicotine dependence, non-tobacco product: (6) Acquired polycythemia: (7) ADHD: QUALIFIERS: Attention deficit-hyperactivity disorder type: u nspecified Qualified Code(s): F90.9 - Attention-deficit hyperactivity disorder, unspecified type (8) Migraine headache: QUALIFIERS: Migraine type: unspecified Status migrainosus presence: without status migrainosus Intractability: not intractable Qualified Code(s): G43.909 - Migraine, unspecified, not intractable, without status migrainosus (9) Anxiety: (10) V-tach: (11) Central neuropathic pain: (12) 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 (CVA): PLAN: Plan 1. Continue therapy 2. Increase lisinopril to 10 mg p.o. twice daily. No other changes to the drug regimen today. Charges/Coding Visit Charges Inpatient E&M: 06629 Subs Hosp L1
[2024-11-19 11:49] VITALS: BMI 29.0
--- NOTE | 2024-11-19 15:24 | CASEMGMT ---
Social Work SW notified of situation pt had with son last evening. SW collaborated with Director of CM to ensure proper assistance and protocol was being followed by this worker. After speaking with pt, SW updated Director and no further action was required of this worker. - SW spoke with pt approx [phone]. Offered support to pt. Pt shared events and what transpired with son and son's father. Pt expressed her feelings and this worker assisting in debriefing with pt. Pt reflected that she was able to practice emotional regulation during conversation with son and ER SW, ie. not being reactive and emotional. Pt reported it was freeing to react appropriately and not being dysregulated constantly. Pt happy that the medication changes are showing improvement. SW commended pt for breakthrough, managing the situation and emotions appropriately. Praised for overall success. SW provided ongoing emotional and verbal support and offered ongoing assistance as pt needs. Pt appreciative and agreed to contact this worker. Pt did inquire about DC plans if insurance does approve continued stay. SW discussed plans with pt. Pt stated her mother is staying with pt and son and can assist. SW offered skilled HHC for PT/OT/ST/SN/SW. Pt agreed. SW offered to provide list of options, however, pt has limited choices through insurance. SW offered to refer to HHC agencies and notify pt of accepting providers for pt's preference. Pt agreed. SW offered to coordinate DME needs through insurance as well. pt appreciative. Will Team . Tamra ALCALAW
[2024-11-19 17:35] VITALS: BP 129/76; PULSE 70; RESP 16; TEMP 37.1; O2SAT 98
[2024-11-19] MEDS: Senna/Docusate Sodium 1 Tablet 2 TABLET PO (20:33)
[2024-11-19 20:34] VITALS: BMI 29.0
[2024-11-20 05:27] VITALS: BP 107/64; PULSE 64; RESP 17; TEMP 36.7; O2SAT 99
[2024-11-20] MEDS: Arthritis Pain Compound 60 CLICK TUBE TOPICAL ×3 (08:12→21:41)
[2024-11-20] MEDS: buPROPion (XL) 300 MG TABLET.XL PO (08:12)
[2024-11-20 08:16] VITALS: BP 109/76; PULSE 74
[2024-11-20 12:34] VITALS: BP 135/85; PULSE 69
--- NOTE | 2024-11-20 12:54 | NURSING ---
At 1230 staff assist alerted from in pt. room. This nurse quickly went to pt. room to assess situation. Pt. found in room on floor sitting upright, RAIL EQUIPMENT OPERATOR at pt. side. RAIL EQUIPMENT OPERATOR stated she was transferring pt. and RAIL EQUIPMENT OPERATOR turned away for a second, RAIL EQUIPMENT OPERATOR stated when she looked back pt. had fallen to floor. Pt. states she lost her bearings and went down. Pt. states landing on her on left hip and bumping her head on the trash can. This nurse assessed areas pt. identified. Reddened area noted to left hip, pt. complaints of no pain to hip even with palpation. No open areas or visual injury to head of pt. Vitals taken while pt. sitting on floor, BP 135/85 HR 69. Pt. assisted back to bed with help of Meenakshi RN and Sonia PT. Physician notified of event. Pt. declined notification of family. GRACY updated on worklist.
--- NOTE | 2024-11-20 12:54 | NURSING ---
At 1230 staff assist alerted from in pt. room. This nurse quickly went to pt. room to assess situation. Pt. found in room on floor sitting upright, FMD TEACHER at pt. side. FMD TEACHER stated she was transferring pt. and FMD TEACHER turned away for a second, FMD TEACHER stated when she looked back pt. had fallen to floor. Pt. states she lost her bearings and went down. Pt. states landing on her on left hip and bumping her head on the trash can. This nurse assessed areas pt. identified. Reddened area noted to left hip, pt. complaints of no pain to hip even with palpation. No open areas or visual injury to head of pt. Vitals taken while pt. sitting on floor, BP 135/85 HR 69. Pt. assisted back to bed with help of Meenakshi RN and Sonia PT. Physician notified of event. Pt. declined notification of family. GRACY updated on worklist. [employer] entered on Intranet.
--- NOTE | 2024-11-20 16:19 | CASEMGMT ---
Social Work [facility] accept pt pending establishment with new PCP. Tamra Romero COURIER DRIVER PERINATAL INSTRUCTOR
[2024-11-20 17:00] VITALS: BMI 29.0
[2024-11-20 17:55] VITALS: BP 113/64; PULSE 71; RESP 17; TEMP 36.7; O2SAT 95
[2024-11-20 21:38] VITALS: BP 131/95; PULSE 75; O2SAT 100
[2024-11-20] MEDS: Senna/Docusate Sodium 1 Tablet 2 TABLET PO (21:52)
[2024-11-21 02:27] VITALS: BMI 29.0
[2024-11-21 05:40] VITALS: BP 121/76; PULSE 68; RESP 17; TEMP 36.1; O2SAT 99
[2024-11-21] MEDS: Arthritis Pain Compound 60 CLICK TUBE TOPICAL ×3 (05:55→21:24)
[2024-11-21] MEDS: buPROPion (XL) 300 MG TABLET.XL PO (08:11)
[2024-11-21] MEDS: Senna/Docusate Sodium 1 Tablet 2 TABLET PO ×2 (08:12→21:24)
[2024-11-21 10:46] VITALS: BP 124/80; PULSE 67; RESP 18; O2SAT 98
--- NOTE | 2024-11-21 11:07 | CASEMGMT ---
Social Work SW phoned [facility] to establish pt with counselor for alcohol and mental health, and pyschiatry. KATJA scheduled with Eva, counselor, at 12/09, and counselor will refer to psychiatry. Tamra Romero MSW EMPLOYMENT CLERK
--- NOTE | 2024-11-21 12:46 | CASEMGMT ---
Social Work IDT met with patient, mother and grandmother at bedside, then aunt via conference call for Team meeting. Discussed patient's progress in PT/OT/ST/SN/MD. Educated to [facility] with NRD 11/26 and continued stay is not guaranteed with each review. SW informed pt that [facility] can accept pending PCP signing orders; [facility] counseling appt scheduled for 12/09; will refer to driving rehab at [place]. SW provided resources for driving rehab, stroke support group. Pt reports feeling more emotionally regulated and doing well. IDT agreed. Pt will need a w/c at DC, and SW to coordinate. Will continue to follow for DC planning. Tamra Romero REFRIGERATION SYSTEMS INSTALLER REAL ESTATE PROCESSOR
--- NOTE | 2024-11-21 14:52 | PN_ITS ---
Subjective Subjective Elin was seen on TEAM rounds today. Her mother and grandmother were present in the room and he Aunt Gloria participated by phone. All questions were answered. Afebrile VSS -blood pressure for the past 24 hours has ranged from 107/64 to 131/95. HR is WNL. Most of the time the BP is less than 135/80. Maintaining appropriate oxygen saturation on RA Oral intake - FOOD good FLUIDS Fluid intake has been good but, the nursing documentation for fluid intake yesterday was not accurate. Discussed with nursing - no problems that need addressed. She is sleeping well at night. She had another fall yesterday. No injuries. she was reminded that she is stand pivot only with nursing assist and she is only to ambulate with therapy. Reviewed the THERAPY notes - has been very good improvement with therapy. She is ambulating with a SC now and the LLE is non longer being wrapped into dorsiflexion. Medication list reviewed. She c/o dysuria to nursing one time last night but, she denies to me today. She feels she is doing well and she is very happy at feeling more in control. She no longer is complaining of cephalgia or neck pain. She denies chest pain, palpitations, shortness of breath, cough, nausea/vomiting/abdominal pain and calf pain. She is sleeping well at night. She feels her anxiety is much better controlled. SW made an appt for her to follow up at [facility]. They have a psychiatrist working with them if she needs to be seen. Objective Data Objective Data Vital Signs: Vital Signs Temp Pulse Resp BP Pulse Ox O2 Del Method 96.9 F L 67 18 124/80 H 98 Room Air 11/21/24 05:40 11/21/24 10:46 11/21/24 10:46 11/21/24 10:46 11/21/24 10:46 11/21/24 10:46 Oxygen Delivery Method Room Air Weight: 169 lb 2.924 oz Body Mass Index (BMI) 29.0 Intake & Output: Intake and Output for Last 24 Hours 11/19/24 11/20/24 11/21/24 23:59 23:59 23:59 Intake Total 1480 / 1480 250 / 250 720 / 720 Output Total 800 / 1050 550 / 550 400 / 400 Balance 680 / 430 -300 / -300 320 / 320 Lab / Micro Data 11/18/24 06:00 11/18/24 06:00 Physical Exam Const alert and no apparent distress General Appearance: cooperative Resp normal respiratory effort and clear to auscultation bilaterally Cardio regular rate and regular rhythm Cardio Narrative: No ectopy GI normal to inspection, nondistended, normoactive bowel sounds, soft to palpation and non-tender Extremity no calf tenderness Assessment & Plan Assessment/Plan (1) Debility: (2) Stroke: QUALIFIERS: CVA mechanism: unspecified Qualified Code(s): I63.9 - Cerebral infarction, unspecified (3) Acute left-sided weakness: (4) Hypertension: QUALIFIERS: Hypertension type: unspecified Qualified Code(s): I10 - Essential (primary) hypertension (5) Vaping nicotine dependence, non-tobacco product: (6) Acquired polycythemia: (7) ADHD: QUALIFIERS: Attention deficit-hyperactivity disorder type: u nspecified Qualified Code(s): F90.9 - Attention-deficit hyperactivity disorder, unspecified type (8) Migraine headache: QUALIFIERS: Migraine type: unspecified Status migrainosus presence: without status migrainosus Intractability: not intractable Qualified Code(s): G43.909 - Migraine, unspecified, not intractable, without status migrainosus (9) Anxiety: (10) V-tach: (11) Central neuropathic pain: (12) 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 (CVA): PLAN: Plan 1. Continue therapy 2. No changes to the drug regimen today. 3. Will continue to monitor blood pressure closely......... if she has more than occasional blood pressure greater than goal we will need to adjust medications. Current antihypertensives include lisinopril 10 mg twice daily and propranolol 40 mg twice daily. 4. She will follow-up with [facility] at [place] and with Torri Zapata for PCP. Will also need to follow up with Dr. Ge for neurology and with Dr. Del Angel for polycythemia. 5. No changes to the drug regimen today. 6. Recehck a CBC on Monday. Charges/Coding Visit Charges Inpatient E&M: 20217 Subs Hosp L2
[2024-11-21 18:00] VITALS: BP 125/76; PULSE 69; RESP 16; TEMP 37; O2SAT 98
[2024-11-21 21:21] VITALS: BP 124/84; PULSE 70
[2024-11-21 23:24] VITALS: BMI 29.0
[2024-11-22 06:12] VITALS: BP 127/84; PULSE 63; RESP 16; TEMP 36.6; O2SAT 100
[2024-11-22] MEDS: Arthritis Pain Compound 60 CLICK TUBE TOPICAL ×3 (06:16→22:51)
[2024-11-22 06:20] VITALS: BMI 29.0
[2024-11-22] MEDS: buPROPion (XL) 300 MG TABLET.XL PO (07:57)
[2024-11-22] MEDS: Senna/Docusate Sodium 1 Tablet 2 TABLET PO (07:57)
--- NOTE | 2024-11-22 11:43 | PCM.PN.BLA ---
Progress Note Blood pressure past 24 hours has ranged from 125/76 to 127/84. Heart rate is within normal limits. Maintaining appropriate oxygen saturation on room air Making excellent progress with therapy Good appetite Good fluid intake Denies cephalgia Denies neck pain Denies palpitations, chest pain, shortness of breath. Aware that she feels much calmer and better able to focus. Alert, calm, no apparent distress Heart-regular rate and rhythm Lungs-clear to auscultation No calf tenderness No ankle edema Assessment & Plan Assessment/Plan (1) Debility: (2) Stroke: QUALIFIERS: CVA mechanism: unspecified Qualified Code(s): I63.9 - Cerebral infarction, unspecified (3) Acute left-sided weakness: (4) Hypertension: QUALIFIERS: Hypertension type: unspecified Qualified Code(s): I10 - Essential (primary) hypertension (5) Vaping nicotine dependence, non-tobacco product: (6) Acquired polycythemia: (7) ADHD: QUALIFIERS: Attention deficit-hyperactivity disorder type: unspecified Qualified Code(s): F90.9 - Attention-deficit hyperactivity disorder, unspecified type (8) Migraine headache: QUALIFIERS: Migraine type: unspecified Status migrainosus presence: without status migrainosus Intractability: not intractable Qualified Code(s): G43.909 - Migraine, unspecified, not intractable, without status migrainosus (9) Anxiety: (10) V-tach: (11) Central neuropathic pain: (12) 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 (CVA): PLAN: Plan 1. Continue therapy 2. Increase lisinopril to 15 mg twice daily and continue to monitor blood pressure closely. The goal is less than 130/80. 3. CBC and BMP on Monday Visit Charges Inpatient E&M: 25811 Subs Hosp L1
--- NOTE | 2024-11-22 15:00 | NURSING ---
BALANCE SCREWHEAD POLISHER reported to this nurse that the pt told him that she was sleeping and fell out of bed and that she got herself up off the floor and back into bed. Denies hitting head or any injures. No injures noted. VS WNL. Dr Domingo made aware. NNO
[2024-11-22 17:30] VITALS: BP 114/53; PULSE 76; RESP 16; TEMP 36.4; O2SAT 99
[2024-11-22 23:06] VITALS: BP 125/79; PULSE 67; RESP 16; O2SAT 95
[2024-11-23 00:05] VITALS: BMI 29.0
[2024-11-23] MEDS: Arthritis Pain Compound 60 CLICK TUBE TOPICAL ×3 (05:43→21:52)
[2024-11-23 06:00] VITALS: BP 118/78; PULSE 59; RESP 18; TEMP 37.1; O2SAT 98
[2024-11-23 07:56] LABS: Anion Gap 14 (5-15); BUN 9 mg/dL (4-19); BUN/Creat Ratio 14.0 RATIO (10-20); Calcium,Total 9.0 mg/dL (7.6-11.0); Carbon Dioxide 23.1 mmol/L (21.0-32.0); Chloride 101 mmol/L (98-108); Estimated Creatinine Clearance 118.11 ml/min (50-250); Glucose 87 mg/dL (70-99); Potassium 3.8 mmol/L (3.3-5.1)
[2024-11-23] MEDS: buPROPion (XL) 300 MG TABLET.XL PO (08:17)
[2024-11-23 10:52] VITALS: BMI 29.0
[2024-11-23 17:46] VITALS: BP 129/78; PULSE 72; RESP 16; TEMP 36.2; O2SAT 97
--- NOTE | 2024-11-23 17:57 | NURSING ---
pt removed 30day event monitor. Its packed up in the box and being sent back.
[2024-11-23 21:43] VITALS: BP 137/79; PULSE 78; RESP 16; TEMP 36.5; O2SAT 96
[2024-11-24 03:59] VITALS: BMI 29.0
[2024-11-24] MEDS: Arthritis Pain Compound 60 CLICK TUBE TOPICAL ×3 (05:05→20:30)
[2024-11-24 05:39] VITALS: BP 108/67; PULSE 66; RESP 18; TEMP 36; O2SAT 98
[2024-11-24] MEDS: buPROPion (XL) 300 MG TABLET.XL PO (08:42)
[2024-11-24 14:16] VITALS: BMI 29.0
[2024-11-24 17:32] VITALS: BP 136/80; PULSE 64; RESP 16; TEMP 36.7; O2SAT 94
[2024-11-24 20:25] VITALS: BP 125/74; PULSE 65
[2024-11-25 02:25] VITALS: BMI 29.0
[2024-11-25 05:32] VITALS: BP 109/71; PULSE 65; RESP 17; TEMP 36.6; O2SAT 99
[2024-11-25] MEDS: Arthritis Pain Compound 60 CLICK TUBE TOPICAL ×3 (05:33→20:54)
[2024-11-25 07:08] LABS: Hematocrit 39.4 % (37-47); Hemoglobin 12.8 g/dL (12.0-15.0); Mean Corp Hgb Conc 32.5 g/dL (32-36); Mean Corpuscular Volume 93.6 fL (81-99); Mean Platelet Vol. 10.2 fl (6.2-12.0); Platelet Count 329 K/mm3 (150-450); RBC Distribution Width CV 12.4 % (11.6-14.6); RBC Distribution Width SD 42.5 fl (35.1-43.9); Red Blood Count 4.21 M/mm3 (4.2-5.4); White Blood Count 11.0 K/mm3 (4.4-11.0)
[2024-11-25] MEDS: Senna/Docusate Sodium 1 Tablet 2 TABLET PO ×2 (08:11→20:55)
[2024-11-25] MEDS: buPROPion (XL) 300 MG TABLET.XL PO (08:12)
--- NOTE | 2024-11-25 09:53 | PN_ITS ---
Subjective Subjective Afebrile VSS -blood pressure over the past 48 hours has ranged from 108/67 to 137/79. Heart rate is within normal limits. Maintaining appropriate oxygen saturation on RA Oral intake - FOOD good FLUIDS good Discussed with nursing - no problems that need addressed Reviewed the THERAPY notes Medication list reviewed. All lab drawn this morning was personally reviewed. CBC is unremarkable. Hemoglobin is stable at 12.8 and the hematocrit is 39.4. Negative ROS today. sleeping well, eating well, calm, cooperative, more focused and able to follow instructions. Objective Data Objective Data Vital Signs: Vital Signs Temp Pulse Resp BP Pulse Ox O2 Del Method 97.8 F 65 17 109/71 99 Room Air 11/25/24 05:32 11/25/24 05:32 11/25/24 05:32 11/25/24 05:32 11/25/24 05:32 11/25/24 05:32 Oxygen Delivery Method Room Air Weight: 170 lb Body Mass Index (BMI) 29.0 Intake & Output: Intake and Output for Last 24 Hours 11/23/24 11/24/24 11/25/24 23:59 23:59 23:59 Intake Total 940 / 1180 2300 / 2300 200 / 200 Output Total 1450 / 1700 1300 / 1300 300 / 300 Balance -510 / -520 1000 / 1000 -100 / -100 Lab / Micro Data 11/25/24 06:32 11/23/24 06:14 Labs: Laboratory Results - last 24 hr 11/25/24 06:32: WBC 11.0, RBC 4.21, Hgb 12.8, Hct 39.4, MCV 93.6, MCH 30.4, MCHC 32.5, RDW Std Deviation 42.5, RDW Coeff of Maria Teresa 12.4, Plt Count 329, MPV 10.2 Physical Exam Const alert and no apparent distress General Appearance: cooperative Resp normal respiratory effort and clear to auscultation bilaterally Cardio regular rate and regular rhythm Cardio Narrative: No ectopy GI normal to inspection, nondistended, normoactive bowel sounds, soft to palpation and non-tender Extremity no calf tenderness Assessment & Plan Assessment/Plan (1) Debility: (2) Stroke: QUALIFIERS: CVA mechanism: unspecified Qualified Code(s): I63.9 - Cerebral infarction, unspecified (3) Acute left-sided weakness: (4) Hypertension: QUALIFIERS: Hypertension type: unspecified Qualified Code(s): I10 - Essential (primary) hypertension (5) Vaping nicotine dependence, non-tobacco product: (6) Acquired polycythemia: (7) ADHD: QUALIFIERS: Attention deficit-hyperactivity disorder type: u nspecified Qualified Code(s): F90.9 - Attention-deficit hyperactivity disorder, unspecified type (8) Migraine headache: QUALIFIERS: Migraine type: unspecified Status migrainosus presence: without status migrainosus Intractability: not intractable Qualified Code(s): G43.909 - Migraine, unspecified, not intractable, without status migrainosus (9) Anxiety: (10) V-tach: (11) Central neuropathic pain: (12) 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 (CVA): PLAN: Plan 1. Continue therapy 2. No changes to the drug regimen today Charges/Coding Visit Charges Inpatient E&M: 57124 Subs Hosp L1
[2024-11-25 14:12] VITALS: BMI 29.0
[2024-11-25 18:00] VITALS: BP 110/68; PULSE 70; RESP 18; TEMP 36.8; O2SAT 97
[2024-11-25 20:49] VITALS: BP 125/74; PULSE 79; RESP 16
[2024-11-25 20:53] VITALS: BMI 29.0
[2024-11-26 06:00] VITALS: BP 92/65; PULSE 69; RESP 18; TEMP 36.5; O2SAT 97
[2024-11-26] MEDS: Arthritis Pain Compound 60 CLICK TUBE TOPICAL ×3 (06:06→20:22)
[2024-11-26] MEDS: buPROPion (XL) 300 MG TABLET.XL PO (08:54)
[2024-11-26] MEDS: Senna/Docusate Sodium 1 Tablet 2 TABLET PO (08:54)
--- NOTE | 2024-11-26 10:04 | PCM.PROGNOTE ---
Subjective Subjective Afebrile VSS - Maintaining appropriate oxygen saturation on RA Oral intake - FOOD good FLUIDS good Discussed with nursing - no problems that need addressed Reviewed the THERAPY notes Medication list reviewed. Good appetite. Sleeping well at night. Denies cephalgia and also denies neck pain. Continues to progress in therapy. she had some questions about who she is going to follow up with post Dc from rehab and I answered this.......also had questions about what meds she would be on. I reassured her she would receive a list of all the meds and discharge instruction/DCS on the day of DC. D/W SW - plan on DC on 12/06/24. Objective Data Objective Data Vital Signs: Vital Signs Temp Pulse Resp BP Pulse Ox O2 Del Method 97.7 F L 69 18 92/65 97 Room Air 11/26/24 06:00 11/26/24 06:00 11/26/24 06:00 11/26/24 06:00 11/26/24 06:00 11/26/24 06:00 Oxygen Delivery Method Room Air Weight: 170 lb Body Mass Index (BMI) 29.0 Intake & Output: Intake and Output for Last 24 Hours 11/24/24 11/25/24 11/26/24 23:59 23:59 23:59 Intake Total 2300 / 2300 920 / 1020 640 / 640 Output Total 1300 / 1300 800 / 800 300 / 300 Balance 1000 / 1000 120 / 220 340 / 340 Lab / Micro Data 11/25/24 06:32 11/23/24 06:14 Physical Exam Const alert, oriented x3 and no apparent distress Constitutional Narrative: calm. Making good eye contact with me. Appropriate. No flight of ideas. General Appearance: cooperative Resp normal respiratory effort and clear to auscultation bilaterally Resp Narrative: No cough Effort and Inspection: Negative for tachypneic Cardio regular rate, regular rhythm, no murmurs and no gallops GI normal to inspection, nondistended, normoactive bowel sounds, soft to palpation and non-tender Extremity no calf tenderness General Extremity: Negative for edema Skin Rashes: no rashes Assessment & Plan Assessment/Plan (1) Debility: (2) Stroke: QUALIFIERS: CVA mechanism: unspecified Qualified Code(s): I63.9 - Cerebral infarction, unspecified (3) Acute left-sided weakness: (4) Hypertension: QUALIFIERS: Hypertension type: unspecified Qualified Code(s): I10 - Essential (primary) hypertension (5) Vaping nicotine dependence, non-tobacco product: (6) Acquired polycythemia: (7) ADHD: QUALIFIERS: Attention deficit-hyperactivity disorder type: unspecified Qualified Code(s): F90.9 - Attention-deficit hyperactivity disorder, unspecified type (8) Migraine headache: QUALIFIERS: Migraine type: unspecified Status migrainosus presence: without status migrainosus Intractability: not intractable Qualified Code(s): G43.909 - Migraine, unspecified, not intractable, without status migrainosus (9) Anxiety: (10) V-tach: (11) Central neuropathic pain: (12) 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 (CVA): PLAN: Plan 1. Continue therapy 2. Decrease lisinopril to 10 mg daily in the a.m. and continue to monitor frequent blood pressures. Charges/Coding Visit Charges Inpatient E&M: 57701 Subs Hosp L1
[2024-11-26 15:03] VITALS: BMI 29.0
[2024-11-26 17:33] VITALS: BP 118/80; PULSE 72; RESP 16; TEMP 36.6; O2SAT 99
[2024-11-26 21:08] VITALS: BMI 29.0
[2024-11-27 06:00] VITALS: BP 100/61; PULSE 69; RESP 16; TEMP 36.3; O2SAT 98
[2024-11-27] MEDS: Arthritis Pain Compound 60 CLICK TUBE TOPICAL ×3 (06:05→22:20)
[2024-11-27] MEDS: buPROPion (XL) 300 MG TABLET.XL PO (09:15)
[2024-11-27 10:00] VITALS: PULSE 69; RESP 18; O2SAT 98
[2024-11-27 18:00] VITALS: BP 122/78; PULSE 77; RESP 16; TEMP 36.3; O2SAT 93
[2024-11-27 22:15] VITALS: PULSE 69; RESP 16; O2SAT 98; BMI 29.0
[2024-11-28] MEDS: Arthritis Pain Compound 60 CLICK TUBE TOPICAL ×3 (05:34→20:56)
[2024-11-28 06:00] VITALS: BP 105/66; PULSE 61; RESP 16; TEMP 35.9; O2SAT 98
[2024-11-28] MEDS: buPROPion (XL) 300 MG TABLET.XL PO (07:49)
[2024-11-28 08:12] VITALS: BP 125/85; PULSE 66; RESP 18; TEMP 36.6; O2SAT 98
--- NOTE | 2024-11-28 08:27 | PN_ITS ---
Subjective Subjective Elin was seen on TEAM rounds today. Her aunt Gloria participated by phone. All questions were answered to their satisfaction. Afebrile VSS -blood pressure this AM is 125/85. Lisinopril was decreased 2 days ago to 10 mg once a day due to low BP. HR is WNL. Will continue to monitor the BP and if the diastolic is consistently > 80 will add Lisinopril 5 mg at HS. Maintaining appropriate oxygen saturation on RA Oral intake - FOOD good FLUIDS good Discussed with nursing - no problems that need addressed. Sleeping well at night and has good appetite. Reviewed the THERAPY notes - continues to make excellent progress. She ambulated without an assistive device today. Drags the left leg at times. Still with L side neglect. Medication list reviewed. Joslyn denies cephalgia, neck pain, palpitations, chest pain, cough, shortness of breath, nausea/vomiting/abdominal pain, dysuria and calf tenderness. Objective Data Objective Data Vital Signs: Vital Signs Temp Pulse Resp BP Pulse Ox O2 Del Method 97.9 F 66 18 125/85 H 98 Room Air 11/28/24 08:12 11/28/24 08:12 11/28/24 08:12 11/28/24 08:12 11/28/24 08:12 11/28/24 08:12 Oxygen Delivery Method Room Air Weight: 170 lb Body Mass Index (BMI) 29.0 Intake & Output: Intake and Output for Last 24 Hours 11/26/24 11/27/24 11/28/24 23:59 23:59 23:59 Intake Total 1650 / 1650 1130 / 1130 660 / 660 Output Total 1000 / 1000 550 / 550 200 / 200 Balance 650 / 650 580 / 580 460 / 460 Lab / Micro Data 11/25/24 06:32 11/23/24 06:14 Physical Exam Const alert and oriented x3 Resp normal respiratory effort and clear to auscultation bilaterally Resp Narrative: No cough Effort and Inspection: Negative for tachypneic Cardio regular rate, regular rhythm, no murmurs and no gallops GI normal to inspection, nondistended, normoactive bowel sounds, soft to palpation and non-tender Extremity no calf tenderness General Extremity: Negative for edema Skin Rashes: no rashes Assessment & Plan Assessment/Plan (1) Debility: (2) Stroke: QUALIFIERS: CVA mechanism: unspecified Qualified Code(s): I63.9 - Cerebral infarction, unspecified (3) Acute left-sided weakness: (4) Hypertension: QUALIFIERS: Hypertension type: unspecified Qualified Code(s): I10 - Essential (primary) hypertension (5) Vaping nicotine dependence, non-tobacco product: (6) Acquired polycythemia: (7) ADHD: QUALIFIERS: Attention deficit-hyperactivity disorder type: u nspecified Qualified Code(s): F90.9 - Attention-deficit hyperactivity disorder, unspecified type (8) Migraine headache: QUALIFIERS: Intractability: not intractable Migraine type: u nspecified Status migrainosus presence: without status migrainosus Qualified Code(s): G43.909 - Migraine, unspecified, not intractable, without status migrainosus (9) Anxiety: (10) V-tach: (11) Central neuropathic pain: (12) 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 (CVA): PLAN: Plan 1. Continue therapy 2. Planning for discharge home on 12/06/2024. She will have home health care at discharge. Follow-up has been scheduled with [facility] and also with Torri Zapata NP. She will also need to follow-up with Dr. Ge from neurology.......for CVA and for migraines. she will also follow up with Dr. Del Angel for polycythemia 3. she has some anxiety about going home and the change in her stress level. Worried about getting overwhelmed and resorting to old coping mechanisms. We are going to work on setting boundaries next week to prevent getting overwhelmed. 4. CBC and BMP on Monday 5. will have her/family get a BP cuff to monitor the BP's at home....suspect stress level may increase The patient has a mobility limitation that cannot be sufficiently resolved by using a cane or walker. Use of a w/c will improve the participation in ADLs on a regular basis, in the home and will also make longer distances possible when she is attending doctors appts. Charges/Coding Visit Charges Inpatient E&M: 66216 Subs Hosp L2
[2024-11-28 09:13] VITALS: PULSE 66; RESP 18; O2SAT 98
--- NOTE | 2024-11-28 12:51 | CASEMGMT ---
Addendum entered by Tamra Romero 11/28/24 14:56: Pt does not need ST - SW updated [facility]. SOC 12/09. Pt also requested handicap placard. SW faxed order to [facility]. Original Note: Social Work IDT met with patient at bedside, and aunabhishek Castro participated via phone, for Team meeting. Discussed patient's progress in PT/OT/ST/SN/MD. Educated to [facility] with NRD 12/03 and continued stay is not guaranteed with each review. Pt has progressed very well since admission. Pt is beginning to have f/u outpatient appts scheduled the week of 12/09, which pt cannot attend while admitted. IDT and pt agree to set DC date for home for 12/06. Pt confirmed mother will stay with pt at home to assist. SW will notify [facility] for SOC date and [employer] for delivery of transport w/c. SW will refer to driving rehab. No other needs identified for DC. Will remain available. Plan: DC home 12/06, [facility] PT/OT/ST/SN/KATJA, 17 in. transport w/c, driving rehab, counseling Tamra Romero SHOCK ABSORPTION FLOOR LAYER [employer]CROF[employer]HE CAMERA OPERATOR
[2024-11-28 15:13] VITALS: BP 119/69; PULSE 75
--- NOTE | 2024-11-28 15:27 | DCINST_ITS ---
Discharge Instructions DC O2, CPAP, BIPAP needs Home O2 Discharge instructions: No Dressing / Incision Discharge Activity: May Not Drive, May Shower and - (Use a straight cane when walking longer distances and when out in the community with a lot of people around you. ) Weight Bearing Status: Full weight bearing Dressing / Incision Call your doctor if you observe: Fever of 101 or Higher, Shortness of breath, Dizziness, Fainting spells, Swelling in the ankles, Chest pain, Increased palpitations (irregular heartbeat), Calf discomfort, Uncontrolled pain and - (STROKE symptoms: facial droop, slurred speech, inability to get words out, weakness on 1 side of the body and not the other, numbness on 1 side of the body and not the other, inability to maintain your balance sitting or standing, vertigo. ) Follow Up Care When: Appts are listed later in this document. Test Results: Test results from this visit will be discussed in further detail at your follow- up appointment, if applicable. Pending Tests Upon Discharge: none Discharge Plan Admission Admit Date/Time: 11/10/24 13:53 Primary Reason for Your Visit: POST STROKE DEBILITY Attending Provider: Lois Domingo Primary Care Provider: Care Physician,No Primary Instructions Patient Instructions: Journaling for Emotional Wellness, Effects of Stroke on Brain Body, Your Body's Response to Anxiety, 5 Steps for Eating Healthier, Discharge Instructions for Stroke, NAOMI Additional Instructions / Restrictions: 1. You have done a wonderful job with therapy. You have worked hard and I am pleasantly surprised at how much progress you have made. We are all proud (and you should be too) of the effort you have put forth. You have also worked hard on managing ADHD/anxiety/panic attacks/concentration/focus. You ask great questions and you have learned a lot about strokes and how to prevent additional strokes going forward. I know that you will continue to improve/recover from the stroke. The reason you had a stroke is not clear cut. There are likely many things that contributed to the stroke including High blood pressure, smoking, medications you were taking for migraines/ADHD, use of marijuana and alcohol and polycythemia. Polycythemia is a condition where the bone marrow makes too many red blood cells. This makes the blood thick and then it does not flow through small blood vessels very well and can cause occlusion of a blood vessel in the brain leading to a stroke. you had 2 units of blood removed and you have not needed to have additional blood removed while you were on rehab. You will need to follow up with the vp organizational development (blood doctor) after you leave rehab. Smoking/vaping can lead to an increase in red blood cells so I recommend you do not smoke or vape. 2. I think you have a better understanding now of what a healthy lifestyle entails. Eat a low salt diet. Salt cause the body to retain fluid and can lead to an increase in BP and swelling of the ankles. Follow a low fat diet. Cholesterol can collect inside the arteries and lead to narrowing of the artery which can then eventually occlude. One alcoholic drink a couple times a week is not a problem but, drinking more than this can be a problem. I would like to see you be able to control your stress/insomnia/reactions without having to use alcohol or drugs. Practise the grounding techniques I have given you and get good at setting boundaries. Having good boundaries keeps you from getting overwhelmed. I have given you some literature to read to help you understand how stress affects your mind and body. your coping skills/boundary setting are already much better than they were prior to the stroke. 3. Your new primary care provider, Torri Zapata, is a good listener and is very thorough. It is important to see her regularly because preventative healthcare is always better than waiting until you have a serious problem before consulting your PCP. 4. You developed some pain in the left aide while on rehab that was likely coming form the stroke. We have been giving you Gabapentin (med for nerve pain) and Tizanidine (muscle relaxer) at bedtime. You may no longer need these medications. I did not fax these prescriptions to [facility] but, I did write out a prescription. Try going without for a couple days and if the pain in the L leg and arm returns you can go ahead and get the prescriptions filled. 5. You no longer need the eye drops. 6. DO NOT TAKE NURTEC OR A TRIPTAN FOR MIGRAINES. DO NOT TAKE ADDERALL. THESE MEDICATIONS ARE CONTRAINDICATED IN PEOPLE WITH STROKES. 7. IF you have any questions after you leave rehab please do not hesitate to call me. OFFICE: [phone] CELL: [phone] NURSES STATION ON REHAB: [phone] The patient has a mobility limitation that cannot be sufficiently resolved by using a cane or walker. Use of a w/c will improve the participation in ADLs on a regular basis, in the home and in the community. Discharge Orders/Prescriptions Prescriptions: New acetaminophen 325 mg Tablet 650 mg PO Q6H PRN PRN (Reason: Pain Score 1-10) Qty: 0 0RF propranolol 40 mg Tablet 40 mg PO BID Qty: 60 0RF gabapentin 100 mg Capsule 200 mg PO QHS Qty: 30 0RF bupropion HCl 300 mg Tablet Extended Release 24 Hr 300 mg PO DAILY Qty: 30 0RF duloxetine 30 mg Capsule,Delayed Release(Dr/Ec) 30 mg PO DAILY Qty: 30 0RF tizanidine 2 mg Tablet 4 mg PO HS Qty: 60 0RF buspirone 10 mg tablet 10 mg PO TID Qty: 90 0RF Rx Instructions: Take this with breakfast, at 2-3 PM and at bedtime Continued loratadine [Claritin] 10 MG tablet 10 mg PO DAILY PRN PRN (Reason: Allergies) aspirin 81 mg Tablet,Chewable 81 mg PO DAILYCM Qty: 0 0RF atorvastatin 80 mg Tablet 80 mg PO QHS Qty: 30 0RF lisinopril 10 mg Tablet 10 mg PO DAILY Qty: 30 0RF Discontinued dexamethasone sodium phosphate 0.1 % drops 1 drp ophthalmic (eye) 4X/DAY erythromycin 5 mg/gram (0.5 %) ointment 1 applic ophthalmic (eye) QHS metoprolol tartrate 50 mg Tablet 50 mg PO BID Qty: 0 0RF tizanidine [Zanaflex] 2 mg capsule 2 mg PO Q8H PRN (Reason: muscle relaxer) Referrals / Follow Up: [facility] [Other] - 12/09/24 3:30 pm (Arrive at 3:30 pm to complete paperwork. Bring insurance and ID cards. Appointment at 4:00 pm with counselorEva. ) Shanu Del Angel MD [Med Staff - Active Staff] - 12/26/24 11:00 am [facility] Liudmila Prado NP-C [Med Staff - Adv Practice Prof] - 12/11/24 9:30 am Torri Zapata NP-C [[facility]] - 12/17/24 11:00 am Disposition Disposition (needs filled in before D/C Order can be placed): Home Health Service
[2024-11-28 16:45] VITALS: BP 126/54; PULSE 70; RESP 16; TEMP 36.4; O2SAT 99
[2024-11-28 21:00] VITALS: PULSE 70; RESP 16; O2SAT 99; BMI 29.0
[2024-11-29 06:00] VITALS: BP 160/61; PULSE 66; RESP 16; TEMP 35.9
[2024-11-29] MEDS: Arthritis Pain Compound 60 CLICK TUBE TOPICAL ×3 (06:39→21:37)
[2024-11-29] MEDS: buPROPion (XL) 300 MG TABLET.XL PO (08:13)
[2024-11-29 16:37] VITALS: BMI 29.0; BMI 29.7
[2024-11-29 21:35] VITALS: RESP 16; BMI 29.7
[2024-11-30 06:00] VITALS: BP 126/78; PULSE 64; RESP 18; TEMP 36.6; O2SAT 100
[2024-11-30] MEDS: Arthritis Pain Compound 60 CLICK TUBE TOPICAL ×3 (06:26→21:21)
[2024-11-30] MEDS: buPROPion (XL) 300 MG TABLET.XL PO (08:31)
[2024-11-30 08:32] VITALS: BP 125/78; PULSE 70
[2024-11-30 15:06] VITALS: BMI 29.7
[2024-11-30 17:01] VITALS: BP 137/84; PULSE 72; RESP 16; TEMP 36.7; O2SAT 99
--- NOTE | 2024-11-30 19:00 | NURSING ---
Patient states she feels flushed when up to the bathroom. This RN does not see any visible flushing. Vitals stable 143/75, HR 74. Denies dizziness. Will monitor.
[2024-11-30] MEDS: Senna/Docusate Sodium 1 Tablet 2 TABLET PO (21:20)
[2024-11-30 21:26] VITALS: BP 126/72; PULSE 71; RESP 16; TEMP 36.7; O2SAT 100
[2024-12-01 05:00] VITALS: BMI 29.7
[2024-12-01 06:00] VITALS: BP 104/59; PULSE 68; RESP 16; TEMP 36.4; O2SAT 97
[2024-12-01] MEDS: Arthritis Pain Compound 60 CLICK TUBE TOPICAL ×3 (06:01→20:21)
[2024-12-01] MEDS: buPROPion (XL) 300 MG TABLET.XL PO (08:09)
--- NOTE | 2024-12-01 09:21 | PN_ITS ---
Subjective Subjective Afebrile VSS -blood pressure over the past 24 hours has ranged from 104/59 this morning to 137/84. Heart rate is within normal limits. Maintaining appropriate oxygen saturation on RA Oral intake - FOOD good FLUIDS good Discussed with nursing - no problems that need addressed Reviewed the THERAPY notes Medication list reviewed. Elin denies lightheadedness, vertigo, CP, SOB at rest, SOB with exertion, cough, nausea, vomiting, abd pain, diarrhea, constipation, dysuria, calf pain and ankle swelling. We discussed triggers for stress and possible coping mechanisms. Objective Data Objective Data Vital Signs: Vital Signs Temp Pulse Resp BP Pulse Ox O2 Del Method 97.6 F L 68 16 104/59 L 97 Room Air 12/01/24 06:00 12/01/24 06:00 12/01/24 06:00 12/01/24 06:00 12/01/24 06:00 12/01/24 06:00 Oxygen Delivery Method Room Air Weight: 174 lb 2.643 oz Body Mass Index (BMI) 29.7 Intake & Output: Intake and Output for Last 24 Hours 11/29/24 11/30/24 12/01/24 23:59 23:59 23:59 Intake Total 402 / 402 2110 / 2110 110 / 110 Output Total 800 / 800 950 / 950 Balance -398 / -398 1160 / 1160 110 / 110 Lab / Micro Data 12/03/24 05:55 12/03/24 05:55 Physical Exam Const alert and oriented x3 Resp normal respiratory effort and clear to auscultation bilaterally Cardio regular rate, regular rhythm, no murmurs and no gallops GI normal to inspection, nondistended, normoactive bowel sounds, soft to palpation and non-tender Extremity General Extremity: Negative for edema Skin Rashes: no rashes Assessment & Plan Assessment/Plan (1) Debility: (2) Stroke: QUALIFIERS: CVA mechanism: unspecified Qualified Code(s): I63.9 - Cerebral infarction, unspecified (3) Acute left-sided weakness: (4) Hypertension: QUALIFIERS: Hypertension type: unspecified Qualified Code(s): I10 - Essential (primary) hypertension (5) Vaping nicotine dependence, non-tobacco product: (6) Acquired polycythemia: (7) ADHD: QUALIFIERS: Attention deficit-hyperactivity disorder type: u nspecified Qualified Code(s): F90.9 - Attention-deficit hyperactivity disorder, unspecified type (8) Migraine headache: QUALIFIERS: Migraine type: unspecified Status migrainosus presence: without status migrainosus Intractability: not intractable Qualified Code(s): G43.909 - Migraine, unspecified, not intractable, without status migrainosus (9) Anxiety: (10) V-tach: (11) Central neuropathic pain: (12) 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 (CVA): PLAN: Plan 1. Continue therapy 2. No changes to the medication regimen today Charges/Coding Visit Charges Inpatient E&M: 58466 Subs Hosp L1
[2024-12-01 18:00] VITALS: BP 119/76; PULSE 66; RESP 18; TEMP 36.8; O2SAT 99
[2024-12-01 20:15] VITALS: PULSE 66; RESP 18; O2SAT 99; BMI 29.7
[2024-12-02] MEDS: Arthritis Pain Compound 60 CLICK TUBE TOPICAL ×3 (04:35→20:21)
[2024-12-02 06:00] VITALS: BP 135/87; PULSE 63; RESP 16; TEMP 36.7; O2SAT 100
[2024-12-02] MEDS: buPROPion (XL) 300 MG TABLET.XL PO (08:52)
[2024-12-02 14:21] VITALS: BMI 29.7
[2024-12-02 17:33] VITALS: BP 123/74; PULSE 69; RESP 16; TEMP 36.7; O2SAT 98
[2024-12-02] MEDS: Senna/Docusate Sodium 1 Tablet 2 TABLET PO (20:24)
[2024-12-02 20:35] VITALS: BMI 29.7
[2024-12-02 22:00] VITALS: RESP 16; O2SAT 98
[2024-12-03 06:00] VITALS: BP 133/97; PULSE 69; RESP 17; TEMP 36.5; O2SAT 96
[2024-12-03] MEDS: Arthritis Pain Compound 60 CLICK TUBE TOPICAL ×2 (06:55→13:47)
[2024-12-03] MEDS: buPROPion (XL) 300 MG TABLET.XL PO (07:47)
[2024-12-03 07:48] LABS: Hematocrit 39.2 % (37-47); Hemoglobin 12.9 g/dL (12.0-15.0); Mean Corp Hgb Conc 32.9 g/dL (32-36); Mean Corpuscular Volume 93.8 fL (81-99); Mean Platelet Vol. 10.0 fl (6.2-12.0); Platelet Count 243 K/mm3 (150-450); RBC Distribution Width CV 12.4 % (11.6-14.6); RBC Distribution Width SD 42.5 fl (35.1-43.9); Red Blood Count 4.18 M/mm3 (4.2-5.4); White Blood Count 8.1 K/mm3 (4.4-11.0)
[2024-12-03 08:40] LABS: Anion Gap 9 (5-15); BUN 9 mg/dL (4-19); BUN/Creat Ratio 13.8 RATIO (10-20); Calcium,Total 8.9 mg/dL (7.6-11.0); Carbon Dioxide 23.5 mmol/L (21.0-32.0); Chloride 105 mmol/L (98-108); Estimated Creatinine Clearance 117.64 ml/min (50-250); Glucose 107 mg/dL (70-99); Potassium 3.9 mmol/L (3.3-5.1)
--- NOTE | 2024-12-03 09:34 | PN_ITS ---
Subjective Subjective Afebrile VSS - Maintaining appropriate oxygen saturation on RA Oral intake - FOOD good FLUIDS good Discussed with nursing - no problems that need addressed Reviewed the THERAPY notes Medication list reviewed. All lab from this morning was personally reviewed. CBC is unremarkable. Hemoglobin is stable at 12.9 and the hematocrit is stable at 39.2. Sodium is 137 and the potassium is 3.9. BUN is 9 and the creatinine is stable at 0.64. Joslyn denies cephalgia, neck pain, chest pain, palpitations, shortness of breath, dysuria and calf pain. She is sleeping well at night and has a good appetite. Objective Data Objective Data Vital Signs: Vital Signs Temp Pulse Resp BP Pulse Ox O2 Del Method 97.7 F L 69 17 133/97 H 96 Room Air 12/03/24 06:00 12/03/24 06:00 12/03/24 06:00 12/03/24 06:00 12/03/24 06:00 12/03/24 06:00 Oxygen Delivery Method Room Air Weight: 174 lb 2.643 oz Body Mass Index (BMI) 29.7 Intake & Output: Intake and Output for Last 24 Hours 12/01/24 12/02/24 12/03/24 23:59 23:59 23:59 Intake Total 710 / 710 1610 / 1610 Output Total 600 / 600 1250 / 1250 250 / 250 Balance 110 / 110 360 / 360 -250 / -250 Lab / Micro Data 12/03/24 05:55 12/03/24 05:55 Labs: Laboratory Results - last 24 hr 12/03/24 05:55: WBC 8.1, RBC 4.18 L, Hgb 12.9, Hct 39.2, MCV 93.8, MCH 30.9, MCHC 32.9, RDW Std Deviation 42.5, RDW Coeff of Maria Teresa 12.4, Plt Count 243, MPV 10.0, Sodium 137, Potassium 3.9, Chloride 105, Carbon Dioxide 23.5, Anion Gap 9, BUN 9, Creatinine 0.64 L, Estim Creat Clear Calc 117.64, Est GFR (MDRD) Non-Af 114, BUN/Creatinine Ratio 13.8, Glucose 107 H, Calcium 8.9 Physical Exam Const alert and oriented x3 Resp normal respiratory effort and clear to auscultation bilaterally Cardio regular rate, regular rhythm, no murmurs and no gallops GI normal to inspection, nondistended, normoactive bowel sounds, soft to palpation and non-tender Extremity General Extremity: Negative for edema Skin Rashes: no rashes Neuro Neuro Narrative: She is walking without a device but still has some loss of balance. She continues to be impulsive and moves too quickly at times causing her to lose her balance. She tries to turn around and talk with someone while ambulating and this causes a loss of balance. Assessment & Plan Assessment/Plan (1) Debility: (2) Stroke: QUALIFIERS: CVA mechanism: unspecified Qualified Code(s): I63.9 - Cerebral infarction, unspecified (3) Acute left-sided weakness: (4) Hypertension: QUALIFIERS: Hypertension type: unspecified Qualified Code(s): I10 - Essential (primary) hypertension (5) Vaping nicotine dependence, non-tobacco product: (6) Acquired polycythemia: (7) ADHD: QUALIFIERS: Attention deficit-hyperactivity disorder type: u nspecified Qualified Code(s): F90.9 - Attention-deficit hyperactivity disorder, unspecified type (8) Migraine headache: QUALIFIERS: Migraine type: unspecified Status migrainosus presence: without status migrainosus Intractability: not intractable Qualified Code(s): G43.909 - Migraine, unspecified, not intractable, without status migrainosus (9) Anxiety: (10) V-tach: (11) Central neuropathic pain: (12) 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 (CVA): PLAN: Plan 1. Continue therapy 2. Elin wanted to see her MRI and I showed her the images and showed her where the strokes were. I answered her questions to her satisfaction. 3. We spent some time today talking about grounding techniques and she was given a handout. She is compiling a list of ground rules for others to adhere to at home......eg. Do not touch her stuff without asking, do not change the settings on devices without talking with Elin, respect her space.....when she goes into her bedroom do not enter without knocking, when she says she needs a moment.......give her space to process. We talked about not being reactionary and allowing herself 24 hours to process a stressful situation before commenting/reacting. Stressed the need to be proactive, not reactive. Talked about how to de-escalate a situation. She was very attentive. 4. Hematocrit has been consistently < 40. The polycythema may have been due to vaping? Charges/Coding Visit Charges Inpatient E&M: 68838 Subs Hosp L1
[2024-12-03 13:03] VITALS: BMI 29.7
[2024-12-03 22:00] VITALS: RESP 16; O2SAT 98
[2024-12-03 23:45] VITALS: BP 129/72; PULSE 72; RESP 16; TEMP 36.8; O2SAT 98
[2024-12-04] MEDS: Arthritis Pain Compound 60 CLICK TUBE TOPICAL ×4 (00:23→20:55)
[2024-12-04 04:26] VITALS: BMI 29.7
[2024-12-04 06:00] VITALS: BP 116/60; PULSE 63; RESP 16; TEMP 36.6; O2SAT 98
--- NOTE | 2024-12-04 07:51 | CASEMGMT ---
Social Work Insurance issued LCD 12/04, DC 12/05 - instead of DC 12/06. SW phoned pt to notify of new DC date to adjust transportation. Pt agreeable. SW notified IDT and [facility]. 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
[2024-12-04] MEDS: buPROPion (XL) 300 MG TABLET.XL PO (08:11)
[2024-12-04 14:47] VITALS: BMI 29.7
[2024-12-04 17:28] VITALS: BP 97/56; PULSE 71; RESP 18; TEMP 36.6; O2SAT 98
[2024-12-04 19:58] VITALS: BMI 29.7
[2024-12-04 22:00] VITALS: O2SAT 98
[2024-12-05 06:00] VITALS: BP 119/78; PULSE 62; RESP 16; TEMP 36.7; O2SAT 97
[2024-12-05] MEDS: buPROPion (XL) 300 MG TABLET.XL PO (08:15)
--- NOTE | 2024-12-05 10:11 | DS.PCM_ITS ---
Providers Date of Admission: 11/10/24 Date of Discharge: 12/05/24 Primary Care Physician: No Primary Care Phys She saw Dr. Del Angel for polycythemia while in the hospital and was phlebotomized for 2 units of packed red blood cells. Reason For Visit: STROKE Diagnosis Discharge Diagnosis (1) Debility: Status: Acute Code(s): R53.81 - Other malaise (2) Stroke: Status: Acute Code(s): I63.9 - Cerebral infarction, unspecified Qualifiers: CVA mechanism: unspecified Qualified Code(s): I63.9 - Cerebral infarction, unspecified Plan: Ischemic with no hemorrhagic conversion. (3) Acute left-sided weakness: Status: Acute Code(s): R53.1 - Weakness Plan: Much improved at the time of DC from rehab and she is now ambulating without an assistive device. She does use a cane for longer distances. (4) Hypertension: Status: Chronic Code(s): I10 - Essential (primary) hypertension Qualifiers: Hypertension type: unspecified Qualified Code(s): I10 - Essential (primary) hypertension Plan: Well-controlled at the time of discharge from rehab on propranolol 40 mg twice daily and lisinopril 10 mg daily. Propanolol was chosen due to hx of migraines. (5) Vaping nicotine dependence, non-tobacco product: Status: Resolved Code(s): F17.200 - Nicotine dependence, unspecified, uncomplicated (6) Acquired polycythemia: Status: Chronic Code(s): D75.1 - Secondary polycythemia (7) ADHD: Status: Chronic Code(s): F90.9 - Attention-deficit hyperactivity disorder, unspecified type Qualifiers: Attention deficit-hyperactivity disorder type: unspecified Qualified Code(s): F90.9 - Attention-deficit hyperactivity disorder, unspecified type Plan: Adderall was discontinued and she is now taking Wellbutrin and Duloxetine to control ADHD. At the time of DC from rehab she is sleeping well, has a good appetite and is much better able to focus/concentrate and problem solve. She can still be impulsive......not sure if this is due to the stroke or to ADHD or both. (8) Migraine headache: Status: Chronic Code(s): G43.909 - Migraine, unspecified, not intractable, without status migrainosus Qualifiers: Intractability: not intractable Migraine type: unspecified Status migrainosus presence: without status migrainosus Qualified Code(s): G43.909 - Migraine, unspecified, not intractable, without status migrainosus Plan: Trigger point injections were done to the R posterior neck/trapezius muscle and she has not complained of BRIGGS or neck pain after a few days on rehab. Adderall and polycythemia may both have contributed to BRIGGS's. Due to the stroke she is no longer a candidate for Adderall/amphetamines, nurtec or triptans. (9) Anxiety: Status: Chronic Code(s): F41.9 - Anxiety disorder, unspecified (10) V-tach: Status: Resolved Code(s): I47.20 - Ventricular tachycardia, unspecified (11) Central neuropathic pain: Status: Acute Code(s): M79.2 - Neuralgia and neuritis, unspecified Plan: Treated with Gabapentin and Tizanidine at ......may no longer need this. I recommended to her that she try not using these for a few days after DC and if the pain recurs she can get the written prescriptions filled. (12) 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 (CVA): Status: Chronic Code(s): I69.398 - Other sequelae of cerebral infarction; F06.31 - Mood disorder due to known physiological condition with depressive features Plan: Good appetite and sleeping well at DC from rehab. She is on Wellbutrin for ADHD and duloxetine for anxiety/depression. Plan 1. Continue therapy 2. Elin wanted to see her MRI and I showed her the images and showed her where the strokes were. I answered her questions to her satisfaction. 3. We spent some time today talking about grounding techniques and she was given a handout. She is compiling a list of ground rules for others to adhere to at home......eg. Do not touch her stuff without asking, do not change the settings on devices without talking with Elin, respect her space.....when she goes into her bedroom do not enter without knocking, when she says she needs a moment.......give her space to process. We talked about not being reactionary and allowing herself 24 hours to process a stressful situation before commenting/reacting. Stressed the need to be proactive, not reactive. Talked about how to de-escalate a situation. She was very attentive. 4. Hematocrit has been consistently < 40. The polycythema may have been due to vaping? Medications at Discharge Home Medications loratadine 10 mg tablet (Claritin) 10 mg PO DAILY PRN PRN Allergies 01/25/18 aspirin 81 mg chewable tablet 81 mg PO DAILYCM heart health #0 tabs 11/01/24 acetaminophen 325 mg tablet 650 mg (2 x 325 mg) PO Q6H PRN PRN Pain Score 1-10 #0 tabs 12/05/24 atorvastatin 80 mg tablet 80 mg PO QHS cholesterol #30 tabs 12/05/24 bupropion HCl 300 mg 24 hr tablet, extended release 300 mg PO DAILY #30 tabs 12/05/24 buspirone 10 mg tablet 10 mg PO TID #90 tabs 12/05/24 duloxetine 30 mg capsule,delayed release 30 mg PO DAILY #30 caps 12/05/24 gabapentin 100 mg capsule 200 mg (2 x 100 mg) PO QHS #30 caps 12/05/24 lisinopril 10 mg tablet 10 mg PO DAILY blood pressure #30 tabs 12/05/24 propranolol 40 mg tablet 40 mg PO BID #60 tabs 12/05/24 tizanidine 2 mg tablet 4 mg (2 x 2 mg) PO HS #60 tabs 12/05/24 Physical Exam Const alert, oriented x3 and no apparent distress Constitutional Narrative: She is drowsy and c/o feeling very tired. She arouses easily and is able to stay awake to converse with me. General Appearance: cooperative, comfortable and well kempt HEENT normocephalic, head/scalp atraumatic and hearing grossly normal bilaterally Eyes PERRL, EOMs intact bilaterally, conjunctivae normal and no scleral icterus Eyes Narrative: No discharge from the eyes. No mattering of the eye shows. General Eye: normal appearance of both eyes and normal light reflex Neck No nuchal rigidity, supple, No nodes and no carotid bruits General: trachea midline Chest Chest: symmetrical chest wall rise Resp normal respiratory effort, normal air movement and clear to auscultation bilaterally Effort and Inspection: able to speak in complete sentences Cardio regular rate, regular rhythm, S1 normal heart sound, S2 normal heart sound, no murmurs, no rub and no gallops Cardio Narrative: No ectopy GI normal to inspection, nondistended, normoactive bowel sounds, soft to palpation and non-tender GI Narrative: No guarding with palpation. no CVA tenderness Narrative: She came to us with a Smith catheter in place secondary to urinary retention. Back/Spine straight leg raise negative bilaterally Extremity no calf tenderness and no pedal edema Skin General Skin Exam: no breakdown Rashes: no rashes Neuro Neuro Narrative: Alert and oriented x 3. Cranial nerves II through XII are grossly intact. No visual field cuts. No nystagmus. Tongue protrudes on the midline. Palate elevates symmetrically. Intact sensation in the face. Facial droop has completely resolved. No dysarthria. No drift with the right upper extremity or left upper extremity. No pronator drift. Decreased sensation in the left upper extremity when compared to the right. No tremors. No ataxia with the upper extremities. There is mild drift with the left lower extremity with elevation but it does not hit the bed. No ataxia in the left lower extremity. Decreased sensation in the left lower extremity when compared to the right. She has dorsiflexion and plantarflexion of the left foot but it is weaker than the right. No extinction. Psych cooperative Psych Narrative: Calm. Able to focus. No flight of ideas. Sleeping well at night and god appetite. able to stay on task much better than at admission. Appearance: appropriate and well kempt Activity / Motor Behavior: appropriate eye contact Speech: normal speech, No pressured and No slurred Mood & Affect: euthymic mood Thought Process: No flight of ideas, No loose associations, No tangential and No racing thoughts Thought Content: normal thought content and No suicidality Weight / BMI Weight Weight: 174 lb 2.643 oz Body Mass Index (BMI) 29.7 ABG / Lab / Microbiology Data 12/03/24 05:55 12/03/24 05:55 Indicators for Scoring Admitted with or Primary Diagnosis of CVA/Stroke: Yes Hx of CVA/Stroke: Yes Modified Woodruff Score MRS Score at time of Evaluation: 3-Moderate disability NIHSS NIHSS 1a. Level of Consciousness: 0 - Alert; keenly responsive 1b. LOC Questions: 0 - Answers BOTH questions correctly 1c. LOC Commands: 0 - Performs BOTH tasks correctly 2. Best Gaze: 0 - Normal 3. Visual: 0 - No visual loss 4. Facial Palsy: 0 - Normal symmetrical movements 5a. Left Arm: 0 - No drift; arm holds 90 (or 45) degrees for full 10 seconds 5b. Right Arm: 0 - No drift; arm holds 90 (or 45) degrees for full 10 seconds 6a. Left Le - Drift; leg falls by the end of 5-seconds, but does not hit bed 6b. Right Le - No drift; leg holds 30-degree position for full 5 seconds 7. Limb Ataxia: 0 - Absent 8. Sensory: 1 - Sdph-ri-vhyegzue sensory loss; (Mild to moderate sensory loss in the left lower extremity and left upper extremity. Sensation in the face is normal now but she had decreased sensation at admission.) 9. Best Language: 0 - No aphasia; normal 10. Dysarthria: 0 - Normal 11. Extinction and Inattention: 0 - No abnormality Total: 2 (NIHSS score at admission to rehab was 11.) Stroke Questions Stroke Team Activated: No D/C Instructions Diet Diet Order/Speech Therapy: INPATIENT Hospital Diet / Speech Therapy Order(s) 11/11/24 13:10 Diet: Cardiac: Calorie-Controlled How many daily calories?: 1800 calorie Discharge order: Continue INPATIENT Hospital Diet / Speech Therapy Orders: No Discharge Diet: Low fat / Low cholesterol (Also low salt. Salt can increase BP. ) Weight Bearing Status: Full weight bearing Call your doctor if you observe: Fever of 101 or Higher, Shortness of breath, Dizziness, Fainting spells, Swelling in the ankles, Chest pain, Increased palpitations (irregular heartbeat), Calf discomfort, Uncontrolled pain and - (STROKE symptoms: facial droop, slurred speech, inability to get words out, weakness on 1 side of the body and not the other, numbness on 1 side of the body and not the other, inability to maintain your balance sitting or standing, vertigo. ) DC O2, CPAP, BIPAP Needs RN Home O2 qualification: 2 No Data to Display Home O2 Discharge instructions: No Pending Tests Upon Discharge: none When: Appts are listed later in this document. Meaningful Use Info Meaningful Use Meaningful Use Diagnoses (Choose all that apply): Ischemic CVA CVA Therapy Assessed for PT,OT and/or ST?: Yes Ischemic Stroke Antithrombotic order at d/c?: Yes Dx of Atrial fib/flutter?: No Anticoagulant at discharge?: No Reason anticoagulant not ordered: Treatment not Indicated Statin Dosing Therapy Reference: STATIN DOSE THERAPY REFERENCE: * Patients > 75 years receive moderate or high dose statin therapy. * Patients 75 years or YOUNGER should receive HIGH intensity statin dose unless contraindicated. You will be required to document reason for non-treatment if statin daily dose does not meet guidelines. HIGH DOSE STATIN THERAPY DAILY Atorvastatin > than or = to 40 mg Rosuvastatin > than or = to 20 mg Amlodipine + Atorvastatin > than or = to 2.5/40 mg Ezetimibe + Simvastatin 10/80 mg Simvastatin 80mg Statins at discharge?: Yes If patient is 75 or younger, pt will be discharged on HIGH intensity statin.: Y es Primary Dx Acute Ischemic CVA?: Yes IV thrombolytic ordered during stay?: No Reason IV thrombolytic not ordered: Procedure not Indicated Discharge Plan Admission Admit Date/Time: 11/10/24 13:53 Primary Reason for Your Visit: POST STROKE DEBILITY Attending Provider: Lois Domingo Primary Care Provider: Care Physician,No Primary Instructions Patient Instructions: Journaling for Emotional Wellness, Effects of Stroke on Brain Body, Your Body's Response to Anxiety, 5 Steps for Eating Healthier, Discharge Instructions for Stroke, NAOMI Additional Instructions / Restrictions: 1. You have done a wonderful job with therapy. You have worked hard and I am pleasantly surprised at how much progress you have made. We are all proud (and you should be too) of the effort you have put forth. You have also worked hard on managing ADHD/anxiety/panic attacks/concentration/focus. You ask great questions and you have learned a lot about strokes and how to prevent additional strokes going forward. I know that you will continue to improve/recover from the stroke. The reason you had a stroke is not clear cut. There are likely many things that contributed to the stroke including High blood pressure, smoking, medications you were taking for migraines/ADHD, use of marijuana and alcohol and polycythemia. Polycythemia is a condition where the bone marrow makes too many red blood cells. This makes the blood thick and then it does not flow through small blood vessels very well and can cause occlusion of a blood vessel in the brain leading to a stroke. you had 2 units of blood removed and you have not needed to have additional blood removed while you were on rehab. You will need to follow up with the hot dog vendor (blood doctor) after you leave rehab. Smoking/vaping can lead to an increase in red blood cells so I recommend you do not smoke or vape. 2. I think you have a better understanding now of what a healthy lifestyle entails. Eat a low salt diet. Salt cause the body to retain fluid and can lead to an increase in BP and swelling of the ankles. Follow a low fat diet. Cholesterol can collect inside the arteries and lead to narrowing of the artery which can then eventually occlude. One alcoholic drink a couple times a week is not a problem but, drinking more than this can be a problem. I would like to see you be able to control your stress/insomnia/reactions without having to use alcohol or drugs. Practise the grounding techniques I have given you and get good at setting boundaries. Having good boundaries keeps you from getting overwhelmed. I have given you some literature to read to help you understand how stress affects your mind and body. your coping skills/boundary setting are already much better than they were prior to the stroke. 3. Your new primary care provider, Torri Zapata, is a good listener and is very thorough. It is important to see her regularly because preventative healthcare is always better than waiting until you have a serious problem before consulting your PCP. 4. You developed some pain in the left aide while on rehab that was likely coming form the stroke. We have been giving you Gabapentin (med for nerve pain) and Tizanidine (muscle relaxer) at bedtime. You may no longer need these medications. I did not fax these prescriptions to [facility] but, I did write out a prescription. Try going without for a couple days and if the pain in the L leg and arm returns you can go ahead and get the prescriptions filled. 5. You no longer need the eye drops. 6. DO NOT TAKE NURTEC OR A TRIPTAN FOR MIGRAINES. DO NOT TAKE ADDERALL. THESE MEDICATIONS ARE CONTRAINDICATED IN PEOPLE WITH STROKES. 7. IF you have any questions after you leave rehab please do not hesitate to call me. OFFICE: [phone] CELL: [phone] NURSES STATION ON REHAB: [phone] The patient has a mobility limitation that cannot be sufficiently resolved by using a cane or walker. Use of a w/c will improve the participation in ADLs on a regular basis, in the home and in the community. Discharge Orders/Prescriptions Prescriptions: New acetaminophen 325 mg Tablet 650 mg PO Q6H PRN PRN (Reason: Pain Score 1-10) Qty: 0 0RF propranolol 40 mg Tablet 40 mg PO BID Qty: 60 0RF gabapentin 100 mg Capsule 200 mg PO QHS Qty: 30 0RF bupropion HCl 300 mg Tablet Extended Release 24 Hr 300 mg PO DAILY Qty: 30 0RF duloxetine 30 mg Capsule,Delayed Release(Dr/Ec) 30 mg PO DAILY Qty: 30 0RF tizanidine 2 mg Tablet 4 mg PO HS Qty: 60 0RF buspirone 10 mg tablet 10 mg PO TID Qty: 90 0RF Rx Instructions: Take this with breakfast, at 2-3 PM and at bedtime Continued loratadine [Claritin] 10 MG tablet 10 mg PO DAILY PRN PRN (Reason: Allergies) aspirin 81 mg Tablet,Chewable 81 mg PO DAILYCM Qty: 0 0RF atorvastatin 80 mg Tablet 80 mg PO QHS Qty: 30 0RF lisinopril 10 mg Tablet 10 mg PO DAILY Qty: 30 0RF Discontinued dexamethasone sodium phosphate 0.1 % drops 1 drp ophthalmic (eye) 4X/DAY erythromycin 5 mg/gram (0.5 %) ointment 1 applic ophthalmic (eye) QHS metoprolol tartrate 50 mg Tablet 50 mg PO BID Qty: 0 0RF tizanidine [Zanaflex] 2 mg capsule 2 mg PO Q8H PRN (Reason: muscle relaxer) Referrals / Follow Up: [facility] [Other] - 12/09/24 3:30 pm (Arrive at 3:30 pm to complete paperwork. Bring insurance and ID cards. Appointment at 4:00 pm with counselorEva. ) Shaun Del Angel MD [Med Staff - Active Staff] - 12/30/24 3:00 pm (building behind [facility] ([facility] Liudmila Prado NP-C [Med Staff - Adv Practice Prof] - 12/11/24 9:30 am Torri Zapata NP-C [[facility]] - 12/17/24 11:00 am Disposition Disposition (needs filled in before D/C Order can be placed): Home Health Service Charges/Coding Visit Charges Inpatient E&M: 44180 Disch Hosp >30min Hospital Course RU Operations None Procedures - (Phlebotomized for 2 units of packed red blood cells for HCTof 58.5. Hematocrit at discharge from rehab has ranged from 35.7 on 11/10/2019 5-39.2 on 12/03/2024.) Summary of Care Provided Minutes Spent on Discharge: 55 Hospital Course: Elin is a 39-year-old female who presented to the emergency department at [facility] on 10/30/2024 complaining of left arm weakness, left leg weakness and slurred speech. Hemoglobin at admission was 18.5 and lab was not consistent with dehydration. Urine drug screen at admission was positive for amphetamine (she had been taking prescribed Adderall for ADHD) and cannabinoids. CT brain showed a left frontal lacunar infarct. CTA of the head and neck was negative for large vessel occlusion, high-grade stenosis and aneurysm. She was not a candidate for TNK due to time. She was admitted to the hospitalist service. MRI showed a large area of restricted diffusion in the right frontal and superior parietal precentral cortex and superior periventricular region measuring 9 cm x 3 cm x 4.6 cm with associated increased T2 signal and decreased T1 signal components. This was consistent with a subacute infarct. There was a 0.6 cm focus of restricted diffusion in the left superior precentral cortex which appeared acute. There was an old 0.8 cm lacunar infarct in the deep white matter on the left. Transesophageal echo showed normal left ventricular size with an ejection fraction of 60%. Bubble contrast study was negative for monyd-to-sjzf interatrial shunt and no thrombus was detected in the left atrial appendage. She was seen by neurology and they recommended aspirin 81 mg daily and atorvastatin 80 mg daily. She was instructed to stop vaping. Blood Pressures have been quite elevated at times and she is quite anxious. She had been taking dextroamphetamine/amphetamine 30 mg twice daily for ADD. She was transferred to the acute inpt rehab unit at [facility] on 11/01/24 for 3 hours of therapy daily to restore function, independence at or near her level prior to admission to the hospital. On 11/04/24 she c/o CP and there were EKG changes. She was transferred to PCU and was seen by Cardiology. Cardiac cath was performed and showed normal coronary arteries with normal left ventricular size, wall motion and systolic function. She was polycythemic and was seen by Dr. Del Angel from Heme/onc. JAK2 V617F was negative. CT scan of the abd and pelvis with contrast was unremarkable showing no hepatic or renal tumors. Erythropoietin level was unremarkable at 2.1. Phlebotomy was suggested to keep HCT at 45 or less. She underwent phlebotomy X 2 and the HCT on 11/08/24 was 39.2. She was transferred back to inpt rehab for 3 hours of therapy daily on 11/10/24 to restore function/independence. Adderall, Nurtec and triptans were discontinued at admission to rehab due to CVA. She was started on Wellbutrin for ADHD sx. She c/o R side migraine (no aura) and right posterior neck/trapezius pain/spasm. Bupivacaine and 10 mg of Decadron was used to inject trigger points involving the R neck and upper trapezius muscle on the R. She was ordered tizanidine for spasm. After 48 hours she had no BRIGGS and no neck pain and these things have not recurred since the injection. Elin was quite anxious at presentation to rehab. She also admitted to having some feelings of depression. She was started on Duloxetine. Anxiety/depression is much better at discharge. She has no suicidal or homicidal ideation. She is better able to focus and attend to what is being said to her and what is being asked of her. She is still somewhat impulsive but this could be due to ADHD or the stroke. While on rehab she developed some neuropathic type pain in the left arm and left lower extremity and was started on gabapentin. We were able to taper the gabapentin to 200 mg at at bedtime prior to discharge. At the time of discharge I did not send a prescription to the pharmacy for gabapentin or tizanidine at bedtime. She understands that she should try a couple days without these medications but if the pain/spasms recur then she has a written prescription for both tizanidine and gabapentin which she can get filled. Elin did amazingly well on rehab. The NIHSS score has decreased from 11 at admission to rehab to 2 at discharge. Her modified Quinn score is now 3, down from 4 at admission. She worked hard and at the time of DC she is ambulating without an assistive device, except when ambulating longer distances. She no longer has flight of ideas and she is asking good questions. We have worked on grounding techniques and boundaries while she has been on rehab. She knows some good techniques for dealing with a stressful situation without becoming overwhelmed and decompensating. She has written down some boundaries that she is going to share with her family. 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 DME includes a transfer wheelchair to facilitate traveling long distances in the community for doctors appts and such. A referral was made by the SW to the drivers rehab program at [facility] and she will go there to be tested when she and her therapists feel she is safe to drive again. She has follow up appts scheduled with Torri Zapata [facility]/SERVICE SUPPORT REPRESENTATIVE for primary care, with Liudmila Prado for neurology, with [facility] for counselling and with Dr. Del Angel for polycythemia.
[2024-12-05 10:12] VITALS: BMI 29.7
--- NOTE | 2024-12-05 12:25 | CASEMGMT ---
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 Tamra Romero [employer] SERVICE TECHNICIAN
== END 2024-12-05 13:05 | disposition home health service (06) | DRG 57 ==
PROVIDERS: Admitting Provider Internal Medicine; Visit Provider Internal Medicine
DX: I69.354 Hemiplegia and hemiparesis following cerebral infarction affecting left non-dominant side (principal); I69.392 Facial weakness following cerebral infarction; I10 Essential (primary) hypertension; F32.A Depression, unspecified; I69.398 Other sequelae of cerebral infarction; D75.1 Secondary polycythemia; M54.2 Cervicalgia; G43.901 Migraine, unspecified, not intractable, with status migrainosus; G62.9 Polyneuropathy, unspecified; U07.0 Vaping-related disorder; F17.290 Nicotine dependence, other tobacco product, uncomplicated; G47.00 Insomnia, unspecified; F90.9 Attention-deficit hyperactivity disorder, unspecified type; F41.0 Panic disorder [episodic paroxysmal anxiety]; R79.89 Other specified abnormal findings of blood chemistry; Z79.82 Long term (current) use of aspirin; Z79.899 Other long term (current) drug therapy
CPT/HCPCS: 36415; 80048; 80053; 80061; 83735; 84100; 85025; 85027; 92507; 92523; 94668; 97110; 97112; 97116; 97129; 97130; 97140; 97162; 97167; 97530; 97535; 97802

== ENCOUNTER → 2024-12-24 | Outpatient (CLI) | payer OTHER, SELFPAY ==
[2024-12-24 12:48] LABS: Hematocrit 40.4 % (37-47); Hemoglobin 13.3 g/dL (12.0-15.0); Immature Granulocytes Count 0.010 X10^3/uL (0.0-0.0); Mean Corp Hgb Conc 32.9 g/dL (32-36); Mean Corpuscular Volume 93.1 fL (81-99); NRBC Flagged by Analyzer 0 % (0-5); POSITIVE COUNT YES; RBC Distribution Width CV 11.9 % (11.6-14.6); RBC Distribution Width SD 41.1 fl (35.1-43.9); Red Blood Count 4.34 M/mm3 (4.2-5.4); White Blood Count 4.9 K/mm3 (4.4-11.0)
[2024-12-24 13:36] LABS: Vitamin D,25 Hydroxy 13.3 ng/mL (30-100)
[2024-12-24 13:40] LABS: AST(SGOT) 21 U/L (<=31); Alanine Aminotransfer ALT/SGPT 26 U/L (<=34); Albumin, Serum 4.1 g/dL (3.5-5.0); Alkaline Phosphatase 87 U/L (35-104); Anion Gap 13 (5-15); BUN 13 mg/dL (4-19); BUN/Creat Ratio 21.5 RATIO (10-20); Calcium,Total 8.9 mg/dL (7.6-11.0); Carbon Dioxide 21.8 mmol/L (21.0-32.0); Chloride 104 mmol/L (98-108); Globulin 2.4 g/dL (2.2-4.2); Glucose 84 mg/dL (70-99); Mean Platelet Vol. 10.7 fl (6.2-12.0); Potassium 4.3 mmol/L (3.3-5.1)
== END | disposition home or self-care (01) ==
LOC: HHLAB 11:24
PROVIDERS: Visit Provider Nurse Practitioner Family
DX: I69.332 Monoplegia of upper limb following cerebral infarction affecting left dominant side (principal)
CPT/HCPCS: 80053; 82306; 84443; 85025

== ENCOUNTER 2024-12-26 12:01 | Emergency (ER) | payer OTHER, SELFPAY ==
[2024-12-26 12:01] VITALS: BP 141/90; PULSE 80; RESP 14; TEMP 36.6; O2SAT 99; BMI 32.7
[2024-12-26 12:08] VITALS: BMI 32.7
--- NOTE | 2024-12-26 12:46 | EKG12_ITS ---
Test Reason : NEURO SX Blood Pressure : */* mmHG Vent. Rate : 73 BPM Atrial Rate : 73 BPM P-R Int : 166 ms QRS Dur : 84 ms QT Int : 398 ms P-R-T Axes : 29 0 27 degrees QTcB Int : 438 ms Normal sinus rhythm Normal ECG Confirmed by MAE SCHWAB, STELLA ([id number]), news editor KAVON BARONE ([id number]) on 12/27/2024 10:59:25 AM Referred By: Confirmed By: STELLA WALL MD
--- NOTE | 2024-12-26 12:46 | CT_ITS ---
PROCEDURE: BRAIN/HEAD WITHOUT CONTRAST 12/26/2024 REASON FOR EXAM: PRIOR STROKE, TREMOR TECHNIQUE: Procedure Code: CTBR Modality: CT Procedure: BRAIN/HEAD WITHOUT CONTRAST Coronal and Sagittal reconstruction series were provided. One or more dose reduction techniques were used (e.g., Automated exposure control, adjustment of the mA and/or kV according to patient size, use of iterative reconstruction technique. RADIATION DOSE SUMMARY: CTDlvol: 44.99 mGy DLP: 745.49 mGycm COMPARISON: MRI brain October 31, 2024. FINDINGS: Brain: Old large infarction in the right frontal lobe. No mass-effect or midline shift. The craniocervical junction is unremarkable. No mass-effect or midline shift. The orbits are unremarkable. CSF Spaces: Unremarkable. Sinuses/Mastoids: Clear. Bones: No acute bony abnormalities. CT/Brain/Head without Contrast IMPRESSION: No acute intracranial abnormalities. Chronic right frontal infarction. Reading Location: [id number]
[2024-12-26 13:01] VITALS: BP 122/105; PULSE 74; RESP 16; O2SAT 100
[2024-12-26 13:17] LABS: Mucous, Urine 0 SEEN /hpf (<or=2+); Red Blood Cells-Urine 0 SEEN /hpf (0-5)
[2024-12-26 13:23] LABS: Color, Urine Yellow (Yellow); Glucose, Dipstick Normal (Normal); Hematocrit 43.3 % (37-47); Hemoglobin 14.1 g/dL (12.0-15.0); Immature Granulocytes Count 0.040 X10^3/uL (0.0-0.0); Ketone-Dipstick Negative (Negative); Leukocyte Esterase-Dipstick 100 /ul (Negative); Mean Corp Hgb Conc 32.6 g/dL (32-36); Mean Corpuscular Volume 93.5 fL (81-99); Mean Platelet Vol. 9.8 fl (6.2-12.0); NRBC Flagged by Analyzer 0 % (0-5); Nitrite-Dipstick Negative (Negative); Occult Blood-Urine Negative /ul (Negative); Platelet Count 337 K/mm3 (150-450); Protein-Dipstick Negative (Negative); RBC Distribution Width CV 12.1 % (11.6-14.6); RBC Distribution Width SD 42.1 fl (35.1-43.9); Red Blood Count 4.63 M/mm3 (4.2-5.4); Specific Gravity, Urine 1.010 (1.002-1.030); Urine Bilirubin Dipstick Negative (Negative); White Blood Count 7.6 K/mm3 (4.4-11.0)
[2024-12-26 13:34] LABS: Squamous Epithelial Cells - UA 0-5 SEEN /hpf (5-10)
[2024-12-26 13:45] LABS: Anion Gap 8 (5-15); BUN 15 mg/dL (4-19); BUN/Creat Ratio 22.4 RATIO (10-20); Calcium,Total 9.0 mg/dL (7.6-11.0); Carbon Dioxide 25.5 mmol/L (21.0-32.0); Chloride 104 mmol/L (98-108); Estimated Creatinine Clearance 117.54 ml/min (50-250); Glucose 84 mg/dL (70-99); Potassium 4.1 mmol/L (3.3-5.1)
[2024-12-26 14:00] VITALS: BP 124/81; PULSE 69; RESP 23; O2SAT 97
--- NOTE | 2024-12-26 14:40 | EX.ED.DYSGE1 ---
HPI History of Present Illness Chief Complaint: Neuro S/Sx Informant: patient Narrative Narrative: Patient is a 39-year-old female with history of prior stroke (residual left-sided leg weakness and paresthesias), Migraines, acquired polycythemia, ADHD and hypertension presenting with worsening shakiness and some lightheadedness. She is not sure if it is from her medications. Patient states that yesterday she had a more exertional day running errands with her grandmother (she states she was not physically that active but it was a lot for her since her stroke and hospitalization/rehab) today at rehab she does with exertion she was tremulous and shaky in her extremities (worse on the left). She also notes that her head sometimes shakes. She is of a familiar history of essential tremor in her mother and grandmother so she is not sure if that is developing. She also reports that she had a fall about 2 weeks ago and hit her head pretty hard. She was not evaluated at that time but she felt fine afterwards. She does take 81 mg aspirin daily. She has been taking gabapentin and tizanidine at night but recently realized that she was taking 1 pill and she is post to 2 so she did take more than normal last night. She is not sure if this is related. She denies any headache or fevers. She did have an episode of blurry vision when looking at her phone today however that is since resolved. She states that since she has been discharged home she urinates all the time but also drinks a lot. She denies any dysuria. No other complaints or concerns at this time [facility] Medical History Central neuropathic pain Vaping nicotine dependence, non-tobacco product Allergic rhinitis Migraine headache Hypertension Anxiety Insomnia Amphetamine use Polycythemia HTN (hypertension) ADHD Migraine Home Medications ?Medication ?Instructions ?Recorded ?Last Taken ?Type loratadine 10 mg tablet (Claritin) 10 mg PO DAILY PRN PRN Allergies 01/25/18 Unknown History [facility] 11/01/24 Rx tabs acetaminophen 325 mg tablet 650 mg (2 x 325 mg) PO Q6H PRN PRN 12/05/24 Unknown Rx Pain Score 1-10 #0 tabs atorvastatin 80 mg tablet 80 mg PO QHS cholesterol #30 tabs 12/05/24 Unknown Rx bupropion HCl 300 mg 24 hr tablet, 300 mg PO DAILY #30 tabs 12/05/24 Unknown Rx extended release buspirone 10 mg tablet 10 mg PO TID #90 tabs 12/05/24 Unknown Rx duloxetine 30 mg capsule,delayed 30 mg PO DAILY #30 caps 12/05/24 Unknown Rx release gabapentin 100 mg capsule 200 mg (2 x 100 mg) PO QHS #30 caps 12/05/24 Unknown Rx lisinopril 10 mg tablet 10 mg PO DAILY blood pressure #30 12/05/24 Unknown Rx tabs propranolol 40 mg tablet 40 mg PO BID #60 tabs 12/05/24 Unknown Rx tizanidine 2 mg tablet 4 mg (2 x 2 mg) PO HS #60 tabs 12/05/24 Unknown Rx Allergy/AdvReac Type Severity Reaction Status Date / Time naproxen Allergy Hives Verified 12/11/24 09:52 Family History Mother Hypertension Depression Anxiety PTSD (post-traumatic stress disorder) Surgical History History of section Social History household members: children and other details: son who is 16, Ramiro, lives with her number of children: 1 current occupational status: employed 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 Smoking Status: Former smoker alcohol intake: current alcohol intake frequency: 0-2 drinks per day Alcohol type: wine substance use type: marijuana caffeine: No do you feel safe at home: Yes ROS ROS ED Constitutional Constitutional ED: Denies chills, fever(s), sweats or weight loss Eyes Eyes: Reports blurry vision Cardiovascular Cardiovascular: Denies chest pain Respiratory/Chest Respiratory/Chest: Denies cough Gastrointestinal Gastrointestinal: Denies abdominal pain, diarrhea or vomiting Genitourinary Genitourinary ED: Reports urinary frequency; Denies dysuria or hematuria Musculoskeletal Musculoskeletal: Denies arthralgias or myalgias Integumentary Denies rash Neurologic Neurologic: Reports paresthesias LUE, weakness and other Details: Tremor Psychiatric Psychiatric: Denies anxiety Hematologic/Lymphatic Hematologic/Lymphatic: Denies easy bleeding or easy bruising EXAM Physical Exam Const Vital Signs: 12/26/24 12:01 12/26/24 13:01 12/26/24 14:00 Temperature 98 F Temperature Source Temporal Pulse Rate 80 74 69 Respiratory Rate 14 16 23 H Blood Pressure 141/90 H 122/105 H 124/81 H Blood Pressure Mean 107 110 95 Pulse Ox 99 100 97 Oxygen Delivery Method Room Air Room Air Room Air Positive well nourished and well developed General Appearance ED: well developed and NAD HEENT Reports moist mucous membranes Eyes PERRL and EOMs intact bilaterally Neck supple Chest Wall inspection of chest normal and palpation of chest normal Resp normal respiratory effort and clear to auscultation bilaterally Cardio regular rate, regular rhythm and no murmurs GI normal to inspection, nondistended, normoactive bowel sounds and non-tender Extremity normal to inspection General Extremety ED: Negative for edema or tenderness General Extremity: Negative for edema Neuro oriented x3 and CN's II-XII intact bilaterally Neuro Narrative: Subjective paresthesias of the left lower extremity (chronic for patient since her stroke). No drift of the extremities and 5/5 strength in all extremities however she is slightly weaker in her right leg compared to the left (again chronic for her since her stroke). Mild intention tremor noted of the left hand when she holds her arm out. No tremor of the head appreciated. Normal [id number]. No neglect or gaze deviation. NIH equals 1 for paresthesias however this is chronic Psych mental status grossly normal Skin no rashes or lesions noted and no wounds MDM MDM MDM Narrative Medical decision making narrative: Patient evaluated for shakiness, lightheadedness and generalized weakness. She was discharged from rehab at the beginning of this month and has been doing PT. Was very weak today and shaky. Differential includes electrolyte derangements, dehydration, overuse, symptomatic anemia and underlying infection. Given that she did hit her head 2 weeks ago and had a recent stroke will obtain repeat CT to ensure there is no acute process. Her symptoms today are not consistent with an acute stroke. Her workup is largely normal including CBC, BMP and urinalysis. Patient does have 100 leukocyte esterase in her urine but no bacteria. Will send for culture given she is having urinary frequency but will defer treatment at this time. Patient remains hemodynamically stable in the emergency room. TSH was drawn earlier this week and reviewed which was normal. Low suspicion of acute thyroid abnormality causing her symptoms. EKG does not show any arrhythmia. At this time feel that patient can safely be discharged home with outpatient follow-up with neurology for her tremor. Discussed that it could be medication reaction given she took an increased dose of her gabapentin/tizanidine last night or could be from overuse/increased exertion of her muscles given everything she is recently been through. She verbalized agreement understands. Discussed that if her symptoms worsen or progress she should return to the emergency room. Lab Data Attestation: I reviewed the patient's lab results. Labs: Laboratory Results - last 24 hr 12/26/24 12/26/24 12:11 13:10 WBC 7.6 RBC 4.63 Hgb 14.1 Hct 43.3 MCV 93.5 MCH 30.5 MCHC 32.6 RDW Std Deviation 42.1 RDW Coeff of Maria Teresa 12.1 Plt Count 337 MPV 9.8 Immature Gran % (Auto) 0.500 Neut % (Auto) 63.3 Lymph % (Auto) 25.0 Vance % (Auto) 9.2 Eos % (Auto) 1.2 Baso % (Auto) 0.8 Absolute Neuts (auto) 4.8 Absolute Lymphs (auto) 1.91 Nucleated RBC % 0 Sodium 138 Potassium 4.1 Chloride 104 Carbon Dioxide 25.5 Anion Gap 8 BUN 15 Creatinine 0.67 L Estim Creat Clear Calc 117.54 Est GFR (MDRD) Non-Af 113 BUN/Creatinine Ratio 22.4 H Glucose 84 Calcium 9.0 Urine Color Yellow Urine Clarity Clear Urine pH 6.5 Ur Specific [place] 1.010 Urine Protein Negative Urine Glucose (UA) Normal Urine Ketones Negative Urine Occult Blood Negative Urine Nitrite Negative Urine Bilirubin Negative Urine Urobilinogen Normal Ur Leukocyte Esterase 100 H Urine RBC 0 SEEN Urine WBC 0-5 SEEN Ur Squamous Epith Cells 0-5 SEEN Urine Bacteria 0 SEEN Urine Mucus 0 SEEN POC Glucose 106 Radiography Diagnostic Testing: Clinical Impression(s) from Imaging Studies Brain CT 12/26/24 12:46 IMPRESSION: No acute intracranial abnormalities. Chronic right frontal infarction. Reading Location: [facility] Rhythm Strip Rhythm Strip: Sinus Rhythm Rate: 73 Ectopy: None EKG Initial EKG: Attestation: I personally reviewed and interpreted this EKG as follows: Interpretation: Sinus Rhythm Comments: Normal sinus rhythm at a rate of 73 bpm Normal axis Normal intervals Normal ST segments Discharge Plan Triage Chief Complaint: Neuro S/Sx ED Provider: Mary Corbin Dx/Rx/DC Orders Clinical Impression: Tremor, Intermittent lightheadedness, History of stroke Instructions: ED Dizziness, Uncertain Cause Prescriptions: No Action loratadine [Claritin] 10 MG tablet 10 mg PO DAILY PRN PRN (Reason: Allergies) aspirin 81 mg Tablet,Chewable 81 mg PO DAILYCM Qty: 0 0RF acetaminophen 325 mg Tablet 650 mg PO Q6H PRN PRN (Reason: Pain Score 1-10) Qty: 0 0RF propranolol 40 mg Tablet 40 mg PO BID Qty: 60 0RF gabapentin 100 mg Capsule 200 mg PO QHS Qty: 30 0RF bupropion HCl 300 mg Tablet Extended Release 24 Hr 300 mg PO DAILY Qty: 30 0RF duloxetine 30 mg Capsule,Delayed Release(Dr/Ec) 30 mg PO DAILY Qty: 30 0RF tizanidine 2 mg Tablet 4 mg PO HS Qty: 60 0RF buspirone 10 mg tablet 10 mg PO TID Qty: 90 0RF Rx Instructions: Take this with breakfast, at 2-3 PM and at bedtime atorvastatin 80 mg Tablet 80 mg PO QHS Qty: 30 0RF lisinopril 10 mg Tablet 10 mg PO DAILY Qty: 30 0RF Primary Care Provider: Torri Zapata Referrals: Liudmila Prado NP-C [Med Staff - [facility] Prof, Neurology] Torri Zapata NP-C [Primary Care Provider, Family Practice] Activity Restrictions/Additional Instructions: If the symptoms persist please call neurology office to schedule follow-up appointment. Workup today was largely normal and reassuring. Exact cause of the symptoms is not clear. It could be due to increased use/exertion or the increase in your medication last night. Your urine was sent for culture to ensure you do not have a urinary tract infection. You will be contacted if you require antibiotics. If you feel like you are worsening please return to the emergency room. Print Language: Lithuanian Disposition Disposition: Home, Self Care
[2024-12-26 14:49] VITALS: BP 137/104; PULSE 75; RESP 19; TEMP 37; O2SAT 97
== END 2024-12-26 15:26 | disposition home or self-care (01) ==
PROVIDERS: Emergency Provider Emergency Medicine; PCP Nurse Practitioner Family; Visit Provider Emergency Medicine
DX: R25.1 Tremor, unspecified (principal); I69.344 Monoplegia of lower limb following cerebral infarction affecting left non-dominant side; I69.398 Other sequelae of cerebral infarction; R42 Dizziness and giddiness; I10 Essential (primary) hypertension; Z79.82 Long term (current) use of aspirin; Z79.899 Other long term (current) drug therapy; Z87.891 Personal history of nicotine dependence
CPT/HCPCS: 70450; 80048; 81001; 82962; 85025; 87086; 87088; 93005; 99284; A4216

== ENCOUNTER → 2024-12-31 | Outpatient (CLI) | payer OTHER, SELFPAY ==
[2025-01-05 14:08] LABS: HPV APTIMA, High Risk Negative (Negative)
== END | disposition home or self-care (01) ==
LOC: LABSPEC 13:50
PROVIDERS: PCP Nurse Practitioner Family; Visit Provider Nurse Practitioner Family
DX: Z12.4 Encounter for screening for malignant neoplasm of cervix (principal)
CPT/HCPCS: 87624; 88175; G0145

== ENCOUNTER → 2025-01-16 | Outpatient (CLI) | payer OTHER, SELFPAY ==
--- NOTE | 2025-01-16 16:31 | BI_ITS ---
EXAM: SCRN MAMM (CAD)W/JEMMA BILAT DATE: 01/16/2025 CLINICAL HISTORY: F, Age 39 y/o , SCREENING TECHNIQUE: Procedure Code: [id number] Modality: MG Procedure: SCRN MAMM (CAD)W/JEMMA BILAT COMPARISON: Baseline examination, no priors. FINDINGS: TISSUE DENSITY: There are scattered areas of fibroglandular density. Bilateral Breast Mammographic Findings: No significant masses, calcifications or other abnormalities are identified. BI/SCRN MAMM (CAD)W/JEMMA BILAT IMPRESSION: There is no mammographic evidence of malignancy. OVERALL FINAL ASSESSMENT BI-RADS 1: NEGATIVE. RECOMMENDATION: Routine annual follow-up in 1 Year Additional Recommendation none A letter with findings and recommendations will be mailed to the patient. Reading Location: [id number]
--- OUTSIDE RECORDS SUMMARY | 2025-01-17 07:29 | XMS RPT_ITS | CCD ---
Author Organization [facility] Care Team Providers Care Leisure Studies Professor Name Role Phone Unavailable Primary Care Provider Unavailabl e Care Physician, No Primary Primary Care Provider Unavailable Care Physician, No Primary Referring Provider Un available Yefri Mancera Attending Provider Yefri Mancera Referring Provider [phone] Dr. Domenico Silva DO Emergency Provider Haney DO, Dr. Cerna Admit Provider Unavail able Dr. Nehemiah Haney DO Attending Provider Unav ailable Haney DO, Dr. Cerna Other Provider Unavail able David Gale MD Other Provider Unavailable Dr. Ehsan Uriarte MD Other Provider [phone] Sheeba Rodriguez MD Other Provider Unavailable Dr. Lydia Orantes DO Other Provider [phone] Dr. Renee Cleveland MD Other Provider [phone] Klye Ghosh MD Other Provider [phone] Dr. Leidy Mckinnon MD Other Provider [phone] Reagan White MD Other Provider Dr. Tong Rai MD Other Provider Andres SCHWAB, Dr. Reza Other Provider Shakira Anthony MD Other Provider Dr. Aaron Chavez MD Other Provider Dr. Sherry Lugo MD Other Provider Arnulfo SCHWAB, Dr. Hoang Other Provider Maribell SCHWAB, Dr. Hemanth Domingo Other Provider Alex SCHWAB, Dr. Moss Other Provider [phone] Yobany SCHWAB, Dr. Torres Other Provider Gurmeet SCHWAB, Dr. Chau Other Provider [phone] Afshin SCHWAB, Dr. Valentine Other Provider Unavailable [...] Lemuel SCHWAB, Dr. Agrawal Other Provider Forest [employer]SP[employer]ER [employer] SUPERVISOR-C, Jarred Medina Other Provider Danielle Palm Other Provider Omer Shaver Other Provider Bean SCHWAB, Dr. Dunn Other Provider Chayo PHILLIPS, Dr. Netta Reyez Attending Provide r Mychal PHILLIPS, Dr. Manuel Other Provider Chayo PHILLIPS, Dr. Netta Reyez Other Provider Mychal PHILLIPS, Dr. Manuel Admit Provider Mychal PHILLIPS, Dr. Manuel Referring Provider Shanel SCHWAB, Dr. Cerna Other Provider Padmini SCHWAB, Dr. Larkin Other Provider Unavailable Juliana SCHWAB, Dr. Juarez Other Provider Field SCHWAB, Dr. Stone Other Provider Beto SCHWAB, Dr. Castillo Other Provider Unavailable Valeriy SCHWAB, Dr. Walker Other Provider Hemanth PHILLIPS, Dr. Burgos Other Provider Renny NEWSP[employer]ER CARRIERS SUPERVISOR-C, Angelica Other Provider Dr. Nehemiah Hammond MD Attending Provider Unavaila ble Bean SCHWAB, Dr. Dunn Attending Provider Dr. Nehemiah Hammond MD Other Provider Unavailable Jace SCHWAB, Dr. Ximena Castañeda Attending Provider Care Physician, No Primary Primary Care Provider Unavailable Care Physician, No Primary Referring Provider Un available Yefri Mancera Attending Provider Yefri Mancera Referring Provider Dr. Domenico Silva DO Emergency Provider Haney DO, Dr. Cerna Admit Provider Unavail able Dr. Nehemiah Haney DO Other Provider Unavail able David Gale MD Other Provider Unavailable Kalani SCHWAB, Dr. Moser Other Provider [phone] Sheeba Rodriguez MD Other Provider Unavailable Dr. Lydia Orantes DO Other Provider [phone] Dr. Renee Cleveland MD Other Provider [phone] Augie SCHWAB, Dr. Wright Other Provider Pratibha SCHWAB, Dr. Forbes Other Provider Cindy SCHWAB, Dr. Kirk Other Provider [phone] Fredi SCHWAB, Dr. Fortune Other Provider Andres SCHWAB, Dr. Reza Other Provider Gabrielle SCHWAB, Shakira Other Provider Scott SCHWAB, Dr. Walker Other Provider Parish SCHWAB, Dr. Powell Other Provider [phone] Arnulfo SCHWAB, Dr. Hoang Other Provider Maribell SCHWAB, Dr. Hemanth Domingo Other Provider Alex SCHWAB, Dr. Moss Other Provider Yobany SCHWAB, Dr. Torres Other Provider Gurmeet SCHWAB, Dr. Chau Other Provider Afshin SCHWAB, Dr. Valentine Other Provider Unavailable Mark Garcias MD Other Provider Unavailable Narciso SCHWAB, Dr. Baxter Attending Provider Dr. Sen Clarke MD Other Provider Vince SCHWAB, Dr. Sen Whipple Attending Provider Jayce SCHWAB, Dr. Foy Attending Provider Dr. Vee Stuart MD Other Provider Trav SCHWAB, Dr. Luis Saucedo Admit Provider Trav SCHWAB, Dr. Luis Saucedo Other Provider Dr. Lori Hay MD Other Provider Unavailable Anne SCHWAB, Dr. Schofield [...] Lemuel SCHWAB, Dr. Agrawal Other Provider Forest [employer]SP[employer]ER [employer] SUPERVISOR-C, Jarred Medina Other Provider Kasie PIERCE, Danielle Sharma Other Provider Omer Shaver Other Provider Bean SCHWAB, Dr. Dunn Other Provider Chayo PHILLIPS, Dr. Netta Reyez Attending Provide r Dr. Kaleb Horta DO Other Provider Chayo PHILLIPS, Dr. Netta Reyez Other Provider Mychal PHILLIPS, Dr. Manuel Admit Provider Mychal PHILLIPS, Dr. Manuel Referring Provider Shanel SCHWAB, Dr. Cerna Other Provider Padmini SCHWAB, Dr. Larkin Other Provider Unavailable Juliana SCHWAB, Dr. Juarez Other Provider Field SCHWAB, Dr. Stone Other Provider Beto SCHWAB, Dr. Castillo Other Provider Unavailable Valeriy SCHWAB, Dr. Walker Other Provider Dr. Aubrey Saxena DO Other Provider Renny [employer]SP[employer]ER [employer] SUPERVISOR-C, Angelica Other Provider Stephany SCHWAB, Dr. Cerna Attending Provider Unavaila moi Del Angel MD, Dr. Dunn Attending Provider Dr. Nehemiah Hammond MD Other Provider Unavailable Jace SCHWAB, Dr. Ximena Castañeda Attending Provider Narciso SCHWAB, Dr. Baxter Referring Provider Chayo DO, Dr. Netta Reyez Admit Provider Nolan [employer]SP[employer]ER [employer] SUPERVISOR-C, Sandra Attending Provide r Jayce SCHWAB, Dr. Foy Referring Provider Johan NEWSP[employer]ER CARRIERS SUPERVISOR-CLiudmila Attending Provider Care Physician, No Primary Primary Care Physicia n Unavailable Ricardo PHILLIPS, Dr. Acuña Emergency Department Physi baljeet Haney DO, Dr. Cerna Admitting Physician Shanika vailable Haney DO, Dr. Cerna Nurse Practitioner Unav ailable Baljinder SHCWAB, David Nurse Practitioner Unavailable Kalani SCHWAB, Dr. Moser Nurse Practitioner [phone] Jennifer SCHWAB, Sheeba Nurse Practitioner Unavailab pito Orantes DO, Dr. Freeman Nurse Practitioner Megha SCHWAB, Dr. Duran Nurse Practitioner Augie SCHWAB, Dr. Wright Nurse Practitioner Pratibha SCHWAB, Dr. Forbes Nurse Practitioner Dr. Reagan White MD Nurse Practitioner Fredi SCHWAB, Dr. Fortune Nurse Practitioner Andres SCHWAB, Dr. Reza Nurse Practitioner Gabrielle SCHWAB, Shakira Nurse Practitioner Scott SCHWAB, Dr. Walker Nurse Practitioner Parish SCHWAB, Dr. Powell Nurse Practitioner Arnulfo SCHWAB, Dr. Hoang Nurse Practitioner Maribell SCHWAB, Dr. Hemanth Domingo Nurse Practitioner Alex SCHWAB, Dr. Moss Nurse Practitioner Yobany SCHWAB, Dr. Torres Nurse Practitioner [phone] Gurmeet SCHWAB, Dr. Chau Nurse Practitioner Afshin SCHWAB, Dr. Valentine Nurse Practitioner Yee Garcias MD, Mark Nurse Practitioner Yee Stuart MD, Dr. Baxter Attending Physician Vince SCHWAB, Dr. Sen Whipple Nurse Practitioner Vince SCHWAB, Dr. Sen Whipple Attending Physician Jayce SCHWAB, Dr. Foy Attending Physician Narciso SCHWAB, Dr. Baxter Nurse Practitioner Trav SCHWAB, Dr. Luis Saucedo Admitting Physician Trav SCHWAB, Dr. Luis Saucedo Nurse Practitioner Satnam SCHWAB, Dr. Sandoval Nurse Practitioner Yee Rodríguez MD, Dr. Schofield Nurse Practitioner Unavailab pito Carpio MD, Dr. Esetban Nurse Practitioner Josue SCHWAB, Dr. Davis Nurse Practitioner Miguel SCHWAB, Dr. Thorpe Nurse Practitioner Hal SCHWAB, Dr. Vasquez Nurse Practitioner Unavaila moi Eduardo MD, Dr. Foy Nurse Practitioner Clifford PHILLIPS, Dr. Nehemiah Jackson Nurse Practitioner Berny SCHWAB, Dr. Andujar Nurse Practitioner Sanjuanita SCHWAB, Dr. Reece Nurse Practitioner Yolanda SCHWAB, Dr. Hayes Nurse Practitioner Justus SCHWAB, Dr. Corral Nurse Practitioner Lemuel SCHWAB, Dr. Agrawal Nurse Practitioner Forest [employer]SP[employer]ER [employer] SUPERVISOR-C, Jarred Medina Nurse Practitioner Danielle Palm Nurse Practitioner Omer Shaver Nurse Practitioner Bean SCHWAB, Dr. Dunn Nurse Practitioner Chayo PHILLIPS, Dr. Netta Reyez Attending Physici an Mychal PHILLIPS, Dr. Manuel Nurse Practitioner Chayo PHILLIPS, Dr. Netta Reyez Nurse Practitione r Mychal PHILLIPS, Dr. Manuel Admitting Physician Shanel SCHWAB, Dr. Cerna Nurse Practitioner Padmini SCHWAB, Dr. Larkin Nurse Practitioner Unavailchristina Andrews MD, Dr. Juarez Nurse Practitioner Field SCHWAB, Dr. Stone Nurse Practitioner Beto SCHWAB, Dr. Castillo Nurse Practitioner Unavailable Valeriy SCHWAB, Dr. Walker Nurse Practitioner Hemanth PHILLIPS, Dr. Burgos Nurse Practitioner Renny [employer]SP[employer]ER [employer]ERS SUPERVISOR-C, Angelica Nurse Practitioner Dr. Nehemiah Hammond MD Attending Physician Unavail able Bean SCHWAB, Dr. Dunn Attending Physician Stephany SCHWAB, Dr. Cerna Nurse Practitioner Unavaila moi Mccormick MD, Dr. Ximena Castañeda Attending Physician Chayo PHILLIPS, Dr. Netta Reyez Admitting Physici an Nolan NEWSPAPER CARRIERS SUPERVISOR-CSandra Attending Physici an Care Physician, No Primary Referring Provider Un available Johan QUICK-Liudmila Bolden Attending Physician Benny QUICK-C, Torri Attending Physician Dr. Mary Corbin DO Attending Physician Dr. Mary Corbin DO Emergency Department Physi baljeet Benny NEWSPAPER CARRIERS SUPERVISOR-CTorri Primary Care Physician Chayo PHILLIPS, Dr. Netta Reyez Referring Provide r Dr. Shaun Del Angel MD Referring Provider Fidencio NEWSPAPER CARRIERS SUPERVISOR-CChristelle Attending Physician Benny CESAR, Torri Attending Unavailabl e Care Physician, No Primary Primary Care Unava ilable Christelle Nicolas Attending Unavailable Torri aVughan Primary Care Unavailabl e Yefri Mancera Referring Unavailable Yefri Mancera Attending Unavailable Care Physician, No Primary Primary Care Unava ilable Sementi, Netta Reyez Consulting Unavaila ble Sementi, Netta Reyez Admitting Unavaila ble Sementi, Netta Reyez Attending Unavaila ble Care Physician, No Primary Primary Care Unava ilable Sementi, Netta Reyez Attending Unavaila ble Care Physician, No Primary Primary Care Unava ilable Sementi, Netta Reyez Admitting Unavaila ble Care Physician, No Primary Primary Care Unava ilable Provider, Ed Physician Attending Unavailab David Sorenson Consulting Unavailable Vee Stuart Attending Unavailable Care Physician, No Primary Primary Care Unava ilable Nehemiah Haney Admitting Unavailable Ehsan Uriarte Consulting Unavailable Sheeba Rodriguez Consulting Unavailable Lydia Orantes Consulting Unavailable Renee Cleveland Consulting Unavailable Kyle Ghosh Consulting Unavailable Leidy Mckinnon Consulting Unavailable Reagan White Consulting Unavailable Tong Rai Consulting Unavailable Juaquin Campos Consulting Unavailable Shakira Anthony Consulting Unavailable Aaron Chavez Consulting Unavailable Sherry Lugo Consulting Unavailable Natalya Arredondo Consulting Unavailable Le Reynad Jose L Consulting UnavailAjay Dahl Consulting Unavailable Melissa Haywood Consulting Unavailable Isac Levi Consulting Unavailable Meme Pepe Consulting Unavailable Mark Garcias Consulting Unavailable Nehemiah Haney Consulting Unavailable Sen Clarke Consulting Unavailable Trav, Luis Chi Admitting Unavailable AmroRickmed Consulting Unavailable Sementi, Netta Reyez Attending Unavaila ble Care Physician, No Primary Primary Care Unava ilable Jabri, Ahmad Consulting Unavailable Mostafa, Eulalia Consulting [...] Unavailable Shaun Del Angel Consulting Unavailable Trav, Lius Chi Consulting Unavailable Mosteller, Kaleb Consulting Unavailable Benny VSC, Torri Primary Care Unavailabl e Shaun Del Angel Attending Unavailable Prah, Shaun Referring Unavailable Care Physician, No Primary Referring Unava ilable Care Physician, No Primary Primary Care Unava ilable Yefri Mancera Attending Unavailable Liudmila Prado Attending Unavailable Care Physician, No Primary Referring Unava ilable Care Physician, No Primary Primary Care Unava ilable Jayce, Healy Attending Unavailable Care Physician, No Primary Primary Care Unava ilable Jayce, Law Attending Unavailable Care Physician, No Primary Primary Care Unava ilable Care Physician, No Primary Primary Care Unava ilable Jayce, Law Referring Unavailable Law Eduardo Attending Unavailable Christelle Nicolas Referring Unavailable [facility] Primary Care Unavailabl Christelle Gunderson Attending Unavailable [facility], [facility] Primary Care Unavailabl Mary Orta Attending Unavailable Vee Stuart Referring Unavailable Vee Stuart Attending Unavailable Care Physician, No Primary Primary Care Unava ilable Care Physician, No Primary Primary Care Unava ilable Nehemiah Hammond Attending Unavailable Mosttamie, Kaleb Admitting Unavailable Mosttamie, Kaleb Referring Unavailable Nehemiah Ugarte Consulting Unavailable Prakait, Shaun Consulting Unavailable Washington, Trae Consulting Unavailable Isckarus, Mansour Consulting Unavailable , Chase Consulting Unavailable Jin, Jonathan Consulting Unavailable Macklis, Aaron Consulting Unavailable Hemanth, Aubrey Consulting Unavailable Renny NEWSP[employer]ER CARRIERS SUPERVISOR, Angelica Consulting Unavailable Jayce, Law Consulting Unavailable Mychal, Kaleb Consulting Unavailable Nehemiah Hammond Consulting Unavailable Nehemiah Hammond Attending Unavailable Nehemiah Ugarte Consulting Unavailable Mosteller, Kaleb Admitting Unavailable Mosteller, Kaleb Referring Unavailable Care Physician, No Primary Primary Care Unava ilable Prah, Shaun Consulting Unavailable Washington, Trae Consulting Unavailable Isckarus, Mansour Consulting Unavailable Field, Chase Consulting Unavailable Jin, Jonathan Consulting Unavailable Macklis, Aaron Consulting Unavailable Hemanth, Aubrey Consulting Unavailable Renny NEWSP[employer]ER [employer]RIERS SUPERVISOR, Angelica Consulting Unavailable Jayce, Healy Consulting Unavailable Mosteller, Kaleb Consulting Unavailable Benny VSC, Torri Primary Care Unavailabl e Benny VSC, Torri Referring Unavailabl e Benny C, Torri Attending Unavailabl e Trav, Luis Chi Admitting Unavailable Jayce, Healy Attending Unavailable Amro, Ahmed Consulting Unavailable Care Physician, No Primary Primary Care Unava ilable Jazahraa, Rickmad Consulting Unavailable Mostnaya Eulalia Consulting Unavailable Susan Salas Consulting Unavailable Maurilio Rivera Consulting Unavailable Pedro Hong Consulting Unavailable Jayce, Law Consulting Unavailable Nehemiah Horton Consulting Unavailable Pratima Arrieta Consulting Unavailable Chevy Gann Consulting Unavailable Abigail Guerrero Consulting Unavailtony horton SatEllis rose Consulting Unavailable Nghia Hdez Consulting Unavailable Forest NEWSP[employer]ER [employer]ERS SUPERVISOR, Jarred Medina Consulting Unavailable Kasie PIERCE, Danielle Sharma Consulting Unavail able Omer Naranjo Consulting Unavailable Shaun Del Angel Consulting Unavailable Luis Ravi Chi Consulting Unavailable Kaleb Horta Consulting Unavailable Netta Domingo Consulting UnavailKaleb Borja Attending Unavailable Shaun Del Angel Attending Unavailable Ximena Mccormick Attending Unavailable Law Eduardo Attending Unavailable Netta Domingo Attending Unavaila ble SemenNetta rose Referring Unavaila ble [facility] Primary Care UnavailShaun Gimenez Attending Unavailable Sen Clarke Attending Unavailable David Gale Consulting Unavailable Nehemiah Haney Admitting Unavailable Care Physician, No Primary Primary Care Unava ilable Adeblanca, Amir Consulting Unavailable Hinduja, Sheeba Consulting Unavailable Lamberto Lydia Consulting Unavailable Zha, Renee Consulting Unavailable Augie, Kyle Consulting Unavailable Pratibha Leidy Consulting Unavailable Reagan White Consulting Unavailable Tong Rai Consulting Unavailable Juaquin Campos Consulting Unavailable Shakira Anthony Consulting Unavailable Aaron Chavez Consulting Unavailable Sherry Lugo Consulting Unavailable RidNatalya plaza Consulting Unavailable Le Reynad Jose L Consulting UnavailAjay Dahl Consulting Unavailable Haywood Rami Consulting Unavailable Isac Levi Consulting Unavailable Meme Pepe Consulting Unavailable Mark Garcias Consulting Unavailable Nehemiah Haney Consulting Unavailable Sen Clarke Consulting Unavailable Vee Stuart Attending Unavailable Vee Stuart Consulting Unavailable Nehemiah Haney Attending Unavailable Sandra Francisco Attending Balwinder snowden Allergies Allergy Classification Reported Allergen(s) Allergy Type Date of Onset Reaction(s) Facility (13 sources) Naproxen; Translations: [NAPROXEN] Drug Allergy 5 Hives [facility] Work Phone: (2 sources) Seasonal allergy; Translations: [SEASONAL ALLERGIES] Propensity to adverse reactions 0 [facility] (3 sources) Codeine Drug Allergy 5 Unknown [facility] (1 source) Codeine Drug Allergy 5 [facility] (1 source) Naproxen Drug Allergy 5 [facility] Medications Current Medications Medication Drug Class(es) Dates Sig (Normalized) Sig (Original) aspirin 81 mg chewable tablet (9 sources) Platelet Aggregation Inhibitor, Nonsteroidal Anti-inflammatory Drug Start: 11-01-2024 atorvastatin 80 mg oral tablet (15 sources) HMG-CoA Reductase Inhibitor Start: 11-01-2024 End: 12-05-2024 Start: 11-01-2024 take 1 tablet by shay th at bedtime Atorvastatin 80 mg Tablet Active 80 mg PO AT BEDTIME 0 0 November 01, 2024 12:00am cholesterol 24 hr buPROPion hydrochloride 300 mg extended release oral tablet (6 sources) Aminoketone Start: 12-05-2024 busPIRone hydrochloride 10 mg oral tablet (6 sources) Start: 12-05-2024 dicyclomine hydrochloride 10 mg oral capsule (1 source) Anticholinergic Start: 02-11-2019 take 1 capsule by mouth three times daily as needed dicyclomine (BENTYL) 10 mg capsule Indications: Altered bowel habits , Generalized abdominal pain Take 1 capsule by mouth three times daily as needed. 90 capsule 3 02/11/2019 Active DULoxetine 30 mg delayed release oral capsule (6 sources) Serotonin and Norepinephrine Reuptake Inhibitor Start: 12-05-2024 gabapentin 100 mg oral capsule (10 sources) Anti-epileptic Agent Start: 12-30-2024 Start: 12-30-2024 Start: 12-05-2024 End: 12-30-2024 lactobacillus acidophilus 460 mg oral capsule (1 source) Start: 11-20-2019 take 1 capsule by mouth once daily Lactobacillus acidophilus (FLORAJEN) 460 mg (20 billion cell) cap Take 1 capsule by mouth once daily. 30 capsule 11/20/2019 Active lisinopril 10 mg oral tablet (15 sources) Angiotensin Converting Enzyme Inhibitor Start: 11-01-2024 End: 12-05-2024 propranolol hydrochloride 40 mg oral tablet (6 sources) beta-Adrenergic Vanita Start: 12-05-2024 tiZANidine 2 mg oral tablet (16 sources) Central alpha-2 Adrenergic Agonist Start: 12-30-2024 Start: 12-30-2024 Start: 12-05-2024 End: 12-30-2024 Start: 11-10-2024 End: 12-05-2024 Completed/Discontinued Medications Medication Drug Class(es) Dates Sig (Normalized) Sig (Original) acetaminophen 325 mg oral tablet (6 sources) Start: 12-05-2024 End: 12-30-2024 acetaminophen 325 mg / HYDROcodone bitartrate 5 mg oral tablet (11 sources) Opioid Agonist Start: 01-25-2018 End: 01-28-2018 Start: 01-25-2018 End: 01-28-2018 Hydrocodone-Acetaminophen 1 TABLET tablet Discontinued 1 {tbl} PO EVERY 6 HOURS NEEDED as needed for Pain 10 3 0 January 25, 2018 12:00am January 27, 2018 12:00am January 28, 2018 12:11am Strain of left shoulder Drug-induced anaphylaxis Anaphylactic shock, unspecified, initial encounter amphetamine aspartate 7.5 mg / amphetamine sulfate 7.5 mg / dextroamphetamine saccharate 7.5 mg / dextroamphetamine sulfate 7.5 mg oral tablet (20 sources) Central Nervous System Stimulant Start: 10-30-2024 End: 11-10-2024 Start: 03-25-2019 take 1 tablet by shay [...] tablet 03/25/2019 Active Start: 07-17-2014 End: 11-01-2024 cloNIDine hydrochloride 0.1 mg oral tablet (11 sources) Central alpha-2 Adrenergic Agonist Start: 11-27-2023 End: 11-01-2024 cyclobenzaprine hydrochlorid e 10 mg oral tablet (9 sources) Muscle Relaxant Start: 11-01-2024 End: 11-10-2024 dexamethasone phosphate 1 mg /ml ophthalmic solution (10 sources) Corticosteroid Start: 10-30-2024 End: 12-05-2024 erythromycin 0.005 mg/mg ophthalmic ointment (10 sources) Macrolide, Macrolide Antimicrobial Start: 10-30-2024 End: 12-05-2024 Start: 10-30-2024 Erythromycin 5 mg/gram (0.5 %) ointment Active 1 NMA OPHTHALMIC EVERY EVENING October 30, 2024 12:00am hydroCHLOROthiazide 12.5 mg oral capsule (9 sources) Thiazide Diuretic Start: 11-01-2024 End: 11-10-2024 loratadine 10 mg oral tablet (12 sources) Start: 01-25-2018 End: 12-30-2024 LORATADINE (CLAR ITIN ORAL) Take by mouth. Active metoprolol tartrate 50 mg or al tablet (8 sources) beta-Adrenergic Vanita Start: 11-10-2024 End: 12-05-2024 Start: 04-09-2019 take 1 tablet by shay th once daily metoprolol succinate ER (TOPROL XL) 50 mg 24 hr tablet Indications: Hypertension, essential Take 1 tablet by mouth once daily. 30 tablet 5 04/09/2019 Active rizatriptan 10 mg oral table t (10 sources) Serotonin-1b and Serotonin-1d Receptor Agonist Start: 10-30-2024 End: 11-01-2024 Problems Active Problems Problem Classification Problem Date Documented Da te Episodic/Chronic Acute cerebrovascular disease (20 sources) Ischemic stroke; Translations: [Cerebral infarction, unspecified] Onset: 12-10-2024 10-30-2024 Chronic Anxiety disorders (17 sources) Anxiety; Translations: [Anxiety disorder, unspecified] Onset: 12-05-2024 12-05-2024 Chronic Attention-deficit, conduct, and disruptive behavior disorders (20 sources) Attention deficit hyperactivity disorder; Translations: [Attention-deficit hyperactivity disorder, unspecified type] 10-30-2024 Chronic Attention-deficit, conduct, and disruptive behavior disorders (1 source) Attention-deficit hyperactivity disorder, unspecified type; Translations: [Attention-deficit hyperactivity disorder, unspecified type] Onset: 12-05-2024 Chronic Cardiac dysrhythmias (20 sources) Ventricular tachycardia; Translations: [Ventricular tachycardia] 11-06-2024 Chronic Conditions associated with dizziness or vertigo (4 sources) Lightheadedness; Translations: [Dizziness and giddiness] 12-26-2024 Episodic Coronary atherosclerosis and other heart disease (2 sources) Unstable angina; Translations: [Unstable angina] Onset: 12-19-2024 Chronic Disorders usually diagnosed in infancy, childhood, or adolescence (1 source) Attention deficit hyperactivity disorder, predominantly inattentive type; Translations: [Other specified behavioral and emotional disorders with onset usually occurring in childhood and adolescence] Onset: 11-12-2013 11-12-2013 Chronic Essential hypertension (20 sources) Essential hypertension; Translations: [Essential (primary) hypertension] Onset: 01-02-2019 01-02-2019 Chronic Headache; including migraine (20 sources) Migraine; Translations: [Migraine, unspecified, not intractable, without status migrainosus] Onset: 11-12-2013 11-12-2013 Chronic Hypertension with complications and secondary hypertension (11 sources) Hypertensive urgency ; Translations: [Hypertensive urgency] 12-05-2023 Chronic Late effects of cerebrovascular disease (19 sources) Depressive disorder; Translations: [Other sequelae of cerebral infarction] Onset: 12-05-2024 12-05-2024 Chronic Malaise and fatigue (20 sources) Muscle weakness; Translations: [Weakness] Onset: 12-05-2024 10-30-2024 Episodic Mood disorders (1 source) Mood disorder due to known physiological condition with depressive features; Translations: [Mood disorder due to known physiological condition with depressive features] Onset: 12-05-2024 Episodic Nonspecific chest pain (20 sources) Chest discomfort; Translations: [Other chest pain] 11-27-2023 Episodic Comment on above: with Inferolateral E KG changes. Other circulatory disease (4 sources) History of cerebrovascular accident; Translations: [Personal history of transient ischemic attack (TIA), and cerebral infarction without residual deficits] 12-26-2024 Episodic Other connective tissue disease (17 sources) Neuralgia and neuritis, unspecified; Translations: [Central neuropathic pain] Onset: 12-05-2024 12-05-2024 Episodic Other gastrointestinal disorders (1 source) Irritable bowel syndrome; Translations: [Mixed irritable bowel syndrome] Onset: 01-02-2019 01-02-2019 Chronic Other hematologic conditions (20 sources) Erythrocytosis; 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] 10-31-2024 Episodic Other hematologic conditions (20 sources) Secondary polycythemia; 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] 12-05-2024 Episodic Other hematologic conditions (2 sources) Secondary polycythemia; 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] Onset: 12-30-2024 Episodic Other nervous system disorders (4 sources) Tremor; Translations: [Tremor, unspecified] 12-26-2024 Episodic Other nervous system disorders (1 source) Tremor, unspecified; Translations: [Tremor, unspecified] Onset: 12-30-2024 Episodic Other nutritional; endocrine; and metabolic disorders (13 sources) Body mass index 25-29 - overweight; Translations: [Overweight] 10-30-2024 Episodic Other nutritional; endocrine; and metabolic disorders (1 source) Overweight; Translations: [Overweight] Onset: 11-06-2024 Episodic Other screening for suspected conditions (not mental disorders or infectious disease) (15 sources) Liver function tests abnormal; Translations: [Other specified abnormal findings of blood chemistry] Onset: 12-05-2024 11-11-2024 Episodic Other upper respiratory disease (16 sources) Allergic rhinitis; Translations: [Allergic rhinitis, unspecified] 11-04-2024 Chronic Other upper respiratory disease (1 source) Allergic rhinitis, unspecified; Translations: [Allergic rhinitis, unspecified] Onset: 11-12-2024 Chronic Paralysis (11 sources) Left hemiplegia; Translations: [Hemiplegia, unspecified affecting left nondominant side] Onset: 11-12-2024 11-01-2024 Chronic Residual codes; unclassified (20 sources) Tobacco user; Translations: [Tobacco use] 10-31-2024 Episodic Residual codes; unclassified (12 sources) Insomnia; Translations: [Insomnia, unspecified] 11-12-2024 Episodic Residual codes; unclassified (1 source) Insomnia, unspecified; Translations: [Insomnia, unspecified] Onset: 12-05-2024 Episodic Residual codes; unclassified (1 source) Tobacco use; Translations: [Tobacco use] Onset: 11-12-2024 Episodic Spondylosis; intervertebral disc disorders; other back problems (13 sources) Neck pain; Translations: [Cervicalgia] Onset: 12-05-2024 11-12-2024 Episodic Sprains and strains (11 sources) Strain of great toe; Translations: [Strain of unspecified muscle and tendon at ankle and foot level, right foot, initial encounter] 08-19-2024 Episodic Substance-related disorders (13 sources) Nicotine dependence; Translations: [Nicotine dependence, unspecified, uncomplicated] Onset: 12-05-2024 12-05-2024 Chronic Substance-related disorders (14 sources) Marijuana user; Translations: [Cannabis use, unspecified, uncomplicated] Onset: 04-15-2019 04-15-2019 Episodic Superficial injury; contusion (11 sources) Contusion of right great toe; Translations: [Contusion of right great toe without damage to nail, initial encounter] 08-19-2024 Episodic Unclassified (3 sources) A referral will be sent to [facility] neurology for follow-up Unclassified (1 source) Ventricular tachycardia, unspecified; Translations: [Ventricular tachycardia, unspecified] Onset: 12-05-2024 Past or Other Problems Problem Classification Problem Date Documented Da te Episodic/Chronic Other connective tissue disease (1 source) Chronic pain of right foot; Translations: [Pain in right toe(s)] Onset: 01-02-2019 01-02-2019 Episodic Other connective tissue disease (1 source) Pain in right foot; Translations: [Pain in right foot] Onset: 08-22-2024 Episodic Residual codes; unclassified (1 source) Finding related to status of agreement with prior finding; Translations: [Controlled substance agreement broken] Onset: 04-15-2019 04-15-2019 Episodic Results Test Name Value Interpretation Reference Range Facility Inital Evaluation (1) - PTon 01-07-2025 Inital Evaluation (1) - PT Normal [facility] OT General Evaluationon OT General Evaluation Normal [facility] PAP IG HPV APTIMA 16/18,45on 01-05-2025 ADEQ Comment Normal . [facility] Comment on above: Order Comment: Speci men Comment: [id number] Comment: Source.............CervixSpecimen Comment: No. of containers..01 ThinPrep Vial Result Comment: Sati sfactory for evaluation. Endocervical and/or squamous metaplasticcells (endocervical component) are present. Performed By: #### L 3410.9992, L7400.0280 ####[facility] [address] [place], [place], [id number] COMM . Normal . [facility] Comment on above: Order Comment: Speci men Comment: [id number] Comment: Source.............CervixSpecimen Comment: No. of containers..01 ThinPrep Vial Performed By: #### L 3410.9992, L7400.0280 ####[facility] [address] [place], [place], [address] COMMENT Comment Normal . [facility] Comment on above: Order Comment: Speci men Comment: [id number] Comment: Source.............CervixSpecimen Comment: No. of containers..01 ThinPrep Vial Result Comment: This liquid based ThinPrep(R) pap test was screened withthe use of an image guided system. Performed By: #### L 3410.9992, L7400.0280 ####[facility] [address] [place], [address] DIAG Comment Normal . [facility] Comment on above: Order Comment: Speci men Comment: [id number] Comment: Source.............CervixSpecimen Comment: No. of containers..01 ThinPrep Vial Result Comment: NEGA TIVE FOR INTRAEPITHELIAL LESION OR MALIGNANCY. Performed By: #### L 3410.9992, L7400.0280 ####[facility] [address] [place], [place], [address] HPV APTIMA, HR Negative Normal Negative [facility] Comment on above: Order Comment: Speci men Comment: [id number] Comment: Source.............CervixSpecimen Comment: No. of containers..01 ThinPrep Vial Result Comment: This nucleic acid amplification test detects fourteen high-risk HPV types (16,18,31,33,35,39,45,51,52,56,58,59,66,68)without differentiation. Performed By: #### L 3410.9992, L7400.0280 ####[facility] [address] [place], [place], [address] HPV Khusih Rfx Comment Normal . [facility] Comment on above: Order Comment: Speci men Comment: [id number] Comment: Source.............CervixSpecimen Comment: No. of containers..01 ThinPrep Vial Result Comment: Crit eria not met, HPV Genotype not performed.Performed at: - [facility] [id number] Director: Mikayla Hardin MD, Phone: [phone] at: = - [facility] [address] [id number] Director: Mikayla Hardin MD, Phone: [phone] Performed By: #### L 3410.9992, L7400.0280 ####[facility] [address] [place], [place], [address] PAPSMR Comment Normal . [facility] Comment on above: Order Comment: Speci men Comment: [id number] Comment: Source.............CervixSpecimen Comment: No. of containers..01 ThinPrep Vial Result Comment: The Pap smear is a screening test designed to aid in thedetection of premalignant and malignant conditions of theuterine cervix. It is not a diagnostic procedure andshould not be used as the sole means of detecting cervicalcancer. Both false-positive and false-negative reports dooccur. Performed By: #### L 3410.9992, L7400.0280 ####[facility] [address] [place], [place], [address] PERFORM Comment Normal . [facility] Comment on above: Order Comment: Speci men Comment: [id number] Comment: Source.............CervixSpecimen Comment: No. of containers..01 ThinPrep Vial Result Comment: Mamie Andrew, Enterprise Engineer (ASCP) Performed By: #### L 3410.9992, L7400.0280 ####[facility] [address] [place], [place], [address] L3410.9992on 01-03-2025 [facility] Misc. COMMENT Normal . [facility] Comment on above: Order Comment: 1NUSWAB VAGINITIS PLUS (VG+) Result Comment: Test Ordered: [id number] NuSwab Vaginitis Plus (VG+)Test(s) 960736- Atopobium vaginae; 838378- BVAB 2;998243- Megasphaera 1was developed and its performance characteristicsdetermined by [facility]. It has not been cleared or approvedby the Food and Drug Administration.Test(s) 989637-Cwspplt albicans, MARIA M; 258753-Lpyrngp glabrata, NAAwas developed and its performance characteristicsdetermined by [facility]. It has not been cleared or approvedby the Food and Drug Administration. Atopobium vaginae Low - 0 Score =G Reference Range: . BVAB 2 Low - 0 Score =G Reference Range: . Megasphaera 1 Low - 0 Score =G Reference Range: .Calculate total score by adding the 3 individual bacterialvaginosis (BV) marker scores together. Total score isinterpreted as follows:Total score 0-1: Indicates the absence of BV.Total score 2: Indeterminate for BV. Additional clinical data should be evaluated to establish a diagnosis.Total score 3-6: Indicates the presence of BV.Valorie albicans, MARIA M Negative =G Reference Range: NegativeCandida glabrata, MARIA M Negative =G Reference Range: NegativeTrich vag by MARIA M Negative =G Reference Range: NegativeChlamydia trachomatis, MARIA M Negative =G Reference Range: NegativeNeisseria gonorrhoeae, MARIA M Negative =G Reference Range: NegativePerformed at: =[address] [place] [id number] Director: Mikayla Hardin MD, Phone: [phone] at: [address] [id number] Director: Dl Campuzano PhD, Phone: [phone] Performed By: #### L 3410.9992, L7400.0280 ####[facility] [address] [place], [address] Erythropoietinon 01-01-2025 ERYTHROPOIETIN 6.5 mIU/mL Normal 2.6-18.5 [facility] Comment on above: Result Comment: [employer] DxI 800 Immunoassay SystemValues obtained with different assay methods or kits cannotbe used interchangeably. Results cannot be interpreted asabsolute evidence of the presence or absence of malignantdisease.Performed at: [address] [id number] Director: Dl Campuzano PhD, Phone: [phone] Performed By: #### L 3100.1350 ####[facility] [address] [place], [place], [address] Cervical or vaginal specimen microscopic examination by liquid based cytology (reportOrdered By: Christelle Nicolas on 12-31-2024 Cytology report Cyto stain.thin prep Doc (Cvx/Vag) Comment . [facility] Cervical or vagninal specime n microscopic examination by cytology stain (reported asOrdered By: Christelle Nicolas on 12-31-2024 Cytology report Cyto stain Doc (Cvx/Vag) Comment . [facility] Detection in cervical specim en of any of human papilloma virus (HPV) 16, 18, 31, 33,Ordered By: Christelle Nicolas on 12-31-2024 HPV 16+18+31+33+35+39+45+5 1+52+56+58+59+66+68 DNA Probe+sig amp Ql (Cvx) Negative Negative [facility] - CytologyOrdered By: Christelle Nicolas on 12-31-2024 Enterprise Engineer Cyto stain Nom (Cvx/Vag) [ID] Comment . [facility] - Miscellaneous t estsOrdered By: Christelle Nicolas on 12-31-2024 Service comment (Unsp spec) [Interp] . . [facility] No Panel InformationOrdered By: Christelle Nicolas on 12-31-2024 Comment . [facility] Absolute lymphocyte countOrd ered By: Shaun Bean on 12-30-2024 Lymphocytes Auto (Unsp spec) [#/Vol] 1.84 10*3/uL 0.83-4.51 [facility] Automated blood erythrocyte countOrdered By: Shaun Aguirrekait on 12-30-2024 RBC (Bld) [#/Vol] 4.76 10*6/uL Normal 4.2-5.4 [facility] Comment on above: Performed By: #### L 100.0100 ####[facility] [address] [place], [place], [address] Automated blood hematocrit ( percentage)Ordered By: Shaun Bean on 12-30-2024 Hematocrit (Bld) [Volume fraction] 44.4 % Normal 37-47 [facility] Comment on above: Performed By: #### L 100.0100 ####[facility] [address] [place], [place], [address] Automated lymphocyte count a s percentage of total leukocytesOrdered By: Shaun Del Angel on 12-30-2024 Lymphocytes/100 WBC Auto (Unsp spec) 24.3 % 19-41 [facility] Basophil percentageOrdered B y: Shaun Aguirrekait on 12-30-2024 Basophils/100 WBC (Bld) 0.5 % Normal 0-1 [facility] Comment on above: Performed By: #### L 100.0100 ####[facility] [address] [place], [place], [address] CBC W/Diff, Automatedon 12-03 Absolute Lymph 1.84 X10 3/uL Normal 0.83-4.51 [facility] Comment on above: Performed By: #### L 100.0100 ####[facility] [address] [place], [address] Absolute Neut 5.0 X10 3/uL Normal 2.0-7.7 [facility] Comment on above: Performed By: #### L 100.0100 ####[facility] [address] [place], [address] IG% 0.400 Normal 0.0-0.9 [facility] Comment on above: Result Comment: IG% - Immature Granulocytes (promyelocytes, myelocytes andmetamyelocytes) > 1% indicates that a LEFT SHIFT is Present. Performed By: #### L 100.0100 ####[facility] [address] [place], [address] Lymphocytes/100 WBC (Bld) 24.3 % Normal 19-41 [facility] Comment on above: Performed By: #### L 100.0100 ####[facility] [address] [place], [address] MCHC (RBC) [Mass/Vol] 32.0 g/dL Normal 32-36 [facility] Comment on above: Performed By: #### L 100.0100 ####[facility] [address] [place], [address] Nucleated RBC (Bld) [#/Vol] 0 10*3/uL Normal 0-5 [facility] Comment on above: Performed By: #### L 100.0100 ####[facility] [address] [place], [address] Platelet mean volume (Bld) [Entitic vol] 9.6 fL Normal 6.2-12.0 [facility] Comment on above: Performed By: #### L 100.0100 ####[facility] [address] [place], [place], [address] RDW SD 40.7 fl Normal 35.1-43.9 [facility] Comment on above: Performed By: #### L 100.0100 ####[facility] [address] [place], [place], [phone] Eosinophil percentageOrdered By: Shaun Del Angel on 12-30-2024 Eosinophils/100 WBC (Bld) 1.5 % Normal 0-5 [facility] Comment on above: Performed By: #### L 100.0100 ####[facility] [address] [place], [phone] Erythrocyte distribution wid th ratioOrdered By: Shaun Del Angel on 12-30-2024 Erythrocyte distribution width (RBC) [Ratio] 11.9 % Normal 11.6-14.6 [facility] Comment on above: Performed By: #### L 100.0100 ####[facility] [address] [place], [place], [address] Erythrocyte distribution wid th standard deviationOrdered By: Shaun Del Angel on 12-30-2024 Erythrocyte distribution width (RBC) [Ratio] 40.7 fl 35.1-43.9 [facility] Hemoglobin measurementOrdere d By: Shaun Del Angel on 12-30-2024 Hemoglobin (Bld) [Mass/Vol] 14.2 g/dL Normal 12.0-15.0 [facility] Comment on above: Performed By: #### L 100.0100 ####[facility] [address] [place], [place], [phone] Immature granulocytes/100 WB C Auto (Bld)Ordered By: Shaun Del Angel on 12-30-2024 Immature granulocytes/100 WBC (Bld) 0.400 % 0.0-0.9 [facility] MCV (mean corpuscular volume ) determinationOrdered By: Shaun Del Angel on 12-30-2024 MCV (RBC) [Entitic vol] 93.3 fL Normal 81-99 [facility] Comment on above: Performed By: #### L 100.0100 ####[facility] [address] [place], [address] Mean corpuscular hemoglobin (MCH) determinationOrdered By: Shaun Del Angel on 12-30-2024 MCH (RBC) [Entitic mass] 29.8 pg Normal 27.0-32.0 [facility] Comment on above: Performed By: #### L 100.0100 ####[facility] [address] [place], [place], [address] Monocyte percentageOrdered B y: Shaun Del Angel on 12-30-2024 Monocytes/100 WBC (Bld) 7.5 % Normal 0-10 [facility] Comment on above: Performed By: #### L 100.0100 ####[facility] [address] [place], [place], [address] Neutrophil percentageOrdered By: Shaun Del Angel on 12-30-2024 Neutrophils/100 WBC (Bld) 65.8 % Normal 47-70 [facility] Comment on above: Performed By: #### L 100.0100 ####[facility] [address] [place], [place], [address] Oncology Visit Reporton 12-03 Oncology Visit Report Normal [facility] Platelet countOrdered By: Radha Del Angel on 12-30-2024 Platelets (Bld) [#/Vol] 300 10*3/uL Normal 150-450 [facility] Comment on above: Performed By: #### L 100.0100 ####[facility] [address] [place], [place], [address] Serum or plasma erythropoiet in (EPO) measurement (units/volume)Ordered By: Shaun Del Angel on 12-30-2024 Erythropoietin (EPO) Qn 6.5 mIU/mL 2.6-18.5 [facility] White blood cell (WBC) count Ordered By: Shaun Del Angel on 12-30-2024 WBC (Bld) [#/Vol] 7.6 10*3/uL Normal 4.4-11.0 [facility] Comment on above: Performed By: #### L 100.0100 ####[facility] [address] [place], [address] Urine Cultureon 12-28-2024 [facility] Mixed Gram Positive Organisms [place] Count 11,000-25,000 [facility] Mixed contaminants. Submit a new specimen if indicated. Normal [facility] Comment on above: Performed By: #### M 100.2200 ####[facility] [address] [place], [address] 12 Lead EKGon 12-26-2024 12 Lead EKG Normal [facility] Absolute lymphocyte countOrd ered By: Mary Corbin on 12-26-2024 Lymphocytes Auto (Unsp spec) [#/Vol] 1.91 10*3/uL 0.83-4.51 [facility] Anion gap in Serum or Plasma Ordered By: Mary Corbin on 12-26-2024 Anion gap [Moles/Vol] 8 mmol/L 5-15 [facility] Automated lymphocyte count a s percentage of total leukocytesOrdered By: Mary Corbin on 12-26-2024 Lymphocytes/100 WBC Auto (Unsp spec) 25.0 % - [facility] BUN/creatinine ratioOrdered By: Mary Corbin on 12-26-2024 Urea nitrogen/Creatinine [Mass ratio] 22.4 mg/mg High 10- [facility] Basic Metabolic Profile (BMP )on 12-26-2024 BUN/CRE 22.4 RATIO High - [facility] Comment on above: Performed By: #### L 100.0100, L500.2500 ####[facility] [address] [place], [address] Calcium [Mass/Vol] 9.0 mg/dL Normal 7.6-11.0 [facility] Comment on above: Performed By: #### L 100.0100, L500.2500 ####[facility] [address] [place], [address] Chloride [Moles/Vol] 104 mmol/L Normal 98-108 [facility] Comment on above: Performed By: #### L 100.0100, L500.2500 ####[facility] [address] [place], [address] CO2 [Moles/Vol] 25.5 mmol/L Normal 21.0-32.0 [facility] Comment on above: Performed By: #### L 100.0100, L500.2500 ####[facility] [address] [place], [address] Creatinine [Mass/Vol] 0.67 mg/dL Low 0.70-1.20 [facility] Comment on above: Performed By: #### L 100.0100, L500.2500 ####[facility] [address] [place], [address] ECRCL 117.54 ml/min Normal 50-250 [facility] Comment on above: Performed By: #### L 100.0100, L500.2500 ####[facility] [address] [place], [address] GAP 8 Normal 5-15 [facility] Comment on above: Performed By: #### L 100.0100, L500.2500 ####[facility] [address] [place], [address] GFR/1.73 sq M.predicted among non-blacks MDRD (S/P/Bld) [Vol rate/Area] 113 mL/min/{1.73_m2} Normal >60 [facility] Comment on above: Result Comment: mL/m in/1.73m2 CKD-EPI Creatinine Equation (2020) Performed By: #### L 100.0100, L500.2500 ####[facility] [address] [place], [address] Glucose [Mass/Vol] 84 mg/dL Normal 70-99 [facility] Comment on above: Performed By: #### L 100.0100, L500.2500 ####[facility] [address] [place], [address] Potassium [Moles/Vol] 4.1 mmol/L Normal 3.3-5.1 [facility] Comment on above: Performed By: #### L 100.0100, L500.2500 ####[facility] [address] [place], [address] Sodium [Moles/Vol] 138 mmol/L Normal 133-145 [facility] Comment on above: Performed By: #### L 100.0100, L500.2500 ####[facility] [address] [place], [address] Urea nitrogen [Mass/Vol] 15 mg/dL Normal 4-19 [facility] Comment on above: Performed By: #### L 100.0100, L500.2500 ####[facility] [address] [place], [address] Basophil percentageOrdered B y: Mary Corbin on 12-26-2024 Basophils/100 WBC (Bld) 0.8 % 0-1 [facility] Bedside Glucoseon 12-26-2024 FINGERSTICK GLU 106 mg/dL Normal 74-106 [facility] Comment on above: Result Comment: KIARA ADAME OF PATIENT CARE PER NURSING PROTOCOL Performed By: #### L 501.080 ####[facility] [address] [place], [address] Bilirubin Test strip Ql (U)O rdered By: Mary Corbin on 12-26-2024 Bilirubin Ql (U) Negative Negative [facility] Brain/Head without Contrasto n 12-26-2024 Brain/Head without Contrast Normal [facility] CBC W/Diff, Automatedon 12-03 Absolute Lymph 1.91 X10 3/uL Normal 0.83-4.51 [facility] Comment on above: Performed By: #### L 100.0100, L500.2500 ####[facility] [address] [place], [address] Absolute Neut 4.8 X10 3/uL Normal 2.0-7.7 [facility] Comment on above: Performed By: #### L 100.0100, L500.2500 ####[facility] [address] [place], [address] Basophils/100 WBC (Bld) 0.8 % Normal 0-1 [facility] Comment on above: Performed By: #### L 100.0100, L500.2500 ####[facility] [address] [place], [address] Eosinophils/100 WBC (Bld) 1.2 % Normal 0-5 [facility] Comment on above: Performed By: #### L 100.0100, L500.2500 ####[facility] [address] [place], [address] Erythrocyte distribution width (RBC) [Ratio] 12.1 % Normal 11.6-14.6 [facility] Comment on above: Performed By: #### L 100.0100, L500.2500 ####[facility] [address] [place], [address] Hematocrit (Bld) [Volume fraction] 43.3 % Normal 37-47 [facility] Comment on above: Performed By: #### L 100.0100, L500.2500 ####[facility] [address] [place], [address] Hemoglobin (Bld) [Mass/Vol] 14.1 g/dL Normal 12.0-15.0 [facility] Comment on above: Performed By: #### L 100.0100, L500.2500 ####[facility] [address] [place], [address] IG% 0.500 Normal 0.0-0.9 [facility] Comment on above: Result Comment: IG% - Immature Granulocytes (promyelocytes, myelocytes andmetamyelocytes) > 1% indicates that a LEFT SHIFT is Present. Performed By: #### L 100.0100, L500.2500 ####[facility] [address] [place], [address] Lymphocytes/100 WBC (Bld) 25.0 % Normal 19-41 [facility] Comment on above: Performed By: #### L 100.0100, L500.2500 ####[facility] [address] [place], [address] MCH (RBC) [Entitic mass] 30.5 pg Normal 27.0-32.0 [facility] Comment on above: Performed By: #### L 100.0100, L500.2500 ####[facility] [address] [place], [address] MCHC (RBC) [Mass/Vol] 32.6 g/dL Normal 32-36 [facility] Comment on above: Performed By: #### L 100.0100, L500.2500 ####[facility] [address] [place], [address] MCV (RBC) [Entitic vol] 93.5 fL Normal 81-99 [facility] Comment on above: Performed By: #### L 100.0100, L500.2500 ####[facility] [address] [place], [address] Monocytes/100 WBC (Bld) 9.2 % Normal 0-10 [facility] Comment on above: Performed By: #### L 100.0100, L500.2500 ####[facility] [address] [place], [address] Neutrophils/100 WBC (Bld) 63.3 % Normal 47-70 [facility] Comment on above: Performed By: #### L 100.0100, L500.2500 ####[facility] [address] [place], [address] Nucleated RBC (Bld) [#/Vol] 0 10*3/uL Normal 0-5 [facility] Comment on above: Performed By: #### L 100.0100, L500.2500 ####[facility] [address] [place], [address] Platelet mean volume (Bld) [Entitic vol] 9.8 fL Normal 6.2-12.0 [facility] Comment on above: Performed By: #### L 100.0100, L500.2500 ####[facility] [address] [place], [address] Platelets (Bld) [#/Vol] 337 10*3/uL Normal 150-450 [facility] Comment on above: Performed By: #### L 100.0100, L500.2500 ####[facility] [address] [place], [address] RBC (Bld) [#/Vol] 4.63 10*6/uL Normal 4.2-5.4 [facility] Comment on above: Performed By: #### L 100.0100, L500.2500 ####[facility] [address] [place], [address] RDW SD 42.1 fl Normal 35.1-43.9 [facility] Comment on above: Performed By: #### L 100.0100, L500.2500 ####[facility] [address] [place], [address] WBC (Bld) [#/Vol] 7.6 10*3/uL Normal 4.4-11.0 [facility] Comment on above: Performed By: #### L 100.0100, L500.2500 ####[facility] [address] [place], [address] Carbon dioxide, total [Moles /volume] in Central venous bloodOrdered By: Mary Corbin on 12-26-2024 CO2 [Moles/Vol] 25.5 mmol/L 21.0-32.0 [facility] Chloride assayOrdered By: Vinh Corbin on 12-26-2024 Chloride [Moles/Vol] 104 mmol/L 98-108 [facility] Electrocardiogram reportOrde red By: Law Eduardo on 12-26-2024 EKG study [facility] Work Phone: Emergency Department Summary on 12-26-2024 Emergency Department Summary Normal [facility] Eosinophil percentageOrdered By: Mary Corbin on 12-26-2024 Eosinophils/100 WBC (Bld) 1.2 % 0-5 [facility] Erythrocyte distribution wid th ratioOrdered By: Mary Corbin on 12-26-2024 Erythrocyte distribution width (RBC) [Ratio] 12.1 % 11.6-14.6 [facility] Erythrocyte distribution wid th standard deviationOrdered By: Mary Corbin on 12-26-2024 Erythrocyte distribution width (RBC) [Ratio] 42.1 fl 35.1-43.9 [facility] Glomerular filtration rate ( GFR) estimation/1.73 sq m using serum, plasma, or whole bOrdered By: Mary Corbin on 12-26-2024 GFR/1.73 sq M.predicted among non-blacks MDRD (S/P/Bld) [Vol rate/Area] 113 mL/min/{1.73_m2} >60 [facility] deOrdered By[facility] ED PROVIDER on 12-26-2024 Glucose [Mass/Vol] 106 mg/dL 74-106 [facility] Hematocrit Auto (Bld) [Volum e fraction]Ordered By: Mary Corbin on 12-26-2024 Hematocrit (Bld) [Volume fraction] 43.3 % 37-47 [facility] Hemoglobin measurementOrdere d By: Mary Corbin on 12-26-2024 Hemoglobin (Bld) [Mass/Vol] 14.1 g/dL 12.0-15.0 [facility] Immature granulocytes/100 WB C Auto (Bld)Ordered By: Mary Corbin on 12-26-2024 Immature granulocytes/100 WBC (Bld) 0.500 % 0.0-0.9 [facility] Ketones Test strip Ql (U)Ord ered By: Mary Corbin on 12-26-2024 Ketones Ql (U) Negative Negative [facility] MCV (mean corpuscular volume ) determinationOrdered By: Mary Corbin on 12-26-2024 MCV (RBC) [Entitic vol] 93.5 fL 81-99 [facility] Mean corpuscular hemoglobin (MCH) determinationOrdered By: Mary Corbin on 12-26-2024 MCH (RBC) [Entitic mass] 30.5 pg 27.0-32.0 [facility] Monocyte percentageOrdered B y: Mary Corbin on 12-26-2024 Monocytes/100 WBC (Bld) 9.2 % 0-10 [facility] Mucus LM Ql (Urine sed)Order ed By: Mary Corbin on 12-26-2024 Mucus Ql (Urine sed) 0 SEEN /hpf [facility] Neutrophil percentageOrdered By: Mary Corbin on 12-26-2024 Neutrophils/100 WBC (Bld) 63.3 % 47-70 [facility] Nitrite Test strip Ql (U)Ord ered By: Mary Corbin on 12-26-2024 Nitrite Ql (U) Negative Negative [facility] Platelet countOrdered By: Vinh Corbin on 12-26-2024 Platelets (Bld) [#/Vol] 337 10*3/uL 150-450 [facility] Potassium measurement (mass/ volume)Ordered By: Mary Corbin on 12-26-2024 Potassium (Unsp spec) [Mass/Vol] 4.1 mmol/L 3.3-5.1 [facility] Protein Test strip Ql (U)Ord ered By: Mary Corbin on 12-26-2024 Protein Ql (U) Negative Negative [facility] RBC Auto (Bld) [#/Vol]Ordere d By: Mary Corbin on 12-26-2024 RBC (Bld) [#/Vol] 4.63 10*6/uL 4.2-5.4 [facility] Serum creatinine measurement (mass/volume)Ordered By: Mary Corbin on 12-26-2024 Creatinine [Mass/Vol] 0.67 mg/dL Low 0.70-1.20 [facility] Serum glucose measurement (m ass/volume)Ordered By: Mary Corbin on 12-26-2024 Glucose [Mass/Vol] 84 mg/dL 70-99 [facility] Serum or plasma calcium sasha urement (mass/volume)Ordered By: Mary Corbin on 12-26-2024 Calcium [Mass/Vol] 9.0 mg/dL 7.6-11.0 [facility] Serum or plasma urea nitroge n measurement (mass/volume)Ordered By: Mary Corbin on 12-26-2024 Urea nitrogen [Mass/Vol] 15 mg/dL 4-19 [facility] Sodium levelOrdered By: Madyson Corbin on 12-26-2024 Sodium [Moles/Vol] 138 mmol/L 133-145 [facility] Squamous epithelial cells de tection in urine sediment by light microscopyOrdered By: Mary Corbin on 12-26-2024 Epithelial cells.squamous LM Ql (Urine sed) 0-5 SEEN /hpf 5-10 [facility] Urinalysis, Completeon 12-26 WBC 0-5 SEEN Normal 0-5 [facility] Comment on above: Order Comment: CLEAN CATCH Performed By: #### L 400.0001 ####[facility] [address] [place], [address] EPI,SQUAMOUS 0-5 SEEN Normal 5-10 [facility] Comment on above: Order Comment: CLEAN CATCH Performed By: #### L 400.0001 ####[facility] [address] [place], [address] BACTERIA 0 SEEN Normal None Seen [facility] Comment on above: Order Comment: CLEAN CATCH Performed By: #### L 400.0001 ####[facility] [address] [place], [address] Mucus Ql (Urine sed) 0 SEEN Normal [facility] Comment on above: Order Comment: CLEAN CATCH Performed By: #### L 400.0001 ####[facility] [address] [place], [address] RBC 0 SEEN Normal 0-5 [facility] Comment on above: Order Comment: CLEAN CATCH Performed By: #### L 400.0001 ####[facility] [address] [place], [address] Urine clarityOrdered By: Carmen Corbin on 12-26-2024 Clarity (U) Clear Clear [facility] Urine color determinationOrd ered By: Mary Corbin on 12-26-2024 Color (U) Yellow Yellow [facility] Urine cultureOrdered By: Carmen Corbin on 12-26-2024 Bacteria identified Cx Nom (U) Positive Abnormal [facility] Urine glucose detectionOrder ed By: Mary Corbin on 12-26-2024 Glucose Ql (U) Normal mg/dl Normal [facility] Urine leukocyte esterase det ection by dipstickOrdered By: Mary Corbin on 12-26-2024 Leukocyte esterase Test strip Ql (U) 100 /ul High Negative [facility] Urine pHOrdered By: Mary menezes on 12-26-2024 pH (U) 6.5 [pH] 5.0 - 8.0 [facility] Urine sediment bacteria coun t by microscopy (number/high power field)Ordered By: Mary Corbin on 12-26-2024 Bacteria LM.HPF (Urine sed) [#/Area] 0 /[HPF] None Seen [facility] Urine specific gravity measu rementOrdered By: Mary Corbin on 12-26-2024 Specific gravity (U) [Rel density] 1.010 1.002-1.03 0 [facility] Urine urobilinogen measureme ntOrdered By: Mary Corbin on 12-26-2024 Urobilinogen Ql (U) Normal mg/dl Normal [facility] White blood cell (WBC) count Ordered By: Mary Corbin on 12-26-2024 WBC (Bld) [#/Vol] 7.6 10*3/uL 4.4-11.0 [facility] White blood cell countOrdere d By: Mary Corbin on 12-26-2024 White blood cell count 0-5 SEEN /hpf 0-5 [facility] Absolute lymphocyte countOrd ered By: [facility] Torri Zapata on 12-24-2024 Lymphocytes Auto (Unsp spec) [#/Vol] 1.37 10*3/uL 0.83-4.51 [facility] Anion gap in Serum or Plasma Ordered By: [facility] Torri Zapata on 12-24-2024 Anion gap [Moles/Vol] 13 mmol/L 5-15 [facility] Automated lymphocyte count a s percentage of total leukocytesOrdered By: [facility] Torri Zapata on 12-24-2024 Lymphocytes/100 WBC Auto (Unsp spec) 28.0 % 19-41 [facility] BUN/creatinine ratioOrdered By: [facility] Torri Zapata on 12-24-2024 Urea nitrogen/Creatinine [Mass ratio] 21.5 mg/mg High 10-20 [facility] Basophil percentageOrdered B y: [facility] Torri Zapata on 12-24-2024 Basophils/100 WBC (Bld) 0.4 % 0-1 [facility] Bilirubin, totalOrdered By: [facility] Torri Zapata on 12-24-2024 Bilirubin [Mass/Vol] 0.32 mg/dL 0.00-1.30 [facility] CBC W/Diff, Automatedon 12-03 PLT EST ADEQUATE Normal ADEQ [facility] Comment on above: Performed By: #### L 501.9520, L506.1001, L100.0100, L500.4050 ####[facility] [address] [place], [place], [id number] Carbon dioxide, total [Moles /volume] in Central venous bloodOrdered By: [facility] Torri Zapata on 12-24-2024 CO2 [Moles/Vol] 21.8 mmol/L 21.0-32.0 [facility] Chloride assayOrdered By: [facility] Torri Zapata on 12-24-2024 Chloride [Moles/Vol] 104 mmol/L 98-108 [facility] Comprehensive Metabolic Prof ilon 09-23-2025 Albumin [Mass/Vol] 4.1 g/dL Normal 3.5-5.0 [facility] Comment on above: Order Comment: FAXRE SULTS TO [phone] Performed By: #### L 501.9520, L506.1001, L100.0100, L500.4050 ####[facility] [address] [place], [address] Albumin/Globulin [Mass ratio] 1.7 {ratio} Normal 0.9-2.4 [facility] Comment on above: Order Comment: FAXRE SULTS TO [phone] Performed By: #### L 501.9520, L506.1001, L100.0100, L500.4050 ####[facility] [address] [place], [address] ALK PHOS 87 U/L Normal 35-104 [facility] Comment on above: Order Comment: FAXRE SULTS TO [phone] Performed By: #### L 501.9520, L506.1001, L100.0100, L500.4050 ####[facility] [address] [place], [address] ALT [Catalytic activity/Vol] 26 U/L Normal <=34 [facility] Comment on above: Order Comment: FAXRE SULTS TO [phone] Performed By: #### L 501.9520, L506.1001, L100.0100, L500.4050 ####[facility] [address] [place], [address] AST [Catalytic activity/Vol] 21 U/L Normal <=31 [facility] Comment on above: Order Comment: FAXRE SULTS TO [phone] Result Comment: Hemo lysis present, Results??could be affected.?? Performed By: #### L 501.9520, L506.1001, L100.0100, L500.4050 ####[facility] [address] [place], [address] Bilirubin [Mass/Vol] 0.32 mg/dL Normal 0.00-1.30 [facility] Comment on above: Order Comment: FAXRE SULTS TO [phone] Performed By: #### L 501.9520, L506.1001, L100.0100, L500.4050 ####[facility] [address] [place], [address] BUN/CRE 21.5 RATIO High 10-20 [facility] Comment on above: Order Comment: FAXRE SULTS TO [phone] Performed By: #### L 501.9520, L506.1001, L100.0100, L500.4050 ####[facility] [address] [place], [address] Calcium [Mass/Vol] 8.9 mg/dL Normal 7.6-11.0 [facility] Comment on above: Order Comment: FAXRE SULTS TO [phone] Performed By: #### L 501.9520, L506.1001, L100.0100, L500.4050 ####[facility] [address] [place], [address] Chloride [Moles/Vol] 104 mmol/L Normal 98-108 [facility] Comment on above: Order Comment: FAXRE SULTS TO [phone] Performed By: #### L 501.9520, L506.1001, L100.0100, L500.4050 ####[facility] [address] [place], [address] CO2 [Moles/Vol] 21.8 mmol/L Normal 21.0-32.0 [facility] Comment on above: Order Comment: FAXRE SULTS TO [phone] Performed By: #### L 501.9520, L506.1001, L100.0100, L500.4050 ####[facility] [address] [place], [address] Creatinine [Mass/Vol] 0.60 mg/dL Low 0.70-1.20 [facility] Comment on above: Order Comment: FAXRE SULTS TO [phone] Performed By: #### L 501.9520, L506.1001, L100.0100, L500.4050 ####[facility] [address] [place], [address] GAP 13 Normal 5-15 [facility] Comment on above: Order Comment: FAXRE SULTS TO [phone] Performed By: #### L 501.9520, L506.1001, L100.0100, L500.4050 ####[facility] [address] [place], [address] GFR/1.73 sq M.predicted among non-blacks MDRD (S/P/Bld) [Vol rate/Area] 116 mL/min/{1.73_m2} Normal >60 [facility] Comment on above: Order Comment: FAXRE SULTS TO [phone] Result Comment: mL/m in/1.73m2 CKD-EPI Creatinine Equation (2020) Performed By: #### L 501.9520, L506.1001, L100.0100, L500.4050 ####[facility] [address] [place], [address] Globulin (S) [Mass/Vol] 2.4 g/dL Normal 2.2-4.2 [facility] Comment on above: Order Comment: FAXRE SULTS TO [phone] Performed By: #### L 501.9520, L506.1001, L100.0100, L500.4050 ####[facility] [address] [place], [address] Glucose [Mass/Vol] 84 mg/dL Normal 70-99 [facility] Comment on above: Order Comment: FAXRE SULTS TO [phone] Performed By: #### L 501.9520, L506.1001, L100.0100, L500.4050 ####[facility] [address] [place], [address] Potassium [Moles/Vol] 4.3 mmol/L Normal 3.3-5.1 [facility] Comment on above: Order Comment: FAXRE SULTS TO [phone] Result Comment: Hemo lysis present, Results??could be affected.?? Performed By: #### L 501.9520, L506.1001, L100.0100, L500.4050 ####[facility] [address] [place], [address] Sodium [Moles/Vol] 138 mmol/L Normal 133-145 [facility] Comment on above: Order Comment: FAXRE SULTS TO [phone] Performed By: #### L 501.9520, L506.1001, L100.0100, L500.4050 ####[facility] [address] [place], [address] T PROT 6.4 g/dL Normal 5.9-8.4 [facility] Comment on above: Order Comment: FAXRE SULTS TO [phone] Performed By: #### L 501.9520, L506.1001, L100.0100, L500.4050 ####[facility] [address] [place], [address] Urea nitrogen [Mass/Vol] 13 mg/dL Normal 4-19 [facility] Comment on above: Order Comment: FAXRE SULTS TO [phone] Performed By: #### L 501.9520, L506.1001, L100.0100, L500.4050 ####[facility] [address] [place], [address] Eosinophil percentageOrdered By: [facility] Torri Zapata on 12-24-2024 Eosinophils/100 WBC (Bld) 1.4 % 0-5 [facility] Erythrocyte distribution wid th ratioOrdered By: [facility] Torri Zapata on 12-24-2024 Erythrocyte distribution width (RBC) [Ratio] 11.9 % 11.6-14.6 [facility] Erythrocyte distribution wid th standard deviationOrdered By: [facility] Torri Zapata on 12-24-2024 Erythrocyte distribution width (RBC) [Ratio] 41.1 fl 35.1-43.9 [facility] Glomerular filtration rate ( GFR) estimation/1.73 sq m using serum, plasma, or whole bOrdered By: [facility] Torri Zapata on 12-24-2024 GFR/1.73 sq M.predicted among non-blacks MDRD (S/P/Bld) [Vol rate/Area] 116 mL/min/{1.73_m2} >60 [facility] Hematocrit Auto (Bld) [Volum e fraction]Ordered By: [facility] Torri Zapata on 12-24-2024 Hematocrit (Bld) [Volume fraction] 40.4 % 37-47 [facility] Hemoglobin measurementOrdere d By: [facility] Torri Zapata on 12-24-2024 Hemoglobin (Bld) [Mass/Vol] 13.3 g/dL 12.0-15.0 [facility] Immature granulocytes/100 WB C Auto (Bld)Ordered By: [facility] Torri Zapata on 12-24-2024 Immature granulocytes/100 WBC (Bld) 0.200 % 0.0-0.9 [facility] MCV (mean corpuscular volume ) determinationOrdered By: [facility] Torri Zapata on 12-24-2024 MCV (RBC) [Entitic vol] 93.1 fL 81-99 [facility] Mean corpuscular hemoglobin (MCH) determinationOrdered By: [facility] Torri Zapata on 12-24-2024 MCH (RBC) [Entitic mass] 30.6 pg 27.0-32.0 [facility] Monocyte percentageOrdered B y: [facility] Torri Zapata on 12-24-2024 Monocytes/100 WBC (Bld) 8.0 % 0-10 [facility] Neutrophil percentageOrdered By: [facility] Torri Zapata on 12-24-2024 Neutrophils/100 WBC (Bld) 62.0 % 47-70 [facility] No Panel InformationOrdered By: [facility] Torri Zapata on 12-24-2024 21 U/L <32 [facility] Platelet countOrdered By: Yuna Zapata on 12-24-2024 Platelet count TNP [facility] Platelet estimateOrdered By: [facility] Torri Zapata on 12-24-2024 Platelets LM Ql (Bld) ADEQUATE ADEQ [facility] Potassium measurement (mass/ volume)Ordered By: [facility] Torri Zapata on 12-24-2024 Potassium (Unsp spec) [Mass/Vol] 4.3 mmol/L 3.3-5.1 [facility] RBC Auto (Bld) [#/Vol]Ordere d By: [facility] Torri Zapata on 12-24-2024 RBC (Bld) [#/Vol] 4.34 10*6/uL 4.2-5.4 [facility] Serum creatinine measurement (mass/volume)Ordered By: [facility] Torri Zapata on 12-24-2024 Creatinine [Mass/Vol] 0.60 mg/dL Low 0.70-1.20 [facility] Serum globulin measurementOr dered By: [facility] Torri Zapata on 12-24-2024 Globulin (S) [Mass/Vol] 2.4 g/dL 2.2-4.2 [facility] Serum glucose measurement (m ass/volume)Ordered By: [facility] Torri Zapata on 12-24-2024 Glucose [Mass/Vol] 84 mg/dL 70-99 [facility] Serum or plasma alanine quintana otransferase (ALT) measurementOrdered By: [facility] Torri Zapata on 12-24-2024 ALT [Catalytic activity/Vol] 26 U/L <35 [facility] Serum or plasma albumin sasha urement (mass/volume)Ordered By: [facility] Torri Zapata on 12-24-2024 Albumin [Mass/Vol] 4.1 g/dL 3.5-5.0 [facility] Serum or plasma albumin/glob ulin mass ratioOrdered By: [facility] Torri Zapata on 12-24-2024 Albumin/Globulin [Mass ratio] 1.7 {ratio} 0.9-2.4 [facility] Serum or plasma alkaline malvin sphatase measurementOrdered By: [facility] Torri Zapata on 12-24-2024 ALP [Catalytic activity/Vol] 87 U/L 35-104 [facility] Serum or plasma calcium sasha urement (mass/volume)[facility] on 12-24-2024 Calcium [Mass/Vol] 8.9 mg/dL 7.6-11.0 [facility] Serum or plasma urea nitroge n measurement (mass/volume)Ordered By: [facility] on 12-24-2024 Urea nitrogen [Mass/Vol] 13 mg/dL 4-19 [facility] Sodium levelOrdered By: [facility] on 12-24-2024 Sodium [Moles/Vol] 138 mmol/L 133-145 [facility] TSH DL <= 0.005 mIU/L QnOrde red By: [facility] on 12-24-2024 TSH Qn 2.410 uIU/mL 0.300-4.20 0 [facility] Thyroid Stim Hormone (TSH)on 12-24-2024 TSH 2.410 uIU/mL Normal 0.300-4.20 0 [facility] Comment on above: Order Comment: PIERRE EVANS TO [phone] Performed By: #### L 501.9520, L506.1001, L100.0100, L500.4050 ####[facility] [address] [place], [place], [id number] Total proteinOrdered By: [facility] Torri Zapata on 12-24-2024 Protein [Mass/Vol] 6.4 g/dL 5.9-8.4 [facility] Vitamin D,25 Hydroxyon 12-24 Vitamin D 25-OH 13.3 ng/mL Low 30-100 [facility] Comment on above: Order Comment: PIERRE EVANS TO [phone] Result Comment: Stephanie min D StatusDeficiency: <20 ng/mL (50nmol/L)Insufficiency: 20-30 ng/mL (50-75 nmol/L)Sufficiency: 30-100 ng/mL (75-250 nmol/L)Toxicity: >100 ng/mL (>250 nmol/L) Performed By: #### L 501.9520, L506.1001, L100.0100, L500.4050 ####[facility] [address] [place], [address] White blood cell (WBC) count Ordered By: [facility] Torri Zapata on 12-24-2024 WBC (Bld) [#/Vol] 4.9 10*3/uL 4.4-11.0 [facility] Neurology Visit Reporton Neurology Visit Report Normal [facility] Anion gap in Serum or Plasma Ordered By: Netta Domingo on 12-03-2024 Anion gap [Moles/Vol] 9 mmol/L - [facility] BUN/creatinine ratioOrdered By: Netta Domingo on 12-03-2024 Urea nitrogen/Creatinine [Mass ratio] 13.8 mg/mg - [facility] Basic Metabolic Profile (BMP )on 12-03-2024 BUN/CRE 13.8 RATIO Normal 01-20 [facility] Comment on above: Performed By: #### L 100.0500, L500.2500 ####[facility] [address] [place], [address] Calcium [Mass/Vol] 8.9 mg/dL Normal 7.6-11.0 [facility] Comment on above: Performed By: #### L 100.0500, L500.2500 ####[facility] [address] [place], [address] Chloride [Moles/Vol] 105 mmol/L Normal 98-108 [facility] Comment on above: Performed By: #### L 100.0500, L500.2500 ####[facility] [address] [place], [address] CO2 [Moles/Vol] 23.5 mmol/L Normal 21.0-32.0 [facility] Comment on above: Performed By: #### L 100.0500, L500.2500 ####[facility] [address] [place], [address] Creatinine [Mass/Vol] 0.64 mg/dL Low 0.70-1.20 [facility] Comment on above: Performed By: #### L 100.0500, L500.2500 ####[facility] [address] [place], [address] ECRCL 117.64 ml/min Normal 50-250 [facility] Comment on above: Performed By: #### L 100.0500, L500.2500 ####[facility] [address] [place], [address] GAP 9 Normal 5-15 [facility] Comment on above: Performed By: #### L 100.0500, L500.2500 ####[facility] [address] [place], [address] GFR/1.73 sq M.predicted among non-blacks MDRD (S/P/Bld) [Vol rate/Area] 114 mL/min/{1.73_m2} Normal >60 [facility] Comment on above: Result Comment: mL/m in/1.73m2 CKD-EPI Creatinine Equation (2020) Performed By: #### L 100.0500, L500.2500 ####[facility] [address] [place], [address] Glucose [Mass/Vol] 107 mg/dL High 70-99 [facility] Comment on above: Performed By: #### L 100.0500, L500.2500 ####[facility] [address] [place], [address] Potassium [Moles/Vol] 3.9 mmol/L Normal 3.3-5.1 [facility] Comment on above: Performed By: #### L 100.0500, L500.2500 ####[facility] [address] [place], [address] Sodium [Moles/Vol] 137 mmol/L Normal 133-145 [facility] Comment on above: Performed By: #### L 100.0500, L500.2500 ####[facility] [address] [place], [address] Urea nitrogen [Mass/Vol] 9 mg/dL Normal 4-19 [facility] Comment on above: Performed By: #### L 100.0500, L500.2500 ####[facility] [address] [place], [address] CBC-Complete Blood Cnt No Di ffon 12-03-2024 Erythrocyte distribution width (RBC) [Ratio] 12.4 % Normal 11.6-14.6 [facility] Comment on above: Performed By: #### L 100.0500, L500.2500 ####[facility] [address] [place], [address] Hematocrit (Bld) [Volume fraction] 39.2 % Normal 37-47 [facility] Comment on above: Performed By: #### L 100.0500, L500.2500 ####[facility] [address] [place], [address] Hemoglobin (Bld) [Mass/Vol] 12.9 g/dL Normal 12.0-15.0 [facility] Comment on above: Performed By: #### L 100.0500, L500.2500 ####[facility] [address] [place], [address] MCH (RBC) [Entitic mass] 30.9 pg Normal 27.0-32.0 [facility] Comment on above: Performed By: #### L 100.0500, L500.2500 ####[facility] [address] [place], [address] MCHC (RBC) [Mass/Vol] 32.9 g/dL Normal 32-36 [facility] Comment on above: Performed By: #### L 100.0500, L500.2500 ####[facility] [address] [place], [address] MCV (RBC) [Entitic vol] 93.8 fL Normal 81-99 [facility] Comment on above: Performed By: #### L 100.0500, L500.2500 ####[facility] [address] [place], [address] Platelet mean volume (Bld) [Entitic vol] 10.0 fL Normal 6.2-12.0 [facility] Comment on above: Performed By: #### L 100.0500, L500.2500 ####[facility] [address] [place], [address] Platelets (Bld) [#/Vol] 243 10*3/uL Normal 150-450 [facility] Comment on above: Performed By: #### L 100.0500, L500.2500 ####[facility] [address] [place], [address] RBC (Bld) [#/Vol] 4.18 10*6/uL Low 4.2-5.4 [facility] Comment on above: Performed By: #### L 100.0500, L500.2500 ####[facility] [address] [place], [address] RDW SD 42.5 fl Normal 35.1-43.9 [facility] Comment on above: Performed By: #### L 100.0500, L500.2500 ####[facility] [address] [place], [address] WBC (Bld) [#/Vol] 8.1 10*3/uL Normal 4.4-11.0 [facility] Comment on above: Performed By: #### L 100.0500, L500.2500 ####[facility] [address] [place], [place], [id number] Carbon dioxide, total [Moles /volume] in Central venous bloodOrdered By: Netta Domingo on 12-03-2024 CO2 [Moles/Vol] 23.5 mmol/L 21.0-32.0 [facility] Chloride assayOrdered By: Bakari Domingo on 12-03-2024 Chloride [Moles/Vol] 105 mmol/L 98-108 [facility] Erythrocyte distribution wid th ratioOrdered By: Netta Domingo on 12-03-2024 Erythrocyte distribution width (RBC) [Ratio] 12.4 % 11.6-14.6 [facility] Erythrocyte distribution wid th standard deviationOrdered By: Netta Domingo on 12-03-2024 Erythrocyte distribution width (RBC) [Ratio] 42.5 fl 35.1-43.9 [facility] Glomerular filtration rate ( GFR) estimation/1.73 sq m using serum, plasma, or whole bOrdered By: Netta Domingo on 12-03-2024 GFR/1.73 sq M.predicted among non-blacks MDRD (S/P/Bld) [Vol rate/Area] 114 mL/min/{1.73_m2} >60 [facility] Hematocrit Auto (Bld) [Volum e fraction]Ordered By: Netta Domingo on 12-03-2024 Hematocrit (Bld) [Volume fraction] 39.2 % 37-47 [facility] Hemoglobin measurementOrdere d By: Netta Domingo on 12-03-2024 Hemoglobin (Bld) [Mass/Vol] 12.9 g/dL 12.0-15.0 [facility] MCV (mean corpuscular volume ) determinationOrdered By: Netta Domingo on 12-03-2024 MCV (RBC) [Entitic vol] 93.8 fL 81-99 [facility] Mean corpuscular hemoglobin (MCH) determinationOrdered By: Netta Domingo on 12-03-2024 MCH (RBC) [Entitic mass] 30.9 pg 27.0-32.0 [facility] Platelet countOrdered By: Bakari Domingo on 12-03-2024 Platelets (Bld) [#/Vol] 243 10*3/uL 150-450 [facility] Potassium measurement (mass/ volume)Ordered By: Netta Mendozamilton on 12-03-2024 Potassium (Unsp spec) [Mass/Vol] 3.9 mmol/L 3.3-5.1 [facility] RBC Auto (Bld) [#/Vol]Ordere d By: Netta Mendozamilton on 12-03-2024 RBC (Bld) [#/Vol] 4.18 10*6/uL Low 4.2-5.4 [facility] Serum creatinine measurement (mass/volume)Ordered By: Netta Chayo on 12-03-2024 Creatinine [Mass/Vol] 0.64 mg/dL Low 0.70-1.20 [facility] Serum glucose measurement (m ass/volume)Ordered By: Netta Chayo on 12-03-2024 Glucose [Mass/Vol] 107 mg/dL High 70-99 [facility] Serum or plasma calcium sasha urement (mass/volume)Ordered By: Netta Chayo on 12-03-2024 Calcium [Mass/Vol] 8.9 mg/dL 7.6-11.0 [facility] Serum or plasma urea nitroge n measurement (mass/volume)Ordered By: Netta Chayo on 12-03-2024 Urea nitrogen [Mass/Vol] 9 mg/dL 07-20 [facility] Sodium levelOrdered By: Netta Mendozamilton on 12-03-2024 Sodium [Moles/Vol] 137 mmol/L 133-145 [facility] White blood cell (WBC) count Ordered By: Netta Mendozamilton on 12-03-2024 WBC (Bld) [#/Vol] 8.1 10*3/uL 4.4-11.0 [facility] Discharge Instructionon 08- Discharge Instruction Normal [facility] Basic Metabolic Profile (BMP )on 11-25-2024 BUN Normal - [facility] Comment on above: Result Comment: Eula merino via OM: Ordered Performed By: #### L 500.2500, L100.0500 ####[facility] [address] [place], [address] BUN/CRE Normal - [facility] Comment on above: Result Comment: Canc elled via OM: MD Ordered Performed By: #### L 500.2500, L100.0500 ####[facility] [address] [place], [address] Calcium Normal 7.6-11.0 [facility] Comment on above: Result Comment: Canc elled via OM: MD Ordered Performed By: #### L 500.2500, L100.0500 ####[facility] [address] [place], [address] CL Normal 98-108 [facility] Comment on above: Result Comment: Canc elled via OM: MD Ordered Performed By: #### L 500.2500, L100.0500 ####[facility] [address] [place], [address] CO2 Normal 21.0-32.0 [facility] Comment on above: Result Comment: Canc elled via OM: MD Ordered Performed By: #### L 500.2500, L100.0500 ####[facility] [address] [place], [address] CREAT,SERUM Normal 0.70-1.20 [facility] Comment on above: Result Comment: Canc elled via OM: MD Ordered Performed By: #### L 500.2500, L100.0500 ####[facility] [address] [place], [address] eGFR Normal >60 [facility] Comment on above: Result Comment: Canc elled via OM: MD Ordered Performed By: #### L 500.2500, L100.0500 ####[facility] [address] [place], [address] GAP Normal 5-15 [facility] Comment on above: Result Comment: Canc elled via OM: MD Ordered Performed By: #### L 500.2500, L100.0500 ####[facility] [address] [place], [address] GLU Normal 70-99 [facility] Comment on above: Result Comment: Canc elled via OM: MD Ordered Performed By: #### L 500.2500, L100.0500 ####[facility] [address] [place], [address] Potassium Normal 3.3-5.1 [facility] Comment on above: Result Comment: Canc elled via OM: MD Ordered Performed By: #### L 500.2500, L100.0500 ####[facility] [address] [place], [address] Basic Metabolic Profile (BMP) Normal 133-145 [facility] Comment on above: Result Comment: Canc elled via OM: MD Ordered Performed By: #### L 500.2500, L100.0500 ####[facility] [address] [place], [address] CBC-Complete Blood Cnt No Di ffon 11-25-2024 Erythrocyte distribution width (RBC) [Ratio] 12.4 % Normal 11.6-14.6 [facility] Comment on above: Performed By: #### L 500.2500, L100.0500 ####[facility] [address] [place], [address] Hematocrit (Bld) [Volume fraction] 39.4 % Normal 37-47 [facility] Comment on above: Performed By: #### L 500.2500, L100.0500 ####[facility] [address] [place], [address] Hemoglobin (Bld) [Mass/Vol] 12.8 g/dL Normal 12.0-15.0 [facility] Comment on above: Performed By: #### L 500.2500, L100.0500 ####[facility] [address] [place], [address] MCH (RBC) [Entitic mass] 30.4 pg Normal 27.0-32.0 [facility] Comment on above: Performed By: #### L 500.2500, L100.0500 ####[facility] [address] [place], [address] MCHC (RBC) [Mass/Vol] 32.5 g/dL Normal 32-36 [facility] Comment on above: Performed By: #### L 500.2500, L100.0500 ####[facility] [address] [place], [address] MCV (RBC) [Entitic vol] 93.6 fL Normal 81-99 [facility] Comment on above: Performed By: #### L 500.2500, L100.0500 ####[facility] [address] [place], [address] Platelet mean volume (Bld) [Entitic vol] 10.2 fL Normal 6.2-12.0 [facility] Comment on above: Performed By: #### L 500.2500, L100.0500 ####[facility] [address] [place], [address] Platelets (Bld) [#/Vol] 329 10*3/uL Normal 150-450 [facility] Comment on above: Performed By: #### L 500.2500, L100.0500 ####[facility] [address] [place], [address] RBC (Bld) [#/Vol] 4.21 10*6/uL Normal 4.2-5.4 [facility] Comment on above: Performed By: #### L 500.2500, L100.0500 ####[facility] [address] [place], [address] RDW SD 42.5 fl Normal 35.1-43.9 [facility] Comment on above: Performed By: #### L 500.2500, L100.0500 ####[facility] [address] [place], [address] WBC (Bld) [#/Vol] 11.0 10*3/uL Normal 4.4-11.0 [facility] Comment on above: Performed By: #### L 500.2500, L100.0500 ####[facility] [address] [place], [address] Basic Metabolic Profile (BMP )on 11-24-2024 BUN Normal 4-19 [facility] Comment on above: Result Comment: Canc elled via OM: MD Ordered Performed By: #### L 500.2500 ####[facility] [address] [place], [address] BUN/CRE Normal 10-20 [facility] Comment on above: Result Comment: Canc elled via OM: MD Ordered Performed By: #### L 500.2500 ####[facility] [address] [place], [address] Calcium Normal 7.6-11.0 [facility] Comment on above: Result Comment: Canc elled via OM: MD Ordered Performed By: #### L 500.2500 ####[facility] [address] [place], [address] CL Normal 98-108 [facility] Comment on above: Result Comment: Canc elled via OM: MD Ordered Performed By: #### L 500.2500 ####[facility] [address] [place], [address] CO2 Normal 21.0-32.0 [facility] Comment on above: Result Comment: Canc elled via OM: MD Ordered Performed By: #### L 500.2500 ####[facility] [address] [place], [address] CREAT,SERUM Normal 0.70-1.20 [facility] Comment on above: Result Comment: Canc elled via OM: MD Ordered Performed By: #### L 500.2500 ####[facility] [address] [place], [address] eGFR Normal >60 [facility] Comment on above: Result Comment: Canc elled via OM: MD Ordered Performed By: #### L 500.2500 ####[facility] [address] [place], [address] GAP Normal 5-15 [facility] Comment on above: Result Comment: Canc elled via OM: MD Ordered Performed By: #### L 500.2500 ####[facility] [address] [place], [address] GLU Normal 70-99 [facility] Comment on above: Result Comment: Canc elled via OM: MD Ordered Performed By: #### L 500.2500 ####[facility] [address] [place], [address] Potassium Normal 3.3-5.1 [facility] Comment on above: Result Comment: Canc elled via OM: MD Ordered Performed By: #### L 500.2500 ####[facility] [address] [place], [address] Basic Metabolic Profile (BMP) Normal 133-145 [facility] Comment on above: Result Comment: Canc elled via OM: MD Ordered Performed By: #### L 500.2500 ####[facility] [address] [place], [address] Basic Metabolic Profile (BMP )on 11-23-2024 BUN/CRE 14.0 RATIO Normal 10-20 [facility] Comment on above: Performed By: #### L 500.2500 ####[facility] [address] [place], [address] Calcium [Mass/Vol] 9.0 mg/dL Normal 7.6-11.0 [facility] Comment on above: Performed By: #### L 500.2500 ####[facility] [address] [place], [address] Chloride [Moles/Vol] 101 mmol/L Normal 98-108 [facility] Comment on above: Performed By: #### L 500.2500 ####[facility] [address] [place], [address] CO2 [Moles/Vol] 23.1 mmol/L Normal 21.0-32.0 [facility] Comment on above: Performed By: #### L 500.2500 ####[facility] [address] [place], [address] Creatinine [Mass/Vol] 0.63 mg/dL Low 0.70-1.20 [facility] Comment on above: Performed By: #### L 500.2500 ####[facility] [address] [place], [address] ECRCL 118.11 ml/min Normal 50-250 [facility] Comment on above: Performed By: #### L 500.2500 ####[facility] [address] [place], [address] GAP 14 Normal 5-15 [facility] Comment on above: Performed By: #### L 500.2500 ####[facility] [address] [place], [address] GFR/1.73 sq M.predicted among non-blacks MDRD (S/P/Bld) [Vol rate/Area] 114 mL/min/{1.73_m2} Normal >60 [facility] Comment on above: Result Comment: mL/m in/1.73m2 CKD-EPI Creatinine Equation (2020) Performed By: #### L 500.2500 ####[facility] [address] [place], [address] Glucose [Mass/Vol] 87 mg/dL Normal 70-99 [facility] Comment on above: Performed By: #### L 500.2500 ####[facility] [address] [place], [address] Potassium [Moles/Vol] 3.8 mmol/L Normal 3.3-5.1 [facility] Comment on above: Performed By: #### L 500.2500 ####[facility] [address] [place], [address] Sodium [Moles/Vol] 139 mmol/L Normal 133-145 [facility] Comment on above: Performed By: #### L 500.2500 ####[facility] [address] [place], [address] Urea nitrogen [Mass/Vol] 9 mg/dL Normal 4-19 [facility] Comment on above: Performed By: #### L 500.2500 ####[facility] [address] [place], [address] Absolute lymphocyte countOrd ered By: Netta Domingo on 11-18-2024 Lymphocytes Auto (Unsp spec) [#/Vol] 2.80 10*3/uL 0.83-4.51 [facility] Automated lymphocyte count a s percentage of total leukocytesOrdered By: Netta Domingo on 11-18-2024 Lymphocytes/100 WBC Auto (Unsp spec) 28.2 % 19-41 [facility] Basophil percentageOrdered B y: Netta Domingo on 11-18-2024 Basophils/100 WBC (Bld) 0.3 % Normal 0-1 [facility] Comment on above: Performed By: #### L 100.0100 ####[facility] [address] [place], [address] Bilirubin, totalOrdered By: Netta Domingo on 11-18-2024 Bilirubin [Mass/Vol] 0.24 mg/dL Normal 0.00-1.30 [facility] Comment on above: Performed By: #### L 500.4050, L500.4100 ####[facility] [address] [place], [address] CBC W/Diff, Automatedon 08- Absolute Lymph 2.80 X10 3/uL Normal 0.83-4.51 [facility] Comment on above: Performed By: #### L 100.0100 ####[facility] [address] [place], [address] Absolute Neut 6.2 X10 3/uL Normal 2.0-7.7 [facility] Comment on above: Performed By: #### L 100.0100 ####[facility] [address] [place], [address] Erythrocyte distribution width (RBC) [Ratio] 12.1 % Normal 11.6-14.6 [facility] Comment on above: Performed By: #### L 100.0100 ####[facility] [address] [place], [address] Hematocrit (Bld) [Volume fraction] 37.2 % Normal 37-47 [facility] Comment on above: Performed By: #### L 100.0100 ####[facility] [address] [place], [address] Hemoglobin (Bld) [Mass/Vol] 12.7 g/dL Normal 12.0-15.0 [facility] Comment on above: Performed By: #### L 100.0100 ####[facility] [address] [place], [address] IG% 0.900 Normal 0.0-0.9 [facility] Comment on above: Result Comment: IG% - Immature Granulocytes (promyelocytes, myelocytes andmetamyelocytes) > 1% indicates that a LEFT SHIFT is Present. Performed By: #### L 100.0100 ####[facility] [address] [place], [address] Lymphocytes/100 WBC (Bld) 28.2 % Normal 19-41 [facility] Comment on above: Performed By: #### L 100.0100 ####[facility] [address] [place], [address] MCH (RBC) [Entitic mass] 30.9 pg Normal 27.0-32.0 [facility] Comment on above: Performed By: #### L 100.0100 ####[facility] [address] [place], [address] MCHC (RBC) [Mass/Vol] 34.1 g/dL Normal 32-36 [facility] Comment on above: Performed By: #### L 100.0100 ####[facility] [address] [place], [address] MCV (RBC) [Entitic vol] 90.5 fL Normal 81-99 [facility] Comment on above: Performed By: #### L 100.0100 ####[facility] [address] [place], [address] Nucleated RBC (Bld) [#/Vol] 0 10*3/uL Normal 0-5 [facility] Comment on above: Performed By: #### L 100.0100 ####[facility] [address] [place], [address] Platelet mean volume (Bld) [Entitic vol] 9.7 fL Normal 6.2-12.0 [facility] Comment on above: Performed By: #### L 100.0100 ####[facility] [address] [place], [address] Platelets (Bld) [#/Vol] 405 10*3/uL Normal 150-450 [facility] Comment on above: Performed By: #### L 100.0100 ####[facility] [address] [place], [address] RBC (Bld) [#/Vol] 4.11 10*6/uL Low 4.2-5.4 [facility] Comment on above: Performed By: #### L 100.0100 ####[facility] [address] [place], [address] RDW SD 39.4 fl Normal 35.1-43.9 [facility] Comment on above: Performed By: #### L 100.0100 ####[facility] [address] [place], [address] WBC (Bld) [#/Vol] 9.9 10*3/uL Normal 4.4-11.0 [facility] Comment on above: Performed By: #### L 100.0100 ####[facility] [address] [place], [address] Calculated very low density lipoprotein (VLDL) cholesterol measurementOrdered By: Netta Domingo on 11-18-2024 Calculated very low density lipoprotein (VLDL) cholesterol measurement 36 mg/dL 5-40 [facility] Comprehensive Metabolic Prof ilon 11-18-2024 ALK PHOS 68 U/L Normal 35-104 [facility] Comment on above: Performed By: #### L 500.4050, L500.4100 ####[facility] [address] [place], [address] AST [Catalytic activity/Vol] 32 U/L Normal <=31 [facility] Comment on above: Performed By: #### L 500.4050, L500.4100 ####[facility] [address] [place], [address] BUN/CRE 20.2 RATIO High 10-20 [facility] Comment on above: Performed By: #### L 500.4050, L500.4100 ####[facility] [address] [place], [address] Calcium [Mass/Vol] 9.0 mg/dL Normal 7.6-11.0 [facility] Comment on above: Performed By: #### L 500.4050, L500.4100 ####[facility] [address] [place], [address] Chloride [Moles/Vol] 104 mmol/L Normal 98-108 [facility] Comment on above: Performed By: #### L 500.4050, L500.4100 ####[facility] [address] [place], [address] CO2 [Moles/Vol] 24.0 mmol/L Normal 21.0-32.0 [facility] Comment on above: Performed By: #### L 500.4050, L500.4100 ####[facility] [address] [place], [address] Creatinine [Mass/Vol] 0.63 mg/dL Low 0.70-1.20 [facility] Comment on above: Performed By: #### L 500.4050, L500.4100 ####[facility] [address] [place], [address] ECRCL 117.83 ml/min Normal 50-250 [facility] Comment on above: Performed By: #### L 500.4050, L500.4100 ####[facility] [address] [place], [address] GAP 10 Normal 5-15 [facility] Comment on above: Performed By: #### L 500.4050, L500.4100 ####[facility] [address] [place], [address] GFR/1.73 sq M.predicted among non-blacks MDRD (S/P/Bld) [Vol rate/Area] 114 mL/min/{1.73_m2} Normal >60 [facility] Comment on above: Result Comment: mL/m in/1.73m2 CKD-EPI Creatinine Equation (2020) Performed By: #### L 500.4050, L500.4100 ####[facility] [address] [place], [address] Glucose [Mass/Vol] 102 mg/dL High 70-99 [facility] Comment on above: Performed By: #### L 500.4050, L500.4100 ####[facility] [address] [place], [address] Potassium [Moles/Vol] 4.1 mmol/L Normal 3.3-5.1 [facility] Comment on above: Performed By: #### L 500.4050, L500.4100 ####[facility] [address] [place], [address] Sodium [Moles/Vol] 138 mmol/L Normal 133-145 [facility] Comment on above: Performed By: #### L 500.4050, L500.4100 ####[facility] [address] [place], [address] T PROT 6.1 g/dL Normal 5.9-8.4 [facility] Comment on above: Performed By: #### L 500.4050, L500.4100 ####[facility] [address] [place], [address] Urea nitrogen [Mass/Vol] 13 mg/dL Normal 4-19 [facility] Comment on above: Performed By: #### L 500.4050, L500.4100 ####[facility] [address] [place], [address] Eosinophil percentageOrdered By: Netta Domingo on 11-18-2024 Eosinophils/100 WBC (Bld) 1.9 % Normal 0-5 [facility] Comment on above: Performed By: #### L 100.0100 ####[facility] [address] [place], [address] Immature granulocytes/100 WB C Auto (Bld)Ordered By: Netta Domingo on 11-18-2024 Immature granulocytes/100 WBC (Bld) 0.900 % 0.0-0.9 [facility] LDL calc ser/plasOrdered By: Netta Domingo on 11-18-2024 Cholesterol in LDL [Mass/Vol] 59 mg/dL Normal [facility] Comment on above: Result Comment: Bord mdvzgn=490-591 mg/dL Higher Muvj=081 mg/dL or greaterFriedwald Equation for LDL-C Performed By: #### L 500.4050, L500.4100 ####[facility] [address] [place], [address] Lipid Profileon 11-18-2024 CHOL:HDL 2.94 Normal [facility] Comment on above: Performed By: #### L 500.4050, L500.4100 ####[facility] [address] [place], [address] Cholesterol in VLDL [Mass/Vol] 36 mg/dL Normal 5-40 [facility] Comment on above: Performed By: #### L 500.4050, L500.4100 ####[facility] [address] [place], [address] Triglyceride [Mass/Vol] 179 mg/dL Normal [facility] Comment on above: Result Comment: The drugs N-Acetylcysteine and Metamizole may falselydepress this assay.Normal range: <150 mg/dLBorderline High: 150-199 mg/dLHigh: 200-499 mg/dLVery High: >500 mg/dL Performed By: #### L 500.4050, L500.4100 ####[facility] [address] [place], [address] Monocyte percentageOrdered B y: Netta Domingo on 11-18-2024 Monocytes/100 WBC (Bld) 6.4 % Normal 0-10 [facility] Comment on above: Performed By: #### L 100.0100 ####[facility] [address] [place], [address] Neutrophil percentageOrdered By: Netta Domingo on 11-18-2024 Neutrophils/100 WBC (Bld) 62.3 % Normal 47-70 [facility] Comment on above: Performed By: #### L 100.0100 ####[facility] [address] [place], [address] No Panel InformationOrdered By: Netta Domingo on 11-18-2024 32 U/L <32 [facility] Serum globulin measurementOr dered By: Netta Domingo on 11-18-2024 Globulin (S) [Mass/Vol] 2.4 g/dL Normal 2.2-4.2 [facility] Comment on above: Performed By: #### L 500.4050, L500.4100 ####[facility] [address] [place], [address] Serum or plasma alanine quintana otransferase (ALT) measurementOrdered By: Netta Domingo on 11-18-2024 ALT [Catalytic activity/Vol] 65 U/L High <=34 [facility] Comment on above: Performed By: #### L 500.4050, L500.4100 ####[facility] [address] [place], [address] Serum or plasma albumin sasha urement (mass/volume)Ordered By: Netta Domingo on 11-18-2024 Albumin [Mass/Vol] 3.8 g/dL Normal 3.5-5.0 [facility] Comment on above: Performed By: #### L 500.4050, L500.4100 ####[facility] [address] [place], [address] Serum or plasma albumin/glob ulin mass ratioOrdered By: Netta Mendozamilton on 11-18-2024 Albumin/Globulin [Mass ratio] 1.6 {ratio} Normal 0.9-2.4 [facility] Comment on above: Performed By: #### L 500.4050, L500.4100 ####[facility] [address] [place], [address] Serum or plasma alkaline malvin sphatase measurementOrdered By: Netta Domingo on 11-18-2024 ALP [Catalytic activity/Vol] 68 U/L 35-104 [facility] Serum or plasma cholesterol in HDL measurement (mass/volume)Ordered By: Netta Domingo on 11-18-2024 Cholesterol in HDL [Mass/Vol] 49 mg/dL Normal [facility] Comment on above: Result Comment: [place] onal Cholesterol Education Program (NCEP) guidelines:<40 mg/dL: Low HDL-cholesterol (major risk factor for CHD)>= 60 mg/dL: High HDL-cholesterol (negative risk factor forCHD)HDL-cholesterol is affected by a number of factors, e.g.smoking, exercise, hormones, sex and age. Performed By: #### L 500.4050, L500.9972 ####[facility] [address] [place], [place], [id number] Serum or plasma cholesterol measurement (mass/volume)Ordered By: Netta Domingo on 11-18-2024 Cholesterol [Mass/Vol] 143 mg/dL Normal <=200 [facility] Comment on above: Result Comment: Chol esterol level, Desirable <200 mg/dLBorderline high cholesterol 200-239 mg/dLHigh cholesterol >=240 mg/dLRecommendations of the NCEP Adult Treatment Panel for thefollowing risk-cutoff thresholds for the [place] Americanpulation. Performed By: #### L 500.4050, L500.4100 ####[facility] [address] [place], [place], [id number] Total proteinOrdered By: Liz Domingo on 11-18-2024 Protein [Mass/Vol] 6.1 g/dL 5.9-8.4 [facility] CBC-Complete Blood Cnt No Di ffon 11-11-2024 Erythrocyte distribution width (RBC) [Ratio] 11.6 % Normal 11.6-14.6 [facility] Comment on above: Performed By: #### L 100.0500 ####[facility] [address] [place], [address] Hematocrit (Bld) [Volume fraction] 37.5 % Normal 37-47 [facility] Comment on above: Performed By: #### L 100.0500 ####[facility] [address] [place], [address] Hemoglobin (Bld) [Mass/Vol] 12.6 g/dL Normal 12.0-15.0 [facility] Comment on above: Performed By: #### L 100.0500 ####[facility] [address] [place], [address] MCH (RBC) [Entitic mass] 30.7 pg Normal 27.0-32.0 [facility] Comment on above: Performed By: #### L 100.0500 ####[facility] [address] [place], [address] MCHC (RBC) [Mass/Vol] 33.6 g/dL Normal 32-36 [facility] Comment on above: Performed By: #### L 100.0500 ####[facility] [address] [place], [address] MCV (RBC) [Entitic vol] 91.2 fL Normal 81-99 [facility] Comment on above: Performed By: #### L 100.0500 ####[facility] [address] [place], [address] Platelet mean volume (Bld) [Entitic vol] 10.0 fL Normal 6.2-12.0 [facility] Comment on above: Performed By: #### L 100.0500 ####[facility] [address] [place], [address] Platelets (Bld) [#/Vol] 372 10*3/uL Normal 150-450 [facility] Comment on above: Performed By: #### L 100.0500 ####[facility] [address] [place], [address] RBC (Bld) [#/Vol] 4.11 10*6/uL Low 4.2-5.4 [facility] Comment on above: Performed By: #### L 100.0500 ####[facility] [address] [place], [address] RDW SD 38.8 fl Normal 35.1-43.9 [facility] Comment on above: Performed By: #### L 100.0500 ####[facility] [address] [place], [address] WBC (Bld) [#/Vol] 8.3 10*3/uL Normal 4.4-11.0 [facility] Comment on above: Performed By: #### L 100.0500 ####[facility] [address] [place], [address] Cardiac Cath Diagnosticon Cardiac Cath Diagnostic Normal [facility] Comprehensive Metabolic Prof ilon 11-11-2024 Albumin [Mass/Vol] 3.9 g/dL Normal 3.5-5.0 [facility] Comment on above: Performed By: #### L 500.4050, L501.2300, L501.5200 ####[facility] [address] [place], [address] Albumin/Globulin [Mass ratio] 1.7 {ratio} Normal 0.9-2.4 [facility] Comment on above: Performed By: #### L 500.4050, L501.2300, L501.5200 ####[facility] [address] [place], [address] ALK PHOS 73 U/L Normal 35-104 [facility] Comment on above: Performed By: #### L 500.4050, L501.2300, L501.5200 ####[facility] [address] [place], [address] ALT [Catalytic activity/Vol] 98 U/L High <=34 [facility] Comment on above: Performed By: #### L 500.4050, L501.2300, L501.5200 ####[facility] [address] [place], [address] AST [Catalytic activity/Vol] 60 U/L High <=31 [facility] Comment on above: Performed By: #### L 500.4050, L501.2300, L501.5200 ####[facility] [address] [place], [address] Bilirubin [Mass/Vol] 0.19 mg/dL Normal 0.00-1.30 [facility] Comment on above: Performed By: #### L 500.4050, L501.2300, L501.5200 ####[facility] [address] [place], [address] BUN/CRE 15.8 RATIO Normal 10-20 [facility] Comment on above: Performed By: #### L 500.4050, L501.2300, L501.5200 ####[facility] [address] [place], [address] Calcium [Mass/Vol] 9.4 mg/dL Normal 7.6-11.0 [facility] Comment on above: Performed By: #### L 500.4050, L501.2300, L501.5200 ####[facility] [address] [place], [address] Chloride [Moles/Vol] 105 mmol/L Normal 98-108 [facility] Comment on above: Performed By: #### L 500.4050, L501.2300, L501.5200 ####[facility] [address] [place], [address] CO2 [Moles/Vol] 28.2 mmol/L Normal 21.0-32.0 [facility] Comment on above: Performed By: #### L 500.4050, L501.2300, L501.5200 ####[facility] [address] [place], [address] Creatinine [Mass/Vol] 0.66 mg/dL Low 0.70-1.20 [facility] Comment on above: Performed By: #### L 500.4050, L501.2300, L501.5200 ####[facility] [address] [place], [address] ECRCL 111.95 ml/min Normal 50-250 [facility] Comment on above: Performed By: #### L 500.4050, L501.2300, L501.5200 ####[facility] [address] [place], [address] GAP 9 Normal 5-15 [facility] Comment on above: Performed By: #### L 500.4050, L501.2300, L501.5200 ####[facility] [address] [place], [address] GFR/1.73 sq M.predicted among non-blacks MDRD (S/P/Bld) [Vol rate/Area] 113 mL/min/{1.73_m2} Normal >60 [facility] Comment on above: Result Comment: mL/m in/1.73m2 CKD-EPI Creatinine Equation (2020) Performed By: #### L 500.4050, L501.2300, L501.5200 ####[facility] [address] [place], [address] Globulin (S) [Mass/Vol] 2.3 g/dL Normal 2.2-4.2 [facility] Comment on above: Performed By: #### L 500.4050, L501.2300, L501.5200 ####[facility] [address] [place], [address] Glucose [Mass/Vol] 138 mg/dL High 70-99 [facility] Comment on above: Performed By: #### L 500.4050, L501.2300, L501.5200 ####[facility] [address] [place], [address] Potassium [Moles/Vol] 4.1 mmol/L Normal 3.3-5.1 [facility] Comment on above: Performed By: #### L 500.4050, L501.2300, L501.5200 ####[facility] [address] [place], [address] Sodium [Moles/Vol] 142 mmol/L Normal 133-145 [facility] Comment on above: Performed By: #### L 500.4050, L501.2300, L501.5200 ####[facility] [address] [place], [address] T PROT 6.2 g/dL Normal 5.9-8.4 [facility] Comment on above: Performed By: #### L 500.4050, L501.2300, L501.5200 ####[facility] [address] [place], [address] Urea nitrogen [Mass/Vol] 11 mg/dL Normal 4-19 [facility] Comment on above: Performed By: #### L 500.4050, L501.2300, L501.5200 ####[facility] [address] [place], [address] JAK2 Mutation Analysison JAK2 COMMENT Comment Normal . [facility] Comment on above: Result Comment: Tech nical Component performed at [facility] RTPProfessional Component performed by:Tato Price, PhD, FACMGDirector, [facility]cologyLabmadison [facility] [id number], [address] EscobarSaint Francis Hospital [facility] [phone] test was developed and its performance characteristicsdetermined by [facility]. It has not been cleared orapproved by the Food and Drug Administration.Performed at: [place] [facility] [id number] [place], [place] [id number] Director: Marilynbao Campos [facility], Phone: [phone] at: [place] - [facility] [id number] [place], [place] [id number] Director: Neil Campos [facility], Phone: [phone] Performed By: #### L 3440.5000 ####[facility] [address] [place], [address] JAK2 COMMENT 2 Comment Normal . [facility] Comment on above: Result Comment: JAK2 is a cytoplasmic tyrosine kinase with a connell role insignal transduction from multiple hematopoietic growthfactor receptors. A point mutation within exon 14 of theJAK2 gene ([id number]) encoding a valine to phenylalaninesubstitution at position [...] specific to JAK2 wild type (WT) and MNL5cabvqj V617F. The Wis.dm Absolute Quantitation softwarewill compare the patient specimen valuse to the standardcurves and generate percent values for wild type andmutant type. In vitro studies have indicated that thisassay has an analytical sensitivity of 1%.References:Solo GRAHAM, Roger BAIG, Macho PJ, et al. Acquiredmutation of the tyrosine kinase JAK2 in humanmyeloproliferative disorders. Lancet. 2005 Jun 19;365(4310):5103-2578. Tong Bolden, Geraldo V, Pito Curry SHIMA. Aunique clonal JAK2 mutation leading to constitutivesignaling causes polycythaemia vera. Nature. 2005 Jul 29;434(7062):7018-4648.Maryann R, Aly F, Joseph , et al. A xlpe-xs-kzjgvbkw mutation of JAK2 in myeloproliferative disorders.N Engl J Med. 2005 Jul 29; 35217):4767-0574. Performed By: #### L 3440.5000 ####[facility] [address] [place], [address] JAK2 MUT QUAL Comment Normal . [facility] Comment on above: Result Comment: Resu lt: NEGATIVE for the JAK2 V617F mutation.Interpretation: The G to T nucleotide change encoding [id number] mutation was not detected. This result does [...] with these disorders. Performed By: #### L 3440.5000 ####[facility] [address] [place], [address] Magnesiumon 11-11-2024 Magnesium [Mass/Vol] 2.3 mg/dL High 1.5-2.2 [facility] Comment on above: Performed By: #### L 500.4050, L501.2300, L501.5200 ####[facility] [address] [place], [address] Magnesium measurement (mass/ volume)Ordered By: Netta Domingo on 11-11-2024 Magnesium (Unsp spec) [Mass/Vol] 2.3 mg/dL High 1.5-2.2 [facility] Phosphoruson 11-11-2024 Phosphate [Mass/Vol] 3.6 mg/dL Normal 2.7-4.5 [facility] Comment on above: Performed By: #### L 500.4050, L501.2300, L501.5200 ####[facility] [address] [place], [address] Absolute lymphocyte countOrd ered By: Nehemiah Hammond on 11-10-2024 Lymphocytes Auto (Unsp spec) [#/Vol] 3.28 10*3/uL 0.83-4.51 [facility] Absolute neutrophil countOrd ered By: Nehemiah Hammond on 11-10-2024 Neutrophils (Bld) [#/Vol] 4.5 10*3/uL 2.0-7.7 [facility] Anion gap in Serum or Plasma Ordered By: Nehemiah Hammond on 11-10-2024 Anion gap [Moles/Vol] 9 mmol/L - [facility] Automated lymphocyte count a s percentage of total leukocytesOrdered By: Nehemiah Hammond on 11-10-2024 Lymphocytes/100 WBC Auto (Unsp spec) 37.4 % [facility] BUN/creatinine ratioOrdered By: Nehemiah Hammond on 11-10-2024 Urea nitrogen/Creatinine [Mass ratio] 19.8 mg/mg - [facility] Basic Metabolic Profile (BMP )on 11-10-2024 BUN/CRE 19.8 RATIO Normal - [facility] Comment on above: Performed By: #### L 100.0100, L500.2500 ####[facility] [address] [place], [address] Calcium [Mass/Vol] 9.2 mg/dL Normal 7.6-11.0 [facility] Comment on above: Performed By: #### L 100.0100, L500.2500 ####[facility] [address] [place], [address] Chloride [Moles/Vol] 107 mmol/L Normal 98-108 [facility] Comment on above: Performed By: #### L 100.0100, L500.2500 ####[facility] [address] [place], [address] CO2 [Moles/Vol] 26.0 mmol/L Normal 21.0-32.0 [facility] Comment on above: Performed By: #### L 100.0100, L500.2500 ####[facility] [address] [place], [address] Creatinine [Mass/Vol] 0.60 mg/dL Low 0.70-1.20 [facility] Comment on above: Performed By: #### L 100.0100, L500.2500 ####[facility] [address] [place], [address] ECRCL 123.80 ml/min Normal 50-250 [facility] Comment on above: Performed By: #### L 100.0100, L500.2500 ####[facility] [address] [place], [address] GAP 9 Normal 5-15 [facility] Comment on above: Performed By: #### L 100.0100, L500.2500 ####[facility] [address] [place], [address] GFR/1.73 sq M.predicted among non-blacks MDRD (S/P/Bld) [Vol rate/Area] 116 mL/min/{1.73_m2} Normal >60 [facility] Comment on above: Result Comment: mL/m in/1.73m2 CKD-EPI Creatinine Equation (2020) Performed By: #### L 100.0100, L500.2500 ####[facility] [address] [place], [address] Glucose [Mass/Vol] 98 mg/dL Normal 70-99 [facility] Comment on above: Performed By: #### L 100.0100, L500.2500 ####[facility] [address] [place], [address] Potassium [Moles/Vol] 4.2 mmol/L Normal 3.3-5.1 [facility] Comment on above: Performed By: #### L 100.0100, L500.2500 ####[facility] [address] [place], [address] Sodium [Moles/Vol] 141 mmol/L Normal 133-145 [facility] Comment on above: Performed By: #### L 100.0100, L500.2500 ####[facility] [address] [place], [address] Urea nitrogen [Mass/Vol] 12 mg/dL Normal 4-19 [facility] Comment on above: Performed By: #### L 100.0100, L500.2500 ####[facility] [address] [place], [address] Basophil percentageOrdered B y: Nehemiah Hammond on 11-10-2024 Basophils/100 WBC (Bld) 0.5 % 0-1 [facility] CBC W/Diff, Automatedon 11-01 0-2024 Absolute Lymph 3.28 X10 3/uL Normal 0.83-4.51 [facility] Comment on above: Performed By: #### L 100.0100, L500.2500 ####[facility] [address] [place], [address] Absolute Neut 4.5 X10 3/uL Normal 2.0-7.7 [facility] Comment on above: Performed By: #### L 100.0100, L500.2500 ####[facility] [address] [place], [address] Basophils/100 WBC (Bld) 0.5 % Normal 0-1 [facility] Comment on above: Performed By: #### L 100.0100, L500.2500 ####[facility] [address] [place], [address] Eosinophils/100 WBC (Bld) 1.6 % Normal 0-5 [facility] Comment on above: Performed By: #### L 100.0100, L500.2500 ####[facility] [address] [place], [address] Erythrocyte distribution width (RBC) [Ratio] 11.6 % Normal 11.6-14.6 [facility] Comment on above: Performed By: #### L 100.0100, L500.2500 ####[facility] [address] [place], [address] Hematocrit (Bld) [Volume fraction] 38.8 % Normal 37-47 [facility] Comment on above: Performed By: #### L 100.0100, L500.2500 ####[facility] [address] [place], [address] Hemoglobin (Bld) [Mass/Vol] 12.7 g/dL Normal 12.0-15.0 [facility] Comment on above: Performed By: #### L 100.0100, L500.2500 ####[facility] [address] [place], [address] IG% 0.300 Normal 0.0-0.9 [facility] Comment on above: Result Comment: IG% - Immature Granulocytes (promyelocytes, myelocytes andmetamyelocytes) > 1% indicates that a LEFT SHIFT is Present. Performed By: #### L 100.0100, L500.2500 ####[facility] [address] [place], [address] Lymphocytes/100 WBC (Bld) 37.4 % Normal 19-41 [facility] Comment on above: Performed By: #### L 100.0100, L500.2500 ####[facility] [address] [place], [address] MCH (RBC) [Entitic mass] 30.0 pg Normal 27.0-32.0 [facility] Comment on above: Performed By: #### L 100.0100, L500.2500 ####[facility] [address] [place], [address] MCHC (RBC) [Mass/Vol] 32.7 g/dL Normal 32-36 [facility] Comment on above: Performed By: #### L 100.0100, L500.2500 ####[facility] [address] [place], [address] MCV (RBC) [Entitic vol] 91.7 fL Normal 81-99 [facility] Comment on above: Performed By: #### L 100.0100, L500.2500 ####[facility] [address] [place], [address] Monocytes/100 WBC (Bld) 8.7 % Normal 0-10 [facility] Comment on above: Performed By: #### L 100.0100, L500.2500 ####[facility] [address] [place], [address] Neutrophils/100 WBC (Bld) 51.5 % Normal 47-70 [facility] Comment on above: Performed By: #### L 100.0100, L500.2500 ####[facility] [address] [place], [address] Nucleated RBC (Bld) [#/Vol] 0 10*3/uL Normal 0-5 [facility] Comment on above: Performed By: #### L 100.0100, L500.2500 ####[facility] [address] [place], [address] Platelet mean volume (Bld) [Entitic vol] 10.7 fL Normal 6.2-12.0 [facility] Comment on above: Performed By: #### L 100.0100, L500.2500 ####[facility] [address] [place], [address] Platelets (Bld) [#/Vol] 384 10*3/uL Normal 150-450 [facility] Comment on above: Performed By: #### L 100.0100, L500.2500 ####[facility] [address] [place], [address] RBC (Bld) [#/Vol] 4.23 10*6/uL Normal 4.2-5.4 [facility] Comment on above: Performed By: #### L 100.0100, L500.2500 ####[facility] [address] [place], [address] RDW SD 39.0 fl Normal 35.1-43.9 [facility] Comment on above: Performed By: #### L 100.0100, L500.2500 ####[facility] [address] [place], [address] WBC (Bld) [#/Vol] 8.8 10*3/uL Normal 4.4-11.0 [facility] Comment on above: Performed By: #### L 100.0100, L500.2500 ####[facility] [address] [place], [address] CBC-Complete Blood Cnt No Di ffon 11-10-2024 HCT Normal 37-47 [facility] Comment on above: Result Comment: CANC EL PER NURSE Performed By: #### L 100.0500 ####[facility] [address] [place], [address] HGB Normal 12.0-15.0 [facility] Comment on above: Result Comment: CANC EL PER NURSE Performed By: #### L 100.0500 ####[facility] [address] [place], [address] MCH Normal 27.0-32.0 [facility] Comment on above: Result Comment: CANC EL PER NURSE Performed By: #### L 100.0500 ####[facility] [address] [place], [address] MCHC Normal 32-36 [facility] Comment on above: Result Comment: CANC EL PER NURSE Performed By: #### L 100.0500 ####[facility] [address] [place], [address] MCV Normal 81-99 [facility] Comment on above: Result Comment: CANC EL PER NURSE Performed By: #### L 100.0500 ####[facility] [address] [place], [address] PLT Normal 150-450 [facility] Comment on above: Result Comment: CANC EL PER NURSE Performed By: #### L 100.0500 ####[facility] [address] [place], [address] RBC Normal 4.2-5.4 [facility] Comment on above: Result Comment: CANC EL PER NURSE Performed By: #### L 100.0500 ####[facility] [address] [place], [address] RDW CV Normal 11.6-14.6 [facility] Comment on above: Result Comment: CANC EL PER NURSE Performed By: #### L 100.0500 ####[facility] [address] [place], [address] RDW SD Normal 35.1-43.9 [facility] Comment on above: Result Comment: CANC EL PER NURSE Performed By: #### L 100.0500 ####[facility] [address] [place], [address] WBC Normal 4.4-11.0 [facility] Comment on above: Result Comment: CANC EL PER NURSE Performed By: #### L 100.0500 ####[facility] [address] [place], [address] Carbon dioxide, total [Moles /volume] in [place] venous bloodOrdered By: Nehemiah Hammond on 11-10-2024 CO2 [Moles/Vol] 26.0 mmol/L 21.0-32.0 [facility] Chloride assayOrdered By: Edward Hammond on 11-10-2024 Chloride [Moles/Vol] 107 mmol/L 98-108 [facility] Comprehensive Metabolic Prof ilon 11-10-2024 ALB Normal 3.5-5.0 [facility] Comment on above: Result Comment: CANC EL PER NURSE Performed By: #### L 500.4050 ####[facility] [address] [place], [address] ALK PHOS Normal 35-104 [facility] Comment on above: Result Comment: CANC EL PER NURSE Performed By: #### L 500.4050 ####[facility] [address] [place], [address] ALT Normal <=34 [facility] Comment on above: Result Comment: CANC EL PER NURSE Performed By: #### L 500.4050 ####[facility] [address] [place], [address] AST Normal <=31 [facility] Comment on above: Result Comment: CANC EL PER NURSE Performed By: #### L 500.4050 ####[facility] [address] [place], [address] BUN Normal 4-19 [facility] Comment on above: Result Comment: CANC EL PER NURSE Performed By: #### L 500.4050 ####[facility] [address] [place], [address] BUN/CRE Normal 10-20 [facility] Comment on above: Result Comment: CANC EL PER NURSE Performed By: #### L 500.4050 ####[facility] [address] [place], [address] Calcium Normal 7.6-11.0 [facility] Comment on above: Result Comment: CANC EL PER NURSE Performed By: #### L 500.4050 ####[facility] [address] [place], [address] CL Normal 98-108 [facility] Comment on above: Result Comment: CANC EL PER NURSE Performed By: #### L 500.4050 ####[facility] [address] [place], [address] CO2 Normal 21.0-32.0 [facility] Comment on above: Result Comment: CANC EL PER NURSE Performed By: #### L 500.4050 ####[facility] [address] [place], [address] CREAT,SERUM Normal 0.70-1.20 [facility] Comment on above: Result Comment: CANC EL PER NURSE Performed By: #### L 500.4050 ####[facility] [address] [place], [address] eGFR Normal >60 [facility] Comment on above: Result Comment: CANC EL PER NURSE Performed By: #### L 500.4050 ####[facility] [address] [place], [address] GAP Normal 5-15 [facility] Comment on above: Result Comment: CANC EL PER NURSE Performed By: #### L 500.4050 ####[facility] [address] [place], [address] GLU Normal 70-99 [facility] Comment on above: Result Comment: CANC EL PER NURSE Performed By: #### L 500.4050 ####[facility] [address] [place], [address] Potassium Normal 3.3-5.1 [facility] Comment on above: Result Comment: CANC EL PER NURSE Performed By: #### L 500.4050 ####[facility] [address] [place], [address] T BILI Normal 0.00-1.30 [facility] Comment on above: Result Comment: CANC EL PER NURSE Performed By: #### L 500.4050 ####[facility] [address] [place], [address] T PROT Normal 5.9-8.4 [facility] Comment on above: Result Comment: CANC EL PER NURSE Performed By: #### L 500.4050 ####[facility] [address] [place], [place], [address] Comprehensive Metabolic Profil Normal 133-145 [facility] Comment on above: Result Comment: CANC EL PER NURSE Performed By: #### L 500.4050 ####[facility] [address] [place], [place], [address] Eosinophil percentageOrdered By: Nehemiah Hammond on 11-10-2024 [...] 11-10-2024 MCHC (RBC) [Mass/Vol] 32.7 g/dL 32-36 [facility] Mean platelet volume determi nationOrdered By: [...] (Bld) [#/Vol]Ordere d By: Nehemiah Hammond on 08-10-2025 RBC (Bld) [#/Vol] 4.23 10*6/uL 4.2-5.4 [facility] Serum creatinine measurement (mass/volume)Ordered By: Nehemiah Hammond on 11-10-2024 Creatinine [Mass/Vol] 0.60 mg/dL Low 0.70-1.20 [facility] Serum glucose measurement (m ass/volume)Ordered By: Nehemiah Hammond on 11-10-2024 Glucose [Mass/Vol] 98 mg/dL 70-99 [facility] Serum or plasma calcium sasha urement (mass/volume)Ordered By: Nehemiah Hammond on 11-10-2024 Calcium [Mass/Vol] 9.2 mg/dL 7.6-11.0 [facility] Serum or plasma urea nitroge n measurement (mass/volume)Ordered By: Nehemiah Hammond on 11-10-2024 Urea nitrogen [Mass/Vol] 12 mg/dL 4-19 [facility] Sodium levelOrdered By: Himanshu Hammond on 11-10-2024 Sodium [Moles/Vol] 141 mmol/L 133-145 [facility] White blood cell (WBC) count Ordered By: Nehemiah Hammond on 11-10-2024 WBC (Bld) [#/Vol] 8.8 10*3/uL 4.4-11.0 [facility] Basic Metabolic Profile (BMP )on 11-09-2024 BUN/CRE 20.4 RATIO High 10-20 [facility] Comment on above: Performed By: #### L 100.0100, L500.2500 ####[facility] [address] [place], [address] Calcium [Mass/Vol] 8.9 mg/dL Normal 7.6-11.0 [facility] Comment on above: Performed By: #### L 100.0100, L500.2500 ####[facility] [address] [place], [address] Chloride [Moles/Vol] 108 mmol/L Normal 98-108 [facility] Comment on above: Performed By: #### L 100.0100, L500.2500 ####[facility] [address] [place], [address] CO2 [Moles/Vol] 23.8 mmol/L Normal 21.0-32.0 [facility] Comment on above: Performed By: #### L 100.0100, L500.2500 ####[facility] [address] [place], [address] Creatinine [Mass/Vol] 0.57 mg/dL Low 0.70-1.20 [facility] Comment on above: Performed By: #### L 100.0100, L500.2500 ####[facility] [address] [place], [address] ECRCL 130.32 ml/min Normal 50-250 [facility] Comment on above: Performed By: #### L 100.0100, L500.2500 ####[facility] [address] [place], [address] GAP 9 Normal 5-15 [facility] Comment on above: Performed By: #### L 100.0100, L500.2500 ####[facility] [address] [place], [address] GFR/1.73 sq M.predicted among non-blacks MDRD (S/P/Bld) [Vol rate/Area] 117 mL/min/{1.73_m2} Normal >60 [facility] Comment on above: Result Comment: mL/m in/1.73m2 CKD-EPI Creatinine Equation (2020) Performed By: #### L 100.0100, L500.2500 ####[facility] [address] [place], [address] Glucose [Mass/Vol] 123 mg/dL High 70-99 [facility] Comment on above: Performed By: #### L 100.0100, L500.2500 ####[facility] [address] [place], [address] Potassium [Moles/Vol] 4.2 mmol/L Normal 3.3-5.1 [facility] Comment on above: Performed By: #### L 100.0100, L500.2500 ####[facility] [address] [place], [address] Sodium [Moles/Vol] 140 mmol/L Normal 133-145 [facility] Comment on above: Performed By: #### L 100.0100, L500.2500 ####[facility] [address] [place], [address] Urea nitrogen [Mass/Vol] 12 mg/dL Normal 4-19 [facility] Comment on above: Performed By: #### L 100.0100, L500.2500 ####[facility] [address] [place], [address] CBC W/Diff, Automatedon 08-0 9-2024 Absolute Lymph 2.95 X10 3/uL Normal 0.83-4.51 [facility] Comment on above: Performed By: #### L 100.0100, L500.2500 ####[facility] [address] [place], [address] Absolute Neut 5.0 X10 3/uL Normal 2.0-7.7 [facility] Comment on above: Performed By: #### L 100.0100, L500.2500 ####[facility] [address] [place], [address] Basophils/100 WBC (Bld) 0.6 % Normal 0-1 [facility] Comment on above: Performed By: #### L 100.0100, L500.2500 ####[facility] [address] [place], [address] Eosinophils/100 WBC (Bld) 1.9 % Normal 0-5 [facility] Comment on above: Performed By: #### L 100.0100, L500.2500 ####[facility] [address] [place], [address] Erythrocyte distribution width (RBC) [Ratio] 11.6 % Normal 11.6-14.6 [facility] Comment on above: Performed By: #### L 100.0100, L500.2500 ####[facility] [address] [place], [address] Hematocrit (Bld) [Volume fraction] 35.7 % Low 37-47 [facility] Comment on above: Performed By: #### L 100.0100, L500.2500 ####[facility] [address] [place], [address] Hemoglobin (Bld) [Mass/Vol] 12.0 g/dL Normal 12.0-15.0 [facility] Comment on above: Performed By: #### L 100.0100, L500.2500 ####[facility] [address] [place], [address] IG% 0.300 Normal 0.0-0.9 [facility] Comment on above: Result Comment: IG% - Immature Granulocytes (promyelocytes, myelocytes andmetamyelocytes) > 1% indicates that a LEFT SHIFT is Present. Performed By: #### L 100.0100, L500.2500 ####[facility] [address] [place], [address] Lymphocytes/100 WBC (Bld) 32.6 % Normal 19-41 [facility] Comment on above: Performed By: #### L 100.0100, L500.2500 ####[facility] [address] [place], [address] MCH (RBC) [Entitic mass] 30.4 pg Normal 27.0-32.0 [facility] Comment on above: Performed By: #### L 100.0100, L500.2500 ####[facility] [address] [place], [address] MCHC (RBC) [Mass/Vol] 33.6 g/dL Normal 32-36 [facility] Comment on above: Performed By: #### L 100.0100, L500.2500 ####[facility] [address] [place], [address] MCV (RBC) [Entitic vol] 90.4 fL Normal 81-99 [facility] Comment on above: Performed By: #### L 100.0100, L500.2500 ####[facility] [address] [place], [address] Monocytes/100 WBC (Bld) 9.2 % Normal 0-10 [facility] Comment on above: Performed By: #### L 100.0100, L500.2500 ####[facility] [address] [place], [address] Neutrophils/100 WBC (Bld) 55.4 % Normal 47-70 [facility] Comment on above: Performed By: #### L 100.0100, L500.2500 ####[facility] [address] [place], [address] Nucleated RBC (Bld) [#/Vol] 0 10*3/uL Normal 0-5 [facility] Comment on above: Performed By: #### L 100.0100, L500.2500 ####[facility] [address] [place], [address] Platelet mean volume (Bld) [Entitic vol] 10.5 fL Normal 6.2-12.0 [facility] Comment on above: Performed By: #### L 100.0100, L500.2500 ####[facility] [address] [place], [address] Platelets (Bld) [#/Vol] 325 10*3/uL Normal 150-450 [facility] Comment on above: Performed By: #### L 100.0100, L500.2500 ####[facility] [address] [place], [address] RBC (Bld) [#/Vol] 3.95 10*6/uL Low 4.2-5.4 [facility] Comment on above: Performed By: #### L 100.0100, L500.2500 ####[facility] [address] [place], [address] RDW SD 38.4 fl Normal 35.1-43.9 [facility] Comment on above: Performed By: #### L 100.0100, L500.2500 ####[facility] [address] [place], [address] WBC (Bld) [#/Vol] 9.1 10*3/uL Normal 4.4-11.0 [facility] Comment on above: Performed By: #### L 100.0100, L500.2500 ####[facility] [address] [place], [address] Basic Metabolic Profile (BMP )on 11-08-2024 BUN/CRE 26.1 RATIO High 10-20 [facility] Comment on above: Performed By: #### L 100.0100, L500.2500, L501.2300, L501.5200 ####[facility] [address] [place], [address] Calcium [Mass/Vol] 8.4 mg/dL Normal 7.6-11.0 [facility] Comment on above: Performed By: #### L 100.0100, L500.2500, L501.2300, L501.5200 ####[facility] [address] [place], [address] Chloride [Moles/Vol] 108 mmol/L Normal 98-108 [facility] Comment on above: Performed By: #### L 100.0100, L500.2500, L501.2300, L501.5200 ####[facility] [address] [place], [address] CO2 [Moles/Vol] 20.9 mmol/L Low 21.0-32.0 [facility] Comment on above: Performed By: #### L 100.0100, L500.2500, L501.2300, L501.5200 ####[facility] [address] [place], [address] Creatinine [Mass/Vol] 0.49 mg/dL Low 0.70-1.20 [facility] Comment on above: Performed By: #### L 100.0100, L500.2500, L501.2300, L501.5200 ####[facility] [address] [place], [address] ECRCL 151.59 ml/min Normal 50-250 [facility] Comment on above: Performed By: #### L 100.0100, L500.2500, L501.2300, L501.5200 ####[facility] [address] [place], [address] GAP 9 Normal 5-15 [facility] Comment on above: Performed By: #### L 100.0100, L500.2500, L501.2300, L501.5200 ####[facility] [address] [place], [address] GFR/1.73 sq M.predicted among non-blacks MDRD (S/P/Bld) [Vol rate/Area] 121 mL/min/{1.73_m2} Normal >60 [facility] Comment on above: Result Comment: mL/m in/1.73m2 CKD-EPI Creatinine Equation (2020) Performed By: #### L 100.0100, L500.2500, L501.2300, L501.5200 ####[facility] [address] [place], [address] Glucose [Mass/Vol] 94 mg/dL Normal 70-99 [facility] Comment on above: Performed By: #### L 100.0100, L500.2500, L501.2300, L501.5200 ####[facility] [address] [place], [address] Potassium [Moles/Vol] 4.3 mmol/L Normal 3.3-5.1 [facility] Comment on above: Performed By: #### L 100.0100, L500.2500, L501.2300, L501.5200 ####[facility] [address] [place], [address] Sodium [Moles/Vol] 138 mmol/L Normal 133-145 [facility] Comment on above: Performed By: #### L 100.0100, L500.2500, L501.2300, L501.5200 ####[facility] [address] [place], [address] Urea nitrogen [Mass/Vol] 13 mg/dL Normal 4-19 [facility] Comment on above: Performed By: #### L 100.0100, L500.2500, L501.2300, L501.5200 ####[facility] [address] [place], [address] CBC W/Diff, Automatedon 08-0 8-2024 Absolute Lymph 2.78 X10 3/uL Normal 0.83-4.51 [facility] Comment on above: Performed By: #### L 100.0100, L500.2500, L501.2300, L501.5200 ####[facility] [address] [place], [address] Absolute Neut 4.8 X10 3/uL Normal 2.0-7.7 [facility] Comment on above: Performed By: #### L 100.0100, L500.2500, L501.2300, L501.5200 ####[facility] [address] [place], [address] Basophils/100 WBC (Bld) 0.6 % Normal 0-1 [facility] Comment on above: Performed By: #### L 100.0100, L500.2500, L501.2300, L501.5200 ####[facility] [address] [place], [address] Eosinophils/100 WBC (Bld) 2.2 % Normal 0-5 [facility] Comment on above: Performed By: #### L 100.0100, L500.2500, L501.2300, L501.5200 ####[facility] [address] [place], [address] Erythrocyte distribution width (RBC) [Ratio] 11.7 % Normal 11.6-14.6 [facility] Comment on above: Performed By: #### L 100.0100, L500.2500, L501.2300, L501.5200 ####[facility] [address] [place], [address] Hematocrit (Bld) [Volume fraction] 39.2 % Normal 37-47 [facility] Comment on above: Performed By: #### L 100.0100, L500.2500, L501.2300, L501.5200 ####[facility] [address] [place], [address] Hemoglobin (Bld) [Mass/Vol] 13.0 g/dL Normal 12.0-15.0 [facility] Comment on above: Performed By: #### L 100.0100, L500.2500, L501.2300, L501.5200 ####[facility] [address] [place], [address] IG% 0.300 Normal 0.0-0.9 [facility] Comment on above: Result Comment: IG% - Immature Granulocytes (promyelocytes, myelocytes andmetamyelocytes) > 1% indicates that a LEFT SHIFT is Present. Performed By: #### L 100.0100, L500.2500, L501.2300, L501.5200 ####[facility] [address] [place], [address] Lymphocytes/100 WBC (Bld) 32.3 % Normal 19-41 [facility] Comment on above: Performed By: #### L 100.0100, L500.2500, L501.2300, L501.5200 ####[facility] [address] [place], [address] MCH (RBC) [Entitic mass] 30.5 pg Normal 27.0-32.0 [facility] Comment on above: Performed By: #### L 100.0100, L500.2500, L501.2300, L501.5200 ####[facility] [address] [place], [address] MCHC (RBC) [Mass/Vol] 33.2 g/dL Normal 32-36 [facility] Comment on above: Performed By: #### L 100.0100, L500.2500, L501.2300, L501.5200 ####[facility] [address] [place], [address] MCV (RBC) [Entitic vol] 92.0 fL Normal 81-99 [facility] Comment on above: Performed By: #### L 100.0100, L500.2500, L501.2300, L501.5200 ####[facility] [address] [place], [address] Monocytes/100 WBC (Bld) 9.0 % Normal 0-10 [facility] Comment on above: Performed By: #### L 100.0100, L500.2500, L501.2300, L501.5200 ####[facility] [address] [place], [address] Neutrophils/100 WBC (Bld) 55.6 % Normal 47-70 [facility] Comment on above: Performed By: #### L 100.0100, L500.2500, L501.2300, L501.5200 ####[facility] [address] [place], [address] Nucleated RBC (Bld) [#/Vol] 0 10*3/uL Normal 0-5 [facility] Comment on above: Performed By: #### L 100.0100, L500.2500, L501.2300, L501.5200 ####[facility] [address] [place], [address] Platelet mean volume (Bld) [Entitic vol] 10.7 fL Normal 6.2-12.0 [facility] Comment on above: Performed By: #### L 100.0100, L500.2500, L501.2300, L501.5200 ####[facility] [address] [place], [address] Platelets (Bld) [#/Vol] 329 10*3/uL Normal 150-450 [facility] Comment on above: Performed By: #### L 100.0100, L500.2500, L501.2300, L501.5200 ####[facility] [address] [place], [address] RBC (Bld) [#/Vol] 4.26 10*6/uL Normal 4.2-5.4 [facility] Comment on above: Performed By: #### L 100.0100, L500.2500, L501.2300, L501.5200 ####[facility] [address] [place], [address] RDW SD 39.6 fl Normal 35.1-43.9 [facility] Comment on above: Performed By: #### L 100.0100, L500.2500, L501.2300, L501.5200 ####[facility] [address] [place], [address] WBC (Bld) [#/Vol] 8.6 10*3/uL Normal 4.4-11.0 [facility] Comment on above: Performed By: #### L 100.0100, L500.2500, L501.2300, L501.5200 ####[facility] [address] [place], [address] Magnesiumon 11-08-2024 Magnesium [Mass/Vol] 2.4 mg/dL High 1.5-2.2 [facility] Comment on above: Performed By: #### L 100.0100, L500.2500, L501.2300, L501.5200 ####[facility] [address] [place], [address] Magnesium measurement (mass/ volume)Ordered By: Nehemiah Hammond on 11-08-2024 Magnesium (Unsp spec) [Mass/Vol] 2.4 mg/dL High 1.5-2.2 [facility] Phosphoruson 11-08-2024 Phosphate [Mass/Vol] 3.5 mg/dL Normal 2.7-4.5 [facility] Comment on above: Performed By: #### L 100.0100, L500.2500, L501.2300, L501.5200 ####[facility] [address] [place], [address] CBC W/Diff, Automatedon 08-0 Absolute Lymph 2.57 X10 3/uL Normal 0.83-4.51 [facility] Comment on above: Performed By: #### L 100.0100 ####[facility] [address] [place], [address] Absolute Neut 6.8 X10 3/uL Normal 2.0-7.7 [facility] Comment on above: Performed By: #### L 100.0100 ####[facility] [address] [place], [address] Basophils/100 WBC (Bld) 0.4 % Normal 0-1 [facility] Comment on above: Performed By: #### L 100.0100 ####[facility] [address] [place], [address] Eosinophils/100 WBC (Bld) 1.7 % Normal 0-5 [facility] Comment on above: Performed By: #### L 100.0100 ####[facility] [address] [place], [address] Erythrocyte distribution width (RBC) [Ratio] 11.7 % Normal 11.6-14.6 [facility] Comment on above: Performed By: #### L 100.0100 ####[facility] [address] [place], [address] Hematocrit (Bld) [Volume fraction] 46.2 % Normal 37-47 [facility] Comment on above: Performed By: #### L 100.0100 ####[facility] [address] [place], [address] Hemoglobin (Bld) [Mass/Vol] 15.8 g/dL High 12.0-15.0 [facility] Comment on above: Performed By: #### L 100.0100 ####[facility] [address] [place], [address] IG% 0.300 Normal 0.0-0.9 [facility] Comment on above: Result Comment: IG% - Immature Granulocytes (promyelocytes, myelocytes andmetamyelocytes) > 1% indicates that a LEFT SHIFT is Present. Performed By: #### L 100.0100 ####[facility] [address] [place], [address] Lymphocytes/100 WBC (Bld) 24.1 % Normal 19-41 [facility] Comment on above: Performed By: #### L 100.0100 ####[facility] [address] [place], [address] MCH (RBC) [Entitic mass] 31.0 pg Normal 27.0-32.0 [facility] Comment on above: Performed By: #### L 100.0100 ####[facility] [address] [place], [address] MCHC (RBC) [Mass/Vol] 34.2 g/dL Normal 32-36 [facility] Comment on above: Performed By: #### L 100.0100 ####[facility] [address] [place], [address] MCV (RBC) [Entitic vol] 90.6 fL Normal 81-99 [facility] Comment on above: Performed By: #### L 100.0100 ####[facility] [address] [place], [address] Monocytes/100 WBC (Bld) 9.6 % Normal 0-10 [facility] Comment on above: Performed By: #### L 100.0100 ####[facility] [address] [place], [address] Neutrophils/100 WBC (Bld) 63.9 % Normal 47-70 [facility] Comment on above: Performed By: #### L 100.0100 ####[facility] [address] [place], [address] Nucleated RBC (Bld) [#/Vol] 0 10*3/uL Normal 0-5 [facility] Comment on above: Performed By: #### L 100.0100 ####[facility] [address] [place], [address] Platelet mean volume (Bld) [Entitic vol] 10.2 fL Normal 6.2-12.0 [facility] Comment on above: Performed By: #### L 100.0100 ####[facility] [address] [place], [address] Platelets (Bld) [#/Vol] 382 10*3/uL Normal 150-450 [facility] Comment on above: Performed By: #### L 100.0100 ####[facility] [address] [place], [address] RBC (Bld) [#/Vol] 5.10 10*6/uL Normal 4.2-5.4 [facility] Comment on above: Performed By: #### L 100.0100 ####[facility] [address] [place], [address] RDW SD 38.9 fl Normal 35.1-43.9 [facility] Comment on above: Performed By: #### L 100.0100 ####[facility] [address] [place], [address] WBC (Bld) [#/Vol] 10.7 10*3/uL Normal 4.4-11.0 [facility] Comment on above: Performed By: #### L 100.0100 ####[facility] [address] [place], [address] CBC-Complete Blood Cnt No ffon 11-07-2024 Erythrocyte distribution width (RBC) [Ratio] 11.8 % Normal 11.6-14.6 [facility] Comment on above: Performed By: #### L 100.0500 ####[facility] [address] [place], [address] Hematocrit (Bld) [Volume fraction] 46.4 % Normal 37-47 [facility] Comment on above: Performed By: #### L 100.0500 ####[facility] [address] [place], [address] Hemoglobin (Bld) [Mass/Vol] 15.4 g/dL High 12.0-15.0 [facility] Comment on above: Performed By: #### L 100.0500 ####[facility] [address] [place], [address] MCH (RBC) [Entitic mass] 30.6 pg Normal 27.0-32.0 [facility] Comment on above: Performed By: #### L 100.0500 ####[facility] [address] [place], [address] MCHC (RBC) [Mass/Vol] 33.2 g/dL Normal 32-36 [facility] Comment on above: Performed By: #### L 100.0500 ####[facility] [address] [place], [address] MCV (RBC) [Entitic vol] 92.2 fL Normal 81-99 [facility] Comment on above: Performed By: #### L 100.0500 ####[facility] [address] [place], [address] Platelet mean volume (Bld) [Entitic vol] 10.4 fL Normal 6.2-12.0 [facility] Comment on above: Performed By: #### L 100.0500 ####[facility] [address] [place], [address] Platelets (Bld) [#/Vol] 424 10*3/uL Normal 150-450 [facility] Comment on above: Performed By: #### L 100.0500 ####[facility] [address] [place], [address] RBC (Bld) [#/Vol] 5.03 10*6/uL Normal 4.2-5.4 [facility] Comment on above: Performed By: #### L 100.0500 ####[facility] [address] [place], [address] RDW SD 39.5 fl Normal 35.1-43.9 [facility] Comment on above: Performed By: #### L 100.0500 ####[facility] [address] [place], [address] WBC (Bld) [#/Vol] 11.0 10*3/uL Normal 4.4-11.0 [facility] Comment on above: Performed By: #### L 100.0500 ####[facility] [address] [place], [address] Basic Metabolic Profile (BMP )on 11-06-2024 BUN/CRE 29.5 RATIO High 10-20 [facility] Comment on above: Performed By: #### L 100.0100, L500.2500 ####[facility] [address] [place], [address] Calcium [Mass/Vol] 9.5 mg/dL Normal 7.6-11.0 [facility] Comment on above: Performed By: #### L 100.0100, L500.2500 ####[facility] [address] [place], [address] Chloride [Moles/Vol] 101 mmol/L Normal 98-108 [facility] Comment on above: Performed By: #### L 100.0100, L500.2500 ####[facility] [address] [place], [address] CO2 [Moles/Vol] 22.2 mmol/L Normal 21.0-32.0 [facility] Comment on above: Performed By: #### L 100.0100, L500.2500 ####[facility] [address] [place], [address] Creatinine [Mass/Vol] 0.58 mg/dL Low 0.70-1.20 [facility] Comment on above: Performed By: #### L 100.0100, L500.2500 ####[facility] [address] [place], [address] ECRCL 128.07 ml/min Normal 50-250 [facility] Comment on above: Performed By: #### L 100.0100, L500.2500 ####[facility] [address] [place], [address] GAP 15 Normal 5-15 [facility] Comment on above: Performed By: #### L 100.0100, L500.2500 ####[facility] [address] [place], [address] GFR/1.73 sq M.predicted among non-blacks MDRD (S/P/Bld) [Vol rate/Area] 117 mL/min/{1.73_m2} Normal >60 [facility] Comment on above: Result Comment: mL/m in/1.73m2 CKD-EPI Creatinine Equation (2020) Performed By: #### L 100.0100, L500.2500 ####[facility] [address] [place], [address] Glucose [Mass/Vol] 112 mg/dL High 70-99 [facility] Comment on above: Performed By: #### L 100.0100, L500.2500 ####[facility] [address] [place], [address] Potassium [Moles/Vol] 3.9 mmol/L Normal 3.3-5.1 [facility] Comment on above: Performed By: #### L 100.0100, L500.2500 ####[facility] [address] [place], [address] Sodium [Moles/Vol] 138 mmol/L Normal 133-145 [facility] Comment on above: Performed By: #### L 100.0100, L500.2500 ####[facility] [address] [place], [address] Urea nitrogen [Mass/Vol] 17 mg/dL Normal 4-19 [facility] Comment on above: Performed By: #### L 100.0100, L500.2500 ####[facility] [address] [place], [address] CBC W/Diff, Automatedon 08-0 6-2025 Absolute Lymph 2.66 X10 3/uL Normal 0.83-4.51 [facility] Comment on above: Performed By: #### L 100.0100, L500.2500 ####[facility] [address] [place], [address] Absolute Neut 5.7 X10 3/uL Normal 2.0-7.7 [facility] Comment on above: Performed By: #### L 100.0100, L500.2500 ####[facility] [address] [place], [address] Basophils/100 WBC (Bld) 0.7 % Normal 0-1 [facility] Comment on above: Performed By: #### L 100.0100, L500.2500 ####[facility] [address] [place], [address] Eosinophils/100 WBC (Bld) 1.7 % Normal 0-5 [facility] Comment on above: Performed By: #### L 100.0100, L500.2500 ####[facility] [address] [place], [address] Erythrocyte distribution width (RBC) [Ratio] 11.9 % Normal 11.6-14.6 [facility] Comment on above: Performed By: #### L 100.0100, L500.2500 ####[facility] [address] [place], [address] Hematocrit (Bld) [Volume fraction] 52.1 % High 37-47 [facility] Comment on above: Performed By: #### L 100.0100, L500.2500 ####[facility] [address] [place], [address] Hemoglobin (Bld) [Mass/Vol] 17.4 g/dL High 12.0-15.0 [facility] Comment on above: Performed By: #### L 100.0100, L500.2500 ####[facility] [address] [place], [address] IG% 0.400 Normal 0.0-0.9 [facility] Comment on above: Result Comment: IG% - Immature Granulocytes (promyelocytes, myelocytes andmetamyelocytes) > 1% indicates that a LEFT SHIFT is Present. Performed By: #### L 100.0100, L500.2500 ####[facility] [address] [place], [address] Lymphocytes/100 WBC (Bld) 27.6 % Normal 19-41 [facility] Comment on above: Performed By: #### L 100.0100, L500.2500 ####[facility] [address] [place], [address] MCH (RBC) [Entitic mass] 30.1 pg Normal 27.0-32.0 [facility] Comment on above: Performed By: #### L 100.0100, L500.2500 ####[facility] [address] [place], [address] MCHC (RBC) [Mass/Vol] 33.4 g/dL Normal 32-36 [facility] Comment on above: Performed By: #### L 100.0100, L500.2500 ####[facility] [address] [place], [address] MCV (RBC) [Entitic vol] 90.1 fL Normal 81-99 [facility] Comment on above: Performed By: #### L 100.0100, L500.2500 ####[facility] [address] [place], [address] Monocytes/100 WBC (Bld) 10.9 % High 0-10 [facility] Comment on above: Performed By: #### L 100.0100, L500.2500 ####[facility] [address] [place], [address] Neutrophils/100 WBC (Bld) 58.7 % Normal 47-70 [facility] Comment on above: Performed By: #### L 100.0100, L500.2500 ####[facility] [address] [place], [address] Nucleated RBC (Bld) [#/Vol] 0 10*3/uL Normal 0-5 [facility] Comment on above: Performed By: #### L 100.0100, L500.2500 ####[facility] [address] [place], [address] Platelet mean volume (Bld) [Entitic vol] 10.3 fL Normal 6.2-12.0 [facility] Comment on above: Performed By: #### L 100.0100, L500.2500 ####[facility] [address] [place], [address] Platelets (Bld) [#/Vol] 361 10*3/uL Normal 150-450 [facility] Comment on above: Performed By: #### L 100.0100, L500.2500 ####[facility] [address] [place], [address] RBC (Bld) [#/Vol] 5.78 10*6/uL High 4.2-5.4 [facility] Comment on above: Performed By: #### L 100.0100, L500.2500 ####[facility] [address] [place], [address] RDW SD 39.6 fl Normal 35.1-43.9 [facility] Comment on above: Performed By: #### L 100.0100, L500.2500 ####[facility] [address] [place], [address] WBC (Bld) [#/Vol] 9.6 10*3/uL Normal 4.4-11.0 [facility] Comment on above: Performed By: #### L 100.0100, L500.2500 ####[facility] [address] [place], [address] HH, Hemoglobin AND Hematocri ton 11-06-2024 Hematocrit (Bld) [Volume fraction] 51.2 % High 37-47 [facility] Comment on above: Performed By: #### L 100.0600 ####[facility] [address] [place], [address] Hemoglobin (Bld) [Mass/Vol] 17.0 g/dL High 12.0-15.0 [facility] Comment on above: Performed By: #### L 100.0600 ####[facility] [address] [place], [address] Magnesiumon 11-06-2024 Magnesium [Mass/Vol] 2.3 mg/dL High 1.5-2.2 [facility] Comment on above: Performed By: #### L 501.5200 ####[facility] [address] [place], [address] Abdomen Completeon Abdomen Complete Normal [facility] Abdomen/Pelvis WITH Contrast on 11-05-2024 Abdomen/Pelvis WITH Contrast Normal [facility] Basic Metabolic Profile (BMP )on 11-05-2024 BUN Normal 4-19 [facility] Comment on above: Result Comment: Canc elled via OM: Ordered Performed By: #### L 500.2500, L100.0500 ####[facility] [address] [place], [address] BUN/CRE Normal 10-20 [facility] Comment on above: Result Comment: Canc elled via OM: MD Ordered Performed By: #### L 500.2500, L100.0500 ####[facility] [address] [place], [address] Calcium Normal 7.6-11.0 [facility] Comment on above: Result Comment: Canc elled via OM: MD Ordered Performed By: #### L 500.2500, L100.0500 ####[facility] [address] [place], [address] CL Normal 98-108 [facility] Comment on above: Result Comment: Canc elled via OM: MD Ordered Performed By: #### L 500.2500, L100.0500 ####[facility] [address] [place], [address] CO2 Normal 21.0-32.0 [facility] Comment on above: Result Comment: Canc elled via OM: MD Ordered Performed By: #### L 500.2500, L100.0500 ####[facility] [address] [place], [address] CREAT,SERUM Normal 0.70-1.20 [facility] Comment on above: Result Comment: Canc elled via OM: MD Ordered Performed By: #### L 500.2500, L100.0500 ####[facility] [address] [place], [address] eGFR Normal >60 [facility] Comment on above: Result Comment: Canc elled via OM: MD Ordered Performed By: #### L 500.2500, L100.0500 ####[facility] [address] [place], [address] GAP Normal 5-15 [facility] Comment on above: Result Comment: Canc elled via OM: MD Ordered Performed By: #### L 500.2500, L100.0500 ####[facility] [address] [place], [address] GLU Normal 70-99 [facility] Comment on above: Result Comment: Canc elled via OM: MD Ordered Performed By: #### L 500.2500, L100.0500 ####[facility] [address] [place], [address] Potassium Normal 3.3-5.1 [facility] Comment on above: Result Comment: Canc elled via OM: MD Ordered Performed By: #### L 500.2500, L100.0500 ####[facility] [address] [place], [address] Basic Metabolic Profile (BMP) Normal 133-145 [facility] Comment on above: Result Comment: Canc elled via OM: MD Ordered Performed By: #### L 500.2500, L100.0500 ####[facility] [address] [place], [address] CBC-Complete Blood Cnt No Di ffon 11-05-2024 Erythrocyte distribution width (RBC) [Ratio] 12.1 % Normal 11.6-14.6 [facility] Comment on above: Performed By: #### L 500.2500, L100.0500 ####[facility] [address] [place], [address] Hematocrit (Bld) [Volume fraction] 52.8 % High 37-47 [facility] Comment on above: Performed By: #### L 500.2500, L100.0500 ####[facility] [address] [place], [address] Hemoglobin (Bld) [Mass/Vol] 17.5 g/dL High 12.0-15.0 [facility] Comment on above: Performed By: #### L 500.2500, L100.0500 ####[facility] [address] [place], [address] MCH (RBC) [Entitic mass] 29.9 pg Normal 27.0-32.0 [facility] Comment on above: Performed By: #### L 500.2500, L100.0500 ####[facility] [address] [place], [address] MCHC (RBC) [Mass/Vol] 33.1 g/dL Normal 32-36 [facility] Comment on above: Performed By: #### L 500.2500, L100.0500 ####[facility] [address] [place], [address] MCV (RBC) [Entitic vol] 90.3 fL Normal 81-99 [facility] Comment on above: Performed By: #### L 500.2500, L100.0500 ####[facility] [address] [place], [address] Platelet mean volume (Bld) [Entitic vol] 10.3 fL Normal 6.2-12.0 [facility] Comment on above: Performed By: #### L 500.2500, L100.0500 ####[facility] [address] [place], [address] Platelets (Bld) [#/Vol] 342 10*3/uL Normal 150-450 [facility] Comment on above: Performed By: #### L 500.2500, L100.0500 ####[facility] [address] [place], [address] RBC (Bld) [#/Vol] 5.85 10*6/uL High 4.2-5.4 [facility] Comment on above: Performed By: #### L 500.2500, L100.0500 ####[facility] [address] [place], [address] RDW SD 40.9 fl Normal 35.1-43.9 [facility] Comment on above: Performed By: #### L 500.2500, L100.0500 ####[facility] [address] [place], [place], [address] WBC (Bld) [#/Vol] 12.9 10*3/uL High 4.4-11.0 [facility] Comment on above: Performed By: #### L 500.2500, L100.0500 ####[facility] [address] [place], [place], [address] Erythropoietinon 11-05-2024 ERYTHROPOIETIN 2.1 mIU/mL Low 2.6-18.5 [facility] Comment on above: Result Comment: [employer] DxI 800 Immunoassay SystemValues obtained with different assay methods or kits cannotbe used interchangeably. Results cannot be interpreted asabsolute evidence of the presence or absence of malignantdisease.Performed at: [facility] [id number] Director: Dl Campuzano PhD, Phone: [phone] Performed By: #### L 7450.4734 ####[facility] [address] [place], [place], [address] 12 Lead EKGon 11-04-2024 12 Lead EKG [...] poor plasma by coagulation aOrdered By: Law Eduardo on 11-04-2024 aPTT Coag (PPP) [Time] 27.0 s 24.1-36.2 [facility] Automated lymphocyte count a s percentage [...] By: #### L 100.0100 ####[facility] [address] [place], [address] Absolute Neut 7.9 X10 3/uL High 2.0-7.7 [facility] Comment on above: Performed By: #### L 100.0100 ####[facility] [address] [place], [address] Basophils/100 WBC (Bld) 0.4 % Normal 0-1 [facility] Comment on above: Performed By: #### L 100.0100 ####[facility] [address] [place], [address] Eosinophils/100 WBC (Bld) 0.6 % Normal 0-5 [facility] Comment on above: Performed By: #### L 100.0100 ####[facility] [address] [place], [address] Erythrocyte distribution width (RBC) [Ratio] 12.8 % Normal 11.6-14.6 [facility] Comment on above: Performed By: #### L 100.0100 ####[facility] [address] [place], [address] Hematocrit (Bld) [Volume fraction] 54.0 % High 37-47 [facility] Comment on above: Performed By: #### L 100.0100 ####[facility] [address] [place], [address] Hemoglobin (Bld) [Mass/Vol] 17.7 g/dL High 12.0-15.0 [facility] Comment on above: Performed By: #### L 100.0100 ####[facility] [address] [place], [address] IG% 0.200 Normal 0.0-0.9 [facility] Comment on above: Result Comment: IG% - Immature Granulocytes (promyelocytes, myelocytes andmetamyelocytes) > 1% indicates that a LEFT SHIFT is Present. Performed By: #### L 100.0100 ####[facility] [address] [place], [address] Lymphocytes/100 WBC (Bld) 24.9 % Normal 19-41 [facility] Comment on above: Performed By: #### L 100.0100 ####[facility] [address] [place], [address] MCH (RBC) [Entitic mass] 29.8 pg Normal 27.0-32.0 [facility] Comment on above: Performed By: #### L 100.0100 ####[facility] [address] [place], [address] MCHC (RBC) [Mass/Vol] 32.8 g/dL Normal 32-36 [facility] Comment on above: Performed By: #### L 100.0100 ####[facility] [address] [place], [address] MCV (RBC) [Entitic vol] 91.1 fL Normal 81-99 [facility] Comment on above: Performed By: #### L 100.0100 ####[facility] [address] [place], [address] Monocytes/100 WBC (Bld) 8.2 % Normal 0-10 [facility] Comment on above: Performed By: #### L 100.0100 ####[facility] [address] [place], [address] Neutrophils/100 WBC (Bld) 65.7 % Normal 47-70 [facility] Comment on above: Performed By: #### L 100.0100 ####[facility] [address] [place], [address] Nucleated RBC (Bld) [#/Vol] 0 10*3/uL Normal 0-5 [facility] Comment on above: Performed By: #### L 100.0100 ####[facility] [address] [place], [address] Platelet mean volume (Bld) [Entitic vol] 10.2 fL Normal 6.2-12.0 [facility] Comment on above: Performed By: #### L 100.0100 ####[facility] [address] [place], [address] Platelets (Bld) [#/Vol] 377 10*3/uL Normal 150-450 [facility] Comment on above: Performed By: #### L 100.0100 ####[facility] [address] [place], [address] RBC (Bld) [#/Vol] 5.93 10*6/uL High 4.2-5.4 [facility] Comment on above: Performed By: #### L 100.0100 ####[facility] [address] [place], [address] RDW SD 43.2 fl Normal 35.1-43.9 [facility] Comment on above: Performed By: #### L 100.0100 ####[facility] [address] [place], [address] WBC (Bld) [#/Vol] 12.1 10*3/uL High 4.4-11.0 [facility] Comment on above: Performed By: #### L 100.0100 ####[facility] [address] [place], [address] Consultation - Cardiologyon 11-04-2024 Consultation - Cardiology [...] [facility] 11-04-2024 H&P Exam - Hospitalist Normal [facility] Hematocrit Auto (Bld) [Volum e fraction]Ordered [...] Result Comment: Tech nical Component performed at [facility] RTPProfessional Component performed by:Lisbet Price, PhD, FACMGDirector, Molecular OncologyLabco [id number] [facility] [phone] test was developed and its performance characteristicsdetermined by [employer]. It has not been cleared orapproved by the Food and Drug Administration.Performed at: [facility] [id number] theRightAPI [facility] C, [place], [place] [id number] Director: Neil Campos [facility], Phone: [phone] at: [facility] [id number] [place], [place] [id number] Director: Neil Campos [facility], Phone: [phone] Performed By: #### L 3440.5000 ####[facility] [address] [place], [address] JAK2 COMMENT 2 Comment Normal . [facility] Comment on above: Result Comment: JAK2 is a cytoplasmic tyrosine kinase with a connell role insignal transduction from multiple hematopoietic growthfactor receptors. 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 The Wis.dm Absolute Quantitation softwarewill compare the patient specimen valuse to the standardcurves and generate percent values for wild type andmutant type. In vitro studies have indicated that thisassay has an analytical sensitivity of 1%.References:Solo EJ, Roger LM, Macho PJ, et al. Acquiredmutation of the tyrosine kinase JAK2 in humanmyeloproliferative disorders. Lancet. 2005 Jun 19;365(9259):7203-3794. Tong Bolden, Geraldo V, Pito Curry JP. Aunique clonal JAK2 mutation leading to constitutivesignaling causes polycythaemia vera. Nature. 2005 Jul 29;499(9302):1330-2022.Maryann R, Aly F, Joseph , et al. A zxrz-vb-euuavbfy mutation of JAK2 in myeloproliferative disorders.N Engl J Med. 2005 Jul 29; 352(17):3486-5272. Performed By: #### L 3440.5000 ####[facility] [address] [place], [place], [address] JAK2 MUT QUAL Comment Normal . [facility] Comment on above: Result Comment: Resu lt: NEGATIVE for the JAK2 V617F mutation.Interpretation: The G to T nucleotide change encoding [id number] mutation was not detected. This result does [...] with these disorders. Performed By: #### L 3440.5000 ####[facility] [address] [place], [place], [address] L501.4021on 11-04-2024 Trop T High Sen 26 ng/L High <=14 [facility] Comment on above: Order Comment: CIARA Miller. PREVIOUS SPECIMEN REJECTED DUE TOHEMOLYSIS. 11/04/24 Comfort Garcia. Performed By: #### L 501.4021 ####[facility] [address] [place], [place], [address] MCV (mean corpuscular volume ) determinationOrdered By: Luis Ravi on 11-04-2024 MCV (RBC) [Entitic vol] 91.1 fL 81-99 [facility] Mean corpuscular hemoglobin (MCH) determinationOrdered By: Luis Ravi on 11-04-2024 MCH (RBC) [Entitic mass] 29.8 pg 27.0-32.0 [facility] Mean corpuscular hemoglobin concentration (MCHC) determinationOrdered By: Luis Ravi on 11-04-2024 MCHC (RBC) [Mass/Vol] 32.8 g/dL 32-36 [facility] Mean platelet volume determi nationOrdered By: Luis Ravi on 11-04-2024 Platelet mean volume (Bld) [Entitic vol] 10.2 fL 6.2-12.0 [facility] Monocyte percentageOrdered B y: Luis Ravi on 11-04-2024 Monocytes/100 WBC (Bld) 8.2 % 0-10 [facility] Neutrophil percentageOrdered By: Luis Ravi on 11-04-2024 Neutrophils/100 WBC (Bld) 65.7 % 47-70 [facility] No Panel InformationOrdered By: Kaleb Horta on 11-04-2024 Comment . [facility] Nucleated red blood cell per centageOrdered By: Luis Ravi on 11-04-2024 Nucleated RBC/100 WBC (Bld) [Ratio] 0 % 0-5 [facility] Partial Thromboplast Timeon 11-04-2024 aPTT Coag (Bld) [Time] 27.0 s Normal 24.1-36.2 [facility] Comment on above: Performed By: #### L 300.4310 ####[facility] [address] [place], [place], [address] Platelet countOrdered By: Aurelio Ravi on 11-04-2024 Platelets (Bld) [#/Vol] 377 10*3/uL 150-450 [facility] ,Urineon 11-04-2024 Beta HCG ( test) Ql (U) Negative Normal [facility] Comment on above: Result Comment: Very dilute urine specimens, as indicated by a low specificgravity, may not contain guest relations representative levels of hCG.If is still suspected, a first morning urinespecimen should be collected 48 hours later and tested. Performed By: #### L 400.9120 ####[facility] [address] [place], [place], [address] RBC Auto (Bld) [#/Vol]Ordere d By: Luis Ravi on 11-04-2024 RBC (Bld) [#/Vol] 5.93 10*6/uL High 4.2-5.4 [facility] Serum or plasma erythropoiet in (EPO) measurement (units/volume)Ordered By: Netta Domingo on 11-04-2024 Erythropoietin (EPO) Qn 2.1 mIU/mL Low 2.6-18.5 [facility] Comment on above: Heather Christin UniC el DxI 800 Immunoassay SystemValues obtained with different assay methods or kits cannotbe used interchangeably. Results cannot be interpreted asabsolute evidence of the presence or absence of malignantdisease.Performed at: [facility] [address] [id number] Director: Dl Campuzano PhD, Phone: [phone] Troponin T HS 2 HRon 025 Trop T High Sen 31 ng/L High <=14 [facility] Comment on above: Performed By: #### L 499.0042 ####[facility] [address] [place], [address] Trop T High Sen Normal <=14 [facility] Comment on above: Result Comment: WAS DRAWN ON PCU UNDER PCU DR ORDER Performed By: #### L 499.0042 ####[facility] [address] [place], [address] Troponin T HS 4 HRon 025 Trop T High Sen 48 ng/L High <=14 [facility] Comment on above: Result Comment: Hemo lysis present, Results??could be affected.?? Performed By: #### L 499.0043 ####[facility] [address] [place], [address] Trop T High Sen Normal <=14 [facility] Comment on above: Result Comment: Canc elled via OM: Order cancelled - Patient discharged Performed By: #### L 499.0043 ####[facility] [address] [place], [address] Troponin T.cardiac [Mass/vol ume] in Serum or Plasma by High sensitivity methodOrdered By: Netta Domingo on 11-04-2024 Troponin T.cardiac High sensitivity [...] by a low specificgravity, may not contain guest relations representative levels of hCG. If is still suspected, a first morning urinespecimen should be collected 48 hours later and tested. White blood cell (WBC) count Ordered By: Luis Ravi on 11-04-2024 WBC (Bld) [#/Vol] 12.1 10*3/uL High 4.4-11.0 [facility] Anion gap in Serum or Plasma Ordered By: Luis Ravi on 11-03-2024 Anion gap [Moles/Vol] 19 mmol/L High 5-15 [facility] BUN/creatinine ratioOrdered By: Luis Ravi on 11-03-2024 Urea nitrogen/Creatinine [Mass ratio] 31.0 mg/mg High 10-20 [facility] Basic Metabolic Profile (BMP )on 11-03-2024 BUN/CRE 31.0 RATIO High 10-20 [facility] Comment on above: Performed By: #### L 500.2500 ####[facility] [address] [place], [address] Calcium [Mass/Vol] 10.2 mg/dL Normal 7.6-11.0 [facility] Comment on above: Performed By: #### L 500.2500 ####[facility] [address] [place], [address] Chloride [Moles/Vol] 99 mmol/L Normal 98-108 [facility] Comment on above: Performed By: #### L 500.2500 ####[facility] [address] [place], [address] CO2 [Moles/Vol] 19.6 mmol/L Low 21.0-32.0 [facility] Comment on above: Performed By: #### L 500.2500 ####[facility] [address] [place], [address] Creatinine [Mass/Vol] 0.69 mg/dL Low 0.70-1.20 [facility] Comment on above: Performed By: #### L 500.2500 ####[facility] [address] [place], [address] ECRCL 105.73 ml/min Normal 50-250 [facility] Comment on above: Performed By: #### L 500.2500 ####[facility] [address] [place], [address] GAP 19 High 5-15 [facility] Comment on above: Performed By: #### L 500.2500 ####[facility] [address] [place], [address] GFR/1.73 sq M.predicted among non-blacks MDRD (S/P/Bld) [Vol rate/Area] 112 mL/min/{1.73_m2} Normal >60 [facility] Comment on above: Result Comment: mL/m in/1.73m2 CKD-EPI Creatinine Equation (2020) Performed By: #### L 500.2500 ####[facility] [address] [place], [address] Glucose [Mass/Vol] 122 mg/dL High 70-99 [facility] Comment on above: Performed By: #### L 500.2500 ####[facility] [address] [place], [address] Potassium [Moles/Vol] 4.0 mmol/L Normal 3.3-5.1 [facility] Comment on above: Result Comment: Hemo lysis present, Results??could be affected.?? Performed By: #### L 500.2500 ####[facility] [address] [place], [address] Sodium [Moles/Vol] 138 mmol/L Normal 133-145 [facility] Comment on above: Performed By: #### L 500.2500 ####[facility] [address] [place], [address] Urea nitrogen [Mass/Vol] 21 mg/dL High 4-19 [facility] Comment on above: Performed By: #### L 500.2500 ####[facility] [address] [place], [address] Bilirubin Test strip Ql (U)O rdered By: Netta Domingo on 11-03-2024 Bilirubin Ql (U) Negative Negative [facility] CBC W/Diff, Automatedon 08-0 Hematocrit (Bld) [Volume fraction] 58.5 % High 37-47 [facility] Comment on above: Order Comment: CRITI MONICA VALUE CALLED TO PATRICK MORENO11/03/24 0720 Елена Lewis.RESULTS READ BACK BY SAME. Performed By: #### L 100.0100 ####[facility] [address] [place], [address] Absolute Lymph 2.41 X10 3/uL Normal 0.83-4.51 [facility] Comment on above: Order Comment: CRITI MONICA VALUE CALLED TO PATRICK MORENO11/03/24 0720 Елена Joshua.RESULTS READ BACK BY SAME. Performed By: #### L 100.0100 ####[facility] [address] [place], [address] Absolute Neut 13.7 X10 3/uL High 2.0-7.7 [facility] Comment on above: Order Comment: CRITI MONICA VALUE CALLED TO PATRICK MORENO11/03/24 0720 Елена Joshua.RESULTS READ BACK BY SAME. Performed By: #### L 100.0100 ####[facility] [address] [place], [address] Basophils/100 WBC (Bld) 0.5 % Normal 0-1 [facility] Comment on above: Order Comment: CRITI MONICA VALUE CALLED TO PATRICK MORENO11/03/24719 Елена Lewis.RESULTS READ BACK BY SAME. Performed By: #### L 100.0100 ####[facility] [address] [place], [address] Eosinophils/100 WBC (Bld) 0.3 % Normal 0-5 [facility] Comment on above: Order Comment: CRITI MONICA VALUE CALLED TO PATRICK MORENO11/03/24719 Елена Lewis.RESULTS READ BACK BY SAME. Performed By: #### L 100.0100 ####[facility] [address] [place], [address] Erythrocyte distribution width (RBC) [Ratio] 12.9 % Normal 11.6-14.6 [facility] Comment on above: Order Comment: CRITI MONICA VALUE CALLED TO PATRICK PEOPLES719 Елена Lewis.RESULTS READ BACK BY SAME. Performed By: #### L 100.0100 ####[facility] [address] [place], [address] Hemoglobin (Bld) [Mass/Vol] 19.2 g/dL Invalid Interpretation Code 12.0-15.0 [facility] Comment on above: Order Comment: CRITI MONICA VALUE CALLED TO PATRICK PEOPLES719 Елена Lewis.RESULTS READ BACK BY SAME. Performed By: #### L 100.0100 ####[facility] [address] [place], [address] IG% 0.500 Normal 0.0-0.9 [facility] Comment on above: Order Comment: CRITI MONICA VALUE CALLED TO PATRICK PEOPLES20 Елена Lewis.RESULTS READ BACK BY SAME. Result Comment: IG% - Immature Granulocytes (promyelocytes, myelocytes andmetamyelocytes) > 1% indicates that a LEFT SHIFT is Present. Performed By: #### L 100.0100 ####[facility] [address] [place], [address] Lymphocytes/100 WBC (Bld) 13.7 % Low 19-41 [facility] Comment on above: Order Comment: CRITI MONICA VALUE CALLED TO PATRICK ZOBTSFY38/03/25 0720 Елена Lewis.RESULTS READ BACK BY SAME. Performed By: #### L 100.0100 ####[facility] [address] [place], [address] MCH (RBC) [Entitic mass] 29.9 pg Normal 27.0-32.0 [facility] Comment on above: Order Comment: CRITI MONICA VALUE CALLED TO PATRICK HOOVERTLER11/03/24 0720 Елена Lewis.RESULTS READ BACK BY SAME. Performed By: #### L 100.0100 ####[facility] [address] [place], [address] MCHC (RBC) [Mass/Vol] 32.8 g/dL Normal 32-36 [facility] Comment on above: Order Comment: CRITI MONICA VALUE CALLED TO PATRICK HOOVERTLER11/03/24 0720 Елена Lewis.RESULTS READ BACK BY SAME. Performed By: #### L 100.0100 ####[facility] [address] [place], [address] MCV (RBC) [Entitic vol] 91.1 fL Normal 81-99 [facility] Comment on above: Order Comment: CRITI MONICA VALUE CALLED TO PATRICK HOOVERTLER11/03/24 0720 Елена Lewis.RESULTS READ BACK BY SAME. Performed By: #### L 100.0100 ####[facility] [address] [place], [address] Monocytes/100 WBC (Bld) 7.3 % Normal 0-10 [facility] Comment on above: Order Comment: CRITI MONICA VALUE CALLED TO PATRICK RKBFVSN74/03/25719 Елена Lewis.RESULTS READ BACK BY SAME. Performed By: #### L 100.0100 ####[facility] [address] [place], [address] Neutrophils/100 WBC (Bld) 77.7 % High 47-70 [facility] Comment on above: Order Comment: CRITI MONICA VALUE CALLED TO PATRICK MORENO11/03/24719 Елена Lewis.RESULTS READ BACK BY SAME. Performed By: #### L 100.0100 ####[facility] [address] [place], [address] Nucleated RBC (Bld) [#/Vol] 0 10*3/uL Normal 0-5 [facility] Comment on above: Order Comment: CRITI MONICA VALUE CALLED TO PATRICK MORENO11/03/24719 Еленаmalcolm Lewis.RESULTS READ BACK BY SAME. Performed By: #### L 100.0100 ####[facility] [address] [place], [address] Platelet mean volume (Bld) [Entitic vol] 10.3 fL Normal 6.2-12.0 [facility] Comment on above: Order Comment: CRITI MONICA VALUE CALLED TO PATRICK MORENO11/03/24719 Елена Lewis.RESULTS READ BACK BY SAME. Performed By: #### L 100.0100 ####[facility] [address] [place], [address] Platelets (Bld) [#/Vol] 371 10*3/uL Normal 150-450 [facility] Comment on above: Order Comment: CRITI MONICA VALUE CALLED TO PATRICK MORENO11/03/24719 Елена Lewis.RESULTS READ BACK BY SAME. Performed By: #### L 100.0100 ####[facility] [address] [place], [address] RBC (Bld) [#/Vol] 6.42 10*6/uL High 4.2-5.4 [facility] Comment on above: Order Comment: CRITI MONICA VALUE CALLED TO PATRICK HOOVERTLER11/03/24 0720 Елена Lewis.RESULTS READ BACK BY SAME. Performed By: #### L 100.0100 ####[facility] [address] [place], [address] RDW SD 43.6 fl Normal 35.1-43.9 [facility] Comment on above: Order Comment: CRITI MONICA VALUE CALLED TO PATRICK HOOVERTLER11/03/24 0720 Еленаmalcolm Lewis.RESULTS READ BACK BY SAME. Performed By: #### L 100.0100 ####[facility] [address] [place], [address] WBC (Bld) [#/Vol] 17.6 10*3/uL High 4.4-11.0 [facility] Comment on above: Order Comment: CRITI MONICA VALUE CALLED TO PATRICK HOOVERTLER11/03/24 0720 Елена Lewis.RESULTS READ BACK BY SAME. Performed By: #### L 100.0100 ####[facility] [address] [place], [address] Carbon dioxide, total [Moles /volume] in Central venous bloodOrdered By: Luis Ravi on 11-03-2024 CO2 [Moles/Vol] 19.6 mmol/L Low 21.0-32.0 [facility] Chloride assayOrdered By: Aurelio Ravi on 11-03-2024 Chloride [Moles/Vol] 99 mmol/L 98-108 [facility] Glomerular filtration rate ( GFR) estimation/1.73 sq m using serum, plasma, or whole bOrdered By: Luis Ravi on 11-03-2024 GFR/1.73 sq M.predicted among non-blacks MDRD (S/P/Bld) [Vol rate/Area] 112 mL/min/{1.73_m2} >60 [facility] Comment on above: mL/min/1.73m2 CKD-EP I Creatinine Equation (2020) Hyaline casts LM.LPF (Urine sed) [#/Area]Ordered By: Netta Domingo on 11-03-2024 Hyaline casts (Urine sed) [#/Area] 0 /[LPF] 0-5 [facility] Ketones Test strip Ql (U)Ord ered By: Netta Domingo on 11-03-2024 Ketones Ql (U) Negative Negative [facility] Microscopic analysis of urin e for red blood cells (RBC)Ordered By: Netta Domingo on 11-03-2024 Microscopic analysis of urine for red blood cells (RBC) 0 SEEN /hpf 0-5 [facility] Mucus LM Ql (Urine sed)Order ed By: Netta Domingo on 11-03-2024 Mucus Ql (Urine sed) 0 SEEN /hpf [facility] Nitrite Test strip Ql (U)Ord ered By: Netta Domingo on 11-03-2024 Nitrite Ql (U) Negative Negative [facility] Potassium measurement (mass/ volume)Ordered By: Luis Ravi on 11-03-2024 Potassium (Unsp spec) [Mass/Vol] 4.0 mmol/L 3.3-5.1 [facility] Comment on above: Hemolysis present, R esults could be affected. Protein Test strip Ql (U)Ord ered By: Netta Domingo on 11-03-2024 Protein Ql (U) 30 mg/dl High Negative [facility] Serum creatinine measurement (mass/volume)Ordered By: Luis Ravi on 11-03-2024 Creatinine [Mass/Vol] 0.69 mg/dL Low 0.70-1.20 [facility] Serum glucose measurement (m ass/volume)Ordered By: Luis Ravi on 11-03-2024 Glucose [Mass/Vol] 122 mg/dL High 70-99 [facility] Serum or plasma calcium sasha urement (mass/volume)Ordered By: Luis Ravi on 11-03-2024 Calcium [Mass/Vol] 10.2 mg/dL 7.6-11.0 [facility] Serum or plasma urea nitroge n measurement (mass/volume)Ordered By: Luis Ravi on 11-03-2024 Urea nitrogen [Mass/Vol] 21 mg/dL High 4-19 [facility] Sodium levelOrdered By: Luis Ravi on 11-03-2024 Sodium [Moles/Vol] 138 mmol/L 133-145 [facility] Squamous epithelial cells de tection in urine sediment by light microscopyOrdered By: Netta Domingo on 11-03-2024 Epithelial cells.squamous LM Ql (Urine sed) 0 SEEN /hpf 5-10 [facility] Urinalysis, Completeon 11-03 CAST,HYALINE 0-5 SEEN Normal 0-5 [facility] Comment on above: Order Comment: CHANDLER TER SPECIMEN Performed By: #### L 400.0001 ####[facility] [address] [place], [address] BACTERIA 0 SEEN Normal None Seen [facility] Comment on above: Order Comment: CHANDLER TER SPECIMEN Performed By: #### L 400.0001 ####[facility] [address] [place], [address] EPI,SQUAMOUS 0 SEEN Normal 5-10 [facility] Comment on above: Order Comment: CHANDLER TER SPECIMEN Performed By: #### L 400.0001 ####[facility] [address] [place], [address] Mucus Ql (Urine sed) 0 SEEN Normal [facility] Comment on above: Order Comment: CHANDLER TER SPECIMEN Performed By: #### L 400.0001 ####[facility] [address] [place], [address] RBC 0 SEEN Normal 0-5 [facility] Comment on above: Order Comment: CHANDLER TER SPECIMEN Performed By: #### L 400.0001 ####[facility] [address] [place], [address] WBC 0 SEEN Normal 0-5 [facility] Comment on above: Order Comment: CHANDLER TER SPECIMEN Performed By: #### L 400.0001 ####[facility] [address] [place], [address] Urine clarityOrdered By: Liz Domingo on 11-03-2024 Clarity (U) Clear Clear [facility] Urine color determinationOrd ered By: Netta Domingo on 11-03-2024 Color (U) Yellow Yellow [facility] Urine glucose detectionOrder ed By: Netta Chayo on 11-03-2024 Glucose Ql (U) Normal mg/dl Normal [facility] Urine leukocyte esterase det ection by dipstickOrdered By: Netta Domingo on 11-03-2024 Leukocyte esterase Test strip Ql (U) Negative Negative [facility] Urine pHOrdered By: Netta cruz on 11-03-2024 pH (U) 5.0 [pH] 5.0 - 8.0 [facility] Urine sediment bacteria coun t by microscopy (number/high power field)Ordered By: Netta Domingo on 11-03-2024 Bacteria LM.HPF (Urine sed) [#/Area] 0 /[HPF] None Seen [facility] Urine specific gravity measu rementOrdered By: Netta Domingo on 11-03-2024 Specific gravity (U) [Rel density] 1.025 1.002-1.03 0 [facility] Urine urobilinogen measureme ntOrdered By: Netta Domingo on 11-03-2024 Urobilinogen Ql (U) Normal mg/dl Normal [facility] White blood cell countOrdere d By: Netta Domingo on 11-03-2024 White blood cell count 0 SEEN /hpf 0-5 [facility] Bilirubin, totalOrdered By: Luis Ravi on 11-02-2024 Bilirubin [Mass/Vol] 0.68 mg/dL 0.00-1.30 [facility] CBC W/Diff, Automatedon Absolute Lymph 2.15 X10 3/uL Normal 0.83-4.51 [facility] Comment on above: Performed By: #### L 100.0100, L500.4050, L501.2300, L501.5200 ####[facility] [address] [place], [place], [address] Absolute Neut 12.0 X10 3/uL High 2.0-7.7 [facility] Comment on above: Performed By: #### L 100.0100, L500.4050, L501.2300, L501.5200 ####[facility] [address] [place], [address] Basophils/100 WBC (Bld) 0.4 % Normal 0-1 [facility] Comment on above: Performed By: #### L 100.0100, L500.4050, L501.2300, L501.5200 ####[facility] [address] [place], [address] Eosinophils/100 WBC (Bld) 0.3 % Normal 0-5 [facility] Comment on above: Performed By: #### L 100.0100, L500.4050, L501.2300, L501.5200 ####[facility] [address] [place], [address] Erythrocyte distribution width (RBC) [Ratio] 12.3 % Normal 11.6-14.6 [facility] Comment on above: Performed By: #### L 100.0100, L500.4050, L501.2300, L501.5200 ####[facility] [address] [place], [address] Hematocrit (Bld) [Volume fraction] 53.0 % High 37-47 [facility] Comment on above: Performed By: #### L 100.0100, L500.4050, L501.2300, L501.5200 ####[facility] [address] [place], [address] Hemoglobin (Bld) [Mass/Vol] 17.9 g/dL High 12.0-15.0 [facility] Comment on above: Performed By: #### L 100.0100, L500.4050, L501.2300, L501.5200 ####[facility] [address] [place], [address] IG% 0.300 Normal 0.0-0.9 [facility] Comment on above: Result Comment: IG% - Immature Granulocytes (promyelocytes, myelocytes andmetamyelocytes) > 1% indicates that a LEFT SHIFT is Present. Performed By: #### L 100.0100, L500.4050, L501.2300, L501.5200 ####[facility] [address] [place], [address] Lymphocytes/100 WBC (Bld) 14.2 % Low 19-41 [facility] Comment on above: Performed By: #### L 100.0100, L500.4050, L501.2300, L501.5200 ####[facility] [address] [place], [address] MCH (RBC) [Entitic mass] 30.2 pg Normal 27.0-32.0 [facility] Comment on above: Performed By: #### L 100.0100, L500.4050, L501.2300, L501.5200 ####[facility] [address] [place], [address] MCHC (RBC) [Mass/Vol] 33.8 g/dL Normal 32-36 [facility] Comment on above: Performed By: #### L 100.0100, L500.4050, L501.2300, L501.5200 ####[facility] [address] [place], [address] MCV (RBC) [Entitic vol] 89.5 fL Normal 81-99 [facility] Comment on above: Performed By: #### L 100.0100, L500.4050, L501.2300, L501.5200 ####[facility] [address] [place], [address] Monocytes/100 WBC (Bld) 5.7 % Normal 0-10 [facility] Comment on above: Performed By: #### L 100.0100, L500.4050, L501.2300, L501.5200 ####[facility] [address] [place], [address] Neutrophils/100 WBC (Bld) 79.1 % High 47-70 [facility] Comment on above: Performed By: #### L 100.0100, L500.4050, L501.2300, L501.5200 ####[facility] [address] [place], [address] Nucleated RBC (Bld) [#/Vol] 0 10*3/uL Normal 0-5 [facility] Comment on above: Performed By: #### L 100.0100, L500.4050, L501.2300, L501.5200 ####[facility] [address] [place], [address] Platelet mean volume (Bld) [Entitic vol] 10.2 fL Normal 6.2-12.0 [facility] Comment on above: Performed By: #### L 100.0100, L500.4050, L501.2300, L501.5200 ####[facility] [address] [place], [address] Platelets (Bld) [#/Vol] 345 10*3/uL Normal 150-450 [facility] Comment on above: Performed By: #### L 100.0100, L500.4050, L501.2300, L501.5200 ####[facility] [address] [place], [address] RBC (Bld) [#/Vol] 5.92 10*6/uL High 4.2-5.4 [facility] Comment on above: Performed By: #### L 100.0100, L500.4050, L501.2300, L501.5200 ####[facility] [address] [place], [address] RDW SD 40.8 fl Normal 35.1-43.9 [facility] Comment on above: Performed By: #### L 100.0100, L500.4050, L501.2300, L501.5200 ####[facility] [address] [place], [address] WBC (Bld) [#/Vol] 15.1 10*3/uL High 4.4-11.0 [facility] Comment on above: Performed By: #### L 100.0100, L500.4050, L501.2300, L501.5200 ####[facility] [address] [place], [address] Comprehensive Metabolic Prof ilon 11-02-2024 Albumin [Mass/Vol] 4.6 g/dL Normal 3.5-5.0 [facility] Comment on above: Performed By: #### L 100.0100, L500.4050, L501.2300, L501.5200 ####[facility] [address] [place], [address] Albumin/Globulin [Mass ratio] 1.4 {ratio} Normal 0.9-2.4 [facility] Comment on above: Performed By: #### L 100.0100, L500.4050, L501.2300, L501.5200 ####[facility] [address] [place], [address] ALK PHOS 103 U/L Normal 35-104 [facility] Comment on above: Performed By: #### L 100.0100, L500.4050, L501.2300, L501.5200 ####[facility] [facility] [address] [place], [address] ALT [Catalytic activity/Vol] 15 U/L Normal <=34 [facility] Comment on above: Performed By: #### L 100.0100, L500.4050, L501.2300, L501.5200 ####[facility] [address] [place], [address] AST [Catalytic activity/Vol] 19 U/L Normal <=31 [facility] Comment on above: Performed By: #### L 100.0100, L500.4050, L501.2300, L501.5200 ####[facility] [address] [place], [address] Bilirubin [Mass/Vol] 0.68 mg/dL Normal 0.00-1.30 [facility] Comment on above: Performed By: #### L 100.0100, L500.4050, L501.2300, L501.5200 ####[facility] [address] [place], [address] BUN/CRE 19.1 RATIO Normal 10-20 [facility] Comment on above: Performed By: #### L 100.0100, L500.4050, L501.2300, L501.5200 ####[facility] [address] [place], [address] Calcium [Mass/Vol] 9.8 mg/dL Normal 7.6-11.0 [facility] Comment on above: Performed By: #### L 100.0100, L500.4050, L501.2300, L501.5200 ####[facility] [address] [place], [address] Chloride [Moles/Vol] 104 mmol/L Normal 98-108 [facility] Comment on above: Performed By: #### L 100.0100, L500.4050, L501.2300, L501.5200 ####[facility] [address] [place], [address] CO2 [Moles/Vol] 20.0 mmol/L Low 21.0-32.0 [facility] Comment on above: Performed By: #### L 100.0100, L500.4050, L501.2300, L501.5200 ####[facility] [address] [place], [address] Creatinine [Mass/Vol] 0.56 mg/dL Low 0.70-1.20 [facility] Comment on above: Performed By: #### L 100.0100, L500.4050, L501.2300, L501.5200 ####[facility] [address] [place], [address] ECRCL 130.27 ml/min Normal 50-250 [facility] Comment on above: Performed By: #### L 100.0100, L500.4050, L501.2300, L501.5200 ####[facility] [address] [place], [address] GAP 14 Normal 5-15 [facility] Comment on above: Performed By: #### L 100.0100, L500.4050, L501.2300, L501.5200 ####[facility] [address] [place], [address] GFR/1.73 sq M.predicted among non-blacks MDRD (S/P/Bld) [Vol rate/Area] 118 mL/min/{1.73_m2} Normal >60 [facility] Comment on above: Result Comment: mL/m in/1.73m2 CKD-EPI Creatinine Equation (2020) Performed By: #### L 100.0100, L500.4050, L501.2300, L501.5200 ####[facility] [address] [place], [address] Globulin (S) [Mass/Vol] 3.2 g/dL Normal 2.2-4.2 [facility] Comment on above: Performed By: #### L 100.0100, L500.4050, L501.2300, L501.5200 ####[facility] [address] [place], [address] Glucose [Mass/Vol] 152 mg/dL High 70-99 [facility] Comment on above: Performed By: #### L 100.0100, L500.4050, L501.2300, L501.5200 ####[facility] [address] [place], [address] Potassium [Moles/Vol] 3.7 mmol/L Normal 3.3-5.1 [facility] Comment on above: Performed By: #### L 100.0100, L500.4050, L501.2300, L501.5200 ####[facility] [address] [place], [address] Sodium [Moles/Vol] 138 mmol/L Normal 133-145 [facility] Comment on above: Performed By: #### L 100.0100, L500.4050, L501.2300, L501.5200 ####[facility] [address] [place], [address] T PROT 7.7 g/dL Normal 5.9-8.4 [facility] Comment on above: Performed By: #### L 100.0100, L500.4050, L501.2300, L501.5200 ####[facility] [address] [place], [address] Urea nitrogen [Mass/Vol] 11 mg/dL Normal 4-19 [facility] Comment on above: Performed By: #### L 100.0100, L500.4050, L501.2300, L501.5200 ####[facility] [address] [place], [address] Laboratory - Chemistry and C hemistry - challengeOrdered By: Luis Ravi on 11-02-2024 AST [Catalytic activity/Vol] 19 U/L <32 [facility] Magnesiumon 11-02-2024 Magnesium [Mass/Vol] 2.4 mg/dL High 1.5-2.2 [facility] Comment on above: Performed By: #### L 100.0100, L500.4050, L501.2300, L501.5200 ####[facility] [address] [place], [place], [address] Magnesium measurement (mass/ volume)Ordered By: Luis Ravi on 11-02-2024 Magnesium (Unsp spec) [Mass/Vol] 2.4 mg/dL High 1.5-2.2 [facility] No Panel InformationOrdered By: Luis Ravi on 11-02-2024 19 U/L <32 [facility] Phosphoruson 11-02-2024 Phosphate [Mass/Vol] 3.6 mg/dL Normal 2.7-4.5 [facility] Comment on above: Performed By: #### L 100.0100, L500.4050, L501.2300, L501.5200 ####[facility] [address] [place], [place], [address] Serum globulin measurementOr dered By: Luis Ravi on 11-02-2024 Globulin (S) [Mass/Vol] 3.2 g/dL 2.2-4.2 [facility] Serum or plasma alanine quintana otransferase (ALT) measurementOrdered By: Luis Ravi on 11-02-2024 ALT [Catalytic activity/Vol] 15 U/L <35 [facility] Serum or plasma albumin sasha urement (mass/volume)Ordered By: Luis Ravi on 11-02-2024 Albumin [Mass/Vol] 4.6 g/dL 3.5-5.0 [facility] Serum or plasma albumin/glob ulin mass ratioOrdered By: Luis Ravi on 11-02-2024 Albumin/Globulin [Mass ratio] 1.4 {ratio} 0.9-2.4 [facility] Serum or plasma alkaline malvin sphatase measurementOrdered By: Luis Ravi 11-02-2024 ALP [Catalytic activity/Vol] 103 U/L 35-104 [facility] Total proteinOrdered By: Luis Ravi on 11-02-2024 Protein [Mass/Vol] 7.7 g/dL 5.9-8.4 [facility] Absolute lymphocyte countOrd ered By: Sen Clarke on 11-01-2024 Lymphocytes Auto (Unsp spec) [#/Vol] 2.74 10*3/uL 0.83-4.51 [facility] Absolute neutrophil countOrd ered By: Sen Clarke on 11-01-2024 Neutrophils (Bld) [#/Vol] 8.9 10*3/uL High 2.0-7.7 [facility] Anion gap in Serum or Plasma Ordered By: Vee Stuart on 11-01-2024 Anion gap [Moles/Vol] 14 mmol/L 08-15 [facility] Automated lymphocyte count a s percentage of total leukocytesOrdered By: Sen Clarke on 11-01-2024 Lymphocytes/100 WBC Auto (Unsp spec) 21.5 % [facility] BUN/creatinine ratioOrdered By: Vee Stuart on 11-01-2024 Urea nitrogen/Creatinine [Mass ratio] 13.4 mg/mg 01-20 [facility] Basic Metabolic Profile (BMP )on 11-01-2024 BUN/CRE 13.4 RATIO Normal 01-20 [facility] Comment on above: Order Comment: REDRA W. PREVIOUS SPECIMEN REJECTED DUE TOHEMOLYSIS. 11/01/24738 Tong Mccormick. Performed By: #### L 500.2500 ####[facility] [address] [place], [address] Calcium [Mass/Vol] 9.2 mg/dL Normal 7.6-11.0 [facility] Comment on above: Order Comment: REDRA W. PREVIOUS SPECIMEN REJECTED DUE TOHEMOLYSIS. 11/01/2439 Tong Mccormick. Performed By: #### L 500.2500 ####[facility] [address] [place], [address] Chloride [Moles/Vol] 106 mmol/L Normal 98-108 [facility] Comment on above: Order Comment: REDRA W. PREVIOUS SPECIMEN REJECTED DUE TOHEMOLYSIS. 11/01/2439 Tong Castañeda White. Performed By: #### L 500.2500 ####[facility] [address] [place], [address] CO2 [Moles/Vol] 20.1 mmol/L Low 21.0-32.0 [facility] Comment on above: Order Comment: REDRA W. PREVIOUS SPECIMEN REJECTED DUE TOHEMOLYSIS. 11/01/24738 Tong Mccormick. Performed By: #### L 500.2500 ####[facility] [address] [place], [place], [address] Creatinine [Mass/Vol] 0.59 mg/dL Low 0.70-1.20 [facility] Comment on above: Order Comment: REDRA W. PREVIOUS SPECIMEN REJECTED DUE TOHEMOLYSIS. 11/01/24738 Tong Mccormick. Performed By: #### L 500.2500 ####[facility] [address] [place], [address] ECRCL 127.93 ml/min Normal 50-250 [facility] Comment on above: Order Comment: REDRA W. PREVIOUS SPECIMEN REJECTED DUE TOHEMOLYSIS. 11/01/24738 Tong Mccormick. Performed By: #### L 500.2500 ####[facility] [address] [place], [address] GAP 14 Normal 5-15 [facility] Comment on above: Order Comment: REDRA W. PREVIOUS SPECIMEN REJECTED DUE TOHEMOLYSIS. 11/01/24738 Tong Castañeda Jace. Performed By: #### L 500.2500 ####[facility] [address] [place], [address] GFR/1.73 sq M.predicted among non-blacks MDRD (S/P/Bld) [Vol rate/Area] 116 mL/min/{1.73_m2} Normal >60 [facility] Comment on above: Order Comment: REDRA W. PREVIOUS SPECIMEN REJECTED DUE TOHEMOLYSIS. 11/01/24738 Tong Castañeda Jace. Result Comment: mL/m in/1.73m2 CKD-EPI Creatinine Equation (2020) Performed By: #### L 500.2500 ####[facility] [address] [place], [address] Glucose [Mass/Vol] 140 mg/dL High 70-99 [facility] Comment on above: Order Comment: REDRA W. PREVIOUS SPECIMEN REJECTED DUE TOHEMOLYSIS. 11/01/24738 Tong Mccormick. Performed By: #### L 500.2500 ####[facility] [address] [place], [address] Potassium [Moles/Vol] 3.6 mmol/L Normal 3.3-5.1 [facility] Comment on above: Order Comment: REDRA W. PREVIOUS SPECIMEN REJECTED DUE TOHEMOLYSIS. 11/01/24738 Tong Mccormick. Performed By: #### L 500.2500 ####[facility] [address] [place], [address] Sodium [Moles/Vol] 140 mmol/L Normal 133-145 [facility] Comment on above: Order Comment: REDRA W. PREVIOUS SPECIMEN REJECTED DUE TOHEMOLYSIS. 11/01/24738 Tong Mccormick. Performed By: #### L 500.2500 ####[facility] [address] [place], [address] Urea nitrogen [Mass/Vol] 8 mg/dL Normal -19 [facility] Comment on above: Order Comment: REDRA W. PREVIOUS SPECIMEN REJECTED DUE TOHEMOLYSIS. 11/01/24738 Tong Mccormick. Performed By: #### L 500.2500 ####[facility] [address] [place], [address] BUN Normal -19 [facility] Comment on above: Result Comment: This specimen has been REJECTED due to Laboratory criteria:Hemolyzed.NESS BURNETT has been notified of need of recollection.11/01/24736 Tong Mccormick Performed By: #### L 100.0100, L500.2500 ####[facility] [address] [place], [address] BUN/CRE Normal 10-20 [facility] Comment on above: Result Comment: This specimen has been REJECTED due to Laboratory criteria:Hemolyzed.NESS BURNETT has been notified of need of recollection.11/01/24736 Tong L White Performed By: #### L 100.0100, L500.2500 ####[facility] [address] [place], [address] Calcium Normal 7.6-11.0 [facility] Comment on above: Result Comment: This specimen has been REJECTED due to Laboratory criteria:Hemolyzed.NESS BURENTT has been notified of need of recollection.11/01/24736 Tong L White Performed By: #### L 100.0100, L500.2500 ####[facility] [address] [place], [address] CL Normal 98-108 [facility] Comment on above: Result Comment: This specimen has been REJECTED due to Laboratory criteria:Hemolyzed.NESS BURNETT has been notified of need of recollection.11/01/24736 Tong L White Performed By: #### L 100.0100, L500.2500 ####[facility] [address] [place], [address] CO2 Normal 21.0-32.0 [facility] Comment on above: Result Comment: This specimen has been REJECTED due to Laboratory criteria:Hemolyzed.NESS BURNETT has been notified of need of recollection.11/01/24736 Tong L White Performed By: #### L 100.0100, L500.2500 ####[facility] [address] [place], [address] CREAT,SERUM Normal 0.70-1.20 [facility] Comment on above: Result Comment: This specimen has been REJECTED due to Laboratory criteria:Hemolyzed.NESS BURNETT has been notified of need of recollection.11/01/24736 Tong L White Performed By: #### L 100.0100, L500.2500 ####[facility] [address] [place], [address] eGFR Normal >60 [facility] Comment on above: Result Comment: This specimen has been REJECTED due to Laboratory criteria:Hemolyzed.NESS BURNETT has been notified of need of recollection.11/01/2437 Tong L White Performed By: #### L 100.0100, L500.2500 ####[facility] [address] [place], [address] GAP Normal 5-15 [facility] Comment on above: Result Comment: This specimen has been REJECTED due to Laboratory criteria:Hemolyzed.NESS BURNETT has been notified of need of recollection.11/01/24736 Tong L White Performed By: #### L 100.0100, L500.2500 ####[facility] [address] [place], [address] GLU Normal 70-99 [facility] Comment on above: Result Comment: This specimen has been REJECTED due to Laboratory criteria:Hemolyzed.NESS BURNETT has been notified of need of recollection.11/01/24736 Tong L White Performed By: #### L 100.0100, L500.2500 ####[facility] [address] [place], [address] Potassium Normal 3.3-5.1 [facility] Comment on above: Result Comment: This specimen has been REJECTED due to Laboratory criteria:Hemolyzed.NESS BURNETT has been notified of need of recollection.11/01/24736 Tong L White Performed By: #### L 100.0100, L500.2500 ####[facility] [address] [place], [address] Basic Metabolic Profile (BMP) Normal 133-145 [facility] Comment on above: Result Comment: This specimen has been REJECTED due to Laboratory criteria:Hemolyzed.NESS WATKINSONS has been notified of need of recollection.11/01/2437 Tong L White Performed By: #### L 100.0100, L500.2500 ####[facility] [address] [place], [address] Basophil percentageOrdered B y: Sen Clarke on 11-01-2024 Basophils/100 WBC (Bld) 0.3 % 0-1 [facility] CBC W/Diff, Automatedon Absolute Lymph 2.74 X10 3/uL Normal 0.83-4.51 [facility] Comment on above: Performed By: #### L 100.0100, L500.2500 ####[facility] [address] [place], [address] Absolute Neut 8.9 X10 3/uL High 2.0-7.7 [facility] Comment on above: Performed By: #### L 100.0100, L500.2500 ####[facility] [address] [place], [address] Basophils/100 WBC (Bld) 0.3 % Normal 0-1 [facility] Comment on above: Performed By: #### L 100.0100, L500.2500 ####[facility] [address] [place], [address] Eosinophils/100 WBC (Bld) 0.8 % Normal 0-5 [facility] Comment on above: Performed By: #### L 100.0100, L500.2500 ####[facility] [address] [place], [address] Erythrocyte distribution width (RBC) [Ratio] 12.0 % Normal 11.6-14.6 [facility] Comment on above: Performed By: #### L 100.0100, L500.2500 ####[facility] [address] [place], [address] Hematocrit (Bld) [Volume fraction] 47.1 % High 37-47 [facility] Comment on above: Performed By: #### L 100.0100, L500.2500 ####[facility] [address] [place], [address] Hemoglobin (Bld) [Mass/Vol] 16.2 g/dL High 12.0-15.0 [facility] Comment on above: Performed By: #### L 100.0100, L500.2500 ####[facility] [address] [place], [address] IG% 0.400 Normal 0.0-0.9 [facility] Comment on above: Result Comment: IG% - Immature Granulocytes (promyelocytes, myelocytes andmetamyelocytes) > 1% indicates that a LEFT SHIFT is Present. Performed By: #### L 100.0100, L500.2500 ####[facility] [address] [place], [address] Lymphocytes/100 WBC (Bld) 21.5 % Normal 19-41 [facility] Comment on above: Performed By: #### L 100.0100, L500.2500 ####[facility] [address] [place], [address] MCH (RBC) [Entitic mass] 30.5 pg Normal 27.0-32.0 [facility] Comment on above: Performed By: #### L 100.0100, L500.2500 ####[facility] [address] [place], [address] MCHC (RBC) [Mass/Vol] 34.4 g/dL Normal 32-36 [facility] Comment on above: Performed By: #### L 100.0100, L500.2500 ####[facility] [address] [place], [address] MCV (RBC) [Entitic vol] 88.7 fL Normal 81-99 [facility] Comment on above: Performed By: #### L 100.0100, L500.2500 ####[facility] [address] [place], [address] Monocytes/100 WBC (Bld) 7.5 % Normal 0-10 [facility] Comment on above: Performed By: #### L 100.0100, L500.2500 ####[facility] [address] [place], [address] Neutrophils/100 WBC (Bld) 69.5 % Normal 47-70 [facility] Comment on above: Performed By: #### L 100.0100, L500.2500 ####[facility] [address] [place], [address] Nucleated RBC (Bld) [#/Vol] 0 10*3/uL Normal 0-5 [facility] Comment on above: Performed By: #### L 100.0100, L500.2500 ####[facility] [address] [place], [address] Platelet mean volume (Bld) [Entitic vol] 10.4 fL Normal 6.2-12.0 [facility] Comment on above: Performed By: #### L 100.0100, L500.2500 ####[facility] [address] [place], [address] Platelets (Bld) [#/Vol] 290 10*3/uL Normal 150-450 [facility] Comment on above: Performed By: #### L 100.0100, L500.2500 ####[facility] [address] [place], [address] RBC (Bld) [#/Vol] 5.31 10*6/uL Normal 4.2-5.4 [facility] Comment on above: Performed By: #### L 100.0100, L500.2500 ####[facility] [address] [place], [address] RDW SD 39.5 fl Normal 35.1-43.9 [facility] Comment on above: Performed By: #### L 100.0100, L500.2500 ####[facility] [address] [place], [address] WBC (Bld) [#/Vol] 12.7 10*3/uL High 4.4-11.0 [facility] Comment on above: Performed By: #### L 100.0100, L500.2500 ####[facility] [address] [place], [address] Carbon dioxide, total [Moles /volume] in Central venous bloodOrdered By: Vee Stuart on 11-01-2024 CO2 [Moles/Vol] 20.1 mmol/L Low 21.0-32.0 [facility] Chloride assayOrdered By: Stan Stuatr on 11-01-2024 Chloride [Moles/Vol] 106 mmol/L 98-108 [facility] Discharge Instructionon 08-0 Discharge Instruction Normal [facility] Eosinophil percentageOrdered By: Sen Clarke on [...] 11-01-2024 MCHC (RBC) [Mass/Vol] 34.4 g/dL 32-36 [facility] Mean platelet volume determi nationOrdered By: [...] 11-01-2024 RBC (Bld) [#/Vol] 5.31 10*6/uL 4.2-5.4 [facility] Serum creatinine measurement (mass/volume)Ordered By: Vee Stuart on 11-01-2024 Creatinine [Mass/Vol] 0.59 mg/dL Low 0.70-1.20 [facility] Serum glucose measurement (m ass/volume)Ordered By: Vee Stuart on 11-01-2024 Glucose [Mass/Vol] 140 mg/dL High 70-99 [facility] Serum or plasma calcium sasha urement (mass/volume)Ordered By: Vee Stuart on 11-01-2024 Calcium [Mass/Vol] 9.2 mg/dL 7.6-11.0 [facility] Serum or plasma urea nitroge n measurement (mass/volume)Ordered By: Vee Stuart on 11-01-2024 Urea nitrogen [Mass/Vol] 8 mg/dL 4-19 [facility] Sodium levelOrdered By: Aron Stuart on 11-01-2024 Sodium [Moles/Vol] 140 mmol/L 133-145 [facility] White blood cell (WBC) count Ordered By: Sen Clarke on 11-01-2024 WBC (Bld) [#/Vol] 12.7 10*3/uL High 4.4-11.0 [facility] Brain without Contraston Brain without Contrast Normal [facility] Calculated very low density lipoprotein (VLDL) cholesterol measurementOrdered By: Nehemiah Medrano on 10-31-2024 Calculated very low density lipoprotein (VLDL) cholesterol measurement 40 mg/dL 5-40 [facility] Echo Transesophageal (SUNDAY)on 10-31-2024 Echo Transesophageal (SUNDAY) Normal [facility] Echocardiogram study reportO rdered By: Law Eduardo on 10-31-2024 Study report [facility] [place] [address] Echo Complete 10/31/24 1012 MR#: [id number] Acct: [id number] Name: ELIN OSHEA Rep #:[id number] : 1985 39 From: Law Roque Attending Dr: Dr. Sen Clarke MD Status: ADM IN Ordering Dr: Nehemiah Haney DO Date: 10/30/24 Location: [facility] Sex: F C Admitted: 10/30/24 Reason For [...] Date Dictated: 10/31/24 1012 Date Transcribed: 10/31/241658 Staff Radiologist: Signed [facility] Work Phone: Electrocardiogram reportOrde red By: Law Eduardo on 10-31-2024 EKG study [facility] Services [address] [place] [address] 12 Lead EKG 10/30/242056 MR#: [id number] Acct: [id number] Name: ELIN OSHEA Rep #:[id number] : 1985 39 From: Law Eduardo MD Attending Dr: Dr. Sen Clarke MD Status: ADM IN Ordering Dr: Domenico Silva DO Date: 0 10/30/24 Location: [facility] Sex: F C Admitted: 10/30/24 Test Reason : STROKE Blood Pressure : */* mmHG Vent. Rate : 73 BPM Atrial Rate : 73 BPM P-R Int : 152 ms QRS Dur : 94 ms QT Int : 428 ms P-R-T Axes : 33 26 51 degrees QTcB Int : 471 ms Normal sinus rhythm Normal ECG Confirmed by JAYCE SCHWAB, LAW ([id number]), editor farm journal VELIA VILLA ([id number]) on 58:43:28 AM Referred By: Confirmed By: [...] affected, Requires Recollection. Performed By: #### L 506.0200, L501.9520, L505.5000, L501.9985 ####[facility] [address] [place], [address] Hemoglobin A1con 10-31-2024 HbA1c (Bld) [Mass fraction] 5.4 % Normal <=5.6 [facility] Comment on above: Result Comment: Norm al < 5.7 % Prediabetic 5.7 - 6.4 % Diabetic >or= 6.5 % Please note range changes. Performed By: #### L 506.0200, L501.9520, L505.5000, L501.9985 ####[facility] [address] [place], [address] LDL calc ser/plasOrdered By: Nehemiah Medrano on 10-31-2024 Cholesterol in LDL [Mass/Vol] 108 mg/dL [facility] Comment on above: Nvbwbwyihv=844-314 m g/dL & Higher Wycs=425 mg/dL or greaterFriedwald Equation for LDL-C Lipid Profileon 10-31-2024 CHOL:HDL 3.43 Normal [facility] Comment on above: Performed By: #### L 500.4100 ####[facility] [address] [place], [address] Cholesterol [Mass/Vol] 209 mg/dL High <=200 [facility] Comment on above: Result Comment: Chol esterol level, Desirable <200 mg/dLBorderline high cholesterol 200-239 mg/dLHigh cholesterol >=240 mg/dLRecommendations of the NCEP Adult Treatment Panel for thefollowing risk-cutoff thresholds for the [place] Americanpopulation. Performed By: #### L 500.4100 ####[facility] [address] [place], [address] Cholesterol in HDL [Mass/Vol] 61 mg/dL Normal [facility] Comment on above: Result Comment: [place] onal Cholesterol Education Program (NCEP) guidelines:<40 mg/dL: Low HDL-cholesterol (major risk factor for CHD)>= 60 mg/dL: High HDL-cholesterol (negative risk factor forCHD)HDL-cholesterol is affected by a number of factors, e.g.smoking, exercise, hormones, sex and age. Performed By: #### L 500.4100 ####[facility] [address] [place], [address] Cholesterol in LDL [Mass/Vol] 108 mg/dL Normal [facility] Comment on above: Result Comment: Bord pvwiyz=205-040 mg/dL Higher Wlhc=919 mg/dL or greaterFriedwald Equation for LDL-C Performed By: #### L 500.4100 ####[facility] [address] [place], [address] Cholesterol in VLDL [Mass/Vol] 40 mg/dL Normal 5-40 [facility] Comment on above: Performed By: #### L 500.4100 ####[facility] [address] [place], [address] Triglyceride [Mass/Vol] 201 mg/dL High [facility] Comment on above: Result Comment: The drugs N-Acetylcysteine and Metamizole may falselydepress this assay.Normal range: <150 mg/dLBorderline High: 150-199 mg/dLHigh: 200-499 mg/dLVery High: >500 mg/dL Performed By: #### L 500.4100 ####[facility] [address] [place], [address] MR/CON.PCM.NEon 10-31-2024 MR/CON.PCM.NE Normal [facility] Magnetic resonance imaging r eportOrdered By: Richi Andre on 10-31-2024 Study report [facility] Services [address] [place] [address] Brain without Contrast MR#: [id number] Acct: [id number] Name: ELIN OSHEA Rep #: [id number] : 1985 F 39 From: Yoko Andre MD PCP: Care Physician,No Primary Status: ADM IN Study:Brain without Contrast Date of Exam: 10/31/24 Exam# [id number] Ordering Dr: Nehemiah Lorenz DO EXAM: BRAIN [...] Haney DO; No Primary Care Physician ~ Staff Radiologist: Signed [facility] No Panel InformationOrdered By: Nehemiah Medrano on 10-31-2024 JAK2 Mutation Comment . [facility] Comment on above: Technical Component performed at [facility] RTPProfessional Component performed by:Lisbet Price, PhD, FACMGDirector, Molecular OncologyMassachusetts Eye & Ear Infirmary [id number], [address]obarSaint [facility] [phone] test was developed and its performance characteristicsdetermined by [facility]. It has not been cleared orapproved by the Food and Drug Administration.Performed at: [facility] [id number] [facility], [place], [place] [id number] Director: Neil Campos [facility], Phone: [phone] at: [facility] [id number] WingNEW [facility] [id number] Director: Neil Campos [facility], Phone: [phone] JAK2 V617F Reviewed By Comment . [facility] Comment on above: JAK2 is a cytoplasmi c tyrosine kinase with a connell role insignal transduction from multiple hematopoietic growthfactor receptors. 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 The Wis.dm Absolute Quantitation softwarewill compare the patient specimen valuse to the standardcurves and generate percent values for wild type andmutant type. In vitro studies have indicated that thisassay has an analytical sensitivity of 1%.References:Solo GRAHAM, Roger BAIG, Macho PJ, et al. Acquiredmutation of the tyrosine kinase JAK2 in humanmyeloproliferative disorders. Lancet. 2005 Jun 19-;365(9464):4155-6555. Tong Bolden, Geraldo V, Pito Curry SHIMA. Aunique clonal JAK2 mutation leading to constitutivesignaling causes polycythaemia vera. Nature. 2005 Jul 29;947(6202):0058-9451.Maryann R, Aly F, Joseph , et al. A relp-rk-xhvuxzzm mutation of JAK2 in myeloproliferative disorders.N Engl J Med. 2005 Jul 29; 35217):5374-2310. Comment . [facility] Screening total cholesterol/ high density lipoprotein [...] 10-31-2024 Cholesterol [Mass/Vol] 209 mg/dL High <201 [facility] Comment on above: Cholesterol level, D esirable <200 mg/dLBorderline high cholesterol 200-239 mg/dLHigh cholesterol >=240 mg/dLRecommendations of the NCEP Adult Treatment Panel for the following risk-cutoff thresholds for the [place] population. Thyroid Stim Hormone (TSH)on 10-31-2024 TSH 3.230 uIU/mL Normal 0.300-4.20 0 [facility] Comment on above: Performed By: #### L 506.0200, L501.9520, L505.5000, L501.9985 ####[facility] [address] [place], [address] Triglycerides measurementOrd ered By: Nehemiah Medrano on [...] By: #### L 499.0043 ####[facility] [address] [place], [address] Urine Drug Screen (VISTA)on 10-31-2024 AMPHETAMINES Positive Normal <1000 ng/mL [facility] Comment on above: Result Comment: If c onfirmation testing is needed, a separate order will berequired to send out testing to the reference laboratory. Performed By: #### L 506.0200, L501.9520, L505.5000, L501.9985 ####[facility] [address] [place], [address] BARBITIURATES Negative Normal < 200 ng/mL [facility] Comment on above: Performed By: #### L 506.0200, L501.9520, L505.5000, L501.9985 ####[facility] [address] [place], [address] BENZODIAZIPINE Negative Normal < 200 ng/mL [facility] Comment on above: Performed By: #### L 506.0200, L501.9520, L505.5000, L501.9985 ####[facility] [address] [place], [address] BUP Ur Drug Scr Negative Normal < 200 ng/mL [facility] Comment on above: Performed By: #### L 506.0200, L501.9520, L505.5000, L501.9985 ####[facility] [address] [place], [address] COCAINE Negative Normal < 300 ng/mL [facility] Comment on above: Performed By: #### L 506.0200, L501.9520, L505.5000, L501.9985 ####[facility] [address] [place], [address] Fentanyl Negative Normal [facility] Comment on above: Performed By: #### L 506.0200, L501.9520, L505.5000, L501.9985 ####[facility] [address] [place], [address] METHADONE Negative Normal < 300 ng/mL [facility] Comment on above: Performed By: #### L 506.0200, L501.9520, L505.5000, L501.9985 ####[facility] [address] [place], [address] OPIATES Negative Normal < 300 ng/mL [facility] Comment on above: Performed By: #### L 506.0200, L501.9520, L505.5000, L501.9985 ####[facility] [address] [place], [address] OXYCODONE Negative Normal < 100 ng/mL [facility] Comment on above: Performed By: #### L 506.0200, L501.9520, L505.5000, L501.9985 ####[facility] [address] [place], [address] PCP Negative Normal < 25 ng/mL [facility] Comment on above: Performed By: #### L 506.0200, L501.9520, L505.5000, L501.9985 ####[facility] [address] [place], [address] THC Positive Normal < 50 ng/mL [facility] Comment on above: Result Comment: If c onfirmation testing is needed, a separate order will berequired to send out testing to the reference laboratory. Performed By: #### L 506.0200, L501.9520, L505.5000, L501.9985 ####[facility] [address] [place], [address] Vitamin B12on 10-31-2024 Cobalamin (Vitamin B12) [Mass/Vol] 484 pg/mL Normal 180-914 [facility] Comment on above: Performed By: #### L 503.0106 ####[facility] [address] [place], [address] Vitamin B12 ser/plasOrdered By: Nehemiah Medrano on [...] aPTT Coag (PPP) [Time] 25.8 s 24.1-36.2 [facility] Amphetamine detection with 1 000 ng/mL [...] Anion gap [Moles/Vol] 16 mmol/L High 5-15 [facility] Automated lymphocyte count a s percentage [...] on above: Performed By: #### L 100.0100, L300.3900, L300.4310, L500.2500, L501.4021 ####[facility] [address] [place], [address] Calcium [Mass/Vol] 10.5 mg/dL Normal 7.6-11.0 [facility] Comment on above: Performed By: #### L 100.0100, L300.3900, L300.4310, L500.2500, L501.4021 ####[facility] [address] [place], [address] Chloride [Moles/Vol] 100 mmol/L Normal 98-108 [facility] Comment on above: Performed By: #### L 100.0100, L300.3900, L300.4310, L500.2500, L501.4021 ####[facility] [address] [place], [address] CO2 [Moles/Vol] 24.6 mmol/L Normal 21.0-32.0 [facility] Comment on above: Performed By: #### L 100.0100, L300.3900, L300.4310, L500.2500, L501.4021 ####[facility] [address] [place], [address] Creatinine [Mass/Vol] 0.80 mg/dL Normal 0.70-1.20 [facility] Comment on above: Performed By: #### L 100.0100, L300.3900, L300.4310, L500.2500, L501.4021 ####[facility] [address] [place], [address] ECRCL 93.24 ml/min Normal 50-250 [facility] Comment on above: Performed By: #### L 100.0100, L300.3900, L300.4310, L500.2500, L501.4021 ####[facility] [address] [place], [address] GAP 16 High 5-15 [facility] Comment on above: Performed By: #### L 100.0100, L300.3900, L300.4310, L500.2500, L501.4021 ####[facility] [address] [place], [address] GFR/1.73 sq M.predicted among non-blacks MDRD (S/P/Bld) [Vol rate/Area] 95 mL/min/{1.73_m2} Normal >60 [facility] Comment on above: Result Comment: mL/m in/1.73m2 CKD-EPI Creatinine Equation (2020) Performed By: #### L 100.0100, L300.3900, L300.4310, L500.2500, L501.4021 ####[facility] [address] [place], [address] Glucose [Mass/Vol] 92 mg/dL Normal 70-99 [facility] Comment on above: Performed By: #### L 100.0100, L300.3900, L300.4310, L500.2500, L501.4021 ####[facility] [address] [place], [address] Potassium [Moles/Vol] 3.4 mmol/L Normal 3.3-5.1 [facility] Comment on above: Performed By: #### L 100.0100, L300.3900, L300.4310, L500.2500, L501.4021 ####[facility] [address] [place], [address] Sodium [Moles/Vol] 141 mmol/L Normal 133-145 [facility] Comment on above: Performed By: #### L 100.0100, L300.3900, L300.4310, L500.2500, L501.4021 ####[facility] [address] [place], [address] Urea nitrogen [Mass/Vol] 13 mg/dL Normal 4-19 [facility] Comment on above: Performed By: #### L 100.0100, L300.3900, L300.4310, L500.2500, L501.4021 ####[facility] [address] [place], [address] Basophil percentageOrdered B y: Domenico Silva on 10-30-2024 Basophils/100 WBC (Bld) 0.5 % 0-1 [facility] CBC W/Diff, Automatedon 10-03 0-2024 Absolute Lymph 1.57 X10 3/uL Normal 0.83-4.51 [facility] Comment on above: Performed By: #### L 100.0100, L300.3900, L300.4310, L500.2500, L501.4021 ####[facility] [address] [place], [address] Absolute Neut 8.3 X10 3/uL High 2.0-7.7 [facility] Comment on above: Performed By: #### L 100.0100, L300.3900, L300.4310, L500.2500, L501.4021 ####[facility] [address] [place], [address] Basophils/100 WBC (Bld) 0.5 % Normal 0-1 [facility] Comment on above: Performed By: #### L 100.0100, L300.3900, L300.4310, L500.2500, L501.4021 ####[facility] [address] [place], [address] Eosinophils/100 WBC (Bld) 0.4 % Normal 0-5 [facility] Comment on above: Performed By: #### L 100.0100, L300.3900, L300.4310, L500.2500, L501.4021 ####[facility] [address] [place], [address] Erythrocyte distribution width (RBC) [Ratio] 12.1 % Normal 11.6-14.6 [facility] Comment on above: Performed By: #### L 100.0100, L300.3900, L300.4310, L500.2500, L501.4021 ####[facility] [address] [place], [address] Hematocrit (Bld) [Volume fraction] 54.8 % High 37-47 [facility] Comment on above: Performed By: #### L 100.0100, L300.3900, L300.4310, L500.2500, L501.4021 ####[facility] [address] [place], [address] IG% 0.600 Normal 0.0-0.9 [facility] Comment on above: Result Comment: IG% - Immature Granulocytes (promyelocytes, myelocytes andmetamyelocytes) > 1% indicates that a LEFT SHIFT is Present. Performed By: #### L 100.0100, L300.3900, L300.4310, L500.2500, L501.4021 ####[facility] [address] [place], [address] Lymphocytes/100 WBC (Bld) 15.0 % Low 19-41 [facility] Comment on above: Performed By: #### L 100.0100, L300.3900, L300.4310, L500.2500, L501.4021 ####[facility] [address] [place], [address] MCH (RBC) [Entitic mass] 30.4 pg Normal 27.0-32.0 [facility] Comment on above: Performed By: #### L 100.0100, L300.3900, L300.4310, L500.2500, L501.4021 ####[facility] [address] [place], [address] MCHC (RBC) [Mass/Vol] 33.8 g/dL Normal 32-36 [facility] Comment on above: Performed By: #### L 100.0100, L300.3900, L300.4310, L500.2500, L501.4021 ####[facility] [address] [place], [address] MCV (RBC) [Entitic vol] 90.1 fL Normal 81-99 [facility] Comment on above: Performed By: #### L 100.0100, L300.3900, L300.4310, L500.2500, L501.4021 ####[facility] [address] [place], [address] Monocytes/100 WBC (Bld) 4.2 % Normal 0-10 [facility] Comment on above: Performed By: #### L 100.0100, L300.3900, L300.4310, L500.2500, L501.4021 ####[facility] [address] [place], [address] Neutrophils/100 WBC (Bld) 79.3 % High 47-70 [facility] Comment on above: Performed By: #### L 100.0100, L300.3900, L300.4310, L500.2500, L501.4021 ####[facility] [address] [place], [address] Nucleated RBC (Bld) [#/Vol] 0 10*3/uL Normal 0-5 [facility] Comment on above: Performed By: #### L 100.0100, L300.3900, L300.4310, L500.2500, L501.4021 ####[facility] [address] [place], [address] Platelet mean volume (Bld) [Entitic vol] 10.0 fL Normal 6.2-12.0 [facility] Comment on above: Performed By: #### L 100.0100, L300.3900, L300.4310, L500.2500, L501.4021 ####[facility] [address] [place], [address] Platelets (Bld) [#/Vol] 311 10*3/uL Normal 150-450 [facility] Comment on above: Performed By: #### L 100.0100, L300.3900, L300.4310, L500.2500, L501.4021 ####[facility] [address] [place], [address] RBC (Bld) [#/Vol] 6.08 10*6/uL High 4.2-5.4 [facility] Comment on above: Performed By: #### L 100.0100, L300.3900, L300.4310, L500.2500, L501.4021 ####[facility] [address] [place], [address] RDW SD 39.9 fl Normal 35.1-43.9 [facility] Comment on above: Performed By: #### L 100.0100, L300.3900, L300.4310, L500.2500, L501.4021 ####[facility] [address] [place], [address] WBC (Bld) [#/Vol] 10.5 10*3/uL Normal 4.4-11.0 [facility] Comment on above: Performed By: #### L 100.0100, L300.3900, L300.4310, L500.2500, L501.4021 ####[facility] [address] [place], [address] Carbon dioxide, total [Moles /volume] in Central venous bloodOrdered By: Domenico Silva on 10-30-2024 CO2 [Moles/Vol] 24.6 mmol/L 21.0-32.0 [facility] Chest 1 Viewon 10-30-2024 Chest 1 View Normal [facility] Chloride assayOrdered By: Galen Silva on 10-30-2024 Chloride [Moles/Vol] 100 mmol/L 98-108 [facility] Echo Completeon 10-30-2024 Echo Complete Normal [...] on 10-30-2024 Folate [Moles/Vol] 7.69 ng/mL 4.60-34.80 [facility] Comment on above: Hemolysis, Results w [...] Hospitaliston 10-30-2024 H&P Exam - Hospitalist Normal [facility] Hematocrit Auto (Bld) [Volum e fraction]Ordered [...] on above: CRITICAL VALUE PETERSON D TO [id number] Laquita Shell.RESULTS READ BACK BY SAME. Result Comment: CRIT ICAL VALUE CALLED TO [id number] Laquita Shell.RESULTS READ BACK BY SAME. Performed By: #### L 100.0100, L300.3900, L300.4310, L500.2500, L501.4021 ####[facility] [address] [place], [address] Immature granulocytes/100 WB C Auto (Bld)Ordered By: [...] on above: Performed By: #### L 100.0100, L300.3900, L300.4310, L500.2500, L501.4021 ####[facility] [address] [place], [address] MCV (mean corpuscular volume ) determinationOrdered By: Domenico Silva on 10-30-2024 MCV (RBC) [Entitic vol] 90.1 fL 81-99 [facility] Mean corpuscular hemoglobin (MCH) determinationOrdered By: Domenico Silva on 10-30-2024 MCH (RBC) [Entitic mass] 30.4 pg 27.0-32.0 [facility] Mean corpuscular hemoglobin concentration (MCHC) determinationOrdered By: Domenico Silva on 10-30-2024 MCHC (RBC) [Mass/Vol] 33.8 g/dL 32-36 [facility] Mean platelet volume determi nationOrdered By: [...] Negative < 100 ng/mL [facility] Negative < 200 ng/mL [facility] Nucleated red blood cell per centageOrdered By: Domenico Silva on 10-30-2024 Nucleated RBC/100 WBC (Bld) [Ratio] 0 % 0-5 [facility] Partial Thromboplast Timeon 10-30-2024 aPTT Coag (Bld) [Time] 25.8 s Normal 24.1-36.2 [facility] Comment on above: Performed By: #### L 100.0100, L300.3900, L300.4310, L500.2500, L501.4021 ####[facility] [address] [place], [address] Platelet countOrdered By: Galen Silva on 10-30-2024 Platelets (Bld) [#/Vol] 311 10*3/uL 150-450 [facility] Potassium measurement (mass/ volume)Ordered By: Domenico Silva on 10-30-2024 Potassium (Unsp spec) [Mass/Vol] 3.4 mmol/L 3.3-5.1 [facility] Prothrombin Time w/INRon INR Coag (PPP) [Relative time] 0.9 {INR} Normal [facility] Comment on above: Performed By: #### L 100.0100, L300.3900, L300.4310, L500.2500, L501.4021 ####[facility] [address] [place], [address] PT Coag (PPP) [Time] 11.8 s Normal 11.7-14.9 [facility] Comment on above: Performed By: #### L 100.0100, L300.3900, L300.4310, L500.2500, L501.4021 ####[facility] [address] [place], [address] Prothrombin timeOrdered By: Domenico Silva on 10-30-2024 PT Coag (PPP) [Time] 11.8 s 11.7-14.9 [facility] Quantitative urine opiates m easurementOrdered By: Nehemiah Medrano on 10-30-2024 Opiates Ql (U) Negative < 300 ng/mL [facility] RBC Auto (Bld) [#/Vol]Ordere d By: Domenico Silva on 10-30-2024 RBC (Bld) [#/Vol] 6.08 10*6/uL High 4.2-5.4 [facility] STROKE Brain/Head without Co nton 10-30-2024 STROKE Brain/Head without Cont Normal [facility] STROKE CTA Head AND Neck W/C onon 10-30-2024 STROKE CTA Head AND Neck W/Con Normal [facility] Screening urine fentanyl silva surementOrdered By: Nehemiah Medrano on 10-30-2024 fentaNYL Screen Ql (U) Negative [facility] Serum creatinine measurement (mass/volume)Ordered By: Domenico Silva on 10-30-2024 Creatinine [Mass/Vol] 0.80 mg/dL 0.70-1.20 [facility] Serum glucose measurement (m ass/volume)Ordered By: Domenico Silva on 10-30-2024 Glucose [Mass/Vol] 92 mg/dL 70-99 [facility] Serum or plasma calcium sasha urement (mass/volume)Ordered By: Domenico Silva on 10-30-2024 Calcium [Mass/Vol] 10.5 mg/dL 7.6-11.0 [facility] Serum or plasma urea nitroge n measurement (mass/volume)Ordered By: Domenico Silva on 10-30-2024 Urea nitrogen [Mass/Vol] 13 mg/dL 4-19 [facility] Sodium levelOrdered By: Domenico Silva on 10-30-2024 Sodium [Moles/Vol] 141 mmol/L 133-145 [facility] TSH DL <= 0.005 mIU/L QnOrde red By: Nehemiah Medrano on 10-30-2024 TSH Qn 3.230 uIU/mL 0.300-4.20 0 [facility] Troponin T HS 2 HRon 025 Trop T High Sen < 6 Normal <=14 [facility] Comment on above: Performed By: #### L 499.0042 ####[facility] [address] [place], [address] Troponin T.cardiac [Mass/vol ume] in Serum or [...] < 300 ng/mL [facility] Urine tlsya-1-yicfnquslrbbdo abinol (THC) measurementOrdered By: Nehemiah Medrano on 10-30-2024 Cannabinoids Screen Ql (U) Positive < 50 ng/mL [facility] Comment on above: If confirmation test ing is needed, a separate order will be required to send out testing to the reference laboratory. Urine phencyclidine (PCP) de tectionOrdered By: Nehemiah Medrano on 10-30-2024 Phencyclidine Ql (U) Negative < 25 ng/mL [facility] White blood cell (WBC) count Ordered By: Domenico Silva on 10-30-2024 WBC (Bld) [#/Vol] 10.5 10*3/uL 4.4-11.0 [facility] Foot min 3 Viewson 5 Foot min 3 Views Normal [facility] Urgent Care Visit Reporton 0 08-19-2024 Urgent Care Visit Report Normal [facility] CNOVon 11-27-2023 CNOV Office Visit (UCTR ) ELIN OSHEA ([id number]) 1985 F Date Time Provider Department 11/27/23 11:30 AM VONNIE DICKERSON [facility] During your visit today, we recorded the following information about you: Blood pressure 190/110 Vonnie Dickerson APRN.X RAY SERVICE TECHNICIAN 11/27/2023 11:37 AM Signed Patient triaged at [facility]. Here today with sob, left arm pain, elevated bp. Bp 190/110. I will refer to ER. Patient declines squad. Patient in no visible distress at time of triage. Allergies As of Date: 11/27/2023 Noted Allergy Reaction NAPROSYN (NAPROXEN) 07/25/2014 4 - Hives SEASONAL ALLERGIES 06/30/2009 Comments: sinus reaction Date Reviewed: 05/15/2020 Reviewed by: Corinne Nichole ([facility]) - Fully Assessed Reason for Visit: [...] Status:Closed by VONNIE DICKERSON on 11/27/23 Normal [facility] Vital Signs Date Time Vital Sign Value Performing Clinician Faci lity 12-30-2024 14:59-0400 Body height 162.56 cm No Primary Care Physician [facility] 12-30-2024 14:59-0400 Body mass index (BMI) [Ratio] 32.7 kg/m2 No Primary Care Physician [facility] 12-30-2024 14:59-0400 Body temperature 98.7 [degF] No Primary Care Physician [facility] 12-30-2024 14:59-0400 Body weight 86.4 kg No Primary Care Physician [facility] 12-30-2024 14:59-0400 Diastolic blood pressure 99 mm[Hg] No Primary Care Physician [facility] 12-30-2024 14:59-0400 Heart rate 72 /min No Primary Care Physician [facility] 12-30-2024 14:59-0400 Respiratory rate 16 /min No Primary Care Physician [facility] 12-30-2024 14:59-0400 SaO2% (BldA) [Mass fraction] 97 % No Primary Care Physician [facility] 12-30-2024 14:59-0400 Systolic blood pressure 149 mm[Hg] No Primary Care Physician [facility] 12-26-2024 14:49-0400 Body temperature 98.6 [degF] No Primary Care Physician [facility] 12-26-2024 14:49-0400 Diastolic blood pressure 104 mm[Hg] No Primary Care Physician [facility] 12-26-2024 14:49-0400 Heart rate 75 /min No Primary Care Physician [facility] 12-26-2024 14:49-0400 Respiratory rate 19 /min No Primary Care Physician [facility] 12-26-2024 14:49-0400 SaO2% (BldA) [Mass fraction] 97 % No Primary Care Physician [facility] 12-26-2024 14:49-0400 Systolic blood pressure 137 mm[Hg] No Primary Care Physician [facility] 12-26-2024 12:08-0400 Body mass index (BMI) [Ratio] 32.7 kg/m2 No Primary Care Physician [facility] 12-26-2024 12:08-0400 Body weight 86.4 kg No Primary Care Physician [facility] 12-11-2024 09:48-0400 Body height 162.56 cm No Primary Care Physician [facility] 12-11-2024 09:48-0400 Body mass index (BMI) [Ratio] 31 kg/m2 No Primary Care Physician [facility] 12-11-2024 09:48-0400 Body temperature 98 [degF] No Primary Care Physician [facility] 12-11-2024 09:48-0400 Body weight 82.1 kg No Primary Care Physician [facility] 12-11-2024 09:48-0400 Diastolic blood pressure 84 mm[Hg] No Primary Care Physician [facility] 12-11-2024 09:48-0400 Heart rate 77 /min No Primary Care Physician [facility] 12-11-2024 09:48-0400 Respiratory rate 15 /min No Primary Care Physician [facility] 12-11-2024 09:48-0400 SaO2% (BldA) [Mass fraction] 99 % No Primary Care Physician [facility] 12-11-2024 09:48-0400 Systolic blood pressure 132 mm[Hg] No Primary Care Physician [facility] 12-05-2024 10:12-0400 Body mass index (BMI) [Ratio] 29.7 kg/m2 No Primary Care Physician [facility] 12-05-2024 06:00-0400 Body temperature 98.1 [degF] No Primary Care Physician [facility] 12-05-2024 06:00-0400 Diastolic blood pressure 78 mm[Hg] No Primary Care Physician [facility] 12-05-2024 06:00-0400 Heart rate 62 /min No Primary Care Physician [facility] 12-05-2024 06:00-0400 Respiratory rate 16 /min No Primary Care Physician [facility] 12-05-2024 06:00-0400 SaO2% (BldA) [Mass fraction] 97 % No Primary Care Physician [facility] 12-05-2024 06:00-0400 Systolic blood pressure 119 mm[Hg] No Primary Care Physician [facility] 11-29-2024 16:37-0400 Body weight 79 kg No Primary Care Physician [facility] 11-25-2024 11:26-0400 Body height 162.56 cm No Primary Care Physician [facility] 11-10-2024 13:42-0400 Diastolic blood pressure 95 mm[Hg] [...] Diastolic blood pressure 110 mm[Hg] Vonnie Dickerson APRN.X RAY SERVICE TECHNICIAN Work Phone: [facility] 11-27-2023 11:34-0400 Systolic blood pressure 190 mm[Hg] Vonnie Dickerson APRN.X RAY SERVICE TECHNICIAN Work Phone: [facility] Encounters Encounter Date Encounter Type Care Provider Facility Start: 01-16-2025 ambulatory Christelle Nicolas Facility :[facility] Start: 01-07-2025 ambulatory Torri Zapata [facility] Fa cility:[facility] Start: 12-31-2024 End: 12-31-2024 ambulatory No Primary Care Physician -Laboratory Specimen Start: 12-31-2024 End: 12-31-2024 [facility] [employer]ER [employer]RIERS SUPERVISOR-C -Laboratory Specimen Work Phone: Start: 12-30-2024 End: 12-30-2024 Dr. Shaun Del Angel MD -[facility] Work Phone: Start: 12-30-2024 End: 12-31-2024 ambulatory No Primary Care Physician -[facility] Start: 12-26-2024 End: 12-26-2024 Dr. Mary Corbin DO -Emergency Departme nt Work Phone: Start: 12-26-2024 End: 12-26-2024 Emergency department patient visit No Primary Care Physician -Emergency Department Start: 12-24-2024 End: 12-24-2024 ambulatory No Primary Care Physician -Home Health Lab Start: 12-24-2024 End: 12-24-2024 [facility] Torri Benny NEWSP[employer]ER [employer] SUPERVISOR-C -Home Health Lab Start: 12-24-2024 End: 12-24-2024 ambulatory Torri Benny [facility] Facility:[facility] Start: 12-11-2024 End: 12-11-2024 Liudmila Lewisemery NEWSP[employer]ER [employer] SUPERVISOR-C -[facility] Work Phone: Start: 12-11-2024 End: 12-11-2024 ambulatory No Primary Care Physician -[facility] Start: 12-07-2024 ambulatory No Primary Car e Physician Facility:[facility] Start: 12-05-2024 Dr. Netta Domingo DO -[facility] Work Phone: Start: 12-03-2024 Dr. Netta Domingo DO [facility] Work Phone: Start: 12-01-2024 Dr. Netta Domingo DO [facility] Work Phone: Start: 11-28-2024 Dr. Netta Domingo DO [facility] Work Phone: Start: 11-26-2024 Dr. Netta Domingo DO [facility] Work Phone: Start: 11-25-2024 Dr. Netta Domingo DO [facility] Work Phone: Start: 11-22-2024 Dr. Netta Domingo DO -[facility] Work Phone: Start: 11-21-2024 Dr. Netta Domingo DO [facility] Work Phone: Start: 11-19-2024 Dr. Netta Domingo DO [facility] Work Phone: Start: 11-18-2024 Dr. Netta Domingo DO [facility] Work Phone: Start: 11-14-2024 Dr. Netta Domingo DO [facility] Work Phone: Start: 11-12-2024 Dr. Netta Domingo DO -[facility] Work Phone: Start: 11-11-2024 Sandra Francisco NP-C -[facility] Work Phone: Start: 11-10-2024 ambulatory Netta Domingo Facility:[facility] Start: 11-10-2024 End: 12-05-2024 Evaluation and management of inpatient No Primary Care Physician -Rehab Unit Start: 11-10-2024 End: 12-05-2024 Dr. Netta Domingo DO -Rehab Unit Work Phone: Start: 11-10-2024 Dr. Vee Stuart MD -[facility] Work Phone: Start: 11-10-2024 ambulatory Vee Stuart Facility:[facility] Start: 11-10-2024 Non-patient / Non-visit Dr. Nehemiah stanley MD [facility] Work Phone: Start: 11-10-2024 Dr. Nehemiah Hammond MD -[facility] Work Phone: Start: 11-09-2024 Non-patient / Non-visit Dr. Nehemiah stanley MD [facility] Work Phone: Start: 11-09-2024 [facility] Work [facility] Start: 11-08-2024 Non-patient / Non-visit Dr. Nehemiah stanley MD [facility] Work Phone: Start: 11-08-2024 [facility] Work Phone: Start: 11-07-2024 Non-patient / Non-visit Dr. Nehemiah stanley MD [facility] Work Phone: Start: 11-07-2024 Dr. Nehemiah [facility] Work Phone: Start: 11-06-2024 Non-patient / Non-visit Dr. Vazquez [facility] Start: 11-06-2024 Dr. Law Eduardo MD [facility] Start: 11-06-2024 Non-patient / Non-visit Dr. Ximena Mccormick MD [facility] Work Phone: Start: 11-06-2024 Dr. Ximena Mccormick MD [facility] Work Phone: Start: 11-05-2024 Non-patient / Non-visit Dr. Nehemiah stanley MD [facility] Work Phone: Start: 11-05-2024 Dr. Nehemiah Hammond MD [facility] Work Phone: Start: 11-04-2024 Non-patient / Non-visit Dr. Shaun cody MD [facility] Start: 11-04-2024 Dr. Shaun Del Angel MD [facility] Start: 11-04-2024 ambulatory No Primary Car e Physician Facility:[facility] Start: 11-04-2024 End: 11-10-2024 Evaluation and management of inpatient Dr. Nehemiah Hammond MD -[facility] Work Phone: Start: 11-04-2024 End: 11-10-2024 Dr. Nehemiah Hammond MD -[facility] Care Un it Work Phone: Start: 11-04-2024 Non-patient / Non-visit Dr. Vazquez [facility] Start: 11-04-2024 Dr. Law Eduardo MD [facility] Start: 11-04-2024 Non-patient / Non-visit Dr. Bakari Domingo [facility] Work Phone: Start: 11-04-2024 Dr. Netta Domingo [facility] Work Phone: Start: 11-01-2024 ambulatory Luis Chi Trav Facility:[facility] Start: 11-01-2024 End: 11-04-2024 Evaluation and management of inpatient Dr. Netta Domingo DO -Rehab Unit Work Phone: Start: 11-01-2024 Non-patient / Non-visit Dr. Vee hansen MD -[facility] Work Phone: Start: 11-01-2024 End: 11-04-2024 Dr. Netta Domingo DO -Rehab Unit Work Phone: Start: 11-01-2024 ambulatory [facility] Facility:[facility] Start: 11-01-2024 Non-patient / Non-visit Dr. Maldonado [facility] Start: 11-01-2024 Dr. Law Eduardo [facility] Start: 10-31-2024 ambulatory [facility] Facility:[facility] Start: 10-31-2024 Non-patient / Non-visit Dr. Maldonado [facility] Start: 10-31-2024 Dr. Law Eduardo [facility] Start: 10-30-2024 ambulatory Sen Clarke Fac ility:[facility] Start: 10-30-2024 End: 11-01-2024 Evaluation and management of inpatient Dr. Nehemiah Haney DO -[facility] Unit Work Phone: Start: 10-30-2024 End: 11-01-2024 Dr. Vee Stuart MD -[facility] it Work Phone: Start: 08-19-2024 End: 08-19-2024 Patient encounter procedure Yefri PIERCE [facility] Work Phone: Start: 08-19-2024 End: 08-19-2024 Yefri PIERCE -[facility] Work Phone: Start: 08-19-2024 End: 08-19-2024 ambulatory No Primary Care Physician [facility] Work Phone: Start: 08-19-2024 End: 08-19-2024 ambulatory Yefri PIERCE Facility:[facility] Start: 11-27-2023 End: 11-27-2023 Patient encounter procedure Vonnie Dickerson APRN.X RAY SERVICE TECHNICIAN Work Phone: [facility] Comment on above: Chest pressure (Prim michael Dx) Start: 11-27-2023 End: 11-27-2023 ambulatory Facility:[facility] Procedures Date Procedure Procedure Detail Performing Clinician Start: 12-31-2024 Liquid based cervica l cytology screening No Primary Care Physician Start: 12-31-2024 Procedure No Primary Care Physician Start: 12-30-2024 Blood count smear mc rscp w/mnl difrntl wbc count No Primary Care Physician Start: 12-30-2024 Mean corpuscular hem oglobin concentration determination No Primary Care Physician Start: 12-30-2024 Neutrophil count No Manisha netta Care Physician Start: 12-30-2024 Nucleated red blood cell count procedure No Primary Care Physician Start: 12-30-2024 Platelet mean volume determination No Primary Care Physician Start: 12-26-2024 Urine culture No Primar Care Physician Start: 12-26-2024 Blood count smear mc rscp w/mnl difrntl wbc count No Primary Care Physician Start: 12-26-2024 Estimated creatinine clearance No Primary Care Physician Start: 12-26-2024 Mean corpuscular hem oglobin concentration determination No Primary Care Physician Start: 12-26-2024 Neutrophil count No Manisha netta Care Physician Start: 12-26-2024 Nucleated red blood cell count procedure No Primary Care Physician Start: 12-26-2024 Platelet mean volume determination No Primary Care Physician Start: 12-26-2024 Urine microscopy: red cells No Primary Care Physician Start: 12-26-2024 Urnls dip stick/tabl et reagent auto microscopy No Primary Care Physician Start: 12-26-2024 CT of head without contrast No Primary Care Physician Start: 12-24-2024 Blood count smear mc rscp w/mnl difrntl wbc count No Primary Care Physician Start: 12-24-2024 Mean corpuscular hem oglobin concentration determination No Primary Care Physician Start: 12-24-2024 Neutrophil count No Manisha netta Care Physician Start: 12-24-2024 Nucleated red blood cell count procedure No Primary Care Physician Start: 12-24-2024 Platelet mean volume determination No Primary Care Physician Start: 12-24-2024 Vitamin D, 25-hydrox y measurement No Primary Care Physician Start: 12-03-2024 Estimated creatinine clearance No Primary Care Physician Start: 12-03-2024 Mean corpuscular hem oglobin concentration determination No Primary Care Physician Start: 12-03-2024 Platelet mean volume determination No Primary Care Physician Start: 11-18-2024 Blood count smear mc rscp w/mnl difrntl wbc count No Primary Care Physician Start: 11-18-2024 Neutrophil count No [facility] Care Physician Start: 11-18-2024 Nucleated red blood cell count procedure No Primary Care Physician Start: 11-18-2024 Total cholesterol:HD L ratio measurement No Primary Care Physician Start: 11-18-2024 Triglycerides measurement No Primary Care Physician Start: 11-11-2024 Serum inorganic phos phate measurement No Primary Care Physician Start: 11-10-2024 Blood count smear mc rscp w/mnl difrntl wbc count No Primary Care Physician Start: 11-10-2024 Estimated creatinine clearance No Primary Care Physician Start: 11-10-2024 Mean corpuscular hem oglobin concentration determination No Primary Care Physician Start: 11-10-2024 Neutrophil count No [facility] Care Physician Start: 11-10-2024 Nucleated red blood cell count procedure No Primary Care Physician Start: 11-10-2024 Platelet mean volume determination No Primary Care Physician Start: 11-08-2024 Serum inorganic phos phate measurement No Primary Care Physician Start: 11-05-2024 Computed tomography of abdomen and pelvis with contrast No Primary Care Physician Start: 11-05-2024 CT of abdomen No Primar Care Physician Start: 11-04-2024 Targeted analysis fo r gene mutation No Primary Care Physician Start: 11-04-2024 Blood count smear mc rscp w/mnl difrntl wbc count No Primary Care Physician Start: 11-04-2024 Mean corpuscular hem oglobin concentration determination No Primary Care Physician Start: 11-04-2024 Neutrophil count No [facility] Care Physician Start: 11-04-2024 Nucleated red blood cell count procedure No Primary Care Physician Start: 11-04-2024 Platelet mean volume determination No Primary Care Physician Start: 11-03-2024 Urine microscopy: red cells No Primary Care Physician Start: 11-03-2024 Urnls dip stick/tabl et reagent auto microscopy No Primary Care Physician Start: 11-03-2024 Estimated creatinine clearance No Primary Care Physician Start: 11-02-2024 Serum inorganic phos phate measurement No Primary Care Physician Start: 11-01-2024 Estimated creatinine clearance No Primary Care Physician Start: 11-01-2024 Blood count smear rscp w/mnl difrntl wbc count No Primary Care Physician Start: 11-01-2024 Mean corpuscular hem oglobin concentration determination No Primary Care Physician Start: 11-01-2024 Neutrophil count No [facility] Physician Start: 11-01-2024 Nucleated red blood cell count procedure No Primary Care Physician Start: 11-01-2024 Platelet mean volume determination No Primary Care Physician Start: 10-31-2024 Assay of triglycerides No Primary Care Physician Start: 10-31-2024 Targeted analysis fo r gene mutation No Primary Care Physician Comment on above: Result: NEGATIVE for the JAK2 [id number] mutation.Interpretation: The G to T nucleotide change encoding [id number] mutation was not detected. This result does [...] inall patients with these disorders. Start: 10-31-2024 Total cholesterol:HD L ratio measurement No Primary Care Physician Start: 10-31-2024 Triglycerides measurement No Primary Care Physician Start: 10-31-2024 MRI of brain without contrast No Primary Care Physician Start: 10-30-2024 Plain chest X-ray No [facility] Care Physician Start: 10-30-2024 CT angiography of head and neck No Primary Care Physician Start: 10-30-2024 CT of head without contrast No Primary Care Physician Start: 10-30-2024 Calculation of inter national normalized ratio No Primary Care Physician Start: 10-30-2024 Estimated creatinine clearance No Primary Care Physician Start: 10-30-2024 Benzodiazepine measu rement, urine No Primary Care Physician Start: 10-30-2024 Cocaine measurement, urine No Primary Care Physician Start: 10-30-2024 Methadone measurement, urine No Primary Care Physician Start: 10-30-2024 Urine cannabinoid measurement No Primary Care Physician Start: 10-30-2024 Urine opiate measurement No Primary Care Physician Start: 08-19-2024 X-ray of foot, three or more views No Primary Care Physician Plan of Treatment Date Care Activity Detail Author Start: 12-31-2024 Liquid based cervical cytology screening [facility] Start: 12-31-2024 Procedure [facility] Start: 12-31-2024 -Laboratory Specimen Work Phone: Start: 12-30-2024 Erythropoietin (EPO) [Units/volume] in Serum or Plasma [facility] Start: 12-30-2024 End: 12-30-2024 -[facility] Work Phone: Start: 12-26-2024 [facility] Start: 12-05-2024 Patient discharge [facility] Start: 12-03-2024 [facility] Start: 11-28-2024 Referral to service [facility] Start: 11-14-2024 [facility] Start: 11-14-2024 [facility] Start: 11-11-2024 [facility] Start: 11-11-2024 Provision of activity privileges [facility] Start: 11-10-2024 [facility] Start: 11-10-2024 Application of intermittent pneumatic compression device [facility] Start: 11-10-2024 Recommendation to continue with treatment [facility] Start: 11-10-2024 Admission procedure [facility] Start: 11-10-2024 Measuring intake and output [facility] Start: 11-10-2024 Referral for physical therapy [facility] Start: 11-10-2024 Referral to service [facility] Start: 11-10-2024 Urinary bladder training [facility] Start: 11-10-2024 Vital signs measurements [facility] Start: 11-10-2024 [facility] Start: 11-10-2024 Referral to occupational therapist [facility] Start: 11-10-2024 Patient discharge [facility] Start: 11-10-2024 Speech therapy assessment [facility] Start: 11-09-2024 [facility] Start: 11-07-2024 Phlebotomy [facility] Start: 11-05-2024 Phlebotomy [facility] Start: 11-04-2024 [facility] Start: 11-04-2024 [facility] Start: 11-04-2024 Notification of physician [facility] Start: 11-04-2024 Patient education [facility] Start: 11-04-2024 Provision of activity privileges [facility] Start: 11-04-2024 Pulse taking [facility] Start: 11-04-2024 Taking patient vital signs [facility] Start: 11-04-2024 Wound care [facility] Start: 11-04-2024 [facility] Start: 11-04-2024 Following clinical pathway protocol [facility] Start: 11-04-2024 Referral to material carrier [facility] Start: 11-04-2024 Ambulation without limitation [facility] Start: 11-04-2024 Assessment of risk of venous thromboembolism [facility] Start: 11-04-2024 Insertion of catheter into peripheral vein [facility] Start: 11-04-2024 Measuring intake and output [facility] Start: 11-04-2024 Providing care according to standard [facility] Start: 11-04-2024 Referral for physical therapy [facility] Start: 11-04-2024 [facility] to [facility] Start: 11-04-2024 Catheterization of vein [facility] Start: 11-04-2024 Notification of physician [facility] Start: 11-04-2024 Preoperative care [facility] Start: 11-04-2024 Consultation [facility] Start: 11-04-2024 Referral to material carrier [facility] Start: 11-04-2024 [facility] Start: 11-04-2024 [...] treatment [facility] Start: 11-01-2024 Referral for physical therapy [facility] Start: 11-01-2024 Referral to service [facility] Start: 11-01-2024 Urinary bladder training [facility] Start: 11-01-2024 Admission procedure [facility] Start: 11-01-2024 Measuring intake and output [facility] Start: 11-01-2024 Vital signs measurements [facility] Start: 11-01-2024 [facility] Start: 11-01-2024 Referral to occupational therapist [facility] Start: 11-01-2024 Patient discharge [facility] Start: 11-01-2024 Speech therapy assessment [facility] Start: 10-31-2024 [facility] Start: 10-31-2024 Application of intermittent pneumatic compression device [facility] Start: 10-31-2024 Following clinical pathway protocol [facility] Start: 10-31-2024 Aspiration precautions [facility] Start: 10-31-2024 Cardiac monitoring [facility] Start: 10-31-2024 Catheterization of vein [facility] Start: 10-31-2024 Consultation [facility] Start: 10-31-2024 Elevation of head of bed [facility] Start: 10-31-2024 Exercises [facility] Start: 10-31-2024 Notification of physician [facility] Start: 10-31-2024 Oxygen therapy [facility] Start: 10-31-2024 End: 10-31-2024 [facility] Start: 10-31-2024 Referral for physical therapy [facility] Start: 10-31-2024 Referral to occupational therapist [facility] Start: 10-31-2024 Referral to service [facility] Start: 10-31-2024 Speech therapy assessment [facility] Start: 10-31-2024 Telemedicine consultation with patient [facility] Start: 10-31-2024 Tobacco use cessation education [facility] Start: 10-31-2024 End: 10-31-2024 [facility] Start: 10-31-2024 Vital signs measurements [facility] Start: 10-30-2024 MRI of brain without contrast Brain without Contrast [facility] Start: 10-30-2024 Hospital admission, emergency, from emergency room, medical nature [facility] Start: 10-30-2024 Admission procedure [facility] Start: 10-30-2024 Thyroid stimulating hormone measurement [facility] Start: 10-30-2024 Oxygen therapy [facility] Start: 10-30-2024 [facility] Start: 12-03-2023 Influenza vaccination Influenza Vaccine (#1) [facility] Start: 2023 Screening for malignant neoplasm of breast Mammogram Screening [facility] Start: 12-02-2022 Covid-19 Vaccine ( season) Covid-19 Vaccine ( season) [facility] Start: 07-23-2021 Screening for malignant neoplasm of cervix Cervical Cancer Screening [facility] Start: 04-09-2020 Annual PCP Team Chronic Disease Visit Annual PCP Team Chronic Disease Visit [facility] Start: 10-10-2002 Hepatitis B Vaccine (1 of 3 - 19+ 3-dose series) Hepatitis B Vaccine (1 of 3 - 19+ 3-dose series) [facility] Start: 10-10-2002 Urine microalbumin profile DTaP,Tdap,Td Vaccine (1 - Tdap) [facility] Start: 10-10-2001 Anxiety Screening Anxiety Screening [facility] Start: 10-10-2001 BP Controlled (<130/80) BP Controlled (<130/80) [facility] Start: 10-10-2001 Depression Screening Depression Screening [facility] Start: 10-10-2001 Hepatitis C screening Hepatitis C Screening [facility] Start: 10-10-2001 HIV screening HIV Screening [facility] Amphetamines [Presen ce] in Urine by Screen method >1000 ng/mL [facility] Anion gap in Serum o r Plasma [facility] Benzodiazepine measu rement, urine [facility] BUN/Creatinine ratio [facility] Calcium [Mass/volume ] in Serum or Plasma [facility] Carbon dioxide, tota l [Moles/volume] in Central venous blood [facility] Cardiac event recording [facility] Cocaine measurement, urine [facility] Creatinine [Mass/vol ume] in Serum or Plasma [facility] Cytology report of C ervical or vaginal smear or scraping Cyto stain.thin prep [facility] Erythropoietin (EPO) [Units/volume] in Serum or Plasma [facility] fentaNYL [Presence] in Urine by Screen method [facility] Folate [Moles/volume ] in Serum or Plasma [facility] Glucose [Mass/volume ] in Serum or Plasma [facility] JAK2 gene p.[id number] e [Presence] in Blood or Tissue by Molecular genetics method [facility] JAK2 gene p.[id number] e [Presence] in Blood or Tissue by Molecular genetics method [facility] Measurement of renal function [facility] Methadone measuremen t, urine [facility] Path report.final Dx Spec [facility] Patient Education [facility] Work Phone: Phencyclidine [Prese nce] in Urine [facility] Potassium measurement [facility] Serum chloride measurement [facility] Sodium measurement [facility] Troponin T.cardiac [Mass/volume] in Serum or Plasma by High sensitivity method [facility] Troponin T.cardiac [Mass/volume] in Serum or Plasma by High sensitivity method [facility] Urea nitrogen [Mass/ volume] in Serum or Plasma [facility] Urine cannabinoid measurement [facility] Urine opiate measurement [facility] Immunizations Immunization Date Immunization Notes Care Provider Fa cility 08-13-2020 Covid (Pfizer) No Primary Ca re Physician [facility] 07-23-2020 Covid (Pfizer) No Primary Ca re Physician [facility] Payers Date Payer Category Payer Self-pay [id number] 2023 Unknown [id number] 2013 Medicaid [id number] 2013 Unknown [id number] Unknown [id number] 2.16.8 40.1.896917.3.579.2.462 Unknown [id number] 2.16.8 40.1.185651.3.579.2.462 Unknown [id number] 2.16.8 40.1.181915.3.579.2.462 Unknown [id number] 2.16.8 40.1.253888.3.579.2.462 Unknown [id number] 2.16.8 40.1.616849.3.579.2.462 Unknown [id number] 2.16.8 40.1.965127.3.579.2.462 Unknown [id number] 2.16.8 40.1.457303.3.579.2.462 Unknown [id number] 2.16.8 40.1.098117.3.579.2.462 Unknown [id number] 2.16.8 40.1.170282.3.579.2.462 Unknown [id number] 2.16.8 40.1.016645.3.579.2.462 Unknown [id number] 2.16.8 40.1.047613.3.579.2.462 Unknown [id number] 2.16.8 40.1.508486.3.579.2.462 Unknown [id number] 2.16.8 40.1.122966.3.579.2.462 Unknown [id number] 2.16.8 40.1.377818.3.579.2.462 Unknown [id number] 2.16.8 40.1.762494.3.579.2.462 Unknown [id number] 2.16.8 40.1.576199.3.579.2.462 Unknown [id number] 2.16.8 40.1.484392.3.579.2.462 Unknown [id number] 2.16.8 40.1.917915.3.579.2.462 Unknown [id number] 2.16.8 40.1.812803.3.579.2.462 Unknown [id number] 2.16.8 40.1.329380.3.579.2.462 Unknown [id number] 2.16.8 40.1.421418.3.579.2.462 Unknown [id number] 2.16.8 40.1.248806.3.579.2.462 Unknown [id number] 2.16.8 40.1.418188.3.579.2.462 Unknown [id number] 2.16.8 40.1.190181.3.579.2.462 Unknown [id number] 2.16.8 40.1.538934.3.579.2.462 Unknown [id number] 2.16.8 40.1.044808.3.579.2.462 Unknown [id number] 2.16.8 40.1.798790.3.579.2.462 Unknown [id number] 2.16.8 40.1.051902.3.579.2.462 Unknown [id number] 2.16.8 40.1.362209.3.579.2.462 Unknown [id number] 2.16.8 40.1.510151.3.579.2.462 Unknown [id number] 2.16.8 40.1.451131.3.579.2.462 Unknown [id number] 2.16.8 40.1.581316.3.579.2.462 Unknown [id number] 2.16.8 40.1.945823.3.579.2.462 Unknown [id number] 2.16.8 40.1.139054.3.579.2.462 Unknown [id number] 2.16.8 40.1.739509.3.579.2.462 Unknown [id number] 2.16.8 40.1.585542.3.579.2.462 Unknown [id number] 2.16.8 40.1.021979.3.579.2.462 Unknown [id number] 2.16.8 40.1.989632.3.579.2.462 Unknown [id number] 2.16.8 40.1.201993.3.579.2.462 Unknown [id number] 2.16.8 40.1.014645.3.579.2.462 Unknown [id number] 2.16.8 40.1.248759.3.579.2.462 Unknown [id number] 2.16.8 40.1.784572.3.579.2.462 Unknown [id number] 2.16.8 40.1.502527.3.579.2.462 Unknown [id number] 2.16.8 40.1.286940.3.579.2.462 Unknown [id number] 2.16.8 40.1.259767.3.579.2.462 Unknown [id number] 2.16.8 40.1.643747.3.579.2.462 Social History Date Type Detail Facility Start: 02-18-2019 End: 12-30-2024 Tobacco smoking status NHIS Ex-smoker [facility] Start: 01-02-2011 End: 01-03-2016 History of tobacco use Current smoker [facility] Start: 01-02-2011 End: 01-03-2016 History of tobacco use Cigarette Smoker [facility] Start: 02-18-2019 End: 03-11-2020 Cigarettes smoked current (pack per day) - Reported 0.5 [facility] Start: 02-18-2019 Tobacco use and exposure Smokeless tobacco non-user [facility] Start: 05-15-2020 Alcoholic beverage intake Current drinker of alcohol (finding) [facility] Start: 03-11-2020 End: 05-15-2020 Tobacco use panel [facility] National Score (1-10 0), lower number is lower risk Not on file [facility] Start: 1985 Sex assigned at Not on file [facility] Start: 11-27-2023 Tobacco smoking stat us NHIS Never smoked tobacco (finding) [facility] Start: 1985 Sex Assigned At Female [facility] Start: 10-30-2024 End: 12-05-2024 Tobacco smoking status NHIS Smokes tobacco daily (finding) [facility] Start: 11-01-2024 Tobacco Use Tobacco Use [facility] Goals Date Patient Goal Desired Activity /State Functional Status Date Assessment Result Facility 12-05-2024 Functional status Standby Assist ;With Assist of 1 [facility] Work Phone: 12-03-2024 Functional status Ambulates;Bathroom Priv ilege [facility] Work Phone: 12-02-2024 Functional status Fair [facility] Work Phone: 11-10-2024 Functional status Bedside Commode [facility] Work Phone: 11-04-2024 Functional status With Assist of 1 [facility] Work Phone: 11-04-2024 Functional status Well [facility] Work Phone: 11-02-2024 Functional status Bedpan [facility] Work Phone: 11-01-2024 Functional status Stand and pivot [facility] Work Phone: Mental Status Date Assessment Result Facility 12-26-2024 Cognitive function Awake [facility] Work Phone: 12-05-2024 Cognitive function Voice/Name [facility] Work Phone: 11-10-2024 Cognitive function Voice/Name [facility] Work Phone: 11-04-2024 Cognitive function Voice/Name [facility] Work Phone: 11-01-2024 Cognitive function Voice/Name [facility] Work Phone: 10-30-2024 Cognitive function Awake;Alert;A ppropriate;Fol lows Commands [facility] Work Phone: Clinical Notes 11-27-2023 to 12-26-2024 Note Date & Type Note Facility 12-26-2024 Radiology Diagnostic study note [facility] 12-26-2024 Discharge summary Note Date/Time December 26, 2024 2:49pm [facility] Medical Records Department [address] [place] [address] Emergency Department Summary 12/26/24 MR#: [id number] Acct: [id number] Name: ELIN OSHEA Rep #:[id number] : 1985 39 From: Mary Poon PCP: ARSENIO Calloway, [employer]C Statu s:REG ER Location: ED HPI History of Present Illness Chief Complaint: Neuro S/Sx Informant: patient Narrative Narrative: Patient is a 39-year-old female with history of prior stroke (residual left-sided leg weakness and paresthesias), Migraines, acquired polycythemia, ADHD andhypertension presenting with worsening shakiness and some lightheadedness. She is not sure if it is from her medications. Patient states that yesterday she had a more exertional day running errands with her grandmother (she states she was not physically that active but it was a lot for her since her stroke and hospitalization/rehab) today at rehab she does with exertion she was tremulous and shaky in her extremities (worse on the left). She also notes that her head sometimes shakes. She is of a familiar history of essential tremor in her mother and grandmother so she is not sure if that is developing. She also reports that she had a fall about 2 weeks ago and hit her head pretty hard. Shewas not evaluated at that time but she felt fine afterwards. She does take 81 mg aspirin daily. She has been taking gabapentin and tizanidine at night but recently realized that she was taking 1 pill and she is post to 2 so she did take more than normal last night. She is not sure if this is related. She denies any headache or fevers. She did have an episode of blurry vision when looking at her phone today however that is since resolved. She states that since she has been discharged home she urinates all the time but also drinks a lot. She denies any dysuria. No other complaints or concerns at this time [facility] Medical History Central neuropathic pain Vaping nicotine dependence, non-tobacco product Allergic rhinitis Migraine headache Hypertension Anxiety Insomnia Amphetamine use Polycythemia HTN (hypertension) ADHD Migraine Home Medications ?Medication ?Instructions ?Recorded ?Last Taken ?Type loratadine 10 mg tablet (Claritin) 10 mg PO DAILY PRN PRN Allergies 01/25/18 Unknown History aspirin 81 mg chewable tablet 81 mg PO DAILYCM heart h ealth #0 11/01/24 11/01/24 Rx tabs acetaminophen 325 mg tablet 650 mg (2 x 325 mg) PO Q6H PRN PRN 12/05/24 Unknown Rx Pain Score 1-10 #0 tabs atorvastatin 80 mg tablet 80 mg PO QHS cholesterol #30 tabs 12/05/24 Unknown Rx bupropion HCl 300 mg 24 hr tablet, 300 mg PO DAILY #30 tabs 12/05/24 Unknown Rx extended release buspirone 10 mg tablet 10 mg PO TID #90 tabs Unknown Rx duloxetine 30 mg capsule,delayed 30 mg PO DAILY #30 ca ps 12/05/24 Unknown Rx release gabapentin 100 mg capsule 200 mg (2 x 100 mg) PO QHS # 30 caps 12/05/24 Unknown Rx lisinopril 10 mg tablet 10 mg PO DAILY blood pressur e #30 12/05/24 Unknown Rx tabs propranolol 40 mg tablet 40 mg PO BID #60 tabs Unknown Rx tizanidine 2 mg tablet 4 mg (2 x 2 mg) PO HS #60 ta bs 12/05/24 Unknown Rx Allergy/AdvReac Type Severity Reaction Status Date / Time naproxen Allergy Hives Verified 12/11/24 09:52 Family History Mother Hypertension Depression Anxiety PTSD (post-traumatic stress disorder) Surgical History History of section Social History household members: children and other details: son who is 16, Ramiro, lives with her number of children: 1 current occupational status: employed 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 Smoking Status: Former smoker alcohol intake: current alcohol intake frequency: 0-2 drinks per day Alcohol type: wine substance use type: marijuana caffeine: No do you feel safe at home: Yes ROS ROS ED Constitutional Constitutional ED: Denies chills, fever(s), sweats or weight loss Eyes Eyes: Reports blurry vision Cardiovascular Cardiovascular: Denies chest pain Respiratory/Chest Respiratory/Chest: Denies cough Gastrointestinal Gastrointestinal: Denies abdominal pain, diarrhea or vomiting Genitourinary Genitourinary ED: Reports urinary frequency; Denies dysuria or hematuria Musculoskeletal Musculoskeletal: Denies arthralgias or myalgias Integumentary Denies rash Neurologic Neurologic: Reports paresthesias LUE, weakness and other Details: Tremor Psychiatric Psychiatric: Denies anxiety Hematologic/Lymphatic Hematologic/Lymphatic: Denies easy bleeding or easy bruising EXAM Physical Exam Const Vital Signs: 12/26/24 12:01 12/26/24 13:01 12/26/24 14:00 Temperature 98 F Temperature Source Temporal Pulse Rate 80 74 69 Respiratory Rate 14 16 23 H Blood Pressure 141/90 H 122/105 H 124/81 H Blood Pressure Mean 107 110 95 Pulse Ox 99 100 97 Oxygen Delivery Method Room Air Room Air Room Air Positive well nourished and well developed General Appearance ED: well developed and NAD HEENT Reports moist mucous membranes Eyes PERRL and EOMs intact bilaterally Neck supple Chest Wall inspection of chest normal and palpation of chest normal Resp normal respiratory effort and clear to auscultation bilaterally Cardio regular rate, regular rhythm and no murmurs GI normal to inspection, nondistended, normoactive bowel sounds and non-tender Extremity normal to inspection General Extremety ED: Negative for edema or tenderness General Extremity: Negative for edema Neuro oriented x3 and CN's II-XII intact bilaterally Neuro Narrative: Subjective paresthesias of the left lower extremity (chronic for patient since her stroke). No drift of the extremities and 5/5 strength in all extremities however she is slightly weaker in her right leg compared to the left (again chronic for her since her stroke). Mild intention tremor noted of the left handwhen she holds her arm out. No tremor of the head appreciated. Normal [id number]. No neglect or gaze deviation. NIH equals 1 for paresthesias however this is chronic Psych mental status grossly normal Skin no rashes or lesions noted and no wounds MDM MDM MDM Narrative Medical decision making narrative: Patient evaluated for shakiness, lightheadedness and generalized weakness. She was discharged from rehab at the beginning of this month and has been doing PT. Was very weak today and shaky. Differential includes electrolyte derangements, dehydration, overuse, symptomatic anemia and underlying infection. Given that she did hit her head 2 weeks ago and had a recent stroke will obtain repeat CT to ensure there is no acute process. Her symptoms today are not consistent with an acute stroke. Her workup is largely normal including CBC, BMP and urinalysis. Patient does have 100 leukocyte esterase in her urine but no bacteria. Will send for culturegiven she is having urinary frequency but will defer treatment at this time. Patient remains hemodynamically stable in the emergency room. TSH was drawn earlier this week and reviewed which was normal. Low suspicion of acute thyroidabnormality causing her symptoms. EKG does not show any arrhythmia. At this time feel that patient can safely be discharged home with outpatient follow-up with neurology for her tremor. Discussed that it could be medication reaction given she took an increased dose of her gabapentin/tizanidine last night or could be from overuse/increased exertion of her muscles given everything she is recently been through. She verbalized agreement understands. Discussed that ifher symptoms worsen or progress she should return to the emergency room. Lab Data Attestation: I reviewed the patient's lab results. Labs: Laboratory Results - last 24 hr 12/26/24 12/26/24 12:11 13:10 WBC 7.6 RBC 4.63 Hgb 14.1 Hct 43.3 MCV 93.5 MCH 30.5 MCHC 32.6 RDW Std Deviation 42.1 RDW Coeff of Maria Teresa 12.1 Plt Count 337 MPV 9.8 Immature Gran % (Auto) 0.500 Neut % (Auto) 63.3 Lymph % (Auto) 25.0 Johnson % (Auto) 9.2 Eos % (Auto) 1.2 Baso % (Auto) 0.8 Absolute Neuts (auto) 4.8 Absolute Lymphs (auto) 1.91 Nucleated RBC % 0 Sodium 138 Potassium 4.1 Chloride 104 Carbon Dioxide 25.5 Anion Gap 8 BUN 15 Creatinine 0.67 L Estim Creat Clear Calc 117.54 Est GFR (MDRD) Non-Af 113 BUN/Creatinine Ratio 22.4 H Glucose 84 Calcium 9.0 Urine Color Yellow Urine Clarity Clear Urine pH 6.5 Ur Specific Cass 1.010 Urine Protein Negative Urine Glucose (UA) Normal Urine Ketones Negative Urine Occult Blood Negative Urine Nitrite Negative Urine Bilirubin Negative Urine Urobilinogen Normal Ur Leukocyte Esterase 100 H Urine RBC 0 SEEN Urine WBC 0-5 SEEN Ur Squamous Epith Cells 0-5 SEEN Urine Bacteria 0 SEEN Urine Mucus 0 SEEN POC Glucose 106 Radiography Diagnostic Testing: Clinical Impression(s) from Imaging Studies Brain CT 12/26/24 12:46 IMPRESSION: No acute intracranial abnormalities. Chronic right frontal infarction. Reading Location: [facility] Rhythm Strip Rhythm Strip: Sinus Rhythm Rate: 73 Ectopy: None EKG Initial EKG: Attestation: I personally reviewed and interpreted this EKG as follows: Interpretation: Sinus Rhythm Comments: Normal sinus rhythm at a rate of 73 bpm Normal axis Normal intervals Normal ST segments Discharge Plan Triage Chief Complaint: Neuro S/Sx ED Provider: Mary Corbin Dx/Rx/DC Orders Clinical Impression: Tremor, Intermittent lightheadedness, History of stroke Instructions: ED Dizziness, Uncertain Cause Prescriptions: No Action loratadine [Claritin] 10 MG tablet 10 mg PO DAILY PRN PRN (Reason: Allergies) aspirin 81 mg Tablet,Chewable 81 mg PO DAILYCM Qty: 0 0RF acetaminophen 325 mg Tablet 650 mg PO Q6H PRN PRN (Reason: Pain Score 1-10) Qty: 0 0RF propranolol 40 mg Tablet 40 mg PO BID Qty: 60 0RF gabapentin 100 mg Capsule 200 mg PO QHS Qty: 30 0RF bupropion HCl 300 mg Tablet Extended Release 24 Hr 300 mg PO DAILY Qty: 30 0RF duloxetine 30 mg Capsule,Delayed Release(Dr/Ec) 30 mg PO DAILY Qty: 30 0RF tizanidine 2 mg Tablet 4 mg PO HS Qty: 60 0RF buspirone 10 mg tablet 10 mg PO TID Qty: 90 0RF Rx Instructions: Take this with breakfast, at 2-3 PM and at bedtime atorvastatin 80 mg Tablet 80 mg PO QHS Qty: 30 0RF lisinopril 10 mg Tablet 10 mg PO DAILY Qty: 30 0RF Primary Care Provider: Torri Zapata Referrals: Liudmila Prado NP-C [Med Staff - [facility] Practice Prof, Neurology] Torri Zapata, ABELARDO [Primary Care Provider, Family Practice] Activity Restrictions/Additional Instructions: If the symptoms persist please call neurology office to schedule follow-up appointment. Workup today was largely normal and reassuring. Exact cause of the symptoms is not clear. It could be due to increased use/exertion or the increase in your medication last night. Your urine was sent for culture to ensure you do not have a urinary tract infection. You will be contacted if you require antibiotics. If you feel like you are worsening please return to the emergency room. Print Language: Luxembourgish Disposition Disposition: Home, Self Care What to do if you have Problems For any increased pain, shortness of breath, bleeding, nausea or vomiting, chestpain, or any unexpected problems, contact your Primary Care Provider. Call [facility] ([phone]) or report to the closest Emergency Room. Call 911 if necessary. 12/26/24 1449 <Electronically signed by Mary Corbin DO> Cosigner Signature (if applicable): CC: ARSENIO Zapata ~ Signed [facility] Work Phone: 1(164) 580-222209-04-2025 Discharge summary Author Netta Domingo [facility] Note Date/Time December 05, 2024 10:11am [facility] Medical Records Department [address] [place] [address] Instructions for Home/Discharge Instructions 11/28/24 1527 MR#: [id number] Acct: [id number] Name: ELIN OSHEA Rep #:[id number] : 1985 39 From: Netta Domingo DO PCP: Care Physician,No Primary Status :ADM IN Discharge Instructions DC O2, CPAP, BIPAP needs Home O2 Discharge instructions: No Dressing / Incision Discharge Activity: May Not Drive, May Shower and - (Use a straight cane when walking longer distances and when out in the community with a lot of people around you. ) Weight Bearing Status: Full weight bearing Dressing / Incision Call your doctor if you observe: Fever of 101 or Higher, Shortness of breath, Dizziness, Fainting spells, Swelling in the ankles, Chest pain, Increased palpitations (irregular heartbeat), Calf discomfort, Uncontrolled pain and - (STROKE symptoms: facial droop, slurred speech, inability to get words out, weakness on 1 side of the body and not the other, numbness on 1 side of the bodyand not the other, inability to maintain your balance sitting or standing, vertigo. ) Follow Up Care When: Appts are listed later in this document. Test Results: Test results from this visit will be discussed in further detail at your follow- up appointment, if applicable. Pending Tests Upon Discharge: none Discharge Plan Admission Admit Date/Time: 11/10/24 13:53 Primary Reason for Your Visit: POST STROKE DEBILITY Attending Provider: Netta Domingo Primary Care Provider: Care Physician,No Primary Instructions Patient Instructions: Journaling for Emotional Wellness, Effects of Stroke on Brain Body, Your Body's Response to Anxiety, 5 Steps for Eating Healthier, Discharge Instructions for Stroke, NAOMI Additional Instructions / Restrictions: 1. You have done a wonderful job with therapy. You have worked hard and I am pleasantly surprised at how much progress you have made. We are all proud (and you should be too) of the effort you have put forth. You have also worked hardon managing ADHD/anxiety/panic attacks/concentration/focus. You ask great questions and you have learned a lot about strokes and how to prevent additionalstrokes going forward. I know that you will continue to improve/recover from the stroke. The reason you had a stroke is not clear cut. There are likely manythings that contributed to the stroke including High blood pressure, smoking, medications you were taking for migraines/ADHD, use of marijuana and alcohol andpolycythemia. Polycythemia is a condition where the bone marrow makes too many red blood cells. This makes the blood thick and then it does not flow through small blood vessels very well and can cause occlusion of a blood vessel in the brain leading to a stroke. you had 2 units of blood removed and you have not needed to have additional blood removed while you were on rehab. You will needto follow up with the radio time buyer (blood doctor) after you leave rehab. Smoking/vaping can lead to an increase in red blood cells so I recommend you do not smoke or vape. 2. I think you have a better understanding now of what a healthy lifestyle entails. Eat a low salt diet. Salt cause the body to retain fluid and can lead to an increase in BP and swelling of the ankles. Follow a low fat diet. Cholesterol can collect inside the arteries and lead to narrowing of the artery which can then eventually occlude. One alcoholic drink a couple times a week is not a problem but, drinking more than this can be a problem. I would like to see you be able to control your stress/insomnia/reactions without having to use alcohol or drugs. Practise the grounding techniques I have given you and get good at setting boundaries. Having good boundaries keeps you from getting overwhelmed. I have given you some literature to read to help you understand how stress affects your mind and body. your coping skills/boundary setting are already much better than they were prior to the stroke. 3. Your new primary care provider, Torri Zapata, is a good listener and is very thorough. It is important to see her regularly because preventative healthcare is always better than waiting until you have a serious problem beforeconsulting your PCP. 4. You developed some pain in the left aide while on rehab that was likely coming form the stroke. We have been giving you Gabapentin (med for nerve pain)and Tizanidine (muscle relaxer) at bedtime. You may no longer need these medications. I did not fax these prescriptions to [facility] but, I did write out a prescription. Try going without for a couple days and if the pain in the L leg and arm returns you can go ahead and get the prescriptions filled. 5. You no longer need the eye drops. 6. DO NOT TAKE NURTEC OR A TRIPTAN FOR MIGRAINES. DO NOT TAKE ADDERALL. THESEMEDICATIONS ARE CONTRAINDICATED IN PEOPLE WITH STROKES. 7. IF you have any questions after you leave rehab please do not hesitate to call me. OFFICE: [phone] CELL: [phone] NURSES STATION ON REHAB: [phone] The patient has a mobility limitation that cannot be sufficiently resolved by using a cane or walker. Use of a w/c will improve the participation in ADLs on aregular basis, in the home and in the community. Discharge Orders/Prescriptions Prescriptions: New acetaminophen 325 mg Tablet 650 mg PO Q6H PRN PRN (Reason: Pain Score 1-10) Qty: 0 0RF propranolol 40 mg Tablet 40 mg PO BID Qty: 60 0RF gabapentin 100 mg Capsule 200 mg PO QHS Qty: 30 0RF bupropion HCl 300 mg Tablet Extended Release 24 Hr 300 mg PO DAILY Qty: 30 0RF duloxetine 30 mg Capsule,Delayed Release(Dr/Ec) 30 mg PO DAILY Qty: 30 0RF tizanidine 2 mg Tablet 4 mg PO HS Qty: 60 0RF buspirone 10 mg tablet 10 mg PO TID Qty: 90 0RF Rx Instructions: Take this with breakfast, at 2-3 PM and at bedtime Continued loratadine [Claritin] 10 MG tablet 10 mg PO DAILY PRN PRN (Reason: Allergies) aspirin 81 mg Tablet,Chewable 81 mg PO DAILYCM Qty: 0 0RF atorvastatin 80 mg Tablet 80 mg PO QHS Qty: 30 0RF lisinopril 10 mg Tablet 10 mg PO DAILY Qty: 30 0RF Discontinued dexamethasone sodium phosphate 0.1 % drops 1 drp ophthalmic (eye) 4X/DAY erythromycin 5 mg/gram (0.5 %) ointment 1 applic ophthalmic (eye) QHS metoprolol tartrate 50 mg Tablet 50 mg PO BID Qty: 0 0RF tizanidine [Zanaflex] 2 mg capsule 2 mg PO Q8H PRN (Reason: muscle relaxer) Referrals / Follow Up: [facility] [Other] - 12/09/24 3:30 pm (Arrive at 3:30 pm to complete paperwork. Bring insurance and ID cards. Appointment at 4:00 pm with counselorEva. ) Shaun Del Angel MD [Med Staff - Active Staff] - 12/26/24 11:00 am (building behind el [facility] ([facility])) Liudmila Prado NP-C [Med Staff - Adv Practice Prof] - 12/11/24 9:30 am Torri Zapata NP-C [[facility]] - 12/17/24 11:00 am Disposition Disposition (needs filled in before D/C Order can be placed): Home Health Service 12/05/24 1011<Electronically signed by Netta Mendozamilton PHILLIPS>Netta Mendozamilton PHILLIPS CC: NEWSPAPER CARRIERS SUPERVISOR-Yuan Prado; [facility] ABELARDO Zapata; Dr. Shaun Del Angel MD; No Primary Care Physician; One [employer] ~ Signed [facility] Work Phone: [phone]) 435-480209-04-2025 Discharge summary Author Netta [facility] [place] [facility] Note Date/Time December 05, 2024 11:45am [facility] Medical Records Department [address] [place] [address] Discharge Summary 12/05/24 1011 MR#: [id number] Acct: [id number] Name: ELIN OSHEA Rep #:[id number] : 1985 39 From: Netta Domingo DO PCP: Care Physician,No Primary Status :ADM IN Location: [place] [address] Providers Date of Admission: 11/10/24 Date of Discharge: 12/05/24 Primary Care Physician: No Primary Care Phys She saw Dr. Del Angel for polycythemia while in the hospital and was phlebotomized for 2 units of packed red blood cells. Reason For Visit: STROKE Diagnosis Discharge Diagnosis (1) Debility: Status: Acute Code(s): R53.81 - Other malaise (2) Stroke: Status: Acute Code(s): I63.9 - Cerebral infarction, unspecified Qualifiers: CVA mechanism: unspecified Qualified Code(s): I63.9 - Cerebral infarction, unspecified Plan: Ischemic with no hemorrhagic conversion. (3) Acute left-sided weakness: Status: Acute Code(s): R53.1 - Weakness Plan: Much improved at the time of DC from rehab and she is now ambulating without an assistive device. She does use a cane for longer distances. (4) Hypertension: Status: Chronic Code(s): I10 - Essential (primary) hypertension Qualifiers: Hypertension type: unspecified Qualified Code(s): I10 - Essential (primary) hypertension Plan: Well-controlled at the time of discharge from rehab on propranolol 40 mg twice daily and lisinopril 10 mg daily. Propanolol was chosen due to hx of migraines. (5) Vaping nicotine dependence, non-tobacco product: Status: Resolved Code(s): F17.200 - Nicotine dependence, unspecified, uncomplicated (6) Acquired polycythemia: Status: Chronic Code(s): D75.1 - Secondary polycythemia (7) ADHD: Status: Chronic Code(s): F90.9 - Attention-deficit hyperactivity disorder, unspecified type Qualifiers: Attention deficit-hyperactivity disorder type: unspecified Qualified Code(s): F90.9 - Attention-deficit hyperactivity disorder, unspecified type Plan: Adderall was discontinued and she is now taking Wellbutrin and Duloxetine to control ADHD. At the time of DC from rehab she is sleeping well, has a good appetite and is much better able to focus/concentrate and problem solve. She can still be impulsive......not sure if this is due to the stroke or to ADHD or both. (8) Migraine headache: Status: Chronic Code(s): G43.909 - Migraine, unspecified, not intractable, without status migrainosus Qualifiers: Intractability: not intractable Migraine type: unspecified Status migrainosus presence: without status migrainosus Qualified Code(s): G43.909 - Migraine, unspecified, not intractable, without status migrainosus Plan: Trigger point injections were done to the R posterior neck/trapezius muscle and she has not complained of PLAZA or neck pain after a few days on rehab. Adderall and polycythemia may both have contributed to PLAZA's. Due to the stroke she is nolonger a candidate for Adderall/amphetamines, nurtec or triptans. (9) Anxiety: Status: Chronic Code(s): F41.9 - Anxiety disorder, unspecified (10) V-tach: Status: Resolved Code(s): I47.20 - Ventricular tachycardia, unspecified (11) Central neuropathic pain: Status: Acute Code(s): M79.2 - Neuralgia and neuritis, unspecified Plan: Treated with Gabapentin and Tizanidine at HS......may no longer need this. I recommended to her that she try not using these for a few days after DC and if the pain recurs she can get the written prescriptions filled. (12) 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 (CVA): Status: Chronic Code(s): I69.398 - Other sequelae of cerebral infarction; F06.31 - Mood disorder due to known physiological condition with depressive features Plan: Good appetite and sleeping well at DC from rehab. She is on Wellbutrin for ADHDand duloxetine for anxiety/depression. Plan 1. Continue therapy 2. Elin wanted to see her MRI and I showed her the images and showed her where the strokes were. I answered her questions to her satisfaction. 3. We spent some time today talking about grounding techniques and she was given a handout. She is compiling a list of "ground rules" for others to adhereto at home......eg. Do not touch her stuff without asking, do not change the settings on devices without talking with Elin, respect her space.....when she goes into her bedroom do not enter without knocking, when she says she needs a moment.......give her space to process. We talked about not being reactionary and allowing herself 24 hours to process a stressful situation before commenting/reacting. Stressed the need to be proactive, not reactive. Talked about how to de-escalate a situation. She was very attentive. 4. Hematocrit has been consistently < 40. The polycythema may have been due tovaping? Medications at Discharge Home Medications loratadine 10 mg tablet (Claritin) 10 mg PO DAILY PRN PRN Allergies 01/25/18 aspirin 81 mg chewable tablet 81 mg PO DAILY heart [facility] #0 tabs 11/01/24 acetaminophen 325 mg tablet 650 mg (2 x 325 mg) PO Q6H PRN PRN Pain Score 1-10 #0 tabs 12/05/24 atorvastatin 80 mg tablet 80 mg PO QHS cholesterol #30 tabs 12/05/24 bupropion HCl 300 mg 24 hr tablet, extended release 300 mg PO DAILY #30 tabs 12/05/24 buspirone 10 mg tablet 10 mg PO TID #90 tabs 12/05/24 duloxetine 30 mg capsule,delayed release 30 mg PO DAILY #30 caps 12/05/24 gabapentin 100 mg capsule 200 mg (2 x 100 mg) PO QHS #30 caps 12/05/24 lisinopril 10 mg tablet 10 mg PO DAILY blood pressure #30 tabs 12/05/24 propranolol 40 mg tablet 40 mg PO BID #60 tabs 12/05/24 tizanidine 2 mg tablet 4 mg (2 x 2 mg) PO HS #60 tabs 12/05/24 Physical Exam Const alert, oriented x3 and no apparent distress Constitutional Narrative: She is drowsy and c/o feeling very tired. She arouses easily and is able to stay awake to converse with me. General Appearance: cooperative, comfortable and well kempt HEENT normocephalic, head/scalp atraumatic and hearing grossly normal bilaterally Eyes PERRL, EOMs intact bilaterally, conjunctivae normal and no scleral icterus Eyes Narrative: No discharge from the eyes. No mattering of the eye shows. General Eye: normal appearance of both eyes and normal light reflex Neck No nuchal rigidity, supple, No nodes and no carotid bruits General: trachea midline Chest Chest: symmetrical chest wall rise Resp normal respiratory effort, normal air movement and clear to auscultation bilaterally Effort and Inspection: able to speak in complete sentences Cardio regular rate, regular rhythm, S1 normal heart sound, S2 normal heart sound, no murmurs, no rub and no gallops Cardio Narrative: No ectopy GI normal to inspection, nondistended, normoactive bowel sounds, soft to palpation and non-tender GI Narrative: No guarding with palpation. no CVA tenderness Narrative: She came to us with a Smith catheter in place secondary to urinary retention. Back/Spine straight leg raise negative bilaterally Extremity no calf tenderness and no pedal edema Skin General Skin Exam: no breakdown Rashes: no rashes Neuro Neuro Narrative: Alert and oriented x 3. Cranial nerves II through XII are grossly intact. No visual field cuts. No nystagmus. Tongue protrudes on the midline. Palate elevates symmetrically. Intact sensation in the face. Facial droop has completely resolved. No dysarthria. No drift with the right upper extremity orleft upper extremity. No pronator drift. Decreased sensation in the left upperextremity when compared to the right. No tremors. No ataxia with the upper extremities. There is mild drift with the left lower extremity with elevation but it does not hit the bed. No ataxia in the left lower extremity. Decreased sensation in the left lower extremity when compared to the right. She has dorsiflexion and plantarflexion of the left foot but it is weaker than the right. No extinction. Psych cooperative Psych Narrative: Calm. Able to focus. No flight of ideas. Sleeping well at night and god appetite. able to stay on task much better than at admission. Appearance: appropriate and well kempt Activity / Motor Behavior: appropriate eye contact Speech: normal speech, No pressured and No slurred Mood & Affect: euthymic mood Thought Process: No flight of ideas, No loose associations, No tangential and Noracing thoughts Thought Content: normal thought content and No suicidality Weight / BMI Weight Weight: 174 lb 2.643 oz Body Mass Index (BMI) 29.7 ABG / Lab / Microbiology Data 12/03/24 05:55 12/03/24 05:55 Indicators for Scoring Admitted with or Primary Diagnosis of CVA/Stroke: Yes Hx of CVA/Stroke: Yes Modified [place] Score MRS Score at time of Evaluation: 3-Moderate disability NIHSS NIHSS 1a. Level of Consciousness: 0 - Alert; keenly responsive 1b. LOC Questions: 0 - Answers BOTH questions correctly 1c. LOC Commands: 0 - Performs BOTH tasks correctly 2. Best Gaze: 0 - Normal 3. Visual: 0 - No visual loss 4. Facial Palsy: 0 - Normal symmetrical movements 5a. Left Arm: 0 - No drift; arm holds 90 (or 45) degrees for full 10 seconds 5b. Right Arm: 0 - No drift; arm holds 90 (or 45) degrees for full 10 seconds 6a. Left Le - Drift; leg falls by the end of 5-seconds, but does not hit bed 6b. Right Le - No drift; leg holds 30-degree position for full 5 seconds 7. Limb Ataxia: 0 - Absent 8. Sensory: 1 - Xeml-cf-[id number] sensory loss; (Mild to moderate sensory loss inthe left lower extremity and left upper extremity. Sensation in the face is normal now but she had decreased sensation at admission.) 9. Best Language: 0 - No aphasia; normal 10. Dysarthria: 0 - Normal 11. Extinction and Inattention: 0 - No abnormality Total: 2 (NIHSS score at admission to rehab was 11.) Stroke Questions Stroke Team Activated: No D/C Instructions Diet Diet Order/Speech Therapy: INPATIENT Hospital Diet / Speech Therapy Order(s) 11/11/24 13:10 Diet: Cardiac: Calorie-Controlled How many daily calories?: 1800 calorie Discharge order: Continue INPATIENT Hospital Diet / Speech Therapy Orders: No Discharge Diet: Low fat / Low cholesterol (Also low salt. Salt can increase BP. ) Weight Bearing Status: Full weight bearing Call your doctor if you observe: Fever of 101 or Higher, Shortness of breath, Dizziness, Fainting spells, Swelling in the ankles, Chest pain, Increased palpitations (irregular heartbeat), Calf discomfort, Uncontrolled pain and - (STROKE symptoms: facial droop, slurred speech, inability to get words out, weakness on 1 side of the body and not the other, numbness on 1 side of the bodyand not the other, inability to maintain your balance sitting or standing, vertigo. ) DC O2, CPAP, BIPAP Needs RN Home O2 qualification: 2 No Data to Display Home O2 Discharge instructions: No Pending Tests Upon Discharge: none When: Appts are listed later in this document. Meaningful Use Info Meaningful Use Meaningful Use [...] not Indicated Discharge Plan Admission Admit Date/Time: 11/10/24 13:53 Primary Reason for Your Visit: POST STROKE DEBILITY Attending Provider: Netta Domingo Primary Care Provider: Care Physician,No Primary Instructions Patient Instructions: Journaling for Emotional Wellness, Effects of Stroke on Brain Body, Your Body's Response to Anxiety, 5 Steps for Eating Healthier, Discharge Instructions for Stroke, NAOMI Additional Instructions / Restrictions: 1. You have done a wonderful job with therapy. You have worked hard and I am pleasantly surprised at how much progress you have made. We are all proud (and you should be too) of the effort you have put forth. You have also worked hardon managing ADHD/anxiety/panic attacks/concentration/focus. You ask great questions and you have learned a lot about strokes and how to prevent additionalstrokes going forward. I know that you will continue to improve/recover from the stroke. The reason you had a stroke is not clear cut. There are likely many things that contributed to the stroke including High blood pressure, smoking, medications you were taking for migraines/ADHD, use of marijuana and alcohol and polycythemia. Polycythemia is a condition where the bone marrow makes too many red blood cells. This makes the blood thick and then it does notflow through small blood vessels very well and can cause occlusion of a blood vessel in the brain leading to a stroke. you had 2 units of blood removed and you have not needed to have additional blood removed while you were on rehab. You will need to follow up with the radio time buyer (blood doctor) after you leave rehab. Smoking/vaping can lead to an increase in red blood cells so I recommendyou do not smoke or vape. 2. I think you have a better understanding now of what a healthy lifestyle entails. Eat a low salt diet. Salt cause the body to retain fluid and can lead to an increase in BP and swelling of the ankles. Follow a low fat diet. Cholesterol can collect inside the arteries and lead to narrowing of the artery which can then eventually occlude. One alcoholic drink a couple times a week is not a problem but, drinking more than this can be a problem. I would like to see you be able to control your stress/insomnia/reactions without having to use alcohol or drugs. Practise the grounding techniques I have given you and get good at setting boundaries. Having good boundaries keeps you from getting overwhelmed. I have given you some literature to read to help you understand how stress affects your mind and body. your coping skills/boundary setting are already much better than they were prior to the stroke. 3. Your new primary care provider, Torri Zapata, is a good listener and is very thorough. It is important to see her regularly because preventative healthcare is always better than waiting until you have a serious problem beforeconsulting your PCP. 4. You developed some pain in the left aide while on rehab that was likely coming form the stroke. We have been giving you Gabapentin (med for nerve pain)and Tizanidine (muscle relaxer) at bedtime. You may no longer need these medications. I did not fax these prescriptions to [facility] but, I did write out a prescription. Try going without for a couple days and if the pain in the L leg and arm returns you can go ahead and get the prescriptions filled. 5. You no longer need the eye drops. 6. DO NOT TAKE NURTEC OR A TRIPTAN FOR MIGRAINES. DO NOT TAKE ADDERALL. THESEMEDICATIONS ARE CONTRAINDICATED IN PEOPLE WITH STROKES. 7. IF you have any questions after you leave rehab please do not hesitate to call me. OFFICE: [phone] CELL: [phone] NURSES STATION ON REHAB: [phone] The patient has a mobility limitation that cannot be sufficiently resolved by using a cane or walker. Use of a w/c will improve the participation in ADLs on aregular basis, in the home and in the community. Discharge Orders/Prescriptions Prescriptions: New acetaminophen 325 mg Tablet 650 mg PO Q6H PRN PRN (Reason: Pain Score 1-10) Qty: 0 0RF propranolol 40 mg Tablet 40 mg PO BID Qty: 60 0RF gabapentin 100 mg Capsule 200 mg PO QHS Qty: 30 0RF bupropion HCl 300 mg Tablet Extended Release 24 Hr 300 mg PO DAILY Qty: 30 0RF duloxetine 30 mg Capsule,Delayed Release(Dr/Ec) 30 mg PO DAILY Qty: 30 0RF tizanidine 2 mg Tablet 4 mg PO HS Qty: 60 0RF buspirone 10 mg tablet 10 mg PO TID Qty: 90 0RF Rx Instructions: Take this with breakfast, at 2-3 PM and at bedtime Continued loratadine [Claritin] 10 MG tablet 10 mg PO DAILY PRN PRN (Reason: Allergies) aspirin 81 mg Tablet,Chewable 81 mg PO DAILYCM Qty: 0 0RF atorvastatin 80 mg Tablet 80 mg PO QHS Qty: 30 0RF lisinopril 10 mg Tablet 10 mg PO DAILY Qty: 30 0RF Discontinued dexamethasone sodium phosphate 0.1 % drops 1 drp ophthalmic (eye) 4X/DAY erythromycin 5 mg/gram (0.5 %) ointment 1 applic ophthalmic (eye) QHS metoprolol tartrate 50 mg Tablet 50 mg PO BID Qty: 0 0RF tizanidine [Zanaflex] 2 mg capsule 2 mg PO Q8H PRN (Reason: muscle relaxer) Referrals / Follow Up: [facility] [Other] - 12/09/24 3:30 pm (Arrive at 3:30 pm to complete paperwork. Bring insurance and ID cards. Appointment at 4:00 pm with counselorEva. ) Shaun Del Angel MD [Med Staff - Active Staff] - 12/30/24 3:00 pm [facility] Liudmila Prado NP-C [Med Staff - Adv Practice Prof] - 12/11/24 9:30 am Torri Zapata NP-C [[facility]] - 12/17/24 11:00 am Disposition Disposition (needs filled in before D/C Order can be placed): Home Health Service Charges/Coding Visit Charges Inpatient E&M: 66701 Disch Hosp >30min Hospital Course RU Operations None Procedures - (Phlebotomized for 2 units of packed red blood cells for HCTof 58.5. Hematocrit at discharge from rehab has ranged from 35.7 on 11/10/2019 5-39.2 on 12/03/2024.) Summary of Care Provided Minutes Spent on Discharge: 55 Hospital Course: Elin is a 39-year-old [facility] complaining of left arm weakness, left leg weakness and slurred speech. Hemoglobin at admission was 18.5 and lab was not consistent with dehydration. Urine drug screen at admission was positive for amphetamine (she had been taking prescribed Adderall for ADHD) and cannabinoids. CT brain showed a left frontal lacunar infarct. CTA of the head and neck was negative for large vessel occlusion, high-grade stenosis and aneurysm. She was not a candidate for TNK due to time. She was admitted to thehospitalist service. MRI showed a large area of [...] showed normal left ventricular size with an ejection fraction of 60%. Bubble contrast study was negative for wqexa-pu-mdor interatrial shunt and no thrombus was detected in the left atrial appendage. She was seen by neurology and they recommended aspirin 81 mg daily and atorvastatin 80 mg daily. She was instructed to stop vaping. Blood Pressures have been quite elevated at times and she is quite anxious. She had been taking dextroamphetamine/amphetamine 30mg twice daily for ADD. She was transferred to the acute inpt rehab unit at [facility] 11/01/24 for 3 hours of therapy daily to restore function, independence at or near her level prior to admission to the hospital. On 11/04/24 she c/o CP and there were EKG changes. [facility] Cardiac cath was performed and showed normal coronary arteries with normal left ventricular size, wall motion and systolic function. She was polycythemic and was seen by Dr. Del Angel from Heme/onc. JAK2 V617F was negative. CT scan of the abd and pelvis with contrast was unremarkableshowing no hepatic or renal tumors. Erythropoietin level was unremarkable at 2.1. Phlebotomy was suggested to keep HCT at 45 or less. She underwent phlebotomy X 2 and the HCT on 11/08/24 was 39.2. She was transferred back to inptrehab for 3 hours of therapy daily on 11/10/24 to restore function/independence. Adderall, Nurtec and triptans were discontinued at admission to rehab due to CVA. She was started on Wellbutrin for ADHD sx. She c/o R side migraine (noaura) and right posterior neck/trapezius pain/spasm. Bupivacaine and 10 mg of Decadron was used to inject trigger points involving the R neck and upper trapezius muscle on the R. She was ordered tizanidine for spasm. After 48 hours she had no PLAZA and no neck pain and these things have not recurred since the injection. Elin was quite anxious at presentation to rehab. She also admitted to having some feelings of depression. She was started on Duloxetine. Anxiety/depression is much better at discharge. She has no suicidal or homicidal ideation. She is better able to focus and attend to what is being said to her and what is being asked of her. She is still somewhat impulsive butthis could be due to ADHD or the stroke. While on rehab she developed some neuropathic type pain in the left arm and left lower extremity and was started on gabapentin. We were able to taper the gabapentin to 200 mg at at bedtime prior to discharge. At the time of discharge I did not send a prescription to the pharmacy for gabapentin or tizanidine at bedtime. She understands that she should try a couple days without these medications but if the pain/spasms recur then she has a written prescription for both tizanidine and gabapentin which shecan get filled. Elin did amazingly well on rehab. The NIHSS score has decreased from 11 at admission to rehab to 2 at discharge. Her modified [place] score is now 3, down from 4 at admission. She worked hard and at the time of DC she is ambulating without an assistive device, except when ambulating longer distances. She no longer has flight of ideas and she is asking good questions. We have worked on grounding techniques and boundaries while she has been on rehab. She knows some good techniques for dealing with a stressful situation without becoming overwhelmed and decompensating. She has written down some boundaries that she is going to share with her family. 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 DME includes a transfer wheelchair to facilitate traveling long distances in the community for doctors appts and such. A referral was made by the to the drivers rehab program at [facility] and she will go there to be tested when she and her therapists feel she is safe to drive again. She has follow up appts scheduled with Kitty CESAR/MARY for primary care, with Liudmila Prado for neurology, with Norma Castanon for counselling and with Dr. Del Angel for polycythemia. 12/05/24 8229 <Electronically signed by Netta Domingo DO> Cosigner Signature (if applicable): CC: ABELARDO Prado; [facility] ABELARDO Zapata; Dr. Shaun Del Angel MD; Dr. Netta Domingo DO; No Primary Care Physician; One [employer]~ Signed [facility] Work Phone: 1(223) 623-355109-04-2025 [facility]09-02-2025 Progress note Author Netta Domingo [facility] Note Date/Time December 03, 2024 2:54pm [facility] Medical Records Department [address] [place] [address] Progress Note 12/03/24933 MR#: [id number] Acct: [id number] Name: ELIN OSHEA Rep #:[id number] : 1985 39 From: Netta Domingo DO PCP: Care Physician,No Primary Status :ADM IN Location: [place] [address] Subjective Subjective Afebrile VSS - Maintaining appropriate oxygen saturation on RA Oral intake - FOOD good FLUIDS good Discussed with nursing - no problems that need addressed Reviewed the THERAPY notes Medication list reviewed. All lab from this morning was personally reviewed. CBC is unremarkable. Hemoglobin is stable at 12.9 and the hematocrit is stable at 39.2. Sodium is 137 and the potassium is 3.9. BUN is 9 and the creatinine is stable at 0.64. Joslyn denies cephalgia, neck pain, chest pain, palpitations, shortness of breath, dysuria and calf pain. She is sleeping well at night and has a good appetite. Objective Data Objective Data Vital Signs: Vital Signs Temp Pulse Resp BP Pulse Ox O2 Del Method 97.7 F L 69 17 133/97 H 96 Room Air 12/03/24 06:00 12/03/24 06:00 12/03/24 06:00 12/03/24 06:00 12/03/24 06:00 12/03/24 06:00 Oxygen Delivery Method Room Air Weight: 174 lb 2.643 oz Body Mass Index (BMI) 29.7 Intake & Output: Intake and Output for Last 24 Hours 12/01/24 12/02/24 12/03/24 23:59 23:59 23:59 Intake Total 710 / 710 1610 / 1610 Output Total 600 / 600 1250 / 1250 250 / 250 Balance 110 / 110 360 / 360 -250 / -250 Lab / Micro Data 12/03/24 05:55 12/03/24 05:55 Labs: Laboratory Results - last 24 hr 12/03/24 05:55: WBC 8.1, RBC 4.18 L, Hgb 12.9, Hct 39.2, MCV 93.8, MCH 30.9, MCHC 32.9, RDW Std Deviation 42.5, RDW Coeff of Maria Teresa 12.4, Plt Count 243, MPV 10.0, Sodium 137, Potassium 3.9, Chloride 105, Carbon Dioxide 23.5, Anion Gap 9,BUN 9, Creatinine 0.64 L, Estim Creat Clear Calc 117.64, Est GFR (MDRD) Non-Af 114, BUN/Creatinine Ratio 13.8, Glucose 107 H, Calcium 8.9 Physical Exam Const alert and oriented x3 Resp normal respiratory effort and clear to auscultation bilaterally Cardio regular rate, regular rhythm, no murmurs and no gallops GI normal to inspection, nondistended, normoactive bowel sounds, soft to palpation and non-tender Extremity General Extremity: Negative for edema Skin Rashes: no rashes Neuro Neuro Narrative: She is walking without a device but still has some loss of balance. She continues to be impulsive and moves too quickly at times causing her to lose herbalance. She tries to turn around and talk with someone while ambulating and this causes a loss of balance. Assessment & Plan Assessment/Plan (1) Debility: (2) Stroke: QUALIFIERS: CVA mechanism: unspecified Qualified Code(s): I63.9 -Cerebral infarction, unspecified (3) Acute left-sided weakness: (4) Hypertension: QUALIFIERS: Hypertension type: unspecified Qualified Code(s): I10- Essential (primary) hypertension (5) Vaping nicotine dependence, non-tobacco product: (6) Acquired polycythemia: (7) ADHD: QUALIFIERS: Attention deficit-hyperactivity disorder type: unspecified Qualified Code(s): F90.9 - Attention-deficit hyperactivity disorder,unspecified type (8) Migraine headache: QUALIFIERS: Migraine type: unspecified Status migrainosus presence: without status migrainosus Intractability: not intractable QualifiedCode(s): G43.909 - Migraine, unspecified, not intractable, without status migrainosus (9) Anxiety: (10) V-tach: (11) Central neuropathic pain: (12) 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 (CVA): PLAN: Plan 1. Continue therapy 2. Elin wanted to see her MRI and I showed her the images and showed her where the strokes were. I answered her questions to her satisfaction. 3. We spent some time today talking about grounding techniques and she was given a handout. She is compiling a list of "ground rules" for others to adhereto at home......eg. Do not touch her stuff without asking, do not change the settings on devices without talking with Elin, respect her space.....when she goes into her bedroom do not enter without knocking, when she says she needs a moment.......give her space to process. We talked about not being reactionary and allowing herself 24 hours to process a stressful situation before commenting/reacting. Stressed the need to be proactive, not reactive. Talked about how to de-escalate a situation. She was very attentive. 4. Hematocrit has been consistently < 40. The polycythema may have been due tovaping? Charges/Coding Visit Charges Inpatient E&M: 20524 Subs Hosp L1 12/03/24 1454 <Electronically signed by Netta Domingo DO> Netta Domingo DO Cosigner Signature (if applicable): CC: ~ Signed [facility] Work Phone: 1(735) 667-634309-02-2025 Progress note Author Netta Domingo [facility] Note Date/Time December 03, 2024 9:34am [facility] Medical Records Department [address] [place] [address] Progress Note 12/01/24 0921 MR#: [id number] Acct: [id number] Name: ELIN OSHEA Rep #:[id number] : 1985 39 From: Netta Domingo DO PCP: Care Physician,No Primary Status :ADM IN Location: [place] [address]1 Subjective Subjective Afebrile VSS -blood pressure over the past 24 hours has ranged from 104/59 this morning to 137/84. Heart rate is within normal limits. Maintaining appropriate oxygen saturation on RA Oral intake - FOOD good FLUIDS good Discussed with nursing - no problems that need addressed Reviewed the THERAPY notes Medication list reviewed. Elin denies lightheadedness, vertigo, CP, SOB at rest, SOB with exertion, cough, nausea, vomiting, abd pain, diarrhea, constipation, dysuria, calf pain and ankle swelling. We discussed triggers for stress and possible coping mechanisms. Objective Data Objective Data Vital Signs: Vital Signs Temp Pulse Resp BP Pulse Ox O2 Del Method 97.6 F L 68 16 104/59 L 97 Room Air 12/01/24 06:00 12/01/24 06:00 12/01/24 06:00 12/01/24 06:00 12/01/24 06:00 12/01/24 06:00 Oxygen Delivery Method Room Air Weight: 174 lb 2.643 oz Body Mass Index (BMI) 29.7 Intake & Output: Intake and Output for Last 24 Hours 11/29/24 11/30/24 12/01/24 23:59 23:59 23:59 Intake Total 402 / 402 2110 / 2110 110 / 110 Output Total 800 / 800 950 / 950 Balance -398 / -398 1160 / 1160 110 / 110 Lab / Micro Data 12/03/24 05:55 12/03/24 05:55 Physical Exam Const alert and oriented x3 Resp normal respiratory effort and clear to auscultation bilaterally Cardio regular rate, regular rhythm, no murmurs and no gallops GI normal to inspection, nondistended, normoactive bowel sounds, soft to palpation and non-tender Extremity General Extremity: Negative for edema Skin Rashes: no rashes Assessment & Plan Assessment/Plan (1) Debility: (2) Stroke: QUALIFIERS: CVA mechanism: unspecified Qualified Code(s): I63.9 -Cerebral infarction, unspecified (3) Acute left-sided weakness: (4) Hypertension: QUALIFIERS: Hypertension type: unspecified Qualified Code(s): I10- Essential (primary) hypertension (5) Vaping nicotine dependence, non-tobacco product: (6) Acquired polycythemia: (7) ADHD: QUALIFIERS: Attention deficit-hyperactivity disorder type: unspecified Qualified Code(s): F90.9 - Attention-deficit hyperactivity disorder,unspecified type (8) Migraine headache: QUALIFIERS: Migraine type: unspecified Status migrainosus presence: without status migrainosus Intractability: not intractable QualifiedCode(s): G43.909 - Migraine, unspecified, not intractable, without status migrainosus (9) Anxiety: (10) V-tach: (11) Central neuropathic pain: (12) 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 (CVA): PLAN: Plan 1. Continue therapy 2. No changes to the medication regimen today Charges/Coding Visit Charges Inpatient E&M: 55233 Subs Hosp L1 12/03/24 0934 <Electronically signed by Netta Domingo DO> Netta Domingo DO Cosigner Signature (if applicable): CC: ~ Signed [facility] Work Phone: 1(373) 663-734008-28-2025 Progress note Author Netta [facility] [facility] Note Date/Time November 28, 2024 3: 25pm [facility] Medical Records Department [address] [place] [address] Progress Note 11/28/24826 MR#: [id number] Acct: [id number] Name: ELIN OSHEA Rep #:[id number] : 1985 39 From: Netta Domingo DO PCP: Care Physician,No Primary Status :ADM IN Location: [place] [address] Subjective Subjective Elin was seen on TEAM rounds today. Her aunt Gloria participated by phone. Allquestions were answered to their satisfaction. Afebrile VSS -blood pressure this AM is 125/85. Lisinopril was decreased 2 days ago to 10 mg once a day due to low BP. HR is WNL. Will continue to monitor the BP andif the diastolic is consistently > 80 will add Lisinopril 5 mg at HS. Maintaining appropriate oxygen saturation on RA Oral intake - FOOD good FLUIDS good Discussed with nursing - no problems that need addressed. Sleeping well at night and has good appetite. Reviewed the THERAPY notes - continues to make excellent progress. She ambulated without an assistive device today. Drags the left leg at times. Stillwith L side neglect. Medication list reviewed. Joslyn denies cephalgia, neck pain, palpitations, chest pain, cough, shortness of breath, nausea/vomiting/abdominal pain, dysuria and calf tenderness. Objective Data Objective Data Vital Signs: Vital Signs Temp Pulse Resp BP Pulse Ox O2 Del Method 97.9 F 66 18 125/85 H 98 Room Air 11/28/24 08:12 11/28/24 08:12 11/28/24 08:12 11/28/24 08:12 11/28/24 08:12 11/28/24 08:12 Oxygen Delivery Method Room Air Weight: 170 lb Body Mass Index (BMI) 29.0 Intake & Output: Intake and Output for Last 24 Hours 11/26/24 11/27/24 11/28/24 23:59 23:59 23:59 Intake Total 1650 / 1650 1130 / 1130 660 / 660 Output Total 1000 / 1000 550 / 550 200 / 200 Balance 650 / 650 580 / 580 460 / 460 Lab / Micro Data 11/25/24 06:32 11/23/24 06:14 Physical Exam Const alert and oriented x3 Resp normal respiratory effort and clear to auscultation bilaterally Resp Narrative: No cough Effort and Inspection: Negative for tachypneic Cardio regular rate, regular rhythm, no murmurs and no gallops GI normal to inspection, nondistended, normoactive bowel sounds, soft to palpation and non-tender Extremity no calf tenderness General Extremity: Negative for edema Skin Rashes: no rashes Assessment & Plan Assessment/Plan (1) Debility: (2) Stroke: QUALIFIERS: CVA mechanism: unspecified Qualified Code(s): I63.9 -Cerebral infarction, unspecified (3) Acute left-sided weakness: (4) Hypertension: QUALIFIERS: Hypertension type: unspecified Qualified Code(s): I10- Essential (primary) hypertension (5) Vaping nicotine dependence, non-tobacco product: (6) Acquired polycythemia: (7) ADHD: QUALIFIERS: Attention deficit-hyperactivity disorder type: unspecified Qualified Code(s): F90.9 - Attention-deficit hyperactivity disorder,unspecified type (8) Migraine headache: QUALIFIERS: Intractability: not intractable Migraine type: unspecified Status migrainosus presence: without status migrainosus Qualified Code(s): G43.909 - Migraine, unspecified, not intractable, without status migrainosus (9) Anxiety: (10) V-tach: (11) Central neuropathic pain: (12) 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 (CVA): PLAN: Plan 1. Continue therapy 2. Planning for discharge home on 12/06/2024. She will have home health care at discharge. Follow-up has been scheduled with [facility] and also with Torri Zapata NP. She will also need to follow-up with Dr. Ge from neurology.......for CVA and for migraines. she will also follow up with Dr. Del Angelfor polycythemia 3. she has some anxiety about going home and the change in her stress level. Worried about getting overwhelmed and resorting to old coping mechanisms. We are going to work on setting boundaries next week to prevent getting overwhelmed. 4. CBC and BMP on Monday 5. will have her/family get a BP cuff to monitor the BP's at home....suspect stress level may increase The patient has a mobility limitation that cannot be sufficiently resolved by using a cane or walker. Use of a w/c will improve the participation in ADLs on aregular basis, in the home and will also make longer distances possible when sheis attending doctors appts. Charges/Coding Visit Charges Inpatient E&M: 82787 Subs Hosp L2 11/28/24 7667 <Electronically signed by Netta Domingo DO> Netta Domingo DO Cosigner Signature (if applicable): CC: ~ Signed [facility] Work Phone: 1(473) 867-299908-26-2025 Progress note Author Netta [facility] [place] [facility] Note Date/Time November 26, 2024 3: 53pm [facility] Medical Records Department [address] [place] [address] Progress Note 11/26/24 1004 MR#: [id number] Acct: [id number] Name: ELIN OSHEA Rep #:[id number] : 1985 39 From: Netta Domingo DO PCP: Care Physician,No Primary Status :ADM IN Location: [place] [address]1 Subjective Subjective Afebrile VSS - Maintaining appropriate oxygen saturation on RA Oral intake - FOOD good FLUIDS good Discussed with nursing - no problems that need addressed Reviewed the THERAPY notes Medication list reviewed. Good appetite. Sleeping well at night. Denies cephalgia and also denies neck pain. Continues to progress in therapy. she had some questions about who she is going to follow up with post Dc from rehab and I answered this.......also hadquestions about what meds she would be on. I reassured her she would receive a list of all the meds and discharge instruction/DCS on the day of DC. D/W SW - plan on DC on 12/06/24. Objective Data Objective Data Vital Signs: Vital Signs Temp Pulse Resp BP Pulse Ox O2 Del Method 97.7 F L 69 18 92/65 97 Room Air 11/26/24 06:00 11/26/24 06:00 11/26/24 06:00 11/26/24 06:00 11/26/24 06:00 11/26/24 06:00 Oxygen Delivery Method Room Air Weight: 170 lb Body Mass Index (BMI) 29.0 Intake & Output: Intake and Output for Last 24 Hours 11/24/24 11/25/24 11/26/24 23:59 23:59 23:59 Intake Total 2300 / 2300 920 / 1020 640 / 640 Output Total 1300 / 1300 800 / 800 300 / 300 Balance 1000 / 1000 120 / 220 340 / 340 Lab / Micro Data 11/25/24 06:32 11/23/24 06:14 Physical Exam Const alert, oriented x3 and no apparent distress Constitutional Narrative: calm. Making good eye contact with me. Appropriate. No flight of ideas. General Appearance: cooperative Resp normal respiratory effort and clear to auscultation bilaterally Resp Narrative: No cough Effort and Inspection: Negative for tachypneic Cardio regular rate, regular rhythm, no murmurs and no gallops GI normal to inspection, nondistended, normoactive bowel sounds, soft to palpation and non-tender Extremity no calf tenderness General Extremity: Negative for edema Skin Rashes: no rashes Assessment & Plan Assessment/Plan (1) Debility: (2) Stroke: QUALIFIERS: CVA mechanism: unspecified Qualified Code(s): I63.9 -Cerebral infarction, unspecified (3) Acute left-sided weakness: (4) Hypertension: QUALIFIERS: Hypertension type: unspecified Qualified Code(s): I10- Essential (primary) hypertension (5) Vaping nicotine dependence, non-tobacco product: (6) Acquired polycythemia: (7) ADHD: QUALIFIERS: Attention deficit-hyperactivity disorder type: unspecified Qualified Code(s): F90.9 - Attention-deficit hyperactivity disorder,unspecified type (8) Migraine headache: QUALIFIERS: Migraine type: unspecified Status migrainosus presence: without status migrainosus Intractability: not intractable QualifiedCode(s): G43.909 - Migraine, unspecified, not intractable, without status migrainosus (9) Anxiety: (10) V-tach: (11) Central neuropathic pain: (12) 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 (CVA): PLAN: Plan 1. Continue therapy 2. Decrease lisinopril to 10 mg daily in the a.m. and continue to monitor frequent blood pressures. Charges/Coding Visit Charges Inpatient E&M: 52281 Subs Hosp L1 11/26/24 1553 <Electronically signed by Netta Domingo DO> Netta Domingo DO Cosigner Signature (if applicable): CC: ~ Signed [facility] Work Phone: 1(145) 545-875608-26-2025 Progress note Author Netta [facility] [place] Note Date/Time November 26, 2024 9: 42am [facility] Medical Records Department [address] [place] [address] Progress Note 11/25/24 0953 MR#: [id number] Acct: [id number] Name: ELIN OSHEA Rep #:[id number] : 1985 39 From: Netta Domingo DO PCP: Care Physician,No Primary Status :ADM IN Location: [place] [address] Subjective Subjective Afebrile VSS -blood pressure over the past 48 hours has ranged from 108/67 to 137/79. Heart rate is within normal limits. Maintaining appropriate oxygen saturation on RA Oral intake - FOOD good FLUIDS good Discussed with nursing - no problems that need addressed Reviewed the THERAPY notes Medication list reviewed. All lab drawn this morning was personally reviewed. CBC is unremarkable. Hemoglobin is stable at 12.8 and the hematocrit is 39.4. Negative ROS today. sleeping well, eating well, calm, cooperative, more focusedand able to follow instructions. Objective Data Objective Data Vital Signs: Vital Signs Temp Pulse Resp BP Pulse Ox O2 Del Method 97.8 F 65 17 109/71 99 Room Air 11/25/24 05:32 11/25/24 05:32 11/25/24 05:32 11/25/24 05:32 11/25/24 05:32 11/25/24 05:32 Oxygen Delivery Method Room Air Weight: 170 lb Body Mass Index (BMI) 29.0 Intake & Output: Intake and Output for Last 24 Hours 11/23/24 11/24/24 11/25/24 23:59 23:59 23:59 Intake Total 940 / 1180 2300 / 2300 200 / 200 Output Total 1450 / 1700 1300 / 1300 300 / 300 Balance -510 / -520 1000 / 1000 -100 / -100 Lab / Micro Data 11/25/24 06:32 11/23/24 06:14 Labs: Laboratory Results - last 24 hr 11/25/24 06:32: WBC 11.0, RBC 4.21, Hgb 12.8, Hct 39.4, MCV 93.6, MCH 30.4, MCHC32.5, RDW Std Deviation 42.5, RDW Coeff of Maria Teresa 12.4, Plt Count 329, MPV 10.2 Physical Exam Const alert and no apparent distress General Appearance: cooperative Resp normal respiratory effort and clear to auscultation bilaterally Cardio regular rate and regular rhythm Cardio Narrative: No ectopy GI normal to inspection, nondistended, normoactive bowel sounds, soft to palpation and non-tender Extremity no calf tenderness Assessment & Plan Assessment/Plan (1) Debility: (2) Stroke: QUALIFIERS: CVA mechanism: unspecified Qualified Code(s): I63.9 -Cerebral infarction, unspecified (3) Acute left-sided weakness: (4) Hypertension: QUALIFIERS: Hypertension type: unspecified Qualified Code(s): I10- Essential (primary) hypertension (5) Vaping nicotine dependence, non-tobacco product: (6) Acquired polycythemia: (7) ADHD: QUALIFIERS: Attention deficit-hyperactivity disorder type: unspecified Qualified Code(s): F90.9 - Attention-deficit hyperactivity disorder,unspecified type (8) Migraine headache: QUALIFIERS: Migraine type: unspecified Status migrainosus presence: without status migrainosus Intractability: not intractable QualifiedCode(s): G43.909 - Migraine, unspecified, not intractable, without status migrainosus (9) Anxiety: (10) V-tach: (11) Central neuropathic pain: (12) 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 (CVA): PLAN: Plan 1. Continue therapy 2. No changes to the drug regimen today Charges/Coding Visit Charges Inpatient E&M: 83705 Subs Hosp L1 11/26/24 0942 <Electronically signed by Netta Domingo DO> Netta Domingo DO Cosigner Signature (if applicable): CC: ~ Signed [facility] Work Phone: 1(412) 604-481908-22-2025 Progress note Author Netta [facility] Note Date/Time November 22, 2024 11 :50am [facility] Medical Records Department [address] [place] [address] Progress Note 11/22/24 1143 MR#: [id number] Acct: [id number] Name: ELIN OSHEA Rep #:[id number] : 1985 39 From: Netta Domingo DO PCP: Care Physician,No Primary Status :ADM IN Location: [place] [address] Progress Note Blood pressure past 24 hours has ranged from 125/76 to 127/84. Heart rate is within normal limits. Maintaining appropriate oxygen saturation on room air Making excellent progress with therapy Good appetite Good fluid intake Denies cephalgia Denies neck pain Denies palpitations, chest pain, shortness of breath. Aware that she feels muchcalmer and better able to focus. Alert, calm, no apparent distress Heart-regular rate and rhythm Lungs-clear to auscultation No calf tenderness No ankle edema Assessment & Plan Assessment/Plan (1) Debility: (2) Stroke: QUALIFIERS: CVA mechanism: unspecified Qualified Code(s): I63.9 -Cerebral infarction, unspecified (3) Acute left-sided weakness: (4) Hypertension: QUALIFIERS: Hypertension type: unspecified Qualified Code(s): I10- Essential (primary) hypertension (5) Vaping nicotine dependence, non-tobacco product: (6) Acquired polycythemia: (7) ADHD: QUALIFIERS: Attention deficit-hyperactivity disorder type: unspecified Qualified Code(s): F90.9 - Attention-deficit hyperactivity disorder, unspecified type (8) Migraine headache: QUALIFIERS: Migraine type: unspecified Status migrainosus presence: without status migrainosus Intractability: not intractable Qualified Code(s): G43.909 - Migraine, unspecified, not intractable, without status migrainosus (9) Anxiety: (10) V-tach: (11) Central neuropathic pain: (12) 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 (CVA): PLAN: Plan 1. Continue therapy 2. Increase lisinopril to 15 mg twice daily and continue to monitor blood pressure closely. The goal is less than 130/80. 3. CBC and BMP on Monday Visit Charges Inpatient E&M: 86978 Subs Hosp L1 11/22/24 1150 <Electronically signed by Netta Domingo DO> Netta Domingo DO Cosigner Signature (if applicable): CC: ~ Signed [facility] Work Phone: 1(318) 533-454508-21-2025 Progress note Author Netta Domingo [facility] Note Date/Time November 21, 2024 3: 34pm [facility] Medical Records Department [address] [place] [address] Progress Note 11/21/24 1452 MR#: [id number] Acct: [id number] Name: ELIN OSHEA Rep #:[id number] : 1985 39 From: Netta Domingo DO PCP: Care Physician,No Primary Status :ADM IN Location: [place] [address] Subjective Subjective Eiln was seen on TEAM rounds today. Her mother and grandmother were present in the room and he Aunt Gloria participated by phone. All questions were answered. Afebrile VSS -blood pressure for the past 24 hours has ranged from 107/64 to 131/95. HR is WNL. Most of the time the BP is less than 135/80. Maintaining appropriate oxygen saturation on RA Oral intake - FOOD good FLUIDS Fluid intake has been good but, the nursing documentation for fluid intake yesterday was not accurate. Discussed with nursing - no problems that need addressed. She is sleeping well at night. She had another fall yesterday. No injuries. she was reminded that she is stand pivot only with nursing assist and she is only to ambulate with therapy. Reviewed the THERAPY notes - has been very good improvement with therapy. She is ambulating with a SC now and the LLE is non longer being wrapped into dorsiflexion. Medication list reviewed. She c/o dysuria to nursing one time last night but, she denies to me today. Shefeels she is doing well and she is very happy at "feeling more in control". Nathan longer is complaining of cephalgia or neck pain. She denies chest pain, palpitations, shortness of breath, cough, nausea/vomiting/abdominal pain and calf pain. She is sleeping well at night. She feels her anxiety is much bettercontrolled. SW made an appt for her to follow up at [facility]. They have a psychiatrist working with them if she needs to be seen. Objective Data Objective Data Vital Signs: Vital Signs Temp Pulse Resp BP Pulse Ox O2 Del Method 96.9 F L 67 18 124/80 H 98 Room Air 11/21/24 05:40 11/21/24 10:46 11/21/24 10:46 11/21/24 10:46 11/21/24 10:46 11/21/24 10:46 Oxygen Delivery Method Room Air Weight: 169 lb 2.924 oz Body Mass Index (BMI) 29.0 Intake & Output: Intake and Output for Last 24 Hours 11/19/24 11/20/24 11/21/24 23:59 23:59 23:59 Intake Total 1480 / 1480 250 / 250 720 / 720 Output Total 800 / 1050 550 / 550 400 / 400 Balance 680 / 430 -300 / -300 320 / 320 Lab / Micro Data 11/18/24 06:00 11/18/24 06:00 Physical Exam Const alert and no apparent distress General Appearance: cooperative Resp normal respiratory effort and clear to auscultation bilaterally Cardio regular rate and regular rhythm Cardio Narrative: No ectopy GI normal to inspection, nondistended, normoactive bowel sounds, soft to palpation and non-tender Extremity no calf tenderness Assessment & Plan Assessment/Plan (1) Debility: (2) Stroke: QUALIFIERS: CVA mechanism: unspecified Qualified Code(s): I63.9 -Cerebral infarction, unspecified (3) Acute left-sided weakness: (4) Hypertension: QUALIFIERS: Hypertension type: unspecified Qualified Code(s): I10- Essential (primary) hypertension (5) Vaping nicotine dependence, non-tobacco product: (6) Acquired polycythemia: (7) ADHD: QUALIFIERS: Attention deficit-hyperactivity disorder type: unspecified Qualified Code(s): F90.9 - Attention-deficit hyperactivity disorder,unspecified type (8) Migraine headache: QUALIFIERS: Migraine type: unspecified Status migrainosus presence: without status migrainosus Intractability: not intractable QualifiedCode(s): G43.909 - Migraine, unspecified, not intractable, without status migrainosus (9) Anxiety: (10) V-tach: (11) Central neuropathic pain: (12) 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 (CVA): PLAN: Plan 1. Continue therapy 2. No changes to the drug regimen today. 3. Will continue to monitor blood pressure closely......... if she has more than occasional blood pressure greater than goal we will need to adjust medications. Current antihypertensives include lisinopril 10 mg twice daily andpropranolol 40 mg twice daily. 4. She will follow-up with [facility] and with Torri Zapata for PCP. Will also need to follow up with Dr. Ge for neurology and with Dr. Del Angel forpolycythemia. 5. No changes to the drug regimen today. 6. Recehck a CBC on Monday. Charges/Coding Visit Charges Inpatient E&M: 77160 Subs Hosp L2 11/21/24 1539 <Electronically signed by Netta Domingo DO> Netta Domingo DO Cosigner Signature (if applicable): CC: ~ Signed [facility] Work Phone: 1(161) 984-514608-20-2025 Progress [facility] Note Date/Time November 20, 2024 11 :04am [facility] Medical Records Department [address] [place] [address] Progress Note 11/19/24818 MR#: [id number] Acct: [id number] Name: ELIN OSHEA Rep #:[id number] : 1985 39 From: Netta Domingo DO PCP: Care Physician,No Primary Status :ADM IN Location: [place] [address] Subjective Subjective Afebrile VSS -blood pressure over the past 24 hours has ranged from 101/62 to 133/88. Maintaining appropriate oxygen saturation on RA Oral intake - FOOD good FLUIDS good Having regular bowel movements. Discussed with nursing - Had some family drama last night. Apparently her son said he was going to kill himself and he was sent to the Ed to be evaluated. The ED SW came up and talked with the patient and they discussed plan for safety. She slept well after she spoke with the SW. She was surprised that she could go to sleep after the SW talked with her. Normally she would be awakeand upset. She recognizes that she is better able to focus. she is making great progress with therapy. Reviewed the THERAPY notes Medication list reviewed. Will start Wellbutrin XL 300 mg daily today. Agustina denies cephalgia, neck pain, lightheadedness, chest pain, shortness of breath, cough, nausea/vomiting/abdominal pain and calf pain. Objective Data Objective Data Vital Signs: Vital Signs Temp Pulse Resp BP Pulse Ox O2 Del Method 97.5 F L 67 16 101/62 93 Room Air 11/19/24 04:26 11/19/24 04:26 11/19/24 04:26 11/19/24 04:26 11/19/24 04:26 11/19/24 04:26 Oxygen Delivery Method Room Air Weight: 169 lb 2.924 oz Body Mass Index (BMI) 29.0 Intake & Output: Intake and Output for Last 24 Hours 11/17/24 11/18/24 11/19/24 23:59 23:59 23:59 Intake Total 1465 / 1465 1260 / 1260 240 / 240 Output Total 1300 / 1300 2150 / 2150 300 / 300 Balance 165 / 165 -890 / -890 -60 / -60 Lab / Micro Data 11/18/24 06:00 11/18/24 06:00 Physical Exam Const alert, oriented x3 and no apparent distress General Appearance: cooperative Resp normal respiratory effort and clear to auscultation bilaterally Cardio regular rate and regular rhythm Cardio Narrative: No ectopy GI normal to inspection, nondistended, normoactive bowel sounds, soft to palpation and non-tender Extremity no calf tenderness Assessment & Plan Assessment/Plan (1) Debility: (2) Stroke: QUALIFIERS: CVA mechanism: unspecified Qualified Code(s): I63.9 -Cerebral infarction, unspecified (3) Acute left-sided weakness: (4) Hypertension: QUALIFIERS: Hypertension type: unspecified Qualified Code(s): I10- Essential (primary) hypertension (5) Vaping nicotine dependence, non-tobacco product: (6) Acquired polycythemia: (7) ADHD: QUALIFIERS: Attention deficit-hyperactivity disorder type: unspecified Qualified Code(s): F90.9 - Attention-deficit hyperactivity disorder,unspecified type (8) Migraine headache: QUALIFIERS: Migraine type: unspecified Status migrainosus presence: without status migrainosus Intractability: not intractable QualifiedCode(s): G43.909 - Migraine, unspecified, not intractable, without status migrainosus (9) Anxiety: (10) V-tach: (11) Central neuropathic pain: (12) 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 (CVA): PLAN: Plan 1. Continue therapy 2. Increase lisinopril to 10 mg p.o. twice daily. No other changes to the drugregimen today. Charges/Coding Visit Charges Inpatient E&M: 86604 Subs Hosp L1 11/20/24 1104 <Electronically signed by Netta Domingo DO> Netta Domingo DO Cosigner Signature (if applicable): CC: ~ Signed [facility] Work Phone: 1(930) 353-763908-18-2025 Progress note Author [facility] Note Date/Time November 18, 2024 4: 26pm [facility] Medical Records Department [address] [place] [address] Progress Note 11/18/24 1013 MR#: [id number] Acct: [id number] Name: ELIN OSHEA Rep #:[id number] : 1985 39 From: Netta Domingo DO PCP: Care Physician,No Primary Status :ADM IN Location: [place] [address] Subjective Subjective Afebrile VSS -blood pressure over the past 48 hours has ranged from 135/80 - 155/92. Heart rate is within normal limits. Lisinopril dose was increased yesterday back to 10 mg daily. Maintaining appropriate oxygen saturation on RA Oral intake - FOOD good FLUIDS good Discussed with nursing - no problems that need addressed Reviewed the THERAPY notes - I discuss the attention with ST and the ST feels she is better able to focus and attend to what she is working on. She is less impulsive. Medication list reviewed. BuSpar was increased to 10 mg twice daily and 5 mg atbedtime yesterday for anxiety. She is still feeling somewhat anxious at times but better than at admission. Elin tells me she is sleeping well at night. She denies headache. Neck pain is much better with the trigger point injections and use of tizanidine at bedtime. She has been very cooperative. Seems a little more focused. Denies N/V/abd pain/abd cramping/constipation. Tolerating Wellbutrin 150 mg daily withno adverse side effects. She denies chest pain, shortness of breath, palpitations, vertigo, lightheadedness, nausea/vomiting/abdominal pain, dysuria and calf pain. All lab from this morning was personally reviewed. White blood cell count is normal. Hemoglobin is 12.7 and stable. Platelets are within normal limits. Sodium is normal at 138 and the potassium is 4.1. The BUN is 13 with a stable creatinine of 0.63. LFTs are unremarkable. The AST is normal today at 32, downfrom 60 at admission. The ALT is still mildly elevated at 65 but this is down from 98 at admission. Bilirubin and alk phos are within normal limits. Triglycerides are 179 and the LDL is 59 with an HDL of 49. Objective Data Objective Data Vital Signs: Vital Signs Temp Pulse Resp BP Pulse Ox O2 Del Method 98.2 F 73 17 135/80 H 100 Room Air 11/18/24 05:11 11/18/24 09:11 11/18/24 05:11 11/18/24 09:11 11/18/24 05:11 11/18/24 05:11 Oxygen Delivery Method Room Air Weight: 169 lb 2.924 oz Body Mass Index (BMI) 29.0 Intake & Output: Intake and Output for Last 24 Hours 11/16/24 11/17/24 11/18/24 23:59 23:59 23:59 Intake Total 2125 / 2125 1465 / 1465 Output Total 2075 / 2075 1300 / 1300 600 / 600 Balance 50 / 50 165 / 165 -600 / -600 Lab / Micro Data 11/18/24 06:00 11/18/24 06:00 Labs: Laboratory Results - last 24 hr 11/18/24 06:00: WBC 9.9, RBC 4.11 L, Hgb 12.7, Hct 37.2, MCV 90.5, MCH 30.9, MCHC 34.1, RDW Std Deviation 39.4, RDW Coeff of Maria Teresa 12.1, Plt Count 405, MPV 9.7, Immature Gran % (Auto) 0.900, Neut % (Auto) 62.3, Lymph % (Auto) 28.2, Johnson% (Auto) 6.4, Eos % (Auto) 1.9, Baso % (Auto) 0.3, Absolute Neuts (auto) 6.2, Absolute Lymphs (auto) 2.80, Nucleated RBC % 0, Sodium 138, Potassium 4.1, Chloride 104, Carbon Dioxide 24.0, Anion Gap 10, BUN 13, Creatinine 0.63 L, Estim Creat Clear Calc 117.83, Est GFR (MDRD) Non-Af 114, BUN/Creatinine Ratio 20.2 H, Glucose 102 H, Calcium 9.0, Total Bilirubin 0.24, AST 32, ALT 65 H, Alkaline Phosphatase 68, Total Protein 6.1, Albumin 3.8, Globulin 2.4, Albumin/Globulin Ratio 1.6, Triglycerides 179, Cholesterol 143, LDL Cholesterol,Calc 59, VLDL Cholesterol 36, HDL Cholesterol 49, Cholesterol/HDL Ratio 2.94 Physical Exam Const Constitutional Narrative: I observed her ambulating in the mota with FWW and she is advancing the Left foot with no assistance and her pace is much improved. She is more aware of theLLE and it is not swinging out laterally nearly as much. She is calmer and flight of ideas and fidgeting are less. General Appearance: cooperative Eyes PERRL and EOMs intact bilaterally Eyes Narrative: Conjunctiva is clear. No discharge from the eyes and no mattering of the eyelashes. Neck supple Neck Narrative: She is telling me that the spasms in the Trapezius ridges are much better than her normal. General: trachea midline Resp normal respiratory effort and clear to auscultation bilaterally Cardio regular rate, regular rhythm, no murmurs, no rub and no gallops Cardio Narrative: No ectopy GI normal to inspection, nondistended, normoactive bowel sounds, soft to palpation and non-tender GI Narrative: No guarding with palpation. Last bowel movement was today.....also had a BM yesterday and day Extremity no calf tenderness General Extremity: Negative for edema Skin General Skin Exam: no breakdown Rashes: no rashes Assessment & Plan Assessment/Plan (1) Debility: (2) Stroke: QUALIFIERS: CVA mechanism: unspecified Qualified Code(s): I63.9 -Cerebral infarction, unspecified (3) Acute left-sided weakness: (4) Hypertension: QUALIFIERS: Hypertension type: unspecified Qualified Code(s): I10- Essential (primary) hypertension (5) Vaping nicotine dependence, non-tobacco product: (6) Acquired polycythemia: (7) ADHD: QUALIFIERS: Attention deficit-hyperactivity disorder type: unspecified Qualified Code(s): F90.9 - Attention-deficit hyperactivity disorder,unspecified type (8) Amphetamine use: (9) Migraine headache: QUALIFIERS: Migraine type: unspecified Status migrainosus presence: without status migrainosus Intractability: not intractable QualifiedCode(s): G43.909 - Migraine, unspecified, not intractable, without status migrainosus (10) Anxiety: (11) Abnormal LFTs: (12) V-tach: (13) Central neuropathic pain: (14) Insomnia: QUALIFIERS: Insomnia type: unspecified Qualified Code(s): G47.00 - Insomnia, unspecified (15) 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 (CVA): (16) Neck pain on right side: PLAN: Plan 1. Continue therapy 2. Increase Wellbutrin XL to 300 milligrams daily in the a.m. Continue Cymbalta. Continue Buspar for anxiety. Multiple psychoactive drugs being used to control ADHD and treat anxiety and depression which predated the stroke. Sheis making good improvement. 3. Continue to monitor the blood pressure closely with a goal of less than 135/80. If it remains above goal will increase the Lisinopril......No cough. 4. Continue high intensity statin. LFTs are actually improving. Charges/Coding Visit Charges Inpatient E&M: 84934 Subs Hosp L1 11/18/24 1626 <Electronically signed by Netta Domingo DO> Netta Domingo DO Cosigner Signature (if applicable): CC: ~ Signed [facility] Work Phone: 1(251) 634-223408-14-2025 Progress note Author Netta Domingo [facility] Note Date/Time November 14, 2024 4: 39pm [facility] Medical Records Department [address] [place] [address] Progress Note 11/14/24 1548 MR#: [id number] Acct: [id number] Name: ELIN OSHEA Rep #:[id number] : 1985 39 From: Netta Domingo PCP: Care Physician,No Primary Status :ADM IN Location: [place] [address] Subjective Subjective Elin was seen on team rounds today. Her aunt, Gloria, participated by phone. Mother showed up late after rounds were completed. Afebrile The blood pressure over the past 24 hours has ranged from 107/72 to 140/95. Heart rate is within normal limits. Maintaining appropriate oxygen saturation on room air Good appetite and intake. Good fluid intake. She is not complaining of pain to me or PT but, if you ask her about pain she complains and it is very severe. Does not appear to be in any significant distress. Has not c/o a PLAZA. The Tizanidine seems to help with c/o neck pain. She had a dose last night close to MN and she took a dose before lunch today. But, she says it makes her sleepy and she does not want to take it. She is tearful at times. She tells me that she is not sleeping well at night but, she does not want to take Tizanidine because it makes her sleepy. Gloria mentioned that Elin is very worried about the ADD and being off amphetamines. This contributed to the strokes she has and she can no longer take this medication orTriptans or Nurtac due to the cerebrovascular disease. Strattera is also contraindicated with Strokes, CP, CV disease. We are left with treating with Wellbutrin. She has not c/o CP, SOB, N/V/abd pain, dysuria. She tells me that she is taking Erythromycin eye drops and prednisolone ophthalmic because [facility] and she had hundreds of cuts in her eyesand they were dry an red? She apparently applies artificial eyelashes......she wanted the nurse to help her with this today. She can not recall the name of the eye doctor she saw. She has a very difficult time maintaining focus. Objective Data Objective Data Vital Signs: Vital Signs Temp Pulse Resp BP Pulse Ox O2 Del Method 98.5 F 78 16 107/72 97 Room Air 11/14/24 06:00 11/14/24 06:00 11/14/24 06:00 11/14/24 06:00 11/14/24 06:00 11/14/24 06:00 Oxygen Delivery Method Room Air Weight: 167 lb 8.821 oz Body Mass Index (BMI) 28.8 Intake & Output: Intake and Output for Last 24 Hours 11/12/24 11/13/24 11/14/24 23:59 23:59 23:59 Intake Total 1660 / 1660 1340 / 1340 1030 / 1030 Output Total 1300 / 1300 1525 / 1525 750 / 750 Balance 360 / 360 -185 / -185 280 / 280 Lab / Micro Data 11/11/24 05:30 11/11/24 05:30 Physical Exam Const Constitutional Narrative: Awake, does not appear to be in any distress. she does better lezama she has distractions......the complaints decrease and she is better able to focus when she is working with therapy. Eyes PERRL and EOMs intact bilaterally Eyes Narrative: NO conjunctival injection and no DC from the eyes. There is no mattering of theeyelashes. She is tearful at times when we are talking. Emotionally labile. Neck supple, thyroid normal and No nodes Neck Narrative: She has full ROM in the cervical spine. General: trachea midline Resp clear to auscultation bilaterally Resp Narrative: No conversational dyspnea. Effort and Inspection: Negative for tachypneic Cardio regular rate, regular rhythm, no murmurs, no rub and no gallops Cardio Narrative: No ectopy GI normal to inspection, nondistended, normoactive bowel sounds, soft to palpation and non-tender GI Narrative: Having BM's. No guarding with palpation. Neuro Neuro Narrative: Still with L side neglect. She is able to advance her Left leg when walking nowbut, she has no control over where it is going and she is not paying attention to what it is doing. Assessment & Plan Assessment/Plan (1) Debility: (2) Stroke: QUALIFIERS: CVA mechanism: unspecified Qualified Code(s): I63.9 -Cerebral infarction, unspecified (3) Acute left-sided weakness: (4) Hypertension: QUALIFIERS: Hypertension type: unspecified Qualified Code(s): I10- Essential (primary) hypertension (5) Vaping nicotine dependence, non-tobacco product: (6) Acquired polycythemia: (7) ADHD: QUALIFIERS: Attention deficit-hyperactivity disorder type: unspecified Qualified Code(s): F90.9 - Attention-deficit hyperactivity disorder,unspecified type (8) Amphetamine use: (9) Migraine headache: QUALIFIERS: Migraine type: unspecified Status migrainosus presence: without status migrainosus Intractability: not intractable QualifiedCode(s): G43.909 - Migraine, unspecified, not intractable, without status migrainosus (10) Anxiety: (11) Abnormal LFTs: (12) V-tach: (13) Central neuropathic pain: (14) Insomnia: QUALIFIERS: Insomnia type: unspecified Qualified Code(s): G47.00 - Insomnia, unspecified (15) 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 (CVA): (16) Neck pain on right side: PLAN: Plan 1. Continue therapy 2. Discontinue prednisolone and erythromycin ophthalmic preparations 3. Obtain records from [facility] regarding what she is being treated for. 4. No eye make-up and no fake eyelashes. The eyes are normal in appearance, she has no visual field cuts, there is no conjunctival irritation or injection, there is no discharge from the eyes and there is no mattering of the eyelashes. 5. DC PRN Tizanidine and schedule a dose of 4 mg Tizanidine at HS. 6. Recheck labs on Monday. 7. Increase Buspar to 5 mg TID. 8. We had a talk about polypharmacy and drug interactions. Charges/Coding Visit Charges Inpatient E&M: 26900 Subs Hosp L2 11/14/24 6339 <Electronically signed by Netta Domingo DO> Netta Domingo DO Cosigner Signature (if applicable): CC: ~ Signed [facility] Work Phone: 1(414) 209-171208-12-2025 Progress note Author Netta Domingo [facility] Note Date/Time November 12, 2024 5: 42pm [facility] Medical Records Department [address] [place] [id number] Progress Note 11/12/24 5829 MR#: [id number] Acct: [id number] Name: ELIN OSHEA Bao Rep #:[id number] : 1985 39 From: Netta Domingo DO PCP: Care Physician,No Primary Status :ADM IN [id number] Progress Note Pt was reaching for her bedside table and slid out of bed. [facility] responded to the alarm. she denies hitting her head and denies any injuries. she has no bone deformities and she is alert and oriented. No lacerations or abrasions. No hematomas. She was assisted back to bed. Procedure note: Procedure - trigger point injects in the R paracervical muscles. Medication: Decadron 10 mg and bupivacaine 0.5% solution, 2 mL The area was anesthetized with EMLA cream and an occlusive dressing. After 5 minutes the area was cleansed with betadine. A line of injections were done starting at the insertion of the trapezius onto the occiput and ending at the base of the neck along the cervical paravertebral muscles. She tolerated the procedure well. I re-examoined after 10 minutes and the paqinwas nearly completely gone. 11/12/24 1742 <Electronically signed by Netta Domingo DO> Netta Jennifer Domingo DO Cosigner Signature (if applicable): CC: ~ Signed [facility] Work Phone: 1(414) 730-781108-12-2025 Progress note Author [facility]ta [facility] Note Date/Time November 12, 2024 5: 08pm [facility] Medical Records Department [address] [place] [address] Progress Note 11/12/24 1545 MR#: [id number] Acct: [id number] Name: ELIN OSHEA Rep #:[id number] : 1985 39 From: Netta Domingo DO PCP: Care Physician,No Primary Status :ADM IN [id number] Subjective Subjective Afebrile VSS -blood pressure over the past 24 hours has ranged from 124/74 to 147/93. Heart rate is within normal limits. Maintaining appropriate oxygen saturation on RA Oral intake - FOOD good FLUIDS good Discussed with nursing - Had "flushing" last night and blamed it on medication but, it sound to me like she had a panic attack. Nursing reports she slept well. Reviewed the THERAPY notes Medication list reviewed. She is less confrontational today and is more realistic. No longer thinks she is going to be able to go hoe Monday and back to work. Very open to get psychotherapy. Admits to me she is anxious and depressed and overwhelmed and having panic attacks. Realizes that she can no longer vape, drink alcohol, smoke pot or take amphetamines and triptans. She is making good eye contact with me today and she is tearful at times. She is being much more open and lessclosed off. She wants help. She is very motivated to get better and back to work. We discussed her PLAZA's and what we can try to avoid using triptans and Nurtec. These medications did not consistently help her........what seems to help most is sleep. She has chronic insomnia. The migraines seem to always start at the base of the occiput on the R and she tells me that she never has a PLAZA on the Left side of the head. More talkative and saying thank you today. Wants help but, she has a hard time trusting. Joslyn denies chest pain, shortness of breath, palpitations, nausea/vomiting/abdominal pain, dysuria and calf tenderness. She does have right-sided cephalgia and pain in the right side of her neck posteriorly. Objective Data Objective Data Vital Signs: Vital Signs Temp Pulse Resp BP Pulse Ox O2 Del Method 97.6 F L 89 16 147/93 H 99 Room Air 11/12/24 06:00 11/12/24 10:33 11/12/24 06:00 11/12/24 10:33 11/12/24 06:00 11/12/24 09:43 Oxygen Delivery Method Room Air Weight: 167 lb 8.821 oz Body Mass Index (BMI) 28.8 Intake & Output: Intake and Output for Last 24 Hours 11/10/24 11/11/24 11/12/24 23:59 23:59 23:59 Intake Total 1610 / 1610 600 / 600 Output Total 500 / 800 2375 / 2375 350 / 350 Balance -500 / -350 -765 / -765 250 / 250 Lab / Micro Data 11/11/24 05:30 11/11/24 05:30 Physical Exam Const alert and oriented x3 Constitutional Narrative: she is pleasant and asking appropriate questions. More talkative today and seems more relaxed. She is cooperating with therapy and more trusting of what we are trying to help her with. General Appearance: cooperative Eyes PERRL and EOMs intact bilaterally Neck Neck Narrative: She has pain in the R posterior neck along the cervical vertebral muscles. The pain is worst at the insertion of the R trapezius muscle into the occiput........has localized spasm of the muscle at this point. No nuchal rigidity and she has good ROM in the cervical spine. No cervical adenopathy. Resp clear to auscultation bilaterally Resp Narrative: No conversational dyspnea. Effort and Inspection: Negative for tachypneic or respiratory distress Cardio regular rate, regular rhythm, no murmurs, no rub and no gallops Cardio Narrative: No ectopy GI normal to inspection, nondistended, normoactive bowel sounds, soft to palpation and non-tender GI Narrative: No guarding with palpation. Extremity no calf tenderness Extremity Narrative: Some edema of the left hand and the left ankle due to immobility/hemiplegia General Extremity: edema Skin Rashes: no rashes Assessment & Plan Assessment/Plan (1) Debility: (2) Stroke: QUALIFIERS: CVA mechanism: unspecified Qualified Code(s): I63.9 -Cerebral infarction, unspecified (3) Acute left-sided weakness: (4) Hypertension: QUALIFIERS: Hypertension type: unspecified Qualified Code(s): I10- Essential (primary) hypertension (5) Vaping nicotine dependence, non-tobacco product: (6) Acquired polycythemia: (7) ADHD: QUALIFIERS: Attention deficit-hyperactivity disorder type: unspecified Qualified Code(s): F90.9 - Attention-deficit hyperactivity disorder,unspecified type (8) Amphetamine use: (9) Migraine headache: QUALIFIERS: Migraine type: unspecified Status migrainosus presence: without status migrainosus Intractability: not intractable QualifiedCode(s): G43.909 - Migraine, unspecified, not intractable, without status migrainosus (10) Anxiety: (11) Abnormal LFTs: (12) V-tach: PLAN: Non-sustained. Was on Amphetamine at the time. (13) Central neuropathic pain: (14) Insomnia: QUALIFIERS: Insomnia type: unspecified Qualified Code(s): G47.00 - Insomnia, unspecified PLAN: chronic........may be due to anxiety and amphetamines......using ETOH and marijuana to self-medicate. (15) 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 (CVA): PLAN: this predated the stroke (16) Neck pain on right side: PLAN: Plan 1. Continue therapy 2. Change the Wellbutrin, being utilized for ADHD, to 0700 and 1500. 3. Continue the Gabapentin.......she denies Left buttock and Left leg pain today and also denies pain in the R upper arm/shoulder. Slept well last night. 4. D/W SW plans on how to get her counselling at [place]. 5. Will get an appt with Dr. Ge when we have a DC date........Elin is agreeable to seeing Dr. Ge for management of CVA, migraines and ADD. 6. Continue Buspar for anxiety. 7. plan trigger point injections R cervical paravertebral muscles. D/W Dr. Escobar. He is currently out of town but, it the trigger point injections are not effective will consider botox. He will be back in town next Monday. Can also try Baclofen if tizanidine is not working. 8. Continue propranolol for nonsustained ventricular tachycardia, migraine and hypertension Charges/Coding Visit Charges Inpatient E&M: 99541 Subs Hosp L1 11/12/24 1708 <Electronically signed by Netta Domingo DO> Netta Domingo DO Cosigner Signature (if applicable): CC: ~ Signed [facility] Work Phone: 1(587) 756-909308-12-2025 History and physical note Author Netta Domingo [facility] Note Date/Time November 12, 2024 3: 45pm [facility] Medical Records Department [address] [place] [address] History & Physical Exam 11/11/24 0809 MR#: [id number] Acct: [id number] Name: ELIN OSHEA Bao Rep #:[id number] : 1985 39 From: Netta Domingo DO PCP: Care Physician,No Primary Status :ADM IN Location: [place] PL456-3 HPI - General General Date of Admission: 11/10/24 Date of Service: 11/11/24 HPI Narrative ELIN OSHEA, is a 39 F with a PMH of ADD, HTN, migraines, seasonal allergies and cannabis use who was admitted to [facility] on 10/30/24 with ischemic CVA. MRI showed a large area of restricted diffusion in the right frontal and superior parietal precentral cortex and superior periventricular region measuring 9 cm x 3 cm x 4.6 cm with associated increased T2 signal and decreasedT1 signal components. There was also a 0.6 cm focus of restricted diffusion in the left superior precentral cortex which appeared acute and an old 0.8 cm lacunar infarct in the deep white matter on the left. She was taking amphetamine/dextroamphetamine 30 mg twice daily for ADD. She was transferred tothe acute inpt rehab unit at [facility] for rehabilitation. On 11/04/24 she c/o CP and there were EKG changes. She was transferred to the acute and was seen by Cardiology. Cardiac cath was performed and showed normal coronary arteries withnormal left ventricular size, wall motion and systolic function. She was polycythemic and was seen by Heme/onc. JAK2 V617F was negative. CT scan of the abd and pelvis with contrast was unremarkable showing no hepatic or renal tumors. Erythropoietin level was unremarkable at 2.1. Phlebotomy was suggestedto keep HCT at 45 or less. She underwent phlebotomy X 2 and the HCT on 11/08/24 was 39.2. She was transferred back to inpt rehab for 3 hours of therapy daily on 11/10/24 to restore function/independence. She tells me that she sees a NEWSP[employer]ER CARRIERS SUPERVISOR ([facility] [place] They are the ones prescribing the amphetamine. She also was getting a triptan to use at onset of a migraine.......she tool 2 onthe day she had a stroke. She tells me that the triptans do not help. The PLAZA'sare always on the R side of the head and she has pain at the base of the neck onthe R. She has never had Botox. She has had a RX for Metoprolol in the past that she got at a hospital that she was instructed to take PRN for elevated BP? She has a IUD that was supposed to be removed a year ago and she never had it done. She is complaining of pain in the Left axilla and Left upper rib area and is also c/o pain in the left buttock and left hamstring. The pain in the left buttock/hamstring is precipitated by rolling on the therapy quan. She tells me that she has had it in the past but, not often. She admits to being anxious. She tells me that prior to starting the amphetamineshe was more anxious but, the medication helped her to focus at work and her anxiety level went down. [facility] Medical History (Updated 11/12/24 @ 15:[address] Netta Domingo DO) Anxiety Insomnia Amphetamine use Polycythemia HTN (hypertension) ADHD Migraine Home Medications ?Medication ?Instructions ?Recorded ?Last Taken ?Type loratadine 10 mg tablet (Claritin) 10 mg PO DAILY PRN PRN Allergies 01/25/18 Unknown History dexamethasone sodium phosphate 0.1 1 drp ophthalmic (e ye) 4X/DAY eye 10/30/24 Unknown History % eye drops inflamattion erythromycin 5 mg/gram (0.5 %) eye 1 applic ophthalmic (eye) QHS eye 10/30/24 10/31/24 History ointment aspirin 81 mg chewable tablet 81 mg PO DAILYCM heart h ealth #0 11/01/24 11/01/24 Rx tabs atorvastatin 80 mg tablet 80 mg PO QHS cholesterol #0 tabs 11/01/24 10/31/24 Rx lisinopril 10 mg tablet 10 mg PO DAILY blood pressur e #0 11/01/24 11/01/24 Rx tabs metoprolol tartrate 50 mg tablet 50 mg PO BID bp #0 ta bs 11/10/24 Unknown Rx tizanidine 2 mg capsule (Zanaflex) 2 mg PO Q8H PRN mus florencia relaxer 11/10/24 Unknown History Allergy/AdvReac Type Severity Reaction Status Date / Time naproxen Allergy Hives Verified 10/30/24 21:22 Family History Mother Hypertension Depression Anxiety PTSD (post-traumatic stress disorder) Surgical History History of section Social History (Updated 11/12/24 @ 15:[address] 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 Smoking Status: Current every day smoker tobacco type: e-cigarettes alcohol intake: current alcohol intake frequency: 0-2 drinks per day Alcohol type: wine substance use type: marijuana additional social history: She takes Prescribed amphetamines for ADHD ROS Constitutional Constitutional: Reports fatigue and weakness; Denies anorexia, change in weight,chills, fever(s) or night sweats Eyes Eyes: Denies blurry vision, diplopia, discharge from eye(s), eye pain or loss ofvision ENT HEENT: Reports headache(s); Denies abnormal hearing, dysphagia, facial pain, hearing loss, nasal congestion or sore throat Cardiovascular Cardiovascular: Reports chest pain and palpitations; Denies dyspnea on exertion,edema, lightheadedness, orthopnea, paroxysmal nocturnal dyspnea or syncope Respiratory/Chest Respiratory/Chest: Denies cough, dyspnea, shortness of breath at rest, shortnessof breath with exertion or wheezing Gastrointestinal Gastrointestinal: Denies abdominal pain, constipation, diarrhea, dyspepsia, hematemesis, hematochezia, nausea or vomiting Genitourinary Genitourinary: Denies dysuria, hematuria, nocturia, urinary frequency, urinary hesitancy, urinary incontinence or urinary urgency Musculoskeletal Musculoskeletal: Reports neck pain; Denies back pain, joint pain or joint swelling Integumentary Integumentary: Denies acne, alopecia, jaundice, rash or wounds Neurologic Neurologic: Reports disequilibrium, focal weakness, headache(s) and sensory deficit; Denies dizziness, paresthesias, seizures or tremor(s) Psychiatric Psychiatric: Reports anxiety, depression and panic attacks; Denies homicidal ideation or suicidal ideation Endocrine Endocrinology: Denies change in body appearance, polydipsia or polyuria Hematologic/Lymphatic Hematologic/Lymphatic: Denies easy bleeding, easy bruising or lymphadenopathy Allergic/Immunologic Allergic/Immunologic: Reports rhinitis; Denies eczemia or asthma Vital Signs Vital Signs Vital Signs: 11/10/24 14:45 11/10/24 15:12 08/10/25 16:00 Temperature 98.3 F Temperature Source Temporal Pulse Rate 86 68 Respiratory Rate 17 17 Respiratory Effort Normal Non-Labored Respiratory Depth Normal Respiratory Pattern Normal Blood Pressure 138/77 H Blood Pressure Mean 97 Blood Pressure Source Monitor Blood Pressure Position Semi-Fowlers Blood Pressure Location Right Arm Pulse Ox 97 97 Oxygen Delivery Method Room Air Room Air Room Air 11/10/24 17:49 11/10/24 21:54 11/11/24 06:00 Temperature 98.2 F 98.4 F Temperature Source Temporal Oral Pulse Rate 85 95 92 Respiratory Rate 16 18 Respiratory Effort Respiratory Depth Respiratory Pattern Blood Pressure 136/70 H 146/92 H 134/87 H Blood Pressure Mean 92 102 Blood Pressure Source Monitor Monitor Blood Pressure Position Semi-Fowlers Supine Blood Pressure Location Right Arm Right Arm Pulse Ox 97 96 Oxygen Delivery Method Room Air Room Air Weight Weight: 167 lb 8.821 oz Body Mass Index (BMI) 28.8 Indicators for Scoring Admitted with or Primary Diagnosis of CVA/Stroke: Yes Hx of CVA/Stroke: Yes Modified Quinn Score MRS Score at time of Evaluation: 4-Moderate/severe disability NIHSS NIHSS 1a. Level of Consciousness: 0 - Alert; keenly responsive 1b. LOC Questions: 0 - Answers BOTH questions correctly 1c. LOC Commands: 0 - Performs BOTH tasks correctly 2. Best Gaze: 0 - Normal 3. Visual: 0 - No visual loss 4. Facial Palsy: 1 - Minor paralysis (flattened nasolabial fold, asymmetry on smiling) (This has improved significantly since admission. Limited to less teeth visible on the left when smiling.) 5a. Left Arm: 1 - Drift; arm drifts downward but doesn?t hit the bed (she is left handed. Left hand software publisher is weaker than the R Very weak Left shoulder shrug) 5b. Right Arm: 0 - No drift; arm holds 90 (or 45) degrees for full 10 seconds 6a. Left Le - Drift; leg falls by the end of 5-seconds, but does not hit bed(Able to lift the left leg off the bed and hold for 5 sec with some drift but, did not hit the bed. Able to lift the R leg much higher off the bed. ) 6b. Right Le - No drift; leg holds 30-degree position for full 5 seconds 7. Limb Ataxia: 1 - Present in 1 limb 8. Sensory: 1 - [id number] sensory loss; (sensory loss in the face, arm and leg on the left) 9. Best Language: 0 - No aphasia; normal 10. Dysarthria: 0 - Normal (when I initially saw her prior to transfer to PCU for CP she had dysarthria but, speech is now more crisp and I do not perceive any dysarthria. ) 11. Extinction and Inattention: 1 - Visual, tactile, auditory, spatial, or personal inattention; Total: 6 (Down from 16 at arrival to rehab ) Stroke Questions Stroke Team Activated: No Physical Exam Const alert and oriented x3 Constitutional Narrative: she is lying in bed at the time of my exam. General Appearance: well developed HEENT normocephalic, head/scalp atraumatic and hearing grossly normal bilaterally HEENT Narrative: Mucous membranes are dry Eyes PERRL, EOMs intact bilaterally, conjunctivae normal and no scleral icterus Eyes Narrative: No discharge from the eyes Neck supple, No nodes and no carotid bruits Chest Chest: symmetrical chest wall rise Resp normal respiratory effort, normal air movement and clear to auscultation bilaterally Effort and Inspection: able to speak in complete sentences Cardio regular rate, regular rhythm, S1 normal heart sound, S2 normal heart sound, no murmurs, no rub and no gallops Cardio Narrative: No ectopy GI normal to inspection, nondistended, normoactive bowel sounds, soft to palpation and non-tender GI Narrative: No guarding with palpation. no CVA tenderness Narrative: She came to us with a Smith catheter in place secondary to urinary retention. Back/Spine Back/Spine Narrative: Negative SLR on the left. Negative Hesham test. Intact sensation to pinprick LLE. No pain with lightly stroking the skin of the thigh, hamstring or calf. She has pain at the base of the skull where the trapezius attaches to the occiput. There is muscle tension/spasm localized to this area. This is where the migraines always start. Cervical Spine: trapevius muscle tenderness Trapezius Muscle Tenderness Details:right (neck and at the attachment of the muscle to the occiput) Extremity no calf tenderness and no pedal edema Peripheral Pulses: Yes pulses 2+ throughout Skin no jaundice General Skin Exam: no breakdown Rashes: no rashes Neuro oriented x3 Neuro Narrative: Has noticed a slowing of her thought processing since the stroke. She has a very mild left facial droop. PERRLA, EOMI. Right after the stroke she had a partial gaze palsy. Decreased shoulder shrug on the left. She is left hand dominant. Able to lift the Left arm off the bed but has some drift....does not hit the bed. No drift with the RUE. She can lift the LLE off the bed about 3" but has drift. It does not hit the bed. RLE has no drift and has good strength. Can plantar flex and dorsiflex the left foot but, weaker than the R. Decreased sensation in the Left face and left leg........mild decrease L arm. +extinction with left leg and intemittently with the L face. + ataxia of the L leg. HAs left side neglect. No dysarthria today and no aphasia. Psych Psych Narrative: She is anxious, depressed and overwhelmed. Somewhat confrontational. Tearful at times. Having some panic attacks. Was having panic attacks as an OP. 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 She is very upset at this. Making good eye contact with me today. I answered all her questions. She denies homicidal or suicidal ideation. She is open to get counselling and being treated for anxiety/depression/panic attacks. Results Lab / Micro Data 11/11/24 05:30 11/11/24 05:30 Labs: Laboratory Results - last 24 hr 11/11/24 05:30: WBC 8.3, RBC 4.11 L, Hgb 12.6, Hct 37.5, MCV 91.2, MCH 30.7, MCHC 33.6, RDW Std Deviation 38.8, RDW Coeff of Maria Teresa 11.6, Plt Count 372, MPV 10.0, Sodium 142, Potassium 4.1, Chloride 105, Carbon Dioxide 28.2, Anion Gap 9,BUN 11, Creatinine 0.66 L, Estim Creat Clear Calc 111.95, Est GFR (MDRD) Non-Af 113, BUN/Creatinine Ratio 15.8, Glucose 138 H, Calcium 9.4, Phosphorus 3.6, Magnesium 2.3 H, Total Bilirubin 0.19, AST 60 H, ALT 98 H, Alkaline Phosphatase 73, Total Protein 6.2, Albumin 3.9, Globulin 2.3, Albumin/Globulin Ratio 1.7 Assessment & Plan Assessment/Plan (1) Debility: (2) Stroke: QUALIFIERS: CVA mechanism: unspecified Qualified Code(s): I63.9 -Cerebral infarction, unspecified PLAN: Etiology? No PFO. No hx of AF. Was not on an antihypertensive at admission to the hospital. Had a RX for Metoprolol to use PRN? (3) Acute left-sided weakness: (4) Hypertension: QUALIFIERS: Hypertension type: unspecified Qualified Code(s): I10- Essential (primary) hypertension PLAN: Uncertain if this is essential HTN or if it is related to chronic amphetamine use for ADD. (5) Vaping nicotine dependence, non-tobacco product: (6) Acquired polycythemia: PLAN: Will need to follow up with Dr. Bean gallegos [place]. (7) ADHD: QUALIFIERS: Attention deficit-hyperactivity disorder type: unspecified Qualified Code(s): F90.9 - Attention-deficit hyperactivity disorder,unspecified type PLAN: Treated for this and also migraine cephalgia at [facility] in [place]. She sees NEWSP[employer]ER [employer]ERS SUPERVISOR Lisette Gonsalves. Will get records and med list. She has migraines about 4 times a month and is taking a triptan PRN. Pt tells me that Triptans do not work. (8) Amphetamine use: PLAN: Adderall for ADD. (9) Migraine headache: QUALIFIERS: Intractability: not intractable Migraine type: unspecified Status migrainosus presence: without status migrainosus Qualified Code(s): G43.909 - Migraine, unspecified, not intractable, without status migrainosus PLAN: Has prescriptions for Nurtec and a Triptan from neurology. (10) Anxiety: PLAN: Drinks alcohol and uses cannabis to control. Has panic attacks at times. (11) Abnormal LFTs: PLAN: She is now on a high dose statin since the CVA........will recheck in another week. they were normal in the past. (12) V-tach: PLAN: Asymptomatic. Cardiology recommended a beta vanita and she was started on Metoprolol. (13) Central neuropathic pain: (14) Insomnia: QUALIFIERS: Insomnia type: unspecified Qualified Code(s): G47.00 - Insomnia, unspecified (15) 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 (CVA): PLAN: Plan PLAN PT for gait stability OT for ADL's ST for evaluation Analgesics as needed Bowel protocol Fall precautions Assess for Anxiety/Depression GI prophylaxis -not necessary at this time. She denies nausea/vomiting/epigastric pain/history of peptic ulcer disease/heartburn. DVT prophylaxis with enoxaparin 40 mg subcu daily Follow up with neurology, PCP (will need to get established with a PCP) following DC from [facility] AM lab including CMP, CBC, Mag and Phos - all recent lab was personally reviewed. Change the beta vanita to a non-selective beta vanita.......may treat the HTN,NSVT and the migraines. DC amphetamines. Try Wellbutrin for ADD. Pt had a work colleague who got severely depressed on Wellbutrin........she is hesitant to take this but, will try. DC HCTZ........do not want her to get dehydrated and hemoconcentrated. If the BP is not controlled on a beta vanita and Lisinopril will adjust the doses. Add Buspar for anxiety now. Would like to avoid benzo's if at all possible. Gabapentin 200 mg at HS for central neuropathic pain and it may help with sleep. Recheck a CMP and a lipid panel in 1 week. Why is she on Prednisolone and erythromycin eye drops? Sclera is clear and there is no DC from the eyes. Obtain records from Lisette Gonsalves [facility] [place] We discussed DC all nicotine products, no ETOH, no caffeine, no amphetamines andno Cannabis. she understands how this could have contributed to the stroke. I am also not in favor of continuing Triptans. Consider a neurology consult after I have her records from Lisette Gonsalves and moreinformation. She was seen by [facility] teleneurology at initial presentation to the ER for stroke sx. I recommended she follow up with a cryptanalyst for concerns about the IUD she was supposed to have removed 1 year ago. She will need a 30-day event monitor at discharge. He can follow-up with cardiology for nonsustained V. tach and to review the results of the 30-day event monitor. Charges/Coding Visit Charges Inpatient E&M: 80460 Init Hosp L3 11/12/24 8419 <Electronically signed by Netta Domingo DO> Cosigner Signature (if applicable): CC: Dr. Netta Domingo, ; No Primary Care Physician~ Signed [facility] Work Phone: 1(150) 248-104508-12-2025 History and physical note Author Netta Domingo [facility] Note Date/Time November 12, 2024 11 :31am [facility] Medical Records Department [address] [facility] [place] [address] Post Admission Physician Eval 11/11/24 1728 MR#: [id number] Acct: [id number] Name: ELIN OSHEA Rep #:[id number] : 1985 39 From: Netta Domingo DO PCP: Care Physician,No Primary Status :ADM IN Location: [place] [address] Admission Information Primary Diagnosis:: Poststroke debility Status Changes from Prescreening?: Medical Actual Problem List:: Pain, ALteration in Cmfrt, Depression, Alteration in Sleep, Mobility Impaired, Self Care Deficit, Know.Dfct/Disease Process, Know.Dfct of Medicaitons, BP, Hypertension and Alteration-Leisure Activ. Potential Problem List:: DVT, Bleeding, Infection, UTI, Aspiration, Falls, Skin Integrity and Depression Risk of Complications DVT: LMWH and DEBORAH Hose Bleeding: Monitor Lab Values, Nursing to Teach [...] 5 out of 7 days Patient needs Occupational Therapy to improve ADL's incl.: Eating, Grooming, Bathing, Dressing, Toileting, Toilet transfers, Community Reintegration, Higher functioning activities, Household tasks, Adaptive Equipment, Splinting and Otheractivities as determined Patient requires speech therapy: For a minimum of 1 hour and At least 5 out of 7days Patient requires speech therapy for: Swallowing, Cognition, Language Skills and Compensatory Strategies Patient requires 24/ Rehabilitation Nursing for: Pain Issues, Identifying and preventing risk factors, Monitoring and reporting current medical conditions, Assisting with ambulation, transfer, and all ADL's, Teaching patients about disease process and medications, Family teaching, Providing safe environment, Bowel and Bladder Issues, Skin integrity and Medication Management Patient needs Project Management Advisor/ Case Management for: Discharge Planning, Arranging Home Equipment or Services and Family Interventions Patient needs Dietary and Nutrition Services for: Adequate Nutrition, Nutritional Supplements and Nutritional Education Goals Goals Patient will remain: free from falls Patient will perform eating at: MOD I level of assist. Patient will perform bed mobility at: MOD I level of assist. Patient will complete transfers from bed to chair at: Standby Assist. Patient will ambulate: - (150 feet with least restrictive device on various surfaces at contact-guard assist) Patient will complete upper body dressing at: - (Set up) Patient will complete lower body dressing at: Standby Assist. (Using adaptive equipment as needed to increase independence with self-care) Patient will complete toilet transfer at: Standby Assist. Patient will complete toileting at: Standby Assist. Patient will perform bathing at: Standby Assist. (Upper body bathing at standby assist and lower body bathing at standby assist with adaptive equipment as needed.) Patient will perform Tub/Shower transfer at: Standby Assist. (Using DME as needed as needed.) Patient will complete grooming at: Standby Assist. (While standing at the sink) Patient will complete home management skills at: Standby Assist. Patient will achieve: - (3 steps with 1 handrail at min assist to allow access to her home entrance) Patient will have pain level of: of 3 or less Patient's skin will: remain intact Patient will receive: adequate nutrition. Discharge Planning Pt Prognosis for Sig. Practical Improv. w/in Reasonable Time: Good Estimated Length of stay (days): 28 Anticipated D/C Destination: Home w/ family or friends (With outpatient therapy) Was Preadmission Assessment Accurate?: Yes 11/12/24 1131 <Electronically signed by Netta Domingo DO> Cosigner Signature (if applicable): CC: ~ Signed [facility] Work Phone: 1(950) 107-284208-11-2025 Progress note Author Sandra Root [facility] Note Date/Time November 11, 2024 5: 27pm [facility] Medical Records Department [address] [place] [address] Progress Note 11/11/24 1112 MR#: [id number] Acct: [id number] Name: ELIN OSHEA Rep #:[id number] : 1985 39 From: Sandra ZHOU PCP: Care Physician,No Primary Status :ADM IN Location: [place] [address] Documented by User: ABELARDO Perez 11/11/24 11:39 Progress Note At the request of Dr. Vasquez, I met with the patient, Elin to discuss goals of care going forward as well as discussion of her current medical status. Elin was sitting in a bedside recliner with her feet elevated. She was open to conversation after introduced myself. I did note her to have poor eye contact as well as being very restless. She stated that she was feeling very anxious and requested that the family moved closer to her in which I did. Elin states that she has a 16-year-old son that lives with her that she is very concerned about. She states that he is currently staying with his father and he is not very happy about it and he feels that it is not a good environment. She is very worried about him and is one of the "why's" in her lifeto get better and return home. She does indicate that she is prone to panic attacks and feels like she is getting ready to have one " I was able to talk her through some relaxation techniques with deep breathing and distraction. Isaiah became very tearful when talking about her job which she is fearful of losing. She states that she works for a [employer] and that she just got a promotion and a raise. She states that they assured her that her job would besecured but she is fearful that they are "just placating me." We then had an extensive discussion about her mental wellbeing. She states that she is open togoing to therapy and has been interested previously but she could not afford it at the time and there was also difficulty with gaining access to good mental health care. I did state that I would place a referral to behavioral health in which she states that she is very interested. She states that she has been meeting with Jason escobar, which has been helpful. Elin states that she also has a friend from work who comes in and prays with her and that she plans on attending anglican with this friend once she is discharged. I did place a phone call to Mike Dempsey and behavioral health and had to leave a message. I also placed the consult to behavioral health. We then had an extensive discussion about her current medications and lifestyle and given her current post CVA. She states that she has done vaping and feels that she will be successful. We also discussed the fact that she is been taking Adderall for her ADHD and its incidence in regard regards to strokes. She does state understanding of the need to discontinue taking Adderall. She does acknowledge that she has depression and anxiety and I did remind her that Adderall can exacerbate these types of symptoms. She states that she would be open to medication management. After discussion with Dr. Vasquez, decision was made to initiate Wellbutrin 75 mg p.o. twice daily and BuSpar 5 mg p.o. twice daily. Adderall has been discontinued. She states that she has had history of migraines and frustration over the fact that she has had not found good control with medications. I did discuss this with Dr. Vasquez and decision was made to take the patient off of metoprolol 50 twice daily and initiate propranolol. I did contact the pharmacist, Alisson, and discussed dosing is to be transition from metoprolol to propranolol she indicated that the patient should take 40 mg twice daily. Order was placed. Elin acknowledges that she does utilize marijuana nightly to induce sleep. We discussed alternatives to marijuana such as melatonin which she states that she does not like because of the dreams that she has when she takes it. We alsodiscussed CBD, which she states that she has the same type of dreams that are lucid and she does not feel rested. She says that "1 hit of marijuana is the only thing that seems to help" her. We discussed alternatives such as guided imagery, meditation and deep breathing techniques which she states she is open to. I stressed the importance of stroke prevention and utilization of stimulants, alcohol and marijuana. She states understanding and assures me thatshe is planning to discontinue vaping, stimulants and alcohol, as she feels thather job and her son are the most important things and she does not want to have another stroke. Patient states that her ultimate goal is to return home and to return to her job as soon as possible. All questions were answered. Physical Exam Const oriented x3 and no apparent distress General Appearance: cooperative, comfortable and well kempt Orientation / Consciousness: awake, oriented to person, oriented to place and oriented to time Exam Limitations: no limitations HEENT normocephalic Eyes PERRL Neck full ROM Lymph Lymphatic: no lymphadenopathy noted Resp normal respiratory effort, normal air movement, no retractions, no use of accessory muscles and clear to auscultation bilaterally Cardio regular rate and regular rhythm GI normal to inspection, nondistended, normoactive bowel sounds Extremity Extremity Narrative: Left-sided weakness status post CVA Skin no rashes or lesions noted Neuro oriented x3 Speech: speech normal Psych Appearance: appropriate Activity / Motor Behavior: fidgetting and restless Speech: normal speech Mood & Affect: depressed and anxious Thought Content: normal thought content Memory / Cognition: memory grossly intact Insight: fair Judgement: fair Assessment & Plan Assessment/Plan (1) 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 (CVA): (2) Anxiety: PLAN: Plan Referral to behavioral health Wellbutrin 75 mg p.o. twice daily BuSpar 5 mg p.o. twice daily Continued discussions with Jason escobar. Medical management per primary team. Documented by User: Dr. Netta Domingo, DO 11/11/24 17:27 Progress Note At the request of Dr. Domingo, I met with the patient, Elin to discuss goals of care going forward as well as discussion of her current medical status. Elin was sitting in a bedside recliner with her feet elevated. She was open to conversation after introduced myself. I did note her to have poor eye contact as well as being very restless. She stated that she was feeling very anxious and requested that the family moved closer to her in which I did. Elin states that she has a 16-year-old son that lives with her that she is very concerned about. She states that he is currently staying with his father and he is not very happy about it and he feels that it is not a good environment. She is very worried about him and is one of the "why's" in her lifeto get better and return home. She does indicate that she is prone to panic attacks and feels like she is getting ready to have one " I was able to talk her through some relaxation techniques with deep breathing and distraction. Isaiah became very tearful when talking about her job which she is fearful of losing. 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 She states that they assured her that her job would besecured but she is fearful that they are "just placating me." We then had an extensive discussion about her mental wellbeing. She states that she is open togoing to therapy and has been interested previously but she could not afford it at the time and there was also difficulty with gaining access to good mental health care. I did state that I would place a referral to behavioral health in which she states that she is very interested. She states that she has been meeting with Jason escobar, which has been helpful. Elin states that she also has a friend from work who comes in and prays with her and that she plans on attending anglican with this friend once she is discharged. I did place a phone call to [facility] behavioral health and had to leave a message. I also placed the consult to behavioral health. We then had an extensive discussion about her current medications and lifestyle and given her current post CVA. She states that she is done vaping and feels that she will be successful. We also discussed the fact that she has been taking Adderall for her ADHD and its incidence in regard regards to strokes. She does state understanding of the need to discontinue taking Adderall. She does acknowledge that she has depression and anxiety and I did remind her that Adderall can exacerbate these types of symptoms. She states that she would be open to medication management. After discussion with Dr. Vasquez, decision was made to initiate Wellbutrin 75 mg p.o. twice daily and BuSpar 5 mg p.o. twice daily. Adderall has been discontinued. She states that she has had history of migraines and frustration over the fact that she has had not found good control with medications. I did discuss this with Dr. Vasquez and decision was made to take the patient off of metoprolol 50 twice daily and initiate propranolol. I did contact the pharmacist, Alisson, and discussed dosing is to be transition from metoprolol to propranolol she indicated that the patient should take 40 mg twicedaily. Order was placed. Elin acknowledges that she does utilize marijuana nightly to induce sleep. We discussed alternatives to marijuana such as melatonin which she states that she does not like because of the dreams that she has when she takes it. We alsodiscussed CBD, which she states that she has the same type of dreams that are lucid and she does not feel rested. She says that "1 hit of marijuana is the only thing that seems to help" her. We discussed alternatives such as guided imagery, meditation and deep breathing techniques which she states she is open to. I stressed the importance of stroke prevention and utilization of stimulants, alcohol and marijuana. She states understanding and assures me thateric is planning to discontinue vaping, stimulants and alcohol, as she feels thather job and her son are the most important things and she does not want to have another stroke. Patient states that her ultimate goal is to return home and to return to her job as soon as possible. All questions were answered. Assessment & Plan Assessment/Plan (1) 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 (CVA): (2) Anxiety: PLAN: Plan Referral to behavioral health Wellbutrin 75 mg p.o. twice daily BuSpar 5 mg p.o. twice daily Continued discussions with Jason escobar. Medical management per primary team. I saw the pt independently of the [employer] and completed her H&P. We discussed her findings with regard to mental health and also discussed changes to the medication regimen. She has been transitioned from Metoprolol to Propanolol in hopes that this will help with management of migraines and well as HTN. She does not have a regular PCP and I encouraged her to follow up regularly with a PCP to establish a relationship and provide routine medical care as well as preventative health care. I think that good mental health care and counselling are going to be critical for this patient going forward. 11/11/24 1139 <Electronically signed by Sandra ZHOU> Sandra ZHOU Cosigner Signature (if applicable): 11/11/24 1722 <Electronically signed by Netta Domingo DO> CC: ~ Signed [facility] Work Phone: 1(314) 135-249208-11-2025 [facility]08-10-2025 Discharge summary Author Nehemiah Hammond [facility] Note Date/Time November 10, 2024 8: 55am [facility] Medical Records Department [address] [place] [address] Discharge Summary 11/10/24 0833 MR#: [id number] Acct: [id number] Name: DAYOELIN N Rep #:[id number] : 1985 39 From: Nehemiah Hammond MD PCP: Care Physician,No Primary Status :ADM IN [facility] Prov[facility] Date of Admission: 11/04/24 Primary Care Physician: No Primary Care Phys Consultations 11/04/24 13:13 Consult: Oncology/Hematology Routine Consulting Provider: *[facility] Reason for Consult: 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 Domingo prior to transfer to PCU 11/04/24 13:55 Consult: Cardiology Routine Consulting Provider: [...] insurance still pending prior to transfer to correction for 3. Erythrocytosis with concern for polycythemia [...] % (Auto) 51.5, Lymph % (Auto) 37.4, Johnson % (Auto) 8.7, Eos % (Auto) 1.6, [...] Rehab Unit/Facility Charges/Coding Visit Charges Inpatient E&M: 00451 Disch Hosp >30min 11/10/24 0855 <Electronically signed by Nehemiah Hammond MD> Cosigner Signature (if applicable): CC: Dr. Nehemiah Hammond MD; No Primary Care Physician~ Signed [facility] Work Phone: 1(215) 255-909408-10-2025 Discharge summary [facility] Medical Records Department [address] [place] [address] Discharge Summary 11/10/24 0833 MR#: [id number] Acct: [id number] Name: ELIN OSHEA Rep #:[id number] : 1985 39 From: Nehemiah Hammond MD PCP: Care Physician,No Primary Status :ADM IN Location: [place] [id number]- [id number] Providers Date of Admission: 11/04/24 Primary Care Physician: No Primary Care Phys Consultations 11/04/24 13:13 Consult: Oncology/Hematology Routine Consulting Provider: *[facility]) Reason for Consult: 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 Domingo prior to transfer to [facility] 11/04/24 13:55 Consult: Cardiology Routine Consulting Provider: [...] insurance still pending prior to transfer to correction for 3. Erythrocytosis with concern for polycythemia [...] % (Auto) 51.5, Lymph % (Auto) 37.4, Johnson % (Auto) 8.7, Eos % (Auto) 1.6, [...] Provider: Nehemiah Hammond Primary Care Provider: Care Physician,Felicita Primary Consulting Providers: Nehemiah Ugarte; Shaun Del [...] Rehab Unit/Facility Charges/Coding Visit Charges Inpatient E&M: 48533 Disch Hosp >30min 11/10/24 0855 Cosigner Signature (if applicable): CC: Dr. Nehemiah Hammond MD; No Primary Care Physician~ Signed [facility]08-10-2025 [facility]08-09-2025 Progress note Author Nehemiah [facility] Note Date/Time November 09, 2024 10: 29am [facility] Medical Records Department [address] [place] [address] Progress Note - Hospitalist 11/09/24728 MR#: [id number] Acct: [id number] Name: ELIN OSHEA Rep #:[id number] : 1985 39 From: Nehemiah Hammond MD PCP: Care Physician,No Primary Status :ADM IN Location: [place] [address] Reason for Visit Chief Complaint: Chest pain [...] % (Auto) 55.6, Lymph % (Auto) 32.3, Johnson % (Auto) 9.0, Eos % (Auto) 2.2, [...] % (Auto) 55.4, Lymph % (Auto) 32.6, Johnson % (Auto) 9.2, Eos % (Auto) 1.9, [...] insurance still pending prior to transfer to correction for 3. Erythrocytosis with concern for polycythemia [...] 35 Minutes Charges/Coding Visit Charges Inpatient E&M: 21451 Subs Hosp L2 Date medically ready for discharge: 11/08/24 Reason for DC delay: Precert pending from insurance 11/09/24 1029 <Electronically signed by Nehemiah Hammond MD> Cosigner Signature (if applicable): CC: ~ Signed [facility] Work Phone: 1(443) 186-886108-09-2025 Progress note [facility] Medical Records Department [address] [place] [address] Progress Note - Hospitalist 11/09/24 0729 MR#: [id number] Acct: [id number] Name: ELIN OSHEA Rep #:[id number] : 1985 39 From: Nehemiah Hammond MD PCP: Care Physician,No Primary Status :ADM IN Location: [place] [address] Reason for Visit Chief Complaint: Chest pain [...] 11/09/24 23:59 23:59 23:59 Intake Total 1999 1999 3400 / 3400 Output Total 850 [...] % (Auto) 55.6, Lymph % (Auto) 32.3, Johnson % (Auto) 9.0, Eos % (Auto) 2.2, [...] % (Auto) 55.4, Lymph % (Auto) 32.6, Johnson % (Auto) 9.2, Eos % (Auto) 1.9, Baso % (Auto) 0.6, Absolute Neuts (auto) 5.0, Absolute Lymphs (auto) 2.95, Nucleated RBC % 0, Sodium 140, Potassium 4.2, [id number], Carbon Dioxide 23.8, Anion Gap 9, BUN [...] insurance still pending prior to transfer to correction for 3. Erythrocytosis with concern for polycythemia [...] 35 Minutes Charges/Coding Visit Charges Inpatient E&M: 52303 Subs Hosp L2 Date medically ready for discharge: 11/08/24 Reason for DC delay: Precert pending from insurance 11/09/24 1029 Cosigner Signature (if applicable): CC: ~ Signed [facility]08-08-2025 Progress note Author Nehemiah Hammond [facility] Note Date/Time November 08, 2024 9:2 5am [facility] Medical Records Department [address] [place] [address] Progress Note - Hospitalist 11/08/24 0751 MR#: [id number] Acct: [id number] Name: ELIN OSHEA Rep #:[id number] : 1985 39 From: Nehemiah Hammond MD PCP: Care Physician,No Primary Status :ADM IN Location: [place] [address] Reason for Visit Chief Complaint: Chest pain [...] 23:59 Intake Total 1950 / 1950 1999 1000 / 1000 Output Total 2975 [...] % (Auto) 63.9, Lymph % (Auto) 24.1, Johnson % (Auto) 9.6, Eos % (Auto) 1.7, [...] % (Auto) 55.6, Lymph % (Auto) 32.3, Johnson % (Auto) 9.0, Eos % (Auto) 2.2, [...] 35 Minutes Charges/Coding Visit Charges Inpatient E&M: 99080 Subs Hosp L2 Date medically ready for discharge: 11/05/24 Reason for DC delay: Precert pending from insurance 11/08/24924 <Electronically signed by Nehemiah Hammond MD> Cosigner Signature (if applicable): CC: ~ Signed [facility] Work Phone: 1(404) 632-761808-08-2025 Progress note [facility] Medical Records Department [address] [place] [address] Progress Note - Hospitalist 11/08/24 0751 MR#: [id number] Acct: [id number] Name: ELIN OSHEA Rep #:[id number] : 1985 39 From: Nehemiah Hammond MD PCP: Care Physician,No Primary Status :ADM IN Location: [place] [address] Reason for Visit Chief Complaint: Chest pain [...] 11/07/24 11/08/24 23:59 23:59 23:59 Intake Total 1949 1000 / 1000 Output Total 2975 / [...] % (Auto) 63.9, Lymph % (Auto) 24.1, Johnson % (Auto) 9.6, Eos % (Auto) 1.7, [...] % (Auto) 55.6, Lymph % (Auto) 32.3, Johnson % (Auto) 9.0, Eos % (Auto) 2.2, [...] 35 Minutes Charges/Coding Visit Charges Inpatient E&M: 38194 Subs Hosp L2 Date medically ready for discharge: 11/05/24 Reason for DC delay: Precert pending from insurance 11/08/24924 Cosigner Signature (if applicable): CC: ~ Signed [facility]08-07-2025 Progress note Author Nehemiah Hammond [facility] Note Date/Time November 07, 2024 10: 13am [facility] Medical Records Department [address] [place] [address] Progress Note - Hospitalist 11/07/24 1006 MR#: [id number] Acct: [id number] Name: ELIN OSHEA Rep #:[id number] : 1985 39 From: Nehemiah Hammond MD PCP: Care Physician,No Primary Status :ADM IN Location: [place] [id number]- [id number] Reason for Visit Chief Complaint: Chest [...] 35 Minutes Charges/Coding Visit Charges Inpatient E&M: 34003 Subs Hosp L2 Date medically ready for discharge: 11/05/24 Reason for DC delay: Precert pending from insurance 11/07/24 1013 <Electronically signed by Nehemiah Hammond MD> Cosigner Signature (if applicable): CC: ~ Signed [facility] Work Phone: 1(784) 493-585108-07-2025 Progress note [facility] Medical Records Department [address] [place] [address] Progress Note - Hospitalist 11/07/24 1006 MR#: [id number] Acct: [id number] Name: ELIN OSHEA Bao Rep #:[id number] : 1985 39 From: Nehemiah Hammond MD PCP: Care Physician,No Primary Status :ADM IN Location: [place] [address] Reason for Visit Chief Complaint: Chest pain [...] 35 Minutes Charges/Coding Visit Charges Inpatient E&M: 37536 Subs Hosp L2 Date medically ready for discharge: 11/05/24 Reason for DC delay: Precert pending from insurance 11/07/24 1013 Cosigner Signature (if applicable): CC: ~ Signed [facility]08-06-2025 Progress note Author Nehemiah Hammond [facility] Note Date/Time November 06, 2024 8:5 9am [facility] Medical Records Department [address] [place] [address] Progress Note - Hospitalist 11/06/24 0858 MR#: [id number] Acct: [id number] Name: ELIN OSHEA Rep #:[id number] : 1985 39 From: Nehemiah Hammond MD PCP: Care Physician,No Primary Status :ADM IN Location: [place] [address] Reason for Visit Chief Complaint: Chest pain [...] % (Auto) 58.7, Lymph % (Auto) 27.6, Johnson % (Auto) 10.9 H, Eos % (Auto) [...] with no acute abdominopelvic abnormalities. Reading Location: [facility] Physical Exam Narrative GENERAL: cooperative HEENT: Atraumatic; [...] 35 Minutes Charges/Coding Visit Charges Inpatient E&M: 00489 Subs Hosp L2 Date medically ready for discharge: 11/05/24 Reason for DC delay: Precert pending from insurance 11/06/24 0859 <Electronically signed by Nehemiah Hammond MD> Cosigner Signature (if applicable): CC: ~ Signed [facility] Work Phone: 1(505) 576-908608-06-2025 Progress note Author Law Eduardo [facility] Note Date/Time November 06, 2024 7:3 7am [facility] Medical Records Department [address] [place] [address] Progress Note - Cardiology 11/06/24 0733 MR#: [id number] Acct: [id number] Name: ELIN OSHEA Rep #:[id number] : 1985 39 From: Law Eduardo MD PCP: Care Physician,No Primary Status :ADM IN Location: [place] [address] Subjective Subjective Patient seen and evaluated Objective [...] % (Auto) 58.7, Lymph % (Auto) 27.6, Johnson % (Auto) 10.9 H, Eos % (Auto) [...] % (Auto) 58.7, Lymph % (Auto) 27.6, Johnson % (Auto) 10.9 H, Eos % (Auto) [...] focal hepatic process is noted. Reading Location: [facility] Abdomen/Pelvis CT 11/05/24 14:54 IMPRESSION: Unremarkable study with no acute abdominopelvic abnormalities. Reading Location: [facility] Assessment & Plan Assessment/Plan (1) Chest pain: [...] ~ Signed [facility] Work Phone: 1(137) 419-938308-06-2025 Progress note [facility] Medical Records Department [address] [place] [address] Progress Note - Hospitalist 11/06/2458 MR#: [id number] Acct: [id number] Name: ELIN OSHEA Rep #:[id number] : 1985 39 From: Nehemiah Hammond MD PCP: Care Physician,No Primary Status :ADM IN Location: [place] [address] Reason for Visit Chief Complaint: Chest pain [...] Balance -1700 / -1900 -650 / -775 -25 / -25 Lab / Micro Data 11/06/24 06:16 11/06/24 06:16 Labs: Laboratory Results - last 24 hr 11/06/24 06:16: WBC 9.6, RBC 5.78 H, Hgb 17.4 H, Hct 52.1 H, MCV 90.1, MCH 30.1,MCHC 33.4, RDW Std Deviation 39.6, RDW Coeff of Maria Teresa 11.9, Plt Count 361, MPV 10.3, Immature Gran % (Auto) 0.400, Neut %(Auto) 58.7, Lymph % (Auto) 27.6, Johnson % (Auto) 10.9 H, Eos % (Auto) [...] with no acute abdominopelvic abnormalities. Reading Location: [facility] Physical Exam Narrative GENERAL: cooperative HEENT: Atraumatic; [...] 35 Minutes Charges/Coding Visit Charges Inpatient E&M: 57065 Subs Hosp L2 Date medically ready for discharge: 11/05/24 Reason for DC delay: Precert pending from insurance 11/06/24 0859 Cosigner Signature (if applicable): CC: ~ Signed [facility]08-06-2025 Progress note Author [facility] Jace [facility] Note Date/Time November 06, 2024 6:4 7am [facility] Medical Records Department [address] [place] [address] Progress Note - Hospitalist 11/06/2446 MR#: [id number] Acct: [id number] Name: ELIN OSHEA Bao Rep #:[id number] : 1985 39 From: Ximena Mccormick MD PCP: Care Physician,No Primary Status :ADM IN Location: [place] [address] Hospitalist Note Patient with significant asymptomatic bout of VT. Resolved. Cardiology made aware. Will obtain a.m. labs including magnesium. 11/06/2447 <Electronically signed by Ximena Mccormick MD> Cosigner Signature (if applicable): CC: ~ Signed [facility] Work Phone: 1(814) 111-700008-06-2025 Progress note [facility] Medical Records Department [address] [place] [address] Progress Note - Cardiology 11/06/24 0733 MR#: [id number] Acct: [id number] Name: ELIN OSHEA Rep #:[id number] : 1985 39 From: Law Eduardo MD PCP: Care Physician,No Primary Status :ADM IN Location: [place] [address] Subjective Subjective Patient seen and evaluated Objective [...] Neut %(Auto) 58.7, Lymph % (Auto) 27.6, Johnson % (Auto) 10.9 H, Eos % (Auto) [...] % (Auto) 58.7, Lymph % (Auto) 27.6, Johnson % (Auto) 10.9 H, Eos % (Auto) [...] focal hepatic process is noted. Reading Location: [facility]-1 Abdomen/Pelvis CT 11/05/24 14:54 IMPRESSION: Unremarkable study with no acute abdominopelvic abnormalities. Reading Location: [facility] Assessment & Plan Assessment/Plan (1) Chest pain: [...] Will check magnesium and potassium levels. 11/06/24 2334 Cosigner Signature (if applicable): CC: ~ Signed [facility]08-06-2025 Progress note [facility] Medical Records Department [address] [place] [address] Progress Note - Hospitalist 11/06/24 0546 MR#: [id number] Acct: [id number] Name: ELIN OSHEA Rep #:[id number] : 1985 39 From: Ximena Mccormick MD PCP: Care Physician,No Primary Status :ADM IN Location: [place] [address] Hospitalist Note Patient with significant asymptomatic bout of VT. Resolved. Cardiology made aware. Will obtain a.m.labs including magnesium. 11/06/24 0647 Cosigner Signature (if applicable): CC: ~ Signed [facility]08-05-2025 Radiology Diagnostic study note [facility] Imaging Services [address] [place] [address] Abdomen/Pelvis WITH Contrast MR#: [id number] Acct: [id number] Name: ELIN OSHEA Rep #: [id number] : 1985 F 39 From: Chaz Hugo MD PCP: Care Physician,No Primary Status: ADM IN Study:Abdomen/Pelvis WITH Contrast Date of Ex am: 11/05/24 Exam# [id number] Ordering Dr: Mya Hammond MD PROCEDURE: ABDOMEN/PELVIS [...] with no acute abdominopelvic abnormalities. Reading Location: [facility] CC: Dr. Nehemiah Hammond MD; No Primary Care Physician ~ Staff Radiologist: Signed [facility]08-05-2025 Progress note Author Nehemiah Hammond [facility] Note Date/Time November 05, 2024 11: 20am [facility] Medical Records Department [address] [place] [address] Progress Note - Hospitalist 11/05/24 1117 MR#: [id number] Acct: [id number] Name: ELIN OSHEA Rep #:[id number] : 1985 39 From: Nehemiah Hammond MD PCP: Care Physician,No Primary Status :ADM IN Location: [place] [address] Reason for Visit Chief Complaint: Chest pain [...] focal hepatic process is noted. Reading Location: [place] [address] Physical Exam Narrative GENERAL: cooperative HEENT: Atraumatic; [...] 36 Minutes Charges/Coding Visit Charges Inpatient E&M: 24810 Subs Hosp L2 Date medically ready for discharge: 11/05/24 Reason for DC delay: Precert pending from insurance 11/05/24 1120 <Electronically signed by Nehemiah Hammond MD> Cosigner Signature (if applicable): CC: ~ Signed [facility] Work Phone: 1(944) 152-542208-05-2025 Progress note [facility] Medical Records Department [address] [place] [address] Progress Note - Hospitalist 11/05/24 1117 MR#: [id number] Acct: [id number] Name: ELIN OSHEA Bao Rep #:[id number] : 1985 39 From: Nehemiah Hammond MD PCP: Care Physician,No Primary Status :ADM IN Location: [place] [address] Reason for Visit Chief Complaint: Chest pain [...] focal hepatic process is noted. Reading Location: [place] [address] Physical Exam Narrative GENERAL: cooperative HEENT: Atraumatic; [...] 36 Minutes Charges/Coding Visit Charges Inpatient E&M: 66427 Subs Hosp L2 Date medically ready for discharge: 11/05/24 Reason for DC delay: Precert pending from insurance 11/05/24 1120 Cosigner Signature (if applicable): CC: ~ Signed [facility]08-05-2025 Radiology Diagnostic study note [facility] Imaging Services [address] [place], [place] [id number] Abdomen Complete MR#: [id number] Acct: [id number] Name: ELIN OSHEA Rep #: [id number] : 1985 F 39 From: Demetrius Zarate MD PCP: Care Physician,No Primary Status: ADM IN Study:Abdomen Complete Date of Exam: 08/25 Exam# [id number] Ordering Dr: Kaleb Vick DO PROCEDURE: ABDOMEN [...] focal hepatic process is noted. Reading Location: [place] [address] CC: Dr. Kaleb Horta, DO; No Primary Care Physician ~ Staff Radiologist: Signed [facility]08-04-2025 Consult note Author Shaun Del Angel [facility] Note Date/Time November 04, 2024 6:1 6pm [facility] Cancer Care [address] [place] [address] Consultation - Oncology 11/04/24 1746 MR#: [id number] Acct: [id number] Name: ELIN OSHEA Boa Rep #:[id number] : 1985 39 From: Shaun Del Angel MD PCP: Care Physician,No Primary Status :ADM IN Location: [facility] BKH688- 1 Assessment & Plan Assessment/Plan (1) Polycythemia: Status: [...] Do you have a Healthcare Power of Vehicle Monitor Technician?: No [facility] Medical History HTN (hypertension) ADHD Migraine Strain [...] Hr 31 H, Urine Test Negative 11/04/24 3550 <Electronically signed by Shaun Del Angel MD> CC: Dr. Kaleb Horta DO; No Primary Care Physician ~ Signed [facility] Work Phone: 1(137) 643-180408-04-2025 History and physical note Author Kaleb Horta [facility] Note Date/Time November 04, 2024 4:4 4pm [facility] Medical Records Department [address] [place] [address] H&P Exam - Hospitalist 11/04/24 1309 MR#: [id number] Acct: [id number] Name: ELIN OSHEA Rep #:[id number] : 1985 39 From: Kaleb bridges DO PCP: Care Physician,No Primary Status :ADM IN Location: [place] [address] HPI - General General Date of Admission: 11/04/24 Date of Service: 11/04/24 Chief Complaint: Chest pain HPI Narrative ELIN OSHEA, is a 39 F who presented [...] admitted to the PCU for further management. [facility] Medical History HTN (hypertension) ADHD Migraine Strain [...] 75 minutes. Charges/Coding Visit Charges Inpatient E&M: 90879 Init Hosp L3 11/04/24 1644 <Electronically signed by Kaleb Horta DO> Cosigner Signature (if applicable): CC: Dr. Kaleb Horta DO; No Primary Care Physician~ Signed [facility] Work Phone: 1(262) 820-448408-04-2025 Consult note [facility] Cancer Care [address] [place] [address] Consultation - Oncology IP 11/04/24 1746 MR#: [id number] Acct: [id number] Name: DAYOELIN N Rep #:[id number] : 1985 39 From: Shaun Del Angel MD PCP: Care Physician,No Primary Status :ADM IN Location: [place] [address] Assessment & Plan Assessment/Plan (1) Polycythemia: Status: [...] Provider: No Primary Care Phys Attending: Dr. Kaelb Horta DO Chief Complaint Chief Complaint: Asked [...] Do you have a Healthcare Power of Vehicle Monitor Technician?: No [facility] Medical History HTN (hypertension) ADHD Migraine Strain [...] [facility]08-04-2025 History and physical note [facility] Medical Records Department [address] [place] [address] H&P Exam - Hospitalist 11/04/24 1309 MR#: [id number] Acct: [id number] Name: ELIN OSHEA Rep #:[id number] : 1985 39 From: Kaleb bridges DO PCP: Care Physician,No Primary Status :ADM IN Location: [place] [address] HPI - General General Date of Admission: 11/04/24 Date of Service: 11/04/24 Chief Complaint: Chest pain HPI Narrative ELIN OSHEA, is a 39 F who presented [...] admitted to the PCU for further management. [facility] Medical History HTN (hypertension) ADHD Migraine Strain [...] 75 minutes. Charges/Coding Visit Charges Inpatient E&M: 64354 Init Hosp L3 11/04/24 1644 Cosigner Signature (if applicable): CC: Dr. Kaleb Horta DO; No Primary Care Physician~ Signed [facility]08-04-2025 Discharge summary [facility] Medical Records Department [address] [place] [address] Discharge Summary 11/04/24 1032 MR#: [id number] Acct: [id number] Name: ELIN OSHEA Rep #:[id number] : 1985 39 From: Netta Domingo DO PCP: Care Physician,No Primary Status :ADM IN Location: [address] Providers Date of Admission: 11/01/24 Date of Discharge: 11/04/24 Primary Care Physician: No Primary Care Phys Consultations 11/04/24 10:09 Consult: Cardiology Routine Consulting Provider: [facility] Reason for Consult: chest pain with abnormal EKG EMERGENT Consult: Yes MD Notified: Yes Date Notified: 11/04/24 Time Notified: 10:09 Method of Notification: Text 11/04/24 10:12 Consult: Oncology/Hematology Routine Consulting Provider: Shaun Del Angel Reason for Consult: polycythemia with CVA EMERGENT Consult: Yes Notified: Yes Date Notified: 11/04/24 Time Notified: [...] Neut % (Auto) 65.7, Lymph % (Auto) 24.9,Johnson % (Auto) 8.2, Eos % (Auto) 0.6, [...] the right side.) 8. Sensory: 1 - Woua-qa-mhlkvsin sensory loss; 9. Best Language: 0 - No aphasia; normal 10. Dysarthria: 1 = Dviw-lg-qvphbhut dysarthria; 11. Extinction and Inattention: 0 - [...] Pedro Hong; Law Eduardo; Nehemiah Horton; Pratima rArieta; Chevy Gann; Abigail Guerrero; Ellis Jerome; Nghia [...] Provider] - Charges/Coding Visit Charges Inpatient E&M: 57085 Disch Hosp >30min Hospital Course RU Procedures [...] 60%. Bubble contrast study was negative for weuak-be-wxig interatrial shunt and no thrombus was detected [...] the acute inpt rehab unit at [facility] on 11/01/24 for 3 hours of therapydaily [...] Dr. Eduardo from cardiology who recommended adding wljdcpabjh20 mg p.o. twice daily. She is going [...] 1128 Cosigner Signature (if applicable): CC: Dr. Netta Domingo, DO; No Primary Care Physician~ Signed [facility]08-04-2025 [facility]08-02-2025 History and physical note Author Luis Ravi [facility] Note Date/Time November 02, 2024 1:1 1pm [facility] Medical Records Department [address] [place] [address] Post Admission Physician Pearl 11/02/24 1306 MR#: [id number] Acct: [id number] Name: ELIN OSHEA Rep #:[id number] : 1985 39 From: Luis Ravi MD PCP: Care Physician,No Primary Status :ADM IN Location: [place] [address] Admission Information Primary Diagnosis:: Stroke, left hemiplegia, [...] Language Skills and Compensatory Strategies Patient requires 24/10 Rehabilitation Nursing for: Pain Issues, Identifying and preventing risk factors, Monitoring and reporting current medical conditions, Assisting with ambulation, transfer, and all ADL's, Teaching patients about disease process and medications, Family teaching, Providing safe environment, Bowel and Bladder Issues, Skin integrity and Medication Management Patient needs Project Management Advisor/ Case Management for: Discharge Planning, Arranging Home [...] ~ Signed [facility] Work Phone: 1(935) 112-624708-02-2025 History and physical note [facility] Medical Records Department [address] [place] [address] Post Admission Physician Pearl 11/02/24 1306 MR#: [id number] Acct: [id number] Name: ELIN OSHEA Rep #:[id number] : 1985 39 From: Luis Ravi MD PCP: Care Physician,No Primary Status :ADM IN Location: [place] [address] Admission Information Primary Diagnosis:: Stroke, left hemiplegia, [...] Skin integrity and Medication Management Patient needs Project Management Advisor/ Case Management for: Discharge Planning, Arranging Home [...] Note Date/Time November 01, 2024 4:5 3pm [facility] Medical Records Department [address] [place] [address] History & Physical Exam 11/01/24 1617 MR#: [id number] Acct: [id number] Name: ELIN OSHEA Rep #:[id number] : 1985 39 From: Luis Ravi MD PCP: Care Physician,No Primary Status :ADM IN Location: [address] HPI - General General Date of Admission: 11/01/24 Date of Service: 11/01/24 Chief Complaint: Here for 3 hours daily rehabilitation. HPI Narrative ELIN OSHEA, is a 39 Female who presents with followin10/30/2024 [facility] ED stroke alert. Sudden left arm [...] migraine headache, headache improved. 10/30/[address] [facility]. MRI brain, Echo, Aspirin, Statin for [...] daily rehabilitation, strengthening, prior to disposition determination. [facility] Medical History (Updated 11/01/24 @ 16:38 by [...] CVA/Stroke: Yes Hx of CVA/Stroke: No Modified [place] Score MRS Score at time of Evaluation: [...] 0 - Absent 8. Sensory: 1 - Xudv-td-gfznitze sensory loss; 9. Best Language: 0 - [...] polycythemia, migraines, admittedto for 3 hours daily rehabilitation, strengthening, prior [...] rhinitis - Loratadine 10mg daily prn. 11/01/24 1657 <Electronically signed by Luis Ravi MD> Cosigner Signature (if applicable): CC: Dr. Luis Ravi MD; No Primary Care Physician~ Signed [facility] Work Phone: 1(908) 924-111808-01-2025 History and physical note [facility] Medical Records Department [address] [place] [address] History & Physical Exam 11/01/24 1617 MR#: [id number] Acct: [id number] Name: ELIN OSHEA Rep #:[id number] : 1985 39 From: Luis Ravi MD PCP: Care Physician,No Primary Status :ADM IN Location: [place] [address]1 HPI - General General Date of Admission: 11/01/24 Date of Service: 11/01/24 Chief Complaint: Here for 3 hours daily rehabilitation. HPI Narrative ELIN OSHEA, is a 39 Female who presents with followin10/30/2024 [facility] ED stroke alert. Sudden left arm [...] migraine headache, headache improved. 10/30/[address] [facility]. MRI brain, Echo, Aspirin, Statin for [...] daily rehabilitation, strengthening, prior to disposition determination. [facility] Medical History (Updated 11/01/24 @ 16:38 by [...] CVA/Stroke: Yes Hx of CVA/Stroke: No Modified [place] Score MRS Score at time of Evaluation: [...] 0 - Absent 8. Sensory: 1 - Ppqp-xk-bxknuduh sensory loss; 9. Best Language: 0 - [...] rhinitis - Loratadine 10mg daily prn. 11/01/24 1653 Cosigner Signature (if applicable): CC: Dr. Luis Ravi MD; No Primary Care Physician~ Signed [facility]08-01-2025 [facility]08-01-2025 Discharge summary [facility] Medical Records Department [address] [place] [address] Instructions for Home/Discharge Instructions 11/01/24 1422 MR#: [id number] Acct: [id number] Name: ELIN OSHEA Rep #:[id number] : 1985 39 From: Vee Stuart MD PCP: Care Physician,No Primary Status :ADM IN Discharge Instructions DC O2, CPAP, BIPAP needs Home O2 Discharge instructions: No Dressing / Incision Discharge Activity: - (Discharging to [facility] rehab) Follow Up Care Test [...] Renee Cleveland MD; Sheeba Rodriguez MD; David Gael MD; Dr. Moser Adeblanca SCHWAB; Dr. Nehemiah Haney DO; Dr. Kyle Ghosh MD; Dr. Leidy Mckinnon MD; Dr. Tong Rai MD; Dr. Reagan White MD;Dr. Juaquin Campos MD; Dr. Aaron Chavez DO; Dr. Hemanth Reyna MD; Dr.Mohamed Arnulfo MD; Dr. Sen Clarke MD; Dr. Melissa Haywood MD; Dr. Sandra MD; Dr. Meme Pepe MD; Shakira Anthony DO; No Primary Care Physician; Mark Garcias MD ~ Signed [facility]08-01-2025 [facility]07-31-2025 Consult note Author Tong Rai [facility] Note Date/Time October 31, 2024 1:03 pm [facility] Medical Records Department [address] [place] [address] Consultation - Neurology 10/31/24 1253 MR#: [id number] Acct: [id number] Name: ELIN OSHEA Rep #:[id number] : 1985 39 From: Tnog Rai MD PCP: Care Physician,No Primary Status :ADM IN Location: [place] [address] Assessment and Plan: Stroke Assessment/Plan ELIN OSHEA is a 39 F with a [...] her subtle exam fluctuations. 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 If her [...] of Consult: 10/31/24 HPI Narrative HPI Narrative: ELIN OSHEA, is a 39 F who presents [...] snoring, apneic episodes of excessive daytime somnolence. [facility] Medical History (Updated 10/31/24 @ 00:55 by [...] 79.3 H, Lymph % (Auto) 15.0 L, Johnson % (Auto) 4.2, Eos % (Auto) 0.4, [...] 9:01 pm EST on 10/30/24. Reading Location: [facility] Head/Neck CTA 10/30/24 20:52 IMPRESSION: No acute large vessel occlusion. No high grade stenosis. Reading Location: [facility] Chest X-Ray 10/30/24 21:41 IMPRESSION: No acute cardiopulmonary disease. Reading Location: [facility] Brain MRI 10/31/24 06:00 IMPRESSION: There [...] Thai at the time ofdictation. Reading [facility] Active Medications Active Medications Active Medications: Current [...] 10/31/24 09:56 IV 10/31/24 14:02 70 mls/hr .[id number] MARIN Infusion Labetalol HCl 10 - 20 [...] and with change in RN caregiver. Freq: [id number] Protocol: Activity Type Activity Date Activity User E-sign Co-sign Detail Recorded Client Recorded Date Recorded By Document 10/31/24 10:00 TERESA [id number] 10/31/24 10:07 TERESA 10/31/24 10:00 NIH Stroke Scale [NIHSS] A score of 0 is "normal" or asymptomatic . Total possible score is [...] 12 Query Text:A score of 0 is "normal" or asymptomatic. Total possible score is 42 [...] 0 - Absent 8. Sensory: 1 - Mrsj-ep-ixrgxxtd sensory loss; 9. Best Language: 0 - No aphasia; normal 10. Dysarthria: 1 = Thwp-ic-pxdhjtjx dysarthria; 11. Extinction and Inattention: 0 - No abnormality Total: 10 10/31/24 1303 <Electronically signed by Tong Rai MD> Cosigner Signature (if applicable): CC: No Primary Care Physician~ Signed [facility] Work Phone: 1(370) 868-787807-31-2025 Consult note [facility] Medical Records Department [address] [place] [address] Consultation - Neurology 10/31/24 1253 MR#: [id number] Acct: [id number] Name: ELIN OSHEA Rep #:[id number] : 1985 39 From: Tong Rai MD PCP: Care Physician,No Primary Status :ADM IN Location: [place] [address] Assessment and Plan: Stroke Assessment/Plan ELIN OSHEA is a 39 F with a [...] of Consult: 10/31/24 HPI Narrative HPI Narrative: ELIN OSHEA, is a 39 F who presents [...] snoring, apneic episodes of excessive daytime somnolence. [facility] Medical History (Updated 10/31/24 @ 00:55 by [...] 79.3 H, Lymph % (Auto) 15.0 L, Johnson % (Auto) 4.2, Eos % (Auto) 0.4, [...] 209 H, LDL Cholesterol, Calc 108, VLDL Somyilhpqfv70, HDL Cholesterol 61, Cholesterol/HDL Ratio 3.43, Vitamin B12 484 Imaging Radiology Impression Brain CT 10/30/24 20:46 IMPRESSION: Left frontal lobe periventricular white matter focal hypodensity measuring approximally 7 x 7 mm, which may reflect a lacunar infarction however acute infarction is not entirely excluded. Dr. Silva was notified by Jeanette De Jesus at 9:01 pm EST on 10/30/24. Reading Location: [facility] Head/Neck CTA 10/30/24 20:52 IMPRESSION: No acute large vessel occlusion. No high grade stenosis. Reading Location: [facility] Chest X-Ray 10/30/24 21:41 IMPRESSION: No acute cardiopulmonary disease. Reading Location: [facility] Brain MRI 10/31/24 06:00 IMPRESSION: There [...] the left superior precentral cortex, axial image 25/, which appears acute. There is a 0.8 cm old lacunar infarct inthe deep white matter on the left. Critical results were discussed with Velia Parada by Thai at the time ofdictation. Reading Location: [facility] Active Medications Active Medications Active Medications: Current [...] 10/31/24 09:56 IV 10/31/24 14:02 70 mls/hr .[id number] MARIN Infusion Labetalol HCl 10 - 20 [...] and with change in RN caregiver. Freq: [id number] Protocol: Activity Type Activity Date Activity User E-sign Co-sign Detail Recorded Client Recorded Date Recorded By Document 10/31/24 10:00 [facility] [id number] 10/31/24 10:07 [facility] 10/31/24 10:00 NIH Stroke Scale [NIHSS] A score of 0 is "normal" or asymptomatic . Total possible score is [...] 12 Query Text:A score of 0 is "normal" or asymptomatic. Total possible score is 42 [...] 0 - Absent 8. Sensory: 1 - Noae-zh-ficlceak sensory loss; 9. Best Language: 0 - No aphasia; normal 10. Dysarthria: 1 = Aeax-gv-mgtvjooo dysarthria; 11. Extinction and Inattention: 0 - No abnormality Total: 10 10/31/24 1303 Cosigner Signature (if applicable): CC: No Primary Care Physician~ Signed [facility]07-31-2025 Progress note Author Sen Clarke [facility] Note Date/Time October 31, 2024 9:46 am [facility] Medical Records Department [address] [place] [address] Progress Note - Hospitalist 10/31/24 0938 MR#: [id number] Acct: [id number] Name: ELIN OSHEA Rep #:[id number] : 1985 39 From: Sen sherwood MD PCP: Care Physician,No Primary Status :ADM IN Location: [place] [address] Subjective Subjective Still having a migraine, and [...] 79.3 H, Lymph % (Auto) 15.0 L, Johnson % (Auto) 4.2, Eos % (Auto) 0.4, [...] 9:01 pm EST on 10/30/24. Reading Location: [facility] Head/Neck CTA 10/30/24 20:52 IMPRESSION: No acute large vessel occlusion. No high grade stenosis. Reading Location: [facility] Chest X-Ray 10/30/24 21:41 IMPRESSION: No acute cardiopulmonary disease. Reading Location: [facility] Physical Exam Narrative General: Alert, Oriented [...] DVT: SCDs Charges/Coding Visit Charges Inpatient E&M: 50678 Subs Hosp L2 NIHSS NIHSS Nursing Documentation NIHSS Nursing Documentation: NIHSS: Ischemic Stroke/TIA Start: 10/31/24 01:12 Text: For PCU Patients: NIH and Neuro Check every 4 Status: Active hours, PRN and with change in RN caregiver. Freq: [id number] Protocol: Activity Type Activity Date Activity User E-sign Co-sign Detail Recorded Client Recorded Date Recorded By Document 10/31/24 06:00 [facility] [id number] 10/31/24 06:25 [facility] 10/31/24 06:00 NIH Stroke Scale [NIHSS] A score of 0 is "normal" or asymptomatic . Total possible score is [...] 13 Query Text:A score of 0 is "normal" or asymptomatic. Total possible score is 42 . ED: Notify Physician for NIHSS increase by > / = 3 points. Inpatient: RN or Physician to activate a stroke alert for NIHSS increase of > / = 3 points. Coma Scale [Assess] -Eye Opening Spontaneous -Motor Obeys Commands -Verbal Oriented [Total] -Coma Scale Total 15 10/31/24 0954 <Electronically signed by Sen Clarke MD> Cosigner Signature (if applicable): CC: ~ Signed [facility] Work Phone: 1(681) 322-515607-31-2025 Progress note [facility] Medical Records Department [address] [place] [address] Progress Note - Hospitalist 10/31/2438 MR#: [id number] Acct: [id number] Name: ELIN OSHEA Rep #:[id number] : 1985 39 From: Sen sherwood MD PCP: Care Physician,No Primary Status :ADM IN Location: [place] [address] Subjective Subjective Still having a migraine, and [...] 79.3 H, Lymph % (Auto) 15.0 L, Johnson % (Auto) 4.2, Eos % (Auto) 0.4, [...] 209 H, LDL Cholesterol, Calc 108, VLDL Fjlshmxadnt79, HDL Cholesterol 61, Cholesterol/HDL Ratio 3.43, Vitamin B12 484 Radiography Diagnostic Testing: Radiology Impression Brain CT 10/30/24 20:46 IMPRESSION: Left frontal lobe periventricular white matter focal hypodensity measuring approximally 7 x 7 mm, which may reflect a lacunar infarction however acute infarction is not entirely excluded. Dr. Silva was notified by Jeanette De Jesus at 9:01 pm EST on 10/30/24. Reading Location: [facility] Head/Neck CTA 10/30/24 20:52 IMPRESSION: No acute large vessel occlusion. No high grade stenosis. Reading Location: [facility] Chest X-Ray 10/30/24 21:41 IMPRESSION: No acute cardiopulmonary disease. Reading Location: [facility] Physical Exam Narrative General: Alert, Oriented [...] DVT: SCDs Charges/Coding Visit Charges Inpatient E&M: 13555 Subs Hosp L2 NIHSS NIHSS Nursing Documentation NIHSS Nursing Documentation: NIHSS: Ischemic Stroke/TIA Start: 10/31/24 01:12 Text: For PCU Patients: NIH and Neuro Check every 4 Status: Active hours, PRN and with change in RN caregiver. Freq: [id number] Protocol: Activity Type Activity Date Activity User E-sign Co-sign Detail Recorded Client Recorded Date Recorded By Document 10/31/24 06:00 [facility] [id number] 10/31/24 06:25 [facility] 10/31/24 06:00 NIH Stroke Scale [NIHSS] A score of 0 is "normal" or asymptomatic . Total possible score is [...] 13 Query Text:A score of 0 is "normal" or asymptomatic. Total possible score is 42 [...] Note Date/Time October 31, 2024 6:31 am [facility] Medical Records Department [address] [place] [address] H&P Exam - Hospitalist 10/30/24 2323 MR#: [id number] Acct: [id number] Name: DAYORAVINDER MurdockChristina Salas Rep #:[id number] : 1985 39 From: Nehemiah Cordova DO PCP: Care Physician,No Primary Status :ADM IN Location: [facility] [id number]- 1 HPI - General General Date of Admission: 10/30/24 Date of Service: 10/30/24 Chief Complaint: Acute Left-sided Weakness with Slurred Speech. HPI Narrative ELIN DAYO, is a 39 F with a past [...] status expected to extend beyond 2 midnights. [facility] Medical History (Updated 10/31/24 @ 00:55 by [...] 79.3 H, Lymph % (Auto) 15.0 L, Johnson % (Auto) 4.2, Eos % (Auto) 0.4, [...] 9:01 pm EST on 10/30/24. Reading Location: [facility] Head/Neck CTA 10/30/24 20:52 IMPRESSION: No acute large vessel occlusion. No high grade stenosis. Reading Location: [facility] Chest X-Ray 10/30/24 21:41 IMPRESSION: No acute cardiopulmonary disease. Reading Location: [facility] Assessment & Plan Assessment/Plan (1) Ischemic [...] artery vasospasm. Give acetaminophen as needed for qnlo-sk-kgvlpybn (level 1-5/10) pain or fever. Givemorphine IV [...] 75 minutes. Charges/Coding Visit Charges Inpatient E&M: 17911 Init Hosp L3 10/31/24 0631 <Electronically signed by Nehemiah Haney DO> Cosigner Signature (if applicable): CC: Dr. Nehemiah Haney, ; No Primary Care Physician~ Signed [facility] Work Phone: [phone] 974-470107-31-2025 History and physical note [facility] Medical Records Department [address] [place] [address] H&P Exam - Hospitalist 10/30/24 2323 MR#: [id number] Acct: [id number] Name: ELIN OSHEA Rep #:[id number] : 1985 39 From: Nehemiah Cordova DO PCP: Care Physician,No Primary Status :ADM IN Location: [address] 1 HPI - General General Date of Admission: 10/30/24 Date of Service: 10/30/24 Chief Complaint: Acute Left-sided Weakness with Slurred Speech. HPI Narrative ELIN OSHEA, is a 39 F with a [...] status expected to extend beyond 2 midnights. [facility] Medical History (Updated 10/31/24 @ 00:55 by [...] 79.3 H, Lymph % (Auto) 15.0 L, Johnson % (Auto) 4.2, Eos % (Auto) 0.4, [...] 9:01 pm EST on 10/30/24. Reading Location: [facility] Head/Neck CTA 10/30/24 20:52 IMPRESSION: No acute large vessel occlusion. No high grade stenosis. Reading Location: [facility] Chest X-Ray 10/30/24 21:41 IMPRESSION: No acute cardiopulmonary disease. Reading Location: [facility] Assessment & Plan Assessment/Plan (1) Ischemic [...] artery vasospasm. Give acetaminophen as needed for rumm-jn-qyualvyy (level 1-5/10) pain or fever. Givemorphine IV [...] 75 minutes. Charges/Coding Visit Charges Inpatient E&M: 14068 Init Hosp L3 10/31/24 0631 Cosigner Signature (if applicable): CC: Dr. Nehemiah Haney DO; No Primary Care Physician~ Signed [facility]07-31-2025 Discharge summary Author Domenico Silva [facility] Note Date/Time October 31, 2024 1:01 am [facility] Medical Records Department [address] [place] [address] Emergency Department Summary 10/30/24 MR#: [id number] Acct: [id number] Name: ELIN OSHEA Rep #:[id number] : 1985 39 From: Domenico Poon PCP: Care Physician,No Primary Status :ADM IN Location: [address] History of Present Illness Chief Complaint: Stroke Alert Informant: patient and EMS Onset/Context/Timing Onset: Today Context: Sudden Onset Timing: Continuous Quality and Location: Positive for Left Arm Weakness and Left Leg Weakness Onset: Last known well was 1530 today (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 [facility] Medical History (Updated 10/31/24 @ 00:[address] Domenico Schwiger, DO) HTN (hypertension) ADHD Migraine Strain of [...] called. Upon arrival, patient was evaluated in [facility]. Patient had a left upper and [...] 79.3 H Lymph % (Auto) 15.0 L Johnson % (Auto) 4.2 Eos % (Auto) 0.4 [...] 9:01 pm EST on 10/30/24. Reading Location: [facility] Head/Neck CTA 10/30/24 20:52 IMPRESSION: No acute large vessel occlusion. No high grade stenosis. Reading Location: [facility] Chest X-Ray 10/30/24 21:41 IMPRESSION: No acute cardiopulmonary disease. Reading Location: [facility] CT scan of the brain was [...] sinus rhythm with a rate of 73. NH interval, QRS interval, and QTc intervals were all normal. [place] was normal. There are no acute ST or T wave changes. Prior EKG tracings: available for review Prior: Unchanged (11/27/2023) Management Discussion w/another healthcare provider: Hospitalist, Supervisor [employer] (Stroke neurologist [facility]) and Radiologist Treatment and Re-Evaluation Narrative: [...] (36), Including time spent:, Discussing w/Patient &/or Family/Wastewater Design Engineer, Discussing w/Consultants, Arranging Admission or Transfer and Performing Direct Patient Care at Bedside Discharge Plan Dx/Rx/DC Orders Clinical Impression: Acute left-sided weakness, Hypertension, Migraine headache, Overweight (BMI 25.0-29.9), Polycythemia Disposition Disposition: [facility] Care [facility] Discharge Date/Time: 10/31/24 00:35 NIHSS NIHSS 1a. [...] your Primary Care Provider. Call [facility] ([phone]) or report to the closest Emergency Room. Call 911 if necessary. 10/31/24100 <Electronically signed by Domenico Silva DO> Cosigner Signature (if applicable): CC: No Primary Care Physician ~ Signed [facility] Work Phone: 1(696) 822-473707-31-2025 Evaluation note* Diagnosis Onset Date Resolution Status Admit Date Acute left-sided weakness acute October 30, 2024 11:35pm ADHD inactive October 30 11:35pm Hypertension inactive October 30 11:35pm Migraine headache inactive October 302024 11:35pm Polycythemia inactive October 30 11:35pm Ischemic cerebrovascular accident (CVA) deleted October 30, 2024 11:35pm Overweight (BMI 25.0-29.9) deleted October 30, 2024 11:35pm Tobacco abuse deleted October 30, 2024 11:35pm Debility acute November 01 3:18pm Stroke acute November 01 3:18pm Chest pain resolved November 01 3:18pm ADHD inactive November 01 3:18pm Allergic rhinitis inactive November 01, 2024 3:18pm Migraine headache inactive November 01, 2024 3:18pm Polycythemia inactive November 01, 2024 3:18pm Essential (primary) hypertension deleted November 01, 2024 3:18pm Ischemic cerebrovascular accident (CVA) deleted November 01, 2024 3:18pm Left hemiplegia deleted November 3:18pm Tobacco abuse deleted November 01, 2024 3:18pm Chest pain resolved November 04 1:09pm V-tach resolved November 04 1:09pm Polycythemia inactive November 04, 2024 1:09pm Essential (primary) hypertension deleted November 04, 2024 1:09pm Ischemic cerebrovascular accident (CVA) deleted November 04, 2024 1:09pm Acute left-sided weakness acute November 10, 2024 1:53pm Debility acute November 10 1:53pm Stroke acute November 10 1:53pm Acquired polycythemia chronic Nov 1:53pm Anxiety chronic November 10 1:53pm 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 (CVA) chronic A ug2024 1:53pm Abnormal LFTs resolved November 1:53pm Insomnia resolved November 10 1:53pm Neck pain on right side resolved A ugust 2024 1:53pm V-tach resolved November 10 1:53pm Vaping nicotine dependence, non-tobacco product resolved November 10, 2024 1:53pm ADHD inactive November 10 1:53pm Amphetamine use inactive November 102024 1:53pm Central neuropathic pain inactive November 10, 2024 1:53pm Hypertension inactive November 10, 2024 1:53pm Migraine headache inactive November 10, 2024 1:53pm Acute left-sided weakness acute December 11, 2024 9:44am Debility acute December 9:44am Stroke acute December 9:44am Acquired polycythemia chronic Sep 2024 9:44am Anxiety chronic December 9:44am 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 (CVA) chronic S eptember 2024 9:44am ADHD inactive December 9:44am Central neuropathic pain inactive December 11, 2024 9:44am Hypertension inactive December 112024 9:44am Migraine headache inactive 2024 9:44am Acquired polycythemia chronic Sep tember 2024 2:56pm [facility] Work Phone: [phone] Discharge summary [facility] Medical Records Department [address] [place] [address] Emergency Department Summary 10/30/24 MR#: [id number] Acct: [id number] Name: ELIN OSHEA Rep #:[id number] : 1985 39 From: Domenico Poon PCP: Care Physician,No Primary Status :ADM IN Location: [address] History of Present Illness Chief Complaint: Stroke Alert Informant: patient and EMS Onset/Context/Timing Onset: Today Context: Sudden Onset Timing: Continuous Quality and Location: Positive for Left Arm Weakness and Left Leg Weakness Onset: Last known well was 1530 today (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 [facility] Medical History (Updated 10/31/24 @ 00:54 by [...] called. Upon arrival, patient was evaluated in [facility]. Patient had a left upper and lower [...] 79.3 H Lymph % (Auto) 15.0 L Johnson % (Auto) 4.2 Eos % (Auto) 0.4 [...] 9:01 pm EST on 10/30/24. Reading Location: [facility] Head/Neck CTA 10/30/24 20:52 IMPRESSION: No acute large vessel occlusion. No high grade stenosis. Reading Location: [facility] Chest X-Ray 10/30/24 21:41 IMPRESSION: No acute cardiopulmonary disease. Reading Location: [facility] CT scan of the brain was [...] anormal sinus rhythm with arate of 73. NH interval, QRS interval, and QTc intervals were all normal. [place] was normal. There are no acute ST or T wave changes. Prior EKG tracings: available for review Prior: Unchanged (11/27/2023) Management Discussion w/another healthcare provider: Hospitalist, Supervisor [employer]ing [employer] (Stroke neurologist [facility]) and Radiologist Treatment and Re-Evaluation Narrative: [...] (36), Including time spent:, Discussing w/Patient &/or Family/Wastewater Design Engineer, Discussing w/Consultants, Arranging Admission or Transfer and Performing Direct Patient Care at Bedside Discharge Plan Dx/Rx/DC Orders Clinical Impression: Acute left-sided weakness, Hypertension, Migraine headache, Overweight (BMI 25.0-29.9), Polycythemia Disposition Disposition: Acute Care [facility] Discharge Date/Time: 10/31/24 00:35 NIHSS NIHSS [...] your Primary Care Provider. Call [facility] ([phone]) or report tothe closest Emergency Room. Call 911 if necessary. 10/31/24 010 Cosigner Signature (if applicable): CC: No Primary Care Physician ~ Signed [facility]07-30-2025 Radiology Diagnostic study note [facility] Imaging Services [address] [place], [place] [id number] Chest 1 View MR#: [id number] Acct: [id number] Name: RAVINDER OSHEAChristina Salas Rep #: [id number] : 1985 F 39 From: Lyndon Hammond MD PCP: Care Physician,No Primary Status: REG ER Study:Chest 1 View Date of Exam: 5 Exam# [id number] Ordering Dr: Domenico Silva DO PROCEDURE: CHEST 1 VIEW 10/30/2024 REASON FOR EXAM: NEURO DEFICIT, ACUTE, STROKE SUSPECTED TECHNIQUE: Frontal view of the chest. COMPARISON: 11/27/2023 FINDINGS: Lungs/Pleura: Clear. Heart/Mediastinum: Normal in size. Bones/Soft tissues: Within normal limits. RAD/Chest 1 View IMPRESSION: No acute cardiopulmonary disease. Reading Location: [facility] CC: Dr. Domenico Silva DO; No Primary Care Physician ~ Staff Radiologist: Signed [facility]07-30-2025 Radiology Diagnostic study note [facility] Imaging Services [address], [place] [id number] STROKE CTA Head AND Neck W/Con MR#: [id number] Acct: [id number] Name: LEIN OSHEA Rep #: [id number] : 1985 F 39 From: Taylor De Jesus MD PCP: Care Physician,No Primary Status: REG ER Study:STROKE CTA Head AND Neck W/Con Date of Exam: 10/30/24 Exam# [id number] Ordering Dr: Schwiger ,Domenico DO PROCEDURE: STROKE CTA HEAD AND NECK [...] the tip of the basilar. Both proximal ADMINISTRATIVE SUPPORT CLERK segmentsare patent. There isno large vessel occlusion. There is no enhancing intracranial mass. Shotty cervical lymph nodes are identified. The thyroid gland is heterogeneous. The lung apices demonstrate no pneumothorax. No destructive osseous abnormalities identified. CT/STROKE CTA Head AND Neck W/Con IMPRESSION: No acute large vessel occlusion. No high grade stenosis. Reading Location: [facility] CC: Dr. Domenico Silva, DO; No Primary Care Physician ~ Staff Radiologist: Signed [facility]07-30-2025 Radiology Diagnostic study note [facility] Imaging Services [address] [place] [address] STROKE Brain/Head without Cont MR#: [id number] Acct: [id number] Name: ELIN OSHEA Rep #: [id number] : 1985 F 39 From: Taylor De Jesus MD PCP: Care Physician,No Primary Status: REG ER Study:STROKE Brain/Head without Cont Date of Exam: 10/30/24 Exam# [id number] Ordering Dr: Domenico Silva DO PROCEDURE: STROKE [...] 9:01 pm EST on 10/30/24. Reading Location: [facility] CC: Dr. Domenico Silva DO; No Primary Care Physician ~ Staff Radiologist: Signed [facility]05-19-2025 Evaluation note* Diagnosis [...] 30, 2024 11:35pm Hypertension chronic October 30, 2 025 11:35pm [facility] Work Phone: 1(373) 937-597605-19-2025 Evaluation note* Diagnosis Onset Date Resolution Status [...] October 30, 2024 11:35pm Polycythemia acute October 30 11:35pm Tobacco abuse acute October 30, 2024 11:35pm Hypertension chronic October 30, 11:35pm [facility] Work Phone: 1([phone]) 875-843205-19-2025 Evaluation note* Diagnosis Onset Date Resolution Status [...] 2024 3:18pm [facility] Work Phone: 1(750) 551-544605-19-2025 Evaluation note* Diagnosis Onset Date Resolution Status [...] October 30, 2024 11:35pm Polycythemia inactive October 30 025 11:35pm Overweight (BMI 25.0-29.9) deleted October [...] 2024 1:09pm [facility] Work Phone: 1(162) 519-773405-19-2025 Evaluation note* Diagnosis Onset Date Resolution Status Admit Date Contusion of right great toe without damage to nail deleted August 19, 2024 10:40am Strain of great toe, right deleted August 19, 2024 10:40am Acute left-sided weakness acute October 30, 2024 11:35pm ADHD chronic October 30 11:35pm Hypertension chronic October 30, 11:35pm Migraine headache chronic October 302024 11:35pm Polycythemia inactive October 30 11:35pm Ischemic cerebrovascular accident (CVA) deleted October 30, 2024 11:35pm Overweight (BMI 25.0-29.9) deleted October 30, 2024 11:35pm Tobacco abuse deleted October 30, 2024 11:35pm Debility acute November 01 3:18pm Stroke acute November 01 3:18pm ADHD chronic November 01 3:18pm Allergic rhinitis chronic November 01, 2024 3:18pm Migraine headache chronic November 01, 2024 3:18pm Chest pain resolved November 01 3:18pm Polycythemia inactive November 01, 2024 3:18pm Essential (primary) hypertension del eted November 01, 2024 3:18pm Ischemic cerebrovascular accident (CVA) deleted November 01, 2024 3:18pm Left hemiplegia deleted November 3:18pm Tobacco abuse deleted November 01, 2024 3:18pm Chest pain resolved November 04 1:09pm V-tach resolved November 04 1:09pm Polycythemia inactive November 04, 2024 1:09pm Essential (primary) hypertension del eted November 04, 2024 1:09pm Ischemic cerebrovascular accident (CVA) deleted November 04, 2024 1:09pm Abnormal LFTs acute November 1:53pm Acute left-sided weakness acute November 10, 2024 1:53pm Amphetamine use acute November 102024 1:53pm Central neuropathic pain acute November 10, 2024 1:53pm Debility acute November 10 1:53pm Insomnia acute November 10 1:53pm Neck pain on right side acute A ug2024 1:53pm Stroke acute November 10 1:53pm Acquired polycythemia chronic Nov 1:53pm ADHD chronic November 10 1:53pm Anxiety chronic November 10 1:53pm 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 (CVA) chronic A ug2024 1:53pm Hypertension chronic November 10, 2024 1:53pm Migraine headache chronic November 10, 2024 1:53pm V-tach resolved November 10 025 1:53pm Vaping nicotine dependence, non-tobacco product resolved November 10, 2024 1:53pm [facility] Work Phone: [phone]) 631-111708-26-2024 NoteHNO ID: [id number] Author: VONNIE DICKERSON APRN.CNP Service: ? Author Type: Nurse Practitioner Type: Progress Notes Filed: 11/27/2023 11:37 Note Text: Patient triaged at [facility]. Here today with sob, left arm pain, elevated bp. Bp 190/110. I will refer to ER. Patient declines squad. Patient in no visible distress at time of triage.[facility]08-26-2024 History of Present illness Narrative* Vonnie Dickerson APRN.CNP - 11/27/2023 11:35 AM EDT Patient triaged at [facility]. Here today with sob, left arm pain, elevated bp. Bp 190/110. I will refer to ER. Patient declines squad. Patient in no visible distress at time of triage. documented in this encounter[facility] CenterDis[facility] summary Author Vee Stuart [facility] Note Date/Time November 01, 2024 2:3 0pm [facility] Medical Records Department [address] [place] [address] Instructions for Home/Discharge Instructions 11/01/24 1422 MR#: [id number] Acct: [id number] Name: ELIN OSHEA Bao Rep #:[id number] : 1985 39 From: Vee Stuart MD PCP: Care Physician,No Primary Status :ADM IN Discharge Instructions DC O2, CPAP, BIPAP needs Home O2 Discharge instructions: No Dressing / Incision Discharge Activity: - (Discharging to [facility] rehab) Follow Up Care Test [...] Rodriguez; Lydia Orantes; Renee Cleveland; Kyle Ghosh; Leiyd Mckinnon; Reagan Wihte; Tong Rai; Juaquin Campos; Shakira Anthony; Aaron [...] [facility] Work Phone: Discharge summary Author Netta Domingo [facility] Note Date/Time November 04, 2024 11: 28am [facility] Medical Records Department [address] [place] [address] Discharge Summary 11/04/24 1032 MR#: [id number] Acct: [id number] Name: ELIN OSHEA Rep #:[id number] : 1985 39 From: Netta Domingo DO PCP: Care Physician,No Primary Status :ADM IN Location: [place] [address] Providers Date of Admission: 11/01/24 Date of Discharge: 11/04/24 Primary Care Physician: No Primary Care Phys Consultations 11/04/24 10:09 Consult: Cardiology Routine Consulting Provider: [facility] Reason for Consult: chest pain with abnormal EKG EMERGENT Consult: Yes Notified: Yes Date Notified: 11/04/24 Time Notified: 10:09 Method of Notification: Text 11/04/24 10:12 Consult: Oncology/Hematology Routine Consulting Provider: Shaun Del Angel Reason for Consult: polycythemia with CVA EMERGENT Consult: Yes Notified: Yes Date Notified: 11/04/24 Time Notified: [...] Neut % (Auto) 65.7, Lymph % (Auto) 24.9,Johnson % (Auto) 8.2, Eos % (Auto) 0.6, Baso % (Auto) 0.4, Absolute Neuts (auto) 7.9 H, Absolute Lymphs (auto) 3.01, Nucleated RBC % 0 11/04/24 09:40: Troponin T High Sens Cancelled Indicators for Scoring Admitted with or Primary Diagnosis of CVA/Stroke: Yes Hx of CVA/Stroke: No Modified [place] Score MRS Score at time of Evaluation: [...] the right side.) 8. Sensory: 1 - Isyi-ai-xwpnutdo sensory loss; 9. Best Language: 0 - No aphasia; normal 10. Dysarthria: 1 = Rrvv-cu-lnnkrith dysarthria; 11. Extinction and Inattention: 0 - [...] Provider] - Charges/Coding Visit Charges Inpatient E&M: 80433 Disch Hosp >30min Hospital Course RU Procedures [...] 60%. Bubble contrast study was negative for bovnz-fi-vqwe interatrial shunt and no thrombus was detected [...] the acute inpt rehab unit at [facility] on 11/01/24 for 3 hours of therapydaily [...] Dr. Eduardo from cardiology who recommended adding qclrvnlicz68 mg p.o. twice daily. She is going [...] her questions. 11/04/24 1128 <Electronically signed by Netta Domingo DO> Cosigner Signature (if applicable): CC: Dr. Netta Domingo DO; No Primary Care Physician~ Signed [facility] Work Phone: Evaluation note* Diagnosis Chest pressure- Primary Other chest pain documented in this encounter [facility] CenterEvaluation noteNo assessment information availableBlSonora Regional Medical Center Work Phone: Hospital Discharge [...] Hospital Discharge instructionsAdditional Instructions Date of Discharge: 11/04/24[facility] Work Phone: Hospital Discharge instructionsAdditional Instructions 1. You have done a wonderful job with therapy. You have worked hard and I am pleasantly surprised at how much progress you have made. We are all proud (and you should be too) of the effort you have put forth. You have also worked hard on managing ADHD/anxiety/panic attacks/concentration/focus. You ask great questions and you have learned a lot about strokes and how to prevent additional strokes going forward. I know that you will continue to improve/recover from the stroke. The reason you had a stroke is not clear cut. There are likely many things that contributed to the stroke including High blood pressure, smoking, medications you were taking for migraines/ADHD, use of marijuana and alcohol and polycythemia. Polycythemia is a condition where the bone marrow makes too many red blood cells. This makes the blood thick and then it does not flow through small blood vessels very well and can cause occlusion of a blood vessel in the brain leading to a stroke. you had 2 units of blood removed and you have not needed to have additional blood removed while you were on rehab. You will need to follow up with the radio time buyer (blood doctor) after you leave rehab. Smoking/vaping can lead to an increase in red blood cells so I recommend you do not smoke or vape. 2. I think you have a better understanding now of what a healthy lifestyle entails. Eat a low salt diet. Salt cause the body to retain fluid and can lead to an increase in BP and swelling of the ankles. Follow a low fat diet. Cholesterol can collect inside the arteries and lead to narrowing of the artery which can then eventually occlude. One alcoholic drink a couple times a week is not a problem but, drinking more than this can be a problem. I would like to see you be able to control your stress/insomnia/reactions without having to use alcohol or drugs. Practise the grounding techniques I have given you and get good at setting boundaries. Having good boundaries keeps you from getting overwhelmed. I have given you some literature to read to help you understand how stress affects your mind and body. your coping skills/boundary setting are already much better than they were prior to the stroke. 3. Your new primary care provider, Torri Zapata, is a good listener and is very thorough. It is important to see her regularly because preventative healthcare is always better than waiting until you have a serious problem before consulting your PCP. 4. You developed some pain in the left aide while on rehab that was likely coming form the stroke. We have been giving you Gabapentin (med for nerve pain) and Tizanidine (muscle relaxer) at bedtime. You may no longer need these medications. I did not fax these prescriptions to [facility] but, I did write out a prescription. Try going without for a couple days and if the pain in the L leg and arm returns you can go ahead and get the prescriptions filled. 5. You no longer need the eye drops. 6. DO NOT TAKE NURTEC OR A TRIPTAN FOR MIGRAINES. DO NOT TAKE ADDERALL. THESE MEDICATIONS ARE CONTRAINDICATED IN PEOPLE WITH STROKES. 7. IF you have any questions after you leave rehab please do not hesitate to call me. OFFICE: [phone] CELL: [phone] NURSES STATION ON REHAB: [phone] The patient has a mobility limitation that cannot be sufficiently resolved by using a cane or walker. Use of a w/c will improve the participation in ADLs on a regular basis, in the home and in the community. [facility]: [facility] Hospital Discharge instructionsAdditional Instructions If the symptoms persist please call neurology office to schedule follow-up appointment. Workup today was largely normal and reassuring. Exact cause of the symptoms is not clear. It could be due to increased use/exertion or the increase in your medication last night. Your urine was sent for culture to ensure you do not have a urinary tract infection. You will be contacted if you require antibiotics. If you feel like you are worsening please return to the emergency room.[facility] Work Phone: Progress note Author Shaun Del Angel [facility] Note Date/Time December 30, 2024 4:07pm [facility] [address] [place] [address] OFFICE VISIT Date of Service: 12/30/24 1458 MR#: [id number] Acct: [id number] Name: ELIN OSHEA Rep #: [id number] : 1985 From: Shaun Del Angel MD Age/Sex: 39/F [place] [facility] [place] Signed HPI Subjective Date of Service 12/30/24 Chief Complaint Referred for Polycythemia evaluation. History of Present Illness 39-year-old woman presented with CVA plus left-sided weakness on 11/04/2024. It was associated with polycythemia, JAK2 V617F was negative, erythropoietin was 2.1. Chest x-ray on 10/30/[address] scan of the abdomen and pelvis on11/05/2024 was negative for malignancy. She had phlebotomy done to keep HCT below45. She is now referred for further evaluation and management she has recoveredalmost all her deficits associated with the stroke. Denies any previous family history, has stopped smoking. 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 Smoking Status: Former smoker alcohol intake: former substance use type: former substance user and marijuana caffeine: No do you feel safe at home: Yes ROS Constitutional Constitutional: Reports systems reviewed and no addt'l complaints, except as documented Eyes Eyes: Reports systems reviewed and no addt'l complaints, except as documented ENT HEENT: Reports systems reviewed and no addt'l complaints, except as documented Cardiovascular Cardiovascular: Reports systems reviewed and no addt'l complaints, except as documented Respiratory/Chest Respiratory/Chest: Reports systems reviewed and no addt'l complaints, except as documented Gastrointestinal Gastrointestinal: Reports systems reviewed and no addt'l complaints, except as documented Genitourinary Genitourinary: Reports systems reviewed and no addt'l complaints, except as documented Musculoskeletal Musculoskeletal: Reports systems reviewed and no addt'l complaints, except as documented Integumentary Integumentary: Reports systems reviewed and no addt'l complaints, except as documented Neurologic Neurologic: Reports systems reviewed and no addt'l complaints, except as documented Psychiatric Psychiatric: Reports systems reviewed and no addt'l complaints, except as documented Endocrine Endocrinology: Denies systems reviewed and no addt'l complaints, except as documented, as per HPI, none, change in body appearance, change in libido, cold intolerance, deepening of the voice, excessive sweating, fatigue, flushing, heatintolerance, increase in ring/shoe/hat size, palpitations, polydipsia, polyphagia, polyuria or other Hematologic/Lymphatic Hematologic/Lymphatic: Reports systems reviewed and no addt'l complaints, exceptas documented Allergic/Immunologic Allergic/Immunologic: Reports systems reviewed and no addt'l complaints, except as documented Intake Vital Signs 11/18/24 13:08 12/26/24 12:08 12/30/24 14:59 Height 5 ft 4 in 5 ft 4 in 5 ft 4 in Weight: 86.409 kg BMI 32.7 BP 149/99 H Blood Pressure Location Lt brachial Position Sitting Respiration 16 Pulse 72 Pulse Source Monitor Temp 98.7 F Temperature Source Temporal Artery Pulse Oximetry (%) 97 Oxygen Delivery Method room air Intake Is patient in pain?: No Allergies naproxen Allergy (Verified 12/30/24 15:06) Hives Medications ?Medication ?Instructions ?Recorded ?Confirmed ?Type aspirin 81 mg chewable tablet 81 mg PO DAILYCM heart h ealth #0 11/01/24 12/30/24 Rx tabs atorvastatin 80 mg tablet 80 mg PO QHS cholesterol #30 tabs 12/05/24 12/30/24 Rx bupropion HCl 300 mg 24 hr tablet, 300 mg PO DAILY #30 tabs 12/05/24 12/30/24 Rx extended release buspirone 10 mg tablet 10 mg PO TID #90 tabs 12/30/24 Rx duloxetine 30 mg capsule,delayed 30 mg PO DAILY #30 ca ps 12/05/24 12/30/24 Rx release lisinopril 10 mg tablet 10 mg PO DAILY blood pressur e #30 12/05/24 12/30/24 Rx tabs propranolol 40 mg tablet 40 mg PO BID #60 tabs 12/30/24 Rx gabapentin 100 mg capsule 100 mg PO QHS 12/30/24 Hist ory tizanidine 2 mg tablet 2 mg PO HS 12/30/24 History Exam Physical Exam Const alert, oriented x3 and no apparent distress HEENT normocephalic, external ears normal and external nose normal Eyes PERRL, conjunctivae normal and no scleral icterus Neck full ROM, no lymphadenopathy and supple Lymph Lymphatic: no lymphadenopathy noted Resp normal respiratory effort and clear to auscultation bilaterally Cardio regular rate, regular rhythm, S1 normal heart sound and S2 normal heart sound GI normal to inspection, nondistended, normoactive bowel sounds Back/Spine thoracic and lumbar spine normal to inspection Extremity no clubbing, cyanosis or edema Skin no rashes or lesions noted Neuro oriented x3, CN's II-XII intact bilaterally and moves all extremities Psych mental status grossly normal Coding Level of Care Code Off vis,new,level 4 Exam Problem Focused Diagnoses Acquired polycythemia D75.1 Assessment and Plan Assessment and Plan (1) Acquired polycythemia: Status: Chronic Comment: Acquired polycythemia, R/O P. Vera. Discussed evaluation of polycythemia and mutations associated with it. Patient agrees to proceed with workup. Plan: To repeat CBC, Erythropoietin level, JAK2 Exon 12-15, MPL. Orders: Orders CBC W/Diff, Automated Today D75.1 - Secondary polycythemia Erythropoietin Today D75.1 - Secondary polycythemia Plan Details Follow Up: 1 Week 12/30/24 1612 <Electronically signed by Shaun Roque> Date _ Shaun Del Angel MD Cosigner Signature: Date (if applicable) CC: ARSENIO NEWSPAPER CARRIERS SUPERVISOR-C Torri Zapata ~ [facility] Work Phone: Reason for referral (narrative)No reason for referral information [facility] Work Phone: Summary Purpose Family History No Family History Records Found Relationship Condition Age at Onset Recorded Date/T nay mother Hypertension Unknown Depression Unknown Anxiety Unknown Posttraumatic stress disorder Unknown Advance Directives No Advanced Directives Records Found Advance Directive Response Recorded Date/ Time Do you have a Healthcare Power of Vehicle Monitor Technician? No October 30, 2024 9:22pm Advance Directive Response Recorded Date/ Time Do you have a Healthcare Power of Vehicle Monitor Technician? No October 31, 2024 12:41am Advance Directive Response Recorded Date/ Time Do you have a Healthcare Power of Vehicle Monitor Technician? No October 31, 2024 12:41am Do you have a Healthcare Power of Vehicle Monitor Technician? No November 01, 2024 4:45pm Advance Directive Response Recorded Date/ Time Do you have a Healthcare Power of Vehicle Monitor Technician? No October 31, 2024 12:41am Do you have a Healthcare Power of Vehicle Monitor Technician? No November 04, 2024 6:02pm Do you have a Healthcare Power of Vehicle Monitor Technician? No November 01, 2024 4:45pm Advance Directive Response Recorded Date/ Time Do you have a Healthcare Power of Vehicle Monitor Technician? No October 31, 2024 12:41am Do you have a Healthcare Power of Vehicle Monitor Technician? No November 04, 2024 6:02pm Do you have a Healthcare Power of Vehicle Monitor Technician? No November 01, 2024 4:45pm Do you have a Healthcare Power of Vehicle Monitor Technician? No November 13, 2024 11:58am Advance Directive Response Recorded Date/ Time Do you have a Healthcare Power of Vehicle Monitor Technician? No October 31, 2024 12:41am Do you have a Healthcare Power of Vehicle Monitor Technician? No November 04, 2024 6:02pm Do you have a Healthcare Power of Vehicle Monitor Technician? Yes December 26, 2024 12:08pm Name of Medical Power of Vehicle Monitor Technician francheska oshea December 26, 2024 12:08pm Do you have a Healthcare Power of Vehicle Monitor Technician? No November 01, 2024 4:45pm Do you have a Healthcare Power of Vehicle Monitor Technician? No November 13, 2024 11:58am Chief Complaint and Reason for Visit Chief [...] 1:09pm Polycythemia November 04, 2024 1:0 9pm Chief Complaint Admit Date R FOOT INJURY [...] PAIN, RECENT CVA November 10, 2024 8:33am CVA, EVAL FOR UNDERLYING ARRHYTHMIA Aug2024 9:36am STROKE November 10, 2024 1: 53pm STROKE November 11, 2024 11 :12am STROKE November 12, 2024 3: 45pm STROKE November 14, 2024 3: 48pm STROKE November 18, 2024 10 :13am STROKE November 19, 2024 8: 19am STROKE November 21, 2024 2: 52pm STROKE November 22, 2024 11 :43am STROKE November 25, 2024 9: 53am STROKE November 26, 2024 10 :04am STROKE November 28, 2024 8: 27am STROKE December 01, 2024 9: 21am STROKE December 03, 2024 9:34am STROKE December 05, 2024 10:11am Reason for Visit Admit Date Contusion of right great toe without dam age to nail August 19, 2024 10:40am Strain of great toe, right August 19 10:40am Acute left-sided weakness October 30 11:35pm ADHD October 30, 2024 11:3 5pm Hypertension October 30, 2024 11:3 5pm Migraine headache October 30, 2024 11:3 5pm Polycythemia October 30, 2024 11:3 5pm Ischemic cerebrovascular accident (CVA) October 30, 2024 11:35pm Overweight (BMI 25.0-29.9) October 30 11:35pm Tobacco abuse October 30, 2024 11:3 5pm Debility November 01, 2024 3:1 8pm Stroke November 01, 2024 3:1 8pm ADHD November 01, 2024 3:1 8pm Allergic rhinitis November 01, 2024 3:1 8pm Migraine headache November 01, 2024 3:1 8pm Chest pain November 01, 2024 3:1 8pm Polycythemia November 01, 2024 3:1 8pm Essential (primary) hypertension November 01, 2024 3:18pm Ischemic cerebrovascular accident (CVA) November 01, 2024 3:18pm Left hemiplegia November 01, 2024 3:1 8pm Tobacco abuse November 01, 2024 3:1 8pm Chest pain November 04, 2024 1:0 9pm V-tach November 04, 2024 1:0 9pm Polycythemia November 04, 2024 1:0 9pm Essential (primary) hypertension November 04, 2024 1:09pm Ischemic cerebrovascular accident (CVA) November 04, 2024 1:09pm Abnormal LFTs November 10, 2024 1: 53pm Acute left-sided weakness November 10, 2 025 1:53pm Amphetamine use November 10, 2024 1: 53pm Central neuropathic pain November 10 1:53pm Debility November 10, 2024 1: 53pm Insomnia November 10, 2024 1: 53pm Neck pain on right side November 10 1:53pm Stroke November 10, 2024 1: 53pm Acquired polycythemia November 10, 2024 1:53pm ADHD November 10, 2024 1: 53pm Anxiety November 10, 2024 1: 53pm 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) November 10, 2024 1:53pm Hypertension November 10, 2024 1: 53pm Migraine headache November 10, 2024 1: 53pm V-tach November 10, 2024 1: 53pm Vaping nicotine dependence, non-tobacco product November 10, 2024 1:53pm Chief Complaint Admit Date R FOOT INJURY [...] PAIN, RECENT CVA November 10, 2024 8:33am 30 DAY MONITOR November 10, 2024 9: 00am CVA, EVAL FOR UNDERLYING ARRHYTHMIA Augu 2024 9:36am STROKE November 10, 2024 1: 53pm STROKE November 11, 2024 11 :12am STROKE November 12, 2024 3: 45pm STROKE November 14, 2024 3: 48pm STROKE November 18, 2024 10 :13am STROKE November 19, 2024 8: 19am STROKE November 21, 2024 2: 52pm STROKE November 22, 2024 11 :43am STROKE November 25, 2024 9: 53am STROKE November 26, 2024 10 :04am STROKE November 28, 2024 8: 27am STROKE December 01, 2024 9: 21am STROKE December 03, 2024 9:34am STROKE December 05, 2024 10:11am STROKE December 11, 2024 9:44am Chief Complaint Admit Date ISCHEMIC CVA WITH LEFT SIDED WEAKNESS Ju [...] PAIN, RECENT CVA November 10, 2024 8:33am DAY MONITOR November 10, 2024 9: 00am CVA, EVAL FOR UNDERLYING ARRHYTHMIA Augu st 2024 9:36am STROKE November 10, 2024 1: 53pm STROKE November 11, 2024 11 :12am STROKE November 12, 2024 3: 45pm STROKE November 14, 2024 3: 48pm STROKE November 18, 2024 10 :13am STROKE November 19, 2024 8: 19am STROKE November 21, 2024 2: 52pm STROKE November 22, 2024 11 :43am STROKE November 25, 2024 9: 53am STROKE November 26, 2024 10 :04am STROKE November 28, 2024 8: 27am STROKE December 01, 2024 9: 21am STROKE December 03, 2024 9:34am STROKE December 05, 2024 10:11am STROKE December 11, 2024 9:44am SHAKING December 26, 2024 12:01pm POLYCYTHEMIA December 30, 2024 2:56pm Reason for Visit Admit Date Acute left-sided weakness October 30 11:35pm ADHD October 30, 2024 11:3 5pm Hypertension October 30, 2024 11:3 5pm Migraine headache October 30, 2024 11:3 5pm Polycythemia October 30, 2024 11:3 5pm Ischemic cerebrovascular accident (CVA) October 30, 2024 11:35pm Overweight (BMI 25.0-29.9) October 30 11:35pm Tobacco abuse October 30, 2024 11:3 5pm Debility November 01, 2024 3:1 8pm Stroke November 01, 2024 3:1 8pm Chest pain November 01, 2024 3:1 8pm ADHD November 01, 2024 3:1 8pm Allergic rhinitis November 01, 2024 3:1 8pm Migraine headache November 01, 2024 3:1 8pm Polycythemia November 01, 2024 3:1 8pm Essential (primary) hypertension November 01, 2024 3:18pm Ischemic cerebrovascular accident (CVA) November 01, 2024 3:18pm Left hemiplegia November 01, 2024 3:1 8pm Tobacco abuse November 01, 2024 3:1 8pm Chest pain November 04, 2024 1:0 9pm V-tach November 04, 2024 1:0 9pm Polycythemia November 04, 2024 1:0 9pm Essential (primary) hypertension November 04, 2024 1:09pm Ischemic cerebrovascular accident (CVA) November 04, 2024 1:09pm Acute left-sided weakness November 10, 025 1:53pm Debility November 10, 2024 1: 53pm Stroke November 10, 2024 1: 53pm Acquired polycythemia November 10, 2024 1:53pm Anxiety November 10, 2024 1: 53pm 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 (CVA) November 10, 2024 1:53pm Abnormal LFTs November 10, 2024 1: 53pm Insomnia November 10, 2024 1: 53pm Neck pain on right side November 10 1:53pm V-tach November 10, 2024 1: 53pm Vaping nicotine dependence, non-tobacco product November 10, 2024 1:53pm ADHD November 10, 2024 1: 53pm Amphetamine use November 10, 2024 1: 53pm Central neuropathic pain November 10 1:53pm Hypertension November 10, 2024 1: 53pm Migraine headache November 10, 2024 1: 53pm Acute left-sided weakness December 9:44am Debility December 11, 2024 9:44am Stroke December 11, 2024 9:44am Acquired polycythemia December 11 9:44am Anxiety December 11, 2024 9:44am 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 (CVA) December 11, 2024 9:44am ADHD December 11, 2024 9:44am Central neuropathic pain December 11, 2024 9:44am Hypertension December 11, 2024 9:44am Migraine headache December 11, 2024 9:44am Acquired polycythemia December 30 2:56pm Chief Complaint Admit Date ISCHEMIC CVA WITH LEFT SIDED WEAKNESS Ju [...] PAIN, RECENT CVA November 10, 2024 8:33am 30 DAY MONITOR November 10, 2024 9: 00am CVA, EVAL FOR UNDERLYING ARRHYTHMIA Augu 2024 9:36am STROKE November 10, 2024 1: 53pm STROKE November 11, 2024 11 :12am STROKE November 12, 2024 3: 45pm STROKE November 14, 2024 3: 48pm STROKE November 18, 2024 10 :13am STROKE November 19, 2024 8: 19am STROKE November 21, 2024 2: 52pm STROKE November 22, 2024 11 :43am STROKE November 25, 2024 9: 53am STROKE November 26, 2024 10 :04am STROKE November 28, 2024 8: 27am STROKE December 01, 2024 9: 21am STROKE December 03, 2024 9:34am STROKE December 05, 2024 10:11am STROKE December 11, 2024 9:44am SHAKING December 26, 2024 12:01pm POLYCYTHEMIA December 30, 2024 2:56pm [facility] PR[facility] December 30, 2024 2:57pm Additional Source Comments Source Comments (unrecognize d section and content) In the event this informatio n is protected by the Federal Confidentiality of Alcohol and Drug Abuse Patient Records regulations: The Federal rules restrict any use of the information to criminally investigate or prosecute any alcohol or drug abuse patient.[facility] Reason for Visit (unrecogniz ed section and content) Reason Comments Shortness of Breath INFORMATION SOURCE (unrecogn ized section and content) DATE CREATED AUTHOR 11/28/2023 [facility] DATE CREATED AUTHOR AUTHOR'S ROHINI MEYERS 01/15/[address] [facility] Care [...] End: November 01, 2024 Dr. Domenico Silva DO Emergency Provider [...] 01, 2024 End: November 04, 2024 Dr. Nehemiah Horton DO [...] 2024 End: November 04, 2024 Jarred Garg NEWSPAPER CARRIERS SUPERVISOR, NEWSPAPER CARRIERS SUPERVISOR-C Other Provider Active Start : November 01, 2024 End: November 04, 2024 Danielle Ferro PA, PA Other Provider Active Start: November 01, 2024 End: November 04, 2024 STAN Baker Other Provider Active Start: November 01, 2024 End: November 04, 2024 Dr. Shaun Del Angel MD Other Provider Active Start : November 01, 2024 End: November 04, 2024 Dr. Netta Domingo DO Attending Provider Act brie Start: [...] Active Start: November 04, 2024 Jarred Garg NEWSPAPER CARRIERS SUPERVISOR, NEWSPAPER CARRIERS SUPERVISOR-C Other Provider Active Start : November 04, 2024 Danielle Ferro PA, PA Other Provider Active Start: November 04, 2024 STAN Baker Other Provider Active Start: November 04, 2024 Dr. Shaun Del Angel MD Other Provider Active Start : November 04, 2024 Dr. Kaleb Horta DO Other Provider Active Start: November 04, 2024 Dr. Netta Domingo DO Attending Provider Act bire Start: November 04, 2024 Team Status: Active [...] Active Start: November 04, 2024 Jarred Garg NEWSPAPER CARRIERS SUPERVISOR, NEWSPAPER CARRIERS SUPERVISOR-C Other Provider Active Start : November 04, 2024 Danielle PIERCE, PA Other Provider Active Start: November 04, 2024 STAN Baker Other Provider Active Start: November 04, 2024 Dr. Shaun Del Angel MD Other Provider Active Start : November 04, 2024 Dr. Netta Domingo DO Other Provider Active Start: November [...] 2024 End: November 10, 2024 Angelica Lawson NEWSPAPER CARRIERS SUPERVISOR, NEWSPAPER CARRIERS SUPERVISOR-C Other Provider Active St art: November 04, [...] Active Sta rt: November 04, 2024 Dr. Aubery Saxena DO Other Provider Active Sta rt: November 04, 2024 Angelica Lawson NEWSPAPER CARRIERS SUPERVISOR, NEWSPAPER CARRIERS SUPERVISOR-C Other Provider Active St art: November 04, [...] Active Sta rt: November 05, 2024 Angelica Lawson NP, NEWSPAPER CARRIERS SUPERVISOR-C Other Provider Active St art: November 05, [...] Provider Active Start: November 06, 2024 Dr. Kaelb Horta DO Other Provider Active Start: November [...] Sta rt: November 06, 2024 Angelica Lawson NEWSPAPER CARRIERS SUPERVISOR, NEWSPAPER CARRIERS SUPERVISOR-C Other Provider Active St art: November 06, [...] rt: November 06, 2024 Dr. Aubrey Saxena , Other Provider Active Sta rt: November 06, 2024 Angelica Lawson NEWSPAPER CARRIERS SUPERVISOR, NEWSPAPER CARRIERS SUPERVISOR-C Other Provider Active St art: November 06, [...] Start: November 07, 2024 Dr. Kaleb Horta , DO Admit Provider Active Start: November 07, [...] Active Sta rt: November 07, 2024 Angelica Lawson NEWSPAPER CARRIERS SUPERVISOR, NEWSPAPER CARRIERS SUPERVISOR-C Other Provider Active St art: November 07, [...] November 08, 2024 Dr. Kaleb Horta , DO Admit Provider Active Start: November 08, 2024 [...] rt: November 08, 2024 Dr. Aubrey Saxena DO Other Provider Active Sta rt: November 08, 2024 Angelica Lawson NP, NEWSPAPER CARRIERS SUPERVISOR-C Other Provider Active St art: November 08, [...] Sta rt: November 09, 2024 Angelica Lawson NP, NEWSPAPER CARRIERS SUPERVISOR-C Other Provider Active St art: November 09, [...] Start: November 10, 2024 Dr. Kaleb Horta , Admit Provider Active Start: November 10, 2024 [...] Sta rt: November 10, 2024 Angelica Lawson NEWSPAPER CARRIERS SUPERVISOR, NEWSPAPER CARRIERS SUPERVISOR-C Other Provider Active St art: November 10, 2024 Dr. Law Eduardo MD Other Provider Active Start : November 10, 2024 Dr. Nehemiah Hammond MD Attending Provider Active Start: November 10, 2024 Dr. Nehemiah Hammond MD Other Provider Active Star t: November 10, 2024 Team Status: Active Member [...] rt: November 05, 2024 Dr. Aubrey Saxena , Other Provider Active Sta rt: November 05, 2024 Angelica Lawson NEWSPAPER CARRIERS SUPERVISOR, NEWSPAPER CARRIERS SUPERVISOR-C Other Provider Active St art: November 05, [...] Active Star t: November 06, 2024 Dr. Jnoathan Pérez MD Other Provider Active Start: A ugust 2024 Dr. Aaron Crooks MD Other Provider Active Sta rt: November 06, 2024 Dr. Aubrey Saxena DO Other Provider Active Sta rt: November 06, 2024 Angelica Lawson NEWSPAPER CARRIERS SUPERVISOR, NEWSPAPER CARRIERS SUPERVISOR-C Other Provider Active St art: November 06, [...] Provider Active Sta rt: November 07, 2024 Angelicachristina Lawson NEWSPAPER CARRIERS SUPERVISOR, NEWSPAPER CARRIERS SUPERVISOR-C Other Provider Active St art: November 07, [...] November 08, 2024 Dr. Kaleb Horta DO Admit Provider Active Start: November 08, 2024 [...] rt: November 08, 2024 Dr. Aubrey Saxena DO Other Provider Active Sta rt: November 08, 2024 Angelica Lawson NEWSPAPER CARRIERS SUPERVISOR, NEWSPAPER CARRIERS SUPERVISOR-C Other Provider Active St art: November 08, [...] Sta rt: November 09, 2024 Angelica Lawson NEWSPAPER CARRIERS SUPERVISOR, NEWSPAPER CARRIERS SUPERVISOR-C Other Provider Active St art: November 09, [...] Sta rt: November 10, 2024 Angelica Lawson NEWSPAPER CARRIERS SUPERVISOR, NEWSPAPER CARRIERS SUPERVISOR-C Other Provider Active St art: November 10, 2024 Dr. Law Eduardo MD Other Provider Active Start : November 10, 2024 Dr. Nehemiah Hammond MD Attending Provider Active Start: November 10, 2024 Dr. Nehemiah Hammond MD Other Provider Active Star t: November 10, 2024 Team Status: Active Member Role/Relationship Status Dates Dr. Vee Stuart MD Attending Provider Active Start: November 10, 2024 Dr. Vee Stuart MD Referring Provider Active Start: November 10, 2024 No Primary Care Physician Primary Care Provider Active Start: November 10, 2024 Team Status: Inactive Member Role/Relationship Status Dates No Primary Care Physician Primary Care Provider Active Start: November 10, 2024 End: December 05, 2024 Dr. Netta Domingo DO Admit Provider Active Start: November 10, 2024 End: December 05, 2024 Dr. Netta Domingo DO Attending Provider Active Start: November 10, 2024 End: December 05, 2024 Team Status: Active Member Role/Relationship Status Dates No Primary Care Physician Primary Care Provider Active Start: November 11, 2024 Dr. Netta Domingo DO Admit Provider Active Start: November 11, 2024 Dr. Netta Domingo DO Other Provider Active Start: November 11, 2024 Sandra Francisco NP-C Attending Provider Act brie Start: November 11, 2024 Team Status: Active Member Role/Relationship Status Dates No Primary Care Physician Primary Care Provider Active Start: November 12, 2024 Dr. Netta Domingo DO Admit Provider Active Start: November 12, 2024 Dr. Netta Domingo DO Attending Provider Act brie Start: November 12, 2024 Dr. Netta Domingo DO Other Provider Active Start: November 12, 2024 Team Status: Active Member Role/Relationship Status Dates No Primary Care Physician Primary Care Provider Active Start: November 14, 2024 Dr. Netta Domingo DO Admit Provider Active Start: November 14, 2024 Dr. Netta Domingo DO Attending Provider Act brie Start: November 14, 2024 Dr. Netta Domingo DO Other Provider Active Start: November 14, 2024 Team Status: Active Member Role/Relationship Status Dates No Primary Care Physician Primary Care Provider Active Start: November 18, 2024 Dr. Netta Domingo DO Admit Provider Active Start: November 18, 2024 Dr. Netta Domingo DO Attending Provider Act brie Start: November 18, 2024 Dr. Netta Domingo , DO Other Provider Active Start: November 18, 2024 Team Status: Active Member Role/Relationship Status Dates No Primary Care Physician Primary Care Provider Active Start: November 19, 2024 Dr. Netta Domingo DO Admit Provider Active Start: November 19, 2024 Dr. Netta Domingo , DO Attending Provider Act rbie Start: November 19, 2024 Dr. Netta Domingo DO Other Provider Active Start: November 19, 2024 Team Status: Active Member Role/Relationship Status Dates No Primary Care Physician Primary Care Provider Active Start: November 21, 2024 Dr. Netta Domingo DO Admit Provider Active Start: November 21, 2024 Dr. Netta Domingo , DO Attending Provider Act brie Start: November 21, 2024 Dr. Netta Domingo DO Other Provider Active Start: November 21, 2024 Team Status: Active Member Role/Relationship Status Dates No Primary Care Physician Primary Care Provider Active Start: November 22, 2024 Dr. Netta Domingo DO Admit Provider Active Start: November 22, 2024 Dr. Netta Domingo DO Attending Provider Act brie Start: November 22, 2024 Dr. Netta Domingo DO Other Provider Active Start: November 22, 2024 Team Status: Active Member Role/Relationship Status Dates No Primary Care Physician Primary Care Provider Active Start: November 25, 2024 Dr. Netta Domingo DO Admit Provider Active Start: November 25, 2024 Dr. Netta Domingo DO Attending Provider Act brie Start: November 25, 2024 Dr. Netta Domingo DO Other Provider Active Start: November 25, 2024 Team Status: Active Member Role/Relationship Status Dates No Primary Care Physician Primary Care Provider Active Start: November 26, 2024 Dr. Netta Domingo DO Admit Provider Active Start: November 26, 2024 Dr. Netta Domingo DO Attending Provider Act brie Start: November 26, 2024 Dr. Netta Domingo , DO Other Provider Active Start: November 26, 2024 Team Status: Active Member Role/Relationship Status Dates No Primary Care Physician Primary Care Provider Active Start: November 28, 2024 Dr. Netta Domingo , DO Admit Provider Active Start: November 28, 2024 Dr. Netta Domingo DO Attending Provider Act brie Start: November 28, 2024 Dr. Netta Domingo DO Other Provider Active Start: November 28, 2024 Team Status: Active Member Role/Relationship Status Dates No Primary Care Physician Primary Care Provider Active Start: December 01, 2024 Dr. Netta Dmoingo DO Admit Provider Active Start: December 01, 2024 Dr. Netta Domingo DO Attending Provider Act brie Start: December 01, 2024 Dr. Netta Domingo DO Other Provider Active Start: December 01, 2024 Team Status: Active Member Role/Relationship Status Dates No Primary Care Physician Primary Care Provider Active Start: December 03, 2024 Dr. Netta Domingo DO Admit Provider Active Start: December Dr. Netta Domingo DO Attending Provider Active Start: December Dr. Netta Domingo DO Other Provider Active Start: December Team Status: Active Member Role/Relationship Status Dates No Primary Care Physician Primary Care Provider Active Start: December 05, 2024 Dr. Netta Domingo DO Admit Provider Active Start: December Dr. Netta Domingo DO Attending Provider Active Start: December Dr. Netta Domingo DO Other Provider Active Start: December Team Status: Active Member Role/Relationship Status Dates No Primary Care Physician Primary Care Provider Active Start: November 10, 2024 Dr. Law Eduardo MD Attending Provider Active S tart: November 10, 2024 Dr. Law Eduardo MD Referring Provider Active S tart: November 10, 2024 Team Status: Active Member Role/Relationship Status Dates Dr. Vee Stuart MD Attending Provider Active Start: November 10, 2024 Dr. Vee Stuart MD Referring Provider Active Start: November 10, 2024 No Primary Care Physician Primary Care Provider Active Start: November 10, 2024 Team Status: Inactive Member Role/Relationship Status Dates No Primary Care Physician Primary Care Provider Active Start: November 10, 2024 End: December 05, 2024 Dr. Netta Domingo DO Admit Provider Active Start: November 10, 2024 End: December 05, 2024 Dr. Netta Domingo DO Attending Provider Active Start: November 10, 2024 End: December 05, 2024 Team Status: Active Member Role/Relationship Status Dates No Primary Care Physician Primary Care Provider Active Start: November 11, 2024 Dr. Netta Domingo DO Admit Provider Active Start: November 11, 2024 Dr. Netta Domingo DO Other Provider Active Start: November 11, 2024 ABELARDO Perez Attending Provider Act brie Start: November 11, 2024 Team Status: Active Member Role/Relationship Status Dates No Primary Care Physician Primary Care Provider Active Start: November 12, 2024 Dr. Netta Domingo DO Admit Provider Active Start: November 12, 2024 Dr. Netta Domingo DO Attending Provider Act brie Start: November 12, 2024 Dr. Netta Domingo DO Other Provider Active Start: November 12, 2024 Team Status: Active Member Role/Relationship Status Dates No Primary Care Physician Primary Care Provider Active Start: November 14, 2024 Dr. Netta Domingo DO Admit Provider Active Start: November 14, 2024 Dr. Netta Domingo DO Attending Provider Act brie Start: November 14, 2024 Dr. Netta Domingo DO Other Provider Active Start: November 14, 2024 Team Status: Active Member Role/Relationship Status Dates No Primary Care Physician Primary Care Provider Active Start: November 18, 2024 Dr. Netta Domingo DO Admit Provider Active Start: November 18, 2024 Dr. Netta Domingo DO Attending Provider Act brie Start: November 18, 2024 Dr. Netta Domingo DO Other Provider Active Start: November 18, 2024 Team Status: Active Member Role/Relationship Status Dates No Primary Care Physician Primary Care Provider Active Start: November 19, 2024 Dr. Netta Domingo , DO Admit Provider Active Start: November 19, 2024 Dr. Netta Domingo , DO Attending Provider Act brie Start: November 19, 2024 Dr. Netta Domingo , DO Other Provider Active Start: November 19, 2024 Team Status: Active Member Role/Relationship Status Dates No Primary Care Physician Primary Care Provider Active Start: November 21, 2024 Dr. Netta Domingo , DO Admit Provider Active Start: November 21, 2024 Dr. Netta Domingo , DO Attending Provider Act brie Start: November 21, 2024 Dr. Netta Domingo , DO Other Provider Active Start: November 21, 2024 Team Status: Active Member Role/Relationship Status Dates No Primary Care Physician Primary Care Provider Active Start: November 22, 2024 Dr. Netta Domingo , DO Admit Provider Active Start: November 22, 2024 Dr. Netta Domingo , DO Attending Provider Act brie Start: November 22, 2024 Dr. Netta Domingo , Other Provider Active Start: November 22, 2024 Team Status: Active Member Role/Relationship Status Dates No Primary Care Physician Primary Care Provider Active Start: November 25, 2024 Dr. Netta Domingo DO Admit Provider Active Start: November 25, 2024 Dr. Netta Domingo DO Attending Provider Act brie Start: November 25, 2024 Dr. Netta Domingo , DO Other Provider Active Start: November 25, 2024 Team Status: Active Member Role/Relationship Status Dates No Primary Care Physician Primary Care Provider Active Start: November 26, 2024 Dr. Netta Domingo , DO Admit Provider Active Start: November 26, 2024 Dr. Netta Domingo , DO Attending Provider Act brie Start: November 26, 2024 Dr. Netta Domingo , DO Other Provider Active Start: November 26, 2024 Team Status: Active Member Role/Relationship Status Dates No Primary Care Physician Primary Care Provider Active Start: November 28, 2024 Dr. Netta Domingo DO Admit Provider Active Start: November 28, 2024 Dr. Netta Domingo , DO Attending Provider Act brie Start: November 28, 2024 Dr. Netta Domingo DO Other Provider Active Start: November 28, 2024 Team Status: Active Member Role/Relationship Status Dates No Primary Care Physician Primary Care Provider Active Start: December 01, 2024 Dr. Netta Domingo DO Admit Provider Active Start: December 01, 2024 Dr. Netta Domingo DO Attending Provider Act brie Start: December 01, 2024 Dr. Netta Domingo DO Other Provider Active Start: December 01, 2024 Team Status: Active Member Role/Relationship Status Dates No Primary Care Physician Primary Care Provider Active Start: December 03, 2024 Dr. Netta Domingo DO Admit Provider Active Start: December Dr. Netta Domingo DO Attending Provider Active Start: December Dr. Netta Domingo DO Other Provider Active Start: December Team Status: Active Member Role/Relationship Status Dates No Primary Care Physician Primary Care Provider Active Start: December 05, 2024 Dr. Netta Domingo DO Admit Provider Active Start: December Dr. Netta Domingo DO Attending Provider Active Start: December Dr. Netta Domingo DO Other Provider Active Start: December Team Status: Inactive Member Role/Relationship Status Dates No Primary Care Physician Primary Care Provider Active Start: December 11, 2024 End: December 11, 2024 No Primary Care Physician Referring Provider Active Start: December 11, 2024 End: December 11, 2024 ABELARDO Rosen Attending Provider Active S tart: December 11, 2024 End: December 11, 2024 Team Status: Active Member Role/Relationship Status Dates Torri CESAR [employer]OR-C Primary care physician Acti ve Team Status: Inactive Member Role/Relationship Status Dates No Primary Care Physician Primary care physician Activ e Start: October 30, 2024 End: November 01, 2024 Dr. Domenico Silva , DO Emergency Departm ent Physician Active Start: October 30, 2024 End: November 01, 2024 Dr. Nehemiah Haney , DO Admitting physician Active Start: October 30, 2024 End: November 01, 2024 Dr. Nehemiah Haney , DO Nurse Practitioner Active Start: October 30, 2024 End: November 01, 2024 David Gale MD Nurse Practitioner Active Start : October 30, 2024 End: November 01, 2024 Dr. Ehsan Uriarte MD Nurse Practitioner Active St art: October 30, 2024 End: November 01, 2024 Sheeba Rodriguez MD Nurse Practitioner Active S tart: October 30, 2024 End: November 01, 2024 Dr. Lydia Orantes DO Nurse Practitioner Active Start: October 30, 2024 End: November 01, 2024 Dr. Renee Cleveland MD Nurse Practitioner Active St art: October 30, 2024 End: November 01, 2024 Dr. Kyle Ghosh MD Nurse Practitioner Active Start: October 30, 2024 End: November 01, 2024 Dr. Leidy Mckinnon MD Nurse Practitioner Active S tart: October 30, 2024 End: November 01, 2024 Dr. Reagan White MD Nurse Practitioner Active St art: October 30, 2024 End: November 01, 2024 Dr. Tong Rai MD Nurse Practitioner Active S tart: October 30, 2024 End: November 01, 2024 Dr. Juaquin Campos MD Nurse Practitioner Active Start: October 30, 2024 End: November 01, 2024 Shakira Anthony MD Nurse Practitioner Active S tart: October 30, 2024 End: November 01, 2024 Dr. Aaron Chavez MD Nurse Practitioner Active Start: October 30, 2024 End: November 01, 2024 Dr. Sherry Lugo MD Nurse Practitioner Active S tart: October 30, 2024 End: November 01, 2024 Dr. Natalya Arredondo MD Nurse Practitioner Active Start: October 30, 2024 End: November 01, 2024 Dr. Hemanth Reyna MD Nurse Practitioner Active Start: October 30 End: November 01, 2024 Dr. Ajay Johnson MD Nurse Practitioner Active Start: October 30, 2024 End: November 01, 2024 Dr. Melissa Haywood MD Nurse Practitioner Active Start: October 30, 2024 End: November 01, 2024 Dr. Isac Leiv MD Nurse Practitioner Active Start: October 30, 2024 End: November 01, 2024 Dr. Meme Pepe MD Nurse Practitioner Active St art: October 30, 2024 End: November 01, 2024 Mark Garcisa MD Nurse Practitioner Active St art: October 30, 2024 End: November 01, 2024 Dr. Vee Stuart MD Attending physician Active Start: October 30, 2024 End: November 01, 2024 Dr. Sen Clarke MD Nurse Practitioner Active Start: October 30 End: November 01, 2024 Team Status: Active Member Role/Relationship Status Dates No Primary Care Physician Primary care physician Activ e Start: October 31, 2024 Dr. Domenico Silva , DO Emergency Departm ent Physician Active Start: October 31, 2024 Dr. Nehemiah Haney , DO Admitting physician Active Start: October 31, 2024 Dr. Nehemiah Haney , Nurse Practitioner Active Start: October 31, 2024 David Gale MD Nurse Practitioner Active Start : October 31, 2024 Dr. Ehsan Uriarte MD Nurse Practitioner Active St art: October 31, 2024 Sheeba Rodriguez MD Nurse Practitioner Active S tart: October 31, 2024 Dr. Lydia Orantes , Nurse Practitioner Active Start: October 31, 2024 Dr. Renee Cleveland MD Nurse Practitioner Active St art: October 31, 2024 Dr. Kyle Ghosh MD Nurse Practitioner Active Start: October 31, 2024 Dr. Leidy Mckinnon MD Nurse Practitioner Active S tart: October 31, 2024 Dr. Reagan White MD Nurse Practitioner Active St art: October 31, 2024 Dr. Tong Rai MD Nurse Practitioner Active S tart: October 31, 2024 Dr. Juaquin Campos MD Nurse Practitioner Active Start: October 31, 2024 Shakira Anthony MD Nurse Practitioner Active S tart: October 31, 2024 Dr. Aaron Chavez MD Nurse Practitioner Active Start: October 31, 2024 Dr. Sherry Lugo MD Nurse Practitioner Active S tart: October 31, 2024 Dr. Natalya Arredondo MD Nurse Practitioner Active Start: October 31, 2024 Dr. Hemanth Reyna MD Nurse Practitioner Active Start: October 31 Dr. Ajay Johnson MD Nurse Practitioner Active Start: October 31, 2024 Dr. Melissa Haywood MD Nurse Practitioner Active Start: October 31, 2024 Dr. Isac Levi MD Nurse Practitioner Active Start: October 31, 2024 Dr. Meme Pepe MD Nurse Practitioner Active St art: October 31, 2024 Mark Garcias MD Nurse Practitioner Active St art: October 31, 2024 Dr. Sen Clarke MD Attending physician Active Start: October 31 Dr. Sen Clarke MD Nurse Practitioner Active Start: October 31 Team Status: Active Member Role/Relationship Status Dates No Primary Care Physician Primary care physician Activ e Start: October 31, 2024 Dr. Law Eduardo MD Attending physician Active Start: October 31, 2024 Team Status: Active Member Role/Relationship Status Dates No Primary Care Physician Primary care physician Activ e Start: November 01, 2024 Dr. Law Eduardo MD Attending physician Active Start: November 01, 2024 Team Status: Active Member Role/Relationship Status Dates No Primary Care Physician Primary care physician Activ e Start: November 01, 2024 Dr. Domenico Silva , DO Emergency Departm ent Physician Active Start: November 01, 2024 Dr. Nehemiah Haney , DO Admitting physician Active Start: November 01, 2024 Dr. Nehemiah Haney , Nurse Practitioner Active Start: November 01, 2024 David Gale MD Nurse Practitioner Active Start : November 01, 2024 Dr. Ehsan Uriarte MD Nurse Practitioner Active St art: November 01, 2024 Sheeba Rodriguez MD Nurse Practitioner Active S tart: November 01, 2024 Dr. Lydia Orantes DO Nurse Practitioner Active Start: November 01, 2024 Dr. Renee Cleveland MD Nurse Practitioner Active St art: November 01, 2024 Dr. Kyle Ghosh MD Nurse Practitioner Active Start: November 01, 2024 Dr. Leidy Mckinnon MD Nurse Practitioner Active S tart: November 01, 2024 Dr. Reagan White MD Nurse Practitioner Active St art: November 01, 2024 Dr. Tong Rai MD Nurse Practitioner Active S tart: November 01, 2024 Dr. Juaquin Campos MD Nurse Practitioner Active Start: November 01, 2024 Shakira Anthony MD Nurse Practitioner Active S tart: November 01, 2024 Dr. Aaron Chavez MD Nurse Practitioner Active Start: November 01, 2024 Dr. Sherry Lugo MD Nurse Practitioner Active S tart: November 01, 2024 Dr. Natalya Arredondo MD Nurse Practitioner Active Start: November 01, 2024 Dr. Hemanth Reyna MD Nurse Practitioner Active Start: November 01, 2024 Dr. Ajay Johnson MD Nurse Practitioner Active Start: November 01, 2024 Dr. Melissa Haywood MD Nurse Practitioner Active Start: November 01, 2024 Dr. Isac Levi MD Nurse Practitioner Active Start: November 01, 2024 Dr. Meme Pepe MD Nurse Practitioner Active St art: November 01, 2024 Mark Garcias MD Nurse Practitioner Active St art: November 01, 2024 Dr. Vee Stuart MD Attending physician Active Start: November 01, 2024 Dr. Vee Stuart MD Nurse Practitioner Active Start: November 01, 2024 Dr. Sen Clarke MD Nurse Practitioner Active Start: November 01, 2024 Team Status: Inactive Member Role/Relationship Status Dates No Primary Care Physician Primary care physician Activ e Start: November 01, 2024 End: November 04, 2024 Dr. Luis Ravi MD Admitting physician Active Start: November 01, 2024 End: November 04, 2024 Dr. Luis Ravi MD Nurse Practitioner Active Start: November 01, 2024 End: November 04, 2024 Dr. Lori Hay MD Nurse Practitioner Active St art: November 01, 2024 End: November 04, 2024 Dr. Kanwal Rodríguez MD Nurse Practitioner Active S tart: November 01, 2024 End: November 04, 2024 Dr. Eulalia Carpio MD Nurse Practitioner Active Start: November 01, 2024 End: November 04, 2024 Dr. Susan Salas MD Nurse Practitioner Active Start: November 01, 2024 End: November 04, 2024 Dr. Maurilio Rivera MD Nurse Practitioner Active Start: November 01, 2024 End: November 04, 2024 Dr. Pedro Hong MD Nurse Practitioner Active Start: November 01, 2024 End: November 04, 2024 Dr. Law Eduardo MD Nurse Practitioner Active S tart: November 01, 2024 End: November 04, 2024 Dr. Nehemiah Horton , Nurse Practitioner Active Start: November 01, 2024 End: November 04, 2024 Dr. Pratima Arrieta MD Nurse Practitioner Active Start: November 01, 2024 End: November 04, 2024 Dr. Chevy Gann MD Nurse Practitioner Active Start: November 01, 2024 End: November 04, 2024 Dr. Abigail Guerrero MD Nurse Practitioner Activ e Start: November 01, 2024 End: November 04, 2024 Dr. Ellis Jerome MD Nurse Practitioner Active Start: November 01, 2024 End: November 04, 2024 Dr. Nghia Hdez MD Nurse Practitioner Active Start: November 01, 2024 End: November 04, 2024 Jarred Garg [employer] SUPERVISOR, [employer] SUPER[employer]OR-C Nurse Practitioner Active S tart: November 01, 2024 End: November 04, 2024 Danielle Ferro PA, PA Nurse Practitioner Active Start: November 01, 2024 End: November 04, 2024 STAN Baker Nurse Practitioner Active St art: November 01, 2024 End: November 04, 2024 Dr. Shaun Del Angel MD Nurse Practitioner Active S tart: November 01, 2024 End: November 04, 2024 Dr. Netta Domingo DO Attending physician Ac tive Start: November 01, 2024 End: November 04, 2024 Dr. Kaleb Horta DO Nurse Practitioner Active Start: November 01, 2024 End: November 04, 2024 Team Status: Active Member Role/Relationship Status Dates No Primary Care Physician Primary care physician Activ e Start: November 04, 2024 Dr. Luis Ravi MD Admitting physician Active Start: November 04, 2024 Dr. Luis Ravi MD Nurse Practitioner Active Start: November 04, 2024 Dr. Lori Hay MD Nurse Practitioner Active St art: November 04, 2024 Dr. Kanwal Rodríguez MD Nurse Practitioner Active S tart: November 04, 2024 Dr. Eulalia Carpio MD Nurse Practitioner Active Start: November 04, 2024 Dr. Susan Salsa MD Nurse Practitioner Active Start: November 04, 2024 Dr. Maurilio Rivera MD Nurse Practitioner Active Start: November 04, 2024 Dr. Pedro Hong MD Nurse Practitioner Active Start: November 04, 2024 Dr. Law Eduardo MD Nurse Practitioner Active S tart: November 04, 2024 Dr. Nehemiah Horton , Nurse Practitioner Active Start: November 04, 2024 Dr. Pratima Arrieta MD Nurse Practitioner Active Start: November 04, 2024 Dr. Chevy Gann MD Nurse Practitioner Active Start: November 04, 2024 Dr. Abigail Guerrero MD Nurse Practitioner Activ e Start: November 04, 2024 Dr. Ellis Jerome MD Nurse Practitioner Active Start: November 04, 2024 Dr. Nghia Hdez MD Nurse Practitioner Active Start: November 04, 2024 Jarred Garg [employer] SUPERVISOR, [employer] SUPERVISOR-C Nurse Practitioner Active S tart: November 04, 2024 Danielle Ferro PA, PA Nurse Practitioner Active Start: November 04, 2024 STAN Baker Nurse Practitioner Active St art: November 04, 2024 Dr. Shaun Del Angel MD Nurse Practitioner Active S tart: November 04, 2024 Dr. Kaleb Horta , Nurse Practitioner Active Start: November 04, 2024 Dr. Netta Domingo DO Attending physician Ac tive Start: November 04, 2024 Team Status: Active Member Role/Relationship Status Dates No Primary Care Physician Primary care physician Activ e Start: November 04, 2024 Dr. Luis Ravi MD Admitting physician Active Start: November 04, 2024 Dr. Luis Ravi MD Nurse Practitioner Active Start: November 04, 2024 Dr. Lori Hay MD Nurse Practitioner Active St art: November 04, 2024 Dr. Kanwal Rodríguez MD Nurse Practitioner Active S tart: November 04, 2024 Dr. Eulalia Carpio MD Nurse Practitioner Active Start: November 04, 2024 Dr. Susan Salas MD Nurse Practitioner Active Start: November 04, 2024 Dr. Maurilio Rivera MD Nurse Practitioner Active Start: November 04, 2024 Dr. Pedro Hong MD Nurse Practitioner Active Start: November 04, 2024 Dr. Law Eduardo MD Attending physician Active Start: November 04, 2024 Dr. Law Eduardo MD Nurse Practitioner Active S tart: November 04, 2024 Dr. Nehemiah Horton DO Nurse Practitioner Active Start: November 04, 2024 Dr. Pratima Arrieta MD Nurse Practitioner Active Start: November 04, 2024 Dr. Chevy Gann MD Nurse Practitioner Active Start: November 04, 2024 Dr. Abigail Guerrero MD Nurse Practitioner Activ e Start: November 04, 2024 Dr. Ellis Jerome MD Nurse Practitioner Active Start: November 04, 2024 Dr. Nghia Hdez MD Nurse Practitioner Active Start: November 04, 2024 Jarred Garg [employer] SUPERVISOR, [employer] SUPERVISOR-C Nurse Practitioner Active S tart: November 04, 2024 Danielle Ferro PA, PA Nurse Practitioner Active Start: November 04, 2024 STAN Baker Nurse Practitioner Active St art: November 04, 2024 Dr. Shaun Del Angel MD Nurse Practitioner Active S tart: November 04, 2024 Dr. Netta Domingo DO Nurse Practitioner Act brie Start: November 04, 2024 Dr. Kaleb Horta DO Nurse Practitioner Active Start: November 04, 2024 Team Status: Inactive Member Role/Relationship Status Dates No Primary Care Physician Primary care physician Activ e Start: November 04, 2024 End: November 10, 2024 Dr. Kaleb Horta DO Admitting physician Activ e Start: November 04, 2024 End: November 10, 2024 Dr. Kaleb Horta DO Referring Provider Active Start: November 04, 2024 End: November 10, 2024 Dr. Kaleb Horta DO Nurse Practitioner Active Start: November 04, 2024 End: November 10, 2024 Dr. Nehemiah Ugarte MD Nurse Practitioner Active Start: November 04, 2024 End: November 10, 2024 Dr. Shaun Del Angel MD Nurse Practitioner Active S tart: November 04, 2024 End: November 10, 2024 Dr. Trae Washington MD Nurse Practitioner Active Start: November 04, 2024 End: November 10, 2024 Dr. Ann Andrews MD Nurse Practitioner Active Start: November 04, 2024 End: November 10, 2024 Dr. Chase Mccauley MD Nurse Practitioner Active Start: November 04, 2024 End: November 10, 2024 Dr. Jonathan Pérez MD Nurse Practitioner Active Star t: November 04, 2024 End: November 10, 2024 Dr. Aaron Crooks MD Nurse Practitioner Active Start: November 04, 2024 End: November 10, 2024 Dr. Aubrey Saxena DO Nurse Practitioner Active Start: November 04, 2024 End: November 10, 2024 Angelica Lawson [employer] SUPERVISOR, [employer] SUPERVISOR-C Nurse Practitioner Active Start: November 04, 2024 End: November 10, 2024 Dr. Law Eduardo MD Nurse Practitioner Active S tart: November 04, 2024 End: November 10, 2024 Dr. Nehemiah Hammond MD Attending physician Active Start: November 04, 2024 End: November 10, 2024 Team Status: Active Member Role/Relationship Status Dates No Primary Care Physician Primary care physician Activ e Start: November 04, 2024 Dr. Kaleb Horta , Admitting physician Activ e Start: November 04, 2024 Dr. Kaleb Horta DO Referring Provider Active Start: November 04, 2024 Dr. Kaleb Horta DO Nurse Practitioner Active Start: November 04, 2024 Dr. Nehemiah Ugarte MD Nurse Practitioner Active Start: November 04, 2024 Dr. Shaun Del Angel MD Attending physician Active Start: November 04, 2024 Dr. Shaun Del Angel MD Nurse Practitioner Active S tart: November 04, 2024 Dr. Trae Washington MD Nurse Practitioner Active Start: November 04, 2024 Dr. Ann Andrews MD Nurse Practitioner Active Start: November 04, 2024 Dr. Chase Mccauley MD Nurse Practitioner Active Start: November 04, 2024 Dr. Jonathan Pérez MD Nurse Practitioner Active Star t: November 04, 2024 Dr. Aaron Crooks MD Nurse Practitioner Active Start: November 04, 2024 Dr. Aubrey Saxena DO Nurse Practitioner Active Start: November 04, 2024 Angelica Lawson NP, [employer] SUPERVISOR-C Nurse Practitioner Active Start: November 04, 2024 Dr. Law Eduardo MD Nurse Practitioner Active S tart: November 04, 2024 Team Status: Active Member Role/Relationship Status Dates No Primary Care Physician Primary care physician Activ e Start: November 05, 2024 Dr. Kaleb Horta DO Admitting physician Activ e Start: November 05, 2024 Dr. Kaleb Horta DO Nurse Practitioner Active Start: November 05, 2024 Dr. Nehemiah Ugarte MD Nurse Practitioner Active Start: November 05, 2024 Dr. Shaun Del Angel MD Nurse Practitioner Active S tart: November 05, 2024 Dr. Trae Washington MD Nurse Practitioner Active Start: November 05, 2024 Dr. Ann Andrews MD Nurse Practitioner Active Start: November 05, 2024 Dr. Chase Mccauley MD Nurse Practitioner Active Start: November 05, 2024 Dr. Jonathan Pérez MD Nurse Practitioner Active Star t: November 05, 2024 Dr. Aaron Crooks MD Nurse Practitioner Active Start: November 05, 2024 Dr. Aubrey Saxena DO Nurse Practitioner Active Start: November 05, 2024 Angelica Lawson [employer], [employer]-C Nurse Practitioner Active Start: November 05, 2024 Dr. Law Eduardo MD Nurse Practitioner Active S tart: November 05, 2024 Dr. Nehemiah Hammond MD Attending physician Active Start: November 05, 2024 Dr. Nehemiah Hammond MD Nurse Practitioner Active Start: November 05, 2024 Team Status: Active Member Role/Relationship Status Dates No Primary Care Physician Primary care physician Activ e Start: November 06, 2024 Dr. Kaleb Horta DO Admitting physician Activ e Start: November 06, 2024 Dr. Kaleb Horta DO Nurse Practitioner Active Start: November 06, 2024 Dr. Nehemiah Ugarte MD Nurse Practitioner Active Start: November 06, 2024 Dr. Shaun Del Angel MD Nurse Practitioner Active S tart: November 06, 2024 Dr. Trae Washington MD Nurse Practitioner Active Start: November 06, 2024 Dr. Ann Andrews MD Nurse Practitioner Active Start: November 06, 2024 Dr. Chase Mccauley MD Nurse Practitioner Active Start: November 06, 2024 Dr. Jonathan Pérez MD Nurse Practitioner Active Star t: November 06, 2024 Dr. Aaron Crooks MD Nurse Practitioner Active Start: November 06, 2024 Dr. Aubrey Saxena DO Nurse Practitioner Active Start: November 06, 2024 Angelica Lawson [employer], [employer] Nurse Practitioner Active Start: November 06, 2024 Dr. Law Eduardo MD Nurse Practitioner Active S tart: November 06, 2024 Dr. Nehemiah Hammond MD Nurse Practitioner Active Start: November 06, 2024 Dr. Ximena Mccormick MD Attending physician Active Start: November 06, 2024 Team Status: Active Member Role/Relationship Status Dates No Primary Care Physician Primary care physician Activ e Start: November 06, 2024 Dr. Kaleb Horta DO Admitting physician Activ e Start: November 06, 2024 Dr. Kaleb Horta DO Referring Provider Active Start: November 06, 2024 Dr. Kaleb Horta DO Nurse Practitioner Active Start: November 06, 2024 Dr. Nehemiah Ugarte MD Nurse Practitioner Active Start: November 06, 2024 Dr. Shaun Del Angel MD Nurse Practitioner Active S tart: November 06, 2024 Dr. Trae Washington MD Nurse Practitioner Active Start: November 06, 2024 Dr. Ann Andrews MD Nurse Practitioner Active Start: November 06, 2024 Dr. Chase Mccauley MD Nurse Practitioner Active Start: November 06, 2024 Dr. Jonathan Pérez MD Nurse Practitioner Active Star t: November 06, 2024 Dr. Aaron Crooks MD Nurse Practitioner Active Start: November 06, 2024 Dr. Aubrey Saxena DO Nurse Practitioner Active Start: November 06, 2024 Angelica Lawson NP, [employer] Nurse Practitioner Active Start: November 06, 2024 Dr. Law Eduardo MD Attending physician Active Start: November 06, 2024 Dr. Law Eduardo MD Nurse Practitioner Active S tart: November 06, 2024 Dr. Nehemiah Hammond MD Nurse Practitioner Active Start: November 06, 2024 Team Status: Active Member Role/Relationship Status Dates No Primary Care Physician Primary care physician Activ e Start: November 07, 2024 Dr. Kaleb Horta DO Admitting physician Activ e Start: November 07, 2024 Dr. Kaleb Horta DO Nurse Practitioner Active Start: November 07, 2024 Dr. Nehemiah Ugarte MD Nurse Practitioner Active Start: November 07, 2024 Dr. Shaun Del Angel MD Nurse Practitioner Active S tart: November 07, 2024 Dr. Trae Washington MD Nurse Practitioner Active Start: November 07, 2024 Dr. Ann Andrews MD Nurse Practitioner Active Start: November 07, 2024 Dr. Chase Mccauley MD Nurse Practitioner Active Start: November 07, 2024 Dr. Jonathan Pérez MD Nurse Practitioner Active Star t: November 07, 2024 Dr. Aaron Crooks MD Nurse Practitioner Active Start: November 07, 2024 Dr. Aubrey Saxena DO Nurse Practitioner Active Start: November 07, 2024 Angelica Lawson [employer]OR, [employer] Nurse Practitioner Active Start: November 07, 2024 Dr. Law Eduardo MD Nurse Practitioner Active S tart: November 07, 2024 Dr. Nehemiah Hammond MD Attending physician Active Start: November 07, 2024 Dr. Nehemiah Hammond MD Nurse Practitioner Active Start: November 07, 2024 Team Status: Active Member Role/Relationship Status Dates No Primary Care Physician Primary care physician Activ e Start: November 08, 2024 Dr. Kaleb Horta , DO Admitting physician Activ e Start: November 08, 2024 Dr. Kaleb Horta DO Nurse Practitioner Active Start: November 08, 2024 Dr. Nehemiah Ugarte MD Nurse Practitioner Active Start: November 08, 2024 Dr. Shaun Del Angel MD Nurse Practitioner Active S tart: November 08, 2024 Dr. Trae Washington MD Nurse Practitioner Active Start: November 08, 2024 Dr. Ann Andrews MD Nurse Practitioner Active Start: November 08, 2024 Dr. Chase Mccauley MD Nurse Practitioner Active Start: November 08, 2024 Dr. Jonathan Pérez MD Nurse Practitioner Active Star t: November 08, 2024 Dr. Aaron Crooks MD Nurse Practitioner Active Start: November 08, 2024 Dr. Aubrey Saxena DO Nurse Practitioner Active Start: November 08, 2024 Angelica Lawson [employer]OR, [employer]-C Nurse Practitioner Active Start: November 08, 2024 Dr. Law Eduardo MD Nurse Practitioner Active S tart: November 08, 2024 Dr. Nehemiah Hammond MD Attending physician Active Start: November 08, 2024 Dr. Nehemiah Hammond MD Nurse Practitioner Active Start: November 08, 2024 Team Status: Active Member Role/Relationship Status Dates No Primary Care Physician Primary care physician Activ e Start: November 09, 2024 Dr. Kaleb Horta DO Admitting physician Activ e Start: November 09, 2024 Dr. Kaleb Horta DO Nurse Practitioner Active Start: November 09, 2024 Dr. Nehemiah Ugarte MD Nurse Practitioner Active Start: November 09, 2024 Dr. Shaun Del Angel MD Nurse Practitioner Active S tart: November 09, 2024 Dr. Trae Washington MD Nurse Practitioner Active Start: November 09, 2024 Dr. Ann Andrews MD Nurse Practitioner Active Start: November 09, 2024 Dr. Chase Mccauley MD Nurse Practitioner Active Start: November 09, 2024 Dr. Jonathan Pérez MD Nurse Practitioner Active Star t: November 09, 2024 Dr. Aaron Crooks MD Nurse Practitioner Active Start: November 09, 2024 Dr. Aubrey Saxena DO Nurse Practitioner Active Start: November 09, 2024 Angelica Lawson [employer], [employer] Nurse Practitioner Active Start: November 09, 2024 Dr. Law Eduardo MD Nurse Practitioner Active S tart: November 09, 2024 Dr. Nehemiah Hammond MD Attending physician Active Start: November 09, 2024 Dr. Nehemiah Hammond MD Nurse Practitioner Active Start: November 09, 2024 Team Status: Active Member Role/Relationship Status Dates No Primary Care Physician Primary care physician Activ e Start: November 10, 2024 Dr. Kaleb Horta DO Admitting physician Activ e Start: November 10, 2024 Dr. Kaleb Horta DO Nurse Practitioner Active Start: November 10, 2024 Dr. Nehemiah Ugarte MD Nurse Practitioner Active Start: November 10, 2024 Dr. Shaun Del Angel MD Nurse Practitioner Active S tart: November 10, 2024 Dr. Trae Washington MD Nurse Practitioner Active Start: November 10, 2024 Dr. Ann Andrews MD Nurse Practitioner Active Start: November 10, 2024 Dr. Chase Mccauley MD Nurse Practitioner Active Start: November 10, 2024 Dr. Jonathan Pérez MD Nurse Practitioner Active Star t: November 10, 2024 Dr. Aaron Crooks MD Nurse Practitioner Active Start: November 10, 2024 Dr. Aubrey Saxena DO Nurse Practitioner Active Start: November 10, 2024 Angelica Lawson [employer]OR, [employer] Nurse Practitioner Active Start: November 10, 2024 Dr. Law Eduardo MD Nurse Practitioner Active S tart: November 10, 2024 Dr. Nehemiah Hammond MD Attending physician Active Start: November 10, 2024 Dr. Nehemiah Hammond MD Nurse Practitioner Active Start: November 10, 2024 Team Status: Active Member Role/Relationship Status Dates No Primary Care Physician Primary care physician Activ e Start: November 10, 2024 Dr. Law Eduardo MD Attending physician Active Start: November 10, 2024 Dr. Law Eduardo MD Referring Provider Active S tart: November 10, 2024 Team Status: Active Member Role/Relationship Status Dates Dr. Vee Stuart MD Attending physician Active Start: November 10, 2024 Dr. Vee Stuart MD Referring Provider Active Start: November 10, 2024 No Primary Care Physician Primary care physician Activ e Start: November 10, 2024 Team Status: Inactive Member Role/Relationship Status Dates No Primary Care Physician Primary care physician Activ e Start: November 10, 2024 End: December 05, 2024 Dr. Netta Domingo DO Admitting physician Active Start: November 10, 2024 End: December 05, 2024 Dr. Netta Domingo DO Attending physician Active Start: November 10, 2024 End: December 05, 2024 Team Status: Active Member Role/Relationship Status Dates No Primary Care Physician Primary care physician Activ e Start: November 11, 2024 Dr. Netta Domingo DO Admitting physician Active Start: November 11, 2024 Dr. Netta Domingo DO Nurse Practitioner Active Start: November 11, 2024 ABELARDO Perez Attending physician Active Start: November 11, 2024 Team Status: Active Member Role/Relationship Status Dates No Primary Care Physician Primary care physician Activ e Start: November 12, 2024 Dr. Netta Domingo DO Admitting physician Active Start: November 12, 2024 Dr. Netta Domingo DO Attending physician Active Start: November 12, 2024 Dr. Netta Domingo DO Nurse Practitioner Active Start: November 12, 2024 Team Status: Active Member Role/Relationship Status Dates No Primary Care Physician Primary care physician Activ e Start: November 14, 2024 Dr. Netta Domingo DO Admitting physician Active Start: November 14, 2024 Dr. Netta Domingo DO Attending physician Active Start: November 14, 2024 Dr. Netta Domingo DO Nurse Practitioner Active Start: November 14, 2024 Team Status: Active Member Role/Relationship Status Dates No Primary Care Physician Primary care physician Activ e Start: November 18, 2024 Dr. Netta Domingo DO Admitting physician Active Start: November 18, 2024 Dr. Netta Domingo DO Attending physician Active Start: November 18, 2024 Dr. Netta Domingo DO Nurse Practitioner Active Start: November 18, 2024 Team Status: Active Member Role/Relationship Status Dates No Primary Care Physician Primary care physician Activ e Start: November 19, 2024 Dr. Netta Domingo DO Admitting physician Active Start: November 19, 2024 Dr. Netta Domingo DO Attending physician Active Start: November 19, 2024 Dr. Netta Domingo DO Nurse Practitioner Active Start: November 19, 2024 Team Status: Active Member Role/Relationship Status Dates No Primary Care Physician Primary care physician Activ e Start: November 21, 2024 Dr. Netta Domingo DO Admitting physician Active Start: November 21, 2024 Dr. Netta Domingo DO Attending physician Active Start: November 21, 2024 Dr. Netta Domingo DO Nurse Practitioner Active Start: November 21, 2024 Team Status: Active Member Role/Relationship Status Dates No Primary Care Physician Primary care physician Activ e Start: November 22, 2024 Dr. Netta Domingo DO Admitting physician Active Start: November 22, 2024 Dr. Netta Domingo DO Attending physician Active Start: November 22, 2024 Dr. Netta Domingo DO Nurse Practitioner Active Start: November 22, 2024 Team Status: Active Member Role/Relationship Status Dates No Primary Care Physician Primary care physician Activ e Start: November 25, 2024 Dr. Netta Domingo DO Admitting physician Active Start: November 25, 2024 Dr. Netta Domingo DO Attending physician Active Start: November 25, 2024 Dr. Netta Domingo DO Nurse Practitioner Active Start: November 25, 2024 Team Status: Active Member Role/Relationship Status Dates No Primary Care Physician Primary care physician Activ e Start: November 26, 2024 Dr. Netta Domingo DO Admitting physician Active Start: November 26, 2024 Dr. Netta Domingo DO Attending physician Active Start: November 26, 2024 Dr. Netta Domingo DO Nurse Practitioner Active Start: November 26, 2024 Team Status: Active Member Role/Relationship Status Dates No Primary Care Physician Primary care physician Activ e Start: November 28, 2024 Dr. Netta Domingo DO Admitting physician Active Start: November 28, 2024 Dr. Netta Domingo DO Attending physician Active Start: November 28, 2024 Dr. Netta Domingo DO Nurse Practitioner Active Start: November 28, 2024 Team Status: Active Member Role/Relationship Status Dates No Primary Care Physician Primary care physician Activ e Start: December 01, 2024 Dr. Netta Domingo DO Admitting physician Active Start: December 01, 2024 Dr. Netta Domingo DO Attending physician Active Start: December 01, 2024 Dr. Netta Domingo DO Nurse Practitioner Active Start: December 01, 2024 Team Status: Active Member Role/Relationship Status Dates No Primary Care Physician Primary care physician Activ e Start: December 03, 2024 Dr. Netta Domingo DO Admitting physician Active Start: December Dr. Netta Domingo DO Attending physician Active Start: December Dr. Netta Domingo DO Nurse Practitioner Active Start: December Team Status: Active Member Role/Relationship Status Dates No Primary Care Physician Primary care physician Activ e Start: December 05, 2024 Dr. Netta Domingo DO Admitting physician Active Start: December Dr. Netta Domingo DO Attending physician Active Start: December Dr. Netta Domingo DO Nurse Practitioner Active Start: December Team Status: Inactive Member Role/Relationship Status Dates No Primary Care Physician Primary care physician Activ e Start: December 11, 2024 End: December 11, 2024 No Primary Care Physician Referring Provider Active Start: December 11, 2024 End: December 11, 2024 ABELARDO Rosen Attending physician Active Start: December 11, 2024 End: December 11, 2024 Team Status: Active Member Role/Relationship Status Dates No Primary Care Physician Primary care physician Activ e Start: December 24, 2024 Torri CESAR [employer]-C Attending physician Active Start: December 24, 2024 Team Status: Inactive Member Role/Relationship Status Dates Dr. Mary Corbin DO Attending physician Active Start: December 26, 2024 End: December 26, 2024 Dr. Mary Corbin DO Emergency Depart ent Physician Active Start: December 26, 2024 End: December 26, 2024 Torri CESAR [employer]-C Primary care physician Active Start: December 26, 2024 End: December 26, 2024 Team Status: Inactive Member Role/Relationship Status Dates Dr. Shaun Del Angel MD Attending physician Active Start: December 30, 2024 End: December 30, 2024 Dr. Nteta Domingo DO Referring Provider Active Start: December End: December 30, 2024 Torri CESAR, [employer]OR-C Primary care physician Acti ve Start: December 30, 2024 End: December 30, 2024 Team Status: Active Member Role/Relationship Status Dates Torri CESAR, [employer]OR-C Primary care physician Acti ve Start: December 30, 2024 Dr. Shaun Del Angel MD Attending physician Active Start: December 30, 2024 Dr. Shaun Del Angel MD Referring Provider Active S tart: December 30, 2024 Team Status: Active Member Role/Relationship Status Dates Torri CESAR, [employer]OR-C Primary care physician Acti ve Start: December 31, 2024 ABELARDO Arredondo Attending physician Active Start: December 31, 2024 Team Status: Inactive Member Role/Relationship Status Dates No Primary Care Physician Primary care physician Activ e Start: December 24, 2024 End: December 24, 2024 Torri CESAR, ABDELRAHMAN-C Attending physician Active Start: December 24, 2024 End: December 24, 2024 Team Status: Inactive Member Role/Relationship Status Dates Torri CESAR, [employer]OR-C Primary care physician Acti ve Start: December 31, 2024 End: December 31, 2024 ABELARDO Arredondo Attending physician Active Start: December 31, 2024 End: December 31, 2024 Goals (unrecognized section and content) [...] BE BASED ON THE PRIMARY CLINICAL RECORDS. [facility]. provides no warranty or guarantee of the accuracy or completeness of information in this document.
== END | disposition home or self-care (01) ==
LOC: OPBI 01-17 07:25
PROVIDERS: PCP Nurse Practitioner Family; Referring Provider Nurse Practitioner Family; Visit Provider Nurse Practitioner Family
DX: Z12.31 Encounter for screening mammogram for malignant neoplasm of breast (principal)
CPT/HCPCS: 77063; 77067

== ENCOUNTER 2025-03-28 19:29 | Emergency (ER) | payer MEDICAID, SELFPAY ==
[2025-03-28 19:30] VITALS: BP 154/99; PULSE 88; RESP 16; TEMP 36.2; O2SAT 99; BMI 37.4
--- NOTE | 2025-03-28 20:13 | EX.ED.DYSGE1 ---
HPI History of Present Illness Chief Complaint: Hypertension [facility] Medical History Central neuropathic pain Vaping nicotine dependence, non-tobacco product Allergic rhinitis Migraine headache Hypertension Anxiety Insomnia Amphetamine use Polycythemia HTN (hypertension) ADHD Migraine Home Medications ?Medication ?Instructions ?Recorded ?Last Taken ?Type aspirin 81 mg chewable tablet 81 mg PO DAILYCM heart health #0 11/01/24 11/01/24 Rx tabs atorvastatin 80 mg tablet 80 mg PO QHS cholesterol #30 tabs 12/05/24 Unknown Rx bupropion HCl 300 mg 24 hr tablet, 300 mg PO DAILY #30 tabs 12/05/24 Unknown Rx extended release buspirone 10 mg tablet 10 mg PO TID #90 tabs 12/05/24 Unknown Rx duloxetine 30 mg capsule,delayed 30 mg PO DAILY #30 caps 12/05/24 Unknown Rx release lisinopril 10 mg tablet 10 mg PO DAILY blood pressure #30 12/05/24 Unknown Rx tabs propranolol 40 mg tablet 40 mg PO BID #60 tabs 12/05/24 Unknown Rx gabapentin 100 mg capsule 100 mg PO QHS 12/30/24 Unknown History tizanidine 2 mg tablet 2 mg PO HS 12/30/24 Unknown History lisinopril 20 mg tablet 20 mg PO DAILY 30 days #30 tabs 03/28/25 Unknown Rx Allergy/AdvReac Type Severity Reaction Status Date / Time naproxen Allergy Hives Verified 03/28/25 19:32 Family History Mother Hypertension Depression Anxiety PTSD (post-traumatic stress disorder) Surgical History History of section Social History household members: children and other details: son who is 16, Ramiro, lives with her number of children: 1 current occupational status: employed 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 Smoking Status: Former smoker alcohol intake: former substance use type: former substance user and marijuana caffeine: No do you feel safe at home: Yes EXAM Physical Exam Const Vital Signs: 03/28/25 19:30 03/28/25 20:07 03/28/25 21:00 Temperature 97.2 F L Temperature Source Temporal Pulse Rate 88 Respiratory Rate 16 Respiratory Effort Normal Respiratory Pattern Normal Blood Pressure 154/99 H 142/93 H Blood Pressure Mean 117 109 Pulse Ox 99 Oxygen Delivery Method Room Air [facility] [place] Medical decision making narrative: HISTORY OF PRESENT ILLNESS: Chief complaint: Elevated blood pressure 39-year-old female presents concern for elevated blood pressure. Notes history of CVA. States her blood pressure 130/100 at home. Denies headache. Denies chest pain. Denies leg swelling. Notes compliance on blood pressure medicine although she cannot tell me which blood pressure medicine she is taking REVIEW OF SYSTEMS: Pertinent positives: Elevated blood pressure Pertinent negatives: As per HPI PHYSICAL EXAM: Nursing triage notes reviewed, Vital signs reviewed Constitutional: please see [facility] HENT: MMM Eyes: Pupils equal round and reactive to light, Extraocular muscles intact Neck: No stridor, no JVD, full neck ROM Lungs: Clear to auscultation, No wheezing or rales. No increased work of breathing, no conversational dyspnea, no accessory muscle use, no nasal flaring. No respiratory distress noted Heart: Regular rate and rhythm, No murmurs, No rubs and No gallops, 2+ distal pulses (radial, femoral, posterior tibial) in all extremities Abdomen: Soft, there is no tenderness, rigidity, rebound or guarding, no obvious peritoneal signs, no palpable pulsatile abdominal masses, no auscultated abdominal bruit : No CVAT Extremities: No edema Neuro: Alert and oriented x3, neuro exam at baseline, cranial nerves II through XII are intact. No pain with extraocular muscle movement. There is negative test of skew. 5 of 5 strength in upper and lower extremities in flexion extension. Intact sensation to light touch in upper and lower extremity dermatomes. No truncal or extremity ataxia. No dysdiadochokinesia. Normal gait. 2+ reflexes in upper and lower extremities. No meningeal signs. Negative Babinski. NIH of 0. Skin: No rash or lesions noted MEDICAL DECISION MAKING: Chief Complaint: please see [facility] External records reviewed: Reviewed CT scan of the brain from December. It showed no acute process. MRI from October 2024 showed subacute infarct Factors affecting care: Hypertension, hyperlipidemia Social determinants of health: History of substance abuse History obtained from others: Cousin Consults: none [facility] Narrative: The patient was initially hemodynamically stable, afebrile and nontoxic-appearing. Initial blood pressure was in the 180s systolic. Exam without focal deficits. No stigmata of CHF. I considered the following differential diagnosis: ICH, endorgan damage of elevated blood pressure I obtained a broad lab and imaging work to further determine if the patient was suffering from a life-threatening etiology. Initially treat the patient with oral blood pressure medicine she takes at home ALL IMAGES (IF OBTAINED) HAVE BEEN PERSONALLY REVIEWED AND INTERPRETED BY MYSELF. EKG with normal sinus rhythm rate of 88, normal axis, normal intervals, no STEMI CBC with leukocytosis suggestive of systemic inflammation, no anemia or thrombocytopenia BMP without evidence of significant electrolyte abnormalities, no anion gap, no acute kidney injury. CT scan of the brain showed no acute intracranial hemorrhage, no new I have personally reviewed the patient's chest x-ray. Chest x-ray is unremarkable for pulmonary edema, pneumothorax, pneumonia or focal cardiopulmonary abnormality. On repeat evaluation the patient's blood pressure improved to 142/93 after oral blood pressure medicine. She remained asymptomatic. Given improved vitals, no focal deficits, asymptomatic nature, reassuring labs images patient's point for discharge home with close outpatient PCP follow-up for blood pressure medication titration. I did write her 20 mg of lisinopril daily in the meantime. The patient and/or family, caregivers express understanding. The patient and/or family, caregivers agrees with the plan. Shared decision making: I will have a discussion with the patient and or visitors regarding risk/benefits of further testing or admission. They will be made aware of of the risk/benefits inherent in this decision they will be given the opportunity to voice understanding. Total critical care time today provided was at least 0 minutes. This excludes separately billable procedures. Critical care time (if documented) is secondary to the patient having high probability of clinically significant/life threatening deterioration in the patient's condition which required my urgent intervention. Impression: 1. Elevated blood pressure 2. History of hypertension Dispo: Discharge This note was generated with Siperian dictation software. It may contain incorrect words, spelling, and punctuation that were not noted in review of the chart prior to signing. Lab Data Labs: Laboratory Results - last 24 hr 03/28/25 20:37 WBC 11.9 H RBC 5.08 Hgb 14.5 Hct 43.4 MCV 85.4 MCH 28.5 MCHC 33.4 RDW Std Deviation 35.3 RDW Coeff of Maria Teresa 11.4 L Plt Count 312 MPV 9.4 Immature Gran % (Auto) 0.400 Neut % (Auto) 64.2 Lymph % (Auto) 26.1 Maverick % (Auto) 6.7 Eos % (Auto) 2.3 Baso % (Auto) 0.3 Absolute Neuts (auto) 7.6 Absolute Lymphs (auto) 3.10 Nucleated RBC % 0 Sodium 139 Potassium 4.1 Chloride 104 Carbon Dioxide 26.1 Anion Gap 10 BUN 11 Creatinine 0.70 Estim Creat Clear Calc 120.85 Est GFR (MDRD) Non-Af 111 BUN/Creatinine Ratio 15.3 Glucose 97 Calcium 9.3 Radiography Diagnostic Testing: Clinical Impression(s) from Imaging Studies Brain CT 03/28/25 20:26 IMPRESSION: *No intracranial hemorrhage. No mass effect or midline shift. *Stable right frontal encephalomalacia likely from prior infarct or injury. Reading Location: [facility] Chest X-Ray 03/28/25 20:48 IMPRESSION: No Acute Findings. Reading Location: [facility] Discharge Plan Triage Chief Complaint: Hypertension ED Provider: Bowen Steele Dx/Rx/DC Orders Instructions: ED High Blood Pressure Hypertension Prescriptions: New lisinopril 20 mg tablet 20 mg PO DAILY 30 Days Qty: 30 0RF No Action gabapentin 100 mg capsule 100 mg PO QHS tizanidine 2 mg tablet 2 mg PO HS aspirin 81 mg Tablet,Chewable 81 mg PO DAILYCM Qty: 0 0RF propranolol 40 mg Tablet 40 mg PO BID Qty: 60 0RF bupropion HCl 300 mg Tablet Extended Release 24 Hr 300 mg PO DAILY Qty: 30 0RF duloxetine 30 mg Capsule,Delayed Release(Dr/Ec) 30 mg PO DAILY Qty: 30 0RF buspirone 10 mg tablet 10 mg PO TID Qty: 90 0RF Rx Instructions: Take this with breakfast, at 2-3 PM and at bedtime atorvastatin 80 mg Tablet 80 mg PO QHS Qty: 30 0RF lisinopril 10 mg Tablet 10 mg PO DAILY Qty: 30 0RF Primary Care Provider: Torri Zapata Referrals: Torri Zapata, GYROSCOPIC INSTRUMENT TESTER-C [Primary Care Provider, Family Practice] Activity Restrictions/Additional Instructions: Thank you for trusting us with your care today! Your labs and images are reassuring. CT scan your brain showed no evidence of an acute stroke or bleeding your brain it did show evidence of your old stroke No sign of heart damage or kidney damage noted I prescribed you 20 mg of lisinopril daily which is an increase of 10 mg to your current dose. Please begin taking 20 mg daily once you receive this medicine from the pharmacy Please return to the emergency department if your symptoms change or worsen. Please follow with your primary care physician for further outpatient evaluation and management. Print Language: Bulgarian Disposition Disposition: Home, Self Care
--- NOTE | 2025-03-28 20:26 | CT_ITS ---
PROCEDURE: BRAIN/HEAD WITHOUT CONTRAST 03/28/2025 REASON FOR EXAM: ELEVATED BLOOD PRESSURE RULE OUT ICH TECHNIQUE: Procedure Code: CTBR Modality: CT Procedure: BRAIN/HEAD WITHOUT CONTRAST Coronal and Sagittal reconstruction series were provided. One or more dose reduction techniques were used (e.g., Automated exposure control, adjustment of the mA and/or kV according to patient size, use of iterative reconstruction technique. COMPARISON: CT head 12/26/2024 FINDINGS: There is no extra-axial or intra-axial intracranial hemorrhage. No mass effect or midline shift is seen. The ventricles, sulci, and cisterns are normal in size and shape for the patient's age. Stable right frontal encephalomalacia likely sequelae of prior infarct or injury. There is normal beckford-white matter differentiation. The posterior fossa is grossly unremarkable. The skull is unremarkable. Visualized paranasal sinuses are clear. The mastoid air cells show normal translucency. CT/Brain/Head without Contrast IMPRESSION: *No intracranial hemorrhage. No mass effect or midline shift. *Stable right frontal encephalomalacia likely from prior infarct or injury. Reading [facility]
--- NOTE | 2025-03-28 20:26 | EKG12_ITS ---
Test Reason : DYSRHYTHMIA Blood Pressure : */* mmHG Vent. Rate : 88 BPM Atrial Rate : 88 BPM P-R Int : 166 ms QRS Dur : 82 ms QT Int : 372 ms P-R-T Axes : 25 58 38 degrees QTcB Int : 450 ms Normal sinus rhythm Normal ECG Confirmed by Nehemiah Horton ([id number]), editor trade journal STEPHANIE VILLA ([id number]) on 04/04/2025 6:48:59 AM Referred By: DENNIS Confirmed By: Nehemiah Horton
--- OUTSIDE RECORDS SUMMARY | 2025-03-28 20:35 | XMS RPT_ITS | CCD ---
Author Organization [facility] Care Team Providers Care Auto Clutch Specialist Name Role Phone Unavailable Primary Care [...] Provider Dr. Kyle Ghosh MD Other Provider [phone] Dr. Leidy Mckinnon MD Other Provider [phone] Reagan White MD Other Provider Dr. Tong Rai MD Other Provider Andres SCHWAB, Dr. Reza Other Provider Shakira Anthony MD Other Provider [phone] Aaron Chavez MD Other Provider Dr. Sherry Lugo MD Other Provider Arnulfo SCHWAB, Dr. Hoang Other Provider Maribell SCHWAB, Dr. Hemanth Domingo Other Provider Alex SCHWAB, Dr. Moss Other Provider [phone] Yobany SCHWAB, Dr. Torres Other Provider Gurmeet SCHWAB, Dr. Chau Other Provider [phone] Afshin SCHWAB, Dr. Valentine Other Provider Unavailable [...] Dr. Esteban Other Provider Josue SCHWAB, Dr. Dvais Other Provider Miguel SCHWAB, Dr. Thorpe Other Provider Hal SCHWAB, Dr. Vasquez Other Provider Unavailable Jayce SCHWAB, Dr. Foy Other Provider Clifford PHILLIPS, Dr. Nehemiah Jackson Other Provider Berny SCHWAB, Dr. Andujar Other Provider Sanjuanita SCHWAB, Dr. Reece Other Provider Yolanda SCHWAB, Dr. Hayes Other Provider Justus SCHWAB, Dr. Corral Other Provider Lemuel SCHWAB, Dr. Agrawal Other Provider Forest MANAGER DOCUMENT-C, Jarred Medina Other Provider Danielle Palm Other [...] Hemanth PHILLIPS, Dr. Burgos Other Provider Renny MANAGER DOCUMENT-C, Angelica Other Provider Dr. Nehemiah Hammond MD [...] Unavailable Kalani SCHWAB, Dr. Moser Other Provider [phone] Sheeba Rodriguez MD Other Provider Unavailable Dr. Lydia Orantes DO Other Provider [phone] Dr. Renee Cleveland MD Other Provider [phone] Augie SCHWAB, Dr. Wright Other Provider Pratibha SCHWAB, Dr. Forbes Other Provider Cindy SCHWAB, Dr. Kirk Other Provider [phone] Fredi SCHWAB, Dr. Fortune Other Provider [...] Lemuel SCHWAB, Dr. Agrawal Other Provider Forest MANAGER DOCUMENT-C, Jarred Medina Other Provider Kasie PIERCE, Danielle [...] Dr. Aubrey Saxena DO Other Provider Renny MANAGER DOCUMENT-C, Angelica Other Provider Stephany SCHWAB, Dr. Cerna Attending Provider Unavaila moi Del Angel MD, Dr. Dunn Attending Provider Dr. Nehemiah Hammond MD Other Provider Unavailable Jace SCHWAB, Dr. Ximena Castañeda Attending Provider Narciso SCHWAB, Dr. Baxter Referring Provider Chayo DO, Dr. Netta Reyez Admit Provider Nolan MANAGER DOCUMENT-C, Sandra Attending Provide r Jayce SCHWAB, Dr. Foy Referring Provider Johan MANAGER DOCUMENT-CLiudmila Attending Provider Care Physician, No Primary Primary Care Physicia n Unavailable Ricardo PHILLIPS, Dr. Acuña Emergency Department Physi baljeet Haney DO, Dr. Cerna Admitting Physician Shanika vailable Haney DO, Dr. Cerna Nurse Practitioner Unav ailable Baljinder SCHWAB, David Nurse Practitioner Unavailable Kalani SCHWAB, Dr. Moser Nurse Practitioner Jennifer SCHWAB, Sheeba Nurse Practitioner Unavailab pito [...] Yobany SCHWAB, Dr. Torres Nurse Practitioner [phone] uGrmeet SCHWAB, Dr. Chau Nurse Practitioner Afshin SCHWAB, [...] Nurse Practitioner Unavailab pito Carpio MD, Dr. Esteban Nurse Practitioner Josue SCHWAB, Dr. Davis Nurse [...] Lemuel SCHWAB, Dr. Agrawal Nurse Practitioner Forest MANAGER DOCUMENT-C, Jarred Medina Nurse Practitioner Danielle Palm Nurse Practitioner Omer Sahver Nurse Practitioner Bean SCHWAB, Dr. Dunn Nurse [...] Hemanth PHILLIPS, Dr. Burgos Nurse Practitioner Renny MANAGER DOCUMENT-C, Angelica Nurse Practitioner Stephany SCHWAB, Dr. Cerna Attending Physician Unavail landon Del Angel MD, Dr. Dunn Attending Physician Stephany SCHWAB, Dr. Cerna Nurse Practitioner Unavailchristina Mccormick MD, Dr. Ximena Castañeda Attending Physician Chayo PHILLIPS, Dr. Netta Reyez Admitting Physici an Nolan MANAGER DOCUMENT-CSandra Attending Physici an Care Physician, No Primary Referring Provider Un available Johan QUICK-Liudmila Bolden Attending Physician Benny QUICK-Torri Bolden Attending Physician Dr. Mary Corbin DO Attending Physician Dr. Mary Corbin DO Emergency Department Physi baljeet Benny MANAGER DOCUMENT-C, Torri Primary Care Physician Chayo PHILLIPS, Dr. Netta Reyez Referring Provide r Dr. Shaun Del Angel MD Referring Provider Fidencio MANAGER DOCUMENT-CChristelle Attending Physician Fidencio MANAGER DOCUMENT-CChristelle Referring Provider Benny QUICK-C, Torri Referring Provider Torri Zapata Primary Care Unavailable Mary Corbin Attending Unavailable Christelle Nicolas Referring Unavailable Benny Torri Primary Care Unavailable Christelle Nicolas Attending Unavailable Christelle Nicolas Attending Unavailable Benny Torri Primary Care Unavailable Semenmilton My Consulting Unavaila ble Sementi, Netta Reyez Admitting Unavaila ble Sementi, My Attending Unavaila ble Care Physician, No Primary Primary Care Unava ilable Sementi, My Attending Unavaila ble Care Physician, No Primary Primary Care Unava ilable Sementi, My Admitting Unavaila ble Care Physician, No Primary [...] Chi Admitting Unavailable AmroRickmed Consulting Unavailable Sementi, My Attending Unavaila ble Care Physician, No Primary Primary Care Unava ilable Jabri, Ahmad Consulting Unavailable MostafHome britoraf Consulting Unavailable Susan Salas Consulting Unavailable Maurilio Rivera Consulting Unavailable Pedro Hong Consulting Unavailable Law Eduardo Consulting Unavailable Nehemiah Horton Consulting Unavailable Pratima Arrieta Consulting Unavailable Chevy Gann Consulting Unavailable Abigail Guerrero Consulting UnavailEllis Barcenas Consulting Unavailable Nghia Hdez Consulting Unavailable Forest QUICK, Jarred Medina Consulting Unavailable Danielle Palm Consulting Unavail able Omer Naranjo Consulting Unavailable PraShaun medina Consulting Unavailable Trav, Luis Chi Consulting Unavailable Mosttamie, Kaleb Consulting Unavailable Benny Torri Primary Care Unavailable Prah, Shaun Attending Unavailable Prah, Shaun Referring Unavailable Care Physician, No Primary Referring Unava ilable Care Physician, No Primary Primary Care Unava ilable Yefri Mancera Attending Unavailable Netta Domingo Referring Unavaila ble Torri Zapata Primary Care Unavailable Shaun Del Angel Attending Unavailable Jayce, Law Attending Unavailable Care Physician, No Primary Primary Care Unava ilable Jayce, Oconto Attending Unavailable Care Physician, No Primary Primary Care Unava ilable Nehemiah Hammond Attending Unavailable Mosttamie, Kaleb Admitting Unavailable Mosttamie, Kaleb Referring Unavailable Nehemiah Ugarte Consulting Unavailable Care Physician, No Primary Primary Care Unava ilable Shaun Del Angel Consulting Unavailable Washington, Trae Consulting Unavailable Isckarus, Mansour Consulting Unavailable , Chase Consulting Unavailable Jin, Jonathan Consulting Unavailable Macklis, Aaron Consulting Unavailable Hemanth, Aubrey Consulting Unavailable Renny MANAGER DOCUMENT, Angelica Consulting Unavailable Jayce, Oconto Consulting Unavailable Mosttamie, Kaleb Consulting Unavailable Nehemiah Hammond Consulting Unavailable Porfirio Zapatassica Primary Care Unavailable Porfirio Zapatassica Referring Unavailable Porfirio Zapatassica Attending Unavailable Benny Torri Attending Unavailable Care Physician, No Primary Primary Care Unava ilable Yefri Mancera Referring Unavailable Yefri Mancera Attending Unavailable Care Physician, No Primary Primary Care Unava ilable Jayce, Oconto Attending Unavailable Care Physician, No Primary Primary Care Unava ilable Jayce, Law Referring Unavailable JayceVinh noyolaril Attending Unavailable Nehemiah Hammond Attending Unavailable Nehemiah Ugarte Consulting Unavailable Mosttamie Kaleb Admitting Unavailable Mosteller, Kaleb Referring Unavailable Care Physician, No Primary Primary Care Unava ilable Prakait, Shaun Consulting Unavailable Washington, Trae Consulting Unavailable Isckarus, Mansour Consulting Unavailable , Chase Consulting Unavailable Jin, Jonathan Consulting Unavailable Macklis, Aaron Consulting Unavailable Hemanth, Aubrey Consulting Unavailable Renny MANAGER DOCUMENT, Angelica Consulting Unavailable Jayce, Oconto Consulting Unavailable Mosteller, Kaleb Consulting Unavailable Vee Stuart Referring Unavailable Vee Stuart Attending Unavailable Care Physician, No Primary Primary Care Unava ilable Ximena Mccormick Attending Unavailable Prah, Shaun Attending Unavailable Kaleb Horta Attending Unavailable Lori Hay Consulting Unavailable Netta Domingo Attending Unavaila ble Trav, Luis Chi Admitting Unavailable Care Physician, No Primary Primary Care Unava ilable Kanwal Rodríguez Consulting Unavailable Eulalia Carpio Consulting Unavailable Susan Salas Consulting Unavailable Maurilio Rivera Consulting Unavailable Pedro Hong Consulting Unavailable Law Eduardo Consulting Unavailable Nehemiah Horton Consulting Unavailable Pratima Arrieta Consulting Unavailable Chevy Gann Consulting Unavailable Abigail Guerrero Consulting UnavailEllis Barcenas Consulting Unavailable Nghia Hdez Consulting Unavailable Forest QUICK, Jarred Medina Consulting Unavailable Kasie PIERCE, Danielle Sharma Consulting Unavail able Omer Naranjo Consulting Unavailable Shaun Del Angel Consulting Unavailable Trav, Luis Chi Consulting Unavailable Kaleb Horta Consulting Unavailable Law Eduardo Attending Unavailable Netta Domingo Consulting Unavaila Liudmila Felder Attending Unavailable Care Physician, No Primary Referring Unava ilable Care Physician, No Primary Primary Care Unava ilable David Gale Consulting Unavailable Nehemiah Haney Attending Unavailable Care Physician, No Primary Primary Care Unava ilable Nehemiah Haney Admitting Unavailable Adeli, Amimalgorzata Consulting Unavailable Hindulinda Sheeba Consulting Unavailable Lamberto Lydia Consulting Unavailable Megha, Renee Consulting Unavailable AugieKyle rose Consulting Unavailable Leidy Mckinnon Consulting Unavailable Reagan White Consulting Unavailable Tong Rai Consulting Unavailable Juaquin Campos Consulting Unavailable Shakira Anthony Consulting Unavailable Aaron Chavez Consulting Unavailable Sherry Lugo Consulting Unavailable Natalya Arredondo Consulting Unavailable Maribell, Mhd Jose L Consulting UnavailAjay Dahl Consulting Unavailable Haywood, Rami Consulting Unavailable Isac Levi Consulting Unavailable Meme Pepe Consulting Unavailable Mark Garcias Consulting Unavailable Nehemiah Haney Consulting Unavailable Vee Stuart Attending Unavailable Sen Clarke Consulting Unavailable Vee Stuart Consulting Unavailable Sen Clarke Attending Unavailable Sandra Francisco Attending Balwinder snowden Allergies Allergy Classification Reported Allergen(s) Allergy Type Date of Onset Reaction(s) Facility (14 sources) Naproxen; Translations: [NAPROXEN] Drug Allergy 5 Hives [facility] Work Phone: (2 sources) Seasonal allergy; Translations: [SEASONAL ALLERGIES] Propensity to adverse reactions 0 [facility] (3 sources) Codeine Drug Allergy 5 Unknown [facility] (1 source) Codeine Drug Allergy 5 [facility] Repository (1 source) Naproxen Drug Allergy 5 [facility] Repository Medications Current Medications Medication Drug Class(es) Dates Sig (Normalized) Sig (Original) aspirin 81 mg chewable tablet (10 sources) Platelet Aggregation Inhibitor, Nonsteroidal Anti-inflammatory Drug Start: 11-01-2024 atorvastatin 80 mg oral tablet (17 sources) HMG-CoA Reductase Inhibitor Start: 11-01-2024 End: 12-05-2024 Start: 11-01-2024 take 1 tablet by shay th at bedtime Atorvastatin 80 mg Tablet Active 80 mg PO AT BEDTIME 0 0 November 01, 2024 12:00am cholesterol 24 hr buPROPion hydrochloride 300 mg extended release oral tablet (7 sources) Aminoketone Start: 12-05-2024 busPIRone hydrochloride 10 mg oral tablet (7 sources) Start: 12-05-2024 dicyclomine hydrochloride 10 mg oral capsule (1 source) Anticholinergic Start: 02-11-2019 take 1 capsule by mouth three times daily as needed dicyclomine (BENTYL) 10 mg capsule Indications: Altered bowel habits , Generalized abdominal pain Take 1 capsule by mouth three times daily as needed. 90 capsule 3 02/11/2019 Active DULoxetine 30 mg delayed release oral capsule (7 sources) Serotonin and Norepinephrine Reuptake Inhibitor Start: 12-05-2024 gabapentin 100 mg oral capsule (12 sources) Anti-epileptic Agent Start: 12-30-2024 Start: 12-30-2024 Start: 12-05-2024 End: 12-30-2024 lactobacillus acidophilus 460 mg oral capsule (1 source) Start: 11-20-2019 take 1 capsule by mouth once daily Lactobacillus acidophilus (FLORAJEN) 460 mg (20 billion cell) cap Take 1 capsule by mouth once daily. 30 capsule 11/20/2019 Active lisinopril 10 mg oral tablet (17 sources) Angiotensin Converting Enzyme Inhibitor Start: 11-01-2024 End: 12-05-2024 propranolol hydrochloride 40 mg oral tablet (7 sources) beta-Adrenergic Vanita Start: 12-05-2024 tiZANidine 2 mg oral tablet (19 sources) Central alpha-2 Adrenergic Agonist Start: 12-30-2024 Start: 12-30-2024 Start: 12-05-2024 End: 12-30-2024 Start: 11-10-2024 End: 12-05-2024 Completed/Discontinued Medications Medication Drug Class(es) Dates Sig (Normalized) Sig (Original) acetaminophen 325 mg oral tablet (7 sources) Start: 12-05-2024 End: 12-30-2024 acetaminophen 325 mg / HYDROcodone bitartrate 5 mg oral tablet (12 sources) Opioid Agonist Start: 01-25-2018 End: 01-28-2018 [...] 11-01-2024 cloNIDine hydrochloride 0.1 mg oral tablet (12 sources) Central alpha-2 Adrenergic Agonist Start: 11-27-2023 End: 11-01-2024 cyclobenzaprine hydrochlorid e 10 mg oral tablet (10 sources) Muscle Relaxant Start: 11-01-2024 End: 11-10-2024 dexamethasone phosphate 1 mg /ml ophthalmic solution (11 sources) Corticosteroid Start: 10-30-2024 End: 12-05-2024 erythromycin 0.005 mg/mg ophthalmic ointment (11 sources) Macrolide, Macrolide Antimicrobial Start: 10-30-2024 End: 12-05-2024 Start: 10-30-2024 Erythromycin 5 mg/gram (0.5 %) ointment Active 1 NMA OPHTHALMIC EVERY EVENING October 30, 2024 12:00am hydroCHLOROthiazide 12.5 mg oral capsule (10 sources) Thiazide Diuretic Start: 11-01-2024 End: 11-10-2024 loratadine 10 mg oral tablet (13 sources) Start: 01-25-2018 End: 12-30-2024 LORATADINE (CLAR ITIN ORAL) Take by mouth. Active metoprolol tartrate 50 mg or al tablet (9 sources) beta-Adrenergic Vanita Start: 11-10-2024 End: 12-05-2024 Start: 04-09-2019 take 1 tablet by shay th once daily metoprolol succinate ER (TOPROL XL) 50 mg 24 hr tablet Indications: Hypertension, essential Take 1 tablet by mouth once daily. 30 tablet 5 04/09/2019 Active rizatriptan 10 mg oral table t (11 sources) Serotonin-1b and Serotonin-1d Receptor Agonist Start: 10-30-2024 End: 11-01-2024 Problems Active Problems Problem Classification Problem Date Documented Da te Episodic/Chronic Acute cerebrovascular disease (20 sources) Ischemic stroke; Translations: [Cerebral infarction, unspecified] Onset: 12-10-2024 10-30-2024 Chronic Anxiety disorders (20 sources) Anxiety; Translations: [Anxiety disorder, unspecified] Onset: [...] Chronic Conditions associated with dizziness or vertigo (5 sources) Lightheadedness; Translations: [Dizziness and giddiness] 12-26-2024 [...] Chronic Hypertension with complications and secondary hypertension (12 sources) Hypertensive urgency ; Translations: [Hypertensive urgency] 12-05-2023 Chronic Late effects of cerebrovascular disease (20 sources) Depressive disorder; Translations: [Other sequelae of [...] Inferolateral E KG changes. Other circulatory disease (5 sources) History of cerebrovascular accident; Translations: [Personal history of transient ischemic attack (TIA), and cerebral infarction without residual deficits] 12-26-2024 Episodic Other connective tissue disease (20 sources) Neuralgia and neuritis, unspecified; Translations: [Central [...] Onset: 12-30-2024 Episodic Other nervous system disorders (5 sources) Tremor; Translations: [Tremor, unspecified] 12-26-2024 Episodic Other nervous system disorders (1 source) Tremor, unspecified; Translations: [Tremor, unspecified] Onset: 12-30-2024 Episodic Other nutritional; endocrine; and metabolic disorders (14 sources) Body mass index - overweight; Translations: [Overweight] 10-30-2024 Episodic Other screening for suspected conditions (not mental disorders or infectious disease) (17 sources) Liver function tests abnormal; Translations: [Other specified abnormal findings of blood chemistry] Onset: 12-05-2024 11-11-2024 Episodic Other upper respiratory disease (18 sources) Allergic rhinitis; Translations: [Allergic rhinitis, unspecified] 11-04-2024 Chronic Other upper respiratory disease (1 source) Allergic rhinitis, unspecified; Translations: [Allergic rhinitis, unspecified] Onset: 11-12-2024 Chronic Paralysis (12 sources) Left hemiplegia; Translations: [Hemiplegia, unspecified affecting left nondominant side] Onset: 11-12-2024 11-01-2024 Chronic Residual codes; unclassified (20 sources) Tobacco user; Translations: [Tobacco use] 10-31-2024 Episodic Residual codes; unclassified (14 sources) Insomnia; Translations: [Insomnia, unspecified] 11-12-2024 Episodic Residual codes; unclassified (1 source) Insomnia, unspecified; Translations: [Insomnia, unspecified] Onset: 12-05-2024 Episodic Spondylosis; intervertebral disc disorders; other back problems (15 sources) Neck pain; Translations: [Cervicalgia] Onset: 12-05-2024 11-12-2024 Episodic Sprains and strains (11 sources) Strain of great toe; Translations: [Strain of unspecified muscle and tendon at ankle and foot level, right foot, initial encounter] 08-19-2024 Episodic Substance-related disorders (15 sources) Nicotine dependence; Translations: [Nicotine dependence, unspecified, uncomplicated] Onset: 12-05-2024 12-05-2024 Chronic Substance-related disorders (16 sources) Marijuana user; Translations: [Cannabis use, unspecified, [...] in right foot] Onset: 08-22-2024 Episodic Other nutritional; endocrine; and metabolic disorders (1 source) Overweight; Translations: [Overweight] Onset: 11-06-2024 Episodic Residual codes; unclassified (1 source) Finding related to status of agreement with prior finding; Translations: [Controlled substance agreement broken] Onset: 04-15-2019 04-15-2019 Episodic Residual codes; unclassified (1 source) Tobacco use; Translations: [Tobacco use] Onset: 11-12-2024 Episodic Results Test Name Value Interpretation Reference Range Facility SCRN MAMM (CAD)W/JEMMA BILATo n 01-16-2025 SCRN MAMM (CAD)W/JEMMA BILAT Normal [facility] Inital Evaluation (1) - PTon 01-07-2025 Inital Evaluation (1) - PT Normal [facility] OT General Evaluationon OT General Evaluation Normal [facility] PAP IG HPV APTIMA 16/18,45on 01-05-2025 ADEQ Comment Normal . [facility] Comment on above: Order Comment: Speci men Comment: [id number] Comment: Source.............CervixSpecimen Comment: No. of containers..01 ThinPrep Vial Result Comment: Sati sfactory for evaluation. Endocervical and/or squamous metaplasticcells (endocervical component) are present. Performed By: #### L 3410.9992, L7400.0280 ####[facility] [address] [place], [place], [id number] COMM . Normal . [facility] Comment on above: Order Comment: Speci men Comment: [id number] Comment: Source.............CervixSpecimen Comment: No. of containers..01 ThinPrep Vial Performed By: #### L 3410.9992, L7400.0280 ####[facility] [address] [place], [place], [id number] COMMENT Comment Normal . [facility] Comment on above: Order Comment: Speci men Comment: [id number] Comment: Source.............CervixSpecimen Comment: No. of containers..01 ThinPrep Vial Result Comment: This liquid based ThinPrep(R) pap test was screened withthe use of an image guided system. Performed By: #### L 3410.9992, L7400.0280 ####[facility] [address] [place], [place], [id number] DIAG Comment Normal . [facility] Comment on above: Order Comment: Speci men Comment: [id number] Comment: Source.............CervixSpecimen Comment: No. of containers..01 ThinPrep Vial Result Comment: NEGA TIVE FOR INTRAEPITHELIAL LESION OR MALIGNANCY. Performed By: #### L 3410.9992, L7400.0280 ####[facility] [address] [place], [place], [address] HPV APTIMA, HR Negative Normal Negative [facility] Comment on above: Order Comment: Speci men Comment: [id number] Comment: Source.............CervixSpecimen Comment: No. of containers..01 ThinPrep Vial Result Comment: This nucleic acid amplification test detects fourteen high-risk HPV types (16,18,31,33,35,39,45,51,52,56,58,59,66,68)without differentiation. Performed By: #### L 3410.9992, L7400.0280 ####[facility] [address] [place], [address] HPV Khushi Rfx Comment Normal . [facility] Comment on above: Order Comment: Speci men Comment: [id number] Comment: Source.............CervixSpecimen Comment: No. of containers..01 ThinPrep Vial Result Comment: Crit shikha not met, HPV Genotype not performed.Performed at: - [facility] [id number] Director: Mikayla Hardin MD, Phone: [phone] at: = - [facility] [address] [id number] Director: Mikayla Hardin MD, Phone: [phone] Performed By: #### L 3410.9992, L7400.0280 ####[facility] [id number] [place], [place], [id number] PAPSMR Comment Normal . [facility] Comment on above: Order Comment: Speci men Comment: [id number] Comment: Source.............CervixSpecimen Comment: No. of containers..01 ThinPrep Vial Result Comment: The Pap smear is a screening test designed to aid in thedetection of premalignant and malignant conditions of theuterine cervix. It is not a diagnostic procedure andshould not be used as the sole means of detecting cervicalcancer. Both false-positive and false-negative reports dooccur. Performed By: #### L 3410.9992, L7400.0280 ####[facility] [address] [place], [address] PERFORM Comment Normal . [facility] Comment on above: Order Comment: Speci men Comment: [id number] Comment: Source.............CervixSpecimen Comment: No. of containers..01 ThinPrep Vial Result Comment: Mamie Andrew Senior Asset Manager (ASCP) Performed By: #### L 3410.9992, L7400.0280 ####[facility] [address] [place], [place], [address] L3410.9992on 01-03-2025 [facility] Misc. COMMENT Normal . [facility] Comment on above: Order Comment: 1NUSWAB VAGINITIS PLUS (VG+) Result Comment: Test Ordered: [id number] NuSwab Vaginitis Plus (VG+)Test(s) 859294- Atopobium vaginae; 846498- BVAB 2;066604- Megasphaera 1was developed and its performance characteristicsdetermined by [facility]. It has not been cleared or approvedby the Food and Drug Administration.Test(s) 016880-Fuataut albicans, MARIA M; 717738-Kznlcfn glabrata, NAAwas developed and its performance characteristicsdetermined [...] M Negative =G Reference Range: NegativePerformed at: =[address] [id number] Director: Mikayla Hardin MD, Phone: [phone] at: [address] [id number] Director: Dl Campuzano PhD, Phone: [phone] Performed By: #### L 3410.9992, L7400.0280 ####[facility] [address] [place], [place], [address] Erythropoietinon 01-01-2025 ERYTHROPOIETIN 6.5 mIU/mL Normal 2.6-18.5 [facility] Comment on above: Result Comment: Omgiliel DxI 800 Immunoassay SystemValues obtained with different assay methods or kits cannotbe used interchangeably. Results cannot be interpreted asabsolute evidence of the presence or absence of malignantdisease.Performed at: [address] [id number] Director: Dl Campuzano PhD, Phone: [phone] Performed By: #### L 3100.1350 ####[facility] [address] [place], [place], [address] Cervical or vaginal specimen microscopic examination by liquid based cytology (reportOrdered By: Christelle Nicolas on 12-31-2024 Cytology report Cyto stain.thin prep Doc (Cvx/Vag) Comment . [facility] Cervical or vagninal specime n microscopic examination by cytology stain (reported asOrdered By: Christelle Nicolas on 12-31-2024 Cytology report Cyto stain Doc (Cvx/Vag) Comment . [facility] Detection in cervical specim en of any of human papilloma virus (HPV) 16, 18, 31, 33,Ordered By: Christelle Nicolas on 12-31-2024 HPV 16+18+31+33+35+39+45+5 1+52+56+58+59+66+68 DNA Probe+sig amp Ql (Cvx) Negative Negative [facility] Laboratory - CytologyOrdered By: Christelle Nicolas on 12-31-2024 Senior Asset Manager Cyto stain Nom (Cvx/Vag) [ID] Comment . [facility] - Miscellaneous t estsOrdered By: Christelle Nicolas on 12-31-2024 Service comment (Unsp spec) [Interp] . . [facility] No Panel InformationOrdered By: Christelle Nicolas on 12-31-2024 Comment . [facility] Absolute lymphocyte countOrd ered By: Shaun Del Angel on 12-30-2024 Lymphocytes Auto (Unsp spec) [#/Vol] 1.84 10*3/uL 0.83-4.51 [facility] Automated blood erythrocyte countOrdered By: Shaun Del Angel on 12-30-2024 RBC (Bld) [#/Vol] 4.76 10*6/uL Normal 4.2-5.4 [facility] Comment on above: Performed By: #### L 100.0100 ####[facility] [address] [place], [place], [id number] Automated blood hematocrit ( percentage)Ordered By: Shaun Del Angel on 12-30-2024 Hematocrit (Bld) [Volume fraction] 44.4 % Normal 37-47 [facility] Comment on above: Performed By: #### L 100.0100 ####[facility] [address] [place], [address] Automated lymphocyte count a s percentage of total leukocytesOrdered By: Shaun Del Angel on 12-30-2024 Lymphocytes/100 WBC Auto (Unsp spec) 24.3 % 19-41 [facility] Basophil percentageOrdered B y: Shaun Del Angel on 12-30-2024 Basophils/100 WBC (Bld) 0.5 % Normal 0-1 [facility] Comment on above: Performed By: #### L 100.0100 ####[facility] [address] [place], [address] CBC W/Diff, Automatedon 09-2 Absolute Lymph 1.84 X10 3/uL Normal 0.83-4.51 [facility] Comment on above: Performed By: #### L 100.0100 ####[facility] [address] [place], [address] Absolute Neut 5.0 X10 3/uL Normal 2.0-7.7 [facility] Comment on above: Performed By: #### L 100.0100 ####[facility] [address] [place], [address] IG% 0.400 Normal 0.0-0.9 [facility] Comment on above: Result Comment: IG% - Immature Granulocytes (promyelocytes, myelocytes andmetamyelocytes) > 1% indicates that a LEFT SHIFT is Present. Performed By: #### L 100.0100 ####[facility] [address] [place], [address] Lymphocytes/100 WBC (Bld) 24.3 % Normal 19-41 [facility] Comment on above: Performed By: #### L 100.0100 ####[facility] [address] [place], [address] MCHC (RBC) [Mass/Vol] 32.0 g/dL Normal 32-36 [facility] Comment on above: Performed By: #### L 100.0100 ####[facility] [address] [place], [address] Nucleated RBC (Bld) [#/Vol] 0 10*3/uL Normal 0-5 [facility] Comment on above: Performed By: #### L 100.0100 ####[facility] [address] [place], [address] Platelet mean volume (Bld) [Entitic vol] 9.6 fL Normal 6.2-12.0 [facility] Comment on above: Performed By: #### L 100.0100 ####[facility] [address] [place], [address] RDW SD 40.7 fl Normal 35.1-43.9 [facility] Comment on above: Performed By: #### L 100.0100 ####[facility] [address] [place], [address] Eosinophil percentageOrdered By: Shaun Del Angel on 12-30-2024 Eosinophils/100 WBC (Bld) 1.5 % Normal 0-5 [facility] Comment on above: Performed By: #### L 100.0100 ####[facility] [address] [place], [address] Erythrocyte distribution wid th ratioOrdered By: Shaun Del Angel on 12-30-2024 Erythrocyte distribution width (RBC) [Ratio] 11.9 % Normal 11.6-14.6 [facility] Comment on above: Performed By: #### L 100.0100 ####[facility] [address] [place], [address] Erythrocyte distribution wid th standard deviationOrdered By: Shaun Del Angel on 12-30-2024 Erythrocyte distribution width (RBC) [Ratio] 40.7 fl 35.1-43.9 [facility] Hemoglobin measurementOrdere d By: Shaun Del Angel on 12-30-2024 Hemoglobin (Bld) [Mass/Vol] 14.2 g/dL Normal 12.0-15.0 [facility] Comment on above: Performed By: #### L 100.0100 ####[facility] [address] [place], [address] Immature granulocytes/100 WB C Auto (Bld)Ordered By: Shaun Del Angel on 12-30-2024 Immature granulocytes/100 WBC (Bld) 0.400 % 0.0-0.9 [facility] MCV (mean corpuscular volume ) determinationOrdered By: Shaun Del Angel on 12-30-2024 MCV (RBC) [Entitic vol] 93.3 fL Normal 81-99 [facility] Comment on above: Performed By: #### L 100.0100 ####[facility] [address] [place], [address] Mean corpuscular hemoglobin (MCH) determinationOrdered By: Shaun Del Angel on 12-30-2024 MCH (RBC) [Entitic mass] 29.8 pg Normal 27.0-32.0 [facility] Comment on above: Performed By: #### L 100.0100 ####[facility] [address] [place], [address] Monocyte percentageOrdered B y: Shaun Del Angel on 12-30-2024 Monocytes/100 WBC (Bld) 7.5 % Normal 0-10 [facility] Comment on above: Performed By: #### L 100.0100 ####[facility] [address] [place], [address] Neutrophil percentageOrdered By: Shaun Del Angel on 12-30-2024 Neutrophils/100 WBC (Bld) 65.8 % Normal 47-70 [facility] Comment on above: Performed By: #### L 100.0100 ####[facility] [address] [place], [address] Oncology Visit Reporton 12-03 Oncology Visit Report Normal [facility] Platelet countOrdered By: Radha Del Angel on 12-30-2024 Platelets (Bld) [#/Vol] 300 10*3/uL Normal 150-450 [facility] Comment on above: Performed By: #### L 100.0100 ####[facility] [address] [place], [address] Serum or plasma erythropoiet in (EPO) measurement (units/volume)Ordered By: Shaun Del Angel on 12-30-2024 Erythropoietin (EPO) Qn 6.5 mIU/mL 2.6-18.5 [facility] White blood cell (WBC) count Ordered By: Shaun Del Angel on 12-30-2024 WBC (Bld) [#/Vol] 7.6 10*3/uL Normal 4.4-11.0 [facility] Comment on above: Performed By: #### L 100.0100 ####[facility] [address] [place], [place], [id number] Urine Cultureon 12-28-2024 URC Mixed Gram Positive Organisms Eucha Count 11,000-25,000 MIXC Mixed contaminants. Submit a new specimen if indicated. Normal [facility] Comment on above: Performed By: #### M 100.2200 ####[facility] [address] [place], [address] 12 Lead EKGon 12-26-2024 12 Lead EKG Normal [facility] Absolute lymphocyte countOrd ered By: Mary Corbin on 12-26-2024 Lymphocytes Auto (Unsp spec) [#/Vol] 1.91 10*3/uL 0.83-4.51 [facility] Anion gap in Serum or Plasma Ordered By: Mary Corbin on 12-26-2024 Anion gap [Moles/Vol] 8 mmol/L 5-15 [facility] Automated lymphocyte count a s percentage of total leukocytesOrdered By: Mary Corbin on 12-26-2024 Lymphocytes/100 WBC Auto (Unsp spec) 25.0 % 19-41 [facility] BUN/creatinine ratioOrdered By: Mary Corbin on 12-26-2024 Urea nitrogen/Creatinine [Mass ratio] 22.4 mg/mg High 10-20 [facility] Basic Metabolic Profile (BMP )on 12-26-2024 BUN/CRE 22.4 RATIO High - [facility] Comment on above: Performed By: #### L 500.2500, L100.0100 ####[facility] [address] [place], [place], [id number] Calcium [Mass/Vol] 9.0 mg/dL Normal 7.6-11.0 [facility] Comment on above: Performed By: #### L 500.2500, L100.0100 ####[facility] [address] [place], [address] Chloride [Moles/Vol] 104 mmol/L Normal 98-108 [facility] Comment on above: Performed By: #### L 500.2500, L100.0100 ####[facility] [address] [place], [address] CO2 [Moles/Vol] 25.5 mmol/L Normal 21.0-32.0 [facility] Comment on above: Performed By: #### L 500.2500, L100.0100 ####[facility] [address] [place], [address] Creatinine [Mass/Vol] 0.67 mg/dL Low 0.70-1.20 [facility] Comment on above: Performed By: #### L 500.2500, L100.0100 ####[facility] [address] [place], [address] ECRCL 117.54 ml/min Normal 50-250 [facility] Comment on above: Performed By: #### L 500.2500, L100.0100 ####[facility] [address] [place], [address] GAP 8 Normal 5-15 [facility] Comment on above: Performed By: #### L 500.2500, L100.0100 ####[facility] [address] [place], [address] GFR/1.73 sq M.predicted among non-blacks MDRD (S/P/Bld) [Vol rate/Area] 113 mL/min/{1.73_m2} Normal >60 [facility] Comment on above: Result Comment: mL/m in/1.73m2 CKD-EPI Creatinine Equation (2020) Performed By: #### L 500.2500, L100.0100 ####[facility] [address] [place], [address] Glucose [Mass/Vol] 84 mg/dL Normal 70-99 [facility] Comment on above: Performed By: #### L 500.2500, L100.0100 ####[facility] [address] [place], [address] Potassium [Moles/Vol] 4.1 mmol/L Normal 3.3-5.1 [facility] Comment on above: Performed By: #### L 500.2500, L100.0100 ####[facility] [address] [place], [address] Sodium [Moles/Vol] 138 mmol/L Normal 133-145 [facility] Comment on above: Performed By: #### L 500.2500, L100.0100 ####[facility] [address] [place], [address] Urea nitrogen [Mass/Vol] 15 mg/dL Normal 4-19 [facility] Comment on above: Performed By: #### L 500.2500, L100.0100 ####[facility] [address] [place], [address] Basophil percentageOrdered B y: Mary Corbin on 12-26-2024 Basophils/100 WBC (Bld) 0.8 % 0-1 [facility] Bedside Glucoseon 12-26-2024 FINGERSTICK GLU 106 mg/dL Normal 74-106 [facility] Comment on above: Result Comment: KIARA ADAME OF PATIENT CARE PER NURSING PROTOCOL Performed By: #### L 501.080 ####[facility] [address] [place], [address] Bilirubin Test strip Ql (U)O rdered By: Mary Corbin on 12-26-2024 Bilirubin Ql (U) Negative Negative [facility] Brain/Head without Contrasto n 12-26-2024 Brain/Head without Contrast Normal [facility] CBC W/Diff, Automatedon 12-03 Absolute Lymph 1.91 X10 3/uL Normal 0.83-4.51 [facility] Comment on above: Performed By: #### L 500.2500, L100.0100 ####[facility] [address] [place], [address] Absolute Neut 4.8 X10 3/uL Normal 2.0-7.7 [facility] Comment on above: Performed By: #### L 500.2500, L100.0100 ####[facility] [address] [place], [address] Basophils/100 WBC (Bld) 0.8 % Normal 0-1 [facility] Comment on above: Performed By: #### L 500.2500, L100.0100 ####[facility] [address] [place], [address] Eosinophils/100 WBC (Bld) 1.2 % Normal 0-5 [facility] Comment on above: Performed By: #### L 500.2500, L100.0100 ####[facility] [address] [place], [address] Erythrocyte distribution width (RBC) [Ratio] 12.1 % Normal 11.6-14.6 [facility] Comment on above: Performed By: #### L 500.2500, L100.0100 ####[facility] [address] [place], [address] Hematocrit (Bld) [Volume fraction] 43.3 % Normal 37-47 [facility] Comment on above: Performed By: #### L 500.2500, L100.0100 ####[facility] [address] [place], [address] Hemoglobin (Bld) [Mass/Vol] 14.1 g/dL Normal 12.0-15.0 [facility] Comment on above: Performed By: #### L 500.2500, L100.0100 ####[facility] [address] [place], [address] IG% 0.500 Normal 0.0-0.9 [facility] Comment on above: Result Comment: IG% - Immature Granulocytes (promyelocytes, myelocytes andmetamyelocytes) > 1% indicates that a LEFT SHIFT is Present. Performed By: #### L 500.2500, L100.0100 ####[facility] [address] [place], [address] Lymphocytes/100 WBC (Bld) 25.0 % Normal 19-41 [facility] Comment on above: Performed By: #### L 500.2500, L100.0100 ####[facility] [address] [place], [address] MCH (RBC) [Entitic mass] 30.5 pg Normal 27.0-32.0 [facility] Comment on above: Performed By: #### L 500.2500, L100.0100 ####[facility] [address] [place], [address] MCHC (RBC) [Mass/Vol] 32.6 g/dL Normal 32-36 [facility] Comment on above: Performed By: #### L 500.2500, L100.0100 ####[facility] [address] [place], [address] MCV (RBC) [Entitic vol] 93.5 fL Normal 81-99 [facility] Comment on above: Performed By: #### L 500.2500, L100.0100 ####[facility] [address] [place], [address] Monocytes/100 WBC (Bld) 9.2 % Normal 0-10 [facility] Comment on above: Performed By: #### L 500.2500, L100.0100 ####[facility] [address] [place], [address] Neutrophils/100 WBC (Bld) 63.3 % Normal 47-70 [facility] Comment on above: Performed By: #### L 500.2500, L100.0100 ####[facility] [address] [place], [address] Nucleated RBC (Bld) [#/Vol] 0 10*3/uL Normal 0-5 [facility] Comment on above: Performed By: #### L 500.2500, L100.0100 ####[facility] [address] [place], [address] Platelet mean volume (Bld) [Entitic vol] 9.8 fL Normal 6.2-12.0 [facility] Comment on above: Performed By: #### L 500.2500, L100.0100 ####[facility] [address] [place], [address] Platelets (Bld) [#/Vol] 337 10*3/uL Normal 150-450 [facility] Comment on above: Performed By: #### L 500.2500, L100.0100 ####[facility] [address] [place], [address] RBC (Bld) [#/Vol] 4.63 10*6/uL Normal 4.2-5.4 [facility] Comment on above: Performed By: #### L 500.2500, L100.0100 ####[facility] [address] [place], [address] RDW SD 42.1 fl Normal 35.1-43.9 [facility] Comment on above: Performed By: #### L 500.2500, L100.0100 ####[facility] [address] [place], [address] WBC (Bld) [#/Vol] 7.6 10*3/uL Normal 4.4-11.0 [facility] Comment on above: Performed By: #### L 500.2500, L100.0100 ####[facility] [address] [place], [address] Carbon dioxide, total [Moles /volume] in Central venous bloodOrdered By: Mary Corbin on 12-26-2024 CO2 [Moles/Vol] 25.5 mmol/L 21.0-32.0 [facility] Chloride assayOrdered By: Vinh Corbin on 12-26-2024 Chloride [Moles/Vol] 104 mmol/L 98-108 [facility] Electrocardiogram reportOrde red By: Law Eduardo on 12-26-2024 EKG study [facility] Work Phone: Emergency Department Summary on 12-26-2024 Emergency Department Summary Normal [facility] Eosinophil percentageOrdered By: Mary Corbin on 12-26-2024 Eosinophils/100 WBC (Bld) 1.2 % 0-5 [facility] Erythrocyte distribution wid th ratioOrdered By: Mary Corbin on 12-26-2024 Erythrocyte distribution width (RBC) [Ratio] 12.1 % 11.6-14.6 [facility] Erythrocyte distribution wid th standard deviationOrdered By: Mary Corbin on 12-26-2024 Erythrocyte distribution width (RBC) [Ratio] 42.1 fl 35.1-43.9 [facility] Glomerular filtration rate ( GFR) estimation/1.73 sq m using serum, plasma, or whole bOrdered By: Mary Corbin on 12-26-2024 GFR/1.73 sq M.predicted among non-blacks MDRD (S/P/Bld) [Vol rate/Area] 113 mL/min/{1.73_m2} >60 [facility] Glucose measurement at bedsi deOrdered By: ED PROVIDER on 12-26-2024 Glucose [Mass/Vol] 106 mg/dL 74-106 [facility] Hematocrit Auto (Bld) [Volum e fraction]Ordered By: Mary Corbin on 12-26-2024 Hematocrit (Bld) [Volume fraction] 43.3 % 37-47 [facility] Hemoglobin measurementOrdere d By: Mary Corbin on 12-26-2024 Hemoglobin (Bld) [Mass/Vol] 14.1 g/dL 12.0-15.0 [facility] Immature granulocytes/100 WB C Auto (Bld)Ordered By: Mary Corbin on 12-26-2024 Immature granulocytes/100 WBC (Bld) 0.500 % 0.0-0.9 [facility] Ketones Test strip Ql (U)Ord ered By: Mary Corbin on 12-26-2024 Ketones Ql (U) Negative Negative [facility] MCV (mean corpuscular volume ) determinationOrdered By: Mary Corbin on 12-26-2024 MCV (RBC) [Entitic vol] 93.5 fL 81-99 [facility] Mean corpuscular hemoglobin (MCH) determinationOrdered By: Mary Corbin on 12-26-2024 MCH (RBC) [Entitic mass] 30.5 pg 27.0-32.0 [facility] Monocyte percentageOrdered B y: Mary Corbin on 12-26-2024 Monocytes/100 WBC (Bld) 9.2 % 0-10 [facility] Mucus LM Ql (Urine sed)Order ed By: Mary Corbin on 12-26-2024 Mucus Ql (Urine sed) 0 SEEN /hpf [facility] Neutrophil percentageOrdered By: Mary Corbin on 12-26-2024 Neutrophils/100 WBC (Bld) 63.3 % 47-70 [facility] Nitrite Test strip Ql (U)Ord ered By: Mary Corbin on 12-26-2024 Nitrite Ql (U) Negative Negative [facility] Platelet countOrdered By: Vinh Corbin on 12-26-2024 Platelets (Bld) [#/Vol] 337 10*3/uL 150-450 [facility] Potassium measurement (mass/ volume)Ordered By: Mary Corbin on 12-26-2024 Potassium (Unsp spec) [Mass/Vol] 4.1 mmol/L 3.3-5.1 [facility] Protein Test strip Ql (U)Ord ered By: Mary Corbin on 12-26-2024 Protein Ql (U) Negative Negative [facility] RBC Auto (Bld) [#/Vol]Ordere d By: Mary Corbin on 12-26-2024 RBC (Bld) [#/Vol] 4.63 10*6/uL 4.2-5.4 [facility] Serum creatinine measurement (mass/volume)Ordered By: Mary Corbin on 12-26-2024 Creatinine [Mass/Vol] 0.67 mg/dL Low 0.70-1.20 [facility] Serum glucose measurement (m ass/volume)Ordered By: Mary Corbin on 12-26-2024 Glucose [Mass/Vol] 84 mg/dL 70-99 [facility] Serum or plasma calcium sasha urement (mass/volume)Ordered By: Mary Corbin on 12-26-2024 Calcium [Mass/Vol] 9.0 mg/dL 7.6-11.0 [facility] Serum or plasma urea nitroge n measurement (mass/volume)Ordered By: Mary Corbin on 12-26-2024 Urea nitrogen [Mass/Vol] 15 mg/dL 4-19 [facility] Sodium levelOrdered By: Madyson Corbin on 12-26-2024 Sodium [Moles/Vol] 138 mmol/L 133-145 [facility] Squamous epithelial cells de tection in urine sediment by light microscopyOrdered By: Mary Corbin on 12-26-2024 Epithelial cells.squamous LM Ql (Urine sed) 0-5 SEEN /hpf 5-10 [facility] Urinalysis, Completeon 12-26 WBC 0-5 SEEN Normal 0-5 [facility] Comment on above: Order Comment: CLEAN CATCH Performed By: #### L 400.0001 ####[facility] [address] [place], [place], [id number] EPI,SQUAMOUS 0-5 SEEN Normal -10 [facility] Comment on above: Order Comment: CLEAN CATCH Performed By: #### L 400.0001 ####[facility] [address] [place], [place], [id number] BACTERIA 0 SEEN Normal None Seen [facility] Comment on above: Order Comment: CLEAN CATCH Performed By: #### L 400.0001 ####[facility] [address] [place], [place], [id number] Mucus Ql (Urine sed) 0 SEEN Normal [facility] Comment on above: Order Comment: CLEAN CATCH Performed By: #### L 400.0001 ####[facility] [address] [place], [place], [address] RBC 0 SEEN Normal 0-5 [facility] Comment on above: Order Comment: CLEAN CATCH Performed By: #### L 400.0001 ####[facility] [address] [place], [place], [address] Urine clarityOrdered By: Carmen Corbin on 12-26-2024 Clarity (U) Clear Clear [facility] Urine color determinationOrd ered By: Mary Corbin on 12-26-2024 Color (U) Yellow Yellow [facility] Urine cultureOrdered By: Carmen Corbin on 12-26-2024 Bacteria identified Cx Nom (U) Positive Abnormal [facility] Urine glucose detectionOrder ed By: Mary Corbin on 12-26-2024 Glucose Ql (U) Normal mg/dl Normal [facility] Urine leukocyte esterase det ection by dipstickOrdered By: Mary Corbin on 12-26-2024 Leukocyte esterase Test strip Ql (U) 100 /ul High Negative [facility] Urine pHOrdered By: Mary menezes on 12-26-2024 pH (U) 6.5 [pH] 5.0 - 8.0 [facility] Urine sediment bacteria coun t by microscopy (number/high power field)Ordered By: Mary Corbin on 12-26-2024 Bacteria LM.HPF (Urine sed) [#/Area] 0 /[HPF] None Seen [facility] Urine specific gravity measu rementOrdered By: Mary Corbin on 12-26-2024 Specific gravity (U) [Rel density] 1.010 1.002-1.03 0 [facility] Urine urobilinogen measureme ntOrdered By: Mary Corbin on 12-26-2024 Urobilinogen Ql (U) Normal mg/dl Normal [facility] White blood cell (WBC) count Ordered By: Mary Corbin on 12-26-2024 WBC (Bld) [#/Vol] 7.6 10*3/uL 4.4-11.0 [facility] White blood cell countOrdere d By: Mary Corbin on 12-26-2024 White blood cell count 0-5 SEEN /hpf 0-5 [facility] Absolute lymphocyte countOrd ered By: [facility] Torri Zapata on 12-24-2024 Lymphocytes Auto (Unsp spec) [#/Vol] 1.37 10*3/uL 0.83-4.51 [facility] Anion gap in Serum or Plasma Ordered By: [facility] Torri Zapata on 12-24-2024 Anion gap [Moles/Vol] 13 mmol/L 5-15 [facility] Automated lymphocyte count a s percentage of total leukocytesOrdered By: [facility] Torri Zapata on 12-24-2024 Lymphocytes/100 WBC Auto (Unsp spec) 28.0 % 19-41 [facility] BUN/creatinine ratioOrdered By: [facility] Torri Zapata on 12-24-2024 Urea nitrogen/Creatinine [Mass ratio] 21.5 mg/mg High 10-20 [facility] Basophil percentageOrdered B y: [facility] Torri Zapata on 12-24-2024 Basophils/100 WBC (Bld) 0.4 % 0-1 [facility] Bilirubin, totalOrdered By: [facility] Torri Zapata on 12-24-2024 Bilirubin [Mass/Vol] 0.32 mg/dL 0.00-1.30 [facility] CBC W/Diff, Automatedon 12-03 PLT EST ADEQUATE Normal ADEQ [facility] Comment on above: Performed By: #### L 506.1001, L100.0100, L500.4050, L501.9520 ####[facility] [facility] [address] [place], [place], [id number] Carbon dioxide, total [Moles /volume] in Central venous bloodOrdered By: [facility] Torri Zapata on 12-24-2024 CO2 [Moles/Vol] 21.8 mmol/L 21.0-32.0 [facility] Chloride assayOrdered By: [facility] Torri Zapata on 12-24-2024 Chloride [Moles/Vol] 104 mmol/L 98-108 [facility] Comprehensive Metabolic Prof ilon 12-24-2024 Albumin [Mass/Vol] 4.1 g/dL Normal 3.5-5.0 [facility] Comment on above: Order Comment: FAXRE SULTS TO [phone] Performed By: #### L 506.1001, L100.0100, L500.4050, L501.9520 ####[facility] [address] [place], [address] Albumin/Globulin [Mass ratio] 1.7 {ratio} Normal 0.9-2.4 [facility] Comment on above: Order Comment: FAXRE SULTS TO [phone] Performed By: #### L 506.1001, L100.0100, L500.4050, L501.9520 ####[facility] [address] [place], [address] ALK PHOS 87 U/L Normal 35-104 [facility] Comment on above: Order Comment: FAXRE SULTS TO [phone] Performed By: #### L 506.1001, L100.0100, L500.4050, L501.9520 ####[facility] [address] [place], [address] ALT [Catalytic activity/Vol] 26 U/L Normal <=34 [facility] Comment on above: Order Comment: FAXRE SULTS TO [phone] Performed By: #### L 506.1001, L100.0100, L500.4050, L501.9520 ####[facility] [address] [place], [address] AST [Catalytic activity/Vol] 21 U/L Normal <=31 [facility] Comment on above: Order Comment: FAXRE SULTS TO [phone] Result Comment: Hemo lysis present, Results??could be affected.?? Performed By: #### L 506.1001, L100.0100, L500.4050, L501.9520 ####[facility] [address] [place], [address] Bilirubin [Mass/Vol] 0.32 mg/dL Normal 0.00-1.30 [facility] Comment on above: Order Comment: FAXRE SULTS TO [phone] Performed By: #### L 506.1001, L100.0100, L500.4050, L501.9520 ####[facility] [address] [place], [address] BUN/CRE 21.5 RATIO High 10-20 [facility] Comment on above: Order Comment: FAXRE SULTS TO [phone] Performed By: #### L 506.1001, L100.0100, L500.4050, L501.9520 ####[facility] [address] [place], [address] Calcium [Mass/Vol] 8.9 mg/dL Normal 7.6-11.0 [facility] Comment on above: Order Comment: FAXRE SULTS TO [phone] Performed By: #### L 506.1001, L100.0100, L500.4050, L501.9520 ####[facility] [address] [place], [address] Chloride [Moles/Vol] 104 mmol/L Normal 98-108 [facility] Comment on above: Order Comment: FAXRE SULTS TO [phone] Performed By: #### L 506.1001, L100.0100, L500.4050, L501.9520 ####[facility] [address] [place], [address] CO2 [Moles/Vol] 21.8 mmol/L Normal 21.0-32.0 [facility] Comment on above: Order Comment: FAXRE SULTS TO [phone] Performed By: #### L 506.1001, L100.0100, L500.4050, L501.9520 ####[facility] [address] [place], [address] Creatinine [Mass/Vol] 0.60 mg/dL Low 0.70-1.20 [facility] Comment on above: Order Comment: FAXRE SULTS TO [phone] Performed By: #### L 506.1001, L100.0100, L500.4050, L501.9520 ####[facility] [address] [place], [address] GAP 13 Normal 5-15 [facility] Comment on above: Order Comment: FAXRE SULTS TO [phone] Performed By: #### L 506.1001, L100.0100, L500.4050, L501.9520 ####[facility] [address] [place], [address] GFR/1.73 sq M.predicted among non-blacks MDRD (S/P/Bld) [Vol rate/Area] 116 mL/min/{1.73_m2} Normal >60 [facility] Comment on above: Order Comment: FAXRE SULTS TO [phone] Result Comment: mL/m in/1.73m2 CKD-EPI Creatinine Equation (2020) Performed By: #### L 506.1001, L100.0100, L500.4050, L501.9520 ####[facility] [address] [place], [address] Globulin (S) [Mass/Vol] 2.4 g/dL Normal 2.2-4.2 [facility] Comment on above: Order Comment: FAXRE SULTS TO [phone] Performed By: #### L 506.1001, L100.0100, L500.4050, L501.9520 ####[facility] [address] [place], [address] Glucose [Mass/Vol] 84 mg/dL Normal 70-99 [facility] Comment on above: Order Comment: FAXRE SULTS TO [phone] Performed By: #### L 506.1001, L100.0100, L500.4050, L501.9520 ####[facility] [address] [place], [address] Potassium [Moles/Vol] 4.3 mmol/L Normal 3.3-5.1 [facility] Comment on above: Order Comment: FAXRE SULTS TO [phone] Result Comment: Hemo lysis present, Results??could be affected.?? Performed By: #### L 506.1001, L100.0100, L500.4050, L501.9520 ####[facility] [address] [place], [address] Sodium [Moles/Vol] 138 mmol/L Normal 133-145 [facility] Comment on above: Order Comment: FAXRE SULTS TO [phone] Performed By: #### L 506.1001, L100.0100, L500.4050, L501.9520 ####[facility] [address] [place], [address] T PROT 6.4 g/dL Normal 5.9-8.4 [facility] Comment on above: Order Comment: FAXRE SULTS TO [phone] Performed By: #### L 506.1001, L100.0100, L500.4050, L501.9520 ####[facility] [address] [place], [address] Urea nitrogen [Mass/Vol] 13 mg/dL Normal 4-19 [facility] Comment on above: Order Comment: FAXRE SULTS TO [phone] Performed By: #### L 506.1001, L100.0100, L500.4050, L501.9520 ####[facility] [address] [place], [address] Eosinophil percentageOrdered By: [facility] Torri Zapata on 12-24-2024 Eosinophils/100 WBC (Bld) 1.4 % 0-5 [facility] Erythrocyte distribution wid th ratioOrdered By: [facility] on 12-24-2024 Erythrocyte distribution width (RBC) [Ratio] 11.9 % 11.6-14.6 [facility] Erythrocyte distribution wid th standard deviationOrdered By: [facility] Torri Zapata on 12-24-2024 Erythrocyte distribution width (RBC) [Ratio] 41.1 fl 35.1-43.9 [facility] Glomerular filtration rate ( GFR) estimation/1.73 sq m using serum, plasma, or whole bOrdered By: [facility] Torri Zapata on 12-24-2024 GFR/1.73 sq M.predicted among non-blacks MDRD (S/P/Bld) [Vol rate/Area] 116 mL/min/{1.73_m2} >60 [facility] Hematocrit Auto (Bld) [Volum e fraction]Ordered By: [facility] Benny on 12-24-2024 Hematocrit (Bld) [Volume fraction] 40.4 % 37-47 [facility] Hemoglobin measurementOrdere d By: [facility] Torri Zapata on 12-24-2024 Hemoglobin (Bld) [Mass/Vol] 13.3 g/dL 12.0-15.0 [facility] Immature granulocytes/100 WB C Auto (Bld)Ordered By: [facility] Torri Zapata on 12-24-2024 Immature granulocytes/100 WBC (Bld) 0.200 % 0.0-0.9 [facility] MCV (mean corpuscular volume ) determinationOrdered By: [facility] Torri Zapata on 12-24-2024 MCV (RBC) [Entitic vol] 93.1 fL 81-99 [facility] Mean corpuscular hemoglobin (MCH) determinationOrdered By: [facility] Torri Zapata on 12-24-2024 MCH (RBC) [Entitic mass] 30.6 pg 27.0-32.0 [facility] Monocyte percentageOrdered B y: [facility] Torri Zapata on 12-24-2024 Monocytes/100 WBC (Bld) 8.0 % 0-10 [facility] Neutrophil percentageOrdered By: [facility] Torri Zapata on 12-24-2024 Neutrophils/100 WBC (Bld) 62.0 % 47-70 [facility] No Panel InformationOrdered By: BENNETT Torri Benny on 12-24-2024 21 U/L <32 [facility] Platelet countOrdered By: [facility] Torriconner Zapata on 12-24-2024 Platelet count TNP [facility] Platelet estimateOrdered By: [facility] Torri Benny on 12-24-2024 Platelets LM Ql (Bld) ADEQUATE ADEQ [facility] Potassium measurement (mass/ volume)Ordered By: [facility] Torri Benny on 12-24-2024 Potassium (Unsp spec) [Mass/Vol] 4.3 mmol/L 3.3-5.1 [facility] RBC Auto (Bld) [#/Vol]Ordere d By: [facility] Torri Benny on 12-24-2024 RBC (Bld) [#/Vol] 4.34 10*6/uL 4.2-5.4 [facility] Serum creatinine measurement (mass/volume)Ordered By: BENNETT Torri Benny on 12-24-2024 Creatinine [Mass/Vol] 0.60 mg/dL Low 0.70-1.20 [facility] Serum globulin measurementOr dered By: [facility] Torri Benny on 12-24-2024 Globulin (S) [Mass/Vol] 2.4 g/dL 2.2-4.2 [facility] Serum glucose measurement (m ass/volume)Ordered By: [facility] Torri Benny on 12-24-2024 Glucose [Mass/Vol] 84 mg/dL 70-99 [facility] Serum or plasma alanine quintana otransferase (ALT) measurementOrdered By: [facility] Torriconner Zapata on 12-24-2024 ALT [Catalytic activity/Vol] 26 U/L <35 [facility] Serum or plasma albumin sasha urement (mass/volume)Ordered By: [facility] Torriconner Zapata on 12-24-2024 Albumin [Mass/Vol] 4.1 g/dL 3.5-5.0 [facility] Serum or plasma albumin/glob ulin mass ratioOrdered By: [facility] Torri Benny on 12-24-2024 Albumin/Globulin [Mass ratio] 1.7 {ratio} 0.9-2.4 [facility] Serum or plasma alkaline malvin sphatase measurementOrdered By: [facility] Torri Benny on 12-24-2024 ALP [Catalytic activity/Vol] 87 U/L 35-104 [facility] Serum or plasma calcium sasha urement (mass/volume)Ordered By: [facility] Torri Benny on 12-24-2024 Calcium [Mass/Vol] 8.9 mg/dL 7.6-11.0 [facility] Serum or plasma urea nitroge n measurement (mass/volume)Ordered By: [facility] Torri Benny on 12-24-2024 Urea nitrogen [Mass/Vol] 13 mg/dL 4-19 [facility] Sodium levelOrdered By: [facility] 12-24-2024 Sodium [Moles/Vol] 138 mmol/L 133-145 [facility] TSH DL <= 0.005 mIU/L QnOrde red By: [facility] Benny on 12-24-2024 TSH Qn 2.410 uIU/mL 0.300-4.20 0 [facility] Thyroid Stim Hormone (TSH)on 12-24-2024 TSH 2.410 uIU/mL Normal 0.300-4.20 0 [facility] Comment on above: Order Comment: PIERRE EVANS TO [phone] Performed By: #### L 506.1001, L100.0100, L500.4050, L501.9520 ####[facility] [address] [place], [place], [id number] Total proteinOrdered By: [facility] Torri Zapata on 12-24-2024 Protein [Mass/Vol] 6.4 g/dL 5.9-8.4 [facility] Vitamin D,25 Hydroxyon 12-24 Vitamin D 25-OH 13.3 ng/mL Low 30-100 [facility] Comment on above: Order Comment: PIERRE EVANS TO [phone] Result Comment: Stephanie min D StatusDeficiency: <20 ng/mL (50nmol/L)Insufficiency: 20-30 ng/mL (50-75 nmol/L)Sufficiency: 30-100 ng/mL (75-250 nmol/L)Toxicity: >100 ng/mL (>250 nmol/L) Performed By: #### L 506.1001, L100.0100, L500.4050, L501.9520 ####[facility] [address] [place], [address] White blood cell (WBC) count Ordered By: [facility] Torri Zapata on 12-24-2024 WBC (Bld) [#/Vol] 4.9 10*3/uL 4.4-11.0 [facility] Neurology Visit Reporton Neurology Visit Report Normal [facility] Anion gap in Serum or Plasma Ordered By: Netta Domingo on 12-03-2024 Anion gap [Moles/Vol] 9 mmol/L - [facility] BUN/creatinine ratioOrdered By: Netta Domingo on 12-03-2024 Urea nitrogen/Creatinine [Mass ratio] 13.8 mg/mg - [facility] Basic Metabolic Profile (BMP )on 12-03-2024 BUN/CRE 13.8 RATIO Normal - [facility] Comment on above: Performed By: #### L 500.2500, L100.0500 ####[facility] [address] [place], [address] Calcium [Mass/Vol] 8.9 mg/dL Normal 7.6-11.0 [facility] Comment on above: Performed By: #### L 500.2500, L100.0500 ####[facility] [address] [place], [address] Chloride [Moles/Vol] 105 mmol/L Normal 98-108 [facility] Comment on above: Performed By: #### L 500.2500, L100.0500 ####[facility] [address] [place], [address] CO2 [Moles/Vol] 23.5 mmol/L Normal 21.0-32.0 [facility] Comment on above: Performed By: #### L 500.2500, L100.0500 ####[facility] [address] [place], [address] Creatinine [Mass/Vol] 0.64 mg/dL Low 0.70-1.20 [facility] Comment on above: Performed By: #### L 500.2500, L100.0500 ####[facility] [address] [place], [address] ECRCL 117.64 ml/min Normal 50-250 [facility] Comment on above: Performed By: #### L 500.2500, L100.0500 ####[facility] [address] [place], [address] GAP 9 Normal 5-15 [facility] Comment on above: Performed By: #### L 500.2500, L100.0500 ####[facility] [address] [place], [address] GFR/1.73 sq M.predicted among non-blacks MDRD (S/P/Bld) [Vol rate/Area] 114 mL/min/{1.73_m2} Normal >60 [facility] Comment on above: Result Comment: mL/m in/1.73m2 CKD-EPI Creatinine Equation (2020) Performed By: #### L 500.2500, L100.0500 ####[facility] [address] [place], [address] Glucose [Mass/Vol] 107 mg/dL High 70-99 [facility] Comment on above: Performed By: #### L 500.2500, L100.0500 ####[facility] [address] [place], [address] Potassium [Moles/Vol] 3.9 mmol/L Normal 3.3-5.1 [facility] Comment on above: Performed By: #### L 500.2500, L100.0500 ####[facility] [address] [place], [address] Sodium [Moles/Vol] 137 mmol/L Normal 133-145 [facility] Comment on above: Performed By: #### L 500.2500, L100.0500 ####[facility] [address] [place], [address] Urea nitrogen [Mass/Vol] 9 mg/dL Normal 4-19 [facility] Comment on above: Performed By: #### L 500.2500, L100.0500 ####[facility] [address] [place], [address] CBC-Complete Blood Cnt No Di ffon 12-03-2024 Erythrocyte distribution width (RBC) [Ratio] 12.4 % Normal 11.6-14.6 [facility] Comment on above: Performed By: #### L 500.2500, L100.0500 ####[facility] [address] [place], [address] Hematocrit (Bld) [Volume fraction] 39.2 % Normal 37-47 [facility] Comment on above: Performed By: #### L 500.2500, L100.0500 ####[facility] [address] [place], [address] Hemoglobin (Bld) [Mass/Vol] 12.9 g/dL Normal 12.0-15.0 [facility] Comment on above: Performed By: #### L 500.2500, L100.0500 ####[facility] [address] [place], [address] MCH (RBC) [Entitic mass] 30.9 pg Normal 27.0-32.0 [facility] Comment on above: Performed By: #### L 500.2500, L100.0500 ####[facility] [address] [place], [address] MCHC (RBC) [Mass/Vol] 32.9 g/dL Normal 32-36 [facility] Comment on above: Performed By: #### L 500.2500, L100.0500 ####[facility] [address] [place], [address] MCV (RBC) [Entitic vol] 93.8 fL Normal 81-99 [facility] Comment on above: Performed By: #### L 500.2500, L100.0500 ####[facility] [address] [place], [address] Platelet mean volume (Bld) [Entitic vol] 10.0 fL Normal 6.2-12.0 [facility] Comment on above: Performed By: #### L 500.2500, L100.0500 ####[facility] [address] [place], [address] Platelets (Bld) [#/Vol] 243 10*3/uL Normal 150-450 [facility] Comment on above: Performed By: #### L 500.2500, L100.0500 ####[facility] [address] [place], [address] RBC (Bld) [#/Vol] 4.18 10*6/uL Low 4.2-5.4 [facility] Comment on above: Performed By: #### L 500.2500, L100.0500 ####[facility] [address] [place], [address] RDW SD 42.5 fl Normal 35.1-43.9 [facility] Comment on above: Performed By: #### L 500.2500, L100.0500 ####[facility] [address] [place], [address] WBC (Bld) [#/Vol] 8.1 10*3/uL Normal 4.4-11.0 [facility] Comment on above: Performed By: #### L 500.2500, L100.0500 ####[facility] [address] [place], [address] Carbon dioxide, total [Moles /volume] in Central venous bloodOrdered By: Netta Domingo on 12-03-2024 CO2 [Moles/Vol] 23.5 mmol/L 21.0-32.0 [facility] Chloride assayOrdered By: Bakari Domingo on 12-03-2024 Chloride [Moles/Vol] 105 mmol/L 98-108 [facility] Erythrocyte distribution wid th ratioOrdered By: Netta Domingo on 12-03-2024 Erythrocyte distribution width (RBC) [Ratio] 12.4 % 11.6-14.6 [facility] Erythrocyte distribution wid th standard deviationOrdered By: Netta Domingo on 12-03-2024 Erythrocyte distribution width (RBC) [Ratio] 42.5 fl 35.1-43.9 [facility] Glomerular filtration rate ( GFR) estimation/1.73 sq m using serum, plasma, or whole bOrdered By: Netta Domingo on 12-03-2024 GFR/1.73 sq M.predicted among non-blacks MDRD (S/P/Bld) [Vol rate/Area] 114 mL/min/{1.73_m2} >60 [facility] Hematocrit Auto (Bld) [Volum e fraction]Ordered By: Netta Domingo on 12-03-2024 Hematocrit (Bld) [Volume fraction] 39.2 % 37-47 [facility] Hemoglobin measurementOrdere d By: Netta Domingo on 12-03-2024 Hemoglobin (Bld) [Mass/Vol] 12.9 g/dL 12.0-15.0 [facility] MCV (mean corpuscular volume ) determinationOrdered By: Netta Domingo on 12-03-2024 MCV (RBC) [Entitic vol] 93.8 fL 81-99 [facility] Mean corpuscular hemoglobin (MCH) determinationOrdered By: Netta Domingo on 12-03-2024 MCH (RBC) [Entitic mass] 30.9 pg 27.0-32.0 [facility] Platelet countOrdered By: Bakari Mendozamilton on 12-03-2024 Platelets (Bld) [#/Vol] 243 10*3/uL 150-450 [facility] Potassium measurement (mass/ volume)Ordered By: Netta Mendozamilton on 12-03-2024 Potassium (Unsp spec) [Mass/Vol] 3.9 mmol/L 3.3-5.1 [facility] RBC Auto (Bld) [#/Vol]Ordere d By: Netta Mendozamilton on 12-03-2024 RBC (Bld) [#/Vol] 4.18 10*6/uL Low 4.2-5.4 [facility] Serum creatinine measurement (mass/volume)Ordered By: Netta Mendozamilton on 12-03-2024 Creatinine [Mass/Vol] 0.64 mg/dL Low 0.70-1.20 [facility] Serum glucose measurement (m ass/volume)Ordered By: Netta Mendozamilton on 12-03-2024 Glucose [Mass/Vol] 107 mg/dL High 70-99 [facility] Serum or plasma calcium sasha urement (mass/volume)Ordered By: Netta Mendozamilton on 12-03-2024 Calcium [Mass/Vol] 8.9 mg/dL 7.6-11.0 [facility] Serum or plasma urea nitroge n measurement (mass/volume)Ordered By: Netta Mendozamilton on 12-03-2024 Urea nitrogen [Mass/Vol] 9 mg/dL - [facility] Sodium levelOrdered By: Netta Mendozamilton on 12-03-2024 Sodium [Moles/Vol] 137 mmol/L 133-145 [facility] White blood cell (WBC) count Ordered By: Netta Mendozamilton on 12-03-2024 WBC (Bld) [#/Vol] 8.1 10*3/uL 4.4-11.0 [facility] Discharge Instructionon 11-02 Discharge Instruction Normal [facility] Basic Metabolic Profile (BMP )on 11-25-2024 BUN Normal - [facility] Comment on above: Result Comment: Canc elled via OM: Ordered Performed By: #### L 100.0500, L500.2500 ####[facility] [address] [place], [address] BUN/CRE Normal 10-20 [facility] Comment on above: Result Comment: Canc elled via OM: MD Ordered Performed By: #### L 100.0500, L500.2500 ####[facility] [address] [place], [address] Calcium Normal 7.6-11.0 [facility] Comment on above: Result Comment: Canc elled via OM: MD Ordered Performed By: #### L 100.0500, L500.2500 ####[facility] [address] [place], [address] CL Normal 98-108 [facility] Comment on above: Result Comment: Canc elled via OM: MD Ordered Performed By: #### L 100.0500, L500.2500 ####[facility] [address] [place], [address] CO2 Normal 21.0-32.0 [facility] Comment on above: Result Comment: Canc elled via OM: MD Ordered Performed By: #### L 100.0500, L500.2500 ####[facility] [address] [place], [address] CREAT,SERUM Normal 0.70-1.20 [facility] Comment on above: Result Comment: Canc elled via OM: MD Ordered Performed By: #### L 100.0500, L500.2500 ####[facility] [address] [place], [address] eGFR Normal >60 [facility] Comment on above: Result Comment: Canc elled via OM: MD Ordered Performed By: #### L 100.0500, L500.2500 ####[facility] [address] [place], [address] GAP Normal 5-15 [facility] Comment on above: Result Comment: Canc elled via OM: MD Ordered Performed By: #### L 100.0500, L500.2500 ####[facility] [address] [place], [address] GLU Normal 70-99 [facility] Comment on above: Result Comment: Canc elled via OM: MD Ordered Performed By: #### L 100.0500, L500.2500 ####[facility] [address] [place], [address] Potassium Normal 3.3-5.1 [facility] Comment on above: Result Comment: Canc elled via OM: MD Ordered Performed By: #### L 100.0500, L500.2500 ####[facility] [address] [place], [address] Basic Metabolic Profile (BMP) Normal 133-145 [facility] Comment on above: Result Comment: Canc elled via OM: MD Ordered Performed By: #### L 100.0500, L500.2500 ####[facility] [address] [place], [address] CBC-Complete Blood Cnt No Di ffon 11-25-2024 Erythrocyte distribution width (RBC) [Ratio] 12.4 % Normal 11.6-14.6 [facility] Comment on above: Performed By: #### L 100.0500, L500.2500 ####[facility] [address] [place], [address] Hematocrit (Bld) [Volume fraction] 39.4 % Normal 37-47 [facility] Comment on above: Performed By: #### L 100.0500, L500.2500 ####[facility] [address] [place], [address] Hemoglobin (Bld) [Mass/Vol] 12.8 g/dL Normal 12.0-15.0 [facility] Comment on above: Performed By: #### L 100.0500, L500.2500 ####[facility] [address] [place], [address] MCH (RBC) [Entitic mass] 30.4 pg Normal 27.0-32.0 [facility] Comment on above: Performed By: #### L 100.0500, L500.2500 ####[facility] [address] [place], [address] MCHC (RBC) [Mass/Vol] 32.5 g/dL Normal 32-36 [facility] Comment on above: Performed By: #### L 100.0500, L500.2500 ####[facility] [address] [place], [address] MCV (RBC) [Entitic vol] 93.6 fL Normal 81-99 [facility] Comment on above: Performed By: #### L 100.0500, L500.2500 ####[facility] [address] [place], [address] Platelet mean volume (Bld) [Entitic vol] 10.2 fL Normal 6.2-12.0 [facility] Comment on above: Performed By: #### L 100.0500, L500.2500 ####[facility] [address] [place], [address] Platelets (Bld) [#/Vol] 329 10*3/uL Normal 150-450 [facility] Comment on above: Performed By: #### L 100.0500, L500.2500 ####[facility] [address] [place], [address] RBC (Bld) [#/Vol] 4.21 10*6/uL Normal 4.2-5.4 [facility] Comment on above: Performed By: #### L 100.0500, L500.2500 ####[facility] [address] [place], [address] RDW SD 42.5 fl Normal 35.1-43.9 [facility] Comment on above: Performed By: #### L 100.0500, L500.2500 ####[facility] [address] [place], [address] WBC (Bld) [#/Vol] 11.0 10*3/uL Normal 4.4-11.0 [facility] Comment on above: Performed By: #### L 100.0500, L500.2500 ####[facility] [address] [place], [address] Basic Metabolic Profile (BMP )on 11-24-2024 BUN Normal 4-19 [facility] Comment on above: Result Comment: Canc elled via OM: MD Ordered Performed By: #### L 500.2500 ####[facility] [address] [place], [address] BUN/CRE Normal 10-20 [facility] Comment on above: Result Comment: Canc elled via OM: MD Ordered Performed By: #### L 500.2500 ####[facility] [address] [place], [address] Calcium Normal 7.6-11.0 [facility] Comment on above: Result Comment: Canc elled via OM: MD Ordered Performed By: #### L 500.2500 ####[facility] [address] [place], [address] CL Normal 98-108 [facility] Comment on above: Result Comment: Canc elled via OM: MD Ordered Performed By: #### L 500.2500 ####[facility] [address] [place], [address] CO2 Normal 21.0-32.0 [facility] Comment on above: Result Comment: Canc elled via OM: MD Ordered Performed By: #### L 500.2500 ####[facility] [address] [place], [address] CREAT,SERUM Normal 0.70-1.20 [facility] Comment on above: Result Comment: Canc elled via OM: MD Ordered Performed By: #### L 500.2500 ####[facility] [address] [place], [address] eGFR Normal >60 [facility] Comment on above: Result Comment: Canc elled via OM: MD Ordered Performed By: #### L 500.2500 ####[facility] [address] [place], [address] GAP Normal 5-15 [facility] Comment on above: Result Comment: Canc elled via OM: MD Ordered Performed By: #### L 500.2500 ####[facility] [address] [place], [address] GLU Normal 70-99 [facility] Comment on above: Result Comment: Canc elled via OM: MD Ordered Performed By: #### L 500.2500 ####[facility] [address] [place], [address] Potassium Normal 3.3-5.1 [facility] Comment on above: Result Comment: Canc elled via OM: MD Ordered Performed By: #### L 500.2500 ####[facility] [address] [place], [address] Basic Metabolic Profile (BMP) Normal 133-145 [facility] Comment on above: Result Comment: Canc elled via OM: MD Ordered Performed By: #### L 500.2500 ####[facility] [address] [place], [address] Basic Metabolic Profile (BMP )on 11-23-2024 BUN/CRE 14.0 RATIO Normal 10-20 [facility] Comment on above: Performed By: #### L 500.2500 ####[facility] [address] [place], [address] Calcium [Mass/Vol] 9.0 mg/dL Normal 7.6-11.0 [facility] Comment on above: Performed By: #### L 500.2500 ####[facility] [address] [place], [address] Chloride [Moles/Vol] 101 mmol/L Normal 98-108 [facility] Comment on above: Performed By: #### L 500.2500 ####[facility] [address] [place], [address] CO2 [Moles/Vol] 23.1 mmol/L Normal 21.0-32.0 [facility] Comment on above: Performed By: #### L 500.2500 ####[facility] [address] [place], [address] Creatinine [Mass/Vol] 0.63 mg/dL Low 0.70-1.20 [facility] Comment on above: Performed By: #### L 500.2500 ####[facility] [address] [place], [address] ECRCL 118.11 ml/min Normal 50-250 [facility] Comment on above: Performed By: #### L 500.2500 ####[facility] [address] [place], [address] GAP 14 Normal 5-15 [facility] Comment on above: Performed By: #### L 500.2500 ####[facility] [address] [place], [address] GFR/1.73 sq M.predicted among non-blacks MDRD (S/P/Bld) [Vol rate/Area] 114 mL/min/{1.73_m2} Normal >60 [facility] Comment on above: Result Comment: mL/m in/1.73m2 CKD-EPI Creatinine Equation (2020) Performed By: #### L 500.2500 ####[facility] [address] [place], [address] Glucose [Mass/Vol] 87 mg/dL Normal 70-99 [facility] Comment on above: Performed By: #### L 500.2500 ####[facility] [address] [place], [address] Potassium [Moles/Vol] 3.8 mmol/L Normal 3.3-5.1 [facility] Comment on above: Performed By: #### L 500.2500 ####[facility] [address] [place], [address] Sodium [Moles/Vol] 139 mmol/L Normal 133-145 [facility] Comment on above: Performed By: #### L 500.2500 ####[facility] [address] [place], [address] Urea nitrogen [Mass/Vol] 9 mg/dL Normal 4-19 [facility] Comment on above: Performed By: #### L 500.2500 ####[facility] [address] [place], [address] Absolute lymphocyte countOrd ered By: Netta Domingo on 11-18-2024 Lymphocytes Auto (Unsp spec) [#/Vol] 2.80 10*3/uL 0.83-4.51 [facility] Automated lymphocyte count a s percentage of total leukocytesOrdered By: Netta Domingo on 11-18-2024 Lymphocytes/100 WBC Auto (Unsp spec) 28.2 % 19-41 [facility] Basophil percentageOrdered B y: Netta Domingo on 11-18-2024 Basophils/100 WBC (Bld) 0.3 % Normal 0-1 [facility] Comment on above: Performed By: #### L 100.0100 ####[facility] [address] [place], [address] Bilirubin, totalOrdered By: Netta Domingo on 11-18-2024 Bilirubin [Mass/Vol] 0.24 mg/dL Normal 0.00-1.30 [facility] Comment on above: Performed By: #### L 500.4100, L500.4050 ####[facility] [address] [place], [address] CBC W/Diff, Automatedon 11-01 Absolute Lymph 2.80 X10 3/uL Normal 0.83-4.51 [facility] Comment on above: Performed By: #### L 100.0100 ####[facility] [address] [place], [address] Absolute Neut 6.2 X10 3/uL Normal 2.0-7.7 [facility] Comment on above: Performed By: #### L 100.0100 ####[facility] [address] [place], [address] Erythrocyte distribution width (RBC) [Ratio] 12.1 % Normal 11.6-14.6 [facility] Comment on above: Performed By: #### L 100.0100 ####[facility] [address] [place], [address] Hematocrit (Bld) [Volume fraction] 37.2 % Normal 37-47 [facility] Comment on above: Performed By: #### L 100.0100 ####[facility] [address] [place], [address] Hemoglobin (Bld) [Mass/Vol] 12.7 g/dL Normal 12.0-15.0 [facility] Comment on above: Performed By: #### L 100.0100 ####[facility] [address] [place], [address] IG% 0.900 Normal 0.0-0.9 [facility] Comment on above: Result Comment: IG% - Immature Granulocytes (promyelocytes, myelocytes andmetamyelocytes) > 1% indicates that a LEFT SHIFT is Present. Performed By: #### L 100.0100 ####[facility] [address] [place], [address] Lymphocytes/100 WBC (Bld) 28.2 % Normal 19-41 [facility] Comment on above: Performed By: #### L 100.0100 ####[facility] [address] [place], [address] MCH (RBC) [Entitic mass] 30.9 pg Normal 27.0-32.0 [facility] Comment on above: Performed By: #### L 100.0100 ####[facility] [address] [place], [address] MCHC (RBC) [Mass/Vol] 34.1 g/dL Normal 32-36 [facility] Comment on above: Performed By: #### L 100.0100 ####[facility] [address] [place], [address] MCV (RBC) [Entitic vol] 90.5 fL Normal 81-99 [facility] Comment on above: Performed By: #### L 100.0100 ####[facility] [address] [place], [address] Nucleated RBC (Bld) [#/Vol] 0 10*3/uL Normal 0-5 [facility] Comment on above: Performed By: #### L 100.0100 ####[facility] [address] [place], [address] Platelet mean volume (Bld) [Entitic vol] 9.7 fL Normal 6.2-12.0 [facility] Comment on above: Performed By: #### L 100.0100 ####[facility] [address] [place], [address] Platelets (Bld) [#/Vol] 405 10*3/uL Normal 150-450 [facility] Comment on above: Performed By: #### L 100.0100 ####[facility] [address] [place], [address] RBC (Bld) [#/Vol] 4.11 10*6/uL Low 4.2-5.4 [facility] Comment on above: Performed By: #### L 100.0100 ####[facility] [address] [place], [address] RDW SD 39.4 fl Normal 35.1-43.9 [facility] Comment on above: Performed By: #### L 100.0100 ####[facility] [address] [place], [address] WBC (Bld) [#/Vol] 9.9 10*3/uL Normal 4.4-11.0 [facility] Comment on above: Performed By: #### L 100.0100 ####[facility] [address] [place], [address] Calculated very low density lipoprotein (VLDL) cholesterol measurementOrdered By: Netta Domingo on 11-18-2024 Calculated very low density lipoprotein (VLDL) cholesterol measurement 36 mg/dL 5-40 [facility] Comprehensive Metabolic Prof ilon 11-18-2024 ALK PHOS 68 U/L Normal 35-104 [facility] Comment on above: Performed By: #### L 500.4100, L500.4050 ####[facility] [address] [place], [address] AST [Catalytic activity/Vol] 32 U/L Normal <=31 [facility] Comment on above: Performed By: #### L 500.4100, L500.4050 ####[facility] [address] [place], [address] BUN/CRE 20.2 RATIO High 10-20 [facility] Comment on above: Performed By: #### L 500.4100, L500.4050 ####[facility] [address] [place], [address] Calcium [Mass/Vol] 9.0 mg/dL Normal 7.6-11.0 [facility] Comment on above: Performed By: #### L 500.4100, L500.4050 ####[facility] [address] [place], [address] Chloride [Moles/Vol] 104 mmol/L Normal 98-108 [facility] Comment on above: Performed By: #### L 500.4100, L500.4050 ####[facility] [address] [place], [address] CO2 [Moles/Vol] 24.0 mmol/L Normal 21.0-32.0 [facility] Comment on above: Performed By: #### L 500.4100, L500.4050 ####[facility] [address] [place], [address] Creatinine [Mass/Vol] 0.63 mg/dL Low 0.70-1.20 [facility] Comment on above: Performed By: #### L 500.4100, L500.4050 ####[facility] [address] [place], [address] ECRCL 117.83 ml/min Normal 50-250 [facility] Comment on above: Performed By: #### L 500.4100, L500.4050 ####[facility] [address] [place], [address] GAP 10 Normal 5-15 [facility] Comment on above: Performed By: #### L 500.4100, L500.4050 ####[facility] [address] [place], [address] GFR/1.73 sq M.predicted among non-blacks MDRD (S/P/Bld) [Vol rate/Area] 114 mL/min/{1.73_m2} Normal >60 [facility] Comment on above: Result Comment: mL/m in/1.73m2 CKD-EPI Creatinine Equation (2020) Performed By: #### L 500.4100, L500.4050 ####[facility] [address] [place], [address] Glucose [Mass/Vol] 102 mg/dL High 70-99 [facility] Comment on above: Performed By: #### L 500.4100, L500.4050 ####[facility] [address] [place], [address] Potassium [Moles/Vol] 4.1 mmol/L Normal 3.3-5.1 [facility] Comment on above: Performed By: #### L 500.4100, L500.4050 ####[facility] [address] [place], [address] Sodium [Moles/Vol] 138 mmol/L Normal 133-145 [facility] Comment on above: Performed By: #### L 500.4100, L500.4050 ####[facility] [address] [place], [address] T PROT 6.1 g/dL Normal 5.9-8.4 [facility] Comment on above: Performed By: #### L 500.4100, L500.4050 ####[facility] [address] [place], [address] Urea nitrogen [Mass/Vol] 13 mg/dL Normal 4-19 [facility] Comment on above: Performed By: #### L 500.4100, L500.4050 ####[facility] [address] [place], [address] Eosinophil percentageOrdered By: Netta Domingo on 11-18-2024 Eosinophils/100 WBC (Bld) 1.9 % Normal 0-5 [facility] Comment on above: Performed By: #### L 100.0100 ####[facility] [address] [place], [address] Immature granulocytes/100 WB C Auto (Bld)Ordered By: Netta Domingo on 11-18-2024 Immature granulocytes/100 WBC (Bld) 0.900 % 0.0-0.9 [facility] LDL calc ser/plasOrdered By: Netta Domingo on 11-18-2024 Cholesterol in LDL [Mass/Vol] 59 mg/dL Normal [facility] Comment on above: Result Comment: Bord zmnyij=820-844 mg/dL Higher Styt=709 mg/dL or greaterFriedwald Equation for LDL-C Performed By: #### L 500.4100, L500.4050 ####[facility] [address] [place], [address] Lipid Profileon 11-18-2024 CHOL:HDL 2.94 Normal [facility] Comment on above: Performed By: #### L 500.4100, L500.4050 ####[facility] [address] [place], [address] Cholesterol in VLDL [Mass/Vol] 36 mg/dL Normal 5-40 [facility] Comment on above: Performed By: #### L 500.4100, L500.4050 ####[facility] [address] [place], [address] Triglyceride [Mass/Vol] 179 mg/dL Normal [facility] Comment on above: Result Comment: The drugs N-Acetylcysteine and Metamizole may falselydepress this assay.Normal range: <150 mg/dLBorderline High: 150-199 mg/dLHigh: 200-499 mg/dLVery High: >500 mg/dL Performed By: #### L 500.4100, L500.4050 ####[facility] [address] [place], [address] Monocyte percentageOrdered B y: Netta Domingo on 11-18-2024 Monocytes/100 WBC (Bld) 6.4 % Normal 0-10 [facility] Comment on above: Performed By: #### L 100.0100 ####[facility] [address] [place], [address] Neutrophil percentageOrdered By: Netta Domingo on 11-18-2024 Neutrophils/100 WBC (Bld) 62.3 % Normal 47-70 [facility] Comment on above: Performed By: #### L 100.0100 ####[facility] [address] [place], [address] No Panel InformationOrdered By: Netta Mendozamilton on 11-18-2024 32 U/L <32 [facility] Serum globulin measurementOr dered By: Netta Mendozamilton on 11-18-2024 Globulin (S) [Mass/Vol] 2.4 g/dL Normal 2.2-4.2 [facility] Comment on above: Performed By: #### L 500.4100, L500.4050 ####[facility] [address] [place], [address] Serum or plasma alanine quintana otransferase (ALT) measurementOrdered By: Netta Mendozamilton on 11-18-2024 ALT [Catalytic activity/Vol] 65 U/L High <=34 [facility] Comment on above: Performed By: #### L 500.4100, L500.4050 ####[facility] [address] [place], [address] Serum or plasma albumin sasha urement (mass/volume)Ordered By: Netta Mendozamilton on 11-18-2024 Albumin [Mass/Vol] 3.8 g/dL Normal 3.5-5.0 [facility] Comment on above: Performed By: #### L 500.4100, L500.4050 ####[facility] [address] [place], [address] Serum or plasma albumin/glob ulin mass ratioOrdered By: Netta Mendozamilton on 11-18-2024 Albumin/Globulin [Mass ratio] 1.6 {ratio} Normal 0.9-2.4 [facility] Comment on above: Performed By: #### L 500.4100, L500.4050 ####[facility] [address] [place], [place], [address] Serum or plasma alkaline malvin sphatase measurementOrdered By: Netta Domingo on 11-18-2024 ALP [Catalytic activity/Vol] 68 U/L 35-104 [facility] Serum or plasma cholesterol in HDL measurement (mass/volume)Ordered By: Netta Domingo on 11-18-2024 Cholesterol in HDL [Mass/Vol] 49 mg/dL Normal [facility] Comment on above: Result Comment: [place] onal Cholesterol Education Program (NCEP) guidelines:<40 mg/dL: Low HDL-cholesterol (major risk factor for CHD)>= 60 mg/dL: High HDL-cholesterol (negative risk factor forCHD)HDL-cholesterol is affected by a number of factors, e.g.smoking, exercise, hormones, sex and age. Performed By: #### L 500.4100, L500.4050 ####[facility] [address] [place], [place], [address] Serum or plasma cholesterol measurement (mass/volume)Ordered By: Netta Domingo on 11-18-2024 Cholesterol [Mass/Vol] 143 mg/dL Normal <=200 [facility] Comment on above: Result Comment: Chol esterol level, Desirable <200 mg/dLBorderline high cholesterol 200-239 mg/dLHigh cholesterol >=240 mg/dLRecommendations of the NCEP Adult Treatment Panel for thefollowing risk-cutoff thresholds for the [place] [facility]. Performed By: #### L 500.4100, L500.4050 ####[facility] [address] [place], [place], [address] Total proteinOrdered By: Liz Domingo on 11-18-2024 Protein [Mass/Vol] 6.1 g/dL 5.9-8.4 [facility] CBC-Complete Blood Cnt No Di ffon 11-11-2024 Erythrocyte distribution width (RBC) [Ratio] 11.6 % Normal 11.6-14.6 [facility] Comment on above: Performed By: #### L 100.0500 ####[facility] [address] [place], [address] Hematocrit (Bld) [Volume fraction] 37.5 % Normal 37-47 [facility] Comment on above: Performed By: #### L 100.0500 ####[facility] [address] [place], [address] Hemoglobin (Bld) [Mass/Vol] 12.6 g/dL Normal 12.0-15.0 [facility] Comment on above: Performed By: #### L 100.0500 ####[facility] [address] [place], [address] MCH (RBC) [Entitic mass] 30.7 pg Normal 27.0-32.0 [facility] Comment on above: Performed By: #### L 100.0500 ####[facility] [address] [place], [address] MCHC (RBC) [Mass/Vol] 33.6 g/dL Normal 32-36 [facility] Comment on above: Performed By: #### L 100.0500 ####[facility] [address] [place], [address] MCV (RBC) [Entitic vol] 91.2 fL Normal 81-99 [facility] Comment on above: Performed By: #### L 100.0500 ####[facility] [address] [place], [address] Platelet mean volume (Bld) [Entitic vol] 10.0 fL Normal 6.2-12.0 [facility] Comment on above: Performed By: #### L 100.0500 ####[facility] [address] [place], [address] Platelets (Bld) [#/Vol] 372 10*3/uL Normal 150-450 [facility] Comment on above: Performed By: #### L 100.0500 ####[facility] [address] [place], [address] RBC (Bld) [#/Vol] 4.11 10*6/uL Low 4.2-5.4 [facility] Comment on above: Performed By: #### L 100.0500 ####[facility] [address] [place], [address] RDW SD 38.8 fl Normal 35.1-43.9 [facility] Comment on above: Performed By: #### L 100.0500 ####[facility] [address] [place], [address] WBC (Bld) [#/Vol] 8.3 10*3/uL Normal 4.4-11.0 [facility] Comment on above: Performed By: #### L 100.0500 ####[facility] [address] [place], [address] Cardiac Cath Diagnosticon Cardiac Cath Diagnostic Normal [facility] Comprehensive Metabolic Prof ilon 11-11-2024 Albumin [Mass/Vol] 3.9 g/dL Normal 3.5-5.0 [facility] Comment on above: Performed By: #### L 501.5200, L501.2300, L500.4050 ####[facility] [address] [place], [address] Albumin/Globulin [Mass ratio] 1.7 {ratio} Normal 0.9-2.4 [facility] Comment on above: Performed By: #### L 501.5200, L501.2300, L500.4050 ####[facility] [address] [place], [address] ALK PHOS 73 U/L Normal 35-104 [facility] Comment on above: Performed By: #### L 501.5200, L501.2300, L500.4050 ####[facility] [address] [place], [address] ALT [Catalytic activity/Vol] 98 U/L High <=34 [facility] Comment on above: Performed By: #### L 501.5200, L501.2300, L500.4050 ####[facility] [address] [place], [address] AST [Catalytic activity/Vol] 60 U/L High <=31 [facility] Comment on above: Performed By: #### L 501.5200, L501.2300, L500.4050 ####[facility] [address] [place], [address] Bilirubin [Mass/Vol] 0.19 mg/dL Normal 0.00-1.30 [facility] Comment on above: Performed By: #### L 501.5200, L501.2300, L500.4050 ####[facility] [address] [place], [address] BUN/CRE 15.8 RATIO Normal 10-20 [facility] Comment on above: Performed By: #### L 501.5200, L501.2300, L500.4050 ####[facility] [address] [place], [address] Calcium [Mass/Vol] 9.4 mg/dL Normal 7.6-11.0 [facility] Comment on above: Performed By: #### L 501.5200, L501.2300, L500.4050 ####[facility] [address] [place], [address] Chloride [Moles/Vol] 105 mmol/L Normal 98-108 [facility] Comment on above: Performed By: #### L 501.5200, L501.2300, L500.4050 ####[facility] [address] [place], [address] CO2 [Moles/Vol] 28.2 mmol/L Normal 21.0-32.0 [facility] Comment on above: Performed By: #### L 501.5200, L501.2300, L500.4050 ####[facility] [address] [place], [address] Creatinine [Mass/Vol] 0.66 mg/dL Low 0.70-1.20 [facility] Comment on above: Performed By: #### L 501.5200, L501.2300, L500.4050 ####[facility] [address] [place], [address] ECRCL 111.95 ml/min Normal 50-250 [facility] Comment on above: Performed By: #### L 501.5200, L501.2300, L500.4050 ####[facility] [address] [place], [address] GAP 9 Normal 5-15 [facility] Comment on above: Performed By: #### L 501.5200, L501.2300, L500.4050 ####[facility] [address] [place], [address] GFR/1.73 sq M.predicted among non-blacks MDRD (S/P/Bld) [Vol rate/Area] 113 mL/min/{1.73_m2} Normal >60 [facility] Comment on above: Result Comment: mL/m in/1.73m2 CKD-EPI Creatinine Equation (2020) Performed By: #### L 501.5200, L501.2300, L500.4050 ####[facility] [address] [place], [address] Globulin (S) [Mass/Vol] 2.3 g/dL Normal 2.2-4.2 [facility] Comment on above: Performed By: #### L 501.5200, L501.2300, L500.4050 ####[facility] [address] [place], [address] Glucose [Mass/Vol] 138 mg/dL High 70-99 [facility] Comment on above: Performed By: #### L 501.5200, L501.2300, L500.4050 ####[facility] [address] [place], [address] Potassium [Moles/Vol] 4.1 mmol/L Normal 3.3-5.1 [facility] Comment on above: Performed By: #### L 501.5200, L501.2300, L500.4050 ####[facility] [address] [place], [address] Sodium [Moles/Vol] 142 mmol/L Normal 133-145 [facility] Comment on above: Performed By: #### L 501.5200, L501.2300, L500.4050 ####[facility] [address] [place], [address] T PROT 6.2 g/dL Normal 5.9-8.4 [facility] Comment on above: Performed By: #### L 501.5200, L501.2300, L500.4050 ####[facility] [address] [place], [address] Urea nitrogen [Mass/Vol] 11 mg/dL Normal 4-19 [facility] Comment on above: Performed By: #### L 501.5200, L501.2300, L500.4050 ####[facility] [address] [place], [address] JAK2 Mutation Analysison JAK2 COMMENT Comment Normal . [facility] Comment on above: Result Comment: Tech nical Component performed at [facility] RTPProfessional Component performed by:Tato Price, PhD, FACMGDirector, Molecular OncologyCollis P. Huntington Hospital [id number] ALVARO [facility] [phone] test was developed and its performance characteristicsdetermined by [employer]. It has not been cleared orapproved by the Food and Drug Administration.Performed at: [place] - [facility] [id number], [place] [id number] Director: Neil Campos [facility], Phone: [phone] at: - [facility] [id number] [facility], [place] [id number] Director: Neil Campos [facility], Phone: [phone] Performed By: #### L 3440.5000 ####[facility] [address] [place], [place], [id number] JAK2 COMMENT 2 Comment Normal . [facility] Comment on above: Result Comment: JAK2 is a cytoplasmic tyrosine kinase with a connell role insignal transduction from multiple hematopoietic growthfactor receptors. 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 The [employer] Absolute Quantitation softwarewill compare the patient specimen valuse to the standardcurves and generate percent values for wild type andmutant type. In vitro studies have indicated that thisassay has an analytical sensitivity of 1%.References:Solo GRAHAM, Roger BAIG, Macho PJ, et al. Acquiredmutation of the tyrosine kinase JAK2 in humanmyeloproliferative disorders. Lancet. 2005 Jun 19;365(4163):4629-0865. Geraldo Peacock V, Pito Curry JP. Aunique clonal JAK2 mutation leading to constitutivesignaling causes polycythaemia vera. Nature. 2005 Jul 28;682(5895):8553-2540.Maryann R, Aly F, Joseph , et al. A pbqf-pb-adusmpcg mutation of JAK2 in myeloproliferative disorders.N Engl J Med. 2005 Jul 29; 35217):1624-3176. Performed By: #### L 3440.5000 ####[facility] [address] [place], [address] JAK2 MUT QUAL Comment Normal . [facility] Comment on above: Result Comment: Resu lt: NEGATIVE for the JAK2 V617F mutation.Interpretation: The G to T nucleotide change encoding [id number] mutation was not detected. This result does [...] these disorders. Performed By: #### L 3440.5000 ####[facility] [address] [place], [address] Magnesiumon 11-11-2024 Magnesium [Mass/Vol] 2.3 mg/dL High 1.5-2.2 [facility] Comment on above: Performed By: #### L 501.5200, L501.2300, L500.4050 ####[facility] [address] [place], [address] Magnesium measurement (mass/ volume)Ordered By: Netta Domingo on 11-11-2024 Magnesium (Unsp spec) [Mass/Vol] 2.3 mg/dL High 1.5-2.2 [facility] Phosphoruson 11-11-2024 Phosphate [Mass/Vol] 3.6 mg/dL Normal 2.7-4.5 [facility] Comment on above: Performed By: #### L 501.5200, L501.2300, L500.4050 ####[facility] [address] [place], [address] Absolute lymphocyte countOrd ered By: Nehemiah Hammond on 11-10-2024 Lymphocytes Auto (Unsp spec) [#/Vol] 3.28 10*3/uL 0.83-4.51 [facility] Absolute neutrophil countOrd ered By: Nehemiah Hammond on 11-10-2024 Neutrophils (Bld) [#/Vol] 4.5 10*3/uL 2.0-7.7 [facility] Anion gap in Serum or Plasma Ordered By: Nehemiah Hammond on 11-10-2024 Anion gap [Moles/Vol] 9 mmol/L 08-15 [facility] Automated lymphocyte count a s percentage of total leukocytesOrdered By: Nehemiah Hammond on 11-10-2024 Lymphocytes/100 WBC Auto (Unsp spec) 37.4 % [facility] BUN/creatinine ratioOrdered By: Nehemiah Hammond on 11-10-2024 Urea nitrogen/Creatinine [Mass ratio] 19.8 mg/mg - [facility] Basic Metabolic Profile (BMP )on 11-10-2024 BUN/CRE 19.8 RATIO Normal - [facility] Comment on above: Performed By: #### L 500.2500, L100.0100 ####[facility] [address] [place], [address] Calcium [Mass/Vol] 9.2 mg/dL Normal 7.6-11.0 [facility] Comment on above: Performed By: #### L 500.2500, L100.0100 ####[facility] [address] [place], [address] Chloride [Moles/Vol] 107 mmol/L Normal 98-108 [facility] Comment on above: Performed By: #### L 500.2500, L100.0100 ####[facility] [address] [place], [address] CO2 [Moles/Vol] 26.0 mmol/L Normal 21.0-32.0 [facility] Comment on above: Performed By: #### L 500.2500, L100.0100 ####[facility] [address] [place], [address] Creatinine [Mass/Vol] 0.60 mg/dL Low 0.70-1.20 [facility] Comment on above: Performed By: #### L 500.2500, L100.0100 ####[facility] [address] [place], [address] ECRCL 123.80 ml/min Normal 50-250 [facility] Comment on above: Performed By: #### L 500.2500, L100.0100 ####[facility] [address] [place], [address] GAP 9 Normal 5-15 [facility] Comment on above: Performed By: #### L 500.2500, L100.0100 ####[facility] [address] [place], [address] GFR/1.73 sq M.predicted among non-blacks MDRD (S/P/Bld) [Vol rate/Area] 116 mL/min/{1.73_m2} Normal >60 [facility] Comment on above: Result Comment: mL/m in/1.73m2 CKD-EPI Creatinine Equation (2020) Performed By: #### L 500.2500, L100.0100 ####[facility] [address] [place], [address] Glucose [Mass/Vol] 98 mg/dL Normal 70-99 [facility] Comment on above: Performed By: #### L 500.2500, L100.0100 ####[facility] [address] [place], [address] Potassium [Moles/Vol] 4.2 mmol/L Normal 3.3-5.1 [facility] Comment on above: Performed By: #### L 500.2500, L100.0100 ####[facility] [address] [place], [address] Sodium [Moles/Vol] 141 mmol/L Normal 133-145 [facility] Comment on above: Performed By: #### L 500.2500, L100.0100 ####[facility] [address] [place], [address] Urea nitrogen [Mass/Vol] 12 mg/dL Normal 4-19 [facility] Comment on above: Performed By: #### L 500.2500, L100.0100 ####[facility] [address] [place], [address] Basophil percentageOrdered B y: Nehemiah Hammond on 11-10-2024 Basophils/100 WBC (Bld) 0.5 % 0-1 [facility] CBC W/Diff, Automatedon 11-01 0-2024 Absolute Lymph 3.28 X10 3/uL Normal 0.83-4.51 [facility] Comment on above: Performed By: #### L 500.2500, L100.0100 ####[facility] [address] [place], [address] Absolute Neut 4.5 X10 3/uL Normal 2.0-7.7 [facility] Comment on above: Performed By: #### L 500.2500, L100.0100 ####[facility] [address] [place], [address] Basophils/100 WBC (Bld) 0.5 % Normal 0-1 [facility] Comment on above: Performed By: #### L 500.2500, L100.0100 ####[facility] [address] [place], [address] Eosinophils/100 WBC (Bld) 1.6 % Normal 0-5 [facility] Comment on above: Performed By: #### L 500.2500, L100.0100 ####[facility] [address] [place], [address] Erythrocyte distribution width (RBC) [Ratio] 11.6 % Normal 11.6-14.6 [facility] Comment on above: Performed By: #### L 500.2500, L100.0100 ####[facility] [address] [place], [address] Hematocrit (Bld) [Volume fraction] 38.8 % Normal 37-47 [facility] Comment on above: Performed By: #### L 500.2500, L100.0100 ####[facility] [address] [place], [address] Hemoglobin (Bld) [Mass/Vol] 12.7 g/dL Normal 12.0-15.0 [facility] Comment on above: Performed By: #### L 500.2500, L100.0100 ####[facility] [address] [place], [address] IG% 0.300 Normal 0.0-0.9 [facility] Comment on above: Result Comment: IG% - Immature Granulocytes (promyelocytes, myelocytes andmetamyelocytes) > 1% indicates that a LEFT SHIFT is Present. Performed By: #### L 500.2500, L100.0100 ####[facility] [address] [place], [address] Lymphocytes/100 WBC (Bld) 37.4 % Normal 19-41 [facility] Comment on above: Performed By: #### L 500.2500, L100.0100 ####[facility] [address] [place], [address] MCH (RBC) [Entitic mass] 30.0 pg Normal 27.0-32.0 [facility] Comment on above: Performed By: #### L 500.2500, L100.0100 ####[facility] [address] [place], [address] MCHC (RBC) [Mass/Vol] 32.7 g/dL Normal 32-36 [facility] Comment on above: Performed By: #### L 500.2500, L100.0100 ####[facility] [address] [place], [address] MCV (RBC) [Entitic vol] 91.7 fL Normal 81-99 [facility] Comment on above: Performed By: #### L 500.2500, L100.0100 ####[facility] [address] [place], [address] Monocytes/100 WBC (Bld) 8.7 % Normal 0-10 [facility] Comment on above: Performed By: #### L 500.2500, L100.0100 ####[facility] [address] [place], [address] Neutrophils/100 WBC (Bld) 51.5 % Normal 47-70 [facility] Comment on above: Performed By: #### L 500.2500, L100.0100 ####[facility] [address] [place], [address] Nucleated RBC (Bld) [#/Vol] 0 10*3/uL Normal 0-5 [facility] Comment on above: Performed By: #### L 500.2500, L100.0100 ####[facility] [address] [place], [address] Platelet mean volume (Bld) [Entitic vol] 10.7 fL Normal 6.2-12.0 [facility] Comment on above: Performed By: #### L 500.2500, L100.0100 ####[facility] [address] [place], [address] Platelets (Bld) [#/Vol] 384 10*3/uL Normal 150-450 [facility] Comment on above: Performed By: #### L 500.2500, L100.0100 ####[facility] [address] [place], [address] RBC (Bld) [#/Vol] 4.23 10*6/uL Normal 4.2-5.4 [facility] Comment on above: Performed By: #### L 500.2500, L100.0100 ####[facility] [address] [place], [address] RDW SD 39.0 fl Normal 35.1-43.9 [facility] Comment on above: Performed By: #### L 500.2500, L100.0100 ####[facility] [address] [place], [address] WBC (Bld) [#/Vol] 8.8 10*3/uL Normal 4.4-11.0 [facility] Comment on above: Performed By: #### L 500.2500, L100.0100 ####[facility] [address] [place], [address] CBC-Complete Blood Cnt No Di ffon 11-10-2024 HCT Normal 37-47 [facility] Comment on above: Result Comment: CANC EL PER NURSE Performed By: #### L 100.0500 ####[facility] [address] [place], [address] HGB Normal 12.0-15.0 [facility] Comment on above: Result Comment: CANC EL PER NURSE Performed By: #### L 100.0500 ####[facility] [address] [place], [address] MCH Normal 27.0-32.0 [facility] Comment on above: Result Comment: CANC EL PER NURSE Performed By: #### L 100.0500 ####[facility] [address] [place], [address] MCHC Normal 32-36 [facility] Comment on above: Result Comment: CANC EL PER NURSE Performed By: #### L 100.0500 ####[facility] [address] [place], [address] MCV Normal 81-99 [facility] Comment on above: Result Comment: CANC EL PER NURSE Performed By: #### L 100.0500 ####[facility] [address] [place], [address] PLT Normal 150-450 [facility] Comment on above: Result Comment: CANC EL PER NURSE Performed By: #### L 100.0500 ####[facility] [address] [place], [address] RBC Normal 4.2-5.4 [facility] Comment on above: Result Comment: CANC EL PER NURSE Performed By: #### L 100.0500 ####[facility] [address] [place], [address] RDW CV Normal 11.6-14.6 [facility] Comment on above: Result Comment: CANC EL PER NURSE Performed By: #### L 100.0500 ####[facility] [address] [place], [address] RDW SD Normal 35.1-43.9 [facility] Comment on above: Result Comment: CANC EL PER NURSE Performed By: #### L 100.0500 ####[facility] [address] [place], [address] WBC Normal 4.4-11.0 [facility] Comment on above: Result Comment: CANC EL PER NURSE Performed By: #### L 100.0500 ####[facility] [address] [place], [address] Carbon dioxide, total [Moles /volume] in Central venous bloodOrdered By: Nehemiah Hammond on 11-10-2024 CO2 [Moles/Vol] 26.0 mmol/L 21.0-32.0 [facility] Chloride assayOrdered By: Edward Hammond on 11-10-2024 Chloride [Moles/Vol] 107 mmol/L 98-108 [facility] Comprehensive Metabolic Prof ilon 11-10-2024 ALB Normal 3.5-5.0 [facility] Comment on above: Result Comment: CANC EL PER NURSE Performed By: #### L 500.4050 ####[facility] [address] [place], [address] ALK PHOS Normal 35-104 [facility] Comment on above: Result Comment: CANC EL PER NURSE Performed By: #### L 500.4050 ####[facility] [address] [place], [address] ALT Normal <=34 [facility] Comment on above: Result Comment: CANC EL PER NURSE Performed By: #### L 500.4050 ####[facility] [address] [place], [address] AST Normal <=31 [facility] Comment on above: Result Comment: CANC EL PER NURSE Performed By: #### L 500.4050 ####[facility] [address] [place], [address] BUN Normal 4-19 [facility] Comment on above: Result Comment: CANC EL PER NURSE Performed By: #### L 500.4050 ####[facility] [address] [place], [address] BUN/CRE Normal 10-20 [facility] Comment on above: Result Comment: CANC EL PER NURSE Performed By: #### L 500.4050 ####[facility] [address] [place], [address] Calcium Normal 7.6-11.0 [facility] Comment on above: Result Comment: CANC EL PER NURSE Performed By: #### L 500.4050 ####[facility] [address] [place], [address] CL Normal 98-108 [facility] Comment on above: Result Comment: CANC EL PER NURSE Performed By: #### L 500.4050 ####[facility] [address] [place], [address] CO2 Normal 21.0-32.0 [facility] Comment on above: Result Comment: CANC EL PER NURSE Performed By: #### L 500.4050 ####[facility] [address] [place], [address] CREAT,SERUM Normal 0.70-1.20 [facility] Comment on above: Result Comment: CANC EL PER NURSE Performed By: #### L 500.4050 ####[facility] [address] [place], [address] eGFR Normal >60 [facility] Comment on above: Result Comment: CANC EL PER NURSE Performed By: #### L 500.4050 ####[facility] [address] [place], [address] GAP Normal 5-15 [facility] Comment on above: Result Comment: CANC EL PER NURSE Performed By: #### L 500.4050 ####[facility] [address] [place], [address] GLU Normal 70-99 [facility] Comment on above: Result Comment: CANC EL PER NURSE Performed By: #### L 500.4050 ####[facility] [address] [place], [address] Potassium Normal 3.3-5.1 [facility] Comment on above: Result Comment: CANC EL PER NURSE Performed By: #### L 500.4050 ####[facility] [address] [place], [address] T BILI Normal 0.00-1.30 [facility] Comment on above: Result Comment: CANC EL PER NURSE Performed By: #### L 500.4050 ####[facility] [address] [place], [place], [address] T PROT Normal 5.9-8.4 [facility] Comment on above: Result Comment: CANC EL PER NURSE Performed By: #### L 500.4050 ####[facility] [address] [place], [place], [address] Comprehensive Metabolic Profil Normal 133-145 [facility] Comment on above: Result Comment: CANC EL PER NURSE Performed By: #### L 500.4050 ####[facility] [address] [place], [place], [address] Eosinophil percentageOrdered By: Nehemiah Hammond on 11-10-2024 Eosinophils/100 WBC (Bld) 1.6 % 0-5 [facility] Erythrocyte distribution wid th ratioOrdered By: Nehemiah Hammond on 11-10-2024 Erythrocyte distribution width (RBC) [Ratio] 11.6 % 11.6-14.6 [facility] Erythrocyte distribution wid th standard deviationOrdered By: Nehemiah Hammond on 11-10-2024 Erythrocyte distribution width (RBC) [Ratio] 39.0 fl 35.1-43.9 [facility] Glomerular filtration rate ( GFR) estimation/1.73 sq m using serum, plasma, or whole bOrdered By: Nehemiah Hammond on 11-10-2024 GFR/1.73 sq M.predicted among non-blacks MDRD (S/P/Bld) [Vol rate/Area] 116 mL/min/{1.73_m2} >60 [facility] Comment on above: mL/min/1.73m2 CKD-EP I Creatinine Equation (2020) Hematocrit Auto (Bld) [Volum e fraction]Ordered By: Nehemiah Hammond on 11-10-2024 Hematocrit (Bld) [Volume fraction] 38.8 % 37-47 [facility] Hemoglobin measurementOrdere d By: Nehemiah Hammond on 11-10-2024 Hemoglobin (Bld) [Mass/Vol] 12.7 g/dL 12.0-15.0 [facility] Immature granulocytes/100 WB C Auto (Bld)Ordered By: Nehemiah Hammond on 11-10-2024 Immature granulocytes/100 WBC (Bld) 0.300 % 0.0-0.9 [facility] Comment on above: IG% - Immature Granu locytes (promyelocytes, myelocytes and metamyelocytes) > 1% indicates that a LEFT SHIFT is Present. MCV (mean corpuscular volume ) determinationOrdered By: Nehemiah Hammond on 11-10-2024 MCV (RBC) [Entitic vol] 91.7 fL 81-99 [facility] Mean corpuscular hemoglobin (MCH) determinationOrdered By: Nehemiah Hammond on 11-10-2024 MCH (RBC) [Entitic mass] 30.0 pg 27.0-32.0 [facility] Mean corpuscular hemoglobin concentration (MCHC) determinationOrdered By: Nehemiah Hammond on 11-10-2024 MCHC (RBC) [Mass/Vol] 32.7 g/dL 32-36 [facility] Mean platelet volume determi nationOrdered By: Nehemiah Hammond on 11-10-2024 Platelet mean volume (Bld) [Entitic vol] 10.7 fL 6.2-12.0 [facility] Monocyte percentageOrdered B y: Nehemiah Hammond on 11-10-2024 Monocytes/100 WBC (Bld) 8.7 % 0-10 [facility] Neutrophil percentageOrdered By: Nehemiah Hammond on 11-10-2024 Neutrophils/100 WBC (Bld) 51.5 % 47-70 [facility] Nucleated red blood cell per centageOrdered By: Nehemiah aHmmond on 11-10-2024 Nucleated RBC/100 WBC (Bld) [Ratio] 0 % 0-5 [facility] Platelet countOrdered By: Edward Hammond on 11-10-2024 Platelets (Bld) [#/Vol] 384 10*3/uL 150-450 [facility] Potassium measurement (mass/ volume)Ordered By: Nehemiah Hammond on 11-10-2024 Potassium (Unsp spec) [Mass/Vol] 4.2 mmol/L 3.3-5.1 [facility] RBC Auto (Bld) [#/Vol]Ordere d By: Nehemiah Hammond on 11-10-2024 RBC (Bld) [#/Vol] 4.23 10*6/uL 4.2-5.4 [facility] Serum creatinine measurement (mass/volume)Ordered By: Nehemiah Hammond on 11-10-2024 Creatinine [Mass/Vol] 0.60 mg/dL Low 0.70-1.20 [facility] Serum glucose measurement (m ass/volume)Ordered By: Nehemiah Hammond on 11-10-2024 Glucose [Mass/Vol] 98 mg/dL 70-99 [facility] Serum or plasma calcium sasha urement (mass/volume)Ordered By: Nehemiah Hammond on 11-10-2024 Calcium [Mass/Vol] 9.2 mg/dL 7.6-11.0 [facility] Serum or plasma urea nitroge n measurement (mass/volume)Ordered By: Nehemiah Hammond on 11-10-2024 Urea nitrogen [Mass/Vol] 12 mg/dL 4-19 [facility] Sodium levelOrdered By: Himanshu Hammond on 11-10-2024 Sodium [Moles/Vol] 141 mmol/L 133-145 [facility] White blood cell (WBC) count Ordered By: Nehemiah Hammond on 11-10-2024 WBC (Bld) [#/Vol] 8.8 10*3/uL 4.4-11.0 [facility] Basic Metabolic Profile (BMP )on 11-09-2024 BUN/CRE 20.4 RATIO High 10-20 [facility] Comment on above: Performed By: #### L 500.2500, L100.0100 ####[facility] [address] [place], [address] Calcium [Mass/Vol] 8.9 mg/dL Normal 7.6-11.0 [facility] [facility] Comment on above: Performed By: #### L 500.2500, L100.0100 ####[facility] [address] [place], [address] Chloride [Moles/Vol] 108 mmol/L Normal 98-108 [facility] Comment on above: Performed By: #### L 500.2500, L100.0100 ####[facility] [address] [place], [address] CO2 [Moles/Vol] 23.8 mmol/L Normal 21.0-32.0 [facility] Comment on above: Performed By: #### L 500.2500, L100.0100 ####[facility] [address] [place], [address] Creatinine [Mass/Vol] 0.57 mg/dL Low 0.70-1.20 [facility] Comment on above: Performed By: #### L 500.2500, L100.0100 ####[facility] [address] [place], [address] ECRCL 130.32 ml/min Normal 50-250 [facility] Comment on above: Performed By: #### L 500.2500, L100.0100 ####[facility] [address] [place], [address] GAP 9 Normal 5-15 [facility] Comment on above: Performed By: #### L 500.2500, L100.0100 ####[facility] [address] [place], [address] GFR/1.73 sq M.predicted among non-blacks MDRD (S/P/Bld) [Vol rate/Area] 117 mL/min/{1.73_m2} Normal >60 [facility] Comment on above: Result Comment: mL/m in/1.73m2 CKD-EPI Creatinine Equation (2020) Performed By: #### L 500.2500, L100.0100 ####[facility] [address] [place], [address] Glucose [Mass/Vol] 123 mg/dL High 70-99 [facility] Comment on above: Performed By: #### L 500.2500, L100.0100 ####[facility] [address] [place], [address] Potassium [Moles/Vol] 4.2 mmol/L Normal 3.3-5.1 [facility] Comment on above: Performed By: #### L 500.2500, L100.0100 ####[facility] [address] [place], [address] Sodium [Moles/Vol] 140 mmol/L Normal 133-145 [facility] Comment on above: Performed By: #### L 500.2500, L100.0100 ####[facility] [address] [place], [address] Urea nitrogen [Mass/Vol] 12 mg/dL Normal 4-19 [facility] Comment on above: Performed By: #### L 500.2500, L100.0100 ####[facility] [address] [place], [address] CBC W/Diff, Automatedon 08-0 9-2025 Absolute Lymph 2.95 X10 3/uL Normal 0.83-4.51 [facility] Comment on above: Performed By: #### L 500.2500, L100.0100 ####[facility] [address] [place], [address] Absolute Neut 5.0 X10 3/uL Normal 2.0-7.7 [facility] Comment on above: Performed By: #### L 500.2500, L100.0100 ####[facility] [address] [place], [address] Basophils/100 WBC (Bld) 0.6 % Normal 0-1 [facility] Comment on above: Performed By: #### L 500.2500, L100.0100 ####[facility] [address] [place], [address] Eosinophils/100 WBC (Bld) 1.9 % Normal 0-5 [facility] Comment on above: Performed By: #### L 500.2500, L100.0100 ####[facility] [address] [place], [address] Erythrocyte distribution width (RBC) [Ratio] 11.6 % Normal 11.6-14.6 [facility] Comment on above: Performed By: #### L 500.2500, L100.0100 ####[facility] [address] [place], [address] Hematocrit (Bld) [Volume fraction] 35.7 % Low 37-47 [facility] Comment on above: Performed By: #### L 500.2500, L100.0100 ####[facility] [address] [place], [address] Hemoglobin (Bld) [Mass/Vol] 12.0 g/dL Normal 12.0-15.0 [facility] Comment on above: Performed By: #### L 500.2500, L100.0100 ####[facility] [address] [place], [address] IG% 0.300 Normal 0.0-0.9 [facility] Comment on above: Result Comment: IG% - Immature Granulocytes (promyelocytes, myelocytes andmetamyelocytes) > 1% indicates that a LEFT SHIFT is Present. Performed By: #### L 500.2500, L100.0100 ####[facility] [address] [place], [address] Lymphocytes/100 WBC (Bld) 32.6 % Normal 19-41 [facility] Comment on above: Performed By: #### L 500.2500, L100.0100 ####[facility] [address] [place], [address] MCH (RBC) [Entitic mass] 30.4 pg Normal 27.0-32.0 [facility] Comment on above: Performed By: #### L 500.2500, L100.0100 ####[facility] [address] [place], [address] MCHC (RBC) [Mass/Vol] 33.6 g/dL Normal 32-36 [facility] Comment on above: Performed By: #### L 500.2500, L100.0100 ####[facility] [address] [place], [address] MCV (RBC) [Entitic vol] 90.4 fL Normal 81-99 [facility] Comment on above: Performed By: #### L 500.2500, L100.0100 ####[facility] [address] [place], [address] Monocytes/100 WBC (Bld) 9.2 % Normal 0-10 [facility] Comment on above: Performed By: #### L 500.2500, L100.0100 ####[facility] [address] [place], [address] Neutrophils/100 WBC (Bld) 55.4 % Normal 47-70 [facility] Comment on above: Performed By: #### L 500.2500, L100.0100 ####[facility] [address] [place], [address] Nucleated RBC (Bld) [#/Vol] 0 10*3/uL Normal 0-5 [facility] Comment on above: Performed By: #### L 500.2500, L100.0100 ####[facility] [address] [place], [address] Platelet mean volume (Bld) [Entitic vol] 10.5 fL Normal 6.2-12.0 [facility] Comment on above: Performed By: #### L 500.2500, L100.0100 ####[facility] [address] [place], [address] Platelets (Bld) [#/Vol] 325 10*3/uL Normal 150-450 [facility] Comment on above: Performed By: #### L 500.2500, L100.0100 ####[facility] [address] [place], [address] RBC (Bld) [#/Vol] 3.95 10*6/uL Low 4.2-5.4 [facility] Comment on above: Performed By: #### L 500.2500, L100.0100 ####[facility] [address] [place], [address] RDW SD 38.4 fl Normal 35.1-43.9 [facility] Comment on above: Performed By: #### L 500.2500, L100.0100 ####[facility] [address] [place], [address] WBC (Bld) [#/Vol] 9.1 10*3/uL Normal 4.4-11.0 [facility] Comment on above: Performed By: #### L 500.2500, L100.0100 ####[facility] [address] [place], [address] Basic Metabolic Profile (BMP )on 11-08-2024 BUN/CRE 26.1 RATIO High 10-20 [facility] Comment on above: Performed By: #### L 501.2300, L100.0100, L500.2500, L501.5200 ####[facility] [address] [place], [address] Calcium [Mass/Vol] 8.4 mg/dL Normal 7.6-11.0 [facility] Comment on above: Performed By: #### L 501.2300, L100.0100, L500.2500, L501.5200 ####[facility] [address] [place], [address] Chloride [Moles/Vol] 108 mmol/L Normal 98-108 [facility] Comment on above: Performed By: #### L 501.2300, L100.0100, L500.2500, L501.5200 ####[facility] [address] [place], [address] CO2 [Moles/Vol] 20.9 mmol/L Low 21.0-32.0 [facility] Comment on above: Performed By: #### L 501.2300, L100.0100, L500.2500, L501.5200 ####[facility] [address] [place], [address] Creatinine [Mass/Vol] 0.49 mg/dL Low 0.70-1.20 [facility] Comment on above: Performed By: #### L 501.2300, L100.0100, L500.2500, L501.5200 ####[facility] [address] [place], [address] ECRCL 151.59 ml/min Normal 50-250 [facility] Comment on above: Performed By: #### L 501.2300, L100.0100, L500.2500, L501.5200 ####[facility] [address] [place], [address] GAP 9 Normal 5-15 [facility] Comment on above: Performed By: #### L 501.2300, L100.0100, L500.2500, L501.5200 ####[facility] [address] [place], [address] GFR/1.73 sq M.predicted among non-blacks MDRD (S/P/Bld) [Vol rate/Area] 121 mL/min/{1.73_m2} Normal >60 [facility] Comment on above: Result Comment: mL/m in/1.73m2 CKD-EPI Creatinine Equation (2020) Performed By: #### L 501.2300, L100.0100, L500.2500, L501.5200 ####[facility] [address] [place], [address] Glucose [Mass/Vol] 94 mg/dL Normal 70-99 [facility] Comment on above: Performed By: #### L 501.2300, L100.0100, L500.2500, L501.5200 ####[facility] [address] [place], [address] Potassium [Moles/Vol] 4.3 mmol/L Normal 3.3-5.1 [facility] Comment on above: Performed By: #### L 501.2300, L100.0100, L500.2500, L501.5200 ####[facility] [address] [place], [address] Sodium [Moles/Vol] 138 mmol/L Normal 133-145 [facility] Comment on above: Performed By: #### L 501.2300, L100.0100, L500.2500, L501.5200 ####[facility] [address] [place], [address] Urea nitrogen [Mass/Vol] 13 mg/dL Normal 4-19 [facility] Comment on above: Performed By: #### L 501.2300, L100.0100, L500.2500, L501.5200 ####[facility] [address] [place], [address] CBC W/Diff, Automatedon 08-0 8-5 Absolute Lymph 2.78 X10 3/uL Normal 0.83-4.51 [facility] Comment on above: Performed By: #### L 501.2300, L100.0100, L500.2500, L501.5200 ####[facility] [address] [place], [address] Absolute Neut 4.8 X10 3/uL Normal 2.0-7.7 [facility] Comment on above: Performed By: #### L 501.2300, L100.0100, L500.2500, L501.5200 ####[facility] [address] [place], [address] Basophils/100 WBC (Bld) 0.6 % Normal 0-1 [facility] Comment on above: Performed By: #### L 501.2300, L100.0100, L500.2500, L501.5200 ####[facility] [address] [place], [address] Eosinophils/100 WBC (Bld) 2.2 % Normal 0-5 [facility] Comment on above: Performed By: #### L 501.2300, L100.0100, L500.2500, L501.5200 ####[facility] [address] [place], [address] Erythrocyte distribution width (RBC) [Ratio] 11.7 % Normal 11.6-14.6 [facility] Comment on above: Performed By: #### L 501.2300, L100.0100, L500.2500, L501.5200 ####[facility] [address] [place], [address] Hematocrit (Bld) [Volume fraction] 39.2 % Normal 37-47 [facility] Comment on above: Performed By: #### L 501.2300, L100.0100, L500.2500, L501.5200 ####[facility] [address] [place], [address] Hemoglobin (Bld) [Mass/Vol] 13.0 g/dL Normal 12.0-15.0 [facility] Comment on above: Performed By: #### L 501.2300, L100.0100, L500.2500, L501.5200 ####[facility] [address] [place], [address] IG% 0.300 Normal 0.0-0.9 [facility] Comment on above: Result Comment: IG% - Immature Granulocytes (promyelocytes, myelocytes andmetamyelocytes) > 1% indicates that a LEFT SHIFT is Present. Performed By: #### L 501.2300, L100.0100, L500.2500, L501.5200 ####[facility] [address] [place], [address] Lymphocytes/100 WBC (Bld) 32.3 % Normal 19-41 [facility] Comment on above: Performed By: #### L 501.2300, L100.0100, L500.2500, L501.5200 ####[facility] [address] [place], [address] MCH (RBC) [Entitic mass] 30.5 pg Normal 27.0-32.0 [facility] Comment on above: Performed By: #### L 501.2300, L100.0100, L500.2500, L501.5200 ####[facility] [address] [place], [address] MCHC (RBC) [Mass/Vol] 33.2 g/dL Normal 32-36 [facility] Comment on above: Performed By: #### L 501.2300, L100.0100, L500.2500, L501.5200 ####[facility] [address] [place], [address] MCV (RBC) [Entitic vol] 92.0 fL Normal 81-99 [facility] Comment on above: Performed By: #### L 501.2300, L100.0100, L500.2500, L501.5200 ####[facility] [address] [place], [address] Monocytes/100 WBC (Bld) 9.0 % Normal 0-10 [facility] Comment on above: Performed By: #### L 501.2300, L100.0100, L500.2500, L501.5200 ####[facility] [address] [place], [address] Neutrophils/100 WBC (Bld) 55.6 % Normal 47-70 [facility] Comment on above: Performed By: #### L 501.2300, L100.0100, L500.2500, L501.5200 ####[facility] [address] [place], [address] Nucleated RBC (Bld) [#/Vol] 0 10*3/uL Normal 0-5 [facility] Comment on above: Performed By: #### L 501.2300, L100.0100, L500.2500, L501.5200 ####[facility] [address] [place], [address] Platelet mean volume (Bld) [Entitic vol] 10.7 fL Normal 6.2-12.0 [facility] Comment on above: Performed By: #### L 501.2300, L100.0100, L500.2500, L501.5200 ####[facility] [address] [place], [address] Platelets (Bld) [#/Vol] 329 10*3/uL Normal 150-450 [facility] Comment on above: Performed By: #### L 501.2300, L100.0100, L500.2500, L501.5200 ####[facility] [address] [place], [address] RBC (Bld) [#/Vol] 4.26 10*6/uL Normal 4.2-5.4 [facility] Comment on above: Performed By: #### L 501.2300, L100.0100, L500.2500, L501.5200 ####[facility] [address] [place], [address] RDW SD 39.6 fl Normal 35.1-43.9 [facility] Comment on above: Performed By: #### L 501.2300, L100.0100, L500.2500, L501.5200 ####[facility] [address] [place], [address] WBC (Bld) [#/Vol] 8.6 10*3/uL Normal 4.4-11.0 [facility] Comment on above: Performed By: #### L 501.2300, L100.0100, L500.2500, L501.5200 ####[facility] [address] [place], [address] Magnesiumon 11-08-2024 Magnesium [Mass/Vol] 2.4 mg/dL High 1.5-2.2 [facility] Comment on above: Performed By: #### L 501.2300, L100.0100, L500.2500, L501.5200 ####[facility] [address] [place], [address] Magnesium measurement (mass/ volume)Ordered By: Nehemiah Hammond on 11-08-2024 Magnesium (Unsp spec) [Mass/Vol] 2.4 mg/dL High 1.5-2.2 [facility] Phosphoruson 11-08-2024 Phosphate [Mass/Vol] 3.5 mg/dL Normal 2.7-4.5 [facility] Comment on above: Performed By: #### L 501.2300, L100.0100, L500.2500, L501.5200 ####[facility] [address] [place], [address] CBC W/Diff, Automatedon Absolute Lymph 2.57 X10 3/uL Normal 0.83-4.51 [facility] Comment on above: Performed By: #### L 100.0100 ####[facility] [address] [place], [address] Absolute Neut 6.8 X10 3/uL Normal 2.0-7.7 [facility] Comment on above: Performed By: #### L 100.0100 ####[facility] [address] [place], [address] Basophils/100 WBC (Bld) 0.4 % Normal 0-1 [facility] Comment on above: Performed By: #### L 100.0100 ####[facility] [address] [place], [address] Eosinophils/100 WBC (Bld) 1.7 % Normal 0-5 [facility] Comment on above: Performed By: #### L 100.0100 ####[facility] [address] [place], [address] Erythrocyte distribution width (RBC) [Ratio] 11.7 % Normal 11.6-14.6 [facility] Comment on above: Performed By: #### L 100.0100 ####[facility] [address] [place], [address] Hematocrit (Bld) [Volume fraction] 46.2 % Normal 37-47 [facility] Comment on above: Performed By: #### L 100.0100 ####[facility] [address] [place], [address] Hemoglobin (Bld) [Mass/Vol] 15.8 g/dL High 12.0-15.0 [facility] Comment on above: Performed By: #### L 100.0100 ####[facility] [address] [place], [address] IG% 0.300 Normal 0.0-0.9 [facility] Comment on above: Result Comment: IG% - Immature Granulocytes (promyelocytes, myelocytes andmetamyelocytes) > 1% indicates that a LEFT SHIFT is Present. Performed By: #### L 100.0100 ####[facility] [address] [place], [address] Lymphocytes/100 WBC (Bld) 24.1 % Normal 19-41 [facility] Comment on above: Performed By: #### L 100.0100 ####[facility] [address] [place], [address] MCH (RBC) [Entitic mass] 31.0 pg Normal 27.0-32.0 [facility] Comment on above: Performed By: #### L 100.0100 ####[facility] [address] [place], [address] MCHC (RBC) [Mass/Vol] 34.2 g/dL Normal 32-36 [facility] Comment on above: Performed By: #### L 100.0100 ####[facility] [address] [place], [address] MCV (RBC) [Entitic vol] 90.6 fL Normal 81-99 [facility] Comment on above: Performed By: #### L 100.0100 ####[facility] [address] [place], [address] Monocytes/100 WBC (Bld) 9.6 % Normal 0-10 [facility] Comment on above: Performed By: #### L 100.0100 ####[facility] [address] [place], [address] Neutrophils/100 WBC (Bld) 63.9 % Normal 47-70 [facility] Comment on above: Performed By: #### L 100.0100 ####[facility] [address] [place], [address] Nucleated RBC (Bld) [#/Vol] 0 10*3/uL Normal 0-5 [facility] Comment on above: Performed By: #### L 100.0100 ####[facility] [address] [place], [address] Platelet mean volume (Bld) [Entitic vol] 10.2 fL Normal 6.2-12.0 [facility] Comment on above: Performed By: #### L 100.0100 ####[facility] [address] [place], [address] Platelets (Bld) [#/Vol] 382 10*3/uL Normal 150-450 [facility] Comment on above: Performed By: #### L 100.0100 ####[facility] [address] [place], [address] RBC (Bld) [#/Vol] 5.10 10*6/uL Normal 4.2-5.4 [facility] Comment on above: Performed By: #### L 100.0100 ####[facility] [address] [place], [address] RDW SD 38.9 fl Normal 35.1-43.9 [facility] Comment on above: Performed By: #### L 100.0100 ####[facility] [address] [place], [address] WBC (Bld) [#/Vol] 10.7 10*3/uL Normal 4.4-11.0 [facility] Comment on above: Performed By: #### L 100.0100 ####[facility] [address] [place], [address] CBC-Complete Blood Cnt No Di ffon 11-07-2024 Erythrocyte distribution width (RBC) [Ratio] 11.8 % Normal 11.6-14.6 [facility] Comment on above: Performed By: #### L 100.0500 ####[facility] [address] [place], [address] Hematocrit (Bld) [Volume fraction] 46.4 % Normal 37-47 [facility] Comment on above: Performed By: #### L 100.0500 ####[facility] [address] [place], [address] Hemoglobin (Bld) [Mass/Vol] 15.4 g/dL High 12.0-15.0 [facility] Comment on above: Performed By: #### L 100.0500 ####[facility] [address] [place], [address] MCH (RBC) [Entitic mass] 30.6 pg Normal 27.0-32.0 [facility] Comment on above: Performed By: #### L 100.0500 ####[facility] [address] [place], [address] MCHC (RBC) [Mass/Vol] 33.2 g/dL Normal 32-36 [facility] Comment on above: Performed By: #### L 100.0500 ####[facility] [address] [place], [address] MCV (RBC) [Entitic vol] 92.2 fL Normal 81-99 [facility] Comment on above: Performed By: #### L 100.0500 ####[facility] [address] [place], [address] Platelet mean volume (Bld) [Entitic vol] 10.4 fL Normal 6.2-12.0 [facility] Comment on above: Performed By: #### L 100.0500 ####[facility] [address] [place], [address] Platelets (Bld) [#/Vol] 424 10*3/uL Normal 150-450 [facility] Comment on above: Performed By: #### L 100.0500 ####[facility] [address] [place], [address] RBC (Bld) [#/Vol] 5.03 10*6/uL Normal 4.2-5.4 [facility] Comment on above: Performed By: #### L 100.0500 ####[facility] [address] [place], [address] RDW SD 39.5 fl Normal 35.1-43.9 [facility] Comment on above: Performed By: #### L 100.0500 ####[facility] [address] [place], [address] WBC (Bld) [#/Vol] 11.0 10*3/uL Normal 4.4-11.0 [facility] Comment on above: Performed By: #### L 100.0500 ####[facility] [address] [place], [address] Basic Metabolic Profile (BMP )on 11-06-2024 BUN/CRE 29.5 RATIO High 10-20 [facility] Comment on above: Performed By: #### L 100.0100, L500.2500 ####[facility] [address] [place], [address] Calcium [Mass/Vol] 9.5 mg/dL Normal 7.6-11.0 [facility] Comment on above: Performed By: #### L 100.0100, L500.2500 ####[facility] [address] [place], [address] Chloride [Moles/Vol] 101 mmol/L Normal 98-108 [facility] Comment on above: Performed By: #### L 100.0100, L500.2500 ####[facility] [address] [place], [address] CO2 [Moles/Vol] 22.2 mmol/L Normal 21.0-32.0 [facility] Comment on above: Performed By: #### L 100.0100, L500.2500 ####[facility] [address] [place], [address] Creatinine [Mass/Vol] 0.58 mg/dL Low 0.70-1.20 [facility] Comment on above: Performed By: #### L 100.0100, L500.2500 ####[facility] [address] [place], [address] ECRCL 128.07 ml/min Normal 50-250 [facility] Comment on above: Performed By: #### L 100.0100, L500.2500 ####[facility] [address] [place], [address] GAP 15 Normal 5-15 [facility] Comment on above: Performed By: #### L 100.0100, L500.2500 ####[facility] [address] [place], [address] GFR/1.73 sq M.predicted among non-blacks MDRD (S/P/Bld) [Vol rate/Area] 117 mL/min/{1.73_m2} Normal >60 [facility] Comment on above: Result Comment: mL/m in/1.73m2 CKD-EPI Creatinine Equation (2020) Performed By: #### L 100.0100, L500.2500 ####[facility] [address] [place], [address] Glucose [Mass/Vol] 112 mg/dL High 70-99 [facility] Comment on above: Performed By: #### L 100.0100, L500.2500 ####[facility] [facility] [address] [place], [address] Potassium [Moles/Vol] 3.9 mmol/L Normal 3.3-5.1 [facility] Comment on above: Performed By: #### L 100.0100, L500.2500 ####[facility] [address] [place], [address] Sodium [Moles/Vol] 138 mmol/L Normal 133-145 [facility] Comment on above: Performed By: #### L 100.0100, L500.2500 ####[facility] [address] [place], [address] Urea nitrogen [Mass/Vol] 17 mg/dL Normal 4-19 [facility] Comment on above: Performed By: #### L 100.0100, L500.2500 ####[facility] [address] [place], [address] CBC W/Diff, Automatedon 08-0 6-2024 Absolute Lymph 2.66 X10 3/uL Normal 0.83-4.51 [facility] Comment on above: Performed By: #### L 100.0100, L500.2500 ####[facility] [address] [place], [address] Absolute Neut 5.7 X10 3/uL Normal 2.0-7.7 [facility] Comment on above: Performed By: #### L 100.0100, L500.2500 ####[facility] [address] [place], [address] Basophils/100 WBC (Bld) 0.7 % Normal 0-1 [facility] Comment on above: Performed By: #### L 100.0100, L500.2500 ####[facility] [address] [place], [address] Eosinophils/100 WBC (Bld) 1.7 % Normal 0-5 [facility] Comment on above: Performed By: #### L 100.0100, L500.2500 ####[facility] [address] [place], [address] Erythrocyte distribution width (RBC) [Ratio] 11.9 % Normal 11.6-14.6 [facility] Comment on above: Performed By: #### L 100.0100, L500.2500 ####[facility] [address] [place], [address] Hematocrit (Bld) [Volume fraction] 52.1 % High 37-47 [facility] Comment on above: Performed By: #### L 100.0100, L500.2500 ####[facility] [address] [place], [address] Hemoglobin (Bld) [Mass/Vol] 17.4 g/dL High 12.0-15.0 [facility] Comment on above: Performed By: #### L 100.0100, L500.2500 ####[facility] [address] [place], [address] IG% 0.400 Normal 0.0-0.9 [facility] Comment on above: Result Comment: IG% - Immature Granulocytes (promyelocytes, myelocytes andmetamyelocytes) > 1% indicates that a LEFT SHIFT is Present. Performed By: #### L 100.0100, L500.2500 ####[facility] [address] [place], [address] Lymphocytes/100 WBC (Bld) 27.6 % Normal 19-41 [facility] Comment on above: Performed By: #### L 100.0100, L500.2500 ####[facility] [address] [place], [address] MCH (RBC) [Entitic mass] 30.1 pg Normal 27.0-32.0 [facility] Comment on above: Performed By: #### L 100.0100, L500.2500 ####[facility] [address] [place], [address] MCHC (RBC) [Mass/Vol] 33.4 g/dL Normal 32-36 [facility] Comment on above: Performed By: #### L 100.0100, L500.2500 ####[facility] [address] [place], [address] MCV (RBC) [Entitic vol] 90.1 fL Normal 81-99 [facility] Comment on above: Performed By: #### L 100.0100, L500.2500 ####[facility] [address] [place], [address] Monocytes/100 WBC (Bld) 10.9 % High 0-10 [facility] Comment on above: Performed By: #### L 100.0100, L500.2500 ####[facility] [address] [place], [address] Neutrophils/100 WBC (Bld) 58.7 % Normal 47-70 [facility] Comment on above: Performed By: #### L 100.0100, L500.2500 ####[facility] [address] [place], [address] Nucleated RBC (Bld) [#/Vol] 0 10*3/uL Normal 0-5 [facility] Comment on above: Performed By: #### L 100.0100, L500.2500 ####[facility] [address] [place], [address] Platelet mean volume (Bld) [Entitic vol] 10.3 fL Normal 6.2-12.0 [facility] Comment on above: Performed By: #### L 100.0100, L500.2500 ####[facility] [address] [place], [address] Platelets (Bld) [#/Vol] 361 10*3/uL Normal 150-450 [facility] Comment on above: Performed By: #### L 100.0100, L500.2500 ####[facility] [address] [place], [address] RBC (Bld) [#/Vol] 5.78 10*6/uL High 4.2-5.4 [facility] Comment on above: Performed By: #### L 100.0100, L500.2500 ####[facility] [address] [place], [address] RDW SD 39.6 fl Normal 35.1-43.9 [facility] Comment on above: Performed By: #### L 100.0100, L500.2500 ####[facility] [address] [place], [address] WBC (Bld) [#/Vol] 9.6 10*3/uL Normal 4.4-11.0 [facility] Comment on above: Performed By: #### L 100.0100, L500.2500 ####[facility] [address] [place], [address] HH, Hemoglobin AND Hematocri ton 11-06-2024 Hematocrit (Bld) [Volume fraction] 51.2 % High 37-47 [facility] Comment on above: Performed By: #### L 100.0600 ####[facility] [address] [place], [address] Hemoglobin (Bld) [Mass/Vol] 17.0 g/dL High 12.0-15.0 [facility] Comment on above: Performed By: #### L 100.0600 ####[facility] [address] [place], [address] Magnesiumon 11-06-2024 Magnesium [Mass/Vol] 2.3 mg/dL High 1.5-2.2 [facility] Comment on above: Performed By: #### L 501.5200 ####[facility] [address] [place], [address] Abdomen Completeon Abdomen Complete Normal [facility] Abdomen/Pelvis WITH Contrast on 11-05-2024 Abdomen/Pelvis WITH Contrast Normal [facility] Basic Metabolic Profile (BMP )on 11-05-2024 BUN Normal 4-19 [facility] Comment on above: Result Comment: Canc elled via OM: MD Ordered Performed By: #### L 500.2500, L100.0500 ####[facility] [address] [place], [address] BUN/CRE Normal 10-20 [facility] Comment on above: Result Comment: Canc elled via OM: MD Ordered Performed By: #### L 500.2500, L100.0500 ####[facility] [address] [place], [address] Calcium Normal 7.6-11.0 [facility] Comment on above: Result Comment: Canc elled via OM: MD Ordered Performed By: #### L 500.2500, L100.0500 ####[facility] [address] [place], [address] CL Normal 98-108 [facility] Comment on above: Result Comment: Canc elled via OM: MD Ordered Performed By: #### L 500.2500, L100.0500 ####[facility] [address] [place], [address] CO2 Normal 21.0-32.0 [facility] Comment on above: Result Comment: Canc elled via OM: MD Ordered Performed By: #### L 500.2500, L100.0500 ####[facility] [address] [place], [address] CREAT,SERUM Normal 0.70-1.20 [facility] Comment on above: Result Comment: Canc elled via OM: MD Ordered Performed By: #### L 500.2500, L100.0500 ####[facility] [address] [place], [address] eGFR Normal >60 [facility] Comment on above: Result Comment: Canc elled via OM: MD Ordered Performed By: #### L 500.2500, L100.0500 ####[facility] [address] [place], [address] GAP Normal 5-15 [facility] Comment on above: Result Comment: Canc elled via OM: MD Ordered Performed By: #### L 500.2500, L100.0500 ####[facility] [address] [place], [address] GLU Normal 70-99 [facility] Comment on above: Result Comment: Canc elled via OM: MD Ordered Performed By: #### L 500.2500, L100.0500 ####[facility] [address] [place], [address] Potassium Normal 3.3-5.1 [facility] Comment on above: Result Comment: Canc elled via OM: MD Ordered Performed By: #### L 500.2500, L100.0500 ####[facility] [address] [place], [address] Basic Metabolic Profile (BMP) Normal 133-145 [facility] Comment on above: Result Comment: Canc elled via OM: MD Ordered Performed By: #### L 500.2500, L100.0500 ####[facility] [address] [place], [address] CBC-Complete Blood Cnt No Di ffon 11-05-2024 Erythrocyte distribution width (RBC) [Ratio] 12.1 % Normal 11.6-14.6 [facility] Comment on above: Performed By: #### L 500.2500, L100.0500 ####[facility] [address] [place], [address] Hematocrit (Bld) [Volume fraction] 52.8 % High 37-47 [facility] Comment on above: Performed By: #### L 500.2500, L100.0500 ####[facility] [address] [place], [address] Hemoglobin (Bld) [Mass/Vol] 17.5 g/dL High 12.0-15.0 [facility] Comment on above: Performed By: #### L 500.2500, L100.0500 ####[facility] [address] [place], [address] MCH (RBC) [Entitic mass] 29.9 pg Normal 27.0-32.0 [facility] Comment on above: Performed By: #### L 500.2500, L100.0500 ####[facility] [address] [place], [address] MCHC (RBC) [Mass/Vol] 33.1 g/dL Normal 32-36 [facility] Comment on above: Performed By: #### L 500.2500, L100.0500 ####[facility] [address] [place], [address] MCV (RBC) [Entitic vol] 90.3 fL Normal 81-99 [facility] Comment on above: Performed By: #### L 500.2500, L100.0500 ####[facility] [address] [place], [address] Platelet mean volume (Bld) [Entitic vol] 10.3 fL Normal 6.2-12.0 [facility] Comment on above: Performed By: #### L 500.2500, L100.0500 ####[facility] [address] [place], [address] Platelets (Bld) [#/Vol] 342 10*3/uL Normal 150-450 [facility] Comment on above: Performed By: #### L 500.2500, L100.0500 ####[facility] [address] [place], [address] RBC (Bld) [#/Vol] 5.85 10*6/uL High 4.2-5.4 [facility] Comment on above: Performed By: #### L 500.2500, L100.0500 ####[facility] [address] [place], [address] RDW SD 40.9 fl Normal 35.1-43.9 [facility] Comment on above: Performed By: #### L 500.2500, L100.0500 ####[facility] [address] [place], [place], [address] WBC (Bld) [#/Vol] 12.9 10*3/uL High 4.4-11.0 [facility] Comment on above: Performed By: #### L 500.2500, L100.0500 ####[facility] [address] [place], [place], [address] Erythropoietinon 11-05-2024 ERYTHROPOIETIN 2.1 mIU/mL Low 2.6-18.5 [facility] Comment on above: Result Comment: [employer] DxI 800 Immunoassay SystemValues obtained with different assay methods or kits cannotbe used interchangeably. Results cannot be interpreted asabsolute evidence of the presence or absence of malignantdisease.Performed at: [place] [id number] Director: Dl Campuzano PhD, Phone: [phone] Performed By: #### L 6781.6729 ####[facility] [address] [place], [place], [id number] 12 Lead EKGon 11-04-2024 12 Lead EKG Normal [facility] 12 Lead EKG Normal [facility] Absolute lymphocyte countOrd ered By: Luis Ravi on 11-04-2024 Lymphocytes Auto (Unsp spec) [#/Vol] 3.01 10*3/uL 0.83-4.51 [facility] Absolute neutrophil countOrd ered By: Luis Ravi on 11-04-2024 Neutrophils (Bld) [#/Vol] 7.9 10*3/uL High 2.0-7.7 [facility] Activated partial thrombopla stin time (aPTT) in platelet poor plasma by coagulation aOrdered By: Law Eduardo on 11-04-2024 aPTT Coag (PPP) [Time] 27.0 s 24.1-36.2 [facility] Automated lymphocyte count a s percentage of total leukocytesOrdered By: Luis Rvai on 11-04-2024 Lymphocytes/100 WBC Auto (Unsp spec) 24.9 % 19-41 [facility] Basophil percentageOrdered B y: Luis Ravi on 11-04-2024 Basophils/100 WBC (Bld) 0.4 % 0-1 [facility] CBC W/Diff, Automatedon Absolute Lymph 3.01 X10 3/uL Normal 0.83-4.51 [facility] Comment on above: Performed By: #### L 100.0100 ####[facility] [address] [place], [address] Absolute Neut 7.9 X10 3/uL High 2.0-7.7 [facility] Comment on above: Performed By: #### L 100.0100 ####[facility] [address] [place], [address] Basophils/100 WBC (Bld) 0.4 % Normal 0-1 [facility] Comment on above: Performed By: #### L 100.0100 ####[facility] [address] [place], [address] Eosinophils/100 WBC (Bld) 0.6 % Normal 0-5 [facility] Comment on above: Performed By: #### L 100.0100 ####[facility] [address] [place], [address] Erythrocyte distribution width (RBC) [Ratio] 12.8 % Normal 11.6-14.6 [facility] Comment on above: Performed By: #### L 100.0100 ####[facility] [address] [place], [address] Hematocrit (Bld) [Volume fraction] 54.0 % High 37-47 [facility] Comment on above: Performed By: #### L 100.0100 ####[facility] [address] [place], [address] Hemoglobin (Bld) [Mass/Vol] 17.7 g/dL High 12.0-15.0 [facility] Comment on above: Performed By: #### L 100.0100 ####[facility] [address] [place], [address] IG% 0.200 Normal 0.0-0.9 [facility] Comment on above: Result Comment: IG% - Immature Granulocytes (promyelocytes, myelocytes andmetamyelocytes) > 1% indicates that a LEFT SHIFT is Present. Performed By: #### L 100.0100 ####[facility] [address] [place], [address] Lymphocytes/100 WBC (Bld) 24.9 % Normal 19-41 [facility] Comment on above: Performed By: #### L 100.0100 ####[facility] [address] [place], [address] MCH (RBC) [Entitic mass] 29.8 pg Normal 27.0-32.0 [facility] Comment on above: Performed By: #### L 100.0100 ####[facility] [address] [place], [address] MCHC (RBC) [Mass/Vol] 32.8 g/dL Normal 32-36 [facility] Comment on above: Performed By: #### L 100.0100 ####[facility] [address] [place], [address] MCV (RBC) [Entitic vol] 91.1 fL Normal 81-99 [facility] Comment on above: Performed By: #### L 100.0100 ####[facility] [address] [place], [address] Monocytes/100 WBC (Bld) 8.2 % Normal 0-10 [facility] Comment on above: Performed By: #### L 100.0100 ####[facility] [address] [place], [address] Neutrophils/100 WBC (Bld) 65.7 % Normal 47-70 [facility] Comment on above: Performed By: #### L 100.0100 ####[facility] [address] [place], [address] Nucleated RBC (Bld) [#/Vol] 0 10*3/uL Normal 0-5 [facility] Comment on above: Performed By: #### L 100.0100 ####[facility] [address] [place], [address] Platelet mean volume (Bld) [Entitic vol] 10.2 fL Normal 6.2-12.0 [facility] Comment on above: Performed By: #### L 100.0100 ####[facility] [address] [place], [address] Platelets (Bld) [#/Vol] 377 10*3/uL Normal 150-450 [facility] Comment on above: Performed By: #### L 100.0100 ####[facility] [address] [place], [address] RBC (Bld) [#/Vol] 5.93 10*6/uL High 4.2-5.4 [facility] Comment on above: Performed By: #### L 100.0100 ####[facility] [address] [place], [address] RDW SD 43.2 fl Normal 35.1-43.9 [facility] Comment on above: Performed By: #### L 100.0100 ####[facility] [address] [place], [address] WBC (Bld) [#/Vol] 12.1 10*3/uL High 4.4-11.0 [facility] Comment on above: Performed By: #### L 100.0100 ####[facility] [address] [place], [address] Consultation - Cardiologyon 11-04-2024 Consultation - Cardiology Normal [facility] Consultation - Oncology IPon 11-04-2024 Consultation - Oncology IP Normal [facility] Eosinophil percentageOrdered By: Luis Ravi on 11-04-2024 Eosinophils/100 WBC (Bld) 0.6 % 0-5 [facility] Erythrocyte distribution wid th ratioOrdered By: [facility] on 11-04-2024 Erythrocyte distribution width (RBC) [Ratio] 12.8 % 11.6-14.6 [facility] Erythrocyte distribution wid th standard deviationOrdered By: [facility] on 11-04-2024 Erythrocyte distribution width (RBC) [Ratio] 43.2 fl 35.1-43.9 [facility] H AND P Exam - Hospitaliston 11-04-2024 H&P Exam - Hospitalist Normal [facility] Hematocrit Auto (Bld) [Volum e fraction]Ordered By: Luis Ravi on 11-04-2024 Hematocrit (Bld) [Volume fraction] 54.0 % High 37-47 [facility] Hemoglobin measurementOrdere d By: Luis Ravi on 11-04-2024 Hemoglobin (Bld) [Mass/Vol] 17.7 g/dL High 12.0-15.0 [facility] Immature granulocytes/100 WB C Auto (Bld)Ordered By: Luis Trav on 11-04-2024 Immature granulocytes/100 WBC (Bld) 0.200 % 0.0-0.9 [facility] Comment on above: IG% - Immature Granu locytes (promyelocytes, myelocytes and metamyelocytes) > 1% indicates that a LEFT SHIFT is Present. JAK2 Mutation Analysison JAK2 COMMENT Comment Normal . [facility] Comment on above: Result Comment: Tech nical Component performed at [employer] RTPProfessional Component performed by:Lisbet Price, PhD, FACMGDirector, Molecular OncologyCollis P. [facility] [id number], [address] [facility] [phone] test was developed and its performance characteristicsdetermined by [employer]. It has not been cleared orapproved by the Food and Drug Administration.Performed at: [facility] [id number] [place], [place] [id number] Director: Marilynbao Campos [facility], Phone: [phone] at: TG - [facility] [address] [place], [place] [id number] Director: Marilynbao Campos [facility], Phone: [phone] Performed By: #### L 3440.5000 ####[facility] [address] [place], [place], [address] JAK2 COMMENT 2 Comment Normal . [facility] Comment on above: Result Comment: JAK2 is a cytoplasmic tyrosine kinase with a connell role insignal transduction from multiple hematopoietic growthfactor receptors. 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 The [employer] Absolute Quantitation softwarewill compare the patient specimen valuse to the standardcurves and generate percent values for wild type andmutant type. In vitro studies have indicated that thisassay has an analytical sensitivity of 1%.References:Solo EJ, Roger LM, Macho PJ, et al. Acquiredmutation of the tyrosine kinase JAK2 in humanmyeloproliferative disorders. Lancet. 2005 Jun 19-;365(9060):3846-8611. Geraldo Peacock V, Pito Curry JP. Aunique clonal JAK2 mutation leading to constitutivesignaling causes polycythaemia vera. Nature. 2005 Jul 28;880(8431):1319-5037.Chris Dowdi F, Joseph , et al. A wqbn-dn-pcntqprv mutation of JAK2 in myeloproliferative disorders.N Engl J Med. 2004Jul 29; 352(17):7715-4740. Performed By: #### L 3440.5000 ####[facility] [address] [place], [address] JAK2 MUT QUAL Comment Normal . [facility] Comment on above: Result Comment: Resu lt: NEGATIVE for the JAK2 V617F mutation.Interpretation: The G to T nucleotide change encoding [id number] mutation was not detected. This result does [...] these disorders. Performed By: #### L 3440.5000 ####[facility] [address] [place], [address] L501.4021on 11-04-2024 Trop T High Sen 26 ng/L High <=14 [facility] Comment on above: Order Comment: CIARA Perez PREVIOUS SPECIMEN REJECTED DUE TOHEMOLYSIS. 11/04/24 Comfort Garcia. Performed By: #### L 501.4021 ####[facility] [address] [place], [address] MCV (mean corpuscular volume ) determinationOrdered By: Luis Ravi on 11-04-2024 MCV (RBC) [Entitic vol] 91.1 fL 81-99 [facility] Mean corpuscular hemoglobin (MCH) determinationOrdered By: Luis Ravi on 11-04-2024 MCH (RBC) [Entitic mass] 29.8 pg 27.0-32.0 [facility] Mean corpuscular hemoglobin concentration (MCHC) determinationOrdered By: Luis Ravi on 11-04-2024 MCHC (RBC) [Mass/Vol] 32.8 g/dL 32-36 [facility] Mean platelet volume determi nationOrdered By: Luis Ravi on 11-04-2024 Platelet mean volume (Bld) [Entitic vol] 10.2 fL 6.2-12.0 [facility] Monocyte percentageOrdered B y: Luis Ravi on 11-04-2024 Monocytes/100 WBC (Bld) 8.2 % 0-10 [facility] Neutrophil percentageOrdered By: Luis Ravi on 11-04-2024 Neutrophils/100 WBC (Bld) 65.7 % 47-70 [facility] No Panel InformationOrdered By: Kaleb Horta on 11-04-2024 Comment . [facility] Nucleated red blood cell per centageOrdered By: Luis Ravi on 11-04-2024 Nucleated RBC/100 WBC (Bld) [Ratio] 0 % 0-5 [facility] Partial Thromboplast Timeon 11-04-2024 aPTT Coag (Bld) [Time] 27.0 s Normal 24.1-36.2 [facility] Comment on above: Performed By: #### L 300.4310 ####[facility] [address] [place], [place], [id number] Platelet countOrdered By: Aurelio Ravi on 11-04-2024 Platelets (Bld) [#/Vol] 377 10*3/uL 150-450 [facility] ,Urineon 11-04-2024 Beta HCG ( test) Ql (U) Negative Normal [facility] Comment on above: Result Comment: Very dilute urine specimens, as indicated by a low specificgravity, may not contain fuels sales representative levels of hCG.If is still suspected, a first morning urinespecimen should be collected 48 hours later and tested. Performed By: #### L 400.7600 ####[facility] [address] [place], [place], [address] RBC Auto (Bld) [#/Vol]Ordere d By: Luis Ravi on 11-04-2024 RBC (Bld) [#/Vol] 5.93 10*6/uL High 4.2-5.4 [facility] Serum or plasma erythropoiet in (EPO) measurement (units/volume)Ordered By: Netta Domingo on 11-04-2024 Erythropoietin (EPO) Qn 2.1 mIU/mL Low 2.6-18.5 [facility] Comment on above: [employer] DxI 800 Immunoassay SystemValues obtained with different assay methods or kits cannotbe used interchangeably. Results cannot be interpreted asabsolute evidence of the presence or absence of malignantdisease.Performed at: [address] [id number] Director: Dl Campuzano PhD, Phone: [phone] Troponin T HS 2 HRon 025 Trop T High Sen 31 ng/L High <=14 [facility] Comment on above: Performed By: #### L 499.0042 ####[facility] [address] [place], [place], [phone]) Trop T High Sen Normal <=14 [facility] Comment on above: Result Comment: WAS DRAWN ON PCU UNDER PCU DR ORDER Performed By: #### L 499.0042 ####[facility] [address] [place], [place], [id number]) Troponin T HS 4 HRon 025 Trop T High Sen 48 ng/L High <=14 [facility] Comment on above: Result Comment: Hemo lysis present, Results??could be affected.?? Performed By: #### L 499.0043 ####[facility] [address] [place], [address] Trop T High Sen Normal <=14 [facility] Comment on above: Result Comment: Canc elled via OM: Order cancelled - Patient discharged Performed By: #### L 499.0043 ####[facility] [address] [place], [place], [phone] Troponin T.cardiac [Mass/vol ume] in Serum or Plasma by High sensitivity methodOrdered By: Netta Domingo on 11-04-2024 Troponin T.cardiac High sensitivity method [Mass/Vol] 48 ng/L High <14 [facility] Comment on above: Hemolysis present, R esults could be affected. Troponin T.cardiac High sensitivity method [Mass/Vol] 31 ng/L High <14 [facility] Troponin T.cardiac [Mass/vol ume] in Serum or Plasma by High sensitivity methodOrdered By: Luis Ravi on 11-04-2024 Troponin T.cardiac High sensitivity method [Mass/Vol] 26 ng/L High <14 [facility] Comment on above: Delta: < 6 on Urine testOrdered By: Law Eduardo on 11-04-2024 HCG ( test) Ql (U) Negative [facility] Comment on above: Very dilute urine sp ecimens, as indicated by a low specificgravity, may not contain fuels sales representative levels of hCG. If is still suspected, a first morning urinespecimen should be collected 48 hours later and tested. White blood cell (WBC) count Ordered By: Luis Ravi on 11-04-2024 WBC (Bld) [#/Vol] 12.1 10*3/uL High 4.4-11.0 [facility] Anion gap in Serum or Plasma Ordered By: Luis Ravi on 11-03-2024 Anion gap [Moles/Vol] 19 mmol/L High 5-15 [facility] BUN/creatinine ratioOrdered By: Luis Ravi on 11-03-2024 Urea nitrogen/Creatinine [Mass ratio] 31.0 mg/mg High 10-20 [facility] Basic Metabolic Profile (BMP )on 11-03-2024 BUN/CRE 31.0 RATIO High 10-20 [facility] Comment on above: Performed By: #### L 500.2500 ####[facility] [address] [place], [address] Calcium [Mass/Vol] 10.2 mg/dL Normal 7.6-11.0 [facility] Comment on above: Performed By: #### L 500.2500 ####[facility] [address] [place], [address] Chloride [Moles/Vol] 99 mmol/L Normal 98-108 [facility] Comment on above: Performed By: #### L 500.2500 ####[facility] [address] [place], [address] CO2 [Moles/Vol] 19.6 mmol/L Low 21.0-32.0 [facility] Comment on above: Performed By: #### L 500.2500 ####[facility] [address] [place], [address] Creatinine [Mass/Vol] 0.69 mg/dL Low 0.70-1.20 [facility] Comment on above: Performed By: #### L 500.2500 ####[facility] [address] [place], [address] ECRCL 105.73 ml/min Normal 50-250 [facility] Comment on above: Performed By: #### L 500.2500 ####[facility] [address] [place], [address] GAP 19 High 5-15 [facility] Comment on above: Performed By: #### L 500.2500 ####[facility] [address] [place], [address] GFR/1.73 sq M.predicted among non-blacks MDRD (S/P/Bld) [Vol rate/Area] 112 mL/min/{1.73_m2} Normal >60 [facility] Comment on above: Result Comment: mL/m in/1.73m2 CKD-EPI Creatinine Equation (2020) Performed By: #### L 500.2500 ####[facility] [address] [place], [address] Glucose [Mass/Vol] 122 mg/dL High 70-99 [facility] Comment on above: Performed By: #### L 500.2500 ####[facility] [address] [place], [address] Potassium [Moles/Vol] 4.0 mmol/L Normal 3.3-5.1 [facility] Comment on above: Result Comment: Hemo lysis present, Results??could be affected.?? Performed By: #### L 500.2500 ####[facility] [address] [place], [address] Sodium [Moles/Vol] 138 mmol/L Normal 133-145 [facility] Comment on above: Performed By: #### L 500.2500 ####[facility] [address] [place], [address] Urea nitrogen [Mass/Vol] 21 mg/dL High 4-19 [facility] Comment on above: Performed By: #### L 500.2500 ####[facility] [address] [place], [address] Bilirubin Test strip Ql (U)O rdered By: Netta Domingo on 11-03-2024 Bilirubin Ql (U) Negative Negative [facility] CBC W/Diff, Automatedon - Hematocrit (Bld) [Volume fraction] 58.5 % High 37-47 [facility] Comment on above: Order Comment: CRITI MONICA VALUE CALLED TO PATRICK MORENO11/03/24 0720 Елена Lewis.RESULTS READ BACK BY SAME. Performed By: #### L 100.0100 ####[facility] [address] [place], [address] Absolute Lymph 2.41 X10 3/uL Normal 0.83-4.51 [facility] Comment on above: Order Comment: CRITI MONICA VALUE CALLED TO PATRICK MORENO11/03/24 0720 Елена Lewis.RESULTS READ BACK BY SAME. Performed By: #### L 100.0100 ####[facility] [address] [place], [address] Absolute Neut 13.7 X10 3/uL High 2.0-7.7 [facility] Comment on above: Order Comment: CRITI MONICA VALUE CALLED TO PATRICK MORENO11/03/24 0720 Елена Lewis.RESULTS READ BACK BY SAME. Performed By: #### L 100.0100 ####[facility] [address] [place], [address] Basophils/100 WBC (Bld) 0.5 % Normal 0-1 [facility] Comment on above: Order Comment: CRITI MONICA VALUE CALLED TO PATRICK HOOVERTLER11/03/2420 Елена Lewis.RESULTS READ BACK BY SAME. Performed By: #### L 100.0100 ####[facility] [address] [place], [address] Eosinophils/100 WBC (Bld) 0.3 % Normal 0-5 [facility] Comment on above: Order Comment: CRITI MONCIA VALUE CALLED TO PATRICK HOOVERTLER11/03/24719 Елена Lewis.RESULTS READ BACK BY SAME. Performed By: #### L 100.0100 ####[facility] [address] [place], [address] Erythrocyte distribution width (RBC) [Ratio] 12.9 % Normal 11.6-14.6 [facility] Comment on above: Order Comment: CRITI MONICA VALUE CALLED TO PATRICK THOMPSONR11/03/24719 Елена Lewis.RESULTS READ BACK BY SAME. Performed By: #### L 100.0100 ####[facility] [address] [place], [address] Hemoglobin (Bld) [Mass/Vol] 19.2 g/dL Invalid Interpretation Code 12.0-15.0 [facility] Comment on above: Order Comment: CRITI MONICA VALUE CALLED TO PATRICK HOOVERTLER11/03/24719 Леена Lewis.RESULTS READ BACK BY SAME. Performed By: #### L 100.0100 ####[facility] [address] [place], [address] IG% 0.500 Normal 0.0-0.9 [facility] Comment on above: Order Comment: CRITI MONICA VALUE CALLED TO PATRICK HOOVERTLER0820 Елена Joshua.RESULTS READ BACK BY SAME. Result Comment: IG% - Immature Granulocytes (promyelocytes, myelocytes andmetamyelocytes) > 1% indicates that a LEFT SHIFT is Present. Performed By: #### L 100.0100 ####[facility] [address] [place], [address] Lymphocytes/100 WBC (Bld) 13.7 % Low 19-41 [facility] Comment on above: Order Comment: CRITI MONICA VALUE CALLED TO PATRICK MORENO08719 Елена Lewis.RESULTS READ BACK BY SAME. Performed By: #### L 100.0100 ####[facility] [address] [place], [address] MCH (RBC) [Entitic mass] 29.9 pg Normal 27.0-32.0 [facility] Comment on above: Order Comment: CRITI MONICA VALUE CALLED TO PATRICK MORENO08719 Елена Lewis.RESULTS READ BACK BY SAME. Performed By: #### L 100.0100 ####[facility] [address] [place], [address] MCHC (RBC) [Mass/Vol] 32.8 g/dL Normal 32-36 [facility] Comment on above: Order Comment: CRITI MONICA VALUE CALLED TO PATRICK MORENO08719 Елена Lewis.RESULTS READ BACK BY SAME. Performed By: #### L 100.0100 ####[facility] [address] [place], [address] MCV (RBC) [Entitic vol] 91.1 fL Normal 81-99 [facility] Comment on above: Order Comment: CRITI MONICA VALUE CALLED TO PATRICK MORENO08719 Елена Lewis.RESULTS READ BACK BY SAME. Performed By: #### L 100.0100 ####[facility] [address] [place], [address] Monocytes/100 WBC (Bld) 7.3 % Normal 0-10 [facility] Comment on above: Order Comment: CRITI MONICA VALUE CALLED TO PATRICK MORENO11/03/24 0720 Еленаmalcolm Lewis.RESULTS READ BACK BY SAME. Performed By: #### L 100.0100 ####[facility] [address] [place], [address] Neutrophils/100 WBC (Bld) 77.7 % High 47-70 [facility] Comment on above: Order Comment: CRITI MONICA VALUE CALLED TO PATRICK MORENO11/03/2420 Елена Joshua.RESULTS READ BACK BY SAME. Performed By: #### L 100.0100 ####[facility] [address] [place], [address] Nucleated RBC (Bld) [#/Vol] 0 10*3/uL Normal 0-5 [facility] Comment on above: Order Comment: CRITI MONICA VALUE CALLED TO PATRICK MORENO11/03/2420 Еленаmalcolm Lewis.RESULTS READ BACK BY SAME. Performed By: #### L 100.0100 ####[facility] [address] [place], [address] Platelet mean volume (Bld) [Entitic vol] 10.3 fL Normal 6.2-12.0 [facility] Comment on above: Order Comment: CRITI MONICA VALUE CALLED TO PATRICK MORENO11/03/2420 Елена Lewis.RESULTS READ BACK BY SAME. Performed By: #### L 100.0100 ####[facility] [address] [place], [address] Platelets (Bld) [#/Vol] 371 10*3/uL Normal 150-450 [facility] Comment on above: Order Comment: CRITI MONICA VALUE CALLED TO PATRICK MORENO11/03/2420 Елена Lewis.RESULTS READ BACK BY SAME. Performed By: #### L 100.0100 ####[facility] [address] [place], [address] RBC (Bld) [#/Vol] 6.42 10*6/uL High 4.2-5.4 [facility] Comment on above: Order Comment: CRITI MONICA VALUE CALLED TO PATRICK HOOVERTLER11/03/24 0720 Елена Lewis.RESULTS READ BACK BY SAME. Performed By: #### L 100.0100 ####[facility] [address] [place], [address] RDW SD 43.6 fl Normal 35.1-43.9 [facility] Comment on above: Order Comment: CRITI MONICA VALUE CALLED TO PATRICK VMHQHGE20/03/25 0720 Елена Lewis.RESULTS READ BACK BY SAME. Performed By: #### L 100.0100 ####[facility] [address] [place], [address] WBC (Bld) [#/Vol] 17.6 10*3/uL High 4.4-11.0 [facility] Comment on above: Order Comment: CRITI MONICA VALUE CALLED TO PATRICK HOOVERTLER11/03/24 0720 Елена Lewis.RESULTS READ BACK BY SAME. Performed By: #### L 100.0100 ####[facility] [address] [place], [address] Carbon dioxide, total [Moles /volume] in Central venous bloodOrdered By: Luis Ravi on 11-03-2024 CO2 [Moles/Vol] 19.6 mmol/L Low 21.0-32.0 [facility] Chloride assayOrdered By: Aurelio Ravi on 11-03-2024 Chloride [Moles/Vol] 99 mmol/L 98-108 [facility] Glomerular filtration rate ( GFR) estimation/1.73 sq m using serum, plasma, or whole bOrdered By: Luis Ravi on 11-03-2024 GFR/1.73 sq M.predicted among non-blacks MDRD (S/P/Bld) [Vol rate/Area] 112 mL/min/{1.73_m2} >60 [facility] Comment on above: mL/min/1.73m2 CKD-EP I Creatinine Equation (2020) Hyaline casts LM.LPF (Urine sed) [#/Area]Ordered By: Netta Domingo on 11-03-2024 Hyaline casts (Urine sed) [#/Area] 0 /[LPF] 0-5 [facility] Ketones Test strip Ql (U)Ord ered By: Netta Domingo on 11-03-2024 Ketones Ql (U) Negative Negative [facility] Microscopic analysis of urin e for red blood cells (RBC)Ordered By: Netta Domingo on 11-03-2024 Microscopic analysis of urine for red blood cells (RBC) 0 SEEN /hpf 0-5 [facility] Mucus LM Ql (Urine sed)Order ed By: Netta Domingo on 11-03-2024 Mucus Ql (Urine sed) 0 SEEN /hpf [facility] Nitrite Test strip Ql (U)Ord ered By: Netta Domingo on 11-03-2024 Nitrite Ql (U) Negative Negative [facility] Potassium measurement (mass/ volume)Ordered By: Luis Ravi on 11-03-2024 Potassium (Unsp spec) [Mass/Vol] 4.0 mmol/L 3.3-5.1 [facility] Comment on above: Hemolysis present, R esults could be affected. Protein Test strip Ql (U)Ord ered By: Netta Domingo on 11-03-2024 Protein Ql (U) 30 mg/dl High Negative [facility] Serum creatinine measurement (mass/volume)Ordered By: Luis Ravi on 11-03-2024 Creatinine [Mass/Vol] 0.69 mg/dL Low 0.70-1.20 [facility] Serum glucose measurement (m ass/volume)Ordered By: Luis Ravi on 11-03-2024 Glucose [Mass/Vol] 122 mg/dL High 70-99 [facility] Serum or plasma calcium sasha urement (mass/volume)Ordered By: Luis Ravi on 11-03-2024 Calcium [Mass/Vol] 10.2 mg/dL 7.6-11.0 [facility] Serum or plasma urea nitroge n measurement (mass/volume)Ordered By: Luis Ravi on 11-03-2024 Urea nitrogen [Mass/Vol] 21 mg/dL High 4-19 [facility] Sodium levelOrdered By: Luis Ravi on 11-03-2024 Sodium [Moles/Vol] 138 mmol/L 133-145 [facility] Squamous epithelial cells de tection in urine sediment by light microscopyOrdered By: Netta Domingo on 11-03-2024 Epithelial cells.squamous LM Ql (Urine sed) 0 SEEN /hpf 5-10 [facility] Urinalysis, Completeon 11-03 CAST,HYALINE 0-5 SEEN Normal 0-5 [facility] Comment on above: Order Comment: CHANDLER TER SPECIMEN Performed By: #### L 400.0001 ####[facility] [address] [place], [address] BACTERIA 0 SEEN Normal None Seen [facility] Comment on above: Order Comment: CHANDLER TER SPECIMEN Performed By: #### L 400.0001 ####[facility] [address] [place], [address] EPI,SQUAMOUS 0 SEEN Normal 5-10 [facility] Comment on above: Order Comment: CHANDLER TER SPECIMEN Performed By: #### L 400.0001 ####[facility] [address] [place], [address] Mucus Ql (Urine sed) 0 SEEN Normal [facility] Comment on above: Order Comment: CHANDLER TER SPECIMEN Performed By: #### L 400.0001 ####[facility] [address] [place], [address] RBC 0 SEEN Normal 0-5 [facility] Comment on above: Order Comment: CHANDLER TER SPECIMEN Performed By: #### L 400.0001 ####[facility] [address] [place], [address] WBC 0 SEEN Normal 0-5 [facility] Comment on above: Order Comment: CHANDLER TER SPECIMEN Performed By: #### L 400.0001 ####[facility] [address] [place], [address] Urine clarityOrdered By: Liz Domingo on 11-03-2024 Clarity (U) Clear Clear [facility] Urine color determinationOrd ered By: Netta Chayo on 11-03-2024 Color (U) Yellow Yellow [facility] Urine glucose detectionOrder ed By: Netta Chayo on 11-03-2024 Glucose Ql (U) Normal mg/dl Normal [facility] Urine leukocyte esterase det ection by dipstickOrdered By: Netta Domingo on 11-03-2024 Leukocyte esterase Test strip Ql (U) Negative Negative [facility] Urine pHOrdered By: Netta cruz on 11-03-2024 pH (U) 5.0 [pH] 5.0 - 8.0 [facility] Urine sediment bacteria coun t by microscopy (number/high power field)Ordered By: Netta Domingo on 11-03-2024 Bacteria LM.HPF (Urine sed) [#/Area] 0 /[HPF] None Seen [facility] Urine specific gravity measu rementOrdered By: Netta Domingo on 11-03-2024 Specific gravity (U) [Rel density] 1.025 1.002-1.03 0 [facility] Urine urobilinogen measureme ntOrdered By: Netta Domingo on 11-03-2024 Urobilinogen Ql (U) Normal mg/dl Normal [facility] White blood cell countOrdere d By: Netta Chayo on 11-03-2024 White blood cell count 0 SEEN /hpf 0-5 [facility] Bilirubin, totalOrdered By: Luis Ravi on 11-02-2024 Bilirubin [Mass/Vol] 0.68 mg/dL 0.00-1.30 [facility] CBC W/Diff, Automatedon 080 Absolute Lymph 2.15 X10 3/uL Normal 0.83-4.51 [facility] Comment on above: Performed By: #### L 501.5200, L501.2300, L100.0100, L500.4050 ####[facility] [address] [place], [place], [id number] Absolute Neut 12.0 X10 3/uL High 2.0-7.7 [facility] Comment on above: Performed By: #### L 501.5200, L501.2300, L100.0100, L500.4050 ####[facility] [address] [place], [address] Basophils/100 WBC (Bld) 0.4 % Normal 0-1 [facility] Comment on above: Performed By: #### L 501.5200, L501.2300, L100.0100, L500.4050 ####[facility] [address] [place], [address] Eosinophils/100 WBC (Bld) 0.3 % Normal 0-5 [facility] Comment on above: Performed By: #### L 501.5200, L501.2300, L100.0100, L500.4050 ####[facility] [address] [place], [address] Erythrocyte distribution width (RBC) [Ratio] 12.3 % Normal 11.6-14.6 [facility] Comment on above: Performed By: #### L 501.5200, L501.2300, L100.0100, L500.4050 ####[facility] [address] [place], [address] Hematocrit (Bld) [Volume fraction] 53.0 % High 37-47 [facility] Comment on above: Performed By: #### L 501.5200, L501.2300, L100.0100, L500.4050 ####[facility] [address] [place], [address] Hemoglobin (Bld) [Mass/Vol] 17.9 g/dL High 12.0-15.0 [facility] Comment on above: Performed By: #### L 501.5200, L501.2300, L100.0100, L500.4050 ####[facility] [address] [place], [address] IG% 0.300 Normal 0.0-0.9 [facility] Comment on above: Result Comment: IG% - Immature Granulocytes (promyelocytes, myelocytes andmetamyelocytes) > 1% indicates that a LEFT SHIFT is Present. Performed By: #### L 501.5200, L501.2300, L100.0100, L500.4050 ####[facility] [address] [place], [address] Lymphocytes/100 WBC (Bld) 14.2 % Low 19-41 [facility] Comment on above: Performed By: #### L 501.5200, L501.2300, L100.0100, L500.4050 ####[facility] [address] [place], [address] MCH (RBC) [Entitic mass] 30.2 pg Normal 27.0-32.0 [facility] Comment on above: Performed By: #### L 501.5200, L501.2300, L100.0100, L500.4050 ####[facility] [address] [place], [address] MCHC (RBC) [Mass/Vol] 33.8 g/dL Normal 32-36 [facility] Comment on above: Performed By: #### L 501.5200, L501.2300, L100.0100, L500.4050 ####[facility] [address] [place], [address] MCV (RBC) [Entitic vol] 89.5 fL Normal 81-99 [facility] Comment on above: Performed By: #### L 501.5200, L501.2300, L100.0100, L500.4050 ####[facility] [address] [place], [address] Monocytes/100 WBC (Bld) 5.7 % Normal 0-10 [facility] Comment on above: Performed By: #### L 501.5200, L501.2300, L100.0100, L500.4050 ####[facility] [address] [place], [address] Neutrophils/100 WBC (Bld) 79.1 % High 47-70 [facility] Comment on above: Performed By: #### L 501.5200, L501.2300, L100.0100, L500.4050 ####[facility] [address] [place], [address] Nucleated RBC (Bld) [#/Vol] 0 10*3/uL Normal 0-5 [facility] Comment on above: Performed By: #### L 501.5200, L501.2300, L100.0100, L500.4050 ####[facility] [address] [place], [address] Platelet mean volume (Bld) [Entitic vol] 10.2 fL Normal 6.2-12.0 [facility] Comment on above: Performed By: #### L 501.5200, L501.2300, L100.0100, L500.4050 ####[facility] [address] [place], [address] Platelets (Bld) [#/Vol] 345 10*3/uL Normal 150-450 [facility] Comment on above: Performed By: #### L 501.5200, L501.2300, L100.0100, L500.4050 ####[facility] [address] [place], [address] RBC (Bld) [#/Vol] 5.92 10*6/uL High 4.2-5.4 [facility] Comment on above: Performed By: #### L 501.5200, L501.2300, L100.0100, L500.4050 ####[facility] [address] [place], [address] RDW SD 40.8 fl Normal 35.1-43.9 [facility] Comment on above: Performed By: #### L 501.5200, L501.2300, L100.0100, L500.4050 ####[facility] [address] [place], [address] WBC (Bld) [#/Vol] 15.1 10*3/uL High 4.4-11.0 [facility] Comment on above: Performed By: #### L 501.5200, L501.2300, L100.0100, L500.4050 ####[facility] [address] [place], [address] Comprehensive Metabolic Prof meon 11-02-2024 Albumin [Mass/Vol] 4.6 g/dL Normal 3.5-5.0 [facility] Comment on above: Performed By: #### L 501.5200, L501.2300, L100.0100, L500.4050 ####[facility] [address] [place], [address] Albumin/Globulin [Mass ratio] 1.4 {ratio} Normal 0.9-2.4 [facility] Comment on above: Performed By: #### L 501.5200, L501.2300, L100.0100, L500.4050 ####[facility] [address] [place], [address] ALK PHOS 103 U/L Normal 35-104 [facility] Comment on above: Performed By: #### L 501.5200, L501.2300, L100.0100, L500.4050 ####[facility] [address] [place], [address] ALT [Catalytic activity/Vol] 15 U/L Normal <=34 [facility] Comment on above: Performed By: #### L 501.5200, L501.2300, L100.0100, L500.4050 ####[facility] [address] [place], [address] AST [Catalytic activity/Vol] 19 U/L Normal <=31 [facility] Comment on above: Performed By: #### L 501.5200, L501.2300, L100.0100, L500.4050 ####[facility] [address] [place], [address] Bilirubin [Mass/Vol] 0.68 mg/dL Normal 0.00-1.30 [facility] Comment on above: Performed By: #### L 501.5200, L501.2300, L100.0100, L500.4050 ####[facility] [address] [place], [address] BUN/CRE 19.1 RATIO Normal 10-20 [facility] Comment on above: Performed By: #### L 501.5200, L501.2300, L100.0100, L500.4050 ####[facility] [address] [place], [address] Calcium [Mass/Vol] 9.8 mg/dL Normal 7.6-11.0 [facility] Comment on above: Performed By: #### L 501.5200, L501.2300, L100.0100, L500.4050 ####[facility] [address] [place], [address] Chloride [Moles/Vol] 104 mmol/L Normal 98-108 [facility] Comment on above: Performed By: #### L 501.5200, L501.2300, L100.0100, L500.4050 ####[facility] [address] [place], [address] CO2 [Moles/Vol] 20.0 mmol/L Low 21.0-32.0 [facility] Comment on above: Performed By: #### L 501.5200, L501.2300, L100.0100, L500.4050 ####[facility] [address] [place], [address] Creatinine [Mass/Vol] 0.56 mg/dL Low 0.70-1.20 [facility] Comment on above: Performed By: #### L 501.5200, L501.2300, L100.0100, L500.4050 ####[facility] [address] [place], [address] ECRCL 130.27 ml/min Normal 50-250 [facility] Comment on above: Performed By: #### L 501.5200, L501.2300, L100.0100, L500.4050 ####[facility] [address] [place], [address] GAP 14 Normal 5-15 [facility] Comment on above: Performed By: #### L 501.5200, L501.2300, L100.0100, L500.4050 ####[facility] [address] [place], [address] GFR/1.73 sq M.predicted among non-blacks MDRD (S/P/Bld) [Vol rate/Area] 118 mL/min/{1.73_m2} Normal >60 [facility] Comment on above: Result Comment: mL/m in/1.73m2 CKD-EPI Creatinine Equation (2020) Performed By: #### L 501.5200, L501.2300, L100.0100, L500.4050 ####[facility] [address] [place], [address] Globulin (S) [Mass/Vol] 3.2 g/dL Normal 2.2-4.2 [facility] Comment on above: Performed By: #### L 501.5200, L501.2300, L100.0100, L500.4050 ####[facility] [address] [place], [address] Glucose [Mass/Vol] 152 mg/dL High 70-99 [facility] Comment on above: Performed By: #### L 501.5200, L501.2300, L100.0100, L500.4050 ####[facility] [address] [place], [address] Potassium [Moles/Vol] 3.7 mmol/L Normal 3.3-5.1 [facility] Comment on above: Performed By: #### L 501.5200, L501.2300, L100.0100, L500.4050 ####[facility] [address] [place], [address] Sodium [Moles/Vol] 138 mmol/L Normal 133-145 [facility] Comment on above: Performed By: #### L 501.5200, L501.2300, L100.0100, L500.4050 ####[facility] [address] [place], [address] T PROT 7.7 g/dL Normal 5.9-8.4 [facility] Comment on above: Performed By: #### L 501.5200, L501.2300, L100.0100, L500.4050 ####[facility] [address] [place], [address] Urea nitrogen [Mass/Vol] 11 mg/dL Normal 4-19 [facility] Comment on above: Performed By: #### L 501.5200, L501.2300, L100.0100, L500.4050 ####[facility] [address] [place], [address] Laboratory - Chemistry and C hemistry - challengeOrdered By: Luis Ravi on 11-02-2024 AST [Catalytic activity/Vol] 19 U/L <32 [facility] Magnesiumon 11-02-2024 Magnesium [Mass/Vol] 2.4 mg/dL High 1.5-2.2 [facility] Comment on above: Performed By: #### L 501.5200, L501.2300, L100.0100, L500.4050 ####[facility] [address] [place], [address] Magnesium measurement (mass/ volume)Ordered By: Luis Ravi on 11-02-2024 Magnesium (Unsp spec) [Mass/Vol] 2.4 mg/dL High 1.5-2.2 [facility] No Panel InformationOrdered By: Luis Ravi on 11-02-2024 19 U/L <32 [facility] Phosphoruson 11-02-2024 Phosphate [Mass/Vol] 3.6 mg/dL Normal 2.7-4.5 [facility] Comment on above: Performed By: #### L 501.5200, L501.2300, L100.0100, L500.4050 ####[facility] [address] [place], [place], [address] Serum globulin measurementOr dered By: Luis aRvi on 11-02-2024 Globulin (S) [Mass/Vol] 3.2 g/dL 2.2-4.2 [facility] Serum or plasma alanine quitnana otransferase (ALT) measurementOrdered By: Luis Ravi on 11-02-2024 ALT [Catalytic activity/Vol] 15 U/L <35 [facility] Serum or plasma albumin sasha urement (mass/volume)Ordered By: Luis Ravi on 11-02-2024 Albumin [Mass/Vol] 4.6 g/dL 3.5-5.0 [facility] Serum or plasma albumin/glob ulin mass ratioOrdered By: Luis Ravi 11-02-2024 Albumin/Globulin [Mass ratio] 1.4 {ratio} 0.9-2.4 [facility] Serum or plasma alkaline malvin sphatase measurementOrdered By: Luis Ravi on 11-02-2024 ALP [Catalytic activity/Vol] 103 U/L 35-104 [facility] Total proteinOrdered By: Luis Ravi on 11-02-2024 Protein [Mass/Vol] 7.7 g/dL 5.9-8.4 [facility] Absolute lymphocyte countOrd ered By: Sen Clarke on 11-01-2024 Lymphocytes Auto (Unsp spec) [#/Vol] 2.74 10*3/uL 0.83-4.51 [facility] Absolute neutrophil countOrd ered By: Sen Clrake on 11-01-2024 Neutrophils (Bld) [#/Vol] 8.9 10*3/uL High 2.0-7.7 [facility] Anion gap in Serum or Plasma Ordered By: Vee Stuart on 11-01-2024 Anion gap [Moles/Vol] 14 mmol/L 5-15 [facility] Automated lymphocyte count a s percentage of total leukocytesOrdered By: Sen Clarke on 11-01-2024 Lymphocytes/100 WBC Auto (Unsp spec) 21.5 % 19-41 [facility] BUN/creatinine ratioOrdered By: Vee Stuart on 11-01-2024 Urea nitrogen/Creatinine [Mass ratio] 13.4 mg/mg 10- [facility] Basic Metabolic Profile (BMP )on 11-01-2024 BUN/CRE 13.4 RATIO Normal - [facility] Comment on above: Order Comment: RED W. PREVIOUS SPECIMEN REJECTED DUE TOHEMOLYSIS. 11/01/24738 Tong Pope Performed By: #### L 500.2500 ####[facility] [address] [place], [place], [address] Calcium [Mass/Vol] 9.2 mg/dL Normal 7.6-11.0 [facility] Comment on above: Order Comment: REDRA W. PREVIOUS SPECIMEN REJECTED DUE TOHEMOLYSIS. 11/01/24738 Tong Pope Performed By: #### L 500.2500 ####[facility] [address] [place], [place], [address] Chloride [Moles/Vol] 106 mmol/L Normal 98-108 [facility] Comment on above: Order Comment: REDRA W. PREVIOUS SPECIMEN REJECTED DUE TOHEMOLYSIS. 11/01/24738 Tong L White. Performed By: #### L 500.2500 ####[facility] [address] [place], [address] CO2 [Moles/Vol] 20.1 mmol/L Low 21.0-32.0 [facility] Comment on above: Order Comment: REDRA W. PREVIOUS SPECIMEN REJECTED DUE TOHEMOLYSIS. 11/01/24738 Tong Mccormick. Performed By: #### L 500.2500 ####[facility] [address] [place], [address] Creatinine [Mass/Vol] 0.59 mg/dL Low 0.70-1.20 [facility] Comment on above: Order Comment: REDRA W. PREVIOUS SPECIMEN REJECTED DUE TOHEMOLYSIS. 11/01/24738 Tong Castañeda Jace. Performed By: #### L 500.2500 ####[facility] [address] [place], [address] ECRCL 127.93 ml/min Normal 50-250 [facility] Comment on above: Order Comment: REDRA W. PREVIOUS SPECIMEN REJECTED DUE TOHEMOLYSIS. 11/01/24738 Tong Castañeda Jace. Performed By: #### L 500.2500 ####[facility] [address] [place], [address] GAP 14 Normal 5-15 [facility] Comment on above: Order Comment: REDRA W. PREVIOUS SPECIMEN REJECTED DUE TOHEMOLYSIS. 11/01/24738 Tong Castañeda Jace. Performed By: #### L 500.2500 ####[facility] [address] [place], [address] GFR/1.73 sq M.predicted among non-blacks MDRD (S/P/Bld) [Vol rate/Area] 116 mL/min/{1.73_m2} Normal >60 [facility] Comment on above: Order Comment: REDRA W. PREVIOUS SPECIMEN REJECTED DUE TOHEMOLYSIS. 11/01/24738 Tong Castañeda Jace. Result Comment: mL/m in/1.73m2 CKD-EPI Creatinine Equation (2020) Performed By: #### L 500.2500 ####[facility] [address] [place], [address] Glucose [Mass/Vol] 140 mg/dL High 70-99 [facility] Comment on above: Order Comment: REDRA W. PREVIOUS SPECIMEN REJECTED DUE TOHEMOLYSIS. 11/01/24738 Tong Mccormick. Performed By: #### L 500.2500 ####[facility] [address] [place], [address] Potassium [Moles/Vol] 3.6 mmol/L Normal 3.3-5.1 [facility] Comment on above: Order Comment: REDRA W. PREVIOUS SPECIMEN REJECTED DUE TOHEMOLYSIS. 11/01/24738 Tong Mccormick. Performed By: #### L 500.2500 ####[facility] [address] [place], [address] Sodium [Moles/Vol] 140 mmol/L Normal 133-145 [facility] Comment on above: Order Comment: REDRA W. PREVIOUS SPECIMEN REJECTED DUE TOHEMOLYSIS. 11/01/24738 Tong Mccormick. Performed By: #### L 500.2500 ####[facility] [address] [place], [address] Urea nitrogen [Mass/Vol] 8 mg/dL Normal -19 [facility] Comment on above: Order Comment: REDRA W. PREVIOUS SPECIMEN REJECTED DUE TOHEMOLYSIS. 11/01/24738 Tong Mccormick. Performed By: #### L 500.2500 ####[facility] [address] [place], [address] BUN Normal -19 [facility] Comment on above: Result Comment: This specimen has been REJECTED due to Laboratory criteria:Hemolyzed.NESS BURNETT has been notified of need of recollection.11/01/24736 Tong Mccormick Performed By: #### L 100.0100, L500.2500 ####[facility] [address] [place], [address] BUN/CRE Normal 10-20 [facility] Comment on above: Result Comment: This specimen has been REJECTED due to Laboratory criteria:Hemolyzed.NESS BURNETT has been notified of need of recollection.11/01/2437 Tong L White Performed By: #### L 100.0100, L500.2500 ####[facility] [address] [place], [address] Calcium Normal 7.6-11.0 [facility] Comment on above: Result Comment: This specimen has been REJECTED due to Laboratory criteria:Hemolyzed.NESS BURNETT has been notified of need of recollection.11/01/24736 Tong L White Performed By: #### L 100.0100, L500.2500 ####[facility] [address] [facility] [address] CL Normal 98-108 [facility] Comment on above: Result Comment: This specimen has been REJECTED due to Laboratory criteria:Hemolyzed.NESS BURNETT has been notified of need of recollection.11/01/24736 Tong L White Performed By: #### L 100.0100, L500.2500 ####[facility] [address] [place], [address] CO2 Normal 21.0-32.0 [facility] Comment on above: Result Comment: This specimen has been REJECTED due to Laboratory criteria:Hemolyzed.NESS BURNETT has been notified of need of recollection.11/01/24736 Tong L White Performed By: #### L 100.0100, L500.2500 ####[facility] [address] [place], [address] CREAT,SERUM Normal 0.70-1.20 [facility] Comment on above: Result Comment: This specimen has been REJECTED due to Laboratory criteria:Hemolyzed.NESS BURNETT has been notified of need of recollection.11/01/24736 Tong L White Performed By: #### L 100.0100, L500.2500 ####[facility] [address] [place], [address] eGFR Normal >60 [facility] Comment on above: Result Comment: This specimen has been REJECTED due to Laboratory criteria:Hemolyzed.NESS BURNETT has been notified of need of recollection.11/01/24736 Tong L White Performed By: #### L 100.0100, L500.2500 ####[facility] [address] [place], [address] GAP Normal 5-15 [facility] Comment on above: Result Comment: This specimen has been REJECTED due to Laboratory criteria:Hemolyzed.NESS BURNETT has been notified of need of recollection.11/01/24736 Tong L White Performed By: #### L 100.0100, L500.2500 ####[facility] [address] [place], [address] GLU Normal 70-99 [facility] Comment on above: Result Comment: This specimen has been REJECTED due to Laboratory criteria:Hemolyzed.NESS BURNETT has been notified of need of recollection.11/01/24736 Tong L White Performed By: #### L 100.0100, L500.2500 ####[facility] [address] [place], [address] Potassium Normal 3.3-5.1 [facility] Comment on above: Result Comment: This specimen has been REJECTED due to Laboratory criteria:Hemolyzed.NESS BURNETT has been notified of need of recollection.11/01/24736 Tong L White Performed By: #### L 100.0100, L500.2500 ####[facility] [address] [place], [address] Basic Metabolic Profile (BMP) Normal 133-145 [facility] Comment on above: Result Comment: This specimen has been REJECTED due to Laboratory criteria:Hemolyzed.NESS BURNETT has been notified of need of recollection.11/01/24 0737 Tong Mccormick Performed By: #### L 100.0100, L500.2500 ####[facility] [address] [place], [address] Basophil percentageOrdered B y: Sen Clarke on 11-01-2024 Basophils/100 WBC (Bld) 0.3 % 0-1 [facility] CBC W/Diff, Automatedon -2024 Absolute Lymph 2.74 X10 3/uL Normal 0.83-4.51 [facility] Comment on above: Performed By: #### L 100.0100, L500.2500 ####[facility] [address] [place], [address] Absolute Neut 8.9 X10 3/uL High 2.0-7.7 [facility] Comment on above: Performed By: #### L 100.0100, L500.2500 ####[facility] [address] [place], [address] Basophils/100 WBC (Bld) 0.3 % Normal 0-1 [facility] Comment on above: Performed By: #### L 100.0100, L500.2500 ####[facility] [address] [place], [address] Eosinophils/100 WBC (Bld) 0.8 % Normal 0-5 [facility] Comment on above: Performed By: #### L 100.0100, L500.2500 ####[facility] [address] [place], [address] Erythrocyte distribution width (RBC) [Ratio] 12.0 % Normal 11.6-14.6 [facility] Comment on above: Performed By: #### L 100.0100, L500.2500 ####[facility] [address] [place], [address] Hematocrit (Bld) [Volume fraction] 47.1 % High 37-47 [facility] Comment on above: Performed By: #### L 100.0100, L500.2500 ####[facility] [address] [place], [address] Hemoglobin (Bld) [Mass/Vol] 16.2 g/dL High 12.0-15.0 [facility] Comment on above: Performed By: #### L 100.0100, L500.2500 ####[facility] [address] [place], [address] IG% 0.400 Normal 0.0-0.9 [facility] Comment on above: Result Comment: IG% - Immature Granulocytes (promyelocytes, myelocytes andmetamyelocytes) > 1% indicates that a LEFT SHIFT is Present. Performed By: #### L 100.0100, L500.2500 ####[facility] [address] [place], [address] Lymphocytes/100 WBC (Bld) 21.5 % Normal 19-41 [facility] Comment on above: Performed By: #### L 100.0100, L500.2500 ####[facility] [address] [place], [address] MCH (RBC) [Entitic mass] 30.5 pg Normal 27.0-32.0 [facility] Comment on above: Performed By: #### L 100.0100, L500.2500 ####[facility] [address] [place], [address] MCHC (RBC) [Mass/Vol] 34.4 g/dL Normal 32-36 [facility] Comment on above: Performed By: #### L 100.0100, L500.2500 ####[facility] [address] [place], [address] MCV (RBC) [Entitic vol] 88.7 fL Normal 81-99 [facility] Comment on above: Performed By: #### L 100.0100, L500.2500 ####[facility] [address] [place], [address] Monocytes/100 WBC (Bld) 7.5 % Normal 0-10 [facility] Comment on above: Performed By: #### L 100.0100, L500.2500 ####[facility] [address] [place], [address] Neutrophils/100 WBC (Bld) 69.5 % Normal 47-70 [facility] Comment on above: Performed By: #### L 100.0100, L500.2500 ####[facility] [address] [place], [address] Nucleated RBC (Bld) [#/Vol] 0 10*3/uL Normal 0-5 [facility] Comment on above: Performed By: #### L 100.0100, L500.2500 ####[facility] [address] [place], [address] Platelet mean volume (Bld) [Entitic vol] 10.4 fL Normal 6.2-12.0 [facility] Comment on above: Performed By: #### L 100.0100, L500.2500 ####[facility] [address] [place], [address] Platelets (Bld) [#/Vol] 290 10*3/uL Normal 150-450 [facility] Comment on above: Performed By: #### L 100.0100, L500.2500 ####[facility] [address] [place], [address] RBC (Bld) [#/Vol] 5.31 10*6/uL Normal 4.2-5.4 [facility] Comment on above: Performed By: #### L 100.0100, L500.2500 ####[facility] [address] [place], [address] RDW SD 39.5 fl Normal 35.1-43.9 [facility] Comment on above: Performed By: #### L 100.0100, L500.2500 ####[facility] [address] [place], [address] WBC (Bld) [#/Vol] 12.7 10*3/uL High 4.4-11.0 [facility] Comment on above: Performed By: #### L 100.0100, L500.2500 ####[facility] [address] [place], [address] Carbon dioxide, total [Moles /volume] in Central venous bloodOrdered By: Vee Stuart on 11-01-2024 CO2 [Moles/Vol] 20.1 mmol/L Low 21.0-32.0 [facility] Chloride assayOrdered By: Stan Stuart on 11-01-2024 Chloride [Moles/Vol] 106 mmol/L 98-108 [facility] Discharge Instructionon 08-0 Discharge Instruction Normal [facility] Eosinophil percentageOrdered By: Sen Clarke on 11-01-2024 Eosinophils/100 WBC (Bld) 0.8 % 0-5 [facility] Erythrocyte distribution wid th ratioOrdered By: Sen Clarke on 11-01-2024 Erythrocyte distribution width (RBC) [Ratio] 12.0 % 11.6-14.6 [facility] Erythrocyte distribution wid th standard deviationOrdered By: Sen Clarke on 11-01-2024 Erythrocyte distribution width (RBC) [Ratio] 39.5 fl 35.1-43.9 [facility] Glomerular filtration rate ( GFR) estimation/1.73 sq m using serum, plasma, or whole bOrdered By: Vee Stuart on 11-01-2024 GFR/1.73 sq M.predicted among non-blacks MDRD (S/P/Bld) [Vol rate/Area] 116 mL/min/{1.73_m2} >60 [facility] Comment on above: mL/min/1.73m2 CKD-EP I Creatinine Equation (2020) Hematocrit Auto (Bld) [Volum e fraction]Ordered By: Sen Clarke on 11-01-2024 Hematocrit (Bld) [Volume fraction] 47.1 % High 37-47 [facility] Hemoglobin measurementOrdere d By: Sen Clarke on 11-01-2024 Hemoglobin (Bld) [Mass/Vol] 16.2 g/dL High 12.0-15.0 [facility] Immature granulocytes/100 WB C Auto (Bld)Ordered By: Sen Clarke on 11-01-2024 Immature granulocytes/100 WBC (Bld) 0.400 % 0.0-0.9 [facility] Comment on above: IG% - Immature Granu locytes (promyelocytes, myelocytes and metamyelocytes) > 1% indicates that a LEFT SHIFT is Present. MCV (mean corpuscular volume ) determinationOrdered By: Sen Clarke on 11-01-2024 MCV (RBC) [Entitic vol] 88.7 fL 81-99 [facility] Mean corpuscular hemoglobin (MCH) determinationOrdered By: Sen Clarke on 11-01-2024 MCH (RBC) [Entitic mass] 30.5 pg 27.0-32.0 [facility] Mean corpuscular hemoglobin concentration (MCHC) determinationOrdered By: Sen Clarke on 11-01-2024 MCHC (RBC) [Mass/Vol] 34.4 g/dL 32-36 [facility] Mean platelet volume determi nationOrdered By: Sen Clarke on 11-01-2024 Platelet mean volume (Bld) [Entitic vol] 10.4 fL 6.2-12.0 [facility] Monocyte percentageOrdered B y: Sen Clarke on 11-01-2024 Monocytes/100 WBC (Bld) 7.5 % 0-10 [facility] Neutrophil percentageOrdered By: Sen Clarke on 11-01-2024 Neutrophils/100 WBC (Bld) 69.5 % 47-70 [facility] Nucleated red blood cell per centageOrdered By: Sen Clarke on 11-01-2024 Nucleated RBC/100 WBC (Bld) [Ratio] 0 % 0-5 [facility] Platelet countOrdered By: mAita Clarke on 11-01-2024 Platelets (Bld) [#/Vol] 290 10*3/uL 150-450 [facility] Potassium measurement (mass/ volume)Ordered By: Vee Stuart on 11-01-2024 Potassium (Unsp spec) [Mass/Vol] 3.6 mmol/L 3.3-5.1 [facility] RBC Auto (Bld) [#/Vol]Ordere d By: Sen Clarke on 11-01-2024 RBC (Bld) [#/Vol] 5.31 10*6/uL 4.2-5.4 [facility] Serum creatinine measurement (mass/volume)Ordered By: Vee Stuart on 11-01-2024 Creatinine [Mass/Vol] 0.59 mg/dL Low 0.70-1.20 [facility] Serum glucose measurement (m ass/volume)Ordered By: Vee Stuart on 11-01-2024 Glucose [Mass/Vol] 140 mg/dL High 70-99 [facility] Serum or plasma calcium ssaha urement (mass/volume)Ordered By: Vee Stuart on 11-01-2024 Calcium [Mass/Vol] 9.2 mg/dL 7.6-11.0 [facility] Serum or plasma urea nitroge n measurement (mass/volume)Ordered By: Vee Stuart on 11-01-2024 Urea nitrogen [Mass/Vol] 8 mg/dL 4-19 [facility] Sodium levelOrdered By: Aron Stuart on 11-01-2024 Sodium [Moles/Vol] 140 mmol/L 133-145 [facility] White blood cell (WBC) count Ordered By: Sen Clarke on 11-01-2024 WBC (Bld) [#/Vol] 12.7 10*3/uL High 4.4-11.0 [facility] Brain without Contraston Brain without Contrast Normal [facility] Calculated very low density lipoprotein (VLDL) cholesterol measurementOrdered By: Nehemiah Medrano on 10-31-2024 Calculated very low density lipoprotein (VLDL) cholesterol measurement 40 mg/dL 5-40 [facility] Echo Transesophageal (SUNDAY)on 10-31-2024 Echo Transesophageal (SUNDAY) Normal [facility] Echocardiogram study reportO rdered By: Law Eduardo on 10-31-2024 Study report [facility] [place] [place] [address] Echo Complete 10/31/24 1012 MR#: [id number] Acct: [id number] Name: ELIN OSHEA Rep #:[id number] : 1985 39 From: Law Roque Attending Dr: Dr. Sen Clarke MD Status: ADM IN Ordering Dr: Nehemiah Haney DO Date: 10/30/24 Location: [facility] Sex: F C Admitted: 10/30/24 Reason For [...] dysfunction. Ordering Physician: Nehemiah Haney Referring Physician: No PCP Performed By: Sandhya Baker and Student 10/31/241658 Date _ Law Eduardo MD CC: Dr. Nehemiah Haney DO; Dr. Sen Clarke MD; No Primary Care Physician ~ Date Dictated: 10/31/24 1012 Date Transcribed: 10/31/241658 Label Paster: Signed [facility] Work Phone: Electrocardiogram reportOrde red By: Law Eduardo on 10-31-2024 EKG study [facility] [address] [place] [address] 12 Lead EKG 10/30/242056 MR#: [id number] Acct: [id number] Name: ELIN OSHEA Rep #:[id number] : 1985 39 From: Law Eduardo MD Attending Dr: Dr. Sen Clarke MD Status: ADM IN Ordering Dr: Domenico Silva DO Date: 0 10/30/24 Location: [facility] Sex: F C Admitted: 10/30/24 [...] ECG Confirmed by JAYCE SCHWAB, LAW ([id number]), editorial specialist VELIA VILLA ([id number]) on 58:43:28 AM Referred By: Confirmed By: LAW EDUARDO MD 10/31/24 0843 Date _ Law Eduardo MD CC: Dr. Domenico Silva DO; Dr. Sen Clarke MD; No Primary Care Physician ~ Signed [facility] Work Phone: Folates,Serum (Folic Acid)on 10-31-2024 FOLATES,SERUM 7.69 ng/mL Normal 4.60-34.80 [facility] Comment on above: Result Comment: Hemo lysis, Results will be affected, Requires Recollection. Performed By: #### L 505.5000, L501.9985, L501.9520, L506.0200 ####[facility] [address] [place], [address] Hemoglobin A1con 10-31-2024 HbA1c (Bld) [Mass fraction] 5.4 % Normal <=5.6 [facility] Comment on above: Result Comment: Norm al < 5.7 % Prediabetic 5.7 - 6.4 % Diabetic >or= 6.5 % Please note range changes. Performed By: #### L 505.5000, L501.9985, L501.9520, L506.0200 ####[facility] [address] [place], [place], [address] LDL calc ser/plasOrdered By: Nehemiah Medrano on 10-31-2024 Cholesterol in LDL [Mass/Vol] 108 mg/dL [facility] Comment on above: Opkrbjbgkx=492-458 m g/dL & Higher Ouwh=451 mg/dL or greaterFriedwald Equation for LDL-C Lipid Profileon 10-31-2024 CHOL:HDL 3.43 Normal [facility] Comment on above: Performed By: #### L 500.4100 ####[facility] [address] [place], [place], [id number] Cholesterol [Mass/Vol] 209 mg/dL High <=200 [facility] Comment on above: Result Comment: Chol esterol level, Desirable <200 mg/dLBorderline high cholesterol 200-239 mg/dLHigh cholesterol >=240 mg/dLRecommendations of the NCEP Adult Treatment Panel for thefollowing risk-cutoff thresholds for the [place] Americanpopulation. Performed By: #### L 500.4100 ####[facility] [address] [place], [address] Cholesterol in HDL [Mass/Vol] 61 mg/dL Normal [facility] Comment on above: Result Comment: [place] onal Cholesterol Education Program (NCEP) guidelines:<40 mg/dL: Low HDL-cholesterol (major risk factor for CHD)>= 60 mg/dL: High HDL-cholesterol (negative risk factor forCHD)HDL-cholesterol is affected by a number of factors, e.g.smoking, exercise, hormones, sex and age. Performed By: #### L 500.4100 ####[facility] [address] [place], [address] Cholesterol in LDL [Mass/Vol] 108 mg/dL Normal [facility] Comment on above: Result Comment: Bord eufilc=557-462 mg/dL Higher Fsti=082 mg/dL or greaterFriedwald Equation for LDL-C Performed By: #### L 500.4100 ####[facility] [address] [place], [address] Cholesterol in VLDL [Mass/Vol] 40 mg/dL Normal 5-40 [facility] Comment on above: Performed By: #### L 500.4100 ####[facility] [address] [place], [address] Triglyceride [Mass/Vol] 201 mg/dL High [facility] Comment on above: Result Comment: The drugs N-Acetylcysteine and Metamizole may falselydepress this assay.Normal range: <150 mg/dLBorderline High: 150-199 mg/dLHigh: 200-499 mg/dLVery High: >500 mg/dL Performed By: #### L 500.4100 ####[facility] [address] [place], [address] MR/CON.PCM.NEon 10-31-2024 MR/CON.PCM.NE Normal [facility] Magnetic resonance imaging r eportOrdered By: Richi Andre on 10-31-2024 Study report [facility] [address] [place] [address] Brain without Contrast MR#: [id number] Acct: [id number] Name: ELIN OSHEA Rep #: [id number] : 1985 F 39 From: Yoko Andre MD PCP: Care Physician,No Primary Status: ADM IN Study:Brain without Contrast Date of Exam: 10/31/24 Exam# [id number] Ordering Dr: Nehemiah Lorenz DO EXAM: BRAIN [...] ofdictation. Reading Location: [facility]OB CC: Dr. Nehemiah de Mitchell, DO; No Primary Care Physician ~ Label Paster: Signed [facility] No Panel InformationOrdered By: Nehemiah Medrano on 10-31-2024 JAK2 Mutation Comment . [facility] Comment on above: Technical Component performed at [facility] RTPProfessional Component performed by:Lisbet Price, PhD, FACMGDirector, Molecular OncologyLabco [id number], [address] [facility] [phone] test was developed and its performance characteristicsdetermined by [employer]. It has not been cleared orapproved by the Food and Drug Administration.Performed at: [facility] [id number] [facility], [place], [place] [id number] Director: Neil [facility], Phone: [phone] at: - [facility] [id number], [place], [place] [id number] Director: Neil Campos [facility], Phone: [phone] JAK2 V617F Reviewed By Comment . [facility] Comment on above: JAK2 is a cytoplasmi c tyrosine kinase with a connell role insignal transduction from multiple hematopoietic growthfactor receptors. 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 The ID [employer] Absolute Quantitation softwarewill compare the patient specimen valuse to the standardcurves and generate percent values for wild type andmutant type. In vitro studies have indicated that thisassay has an analytical sensitivity of 1%.References:Solo GRAHAM, Roger LM, Macho PJ, et al. Acquiredmutation of the tyrosine kinase JAK2 in humanmyeloproliferative disorders. Lancet. 2005 Jun 19;365(3439):5334-3672. Tong Bolden, Geraldo V, Pito Curry JP. Aunique clonal JAK2 mutation leading to constitutivesignaling causes polycythaemia vera. Nature. 2005 Jul 29;523(0414):8127-9870.Maryann R, Aly F, Joseph , et al. A ciot-oi-dwvnlumt mutation of JAK2 in myeloproliferative disorders.N Engl J Med. 2005 Jul 29; 352(71):7513-4576. Comment . [facility] Screening total cholesterol/ high density lipoprotein (HDL) cholesterol ratioOrdered By: Nehemiah Medrano on 10-31-2024 Cholesterol.total/Chol esterol in HDL [Mass ratio] 3.43 {ratio} [facility] Serum or plasma cholesterol in HDL measurement (mass/volume)Ordered By: Nehemiah Medrano on 10-31-2024 Cholesterol in HDL [Mass/Vol] 61 mg/dL >40 [facility] Comment on above: National Cholesterol Education Program (NCEP) guidelines:<40 mg/dL: Low HDL-cholesterol (major risk factor for CHD)>= 60 mg/dL: High HDL-cholesterol (negative risk factor for CHD)HDL-cholesterol is affected by a number of factors, e.g. smoking, exercise, hormones, sex and age. Serum or plasma cholesterol measurement (mass/volume)Ordered By: Nehemiah Medrano on 10-31-2024 Cholesterol [Mass/Vol] 209 mg/dL High <201 [facility] Comment on above: Cholesterol level, D esirable <200 mg/dLBorderline high cholesterol 200-239 mg/dLHigh cholesterol >=240 mg/dLRecommendations of the NCEP Adult Treatment Panel for the following risk-cutoff thresholds for the [place] population. Thyroid Stim Hormone (TSH)on 10-31-2024 TSH 3.230 uIU/mL Normal 0.300-4.20 0 [facility] Comment on above: Performed By: #### L 505.5000, L501.9936, L501.9520, L506.0200 ####[facility] [address] [place], [address] Triglycerides measurementOrd ered By: Nehemiah Medrano on 10-31-2024 Triglyceride [Mass/Vol] 201 mg/dL High <199 [facility] Comment on above: The drugs N-Acetylcy steine and Metamizole may falsely depress this assay. Normal range: <150 mg/dLBorderline High: 150-199 mg/dLHigh: 200-499 mg/dLVery High: >500 mg/dL Troponin T HS 4 HRon 025 Trop T High Sen Normal <=14 [facility] Comment on above: Result Comment: CANC ELLATION ORDER Performed By: #### L 499.0043 ####[facility] [address] [place], [place], [id number] Urine Drug Screen (VISTA)on 10-31-2024 AMPHETAMINES Positive Normal <1000 ng/mL [facility] Comment on above: Result Comment: If c onfirmation testing is needed, a separate order will berequired to send out testing to the reference laboratory. Performed By: #### L 505.5000, L501.9985, L501.9520, L506.0200 ####[facility] [address] [facility] [address] BARBITIURATES Negative Normal < 200 ng/mL [facility] Comment on above: Performed By: #### L 505.5000, L501.9985, L501.9520, L506.0200 ####[facility] [address] [place], [address] BENZODIAZIPINE Negative Normal < 200 ng/mL [facility] Comment on above: Performed By: #### L 505.5000, L501.9985, L501.9520, L506.0200 ####[facility] [address] [place], [address] BUP Ur Drug Scr Negative Normal < 200 ng/mL [facility] Comment on above: Performed By: #### L 505.5000, L501.9985, L501.9520, L506.0200 ####[facility] [address] [place], [address] COCAINE Negative Normal < 300 ng/mL [facility] Comment on above: Performed By: #### L 505.5000, L501.9985, L501.9520, L506.0200 ####[facility] [address] [place], [address] Fentanyl Negative Normal [facility] Comment on above: Performed By: #### L 505.5000, L501.9985, L501.9520, L506.0200 ####[facility] [address] [place] [id number] METHADONE Negative Normal < 300 ng/mL [facility] Comment on above: Performed By: #### L 505.5000, L501.9985, L501.9520, L506.0200 ####[facility] [address] [place], [address] OPIATES Negative Normal < 300 ng/mL [facility] Comment on above: Performed By: #### L 505.5000, L501.9985, L501.9520, L506.0200 ####[facility] [address] [place], [address] OXYCODONE Negative Normal < 100 ng/mL [facility] Comment on above: Performed By: #### L 505.5000, L501.9985, L501.9520, L506.0200 ####[facility] [address] [facility] [address] PCP Negative Normal < 25 ng/mL [facility] Comment on above: Performed By: #### L 505.5000, L501.9985, L501.9520, L506.0200 ####[facility] [address] [place] [id number] THC Positive Normal < 50 ng/mL [facility] Comment on above: Result Comment: If c onfirmation testing is needed, a separate order will berequired to send out testing to the reference laboratory. Performed By: #### L 505.5000, L501.9985, L501.9520, L506.0200 ####[facility] [address] [place], [address] Vitamin B12on 10-31-2024 Cobalamin (Vitamin B12) [Mass/Vol] 484 pg/mL Normal 180-914 [facility] Comment on above: Performed By: #### L 503.0106 ####[facility] [address] [place], [place], [address] Vitamin B12 ser/plasOrdered By: Nehemiah Medrano on 10-31-2024 Cobalamin (Vitamin B12) [Mass/Vol] 484 pg/mL 180-914 [facility] 12 Lead EKGon 10-30-2024 12 Lead EKG Normal [facility] Absolute lymphocyte countOrd ered By: Domenico Silva on 10-30-2024 Lymphocytes Auto (Unsp spec) [#/Vol] 1.57 10*3/uL 0.83-4.51 [facility] Absolute neutrophil countOrd ered By: Domenico Silva on 10-30-2024 Neutrophils (Bld) [#/Vol] 8.3 10*3/uL High 2.0-7.7 [facility] Activated partial thrombopla stin time (aPTT) in platelet poor plasma by coagulation aOrdered By: Domenico Silva on 10-30-2024 aPTT Coag (PPP) [Time] 25.8 s 24.1-36.2 [facility] Amphetamine detection with 1 000 ng/mL as cutoffOrdered By: Nehemiah Medrano on 10-30-2024 Amphetamines Screen method >1000 ng/mL Ql (U) Positive <1000 ng/mL [facility] Comment on above: If confirmation test ing is needed, a separate order will be required to send out testing to the reference laboratory. Amphetamines Screen method >1000 ng/mL Ql (U) Negative < 200 ng/mL [facility] Anion gap in Serum or Plasma Ordered By: Domenico Silva on 10-30-2024 Anion gap [Moles/Vol] 16 mmol/L High 5-15 [facility] Automated lymphocyte count a s percentage of total leukocytesOrdered By: Domenico Silva on 10-30-2024 Lymphocytes/100 WBC Auto (Unsp spec) 15.0 % Low 19-41 [facility] BUN/creatinine ratioOrdered By: Domenico Silva on 10-30-2024 Urea nitrogen/Creatinine [Mass ratio] 16.5 mg/mg 10- [facility] Basic Metabolic Profile (BMP )on 10-30-2024 BUN/CRE 16.5 RATIO Normal - [facility] Comment on above: Performed By: #### L 300.4310, L100.0100, L300.3900, L500.2500, L501.4021 ####[facility] [address] [place], [address] Calcium [Mass/Vol] 10.5 mg/dL Normal 7.6-11.0 [facility] Comment on above: Performed By: #### L 300.4310, L100.0100, L300.3900, L500.2500, L501.4021 ####[facility] [address] [place], [address] Chloride [Moles/Vol] 100 mmol/L Normal 98-108 [facility] Comment on above: Performed By: #### L 300.4310, L100.0100, L300.3900, L500.2500, L501.4021 ####[facility] [address] [place], [address] CO2 [Moles/Vol] 24.6 mmol/L Normal 21.0-32.0 [facility] Comment on above: Performed By: #### L 300.4310, L100.0100, L300.3900, L500.2500, L501.4021 ####[facility] [address] [place], [address] Creatinine [Mass/Vol] 0.80 mg/dL Normal 0.70-1.20 [facility] Comment on above: Performed By: #### L 300.4310, L100.0100, L300.3900, L500.2500, L501.4021 ####[facility] [address] [place], [address] ECRCL 93.24 ml/min Normal 50-250 [facility] Comment on above: Performed By: #### L 300.4310, L100.0100, L300.3900, L500.2500, L501.4021 ####[facility] [address] [place], [address] GAP 16 High 5-15 [facility] Comment on above: Performed By: #### L 300.4310, L100.0100, L300.3900, L500.2500, L501.4021 ####[facility] [address] [place], [address] GFR/1.73 sq M.predicted among non-blacks MDRD (S/P/Bld) [Vol rate/Area] 95 mL/min/{1.73_m2} Normal >60 [facility] Comment on above: Result Comment: mL/m in/1.73m2 CKD-EPI Creatinine Equation (2020) Performed By: #### L 300.4310, L100.0100, L300.3900, L500.2500, L501.4021 ####[facility] [address] [place], [address] Glucose [Mass/Vol] 92 mg/dL Normal 70-99 [facility] Comment on above: Performed By: #### L 300.4310, L100.0100, L300.3900, L500.2500, L501.4021 ####[facility] [address] [place], [address] Potassium [Moles/Vol] 3.4 mmol/L Normal 3.3-5.1 [facility] Comment on above: Performed By: #### L 300.4310, L100.0100, L300.3900, L500.2500, L501.4021 ####[facility] [address] [place], [address] Sodium [Moles/Vol] 141 mmol/L Normal 133-145 [facility] Comment on above: Performed By: #### L 300.4310, L100.0100, L300.3900, L500.2500, L501.4021 ####[facility] [address] [place], [address] Urea nitrogen [Mass/Vol] 13 mg/dL Normal 4-19 [facility] Comment on above: Performed By: #### L 300.4310, L100.0100, L300.3900, L500.2500, L501.4021 ####[facility] [address] [place], [address] Basophil percentageOrdered B y: Domenico Silva on 10-30-2024 Basophils/100 WBC (Bld) 0.5 % 0-1 [facility] CBC W/Diff, Automatedon 10-03 Absolute Lymph 1.57 X10 3/uL Normal 0.83-4.51 [facility] Comment on above: Performed By: #### L 300.4310, L100.0100, L300.3900, L500.2500, L501.4021 ####[facility] [address] [place], [address] Absolute Neut 8.3 X10 3/uL High 2.0-7.7 [facility] Comment on above: Performed By: #### L 300.4310, L100.0100, L300.3900, L500.2500, L501.4021 ####[facility] [address] [place], [address] Basophils/100 WBC (Bld) 0.5 % Normal 0-1 [facility] Comment on above: Performed By: #### L 300.4310, L100.0100, L300.3900, L500.2500, L501.4021 ####[facility] [address] [place], [address] Eosinophils/100 WBC (Bld) 0.4 % Normal 0-5 [facility] Comment on above: Performed By: #### L 300.4310, L100.0100, L300.3900, L500.2500, L501.4021 ####[facility] [address] [place], [address] Erythrocyte distribution width (RBC) [Ratio] 12.1 % Normal 11.6-14.6 [facility] Comment on above: Performed By: #### L 300.4310, L100.0100, L300.3900, L500.2500, L501.4021 ####[facility] [address] [place], [address] Hematocrit (Bld) [Volume fraction] 54.8 % High 37-47 [facility] Comment on above: Performed By: #### L 300.4310, L100.0100, L300.3900, L500.2500, L501.4021 ####[facility] [address] [place], [address] IG% 0.600 Normal 0.0-0.9 [facility] Comment on above: Result Comment: IG% - Immature Granulocytes (promyelocytes, myelocytes andmetamyelocytes) > 1% indicates that a LEFT SHIFT is Present. Performed By: #### L 300.4310, L100.0100, L300.3900, L500.2500, L501.4021 ####[facility] [address] [place], [address] Lymphocytes/100 WBC (Bld) 15.0 % Low 19-41 [facility] Comment on above: Performed By: #### L 300.4310, L100.0100, L300.3900, L500.2500, L501.4021 ####[facility] [address] [place], [address] MCH (RBC) [Entitic mass] 30.4 pg Normal 27.0-32.0 [facility] Comment on above: Performed By: #### L 300.4310, L100.0100, L300.3900, L500.2500, L501.4021 ####[facility] [address] [place], [address] MCHC (RBC) [Mass/Vol] 33.8 g/dL Normal 32-36 [facility] Comment on above: Performed By: #### L 300.4310, L100.0100, L300.3900, L500.2500, L501.4021 ####[facility] [address] [place], [address] MCV (RBC) [Entitic vol] 90.1 fL Normal 81-99 [facility] Comment on above: Performed By: #### L 300.4310, L100.0100, L300.3900, L500.2500, L501.4021 ####[facility] [address] [place], [address] Monocytes/100 WBC (Bld) 4.2 % Normal 0-10 [facility] Comment on above: Performed By: #### L 300.4310, L100.0100, L300.3900, L500.2500, L501.4021 ####[facility] [address] [place], [address] Neutrophils/100 WBC (Bld) 79.3 % High 47-70 [facility] Comment on above: Performed By: #### L 300.4310, L100.0100, L300.3900, L500.2500, L501.4021 ####[facility] [address] [place], [address] Nucleated RBC (Bld) [#/Vol] 0 10*3/uL Normal 0-5 [facility] Comment on above: Performed By: #### L 300.4310, L100.0100, L300.3900, L500.2500, L501.4021 ####[facility] [address] [place], [address] Platelet mean volume (Bld) [Entitic vol] 10.0 fL Normal 6.2-12.0 [facility] Comment on above: Performed By: #### L 300.4310, L100.0100, L300.3900, L500.2500, L501.4021 ####[facility] [address] [place], [address] Platelets (Bld) [#/Vol] 311 10*3/uL Normal 150-450 [facility] Comment on above: Performed By: #### L 300.4310, L100.0100, L300.3900, L500.2500, L501.4021 ####[facility] [address] [place], [address] RBC (Bld) [#/Vol] 6.08 10*6/uL High 4.2-5.4 [facility] Comment on above: Performed By: #### L 300.4310, L100.0100, L300.3900, L500.2500, L501.4021 ####[facility] [address] [place], [address] RDW SD 39.9 fl Normal 35.1-43.9 [facility] Comment on above: Performed By: #### L 300.4310, L100.0100, L300.3900, L500.2500, L501.4021 ####[facility] [address] [place], [address] WBC (Bld) [#/Vol] 10.5 10*3/uL Normal 4.4-11.0 [facility] Comment on above: Performed By: #### L 300.4310, L100.0100, L300.3900, L500.2500, L501.4021 ####[facility] [address] [place], [address] Carbon dioxide, total [Moles /volume] in Central venous bloodOrdered By: Domenico Silva on 10-30-2024 CO2 [Moles/Vol] 24.6 mmol/L 21.0-32.0 [facility] Chest 1 Viewon 10-30-2024 Chest 1 View Normal [facility] Chloride assayOrdered By: Galen Silva on 10-30-2024 Chloride [Moles/Vol] 100 mmol/L 98-108 [facility] Echo Completeon 10-30-2024 Echo Complete Normal [facility] Emergency Department Summary on 10-30-2024 Emergency Department Summary Normal [facility] Eosinophil percentageOrdered By: Domenico Silva on 10-30-2024 Eosinophils/100 WBC (Bld) 0.4 % 0-5 [facility] Erythrocyte distribution wid th ratioOrdered By: Domenico Silva on 10-30-2024 Erythrocyte distribution width (RBC) [Ratio] 12.1 % 11.6-14.6 [facility] Erythrocyte distribution wid th standard deviationOrdered By: Domenico Silva on 10-30-2024 Erythrocyte distribution width (RBC) [Ratio] 39.9 fl 35.1-43.9 [facility] Folate [Moles/volume] in Ser um or PlasmaOrdered By: Nehemiah Medrano on 10-30-2024 Folate [Moles/Vol] 7.69 ng/mL 4.60-34.80 [facility] Comment on above: Hemolysis, Results w ill be affected, Requires Recollection. Glomerular filtration rate ( GFR) estimation/1.73 sq m using serum, plasma, or whole bOrdered By: Domenico Silva on 10-30-2024 GFR/1.73 sq M.predicted among non-blacks MDRD (S/P/Bld) [Vol rate/Area] 95 mL/min/{1.73_m2} >60 [facility] Comment on above: mL/min/1.73m2 CKD-EP I Creatinine Equation (2020) H AND P Exam - [facility] 10-30-2024 H&P Exam - Hospitalist Normal [facility] Hematocrit Auto (Bld) [Volum e fraction]Ordered By: Domenico Silva on 10-30-2024 Hematocrit (Bld) [Volume fraction] 54.8 % High 37-47 [facility] Hemoglobin A1c percentageOrd ered By: Nehemiah Medrano on 10-30-2024 HbA1c (Bld) [Mass fraction] 5.4 % <5.7 [facility] Comment on above: Normal < 5.7 % Predi abetic 5.7 - 6.4 % Diabetic >or= 6.5 % Please note range changes. Hemoglobin measurementOrdere d By: Domenico Silva on 10-30-2024 Hemoglobin (Bld) [Mass/Vol] 18.5 g/dL Invalid Interpretation Code 12.0-15.0 [facility] Comment on above: CRITICAL VALUE PETERSON D TO [id number]/30/252058 Laquita Shell.RESULTS READ BACK BY SAME. Result Comment: CRIT ICAL VALUE CALLED TO [id number]/30/[id number] Laquita Shell.RESULTS READ BACK BY SAME. Performed By: #### L 300.4310, L100.0100, L300.3900, L500.2500, L501.4021 ####[facility] [address] [place], [address] Immature granulocytes/100 WB C Auto (Bld)Ordered By: Domenico Silva on 10-30-2024 Immature granulocytes/100 WBC (Bld) 0.600 % 0.0-0.9 [facility] Comment on above: IG% - Immature Granu locytes (promyelocytes, myelocytes and metamyelocytes) > 1% indicates that a LEFT SHIFT is Present. International normalized rat io (INR) calculationOrdered By: Domenico Silva on 10-30-2024 INR Coag (Bld) [Relative time] 0.9 {INR} [facility] L501.4021on 10-30-2024 Trop T High Sen < 6 Normal <=14 [facility] Comment on above: Performed By: #### L 300.4310, L100.0100, L300.3900, L500.2500, L501.4021 ####[facility] [address] [place], [place], [id number] MCV (mean corpuscular volume ) determinationOrdered By: Domenico Silva on 10-30-2024 MCV (RBC) [Entitic vol] 90.1 fL 81-99 [facility] Mean corpuscular hemoglobin (MCH) determinationOrdered By: Domenico Silva on 10-30-2024 MCH (RBC) [Entitic mass] 30.4 pg 27.0-32.0 [facility] Mean corpuscular hemoglobin concentration (MCHC) determinationOrdered By: Domenico Silva on 10-30-2024 MCHC (RBC) [Mass/Vol] 33.8 g/dL 32-36 [facility] Mean platelet volume determi nationOrdered By: Domenico Silva on 10-30-2024 Platelet mean volume (Bld) [Entitic vol] 10.0 fL 6.2-12.0 [facility] Monocyte percentageOrdered B y: Domenico Silva on 10-30-2024 Monocytes/100 WBC (Bld) 4.2 % 0-10 [facility] Neutrophil percentageOrdered By: Domenico Silva on 10-30-2024 Neutrophils/100 WBC (Bld) 79.3 % High 47-70 [facility] No Panel InformationOrdered By: Nehemiah Medrano on 10-30-2024 Urine Buprenorphine Qualitative Negative < 200 ng/mL [facility] Urine Oxycodone Screen Negative < 100 ng/mL [facility] Negative < 200 ng/mL [facility] Nucleated red blood cell per centageOrdered By: Domenico Silva on 10-30-2024 Nucleated RBC/100 WBC (Bld) [Ratio] 0 % 0-5 [facility] Partial Thromboplast Timeon 10-30-2024 aPTT Coag (Bld) [Time] 25.8 s Normal 24.1-36.2 [facility] Comment on above: Performed By: #### L 300.4310, L100.0100, L300.3900, L500.2500, L501.4021 ####[facility] [address] [place], [address] Platelet countOrdered By: Galen Silva on 10-30-2024 Platelets (Bld) [#/Vol] 311 10*3/uL 150-450 [facility] Potassium measurement (mass/ volume)Ordered By: Domenico Silva on 10-30-2024 Potassium (Unsp spec) [Mass/Vol] 3.4 mmol/L 3.3-5.1 [facility] Prothrombin Time w/INRon INR Coag (PPP) [Relative time] 0.9 {INR} Normal [facility] Comment on above: Performed By: #### L 300.4310, L100.0100, L300.3900, L500.2500, L501.4021 ####[facility] [address] [place], [address] PT Coag (PPP) [Time] 11.8 s Normal 11.7-14.9 [facility] Comment on above: Performed By: #### L 300.4310, L100.0100, L300.3900, L500.2500, L501.4021 ####[facility] [address] [place], [address] Prothrombin timeOrdered By: Domenico Silva on 10-30-2024 PT Coag (PPP) [Time] 11.8 s 11.7-14.9 [facility] Quantitative urine opiates m easurementOrdered By: Nehemiah Medrano on 10-30-2024 Opiates Ql (U) Negative < 300 ng/mL [facility] RBC Auto (Bld) [#/Vol]Ordere d By: Domenico Silva on 07-30-2025 RBC (Bld) [#/Vol] 6.08 10*6/uL High 4.2-5.4 [facility] STROKE Brain/Head without Co nton 10-30-2024 STROKE Brain/Head without Cont Normal [facility] STROKE CTA Head AND Neck W/C onon 10-30-2024 STROKE CTA Head AND Neck W/Con Normal [facility] Screening urine fentanyl silva surementOrdered By: Nehemiah Medrano on 10-30-2024 fentaNYL Screen Ql (U) Negative [facility] Serum creatinine measurement (mass/volume)Ordered By: Domenico Silva on 10-30-2024 Creatinine [Mass/Vol] 0.80 mg/dL 0.70-1.20 [facility] Serum glucose measurement (m ass/volume)Ordered By: Domenico Silva on 10-30-2024 Glucose [Mass/Vol] 92 mg/dL 70-99 [facility] Serum or plasma calcium sasha urement (mass/volume)Ordered By: Domenico Silva on 10-30-2024 Calcium [Mass/Vol] 10.5 mg/dL 7.6-11.0 [facility] Serum or plasma urea nitroge n measurement (mass/volume)Ordered By: Domenico Silva on 10-30-2024 Urea nitrogen [Mass/Vol] 13 mg/dL 4-19 [facility] Sodium levelOrdered By: Domenico Silva on 10-30-2024 Sodium [Moles/Vol] 141 mmol/L 133-145 [facility] TSH DL <= 0.005 mIU/L QnOrde red By: Nehemiah Medrano on 10-30-2024 TSH Qn 3.230 uIU/mL 0.300-4.20 0 [facility] Troponin T HS 2 HRon 025 Trop T High Sen < 6 Normal <=14 [facility] Comment on above: Performed By: #### L 499.0042 ####[facility] [address] [place], [address] Troponin T.cardiac [Mass/vol ume] in Serum or Plasma by High sensitivity methodOrdered By: Domenico Silva on 10-30-2024 Troponin T.cardiac High sensitivity method [Mass/Vol] < 6 ng/L <14 [facility] Troponin T.cardiac High sensitivity method [Mass/Vol] < 6 ng/L <14 [facility] Urine benzodiazepine levelOr dered By: Nehemiah Medrano on 10-30-2024 Benzodiazepines Ql (U) Negative < 200 ng/mL [facility] Urine cocaine levelOrdered B y: Nehemiah Medrano on 10-30-2024 Cocaine Ql (U) Negative < 300 ng/mL [facility] Urine tdban-8-lytolruogsvwsr abinol (THC) measurementOrdered By: Nehemiah Medrano on 10-30-2024 Cannabinoids Screen Ql (U) Positive < 50 ng/mL [facility] Comment on above: If confirmation test ing is needed, a separate order will be required to send out testing to the reference laboratory. Urine phencyclidine (PCP) de tectionOrdered By: Nehemiah Medrano on 10-30-2024 Phencyclidine Ql (U) Negative < 25 ng/mL [facility] White blood cell (WBC) count Ordered By: Domenico Silva on 10-30-2024 WBC (Bld) [#/Vol] 10.5 10*3/uL 4.4-11.0 [facility] Foot min 3 Viewson 5 Foot min 3 Views Normal [facility] Urgent Care Visit Reporton 0 08-19-2024 Urgent Care Visit Report Normal [facility] CNOVon 11-27-2023 CNOV Office Visit (UCWSTR ) ELIN OSHEA ([id number]) 1985 F Date Time Provider Department 11/27/23 11:30 AM VONNIE DICKERSON [facility] During your visit today, we recorded the following information about you: Blood pressure 190/110 Vonnie Dickerson APRN.CLOSING AGENT 11/27/2023 11:37 AM Signed Patient triaged at [...] Date Reviewed: 05/15/2020 Reviewed by: Corinne Nichole ([facility]) - Fully Assessed Reason for Visit: Shortness [...] Status:Closed by VONNIE DICKERSON on 11/27/23 Normal [facility] Vital Signs Date Time Vital Sign Value Performing Clinician Nakiai ollie 12-30-2024 14:59-0400 Body height 162.56 cm No Primary Care Physician [facility] 12-30-2024 14:59-0400 Body mass index (BMI) [Ratio] 32.7 kg/m2 No Primary Care Physician [facility] 12-30-2024 14:59-0400 Body temperature 98.7 [degF] No Primary Care Physician [facility] 12-30-2024 14:59-0400 Body weight 86.4 kg No Primary Care Physician [facility] 12-30-2024 14:59-0400 Diastolic blood pressure 99 mm[Hg] No Primary Care Physician [facility] 12-30-2024 14:59-0400 Heart rate 72 /min No Primary Care Physician [facility] 12-30-2024 14:59-0400 Respiratory rate 16 /min No Primary Care Physician [facility] 12-30-2024 14:59-0400 SaO2% (BldA) [Mass fraction] 97 % No Primary Care Physician [facility] 12-30-2024 14:59-0400 Systolic blood pressure 149 mm[Hg] No Primary Care Physician [facility] 12-26-2024 14:49-0400 Body temperature 98.6 [degF] No Primary Care Physician [facility] 12-26-2024 14:49-0400 Diastolic blood pressure 104 mm[Hg] No Primary Care Physician [facility] 12-26-2024 14:49-0400 Heart rate 75 /min No Primary Care Physician [facility] 12-26-2024 14:49-0400 Respiratory rate 19 /min No Primary Care Physician [facility] 12-26-2024 14:49-0400 SaO2% (BldA) [Mass fraction] 97 % No Primary Care Physician [facility] 12-26-2024 14:49-0400 Systolic blood pressure 137 mm[Hg] No Primary Care Physician [facility] 12-26-2024 12:08-0400 Body mass index (BMI) [Ratio] 32.7 kg/m2 No Primary Care Physician [facility] 12-26-2024 12:08-0400 Body weight 86.4 kg No Primary Care Physician [facility] 12-11-2024 09:48-0400 Body height 162.56 cm No Primary Care Physician [facility] 12-11-2024 09:48-0400 Body mass index (BMI) [Ratio] 31 kg/m2 No Primary Care Physician [facility] 12-11-2024 09:48-0400 Body temperature 98 [degF] No Primary Care Physician [facility] 12-11-2024 09:48-0400 Body weight 82.1 kg No Primary Care Physician [facility] 12-11-2024 09:48-0400 Diastolic blood pressure 84 mm[Hg] No Primary Care Physician [facility] 12-11-2024 09:48-0400 Heart rate 77 /min No Primary Care Physician [facility] 12-11-2024 09:48-0400 Respiratory rate 15 /min No Primary Care Physician [facility] 12-11-2024 09:48-0400 SaO2% (BldA) [Mass fraction] 99 % No Primary Care Physician [facility] 12-11-2024 09:48-0400 Systolic blood pressure 132 mm[Hg] No Primary Care Physician [facility] 12-05-2024 10:12-0400 Body mass index (BMI) [Ratio] 29.7 kg/m2 No Primary Care Physician [facility] 12-05-2024 06:00-0400 Body temperature 98.1 [degF] No Primary Care Physician [facility] 12-05-2024 06:00-0400 Diastolic blood pressure 78 mm[Hg] No Primary Care Physician [facility] 12-05-2024 06:00-0400 Heart rate 62 /min No Primary Care Physician [facility] 12-05-2024 06:00-0400 Respiratory rate 16 /min No Primary Care Physician [facility] 12-05-2024 06:00-0400 SaO2% (BldA) [Mass fraction] 97 % No Primary Care Physician [facility] 12-05-2024 06:00-0400 Systolic blood pressure 119 mm[Hg] No Primary Care Physician [facility] 11-29-2024 16:37-0400 Body weight 79 kg No Primary Care Physician [facility] 11-25-2024 11:26-0400 Body height 162.56 cm No Primary Care Physician [facility] 11-10-2024 13:42-0400 Diastolic blood pressure 95 mm[Hg] No Primary Care Physician [facility] 11-10-2024 13:42-0400 Heart rate 88 /min No Primary Care Physician [facility] 11-10-2024 13:42-0400 Respiratory rate 17 /min No Primary Care Physician [facility] 11-10-2024 13:42-0400 SaO2% (BldA) [Mass fraction] 96 % No Primary Care Physician [facility] 11-10-2024 13:42-0400 Systolic blood pressure 110 mm[Hg] No Primary Care Physician [facility] 11-10-2024 10:25-0400 Body temperature 97.9 [degF] No Primary Care Physician [facility] 11-05-2024 13:39-0400 Body height 162.56 cm No Primary Care Physician [facility] 11-05-2024 13:39-0400 Body weight 76.83 kg No Primary Care Physician [facility] 11-04-2024 12:25-0400 Body mass index (BMI) [Ratio] 29 kg/m2 No Primary Care Physician [facility] 11-04-2024 11:20-0400 Heart rate 76 /min No Primary Care Physician [facility] 11-04-2024 11:08-0400 Body temperature 97.8 [degF] No Primary Care Physician [facility] 11-04-2024 11:08-0400 Diastolic blood pressure 84 mm[Hg] No Primary Care Physician [facility] 11-04-2024 11:08-0400 Respiratory rate 16 /min No Primary Care Physician [facility] 11-04-2024 11:08-0400 SaO2% (BldA) [Mass fraction] 94 % No Primary Care Physician [facility] 11-04-2024 11:08-0400 Systolic blood pressure 172 mm[Hg] No Primary Care Physician [facility] 11-04-2024 04:16-0400 Body mass index (BMI) [Ratio] 28 kg/m2 No Primary Care Physician [facility] 11-02-2024 13:33-0400 Body height 162.56 cm No Primary Care Physician [facility] 11-02-2024 13:33-0400 Body weight 74 kg No Primary Care Physician [facility] 11-01-2024 14:30-0400 Body temperature 97.2 [degF] No Primary Care Physician [facility] 11-01-2024 14:30-0400 Diastolic blood pressure 103 mm[Hg] No Primary Care Physician [facility] 11-01-2024 14:30-0400 Heart rate 77 /min No Primary Care Physician [facility] 11-01-2024 14:30-0400 Respiratory rate 16 /min No Primary Care Physician [facility] 11-01-2024 14:30-0400 SaO2% (BldA) [Mass fraction] 99 % No Primary Care Physician [facility] 11-01-2024 14:30-0400 Systolic blood pressure 183 mm[Hg] No Primary Care Physician [facility] 11-01-2024 13:00-0400 Body mass index (BMI) [Ratio] 30 kg/m2 No Primary Care Physician [facility] 10-31-2024 10:21-0400 Body height 162.56 cm No Primary Care Physician [facility] 10-31-2024 10:21-0400 Body weight 79.4 kg No Primary Care Physician [facility] 10-31-2024 00:00-0400 Diastolic blood pressure 99 mm[Hg] No Primary Care Physician [facility] 10-31-2024 00:00-0400 Heart rate 69 /min No Primary Care Physician [facility] 10-31-2024 00:00-0400 Respiratory rate 16 /min No Primary Care Physician [facility] 10-31-2024 00:00-0400 SaO2% (BldA) [Mass fraction] 100 % No Primary Care Physician [facility] 10-31-2024 00:00-0400 Systolic blood pressure 166 mm[Hg] No Primary Care Physician [facility] 10-30-2024 23:14-0400 Body temperature 98 [degF] No Primary Care Physician [facility] 10-30-2024 20:50-0400 Body height 162.56 cm No Primary Care Physician [facility] 10-30-2024 20:50-0400 Body mass index (BMI) [Ratio] 29.3 kg/m2 No Primary Care Physician [facility] 10-30-2024 20:50-0400 Body weight 77.5 kg No Primary Care Physician [facility] 08-19-2024 11:28-0400 Body height 162.56 cm No Primary Care Physician [facility] 08-19-2024 11:28-0400 Body mass index (BMI) [Ratio] 29.9 kg/m2 No Primary Care Physician [facility] 08-19-2024 11:28-0400 Body temperature 98.2 [degF] No Primary Care Physician [facility] 08-19-2024 11:28-0400 Body weight 79.03 kg No Primary Care Physician [facility] 08-19-2024 11:28-0400 Diastolic blood pressure 86 mm[Hg] No Primary Care Physician [facility] 08-19-2024 11:28-0400 Heart rate 94 /min No Primary Care Physician [facility] 08-19-2024 11:28-0400 SaO2% (BldA) [Mass fraction] 97 % No Primary Care Physician [facility] 08-19-2024 11:28-0400 Systolic blood pressure 122 mm[Hg] No Primary Care Physician [facility] 11-27-2023 11:34-0400 Diastolic blood pressure 110 mm[Hg] Vonnie Dickerson APRN.CLOSING AGENT Work Phone: [facility] 11-27-2023 11:34-0400 Systolic blood pressure 190 mm[Hg] Vonnie Dickerson APRN.CLOSING AGENT Work Phone: [facility] Encounters Encounter Date Encounter Type Care Provider Facility Start: 02-11-2025 ambulatory Torri Muñoz ty:[facility] Start: 01-23-2025 [facility] Torri german MANAGER DOCUMENT-C -Physical Therapy Work Phone: Start: 01-16-2025 Christelleomari Nicolas MANAGER DOCUMENT-C -Ou tpatient Breast Imaging Work Phone: Start: 01-16-2025 End: 01-16-2025 ambulatory Christelle Nicolas Facility:[facility] Start: 12-31-2024 End: 12-31-2024 ambulatory No Primary Care Physician -Laboratory Specimen Start: 12-31-2024 End: 12-31-2024 Christelle Nicolas MANAGER DOCUMENT-C -Laboratory Specimen Work Phone: Start: 12-30-2024 End: 12-30-2024 Dr. Shaun Del Angel MD -[facility] Work Phone: Start: 12-30-2024 End: 12-31-2024 ambulatory No Primary Care Physician -[facility] Start: 12-26-2024 End: 12-26-2024 Dr. Mary Corbin DO -Emergency Departme nt Work Phone: Start: 12-26-2024 End: 12-26-2024 Emergency department patient visit No Primary Care Physician -Emergency Department Start: 12-24-2024 End: 12-24-2024 ambulatory No Primary Care Physician -Home Health Lab Start: 12-24-2024 End: 12-24-2024 [facility] Torri Benny MANAGER DOCUMENT-C -Home Health Lab Start: 12-24-2024 End: 12-24-2024 ambulatory [facility] Facility:[facility] Start: 12-11-2024 End: 12-11-2024 Liudmila Prado MANAGER DOCUMENT-C -[facility] Work Phone: Start: 12-11-2024 End: 12-11-2024 ambulatory No Primary Care Physician [facility] Start: 12-07-2024 ambulatory No Primary Car e Physician Facility:[facility] Start: 12-05-2024 Dr. Netta Domingo DO -[facility] Work Phone: Start: 12-03-2024 Dr. [...] Phone: Start: 11-22-2024 Dr. Netta Domingo DO -[facility] Work Phone: Start: 11-21-2024 Dr. Netta Domingo DO [facility] In[facility]hab Work Phone: Start: 11-19-2024 Netta Chandler Domingo DO -[facility] Work Phone: Start: 11-18-2024 Netta Vee joao Domingo DO -[facility] Work Phone: Start: 11-14-2024 Netta Chandler Domingo DO -[facility] Work Phone: Start: 11-12-2024 Netta Vee joao Domingo DO -[facility] Work Phone: Start: 11-11-2024 Sandra Francisco NP-C -[facility] Work Phone: Start: 11-10-2024 ambulatory My Chayo [place] Start: 11-10-2024 End: 12-05-2024 Evaluation and management of inpatient No Primary Care Physician -Rehab Unit Start: 11-10-2024 End: 12-05-2024 Dr. Netta Domingo DO -Rehab Unit Work Phone: Start: 11-10-2024 Dr. Vee Stuart MD [facility] Work Phone: Start: 11-10-2024 ambulatory Vee Stuart Facility:[facility] Start: 11-10-2024 Non-patient / Non-visit Dr. Nehemiah stanley MD [facility] Work Phone: Start: 11-10-2024 Dr. Nehemiah Luna [facility] Inpatient Physicians Work Phone: Start: 11-09-2024 Non-patient / [facility] Work Phone: Start: 11-09-2024 Dr. Nehemiah [facility] Work Phone: Start: 11-08-2024 Non-patient / Non-visit Dr. Nehemiah stanley MD [facility] Work Phone: Start: 11-08-2024 Dr. Nehemiah Hammond MD -[facility] Inpatient Physicians Work Phone: Start: 11-07-2024 Non-patient / Non-visit Dr. Nehemiah stanley [facility] Inpatient Physicians Work Phone: Start: 11-07-2024 Dr. Nehemiah Hammond MD -[facility] Work Phone: Start: 11-06-2024 Non-patient / Non-visit Dr. Maldonado [facility] Start: 11-06-2024 Dr. Law Eduardo MD [facility] Start: 11-06-2024 Non-patient / Non-visit Dr. Ximena Mccormick MD [facility] Work Phone: Start: 11-06-2024 Dr. Ximena Mccormick MD [facility] Inpatient Physicians Work Phone: Start: 11-05-2024 Non-patient / Non-visit Dr. Nehemiah stanley [facility] Inpatient Physicians Work Phone: Start: 11-05-2024 Dr. Nehemiah Hammond MD [facility] Inpatient Physicians Work Phone: Start: 11-04-2024 Non-patient / Non-visit Dr. Shaun cody MD [facility] Start: 11-04-2024 Dr. Shaun Del Angel MD [facility] Start: 11-04-2024 ambulatory Nehemiah Hammond [facility] Start: 11-04-2024 End: 11-10-2024 Evaluation and management of inpatient Dr. Nehemiah Hammond MD -[facility] Work Phone: Start: 11-04-2024 End: 11-10-2024 Dr. Nehemiah Hammond MD -[facility] Work Phone: Start: 11-04-2024 Non-patient / Non-visit Dr. Maldonado [facility] Start: 11-04-2024 Dr. Law Eduardo [facility] Start: 11-04-2024 Non-patient / Non-visit Dr. Bakari Domingo [facility] Inpatient Rehab Work Phone: Start: 11-04-2024 Dr. Netta Domingo [facility] Inpatient Rehab Work Phone: Start: 11-01-2024 ambulatory Lori Hay Facility:[facility] Start: 11-01-2024 End: 11-04-2024 Evaluation and management of inpatient Dr. Netta Domingo DO Rehab Unit Work Phone: Start: 11-01-2024 Non-patient / Non-visit Dr. Vee hansen MD [facility] Inpatient Physicians Work Phone: Start: 11-01-2024 End: 11-04-2024 [facility] Start: 11-01-2024 ambulatory [facility] Facility:[facility] Start: 11-01-2024 Non-patient / Non-visit Dr. Foy Of [facility] Start: 11-01-2024 Dr. Law Eduardo [facility] Start: 10-31-2024 ambulatory [facility] Start: 10-31-2024 Non-patient / Non-visit Dr. Maldonado [facility] Start: 10-31-2024 Dr. Law Eduardo [facility] Start: 10-30-2024 ambulatory [facility] Facility:[facility] Start: 10-30-2024 End: 11-01-2024 Evaluation and management of inpatient Dr. Nehemiah Haney DO -[facility] Unit Work Phone: Start: 10-30-2024 End: 11-01-2024 Dr. Vee Stuart MD -[facility] Work Phone: Start: 08-19-2024 End: 08-19-2024 Patient encounter procedure Yefri Sotelo [facility] -[facility] Work Phone: Start: 08-19-2024 End: 08-19-2024 Yefri PIERCE -[facility] Work Phone: Start: 08-19-2024 End: 08-19-2024 ambulatory No Primary Care Physician [facility] Work Phone: Start: 08-19-2024 End: 08-19-2024 ambulatory Yefri PIERCE Facility:[facility] Start: 11-27-2023 End: 11-27-2023 Patient encounter procedure Vonnie Dickerson APRN.CLOSING AGENT Work Phone: [facility] Comment on above: Chest pressure (Prim michael Dx) Start: 11-27-2023 End: 11-27-2023 ambulatory Facility:[facility] Procedures Date Procedure Procedure Detail Performing Clinician Start: 01-16-2025 Screening mammography N o Primary Care Physician Start: 12-31-2024 Liquid based cervica l cytology [...] Physician Start: 12-26-2024 Urine culture No Primar y Care Physician Start: 12-26-2024 Blood count smear [...] Care Physician Start: 12-24-2024 Neutrophil count No [facility] Care Physician Start: 12-24-2024 Nucleated red blood [...] Care Physician Start: 11-18-2024 Neutrophil count No [facility] Care Physician Start: 11-18-2024 Nucleated red blood [...] Care Physician Start: 11-10-2024 Neutrophil count No [facility] Care Physician Start: 11-10-2024 Nucleated red blood cell count procedure No Primary Care Physician Start: 11-10-2024 Platelet mean volume determination No Primary Care Physician Start: 11-08-2024 Serum inorganic phos phate measurement No Primary Care Physician Start: 11-05-2024 Computed tomography of abdomen and pelvis with contrast No Primary Care Physician Start: 11-05-2024 CT [facility] Start: 11-04-2024 Targeted analysis fo r gene mutation No Primary Care Physician Start: 11-04-2024 Blood count smear mc rscp w/mnl difrntl wbc count No Primary Care Physician Start: 11-04-2024 Mean corpuscular hem oglobin concentration determination No Primary Care Physician Start: 11-04-2024 Neutrophil count No [facility] Care Physician Start: 11-04-2024 Nucleated red blood [...] Care Physician Start: 11-01-[address] [facility] Physician Start: 11-01-2024 Nucleated red blood cell count procedure No Primary Care Physician Start: 11-01-2024 Platelet mean volume determination No Primary Care Physician Start: 10-31-2024 Assay of triglycerides No Primary Care Physician Start: 10-31-2024 Targeted analysis fo r gene mutation No Primary Care Physician Comment on above: Result: NEGATIVE for the JAK2 [id number] mutation.Interpretation: The G to T nucleotide change encoding [id number] mutation was not detected. This result does [...] Physician Start: 10-30-2024 Plain chest X-ray No [facility] Care Physician Start: 10-30-2024 CT angiography of [...] Start: 12-31-2024 Liquid based cervical cytology screening [facility] Start: 12-31-2024 Procedure [facility] Start: 12-31-2024 -Laboratory Specimen Work Phone: Start: 12-30-2024 Erythropoietin (EPO) [Units/volume] in Serum or Plasma [facility] Start: 12-30-2024 End: 12-30-2024 -[facility] Work Phone: Start: 12-26-2024 [facility] Start: 12-05-2024 Patient discharge [facility] Start: 12-03-2024 [facility] Start: 11-28-2024 Referral to service [facility] Start: 11-14-2024 [facility] Start: 11-14-2024 [facility] Start: 11-11-2024 [facility] Start: 11-11-2024 Provision of activity privileges [facility] Start: 11-10-2024 [facility] Start: 11-10-2024 Application of intermittent pneumatic compression device [facility] Start: 11-10-2024 Recommendation to continue with treatment [facility] Start: 11-10-2024 Admission procedure [facility] Start: 11-10-2024 Measuring intake and output [facility] Start: 11-10-2024 Referral for physical therapy [facility] Start: 11-10-2024 Referral to service [facility] Start: 11-10-2024 Urinary bladder training [facility] Start: 11-10-2024 Vital signs measurements [facility] Start: 11-10-2024 [facility] Start: 11-10-2024 Referral to occupational therapist [facility] Start: 11-10-2024 Patient discharge [facility] Start: 11-10-[address] [facility] Start: 11-09-2024 [facility] Start: 11-07-2024 Phlebotomy [facility] Start: 11-05-2024 Phlebotomy [facility] Start: 11-04-2024 [facility] Start: 11-04-2024 [facility] Start: 11-04-[address] [facility] Start: 11-04-2024 Patient education [facility] Start: 11-04-2024 Provision of activity privileges [facility] Start: 11-04-2024 Pulse taking [facility] Start: 11-04-2024 Taking patient vital signs [facility] Start: 11-04-2024 Wound care [facility] Start: 11-04-2024 [facility] Start: 11-04-2024 Following clinical pathway protocol [facility] Start: 11-04-2024 Referral to employment office clerk [facility] Start: 11-04-2024 Ambulation without limitation [facility] Start: 11-04-2024 Assessment of risk of venous thromboembolism [facility] Start: 11-04-2024 Insertion of catheter into peripheral vein [facility] Start: 11-04-2024 Measuring intake and output [facility] Start: 11-04-2024 Providing care according to standard [facility] Start: 11-04-2024 Referral for physical therapy [facility] Start: 11-04-2024 Referral to occupational therapist [facility] Start: 11-04-2024 Referral to service [facility] Start: 11-04-2024 [facility] Start: 11-04-2024 Consultation [facility] Start: 11-04-2024 Admission procedure [facility] Start: 11-04-2024 End: 11-04-2024 [facility] Start: 11-04-2024 Catheterization of left heart [facility] Start: 11-04-2024 Patient discharge [facility] Start: 11-04-2024 Catheterization of vein [facility] Start: 11-04-[address] [facility] Start: 11-04-2024 Preoperative care [facility] Start: 11-04-2024 Consultation [facility] Start: 11-04-2024 Referral to employment office clerk [facility] Start: 11-04-2024 [facility] Start: 11-04-2024 Consultation [facility] Start: 11-04-2024 [facility] Start: 11-03-2024 End: 11-04-2024 [facility] Start: 11-01-2024 End: 11-02-2024 Patient referral to [facility] Start: 11-01-2024 [facility] Start: 11-01-2024 [facility] Start: 11-01-2024 Following clinical pathway protocol [facility] Start: 11-01-2024 Recommendation to continue with treatment [facility] Start: 11-01-2024 Referral for physical therapy [facility] Start: 11-01-2024 Referral to service [facility] Start: 11-01-2024 Urinary bladder training [facility] Start: 11-01-2024 Admission procedure [facility] Start: 11-01-2024 Measuring intake and output [facility] Start: 11-01-2024 Vital signs measurements [facility] Start: 11-01-2024 [facility] Start: 11-01-2024 Referral to occupational therapist [facility] Start: 11-01-2024 Patient discharge [facility] Start: 11-01-[address] [facility] Start: 10-31-2024 [facility] Start: 10-31-2024 Application of intermittent pneumatic compression device [facility] Start: 10-31-2024 Following clinical pathway protocol [facility] Start: 10-31-2024 Aspiration precautions [facility] Start: 10-31-2024 Cardiac monitoring [facility] Start: 10-31-2024 Catheterization of vein [facility] Start: 10-31-2024 Consultation [facility] Start: 10-31-2024 Elevation of head of bed [facility] Start: 10-31-2024 Exercises [facility] Start: 10-31-[address] [facility] Start: 10-31-2024 Oxygen therapy [facility] Start: 10-31-2024 End: 10-31-2024 Patient referral to dietitian [facility] Start: 10-31-2024 Referral for physical therapy [facility] Start: 10-31-2024 Referral to occupational therapist [facility] Start: 10-31-2024 Referral to service [facility] Start: 10-31-[address] [facility] Start: 10-31-2024 Telemedicine consultation with patient [facility] Start: 10-31-2024 Tobacco use cessation education [facility] Start: 10-31-2024 End: 10-31-2024 [facility] Start: 10-31-2024 Vital signs measurements [facility] Start: 10-30-2024 MRI of brain without contrast Brain without Contrast [facility] Start: 10-30-2024 Hospital admission, emergency, from emergency room, medical nature [facility] Start: 10-30-2024 Admission procedure [facility] Start: 10-30-2024 Thyroid stimulating hormone measurement [facility] Start: 10-30-2024 Oxygen therapy [facility] Start: 10-30-2024 [facility] Start: 12-03-2023 Influenza vaccination Influenza Vaccine (#1) [facility] Start: 2023 Screening for malignant neoplasm of breast Mammogram Screening [facility] Start: 12-02-2022 Covid-19 Vaccine ( season) Covid-19 Vaccine ( season) [facility] Start: 07-23-2021 Screening for malignant neoplasm of cervix Cervical Cancer Screening [facility] Start: 04-09-2020 Annual PCP Team Chronic Disease Visit Annual PCP Team Chronic Disease Visit [facility] Start: 10-10-2002 Hepatitis B Vaccine (1 of 3 - 19+ 3-dose series) Hepatitis B Vaccine (1 of 3 - 19+ 3-dose series) [facility] Start: 10-10-2002 Urine microalbumin profile DTaP,Tdap,Td Vaccine (1 - Tdap) [facility] Start: 10-10-2001 Anxiety Screening Anxiety Screening [facility] Start: 10-10-2001 BP Controlled (<130/80) BP Controlled (<130/80) [facility] Start: 10-10-2001 Depression Screening Depression Screening [facility] Start: 10-10-2001 Hepatitis C screening Hepatitis C Screening [facility] Start: 10-10-2001 HIV screening HIV Screening [facility] Amphetamines [Presen ce] in Urine by Screen method >1000 ng/mL [facility] Anion gap in Serum o r Plasma [facility] Benzodiazepine measu rement, urine [facility] BUN/Creatinine ratio [facility] Calcium [Mass/volume ] in Serum or Plasma [facility] Carbon dioxide, tota l [Moles/volume] in Central venous blood [facility] Cardiac event recording [facility] Cocaine measurement, urine [facility] Creatinine [Mass/vol ume] in Serum or Plasma [facility] Cytology report of C ervical or vaginal smear or scraping Cyto stain.thin prep [facility] Erythropoietin (EPO) [Units/volume] in Serum or Plasma [facility] fentaNYL [Presence] in Urine by Screen method [facility] Folate [Moles/volume ] in Serum or Plasma [facility] Glucose [Mass/volume ] in Serum or Plasma [facility] JAK2 gene p.Lpt494Bv e [Presence] in Blood or Tissue by Molecular genetics method [facility] JAK2 gene p.Enk750Wq e [Presence] in Blood or Tissue by Molecular genetics method [facility] Measurement of renal function [facility] Methadone measuremen t, urine [facility] Path report.final Dx Spec [facility] Patient Education [facility] Work Phone: Phencyclidine [Prese nce] in Urine [facility] Potassium measurement [facility] Serum chloride measurement [facility] Sodium measurement [facility] Troponin T.cardiac [Mass/volume] in Serum or Plasma by High sensitivity method [facility] Troponin T.cardiac [Mass/volume] in Serum or Plasma by High sensitivity method [facility] Urea nitrogen [Mass/ volume] in Serum or Plasma [facility] Urine cannabinoid measurement [facility] Urine opiate measurement [facility] Immunizations Immunization Date Immunization Notes Care Provider Fa cility 08-13-2020 Covid (Pfizer) No Primary Ca re Physician [facility] 07-23-2020 Covid (Pfizer) No Primary Ca re Physician [facility] Payers Date Payer Category Payer Self-pay [id number] 2023 Unknown [id number] 2013 Medicaid [id number] [id number] 2013 Unknown [id number] Unknown [id number] 2.16.8 40.1.823432.3.579.2.462 Unknown [id number] 2.16.8 40.1.736772.3.579.2.462 Unknown [id number] 2.16.8 40.1.364855.3.579.2.462 Unknown [id number] 2.16.8 40.1.687309.3.579.2.462 Unknown [id number] 2.16.8 40.1.120752.3.579.2.462 Unknown [id number] 2.16.8 40.1.004997.3.579.2.462 Unknown [id number] 2.16.8 40.1.594283.3.579.2.462 Unknown [id number] 2.16.8 40.1.806544.3.579.2.462 Unknown [id number] 2.16.8 40.1.482766.3.579.2.462 Unknown [id number] 2.16.8 40.1.466737.3.579.2.462 Unknown [id number] 2.16.8 40.1.273742.3.579.2.462 Unknown [id number] 2.16.8 40.1.456463.3.579.2.462 Unknown [id number] 2.16.8 40.1.971703.3.579.2.462 Unknown [id number] 2.16.8 40.1.593812.3.579.2.462 Unknown [id number] 2.16.8 40.1.430522.3.579.2.462 Unknown [id number] 2.16.8 40.1.382264.3.579.2.462 Unknown [id number] 2.16.8 40.1.919743.3.579.2.462 Unknown [id number] 2.16.8 40.1.605049.3.579.2.462 Unknown [id number] 2.16.8 40.1.779275.3.579.2.462 Unknown [id number] 2.16.8 40.1.702959.3.579.2.462 Unknown [id number] 2.16.8 40.1.151955.3.579.2.462 Unknown [id number] 2.16.8 40.1.908428.3.579.2.462 Unknown [id number] 2.16.8 40.1.249596.3.579.2.462 Unknown [id number] 2.16.8 40.1.945251.3.579.2.462 Unknown [id number] 2.16.8 40.1.750731.3.579.2.462 Unknown [id number] 2.16.8 40.1.712452.3.579.2.462 Unknown [id number] 2.16.8 40.1.119947.3.579.2.462 Unknown [id number] 2.16.8 40.1.304154.3.579.2.462 Unknown [id number] 2.16.8 40.1.594360.3.579.2.462 Unknown [id number] 2.16.8 40.1.283254.3.579.2.462 Unknown [id number] 2.16.8 40.1.445369.3.579.2.462 Unknown [id number] 2.16.8 40.1.114503.3.579.2.462 Unknown [id number] 2.16.8 40.1.245556.3.579.2.462 Unknown [id number] 2.16.8 40.1.417677.3.579.2.462 Unknown [id number] 2.16.8 40.1.297013.3.579.2.462 Unknown [id number] 2.16.8 40.1.536364.3.579.2.462 Unknown [id number] 2.16.8 40.1.986250.3.579.2.462 Unknown [id number] 2.16.8 40.1.020143.3.579.2.462 Unknown [id number] 2.16.8 40.1.451239.3.579.2.462 Unknown [id number] 2.16.8 40.1.695147.3.579.2.462 Unknown [id number] 2.16.8 40.1.987991.3.579.2.462 Unknown [id number] 2.16.8 40.1.555082.3.579.2.462 Unknown [id number] 2.16.8 40.1.878889.3.579.2.462 Unknown [id number] 2.16.8 40.1.490018.3.579.2.462 Unknown [id number] 2.16.8 40.1.436926.3.579.2.462 Unknown [id number] 2.16.8 40.1.007813.3.579.2.462 Social History Date Type Detail Facility Start: 02-18-2019 End: 12-30-2024 Tobacco smoking status NHIS Ex-smoker [facility] Start: 01-02-2011 End: 01-03-2016 History of tobacco use Current smoker [facility] Start: 01-02-2011 End: 01-03-2016 History of tobacco use Cigarette Smoker [facility] Start: 02-18-2019 End: 03-11-2020 Cigarettes smoked current (pack per day) - Reported 0.5 [facility] Start: 02-18-2019 Tobacco use and exposure Smokeless tobacco non-user [facility] Start: 05-15-2020 Alcoholic beverage intake Current drinker of alcohol (finding) [facility] Start: 03-11-2020 End: 05-15-2020 Tobacco use panel [facility] National Score (1-10 0), lower number is lower risk Not on file [facility] Start: 1985 Sex assigned at Not on file [facility] Start: 11-27-2023 Tobacco smoking stat us [facility] Never smoked tobacco (finding) [facility] Start: 1985 Sex Assigned At Female [facility] Start: 10-30-2024 End: 12-05-2024 Tobacco smoking status IDIS Smokes tobacco daily (finding) [facility] Start: 11-01-2024 Tobacco Use Tobacco Use [facility] Goals Date Patient Goal Desired Activity /State Functional Status Date Assessment Result Facility 12-05-2024 Functional status Standby Assist ;With Assist of 1 [facility] Work Phone: 12-03-2024 Functional status Ambulates;Bathroom Priv ilege [facility] Work Phone: 12-02-2024 Functional status Fair [facility] Work Phone: 11-10-2024 Functional status Bedside Commode [facility] Work Phone: 11-04-2024 Functional status With Assist of 1 [facility] Work Phone: 11-04-2024 Functional status Well [facility] Work Phone: 11-02-2024 Functional status Bedpan [facility] Work Phone: 11-01-2024 Functional status Stand and pivot [facility] Work Phone: Mental Status Date Assessment Result Facility 12-26-2024 Cognitive function Awake [facility] Work Phone: 12-05-2024 Cognitive function Voice/Name [facility] Work Phone: 11-10-2024 Cognitive function Voice/Name [facility] Work Phone: 11-04-2024 Cognitive function Voice/Name [facility] Work Phone: 11-01-2024 Cognitive function Voice/Name [facility] Work Phone: 10-30-2024 Cognitive function Awake;Alert;A ppropriate;Fol lows Commands [facility] Work Phone: Clinical Notes 11-27-2023 to 12-26-2024 Note Date & Type Note Facility 12-26-2024 Radiology Diagnostic study note [facility] 12-26-2024 Discharge summary Note Date/Time December 26, 2024 2:49pm [facility] Medical Records Department [address] [place] [address] Emergency Department Summary 12/26/24 MR#: [id number] Acct: [id number] Name: ELIN OSHEA Rep #:[id number] : 1985 39 From: Mary Poon PCP: ARSENIO Calloway, MANAGER DOCUMENT-C Statu s:REG ER Location: ED HPI History [...] other complaints or concerns at this time [facility] Medical History Central neuropathic pain Vaping nicotine [...] 1 current occupational status: employed 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 Smoking Status: Former smoker alcohol intake: current [...] No tremor of the head appreciated. Normal fddyuq-xk-zesu. No neglect or gaze deviation. NIH equals [...] % (Auto) 63.3 Lymph % (Auto) 25.0 Early % (Auto) 9.2 Eos % (Auto) 1.2 [...] Clarity Clear Urine pH 6.5 Ur Specific Solomon 1.010 Urine Protein Negative Urine Glucose (UA) [...] abnormalities. Chronic right frontal infarction. Reading Location: [facility] Rhythm Strip Rhythm Strip: Sinus Rhythm Rate: [...] Referrals: Liudmila Prado NP-C [Med Staff - [facility] Practice Prof, Neurology] Torri Zapata NP-C [Primary Care Provider, Family Practice] Activity Restrictions/Additional [...] return to the emergency room. Print Language: Zimbabwean Disposition Disposition: Home, Self Care What to do if you have Problems For any increased pain, shortness of breath, bleeding, nausea or vomiting, chestpain, or any unexpected problems, contact your Primary Care Provider. Call [facility] ([phone]) or report to the closest Emergency Room. Call 911 if necessary. 12/26/24 7595 <Electronically signed by Mary Corbin DO> Cosigner Signature (if applicable): CC: ARSENIO Zapata ~ Signed [facility] Work Phone: 1(495) 278-519909-04-2025 Discharge summary Author Netta Domingo [facility] Note Date/Time December 05, 2024 10:11am [facility] Medical Records Department [address] [place] [address] Instructions for Home/Discharge Instructions 11/28/24 1527 MR#: [id number] Acct: [id number] Name: ELIN OSHEA Rep #:[id number] : 1985 39 From: Netta Domingo DO PCP: Louis Physician,Felicita Primary Status :ADM IN Discharge Instructions DC [...] You will needto follow up with the psychiatric therapist (blood doctor) after you leave rehab. Smoking/vaping [...] did not fax these prescriptions to [facility] but, I did write out a prescription. [...] do not hesitate to call me. OFFICE: [phone] CELL: [phone] NURSES STATION ON REHAB: [phone] The patient has a mobility limitation that [...] - 12/26/24 11:00 am (building behind [facility] [place] ([facility])) Liudmila Prado NP-C [Med Staff - Adv Practice Prof] - 12/11/24 9:30 am Torri Zapata NP-C [[facility]] - 12/17/24 11:00 am Disposition Disposition (needs filled in before D/C Order can be placed): Home Health Service 12/05/24 1011<Electronically signed by Netta Jennifer Domingo DO>Netta Jennifer Domingo DO CC: ABELARDO Prado; VSC ABDELRAHMAN-C Torri Zapata; Dr. Shaun Del Angel MD; No Primary Care Physician; [facility] ~ Signed [facility] Work Phone: 1(565) 751-748609-04-2025 Discharge summary Author [facility] Note Date/Time December 05, 2024 11:45am [facility] Medical Records Department [address] [place] [address] Discharge Summary 12/05/24 1011 MR#: [id number] Acct: [id number] Name: ELIN OSHEA Rep #:[id number] : 1985 39 From: Netta Domingo DO PCP: Care Physician,No Primary Status :ADM IN Location: [address] Date of Admission: 11/10/24 Date of Discharge: [...] muscle and she has not complained of BRIGGS or neck pain after a few days on rehab. Adderall and polycythemia may both have contributed to BRIGGS's. Due to the stroke she is nolonger [...] handout. She is compiling a list of ground rules for others to adhereto at home......eg. Do [...] chewable tablet 81 mg PO DAILY [facility] #0 tabs 11/01/24 acetaminophen 325 mg [...] 0 - Absent 8. Sensory: 1 - Jvsw-pg-zzxbjbwn sensory loss; (Mild to moderate sensory loss [...] will need to follow up with the psychiatric therapist (blood doctor) after you leave rehab. Smoking/vaping [...] stroke. 3. Your new primary care provider, Torriconner Zapata, is a good listener and is [...] did not fax these prescriptions to [facility] but, I did write out a prescription. [...] do not hesitate to call me. OFFICE: [phone] CELL: [phone] NURSES STATION ON REHAB: [phone] The patient has a mobility limitation that [...] Staff] - 12/30/24 3:00 pm (building behind [facility] ([facility])) Liudmila Prado NP-C [Med Staff - Adv Practice Prof] - 12/11/24 9:30 am Torri Zapata NP-C [[facility]] - 12/17/24 11:00 am Disposition Disposition (needs filled in before D/C Order can be placed): Home Health Service Charges/Coding Visit Charges Inpatient E&M: 65328 Disch Hosp >30min Hospital Course RU Operations None Procedures - (Phlebotomized for 2 units of packed red blood cells for HCTof 58.5. Hematocrit at discharge from rehab has ranged from 35.7 on 11/10/2019 5-39.2 on 12/03/2024.) Summary of Care Provided Minutes Spent on Discharge: 55 Hospital Course: Elin is a 39-year-old female [facility] complaining of left arm [...] 60%. Bubble contrast study was negative for exwmw-ve-jgdl interatrial shunt and no thrombus was detected [...] to the acute inpt rehab unit at [facility] 11/01/24 for 3 hours of therapy daily to restore function, independence at or near her level prior to admission to the hospital. On 11/04/24 she c/o CP and there were EKG changes. [facility] Cardiac cath was [...] spasm. After 48 hours she had no BRIGGS and no neck pain and these things [...] tizanidine and gabapentin which shecan get filled. lEin did amazingly well on rehab. The NIHSS score has decreased from 11 at admission to rehab to 2 at discharge. Her modified Quinn score is now 3, down from 4 [...] discharged home on 12/05/2024 and will have [facility] home health care for PT/OT/ST/WELL CLEANER/SN. DME includes a transfer wheelchair to facilitate traveling long distances in the community for doctors appts and such. A referral was made by the KATJA to the drivers rehab program at [facility] and she will go there to be tested when she and her therapists feel she is safe to drive again. She has follow up appts scheduled with Kitty CESAR/MARY for primary care, with Liudmila Prado for neurology, with [facility] for counselling and with Dr. Del Angel for polycythemia. 12/05/24 1145 <Electronically signed by Netta Domingo DO> Cosigner Signature (if applicable): CC: ABDELRAHMAN-Yuan Prado; VSC MANAGER DOCUMENT-Yuan Zapata; Dr. Shaun Del Angel MD; Dr. Netta Domingo DO; No Primary Care Physician; [facility]~ Signed [facility] Work Phone: 1(471) 242-448009-04-2025 [facility]09-02-2025 Progress note Author Netta Chayo [facility] Note Date/Time December 03, 2024 2:54pm [facility] Medical Records Department [address] [place] [address] Progress Note 12/03/2434 MR#: [id number] Acct: [id number] Name: ELIN OSHEA Rep #:[id number] : 1985 39 From: Netta Domingo DO PCP: Care Physician,No Primary Status :ADM IN Location: [place] [address] Subjective Subjective Afebrile VSS - Maintaining appropriate [...] handout. She is compiling a list of ground rules for others to adhereto at home......eg. Do [...] due tovaping? Charges/Coding Visit Charges Inpatient E&M: 97648 Subs Hosp L1 12/03/24 0619 <Electronically signed by Netta Domingo DO> Netta Domingo DO Cosign Signature (if applicable): CC: ~ Signed [facility] Work Phone: 1(886) 399-717409-02-2025 Progress note Author Netta Domingo [facility] Note Date/Time December 03, 2024 9:34am [facility] Medical Records Department [address] [place] [address] Progress Note 12/01/2421 MR#: [id number] Acct: [id number] Name: ELIN OSHEA Rep #:[id number] : 1985 39 From: Netta Domingo DO PCP: Care Physician,No Primary Status :ADM IN Location: [place] [address] Subjective Subjective Afebrile VSS -blood pressure over [...] regimen today Charges/Coding Visit Charges Inpatient E&M: 00474 Subs Hosp L1 12/03/24 0934 <Electronically signed by Netta Domingo DO> Netta Domingo DO Cosigner Signature (if applicable): CC: ~ Signed [facility] Work Phone: 1(962) 307-870708-28-2025 Progress note [facility] Note Date/Time November 28, 2024 3: 25pm [facility] Medical Records Department [address] [place] [address] Progress Note 11/28/24826 MR#: [id number] Acct: [id number] Name: ELIN OSHEA Rep #:[id number] : 1985 39 From: Netta Domingo DO PCP: Care Physician,No Primary Status :ADM IN Location: [place] [address] Subjective Subjective Elin was seen on TEAM [...] doctors appts. Charges/Coding Visit Charges Inpatient E&M: 37967 Subs Hosp L2 11/28/24 1525 <Electronically signed by Netta Domingo DO> Netta Domingo DO Cosigner Signature (if applicable): CC: ~ Signed [facility] Work Phone: 1([phone]) 412-110208-26-2025 Progress note Author Netta Domingo [facility] Note Date/Time November 26, 2024 3: 53pm [facility] Medical Records Department [address] [place] [address] Progress Note 11/26/24 1004 MR#: [id number] Acct: [id number] Name: ELIN OSHEA Rep #:[id number] : 1985 39 From: Netta Domingo DO PCP: Care Physician,No Primary Status :ADM IN Location: [place] [address] Subjective Subjective Afebrile VSS - Maintaining appropriate [...] blood pressures. Charges/Coding Visit Charges Inpatient E&M: 79592 Subs Hosp L1 11/26/24 3996 <Electronically signed by Netta Domingo DO> Netta Domingo DO Cosigner Signature (if applicable): CC: ~ Signed [facility] Work Phone: 1(410) 962-136808-26-2025 Progress note Author [facility] Note Date/Time November 26, 2024 9: 42am [facility] Medical Records Department [address] [place] [address] Progress Note 11/25/24 0953 MR#: [id number] Acct: [id number] Name: ELIN OSHEA Bao Rep #:[id number] : 1985 39 From: Netta Domingo DO PCP: Care Physician,No Primary Status :ADM IN Location: [place] [address] Subjective Subjective Afebrile VSS -blood pressure over [...] regimen today Charges/Coding Visit Charges Inpatient E&M: 71414 Subs Hosp L1 11/26/24 0942 <Electronically signed by Netta Domingo DO> Netta Domingo DO Cosigner Signature (if applicable): CC: ~ Signed [facility] Work Phone: 1(818) 620-735108-22-2025 Progress note Author [facility] Note Date/Time November 22, 2024 11 :50am [facility] Medical Records Department [address] [place] [address] Progress Note 11/22/24 1143 MR#: [id number] Acct: [id number] Name: ELIN OSHEA Rep #:[id number] : 1985 39 From: Netta Domingo DO PCP: Care Physician,No Primary Status :ADM IN Location: [place] [address] Progress Note Blood pressure past 24 hours [...] BMP on Monday Visit Charges Inpatient E&M: 05629 Subs Hosp L1 11/22/24 1150 <Electronically signed by Netta Domingo DO> Netta Domingo DO Cosigner Signature (if applicable): CC: ~ Signed [facility] Work Phone: 1(343) 861-374708-21-2025 Progress note Author [facility] Note Date/Time November 21, 2024 3: 34pm [facility] Medical Records Department [address] [place] [address] Progress Note 11/21/24 1452 MR#: [id number] Acct: [id number] Name: ELIN OSHEA Bao Rep #:[id number] : 1985 39 From: Netta Domingo DO PCP: Care Physician,No Primary Status :ADM IN Location: [place] [address] Subjective Subjective Elin was seen on TEAM [...] well and she is very happy at feeling more in control. Savo longer is complaining of cephalgia or neck [...] She will follow-up with [facility] and with Torri Zapata for PCP. Will also need to follow up with Dr. Ge for neurology and with Dr. Del Angel forpolycythemia. 5. No changes to the drug regimen today. 6. Recehck a CBC on Monday. Charges/Coding Visit Charges Inpatient E&M: 89578 Subs Hosp L2 11/21/24 1534 <Electronically signed by Netta Domingo DO> Netta Domingo DO [facility] Signature (if applicable): CC: ~ Signed [facility] Work Phone: 1([phone]) 990-917308-20-2025 Progress note Author Netta Domingo [facility] Note Date/Time November 20, 2024 11 :04am [facility] Medical Records Department [address] [place] [address] Progress Note 11/19/24818 MR#: [id number] Acct: [id number] Name: ELIN OSHEA Rep #:[id number] : 1985 39 From: Netta Domingo DO PCP: Care Physician,No Primary Status :ADM IN Location: [place] [address] Subjective Subjective Afebrile VSS -blood pressure over [...] drugregimen today. Charges/Coding Visit Charges Inpatient E&M: 18046 Subs Hosp L1 11/20/24 1104 <Electronically signed by Netta Domingo DO> Netta Domingo DO Cosigner Signature (if applicable): CC: ~ Signed [facility] Work Phone: [phone]) [phone] Progress note Author Netta [facility] Note Date/Time November 18, 2024 4: 26pm [facility] Medical Records Department [address] [place] [address] Progress Note 11/18/24 1013 MR#: [id number] Acct: [id number] Name: ELIN OSHEA Rep #:[id number] : 1985 39 From: Netta Domingo DO PCP: Care Physician,No Primary Status :ADM IN Location: [place] [address] Subjective Subjective Afebrile VSS -blood pressure over [...] 11/17/24 11/18/24 23:59 23:59 23:59 Intake Total 2124 1465 / 1465 Output Total 2074 / 2074 1300 / 1300 600 / 600 Balance [...] % (Auto) 62.3, Lymph % (Auto) 28.2, Early% (Auto) 6.4, Eos % (Auto) 1.9, Baso [...] was today.....also had a BM yesterday and Monday Extremity no calf tenderness General Extremity: Negative [...] actually improving. Charges/Coding Visit Charges Inpatient E&M: 90038 Subs Hosp L1 11/18/24 1626 <Electronically signed by Netta Domingo DO> Netta Domingo DO Cosigner Signature (if applicable): CC: ~ Signed [facility] Work Phone: [phone]) [phone] Progress note Author Netta Domingo [facility] Note Date/Time November 14, 2024 4: 39pm [facility] Medical Records Department [address] [place] [address] Progress Note 11/14/24 1548 MR#: [id number] Acct: [id number] Name: ELIN OSHEA Rep #:[id number] : 1985 39 From: Netta Domingo DO PCP: Care Physician,No Primary Status :ADM IN Location: [place] [address] Subjective Subjective Elin was seen on team [...] any significant distress. Has not c/o a BRIGGS. The Tizanidine seems to help with c/o [...] because [facility] and she had hundreds of cuts in [...] erythromycin ophthalmic preparations 3. Obtain records from [facility] regarding what she is being treated for. [...] drug interactions. Charges/Coding Visit Charges Inpatient E&M: 39982 Subs Hosp L2 11/14/24 2621 <Electronically signed by Netta Domingo DO> Netta Domingo Cosigner Signature (if applicable): CC: ~ Signed [facility] Work Phone: 1(320) 947-105208-12-2025 Progress note Author Netta Domingo [facility] Note Date/Time November 12, 2024 5: 42pm [facility] Medical Records Department [address] [place] [address] Progress Note 11/12/24 1733 MR#: [id number] Acct: [id number] Name: DAYOJON MurdockELIN N Rep #:[id number] : 1985 39 From: Netta Jennifer Kellymilton PHILLIPS PCP: Care Physician,No Primary Status :ADM IN Location: [place] [address] Progress Note Pt was reaching for her bedside table and slid out of bed. Nursing found her onthe floor when they responded to the alarm. [...] Cosigner Signature (if applicable): CC: ~ Signed [facility] Work Phone: 1([phone]) 188-589108-12-2025 Progress note Author Netta Domingo [facility] Note Date/Time November 12, 2024 5: 08pm [facility] Medical Records Department [address] [place] [address] Progress Note 11/12/24 1545 MR#: [id number] Acct: [id number] Name: DAYOELIN Rep #:[id number] : 1985 39 From: Netta Domingo DO PCP: Care Physician,No Primary Status :ADM IN [facility] Subjective Subjective Afebrile VSS -blood pressure over the past 24 hours has ranged from 124/74 to 147/93. Heart rate is within normal limits. Maintaining appropriate oxygen saturation on RA Oral intake - FOOD good FLUIDS good Discussed with nursing - Had flushing last night and blamed it on medication [...] and back to work. We discussed her BRIGGS's and what we can try to avoid using triptans and Nurtec. These medications did not consistently help her........what seems to help most is sleep. She has chronic insomnia. The migraines seem to always start at the base of the occiput on the R and she tells me that she never has a BRIGGS on the Left side of the head. [...] arm/shoulder. Slept well last night. 4. D/W plans on how to get her counselling at [facility]. 5. Will get an appt with Dr. Ge when we have a [place] date........Elin is agreeable to seeing Dr. Ge [...] and hypertension Charges/Coding Visit Charges Inpatient E&M: 61503 Subs Hosp L1 11/12/247 <Electronically signed by Netta Domingo DO> Netta Domingo DO Cosign Signature (if applicable): CC: ~ Signed [facility] Work Phone: [phone] 409-769708-12-2025 History and physical note Author Netta Domingo [facility] Note Date/Time November 12, 2024 3: 45pm [facility] Medical Records Department [address] [place] [address] History & Physical Exam 11/11/24808 MR#: [id number] Acct: [id number] Name: ELIN OSHEA Rep #:[id number] : 1985 39 From: Netta Domingo DO PCP: Care Physician,No Primary Status :ADM IN Location: [place] [address] HPI - General General Date of Admission: 11/10/24 Date of Service: 11/11/24 HPI Narrative ELIN OSHEA, is a 39 F with a PMH of ADD, HTN, migraines, seasonal allergies and cannabis use who was admitted to [facility] on 10/30/24 with ischemic CVA. MRI showed [...] transferred tothe acute inpt rehab unit at [facility] for rehabilitation. On 11/04/24 she c/o CP [...] She tells me that she sees a MANAGER DOCUMENT (Lisette Gonsalves[place] [facility] [place]. They are the ones prescribing the amphetamine. She also was getting a triptan to use at onset of a migraine.......she tool 2 onthe day she had a stroke. She tells me that the triptans do not help. The BRIGGS'sare always on the R side of the [...] work and her anxiety level went down. [facility] Medical History (Updated 11/12/24 @ 15:[address] 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 Smoking Status: Current every day smoker tobacco [...] Signs Vital Signs: 11/10/24 14:45 11/10/24 15:12 11/10/24 16:00 Temperature 98.3 F Temperature Source Temporal [...] CVA/Stroke: Yes Hx of CVA/Stroke: Yes Modified Valencia Score MRS Score at time of Evaluation: [...] bed (she is left handed. Left hand em physician is weaker than the R Very weak [...] in 1 limb 8. Sensory: 1 - Jktm-qw-ofjlroei sensory loss; (sensory loss in the face, [...] lift the LLE off the bed about 3 but has drift. It does not hit [...] to follow up with Dr. Bean gallegos [place]. (7) ADHD: QUALIFIERS: Attention deficit-hyperactivity disorder type: unspecified Qualified Code(s): F90.9 - Attention-deficit hyperactivity disorder,unspecified type PLAN: Tre[facility] for this and also migraine cephalgia [facility] [place]. She sees MANAGER DOCUMENT Lisette Gonsalves. Will get records and med [...] the eyes. Obtain records from Lisette Gonsalves MANAGER DOCUMENT [facility] [place]. We discussed DC all nicotine products, no [...] I recommended she follow up with a veneer matcher for concerns about the IUD she was supposed to have removed 1 year ago. She will need a 30-day event monitor at discharge. He can follow-up with cardiology for nonsustained V. tach and to review the results of the 30-day event monitor. Charges/Coding Visit Charges Inpatient E&M: 76803 Init Hosp L3 11/12/24 1545 <Electronically signed by Netta Domingo DO> Cosigner Signature (if applicable): CC: Dr. Netta Domingo, ; No Primary Care Physician~ Signed [facility] Work Phone: 1([phone]) 576-527808-12-2025 History and physical note Author Netta Domingo [facility] Note Date/Time November 12, 2024 11 :31am [facility] Medical Records Department [address] [place] [address] Post Admission Physician Pearl 11/11/24 1728 MR#: [id number] Acct: [id number] Name: ELIN OSHEA Rep #:[id number] : 1985 39 From: Netta Domingo DO PCP: Care Physician,No Primary Status :ADM IN Location: [place] [address] Admission Information Primary Diagnosis:: Poststroke debility Status [...] Skin integrity and Medication Management Patient needs Paper Coating Supervisor/ Case Management for: Discharge Planning, Arranging Home [...] Cosigner Signature (if applicable): CC: ~ Signed [facility] Work Phone: 1([phone]) [phone] Progress note Author Sandra Root [facility] Note Date/Time November 11, 2024 5: 27pm [facility] Medical Records Department [address] [place] [address] Progress Note 11/11/24 1112 MR#: [id number] Acct: [id number] Name: ELIN OSHEA Rep #:[id number] : 1985 39 From: Sandra ZHOU PCP: Care Physician,No Primary Status :ADM IN Location: [place] [address] Documented by User: ABELARDO Perez 11/11/24 11:39 Progress Note At the request of Dr. Simenti, I met with the patient, Elin to [...] about him and is one of the why's in her lifeto get better and return home. She does indicate that she is prone to panic attacks and feels like she is getting ready to have one I was able to talk her through some relaxation techniques with deep breathing and distraction. Isaiah became very tearful when talking about her job which she is fearful of losing. She states that she works for a [employer] and that she just got a promotion and a raise. She states that they assured her that her job would besecured but she is fearful that they are just placating me. We then had an extensive discussion about [...] her and that she plans on attending restorationist with this friend once she is discharged. [...] does not feel rested. She says that 1 hit of marijuana is the only thing that seems to help her. We discussed alternatives such as guided [...] primary team. Documented by User: Dr. Netta Domingo DO 11/11/24 17:27 Progress Note At the [...] about him and is one of the why's in her lifeto get better and return home. She does indicate that she is prone to panic attacks and feels like she is getting ready to have one I was able to talk her through [...] but she is fearful that they are just placating me. We then had an extensive discussion about [...] her and that she plans on attending restorationist with this friend once she is discharged. I did place a phone call to Mike [facility] and had to leave a message. I [...] does not feel rested. She says that 1 hit of marijuana is the only thing that seems to help her. We discussed alternatives such as guided [...] I saw the pt independently of the MANAGER DOCUMENT and completed her H&P. We discussed her [...] Sandra ZHOU Cosigner Signature (if applicable): 11/11/24 1727 <Electronically signed by Netta Domingo DO> CC: ~ Signed [facility] Work Phone: 1([phone]) [phone] [facility]08-10-2025 Discharge summary Author Nehemiah Hammond [facility] Note Date/Time November 10, 2024 8: 55am [facility] Medical Records Department [address] [place] [address] Discharge Summary 11/10/2433 MR#: [id number] Acct: [id number] Name: ELIN OSHEA Rep #:[id number] : 1985 39 From: Nehemiah Hammond MD PCP: Care Physician,No Primary Status :ADM IN Location: [place] [address] Providers Date of Admission: 11/04/24 Primary Care Physician: Felicita Primary Care Phys Consultations 11/04/24 13:13 Consult: Oncology/Hematology Routine Consulting Provider: [facility]) Reason for Consult: 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 Domingo prior to transfer to [facility] 11/04/24 13:55 Consult: Cardiology Routine [...] insurance still pending prior to transfer to alf for 3. Erythrocytosis with concern for polycythemia [...] % (Auto) 51.5, Lymph % (Auto) 37.4, Early % (Auto) 8.7, Eos % (Auto) 1.6, [...] Rehab Unit/Facility Charges/Coding Visit Charges Inpatient E&M: 74227 Disch Hosp >30min 11/10/24 0855 <Electronically signed by Nehemiah Hammond MD> Cosigner Signature (if applicable): CC: Dr. Nehemiah Hammond MD; No Primary Care Physician~ Signed [facility] Work Phone: [phone]) 197-216908-10-2025 Discharge summary [facility] Medical Records Department [address] [place] [address] Discharge Summary 11/10/24 0833 MR#: [id number] Acct: [id number] Name: ELIN OSHEA Bao Rep #:[id number] : 1985 39 From: Nehemiah Hammond MD PCP: Care Physician,No Primary Status :ADM IN Location: [place] [address] Providers Date of Admission: 11/04/24 Primary Care [...] insurance still pending prior to transfer to alf for 3. Erythrocytosis with concern for polycythemia [...] % (Auto) 51.5, Lymph % (Auto) 37.4, Early % (Auto) 8.7, Eos % (Auto) 1.6, [...] Rehab Unit/Facility Charges/Coding Visit Charges Inpatient E&M: 48831 Disch Hosp >30min 11/10/24 0855 Cosigner Signature (if applicable): CC: Dr. Nehemiah Hammond MD; No Primary Care Physician~ Signed [facility]08-10-2025 [facility]08-09-2025 Progress note Author Nehemiah Floressol [facility] Note Date/Time November 09, 2024 10: 29am [facility] Medical Records Department [address] [place] [address] Progress Note - Hospitalist 11/09/24 0729 MR#: [id number] Acct: [id number] Name: ELIN OSHEA Bao Rep #:[id number] : 1985 39 From: Nehemiah Hammond MD PCP: Care Physician,No Primary Status :ADM IN Location: [place] [address] Reason for Visit Chief Complaint: Chest pain [...] % (Auto) 55.6, Lymph % (Auto) 32.3, Early % (Auto) 9.0, Eos % (Auto) 2.2, [...] % (Auto) 55.4, Lymph % (Auto) 32.6, Early % (Auto) 9.2, Eos % (Auto) 1.9, [...] insurance still pending prior to transfer to alf for 3. Erythrocytosis with concern for polycythemia [...] 35 Minutes Charges/Coding Visit Charges Inpatient E&M: 22609 Subs Hosp L2 Date medically ready for discharge: 11/08/24 Reason for DC delay: Precert pending from insurance 11/09/24 1029 <Electronically signed by Nehemiah Hammond MD> Cosigner Signature (if applicable): CC: ~ Signed [facility] Work Phone: [phone]) [phone] Progress note [facility] Medical Records Department [address] [place] [address] Progress Note - Hospitalist 11/09/24 0729 MR#: [id number] Acct: [id number] Name: ELIN OSHEA Rep #:[id number] : 1985 39 From: Nehemiah Hammond MD PCP: Care Physician,No Primary Status :ADM IN Location: [place] [address] Reason for Visit Chief Complaint: Chest pain [...] % (Auto) 55.6, Lymph % (Auto) 32.3, Early % (Auto) 9.0, Eos % (Auto) 2.2, [...] % (Auto) 55.4, Lymph % (Auto) 32.6, Early % (Auto) 9.2, Eos % (Auto) 1.9, Baso % (Auto) 0.6, Absolute Neuts (auto) 5.0, Absolute Lymphs (auto) 2.95, Nucleated RBC % 0, Sodium 140, Potassium 4.2, [id number], Carbon Dioxide 23.8, Anion Gap 9, BUN [...] insurance still pending prior to transfer to alf for 3. Erythrocytosis with concern for polycythemia [...] 35 Minutes Charges/Coding Visit Charges Inpatient E&M: 57956 Subs Hosp L2 Date medically ready for discharge: 11/08/24 Reason for DC delay: Precert pending from insurance 11/09/24 1029 Cosigner Signature (if applicable): CC: ~ Signed [facility]08-08-2025 Progress note Author Nehemiah Hammond [facility] Note Date/Time November 08, 2024 9:2 5am [facility] Medical Records Department [address] [place] [address] Progress Note - Hospitalist 11/08/24 0751 MR#: [id number] Acct: [id number] Name: ELIN OSHEA Bao Rep #:[id number] : 1985 39 From: Nehemiah Hammond MD PCP: Care Physician,No Primary Status :ADM IN Location: [place] [address] Reason for Visit Chief Complaint: Chest pain [...] % (Auto) 63.9, Lymph % (Auto) 24.1, Early % (Auto) 9.6, Eos % (Auto) 1.7, [...] % (Auto) 55.6, Lymph % (Auto) 32.3, Early % (Auto) 9.0, Eos % (Auto) 2.2, [...] 35 Minutes Charges/Coding Visit Charges Inpatient E&M: 04405 Subs Hosp L2 Date medically ready for discharge: 11/05/24 Reason for DC delay: Precert pending from insurance 11/08/24924 <Electronically signed by Nehemiah Hammond MD> Cosigner Signature (if applicable): CC: ~ Signed [facility] Work Phone: 1([phone]) 628-630308-08-2025 Progress note [facility] Medical Records Department [address] [place] [address] Progress Note - Hospitalist 11/08/24 0751 MR#: [id number] Acct: [id number] Name: DAYOELIN Murdock Bao Rep #:[id number] : 1985 39 From: Nehemiah Hammond MD PCP: Care Physician,No Primary Status :ADM IN Location: [place] [address] Reason for Visit Chief Complaint: Chest pain [...] % (Auto) 63.9, Lymph % (Auto) 24.1, Early % (Auto) 9.6, Eos % (Auto) 1.7, [...] % (Auto) 55.6, Lymph % (Auto) 32.3, Early % (Auto) 9.0, Eos % (Auto) 2.2, [...] 35 Minutes Charges/Coding Visit Charges Inpatient E&M: 38450 Subs Hosp L2 Date medically ready for discharge: 11/05/24 Reason for DC delay: Precert pending from insurance 11/08/24924 Cosigner Signature (if applicable): CC: ~ Signed [facility]08-07-2025 Progress note Author Nehemiah Hammond [facility] Note Date/Time November 07, 2024 10: 13am [facility] Medical Records Department [address] [place] [address] Progress Note - Hospitalist 11/07/24 1006 MR#: [id number] Acct: [id number] Name: ELIN OSHEA Rep #:[id number] : 1985 39 From: Nehemiah Hammond MD PCP: Care Physician,No Primary Status :ADM IN Location: [place] [address] Reason for Visit Chief Complaint: Chest pain [...] 35 Minutes Charges/Coding Visit Charges Inpatient E&M: 53951 Subs Hosp L2 Date medically ready for discharge: 11/05/24 Reason for DC delay: Precert pending from insurance 11/07/24 1013 <Electronically signed by Nehemiah Hammond MD> Cosigner Signature (if applicable): CC: ~ Signed [facility] Work Phone: 1(373) 271-532508-07-2025 Progress note [facility] Medical Records Department [address] [place] [address] Progress Note - Hospitalist 11/07/24 1006 MR#: [id number] Acct: [id number] Name: ELIN OSHEA Rep #:[id number] : 1985 39 From: Nehemiah Hammond MD PCP: Care Physician,No Primary Status :ADM IN Location: [place] [address] Reason for Visit Chief Complaint: Chest pain [...] 35 Minutes Charges/Coding Visit Charges Inpatient E&M: 06035 Subs Hosp L2 Date medically ready for discharge: 11/05/24 Reason for DC delay: Precert pending from insurance 11/07/24 1013 Cosigner Signature (if applicable): CC: ~ Signed [facility]08-06-2025 Progress note Author Nehemiah Hammond [facility] Note Date/Time November 06, 2024 8:5 9am [facility] Medical Records Department [address] [place] [address] Progress Note - Hospitalist 11/06/24 0858 MR#: [id number] Acct: [id number] Name: ELIN OSHEA Rep #:[id number] : 1985 39 From: Nehemiah Hammond MD PCP: Care Physician,No Primary Status :ADM IN Location: [place] [address] Reason for Visit Chief Complaint: Chest pain [...] % (Auto) 58.7, Lymph % (Auto) 27.6, Early % (Auto) 10.9 H, Eos % (Auto) [...] with no acute abdominopelvic abnormalities. Reading Location: [facility] Physical Exam Narrative GENERAL: cooperative HEENT: [...] 35 Minutes Charges/Coding Visit Charges Inpatient E&M: 38822 Subs Hosp L2 Date medically ready for discharge: 11/05/24 Reason for DC delay: Precert pending from insurance 11/06/24 0859 <Electronically signed by Nehemiah Hammond MD> Cosigner Signature (if applicable): CC: ~ Signed [facility] Work Phone: 1(167) 342-326308-06-2025 Progress note Author Law Eduardo [facility] Note Date/Time November 06, 2024 7:3 7am [facility] Medical Records Department [address] [place] [address] Progress Note - Cardiology 11/06/24 0733 MR#: [id number] Acct: [id number] Name: ELIN OSHEA Rep #:[id number] : 1985 39 From: Law Eduardo MD PCP: Care Physician,No Primary Status :ADM IN Location: [place] [address] Subjective Subjective Patient seen and evaluated Objective [...] % (Auto) 58.7, Lymph % (Auto) 27.6, Early % (Auto) 10.9 H, Eos % (Auto) [...] % (Auto) 58.7, Lymph % (Auto) 27.6, Early % (Auto) 10.9 H, Eos % (Auto) [...] focal hepatic process is noted. Reading Location: [facility]-1 Abdomen/Pelvis CT 11/05/24 14:54 IMPRESSION: Unremarkable study with no acute abdominopelvic abnormalities. Reading Location: [facility] Assessment & Plan Assessment/Plan (1) Chest [...] Cosigner Signature (if applicable): CC: ~ Signed [facility] Work Phone: 1(100) 474-178008-06-2025 Progress note [facility] Medical Records Department [address] [place] [address] Progress Note - Hospitalist 11/06/24 0858 MR#: [id number] Acct: [id number] Name: ELIN OSHEA Rep #:[id number] : 1985 39 From: Nehemiah Hammond MD PCP: Care Physician,No Primary Status :ADM IN Location: [place] [address] Reason for Visit Chief Complaint: Chest pain [...] Neut %(Auto) 58.7, Lymph % (Auto) 27.6, Early % (Auto) 10.9 H, Eos % (Auto) [...] with no acute abdominopelvic abnormalities. Reading Location: [facility] Physical Exam Narrative GENERAL: cooperative HEENT: [...] 35 Minutes Charges/Coding Visit Charges Inpatient E&M: 18023 Subs Hosp L2 Date medically ready for discharge: 11/05/24 Reason for DC delay: Precert pending from insurance 11/06/24 0859 Cosigner Signature (if applicable): CC: ~ Signed [facility]08-06-2025 Progress note Author Ximena Mccormick [facility] Note Date/Time November 06, 2024 6:4 7am [facility] Medical Records Department [address] [place] [address] Progress Note - Hospitalist 11/06/24 0546 MR#: [id number] Acct: [id number] Name: DAYORAVINDER MurdockChristina Salas Rep #:[id number] : 1985 39 From: Ximena Mccormick MD PCP: Care Physician,No Primary Status :ADM IN Location: [place] [address] Hospitalist Note Patient with significant asymptomatic bout of VT. Resolved. Cardiology made aware. Will obtain a.m. labs including magnesium. 11/06/24 0647 <Electronically signed by Ximena Mccormick MD> Cosigner Signature (if applicable): CC: ~ Signed [facility] Work Phone: 1(995) 199-115008-06-2025 Progress note [facility] Medical Records Department [address] [place] [address] Progress Note - Cardiology 11/06/24 0733 MR#: [id number] Acct: [id number] Name: ELIN OSHEA Rep #:[id number] : 1985 39 From: Law Eduardo MD PCP: Care Physician,No Primary Status :ADM IN Location: [place] [address] Subjective Subjective Patient seen and evaluated Objective [...] Neut %(Auto) 58.7, Lymph % (Auto) 27.6, Early % (Auto) 10.9 H, Eos % (Auto) [...] % (Auto) 58.7, Lymph % (Auto) 27.6, Early % (Auto) 10.9 H, Eos % (Auto) [...] focal hepatic process is noted. Reading Location: [facility]-1 Abdomen/Pelvis CT 11/05/24 14:54 IMPRESSION: Unremarkable study with no acute abdominopelvic abnormalities. Reading Location: [facility] Assessment & Plan Assessment/Plan (1) Chest [...] Cosigner Signature (if applicable): CC: ~ Signed [facility]08-06-2025 Progress note [facility] Medical Records Department [address] [place] [address] Progress Note - Hospitalist 11/06/24 0546 MR#: [id number] Acct: [id number] Name: ELIN OSHEA Rep #:[id number] : 1985 39 From: Ximena Mccormick MD PCP: Care Physician,No Primary Status :ADM IN Location: [place] [address] Hospitalist Note Patient with significant asymptomatic bout of VT. Resolved. Cardiology made aware. Will obtain a.m.labs including magnesium. 11/06/24 0647 Cosigner Signature (if applicable): CC: ~ Signed [facility]08-05-2025 Radiology Diagnostic study note [facility] [address] [place], [place] [address] Abdomen/Pelvis WITH Contrast MR#: [id number] Acct: [id number] Name: ELIN OSHEA Rep #: [id number] : 1985 F 39 From: Chaz Hugo MD PCP: Care Physician,No Primary Status: ADM IN Study:Abdomen/Pelvis WITH Contrast Date of Ex am: 11/05/24 Exam# [id number] Ordering Dr: Mya Hammond MD PROCEDURE: ABDOMEN/PELVIS [...] with no acute abdominopelvic abnormalities. Reading Location: [facility] CC: Dr. Nehemiah Hammond MD; No Primary Care Physician ~ Label Paster: Signed [facility]08-05-2025 Progress note Author Nehemiah Hammond [facility] Note Date/Time November 05, 2024 11: 20am [facility] Medical Records Department [address] [place] [address] Progress Note - Hospitalist 11/05/24 1117 MR#: [id number] Acct: [id number] Name: ELIN OSHEA Rep #:[id number] : 1985 39 From: Nehemiah Hammond MD PCP: Care Physician,No Primary Status :ADM IN Location: [place] [address] Reason for Visit Chief Complaint: Chest pain [...] focal hepatic process is noted. Reading Location: [place] [address] Physical Exam Narrative GENERAL: cooperative HEENT: Atraumatic; [...] 36 Minutes Charges/Coding Visit Charges Inpatient E&M: 51332 Subs Hosp L2 Date medically ready for discharge: 11/05/24 Reason for DC delay: Precert pending from insurance 11/05/24 1120 <Electronically signed by Nehemiah Hammond MD> Cosigner Signature (if applicable): CC: ~ Signed [facility] Work Phone: 1(725) 584-138708-05-2025 Progress note [facility] Medical Records Department [address] [place] [address] Progress Note - Hospitalist 11/05/24 1117 MR#: [id number] Acct: [id number] Name: ELIN OSHEA Rep #:[id number] : 1985 39 From: Nehemiah Hammond MD PCP: Care Physician,No Primary Status :ADM IN Location: [place] [address] Reason for Visit Chief Complaint: Chest pain [...] focal hepatic process is noted. Reading Location: [place] [address] Physical Exam Narrative GENERAL: cooperative HEENT: Atraumatic; [...] 36 Minutes Charges/Coding Visit Charges Inpatient E&M: 30601 Subs Hosp L2 Date medically ready for discharge: 11/05/24 Reason for DC delay: Precert pending from insurance 11/05/24 1120 Cosigner Signature (if applicable): CC: ~ Signed [facility]08-05-2025 Radiology Diagnostic study note [facility] [address] [place], [place] [address] Abdomen Complete MR#: [id number] Acct: [id number] Name: ELIN OSHEA Rep #: [id number] : 1985 F 39 From: Demetrius Zarate MD PCP: Care Physician,No Primary Status: ADM IN Study:Abdomen Complete Date of Exam: 08/25 Exam# [id number] Ordering Dr: Kaleb Vick DO PROCEDURE: ABDOMEN [...] focal hepatic process is noted. Reading Location: [place] [address] CC: Dr. Kaleb Horta DO; No Primary Care Physician ~ Label Paster: Signed [facility]08-04-2025 Consult note Author Shaun Del Angel [facility] Note Date/Time November 04, 2024 6:1 6pm [facility] [address] [place] [address] Consultation - Oncology IP 11/04/24 1746 MR#: [id number] Acct: [id number] Name: DAYORAVINDERChristina Salas Rep #:[id number] : 1985 39 From: Shaun Del Angel MD PCP: Care Physician,No Primary Status :ADM IN Location: [place] [address]- Assessment & Plan Assessment/Plan (1) Polycythemia: Status: [...] Do you have a Healthcare Power of Buttonhole Facer?: No [facility] Medical History HTN (hypertension) ADHD Migraine [...] DO; No Primary Care Physician ~ Signed [facility] Work Phone: 1(297) 313-400308-04-2025 History and physical note Author Kaleb Horta [facility] Note Date/Time November 04, 2024 4:4 4pm [facility] Medical Records Department [address] [place] [address] H&P Exam - Hospitalist 11/04/24 1309 MR#: [id number] Acct: [id number] Name: ELIN OSHEA Rep #:[id number] : 1985 39 From: Kaleb bridges DO PCP: Care Physician,No Primary Status :ADM IN Location: [facility] [place] [address] HPI - General General Date of Admission: 11/04/24 Date of Service: 11/04/24 Chief Complaint: Chest pain HPI Narrative ELIN OSHEA, is a 39 F who presented from [facility] rehab unit for chest pain. Patient [...] admitted to the PCU for further management. [facility] Medical History HTN (hypertension) ADHD Migraine [...] a 39-year-old female who presented from the [facility] rehab unit for chest pain. 1. [...] 75 minutes. Charges/Coding Visit Charges Inpatient E&M: 01736 Init Hosp L3 11/04/24 1644 <Electronically signed by Kaleb Horta DO> Cosigner Signature (if applicable): CC: Dr. Kaleb Horta DO; No Primary Care Physician~ Signed [facility] Work Phone: 1(284) 566-808808-04-2025 Consult note [facility] [address] [place] [address] Consultation - Oncology IP 11/04/24 1386 MR#: [id number] Acct: [id number] Name: ELIN OSHEA Rep #:[id number] : 1985 39 From: Shaun Del Angel MD PCP: Care Physician,No Primary Status :ADM IN Location: [place] [address] Assessment & Plan Assessment/Plan (1) Polycythemia: Status: [...] Do you have a Healthcare Power of Buttonhole Facer?: No [facility] Medical History HTN (hypertension) ADHD Migraine [...] DO; No Primary Care Physician ~ Signed [facility]08-04-2025 History and physical note [facility] Medical Records Department [address] [place] [address] H&P Exam - Hospitalist 11/04/24 1309 MR#: [id number] Acct: [id number] Name: ELIN OSHEA Rep #:[id number] : 1985 39 From: Klaeb bridges DO PCP: Care Physician,No Primary Status :ADM IN Location: [facility] [address] HPI - General General Date of Admission: 11/04/24 Date of Service: 11/04/24 Chief Complaint: Chest pain HPI Narrative ELIN OSHEA, is a 39 F who presented from [facility] rehab unit for chest pain. Patient [...] admitted to the PCU for further management. [facility] Medical History HTN (hypertension) ADHD Migraine [...] a 39-year-old female who presented from the [facility] rehab unit for chest pain. 1. [...] 75 minutes. Charges/Coding Visit Charges Inpatient E&M: 82306 Init Hosp L3 11/04/24 1644 Cosigner Signature (if applicable): CC: Dr. Kaleb Horta, DO; No Primary Care Physician~ Signed [facility]08-04-2025 Discharge summary [facility] Medical Records Department [address] [place] [address] Discharge Summary 11/04/24 1032 MR#: [id number] Acct: [id number] Name: ELIN OSHEA Rep #:[id number] : 1985 39 From: Netta Domingo DO PCP: Care Physician,No Primary Status :ADM IN Location: [place] [address]-1 Providers Date of Admission: 11/01/24 Date of [...] Neut % (Auto) 65.7, Lymph % (Auto) 24.9,Early % (Auto) 8.2, Eos % (Auto) 0.6, [...] the right side.) 8. Sensory: 1 - Tzzb-aq-jmpdknye sensory loss; 9. Best Language: 0 - No aphasia; normal 10. Dysarthria: 1 = Tgpr-sa-imasgjvs dysarthria; 11. Extinction and Inattention: 0 - [...] Attending Provider: Kaleb Horta Primary Care Provider: Louis Physician,Felicita Primary Consulting Providers: Lori Hay; Kanwal [...] Provider] - Charges/Coding Visit Charges Inpatient E&M: 29330 Disch Hosp >30min Hospital Course RU Procedures Transesophageal Echo Summary of Care Provided Minutes Spent on Discharge: 55 Hospital Course: Patient is a 39-year-old female who presented to the emergency department at [facility] on 10/30/2024 complaining of left arm [...] 60%. Bubble contrast study was negative for ylawz-vl-pgym interatrial shunt and no thrombus was detected [...] to the acute inpt rehab unit at [facility] on 11/01/24 for 3 hours of [...] Dr. Eduardo from cardiology who recommended adding gvzckeszcj75 mg p.o. twice daily. She is going [...] Domingo, DO; No Primary Care Physician~ Signed [facility]08-04-2025 [facility] History and physical note Author Luis Ravi [facility] Note Date/Time November 02, 2024 1:[facility] [address] [facility] [place] [address] Post Admission Physician Pearl 11/02/24 1306 MR#: [id number] Acct: [id number] Name: ELIN OSHEA Bao Rep #:[id number] : 1985 39 From: Luis Ravi MD PCP: Care Physician,No Primary Status :ADM IN Location: [place] [address] Admission Information Primary Diagnosis:: Stroke, left hemiplegia, [...] Skin integrity and Medication Management Patient needs Paper Coating Supervisor/ Case Management for: Discharge Planning, Arranging Home [...] Cosigner Signature (if applicable): CC: ~ Signed [facility] Work Phone: 1(731) 563-737708-02-2025 History and physical note [facility] Medical Records Department [address] [place] [address] Post Admission Physician Pearl 11/02/24 1306 MR#: [id number] Acct: [id number] Name: ELIN OSHEA Rep #:[id number] : 1985 39 From: Luis Ravi MD PCP: Care Physician,No Primary Status :ADM IN Location: [place] [address] Admission Information Primary Diagnosis:: Stroke, left hemiplegia, [...] Skin integrity and Medication Management Patient needs Paper Coating Supervisor/ Case Management for: Discharge Planning, Arranging Home [...] Cosigner Signature (if applicable): CC: ~ Signed [facility]08-01-2025 History and physical note Author Luis Ravi [facility] Note Date/Time November 01, 2024 4:5 3pm [facility] Medical Records Department [address] [place] [address] History & Physical Exam 11/01/24 1617 MR#: [id number] Acct: [id number] Name: ELIN OSHEA Bao Rep #:[id number] : 1985 39 From: Luis Ravi MD PCP: Care Physician,No Primary Status :ADM [facility] H[facility] - General General Date of Admission: 11/01/24 Date of Service: 11/01/24 Chief Complaint: Here for 3 hours daily rehabilitation. HPI Narrative ELIN OSHEA, is a 39 Female who presents with followin10/30/2024 [facility] ED stroke alert. Sudden left arm [...] for migraine headache, headache improved. 10/30/2024 Admit [facility]. MRI brain, Echo, Aspirin, Statin for [...] daily rehabilitation, strengthening, prior to disposition determination. [facility] Medical History (Updated 11/01/24 @ 16:38 [...] CVA/Stroke: Yes Hx of CVA/Stroke: No Modified Valencia Score MRS Score at time of Evaluation: [...] 0 - Absent 8. Sensory: 1 - Kjvj-te-jklqgqdn sensory loss; 9. Best Language: 0 - [...] rhinitis - Loratadine 10mg daily prn. 11/01/24 0711 <Electronically signed by Luis Ravi MD> Cosigner Signature (if applicable): CC: Dr. Luis Ravi MD; No Primary Care Physician~ Signed [facility] Work Phone: 1(757) 510-884708-01-2025 History and physical note [facility] Medical Records Department [address] [place] [address] History & Physical Exam 11/01/24 1617 MR#: [id number] Acct: [id number] Name: DAYOELIN Murdock Bao Rep #:[id number] : 1985 39 From: Luis Ravi MD PCP: Care Physician,No Primary Status :ADM IN Location: [place] [address] HPI - General General Date of Admission: 11/01/24 Date of Service: 11/01/24 Chief Complaint: Here for 3 hours daily rehabilitation. HPI Narrative ELIN OSHEA, is a 39 Female who presents with followin10/30/2024 [facility] ED stroke alert. Sudden left arm [...] for migraine headache, headache improved. 10/30/2024 Admit [facility]. MRI brain, Echo, Aspirin, Statin for [...] daily rehabilitation, strengthening, prior to disposition determination. [facility] Medical History (Updated 11/01/24 @ 16:38 [...] 0 - Absent 8. Sensory: 1 - Pois-le-ynyozhje sensory loss; 9. Best Language: 0 - [...] Ravi MD; No Primary Care Physician~ Signed [facility]08-01-2025 [facility] Discharge summary [facility] Medical Records Department [address] [place] [address] Instructions for Home/Discharge Instructions 11/01/24 1422 MR#: [id number] Acct: [id number] Name: ELIN OSHEA Bao Rep #:[id number] : 1985 39 From: Vee Stuart MD PCP: Care Physician,No Primary Status :ADM IN Discharge Instructions DC O2, CPAP, BIPAP needs Home O2 Discharge instructions: No Dressing / Incision Discharge Activity: - (Discharging to [facility] rehab) Follow Up Care Test [...] Recorder Preventi (Urgent) Timeframe: 1 Day Facility: [facility] - Location: Cardiovascular Services Ordered By: [...] Care Physician; Mark Garcias MD ~ Signed [facility]08-01-2025 [facility]07-31-2025 Consult note Author Tong Rai [facility] Note Date/Time October 31, 2024 1:03 pm [facility] Medical Records Department [address] [place] [address] Consultation - Neurology 10/31/24 1253 MR#: [id number] Acct: [id number] Name: ELIN OSHEA Rep #:[id number] : 1985 39 From: Tong Rai MD PCP: Care Physician,No Primary Status :ADM IN Location: [place] [address] Assessment and Plan: Stroke Assessment/Plan ELIN OSHEA [...] given her subtle exam fluctuations. In the snf, BP goal is < 130/85. If her [...] snoring, apneic episodes of excessive daytime somnolence. [facility] Medical History (Updated 10/31/24 @ 00:55 [...] 79.3 H, Lymph % (Auto) 15.0 L, Early % (Auto) 4.2, Eos % (Auto) 0.4, [...] 9:01 pm EST on 10/30/24. Reading Location: [facility] Head/Neck CTA 10/30/24 20:52 IMPRESSION: No acute large vessel occlusion. No high grade stenosis. Reading Location: [facility] Chest X-Ray 10/30/24 21:41 IMPRESSION: No acute cardiopulmonary disease. Reading Location: [facility] Brain MRI 10/31/24 06:00 IMPRESSION: [...] Thai at the time ofdictation. [facility] Active Medications Active Medications Active Medications: Current [...] 10/31/24 09:56 IV 10/31/24 14:02 70 mls/hr .[id number] MARIN Infusion Labetalol HCl 10 - 20 [...] and with change in RN caregiver. Freq: [id number] Protocol: Activity Type Activity Date Activity User E-sign Co-sign Detail Recorded Client Recorded Date Recorded By Document 10/31/24 10:00 [facility] [id number] 10/31/24 10:07 [facility] 10/31/24 10:00 [facility] Stroke Scale [...] 0 - Absent 8. Sensory: 1 - Eunu-er-bedpahpu sensory loss; 9. Best Language: 0 - No aphasia; normal 10. Dysarthria: 1 = Tmyr-tb-ikmszmws dysarthria; 11. Extinction and Inattention: 0 - No abnormality Total: 10 10/31/24 1303 <Electronically signed by Tong Rai MD> Cosigner Signature (if applicable): CC: No Primary Care Physician~ Signed [facility] Work Phone: 1([phone]) 144-151307-31-2025 Consult note [facility] Medical Records Department [address] [place] [address] Consultation - Neurology 10/31/24 1253 MR#: [id number] Acct: [id number] Name: ELIN OSHEA Rep #:[id number] : 1985 39 From: Tong Rai MD PCP: Care Physician,No Primary Status :ADM IN Location: [place] [address] Assessment and Plan: Stroke Assessment/Plan ELIN OSHEA [...] her subtle exam fluctuations. 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 If [...] snoring, apneic episodes of excessive daytime somnolence. [facility] Medical History (Updated 10/31/24 @ 00:55 [...] 79.3 H, Lymph % (Auto) 15.0 L, Early % (Auto) 4.2, Eos % (Auto) 0.4, [...] 209 H, LDL Cholesterol, Calc 108, VLDL Vprdesazwom06, HDL Cholesterol 61, Cholesterol/HDL Ratio 3.43, Vitamin B12 484 Imaging Radiology Impression Brain CT 10/30/24 20:46 IMPRESSION: Left frontal lobe periventricular white matter focal hypodensity measuring approximally 7 x 7 mm, which may reflect a lacunar infarction however acute infarction is not entirely excluded. Dr. Silva was notified by Jeanette De Jesus at 9:01 pm EST on 10/30/24. Reading Location: [facility] Head/Neck CTA 10/30/24 20:52 IMPRESSION: No acute large vessel occlusion. No high grade stenosis. Reading Location: [facility] Chest X-Ray 10/30/24 21:41 IMPRESSION: No acute cardiopulmonary disease. Reading Location: [facility] Brain MRI 10/31/24 06:00 IMPRESSION: [...] Thai at the time ofdictation. [facility] Active Medications Active Medications Active Medications: Current [...] 10/31/24 09:56 IV 10/31/24 14:02 70 mls/hr .[id number] MARIN Infusion Labetalol HCl 10 - 20 [...] and with change in RN caregiver. Freq: [id number] Protocol: Activity Type Activity Date Activity User E-sign Co-sign Detail Recorded Client Recorded Date Recorded By Document 10/31/24 10:00 [facility] [id number] 10/31/24 10:07 [facility] 10/31/24 10:00 [facility] Stroke Scale [...] 0 - Absent 8. Sensory: 1 - Iruy-rj-driibhex sensory loss; 9. Best Language: 0 - No aphasia; normal 10. Dysarthria: 1 = Vqsa-kr-fhnxnnro dysarthria; 11. Extinction and Inattention: 0 - No abnormality Total: 10 10/31/24 1303 Cosigner Signature (if applicable): CC: No Primary Care Physician~ Signed [facility]07-31-2025 Progress note Author Sen Clarke [facility] Note Date/Time October 31, 2024 9:46 am [facility] Medical Records Department [address] [place] [address] Progress Note - Hospitalist 10/31/24 0938 MR#: [id number] Acct: [id number] Name: ELIN OSHEA Bao Rep #:[id number] : 1985 39 From: Sen sherwood MD PCP: Care Physician,No Primary Status :ADM IN Location: [place] [address] Subjective Subjective Still having a migraine, and [...] 79.3 H, Lymph % (Auto) 15.0 L, Early % (Auto) 4.2, Eos % (Auto) 0.4, [...] 9:01 pm EST on 10/30/24. Reading Location: [facility] Head/Neck CTA 10/30/24 20:52 IMPRESSION: No acute large vessel occlusion. No high grade stenosis. Reading Location: [facility] Chest X-Ray 10/30/24 21:41 IMPRESSION: No acute cardiopulmonary disease. Reading Location: [facility] Physical Exam Narrative General: Alert, [...] DVT: SCDs Charges/Coding Visit Charges Inpatient E&M: 47245 Subs Hosp L2 NIHSS NIHSS Nursing Documentation NIHSS Nursing Documentation: NIHSS: Ischemic Stroke/TIA Start: 10/31/24 01:12 Text: For PCU Patients: NIH and Neuro Check every 4 Status: Active hours, PRN and with change in RN caregiver. Freq: [id number] Protocol: Activity Type Activity Date Activity User E-sign Co-sign Detail Recorded Client Recorded Date Recorded By Document 10/31/24 06:00 [facility] [id number] 10/31/24 06:25 [facility] 10/31/24 06:00 [facility] Stroke [...] Cosigner Signature (if applicable): CC: ~ Signed [facility] Work Phone: 1(578) 783-923607-31-2025 Progress note [facility] Medical Records Department [address] [place] [address] Progress Note - Hospitalist 10/31/24 0938 MR#: [id number] Acct: [id number] Name: ELIN OSHEA Rep #:[id number] : 1985 39 From: Sen sherwood MD PCP: Care Physician,No Primary Status :ADM IN Location: [place] [address] Subjective Subjective Still having a migraine, and [...] 79.3 H, Lymph % (Auto) 15.0 L, Early % (Auto) 4.2, Eos % (Auto) 0.4, [...] 209 H, LDL Cholesterol, Calc 108, VLDL Aytjdklpjpt61, HDL Cholesterol 61, Cholesterol/HDL Ratio 3.43, Vitamin B12 484 Radiography Diagnostic Testing: Radiology Impression Brain CT 10/30/24 20:46 IMPRESSION: Left frontal lobe periventricular white matter focal hypodensity measuring approximally 7 x 7 mm, which may reflect a lacunar infarction however acute infarction is not entirely excluded. Dr. Silva was notified by Jeanette De Jesus at 9:01 pm EST on 10/30/24. Reading Location: [facility] Head/Neck CTA 10/30/24 20:52 IMPRESSION: No acute large vessel occlusion. No high grade stenosis. Reading Location: [facility] Chest X-Ray 10/30/24 21:41 IMPRESSION: No acute cardiopulmonary disease. Reading Location: [facility] Physical Exam Narrative General: Alert, [...] DVT: SCDs Charges/Coding Visit Charges Inpatient E&M: 91673 Subs Hosp L2 NIHSS NIHSS Nursing Documentation NIHSS Nursing Documentation: NIHSS: Ischemic Stroke/TIA Start: 10/31/24 01:12 Text: For PCU Patients: NIH and Neuro Check every 4 Status: Active hours, PRN and with change in RN caregiver. Freq: [id number] Protocol: Activity Type Activity Date Activity User E-sign Co-sign Detail Recorded Client Recorded Date Recorded By Document 10/31/24 06:00 [facility] [id number] 10/31/24 06:25 [facility] 10/31/24 06:00 NIH Stroke Scale [NIHSS] A [...] Cosigner Signature (if applicable): CC: ~ Signed [facility]07-31-2025 History and physical note Author Nehemiah Medrano [facility] Note Date/Time October 31, 2024 6:31 am [facility] Medical Records Department [address] [place] [address] H&P Exam - Hospitalist 10/30/24 1620 MR#: [id number] Acct: [id number] Name: DAYOELIN Murdock Bao Rep #:[id number] : 1985 39 From: Nehemiah Cordova DO PCP: Care Physician,No Primary Status :ADM IN Location: [address] 1 HPI - General General Date of Admission: 10/30/24 Date of Service: 10/30/24 Chief Complaint: Acute Left-sided Weakness with Slurred Speech. HPI Kim OSHEA, is a 39 F with a past medical history of being overweight; with BMIof 29.3 this admission, essential hypertension; on prn clonidine, tobacco abuse,migraine headaches; on prn rizatriptan, ADHD; on dextroamphetamine-amphetamine BID and seasonal allergies; on loratadine who presents to [facility] ER complaining of acute Left-sided weakness [...] status expected to extend beyond 2 midnights. [facility] Medical History (Updated 10/31/24 @ 00:[address] Nehemiah Haney, DO) HTN (hypertension) ADHD Migraine Strain of great toe, right Contusion of right great toe without damage to nail Home Medications ?Medication ?Instructions ?Recorded ?Last Taken ?Type dextroamphetamine-amphetamine 15 25 mg PO BID 07/17/14 Unknown History mg tablet (Adderall) loratadine 10 mg tablet (Claritin) 10 mg PO DAILY PRN PRN Allergies 10/25/18 Unknown History clonidine HCl 0.1 mg tablet [...] 79.3 H, Lymph % (Auto) 15.0 L, Early % (Auto) 4.2, Eos % (Auto) 0.4, [...] 9:01 pm EST on 10/30/24. Reading Location: [facility] Head/Neck CTA 10/30/24 20:52 IMPRESSION: No acute large vessel occlusion. No high grade stenosis. Reading Location: [facility] Chest X-Ray 10/30/24 21:41 IMPRESSION: No acute cardiopulmonary disease. Reading Location: [facility] Assessment & Plan Assessment/Plan (1) [...] artery vasospasm. Give acetaminophen as needed for mlib-iq-boixxoff (level 1-5/10) pain or fever. Givemorphine IV [...] 75 minutes. Charges/Coding Visit Charges Inpatient E&M: 27653 Init Hosp L3 10/31/24 0631 <Electronically signed by Nehemiah Haney DO> Cosigner Signature (if applicable): CC: Dr. Nehemiah Haney DO; No Primary Care Physician~ Signed [facility] Work Phone: 1(955) 812-296607-31-2025 History and physical note [facility] Medical Records Department [address] [place] [address] H&P Exam - Hospitalist 10/30/24 2323 MR#: [id number] Acct: [id number] Name: ELIN OSHEA Rep #:[id number] : 1985 39 From: Nehemiah Cordova DO PCP: Care Physician,No Primary Status :ADM IN Location: [place] [address]- 1 HPI - General General Date of [...] seasonal allergies; on loratadine who presents to [facility] ER complaining of acute Left-sided weakness [...] status expected to extend beyond 2 midnights. [facility] Medical History (Updated 10/31/24 @ 00:55 [...] 79.3 H, Lymph % (Auto) 15.0 L, Early % (Auto) 4.2, Eos % (Auto) 0.4, [...] 9:01 pm EST on 10/30/24. Reading Location: [facility] Head/Neck CTA 10/30/24 20:52 IMPRESSION: No acute large vessel occlusion. No high grade stenosis. Reading Location: [facility] Chest X-Ray 10/30/24 21:41 IMPRESSION: No acute cardiopulmonary disease. Reading Location: [facility] Assessment & Plan Assessment/Plan (1) [...] artery vasospasm. Give acetaminophen as needed for vojz-dw-vwnirkfz (level 1-5/10) pain or fever. Givemorphine IV [...] 75 minutes. Charges/Coding Visit Charges Inpatient E&M: 19251 Init Hosp L3 10/31/24 0631 Cosigner Signature (if applicable): CC: Dr. Nehemiah Haney, DO; No Primary Care Physician~ Signed [facility]07-31-2025 Discharge summary Author Domenico Silva [facility] Note Date/Time October 31, 2024 1:01 am [facility] Medical Records Department [address] [place] [address] Emergency Department Summary 10/30/24 MR#: [id number] Acct: [id number] Name: ELIN OSHEA Bao Rep #:[id number] : 1985 39 From: Domenico Poon PCP: Care Physician,No Primary Status :ADM IN Location: [place] [address] HPI History of Present Illness Chief Complaint: Stroke Alert Informant: patient and EMS Onset/Context/Timing Onset: Today Context: Sudden Onset Timing: Continuous Quality and Location: Positive for Left Arm Weakness and Left Leg Weakness Onset: Last known well was 1530 today (approximately 5 hours and 15 minutes MEDICAL BILLER/CODER) Worsened by: Nothing Relieved by: Nothing Associated [...] pain. Patient denies any fevers or chills. [facility] Medical History (Updated 10/31/24 @ 00:54 by [...] called. [facility] Patient had a [...] 79.3 H Lymph % (Auto) 15.0 L Early % (Auto) 4.2 Eos % (Auto) 0.4 [...] 9:01 pm EST on 10/30/24. Reading Location: [facility] Head/Neck CTA 10/30/24 20:52 IMPRESSION: No acute large vessel occlusion. No high grade stenosis. Reading Location: [facility] Chest X-Ray 10/30/24 21:41 IMPRESSION: No acute cardiopulmonary disease. Reading Location: [facility] CT scan of the brain [...] sinus rhythm with a rate of 73. [place] interval, QRS interval, and QTc intervals were all normal. [place] was normal. There are no acute ST or T wave changes. Prior EKG tracings: available for review Prior: Unchanged (11/27/2023) Management Discussion w/another healthcare provider: Hospitalist, Screen Machine Operator (Stroke neurologist [facility]) and Radiologist Treatment and Re-Evaluation Narrative: Patient [...] (36), Including time spent:, Discussing w/Patient &/or Family/Masonry Teacher, Discussing w/Consultants, Arranging Admission or Transfer and Performing Direct Patient Care at Bedside Discharge Plan Dx/Rx/DC Orders Clinical Impression: Acute left-sided weakness, Hypertension, Migraine headache, Overweight (BMI 25.0-29.9), Polycythemia Disposition Disposition: Acute Care Hospital [facility] Discharge Date/Time: 10/31/24 00:35 NIHSS NIHSS [...] your Primary Care Provider. Call [facility] ([phone]) or report to the closest Emergency Room. Call 911 if necessary. 10/31/24 0101 <Electronically signed by Domenico Silva DO> Cosigner Signature (if applicable): CC: No Primary Care Physician ~ Signed [facility] Work Phone: 1([phone]) 693-236207-31-2025 Evaluation note* Diagnosis Onset Date Resolution Status Admit Date Acute left-sided weakness acute October 30, 2024 11:35pm ADHD inactive October 30 11:35pm Hypertension inactive October 30 025 11:35pm Migraine headache inactive October 302024 11:35pm Polycythemia inactive October 30 025 11:35pm Ischemic cerebrovascular accident (CVA) deleted October [...] effect of cerebrovascular accident (CVA) chronic A 2024 1:53pm Abnormal LFTs resolved November 1:53pm Insomnia resolved November 10 1:53pm Neck pain on right side resolved A 2024 1:53pm V-tach resolved November 10 1:53pm [...] Stroke acute December 9:44am Acquired polycythemia chronic Dec 9:44am Anxiety chronic December 9:44am 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 (CVA) chronic S eptember 2024 9:44am ADHD inactive December 9:44am Central neuropathic pain inactive December 11, 2024 9:44am Hypertension inactive December 112024 9:44am [facility]raine [facility] 9:44[facility] Acquired polycythemia chronic Sep tember 2024 2:56pm [facility] Work Phone: 1(218) 274-985207-31-2025 Discharge summary [facility] Medical Records Department [address] [place] [address] Emergency Department Summary 10/30/24 MR#: [id number] Acct: [id number] Name: ELIN OSHEA Rep #:[id number] : 1985 39 From: Domenico Poon PCP: Care Physician,No Primary Status :ADM IN Location: [address] History of Present Illness Chief Complaint: Stroke Alert Informant: patient and EMS Onset/Context/Timing Onset: Today Context: Sudden Onset Timing: Continuous Quality and Location: Positive for Left Arm Weakness and Left Leg Weakness Onset: Last known well was 1530 today (approximately 5 hours and 15 minutes MEDICAL BILLER/CODER) Worsened by: Nothing Relieved by: Nothing Associated [...] pain. Patient denies any fevers or chills. [facility] Medical History (Updated 10/31/24 @ 00:54 by [...] called. Upon arrival, patient was evaluated in [facility]. Patient had a left upper and [...] 79.3 H Lymph % (Auto) 15.0 L Early % (Auto) 4.2 Eos % (Auto) 0.4 [...] 9:01 pm EST on 10/30/24. Reading Location: [facility] Head/Neck CTA 10/30/24 20:52 IMPRESSION: No acute large vessel occlusion. No high grade stenosis. Reading Location: [facility] Chest X-Ray 10/30/24 21:41 IMPRESSION: No acute cardiopulmonary disease. Reading Location: [facility] CT scan of the brain [...] anormal sinus rhythm with arate of 73. [place] interval, QRS interval, and QTc intervals were all normal. [place] was normal. There are no acute ST or T wave changes. Prior EKG tracings: available for review Prior: Unchanged (11/27/2023) Management Discussion w/another healthcare provider: Hospitalist, Screen Machine Operator (Stroke neurologist [facility]) and Radiologist Treatment and Re-Evaluation Narrative: Patient [...] (36), Including time spent:, Discussing w/Patient &/or Family/Masonry Teacher, Discussing w/Consultants, Arranging Admission or Transfer and Performing Direct Patient Care at Bedside Discharge Plan Dx/Rx/DC Orders Clinical Impression: Acute left-sided weakness, Hypertension, Migraine headache, Overweight (BMI 25.0-29.9), Polycythemia Disposition Disposition: Acute Care Hospital [facility] Discharge Date/Time: 10/31/24 00:35 NIHSS NIHSS [...] your Primary Care Provider. Call [facility] ([phone]) or report tothe closest Emergency Room. Call 911 if necessary. 10/31/24 0101 Cosigner Signature (if applicable): CC: No Primary Care Physician ~ Signed [facility]07-30-2025 Radiology Diagnostic study note [facility] [address] [place] [address] Chest 1 View MR#: [id number] Acct: [id number] Name: ELIN OSHEA Rep #: [id number] : 1985 F 39 From: Lyndon Hammond MD PCP: Care Physician,No Primary Status: REG ER Study:Chest 1 View Date of Exam: 5 Exam# [id number] Ordering Dr: Domenico Silva DO PROCEDURE: CHEST 1 VIEW 10/30/2024 REASON FOR EXAM: NEURO DEFICIT, ACUTE, STROKE SUSPECTED TECHNIQUE: Frontal view of the chest. COMPARISON: 11/27/2023 FINDINGS: Lungs/Pleura: Clear. Heart/Mediastinum: Normal in size. Bones/Soft tissues: Within normal limits. RAD/Chest 1 View IMPRESSION: No acute cardiopulmonary disease. Reading Location: [id number] CC: Dr. Domenico Silva DO; No Primary Care Physician ~ Label Paster: Signed [facility]07-30-2025 Radiology Diagnostic study note [facility] [address] [place] [address] STROKE CTA Head AND Neck W/Con MR#: [id number] Acct: [id number] Name: ELIN OSHEA Rep #: [id number] : 1985 F 39 From: Taylor De Jesus MD PCP: Care Physician,No Primary Status: REG ER Study:STROKE CTA Head AND Neck W/Con Date of Exam: 10/30/24 Exam# [id number] Ordering Dr: Domenico Silva DO PROCEDURE: STROKE [...] the tip of the basilar. Both proximal QUALITY ASSOCIATE segmentsare patent. There isno large vessel occlusion. There is no enhancing intracranial mass. Shotty cervical lymph nodes are identified. The thyroid gland is heterogeneous. The lung apices demonstrate no pneumothorax. No destructive osseous abnormalities identified. CT/STROKE CTA Head AND Neck W/Con IMPRESSION: No acute large vessel occlusion. No high grade stenosis. Reading Location: [facility] CC: Dr. Domenico Silva DO; No Primary Care Physician ~ Label Paster: Signed [facility]07-30-2025 Radiology Diagnostic study note [facility] [address] [place] [address] STROKE Brain/Head without Cont MR#: [id number] Acct: [id number] Name: ELIN OSHEA Rep #: [id number] : 1985 F 39 From: Taylor De Jesus MD PCP: Care Physician,No Primary Status: REG ER Study:STROKE Brain/Head without Cont Date of Exam: 10/30/24 Exam# [id number] Ordering Dr: Domenico Silva DO PROCEDURE: STROKE [...] 9:01 pm EST on 10/30/24. Reading Location: [facility] CC: Dr. Domenico Silva DO; No Primary Care Physician ~ Label Paster: Signed [facility]05-19-2025 Evaluation note* Diagnosis Onset Date Resolution [...] 11:35pm Hypertension chronic October 30, 025 11:35pm [facility] Work Phone: [phone] 436-622405-19-2025 Evaluation note* Diagnosis Onset Date Resolution Status [...] 2024 11:35pm Hypertension chronic October 30, 11:35pm [facility] Work Phone: 1([phone]) 539-783205-19-2025 Evaluation note* Diagnosis Onset Date Resolution Status [...] Tobacco abuse chronic November 01, 2024 3:18pm [facility] Work Phone: [phone]) 492-536705-19-2025 Evaluation note* Diagnosis Onset Date Resolution Status Admit Date Contusion of right great toe without damage to nail acute August 19, 2024 10:40am Strain of great toe, right acute August 19, 2024 10:40am Acute left-sided weakness acute October 30, 2024 11:35pm Ischemic cerebrovascular accident (CVA) acute October 30, 2024 11:35pm ADHD chronic October 30 11:35pm Hypertension chronic October 30, 2 025 11:35pm Migraine headache chronic October 302024 11:35pm Tobacco abuse chronic October 30, 2024 11:35pm Polycythemia inactive October 30, 2 025 11:35pm Overweight (BMI 25.0-29.9) deleted October [...] 1:09pm Polycythemia inactive November 04, 2024 1:09pm [facility] Work Phone: [phone]) [phone] Evaluation note* Diagnosis Onset Date Resolution Status Admit Date Contusion of right great toe without damage to nail deleted August 19, 2024 10:40am Strain of great toe, right deleted August 19, 2024 10:40am Acute left-sided weakness acute October 30, 2024 11:35pm ADHD chronic October 30 11:35pm Hypertension chronic October 30 11:35pm Migraine headache chronic October 302024 11:35pm [...] November 10, 2024 1:53pm Debility acute November 10, 025 1:53pm Insomnia acute November 10 1:53pm Neck pain on right side acute A ug2024 1:53pm Stroke acute November 10 1:53pm Acquired polycythemia chronic Aug ust 2024 1:53pm ADHD chronic November 10 1:53pm Anxiety chronic November 10 1:53pm 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 (CVA) chronic A ugust 2024 1:53pm Hypertension chronic November 10, 2024 1:53pm Migraine headache chronic November 10, 2024 1:53pm V-tach resolved November 10 1:53pm Vaping nicotine dependence, non-tobacco product resolved November 10, 2024 1:53pm [facility] Work Phone: 1([phone]) 700-350508-26-2024 NoteHNO ID: [id number] Author: VONNIE DICKERSON APRN.CNP Service: ? Author Type: Nurse Practitioner Type: Progress Notes Filed: 11/27/2023 11:37 Note Text: Patient triaged at [facility]. Here today with sob, left arm pain, elevated bp. Bp 190/110. I will refer to ER. Patient declines squad. Patient in no visible distress at time of triage.[facility]08-26-2024 History of Present illness Narrative* Vonnie Dickerson APRN.CNP - 11/27/2023 11:35 AM EDT Patient triaged at [facility]. Here today with sob, left arm pain, elevated bp. Bp 190/110. I will refer to ER. Patient declines squad. Patient in no visible distress at time of triage. documented in this encounterCincinnati Va Medical CenterDischar summary Author Vee Stuart [facility] Note Date/Time November 01, 2024 2:3 0pm [facility] Medical Records Department [address] [place] [address] Instructions for Home/Discharge Instructions 11/01/24 1422 MR#: [id number] Acct: [id number] Name: ELIN OSHEA Boa Rep #:[id number] : 1985 39 From: Vee Stuart MD PCP: Care Physician,No Primary Status :ADM IN Discharge Instructions DC O2, CPAP, BIPAP needs Home O2 Discharge instructions: No Dressing / Incision Discharge Activity: - (Discharging to [facility] rehab) Follow Up Care Test [...] Recorder Preventi (Urgent) Timeframe: 1 Day Facility: [facility] - Location: Cardiovascular Services Ordered By: [...] Care Physician; Mark Garcias MD ~ Signed [facility] Work Phone: Discharge summary Author Netta Domingo [facility] Note Date/Time November 04, 2024 11: 28am [facility] Medical Records Department [address] [place] [address] Discharge Summary 11/04/24 1032 MR#: [id number] Acct: [id number] Name: ELIN OSHEA Rep #:[id number] : 1985 39 From: Netta Domingo DO PCP: Care Physician,No Primary Status :ADM IN Location: [place] [address] Providers Date of Admission: 11/01/24 Date of Discharge: 11/04/24 Primary Care Physician: No Primary Care Phys Consultations 11/04/24 10:09 Consult: Cardiology Routine Consulting Provider: [facility] Reason for Consult: chest pain with abnormal [...] Neut % (Auto) 65.7, Lymph % (Auto) 24.9,Early % (Auto) 8.2, Eos % (Auto) 0.6, Baso % (Auto) 0.4, Absolute Neuts (auto) 7.9 H, Absolute Lymphs (auto) 3.01, Nucleated RBC % 0 11/04/24 09:40: Troponin T High Sens Cancelled Indicators for Scoring Admitted with or Primary Diagnosis of CVA/Stroke: Yes Hx of CVA/Stroke: No Modified Valencia Score MRS Score at time of Evaluation: [...] the right side.) 8. Sensory: 1 - Xorb-ga-tbhfffqo sensory loss; 9. Best Language: 0 - No aphasia; normal 10. Dysarthria: 1 = Zoma-ln-ngrrkvub dysarthria; 11. Extinction and Inattention: 0 - [...] Jerome; Nghia Hdez; Jarred Garg NP; Danielle Ferro PA; Omer Naranjo; Shaun Del Angel; Trav,Luis Chi Discharge Orders/Prescriptions Prescriptions: No Action loratadine [...] Provider] - Charges/Coding Visit Charges Inpatient E&M: 80591 Disch Hosp >30min Hospital Course RU Procedures Transesophageal Echo Summary of Care Provided Minutes Spent on Discharge: 55 Hospital Course: Patient is a 39-year-old female who presented to the emergency department at [facility] on 10/30/2024 complaining of left arm [...] 60%. Bubble contrast study was negative for najbs-ql-ksyy interatrial shunt and no thrombus was detected [...] to the acute inpt rehab unit at [facility] on 11/01/24 for 3 hours of [...] Dr. Eduardo from cardiology who recommended adding uqwtirkbtl22 mg p.o. twice daily. She is going [...] Domingo DO; No Primary Care Physician~ Signed [facility] Work Phone: Evaluation note* Diagnosis Chest pressure- Primary Other chest pain documented in this encounter [facility] CenterEvaluation noteNo assessment information availableBlEmanuel Medical Center Work Phone: Hospital Discharge instructionsAdditional [...] 911 or proceed to the nearest [facility] department[facility] Work Phone: Hospital Discharge instructionsAdditional Instructions Date of Discharge: 11/04/24[facility] Work Phone: Hospital Discharge instructionsAdditional Instructions [...] will need to follow up with the psychiatric therapist (blood doctor) after you leave rehab. Smoking/vaping [...] did not fax these prescriptions to [facility] but, I did write out a prescription. [...] do not hesitate to call me. OFFICE: [phone] CELL: [phone] NURSES STATION ON REHAB: [phone] The patient has a mobility limitation that cannot be sufficiently resolved by using a cane or walker. Use of a w/c will improve the participation in ADLs on a regular basis, in the home and in the community. [facility]: [facility] Phone: Hospital Discharge instructionsAdditional Instructions If [...] are worsening please return to the emergency room.[facility] Work Phone: Progress note Author Shaun De lAngel [facility] Note Date/Time December 30, 2024 4:07pm [facility] [address] [address] OFFICE VISIT Date of Service: 12/30/24 1458 MR#: [id number] Acct: [id number] Name: ELIN OSHEA Rep #: [id number] : 1985 From: Shaun Del Angel MD Age/Sex: 39/F Location: [facility] Status: Signed HPI Subjective Date of Service [...] any previous family history, has stopped smoking. 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 Smoking Status: Former smoker alcohol intake: former [...] MD Cosigner Signature: Date (if applicable) CC: Yuan MANAGER DOCUMENT-C Torri Zapata ~ [facility] Work Phone: Reason for referral (narrative)No reason for referral information availableSutter Delta Medical Center Work Phone: Summary Purpose Family History No Family History Records Found Relationship Condition Age at Onset Recorded Date/T nay mother Hypertension Unknown Depression Unknown Anxiety Unknown Posttraumatic stress disorder Unknown Advance Directives No Advanced Directives Records Found Advance Directive Response Recorded Date/ Time Do you have a Healthcare Power of Buttonhole Facer? No October 30, 2024 9:22pm Advance Directive Response Recorded Date/ Time Do you have a Healthcare Power of Buttonhole Facer? No October 31, 2024 12:41am Advance Directive Response Recorded Date/ Time Do you have a Healthcare Power of Buttonhole Facer? No October 31, 2024 12:41am Do you have a Healthcare Power of Buttonhole Facer? No November 01, 2024 4:45pm Advance Directive Response Recorded Date/ Time Do you have a Healthcare Power of Buttonhole Facer? No October 31, 2024 12:41am Do you have a Healthcare Power of Buttonhole Facer? No November 04, 2024 6:02pm Do you have a Healthcare Power of Buttonhole Facer? No November 01, 2024 4:45pm Advance Directive Response Recorded Date/ Time Do you have a Healthcare Power of Buttonhole Facer? No October 31, 2024 12:41am Do you have a Healthcare Power of Buttonhole Facer? No November 04, 2024 6:02pm Do you have a Healthcare Power of Buttonhole Facer? No November 01, 2024 4:45pm Do you have a Healthcare Power of Buttonhole Facer? No November 13, 2024 11:58am Advance Directive Response Recorded Date/ Time Do you have a Healthcare Power of Buttonhole Facer? No October 31, 2024 12:41am Do you have a Healthcare Power of Buttonhole Facer? No November 04, 2024 6:02pm Do you have a Healthcare Power of Buttonhole Facer? Yes December 26, 2024 12:08pm Name of Medical Power of Buttonhole Facer francheska oshea December 26, 2024 12:08pm Do you have a Healthcare Power of Buttonhole Facer? No November 01, 2024 4:45pm Do you have a Healthcare Power of Buttonhole Facer? No November 13, 2024 11:58am Chief Complaint [...] 2024 8:33am CVA, EVAL FOR UNDERLYING ARRHYTHMIA Augu st [...] 2024 1:09pm Acute left-sided weakness November 10, 2 025 1:53pm Debility November 10, 2024 1: [...] 6MO LABS PRIOR December 30, 2024 2:57pm Chief Complaint Admit Date ISCHEMIC CVA WITH [...] 6MO LABS PRIOR December 30, 2024 2:57pm SCREENING January 16, 2025 5 :00pm CVA RX HERE January 23, 2025 3 :30pm Additional Source Comments Source Comments (unrecognize d section and content) In the event this informatio n is protected by the Federal Confidentiality of Alcohol and Drug Abuse Patient Records regulations: The Federal rules restrict any use of the information to criminally investigate or prosecute any alcohol or drug abuse patient.[facility] Reason for Visit (unrecogniz ed section and content) Reason Comments Shortness of Breath INFORMATION SOURCE (unrecogn ized section and content) DATE CREATED AUTHOR 11/28/2023 [facility] DATE CREATED AUTHOR 'S ORGANIZ ATION 02/12/2025 [facility] Care Teams (unrecognized sec tion [...] End: November 01, 2024 Dr. Lydia Orantes , Other Provider Active St art: October 30, [...] October 31, 2024 Dr. Domenico Silva , Emergency Provider Active Start: October 31, 2024 [...] Active Start: October 31, 2024 Dr. Ajay oJhnson MD Other Provider Active St art: October [...] Active Sta rt: November 01, 2024 Dr. Lediy Mckinnon MD Other Provider Active Start : [...] Provider Active Start: November 01, 2024 Mark Garcais MD Other Provider Active Start: November 01, [...] 2024 End: November 04, 2024 Jarred Garg MANAGER DOCUMENT, MANAGER DOCUMENT-C Other Provider Active Start : November 01, [...] Active Start: November 04, 2024 Jarred Garg MANAGER DOCUMENT, MANAGER DOCUMENT-C Other Provider Active Start : November 04, [...] Active Start: November 04, 2024 Jarred Garg MANAGER DOCUMENT, MANAGER DOCUMENT-C Other Provider Active Start : November 04, [...] 2024 End: November 10, 2024 Dr. Nehemiah Ugaret MD Other Provider Active Start: November 04, [...] 2024 End: November 10, 2024 Angelica Lawson MANAGER DOCUMENT, MANAGER DOCUMENT-C Other Provider Active St art: November 04, [...] Sta rt: November 04, 2024 Angelica Lawson MANAGER DOCUMENT, MANAGER DOCUMENT-C Other Provider Active St art: November 04, [...] Sta rt: November 05, 2024 Angelica Lawson MANAGER DOCUMENT, MANAGER DOCUMENT-C Other Provider Active St art: November 05, [...] Sta rt: November 06, 2024 Angelica Lawson MANAGER DOCUMENT, MANAGER DOCUMENT-C Other Provider Active St art: November 06, [...] Sta rt: November 06, 2024 Angelica Lawson MANAGER DOCUMENT, MANAGER DOCUMENT-C Other Provider Active St art: November 06, [...] Sta rt: November 07, 2024 Angelica Lawson MANAGER DOCUMENT, MANAGER DOCUMENT-C Other Provider Active St art: November 07, [...] Sta rt: November 08, 2024 Angelica Lawson MANAGER DOCUMENT, MANAGER DOCUMENT-C Other Provider Active St art: November 08, [...] Sta rt: November 09, 2024 Angelica Lawson MANAGER DOCUMENT, MANAGER DOCUMENT-C Other Provider Active St art: November 09, [...] Sta rt: November 10, 2024 Angelica Lawson MANAGER DOCUMENT, MANAGER DOCUMENT-C Other Provider Active St art: November 10, [...] Provider Active Sta rt: November 05, 2024 Angelicachristina Lawson MANAGER DOCUMENT, MANAGER DOCUMENT-C Other Provider Active St art: November 05, [...] Sta rt: November 06, 2024 Angelica Lawson MANAGER DOCUMENT, MANAGER DOCUMENT-C Other Provider Active St art: November 06, [...] Sta rt: November 07, 2024 Angelica Lawson MANAGER DOCUMENT, MANAGER DOCUMENT-C Other Provider Active St art: November 07, [...] Sta rt: November 08, 2024 Angelica Lawson MANAGER DOCUMENT, MANAGER DOCUMENT-C Other Provider Active St art: November 08, [...] Sta rt: November 09, 2024 Angelica Lawson MANAGER DOCUMENT, MANAGER DOCUMENT-C Other Provider Active St art: November 09, [...] MD Other Provider Active Start: A ugust 5 Dr. Aaron Crooks MD Other Provider Active Sta rt: November 10, 2024 Dr. Aubrey Saxena DO Other Provider Active Sta rt: November 10, 2024 Angelica Lawosn NP, MANAGER DOCUMENT-C Other Provider Active St art: November 10, [...] Start: November 14, 2024 Dr. Netta Domingo , DO Attending Provider Act brie Start: November 14, 2024 Dr. Netta Domingo , DO Other Provider Active Start: November 14, 2024 Team Status: Active Member Role/Relationship Status Dates No Primary Care Physician Primary Care Provider Active Start: November 18, 2024 Dr. Netta Domingo , DO Admit Provider Active Start: November 18, 2024 Dr. Netta Domingo , DO Attending [...] 22, 2024 Dr. Netta Domingo , DO Other Provider Active Start: November 22, 2024 Team Status: Active Member Role/Relationship Status Dates No Primary Care Physician Primary Care Provider Active Start: November 25, 2024 Dr. Netta Domingo DO Admit Provider Active Start: November 25, 2024 Dr. Netta Domingo , DO Attending [...] November 26, 2024 Dr. Netta Domingo DO Other Provider Active Start: November 26, 2024 Team Status: Active Member Role/Relationship Status Dates No Primary Care Physician Primary Care Provider Active Start: November 28, 2024 Dr. Netta Domingo , Admit Provider Active Start: November 28, 2024 [...] DO Attending Provider Act bire Start: November 12, 2024 Dr. Netta Domingo [...] 22, 2024 Dr. Netta Domingo , DO Other Provider Active Start: November 22, 2024 Team Status: Active Member Role/Relationship Status Dates No Primary Care Physician Primary Care Provider Active Start: November 25, 2024 Dr. Netta Domingo , DO Admit Provider Active Start: November 25, 2024 Dr. Netta Domingo , DO Attending [...] Admit Provider Active Start: December Dr. Netta Dominog DO Attending Provider Active Start: December Dr. [...] December 11, 2024 End: December 11, 2024 Liudmila Prado NP-C Attending Provider Active S tart: December 11, 2024 End: December 11, 2024 Team Status: Active Member Role/Relationship Status Dates Torri CESAR MANAGER DOCUMENT-C Primary care physician Acti ve Team Status: Inactive Member Role/Relationship Status Dates No Primary Care Physician Primary care physician Activ e Start: October 30, 2024 End: November 01, 2024 Dr. Domenico Silva , DO Emergency Depart ent Physician Active Start: October 30, 2024 End: November 01, 2024 Dr. Nehemiah Haney DO Admitting physician Active Start: October 30, 2024 End: November 01, 2024 Dr. Nehemiah Haney DO Nurse Practitioner Active Start: October 30, [...] Levi MD Nurse Practitioner Active Start: October 30, 2024 End: November 01, 2024 Dr. Meme Pepe MD Nurse Practitioner Active St art: October 30, 2024 End: November 01, 2024 Mark Garcias MD Nurse [...] October 31, 2024 Dr. Domenico Silva , Emergency Departm ent Physician Active Start: October [...] tart: October 31, 2024 Dr. Lydia Orantes DO Nurse Practitioner Active Start: October 31, 2024 [...] Haney , DO Nurse Practitioner Active Start: November 01, 2024 David Gale MD Nurse Practitioner Active Start : November 01, 2024 Dr. Ehsan Uriarte MD Nurse Practitioner Active St art: November 01, 2024 Sheeba Rodriguez MD Nurse Practitioner Active S tart: November 01, 2024 Dr. Lydia Orantes , Nurse Practitioner Active Start: November 01, [...] Horton DO Nurse Practitioner Active Start: November 01, [...] 2024 End: November 04, 2024 Jarred Garg MANAGER DOCUMENT, MANAGER DOCUMENT-C Nurse Practitioner Active S tart: November 01, [...] Active Start: November 04, 2024 Jarred Garg MANAGER DOCUMENT, MANAGER DOCUMENT-C Nurse Practitioner Active S tart: November 04, 2024 Danielle Ferro PA, PA Nurse Practitioner Active Start: November 04, 2024 STAN Baker Nurse Practitioner Active St art: November 04, 2024 Dr. Shaun Del Angel MD Nurse Practitioner Active S tart: November 04, 2024 Dr. Kaleb Horta DO [...] Active Start: November 04, 2024 Jarred Garg MANAGER DOCUMENT, MANAGER DOCUMENT-C Nurse Practitioner Active S tart: November 04, [...] 2024 End: November 10, 2024 Angelica Lawson MANAGER DOCUMENT, MANAGER DOCUMENT-C Nurse Practitioner Active Start: November 04, 2024 [...] November 04, 2024 Dr. Kaleb Horta DO Admitting physician [...] Nurse Practitioner Active Start: November 04, 2024 Angeilca Lawson MANAGER DOCUMENT, MANAGER DOCUMENT-C Nurse Practitioner Active Start: November 04, 2024 [...] Active Start: November 05, 2024 Angelica Lawson MANAGER DOCUMENT, MANAGER DOCUMENT-C Nurse Practitioner Active Start: November 05, 2024 [...] Active Start: November 06, 2024 Angelica Lawson MANAGER DOCUMENT, MANAGER DOCUMENT-C Nurse Practitioner Active Start: November 06, 2024 [...] Active Start: November 06, 2024 Angelica Lawson MANAGER DOCUMENT, MANAGER DOCUMENT-C Nurse Practitioner Active Start: November 06, 2024 [...] Active Start: November 07, 2024 Angelica Lawson MANAGER DOCUMENT, MANAGER DOCUMENT-C Nurse Practitioner Active Start: November 07, 2024 [...] November 08, 2024 Dr. Kaleb Horta DO Admitting physician [...] Active Start: November 08, 2024 Angelica Lawson MANAGER DOCUMENT, MANAGER DOCUMENT-C Nurse Practitioner Active Start: November 08, 2024 [...] Start: November 09, 2024 Dr. Aubrey Saxena , Nurse Practitioner Active Start: November 09, 2024 Angelica Lawson MANAGER DOCUMENT, MANAGER DOCUMENT-C Nurse Practitioner Active Start: November 09, 2024 [...] Active Start: November 10, 2024 Angelica Lawson MANAGER DOCUMENT, MANAGER DOCUMENT-C Nurse Practitioner Active Start: November 10, 2024 [...] e Start: December 24, 2024 Torri CESAR NP-C Attending physician Active Start: December 24, 2024 Team Status: Inactive Member Role/Relationship Status Dates Dr. Mary Corbin DO Attending physician Active Start: December 26, 2024 End: December 26, 2024 Dr. Mary Corbin , Emergency Depart ent Physician Active Start: December 26, 2024 End: December 26, 2024 Torri CESAR, MANAGER DOCUMENT-C Primary care physician Active Start: December 26, 2024 End: December 26, 2024 Team Status: Inactive Member Role/Relationship Status Dates Dr. Shaun Del Angel MD Attending physician Active Start: December 30, 2024 End: December 30, 2024 Dr. Netta Domingo DO Referring Provider Active Start: December End: December 30, 2024 Torri CESAR, MANAGER DOCUMENT-C Primary care physician Acti ve Start: December 30, 2024 End: December 30, 2024 Team Status: Active Member Role/Relationship Status Dates Torri CESAR, MANAGER DOCUMENT-C Primary care physician Acti ve Start: December 30, 2024 Dr. Shaun Del Angel MD Attending physician Active Start: December 30, 2024 Dr. Shaun Del Angel MD Referring Provider Active S tart: December 30, 2024 Team Status: Active Member Role/Relationship Status Dates Torri CESAR, MANAGER DOCUMENT-C Primary care physician Acti ve Start: December 31, 2024 ABELARDO Arredondo Attending physician Active Start: December 31, 2024 Team Status: Inactive Member Role/Relationship Status Dates No Primary Care Physician Primary care physician Activ e Start: December 24, 2024 End: December 24, 2024 Torri CESAR, MANAGER DOCUMENT-C Attending physician Active Start: December 24, 2024 End: December 24, 2024 Team Status: Inactive Member Role/Relationship Status Dates Torri CESAR, MANAGER DOCUMENT-C Primary care physician Acti ve Start: December 31, 2024 End: December 31, 2024 Christelle Nicolas NP-Yuan Attending physician Active Start: December 31, 2024 End: December 31, 2024 Team Status: Active Member Role/Relationship Status Dates Torri CESAR, MANAGER DOCUMENT-C Primary care physician Acti ve Start: January 16, 2025 Christelle Nicolas NP-C Attending physician Active Start: January 16, 2025 Christelle Nicolas NP-C Referring Provider Active Start: January 16, 2025 Team Status: Active Member Role/Relationship Status Dates ABELARDO Prieto Primary care physician Acti ve Start: January 23, 2025 ABELARDO Prieto Attending physician Active Start: January 23, 2025 ABELARDO Prieto Referring Provider Active Start: January 23, 2025 Goals (unrecognized section and content) Goals may [...] BE BASED ON THE PRIMARY CLINICAL RECORDS. [facility] [employer], [facility]. provides no warranty or guarantee of the accuracy or completeness of information in this document.
--- NOTE | 2025-03-28 20:48 | RAD_ITS ---
PROCEDURE: CHEST 1 VIEW (PORTABLE) 03/28/2025 REASON FOR EXAM: ELEVATED BLOOD PRESSURE RULE OUT CHF TECHNIQUE: Frontal view of the chest. COMPARISON: 10/30/2024 FINDINGS: Hardware: None. Heart: The heart size is normal. Lungs: The lungs are clear. No pneumothorax or pleural effusion. Bones: The bones are unremarkable. RAD/Chest 1 View (Portable) IMPRESSION: No Acute Findings. Reading [facility]
[2025-03-28 20:52] LABS: Hematocrit 43.4 % (37-47); Hemoglobin 14.5 g/dL (12.0-15.0); Immature Granulocytes Count 0.050 X10^3/uL (0.0-0.0); Mean Corp Hgb Conc 33.4 g/dL (32-36); Mean Corpuscular Volume 85.4 fL (81-99); Mean Platelet Vol. 9.4 fl (6.2-12.0); NRBC Flagged by Analyzer 0 % (0-5); Platelet Count 312 K/mm3 (150-450); RBC Distribution Width CV 11.4 % (11.6-14.6); RBC Distribution Width SD 35.3 fl (35.1-43.9); Red Blood Count 5.08 M/mm3 (4.2-5.4); White Blood Count 11.9 K/mm3 (4.4-11.0)
[2025-03-28 21:00] VITALS: BP 142/93
[2025-03-28 21:09] LABS: Anion Gap 10 (7-18); BUN 11 mg/dL (4-19); BUN/Creat Ratio 15.3 RATIO (10-20); Calcium,Total 9.3 mg/dL (7.6-11.0); Carbon Dioxide 26.1 mmol/L (20.0-29.0); Chloride 104 mmol/L (96-106); Estimated Creatinine Clearance 120.85 ml/min (50-250); Glucose 97 mg/dL (70-99); Potassium 4.1 mmol/L (3.5-5.1)
[2025-03-28 22:22] VITALS: BP 140/94; PULSE 89; RESP 18; TEMP 36.2; O2SAT 99
== END 2025-03-28 22:25 | disposition home or self-care (01) ==
PROVIDERS: Emergency Provider Emergency Medicine; PCP Nurse Practitioner Family; Visit Provider Emergency Medicine
DX: I10 Essential (primary) hypertension (principal); Z79.899 Other long term (current) drug therapy; Z86.73 Personal history of transient ischemic attack (TIA), and cerebral infarction without residual deficits; Z87.891 Personal history of nicotine dependence
CPT/HCPCS: 70450; 71045; 80048; 85025; 93005; 99284; A4216